=== PATIENT | female | born 2000 | race Hispanic/Latino ===

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

== ENCOUNTER 2019-02-19 18:21 | Emergency (ER) | payer SELFPAY ==
--- NOTE | 2019-02-19 19:42 | ER ---
Nurse's Notes [facility] Name: Nona Lee Age: 18 yrs Sex: Female : 2000 Arrival Date: 02/19/2019 Time: 18:31 Bed 10 Private MD: Diagnosis: Conjunctivitis Presentation: 02/19 18:58 Presenting complaint: Patient states: Has been suffering from allergies today, redness, lp1 swelling, tearing to both eyes. Transition of care: patient was not received from another setting of care. Onset of symptoms was February 19, 2019. Risk Assessment: Do you want to hurt yourself or someone else? Patient reports no desire to harm self or others. Initial Sepsis Screen: Does the patient meet any 2 criteria? No. Patient's initial sepsis screen is negative. Does the patient have a suspected source of infection? No. Patient's initial sepsis screen is negative. Care prior to arrival: None. 18:58 Method Of Arrival: Ambulatory lp1 18:58 Acuity: LUBNA 4 lp1 Triage Assessment: 19:02 General: Appears in no apparent distress. Behavior is calm, cooperative. EENT: Eyes lp1 clear drainage noted to both eyes, reddened . VP STRATEGIC PLANNING: 19:00 LMP 02/05/2019 lp1 Historical: - Allergies: 19:02 No Known Allergies; lp1 - Home Meds: 19:02 Claritin Oral [Active]; Zyrtec Oral [Active]; lp1 - PMHx: 19:02 Asthma; lp1 - PSHx: 19:02 clavicle surgey; Tonsillectomy; lp1 - Immunization history:: Adult Immunizations up to date. - Social history:: Smoking status: Patient/guardian denies using tobacco. - Ebola Screening: : No symptoms or risks identified at this time. Screenin:02 Abuse screen: Denies threats or abuse. Denies injuries from another. Nutritional lp1 screening: No deficits noted. Tuberculosis screening: No symptoms or risk factors identified. Fall Risk None identified. Assessment: 19:45 General: Appears in no apparent distress. comfortable, Behavior is calm, cooperative, aj1 appropriate for age. Pain: Complains of pain in right eye and left eye. Neuro: Level of Consciousness is awake, alert, obeys commands, Oriented to person, place, time, situation. Cardiovascular: Patient's skin is warm and dry. Respiratory: Airway is patent Respiratory effort is even, unlabored, Respiratory pattern is regular, symmetrical. GI: No signs and/or symptoms were reported involving the gastrointestinal system. : No signs and/or symptoms were reported regarding the genitourinary system. EENT: redness and tearing noted to bilateral eyes. Derm: No signs and/or symptoms reported regarding the dermatologic system. Skin is pink, warm \T\ dry. normal. Musculoskeletal: No signs and/or symptoms reported regarding the musculoskeletal system. Circulation, motion, and sensation intact. Vital Signs: 19:00 BP 141 / 80; Pulse 93; Resp 18; Temp 98.2; Pulse Ox 98% on R/A; Weight 58.97 kg; Height lp1 5 ft. 2 in. (157.48 cm); Pain 3/10; 19:00 Body Mass Index 23.78 (58.97 kg, 157.48 cm) lp1 Visual Acuity: 19:45 Left Eye Visual acuity 20/20, ; Right Eye Visual acuity 20/20, ; Without Lenses; aj1 ED Course: 18:31 Patient arrived in ED. mr 19:00 Triage completed. lp1 19:00 Arm band placed on left wrist. lp1 19:18 [facility] Staley [facility]. jr8 19:18 Von Weber MD is Attending Physician. jr8 19:26 Ninoska Simental, NORBERTO is Primary Nurse. aj1 19:45 Patient has correct armband on for positive identification. Bed in low position. aj1 19:45 No provider procedures requiring assistance completed. Patient did not have IV access aj1 during this emergency room visit. Administered Medications: 19:49 Drug: Decadron 10 mg Route: PO; lp1 20:22 Follow up: Response: No adverse reaction aj1 Outcome: 19:41 Discharge ordered by . jr8 20:21 Discharged to home ambulatory. aj1 20:21 Condition: good 20:21 Discharge instructions given to patient, Instructed on discharge instructions, follow up and referral plans. medication usage, Demonstrated understanding of instructions, follow-up care, medications, Prescriptions given X 1. 20:22 Patient left the ED. aj1 Signatures: Ninoska Simental RN RN aj1 Nena Knapp mr Jessica Leigh RN RN lp1 Goyo Staley PA PA jr8
--- NOTE | 2019-02-19 19:42 | EDPHYS ---
Physician Documentation [facility] Name: Nona Lee Age: 18 yrs Sex: Female : 2000 Arrival Date: 02/19/2019 Time: 18:31 Bed 10 Private MD: ED Physician Von Weber HPI: 02/19 19:36 This 18 yrs old Female presents to ER via Ambulatory with complaints of Eye jr8 Swelling, Redness of Eye. 19:36 The patient is experiencing redness, tearing. Onset: The symptoms/episode jr8 began/occurred this morning. Associated signs and symptoms: Pertinent negatives: fever, headache, runny nose. Patient does not utilize any form of vision correction. Pt reports itchiness and redness to BARBARA eyes since this morning. 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 - Social history:: Smoking status: Patient/guardian denies using tobacco. - Ebola Screening: : No symptoms or risks identified at this time. ROS: 19:38 Constitutional: Negative for fever, chills, and weight loss, ENT: Negative for injury, jr8 pain, and discharge, Neck: Negative for injury, pain, and swelling, Cardiovascular: Negative for chest pain, palpitations, and edema, Respiratory: Negative for shortness of breath, cough, wheezing, and pleuritic chest pain, Abdomen/GI: Negative for abdominal pain, nausea, vomiting, diarrhea, and constipation, MS/Extremity: Negative for injury and deformity, Skin: Negative for injury, rash, and discoloration, Neuro: Negative for headache, weakness, numbness, tingling, and seizure. 19:38 Eyes: Positive for itching, redness, Negative for blurry vision, photophobia, vision loss, visual disturbance. Exam: 19:38 Visual Acuity: I have reviewed the nursing documentation. jr8 19:38 Constitutional: This is a well developed, well nourished patient who is awake, alert, and in no acute distress. Head/Face: Normocephalic, atraumatic. ENT: Nares patent. No nasal discharge, no septal abnormalities noted. Tympanic membranes are normal and external auditory canals are clear. Oropharynx with no redness, swelling, or masses, exudates, or evidence of obstruction, uvula midline. Mucous membranes moist. Neck: Trachea midline, no thyromegaly or masses palpated, and no cervical lymphadenopathy. Supple, full range of motion without nuchal rigidity, or vertebral point tenderness. No Meningismus. Chest/axilla: Normal chest wall appearance and motion. Nontender with no deformity. No lesions are appreciated. Cardiovascular: Regular rate and rhythm with a normal S1 and S2. No gallops, murmurs, or rubs. Normal PMI, no JVD. No pulse deficits. Respiratory: Lungs have equal breath sounds bilaterally, clear to auscultation and percussion. No rales, rhonchi or wheezes noted. No increased work of breathing, no retractions or nasal flaring. Abdomen/GI: Soft, non-tender, with normal bowel sounds. No distension or tympany. No guarding or rebound. No evidence of tenderness throughout. 19:38 Eyes: Periorbital structures: appear normal, no abrasion, no cellulitis, no ecchymosis, no erythema, Pupils: equal, round, and reactive to light and accomodation, Extraocular movements: intact throughout, Conjunctiva: chemosis, that is mild, in right eye, in left eye, Corneas: are normal, Lids and lashes: appear normal. Vital Signs: 19:00 BP 141 / 80; Pulse 93; Resp 18; Temp 98.2; Pulse Ox 98% on R/A; Weight 58.97 kg; Height lp1 5 ft. 2 in. (157.48 cm); Pain 3/10; 19:00 Body Mass Index 23.78 (58.97 kg, 157.48 cm) lp1 Visual Acuity: 19:45 Left Eye Visual acuity 20/20, ; Right Eye Visual acuity 20/20, ; Without Lenses; aj1 MDM: 19:21 Patient medically screened. [facility] 19:39 Data reviewed: vital signs, nurses notes, and as a result, I will discharge patient. jr8 Data interpreted: Pulse oximetry: on room air is 98 %. Interpretation: normal. Counseling: I had a detailed discussion with the patient and/or guardian regarding: the historical points, exam findings, and any diagnostic results supporting the discharge/admit diagnosis. 02/19 19:36 Order name: Visual Acuity; Complete Time: 20:16 jr8 Administered Medications: 19:49 Drug: Decadron 10 mg Route: PO; lp1 20:22 Follow up: Response: No adverse reaction aj1 Disposition: 21:08 Co-signature as Attending Physician, Von Weber MD. rn Disposition: 02/19/19 19:41 Discharged to Home. Impression: Conjunctivitis. - Condition is Stable. - Discharge Instructions: Allergic Conjunctivitis, Adult, Bacterial Conjunctivitis, Viral Conjunctivitis. - Prescriptions for Gentamicin 0.3 % Ophthalmic Drops - instill 2 drop by OPHTHALMIC route every 4 hours; 1 bottle. - Medication Reconciliation Form, Thank You Letter, Antibiotic Education form. - Follow up: Private Physician; When: 2 - 3 days; Reason: Recheck today's complaints, Re-evaluation by your physician. - Problem is new. - Symptoms are unchanged. Signatures: Ninoska Simental RN RN aj1 Van Tobin MD MD cha Nieto, Roman, MD MD rn Pena, Laura, RN RN lp1 Goyo Staley PA PA jr8 Corrections: (The following items were deleted from the chart) 20:22 19:41 02/19/2019 19:41 Discharged to Home. Impression: Conjunctivitis. Condition is aj1 Stable. Forms are Medication Reconciliation Form, Thank You Letter, Antibiotic Education, Prescription Opioid Use. Follow up: Private Physician; When: 2 - 3 days; Reason: Recheck today's complaints, Re-evaluation by your physician. Problem is new. Symptoms are unchanged. jr8
[2019-02-19] MEDS ORDERED: dexAMETHasone 4 MG TAB ONE (19:46)
[2019-02-19 22:14] VITALS: BP 141/80; TEMP 98.2; O2SAT 98
== END 2019-02-19 20:22 | disposition home or self-care (01) ==
LOC: ER 18:21
DX: H10.9 Unspecified conjunctivitis (principal); J45.909 Unspecified asthma, uncomplicated
CPT/HCPCS: 99283; J8540

== ENCOUNTER 2020-02-18 09:45 | Emergency (ER) | payer OTHER, SELFPAY ==
--- OUTSIDE RECORDS SUMMARY | 2020-02-18 10:00 | XMS REPORT | Continuity of Care Document ---
:2000 Author Organization [facility] t Address [address] [place] [address] [address] [place] [address] Care Team Providers Name Role Phone Leidy León DO Attending Clinician Problems This patient has no known problems. Allergies, Adverse Reactions, Alerts This patient has no known allergies or adverse reactions. Medications This patient has no known medications. Procedures This patient has no known procedures. Encounters Start End Encounter Admission Attending Care Care Encounter Source Date/Time Date/Time Type Type Clinicians Facility Department ID 2019-07-19 2019-07-19 Emergency Mau [facility] [id number] 21:36:16 23:53:00 Monse Bergman [id number] [place] [id number] [place] [id number] Results This patient has no known results.
[2020-02-18] MEDS ORDERED: NA CHLORIDE 0.9% 1,000 ML ONE (10:42)
[2020-02-18 11:03] LABS: Absolute Lymphocytes (CBC) 1.2 K/uL (0.7-4.9); Basophils % 1.2 % (0-1.3); Hematocrit 42.6 % (36.0-45.0); Lymphocytes % 15.3 % (15.3-44.8); RBC Red Blood Cell Count 4.96 M/uL (3.86-4.86)
[2020-02-18 11:08] LABS: BUN Blood Urea Nitrogen 7 mg/dL (7-18); Bicarbonate 25 mmol/L (21-32); Glucose Level 91 mg/dL (74-106); Potassium 3.6 mmol/L (3.5-5.1); Sodium Level 141 mmol/L (136-145)
--- NOTE | 2020-02-18 12:20 | ER ---
Nurse's Notes [facility] Name: Nona Lee Age: 19 yrs Sex: Female : 2000 Arrival Date: 02/18/2020 Time: 09:47 Bed 14 Private MD: Diagnosis: Anorexia;Dehydration Presentation: 02/17 10:03 Chief complaint: Patient states: has been feeling very week and fainted on Monday, iw Monday and today, states she blacks out for a few seconds, not eating much for past 6 months, restrictive eating, not diagnosed with eating disorder. Coronavirus screen: At this time, the client does not indicate any symptoms associated with coronavirus-19. Ebola Screen: Patient negative for fever greater than or equal to 101.5 degrees Fahrenheit, and additional compatible Ebola Virus Disease symptoms Patient denies exposure to infectious person. Patient denies travel to an Ebola-affected area in the 21 days before illness onset. No symptoms or risks identified at this time. Initial Sepsis Screen: Does the patient meet any 2 criteria? No. Patient's initial sepsis screen is negative. Does the patient have a suspected source of infection? No. Patient's initial sepsis screen is negative. Risk Assessment: Do you want to hurt yourself or someone else? Patient reports no desire to harm self or others. Onset of symptoms was February 15, 2020. 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 - Social history:: Smoking status: Patient denies any tobacco usage or history of. - Family history:: not pertinent. - Hospitalizations: : No recent hospitalization is reported. Screenin:15 Abuse screen: Denies threats or abuse. Denies injuries from another. Nutritional ca1 screening: No deficits noted. Tuberculosis screening: No symptoms or risk factors identified. Fall Risk IV access (20 points). Assessment: 10:15 General: Appears in no apparent distress. comfortable, Behavior is calm, cooperative, ca1 appropriate for age. General:. Pain: Denies pain. Neuro: Level of Consciousness is awake, alert, obeys commands, Oriented to person, place, time, situation, Reports dizziness, since Monday. Cardiovascular: Heart tones S1 S2 present Capillary refill < 3 seconds Patient's skin is warm and dry. Respiratory: Airway is patent Respiratory effort is even, unlabored, Respiratory pattern is regular, symmetrical, Breath sounds are clear bilaterally. GI: Abdomen is flat, non-distended, Bowel sounds present X 4 quads. Abd is soft and non tender X 4 quads. : No signs and/or symptoms were reported regarding the genitourinary system. EENT: No signs and/or symptoms were reported regarding the EENT system. Derm: Skin is intact, is healthy with good turgor, Skin is pink, warm \T\ dry. Musculoskeletal: Circulation, motion, and sensation intact. Capillary refill < 3 seconds. 11:10 Reassessment: Patient appears in no apparent distress at this time. Patient and/or ca1 family updated on plan of care and expected duration. Pain level reassessed. Patient is alert, oriented x 3, equal unlabored respirations, skin warm/dry/pink. 12:00 Reassessment: Patient appears in no apparent distress at this time. Patient and/or ca1 family updated on plan of care and expected duration. Pain level reassessed. Patient is alert, oriented x 3, equal unlabored respirations, skin warm/dry/pink. 13:00 Reassessment: Patient appears in no apparent distress at this time. Patient and/or ca1 family updated on plan of care and expected duration. Pain level reassessed. Patient is alert, oriented x 3, equal unlabored respirations, skin warm/dry/pink. Vital Signs: 10:03 BP 128 / 74; Pulse 70; Resp 16; Temp 98.6; Pulse Ox 100% on R/A; iw 11:10 BP 118 / 73; Pulse 64; Resp 18 S; Pulse Ox 100% on R/A; ca1 12:00 BP 128 / 78; Pulse 63; Resp 15 S; Pulse Ox 100% on R/A; ca1 13:00 BP 121 / 71; Pulse 59; Resp 15 S; Pulse Ox 100% on R/A; ca1 ED Course: 09:47 Patient arrived in ED. ag5 10:07 Triage completed. iw 10:08 Tamanna Ribeiro, RN is Primary Nurse. ca1 10:08 Arm band placed on. iw 10:10 Von Weber MD is Attending Physician. rn 10:15 Patient has correct armband on for positive identification. Bed in low position. Call ca1 light in reach. Side rails up X2. Pulse ox on. NIBP on. Door closed. Noise minimized. Lights dimmed. Warm blanket given. 10:35 No provider procedures requiring assistance completed. Initial lab(s) drawn, by me, ca1 sent to lab. Inserted saline lock: 20 gauge in left antecubital area, using aseptic technique. Blood collected. 13:10 IV discontinued, intact, bleeding controlled, No redness/swelling at site. Pressure ca1 dressing applied. Administered Medications: 10:40 Drug: NS 0.9% 1000 ml Route: IV; Rate: 1000 ml; Site: left antecubital; ca1 12:00 Follow up: Response: No adverse reaction; IV Status: Completed infusion; IV Intake: ca1 1000ml Intake: 12:00 IV: 1000ml; Total: 1000ml. ca1 Outcome: 12:19 Discharge ordered by . rn 13:10 Discharged to home ambulatory, with family. ca1 13:10 Condition: stable 13:10 Discharge instructions given to patient, Instructed on discharge instructions, follow up and referral plans. Demonstrated understanding of instructions, follow-up care. 13:17 Patient left the ED. ca1 Signatures: China León RN RN Von Weber MD MD rn Acob, Cheryl, RN RN ca1 Azar Aranda ag5 Corrections: (The following items were deleted from the chart) 19:44 13:30 IV discontinued, intact, bleeding controlled, No redness/swelling at site. ca1 Pressure dressing applied, ca1
--- NOTE | 2020-02-18 12:20 | EDPHYS ---
Physician Documentation [facility] Name: Nona Lee Age: 19 yrs Sex: Female : 2000 Arrival Date: 02/18/2020 Time: 09:47 Bed 14 Private MD: ED Physician Von Weber HPI: 02/17 11:14 This 19 yrs old Female presents to ER via Ambulatory with complaints of rn General Weakness, Nausea/Vomiting. 11:14 This 19 yrs old Female presents to ER via Ambulatory with complaints of rn General Weakness, anorexia. 11:14 Reports generalized weakness, no vomiting/diarrhea, has not been eating much for 6 rn months, mother states as a result of father teasing her about her weight. Takes in very little calories. Doesn't drink much water. Reports syncope over the weekend. . Severity of symptoms: At their worst the symptoms were moderate in the emergency department the symptoms are unchanged. The patient has not experienced similar symptoms in the past. The patient has not recently seen a physician. 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 - Social history:: Smoking status: Patient denies any tobacco usage or history of. - Family history:: not pertinent. - Hospitalizations: : No recent hospitalization is reported. ROS: 11:14 Constitutional: Negative for fever, chills, +30-40 pound weight loss over 6 months rn Eyes: Negative for injury, pain, redness, and discharge, Cardiovascular: Negative for chest pain, palpitations, and edema, Respiratory: Negative for shortness of breath, cough, wheezing, and pleuritic chest pain, Abdomen/GI: Negative for abdominal pain, diarrhea, and constipation, MS/Extremity: Negative for injury and deformity, Skin: Negative for injury, rash, and discoloration, Neuro: Negative for headache, numbness, tingling, and seizure. Exam: 11:14 Constitutional: This is a well developed, well nourished patient who is awake, alert, rn and in no acute distress. Head/Face: Normocephalic, atraumatic. ENT: dry MM Cardiovascular: Regular rate and rhythm. No pulse deficits. Respiratory: No increased work of breathing, no retractions or nasal flaring. Abdomen/GI: Soft, non-tender Skin: Warm, dry MS/ Extremity: Pulses equal, no cyanosis. Neurovascular intact. Full, normal range of motion. Equal circumference. Neuro: Awake and alert, GCS 15, oriented to person, place, time, and situation. Cranial nerves II-XII grossly intact. Motor strength 5/5 in all extremities. Sensory grossly intact. Cerebellar exam normal. Normal gait. Vital Signs: 10:03 BP 128 / 74; Pulse 70; Resp 16; Temp 98.6; Pulse Ox 100% on R/A; iw 11:10 BP 118 / 73; Pulse 64; Resp 18 S; Pulse Ox 100% on R/A; ca1 12:00 BP 128 / 78; Pulse 63; Resp 15 S; Pulse Ox 100% on R/A; ca1 13:00 BP 121 / 71; Pulse 59; Resp 15 S; Pulse Ox 100% on R/A; ca1 MDM: 10:10 Patient medically screened. rn 12:18 Differential Diagnosis anorexia, malnourishment, dehydration. Data reviewed: vital rn signs, nurses notes, lab test result(s), EKG, and as a result, I will discharge patient. Counseling: I had a detailed discussion with the patient and/or guardian regarding: the historical points, exam findings, and any diagnostic results supporting the discharge/admit diagnosis, lab results, the need for outpatient follow up, to return to the emergency department if symptoms worsen or persist or if there are any questions or concerns that arise at home. Special discussion: I discussed with the patient/guardian in detail that at this point there is no indication for admission to the hospital. It is understood, however, that if the symptoms persist or worsen the patient needs to return immediately for re-evaluation. ED course: Had long discussion regarding anorexia/malnourishment and need for quality caloric intake, given IVF, feels better, normal vitals. . 02/17 10:24 Order name: CBC with Diff; Complete Time: 11:12 rn 02/17 10:24 Order name: Basic Metabolic Panel; Complete Time: 11:12 rn 02/17 10:24 Order name: EKG; Complete Time: 10:25 rn 02/17 11:05 Order name: Urine Dipstick--Ancillary (enter results) bd 02/17 11:05 Order name: Urine --Ancillary (enter results) bd 02/17 10:24 Order name: IV Start; Complete Time: 10:35 rn 02/17 10:24 Order name: Urine Dipstick-Ancillary (obtain specimen); Complete Time: 10:41 rn 02/17 10:24 Order name: Urine Test (obtain specimen); Complete Time: 10:41 rn 02/17 10:24 Order name: EKG - Nurse/Tech; Complete Time: 10:52 rn Administered Medications: 10:40 Drug: NS 0.9% 1000 ml Route: IV; Rate: 1000 ml; Site: left antecubital; ca1 12:00 Follow up: Response: No adverse reaction; IV Status: Completed infusion; IV Intake: ca1 1000ml Disposition: 02/18/20 12:19 Discharged to Home. Impression: Anorexia, Dehydration. - Condition is Stable. - Discharge Instructions: Anorexia Nervosa, Dehydration, Adult, Malnutrition. - Medication Reconciliation Form, Thank You Letter, Antibiotic Education, Prescription Opioid Use form. - Follow up: Private Physician; When: As needed; Reason: Recheck today's complaints, Re-evaluation by your physician. - Problem is an ongoing problem. - Symptoms have improved. Signatures: Dispatcher [employer] EDChina Gonzalez RN RN iw Von Weber MD MD rn AcobTamanna RN RN ca1 Corrections: (The following items were deleted from the chart) 13:17 12:19 02/18/2020 12:19 Discharged to Home. Impression: Anorexia; Dehydration. Condition ca1 is Stable. Forms are Medication Reconciliation Form, Thank You Letter, Antibiotic Education, Prescription Opioid Use. Follow up: Private Physician; When: As needed; Reason: Recheck today's complaints, Re-evaluation by your physician. Problem is an ongoing problem. Symptoms have improved. rn
[2020-02-18 13:54] VITALS: TEMP 98.6; O2SAT 100
[2020-02-18 13:56] VITALS: BP 118/73
[2020-02-18 13:58] LABS: Urine Blood TRACE (NEG); Urine Glucose NEGATIVE (NEG); Urine Protein NEGATIVE (NEG); Urine Specific Gravity 1.025 (1.005-1.030); Urine pH 8.5 (5.0-7.0)
--- NOTE | 2020-02-20 07:09 | EKG ---
Test Date: 2020-02-18 Test Time: 10:50:03 Fly Raiser Lockstitch: BARBARA MEASUREMENT RESULTS: Intervals: Rate: 61 KS: 126 QRSD: 84 QT: 392 QTc: 394 [place]: P: -22 KS: 126 QRS: 79 T: 29 INTERPRETIVE STATEMENTS: Normal sinus rhythm ST abnormality, possible digitalis effect Abnormal ECG No previous ECG available for comparison Electronically Signed On 02-20-20 07:04:22 CDT by Andres Ge
== END 2020-02-18 13:17 | disposition home or self-care (01) ==
LOC: ER 09:45
DX: R63.0 Anorexia (principal); E86.0 Dehydration; F41.9 Anxiety disorder, unspecified
CPT/HCPCS: 36415; 80048; 81003; 81025; 85025; 93005; 96360; 99284; J7030

== ENCOUNTER 2020-03-11 06:33 | Day surgery (SDC) | payer OTHER, SELFPAY ==
[2020-03-09 15:49] LABS: Absolute Lymphocytes (CBC) 2.2 K/uL (0.7-4.9); Basophils % 0.8 % (0-1.3); Hematocrit 41.2 % (36.0-45.0); Lymphocytes % 30.2 % (15.3-44.8); MPV 9.6 fL (7.6-11.3); RBC Red Blood Cell Count 4.75 M/uL (3.86-4.86)
[2020-03-09 16:46] LABS: BUN Blood Urea Nitrogen 8 mg/dL (7-18); Bicarbonate 28 mmol/L (21-32); Glucose Level 79 mg/dL (74-106); Potassium 3.6 mmol/L (3.5-5.1); Sodium Level 140 mmol/L (136-145)
--- OUTSIDE RECORDS SUMMARY | 2020-03-11 06:37 | XMS REPORT | Continuity of Care Document ---
:2000 Author Organization [facility] t Address [address] [place] [address] Care Team Providers Name Role Phone Leidy [...] Facility Department ID 2019-07-19 2019-07-19 Emergency Mau VTJOSE R [id number] 21:36:16 23:53:00 Monse Bergman [id number] [place] [id number] [place] [id number] Results This patient has no known results.
[2020-03-11 06:55] LABS: Specific Gravity 1.025 (1.005-1.030)
[2020-03-11] MEDS ORDERED: Ringers Lactate 1,000 ML IV ONE (06:57)
[2020-03-11] MEDS ORDERED: CEFAZOLIN/SWI 1gm 1 GM/10 ML SYR ONE (06:57)
[2020-03-11] MEDS ORDERED: MIDAZOLAM HCL 2 MG/2 ML INJ ONE ×2 (07:27→08:46)
[2020-03-11] MEDS ORDERED: METHYLENE BLUE 0.5% 10 ML AMP ONE (07:47)
--- NOTE | 2020-03-11 08:27 | RAD REPORT ---
EXAM DESCRIPTION: US - Brst,Preop NL Wire Init w/Guid - 03/11/2020 8:19 am CLINICAL HISTORY: NDL LOC X2 MASSESright breast mass COMPARISON: BREAST/AXILLA, COMPLETE dated 02/14/2020 TECHNIQUE: Patient presents for ultrasound-guided needle localization of 2 previously detailed solid breast masses. Consent was obtained as part of the surgical consent. The procedure was discussed in detail with the patient. Preliminary imaging identified the 2 masses. An approximately 11 millimeter mass is present in the pe riareolar 7 o'clock right breast. An adjacent larger 18 millimeter mass is present in the periareolar 8 o'clock right breast. Right breast was prepped and draped in the usual sterile fashion. Needle localization performed from a lateral approach. The smaller more inferiorly positioned mass was localized first. From a lateral a pproach under direct sonographic visualization the skin and deeper tissues were anesthetized with 1% lidocaine. A 5 centimeter [place] mammo lock needle was advanced under ultrasound guidance. The needle penetrated the lateral aspect of the mass and was extended through the medial margin. Hookwire was se t. Also from a lateral approach the second lesion was localized with skin and deeper tissues anesthetize d with 1% lidocaine. A [place] 5 cm mammo lock needle was advanced. The mass penetrated the lateral mar gin an extended through the medial margin. Hookwire was set. Patient tolerated procedure without difficulty. The patient was transferred to the surgical holding a jseus for pending excisional biopsy. IMPRESSION: Successful ultrasound-guided needle localization of 2 right breast masses as detailed.
[2020-03-11] MEDS ORDERED: KETOROLAC 30 MG/ML INJ ONE (08:45)
[2020-03-11] MEDS ORDERED: FENTANYL CITR 100 MCG/2 ML ONE (08:45)
[2020-03-11] MEDS ORDERED: LIDOCAINE 2% MPF 5 ML VIAL ONE (08:45)
[2020-03-11] MEDS ORDERED: propofoL 200 MG/20 ML VIAL IV ONE (08:45)
[2020-03-11] MEDS ORDERED: ONDANSETRON 4 MG/2 ML VIAL ONE (08:46)
[2020-03-11] MEDS ORDERED: dexAMETHasone 4 MG/ML VIAL ONE (08:46)
--- NOTE | 2020-03-11 09:16 | RAD REPORT ---
EXAM DESCRIPTION: US - Breast Pre Op Wire Additional - 03/11/2020 8:19 am CLINICAL HISTORY: NEEDLE LOC X 2 MASSES, preoperative needle localization of 2 lesions COMPARISON: Breast ultrasound February 13 TECHNIQUE: Patient presents for preoperative ultrasound-guided localization of 2 right breast masses in the periareolar region measuring approximately 11 mm and 18 mm. The localization procedure for both masses detailed in the initial report. IMPRESSION: Right breast needle localization x2. Full procedure detailed in the initial lesion repor t.
--- NOTE | 2020-03-11 10:01 | P.BOP ---
Preoperative diagnosis: tender two right breast masses Postoperative diagnosis: same Primary procedure: 1. Excisional biopsy tender R upper outer breast mass 9 o'clock needle loc Secondary procedure: 2. Excisional biopsy tender R lower outer breast mass 7 o'clock needle loc Sales Marketing Director: Nancy Sultana (Tomasz) Estimated blood loss: <10cc Specimen: masses x 2 Findings: as above Anesthesia: General Complications: None Transferred to: Recovery Room Condition: Good
[2020-03-11 10:23] VITALS: O2SAT 100
--- NOTE | 2020-03-11 10:29 | RAD REPORT ---
EXAM DESCRIPTION: US - Surgical Specimen - 03/11/2020 10:11 am FINDINGS: Sonographic evaluation was performed of the breast biopsy specimen that was localized to t he 7 o'clock periareolar right breast. Specimen contains the mass in question.
--- NOTE | 2020-03-11 10:30 | RAD REPORT ---
EXAM DESCRIPTION: US - Surgical Specimen - 03/11/2020 10:11 am FINDINGS: Sonographic evaluation was performed of the breast biopsy specimen obtained in the 9 o'renée ck region of the periareolar right breast. The specimen contains the mass in question.
[2020-03-11] MEDS ORDERED: NA CHLORIDE 0.9% 1,000 ML ONE (10:34)
--- NOTE | 2020-03-11 10:37 | DS ---
Diagnosis: Tender 2 right breast masses. Procedure: Excisional biopsy of right upper quadrant and right lower quadrant breast masses with nee dle localization. Disposition: Home. Activity: As tolerated, no heavy lifting. Plan: Follow up in my office in 1 week. Call for appointment at [phone]. Keep area dry for 48 miguel rs, then may shower. Keep Steri-Strip intact. Medications: Include Tylenol No.3 q.4 hours p.r.n. pain, Bactrim DS p.o. b.i.d. JUAN CARLOS/OLGA Voice ID: [id number] Report ID: [id number]
--- NOTE | 2020-03-11 10:58 | OP ---
Date of Procedure: 03/11/2020 Surgeon: Angel Burgos MD Icu Tech: Nancy Sultana. Preoperative Diagnosis: Tender 2 right breast masses, enlarging. Postoperative Diagnosis: Tender 2 right breast masses, enlarging. Procedures: 1.Excisional biopsy of tender right upper outer quadrant breast mass approximately 9 o'clock needle localized. 2.Excisional biopsy of tender right lower outer quadrant breast mass approximately 7 o'clock needle localized. Specimen: Masses x2. Anesthesia: General plus local. Indications: This is the case of a female, who comes to us with very tender enlarging masses. She h ad experience with masses before grows, very large. These are starting to grow the same way, increas ing in size monthly. She wants them excised. We used a needle localization by radiologist this morn ing to localize the areas of concern. She understands the benefits, alternatives, and risks of biops y which include, but not limited to infection, bleeding, damage to adjacent structures, anesthesia co mplication, nonhealing wound, chronic tenderness, recurrence, VT, and even . She also understan ds this may not relieve the symptoms. She might need more than one surgical intervention. She under stood, signed a consent. Procedure In Detail: The area of concern was previously marked. The patient went this morning to [facility]. Dr. To was kind enough to put 2 different needles to localize 2 different masses . The patient was brought to the OR making sure the needles were intact. The patient was brought to the operating room and placed in supine position. Anesthesia was done without complication. The ar ea was prepped and draped in the usual sterile fashion. We were careful with the needle to make sure when we touch it, we do not dislodge them. After the area was prepped and draped in sterile fashion , we made an incision on the breast, made an incision large enough to be able to accommodate 2 needle s. Incision was carried down to breast tissue. We went to the 7 o'clock mass first. It was well de lineated mass. The mass was removed with the needle, sent to the radiologist. Then, we went for the right upper quadrant about 9-10 o'clock area. Once again, we found the mass very well delineated an d the needle coming once again through the area. At that moment, we sent that as specimen 2. Area w as irrigated and hemostasis was obtained. The area was covered with a combination of 2-0 chromic and a 4-0 PDS and needles within the specimen. The patient tolerated the procedure well. The area was covered with sterile dressings. BOWEN Voice ID: [id number] Report ID: [id number]
[2020-03-11 11:39] VITALS: BP 124/66; TEMP 97.9
== END 2020-03-11 11:39 | disposition home or self-care (01) ==
LOC: OR 06:33
PROVIDERS: ATTEND Surgery
PROC: 0HBT0ZZ Excision of Right Breast, Open Approach (ICD-10-PCS; principal; 2020-03-11 08:15)
DX: D24.1 Benign neoplasm of right breast (principal); Z20.828 Contact with and (suspected) exposure to other viral communicable diseases
CPT/HCPCS: 85025; 80048; 36415; 81025; 88305; 19286; 76098 ×2; 19285; 19125; 19126; U0002; J2704; J1100; J2250; J3010; J0690; J7120; J7030; J2405

== ENCOUNTER 2020-08-30 21:02 | Emergency (ER) | payer OTHER, SELFPAY ==
--- OUTSIDE RECORDS SUMMARY | 2020-08-30 21:05 | XMS REPORT | Continuity of Care Document ---
:2000 Author Organization [facility] t Address [address] [place] [place] [address] Care Team Providers Name Role Phone Leidy [...] Facility Department ID 2019-07-19 2019-07-19 Emergency Mau [facility] [id number] 21:36:16 23:53:00 Monse Bergman [id number] Petty [id number] [place] [id number] [id number] Results This patient has no known results.
[2020-08-30 21:22] LABS: Urine Blood 3+ (Negative); Urine Glucose Negative (Negative); Urine Protein Negative (Negative); Urine Specific Gravity >=1.030 (1.005-1.030)
[2020-08-30 21:26] LABS: Absolute Lymphocytes (CBC) 1.8 K/uL (0.7-4.9); Basophils % 0.8 % (0-1.3); Hematocrit 37.8 % (36.0-45.0); Lymphocytes % 26.1 % (15.3-44.8); MPV 9.2 fL (7.6-11.3); RBC Red Blood Cell Count 4.44 M/uL (3.86-4.86)
[2020-08-30 21:32] LABS: Protime INR 0.96
[2020-08-30 21:52] LABS: ALT/SGPT 31 U/L (12-78); AST/SGOT 16 U/L (15-37); Albumin 3.8 g/dL (3.4-5.0); Alkaline Phosphatase 102 U/L (45-117); BUN Blood Urea Nitrogen 9 mg/dL (7-18); Bicarbonate 19 mmol/L (21-32); Bilirubin Direct < 0.1 mg/dL (0-0.2); Bilirubin Total 0.3 mg/dL (0.2-1.0); Glucose Level 165 mg/dL (74-106); Magnesium 1.9 mg/dL (1.8-2.4); NT PRO-BNP 57 pg/mL (<125); Protein, Total 6.8 g/dL (6.4-8.2); Sodium Level 139 mmol/L (136-145); Troponin (Emerg Dept Use Only) < 0.02 ng/mL (0.0-0.045)
[2020-08-30 21:52] LABS: Barbiturates NEGATIVE (NEGATIVE); Benzodiazepines NEGATIVE (NEGATIVE); Cocaine NEGATIVE (NEGATIVE); METHAMPHETAM NEGATIVE (NEGATIVE); Methadone NEGATIVE (NEGATIVE); Opiates NEGATIVE (NEGATIVE); Phencyclidine NEGATIVE (NEGATIVE); THC Cannibis POSITIVE (NEGATIVE)
[2020-08-30 21:53] LABS: Potassium 2.9 mmol/L (3.5-5.1)
[2020-08-30 21:59] LABS: Urine Specific Gravity/Preg >1.030 (1.005-1.030)
[2020-08-30] MEDS ORDERED: LORazepam 2 MG/ML VIAL ONE (22:00)
--- NOTE | 2020-08-30 23:11 | ER ---
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 Pt states taking pot browny earlier and is unsure of other ingredients are in there. Coronavirus screen: Client denies travel out of the [place] in the last 14 days. Client presents with at least one sign or symptom that may indicate coronavirus-19. Ebola Screen: Patient negative for fever greater than or equal to 101.5 degrees Fahrenheit, and additional compatible Ebola Virus Disease symptoms Patient denies exposure to infectious person. Risk Assessment: Do you want to hurt yourself or someone else? Patient reports no desire to harm self or others. Onset of symptoms was August 30, 2020. 21:04 Method Of Arrival: EMS: [facility] 21:04 Acuity: LUBNA 3 21:07 Initial Sepsis Screen: Does the patient meet any 2 criteria? HR > 90 bpm. Does the patient have a suspected source of infection? No. Patient's initial sepsis screen is negative. 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 - Social history:: Smoking status: Patient denies any tobacco usage or history of. Screenin:09 Abuse screen: Denies threats or abuse. Denies injuries from another. Nutritional wh screening: No deficits noted. Tuberculosis screening: No symptoms or risk factors identified. Fall Risk None identified. 21:46 VAN Screening: Arm Drift: Patient shows no arm weakness. Visual Disturbance: No visual wh disturbance noted. Aphasia: No aphasia noted. Neglect: No neglect noted. Assessment: 21:10 General: Appears in no apparent distress. Behavior is anxious. Pain: Complains of pain wh in chest Quality of pain is described as pressure. Neuro: Level of Consciousness is awake, alert, obeys commands, Oriented to person, place, time, situation, Appropriate for age. Cardiovascular: Capillary refill < 3 seconds Rhythm is sinus tachycardia. Cardiovascular: Reports palpitations. Respiratory: Airway is patent Respiratory effort is even, unlabored, Respiratory pattern is regular, symmetrical. GI: Abdomen is flat, non-distended. : No signs and/or symptoms were reported regarding the genitourinary system. EENT: No signs and/or symptoms were reported regarding the EENT system. Derm: Skin is intact, is healthy with good turgor, Skin is pink, warm \T\ dry. normal. Musculoskeletal: Circulation, motion, and sensation intact. 21:30 Reassessment: Provider at bedside assessing Pt when Pt C/O left sided weakness, Code Stroke was activated. 21:40 Reassessment: patient sent to CT scan. [facility] 22:00 Reassessment: MD Sosa at bedside assessing Pt. 08/31 00:13 Reassessment: Patient appears in no apparent distress at this time. Patient and/or family updated on plan of care and expected duration. Pain level reassessed. Patient is alert, oriented x 3, equal unlabored respirations, skin warm/dry/pink. Report given to Judit THORNTON. Vital Signs: 08/30 21:07 BP 133 / 82; Pulse 104; Resp 20; Temp 98.2; Pulse Ox 100% ; Weight 54.43 kg; Height 5 wh ft. 2 in. (157.48 cm); 22:00 BP 137 / 67; Pulse 114; Resp 18; Pulse Ox 100% on R/A; 23:00 BP 137 / 66; Pulse 115; Resp 18; Pulse Ox 100% on R/A; 08/31 00:13 BP 124 / 62; Pulse 113; Resp 18; Pulse Ox 100% on R/A; 08/30 21:07 Body Mass Index 21.95 (54.43 kg, 157.48 cm) NIH Stroke Scale Scores: 08/30 21:46 NIHSS Score: 0 ED Course: 21:04 Patient arrived in ED. 21:06 Triage completed. 21:07 Raymundo Rose PA is PHCP. [facility] 21:07 Guanako Sosa MD is Attending Physician. [facility] 21:09 Jayla Brewer, RN is Primary Nurse. 21:10 Patient has correct armband on for positive identification. Bed in low position. Call light in reach. Side rails up X 1. desk monitor on. Pulse ox on. NIBP on. 21:10 Arm band placed on right wrist. 21:15 Inserted saline lock: 22 gauge in right antecubital area, using aseptic technique. [facility] Blood collected. 21:28 No provider procedures requiring assistance completed. [facility] 21:42 XRAY Chest (1 view) In Process Unspecified. EDMS 21:49 CT Stroke Brain w/o Contrast In Process Unspecified. EDMS 23:01 Initiated transfer at [facility] with Anne Marie Dockery. Call was connected to HARDEEP Mann, provider of pt for further questioning regarding the diagnosis. 23:08 Anne Marie Dockery called back with admin approval. The pt is going to [facility] tt3 ER. The accepting physician is Dr. Hawley. Nurse to call report to . Face sheet and MOT faxed to per Anne Marie's request. 08/31 00:36 Patient transferred, IV remains in place. Administered Medications: 08/30 21:59 Drug: Ativan (LORazepam) 1 mg Route: IVP; Site: right antecubital; [facility] 08/31 00:14 Follow up: Response: No adverse reaction; RASS: Alert and Calm (0) 08/30 21:59 Drug: K-Lyte (potassium) Effervescent Tablet 50 mEq Route: PO; [facility] 08/31 00:14 Follow up: Response: No adverse reaction Outcome: 08/30 23:11 ER care complete, transfer ordered by . [facility] 08/31 00:35 Transferred by ground EMS to [facility], Transfer form completed. X-rays sent w/ patient. Note: Report given to [facility] Condition: stable Instructed on the need for transfer. 00:37 Patient left the ED. NIH Stroke Scale - NIH Stroke Score Date: 08/30/2020 Time: 21:46 Total Score = 0 1a. Level of Consciousness (LOC) - 0(Alert) 1b. Level of Consciousness (LOC) (Year \T\ Age) - 0(Both) 1c. LOC Commands (Open \T\ Closes Eyes/Chemist Intern) - 0(Both) 2. Best Gaze (Lateral Gaze Paresis) - 0(Normal) 3. Visual Field Loss - 0(No visual loss) 4. Facial Palsy - 0(Normal) 5a. Left Arm: Motor (10-second hold) - 0(No drift) 5b. Right Arm: Motor (10-second hold) - 0(No drift) 6a. Left Leg: Motor (5-second hold - always test supine) - 0(No drift) 6b. Right Leg: Motor (5-second hold - always test supine) - 0(No drift) 7. Limb Ataxia (finger/nose \T\ heel/ruggiero - test with eyes open) - 0(Absent) 8. Sensory Loss (pinprick arms/legs/face) - 0(Normal) 9. Best Language: Aphasia (description/naming/reading) - 0(No aphasia) 10. Dysarthria (speech clarity - read or repeat words) - 0(Normal) 11. Extinction and Inattention (visual/tactile/auditory/spatial/personal) - 0(No abnormality) Initials: Signatures: Dispatcher [employer] Raymundo Sosa PA PA jmm Habalo, Winsy, RN RN Joseluis Lee RN RN [facility] Ramon Borrero tt3
--- NOTE | 2020-08-30 23:12 | EDPHYS ---
Physician Documentation [facility] Name: Nona Lee Age: 20 yrs Sex: Female : 2000 Arrival Date: 08/30/2020 Time: 21:04 Bed 2 Private MD: ED Physician Guanako Sosa HPI: 08/30 21:07 This 20 yrs old Female presents to ER via EMS with complaints of Palpitations. jmm 21:07 The patient presents with a history of heart racing. Onset: The symptoms/episode jmm began/occurred acutely, at 19:00. Duration: The patient or guardian reports a single episode, that is still ongoing. Modifying factors: The symptoms are aggravated by nothing. The symptoms are alleviated by nothing. This is a 20 year old female with a history of anxiety, asthma that presents to the ED with complaints of chest pressure, palpitations, and tingling/numbness to the left side of her body. Symptoms began at 7 pm. . 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 - Social history:: Smoking status: Patient denies any tobacco usage or history of. ROS: 21:07 Constitutional: Negative for fever, chills, and weight loss. jmm 21:07 Cardiovascular: Positive for chest pain, palpitations. 21:07 Neuro: Positive for tingling. 21:07 All other systems are negative. Exam: 21:07 Head/Face: atraumatic. Eyes: EOMI, no conjunctival erythema appreciated ENT: Moist jmm Mucus Membranes Neck: Trachea midline, Supple Chest/axilla: Normal chest wall appearance and motion. 21:07 Respiratory: Normal respirations, no respiratory distress appreciated Abdomen/GI: Non distended, soft Back: Normal ROM Skin: General appearance color normal MS/ Extremity: Moves all extremities, no obvious deformities appreciated, no edema noted to the lower extremities 21:07 Constitutional: The patient appears alert, awake, anxious. 21:07 Cardiovascular: Rate: tachycardic, Rhythm: regular. 21:07 Neuro: Orientation: is normal, Mentation: is normal, Memory: is normal. 21:07 Psych: Behavior/mood is pleasant, cooperative. Vital Signs: 21:07 BP 133 / 82; Pulse 104; Resp 20; Temp 98.2; Pulse Ox 100% ; Weight 54.43 kg; Height 5 wh ft. 2 in. (157.48 cm); 22:00 BP 137 / 67; Pulse 114; Resp 18; Pulse Ox 100% on R/A; wh 23:00 BP 137 / 66; Pulse 115; Resp 18; Pulse Ox 100% on R/A; 08/31 00:13 BP 124 / 62; Pulse 113; Resp 18; Pulse Ox 100% on R/A; 08/30 21:07 Body Mass Index 21.95 (54.43 kg, 157.48 cm) NIH Stroke Scale Scores: 08/30 21:46 NIHSS Score: 0 MDM: 21:36 Patient medically screened. [facility] 23:07 Data reviewed: vital signs, nurses notes. Counseling: I had a detailed discussion with bessy the patient and/or guardian regarding: the historical points, exam findings, and any diagnostic results supporting the discharge/admit diagnosis, lab results, radiology results, the need to transfer to another facility. ED course: I discussed the patient with Dr. Roberto whom accepted the [facility] neurosurgery. 23:13 ED course: Family requests [facility] for transfer. [facility] 08/30 21:07 Order name: Basic Metabolic Panel; Complete Time: 21:55 08/30 21:07 Order name: CBC with Diff; Complete Time: 21:44 08/30 21:07 Order name: LFT's; Complete Time: 21: 08/30 21:07 Order name: Magnesium; Complete Time: 21:55 08/30 21:07 Order name: NT PRO-BNP; Complete Time: 21:55 08/30 21:07 Order name: PT-INR; Complete Time: 21:59 08/30 21:07 Order name: Troponin (emerg Dept Use Only); Complete Time: 21:55 08/30 21:07 Order name: UDS; Complete Time: 21:55 08/30 21:22 Order name: Urine Dipstick-Ancillary; Complete Time: 21:41 [facility] 08/30 21:45 Order name: Urine --Ancillary (enter results); Complete Time: 22:02 tt3 08/30 21:47 Order name: D-Dimer; Complete Time: 21:59 EDMS 08/30 23:58 Order name: SARS-COV-2 RT PCR; Complete Time: 00:12 EDMS 08/30 21:07 Order name: XRAY Chest (1 view) 08/30 21:07 Order name: EKG; Complete Time: 21:09 08/30 21:07 Order name: Cardiac monitoring; Complete Time: 21:18 08/30 21:07 Order name: EKG - Nurse/Tech; Complete Time: 21:18 08/30 21:07 Order name: IV Saline Lock; Complete Time: 21: 08/30 21:07 Order name: Labs collected and sent; Complete Time: : 08/30 21:07 Order name: O2 Per Protocol; Complete Time: 21: 08/30 21:07 Order name: O2 Sat Monitoring; Complete Time: 21: 08/30 21:07 Order name: Urine Dipstick-Ancillary (obtain specimen); Complete Time: : 08/30 21:07 Order name: Urine Test (obtain specimen); Complete Time: : 08/30 21:37 Order name: CT Stroke Brain w/o Contrast [facility] Administered Medications: 21:59 Drug: Ativan (LORazepam) 1 mg Route: IVP; Site: right antecubital; mg2 08/31 00:14 Follow up: Response: No adverse reaction; RASS: Alert and Calm (0) 08/30 21:59 Drug: K-Lyte (potassium) Effervescent Tablet 50 mEq Route: PO; mg2 08/31 00:14 Follow up: Response: No adverse reaction Disposition: 04:24 Co-signature as Attending Physician, Guanako Sosa MD. [email or web address] Disposition: 08/30/20 23:11 Transfer ordered to [facility]. Diagnosis are Paresthesias, Posterior Fossa Cyst, Cerebellar Mass Effect. - Reason for transfer: Higher level of care. - Accepting physician is Dr. Jean Hawley. - Condition is Stable. - Problem is new. - Symptoms are unchanged. NIH Stroke Scale - NIH Stroke Score Date: 08/30/2020 Time: 21:46 Total Score = 0 1a. Level of Consciousness (LOC) - 0(Alert) 1b. Level of Consciousness (LOC) (Year \T\ Age) - 0(Both) 1c. LOC Commands (Open \T\ Closes Eyes/Able Bodied Tankerman) - 0(Both) 2. Best Gaze (Lateral Gaze Paresis) - 0(Normal) 3. Visual Field Loss - 0(No visual loss) 4. Facial Palsy - 0(Normal) 5a. Left Arm: Motor (10-second hold) - 0(No drift) 5b. Right Arm: Motor (10-second hold) - 0(No drift) 6a. Left Leg: Motor (5-second hold - always test supine) - 0(No drift) 6b. Right Leg: Motor (5-second hold - always test supine) - 0(No drift) 7. Limb Ataxia (finger/nose \T\ heel/ruggiero - test with eyes open) - 0(Absent) 8. Sensory Loss (pinprick arms/legs/face) - 0(Normal) 9. Best Language: Aphasia (description/naming/reading) - 0(No aphasia) 10. Dysarthria (speech clarity - read or repeat words) - 0(Normal) 11. Extinction and Inattention (visual/tactile/auditory/spatial/personal) - 0(No abnormality) Initials: Signatures: Dispatcher [employer] EDWV Raymundo Rose PA PA Jayla Gardiner RN RN Joseluis Lee RN RN [facility] Guanako Sosa MD MD [email or web address] Corrections: (The following items were deleted from the chart) 08/30 21:45 21:41 D-DIMER+COAG.LAB.BRZ ordered. EDMS EDMS 22:48 22:18 CORONAVIRUS+MR.LAB.BRZ ordered. EDMS EDMS 08/31 00:37 08/30 23:11 08/30/2020 23:11 Transfer ordered to [facility]. Diagnosis is Paresthesias; Posterior Fossa Cyst; Cerebellar Mass Effect. Reason for transfer: Higher level of care. Accepting physician is Dr. Jean Hawley. Condition is Stable. Problem is new. Symptoms are unchanged. [facility]
[2020-08-31 01:02] VITALS: TEMP 98.2; O2SAT 100
[2020-08-31 01:06] VITALS: BP 124/62
--- NOTE | 2020-08-31 08:31 | RAD REPORT ---
EXAM DESCRIPTION: RAD - Chest Single View - 08/30/2020 9:42 pm CLINICAL HISTORY: CHEST PAIN Chest pain. COMPARISON: No comparisons FINDINGS: Portable technique limits examination quality. The lungs are grossly clear. The heart is normal in size. Hardware plate noted right clavicle. IMPRESSION: No acute intrathoracic process suspected.
--- NOTE | 2020-08-31 10:47 | EKG ---
Test Date: 2020-08-30 Test Time: 21:03:14 Community Advocate: MEASUREMENT RESULTS: Intervals: Rate: 121 UT: 122 QRSD: 80 QT: 288 QTc: 408 [place]: P: 73 UT: 122 QRS: 87 T: -59 INTERPRETIVE STATEMENTS: Sinus tachycardia ST & T wave abnormality, consider inferior ischemia ST & T wave abnormality, consider anterolateral ischemia Abnormal ECG Compared to ECG 02/18/2020 10:50:03 Possible ischemia now present Sinus rhythm no longer present ST (T wave) deviation still present Electronically Signed On 08-31-20 10:46:35 CDT by Andres Ge
--- NOTE | 2020-08-31 10:47 | EKG ---
Test Date: 2020-08-30 Test Time: 22:28:59 Cost Clerk: MEASUREMENT RESULTS: Intervals: Rate: 109 ID: [id number] QRSD: 106 QT: 356 QTc: 479 [place]: P: 13 ID: [id number] QRS: -65 T: 25 INTERPRETIVE STATEMENTS: Sinus tachycardia Left anterior fascicular block Possible Anterolateral infarct, age undetermined Abnormal ECG Compared to ECG 08/30/2020 21:03:14 Left anterior fascicular block now present Myocardial infarct finding now present ST (T wave) deviation no longer present Possible ischemia no longer present Electronically Signed On 08-31-20 10:46:33 CDT by Andres Ge
--- NOTE | 2020-08-31 11:54 | RAD REPORT ---
EXAM DESCRIPTION: Ct Stroke Brain Wo Cont CLINICAL HISTORY: 20-year-old female with left-sided weakness. COMPARISON: None. TECHNIQUE: CT brain without contrast. This exam was performed according to our departmental dose opt imization program which includes use of automated exposure control, adjustment of the mA and/or kV ac cording to patient size and/or use of iterative reconstruction technique. FINDINGS: Large volume of cystic type hypoattenuation is identified at the level of the posterior fo ssa measuring 7.9 x 4.1 cm in transverse dimension and measuring approximately 5 cm in craniocaudal d imension. The collection is CSF in attenuation. There is mild remodeling of the adjacent calvarium an d small size of the LEFT cerebellum suggesting sequela of congenital injury or arachnoid cyst. Focal evaluation with MRI is recommended. Some mild mass effect on the cerebellum and LEFT perimesencephalic cistern. Additionally, there is descent of the cerebellar tonsils below the level of the foramen magnum by anderson roximately 16 mm suggestive of Chiari malformation. The ventricles, sulci, and cisterns are symmetric and unremarkable. The mckenzie-white matter different iation is preserved. There is no mass effect, midline shift, intra- or extra-axial fluid collection /acute hemorrhage. The osseous structures are unremarkable. The paranasal sinuses and mastoid air cells are clear. IMPRESSION: 1. No acute intracranial abnormalities. 2. Large volume of cystic type hypoattenuation is identified at the level of the posterior fossa me asuring 7.9 x 4.1 cm in transverse dimension and measuring approximately 5 cm in craniocaudal dimensi on. There is mild remodeling of the adjacent calvarium and small size of the LEFT cerebellum suggesti ng sequela of congenital injury or arachnoid cyst. Follow-up evaluation with MRI pre and postcontrast is recommended. 3. Additionally, there is descent of the cerebellar tonsils below the level of the foramen magnum b y approximately 16 mm suggestive of Chiari malformation. Focal evaluation with MRI is recommended. Electronically signed by: Jessica Lundy MD 08/30/2020 10:03 PM CDT Due to temporary technical issues with the PACS/Fluency reporting system, reports are being signed by the in house radiologist without review as a courtesy to ensure prompt reporting. The interpreting r adiologist is fully responsible for the content of the report.
== END 2020-08-31 00:37 | disposition short-term general hospital (02) ==
LOC: ER 21:02
DX: G93.0 Cerebral cysts (principal); G93.89 Other specified disorders of brain; Z20.822 Contact with and (suspected) exposure to COVID-19
CPT/HCPCS: 93005 ×2; 85025; 80048; 36415; 83735; 81025; 85610; 85379; 80076; 80307 ×8; 81003; 84484; 83880; 70450; 71045; U0003; 96374; 99285

== ENCOUNTER 2021-04-21 00:08 | Emergency (ER) | payer SELFPAY ==
--- OUTSIDE RECORDS SUMMARY | 2021-04-21 00:10 | XMS REPORT | Continuity of Care Document ---
:2000 Author Organization [facility] t Address [facility] [place] [address] Care Team Providers Name Role Phone PCP, DOES NOT HAVE A Primary Care Physician Unavailable GABRIEL Attending Clinician Unavailable Gui ALVARADO Attending Clinician Mariaelena RUIZ Attending Clinician Unavailable Leidy León DO Attending Clinician YOHANNES L Admitting Clinician Unavailable Advance Directives Directive Decision Effective Termination Comments Source Date Date Healthcare Agents on N/A Univ ersity FileNameRelation[facility] Agent Medical RelationshipCommunicationMarcleburne community hospital [facility] homel [facility] - Legal [phone] (Mobile) Problems Condition Condition Condition Status Onset Resolution Last Treating Co mments Source Name Details Category Date Date Treatment Clinician Date Numbness Numbness Disease Active Unive rs and and 617 ity of tingling tingling 00:00: [place] in left in left 00 Medical arm arm Branch 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 cyst 00 [place] Numbness Numbness Disease Active Unive rs 5-04 ity of 00:00: [place] 00 Medical Branch 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 00:00: [place] 00 Medical Branch Allergies, Adverse Reactions, Alerts Allergy Allergy Status Severity Reaction(s) Onset Inactive Treating Comm ents Source Name Type Date Date Clinician NO KNOWN Drug Active Univers ALLERGIE Class ity of [facility] [place] [facility] [place] Social History Social Habit Start Date Stop Date Quantity Comments Source Tobacco use and 2020-09-07 2020-09-07 Never used [place] [facility] exposure 00:00:00 00:00:00 Medical Branch Education 2020-09-07 2020-09-07 12 [facility] 00:00:00 00:00:00 Medical Branch Sex Assigned At [birth year] [facility] 00:00:00 00:00:00 Medical Branch Smoking Status Start Date Stop Date Source Never smoker [facility] Medical Branch Medications Ordered Filled Start Stop Current Ordering Indication Dosage Frequency Signature Comments Components Source Medication Medication Date Date Medication? Clinician (SIG) Name Name levETIRAcet Yes [id number] 750mg Take 1 Univers am (KEPPRA) 909 tablet by ity of 750 mg 00:00: mouth 2 [place] tablet 00 (two) Medical times Branch daily. levETIRAcet Yes [id number] 750mg Take 1 Univers am (KEPPRA) 9-09 tablet by ity of 750 mg 00:00: mouth 2 [place] tablet 00 (two) Medical times Branch daily. ondansetron Yes [id number] 4mg Take 1 Univers (ZOFRAN 6-23 tablet by ity of ODT) 4 mg 00:00: mouth [place] disintegrat 00 every 8 Medic al ing tablet (eight) Branch hours as needed for Nausea and Vomiting (N/V). ondansetron Yes [id number] 4mg Take 1 Univers (ZOFRAN 6-23 tablet by ity of ODT) 4 mg 00:00: mouth [place] disintegrat 00 every 8 Medic al ing tablet (eight) Branch hours as needed for Nausea and Vomiting (N/V). acetaminoph Yes [id number] 650mg Take 2 Univers en 325 mg 6-20 tablets by ity of tablet 00:00: mouth [place] 00 every 6 Medical (six) Branch hours as needed for Pain (scale 1-3) or Temp > 38.5 C. acetaminoph Yes [id number] 650mg Take 2 Univers en 325 mg 6-20 tablets by ity of tablet 00:00: mouth [place] 00 every 6 Medical (six) Branch hours as needed for Pain (scale 1-3) or Temp > 38.5 C. Procedures This patient has no known procedures. Encounters Start End Encounter Admission Attending Care Care Encounter Source Date/Time Date/Time Type Type Clinicians Facility Department ID 2021-04-19 2021-04-19 [id number] [facility] 12:11:00 12:11:00 berny FAUSTINy of [facility] [place] [facility] 2021-03-26 2021-03-26 Telephone Gui [facility] [id number] Univers 00:00:00 00:00:00 [facility] [id number] it y of CLEAR [id number] [facility] s BUCKEYE [id number] [place] [address] Branch OFFICE BUILDING 2021-03-16 2021-03-16 Telephone Gui [facility] [id number] [facility] 00:00:00 00:00:00 [facility] [id number] ity of [place] [id number] [facility] [id number] [place] [address] Branch 2020-08-31 2020-08-31 Emergency Elizabeth RUIZ [facility] [address] [facility] 00:51:00 11:46:00 ALBERT 2019-07-19 2019-07-19 Emergency Mau [facility] [id number] 21:36:16 23:53:00 Monse Bergman [id number] [place] [id number] [place] [id number] Results This patient has no known results.
[2021-04-21 01:22] LABS: Absolute Lymphocytes (CBC) 2.7 K/uL (0.7-4.9); Hematocrit 38.8 % (36.0-45.0); Lymphocytes % 30.8 % (15.3-44.8); MPV 9.1 fL (7.6-11.3); RBC Red Blood Cell Count 4.57 M/uL (3.86-4.86)
[2021-04-21 01:28] LABS: BUN Blood Urea Nitrogen 9 mg/dL (7-18); Bicarbonate 25 mmol/L (21-32); Glucose Level 107 mg/dL (74-106); Potassium 3.4 mmol/L (3.5-5.1); Sodium Level 142 mmol/L (136-145)
[2021-04-21] MEDS ORDERED: POTASSIUM CL SA 10 MEQ TAB PO ONE (01:36)
[2021-04-21 01:38] LABS: Urine Blood Negative (Negative); Urine Glucose Negative (Negative); Urine Protein Negative (Negative)
--- NOTE | 2021-04-21 02:05 | EDPHYS ---
Physician Documentation [facility] Name: Nona Lee Age: 20 yrs Sex: Female : 2000 Arrival Date: 04/21/2021 Time: 00:12 Bed 6 Private MD: BENITO Physician Van Tobin HPI: 04/21 01:06 This 20 yrs old Female presents to ER via EMS with complaints of seizure. jr8 01:06 This is a 20-year-old female that presented to the emergency room with onset of seizure jr8 just prior to arrival. Patient has a history of focal seizures and is currently on Keppra twice daily for them. 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 Patient stated that she will occasionally have breakthrough seizure but tonight mother stated that the seizure was different. Stated that she had focal shaking followed by grand mal like activity. Patient's mother also stated that she had mild postictal stage. Patient now back to baseline and without any complaints. Denies recent infections, trauma, headache or other neurologic findings.. 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 - Social history:: Smoking status: Patient denies any tobacco usage or history of. Patient/guardian denies using alcohol, street drugs. ROS: 01:06 Eyes: Negative for injury, pain, redness, and discharge, ENT: Negative for injury, jr8 pain, and discharge, Neck: Negative for injury, pain, and swelling, Cardiovascular: Negative for chest pain, palpitations, and edema, Respiratory: Negative for shortness of breath, cough, wheezing, and pleuritic chest pain, Abdomen/GI: Negative for abdominal pain, nausea, vomiting, diarrhea, and constipation, Back: Negative for injury and pain, MS/Extremity: Negative for injury and deformity, Skin: Negative for injury, rash, and discoloration. 01:06 Neuro: Positive for seizure activity. Exam: :06 Constitutional: This is a well developed, well nourished patient who is awake, alert, jr8 and in no acute distress. Eyes: Pupils equal round and reactive to light, extra-ocular motions intact. Lids and lashes normal. Conjunctiva and sclera are non-icteric and not injected. Cornea within normal limits. Periorbital areas with no swelling, redness, or edema. ENT: Nares patent. No nasal discharge, no septal abnormalities noted. Tympanic membranes are normal and external auditory canals are clear. Oropharynx with no redness, swelling, or masses, exudates, or evidence of obstruction, uvula midline. Mucous membranes moist. Neck: Trachea midline, no thyromegaly or masses palpated, and no cervical lymphadenopathy. Supple, full range of motion without nuchal rigidity, or vertebral point tenderness. No Meningismus. Cardiovascular: Regular rate and rhythm with a normal S1 and S2. No gallops, murmurs, or rubs. Normal PMI, no JVD. No pulse deficits. Respiratory: Lungs have equal breath sounds bilaterally, clear to auscultation and percussion. No rales, rhonchi or wheezes noted. No increased work of breathing, no retractions or nasal flaring. Abdomen/GI: Soft, non-tender, with normal bowel sounds. No distension or tympany. No guarding or rebound. No evidence of tenderness throughout. Back: No spinal tenderness. No costovertebral tenderness. Full range of motion. Skin: Warm, dry with normal turgor. Normal color with no rashes, no lesions, and no evidence of cellulitis. MS/ Extremity: Pulses equal, no cyanosis. Neurovascular intact. Full, normal range of motion. Neuro: Awake and alert, GCS 15, oriented to person, place, time, and situation. Cranial nerves II-XII grossly intact. Motor strength 5/5 in all extremities. Sensory grossly intact. Cerebellar exam normal. Normal gait. Vital Signs: 00:15 BP 137 / 77; Pulse 90; Resp 20 S; Temp 97.6(O); Pulse Ox 100% on R/A; Weight 56.7 kg bb (R); Height 5 ft. 2 in. (157.48 cm) (R); Pain 0/10; 01:38 BP 109 / 63; Pulse 72; Resp 16 S; Pulse Ox 99% on R/A; as6 01:39 BP 106 / 63; Pulse 63; Resp 16; Pulse Ox 100% on R/A; tw5 00:15 Body Mass Index 22.86 (56.70 kg, 157.48 cm) bb MDM: 00:16 Patient medically screened. 8 01:06 Data reviewed: vital signs, nurses notes, lab test result(s). Data interpreted: Pulse jr8 oximetry: on room air is 100 %. Interpretation: normal. Counseling: I had a detailed discussion with the patient and/or guardian regarding: the historical points, exam findings, and any diagnostic results supporting the discharge/admit diagnosis, lab results, the need for outpatient follow up, a neurologist. 02:04 ED course: Patient has remained hemodynamically stable and without seizure. Will jr8 discharge home to continue her Keppra and to follow-up with her neurologist. Knows to come back if she had worsening point time. Patient will also be with family for close observation of the next 24 to 48 hours.. 04/21 00:43 Order name: CBC with Diff; Complete Time: 01:34 jr8 04/21 00:43 Order name: Basic Metabolic Panel; Complete Time: 01:34 8 04/21 00:43 Order name: Urine Microscopic Only [facility] 04/21 01:37 Order name: Urine Dipstick-Ancillary; Complete Time: 02:04 EDIA 04/21 01:38 Order name: Urine --Ancillary (enter results) [facility] 04/21 01:39 Order name: Urine --Ancillary [facility] 04/21 00:43 Order name: IV; Complete Time: 00:45 jr8 04/21 00:43 Order name: Urine Dipstick-Ancillary (obtain specimen); Complete Time: 00:49 [facility] 04/21 00:43 Order name: Urine Test (obtain specimen); Complete Time: 00:50 jr8 Administered Medications: 01:38 Drug: Potassium Chloride 20 mEq Route: PO; tw5 02:03 Follow up: Response: No adverse reaction as6 Disposition: 07:03 Co-signature as Attending Physician, Van Tobin MD I agree with the assessment and karishma plan of care. Disposition Summary: 04/21/21 02:05 Discharge Ordered Location: Home jr8 Problem: new jr8 Symptoms: have improved jr8 Condition: Stable jr8 Diagnosis - Other seizures jr8 Followup: jr8 - With: Private Physician - When: 2 - 3 days - Reason: Recheck today's complaints, Continuance of care, Re-evaluation by your physician Discharge Instructions: - Discharge Summary Sheet jr8 - Seizure, Adult jr8 Forms: - Medication Reconciliation Form jr8 - Thank You Letter jr8 - Antibiotic Education jr8 - Prescription Opioid Use jr8 Signatures: Dispatcher [employer] EDVan Arcos MD MD cha Ballard, Brenda, RN RN Goyo Vazquez PA PA jr8 Bernice Contreras tw5 Guzman Elkins RN as6
--- NOTE | 2021-04-21 02:05 | ER ---
Nurse's Notes [facility] Name: Nona Lee Age: 20 yrs Sex: Female : 2000 Arrival Date: 04/21/2021 Time: 00:12 Bed 6 Private MD: Diagnosis: Other seizures Presentation: 04/21 00:15 Chief complaint: EMS states: they were toned out for report of pt having a seizure at bb home pt had brain surgery in November for a tumor this is the first time she has had a seizure since then. Coronavirus screen: At this time, the client does not indicate any symptoms associated with coronavirus-19. Ebola Screen: No symptoms or risks identified at this time. Initial Sepsis Screen: Does the patient meet any 2 criteria? No. Patient's initial sepsis screen is negative. Does the patient have a suspected source of infection? No. Patient's initial sepsis screen is negative. Risk Assessment: Do you want to hurt yourself or someone else? Patient reports no desire to harm self or others. Onset of symptoms was April 21, 2021. 00:15 Method Of Arrival: EMS: [facility] 00:15 Acuity: LUBNA 3 00:15 Care prior to arrival: Glucose check: 113. 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 - Social history:: Smoking status: Patient denies any tobacco usage or history of. Patient/guardian denies using alcohol, street drugs. Screenin:29 Abuse screen: Denies threats or abuse. Nutritional screening: No deficits noted. as6 Tuberculosis screening: No symptoms or risk factors identified. Fall Risk Secondary diagnosis (15 points) seizures, Total Richards Fall Scale indicates No Risk (0-24 pts). Assessment: 00:27 General: Appears in no apparent distress. comfortable, Behavior is calm, cooperative. as6 Pain: Denies pain. Neuro: Level of Consciousness is awake, alert, obeys commands, Oriented to person, place, time, situation, Moves all extremities. Full function. Cardiovascular: Capillary refill < 3 seconds Patient's skin is warm and dry. Respiratory: Airway is patent Trachea midline Respiratory effort is even, unlabored, Respiratory pattern is regular, symmetrical, Breath sounds are clear bilaterally. Derm: Skin is intact, is healthy with good turgor. 01:39 Reassessment: Patient states feeling better. Patient states symptoms have improved. tw5 Pain: Denies pain. Vital Signs: 00:15 BP 137 / 77; Pulse 90; Resp 20 S; Temp 97.6(O); Pulse Ox 100% on R/A; Weight 56.7 kg bb (R); Height 5 ft. 2 in. (157.48 cm) (R); Pain 0/10; 01:38 BP 109 / 63; Pulse 72; Resp 16 S; Pulse Ox 99% on R/A; as6 01:39 BP 106 / 63; Pulse 63; Resp 16; Pulse Ox 100% on R/A; tw5 00:15 Body Mass Index 22.86 (56.70 kg, 157.48 cm) bb ED Course: 00:12 Patient arrived in ED. as6 00:16 Goyo Staley PA is PHCP. jr8 00:16 Van Tobin MD is Attending Physician. jr8 00:17 Triage completed. bb 00:17 Arm band placed on Patient placed in an exam room, on a stretcher, on cardiac nurse, bb on pulse oximetry, seizure precautions implemented. 00:21 Guzman Elkins RN is Primary Nurse. as6 00:21 Inserted saline lock: 20 gauge in right antecubital area, using aseptic technique. as6 Blood collected. 00:29 Placed in gown. Bed in low position. Call light in reach. Side rails up X2. Adult w/ as6 patient. Seizure precautions initiated. monitor technician on. Pulse ox on. NIBP on. Warm blanket given. 01:42 Urine --Ancillary (enter results) Sent. tw5 02:16 No provider procedures requiring assistance completed. IV discontinued, intact, as6 bleeding controlled, No redness/swelling at site. Pressure dressing applied. Administered Medications: 01:38 Drug: Potassium Chloride 20 mEq Route: PO; tw5 02:03 Follow up: Response: No adverse reaction as6 Outcome: 02:05 Discharge ordered by . won 02:16 Discharged to home ambulatory, with family. as6 02:16 Condition: stable 02:16 Discharge instructions given to patient, Instructed on discharge instructions, follow up and referral plans. Demonstrated understanding of instructions, follow-up care. 02:17 Patient left the ED. as6 Signatures: Milli Spears RN RN Goyo Vazquez PA PA jr8 Bernice Contreras tw5 Guzman Elkins RN RN as6
[2021-04-21 02:22] LABS: Urine Bacteria <20 /HPF (<20); Urine RBC <5 /HPF (NONE SEEN); Urine Urothelial Cells <5 /HPF (NONE SEEN)
[2021-04-21 02:37] VITALS: TEMP 97.6
[2021-04-21 02:40] VITALS: BP 106/63; O2SAT 100
== END 2021-04-21 02:17 | disposition home or self-care (01) ==
LOC: ER 00:08
DX: R56.9 Unspecified convulsions (principal)
CPT/HCPCS: 36415; 80048; 81003; 81015; 81025; 85025; 99284

== ENCOUNTER 2022-01-08 21:26 | Emergency (ER) | payer SELFPAY ==
--- OUTSIDE RECORDS SUMMARY | 2022-01-08 21:29 | XMS REPORT | Continuity of Care Document ---
:2000 Author Organization [facility] t Address [address] [place] [place] [address] Care Team Providers Name Role Phone Luis Eduardo Myers DO Primary Care Physician JEANNINE SPEARS Attending Clinician Unavailable FELICITAS KHANNA Attending Clinician Unavailable Felicitas Khanna MD Attending Clinician ALBERT RUIZ Attending Clinician Unavailable Monse León DO Attending Clinician DEVIN SHEFFIELD Admitting Clinician Unavailable Payers Payer Name Policy Type Policy Number Effective Date Expiration Date S ource Problems Condition Condition Condition Status Onset Resolution Last Treating Co mments Source Name Details Category Date Date Treatment Clinician Date Seizure-li Seizure-li Disease Active U fracisco brock 4-11 ity of activity activity 00:00: [place] 00 Medical Branch Seizure Seizure Disease Active Univers disorder disorder 3-07 ity of 00:00: [place] 00 Medical Branch Numbness Numbness Disease Active Unive rs and and 6-17 ity of tingling tingling 00:00: [place] in left in left 00 Medical arm arm Branch 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:00: Alex s cyst cyst Medical Branch Numbness Numbness Disease Active Unive rs 5-04 ity of 00:00: [place] [facility] 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 00:00: [place] [facility] Allergies, Adverse Reactions, Alerts Allergy Allergy Status Severity Reaction(s) Onset Inactive Treating Comm ents Source Name Type Date Date Clinician NO KNOWN Drug Active Univers ALLERGIE Class ity of S [facility] [place] [facility] Social History Social Habit Start Date Stop Date Quantity Comments Source History SDOH University o f Alcohol Std [place] [facility] Drinks [facility] History SDOH University o f Alcohol Binge [place] [facility] al [facility] History SDPA University o f Alcohol Comment [place] Med ical [facility] Exposure to 2021-12-14 2021-12-24 Not sure [facility] SARS-CoV-2 00:00:00 15:02:00 [facility] (event) Branch Alcohol intake 2021-12-24 2021-12-24 Lifetime University of 00:00:00 00:00:00 non-drinker [facility] (finding) Branch Tobacco use and 2021-12-06 2021-12-06 Smokeless tobacco Un iversity of exposure 00:00:00 00:00:00 non-user [facility] [place] [facility] History SDOH 2021-09-10 2021-09-10 1 University o f Alcohol Frequency 00:00:00 00:00:00 [facility] edical Branch Education 2020-09-07 2020-09-07 12 [facility] 00:00:00 00:00:00 [facility] [place] [facility] Sex Assigned At [birth year] Universit y of 00:00:00 00:00:00 [facility] [place] [facility] Smoking Status Start Date Stop Date Source Never smoked tobacco [facility] Medications Ordered Filled Start Stop Current Ordering Indication Dosage Frequency Signature Comments Components Source Medication Medication Date Date Medication? Clinician (SIG) Name Name levETIRAcet 2021- No 750mg Take 750 Univers am (KEPPRA) 12-24 08-19 mg by ity of 750 mg 15:54: 00:00 mouth in [place] tablet 35 :00 the Medical morning Branch and 750 mg in the evening. levETIRAcet Yes [id number] 1000mg Take 1 Univers am (KEPPRA) 8-19 tablet by ity of 1,000 mg 00:00: mouth in [place] tablet 00 the Medical morning Branch and 1 tablet in the evening. levETIRAcet 2021-0 Yes [id number] 1000mg Take 1 Univers am (KEPPRA) 8-19 tablet by ity of 1,000 mg 00:00: mouth in [place] tablet 00 the Medical morning Branch and 1 tablet in the evening. levETIRAcet 2021-0 Yes [id number] 1000mg Take 1 Univers am (KEPPRA) 8-19 tablet by ity of 1,000 mg 00:00: mouth in [place] tablet 00 the Medical morning Branch and 1 tablet in the evening. SERTraline 2021-0 Yes [id number] 25mg Take 1 U nivers 25 mg 8-01 tablet by ity of tablet 00:00: mouth in [place] 00 the Medical morning. Branch SERTraline 2021-0 Yes [id number] 25mg Take 1 U nivers 25 mg 8-01 tablet by ity of tablet 00:00: mouth in [place] 00 the Medical morning. Branch SERTraline 2021-0 Yes [id number] 25mg Take 1 U nivers 25 mg 8-01 tablet by ity of tablet 00:00: mouth in [place] 00 the Medical morning. Branch ondansetron 2020-0 Yes [id number] 4mg Take 1 Univers (ZOFRAN 6-23 tablet by ity of ODT) 4 mg 00:00: mouth [place] disintegrat 00 every 8 Medic al ing tablet (eight) Branch hours as needed for Nausea and Vomiting (N/V). ondansetron 2020-0 Yes [id number] 4mg Take 1 Univers (ZOFRAN 6-23 tablet by ity of ODT) 4 mg 00:00: mouth [place] disintegrat 00 every 8 Medic al ing tablet (eight) Branch hours as needed for Nausea and Vomiting (N/V). ondansetron 2020-0 Yes [id number] 4mg Take 1 Univers (ZOFRAN 6-23 tablet by ity of ODT) 4 mg 00:00: mouth [place] disintegrat 00 every 8 Medic al ing tablet (eight) Branch hours as needed for Nausea and Vomiting (N/V). acetaminoph 2020-0 Yes [id number] 650mg Take 2 Univers en 325 mg 6-20 tablets by ity of tablet 00:00: mouth [place] 00 every 6 Medical (six) Branch hours as needed for Pain (scale 1-3) or Temp > 38.5 C. acetaminoph 2020-0 Yes [id number] 650mg Take 2 Univers en 325 mg 6-20 tablets by ity of tablet 00:00: mouth [place] 00 every 6 Medical (six) Branch hours as needed for Pain (scale 1-3) or Temp > 38.5 C. acetaminoph 2020-0 Yes [id number] 650mg Take 2 Univers en 325 mg 6-20 tablets by ity of tablet 00:00: mouth [place] 00 every 6 Medical (six) Branch hours as needed for Pain (scale 1-3) or Temp > 38.5 C. Immunizations Ordered Filled Immunization Date Status Comments [facility] e Immunization Name Name Influenza Virus 2021-08-20 Completed Universit y of Vaccine Quad IM, 00:00:00 [facility] dical Preserv and ABX Branch Free 6 MO-64 YRS Influenza Virus 2021-08-20 Completed Universit y of Vaccine [place] IM, 00:00:00 [place] Me dical Preserv and ABX Branch Free 6 MO-64 YRS Influenza Virus 2021-08-20 Completed Universit y of Vaccine Quad IM, 00:00:00 [place] Me dical Preserv and ABX Branch Free 6 MO-64 YRS Vital Signs Vital Name Observation Time Observation Value Comments Source Systolic blood 2021-12-24 20:21:00 107 mm[Hg] Univer sity of pressure [facility] [place] [facility] Diastolic blood 2021-12-24 20:21:00 66 mm[Hg] Unive [facility] Heart rate 2021-12-24 20:21:00 73 /min [facility] Body temperature 2021-12-24 20:21:00 36.83 Jenni Univ [facility] Body height 2021-12-24 20:21:00 154.9 cm [facility] Body weight 2021-12-24 20:21:00 54.522 kg [facility] BMI 2021-12-24 20:21:00 22.71 kg/m2 [facility] Oxygen saturation in 2021-12-24 20:21:00 100 /min [facility] Arterial blood by [facility] Pulse oximetry Branch Procedures This patient has no known procedures. Encounters Start End Encounter Admission Attending Care Care Encounter Source Date/Time Date/Time Type Type Clinicians Facility Department ID 2022-01-27 2022-01-27 Outpatient JEANNINE MUÑIZ [facility] [id number] Univers 14:40:00 14:40:00 [id number] [facility] 2022-01-06 2022-01-06 Outpatient R JEY [facility] [id number] [facility] 08:00:00 08:00:00 RUIQING [id number] [facility] 2022-01-03 2022-01-03 Telephone [facility] [id number] Univers 00:00:00 00:00:00 [place]ui[place] L SPECIALTY [id number] ity of [id number] [id number] Md fabian [address] 2021-12-24 2021-12-24 [facility] [id number] Univers 15:30:00 16:02:43 Visit Ruiqing L SPECIALTY [id number] it[id number] [phone] Md xenia[address] 2021-12-24 2021-12-24 [facility] [id number] [facility] 00:00:00 00:00:00 [place] L SPECIALTY [id number] [id number] [id number] Md xneia[address] 2020-08-31 2020-08-31 Emergency Elizabeth RUIZ [facility] [id number] [facility] 00:51:00 11:46:00 ALBERT 2019-07-19 2019-07-19 Emergency [facility] [id number] 21:36:16 23:53:00 Monse Bergman [id number] [place] [id number] [place] [id number] [id number] Results This patient has no known results.
[2022-01-08 22:05] LABS: Absolute Lymphocytes (CBC) 2.2 K/uL (0.7-4.9); Hematocrit 38.5 % (36.0-45.0); Lymphocytes % 30.1 % (15.3-44.8); MCV 87.6 fL (80-100); MPV 9.1 fL (7.6-11.3)
[2022-01-08] MEDS ORDERED: NA CHLORIDE 0.9% 1,000 ML ONE (22:13)
[2022-01-08] MEDS ORDERED: LEVETIRACETAM 500 MG/5 ML VIAL IV ONE (22:14)
[2022-01-08] MEDS ORDERED: NA CHLORIDE 0.9% 100 ML ONE (22:16)
[2022-01-08 22:20] LABS: Protime INR 0.97
[2022-01-08 22:22] LABS: Urine Blood Negative (Negative); Urine Glucose Negative (Negative); Urine Protein Negative (Negative); Urine Specific Gravity >=1.030 (1.005-1.030)
[2022-01-08 22:31] LABS: ALT/SGPT 28 U/L (12-78); AST/SGOT 15 U/L (15-37); Albumin 3.7 g/dL (3.4-5.0); Alkaline Phosphatase 100 U/L (45-117); BUN Blood Urea Nitrogen 11 mg/dL (7-18); Bicarbonate 27 mmol/L (21-32); Bilirubin Direct 0.1 mg/dL (0-0.2); Bilirubin Total 0.4 mg/dL (0.2-1.0); Glomerular Filtration Rate 132 ml/min (=/>90); Glucose Level 96 mg/dL (74-106); Potassium 3.5 mmol/L (3.5-5.1); Protein, Total 6.7 g/dL (6.4-8.2); Sodium Level 141 mmol/L (136-145)
[2022-01-08 22:38] LABS: Barbiturates NEGATIVE (NEGATIVE); Benzodiazepines NEGATIVE (NEGATIVE); Cocaine NEGATIVE (NEGATIVE); METHAMPHETAM NEGATIVE (NEGATIVE); Methadone NEGATIVE (NEGATIVE); Opiates NEGATIVE (NEGATIVE); Phencyclidine NEGATIVE (NEGATIVE); THC Cannibis NEGATIVE (NEGATIVE)
--- NOTE | 2022-01-08 22:56 | RAD REPORT ---
EXAM DESCRIPTION: CT - Head Brain Wo Cont - 01/08/2022 10:45 pm CLINICAL HISTORY: Seizure disorder, history of tumor COMPARISON: <Comparisons> TECHNIQUE: All CT scans are performed using dose optimization technique as appropriate and may inclu de automated exposure control or mA/KV adjustment according to patient size. FINDINGS: No intracranial hemorrhage, hydrocephalus or extra-axial fluid collection.No areas of brai n edema or evidence of midline shift. Surgical changes from left occipital craniotomy. Arachnoid cyst versus postoperative changes along the left occipital lobe is unchanged. Chiari 1 malformation. The paranasal sinuses and mastoids are clear.\ IMPRESSION: No acute intracranial abnormality. No significant change compared with 08/30/2020.
--- NOTE | 2022-01-08 23:12 | ER ---
Nurse's Notes [facility] Name: Nona Lee Age: 21 yrs Sex: Female : 2000 Arrival Date: 01/08/2022 Time: 21:28 Bed 5 Private MD: Diagnosis: Epileptic seizures related to external causes;Epileptic seizures related to external causes, not intractable Presentation: 01/08 21:31 Chief complaint: Parent and/or Guardian states: Couple seizures today with last one ke1 lasting around 20 mn. Coronavirus screen: Vaccine status: Patient reports receiving the 2nd dose of the covid vaccine. Ebola Screen: No symptoms or risks identified at this time. Initial Sepsis Screen: Does the patient meet any 2 criteria? No. Patient's initial sepsis screen is negative. Does the patient have a suspected source of infection? No. Patient's initial sepsis screen is negative. Risk Assessment: Do you want to hurt yourself or someone else? Patient reports no desire to harm self or others. Onset of symptoms was January 08, 2022 at 17:00. 21:31 Method Of Arrival: EMS: [facility] 21:31 Acuity: LUBNA 3 ke1 21:40 Care prior to arrival: Medication(s) given: Ativan 2 mg IV at 2054. ke1 Triage Assessment: 21:34 General: Appears in no apparent distress. Behavior is flat, unable to speak. Pain: ke1 Denies pain. EENT: Oral mucosa is moist. EENT:. Neuro: Level of Consciousness is awake, alert, Oriented to person, place, time, situation. Cardiovascular: Rhythm is sinus rhythm. Respiratory: Airway is patent Trachea midline Respiratory effort is even, unlabored, Respiratory pattern is regular, symmetrical. GI: Abdomen is flat. Derm: Skin is intact. Musculoskeletal: Range of motion: intact in all extremities. Historical: - Allergies: 21:33 No Known Allergies; ke1 - PMHx: 21:33 Anxiety; Asthma; BRAIN TUMOR; Breast tumors; ke1 - PSHx: 21:33 brain surgery; Lumpectomy of breast; ke1 - Immunization history:: Adult Immunizations Client reports receiving the 2nd dose of the Covid vaccine. - Social history:: Smoking status: Patient denies any tobacco usage or history of. - Family history:: not pertinent. Screenin:37 Abuse screen: Denies threats or abuse. Nutritional screening: No deficits noted. ke1 Tuberculosis screening: No symptoms or risk factors identified. Fall Risk No fall in past 12 months (0 pts). Secondary diagnosis (15 points) seizures, IV access (20 points). Ambulatory Aid- None/Bed Rest/Nurse Assist (0 pts). Gait- Normal/Bed Rest/Wheelchair (0 pts) Mental Status- Oriented to own ability (0 pts). Total Richards Fall Scale indicates Low Risk Score (25-44 pts). Fall prevention measures have been instituted. Side Rails Up X 2 Placed close to Nursing Station Frequent Obs/Assesments occuring Family Present and informed to notify staff if they need to leave bedside As available Patient and Family Educated on Fall Prevention Program and strategies. Assessment: 22:24 Reassessment: Regained control of her voice, able to speak now Patient states symptoms ke1 have improved. 23:30 Reassessment: Patient denies pain at this time. Patient states feeling better. Patient ke1 states symptoms have improved. Vital Signs: 21:31 BP 113 / 68; Pulse 79; Resp 23; Temp 98.6; Pulse Ox 100% on R/A; Weight 52.16 kg; ke1 Height 5 ft. 2 in. (157.48 cm); 22:25 BP 100 / 60; Pulse 69; Resp 18; Pulse Ox 99% ; ke1 21:31 Body Mass Index 21.03 (52.16 kg, 157.48 cm) ke1 ED Course: 21:28 Patient arrived in ED. ds4 21:30 Liang Gomez, RN is Primary Nurse. ke1 21:33 Triage completed. ke1 21:37 Fall risk band placed. Placed in gown. Bed in low position. Call light in reach. Side ke1 rails up X 1. Side rails up X2. Adult w/ patient. Seizure precautions initiated. 21:39 Arm band placed on left wrist. ke1 21:40 Van Tobin MD is Attending Physician. karishma 21:43 Maintain EMS IV. Dressing intact. Site clean \T\ dry. Gauge \T\ site: 20 G L AC. ke 1 21:47 EKG done, by ED staff, reviewed by Van Tobin MD. zm 22:47 CT Head Brain wo Cont In Process Unspecified. EDMS 23:28 No provider procedures requiring assistance completed. IV discontinued. ke1 Administered Medications: 22:10 Drug: NS 0.9% 1000 ml Route: IV; Rate: 1 bolus; Site: left antecubital; ke1 23:15 Follow up: IV Status: Completed infusion ke1 22:10 Drug: Keppra (levETIRAcetam) 1000 mg Route: IV; Rate: per protocol; Site: left ke1 antecubital; 22:25 Follow up: Response: No adverse reaction; IV Status: Completed infusion ke1 Medication: 23:28 VIS not applicable for this client. ke1 Outcome: 23:11 Discharge ordered by MD. schwarz 23:28 Discharged to home ambulatory. ke1 23:28 Condition: good 23:28 Discharge instructions given to patient. 23:30 Patient left the ED. ke1 Signatures: Dispatcher [employer] EDVan Arcos MD MD cha Swanson, Donovan ds4 Liang Gomez RN RN ke1 Estefany Burgos
--- NOTE | 2022-01-08 23:12 | EDPHYS ---
Physician Documentation [facility] Name: Nona Lee Age: 21 yrs Sex: Female : 2000 Arrival Date: 01/08/2022 Time: 21:28 Bed 5 Private MD: Van Snyder HPI: 01/08 22:10 This 21 yrs old Female presents to ER via EMS with complaints of two seizure karishma today. 22:10 The patient presents after having a single isolated seizure. Character of seizure(s): karishma Loss of consciousness: the patient experienced loss of consciousness, Motor activity: generalized. Seizure onset: just prior to arrival. Context: the seizure(s) was witnessed, by family, mother, occurred at home, occurred while the patient was standing, Contributing factors: unknown. Seizure Hx: Cause: brain tumor, Last seizure: The patient's last seizure was approximately 2 week(s) ago. Associated injury: The patient did not suffer any apparent associated injury. EMS care: none, Ativan, 2 mg(s), IV. Current symptoms: Currently, the patient is not experiencing any symptoms. The patient has not experienced similar symptoms in the past. Historical: - Allergies: 21:33 No Known Allergies; ke1 - PMHx: 21:33 Anxiety; Asthma; BRAIN TUMOR; Breast tumors; ke1 - PSHx: 21:33 brain surgery; Lumpectomy of breast; ke1 - Immunization history:: Adult Immunizations Client reports receiving the 2nd dose of the Covid vaccine. - Social history:: Smoking status: Patient denies any tobacco usage or history of. - Family history:: not pertinent. ROS: 22:10 Constitutional: Negative for fever, chills, and weight loss, Eyes: Negative for injury, karishma pain, redness, and discharge, ENT: Negative for injury, pain, and discharge, Neck: Negative for injury, pain, and swelling, Cardiovascular: Negative for chest pain, palpitations, and edema, Respiratory: Negative for shortness of breath, cough, wheezing, and pleuritic chest pain, Abdomen/GI: Negative for abdominal pain, nausea, vomiting, diarrhea, and constipation, Back: Negative for injury and pain, : Negative for injury, bleeding, discharge, and swelling, MS/Extremity: Negative for injury and deformity, Skin: Negative for injury, rash, and discoloration, Psych: Negative for depression, anxiety, suicide ideation, homicidal ideation, and hallucinations, Allergy/Immunology: Negative for hives, rash, and allergies, Endocrine: Negative for neck swelling, polydipsia, polyuria, polyphagia, and marked weight changes, Hematologic/Lymphatic: Negative for swollen nodes, abnormal bleeding, and unusual bruising. 22:10 Neuro: Positive for seizure activity, x 2 at home. Exam: 22:12 Constitutional: This is a well developed, well nourished patient who is awake, alert, karishma and in no acute distress. Head/Face: Normocephalic, atraumatic. Eyes: Pupils equal round and reactive to light, extra-ocular motions intact. Lids and lashes normal. Conjunctiva and sclera are non-icteric and not injected. Cornea within normal limits. Periorbital areas with no swelling, redness, or edema. ENT: Nares patent. No nasal discharge, no septal abnormalities noted. Tympanic membranes are normal and external auditory canals are clear. Oropharynx with no redness, swelling, or masses, exudates, or evidence of obstruction, uvula midline. Mucous membranes moist. Neck: Trachea midline, no thyromegaly or masses palpated, and no cervical lymphadenopathy. Supple, full range of motion without nuchal rigidity, or vertebral point tenderness. No Meningismus. Chest/axilla: Normal chest wall appearance and motion. Nontender with no deformity. No lesions are appreciated. Cardiovascular: Regular rate and rhythm with a normal S1 and S2. No gallops, murmurs, or rubs. Normal PMI, no JVD. No pulse deficits. Respiratory: Lungs have equal breath sounds bilaterally, clear to auscultation and percussion. No rales, rhonchi or wheezes noted. No increased work of breathing, no retractions or nasal flaring. Abdomen/GI: Soft, non-tender, with normal bowel sounds. No distension or tympany. No guarding or rebound. No evidence of tenderness throughout. Back: No spinal tenderness. No costovertebral tenderness. Full range of motion. Skin: Warm, dry with normal turgor. Normal color with no rashes, no lesions, and no evidence of cellulitis. MS/ Extremity: Pulses equal, no cyanosis. Neurovascular intact. Full, normal range of motion. Neuro: Awake and alert, GCS 15, oriented to person, place, time, and situation. Cranial nerves II-XII grossly intact. Motor strength 5/5 in all extremities. Sensory grossly intact. Cerebellar exam normal. Normal gait. Psych: Awake, alert, with orientation to person, place and time. Behavior, mood, and affect are within normal limits. 22:12 ECG was reviewed by the Attending Physician. Vital Signs: 21:31 BP 113 / 68; Pulse 79; Resp 23; Temp 98.6; Pulse Ox 100% on R/A; Weight 52.16 kg; ke1 Height 5 ft. 2 in. (157.48 cm); 22:25 BP 100 / 60; Pulse 69; Resp 18; Pulse Ox 99% ; ke1 21:31 Body Mass Index 21.03 (52.16 kg, 157.48 cm) ke1 MDM: 21:40 Patient medically screened. karishma 22:13 Differential diagnosis: cerebral vascular accident, cardiac arrhythmia, seizure, TIA. karishma Data reviewed: vital signs, nurses notes, lab test result(s), EKG, radiologic studies, CT scan, plain films. Data reviewed: lab test result(s), EKG, radiologic studies. Data interpreted: traffic monitor specialist: rate is 79 beats/min, rhythm is regular, Pulse oximetry: on room air is 100 %. Test interpretation: by ED physician or midlevel provider: ECG. Counseling: I had a detailed discussion with the patient and/or guardian regarding: the historical points, exam findings, and any diagnostic results supporting the discharge/admit diagnosis, lab results, radiology results, the need for outpatient follow up, for definitive care, a family practitioner, a neurologist. 01/08 21:41 Order name: Acetaminophen; Complete Time: 23:11 [facility] 01/08 21:41 Order name: Basic Metabolic Panel; Complete Time: 23:11 [facility] 01/08 21:41 Order name: CBC with Diff; Complete Time: 22:09 [facility] 01/08 21:41 Order name: ETOH Level; Complete Time: 23:11 [facility] 01/08 21:41 Order name: Hepatic Function; Complete Time: 23:11 [facility] 01/08 21:41 Order name: PT-INR; Complete Time: 23:11 [facility] 01/08 21:41 Order name: Ptt, Activated; Complete Time: 23:11 [facility] 01/08 21:41 Order name: Salicylate; Complete Time: 23:11 [facility] 01/08 21:41 Order name: Urine Drug Screen; Complete Time: 23:11 [facility] 01/08 21:41 Order name: CT Head Brain wo Cont; Complete Time: 23:11 [facility] 01/08 22:23 Order name: Urine Dipstick-Ancillary; Complete Time: 23:11 EDMS 01/08 21:41 Order name: EKG; Complete Time: 21:43 [facility] 01/08 21:41 Order name: EKG - Nurse/Tech; Complete Time: 21:46 [facility] 01/08 21:41 Order name: IV Saline Lock; Complete Time: 21:43 [facility] 01/08 21:41 Order name: Labs collected and sent; Complete Time: 22:00 [facility] 01/08 21:41 Order name: Suicide Screening ([place]); Complete Time: 22:00 [facility] 01/08 21:41 Order name: Urine Dipstick-Ancillary (obtain specimen); Complete Time: 22:22 [facility] 01/08 21:41 Order name: Urine Test (obtain specimen); Complete Time: 22:22 [facility] 01/08 21:41 Order name: Seizure Precautions; Complete Time: :43 [facility] EC:12 Rate is 81 beats/min. Rhythm is regular. QRS [place] is Normal. CA interval is normal. QRS karishma interval is normal. QT interval is normal. No Q waves. T waves are Normal. No ST changes noted. Clinical impression: Normal ECG, NSR w/ Non-specific ST/T Changes, and No evidence of ischemia. Interpreted by me. Reviewed by me. Administered Medications: 22:10 Drug: NS 0.9% 1000 ml Route: IV; Rate: 1 bolus; Site: left antecubital; ke 23:15 Follow up: IV Status: Completed infusion ke1 22:10 Drug: Keppra (levETIRAcetam) 1000 mg Route: IV; Rate: per protocol; Site: left [facility] antecubital; 22:25 Follow up: Response: No adverse reaction; IV Status: Completed infusion ke1 Disposition Summary: 01/08/22 23:11 Discharge Ordered Location: Home karishma Problem: new karishma Symptoms: have improved karishma Condition: Stable karishma Diagnosis - Epileptic seizures related to external causes karishma - Epileptic seizures related to external causes, not intractable karishma Followup: karishma - With: Private Physician - When: 2 - 3 days - Reason: Recheck today's complaints, Re-evaluation by your physician Discharge Instructions: - Discharge Summary Sheet karishma - Seizure, Adult karishma - Seizure, Adult, [id number] karishma Forms: - Medication Reconciliation Form karishma - Thank You Letter karishma - Antibiotic Education karishma - Prescription Opioid Use karishma Prescriptions: - Keppra 500 mg Oral Tablet - take 2 tablet by ORAL route every 12 hours; 60 tablet; Refills: 0, Product karishma Selection Permitted Signatures: Dispatcher [employer] Van Vela MD MD cha Ebrottie, Kouassi RN RN ke1
[2022-01-09 00:32] VITALS: TEMP 98.6
[2022-01-09 00:34] VITALS: BP 100/60; O2SAT 99
--- NOTE | 2022-01-10 11:33 | EKG ---
Test Date: 2022-01-08 Test Time: 21:32:14 Nps: TAMMY MEASUREMENT RESULTS: Intervals: Rate: 81 NE: 142 QRSD: 86 QT: 340 QTc: 394 [place]: P: 33 NE: 142 QRS: 84 T: 16 INTERPRETIVE STATEMENTS: Normal sinus rhythm Normal ECG Compared to ECG 08/30/2020 22:28:59 Sinus tachycardia no longer present Left anterior fascicular block no longer present Myocardial infarct finding no longer present Electronically Signed On 01-10-22 11:32:35 CDT by Andres Ge
== END 2022-01-08 23:30 | disposition home or self-care (01) ==
LOC: ER 21:26
DX: G40.509 Epileptic seizures related to external causes, not intractable, without status epilepticus (principal); C71.9 Malignant neoplasm of brain, unspecified
CPT/HCPCS: 36415; 70450; 80048; 80076; 80307; 80320; 80329; 81003; 85025; 85610; 85730; 93005; 96361; 96374; 99284; J1953; J7030

== ENCOUNTER 2022-01-16 14:30 | Emergency (ER) | payer SELFPAY ==
--- OUTSIDE RECORDS SUMMARY | 2022-01-16 14:33 | XMS REPORT | Continuity of Care Document ---
:2000 Author Organization [facility] t Address 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 00:00: [place] [facility] Allergies, Adverse Reactions, Alerts Allergy Allergy Status Severity Reaction(s) Onset Inactive Treating Comm ents Source Name Type Date Date Clinician NO KNOWN Drug Active Univers ALLERGIE Class ity of S [facility] Social History Social Habit Start Date Stop Date Quantity Comments Source History SDOH University o f Alcohol Std [place] [facility] Drinks Branch History SDOH University o f Alcohol Binge [place] [facility] al Branch History SDKY University o f Alcohol Comment [place] [facility] ical [facility] Exposure to 2021-12-14 2021-12-24 Not sure University SARS-CoV-2 00:00:00 15:02:00 [facility] (event) Branch Alcohol intake 2021-12-24 2021-12-24 Lifetime University of 00:00:00 00:00:00 non-drinker [facility] (finding) Branch Tobacco use and 2021-12-06 2021-12-06 Smokeless tobacco Un iversity of exposure 00:00:00 00:00:00 non-user [facility] History SDOH 2021-09-10 2021-09-10 1 University o f Alcohol Frequency 00:00:00 00:00:00 [facility] edical Branch Education 2020-09-07 2020-09-07 12 [facility] 00:00:00 00:00:00 [facility] Sex Assigned At [birth year] Universit y of 00:00:00 00:00:00 [facility] Smoking Status Start Date Stop Date Source Never smoked tobacco [facility] Medications Ordered Filled Start Stop Current Ordering Indication Dosage Frequency Signature Comments Components Source Medication Medication Date Date Medication? Clinician (SIG) Name Name levETIRAcet 2021- No 750mg Take 750 Univers am (KEPPRA) 8 08-19 mg by ity of 750 mg 15:54: 00:00 mouth in [place] tablet 35 :00 the Medical morning Branch and 750 mg in the evening. levETIRAcet Yes [id number] 1000mg Take 1 Univers am (KEPPRA) 8-19 tablet by ity of 1,000 mg 00:00: mouth in [place] tablet 00 the Medical morning Branch and 1 tablet in the evening. levETIRAcet 2021-0 Yes [id number] 1000mg Take 1 Univers am (KEPPRA) 8-19 tablet by ity of 1,000 mg 00:00: mouth in [place] tablet 00 the Medical morning Branch and 1 tablet in the evening. levETIRAcet 2021-0 Yes [id number] 1000mg Take 1 Univers am (KEPPRA) 8-19 tablet by ity of 1,000 mg 00:00: mouth in [place] tablet 00 the Medical morning Branch and 1 tablet in the evening. SERTraline 2021-0 Yes [id number] 25mg Take 1 U nivers 25 mg 8-01 tablet by ity of tablet 00:00: mouth in [place] 00 the Medical morning. Branch SERTraline 2021-0 Yes [id number] 25mg Take 1 U nivers 25 mg 8-01 tablet by ity of tablet 00:00: mouth in [place] 00 the Medical morning. Branch SERTraline 2021-0 Yes [id number] 25mg Take 1 U nivers 25 mg 8-01 tablet by ity of tablet 00:00: mouth in [place] 00 the Medical morning. Branch ondansetron 2020-0 Yes [id number] 4mg Take 1 Univers (ZOFRAN 6-23 tablet by ity of ODT) 4 mg 00:00: mouth [place] disintegrat 00 every 8 Medic al ing tablet (eight) Branch hours as needed for Nausea and Vomiting (N/V). ondansetron 2020-0 Yes [id number] 4mg Take 1 Univers (ZOFRAN 6-23 tablet by ity of ODT) 4 mg 00:00: mouth [place] disintegrat 00 every 8 Medic al ing tablet (eight) Branch hours as needed for Nausea and Vomiting (N/V). ondansetron 2020-0 Yes [id number] 4mg Take 1 Univers (ZOFRAN 6-23 tablet by ity of ODT) 4 mg 00:00: mouth [place] disintegrat 00 every 8 Medic al ing tablet (eight) Branch hours as needed for Nausea and Vomiting (N/V). acetaminoph 2020-0 Yes [id number] 650mg Take 2 Univers en 325 mg 6-20 tablets by ity of tablet 00:00: mouth [place] 00 every 6 Medical (six) Branch hours as needed for Pain (scale 1-3) or Temp > 38.5 C. acetaminoph 2020-0 Yes [id number] 650mg Take 2 Univers en 325 mg 6-20 tablets by ity of tablet 00:00: mouth [place] 00 every 6 Medical (six) Branch hours as needed for Pain (scale 1-3) or Temp > 38.5 C. acetaminoph 2020-0 Yes [id number] 650mg Take 2 Univers en 325 mg 6-20 tablets by ity of tablet 00:00: mouth [place] 00 every 6 Medical (six) Branch hours as needed for Pain (scale 1-3) or Temp > 38.5 C. Immunizations Ordered Filled Immunization Date Status Comments [facility] e Immunization Name Name Influenza Virus 2021-08-20 Completed Universit y of Vaccine Quad IM, 00:00:00 [facility] dical Preserv and ABX Branch Free 6 MO-64 YRS Influenza Virus 2021-08-20 Completed Universit y of Vaccine [facility] IM, 00:00:00 [place] Me dical Preserv and ABX Branch Free 6 MO-64 YRS Influenza Virus 2021-08-20 Completed Universit y of Vaccine [facility] IM, 00:00:00 [place] Me dical Preserv and ABX Branch Free 6 MO-64 YRS Vital Signs Vital Name Observation Time Observation Value Comments Source Systolic blood 2021-12-24 20:21:00 107 mm[Hg] Univer sity of pressure [facility] Diastolic blood 2021-12-24 20:21:00 66 [facility][Hg] [facility] 2021-12-24 20:21:00 73 /min [facility] Body temperature 2021-12-24 20:21:00 36.83 Jenni [facility] Body height 2021-12-24 20:21:00 154.9 cm [facility] Body weight 2021-12-24 20:21:00 54.522 kg [facility] BMI 2021-12-24 20:21:00 22.71 kg/m2 [facility] Oxygen saturation in 2021-12-24 20:21:00 100 /min [facility] Arterial blood by [facility] Pulse oximetry Branch Procedures This patient has no known procedures. Encounters Start End Encounter Admission Attending Care Care Encounter Source Date/Time Date/Time Type Type Clinicians Facility Department ID 2022-01-27 2022-01-27 Outpatient JEANNINE MUÑIZ [facility] [id number] Univers 14:40:00 14:40:00 [id number] [facility] 2022-01-06 2022-01-06 Outpatient R JEY [facility] [id number] [facility] [place] [facility] 08:00:00 08:00:00 RUIQING [id number] [facility] 2022-01-03 2022-01-03 Telephone [facility] [id number] [facility] [place] [facility] 00:00:00 00:00:00 Ruiqing L SPECIALTY [id number] ity of [id number] [place] [id number] [address] 2021-12-24 2021-12-24 [facility] [id number] Univers 15:30:00 16:02:43 Visit Ruiqing L SPECIALTY [id number] ity [id number] [id number] [address] 2021-12-24 2021-12-24 [facility] [id number] [facility] [place] [facility] 00:00:00 00:00:00 Ruiqing L SPECIALTY [id number] it[id number] [id number] [address] 2020-08-31 2020-08-31 Emergency Elizabeth RUIZ [facility] [id number] [facility] 00:51:00 11:46:00 ALBERT 2019-07-19 2019-07-19 Emergency [facility] [id number] 21:36:16 23:53:00 Monse Bergman [id number] [place] [id number] [place] [phone] [id number] Results This patient has no known results.
[2022-01-16] MEDS ORDERED: NA CHLORIDE 0.9% 1,000 ML ONE (15:21)
[2022-01-16 15:23] LABS: Absolute Lymphocytes (CBC) 1.8 K/uL (0.7-4.9); Hematocrit 40.3 % (36.0-45.0); Lymphocytes % 25.9 % (15.3-44.8); MCV 86.3 fL (80-100); MPV 8.4 fL (7.6-11.3); RBC Red Blood Cell Count 4.67 M/uL (3.86-4.86)
[2022-01-16 15:38] LABS: Albumin 3.9 g/dL (3.4-5.0); Bilirubin Total 0.6 mg/dL (0.2-1.0); Potassium 3.4 mmol/L (3.5-5.1); Protein, Total 7.1 g/dL (6.4-8.2)
[2022-01-16 16:31] LABS: Urine Blood Negative (Negative); Urine Glucose Negative (Negative); Urine Protein Negative (Negative)
[2022-01-16 16:45] LABS: Urine Mucus Slight /HPF (None Seen); Urine RBC <5 /HPF (None Seen)
--- NOTE | 2022-01-16 17:34 | ER ---
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 18 G IV to RAC, 2 mg Ativan given, pt post-ictal upon arrival to ED, VSS. Coronavirus screen: Vaccine status: Patient reports receiving the 2nd dose of the covid vaccine. Ebola Screen: No symptoms or risks identified at this time. Initial Sepsis Screen: Does the patient meet any 2 criteria? No. Patient's initial sepsis screen is negative. Does the patient have a suspected source of infection? No. Patient's initial sepsis screen is negative. Risk Assessment: Do you want to hurt yourself or someone else? Patient reports no desire to harm self or others. 14:44 Method Of Arrival: EMS: [facility] 14:44 Acuity: LUBNA 3 ph 14:46 Note Was seen in ED approx 2 weeks ago, DR Tobin increased keppra dose at that time ph but pt did not want to take increased dose until seeing her neurologist. Onset of symptoms was January 16, 2022. Triage Assessment: 14:48 General: Appears in no apparent distress. Behavior is cooperative, appropriate for age. ph Pain: Denies pain. Neuro: Level of Consciousness is awake, Oriented to person, place, Seizure activity reported prior to arrival. Patient is post-ictal at this time. Cardiovascular: Capillary refill < 3 seconds in bilateral fingers Patient's skin is warm and dry. Respiratory: Airway is patent Respiratory effort is even, unlabored. Derm: Skin is healthy with good turgor, Skin is pink, warm \T\ dry. Historical: - Allergies: 14:47 No Known Allergies; ph - Home Meds: 14:47 B3 [Active]; Keppra Oral [Active]; ph - PMHx: 14:47 Anxiety; Asthma; BRAIN TUMOR; Breast tumors; ph - PSHx: 14:47 brain surgery; Lumpectomy of breast; ph - Immunization history:: Adult Immunizations up to date. - Social history:: Smoking status: Patient denies any tobacco usage or history of. Screenin:45 Abuse screen: Denies threats or abuse. Denies injuries from another. Nutritional ko1 screening: No deficits noted. Tuberculosis screening: No symptoms or risk factors identified. Fall Risk Secondary diagnosis (15 points) seizures, Assessment: 14:45 General: Appears in no apparent distress. Behavior is drowsy, flat, quiet, Reports. ko1 Neuro: Seizure activity reported prior to arrival. Cardiovascular: No deficits noted. Respiratory: No deficits noted. GI: No deficits noted. : No deficits noted. EENT: No deficits noted. Derm: No deficits noted. Musculoskeletal: No deficits noted. 16:00 Reassessment: Patient appears in no apparent distress at this time. Patient and/or ph family updated on plan of care and expected duration. Pain level reassessed. Vital Signs: 14:35 BP 98 / 70; Pulse 99; Resp 14; Pulse Ox 99% ; Pain 0/10; ko1 14:44 BP 102 / 45; Pulse 91; Resp 14; Temp 97.8; Pulse Ox 98% on R/A; Weight 52.16 kg; Height ph 5 ft. 2 in. (157.48 cm); Pain 0/10; 15:00 BP 102 / 45; Pulse 90; Pulse Ox 97% ; ko1 15:30 BP 98 / 55; Pulse 82; Pulse Ox 98% ; ko1 16:38 BP 104 / 62; Pulse 67; Pulse Ox 96% ; ko1 14:44 Body Mass Index 21.03 (52.16 kg, 157.48 cm) ph ED Course: 14:34 Patient arrived in ED. eb 14:38 Sarah Tran FNP-C is PHCP. snw 14:38 Van Tobin MD is Attending Physician. snw 14:43 Vickie Jessica, NORBERTO is Primary Nurse. ph 14:45 No provider procedures requiring assistance completed. ko1 14:46 Triage completed. ph 14:48 Arm band placed on Patient placed in an exam room. ph 14:49 Patient has correct armband on for positive identification. Bed in low position. Call ph light in reach. Side rails up X2. Seizure precautions initiated. Pulse ox on. NIBP on. 15:11 CBC with Diff Sent. ko1 15:11 CMP Sent. ko1 15:11 Lipase Sent. ko1 16:05 Assisted with bedpan. ko1 16:33 Urine Microscopic Only Sent. ko1 17:01 Urine --Ancillary (enter results) Sent. ko1 17:50 IV discontinued, intact, bleeding controlled, No redness/swelling at site. Pressure ko1 dressing applied. Administered Medications: 15:12 Drug: NS 0.9% 1000 ml Route: IV; Rate: 1 bolus; Site: right antecubital; ko1 16:00 Follow up: IV Status: Completed infusion; IV converted to saline lock ko1 17:41 Drug: Potassium Effervescent Tablet 25 mEq Route: PO; ko1 18:00 Follow up: Response: No adverse reaction ph Medication: 14:45 VIS not applicable for this client. ko1 Intake: 14:45 IV: 1000ml (IV Fluid); Total: 1000ml. ko1 Output: 16:38 Urine: 350ml (Voided); Total: 350ml. ko1 Outcome: 17:33 Discharge ordered by . rosa 17:50 Discharged to home via wheelchair. ko1 17:50 Condition: improved 17:50 Discharge instructions given to patient, family, Instructed on discharge instructions, follow up and referral plans. Demonstrated understanding of instructions, follow-up care. 17:53 Patient left the ED. ko1 Signatures: Sarah Tran FNP-C LGSW-Vickie Sánchez, RN RN Kandy Gao Kathy, RN RN ko1
--- NOTE | 2022-01-16 17:34 | EDPHYS ---
Physician Documentation [facility] Name: Nona Lee Age: 21 yrs Sex: Female : 2000 Arrival Date: 01/16/2022 Time: 14:34 Bed 13 Private MD: ED Physician Van Tobin HPI: 01/16 14:59 This 21 yrs old Female presents to ER via EMS with complaints of seizure. snw 14:59 The patient presents after having a single isolated seizure, that lasted 10 minute(s), snw the episode(s) was witnessed, by family, mother. Character of seizure(s): Loss of consciousness: the patient experienced loss of consciousness, Motor activity: focal activity, of the right hand and left hand, blank stare, Incontinence: Apnea: the patient did not experience apnea, Circulation: the patient did not experience evidence of pulse disturbance, Eye movements: are unknown. Seizure onset: pt has been having more episodes of seizures that are lasting longer. Context: the seizure(s) was witnessed, by family, mother, occurred at home, occurred while the patient was sitting, Contributing factors: pt takes 2gm of Keppra daily, is not taking additional doseage given in ED at last episode 2nd to fear of side effects. Seizure Hx: Cause: brain tumor. Current symptoms: slow to respond. The patient has experienced similar episodes in the past, and the symptoms today are exactly the same. appt with Neuro on the . Historical: - Allergies: 14:47 No Known Allergies; ph - Home Meds: 14:47 B3 [Active]; Keppra Oral [Active]; ph - PMHx: 14:47 Anxiety; Asthma; BRAIN TUMOR; Breast tumors; ph - PSHx: 14:47 brain surgery; Lumpectomy of breast; ph - Immunization history:: Adult Immunizations up to date. - Social history:: Smoking status: Patient denies any tobacco usage or history of. ROS: 15:17 Constitutional: Negative for fever, chills, and weight loss, Eyes: Negative for injury, snw pain, redness, and discharge, ENT: Negative for injury, pain, and discharge, Neck: Negative for injury, pain, and swelling, Cardiovascular: Negative for chest pain, palpitations, and edema, Respiratory: Negative for shortness of breath, cough, wheezing, and pleuritic chest pain, Abdomen/GI: Negative for abdominal pain, nausea, vomiting, diarrhea, and constipation, Back: Negative for injury and pain, : Negative for injury, bleeding, discharge, and swelling, MS/Extremity: Negative for injury and deformity, Skin: Negative for injury, rash, and discoloration. 15:17 Neuro: Positive for seizure activity, focal hand movements with decreased level of responsiveness. Exam: 15:17 Head/Face: Normocephalic, atraumatic. snw 15:17 ENT: Nares patent. No nasal discharge, no septal abnormalities noted. Tympanic membranes are normal and external auditory canals are clear. Oropharynx with no redness, swelling, or masses, exudates, or evidence of obstruction, uvula midline. Mucous membranes moist. Neck: Trachea midline, no thyromegaly or masses palpated, and no cervical lymphadenopathy. Supple, full range of motion without nuchal rigidity, or vertebral point tenderness. No Meningismus. Chest/axilla: Normal chest wall appearance and motion. Nontender with no deformity. No lesions are appreciated. Cardiovascular: Regular rate and rhythm with a normal S1 and S2. No gallops, murmurs, or rubs. Normal PMI, no JVD. No pulse deficits. Respiratory: Lungs have equal breath sounds bilaterally, clear to auscultation and percussion. No rales, rhonchi or wheezes noted. No increased work of breathing, no retractions or nasal flaring. Abdomen/GI: Soft, non-tender, with normal bowel sounds. No distension or tympany. No guarding or rebound. No evidence of tenderness throughout. Back: No spinal tenderness. No costovertebral tenderness. Full range of motion. Skin: Warm, dry with normal turgor. Normal color with no rashes, no lesions, and no evidence of cellulitis. MS/ Extremity: Pulses equal, no cyanosis. Neurovascular intact. Full, normal range of motion. Psych: Awake, alert, with orientation to person, place and time. Behavior, mood, and affect are within normal limits. 15:17 Constitutional: The patient appears in no acute distress, awake, slow to respond but watchful and obeys commands 15:17 Eyes: open, appears fatigued. 15:17 Neuro: Orientation: unable to test, Mentation: slow to respond, Memory: is normal, Motor: is normal, seizure activity, is not displayed by the patient, is not currently displayed, but the patient is post-ictal. Vital Signs: 14:35 BP 98 / 70; Pulse 99; Resp 14; Pulse Ox 99% ; Pain 0/10; ko1 14:44 BP 102 / 45; Pulse 91; Resp 14; Temp 97.8; Pulse Ox 98% on R/A; Weight 52.16 kg; Height ph 5 ft. 2 in. (157.48 cm); Pain 0/10; 15:00 BP 102 / 45; Pulse 90; Pulse Ox 97% ; ko1 15:30 BP 98 / 55; Pulse 82; Pulse Ox 98% ; ko1 16:38 BP 104 / 62; Pulse 67; Pulse Ox 96% ; ko1 14:44 Body Mass Index 21.03 (52.16 kg, 157.48 cm) ph MDM: 14:39 Patient medically screened. snw 15:19 Data reviewed: vital signs, nurses notes. Data interpreted: Pulse oximetry: on room air snw is 98 %. Interpretation: normal. Counseling: I had a detailed discussion with the patient and/or guardian regarding: the historical points, exam findings, and any diagnostic results supporting the discharge/admit diagnosis. 17:35 Response to treatment: the patient's symptoms have markedly improved after treatment. snw Special discussion: Based on the history and exam findings, there is no indication for further emergent testing or inpatient evaluation. I discussed with the patient/guardian the need to see the neurologist for further evaluation of the symptoms. I discussed with the patient/guardian the need to see the primary care provider for further evaluation of the symptoms. 01/16 14:51 Order name: CBC with Diff; Complete Time: 15:31 snw 01/16 14:51 Order name: CMP; Complete Time: 15:41 snw 01/16 14:51 Order name: Lipase; Complete Time: 15:41 snw 01/16 14:51 Order name: Urine Microscopic Only; Complete Time: 17:12 snw 01/16 16:32 Order name: Urine Dipstick-Ancillary; Complete Time: 17:12 EDMS 01/16 16:49 Order name: Urine --Ancillary (enter results); Complete Time: 18:20 eb 01/16 14:51 Order name: IV Saline Lock; Complete Time: 14:56 snw 01/16 14:51 Order name: Labs collected and sent; Complete Time: 15:11 snw 01/16 14:51 Order name: Urine Test (obtain specimen); Complete Time: 16:33 snw Administered Medications: 15:12 Drug: NS 0.9% 1000 ml Route: IV; Rate: 1 bolus; Site: right antecubital; ko1 16:00 Follow up: IV Status: Completed infusion; IV converted to saline lock ko1 17:41 Drug: Potassium Effervescent Tablet 25 mEq Route: PO; ko1 18:00 Follow up: Response: No adverse reaction ph Disposition Summary: 01/16/22 17:33 Discharge Ordered Location: Home snw Condition: Stable snw Diagnosis - Other seizures snw - Hypokalemia snw Followup: snw - With: Emergency Department - When: As needed - Reason: Worsening of condition Followup: snw - With: Private Physician - When: 2 - 3 days - Reason: Recheck today's complaints, Continuance of care, Re-evaluation by your physician Discharge Instructions: - Discharge Summary Sheet snw - Potassium Content of Foods snw - Seizure, Adult snw Forms: - Medication Reconciliation Form snw - Thank You Letter snw - Antibiotic Education snw - Prescription Opioid Use snw Signatures: Dispatcher [employer] Sarah Woodward FNP-C SURGICAL INSTRUMENT MAKER-Csnw Vickie Jessica, RN RN Raissa Stephenson RN RN ko1
[2022-01-16] MEDS ORDERED: POTASSIUM 25 MEQ EFFERV TAB ONE (17:48)
[2022-01-16 19:03] VITALS: TEMP 97.8
[2022-01-16 19:13] VITALS: BP 104/62; O2SAT 96
== END 2022-01-16 17:53 | disposition home or self-care (01) ==
LOC: ER 14:30
DX: G40.89 Other seizures (principal); E87.6 Hypokalemia
CPT/HCPCS: 36415; 80053; 81003; 81015; 81025; 83690; 85025; 96360; 99284; J7030

== ENCOUNTER 2022-01-21 19:14 | Emergency (ER) | payer BC ==
--- OUTSIDE RECORDS SUMMARY | 2022-01-21 19:17 | XMS REPORT | Continuity of Care Document ---
:2000 Author Organization [facility] t Address [address] 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 00:00: [place] [facility] Allergies, Adverse Reactions, Alerts Allergy Allergy Status Severity Reaction(s) Onset Inactive Treating Comm ents Source Name Type Date Date Clinician NO KNOWN Drug Active Univers ALLERGIE Class ity of S [facility] Social History Social Habit Start Date Stop Date Quantity Comments Source History SDOH University o f Alcohol Std [place] [facility] Drinks Branch History SDOH University o f Alcohol Binge [place] [facility] History SDMI University o f Alcohol Comment [place] [facility] Exposure to 2021-12-14 2021-12-24 Not sure University SARS-CoV-2 00:00:00 15:02:00 [facility] (event) Branch Alcohol intake 2021-12-24 2021-12-24 Lifetime University of 00:00:00 00:00:00 non-drinker [facility] (finding) Branch Tobacco use and 2021-12-06 2021-12-06 Smokeless tobacco Un iversity of exposure 00:00:00 00:00:00 non-user [facility] History SDOH 2021-09-10 2021-09-10 1 University o f Alcohol Frequency 00:00:00 00:00:[address] [facility] edical Branch Education 2020-09-07 2020-09-07 12 [facility] 00:00:00 00:00:00 [facility] Sex Assigned At [birth year] Universit y of 00:00:00 00:00:00 [facility] Smoking Status Start Date Stop Date Source Never smoked tobacco [facility] Medications Ordered Filled Start Stop Current Ordering Indication Dosage Frequency Signature Comments Components Source Medication Medication Date Date Medication? Clinician (SIG) Name Name levETIRAcet 2021- No 750mg Take 750 Univers am (KEPPRA) 8 08-19 mg by ity of 750 mg 15:54: 00:00 mouth in [place] tablet 35 :00 the Medical morning Branch and 750 mg in the evening. levETIRAcet Yes [id number] 1000mg Take 1 Univers am (KEPPRA) 8-19 tablet by ity of 1,000 mg 00:00: mouth in [place] tablet 00 the Medical morning Branch and 1 tablet in the evening. levETIRAcet 2021-0 Yes [id number] 1000mg Take 1 Univers am (KEPPRA) 8-19 tablet by ity of 1,000 mg 00:00: mouth in [place] tablet 00 the Medical morning Branch and 1 tablet in the evening. levETIRAcet 2021-0 Yes [id number] 1000mg Take 1 Univers am (KEPPRA) 8-19 tablet by ity of 1,000 mg 00:00: mouth in [place] tablet 00 the Medical morning Branch and 1 tablet in the evening. SERTraline 2021-0 Yes [id number] 25mg Take 1 U nivers 25 mg 8-01 tablet by ity of tablet 00:00: mouth in [place] 00 the Medical morning. Branch SERTraline 2021-0 Yes [id number] 25mg Take 1 U nivers 25 mg 8-01 tablet by ity of tablet 00:00: mouth in [place] 00 the Medical morning. Branch SERTraline 2021-0 Yes [id number] 25mg Take 1 U nivers 25 mg 8-01 tablet by ity of tablet 00:00: mouth in [place] 00 the Medical morning. Branch ondansetron 2020-0 Yes [id number] 4mg Take 1 Univers (ZOFRAN 6-23 tablet by ity of ODT) 4 mg 00:00: mouth [place] disintegrat 00 every 8 Medic al ing tablet (eight) Branch hours as needed for Nausea and Vomiting (N/V). ondansetron 2020-0 Yes [id number] 4mg Take 1 Univers (ZOFRAN 6-23 tablet by ity of ODT) 4 mg 00:00: mouth [place] disintegrat 00 every 8 Medic al ing tablet (eight) Branch hours as needed for Nausea and Vomiting (N/V). ondansetron 2020-0 Yes [id number] 4mg Take 1 Univers (ZOFRAN 6-23 tablet by ity of ODT) 4 mg 00:00: mouth [place] disintegrat 00 every 8 Medic al ing tablet (eight) Branch hours as needed for Nausea and Vomiting (N/V). acetaminoph 2020-0 Yes [id number] 650mg Take 2 Univers en 325 mg 6-20 tablets by ity of tablet 00:00: mouth [place] 00 every 6 Medical (six) Branch hours as needed for Pain (scale 1-3) or Temp > 38.5 C. acetaminoph 2020-0 Yes [id number] 650mg Take 2 Univers en 325 mg 6-20 tablets by ity of tablet 00:00: mouth [place] 00 every 6 Medical (six) Branch hours as needed for Pain (scale 1-3) or Temp > 38.5 C. acetaminoph 2020-0 Yes [id number] 650mg Take 2 Univers en 325 mg 6-20 tablets by ity of tablet 00:00: mouth [place] 00 every 6 Medical (six) Branch hours as needed for Pain (scale 1-3) or Temp > 38.5 C. Immunizations Ordered Filled Immunization Date Status Comments [facility] e Immunization Name Name Influenza Virus 2021-08-20 Completed Universit y of Vaccine Quad IM, 00:00:[address] [facility] dical Preserv and ABX Branch Free 6 MO-64 YRS Influenza Virus 2021-08-20 Completed Universit y of Vaccine [place] IM, 00:00:00 [place] Me dical Preserv and ABX Branch Free 6 MO-64 YRS Influenza Virus 2021-08-20 Completed Universit y of Vaccine Quad IM, 00:00:00 [place] Me dical Preserv and ABX Branch Free 6 MO-64 YRS Vital Signs Vital Name Observation Time Observation Value Comments Source Systolic blood 2021-12-24 20:21:00 107 mm[Hg] Univer sity of pressure [facility] Diastolic blood 2021-12-24 20:21:00 66 mm[facility]Hg] [facility] 2021-12-24 20:21:00 73 /min [facility] Body temperature 2021-12-24 20:21:00 36.83 [facility] Body height 2021-12-24 20:21:00 154.9 cm [facility] Body weight 2021-12-24 20:21:00 54.522 kg [facility] BMI 2021-12-24 20:21:00 22.71 kg/m2 [facility] Oxygen saturation in 2021-12-24 20:21:00 100 /min [facility] Arterial blood by [facility] Pulse oximetry Branch Procedures This patient has no known procedures. Encounters Start End Encounter Admission Attending Care Care Encounter Source Date/Time Date/Time Type Type Clinicians Facility Department ID 2022-01-27 2022-01-27 Outpatient JEANNINE MUÑIZ [facility] [id number] Univers 14:40:00 14:40:00 [id number] [facility] 2022-01-06 2022-01-06 Outpatient R JEY [facility] [id number] [facility] 08:00:00 08:00:00 RUIQING [id number] [facility] 2022-01-03 2022-01-03 Telephone [facility] [id number] [facility] 00:00:00 00:00:00 Ruiqing L SPECIALTY [id number] [id number] [phone] [address] 2021-12-24 2021-12-24 [facility] [id number] Univers 15:30:00 16:02:43 Visit Ruiqing L SPECIALTY [id number] [id number] [phone] [address] 2021-12-24 2021-12-24 [facility] [id number] [facility] 00:00:00 00:00:00 [place]ui[place] L SPECIALTY [id number] [id number] [id number] [address] 2020-08-31 2020-08-31 Emergency Elizabeth RUIZ [facility] 111[address] [facility] 00:51:00 11:46:00 ALBERT 2019-07-19 2019-07-19 Emergency [facility] [id number] 21:36:16 23:53:00 Monse Bergman [id number] [place] [id number] [place] [id number] [id number] Results This patient has no known results.
[2022-01-21] MEDS ORDERED: NA CHLORIDE 0.9% 100 ML ONE (19:56)
[2022-01-21] MEDS ORDERED: NA CHLORIDE 0.9% 1,000 ML ONE (19:56)
[2022-01-21] MEDS ORDERED: LEVETIRACETAM 500 MG/5 ML VIAL IV ONE (19:56)
[2022-01-21 20:13] LABS: Protime INR 0.97
[2022-01-21 20:17] LABS: Absolute Lymphocytes (CBC) 2.1 K/uL (0.7-4.9); Hematocrit 39.4 % (36.0-45.0); Lymphocytes % 27.1 % (15.3-44.8); MPV 9.5 fL (7.6-11.3); RBC Red Blood Cell Count 4.47 M/uL (3.86-4.86)
[2022-01-21] MEDS ORDERED: VALPROATE NA 500 MG/5 ML INJ IV ONE (20:36)
[2022-01-21] MEDS ORDERED: NA CHLORIDE 0.9% 50 ML ONE (20:38)
[2022-01-21 20:54] LABS: Albumin 4.1 g/dL (3.4-5.0); Bilirubin Direct 0.1 mg/dL (0-0.2); Bilirubin Total 0.4 mg/dL (0.2-1.0); Potassium 3.3 mmol/L (3.5-5.1); Protein, Total 7.2 g/dL (6.4-8.2)
[2022-01-21 21:20] LABS: Urine Blood Negative (Negative); Urine Glucose Negative (Negative); Urine Protein Negative (Negative); Urine Specific Gravity 1.015 (1.005-1.030)
--- NOTE | 2022-01-21 21:47 | RAD REPORT ---
EXAM DESCRIPTION: CT - Head Brain Wo Cont - 01/21/2022 9:30 pm CLINICAL HISTORY: Headache, classic migraine COMPARISON: <Comparisons> TECHNIQUE: All CT scans are performed using dose optimization technique as appropriate and may inclu de automated exposure control or mA/KV adjustment according to patient size. FINDINGS: No intracranial hemorrhage, hydrocephalus or extra-axial fluid collection.No areas of brai n edema or evidence of midline shift. Status post left-sided suboccipital craniotomy. CSF attenuation collection posterior to the cerebellum on the left-side may represent a resection cavity or arachnoi d cyst. 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 This may be as a result of mass effect by the CSF collection. The finding is unchanged, however. . The paranasal sinuses and mastoids are clear. The calvarium is intact. IMPRESSION: No acute intracranial abnormality. No change compared with 01/08/2022.
[2022-01-21 22:03] LABS: Barbiturates NEGATIVE (NEGATIVE); Benzodiazepines POSITIVE (NEGATIVE); Cocaine NEGATIVE (NEGATIVE); METHAMPHETAM NEGATIVE (NEGATIVE); Methadone NEGATIVE (NEGATIVE); Opiates NEGATIVE (NEGATIVE); Phencyclidine NEGATIVE (NEGATIVE); THC Cannibis NEGATIVE (NEGATIVE)
[2022-01-21 22:13] LABS: Urine Specific Gravity/Preg 1.015 (1.005-1.030)
--- NOTE | 2022-01-21 22:28 | ER ---
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 jb4 Pt seized for 10minutes with EMS. Given 10mg of versed, 2mg of Ativan. Has a 22g in the RAC, 20g in the LAC. BGL 116. B/p 100/64. Coronavirus screen: At this time, the client does not indicate any symptoms associated with coronavirus-19. Ebola Screen: No symptoms or risks identified at this time. Initial Sepsis Screen: Does the patient meet any 2 criteria? No. Patient's initial sepsis screen is negative. Does the patient have a suspected source of infection? No. Patient's initial sepsis screen is negative. Risk Assessment: Do you want to hurt yourself or someone else? Patient reports no desire to harm self or others. Onset of symptoms was January 21, 2022. Transition of care: patient was not received from another setting of care. 19:16 Method Of Arrival: EMS: [facility] 19:16 Acuity: LUBNA 3 jb4 Historical: - Allergies: 19:19 No Known Allergies; jb4 - Home Meds: 19:18 B3 [Active]; Keppra Oral 2500 mg daily [Active]; jb4 - PMHx: 19:18 Anxiety; Asthma; BRAIN TUMOR; Breast tumors; jb4 - PSHx: 19:18 brain surgery; Lumpectomy of breast; jb4 - Immunization history:: Adult Immunizations up to date. - Family history:: not pertinent. Screenin:19 Abuse screen: Denies threats or abuse. Nutritional screening: No deficits noted. jb4 Tuberculosis screening: No symptoms or risk factors identified. Fall Risk IV access (20 points). Gait- Impaired (20 pts.). Total Richards Fall Scale indicates Low Risk Score (25-44 pts). Fall prevention measures have been instituted. Side Rails Up X 2 Placed close to Nursing Station Frequent Obs/Assesments occuring Family Present and informed to notify staff if they need to leave bedside As available Patient and Family Educated on Fall Prevention Program and strategies. Assessment: 19:19 General: Appears in no apparent distress. comfortable, Behavior is calm, cooperative. jb4 Pain: Denies pain. Neuro: Barrera Agitation-Sedation Scale (RASS): -1 Drowsy Level of Consciousness is alert, obeys commands, lethargic, Oriented to person, place, time, situation. Cardiovascular: Patient's skin is warm and dry. Respiratory: Airway is patent Respiratory effort is even, unlabored, Respiratory pattern is regular, symmetrical. GI: No signs and/or symptoms were reported involving the gastrointestinal system. : No signs and/or symptoms were reported regarding the genitourinary system. EENT: No signs and/or symptoms were reported regarding the EENT system. Derm: Skin is intact, Skin is pink, warm \T\ dry. Musculoskeletal: Circulation, motion, and sensation intact. Range of motion: intact in all extremities. 20:00 Reassessment: Pt is resting in bed with eyes closed, respirations are even and jb4 unlabored with no s/s of pain or distress noted. 21:00 Reassessment: Patient appears in no apparent distress at this time. No changes from jb4 previously documented assessment. Patient and/or family updated on plan of care and expected duration. Pain level reassessed. 22:00 Reassessment: Patient appears in no apparent distress at this time. No changes from jb4 previously documented assessment. Patient and/or family updated on plan of care and expected duration. Pain level reassessed. 23:00 Reassessment: Patient appears in no apparent distress at this time. Patient and/or jb4 family updated on plan of care and expected duration. Pain level reassessed. Patient is alert, oriented x 3, equal unlabored respirations, skin warm/dry/pink. Vital Signs: 19:16 BP 112 / 65; Pulse 73; Resp 16; Temp 98.7; Pulse Ox 100% on R/A; Weight 54.43 kg (R); jb4 Height 5 ft. 1 in. (154.94 cm) (R); Pain 0/10; 20:00 BP 113 / 67; Pulse 75; Resp 24; Pulse Ox 100% on R/A; jb4 21:00 BP 111 / 69; Pulse 86; Resp 18; Pulse Ox 100% on R/A; jb4 22:15 BP 106 / 76; Pulse 88; Resp 21; Pulse Ox 100% on R/A; jb4 22:45 BP 102 / 69; Pulse 77; Resp 16; Pulse Ox 100% on R/A; jb4 19:16 Body Mass Index 22.67 (54.43 kg, 154.94 cm) jb4 ED Course: 19:15 Patient arrived in ED. jb4 19:18 Triage completed. jb4 19:19 Van Tobin MD is Attending Physician. [facility] 19:19 Arm band placed on right wrist. jb4 19:19 Patient has correct armband on for positive identification. Bed in low position. Call [facility] light in reach. Side rails up X 1. Client placed on continuous cardiac and pulse oximetry monitoring. NIBP monitoring applied. 19:45 Sherwin Arzate, NORBERTO is Primary Nurse. jb4 19:52 Acetaminophen Sent. vc1 19:52 Basic Metabolic Panel Sent. vc1 19:52 CBC with Diff Sent. vc1 19:52 ETOH Level Sent. vc1 19:52 Hepatic Function Sent. vc1 19:52 PT-INR Sent. vc1 19:52 Ptt, Activated Sent. vc1 19:53 Salicylate Sent. vc1 19:53 Initial lab(s) drawn, by me, sent to lab. EKG done, by ED staff, reviewed by Van Tobin MD. Maintain EMS IV. Dressing intact. Good blood return noted. Site clean \T\ dry. 19:54 Side rails up X2. Warm blanket given. receiving teller on. Pulse ox on. NIBP on. [facility] 21:24 Urine --Ancillary (enter results) Sent. [facility] 21:24 Urine Drug Screen Sent. [facility] 21:32 CT Head Brain wo Cont In Process Unspecified. EDMS 22:27 Stef Puga MD is Referral Physician. [facility] 23:09 No provider procedures requiring assistance completed. IV discontinued, intact, jb4 bleeding controlled, No redness/swelling at site. Pressure dressing applied. Administered Medications: 20:09 Drug: Keppra (levETIRAcetam) 1000 mg Route: IV; Rate: per protocol; Site: right jb4 antecubital; 20:10 Drug: NS 0.9% 1000 ml Route: IV; Rate: 1 bolus; Site: right antecubital; jb4 20:32 Drug: Depacon (valproic acid) 500 mg Volume: 5 ml; Route: IV; Rate: calculated rate; jb4 Site: right antecubital; Medication: 19:19 VIS not applicable for this client. jb4 Outcome: 22:27 Discharge ordered by . karishma 23:09 Discharged to home via wheelchair, with family. jb4 23:09 Condition: stable 23:09 Discharge instructions given to patient, family, Instructed on discharge instructions, follow up and referral plans. medication usage, Demonstrated understanding of instructions, follow-up care, medications, Prescriptions given X 2. 23:09 Patient left the ED. jb4 Signatures: Dispatcher [employer] EDMS Van Tobin MD MD cha Bryson, James, RN RN [email or web address] Lin Burgos [facility] Jocelin Dawkins RN RN vc1 Corrections: (The following items were deleted from the chart) 23:09 20:45 BP 102 / 69; Pulse 77bpm; Resp 16bpm; Pulse Ox 100% RA; jb4 jb4
--- NOTE | 2022-01-21 22:28 | EDPHYS ---
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 karishma 21:23 The patient presents after having a single isolated seizure, that lasted 2 minute(s). karishma Character of seizure(s): Loss of consciousness: the patient experienced loss of consciousness, Motor activity: generalized, Incontinence: none, Apnea: the patient did not experience apnea, Circulation: the patient did not experience evidence of pulse disturbance. Seizure onset: just prior to arrival. Context: the seizure(s) was witnessed, by family. Seizure Hx: Seizure medications: Keppra. Associated injury: The patient did not suffer any apparent associated injury. EMS care: Ativan, Valium. Current symptoms: Currently, the patient is not experiencing any symptoms. The patient has experienced similar episodes in the past, multiple times. Historical: - Allergies: 19:19 No Known Allergies; jb4 - Home Meds: 19:18 B3 [Active]; Keppra Oral 2500 mg daily [Active]; jb4 - PMHx: 19:18 Anxiety; Asthma; BRAIN TUMOR; Breast tumors; jb4 - PSHx: 19:18 brain surgery; Lumpectomy of breast; jb4 - Immunization history:: Adult Immunizations up to date. - Family history:: not pertinent. ROS: 21:23 Constitutional: Negative for fever, chills, and weight loss, Eyes: Negative for injury, karishma pain, redness, and discharge, ENT: Negative for injury, pain, and discharge, Neck: Negative for injury, pain, and swelling, Cardiovascular: Negative for chest pain, palpitations, and edema, Respiratory: Negative for shortness of breath, cough, wheezing, and pleuritic chest pain, Abdomen/GI: Negative for abdominal pain, nausea, vomiting, diarrhea, and constipation, Back: Negative for injury and pain, : Negative for injury, bleeding, discharge, and swelling, MS/Extremity: Negative for injury and deformity, Skin: Negative for injury, rash, and discoloration, Psych: Negative for depression, anxiety, suicide ideation, homicidal ideation, and hallucinations, Allergy/Immunology: Negative for hives, rash, and allergies, Endocrine: Negative for neck swelling, polydipsia, polyuria, polyphagia, and marked weight changes, Hematologic/Lymphatic: Negative for swollen nodes, abnormal bleeding, and unusual bruising. 21:23 Neuro: Positive for seizure activity. Exam: 21:23 Constitutional: This is a well developed, well nourished patient who is awake, alert, karishma and in no acute distress. Head/Face: Normocephalic, atraumatic. Eyes: Pupils equal round and reactive to light, extra-ocular motions intact. Lids and lashes normal. Conjunctiva and sclera are non-icteric and not injected. Cornea within normal limits. Periorbital areas with no swelling, redness, or edema. ENT: Nares patent. No nasal discharge, no septal abnormalities noted. Tympanic membranes are normal and external auditory canals are clear. Oropharynx with no redness, swelling, or masses, exudates, or evidence of obstruction, uvula midline. Mucous membranes moist. Neck: Trachea midline, no thyromegaly or masses palpated, and no cervical lymphadenopathy. Supple, full range of motion without nuchal rigidity, or vertebral point tenderness. No Meningismus. Chest/axilla: Normal chest wall appearance and motion. Nontender with no deformity. No lesions are appreciated. Cardiovascular: Regular rate and rhythm with a normal S1 and S2. No gallops, murmurs, or rubs. Normal PMI, no JVD. No pulse deficits. Respiratory: Lungs have equal breath sounds bilaterally, clear to auscultation and percussion. No rales, rhonchi or wheezes noted. No increased work of breathing, no retractions or nasal flaring. Abdomen/GI: Soft, non-tender, with normal bowel sounds. No distension or tympany. No guarding or rebound. No evidence of tenderness throughout. Back: No spinal tenderness. No costovertebral tenderness. Full range of motion. Pelvic Exam: Normal external genitalia. Speculum exam with closed cervical os, no discharge or bleeding noted. Bimanual exam with normal adnexa, no adnexal or cervical motion tenderness. Normal uterus. Female : Normal external genitalia. Skin: Warm, dry with normal turgor. Normal color with no rashes, no lesions, and no evidence of cellulitis. MS/ Extremity: Pulses equal, no cyanosis. Neurovascular intact. Full, normal range of motion. Psych: Awake, alert, with orientation to person, place and time. Behavior, mood, and affect are within normal limits. 21:23 Neuro: Orientation: is normal, Mentation: is normal, appropriate for stated age, no acute changes, Memory: is normal, appropriate for stated age, no acute changes, Cranial nerves: grossly normal, Cerebellar function: is grossly normal, is grossly normal based on the patient's age, no acute changes, Motor: is normal, is grossly normal based on the patient's age, no acute changes, moves all fours, strength is 5/5 in all extremities, Sensation: is normal, no obvious gross deficits, appropriate Gait: not tested. Deep tendon reflexes are 2+ (normal) in the bilateral brachioradialis, bicep, tricep and patellar and Achilles tendons, Babinski testing is normal, seizure activity, is not displayed by the patient. 21:29 ECG was reviewed by the Attending Physician. [facility] Vital Signs: 19:16 BP 112 / 65; Pulse 73; Resp 16; Temp 98.7; Pulse Ox 100% on R/A; Weight 54.43 kg (R); jb4 Height 5 ft. 1 in. (154.94 cm) (R); Pain 0/10; 20:00 BP 113 / 67; Pulse 75; Resp 24; Pulse Ox 100% on R/A; jb4 21:00 BP 111 / 69; Pulse 86; Resp 18; Pulse Ox 100% on R/A; jb4 22:15 BP 106 / 76; Pulse 88; Resp 21; Pulse Ox 100% on R/A; jb4 22:45 BP 102 / 69; Pulse 77; Resp 16; Pulse Ox 100% on R/A; jb4 19:16 Body Mass Index 22.67 (54.43 kg, 154.94 cm) [facility] MDM: 19:19 Patient medically screened. [facility] 21:26 Differential diagnosis: drug overdose, cardiac arrhythmia, seizure. Data reviewed: [facility] vital signs, nurses notes, EMS record, lab test result(s), EKG, radiologic studies, CT scan. Data interpreted: pheresis specialist: rate is 73 beats/min, rhythm is regular, Pulse oximetry: on room air is 100 %. Test interpretation: by ED physician or midlevel provider: ECG, plain radiologic studies. Counseling: I had a detailed discussion with the patient and/or guardian regarding: the historical points, exam findings, and any diagnostic results supporting the discharge/admit diagnosis, lab results, radiology results, the need for outpatient follow up, for definitive care, 01/21 19:20 Order name: Acetaminophen; Complete Time: :16 [facility] 01/21 19:20 Order name: Basic Metabolic Panel; Complete Time: : [facility] 01/21 19:20 Order name: CBC with Diff; Complete Time: : [facility] 01/21 19:20 Order name: ETOH Level; Complete Time: : [facility] 01/21 19:20 Order name: Hepatic Function; Complete Time: : [facility] 01/21 19:20 Order name: PT-INR; Complete Time: : [facility] 01/21 19:20 Order name: Ptt, Activated; Complete Time: : [facility] 01/21 19:20 Order name: Salicylate; Complete Time: : [facility] 01/21 19:20 Order name: Urine Drug Screen; Complete Time: 22:23 [facility] 01/21 20:12 Order name: CT Head Brain wo Cont; Complete Time: 22:23 [facility] 01/21 21:20 Order name: Urine Dipstick-Ancillary; Complete Time: 22:23 EDMS 01/21 21:20 Order name: Urine --Ancillary (enter results); Complete Time: 22:23 ds4 01/21 19:20 Order name: EKG; Complete Time: 19:21 [facility] 01/21 19:20 Order name: EKG - Nurse/Tech; Complete Time: 19:52 [facility] 01/21 19:20 Order name: IV Saline Lock; Complete Time: 19:22 [facility] 01/21 19:20 Order name: Labs collected and sent; Complete Time: 19:52 [facility] 01/21 19:20 Order name: Urine Dipstick-Ancillary (obtain specimen); Complete Time: 21:24 [facility] 01/21 19:20 Order name: Urine Test (obtain specimen); Complete Time: 21:24 [facility] 01/21 19:20 Order name: Seizure Precautions; Complete Time: 19:47 [facility] 01/21 22:25 Order name: PO challenge: juice; Complete Time: 22:37 [facility] EC:29 Rate is 71 beats/min. Rhythm is regular. QRS [place] is Normal. [place] interval is normal. QRS karishma interval is normal. QT interval is normal. No Q waves. T waves are Normal. No ST changes noted. Clinical impression: NSR w/ Non-specific ST/T Changes and No evidence of ischemia. Administered Medications: 20:09 Drug: Keppra (levETIRAcetam) 1000 mg Route: IV; Rate: per protocol; Site: right jb4 antecubital; 20:10 Drug: NS 0.9% 1000 ml Route: IV; Rate: 1 bolus; Site: right antecubital; jb4 20:32 Drug: Depacon (valproic acid) 500 mg Volume: 5 ml; Route: IV; Rate: calculated rate; jb4 Site: right antecubital; Disposition Summary: 01/21/22 22:27 Discharge Ordered Location: Home karishma Problem: new karishma Symptoms: have improved karishma Condition: Stable karishma Diagnosis - Epileptic seizures related to external causes, not intractable karishma - Hypokalemia karishma Followup: karishma - With: Private Physician - When: 2 - 3 days - Reason: Recheck today's complaints, Continuance of care, Re-evaluation by your physician Followup: karishma - With: - When: 2 - 3 days - Reason: Recheck today's complaints, Re-evaluation by your physician Discharge Instructions: - Discharge Summary Sheet karishma - Seizure, Adult karishma - Seizure, Adult, [id number] karishma Forms: - Medication Reconciliation Form karishma - Thank You Letter karishma - Antibiotic Education karishma - Prescription Opioid Use karishma Prescriptions: - Depakote 500 mg Oral Tablet - take 1 tablet by ORAL route every 12 hours; 60 tablet; Refills: 0, Product karishma Selection Permitted - Keppra 500 mg Oral Tablet - take 2 tablet by ORAL route every 12 hours; 60 tablet; Refills: 0, Product karishma Selection Permitted Signatures: Dispatcher [employer] Van Vela MD MD cha Bryson, James RN RN jb4 Corrections: (The following items were deleted from the chart) 19:22 19:20 Suicide Screening ([place]) ordered. [facility]
[2022-01-23 07:30] VITALS: TEMP 98.7; O2SAT 100
[2022-01-23 07:42] VITALS: BP 102/69
== END 2022-01-21 23:09 | disposition home or self-care (01) ==
LOC: ER 19:14
DX: G40.509 Epileptic seizures related to external causes, not intractable, without status epilepticus (principal); E87.6 Hypokalemia
CPT/HCPCS: 93005; 85025; 80048; 36415; 80320; 80329 ×2; 81025; 85610; 80076; 85730; 81003; 80307; 70450; 96375; 96374; 99285; J1953; J7030

== ENCOUNTER 2022-03-31 19:54 | Observation (INO) | payer BC ==
[2022-03-31] MEDS ORDERED: LEVETIRACETAM 500 MG/5 ML VIAL IV ONE (20:00)
--- OUTSIDE RECORDS SUMMARY | 2022-03-31 20:00 | XMS REPORT | Continuity of Care Document ---
:2000 Author Organization [facility] t Address [address] [place] [place] [address] Care Team Providers Name Role Phone Axel Sandoval MD Primary Care Physician TRISTEN PAUL Attending Clinician Unavailable AXEL SANDOVAL Attending Clinician Unavailable JEANNINE SHELL Attending Clinician Unavailable Axel Sandoval MD Attending Clinician CARMEN ZUÑGIA Attending Clinician Unavailable Jennifer Dennison MD Attending Clinician Sarthak Stern MD Attending Clinician Carmen Zuñiga MD Attending Clinician Jeannine Shell MD Attending Clinician 2, [facility] Lab Attending Clinician Unavailable Monet Goodwin MD Attending Clinician Jagdish THORNTON, Mike Bajwa Attending Clinician Unavailable Tristen Paul MD Attending Clinician BILLY HEARD Attending Clinician Unavailable BILLY HEARD Attending Clinician Unavailable Christina ALVARADO, Cecilia Cuenca Attending Clinician SY TIMMONS Attending Clinician Unavailable Mayo Henry MD Attending Clinician Sy Timmons MD Attending Clinician ROSY GOODE Attending Clinician Unavailable Shine ALVARADO, Rosy Attending Clinician Felicitas Khanna MD Attending Clinician FELICITAS KHANNA Attending Clinician Unavailable MONSE CHAVEZ Attending Clinician Unavailable Monse Chavez DO Attending Clinician JUSTIN CORTEZ Attending Clinician Unavailable Justin Cortez DO Attending Clinician BÁRBARA GILLIS Attending Clinician Unavailable Pcp-Lab Attending Clinician Unavailable Bárbara Gillis MD Attending Clinician Perla Knight MD Attending Clinician Doctor Unassigned, [place] Attending Clinician Unavailable KAVITHA MAC Attending Clinician Unavailable Kavitha Mac MD Attending Clinician THALIA NICHOLE Attending Clinician Unavailable Dionisio SECTIONIZERThalia Attending Clinician Luis Eduardo Myers DO Attending Clinician Lilo Hicks MD Attending Clinician LILO HICKS Attending Clinician Unavailable Kristy THORNTON, Carleen Gold Attending Clinician Unavailable Ranjit Robb MD Attending Clinician Only, Adc Test Attending Clinician Unavailable Neeraj Bryant MD Attending Clinician [phone] CECILIA VASQUEZ Attending Clinician Unavailable MILLY RIOS Attending Clinician Unavailable Milly Huerta Attending Clinician [phone] ALBERT RUIZ Attending Clinician Unavailable CARMEN ZUÑIGA Admitting Clinician Unavailable Carmen Zuñiga MD Admitting Clinician GITA HUNT Admitting Clinician Unavailable SY TIMMONS Admitting Clinician Unavailable Sy Timmons MD Admitting Clinician MONSE CHAVEZ Admitting Clinician Unavailable JUSTIN CORTEZ Admitting Clinician Unavailable Ranjit Robb MD Admitting Clinician JEANNINE SHELL Admitting Clinician Unavailable CECILIA VASQUEZ Admitting Clinician Unavailable TRISTEN PAUL Admitting Clinician Unavailable DEVIN SHEFFIELD Admitting Clinician Unavailable Payers Payer Name Policy Type Policy Number Effective Date Expiration Date S ource [employer] [place] [id number] 2021 EMPLOYEE PLAN 00:00:00 [employer] [place] [id number] 2022 WOMEN 00:00:00 [employer] [place] [id number] 2021 00:00:00 Problems Condition Condition Condition Status Onset Resolution Last Treating Co mments Source Name Details Category Date Date Treatment Clinician Date Seizure Seizure Disease Active 2021-05 Univers 1-13 ity of 00:00: [place] [facility] Syncope Syncope Disease Active 2021-05 Univers and and 0-05 ity of collapse collapse 00:00: [place] [facility] Branch Tremor Tremor Disease Active 2021-05 Univers 0-05 ity of 00:00: [place] [facility] Branch Dizziness Dizziness Disease Active 2021-05 Uni vers and and 0-05 ity of giddiness giddiness 00:00: [facility] s Medical Branch 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 palpitatio palpitatio 0-05 it y of ns ns 00:00: [place] 00 Medical Branch Anxiety Anxiety Disease Active 2021-05 Univers and and 0-05 ity of depression [place] Weakness Weakness Disease Active Unive rs 9-25 ity of 00:00: [place] 00 Medical Branch Seizure-li Seizure-li Disease Active U fracisco ke ke 4-11 ity of activity activity 00:00: [place] [facility] 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 3-07 ity of 00:00: [place] 00 Medical Branch Seizure Seizure Disease Active Univers disorder disorder 3-07 ity of 00:00: [place] 00 Medical Branch Numbness Numbness Disease Active Unive rs and and 6-17 ity of tingling tingling 00:00: [place] of both of both 00 Medical upper upper Branch extremitie extremitie s s 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 Social History Social Habit Start Date Stop Date Quantity Comments Source History SDOH University o f Alcohol Std [place] [facility] History SDOH University o f Alcohol Binge [place] [facility] History SDOH University o f Alcohol Comment [place] [facility] Exposure to 2022-03-07 2022-03-17 Not sure University SARS-CoV-2 00:00:00 13:56:00 [facility] (event) Branch Alcohol intake 2022-02-15 2022-02-15 Lifetime University of 00:00:00 00:00:00 non-drinker [facility] (finding) Branch Tobacco use and 2021-12-06 2021-12-06 Smokeless tobacco Un iversity of exposure 00:00:00 00:00:00 non-user [place] [facility] History SDOH 2021-09-10 2021-09-10 1 University o f Alcohol Frequency 00:00:00 00:00:00 [place] M edical [facility] Education 2020-09-07 2020-09-07 12 University of 00:00:00 00:00:00 [facility] Sex Assigned At [birth year] Universit y of 00:00:00 00:00:00 [facility] Smoking Status Start Date Stop Date Source Tobacco [facility] unknown Branch Never smoked tobacco [facility] Medications Ordered Filled Start Stop Current Ordering Indication Dosage Frequency Signature Comments Components Source Medication Medication Date Date Medication? Clinician (SIG) Name Name pantoprazol 2021-05 Yes 40mg 40 mg, Univ ers e 1-14 Oral, ity of (PROTONIX) 15:00: DAILY, [place] EC tablet 00 First dose Medi michael 40 mg on Mon Branch 03/21/22 at 0900, Until Discontinu ed, Routine levETIRAcet 2021-05 Yes 1500mg 1,500 mg, Univers am (KEPPRA) -14 Oral, BID, it y of tablet 14:00: First dose [place] 1,500 mg 00 on [facility] 03/21/22 Branch at 0800, Until Discontinu ed, Routine heparin 2021-05 Yes 5000U 5,000 Univers (porcine) 1-14 Units, ity of injection 14:00: [place] 5,000 Units 00 us, Q12H, Med ical First dose Branch on [facility] 03/21/22 at 0800, Until Discontinu ed, Routine levETIRAcet 2021-05 No 1500mg 1,500 mg, Univers am (KEPPRA) -14 14 IV ity of in NACL 06:15: 06:01 Piggyback, [place] as (ISO-OS) 00 :00 ONCE, 1 Medical 1,500 dose, On Branch mg/100 mL [facility] RTU 03/21/22 at 0015, Administer over 15 Minutes, 100 mL topiramate 2021-05 Yes 25mg 25 mg, Unive rs (TOPAMAX) 1-14 Oral, BID, ity of tablet 25 05:45: [place] [facility] on [facility] 03/20/22 Branch at 2345, Until Discontinu ed, Routine
membership counselor approving Restricted medication : CARMEN ZUÑIGA lacosamide 2021-05 Yes 50mg 50 mg, Unive rs (VIMPAT) 1-14 Oral, BID, ity o f tablet 50 04:00: [place] 00 on [facility] 03/20/22 Branch at 2200, Until Discontinu ed, Routine
membership counselor approving Restricted medication : CARMEN ZUÑIGA NaCl 0.9% 2021-05 Yes 1000mL at 75 Unive rs (NS) IV 1-14 mL/hr, IV ity of infusion 04:00: [place] 1,000 mL 00 CONTINUOUS Medic al , Starting Branch on [facility] 03/20/22 at 2200, Until Discontinu ed, Routine LORazepam 2021-05 Yes 2mg 2 mg, Slow Un ramses (ATIVAN) 05-21 IV Push, ity of injection 2 03:59: PRN, 5 [place] mg 33 doses, Medical Starting Branch on [facility] 03/20/22 at 2159, Until Discontinu ed, Routine, Seizures acetaminoph 2021-05 Yes 650mg 650 mg, Un ramses en -14 Oral, ity of (TYLENOL) 03:52: Q6HPRN, [place] tablet 650 20 Starting Medic al mg on [facility] Branch 03/20/22 at 2152, Until Discontinu ed, Routine, Pain (scale 4-6) docusate 2021-05 Yes 100mg 100 mg, Unive rs (COLACE) -14 Oral, ity of capsule 100 03:52: QDAILYPRN, [place] mg 20 Starting Medical on [facility] Branch 03/20/22 at 2152, Until Discontinu ed, Routine, Constipati on NaCl 0.9% 2021-05- No 1000mL at 999 Uni vers (NS) bolus 05-21 11-14 mL/hr, ity of infusion 00:15: 00:00 1,000 mL, [place] as 1,000 mL 00 :00 IV Medical Infusion, Branch ONCE, 1 dose, On [facility] 03/20/22 at 1815, STAT LORazepam 2021-05- No 2mg 2 mg, Slow U nivers (ATIVAN) 05-20 IV Push, ity of injection 2 23:45: 23:43 ONCE, 1 [place] mg 00 :00 dose, On [facility] 03/20/22 at 1745, STAT lacosamide 2021-05 Yes [id number] 50mg Take 1 U nivers (VIMPAT) 50 1-10 tablet by ity of mg tablet 00:00: [place] the Medical morning Branch and 1 tablet in the evening. lacosamide 2021-05 Yes [id number] 50mg Take 1 U nivers (VIMPAT) 50 1-10 tablet by ity of mg tablet 00:00: [place] 00 the Medical morning Branch and 1 tablet in the evening. lacosamide 2021-05 Yes [id number] 50mg Take 1 U nivers (VIMPAT) 50 1-10 tablet by ity of mg tablet 00:00: [place] the [place] and 1 tablet in the evening. lacosamide 2021-05 Yes [id number] 50mg Take 1 U nivers (VIMPAT) 50 1-10 tablet by ity of mg tablet 00:00: [place] 00 the Medical morning Branch and 1 tablet in the evening. lacosamide 2021-05 Yes [id number] 50mg Take 1 U nivers (VIMPAT) 50 1-10 tablet by ity of mg tablet 00:00: [place] 00 the Medical morning Branch and 1 tablet in the evening. lacosamide 2021-05 Yes [id number] 50mg Take 1 U nivers (VIMPAT) 50 1-10 tablet by ity of mg tablet 00:00: [place] the Medical morning Branch and 1 tablet in the evening. topiramate 2021-05 Yes [id number] 25mg Take 1 Univers 25 mg 1-03 tablet by ity of tablet 00:00: mouth in [place] 00 the Medical morning Branch and 1 tablet in the evening. topiramate 2021-05 Yes [id number] 25mg Take 1 Univers 25 mg 1-03 tablet by ity of tablet 00:00: mouth in [place] 00 the Medical morning Branch and 1 tablet in the evening. topiramate 2021-05 Yes [id number] 25mg Take 1 Univers 25 mg 1-03 tablet by ity of tablet 00:00: mouth in [place] 00 the Medical morning Branch and 1 tablet in the evening. topiramate 2021-05 Yes [id number] 25mg Take 1 Univers 25 mg 1-03 tablet by ity of tablet 00:00: mouth in [place] 00 the Medical morning Branch and 1 tablet in the evening. topiramate 2021-05 Yes [id number] 25mg Take 1 Univers 25 mg 1-03 tablet by ity of tablet 00:00: mouth in [place] 00 the Medical morning Branch and 1 tablet in the evening. topiramate 2021-05 Yes [id number] 25mg Take 1 Univers 25 mg 1-03 tablet by ity of tablet 00:00: mouth in [place] 00 the Medical morning Branch and 1 tablet in the evening. topiramate 2021-05 Yes [id number] 25mg Take 1 Univers 25 mg 1-03 tablet by ity of tablet 00:00: mouth in [place] 00 the Medical morning Branch and 1 tablet in the evening. topiramate 2021-05 Yes [id number] 25mg Take 1 Univers 25 mg 1-03 tablet by ity of tablet 00:00: mouth in [address] and 1 tablet in the evening. topiramate 2021-05 Yes [id number] 25mg Take 1 Univers 25 mg 1-03 tablet by ity of tablet 00:00: mouth in [address] and 1 tablet in the evening. topiramate Yes 25mg 25 mg, Unive rs (TOPAMAX) 01-31 Oral, ity of tablet 25 17:30: DAILY, [place] mg 00 First dose Medical on [facility] 01/31/22 at 1230, Until Discontinu ed, Routine
membership counselor approving Restricted medication : CECILIA VASQUEZ SERTraline Yes 25mg 25 mg, Unive rs (ZOLOFT) 01-31 Oral, ity of tablet 25 14:00: DAILY, [place] mg 00 First dose Medical on [facility] 01/31/22 at 0900, Until Discontinu ed, Routine foLIC acid Yes 1mg 1 mg, Univer s (FOLATE) 01-31 Oral, ity of tablet 1 mg 14:00: DAILY, [place] First dose Medical on [facility] 01/31/22 at 0900, Until Discontinu ed, Routine heparin Yes 5000U 5,000 Univers (porcine) 01-31 Units, ity of injection 13:00: [place] 5,000 Units 00 us, Q12H, Med ica First dose Branch on [facility] 01/31/22 at 0800, Until Discontinu ed, Routine levETIRAcet Yes 1500mg 1,500 mg, Univers am (KEPPRA) 01-31 Oral, BID, it y of tablet 13:00: First dose [place] 1,500 mg 00 on [facility] 01/31/22 at Branch 0800, Until Discontinu ed, Routine acetaminoph Yes 650mg 650 mg, Un ramses en 01-31 Oral, ity of (TYLENOL) 04:06: Q6HPRN, [place] tablet 650 49 Starting Medic al [facility] 01/30/22 at 2306, Until Discontinu ed, Routine, Pain (scale 4-6) docusate Yes 100mg 100 mg, Unive rs (COLACE) 01-31 Oral, ity of capsule 100 04:06: QDAILYPRN, [place] mg 48 Starting Medical on [facility] 01/30/22 at 2306, Until Discontinu ed, Routine, Constipati on ondansetron 0 Yes 4mg 4 mg, Unive rs (ZOFRAN-ODT 01-31 Oral, ity of ) 04:06: Q8HPRN, [place] disintegrat 36 Starting Medi michael ing tablet on [facility] 4 mg 01/30/22 at 2306, Until Discontinu ed, Routine, Nausea and Vomiting (N/V) acetaminoph Yes 650mg 650 mg, Un ramses en 01-31 Oral, ity of (TYLENOL) 04:06: Q6HPRN, [place] tablet 650 15 Starting Medic al mg on [facility] 01/30/22 at 2306, Until Discontinu ed, Routine, Pain (scale 1-3), Temp > 38.5 C LORazepam 2021- No .5mg 0.5 mg, Univ ers (ATIVAN) 01-31 Slow IV ity of injection 01:30: 00:35 Push, [place] 0.5 mg 00 :00 ONCE, 1 Medical dose, On [facility] 01/30/22 at 2030, STAT
Is the medication being used for status epilepticu s? No topiramate 2022- Yes [id number] 25mg Take 1 Univers 25 mg 01-31 tablet by ity of tablet 00:00: 04:59 mouth in [place] 00 :00 [facility] for 180 days. topiramate 2022- Yes [id number] 25mg Take 1 Univers 25 mg -31 07- tablet by ity of tablet 00:00: 04:59 mouth in [place] 00 :00 [facility] for 180 days. topiramate 2022- Yes [id number] 25mg Take 1 Univers 25 mg 01-31 tablet by ity of tablet 00:00: 04:59 mouth in [place] 00 :00 [facility] for 180 days. topiramate 2022- Yes [id number] 25mg Take 1 Univers 25 mg 9-26 03-26 tablet by ity of tablet 00:00: 04:59 mouth in [place] 00 :00 the Medical morning Branch for 180 days. topiramate 2022- Yes [id number] 25mg Take 1 Univers 25 mg 9-26 03-26 tablet by ity of tablet 00:00: 04:59 mouth in [place] 00 :00 the Medical morning Branch for 180 days. topiramate 2022- Yes [id number] 25mg Take 1 Univers 25 mg 9-26 03-26 tablet by ity of tablet 00:00: 04:59 mouth in [place] 00 :00 the Medical morning Branch for 180 days. topiramate 2022- Yes [id number] 25mg Take 1 Univers 25 mg 9-26 03-26 tablet by ity of tablet 00:00: 04:59 mouth in [place] 00 :00 the Medical morning Branch for 180 days. topiramate 2022- Yes [id number] 25mg Take 1 Univers 25 mg 9-26 03-26 tablet by ity of tablet 00:00: 04:59 mouth in [place] 00 :00 the Medical morning Branch for 180 days. topiramate 2022- Yes [id number] 25mg Take 1 Univers 25 mg 9-26 03-26 tablet by ity of tablet 00:00: 04:59 mouth in [place] 00 :00 the Medical morning Branch for 180 days. topiramate 2022- Yes [id number] 25mg Take 1 Univers 25 mg 9-26 03-26 tablet by ity of tablet 00:00: 04:59 mouth in [place] 00 :00 the [facility] morning Branch for 180 days. topiramate 2022- Yes [id number] 25mg Take 1 Univers 25 mg 9-26 03-26 tablet by ity of tablet 00:00: 04:59 mouth in [place] 00 :00 the Medical morning Branch for 180 days. topiramate 2021- No [id number] 25mg Take 1 Univers 25 mg 9-26 11-03 tablet by ity of tablet 00:00: 00:00 mouth in [place] 00 :00 the Medical morning Branch for 180 days. topiramate 2021- No [id number] 25mg Take 1 Univers 25 mg 01-31 tablet by ity of tablet 00:00: 00:00 mouth in [place] 00 :00 the [facility] for 180 days. levETIRAcet 2021- No 1000mg 1,000 mg, Univers am (KEPPRA) 01-31 IV ity of in NACL 00:00: 23:38 Piggyback, Christiano as (ISO-OS) 00 :00 ONCE, 1 Medical 1,000 dose, On Branch mg/100 mL [place] RTU 01/30/22 at 1900, Administer over 15 Minutes, 100 mL NaCl 0.9% 2021- No 1000mL at 999 Uni vers (NS) bolus 01-30 mL/hr, ity of infusion 22:30: 23:15 1,000 mL, [place] 1,000 mL 00 :00 IV Medical Infusion, Branch ONCE, 1 dose, On 01/30/22 at 1730, ALEKSANDAR LORazepam 2021- No .5mg 0.5 mg, Univ ers (ATIVAN) 01-30 Slow IV ity of injection 22:00: 21:59 Push, [place] 0.5 mg 00 :00 ONCE, 1 Medical dose, On Branch 01/30/22 at 1700, STAT
Is the medication being used for status epilepticu s? No levETIRAcet 2022- Yes [id number] 1500mg Take 2 Univers am 750 mg 01-27 tablets by ity of tablet 00:00: 04:59 mouth in [place] 00 :00 the [facility] and 2 tablets in the evening. Do all this for 180 days. foLIC acid 2022- Yes [id number] 1mg Take 1 Univers 1 mg tablet 01-27 tablet by it y of 00:00: 04:59 mouth in [place] 00 :00 the [facility] for 180 days. levETIRAcet 2022- Yes [id number] 1500mg Take 2 Univers am 750 mg 01-27 tablets by ity of tablet 00:00: 04:59 mouth in [place] 00 :00 [facility] and 2 tablets in the evening. Do all this for 180 days. foLIC acid 2022- Yes [id number] 1mg Take 1 Univers 1 mg tablet 01-27 tablet by it y of 00:00: 04:59 mouth in [place] 00 :00 the [facility] for 180 days. levETIRAcet 2022- Yes [id number] 1500mg Take 2 Univers am 750 mg 01-27 tablets by ity of tablet 00:00: 04:59 mouth in [place] 00 :00 the [facility] Branch and 2 tablets in the evening. Do all this for 180 days. foLIC acid 2022- Yes [id number] 1mg Take 1 Univers 1 mg tablet 01-27 tablet by it y of 00:00: 04:59 mouth in [place] 00 :00 the [facility] for 180 days. levETIRAcet 2022- Yes [id number] 1500mg Take 2 Univers am 750 mg 01-27 tablets by ity of tablet 00:00: 04:59 mouth in [place] 00 :00 the [facility] and 2 tablets in the evening. Do all this for 180 days. foLIC acid 2022- Yes [id number] 1mg Take 1 Univers 1 mg tablet 01-27 tablet by it y of 00:00: 04:59 mouth in [place] 00 :00 the [facility] for 180 days. levETIRAcet 2022- Yes [id number] 1500mg Take 2 Univers am 750 mg 01-27 tablets by ity of tablet 00:00: 04:59 mouth in [place] 00 :00 the [facility] and 2 tablets in the evening. Do all this for 180 days. foLIC acid 2022- Yes [id number] 1mg Take 1 Univers 1 mg tablet 01-27 tablet by it y of 00:00: 04:59 mouth in [place] 00 :00 the [facility] for 180 days. levETIRAcet 2022- Yes [id number] 1500mg Take 2 Univers am 750 mg 01-27 tablets by ity of tablet 00:00: 04:59 mouth in [place] 00 :00 the [facility] and 2 tablets in the evening. Do all this for 180 days. foLIC acid 2022- Yes [id number] 1mg Take 1 Univers 1 mg tablet 01-27 tablet by it y of 00:00: 04:59 mouth in [place] 00 :00 the [facility] for 180 days. levETIRAcet 2022- Yes [id number] 1500mg Take 2 Univers am 750 mg 01-27 tablets by ity of tablet 00:00: 04:59 mouth in [place] 00 :00 the [facility] and 2 tablets in the evening. Do all this for 180 days. foLIC acid 2022- Yes [id number] 1mg Take 1 Univers 1 mg tablet 01-27 tablet by it y of 00:00: 04:59 mouth in [place] 00 :00 the [facility] for 180 days. levETIRAcet 2022- Yes [id number] 1500mg Take 2 Univers am 750 mg 01-27 tablets by ity of tablet 00:00: 04:59 mouth in [place] 00 :00 [facility] and 2 tablets in the evening. Do all this for 180 days. foLIC acid 2022- Yes [id number] 1mg Take 1 Univers 1 mg tablet 01-27 tablet by it y of 00:00: 04:59 mouth in [place] 00 :00 [facility] for 180 days. levETIRAcet 2022- Yes [id number] 1500mg Take 2 Univers am 750 mg 01-27 tablets by ity of tablet 00:00: 04:59 mouth in [place] 00 :00 [facility] and 2 tablets in the evening. Do all this for 180 days. foLIC acid 2022- Yes [id number] 1mg Take 1 Univers 1 mg tablet 01-27 tablet by it y of 00:00: 04:59 mouth in [place] 00 :00 [facility] for 180 days. levETIRAcet 2022- Yes [id number] 1500mg Take 2 Univers am 750 mg 01-27 tablets by ity of tablet 00:00: 04:59 mouth in [place] 00 :00 [facility] and 2 tablets in the evening. Do all this for 180 days. foLIC acid 2022- Yes [id number] 1mg Take 1 Univers 1 mg tablet 01-27 tablet by it y of 00:00: 04:59 mouth in [place] 00 :00 [facility] for 180 days. levETIRAcet 2022- Yes [id number] 1500mg Take 2 Univers am 750 mg 01-27 tablets by ity of tablet 00:00: 04:59 mouth in [place] 00 :00 the [facility] and 2 tablets in the evening. Do all this for 180 days. foLIC acid 2022- Yes [id number] 1mg Take 1 Univers 1 mg tablet 01-27 tablet by it y of 00:00: 04:59 mouth in [place] 00 :00 the [facility] for 180 days. levETIRAcet 2022- Yes [id number] 1500mg Take 2 Univers am 750 mg 01-27 tablets by ity of tablet 00:00: 04:59 mouth in [place] 00 :00 the [facility] and 2 tablets in the evening. Do all this for 180 days. foLIC acid 2022- Yes [id number] 1mg Take 1 Univers 1 mg tablet 01-27 tablet by it y of 00:00: 04:59 mouth in [place] 00 :00 the [facility] for 180 days. levETIRAcet 2022- Yes [id number] 1500mg Take 2 Univers am 750 mg 01-27 tablets by ity of tablet 00:00: 04:59 mouth in [place] 00 :00 [facility] and 2 tablets in the evening. Do all this for 180 days. foLIC acid 2022- Yes [id number] 1mg Take 1 Univers 1 mg tablet 01-27 tablet by it y of 00:00: 04:59 mouth in [place] 00 :00 the [facility] for 180 days. levETIRAcet 2022- Yes [id number] 1500mg Take 2 Univers am 750 mg 01-27 tablets by ity of tablet 00:00: 04:59 mouth in [place] 00 :00 the [facility] and 2 tablets in the evening. Do all this for 180 days. foLIC acid 2022- Yes [id number] 1mg Take 1 Univers 1 mg tablet 01-27 tablet by it y of 00:00: 04:59 mouth in [place] 00 :00 the [facility] for 180 days. levETIRAcet 2022- Yes [id number] 1500mg Take 2 Univers am 750 mg 01-27 tablets by ity of tablet 00:00: 04:59 mouth in [place] 00 :00 the Medical morning Branch and 2 tablets in the evening. Do all this for 180 days. foLIC acid 2022- Yes [id number] 1mg Take 1 Univers 1 mg tablet 01-27 tablet by it y of 00:00: 04:59 mouth in [place] 00 :00 the [facility] for 180 days. levETIRAcet 2022- Yes [id number] 1500mg Take 2 Univers am 750 mg 01-27 tablets by ity of tablet 00:00: 04:59 mouth in [place] 00 :00 the [facility] morning Branch and 2 tablets in the evening. Do all this for 180 days. foLIC acid 2022- Yes [id number] 1mg Take 1 Univers 1 mg tablet 01-27 tablet by it y of 00:00: 04:59 mouth in [place] 00 :00 the [facility] for 180 days. levETIRAcet 2022- Yes [id number] 1500mg Take 2 Univers am 750 mg 01-27 tablets by ity of tablet 00:00: 04:59 mouth in [place] 00 :00 the [facility] and 2 tablets in the evening. Do all this for 180 days. foLIC acid 2022- Yes [id number] 1mg Take 1 Univers 1 mg tablet 01-27 tablet by it y of 00:00: 04:59 mouth in [place] 00 :00 the [facility] for 180 days. levETIRAcet 2022- Yes [id number] 1500mg Take 2 Univers am 750 mg 01-27 tablets by ity of tablet 00:00: 04:59 mouth in [place] 00 :00 the [facility] morning Branch and 2 tablets in the evening. Do all this for 180 days. foLIC acid 2022- Yes [id number] 1mg Take 1 Univers 1 mg tablet 01-27 tablet by it y of 00:00: 04:59 mouth in [place] 00 :00 the [facility] morning [facility] for 180 days. levETIRAcet 2022- Yes [id number] 1500mg Take 2 Univers am 750 mg 01-27 tablets by ity of tablet 00:00: 04:59 mouth in [place] 00 :00 the Medical morning Branch and 2 tablets in the evening. Do all this for 180 days. foLIC acid 2022- Yes [id number] 1mg Take 1 Univers 1 mg tablet 01-27 tablet by it y of 00:00: 04:59 mouth in [place] 00 :00 the [facility] morning Branch for 180 days. levETIRAcet 2022- Yes [id number] 1500mg Take 2 Univers am 750 mg 01-27 tablets by ity of tablet 00:00: 04:59 mouth in [place] 00 :00 the [facility] morning Branch and 2 tablets in the evening. Do all this for 180 days. foLIC acid 2022- Yes [id number] 1mg Take 1 Univers 1 mg tablet 01-27 tablet by it y of 00:00: 04:59 mouth in [place] 00 :00 the [facility] for 180 days. levETIRAcet 2022- Yes [id number] 1500mg Take 2 Univers am 750 mg 01-27 tablets by ity of tablet 00:00: 04:59 mouth in [place] 00 :00 the [facility] and 2 tablets in the evening. Do all this for 180 days. foLIC acid 2022- Yes [id number] 1mg Take 1 Univers 1 mg tablet 01-27 tablet by it y of 00:00: 04:59 mouth in [place] 00 :00 the [facility] for 180 days. levETIRAcet 2022- Yes [id number] 1500mg Take 2 Univers am 750 mg 01-27 tablets by ity of tablet 00:00: 04:59 mouth in [place] 00 :00 the [facility] and 2 tablets in the evening. Do all this for 180 days. foLIC acid 2022- Yes [id number] 1mg Take 1 Univers 1 mg tablet 01-27 tablet by it y of 00:00: 04:59 mouth in [place] 00 :00 the [facility] for 180 days. levETIRAcet 2022- Yes [id number] 1500mg Take 2 Univers am 750 mg 01-27 tablets by ity of tablet 00:00: 04:59 mouth in [place] 00 :00 the Medical morning Branch and 2 tablets in the evening. Do all this for 180 days. foLIC acid 2022- Yes [id number] 1mg Take 1 Univers 1 mg tablet 01-27 tablet by it y of 00:00: 04:59 mouth in [place] 00 :00 the [facility] for 180 days. levETIRAcet 2022- Yes [id number] 1500mg Take 2 Univers am 750 mg 01-27 tablets by ity of tablet 00:00: 04:59 mouth in [place] 00 :00 the [facility] and 2 tablets in the evening. Do all this for 180 days. foLIC acid 2022- Yes [id number] 1mg Take 1 Univers 1 mg tablet 01-27 tablet by it y of 00:00: 04:59 mouth in [place] 00 :00 the [facility] for 180 days. levETIRAcet 2022- Yes [id number] 1500mg Take 2 Univers am 750 mg 01-27 tablets by ity of tablet 00:00: 04:59 mouth in [place] 00 :00 [facility] and 2 tablets in the evening. Do all this for 180 days. foLIC acid 2022- Yes [id number] 1mg Take 1 Univers 1 mg tablet 01-27 tablet by it y of 00:00: 04:59 mouth in [place] 00 :00 [facility] for 180 days. levETIRAcet 2021- No 750mg Take 750 Univers am (KEPPRA) 8-19 08-19 mg by ity of 750 mg 15:54: 00:00 mouth in [place] tablet 35 :00 [facility] and 750 mg in the evening. levETIRAcet 2021-0 Yes [id number] 1000mg Take 1 Univers am (KEPPRA) 8-19 tablet by ity of 1,000 mg 00:00: mouth in [place] tablet 00 [facility] and 1 tablet in the evening. levETIRAcet 2021-0 Yes [id number] 1000mg Take 1 Univers am (KEPPRA) 8-19 tablet by ity of 1,000 mg 00:00: mouth in [place] tablet 00 [facility] and 1 tablet in the evening. levETIRAcet 2021-0 Yes [id number] 1000mg Take 1 Univers am (KEPPRA) - tablet by ity of 1,000 mg 00:00: mouth in [place] tablet 00 the Medical morning Branch and 1 tablet in the evening. levETIRAcet 2021-2021- No [id number] 1000mg Take 1 Univers am (KEPPRA) 12-24 tablet by it y of 1,000 mg 00:00: 00:[place]00 [place] Medical morning Branch and 1 tablet in the evening. levETIRAcet 2021-2021- No [id number] 1000mg Take 1 Univers am (KEPPRA) 12-24 tablet by it y of 1,000 mg 00:00: 00:[place] :00 the [facility] morning Branch and 1 tablet in the evening. levETIRAcet 2021- No [id number] 1000mg Take 1 Univers am (KEPPRA) 12-24 tablet by it y of 1,000 mg 00:00: 00:00 [place] :00 the [facility] morning Branch and 1 tablet in the evening. SERTraline Yes [id number] 25mg Take 1 U nivers 25 mg 8-01 tablet by ity of tablet 00:00: mouth in [place] 00 the Medical morning. Branch SERTraline Yes [id number] 25mg Take 1 U nivers 25 mg 8-01 tablet by ity of tablet 00:00: mouth in [place] 00 the Medical morning. Branch SERTraline 0 Yes [id number] 25mg Take 1 U nivers 25 mg 8-01 tablet by ity of tablet 00:00: mouth in [place] 00 the Medical morning. Branch SERTraline 0 Yes [id number] 25mg Take 1 U nivers 25 mg 8-01 tablet by ity of tablet 00:00: mouth in [place] 00 the Medical morning. Branch SERTraline 0 Yes [id number] 25mg Take 1 U nivers 25 mg 8-01 tablet by ity of tablet 00:00: mouth in [place] 00 the Medical morning. Branch SERTraline 0 Yes [id number] 25mg Take 1 U nivers 25 mg 8-01 tablet by ity of tablet 00:00: mouth in [place] 00 the Medical morning. Branch SERTraline 2021-0 Yes [id number] 25mg Take 1 U nivers 25 mg 8-01 tablet by ity of tablet 00:00: mouth in [place] 00 the Medical morning. Branch SERTraline 0 Yes [id number] 25mg Take 1 U nivers 25 mg 8-01 tablet by ity of tablet 00:00: mouth in [place] 00 the Medical morning. Branch SERTraline 0 Yes [id number] 25mg Take 1 U nivers 25 mg 8-01 tablet by ity of tablet 00:00: mouth in [place] 00 the Medical morning. Branch SERTraline 2021-0 Yes [id number] 25mg Take 1 U nivers 25 mg 8-01 tablet by ity of tablet 00:00: mouth in [place] 00 the Medical morning. Branch SERTraline 0 Yes [id number] 25mg Take 1 U nivers 25 mg 8-01 tablet by ity of tablet 00:00: mouth in [place] 00 the Medical morning. Branch SERTraline 0 Yes [id number] 25mg Take 1 U nivers 25 mg 8-01 tablet by ity of tablet 00:00: mouth in [place] 00 the Medical morning. Branch SERTraline 2021-2021- No [id number] 25mg Take 1 Univers 25 mg 8-01 10-05 tablet by ity of tablet 00:00: 00:00 mouth in [place] 00 :00 the Medical morning. Branch SERTraline 2021-2021- No [id number] 25mg Take 1 Univers 25 mg 8-01 10-05 tablet by ity of tablet 00:00: 00:00 mouth in [place] 00 :00 the Medical morning. [facility] ondansetron Yes [id number] 4mg Take 1 Univers (ZOFRAN 6-23 tablet by ity of ODT) 4 mg 00:00: mouth [place] disintegrat 00 every 8 Medic al ing tablet (eight) Branch hours as needed for Nausea and Vomiting (N/V). ondansetron Yes [id number] 4mg Take 1 Univers (ZOFRAN 6-23 tablet by ity of ODT) 4 mg 00:00: mouth [place] disintegrat 00 every 8 Medic al ing tablet (eight) Branch hours as needed for Nausea and Vomiting (N/V). ondansetron Yes [id number] 4mg Take 1 Univers (ZOFRAN 6-23 tablet by ity of ODT) 4 mg 00:00: mouth [place] disintegrat 00 every 8 Medic al ing tablet (eight) Branch hours as needed for Nausea and Vomiting (N/V). ondansetron 2021-0 Yes [id number] 4mg Take 1 Univers (ZOFRAN 6-23 tablet by ity of ODT) 4 mg 00:00: mouth [place] disintegrat 00 every 8 Medic al ing tablet (eight) Branch hours as needed for Nausea and Vomiting (N/V). ondansetron 2020-0 Yes [id number] 4mg Take 1 Univers (ZOFRAN 6-23 tablet by ity of ODT) 4 mg 00:00: mouth [place] disintegrat 00 every 8 Medic al ing tablet (eight) Branch hours as needed for Nausea and Vomiting (N/V). ondansetron 2020-0 Yes [id number] 4mg Take 1 Univers (ZOFRAN 6-23 tablet by ity of ODT) 4 mg 00:00: mouth [place] disintegrat 00 every 8 Medic al ing tablet (eight) Branch hours as needed for Nausea and Vomiting (N/V). ondansetron 2020-0 Yes [id number] 4mg Take 1 Univers (ZOFRAN 6-23 tablet by ity of ODT) 4 mg 00:00: mouth [place] disintegrat 00 every 8 Medic al ing tablet (eight) Branch hours as needed for Nausea and Vomiting (N/V). ondansetron 2020-0 Yes [id number] 4mg Take 1 Univers (ZOFRAN 6-23 tablet by ity of ODT) 4 mg 00:00: mouth [place] disintegrat 00 every 8 Medic al ing tablet (eight) Branch hours as needed for Nausea and Vomiting (N/V). ondansetron 2020-0 Yes [id number] 4mg Take 1 Univers (ZOFRAN 6-23 tablet by ity of ODT) 4 mg 00:00: mouth [place] disintegrat 00 every 8 Medic al ing tablet (eight) Branch hours as needed for Nausea and Vomiting (N/V). ondansetron 2021-0 Yes [id number] 4mg Take 1 Univers (ZOFRAN 6-23 tablet by ity of ODT) 4 mg 00:00: mouth [place] disintegrat 00 every 8 Medic al ing tablet (eight) Branch hours as needed for Nausea and Vomiting (N/V). ondansetron 2021-0 Yes [id number] 4mg Take 1 Univers (ZOFRAN 6-23 tablet by ity of ODT) 4 mg 00:00: mouth [place] disintegrat 00 every 8 Medic al ing tablet (eight) Branch hours as needed for Nausea and Vomiting (N/V). ondansetron 2021-0 Yes [id number] 4mg Take 1 Univers (ZOFRAN 6-23 tablet by ity of ODT) 4 mg 00:00: mouth [place] disintegrat 00 every 8 Medic al ing tablet (eight) Branch hours as needed for Nausea and Vomiting (N/V). ondansetron 2021-0 Yes [id number] 4mg Take 1 Univers (ZOFRAN 6-23 tablet by ity of ODT) 4 mg 00:00: mouth [place] disintegrat 00 every 8 Medic al ing tablet (eight) Branch hours as needed for Nausea and Vomiting (N/V). ondansetron 2021-0 Yes [id number] 4mg Take 1 Univers (ZOFRAN 6-23 tablet by ity of ODT) 4 mg 00:00: mouth [place] disintegrat 00 every 8 Medic al ing tablet (eight) Branch hours as needed for Nausea and Vomiting (N/V). ondansetron 2021-0 Yes [id number] 4mg Take 1 Univers (ZOFRAN 6-23 tablet by ity of ODT) 4 mg 00:00: mouth [place] disintegrat 00 every 8 Medic al ing tablet (eight) Branch hours as needed for Nausea and Vomiting (N/V). ondansetron 2021-0 Yes [id number] 4mg Take 1 Univers (ZOFRAN 6-23 tablet by ity of ODT) 4 mg 00:00: mouth [place] disintegrat 00 every 8 Medic al ing tablet (eight) Branch hours as needed for Nausea and Vomiting (N/V). ondansetron 2021-0 Yes [id number] 4mg Take 1 Univers (ZOFRAN 6-23 tablet by ity of ODT) 4 mg 00:00: mouth [place] disintegrat 00 every 8 Medic al ing tablet (eight) Branch hours as needed for Nausea and Vomiting (N/V). ondansetron 2021-0 Yes [id number] 4mg Take 1 Univers (ZOFRAN 6-23 tablet by ity of ODT) 4 mg 00:00: mouth [place] disintegrat 00 every 8 Medic al ing tablet (eight) Branch hours as needed for Nausea and Vomiting (N/V). ondansetron 2021-0 Yes [id number] 4mg Take 1 Univers (ZOFRAN 6-23 tablet by ity of ODT) 4 mg 00:00: mouth [place] disintegrat 00 every 8 Medic al ing tablet (eight) Branch hours as needed for Nausea and Vomiting (N/V). ondansetron 2021-0 Yes [id number] 4mg Take 1 Univers (ZOFRAN 6-23 tablet by ity of ODT) 4 mg 00:00: mouth [place] disintegrat 00 every 8 Medic al ing tablet (eight) Branch hours as needed for Nausea and Vomiting (N/V). ondansetron 2021-0 Yes [id number] 4mg Take 1 Univers (ZOFRAN 6-23 tablet by ity of ODT) 4 mg 00:00: mouth [place] disintegrat 00 every 8 Medic al ing tablet (eight) Branch hours as needed for Nausea and Vomiting (N/V). ondansetron 2021-0 Yes [id number] 4mg Take 1 Univers (ZOFRAN 6-23 tablet by ity of ODT) 4 mg 00:00: mouth [place] disintegrat 00 every 8 Medic al ing tablet (eight) Branch hours as needed for Nausea and Vomiting (N/V). ondansetron 2021-0 Yes [id number] 4mg Take 1 Univers (ZOFRAN 6-23 tablet by ity of ODT) 4 mg 00:00: mouth [place] disintegrat 00 every 8 Medic al ing tablet (eight) Branch hours as needed for Nausea and Vomiting (N/V). ondansetron 2021-0 Yes [id number] 4mg Take 1 Univers (ZOFRAN 6-23 tablet by ity of ODT) 4 mg 00:00: mouth [place] disintegrat 00 every 8 Medic al ing tablet (eight) Branch hours as needed for Nausea and Vomiting (N/V). ondansetron 2021-0 Yes [id number] 4mg Take 1 Univers (ZOFRAN 6-23 tablet by ity of ODT) 4 mg 00:00: mouth [place] disintegrat 00 every 8 Medic al ing tablet (eight) Branch hours as needed for Nausea and Vomiting (N/V). ondansetron 2021-0 Yes [id number] 4mg Take 1 Univers (ZOFRAN 6-23 tablet by ity of ODT) 4 mg 00:00: mouth [place] disintegrat 00 every 8 Medic al ing tablet (eight) Branch hours as needed for Nausea and Vomiting (N/V). ondansetron 2021-0 Yes [id number] 4mg Take 1 Univers (ZOFRAN 6-23 tablet by ity of ODT) 4 mg 00:00: mouth [place] disintegrat 00 every 8 Medic al ing tablet (eight) Branch hours as needed for Nausea and Vomiting (N/V). ondansetron 2021-0 Yes [id number] 4mg Take 1 Univers (ZOFRAN 6-23 tablet by ity of ODT) 4 mg 00:00: mouth [place] disintegrat 00 every 8 Medic al ing tablet (eight) Branch hours as needed for Nausea and Vomiting (N/V). acetaminoph 2020-0 Yes [id number] 650mg Take 2 Univers en 325 mg 6-20 tablets by ity of tablet 00:00: mouth [place] 00 every 6 Medical (six) Branch hours as needed for Pain (scale 1-3) or Temp > 38.5 C. acetaminoph 1-0 Yes [id number] 650mg Take 2 Univers en 325 mg 6-20 tablets by ity of tablet 00:00: mouth [place] 00 every 6 Medical (six) Branch hours as needed for Pain (scale 1-3) or Temp > 38.5 C. acetaminoph 2021-0 Yes [id number] 650mg Take 2 Univers en 325 mg 6-20 tablets by ity of tablet 00:00: mouth [place] 00 every 6 Medical (six) Branch hours as needed for Pain (scale 1-3) or Temp > 38.5 C. acetaminoph 2021-0 Yes [id number] 650mg Take 2 Univers en 325 mg 6-20 tablets by ity of tablet 00:00: mouth [place] 00 every 6 Medical (six) Branch hours as needed for Pain (scale 1-3) or Temp > 38.5 C. acetaminoph 2021-0 Yes [id number] 650mg Take 2 Univers en 325 mg 6-20 tablets by ity of tablet 00:00: mouth [place] 00 every 6 Medical (six) Branch hours as needed for Pain (scale 1-3) or Temp > 38.5 C. acetaminoph 2021-0 Yes [id number] 650mg Take 2 Univers en 325 mg 6-20 tablets by ity of tablet 00:00: mouth [place] 00 every 6 Medical (six) Branch hours as needed for Pain (scale 1-3) or Temp > 38.5 C. acetaminoph 2021-0 Yes [id number] 650mg Take 2 Univers en 325 mg 6-20 tablets by ity of tablet 00:00: mouth [place] 00 every 6 Medical (six) Branch hours as needed for Pain (scale 1-3) or Temp > 38.5 C. acetaminoph 2021-0 Yes [id number] 650mg Take 2 Univers en 325 mg 6-20 tablets by ity of tablet 00:00: mouth [place] 00 every 6 Medical (six) Branch hours as needed for Pain (scale 1-3) or Temp > 38.5 C. acetaminoph 2021-0 Yes [id number] 650mg Take 2 Univers en 325 mg 6-20 tablets by ity of tablet 00:00: mouth [place] 00 every 6 Medical (six) Branch hours as needed for Pain (scale 1-3) or Temp > 38.5 C. acetaminoph 2021-0 Yes [id number] 650mg Take 2 Univers en 325 mg 6-20 tablets by ity of tablet 00:00: mouth [place] 00 every 6 Medical (six) Branch hours as needed for Pain (scale 1-3) or Temp > 38.5 C. acetaminoph 2021-0 Yes [id number] 650mg Take 2 Univers en 325 mg 6-20 tablets by ity of tablet 00:00: mouth [place] 00 every 6 Medical (six) Branch hours as needed for Pain (scale 1-3) or Temp > 38.5 C. acetaminoph 2021-0 Yes [id number] 650mg Take 2 Univers en 325 mg 6-20 tablets by ity of tablet 00:00: mouth [place] 00 every 6 Medical (six) Branch hours as needed for Pain (scale 1-3) or Temp > 38.5 C. acetaminoph 2021-0 Yes [id number] 650mg Take 2 [facility] en 325 mg 6-20 tablets by ity of tablet 00:00: mouth [place] 00 every 6 Medical (six) Branch hours as needed for Pain (scale 1-3) or Temp > 38.5 C. acetaminoph 2021-0 Yes [id number] 650mg Take 2 Univers en 325 mg 6-20 tablets by ity of tablet 00:00: mouth [place] 00 every 6 Medical (six) Branch hours as needed for Pain (scale 1-3) or Temp > 38.5 C. acetaminoph 2021-0 Yes [id number] 650mg Take 2 Univers en 325 mg 6-20 tablets by ity of tablet 00:00: mouth [place] 00 every 6 Medical (six) Branch hours as needed for Pain (scale 1-3) or Temp > 38.5 C. acetaminoph 2021-0 Yes [id number] 650mg Take 2 Univers en 325 mg 6-20 tablets by ity of tablet 00:00: mouth [place] 00 every 6 Medical (six) Branch hours as needed for Pain (scale 1-3) or Temp > 38.5 C. acetaminoph 2021-0 Yes [id number] 650mg Take 2 Univers en 325 mg 6-20 tablets by ity of tablet 00:00: mouth [place] 00 every 6 Medical (six) Branch hours as needed for Pain (scale 1-3) or Temp > 38.5 C. acetaminoph 2021-0 Yes [id number] 650mg Take 2 Univers en 325 mg 6-20 tablets by ity of tablet 00:00: mouth [place] 00 every 6 Medical (six) Branch hours as needed for Pain (scale 1-3) or Temp > 38.5 C. acetaminoph 2021-0 Yes [id number] 650mg Take 2 Univers en 325 mg 6-20 tablets by ity of tablet 00:00: mouth [place] 00 every 6 Medical (six) Branch hours as needed for Pain (scale 1-3) or Temp > 38.5 C. acetaminoph 2021-0 Yes [id number] 650mg Take 2 [facility] en 325 mg 6-20 tablets by ity of tablet 00:00: mouth [place] 00 every 6 Medical (six) Branch hours as needed for Pain (scale 1-3) or Temp > 38.5 C. acetaminoph 2021-0 Yes [id number] 650mg Take 2 Univers en 325 mg 6-20 tablets by ity of tablet 00:00: mouth [place] 00 every 6 Medical (six) Branch hours as needed for Pain (scale 1-3) or Temp > 38.5 C. acetaminoph 2020-0 Yes [id number] 650mg Take 2 Univers en 325 mg 6-20 tablets by ity of tablet 00:00: [facility] 00 every 6 Medical (six) Branch hours as needed for Pain (scale 1-3) or Temp > 38.5 C. acetaminoph 2020-0 Yes [id number] 650mg Take 2 Univers en 325 mg 6-20 tablets by ity of tablet 00:00: mouth [place] 00 every 6 Medical (six) Branch hours as needed for Pain (scale 1-3) or Temp > 38.5 C. acetaminoph 2020-0 Yes [id number] 650mg Take 2 Univers en 325 mg 6-20 tablets by ity of tablet 00:00: [facility] 00 every 6 Medical (six) Branch hours as needed for Pain (scale 1-3) or Temp > 38.5 C. acetaminoph 2020-0 Yes [id number] 650mg Take 2 Univers en 325 mg 6-20 tablets by ity of tablet 00:00: [facility] 00 every 6 Medical (six) Branch hours as needed for Pain (scale 1-3) or Temp > 38.5 C. acetaminoph 2020-0 Yes [id number] 650mg Take 2 Univers en 325 mg 6-20 tablets by ity of tablet 00:00: [facility] 00 every 6 Medical (six) Branch hours as needed for Pain (scale 1-3) or Temp > 38.5 C. acetaminoph 2020-0 Yes [id number] 650mg Take 2 Univers en 325 mg 6-20 tablets by ity of tablet 00:00: [facility] 00 every 6 Medical (six) Branch hours as needed for Pain (scale 1-3) or Temp > 38.5 C. acetaminoph 2020-0 Yes [id number] 650mg Take 2 Univers en 325 mg 6-20 tablets by ity of tablet 00:00: [facility] 00 every 6 Medical (six) Branch hours as needed for Pain (scale 1-3) or Temp > 38.5 C. Immunizations Ordered Filled Immunization Date Status Comments [facility] e Immunization Name Name Influenza Virus 2022-02-22 Completed Universit y of Vaccine Quad ID 00:00:00 [place] [facility] ical 18-64 YRS Branch Influenza Virus 2022-02-22 Completed Universit y of Vaccine Quad ID 00:00:00 [facility] ical 18-64 YRS Branch Influenza Virus 2022-02-22 Completed Universit y of Vaccine Quad ID 00:00:00 [facility] ical 18-64 YRS Branch Influenza Virus 2021-08-20 Completed Universit y of Vaccine Quad IM, 00:00:00 [place] [facility] dical Preserv and ABX Branch Free 6 MO-64 YRS Influenza Virus 2021-08-20 Completed Universit y of Vaccine Quad IM, 00:00:00 [place] [facility]ical Preserv and ABX Branch Free 6 MO-64 YRS Influenza Virus 2021-08-20 Completed Universit y of Vaccine Quad IM, 00:00:00 [place] Me dical Preserv and ABX Branch Free 6 MO-64 YRS Influenza Virus 2021-08-20 Completed Universit y of Vaccine Quad IM, 00:00:00 [place] Me dical Preserv and ABX Branch Free 6 MO-64 YRS Influenza Virus 2021-08-20 Completed Universit y of Vaccine Quad IM, 00:00:00 [place] Me dical Preserv and ABX Branch Free 6 MO-64 YRS Influenza Virus 2021-08-20 Completed Universit y of Vaccine Quad IM, 00:00:00 [place] Me dical Preserv and ABX Branch Free 6 MO-64 YRS Influenza Virus 2021-08-20 Completed Universit y of Vaccine Quad IM, 00:00:00 [place] Me dical Preserv and ABX Branch Free 6 MO-64 YRS Influenza Virus 2021-08-20 Completed Universit y of Vaccine Quad IM, 00:00:00 [place] Me dical Preserv and ABX Branch Free 6 MO-64 YRS Influenza Virus 2021-08-20 Completed Universit y of Vaccine Quad IM, 00:00:00 [place] Me dical Preserv and ABX Branch Free 6 MO-64 YRS Influenza Virus 2021-08-20 Completed Universit y of Vaccine Quad IM, 00:00:00 [place] Me dical Preserv and ABX Branch Free 6 MO-64 YRS Influenza Virus 2021-08-20 Completed Universit y of Vaccine Quad IM, 00:00:00 [place] Me dical Preserv and ABX Branch Free 6 MO-64 YRS Influenza Virus 2021-08-20 Completed Universit y of Vaccine Quad IM, 00:00:00 [place] Me dical Preserv and ABX Branch Free 6 MO-64 YRS Influenza Virus 2021-08-20 Completed Universit y of Vaccine Quad IM, 00:00:00 [place] Me dical Preserv and ABX Branch Free 6 MO-64 YRS Influenza Virus 2021-08-20 Completed Universit y of Vaccine Quad IM, 00:00:00 [place] Me dical Preserv and ABX Branch Free 6 MO-64 YRS Influenza Virus 2021-08-20 Completed Universit y of Vaccine Quad IM, 00:00:00 [place] Me dical Preserv and ABX Branch Free 6 MO-64 YRS Influenza Virus 2021-08-20 Completed Universit y of Vaccine Quad IM, 00:00:00 [place] Me dical Preserv and ABX Branch Free 6 MO-64 YRS Influenza Virus 2021-08-20 Completed Universit y of Vaccine Quad IM, 00:00:00 [place] Me dical Preserv and ABX Branch Free 6 MO-64 YRS Influenza Virus 2021-08-20 Completed Universit y of Vaccine Quad IM, 00:00:00 [place] Me dical Preserv and ABX Branch Free 6 MO-64 YRS Influenza Virus 2021-08-20 Completed Universit y of Vaccine Quad IM, 00:00:00 [place] Me dical Preserv and ABX Branch Free 6 MO-64 YRS Influenza Virus 2021-08-20 Completed Universit y of Vaccine Quad IM, 00:00:00 [place] Me dical Preserv and ABX Branch Free 6 MO-64 YRS Influenza Virus 2021-08-20 Completed Universit y of Vaccine Quad IM, 00:00:00 [place] Me dical Preserv and ABX Branch Free 6 MO-64 YRS Influenza Virus 2021-08-20 Completed Universit y of Vaccine Quad IM, 00:00:00 [place] Me dical Preserv and ABX Branch Free 6 MO-64 YRS Influenza Virus 2021-08-20 Completed Universit y of Vaccine Quad IM, 00:00:00 [place] Me dical Preserv and ABX Branch Free 6 MO-64 YRS Influenza Virus 2021-08-20 Completed Universit y of Vaccine Quad IM, 00:00:00 [place] Me dical Preserv and ABX Branch Free 6 MO-64 YRS Influenza Virus 2021-08-20 Completed Universit y of Vaccine Quad IM, 00:00:00 [place] Me dical Preserv and ABX Branch Free 6 MO-64 YRS Influenza Virus 2021-08-20 Completed Universit y of Vaccine Quad IM, 00:00:00 [place] Me dical Preserv and ABX Branch Free 6 MO-64 YRS Influenza Virus 2021-08-20 Completed Universit y of Vaccine Quad IM, 00:00:00 [place] Me dical Preserv and ABX Branch Free 6 MO-64 YRS Influenza Virus 2021-08-20 Completed Universit y of Vaccine Quad IM, 00:00:00 [place] [facility]ical Preserv and ABX Branch Free 6 MO-64 YRS SARS-COV-2 COVID-19 2020-03-25 Completed Unive rsity of MODERNA 0.25ML 00:00:00 [place] [facility] BOOSTER VACCINE Branch SARS-COV-2 COVID-19 2020-03-25 Completed Unive rsity of MODERNA 0.25ML 00:00:00 [place] [facility] BOOSTER VACCINE Branch SARS-COV-2 COVID-19 2020-03-25 Completed Unive rsity of MODERNA 0.25ML 00:00:00 [place] [facility] BOOSTER VACCINE Branch SARS-COV-2 COVID-19 2020-03-04 Completed Unive rsity of MODERNA 0.25ML 00:00:00 [place] [facility] BOOSTER VACCINE Branch SARS-COV-2 COVID-19 2020-03-04 Completed Unive rsity of MODERNA 0.25ML 00:00:00 [place] [facility]i [facility] BOOSTER VACCINE Branch SARS-COV-2 COVID-19 2020-03-04 Completed Unive rsity of MODERNA 0.25ML 00:00:00 [place] [facility] BOOSTER VACCINE Branch Vital Signs Vital Name Observation Time Observation Value Comments Source Systolic blood 2022-03-21 21:18:00 104 mm[Hg] Univer sity of pressure [place] [facility] Diastolic blood 2022-03-21 21:18:00 54 mm[Hg] Unive rsity of pressure [place] [facility] Heart rate 2022-03-21 21:18:00 71 [facility] Body temperature 2022-03-21 21:18:00 36.72 [facility] Respiratory rate 2022-03-21 21:18:00 14 /min [facility] O[facility] saturation in 2022-03-21 21:18:00 99 /min [facility] Arterial blood by [place] [facility] Pulse oximetry Branch Body weight 2022-03-21 03:13:00 57 kg [facility] of [place] [facility] BMI 2022-03-21 03:13:00 22.26 kg/m2 [facility] of [place] [facility] Systolic blood 2022-03-17 20:03:00 125 mm[Hg] Univer sity of pressure [place] [facility] Diastolic blood 2022-03-17 20:03:00 81 mm[Hg] [facility]ive [facility] Heart rate 2022-03-17 20:03:00 85 /min [facility] Body temperature 2022-03-17 20:03:00 37.06 Jenni [facility] Respiratory rate 2022-03-17 20:03:00 18 /min [facility] Oxygen saturation in 2022-03-17 20:03:00 99 /min University of Arterial blood by [facility] Pulse oximetry Branch Systolic blood 2022-02-09 16:17:00 127 mm[Hg] Univer [facility] Diastolic blood 2022-02-09 16:17:00 71 mm[Hg] Unive rs[facility] Heart rate 2022-02-09 16:17:00 84 /min [facility] [place] [facility] Respiratory rate 2022-02-09 16:17:00 18 /min [facility] [place] [facility] Body weight 2022-02-09 16:17:00 52.617 kg [facility] [place] [facility] BMI 2022-02-09 16:17:00 21.92 kg/m2 [facility] [place] [facility] Oxygen saturation in 2022-02-09 16:17:00 99 /min University of Arterial blood by [place] [facility] Pulse oximetry Branch Systolic blood 2022-01-31 21:12:00 110 mm[Hg] Univer [facility] Diastolic blood 2022-01-31 21:12:00 59 mm[Hg] [facility] Heart rate 2022-01-31 21:12:00 79 /min [facility] Body temperature 2022-01-31 21:12:00 36.33 Jenni [facility] [place] [facility] Respiratory rate 2022-01-31 21:12:00 16 /min [facility] [place] [facility] Oxygen saturation in 2022-01-31 21:12:00 97 /min University of Arterial blood by [place] [facility] michael Pulse oximetry Branch Body height 2022-01-31 02:57:00 154.9 cm [facility] [place] [facility] Body weight 2022-01-31 02:57:00 54.432 kg [facility] [place] [facility] BMI 2022-01-31 02:57:00 22.67 kg/m2 [facility] [place] [facility] Systolic blood 2022-01-28 18:12:00 120 mm[Hg] Univer [facility] Diastolic blood 2022-01-28 18:12:00 77 mm[Hg] [facility] Heart rate 2022-01-28 18:12:00 82 /min [facility] [place] [facility] Respiratory rate 2022-01-28 18:12:00 17 /min [facility] [place] [facility] Oxygen saturation in 2022-01-28 18:12:00 99 /min University of Arterial blood by [facility] Pulse oximetry Branch Body temperature 2022-01-28 18:07:00 36.61 Jenni [facility] [place] [facility] Body height 2022-01-28 18:07:00 154.9 cm [facility] [place] [facility] Body weight 2022-01-28 18:07:00 54.568 kg [facility] [place] [facility] BMI 2022-01-28 18:07:00 22.73 kg/m2 [facility] [place] [facility] Systolic blood 2022-01-27 19:39:00 120 mm[Hg] [facility] Diastolic blood 2022-01-27 19:39:00 75 mm[Hg] [facility] Heart rate 2022-01-27 19:39:00 78 /min [facility] [place] [facility] Body temperature 2022-01-27 19:39:00 36.78 Jenni [facility] [place] [facility] Respiratory rate 2022-01-27 19:39:00 18 /min [facility] [place] [facility] Body height 2022-01-27 19:39:00 154.9 cm [facility] [place] [facility] Body weight 2022-01-27 19:39:00 54.795 kg [facility] [place] [facility] BMI 2022-01-27 19:39:00 22.82 kg/m2 Universi ty [facility] Oxygen saturation in 2022-01-27 19:39:00 98 /min University of Arterial blood by [facility] Pulse oximetry Branch Systolic blood 2021-12-24 20:21:00 107 mm[Hg] Univer sity of pressure [facility] Diastolic blood 2021-12-24 20:21:00 66 mm[Hg] Unive rsity of pressure [facility] Heart rate 2021-12-24 20:21:00 73 /min Universi [facility] Body temperature 2021-12-24 20:21:00 36.83 Jenni [facility] Body height 2021-12-24 20:21:00 154.9 cm Universi [facility] Body weight 2021-12-24 20:21:00 54.522 kg Universi [facility] BMI 2021-12-24 20:21:00 22.71 kg/m2 Universi [facility] Oxygen saturation in 2021-12-24 20:21:00 100 /min University of Arterial blood by [facility] Pulse oximetry Branch Procedures Procedure Date / Time Performing Source Performed Clinician [facility] BASIC METABOLIC PANEL (NA, K, 2022-03-21 Chantel Muñoz [facility] CL, CO2, GLUCOSE, BUN, 10:40:00 [facility] CREATININE, CA) CBC WITH DIFF 2022-03-21 [facility] 10:40:00 [facility] ELECTROENCEPHALOGRAM 2022-03-21 [facility] EKG-12 LEAD 2022-03-20 Jennifer Dennison [facility] exas 23:14:14 Medical Branch PHOSPHORUS 2022-03-20 [facility] 23:07:00 Medical Branch MAGNESIUM 2022-03-20 [facility] 23:07:00 [facility] TEST, SERUM 2022-03-20 Jennifer Dennison [facility] 23:07:00 [facility] COMP. METABOLIC PANEL ([id number]) 2022-03-20 Jennifer [facility]ison [facility] 23:07:00 Medical Branch CBC WITH DIFF 2022-03-20 Jennifer Dennison [facility] exas 23:07:00 [facility] KEPPRA (LEVETIRACETAM) 2022-03-20 Jennifer Dennison [facility] 23:07:00 [facility] HOSPITAL ADMISSION 2022-03-20 Doctor Unassigned, [facility] 06:01:00 [facility] ELECTROENCEPHALOGRAM 2022-01-31 Monet [facility] 00:00:00 [facility] POCT TEST 2022-01-30 Monse Chavez [facility] 23:11:00 [facility] URINALYSIS 2022-01-30 Monse Chavez [facility] 23:08:00 [facility] URINE DRUG (IMMUNOASSAY) - 2022-01-30 [facility] COMPREHENSIVE DRUG SCREEN W/O 23:08:00 Wy dical [facility] REFLEX COVID-19 (ID NOW RAPID 2022-01-30 [facility] TESTING) 22:13:00 [facility] LAB ONLY COVID INTERPRETATION 2022-01-30 [facility] 22:13:00 [facility] PHOSPHORUS 2022-01-30 [facility] 21:49:00 [facility] MAGNESIUM 2022-01-30 [facility] 21:49:00 [facility] TEST, SERUM 2022-01-30 [facility] 21:49:00 [facility] COMP. METABOLIC PANEL ([id number]) 2022-01-30 Monse Chavez [facility] 21:49:00 [facility] ETHANOL 2022-01-30 [facility] [place] 21:49:00 Medical Branch CBC WITH DIFF 2022-01-30 Monse Chavez [facility] 21:49:00 [facility] KEPPRA (LEVETIRACETAM) 2022-01-30 [facility] 21:49:00 [facility] LACTIC ACID WHOLE BLOOD 2022-01-30 Monse Chavez [facility] 21:48:00 [facility] POCT GLUCOSE (AUTOMATED) 2022-01-30 [facility] 21:46:00 [facility] CONSENT/REFUSAL FOR DIAGNOSIS 2022-01-30 Doctor Unassigned, [facility] AND TREATMENT 21:37:27 [facility] HOSPITAL ADMISSION 2022-01-30 Doctor Unassigned, [facility] 05:01:00 [facility] Encounters Start End Encounter Admission Attending Care Care Encounter Source Date/Time Date/Time Type Type Clinicians Facility Department ID 2021-03-08 Emergency [facility] [id number] Univers [facility] 2022-05-20 2022-05-20 Outpatient R FIDEL [facility] [id number] Univers 15:40:00 15:40:00 AXEL [facility] 2022-04-05 2022-04-05 Outpatient JEANNINE MUÑIZ [facility] [id number] Univers 17:00:00 17:00:00 [facility] 2022-03-30 2022-03-30 [facility] 1.2.840.114 [id number] Univers 00:00:00 00:00:00 Axel SANCHEZ 350.1.13.10 [facility] 4.2.7.2.686 [facility] [id number] Wy dical NAL 044 [facility] 2022-03-20 2022-03-21 Outpatient X [facility] [place] [id number] Univers 16:50:00 17:54:00 [facility] 2022-03-20 2022-03-21 Emergency Jennifer Dennison 1.2.840 .114 [id number] Univers 16:50:00 17:54:00 Sarthak Stern 350.1.13.10 [facility] 4.2.7.2.686 [place] [phone] [facility] 098 [facility] 2022-03-17 2022-03-17 Outpatient JEANNINE MUÑIZ [facility] [id number] Univers 14:00:00 14:47:08 ity [facility] 2022-03-17 2022-03-17 Office Jeannine Shell [facility] 1.2.840.114 [id number] Univers 14:00:00 14:47:08 Visit S PRIMARY 350.1.13.10 it y [place] [id number] [facility] 092 [facility] 2022-03-14 2022-03-14 Outpatient R FIDEL [facility] [id number] Univers 14:00:00 15:23:47 AXEL bahena [facility] 2022-03-14 2022-03-14 [facility], Adc Lab [facility] 1.2.840.114 [id number] Univers 14:00:00 14:15:00 Visit Axel Sandoval 350.1.13.10 ity of [facility] 4.[place] [id number] Wy dical NAL 353 [facility] 2022-03-10 2022-03-10 Telephone Goodwin [facility] 1.2.840.114 [id number] Univers 00:00:00 00:00:00 Monet PRIMARY 350.1.13.10 i ty [place] [id number] [facility] 092 [facility] 2022-03-08 2022-03-08 Telephone Fidel [facility] 1.2.840.114 [id number] Univers 00:00:00 00:00:00 Axel SANCHEZ 350.1.13.10 i ty of [place] [id number] Wy dical NAL 044 [facility] 2022-03-03 2022-03-03 Telephone SHAUNA Dubon 1.2.571.245 [id number] Univers 00:00:00 00:00:00 Mike RAI 350.1.13.10 i ty of [facility] 4.2.7.2.686 [place] as [id number] [facility] 082 [facility] 2022-02-22 2022-02-22 Telephone Gui [facility] 1.2.840.114 [id number] Univers 00:00:00 00:00:00 [facility] 350.1.13.10 it y [place] [id number] [address] OFFICE BUILDING 2022-02-15 2022-02-15 [facility] 2, Adc Lab [facility] 1.2.840.114 [id number] Univers 08:45:00 08:45:19 Visit Axel Sandoval 350.1.13.10 ity of [facility] 4.2.7[place]2.[place] [id number] Wy dical NAL 353 Branch [facility] 2022-02-15 2022-02-15 [facility] [id number] Univers 08:45:00 08:45:00 AXEL ena [facility] 2022-02-14 2022-02-14 Telephone [facility] 1.2.840.114 [id number] Univers 00:00:00 00:00:00 [facility] 350.1.13.10 it y [place] [id number] [address] OFFICE BUILDING 2022-02-11 2022-02-12 Emergency X BILLY HEARD [facility] ERT [id number] Univers 17:11:00 00:31:00 BILLY HEARD [facility] 2022-02-09 2022-02-09 Outpatient [facility] [id number] Univers 11:20:00 12:43:12 AXEL josef [facility] 2022-02-09 2022-02-09 [facility] 1.2.840.114 [id number] Univers 11:20:00 12:43:12 Visit Axel SANCHEZ 350.1.13.10 i ty of [place] 4.2.7.2.686 [place] [id number] Wy dical NAL 044 Branch [facility] 2022-02-03 2022-02-03 Telephone [facility] 1.2.989.359 [id number] Univers 00:00:00 00:00:00 Cecilia PRIMARY 350.1.13.10 i ty of [facility] CARE 4.2.[place].2.[place] [id number] Wy dical 2 [facility] 2022-01-30 2022-01-31 Outpatient X SY TIMMONS [facility] [place] [id number] Univers 16:38:00 17:47:[address] [facility] 2022-01-30 2022-01-31 Emergency CarlMayo 1.2.840. 114 [id number] Univers 16:38:00 17:47:00 Sy Timmons 350.1.13.10 ity of [facility] 4.2.7.2.686 [place] as [id number] [address] 2022-01-28 2022-01-28 Outpatient R SHINE [facility] [id number] Univers 13:00:00 13:46:25 ROSY bahena o f [facility] 2022-01-28 2022-01-28 Office [facility] 1.2.840.114 [id number] Univers 13:00:00 13:46:25 Visit Rosy SANCHEZ 350.1.13.10 ity of [place].2.7.[place] [facility] [id number] Wy dicil NAL 059 [facility] 2022-01-27 2022-01-27 Office [facility] 1.2.840.114 [id number] Univers 14:40:00 15:20:00 Visit S [facility] 350.1.13.10 i ty of CL[place]ICS [place].2.[place] [id number] [address] 2022-01-27 2022-01-27 Outpatient R JEANNINE SHELL [facility] [id number] Univers 14:40:00 14:40:00 ity [facility] 2022-01-03 2022-01-03 Telephone Jey [facility] 1.2.772.513 [id number] Univers 00:00:00 00:00:00 Felicitas L SPECIALTY 350.1.13.10 ity of [place].2.[place] AT [id number] Wy dical [address] 2021-12-24 2021-12-24 Outpatient R JEY [facility] [id number] Univers 15:30:00 16:02:43 RUIQING ity [facility] 2021-12-24 2021-12-24 [facility] 1.2.840.114 [id number] Univers 15:30:00 16:02:43 Visit Ruiqing L SPECIALTY 350.1.13.10 ity of [place] [id number] Wy fabian [address] 2021-12-24 2021-12-24 Telephone [facility] 1.2.582.978 [id number] Univers 00:00:00 00:00:00 Ruiqing L SPECIALTY 350.1.13.10 it[place] [id number] Wy fabian [address] 2021-12-20 2021-12-20 Emergency [facility] [id number] Univers 11:12:00 13:24:00 MONSE ity [facility] 2021-12-20 2021-12-20 Emergency [facility] 1.2.840.114 [id number] Univers 11:12:00 13:24:00 Monse SANCHEZ 350.1.13.10 ity [facility] 4.2.7.2.[address] [place] [id number] 2021-12-15 2021-12-15 Emergency X [facility] ERT [id number] Univers 13:47:00 15:39:00 JUSTIN josef [facility] 2021-12-15 2021-12-15 Emergency [facility] 1.2.976.546 [id number] Univers 13:47:00 15:39:00 Justin SANCHEZ 350.1.13.10 i ty of [place] 4.2.7.2.686 [facility] [id number] [address] 2021-12-06 2021-12-06 Outpatient Agustin GILLIS [facility] [id number] Univers 15:00:00 17:10:27 BÁRBARA [facility]y [facility] 2021-12-06 2021-12-06 [facility] Pcp-Lab [facility] 1.2.840.114 [id number] Univers 15:00:00 15:15:00 Visit Bárbara Gillis PRIMARY 350.1.13.10 ity of [place] [id number] Wy dical [address] [facility] 2021-12-06 2021-12-06 Outpatient Agustin GILLIS [facility] [id number] Univers 10:30:00 12:03:40 BÁRBARA bahena [facility] 2021-12-06 2021-12-06 Office Perla Knight [facility] 1.2.840 .114 [id number] Univers 10:30:00 12:03:40 Visit Bárbara Gillis PRIMARY 350.1.13.10 ity of [place]2.[place] [id number] Wy dical [address] [facility] 2021-12-06 2021-12-06 Orders Doctor SHAUNA 1.2.840.114 [id number] Univers 00:00:00 00:00:00 Only Unassigned, FREDI 350.1.13.10 ity of [place] [facility] 4.2.7.2.686 [place] [id number] [address] 2021-10-13 2021-10-13 Office Gui [facility] 1.2.840.114 [id number] Univers 11:15:00 11:27:34 Visit [facility] 350.1.13.10 it y of [place] 4[place]2.[place].2.[place] [id number] [address] OFFICE BUILDING 2021-10-13 2021-10-13 Outpatient Agustin PAUL [facility] [id number] Univers 11:15:00 11:15:00 TRISTEN bernyena [facility] 2021-10-13 2021-10-13 Outpatient Agustin MAC [facility] [id number] Univers 09:00:00 09:28:03 KAVITHA bahena [facility] 2021-10-13 2021-10-13 Office [facility] 1.2.840.114 [id number] Univers 09:00:00 09:28:03 Visit Kavitha Elam [facility]S 350.1.13.10 it [facility] [place].2.[place] [id number] [facility] [place] [address] [facility] 2021-10-13 2021-10-13 Outpatient [facility] [id number] Univers 09:00:00 09:28:03 KAVITHA arrietaena [facility] 2021-10-13 2021-10-13 Orders Doctor SHAUNA 1.2.840.114 [id number] Univers 00:00:00 00:00:00 Only Unassigned, FREDI 350.1.13.10 ity of [place] [facility] 4.2.7.2.686 [place] as [id number] [facility] 00[address] [facility] 2021-09-15 2021-09-15 Outpatient [facility] [id number] Univers 09:23:28 23:59:00 THALIA ity [facility] 2021-09-15 2021-09-15 Outpatient Agustin [facility] [id number] Univers 09:23:28 23:59:00 THALIA ity [facility] 2021-09-15 2021-09-15 [facility] 1.2.840.114 [id number] Univers 09:23:28 23:59:00 Encounter Thalia SANCHEZ 350.1.13.10 ity [facility] 4.2.7.[address] [place] [address] [id number] [facility] 804 [facility] 2021-09-15 2021-09-15 Outpatient Agustin NICHOLE [facility] [id number] Univers 09:22:55 09:22:55 THALIA ity [facility] 2021-09-15 2021-09-15 [facility] 1.2.840.114 [id number] Univers 09:22:55 09:22:55 Encounter Thalia SANCHEZ 350.1.13.10 ity [facility] 4.2.7.2.686 [facility] [id number] [facility] 804 [facility] 2021-09-10 2021-09-10 Outpatient R JEY [facility] [id number] Univers 11:30:00 12:02:08 [facility]ING [facility] 2021-09-10 2021-09-10 Office [facility] 1.2.840.114 [id number] Univers 11:30:00 12:02:08 Visit Felicitas SPECIALTY 350.1.13.10 ity [place] [id number] Wy fabina VICTOREna 092 [facility] 2021-09-10 2021-09-10 Outpatient R JEY [facility] [id number] Univers 11:30:00 11:30:00 [facility]ING [facility] 2021-09-10 2021-09-10 Outpatient Agustin [facility] [id number] Univers 08:30:00 09:08:59 THALIA [facility] 2021-09-10 2021-09-10 Office Dionisio [facility] 1.2.840.114 [id number] Univers 08:30:00 09:08:59 Visit Thalia [facility] 350.1.13.10 ity of CL[place]ICS 4[place]2.[place] [id number] [facility] 196 [facility] 2021-08-31 2021-08-31 Office Luis Eduardo Myers [facility] 1.2.840.1 [id number] Univers 16:00:00 16:53:33 Visit Lilo Hicks PRIMARY 350.1.13.10 ity of [place] [id number] Wy fabian [address] [facility] 2021-08-31 2021-08-31 Outpatient Agustin HICKS [facility] [id number] Univers 16:00:00 16:53:33 LILO bahena [facility] 2021-08-31 2021-08-31 Outpatient Agustin HICKS [facility] [id number] Univers 16:00:00 16:00:00 LILO bahena [facility] 2021-08-23 2021-08-23 Transition MILTON Wagner 1.2.840.114 [id number] Univers 00:00:00 00:00:00 of Care Carleen KEYESY 350.1.13.10 i ty of [place] [id number] [facility] [address] 2021-08-16 2021-08-20 Hospital Jeannine Shell 1.2.840.114 [id number] Univers 08:26:00 11:30:00 Encounter RobbRox louiskareen RAI 350.1.13.[address] [facility] 4.2.7.2.686 [place] [id number] [facility] 098 Branch 2021-08-16 2021-08-16 Outpatient R JEANNINE SHELL [facility] [id number] Univers 08:30:00 08:30:[address] [facility] 2021-08-16 2021-08-16 Outpatient R JEANNINE SHELL [facility] [id number] Univers 08:30:00 08:30:[address] [facility] 2021-08-16 2021-08-16 Outpatient R JEANNINE SHELL [facility] [id number] Univers 08:30:00 08:30:[address] [facility] 2021-08-16 2021-08-16 Outpatient R JEANNINE SHELL [facility] [place] [id number] Univers 08:30:00 08:30:00 ity [facility] 2021-08-13 2021-08-13 Laboratory Only, Adc Test [facility] 1.2.840. 114 [id number] Univers 08:00:00 08:15:00 Only Jeannine Shell 350.1.13.10 ity [facility] 4.2.7.2.[place] [id number] [facility] [address] 2021-08-13 2021-08-13 Outpatient R JEANNINE SHELL [facility] [id number] Univers 08:00:00 08:00:00 ity [facility] 2021-08-11 2021-08-11 Telephone Gui [facility] 1.2.840.114 [id number] Univers 00:00:00 00:00:00 [facility] 350.1.13.10 it y of [place] [id number] [facility] [address] OFFICE BUILDING 2021-08-10 2021-08-10 Telephone [facility] 1.2.634.169 [id number] Univers 00:00:00 00:00:00 Cecilia LOPEZ 350.1.13.10 i ty of [facility] 4.2.7.2.[place] [id number] [address] 2021-08-10 2021-08-10 [facility] 1.2.840.114 [id number] Univers 00:00:00 00:00:00 Monet PRIMARY 350.1.13.10 i ty of [place] 4[place]2.7.2.[place] [id number] [address] 2021-08-06 2021-08-06 Patient Brooks [facility] 1.2.840.114 [id number] Univers 00:00:00 00:00:00 Secure [facility] 350.1.13.10 ity of Neeraj Mathew [place] 4.2.7.2.686 [facility] [id number] [place] [address] Branch OFFICE BUILDING 2021-08-03 2021-08-03 Hospital [facility] 1.2.840.114 [id number] Univers 14:07:56 23:59:00 Encounter Cecilia SANCHEZ 350.1.13.10 ity of [place] [id number] [facility] [address] 2021-08-03 2021-08-03 Outpatient R [facility] [id number] Univers 14:07:56 23:59:00 CECILIA bahena o rosetta [facility] 2021-07-16 2021-07-16 Telephone Brooks [place] 1.2.632.029 [id number] Univers 00:00:00 00:00:00 FREDI Sims 350.1.13.10 i ty of Neeraj Carmona [facility] 4.2.7.2.686 [facility] [id number] [facility] 00[address] 2021-07-15 2021-07-15 Outpatient R VASQUEZ, [facility] [id number] Univers 13:00:00 23:59:00 CECILIA arrietaena cifuentes [facility] 2021-07-15 2021-07-15 [facility] [id number] Univers 13:00:00 13:00:00 CECILIA cifuentes [facility] 2021-07-15 2021-07-15 [facility] 1.2.235.990 [id number] Univers 00:00:00 00:00:00 [facility] 350.1.13.10 i ty of [place] [id number] [place] [address] Branch OFFICE BUILDING 2021-07-06 2021-07-06 Outpatient R VASQUEZ, [facility] [id number] Univers 13:00:00 14:35:18 CECILIA cifuentes [facility] 2021-07-06 2021-07-06 Office de Lui Monet [facility] [id number] Univers 13:00:00 14:35:18 Visit Cecilia Vasquez PRIMARY 350.1.13.1 0 it[id number] [id number] Wy dical [address] 2021-07-06 2021-07-06 Outpatient R CHRISTINA [facility] [id number] Univers 13:00:00 14:35:18 CECILIA cifuentes [facility] 2021-04-19 2021-04-19 Outpatient R [facility] EHA [id number] Univers 12:11:00 23:59:00 RAMIN, ity of MILLY [facility] 2021-04-19 2021-04-19 [facility] 1.2.840.114 [id number] Univers 12:11:00 23:59:00 Encounter ramin, PRIMARY 350.1.13.10 [place] [phone] [address] 2021-03-26 2021-03-26 [facility] 1.2.840.114 [id number] Univers 00:00:00 00:00:00 Tristen HEALTH 350.1.13.10 [place] [id number] [address] OFFICE BUILDING 2021-03-24 2021-03-24 [facility]phone [facility] 1.2.840.114 [id number] Univers 00:00:00 00:00:00 Tristen HEALTH 350.1.13.10 [place] [id number] [place] [id number] [facility] OFFICE [facility]ING 2021-03-16 2021-03-16 [facility]phone [facility] 1.2.840.114 [id number] Univers 00:00:00 00:00:00 Tristen SPECIALTY 350.1.13.10 [place] [id number] [address] 2021-03-11 2021-03-11 Telephone [facility] 1.2.840.114 [id number] Univers 00:00:00 00:00:00 Thalia C HEALTH 350.1.13.10 i [place] [id number] [address] OFFICE BUILDING 2021-01-14 2021-01-14 [facility]phone [facility] 1.2.840.114 [id number] Univers 00:00:00 00:00:00 Thalia C Health 350.1.13.10 [place] [phone] [address] Office Building 2020-11-12 2020-11-12 Outpatient Agustin PAUL [facility] [id number] Univers 10:00:00 10:00:00 TRISTEN bahena [facility] 2020-10-30 2020-10-30 Outpatient Agustin PAUL [facility] [id number] Univers 13:00:00 13:24:19 TRISTEN bahena [facility] 2020-10-30 2020-10-30 Outpatient R [facility] [id number] Univers 13:00:00 13:00:00 [facility] 2020-10-22 2020-10-22 Emergency X [facility] ERT [id number] Univers 12:07:00 12:07:00 [facility] 2020-10-12 2020-10-12 Emergency X [facility] ERT [id number] Univers 19:23:00 19:23:00 [facility] 2020-09-07 2020-09-09 Outpatient X GUI [facility] SNS [id number] Univers 10:28:00 16:20:00 TRISTEN bahena [facility] 2020-09-07 2020-09-07 Emergency X [facility] ERT [id number] Univers 10:22:00 10:22:00 [facility] 2020-08-31 2020-08-31 [facility] 00:51:00 11:46:00 ALBERT 2019-07-19 2019-07-19 [facility] 1.2.840.114 [id number] 21:36:16 23:53:00 Monse Sanchez 350.1.13.10 [place] 4.2.7.2.686 [place] [id number] 2019-07-19 2019-07-19 [facility] [id number] Univers 21:22:00 21:22:00 MONSE ena [facility] Results Test Description Test Time Test Comments Results Result Comments Source CBC WITH DIFF 2022-03-21 11:33:07 Test Item Value Reference Range Interpretation Comme nts WBC (test code = 6690-2) See_Comment L [A utomated message] The system which ge nerated this result transmit angel reference range: 4.30 - 1 1.10 10*3/?L. The reference r vimal was not used to interpr et this result as normal/abnor mal. RBC (test code = 789-8) See_Comment L [Au tomated message] The system which ge nerated this result transmit angel reference range: 3.93 - 5 .25 10*6/?L. The reference r vimal was not used to interpr et this result as normal/abnor mal. HGB (test code = 718-7) 11.9 g/dL 11.6-15.0 HCT (test code = 4544-3) 32.3 % 35.7-45.2 L MCV (test code = 787-2) 85.7 fL 80.6-95.5 MCH (test code = 785-6) 31.6 pg 25.9-32.8 MCHC (test code = 786-4) 36.8 g/dL 31.6-35.1 H RDW-SD (test code = 07589-5) 38.1 fL 39.0-49.9 L RDW-CV (test code = 788-0) 12.4 % 12.0-15.5 PLT (test code = 777-3) See_Comment [Au tomated message] The system which [employer] nerated this result transmit angel reference range: 166 - 35 8 10*3/?L. The reference range was not used to interpret th is result as normal/abnormal . MPV (test code = 55313-6) 10.6 fL 9.5-12.9 NRBC/100 WBC (test code = See_Comment [ Automated message] The 9482972734) system which [employer] nerated this result transmit angel reference range: 0.0 - 10 .0 /100 WBCs. The reference r vimal was not used to interpr et this result as normal/abnor mal. NRBC x10^3 (test code = See_Comment [Au tomated message] The 1900917244) system which [employer] nerated this result transmit angel reference range: 10*3/?L. The reference range was not u sed to interpret this result as normal/abnormal . GRAN MAT (NEUT) % (test code 42.2 % = 770-8) IMM GRAN % (test code = 0.30 % 2660553275) LYMPH % (test code = 736-9) 40.3 % MONO % (test code = 5905-5) 14.6 % EOS % (test code = 713-8) 2.0 % BASO % (test code = 706-2) 0.6 % GRAN MAT x10^3(ANC) (test 1.48 10*3/uL 1.88-7.09 L code = 8325587141) IMM GRAN x10^3 (test code = 0.00-0.06 2968064153) LYMPH x10^3 (test code = 1.41 10*3/uL 1.32-3.29 731-0) MONO x10^3 (test code = 0.51 10*3/uL 0.33-0.92 742-7) EOS x10^3 (test code = 0.07 10*3/uL 0.03-0.39 711-2) BASO x10^3 (test code = 0.01-0.07 704-7) REACT LYMPHS (test code = Rare 8742103317) Lab Interpretation (test Abnormal code = 86778-7) [facility] METABOLIC PANEL (NA, K, CL, CO2, GLUCOSE, BUN, CREATININE, CA)2022-03-21 11:20:02 Test Item Value Reference Range Interpretation Comments NA (test code = 139 mmol/L 135-145 3388907287) K (test code = 3.8 mmol/L 3.5-5.0 4243801500) CL (test code = 113 mmol/L 98-108 H 3479812025) CO2 TOTAL (test code = 18 mmol/L 23-31 L 5132215351) AGAP (test code = 2-16 1552001752) BUN (test code = 8 mg/dL 7-23 7974595113) GLUCOSE (test code = 92 mg/dL 70-110 4309296181) CREATININE (test code = 0.56 mg/dL 0.50-1.04 5988873704) CALCIUM (test code = 8.1 mg/dL 8.6-10.6 L 2915361370) eGFR (test code = mL/min/1.73m2 1690287442) LIA (test code = LIA) Association of Glomerular Filtration Rate (GFR) and Staging of Kidney Disease* + --+ --+ ------+| GFR (mL/min/1.73 m2) ?| With Kidney Damage ?| ?Without Kidney Damage+ --------+ --------+ +| ?>90 ?| ?Stage one ?| ? Normal ?+ ---+ ---+ -------+| ?60-89 ?| ?Stage two ?| ? Decreased GFR ? + --+ --+ ------+| ?30-59 ?| ?Stage three ?| ? Stage three ? + --+ --+ ------+| ?15-29 ?| ?Stage four ? | ? Stage four ?+ ---+ ---+ -------+| ?<15 (or dialysis) ? ?| ?Stage five ? | ? Stage five ?+ ---+ ---+ -------+ *Each stage assumes the associated GFR level has been in effect for at least three months. ?Stages 1 to 5, with or without kidney disease, indicate chronic kidney disease. Notes: Determination of stages one and two (with eGFR >59mL/min/1.73 m2) requires estimation of kidney damage for at least three months as defined by structural or functional abnormalities of the kidney, manifested by either:Pathological abnormalities or Markers of kidney damage (including abnormalities in the composition of the blood or urine or abnormalities in imaging tests). Lab Interpretation Abnormal (test code = 81837-5) [facility] [id number] 04:23:39 Test Item Value Reference Range Interpretation Comments MAGNESIUM (test code = 8766963620) 2.2 mg/dL 1.7-2.4 Lab Interpretation (test code = Normal 39278-9) [facility]osphorus [id number] 04:23:39 Test Item Value Reference Range Interpretation Comments PHOSPHORUS (test code = 1953439785) 3.4 mg/dL 2.5-5.0 Lab Interpretation (test code = Normal 35539-7) [facility] AntonioCB WITH [id number] 23:51:10 Test Item Value Reference Range Interpretation Comments WBC (test code = See_Comment L [Automated 0290-2) message] The sy stem which generated this result transmitted reference range : 4.30 - 11.10 10*3/?L. The reference range was not used to interpret this result as normal/abnormal . RBC (test code = See_Comment [Automated 029-8) message] The sy stem which generated this result transmitted reference range : 3.93 - 5.25 10*6/?L. The reference range was not used to interpret this result as normal/abnormal . HGB (test code = 13.4 g/dL 11.6-15.0 718-7) HCT (test code = 36.2 % 35.7-45.2 4544-3) MCV (test code = 86.6 fL 80.6-95.5 787-2) MCH (test code = 32.1 pg 25.9-32.8 785-6) MCHC (test code = 37.0 g/dL 31.6-35.1 H 786-4) RDW-SD (test code = 38.6 fL 39.0-49.9 L 48434-8) RDW-CV (test code = 12.5 % 12.0-15.5 788-0) PLT (test code = See_Comment [Automated 777-3) message] The sy stem which generated this result transmitted reference range : 166 - 358 10*3/ ?L. The reference r vimal was not used to interpret this result as normal/abnormal . MPV (test code = 10.4 fL 9.5-12.9 62480-1) NRBC/100 WBC (test See_Comment [Automat ed code = 8228201984) message] The system which generated this result transmitted reference range : 0.0 - 10.0 /100 WBCs. The refer ence range was not u sed to interpret th is result as normal/abnormal . NRBC x10^3 (test code See_Comment [Auto mated = 2719186390) message] The s ystem which generated this result transmitted reference range : 10*3/?L. The reference range was not used to interpret this result as normal/abnormal . GRAN MAT (NEUT) % 49.0 % (test code = 770-8) IMM GRAN % (test code 0.30 % = 5347022756) LYMPH % (test code = 35.0 % 736-9) MONO % (test code = 13.3 % 5905-5) EOS % (test code = 1.6 % 713-8) BASO % (test code = 0.8 % 706-2) GRAN MAT x10^3(ANC) 1.85 10*3/uL 1.88-7.09 L (test code = 0888357634) IMM GRAN x10^3 (test 0.00-0.06 code = 9341564990) LYMPH x10^3 (test code 1.32 10*3/uL 1.32-3.29 = 731-0) MONO x10^3 (test code 0.50 10*3/uL 0.33-0.92 = 742-7) EOS x10^3 (test code = 0.06 10*3/uL 0.03-0.39 711-2) BASO x10^3 (test code 0.03 10*3/uL 0.01-0.07 = 704-7) Lab Interpretation Abnormal (test code = 68057-2) [facility] Antonio[facility]PPRA (LEVETIRACETAM)2022-03-20 23:49:30 Test Item Value Reference Range Interpretation Comments KEPPRA (test code = 34 ug/mL 12-46 4744361189) LIA (test code = LIA) Therapeutic range: 12-46 ?g/mL ? ?Toxic: Not well established.Test developed and characteristics determined by [facility] Laboratory Services. Lab Interpretation Normal (test code = 71351-5) [facility] Antonio[facility]REG[facility] TEST, [id number] 23:45:17 Test Item Value Reference Range Interpretation Comments PREG SERUM (test code Negative = 4889385629) LIA (test code = LIA) Less than 10 IU/L. ?If low titer or ectopic is suspected, resubmit specimen in 48-72 hours. [facility] AntonioCOM. METABOLIC PANEL (20168)2022-03-20 23:45:07 Test Item Value Reference Range Interpretation Comments NA (test code = 140 mmol/L 135-145 8569381335) K (test code = 3.6 mmol/L 3.5-5.0 3413200927) CL (test code = 108 mmol/L 98-108 4406724809) CO2 TOTAL (test code 24 mmol/L 23-31 = 8318042748) AGAP (test code = 2-16 0001077564) BUN (test code = 10 mg/dL 7-23 3961758555) GLUCOSE (test code = 82 mg/dL 70-110 0922753721) CREATININE (test code 0.62 mg/dL 0.50-1.04 = 4882887386) TOTAL BILI (test code 1.1 mg/dL 0.1-1.1 = 2930498259) CALCIUM (test code = 8.8 mg/dL 8.6-10.6 3742838302) T PROTEIN (test code 6.9 g/dL 6.3-8.2 = 7547806142) ALBUMIN (test code = 4.4 g/dL 3.5-5.0 6437405411) ALK PHOS (test code = 78 U/L 34-122 5118662474) ALTv (test code = 19 U/L 5-35 1742-6) AST(SGOT) (test code 21 U/L 13-40 = 4258408824) eGFR (test code = mL/min/1.73m2 9071299157) LIA (test code = LIA) Association of Glomerular Filtration Rate (GFR) and Staging of Kidney Disease* + + +- +| GFR (mL/min/1.73 m2) ?| With Kidney Damage ?| ?Without Kidney Damage+ ------+ ----+ ------+| ?>90 ?| ?Stage one ?| ? Normal ?+ -+ + -+| ?60-89 ?| ?Stage two ?| ? Decreased GFR ? + + +- +| ?30-59 ?| ?Stage three ?| ? Stage three ? + + +- +| ?15-29 ?| ?Stage four ? | ? Stage four ?+ -+ + -+| ?<15 (or dialysis) ? ?| ?Stage five ? | ? Stage five ?+ -+ + -+ *Each stage assumes the associated GFR level has been in effect for at least three months. ?Stages 1 to 5, with or without kidney disease, indicate chronic kidney disease. Notes: Determination of stages one and two (with eGFR >59mL/min/1.73 m2) requires estimation of kidney damage for at least three months as defined by structural or functional abnormalities of the kidney, manifested by either:Pathological abnormalities or Markers of kidney damage (including abnormalities in the composition of the blood or urine or abnormalities in imaging tests). [facility] [id number] 23:11:00 Test Item Value Reference Range Interpretation Comments POCT PREG (test code = 1605) negative On board controls acceptable with present C Line (test code = 3574) POCT PREG LOT # (test code = 3575) [id number] POCT PREG TEST DATE (test code = 3576) Lab Interpretation (test code = Normal 94528-7) [facility] TEST, [id number] 22:55:05 Test Item Value Reference Range Interpretation Comments PREG SERUM (test code Negative = 8982654150) LIA (test code = LIA) Less than 10 IU/L. ?If low titer or ectopic is suspected, resubmit specimen in 48-72 hours. [facility] AntonioPO[facility] GLUCOSE (AUTOMATED)2022-01-30 21:48:29 Test Item Value Reference Range Interpretation Comments POCT GLU (test code = 6854371913) 96 mg/dL 70-110 Lab Interpretation (test code = Normal 39835-9) [facility]"
[2022-03-31] MEDS ORDERED: LORazepam 2 MG/ML VIAL ONE (20:01)
[2022-03-31] MEDS ORDERED: NA CHLORIDE 0.9% 100 ML IV ONE (20:01)
[2022-03-31 20:24] LABS: Absolute Lymphocytes (CBC) 2.4 K/uL (0.7-4.9); Lymphocytes % 31.3 % (15.3-44.8); MCV 89.1 fL (80-100); MPV 8.4 fL (7.6-11.3); RBC Red Blood Cell Count 4.37 M/uL (3.86-4.86)
[2022-03-31 20:45] LABS: Albumin 4.2 g/dL (3.4-5.0); Bilirubin Direct 0.2 mg/dL (0-0.2); Bilirubin Total 0.6 mg/dL (0.2-1.0); Magnesium 2.2 mg/dL (1.8-2.4); Potassium 3.5 mmol/L (3.5-5.1); Protein, Total 7.4 g/dL (6.4-8.2)
--- NOTE | 2022-03-31 21:00 | RAD REPORT ---
EXAM DESCRIPTION: CT - Head Brain Wo Cont - 03/31/2022 8:38 pm CLINICAL HISTORY: Seizure COMPARISON: January 2022 TECHNIQUE: Computed axial tomography of the head was obtained. IV contrast was not requested. All CT scans are performed using dose optimization technique as appropriate and may include automated exposure control or mA/KV adjustment according to patient size. FINDINGS: Left suboccipital craniotomy. Cerebellar tonsils extend through the foramen magnum compatible with Arnold-Chiari malformation. 8.2 centimeter fluid collection left posterior fossais unchanged presumably an arachnoid cyst. This s hould be compared to pre surgery exam. An intracranial bleed is not seen . The ventricles are normal in caliber. Fluid within the sinuses/ mastoids is not seen. IMPRESSION: No acute intracranial abnormality is seen. If patient's symptoms persist MRI of the brain would be recommended.
--- NOTE | 2022-03-31 22:47 | P.HP ---
Certification for Inpatient Patient admitted to: Observation With expected LOS: <2 Midnights Patient will require the following post-hospital care: None Practitioner: I am a practitioner with admitting privileges, knowledge of patient current condition, hospital course, and medical plan of care. Services: Services provided to patient in accordance with Admission requirements found in Title 42 Section 412.3 of the Code of Federal Regulations Patient History Date of Service: 04/01/22 Reason for admission: Epilepsy History of Present Illness: Patient is a 21-year-old female with past medical history of epilepsy, asthma, and anxiety who presented to the ED after experiencing multiple seizures today. 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 Following the operation, she has had recurrent seizures. She has been taking Keppra and Topamax daily, however her seizures have not been under control. Her neurologist recently started her on Vimpat in addition to Keppra and has been tapering down her Topamax. Today was the last day of her Topamax taper. Mother reports that she had 3 seizures today, the longest one lasting 15-20 minutes. EMS gave 2 doses of 0.5 versed which resolved status epilepticus. Upon arrival to ED, she had another seizure lasting 2 minutes and was given 2 mg ativan and stopped her seizure. Labs are unremarkable and head CT is negative for acute findings. Vital signs stable. She has not had another seizure. She is post ictal/sleepy but arousable and is answering questions appropriately. She received 1000 mg keppra. ED provider wishes admit patient for observation. Allergies No Known Allergies Allergy (Verified 05/14/18 15:39) Home Medications: Fluoxetine HCl [Prozac] 40 mg PO DAILY 03/09/20 Codeine/APAP [Tylenol W/Codeine #3 tab] 1 tab PO Q4HP PRN #20 tab 03/11/20 Sulfamethoxazole/Trimethoprim [Bactrim Ds Tablet] 1 each PO BID #10 tablet 03/11/20 - Past Medical/Surgical History Diabetic: No -: Epilepsy -: Asthma -: Anxiety -: Arachnoid Cyst -: Lumpectomy -: Left suboccipital craniotomy Psychosocial/ Personal History: Patient lives at home with her parents. - Family History Family History: Reviewed- Non-Contributory - Social History Smoking Status: Never smoker Alcohol use: No CD- Drugs: No Caffeine use: Yes Place of Residence: Home Review of Systems Neurological: As per HPI Physical Examination - Physical Exam General: In no apparent distress, Other (Sleepy but arousable) HEENT: Atraumatic, PERRLA, EOMI, Sclerae nonicteric Neck: Supple, 2+ carotid pulse no bruit Respiratory: Clear to auscultation bilaterally, Normal air movement Cardiovascular: Regular rate/rhythm, Normal S1 S2 Gastrointestinal: Normal bowel sounds, No tenderness Musculoskeletal: No tenderness Integumentary: No rashes Neurological: Normal speech, Sensation intact - Studies Laboratory Data (last 24 hrs) 03/31/22 20:09: Sodium 141, Potassium 3.5, BUN 10, Creatinine 0.87, Glucose 96, Magnesium 2.2, Total Bilirubin 0.6, AST 14 L, ALT 30, Alkaline Phosphatase 100 03/31/22 20:09: WBC 7.80, Hgb 14.0, Hct 39.0, Plt Count 279 Assessment and Plan - Problems (Diagnosis) (1) Epilepsy with status epilepticus, not intractable Current Visit: Yes Status: Acute Qualifiers: Epilepsy type: due to external causes Qualified Code(s): G40.501 - Epileptic seizures related to external causes, not intractable, with status epilepticus - Plan Breakthrough seizures likely secondary to weaning/transition of medications. Monitor patient overnight with seizure precautions in place. Ativan ordered as needed for seizure activity. Received a loading dose of Keppra in the ED. Resume home seizure medications in the morning. UDS pending. Monitor and replete electrolytes per protocol. Lovenox for DVT prophylaxis. Full code. Neurologist is Hemant Shell MD at [facility]. Discharge Plan: Home Plan to discharge in: 24 Hours - Advance Directives Does patient have a Living Will: No Does patient have a Durable POA for Healthcare: No - Code Status/Comfort Care Code Status Assessed: Yes (Full) Critical Care: No Time Spent Managing Pts Care (In Minutes): 50
--- NOTE | 2022-03-31 22:48 | ER ---
Nurse's Notes [facility] – [place], [place] Name: Nona Lee Age: 21 yrs Sex: Female : 2000 Arrival Date: 03/31/2022 Time: 19:57 Bed 16 Private MD: Diagnosis: Epileptic seizures related to external causes, not intractable, without status epilepticus Presentation: 03/31 20:08 Chief complaint: EMS states: "arrived home and was told that patient was having a em6 seizure at 1850 for 20 mins gave her 0.4 mg of versed IN when arrived and she started seizing again at 1942 until 1947 gave her another 0.4 mg of versed. She has history of seizures. BGL 93. vs 128/69 spo 94 RA pulse 91. she was able to nod for yes or no". Coronavirus screen: Client denies travel out of the [place] in the last 14 days. Ebola Screen: Patient negative for fever greater than or equal to 101.5 degrees Fahrenheit, and additional compatible Ebola Virus Disease symptoms. Initial Sepsis Screen: Does the patient meet any 2 criteria? No. Patient's initial sepsis screen is negative. Does the patient have a suspected source of infection? No. Patient's initial sepsis screen is negative. Risk Assessment: Do you want to hurt yourself or someone else? Unable to obtain. Onset of symptoms was March 31, 2022 at 18:50. 20:08 Method Of Arrival: EMS: [facility] em6 20:08 Acuity: LUBNA 2 as6 Triage Assessment: 19:50 General: Appears uncomfortable. 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 - Family history:: not pertinent. - Social history:: Smoking status: unknown. - Hospitalizations: : No recent hospitalization is reported. Screenin:08 Abuse screen: Denies threats or abuse. Nutritional screening: No deficits noted. em6 Tuberculosis screening: No symptoms or risk factors identified. Fall Risk No fall in past 12 months (0 pts). Secondary diagnosis (15 points) seizures, IV access (20 points). Ambulatory Aid- None/Bed Rest/Nurse Assist (0 pts). Gait- Impaired (20 pts.). Mental Status- Overestimates/Forgets Limitations (15 pts.). Total Richards Fall Scale indicates High Risk Score (45 or more points). Fall prevention measures have been instituted. Side Rails Up X 2 Placed Close to Nursing Station Frequent Obs/Assessments Occuring Family Present and informed to notify staff if the need to leave the bedside As available patient and family educated on Fall Prevention Program and Strategies. Assessment: 19:50 General: Behavior is inappropriate for age. Pain: Unable to use pain scale. FLACC scale em6 score is 0 out of 10. post seizure. Neuro: Level of Consciousness is post ictal, Oriented to none Pupils are PERRLA, Seizure activity Patient is post-ictal at this time. Cardiovascular: Heart tones present Capillary refill < 3 seconds Patient's skin is warm and dry. Rhythm is sinus rhythm. Respiratory: Airway is patent Respiratory effort is even, unlabored, Respiratory pattern is regular, symmetrical, Breath sounds are clear bilaterally. GI: Abdomen is non-distended, Bowel sounds present X 4 quads. Abd is soft and non tender X 4 quads. : No signs and/or symptoms were reported regarding the genitourinary system. EENT: No signs and/or symptoms were reported regarding the EENT system. Derm: No signs and/or symptoms reported regarding the dermatologic system. Musculoskeletal: No signs and/or symptoms reported regarding the musculoskeletal system. 19:54 Reassessment: provider at bedside. new orders given see mar. Neuro: Seizure activity em6 noted at this time. Seizure lasted approximately 2 minutes. Respiratory: Airway is patent Respiratory effort is even, unlabored, Respiratory pattern is regular, symmetrical. 20:30 Reassessment: No changes from previously documented assessment. Neuro: Level of em6 Consciousness is post ictal, Pupils are PERRLA. Respiratory: Airway is patent Respiratory effort is even, unlabored, Respiratory pattern is regular, symmetrical, Breath sounds are clear bilaterally. 20:50 Neuro: Level of Consciousness is awake, alert, obeys commands, Oriented to person. em6 20:50 Reassessment: Patient and/or family updated on plan of care and expected duration. Pain em6 level reassessed. Respiratory: Airway is patent Respiratory effort is even, unlabored, Respiratory pattern is regular, symmetrical. 21:30 Reassessment: No changes from previously documented assessment. Neuro: Level of em6 Consciousness is awake, alert, obeys commands, Oriented to person. Respiratory: Airway is patent Respiratory effort is even, unlabored, Respiratory pattern is regular, symmetrical. 22:30 Reassessment: Patient and/or family updated on plan of care and expected duration. Pain em6 level reassessed. Neuro: Level of Consciousness is awake, alert, obeys commands, Oriented to person, place, time, situation. Respiratory: Airway is patent Respiratory effort is even, unlabored, Respiratory pattern is regular, symmetrical. 22:58 Reassessment: gave report to pancho Campbell. he will continue plan of care. em6 23:18 Reassessment: Oxygen 98% on RA , NC stopped. ke1 Vital Signs: 20:08 BP 120 / 76; Pulse 67; Resp 22; Temp 98.4; Pulse Ox 94% on R/A; Weight 52.16 kg; Height em6 5 ft. 1 in. (154.94 cm); 20:15 BP 124 / 77; Pulse 62; Resp 20; Pulse Ox 100% on 2 lpm NC; em6 21:15 BP 102 / 57; Pulse 54; Resp 19; Pulse Ox 100% on 2 lpm NC; em6 22:30 BP 101 / 64; Pulse 60; Resp 22; Pulse Ox 100% on 2 lpm NC; em6 23:17 BP 106 / 49; Pulse 64; Resp 20; Pulse Ox 97% on R/A; Pain 0/10; ke1 20:08 Body Mass Index 21.73 (52.16 kg, 154.94 cm) em6 Tippo Coma Score: 19:50 Eye Response: spontaneous(4). Verbal Response: confused(4). Motor Response: withdraws em6 from pain(4). Total: 12. 20:50 Eye Response: spontaneous(4). Verbal Response: confused(4). Motor Response: obeys em6 commands(6). Total: 14. 22:30 Eye Response: spontaneous(4). Verbal Response: oriented(5). Motor Response: obeys em6 commands(6). Total: 15. ED Course: 19:50 Placed in gown. Bed in low position. Call light in reach. Side rails up X2. Adult w/ em6 patient. Seizure precautions initiated. classroom monitor on. Pulse ox on. NIBP on. Warm blanket given. 19:57 Patient arrived in ED. wm 20:00 Arm band placed on. em6 20:02 Von Weber MD is Attending Physician. rn 20:04 Inserted saline lock: 20 gauge in left antecubital area, using aseptic technique. Blood as6 collected. 20:08 Daniella Burgos, RN is Primary Nurse. em6 20:16 Triage completed. em6 20:40 CT Head Brain wo Cont In Process Unspecified. EDMS 22:22 Garry Sanchez MD is Hospitalizing Provider. rn 22:55 Transitioned onto hospital bed and relocated to room sixteen. Seizure precautions mw2 maintained. 23:00 Assisted to bathroom. mw2 04/01 08:26 Urine --Ancillary (enter results) Sent. ko1 Administered Medications: 03/31 20:02 Drug: Ativan (LORazepam) 2 mg Route: IVP; Site: left antecubital; as6 20:30 Follow up: Response: No adverse reaction em6 20:03 Drug: Keppra (levETIRAcetam) 1000 mg Route: IV; Rate: calculated rate; Site: left as6 antecubital; 20:18 Follow up: Response: No adverse reaction; IV Status: Completed infusion; IV Intake: em6 100ml 20:18 Follow up: Response: No adverse reaction; IV Status: Completed infusion; IV Intake: em6 100ml Intake: 20:18 IV: 100ml; Total: 100ml. em6 20:18 IV: 100ml; Total: 200ml. em6 Outcome: 22:22 Decision to Hospitalize by Provider. rn 04/01 14:40 Patient left the ED. kr3 Signatures: Dispatcher [employer] EDMS Von Weber MD MD rn [place], MyKena mw2 Winnie Arthur Ashby, RN RN as6 Pancho Gomez RN RN ke1 Rima Oscar RN RN kr3 Daniella Burgos, NORBERTO RN em6 Raissa Chapman RN RN ko1 Corrections: (The following items were deleted from the chart) 03/31 20:17 20:16 Home Meds: levitiracetam; em6 em6 20:48 20:00 General: Behavior is inappropriate for age, em6 em6 20:48 20:00 Pain: Unable to use pain scale. FLACC scale score is 0 out of 10. post seizure em6em6 20:48 20:00 Neuro: Level of Consciousness is post ictal, Oriented to none Pupils are PERRLA, em6 em6 20:48 20:00 Cardiovascular: Heart tones present Capillary refill < 3 seconds Patient's skin em6 is warm and dry. Rhythm is sinus rhythm em6 20:48 20:00 Respiratory: Airway is patent Respiratory effort is even, unlabored, Respiratory em6 pattern is regular, symmetrical, Breath sounds are clear bilaterally. em6 20:48 20:00 GI: Abdomen is non-distended, Bowel sounds present X 4 quads. Abd is soft and non em6 tender X 4 quads. em6 20:48 20:00 : No signs and/or symptoms were reported regarding the genitourinary system. em6em6 20:48 20:00 EENT: No signs and/or symptoms were reported regarding the EENT system. em6 em6 20:48 20:00 Derm: No signs and/or symptoms reported regarding the dermatologic system. em6 em6 20:48 20:00 Musculoskeletal: No signs and/or symptoms reported regarding the musculoskeletal em6 system. em6 20:50 19:50 Neuro: Level of Consciousness is post ictal, Oriented to none Pupils are PERRLA, em6 em6 21:19 20:08 Acuity: LUBNA 1 em6 as6 21:26 20:50 Neuro: Level of Consciousness is awake, alert, obeys commands, Oriented to em6 person, em6 21:26 20:50 Respiratory: Airway is patent Respiratory effort is even, unlabored, Respiratory em6 pattern is regular, symmetrical, em6 21:26 20:50 Reassessment: Patient and/or family updated on plan of care and expected em6 duration. Pain level reassessed. em6 22:50 21:00 Response: No adverse reaction; IV Status: Completed infusion; IV Intake: 100ml em6em6 22:59 22:58 Reassessment: gave report to em6 em6
--- NOTE | 2022-03-31 22:48 | EDPHYS ---
Physician Documentation [facility] Name: Nona Lee Age: 21 yrs Sex: Female : 2000 Arrival Date: 03/31/2022 Time: 19:57 Bed 16 Private MD: ED Physician Von Weber HPI: 03/31 20:03 This 21 yrs old Female presents to ER via Unassigned with complaints of rn Seizure. 20:03 The patient presents with a history of multiple seizures, a total of 3. Character of rn seizure(s): Motor activity: generalized, Incontinence: none, Apnea: the patient did not experience apnea, Circulation: the patient did not experience evidence of pulse disturbance. Seizure onset: today. Associated injury: The patient did not suffer any apparent associated injury. Current symptoms: confusion, decreased level of consciousness. The patient has experienced similar episodes in the past. The patient has been recently seen by a physician:. EMS and mother report atleast 3 seizures that began today in last 1.5 hours, longest one lasted approx 15-20 min, given 2 doses of 0.5 mg versed by EMS with resolution of seizures. Mother reports taking keppra and "another seizure medication" that is new and just finished taper/wean off of topamax. No fever. Has been acting ok. Has hx of brain tumors and had surgery a year ago at [facility].. 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 - Family history:: not pertinent. - Social history:: Smoking status: unknown. - Hospitalizations: : No recent hospitalization is reported. ROS: 20:03 Unable to obtain ROS due to altered mental status. rn Exam: 20:03 Constitutional: This is a well developed, well nourished patient who post-ictal rn Head/Face: Normocephalic, atraumatic. Eyes: Pupils equal round and reactive to light ENT: No oral bleeding Cardiovascular: Regular rate and rhythm. No pulse deficits. Respiratory: No increased work of breathing, no retractions or nasal flaring. Abdomen/GI: Soft, non-tender, non-distended Skin: Warm, dry MS/ Extremity: Pulses equal, no cyanosis. Neurovascular intact. Full, normal range of motion. Equal circumference. Neuro: Somnolent/post-ictal, nods head to some questions 21:20 ECG was reviewed by the Attending Physician. rn Vital Signs: 20:08 BP 120 / 76; Pulse 67; Resp 22; Temp 98.4; Pulse Ox 94% on R/A; Weight 52.16 kg; Height em6 5 ft. 1 in. (154.94 cm); 20:15 BP 124 / 77; Pulse 62; Resp 20; Pulse Ox 100% on 2 lpm NC; em6 21:15 BP 102 / 57; Pulse 54; Resp 19; Pulse Ox 100% on 2 lpm NC; em6 22:30 BP 101 / 64; Pulse 60; Resp 22; Pulse Ox 100% on 2 lpm NC; em6 23:17 BP 106 / 49; Pulse 64; Resp 20; Pulse Ox 97% on R/A; Pain 0/10; ke1 20:08 Body Mass Index 21.73 (52.16 kg, 154.94 cm) em6 Sushma Coma Score: 19:50 Eye Response: spontaneous(4). Verbal Response: confused(4). Motor Response: withdraws em6 from pain(4). Total: 12. 20:50 Eye Response: spontaneous(4). Verbal Response: confused(4). Motor Response: obeys em6 commands(6). Total: 14. 22:30 Eye Response: spontaneous(4). Verbal Response: oriented(5). Motor Response: obeys em6 commands(6). Total: 15. MDM: 20:02 Patient medically screened. rn 20:03 ED course: Pt began to have another seizure shortly after arrival, generalized, given 2 rn mg ativan and seizure stopped after approx 2 min. . 22:19 Differential diagnosis: seizure. Data reviewed: vital signs, nurses notes, lab test rn result(s), EKG, radiologic studies, CT scan, and as a result, I will admit patient. Counseling: I had a detailed discussion with the patient and/or guardian regarding: the historical points, exam findings, and any diagnostic results supporting the discharge/admit diagnosis, lab results, radiology results, the need for further work-up and treatment in the hospital. Response to treatment: the patient's symptoms have markedly improved after treatment, and as a result, I will admit patient. Admission orders: after a detailed discussion of the patient's condition and case, the admit orders are written by me. ED course: Pt without further seizures, no acute findings on CT head or bloodwork. Had atleast 3 seizures today with one lasting about 15-20 min. Most likely 2/2 wean/transition to new medication. Offered transfer to [facility] just for continuity of care, mother would rather stay here, told her ok given no need for surgery, just had medications changed, and stable. . 03/31 20:03 Order name: CBC with Diff; Complete Time: 20:39 03/31 20:03 Order name: Basic Metabolic Panel; Complete Time: 20:46 03/31 20:03 Order name: Urine Microscopic Only; Complete Time: 23:32 03/31 20:03 Order name: Magnesium; Complete Time: 20:46 03/31 20:03 Order name: LFT's; Complete Time: 20:46 03/31 20:22 Order name: Glucose, Ancillary Testing; Complete Time: 20:39 EDDC 03/31 20:03 Order name: CT Head Brain wo Cont; Complete Time: 21:04 03/31 20:03 Order name: IV Start; Complete Time: 20:03 03/31 22:27 Order name: SARS RAPID; Complete Time: 23:32 tw5 03/31 23:05 Order name: Urine Dipstick-Ancillary; Complete Time: 23:32 EDMS 03/31 23:06 Order name: Urine --Ancillary (enter results) wm 03/31 23:19 Order name: Urine --Ancillary; Complete Time: 23:32 EDDC 03/31 20:03 Order name: Urine Dipstick-Ancillary (obtain specimen); Complete Time: 23:16 rn 03/31 20:03 Order name: Urine Test (obtain specimen); Complete Time: 23:16 rn 03/31 20:03 Order name: Glucose Level; Complete Time: 20:18 03/31 20:03 Order name: Cardiac monitoring; Complete Time: 20: rn 03/31 20:03 Order name: O2 Sat Monitoring; Complete Time: 20: rn 03/31 20: Order name: O2 Per Protocol; Complete Time: 20: rn EC:20 Rate is 70 beats/min. Rhythm is regular. QRS Oxford is Normal. SD interval is normal. QRS rn interval is normal. QT interval is normal. No Q waves. T waves are Normal. No ST changes noted. Clinical impression: Normal ECG. Interpreted by me. Reviewed by me. Administered Medications: 20:02 Drug: Ativan (LORazepam) 2 mg Route: IVP; Site: left antecubital; as6 20:30 Follow up: Response: No adverse reaction em6 20:03 Drug: Keppra (levETIRAcetam) 1000 mg Route: IV; Rate: calculated rate; Site: left as6 antecubital; 20:18 Follow up: Response: No adverse reaction; IV Status: Completed infusion; IV Intake: em6 100ml 20:18 Follow up: Response: No adverse reaction; IV Status: Completed infusion; IV Intake: em6 100ml Disposition Summary: 03/31/22 22:22 Hospitalization Ordered Hospitalization Status: Observation rn Provider: Garry Sanchez rn Condition: Stable rn Problem: an ongoing problem rn Symptoms: have improved rn Bed/Room Type: Standard rn Location: [facility] ER HOLD(03/31/22 22:40) Room Assignment: ERHOLD-(03/31/22 22:40) Diagnosis - Epileptic seizures related to external causes, not intractable, without status rn epilepticus Forms: - Medication Reconciliation Form rn - SBAR form rn Signatures: Dispatcher [employer] EDVon Gil MD MD rn Marsh, Wendy Guzman Elkins RN RN as6 Daniella Burgos RN RN em6 Shilpa Munson PA-C PA-C sb4 Corrections: (The following items were deleted from the chart) 20:17 20:16 Home Meds: levitiracetam; em6 em6 22:40 22:22 Telemetry/MedSurg (observation) rn 22:40 22:22 rn
[2022-03-31 23:05] LABS: Urine Blood Negative (Negative); Urine Glucose Negative (Negative); Urine Protein Negative (Negative); Urine Specific Gravity >=1.030 (1.005-1.030); Urine pH 5.5 (5.0-7.0)
[2022-03-31 23:13] LABS: Urine Bacteria <20 /HPF (<20); Urine Mucus Slight /HPF (None Seen); Urine RBC <5 /HPF (None Seen)
[2022-03-31 23:18] LABS: SARS-CoV-2 Antigen Rapid Res Negative (Negative)
[2022-03-31 23:19] LABS: Urine Specific Gravity/Preg >1.030 (1.005-1.030)
[2022-04-01] MEDS ORDERED: ONDANSETRON 4 MG/2 ML VIAL IV PRN (02:16)
[2022-04-01] MEDS ORDERED: LORazepam 2 MG/ML VIAL IV PRN (02:16)
[2022-04-01] MEDS ORDERED: ACETAMINOPHEN 325 MG TABLET PO PRN (02:16)
[2022-04-01 04:11] VITALS: TEMP 97.8
[2022-04-01] MEDS ORDERED: NA CHLORIDE 0.9% 1,000 ML IV SCH (08:00)
[2022-04-01] MEDS ORDERED: levETIRAcetam 500 MG TAB ONE ×2 (08:32→13:34)
[2022-04-01] MEDS ORDERED: NA CHLORIDE 0.9% 1,000 ML ONE (08:32)
[2022-04-01] MEDS ORDERED: levETIRAcetam 500 MG TAB PO SCH ×3 (09:00→13:00)
[2022-04-01] MEDS ORDERED: LACOSAMIDE 50 MG TABLET PO SCH ×2 (13:00→21:00)
[2022-04-01] MEDS ORDERED: LACOSAMIDE 50 MG TABLET ONE (13:34)
[2022-04-01 14:42] VITALS: BP 110/62
--- NOTE | 2022-04-01 15:18 | CON ---
Chief Complaint: Seizures. History Of Present Illness: Ms. Lee is a 21-year-old, right-handed, patient with a hist ory of arachnoid cyst surgically treated in October 2020, who has its localization-related complex parti al seizures following surgery. She has comorbidities of asthma, anxiety. She was having medications adjusted by her current neurologist with the goal of decreasing and stopping Topamax as in the futur e she may become and this medication is likely due to increase the risk of neural tube defec ts and therefore, it was planned to be stopped, but then she would continue in the meantime. Keppra 750 mg 2 twice daily and Vimpat started a week ago at 50 mg twice daily. She reports after stopping the Topamax, she apparently had a total of about 3 seizures. One while at home, and her mother an ssed the episodes of the 3 seizures. One lasted a few minutes and 1 lasted a total of about 15-20 mi nutes. The emergency medical services in the field gave Versed 0.5 mg twice and that did stop an stoney oing seizure. However, she had a 4th seizure while in hospital, that one lasted about 2 minutes and she received Ativan 2 mg, which stopped the seizures. In addition, she was given 1000 mg of Keppra a nd then kept for observation. Since that dosage of Keppra was given, she has not had an additional s eizure. Past Medical History: As above. Past Surgical History: Lumpectomy, left suboccipital craniotomy. Allergies: NO KNOWN DRUG ALLERGIES. Home Medications: Prozac 40 mg daily, Tylenol with Codeine every 4 hours as needed, Bactrim DS 1 twi ce daily. Social History: Patient lives at home with parents. No IV drugs. No cocaine. No marijuana. No al cohol consumption. Family History: Noncontributory. Review of Systems: Aside from her recent seizures, she denies any fevers, chills, nausea, vomiting, myalgias, arthralgia s, rash, headache, weight change. No psychiatric issues. No gastrointestinal or genitourinary issue s. Physical Examination: Vital Signs: Blood pressure 107/59, pulse 68, respiratory rate 16, temperature 97.8, oxygen saturati on 98%. General: Ms. Lee is resting in bed comfortably. She is in no significant distress. HEENT: She is normocephalic, atraumatic. Her sclerae are anicteric. Oropharynx is pink and moist. Neck: Supple. Chest: Clear. Heart: Regular. Extremities: Show no edema, cyanosis, or clubbing. Neurologic: Alert and oriented to person, place, time, and situation. She has no expressive or rece ptive aphasias. Cranial nerves 2 through 12 intact by examination. Motor examination, she has sophia l bulk and tone. Upper and lower extremities strength 5/5. Sensory exam intact in upper and lower e xtremities. Coordination intact in upper and lower extremities. Reflexes 2+ symmetric. Diagnostic Data: Her head CT scan shows no acute ischemic or hemorrhagic change. There is a left arita boccipital craniotomy. 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 She has an 8.2 cm blood collection in the left posterior fossa and that h as been unchanged from January [address] scan of the head was done. She did not have a n EEG or brain MRI since the recent set of seizures. Assessment: Ms. Lee is a 21-year-old patient with anxiety, treated with Prozac and a posterior f roger arachnoid cyst surgically treated and subsequent seizures. She has been on Vimpat 50 mg twice d aily a week now and Keppra 750 mg tablets 2 twice daily. The regimen did include starting about 3 mo nths ago, Topamax 25 mg twice daily, but she did lose a lot of weight and does try to become and so that medication was stopped just prior to these seizures. Plan: 1.Increase Vimpat to 100 mg twice daily, Continue Keppra the 750 mg tablets 2 or 1500 mg twice daily . Do not restart Topamax. 2.At least 30 minutes of brisk exercise daily. 3.8 hours of restorative sleep at night. 4.Maintain a seizure diary and follow up in Dr. Puga's clinic within a month. TRAE/OLGA Voice ID: [id number] Report ID: [id number]
--- NOTE | 2022-04-01 21:59 | P.DS ---
Admission Date: 03/31/22 Discharge Date: 04/01/22 Disposition: ROUTINE DISCHARGE Discharge Condition: GOOD Reason for Admission: Epilepsy Brief History of Present Illness: 21-year-old female with past medical history of epilepsy, asthma, and anxiety who presented to the ED after experiencing multiple seizures today. A subarachnoid cyst was discovered about a year and a half ago and she had a suboccipital craniotomy at [facility] shortly after. Following the operation, she has had recurrent seizures. She has been taking Keppra and Topamax daily, however her seizures have not been under control. Her neurologist recently started her on Vimpat in addition to Keppra and has been tapering down her Topamax. Today was the last day of her Topamax taper. Mother reports that she had 3 seizures today, the longest one lasting 15-20 minutes. EMS gave 2 doses of 0.5 versed which resolved status epilepticus. Upon arrival to ED, she had another seizure lasting 2 minutes and was given 2 mg ativan and stopped her seizure. Labs are unremarkable and head CT is negative for acute findings. Vital signs stable. She has not had another seizure. She is post ictal/sleepy but arousable and is answering questions appropriately. She received 1000 mg keppra. ED provider wishes admit patient for observation. Hospital Course: Problem List Epilepsy with status epilepticus Seizure disorder s/p arachnoid cyst removal Patient presented after multiple seizures. She was given benzodiazepines and keppra. She improved and did not have any further seizure activity. CT head did not reveal any acute findings/changes. Dr. Puga was consulted and evaluated the patient. Recommended to continue keppra 1500mg twice a day, increase vimpat to 100mg twice daily start folic acid 1mg daily. Follow up with Dr. Puga in a few weeks. Vital Signs/Physical Exam: Temp Pulse Resp BP Pulse Ox 97.8 F 72 16 110/62 100 04/01/22 04:00 04/01/22 12:00 04/01/22 12:00 04/01/22 12:00 04/01/22 12:00 General: Alert, In no apparent distress, Oriented x3 HEENT: EOMI, Sclerae nonicteric Neck: Supple, No LAD Respiratory: Clear to auscultation bilaterally, Normal air movement Cardiovascular: No edema, Regular rate/rhythm Gastrointestinal: Soft and benign, Non-distended, No tenderness Musculoskeletal: No contractures, No tenderness Integumentary: No rashes, No significant lesion Neurological: Normal speech, Normal affect Laboratory Data at Discharge: WBC 7.80 K/uL (4.3-10.9) 03/31/22 20:09 Hgb 14.0 g/dL (12.0-15.0) 03/31/22 20:09 Hct 39.0 % (36.0-45.0) 03/31/22 20:09 Plt Count 279 K/uL (152-406) 03/31/22 20:09 Sodium 141 mmol/L (136-145) 03/31/22 20:09 Potassium 3.5 mmol/L (3.5-5.1) 03/31/22 20:09 BUN 10 mg/dL (7-18) 03/31/22 20:09 Creatinine 0.87 mg/dL (0.55-1.3) 03/31/22 20:09 Glucose 96 mg/dL (74-106) 03/31/22 20:09 Magnesium 2.2 mg/dL (1.8-2.4) 03/31/22 20:09 Total Bilirubin 0.6 mg/dL (0.2-1.0) 03/31/22 20:09 AST 14 U/L (15-37) L 03/31/22 20:09 ALT 30 U/L (12-78) 03/31/22 20:09 Alkaline Phosphatase 100 U/L (45-117) 03/31/22 20:09 Home Medications: Folic Acid 1 mg PO DAILY 30 Days #30 tab 04/01/22 Lacosamide [Vimpat] 100 mg PO BID 30 Days #60 tab 04/01/22 diazePAM [Diastat Acudial] 1 each RC ONCE PRN #1 kit 04/01/22 New Medications: diazePAM [Diastat Acudial] 1 each RC ONCE PRN #1 kit PRN Reason: Seizures Folic Acid 1 mg PO DAILY 30 Days #30 tab Lacosamide [Vimpat] 100 mg PO BID 30 Days #60 tab Physician Discharge Instructions: Patient presented after multiple seizures. She was given benzodiazepines and keppra. She improved and did not have any further seizure activity. CT head did not reveal any acute findings/changes. Dr. Puga was consulted and evaluated the patient. Recommended to continue keppra 1500mg twice a day, increase vimpat to 100mg twice daily start folic acid 1mg daily. Follow up with Dr. Puga in a few weeks. Followup: Stef Puga MD [ASSOCIATE-ACTIVE - CAN ADMIT] - Unknown,U [Primary Care Provider] - Time spent managing pt's care (in minutes): 45
[2022-04-02 05:22] VITALS: O2SAT 97
--- NOTE | 2022-04-04 12:59 | EKG ---
Test Date: 2022-03-31 Test Time: 20:10:08 Helpdesk Analyst: GARTH MEASUREMENT RESULTS: Intervals: Rate: 70 NC: 132 QRSD: 84 QT: 360 QTc: 388 [place]: P: 42 NC: 132 QRS: 81 T: 10 INTERPRETIVE STATEMENTS: Normal sinus rhythm with sinus arrhythmia Normal ECG Compared to ECG 01/21/2022 19:51:15 T-wave abnormality no longer present Electronically Signed On 04-04-22 12:52:50 [employer] by Darrel Tay
== END 2022-04-01 14:45 | disposition home or self-care (01) ==
LOC: ER 19:54 → ERHOLD 22:40
PROVIDERS: ADMIT Hospitalist; ATTEND Hospitalist
DX: G40.501 Epileptic seizures related to external causes, not intractable, with status epilepticus (principal); J45.909 Unspecified asthma, uncomplicated; F41.9 Anxiety disorder, unspecified; Z20.822 Contact with and (suspected) exposure to COVID-19
CPT/HCPCS: 93005; 85025; 80048; 36415; 83735; 81025; 82947; 80076; 70450; 96375; 96374; 99285; 87811; J1953; J7030; G0378 ×2; 81003; 81015

== ENCOUNTER 2022-04-26 20:50 | Emergency (ER) | payer BC ==
--- OUTSIDE RECORDS SUMMARY | 2022-04-26 20:56 | XMS REPORT | Continuity of Care Document ---
:2000 Author Organization [facility] t Address Formerly [facility] [place] [place] [address] Care Team Providers Name Role Phone AXEL PARRA Primary Care Physician Unavailable TRISTEN PAUL Attending Clinician Unavailable AXEL PARRA Attending Clinician Unavailable JEANNINE SHELL Attending Clinician Unavailable Angélica THORNTON, Kathryn Sandoval Attending Clinician Felicitas Khanna MD Attending Clinician Maggi Gar Attending Clinician Unknown, Attending Attending Clinician Unavailable MAGGI RITCHIE Attending Clinician Unavailable FELICITAS KHANNA Attending Clinician Unavailable Jeannine Shell MD Attending Clinician Axel Parra MD Attending Clinician CARMEN TALBERT Attending Clinician Unavailable Juma ALVARADO, Jennifer De Leon Attending Clinician Sarthak Stern MD Attending Clinician Carmen Talbert MD Attending Clinician 2, [facility] Lab Attending Clinician Unavailable Monet Goodwin MD Attending Clinician Jagdish THORNTON, Mike Bajwa Attending Clinician Unavailable Gui ALVARADO, Tristen Attending Clinician BILLY HEARD Attending Clinician Unavailable BILLY HEARD Attending Clinician Unavailable Christina ALVARADO, Cecilia Cuenca Attending Clinician SY TIMMONS Attending Clinician Unavailable Mayo Henry MD Attending Clinician Sy Timmons MD Attending Clinician ROSY GOODE Attending Clinician Unavailable Shine ALVARADO, Rosy Attending Clinician MONSE CHAVEZ Attending Clinician Unavailable Monse Chavez DO Attending Clinician JUSTIN BARRETO Attending Clinician Unavailable Justin Barreto DO Attending Clinician BÁRBARA GILLIS Attending Clinician Unavailable Pcp-Lab Attending Clinician Unavailable Bárbara Gillis MD Attending Clinician Perla Knight MD Attending Clinician Doctor Unassigned, [place] Attending Clinician Unavailable KAVITHA MAC Attending Clinician Unavailable Kavitha Mac MD Attending Clinician THALIA NICHOLE Attending Clinician Unavailable Thalia Anne Attending Clinician Luis Eduardo Myers DO Attending Clinician Lilo Mendieta MD Attending Clinician LILO MENDIETA Attending Clinician Unavailable Carleen Wagner RN Attending Clinician Unavailable Ranjit Robb MD Attending Clinician Only, Adc Test Attending Clinician Unavailable Brooks Sims MD, Ulises Whitt Attending Clinician [phone] CECILIA VASQUEZ Attending Clinician Unavailable MILLY RIOS Attending Clinician Unavailable Milly Huerta Attending Clinician [phone] ALBERT RUIZ Attending Clinician Unavailable FELICITAS KHANNA Admitting Clinician Unavailable Felicitas Khanna MD Admitting Clinician JEANNINE SHELL Admitting Clinician Unavailable CARMEN TALBERT Admitting Clinician Unavailable Carmen Talbert MD Admitting Clinician GITA HUNT Admitting Clinician Unavailable SY TIMMONS Admitting Clinician Unavailable Sy Timmons MD Admitting Clinician MONSE CHAVEZ Admitting Clinician Unavailable JUSTIN BARRETO Admitting Clinician Unavailable Ranjit Robb MD Admitting Clinician CECILIA VASQUEZ Admitting Clinician Unavailable TRISTEN PAUL Admitting Clinician Unavailable DEVIN SHEFFIELD Admitting Clinician Unavailable Payers Payer Name Policy Type Policy Number Effective Date Expiration Date S ource [facility] [place] [id number] 2021 EMPLOYEE PLAN 00:00:00 [place] [id number] 2022 WOMEN 00:00:00 [facility] [place] [id number] 2021 00:00:00 Problems Condition Condition Condition Status Onset Resolution Last Treating Co mments Source Name Details Category Date Date Treatment Clinician Date Seizure Seizure Disease Active 2021-05 Univers 1-13 ity of 00:00: [place] [facility] Syncope Syncope Disease Active 2021-05 Univers and and 0-05 ity of collapse collapse 00:00: [place] [facility] Tremor Tremor Disease Active 2021-05 Univers 0-05 ity of 00:00: [place] [facility] Dizziness Dizziness Disease Active 2021-05 Uni vers and and 0-05 ity of gidd[place] g[place]iness [place] 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 palpitatio palpitatio 0-05 it y of ns ns 00:00: [place] [facility] Anxiety Anxiety Disease Active 2021-05 Univers and and 0-05 ity of depression depression 00:00: [place] [facility] Weakness Weakness Disease Active Unive rs 9-25 ity of 00:00: [place] [facility] Seizure-li Seizure-li Disease Active U fracisco brock ke 4-11 ity of activity activity 00:00: Medical Branch 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 3-07 ity of 00:00: [place] 00 Medical Branch Seizure Seizure Disease Active Univers disorder disorder 3-07 ity of 00:00: [place] [facility] Numbness Numbness Disease Active Unive [...] Active Univers ALLERGIE Class ity of S [place] [facility] Social History Social Habit Start Date Stop Date Quantity Comments Source History of Passive smoker University of tobacco use [place] [facility] History SDOH University o f Alcohol Std [place] [facility] Drinks [facility] History SDOH University o f Alcohol Binge [place] [facility] History SDOH University o f Alcohol Comment [place] [facility] Exposure to 2022-04-08 2022-04-18 Not sure University of SARS-CoV-2 00:00:00 08:42:00 [place] [facility] (event) [facility] Tobacco use and 2022-04-18 2022-04-18 Smokeless tobacco Un iversity of exposure 00:00:00 00:00:00 non-user [place] [facility] Alcohol intake 2022-04-18 2022-04-18 Lifetime University of 00:00:00 00:00:00 non-drinker [place] [facility] (finding) Branch History SDOH 2021-09-10 2021-09-10 1 University o f Alcohol Frequency 00:00:00 00:00:00 [place] [facility] Education 2020-09-07 2020-09-07 12 University of 00:00:00 00:00:00 [facility] Sex Assigned At [birth year] Universit y of 00:00:00 00:00:00 [facility] Smoking Status Start Date Stop Date Source Never smoked tobacco [facility] Tobacco smoking consumption [facility] Branch Medications Ordered Filled Start Stop Current Ordering Indication Dosage Frequency Signature Comments Components Source Medication Medication Date Date Medication? Clinician (SIG) Name Name oseltamivir 2021-05- Yes [id number] 75mg Take 1 Univers (TAMIFLU) 2-15 - capsule by ity of 75 mg 00:00: 05:59 mouth in [place] capsule 00 :00 the [facility] morning [place] and 1 capsule in the evening. Do all this for 5 days. oseltamivir 2021-05- Yes [id number] 75mg Take 1 Univers (TAMIFLU) 2-15 - capsule by ity of 75 mg 00:00: 05:59 mouth in [place] capsule 00 :00 the [facility] morning [place] and 1 capsule in the evening. Do all this for 5 days. oseltamivir 2021-05- Yes [id number] 75mg Take 1 Univers (TAMIFLU) 2-15 04-27 capsule by ity of 75 mg 00:00: 05:59 mouth in [place] capsule 00 :00 the [facility] morning [place] and 1 capsule in the evening. Do all this for 5 days. foLIC acid 2021-05 Yes 1mg 1 mg, Univer s (FOLATE) 2-13 Oral, ity of tablet 1 mg 15:00: [place] Medical on [facility] 04/19/22 at 0900, Until Discontinu ed, Routine heparin 2021-05 Yes 5000U 5,000 Univers (porcine) 2-13 Units, ity of injection 02:00: [place] 5,000 Units 00 us, Q12H, Med ical First dose Branch on Mon04/18/22 at 2000, Until Discontinu ed, Routine acetaminoph 2021-05 Yes 650mg 650 mg, Un ramses en 2-12 Oral, ity of (TYLENOL) 16:31: Q6HPRN, [place] tablet 650 46 Starting Medic al mg on Mon [place] 04/18/22 at 1031, Until Discontinu ed, Routine, Pain (scale 1-3) LORazepam 2021-05 Yes 2mg 2 mg, Slow Un ramses (ATIVAN) 2-12 IV Push, ity of injection 2 16:30: PRN - SEE [place] mg 39 INSTRUCTIO Medical NS, 2 Branch doses, Starting on 04/18/22 at 1030, Until Discontinu ed, STAT, For seizure lasting two minutes or longer. lacosamide 2021-05 Yes [id number] 50mg Take 1 U nivers (VIMPAT) 50 2-08 tablet by ity of mg tablet 00:00: mouth [place] 00 every 8 Medical (eight) Branch hours. lacosamide 2021-05 Yes [id number] 50mg Take 1 U nivers (VIMPAT) 50 2-08 tablet by ity of mg tablet 00:00: mouth [place] 00 every 8 Medical (eight) Branch hours. lacosamide 2021-05- No [id number] 50mg Take 1 Univers (VIMPAT) 50 2-08 12-15 tablet by it y of mg tablet 00:00: 00:00 mouth [place] 00 :00 every 8 Medical (eight) Branch hours. lacosamide 2021-05 Yes [id number] 50mg Take 1 U nivers (VIMPAT) 50 2-07 tablet by ity of mg tablet 00:00: mouth [place] 00 every 8 Medical (eight) Branch hours. lacosamide 2021-05- No [id number] 50mg Take 1 Univers (VIMPAT) 50 2-07 12-08 tablet by it y of mg tablet 00:00: 00:00 mouth [place] 00 :00 every 8 Medical (eight) Branch hours. lacosamide 2021-05- No [id number] 50mg Take 1 Univers (VIMPAT) 50 2-07 12-08 tablet by it y of mg tablet 00:00: 00:00 mouth [place] 00 :00 every 8 Medical (eight) Branch hours. lacosamide 2021-05 Yes [id number] 50mg Take 1 U nivers (VIMPAT) 50 1-30 tablet by ity of mg tablet 00:00: mouth [place] 00 every 8 Medical (eight) Branch hours. lacosamide 2021-05- No [id number] 50mg Take 1 Univers (VIMPAT) 50 1-30 12-07 tablet by it y of mg tablet 00:00: 00:00 mouth [place] 00 :00 every 8 Medical (eight) Branch hours. gadobenate 2021-05- No [id number] .2mL/kg 0.2 mL/kg, [facility] dimeglumine 06-06 Intravenou i ty of (MULTIHANCE 00:00: 23:52 s, ONCE, 1 [place] -10 mL) 00 :00 dose, On Medical injection Tue Branch 0.2 mL/kg 04/05/22 at 1800, Routine pantoprazol 2021-05 Yes 40mg 40 mg, Univ ers e -14 Oral, ity of (PROTONIX) 15:00: DAILY, [place] EC tablet 00 First dose Medi michael 40 mg on [facility] Branch 03/21/22 at 0900, Until Discontinu ed, Routine levETIRAcet 2021-05 Yes 1500mg 1,500 mg, Univers am (KEPPRA) 14 Oral, BID, it y of tablet 14:00: First dose [place] 1,500 mg 00 on [facility] 03/21/22 Branch at 0800, Until Discontinu ed, Routine heparin 2021-05 Yes 5000U 5,000 Univers (porcine) 14 Units, ity of injection 14:00: [place] 5,000 Units 00 us, Q12H, Med ical First dose Branch on [facility] 03/21/22 at 0800, Until Discontinu ed, Routine levETIRAcet 2021-05- No 1500mg 1,500 mg, Univers am (KEPPRA) 05-21 IV ity of in NACL 06:15: 06:01 Piggyback, [place] (ISO-OS) 00 :00 ONCE, 1 Medical 1,500 dose, On Branch mg/100 mL [facility] RTU 03/21/22 at 0015, Administer over 15 Minutes, 100 mL topiramate 2021-05 Yes 25mg 25 mg, Unive rs (TOPAMAX) 1-14 Oral, BID, ity of tablet 25 05:45: First dose [place] mg 00 on [facility] 03/20/22 Branch at 2345, Until Discontinu ed, Routine
interior design faculty member approving Restricted medication : CARMEN TALBERT lacosamide 2021-05 Yes 50mg 50 mg, Unive rs (VIMPAT) 1-14 Oral, BID, ity o f tablet 50 04:00: First dose [place] mg 00 on [facility] 03/20/22 Branch at 2200, Until Discontinu ed, Routine
interior design faculty member approving Restricted medication : CARMEN TALBERT NaCl 0.9% 2021-05 Yes 1000mL at 75 Unive rs (NS) IV 1-14 mL/hr, IV ity of infusion 04:00: Infusion, [place] 1,000 mL 00 CONTINUOUS Medic al , Starting Branch on [place] 03/20/22 at 2200, Until Discontinu ed, Routine LORazepam 2021-05 Yes 2mg 2 mg, Slow Un ramses (ATIVAN) 1-14 IV Push, ity of injection 2 03:59: PRN, 5 [place] mg 33 doses, Medical Starting Branch on [place] 03/20/22 at 2159, Until Discontinu ed, Routine, Seizures acetaminoph 2021-05 Yes 650mg 650 mg, Un ramses en 1-14 Oral, ity of (TYLENOL) 03:52: Q6HPRN, [place] tablet 650 20 Starting Medic al mg on [facility] 03/20/22 at 2152, Until Discontinu ed, Routine, Pain (scale 4-6) docusate 2021-05 Yes 100mg 100 mg, Unive rs (COLACE) 1-14 Oral, ity of capsule 100 03:52: QDAILYPRN, [place] mg 20 Starting Medical on [facility] 03/20/22 at 2152, Until Discontinu ed, Routine, Constipati on NaCl 0.9% 2021-05- No 1000mL at 999 Uni vers (NS) bolus 1-14 11-14 mL/hr, ity of infusion 00:15: 00:00 1,000 mL, [place] 1,000 mL 00 :00 IV Medical Infusion, Branch ONCE, 1 dose, On [place] 03/20/22 at 1815, STAT LORazepam 2021-05- No 2mg 2 mg, Slow U nivers (ATIVAN) 05-2013 IV Push, ity of injection 2 23:45: 23:43 ONCE, 1 [place] mg 00 :00 dose, On [facility] 03/20/22 at 1745, STAT lacosamide 2021-05 Yes [id number] 50mg Take 1 U nivers (VIMPAT) 50 1-10 tablet by ity of mg tablet 00:00: [place] 00 the [facility] Branch and 1 tablet in the evening. lacosamide 2021-05 Yes [id number] 50mg Take 1 U nivers (VIMPAT) 50 1-10 tablet by ity of mg tablet 00:00: [place] 00 the Medical morning Branch and 1 tablet in the evening. lacosamide 2021-05 Yes [id number] 50mg Take 1 U nivers (VIMPAT) 50 1-10 tablet by ity of mg tablet 00:00: [place] 00 the Medical morning Branch and 1 tablet in the evening. lacosamide 2021-05 Yes [id number] 50mg Take 1 U nivers (VIMPAT) 50 1-10 tablet by ity of mg tablet 00:00: [place] 00 the Medical morning Branch and 1 tablet in the evening. lacosamide 2021-05 Yes [id number] 50mg Take 1 U nivers (VIMPAT) 50 1-10 tablet by ity of mg tablet 00:00: [place] 00 the Medical morning Branch and 1 tablet in the evening. lacosamide 2021-05 Yes [id number] 50mg Take 1 U nivers (VIMPAT) 50 1-10 tablet by ity of mg tablet 00:00: [place] 00 the Medical morning Branch and 1 tablet in the evening. lacosamide 2021-05 Yes [id number] 50mg Take 1 U nivers (VIMPAT) 50 1-10 tablet by ity of mg tablet 00:00: [place] 00 the Medical morning Branch and 1 tablet in the evening. lacosamide 2021-05- No [id number] 50mg Take 1 Univers (VIMPAT) 50 1-10 11-30 tablet by it y of mg tablet 00:00: 00:00 mouth in [place] 00 :00 the Medical morning Branch and 1 tablet in the evening. topiramate 2021-05 Yes [id number] 25mg Take 1 Univers 25 mg 1-03 tablet by ity of tablet 00:00: mouth in [place] 00 the Medical morning Branch and 1 tablet in the evening. topiramate 2021-05 Yes [id number] 25mg Take 1 Univers 25 mg 1-03 tablet by ity of tablet 00:00: mouth in 00 the Medical morning Branch and 1 tablet in the evening. topiramate 2021-05 Yes [id number] 25mg Take 1 Univers 25 mg 1-03 tablet by ity of tablet 00:00: mouth in [place] 00 the Medical morning Branch and 1 tablet in the evening. topiramate 2021-05 Yes [id number] 25mg Take 1 Univers 25 mg 1-03 tablet by ity of tablet 00:00: mouth in [place] 00 the Medical morning Branch and 1 tablet in the evening. topiramate 2021-05 Yes [id number] 25mg Take 1 Univers 25 mg 1-03 tablet by ity of tablet 00:00: mouth in [place] 00 the Medical morning Branch and 1 tablet in the evening. topiramate 2021-05 Yes [id number] 25mg Take 1 Univers 25 mg 1-03 tablet by ity of tablet 00:00: mouth in [place] 00 the Medical morning Branch and 1 tablet in the evening. topiramate 2021-05 Yes [id number] 25mg Take 1 Univers 25 mg 1-03 tablet by ity of tablet 00:00: mouth in [place] 00 the Medical morning Branch and 1 tablet in the evening. topiramate 2021-05 Yes [id number] 25mg Take 1 Univers 25 mg 1-03 tablet by ity of tablet 00:00: mouth in [place] 00 the Medical morning Branch and 1 tablet in the evening. topiramate 2021-05 Yes [id number] 25mg Take 1 Univers 25 mg 1-03 tablet by ity of tablet 00:00: mouth in [place] 00 the Medical morning Branch and 1 tablet in the evening. topiramate 2021-05 Yes [id number] 25mg Take 1 Univers 25 mg 1-03 tablet by ity of tablet 00:00: mouth in [place] 00 the Medical morning Branch and 1 tablet in the evening. topiramate 2021-05 Yes [id number] 25mg Take 1 Univers 25 mg 1-03 tablet by ity of tablet 00:00: mouth in [place] 00 the Medical morning Branch and 1 tablet in the evening. topiramate 2021- Yes [id number] 25mg Take 1 Univers 25 mg 1-03 tablet by ity of tablet 00:00: mouth in [place] [address] the Medical morning Branch and 1 tablet in the evening. topiramate 2021- Yes [id number] 25mg Take 1 Univers 25 mg 1-03 tablet by ity of tablet 00:00: mouth in [place] 00 the [facility] morning Branch and 1 tablet in the evening. topiramate 2021-05 Yes [id number] 25mg Take 1 Univers 25 mg 1-03 tablet by ity of tablet 00:00: mouth in [place] 00 the [facility] morning Branch and 1 tablet in the evening. topiramate 2021-05- No [id number] 25mg Take 1 Univers 25 mg 1-03 12-15 tablet by ity of tablet 00:00: 00:00 mouth in [place] 00 :00 the [facility] and 1 tablet in the evening. topiramate Yes 25mg 25 mg, Unive rs (TOPAMAX) 01-31 Oral, ity of tablet 25 17:30: DAILY, [place] mg 00 First dose Medical on [facility] 01/31/22 at 1230, Until Discontinu ed, Routine
interior design faculty member approving Restricted medication : CECILIA VASQUEZ SERTraline Yes 25mg 25 mg, Unive rs (ZOLOFT) 01-31 Oral, ity of tablet 25 14:00: DAILY, [place] mg 00 First dose Medical on [facility] 01/31/22 at 0900, Until Discontinu ed, Routine foLIC acid Yes 1mg 1 mg, Univer s (FOLATE) 01-31 Oral, ity of tablet 1 mg 14:00: DAILY, [place] 00 First dose Medical on [facility] 01/31/22 at 0900, Until Discontinu ed, Routine heparin 0 Yes 5000U 5,000 Univers (porcine) 01-31 Units, ity of injection 13:00: [place] 5,000 Units 00 us, Q12H, Med ical First dose Branch on [facility] 01/31/22 at 0800, Until Discontinu ed, Routine levETIRAcet Yes 1500mg 1,500 mg, Univers am (KEPPRA) 01-31 Oral, BID, it y of tablet 13:00: First dose [place] 1,500 mg 00 on [facility] 01/31/22 at Branch 0800, Until Discontinu ed, Routine acetaminoph 0 Yes 650mg 650 mg, Un ramses en 01-31 Oral, ity of (TYLENOL) 04:06: Q6HPRN, [place] tablet 650 49 Starting Medic al mg on [facility] 01/30/22 at 2306, Until Discontinu ed, Routine, Pain (scale 4-6) docusate Yes 100mg 100 mg, Unive rs (COLACE) 01-31 Oral, ity of capsule 100 04:06: QDAILYPRN, [place] mg 48 Starting Medical on [facility] 01/30/22 at 2306, Until Discontinu ed, Routine, Constipati on ondansetron Yes 4mg 4 mg, Unive rs (ZOFRAN-ODT 01-31 Oral, ity of ) 04:06: Q8HPRN, [place] disintegrat 36 Starting Medi michael ing tablet on [facility] 4 mg 01/30/22 at 2306, Until Discontinu ed, Routine, Nausea and Vomiting (N/V) acetaminoph Yes 650mg 650 mg, Un ramses en 01-31 Oral, ity of (TYLENOL) 04:06: Q6HPRNAvery, [place] tablet 650 15 Starting Medic al mg on [facility] 01/30/22 at 2306, Until Discontinu ed, Routine, Pain (scale 1-3), Temp > 38.5 C LORazepam 2021- No .5mg 0.5 mg, Univ ers (ATIVAN) 01-31 Slow IV ity of injection 01:30: 00:35 Push, [place] 0.5 mg 00 :00 ONCE, 1 Medical dose, On Branch [place] 01/30/22 at 2030, STAT
Is the medication being used for status epilepticu s? No topiramate 2022- Yes [id number] 25mg Take 1 Univers 25 mg 01-31 tablet by ity of tablet 00:00: 04:59 mouth in [place] 00 :00 the Medical morning [place] for 180 days. topiramate 2022- Yes [id number] 25mg Take 1 Univers 25 mg 01-31 tablet by ity of tablet 00:00: 04:59 mouth in [place] 00 :00 the [facility] for 180 days. topiramate 2022- Yes [id number] 25mg Take 1 Univers 25 mg 01-31 tablet by ity of tablet 00:00: 04:59 mouth in [place] 00 :00 the Medical morning Branch for 180 days. topiramate 2021-2022- Yes [id number] 25mg Take 1 Univers 25 mg 9-26 03-26 tablet by ity of tablet 00:00: 04:59 mouth in [place] 00 :00 the Medical morning Branch for 180 days. topiramate 2021-2022- Yes [id number] 25mg Take 1 Univers 25 mg 9-26 03-26 tablet by ity of tablet 00:00: 04:59 mouth in [place] 00 :00 the Medical morning Branch for 180 days. topiramate 2021-2022- Yes [id number] 25mg Take 1 Univers 25 mg 9-26 03-26 tablet by ity of tablet 00:00: 04:59 mouth in [place] 00 :00 the [facility] morning Branch for 180 days. topiramate 2022- Yes [id number] 25mg Take 1 Univers 25 mg 9-26 03-26 tablet by ity of tablet 00:00: 04:59 mouth in [place] 00 :00 the [facility] morning Branch for 180 days. topiramate 2022- Yes [id number] 25mg Take 1 Univers 25 mg 9-26 03-26 tablet by ity of tablet 00:00: 04:59 mouth in [place] 00 :00 the [facility] morning Branch for 180 days. topiramate 2021-2022- Yes [id number] 25mg Take 1 Univers 25 mg 9-26 03-26 tablet by ity of tablet 00:00: 04:59 mouth in [place] 00 :00 the Medical morning Branch for 180 days. topiramate 2021-2022- Yes [id number] 25mg Take 1 Univers 25 mg 9-26 03-26 tablet by ity of tablet 00:00: 04:59 mouth in [place] 00 :00 the Medical morning Branch for 180 days. topiramate 2021-0 2022- Yes [id number] 25mg Take 1 Univers 25 mg 9-26 03-26 tablet by ity of tablet 00:00: 04:59 mouth in [place] 00 :00 the Medical morning Branch for 180 days. topiramate 2021-2021- No [id number] 25mg Take 1 Univers 25 mg 9-26 11-03 tablet by ity of tablet 00:00: 00:00 mouth in [place] 00 :00 the Medical morning Branch for 180 days. topiramate 2021- No [id number] 25mg Take 1 Univers 25 mg 01-31 tablet by ity of tablet 00:00: 00:00 mouth in [place] 00 :00 the [facility] for 180 days. levETIRAcet 2021- No 1000mg [...] status epilepticu s? No levETIRAcet 2022- Yes [id number] 1500mg Take 2 Univers am 750 mg 01-27 tablets by ity of tablet 00:00: 04:59 mouth in [place] 00 :00 the [facility] and 2 tablets in the evening. Do all this for 180 days. foLIC acid 2022- Yes [id number] 1mg Take 1 Univers 1 mg tablet 01-27 tablet by it y of 00:00: 04:59 mouth in [place] 00 :00 [facility] for 180 days. levETIRAcet 2022- Yes [id number] 1500mg Take 2 Univers am 750 mg 01-27 tablets by ity of tablet 00:00: 04:59 mouth in [place] 00 :00 the Medical morning Branch and 2 tablets in the evening. Do all this for 180 days. foLIC acid 2022- Yes [id number] 1mg Take 1 Univers 1 mg tablet 01-27 tablet by it y of 00:00: 04:59 mouth in [place] 00 :00 the [facility] for 180 days. levETIRAcet 2022- Yes [id number] 1500mg Take 2 Univers am 750 mg 01-27 tablets by ity of tablet 00:00: 04:59 mouth in [place] 00 :00 the [facility] and 2 tablets in the evening. Do all this for 180 days. foLIC acid 2022- Yes [id number] 1mg Take 1 Univers 1 mg tablet 01-27 tablet by it y of 00:00: 04:59 mouth in [place] 00 :00 the [facility] for 180 days. levETIRAcet 2022- Yes [id number] 1500mg Take 2 Univers am 750 mg 01-27 tablets by ity of tablet 00:00: 04:59 mouth in [place] 00 :00 the [facility] and 2 tablets in the evening. Do all this for 180 days. foLIC acid 2022- Yes [id number] 1mg Take 1 Univers 1 mg tablet 01-27 tablet by it y of 00:00: 04:59 mouth in [place] 00 :00 the [facility] for 180 days. levETIRAcet 2022- Yes [id number] 1500mg Take 2 Univers am 750 mg 01-27 tablets by ity of tablet 00:00: 04:59 mouth in [place] 00 :00 the [facility] and 2 tablets in the evening. Do all this for 180 days. foLIC acid 2022- Yes [id number] 1mg Take 1 Univers 1 mg tablet 01-27 tablet by it y of 00:00: 04:59 mouth in [place] 00 :00 the [facility] for 180 days. levETIRAcet 2022- Yes [id number] 1500mg Take 2 Univers am 750 mg 01-27 tablets by ity of tablet 00:00: 04:59 mouth in [place] 00 :00 the [facility] and 2 tablets in the evening. Do all this for 180 days. foLIC acid 2022- Yes [id number] 1mg Take 1 Univers 1 mg tablet 01-27 tablet by it y of 00:00: 04:59 mouth in [place] 00 :00 the [facility] for 180 days. levETIRAcet 2022- Yes [id number] 1500mg Take 2 Univers am 750 mg 01-27 tablets by ity of tablet 00:00: 04:59 mouth in [place] 00 :00 the [facility] morning Branch and 2 tablets in the evening. Do all this for 180 days. foLIC acid 2022- Yes [id number] 1mg Take 1 Univers 1 mg tablet 01-27 tablet by it y of 00:00: 04:59 mouth in [place] 00 :00 the [facility] for 180 days. levETIRAcet 2022- Yes [id number] 1500mg Take 2 Univers am 750 mg 01-27 tablets by ity of tablet 00:00: 04:59 mouth in [place] 00 :00 the [facility] and 2 tablets in the evening. Do all this for 180 days. foLIC acid 2022- Yes [id number] 1mg Take 1 [facility] 1 mg tablet 01-27 tablet by it y of 00:00: 04:59 mouth in [place] 00 :00 the [facility] for 180 days. levETIRAcet 2022- Yes [id number] 1500mg Take 2 [facility] am 750 mg 01-27 tablets by ity of tablet 00:00: 04:59 mouth in [place] 00 :00 the [facility] Branch and 2 tablets in the evening. Do all this for 180 days. foLIC acid 2022- Yes [id number] 1mg Take 1 [facility] 1 mg tablet 01-27 tablet by it y of 00:00: 04:59 mouth in [place] 00 :00 the [facility] for 180 days. levETIRAcet 2022- Yes [id number] 1500mg Take 2 [facility] am 750 mg 01-27 tablets by ity of tablet 00:00: 04:59 mouth in [place] 00 :00 the [facility] morning Branch and 2 tablets in the evening. Do all this for 180 days. foLIC acid 2022- Yes [id number] 1mg Take 1 [facility] 1 mg tablet 01-27 tablet by it y of 00:00: 04:59 mouth in [place] 00 :00 the [facility] morning [place] for 180 days. levETIRAcet 2022- Yes [id number] 1500mg Take 2 [facility] am 750 mg 01-27 tablets by ity of tablet 00:00: 04:59 mouth in [place] 00 :00 the [facility] morning Branch and 2 tablets in the evening. Do all this for 180 days. foLIC acid 2022- Yes [id number] 1mg Take 1 [facility] 1 mg tablet 01-27 tablet by it y of 00:00: 04:59 mouth in [place] 00 :00 the [facility] for 180 days. levETIRAcet 2022- Yes [id number] 1500mg Take 2 [facility] am 750 mg 01-27 tablets by ity of tablet 00:00: 04:59 mouth in [place] 00 :00 the [facility] and 2 tablets in the evening. Do all this for 180 days. foLIC acid 2022- Yes [id number] 1mg Take 1 [facility] 1 mg tablet 01-27 tablet by it y of 00:00: 04:59 mouth in [place] 00 :00 the [facility] for 180 days. levETIRAcet 2022- Yes [id number] 1500mg Take 2 [facility] am 750 mg 01-27 tablets by ity of tablet 00:00: 04:59 mouth in [place] 00 :00 the [facility] and 2 tablets in the evening. Do all this for 180 days. foLIC acid 2022- Yes [id number] 1mg Take 1 [facility] 1 mg tablet 01-27 tablet by it y of 00:00: 04:59 mouth in [place] 00 :00 the [facility] for 180 days. levETIRAcet 2022- Yes [id number] 1500mg Take 2 [facility] am 750 mg 01-27 tablets by ity of tablet 00:00: 04:59 mouth in [place] 00 :00 the [facility] and 2 tablets in the evening. Do all this for 180 days. foLIC acid 2022- Yes [id number] 1mg Take 1 [facility] 1 mg tablet 01-27 tablet by it y of 00:00: 04:59 mouth in [place] 00 :00 the [facility] for 180 days. levETIRAcet 2022- Yes [id number] 1500mg Take 2 [facility] am 750 mg 01-27 tablets by ity of tablet 00:00: 04:59 mouth in [place] 00 :00 the [facility] and 2 tablets in the evening. Do all this for 180 days. foLIC acid 2022- Yes [id number] 1mg Take 1 [facility] 1 mg tablet 01-27 tablet by it y of 00:00: 04:59 mouth in [place] 00 :00 [facility] for 180 days. levETIRAcet 2022- Yes [id number] 1500mg Take 2 [facility] am 750 mg 01-27 tablets by ity of tablet 00:00: 04:59 mouth in [place] 00 :00 [facility] and 2 tablets in the evening. Do all this for 180 days. foLIC acid 2022- Yes [id number] 1mg Take 1 [facility] 1 mg tablet 01-27 tablet by it y of 00:00: 04:59 mouth in [place] 00 :00 [facility] for 180 days. levETIRAcet 2022- Yes [id number] 1500mg Take 2 [facility] am 750 mg 01-27 tablets by ity of tablet 00:00: 04:59 mouth in [place] 00 :00 [facility] and 2 tablets in the evening. Do all this for 180 days. foLIC acid 2022- Yes [id number] 1mg Take 1 [facility] 1 mg tablet 01-27 tablet by it y of 00:00: 04:59 mouth in [place] 00 :00 [facility] for 180 days. levETIRAcet 2022- Yes [id number] 1500mg Take 2 [facility] am 750 mg 01-27 tablets by ity of tablet 00:00: 04:59 mouth in [place] 00 :00 [facility] and 2 tablets in the evening. Do all this for 180 days. foLIC acid 2022- Yes [id number] 1mg Take 1 [facility] 1 mg tablet 01-27 tablet by it y of 00:00: 04:59 mouth in [place] 00 :00 [facility] for 180 days. levETIRAcet 2022- Yes [id number] 1500mg Take 2 [facility] am 750 mg 01-27 tablets by ity of tablet 00:00: 04:59 mouth in [place] 00 :00 the [facility] morning Branch and 2 tablets in the evening. Do all this for 180 days. foLIC acid 2022- Yes [id number] 1mg Take 1 [facility] 1 mg tablet 01-27 tablet by it y of 00:00: 04:59 mouth in [place] 00 :00 the [facility] for 180 days. levETIRAcet 2022- Yes [id number] 1500mg Take 2 [facility] am 750 mg 01-27 tablets by ity of tablet 00:00: 04:59 mouth in [place] 00 :00 the [facility] and 2 tablets in the evening. Do all this for 180 days. foLIC acid 2022- Yes [id number] 1mg Take 1 [facility] 1 mg tablet 01-27 tablet by it y of 00:00: 04:59 mouth in [place] 00 :00 the [facility] for 180 days. levETIRAcet 2022- Yes [id number] 1500mg Take 2 [facility] am 750 mg 01-27 tablets by ity of tablet 00:00: 04:59 mouth in [place] 00 :00 the [facility] and 2 tablets in the evening. Do all this for 180 days. foLIC acid 2022- Yes [id number] 1mg Take 1 [facility] 1 mg tablet 01-27 tablet by it y of 00:00: 04:59 mouth in [place] 00 :00 the [facility] for 180 days. levETIRAcet 2022- Yes [id number] 1500mg Take 2 [facility] am 750 mg 01-27 tablets by ity of tablet 00:00: 04:59 mouth in [place] 00 :00 the [facility] Branch and 2 tablets in the evening. Do all this for 180 days. foLIC acid 2022- Yes [id number] 1mg Take 1 [facility] 1 mg tablet 01-27 tablet by it y of 00:00: 04:59 mouth in [place] 00 :00 the [facility] for 180 days. levETIRAcet 2022- Yes [id number] 1500mg Take 2 [facility] am 750 mg 9-22 03-22 tablets by ity of tablet 00:00: 04:59 mouth in [place] 00 :00 the Medical morning Branch and 2 tablets in the evening. Do all this for 180 days. foLIC acid 2022- Yes [id number] 1mg Take 1 [facility] 1 mg tablet 01-27 tablet by it y of 00:00: 04:59 mouth in [place] 00 :00 the [facility] morning Branch for 180 days. levETIRAcet 2022- Yes [id number] 1500mg Take 2 [facility] am 750 mg 01-27 tablets by ity of tablet 00:00: 04:59 mouth in [place] 00 :00 the [facility] morning Branch and 2 tablets in the evening. Do all this for 180 days. foLIC acid 2022- Yes [id number] 1mg Take 1 [facility] 1 mg tablet 01-27 tablet by it y of 00:00: 04:59 mouth in [place] 00 :00 the [facility] for 180 days. levETIRAcet 2022- Yes [id number] 1500mg Take 2 [facility] am 750 mg 01-27 tablets by ity of tablet 00:00: 04:59 mouth in [place] 00 :00 the [facility] and 2 tablets in the evening. Do all this for 180 days. foLIC acid 2022- Yes [id number] 1mg Take 1 [facility] 1 mg tablet 01-27 tablet by it y of 00:00: 04:59 mouth in [place] 00 :00 the [facility] for 180 days. levETIRAcet 2022- Yes [id number] 1500mg Take 2 [facility] am 750 mg 01-27 tablets by ity of tablet 00:00: 04:59 mouth in [place] 00 :00 the [facility] morning Branch and 2 tablets in the evening. Do all this for 180 days. foLIC acid 2022- Yes [id number] 1mg Take 1 [facility] 1 mg tablet 01-27 tablet by it y of 00:00: 04:59 mouth in [place] 00 :00 the [facility] for 180 days. levETIRAcet 2022- Yes [id number] 1500mg Take 2 [facility] am 750 mg 01-27 tablets by ity of tablet 00:00: 04:59 mouth in [place] 00 :00 the Medical morning Branch and 2 tablets in the evening. Do all this for 180 days. foLIC acid 2022- Yes [id number] 1mg Take 1 [facility] 1 mg tablet 01-27 tablet by it y of 00:00: 04:59 mouth in [place] 00 :00 the [facility] for 180 days. levETIRAcet 2022- Yes [id number] 1500mg Take 2 [facility] am 750 mg 01-27 tablets by ity of tablet 00:00: 04:59 mouth in [place] 00 :00 the [facility] and 2 tablets in the evening. Do all this for 180 days. foLIC acid 2022- Yes [id number] 1mg Take 1 [facility] 1 mg tablet 01-27 tablet by it y of 00:00: 04:59 mouth in [place] 00 :00 the [facility] for 180 days. levETIRAcet 2022- Yes [id number] 1500mg Take 2 [facility] am 750 mg 01-27 tablets by ity of tablet 00:00: 04:59 mouth in [place] 00 :00 the [facility] and 2 tablets in the evening. Do all this for 180 days. foLIC acid 2022- Yes [id number] 1mg Take 1 [facility] 1 mg tablet 01-27 tablet by it y of 00:00: 04:59 mouth in [place] 00 :00 the [facility] for 180 days. levETIRAcet 2022- Yes [id number] 1500mg Take 2 [facility] am 750 mg 01-27 tablets by ity of tablet 00:00: 04:59 mouth in [place] 00 :00 the [facility] and 2 tablets in the evening. Do all this for 180 days. foLIC acid 2022- Yes [id number] 1mg Take 1 [facility] 1 mg tablet 01-27 tablet by it y of 00:00: 04:59 mouth in [place] 00 :00 the [facility] for 180 days. levETIRAcet 2021- No [id number] 1500mg Take 2 [facility] am 750 mg 01-27 12-15 tablets by ity of tablet 00:00: 00:00 mouth in [place] 00 :00 the [facility] and 2 tablets in the evening. Do all this for 180 days. foLIC acid 2021- No [id number] 1mg Take 1 [facility] 1 mg tablet 01-2715 tablet by it y of 00:00: 00:00 mouth in [place] 00 :00 the Medical morning Branch for 180 days. levETIRAcet 2021- No 750mg Take 750 [facility] am (KEPPRA) 12-24 08-19 mg by ity of 750 mg 15:54: 00:00 mouth in [place] tablet 35 :00 the Medical morning Branch and 750 mg in the evening. levETIRAcet Yes [id number] 1000mg Take 1 [facility] am (KEPPRA) 12-24 tablet by ity of 1,000 mg 00:00: mouth in [place] tablet 00 the Medical morning Branch and 1 tablet in the evening. levETIRAcet Yes [id number] 1000mg Take 1 [facility] am (KEPPRA) 12-24 tablet by ity of 1,000 mg 00:00: mouth in [place] tablet 00 the Medical morning Branch and 1 tablet in the evening. levETIRAcet Yes [id number] 1000mg Take 1 [facility] am (KEPPRA) 12-24 tablet by ity of 1,000 mg 00:00: mouth in [place] tablet 00 the Medical morning Branch and 1 tablet in the evening. levETIRAcet 2021- No [id number] 1000mg Take 1 [facility] am (KEPPRA) 12-24 tablet by it y of 1,000 mg 00:00: 00:00 [place] tablet 00 :00 the [facility] morning Branch and 1 tablet in the evening. levETIRAcet 2021- No [id number] 1000mg Take 1 [facility] am (KEPPRA) 12-24 tablet by it y of 1,000 mg 00:00: 00:00 [place] tablet 00 :00 the [facility] morning Branch and 1 tablet in the evening. levETIRAcet 2021- No [id number] 1000mg Take 1 [facility] am (KEPPRA) 12-24 tablet by it y of 1,000 mg 00:00: 00:00 [place] tablet 00 :00 the [facility] morning Branch and 1 tablet in the evening. SERTraline 2022-0 Yes [id number] 25mg Take 1 U nivers 25 mg 8-01 tablet by ity of tablet 00:00: mouth in [place] 00 the Medical morning. Branch SERTraline 2021-0 Yes [id number] 25mg Take 1 U nivers 25 mg 8-01 tablet by ity of tablet 00:00: mouth in [place] 00 the Medical morning. Branch SERTraline 2021-0 Yes [id number] 25mg Take 1 U nivers 25 mg 8-01 tablet by ity of tablet 00:00: mouth in [place] 00 the Medical morning. Branch SERTraline 2021-0 Yes [id number] 25mg Take 1 U nivers 25 mg 8-01 tablet by ity of tablet 00:00: mouth in [place] 00 the Medical morning. Branch SERTraline 2021-0 Yes [id number] 25mg Take 1 U nivers 25 mg 8-01 tablet by ity of tablet 00:00: mouth in [place] 00 the Medical morning. Branch SERTraline 2021-0 Yes [id number] 25mg Take 1 U nivers 25 mg 8-01 tablet by ity of tablet 00:00: mouth in [place] 00 the Medical morning. Branch SERTraline 2021-0 Yes [id number] 25mg Take 1 U nivers 25 mg 8-01 tablet by ity of tablet 00:00: mouth in [place] 00 the Medical morning. Branch SERTraline 2021-0 Yes [id number] 25mg Take 1 U nivers 25 mg 8-01 tablet by ity of tablet 00:00: mouth in [place] 00 the Medical morning. Branch SERTraline 2021-0 Yes [id number] 25mg Take 1 U nivers 25 mg 8-01 tablet by ity of tablet 00:00: mouth in [place] 00 the Medical morning. Branch SERTraline 2021-0 Yes [id number] 25mg Take 1 U nivers 25 mg 8-01 tablet by ity of tablet 00:00: mouth in [place] 00 the Medical morning. Branch SERTraline 2021-0 Yes [id number] 25mg Take 1 U nivers 25 mg 8-01 tablet by ity of tablet 00:00: mouth in [place] 00 the Medical morning. Branch SERTraline 2021-0 Yes [id number] 25mg Take 1 U nivers 25 mg 8-01 tablet by ity of tablet 00:00: mouth in [place] 00 the Medical morning. Branch SERTraline 2021- No [id number] 25mg Take 1 [facility] 25 mg 12-0605 tablet by ity of tablet 00:00: 00:00 mouth in [place] 00 :00 the Medical morning. Branch SERTraline 2021- No [id number] 25mg Take 1 [facility] 25 mg 12-06 1005 tablet by ity of tablet 00:00: 00:00 mouth in [place] 00 :00 the Medical morning. Branch ondansetron Yes [id number] 4mg Take 1 [facility] (ZOFRAN 6-23 tablet by ity of ODT) 4 mg 00:00: mouth [place] disintegrat 00 every 8 Medic al ing tablet (eight) Branch hours as needed for Nausea and Vomiting (N/V). ondansetron Yes [id number] 4mg Take 1 [facility] (ZOFRAN 6-23 tablet by ity of ODT) 4 mg 00:00: mouth [place] disintegrat 00 every 8 Medic al ing tablet (eight) Branch hours as needed for Nausea and Vomiting (N/V). ondansetron Yes [id number] 4mg Take 1 [facility] (ZOFRAN 6-23 tablet by ity of ODT) 4 mg 00:00: mouth [place] disintegrat 00 every 8 Medic al ing tablet (eight) Branch hours as needed for Nausea and Vomiting (N/V). ondansetron Yes [id number] 4mg Take 1 [facility] (ZOFRAN 6-23 tablet by ity of ODT) 4 mg 00:00: mouth [place] disintegrat 00 every 8 Medic al ing tablet (eight) Branch hours as needed for Nausea and Vomiting (N/V). ondansetron Yes [id number] 4mg Take 1 [facility] (ZOFRAN 6-23 tablet by ity of ODT) 4 mg 00:00: mouth [place] disintegrat 00 every 8 Medic al ing tablet (eight) Branch hours as needed for Nausea and Vomiting (N/V). ondansetron Yes [id number] 4mg Take 1 [facility] (ZOFRAN 6-23 tablet by ity of ODT) 4 mg 00:00: mouth [place] disintegrat 00 every 8 Medic al ing tablet (eight) Branch hours as needed for Nausea and Vomiting (N/V). ondansetron 2021-0 Yes [id number] 4mg Take 1 [facility] (ZOFRAN 6-23 tablet by ity of ODT) 4 mg 00:00: mouth [place] disintegrat 00 every 8 Medic al ing tablet (eight) Branch hours as needed for Nausea and Vomiting (N/V). ondansetron 202-0 Yes [id number] 4mg Take 1 [facility] (ZOFRAN 6-23 tablet by ity of ODT) 4 mg 00:00: mouth [place] disintegrat 00 every 8 Medic al ing tablet (eight) Branch hours as needed for Nausea and Vomiting (N/V). ondansetron 2020-0 Yes [id number] 4mg Take 1 [facility] (ZOFRAN 6-23 tablet by ity of ODT) 4 mg 00:00: mouth [place] disintegrat 00 every 8 Medic al ing tablet (eight) Branch hours as needed for Nausea and Vomiting (N/V). ondansetron 2020-0 Yes [id number] 4mg Take 1 [facility] (ZOFRAN 6-23 tablet by ity of ODT) 4 mg 00:00: mouth [place] disintegrat 00 every 8 Medic al ing tablet (eight) Branch hours as needed for Nausea and Vomiting (N/V). ondansetron 2020-0 Yes [id number] 4mg Take 1 [facility] (ZOFRAN 6-23 tablet by ity of ODT) 4 mg 00:00: mouth [place] disintegrat 00 every 8 Medic al ing tablet (eight) Branch hours as needed for Nausea and Vomiting (N/V). ondansetron 2020-0 Yes [id number] 4mg Take 1 [facility] (ZOFRAN 6-23 tablet by ity of ODT) 4 mg 00:00: mouth [place] disintegrat 00 every 8 Medic al ing tablet (eight) Branch hours as needed for Nausea and Vomiting (N/V). ondansetron 2020-0 Yes [id number] 4mg Take 1 [facility] (ZOFRAN 6-23 tablet by ity of ODT) 4 mg 00:00: mouth [place] disintegrat 00 every 8 Medic al ing tablet (eight) Branch hours as needed for Nausea and Vomiting (N/V). ondansetron 2020-0 Yes [id number] 4mg Take 1 [facility] (ZOFRAN 6-23 tablet by ity of ODT) 4 mg 00:00: mouth [place] disintegrat 00 every 8 Medic al ing tablet (eight) Branch hours as needed for Nausea and Vomiting (N/V). ondansetron 2021-0 Yes [id number] 4mg Take 1 [facility] (ZOFRAN 6-23 tablet by ity of ODT) 4 mg 00:00: mouth [place] disintegrat 00 every 8 Medic al ing tablet (eight) Branch hours as needed for Nausea and Vomiting (N/V). ondansetron 2021-0 Yes [id number] 4mg Take 1 [facility] (ZOFRAN 6-23 tablet by ity of ODT) 4 mg 00:00: mouth [place] disintegrat 00 every 8 Medic al ing tablet (eight) Branch hours as needed for Nausea and Vomiting (N/V). ondansetron 2021-0 Yes [id number] 4mg Take 1 [facility] (ZOFRAN 6-23 tablet by ity of ODT) 4 mg 00:00: mouth [place] disintegrat 00 every 8 Medic al ing tablet (eight) Branch hours as needed for Nausea and Vomiting (N/V). ondansetron 2021-0 Yes [id number] 4mg Take 1 [facility] (ZOFRAN 6-23 tablet by ity of ODT) 4 mg 00:00: mouth [place] disintegrat 00 every 8 Medic al ing tablet (eight) Branch hours as needed for Nausea and Vomiting (N/V). ondansetron 2021-0 Yes [id number] 4mg Take 1 [facility] (ZOFRAN 6-23 tablet by ity of ODT) 4 mg 00:00: mouth [place] disintegrat 00 every 8 Medic al ing tablet (eight) Branch hours as needed for Nausea and Vomiting (N/V). ondansetron 2021-0 Yes [id number] 4mg Take 1 [facility] (ZOFRAN 6-23 tablet by ity of ODT) 4 mg 00:00: mouth [place] disintegrat 00 every 8 Medic al ing tablet (eight) Branch hours as needed for Nausea and Vomiting (N/V). ondansetron 2021-0 Yes [id number] 4mg Take 1 [facility] (ZOFRAN 6-23 tablet by ity of ODT) 4 mg 00:00: mouth [place] disintegrat 00 every 8 Medic al ing tablet (eight) Branch hours as needed for Nausea and Vomiting (N/V). ondansetron 2021-0 Yes [id number] 4mg Take 1 [facility] (ZOFRAN 6-23 tablet by ity of ODT) 4 mg 00:00: mouth [place] disintegrat 00 every 8 Medic al ing tablet (eight) Branch hours as needed for Nausea and Vomiting (N/V). ondansetron 2021-0 Yes [id number] 4mg Take 1 [facility] (ZOFRAN 6-23 tablet by ity of ODT) 4 mg 00:00: mouth [place] disintegrat 00 every 8 Medic al ing tablet (eight) Branch hours as needed for Nausea and Vomiting (N/V). ondansetron 202-0 Yes [id number] 4mg Take 1 [facility] (ZOFRAN 6-23 tablet by ity of ODT) 4 mg 00:00: mouth [place] disintegrat 00 every 8 Medic al ing tablet (eight) Branch hours as needed for Nausea and Vomiting (N/V). ondansetron 2020-0 Yes [id number] 4mg Take 1 [facility] (ZOFRAN 6-23 tablet by ity of ODT) 4 mg 00:00: mouth [place] disintegrat 00 every 8 Medic al ing tablet (eight) Branch hours as needed for Nausea and Vomiting (N/V). ondansetron 2020-0 Yes [id number] 4mg Take 1 [facility] (ZOFRAN 6-23 tablet by ity of ODT) 4 mg 00:00: mouth [place] disintegrat 00 every 8 Medic al ing tablet (eight) Branch hours as needed for Nausea and Vomiting (N/V). ondansetron 2021-0 Yes [id number] 4mg Take 1 [facility] (ZOFRAN 6-23 tablet by ity of ODT) 4 mg 00:00: mouth [place] disintegrat 00 every 8 Medic al ing tablet (eight) Branch hours as needed for Nausea and Vomiting (N/V). ondansetron 2021-0 Yes [id number] 4mg Take 1 [facility] (ZOFRAN 6-23 tablet by ity of ODT) 4 mg 00:00: mouth [place] disintegrat 00 every 8 Medic al ing tablet (eight) Branch hours as needed for Nausea and Vomiting (N/V). ondansetron 2021-0 Yes [id number] 4mg Take 1 [facility] (ZOFRAN 6-23 tablet by ity of ODT) 4 mg 00:00: mouth [place] disintegrat 00 every 8 Medic al ing tablet (eight) Branch hours as needed for Nausea and Vomiting (N/V). ondansetron 2020-0 Yes [id number] 4mg Take 1 [facility] (ZOFRAN 6-23 tablet by ity of ODT) 4 mg 00:00: mouth [place] disintegrat 00 every 8 Medic al ing tablet (eight) Branch hours as needed for Nausea and Vomiting (N/V). ondansetron 2020-0 Yes [id number] 4mg Take 1 [facility] (ZOFRAN 6-23 tablet by ity of ODT) 4 mg 00:00: mouth [place] disintegrat 00 every 8 Medic al ing tablet (eight) Branch hours as needed for Nausea and Vomiting (N/V). ondansetron 2020-0 Yes [id number] 4mg Take 1 [facility] (ZOFRAN 6-23 tablet by ity of ODT) 4 mg 00:00: mouth [place] disintegrat 00 every 8 Medic al ing tablet (eight) Branch hours as needed for Nausea and Vomiting (N/V). ondansetron 2020-0 Yes [id number] 4mg Take 1 [facility] (ZOFRAN 6-23 tablet by ity of ODT) 4 mg 00:00: mouth [place] disintegrat 00 every 8 Medic al ing tablet (eight) Branch hours as needed for Nausea and Vomiting (N/V). ondansetron 2020-0 2- No [id number] 4mg Take 1 [facility] (ZOFRAN 6-23 12-15 tablet by ity of ODT) 4 mg 00:00: 00:00 mouth [place] disintegrat 00 :00 every 8 Medic al ing tablet (eight) Branch hours as needed for Nausea and Vomiting (N/V). acetaminoph 1-0 Yes [id number] 650mg Take 2 [facility] en 325 mg 6-20 tablets by ity of tablet 00:00: mouth [place] 00 every 6 Medical (six) Branch hours as needed for Pain (scale 1-3) or Temp > 38.5 C. acetaminoph 2021-0 Yes [id number] 650mg Take 2 [facility] en 325 mg 6-20 tablets by ity of tablet 00:00: mouth [place] 00 every 6 Medical (six) Branch hours as needed for Pain (scale 1-3) or Temp > 38.5 C. acetaminoph 2021-0 Yes [id number] 650mg Take 2 [facility] en 325 mg 6-20 tablets by ity of tablet 00:00: mouth [place] 00 every 6 Medical (six) Branch hours as needed for Pain (scale 1-3) or Temp > 38.5 C. acetaminoph 2021-0 Yes [id number] 650mg Take 2 [facility] en 325 mg 6-20 tablets by ity of tablet 00:00: mouth [place] 00 every 6 Medical (six) Branch hours as needed for Pain (scale 1-3) or Temp > 38.5 C. acetaminoph 2021-0 Yes [id number] 650mg Take 2 [facility] en 325 mg 6-20 tablets by ity of tablet 00:00: mouth [place] 00 every 6 Medical (six) Branch hours as needed for Pain (scale 1-3) or Temp > 38.5 C. acetaminoph 2021-0 Yes [id number] 650mg Take 2 [facility] en 325 mg 6-20 tablets by ity of tablet 00:00: mouth [place] 00 every 6 Medical (six) Branch hours as needed for Pain (scale 1-3) or Temp > 38.5 C. acetaminoph 2021-0 Yes [id number] 650mg Take 2 [facility] en 325 mg 6-20 tablets by ity of tablet 00:00: mouth [place] 00 every 6 Medical (six) Branch hours as needed for Pain (scale 1-3) or Temp > 38.5 C. acetaminoph 2021-0 Yes [id number] 650mg Take 2 [facility] en 325 mg 6-20 tablets by ity of tablet 00:00: mouth [place] 00 every 6 Medical (six) Branch hours as needed for Pain (scale 1-3) or Temp > 38.5 C. acetaminoph 2021-0 Yes [id number] 650mg Take 2 [facility] en 325 mg 6-20 tablets by ity of tablet 00:00: mouth [place] 00 every 6 Medical (six) Branch hours as needed for Pain (scale 1-3) or Temp > 38.5 C. acetaminoph 2021-0 Yes [id number] 650mg Take 2 [facility] en 325 mg 6-20 tablets by ity of tablet 00:00: mouth [place] 00 every 6 Medical (six) Branch hours as needed for Pain (scale 1-3) or Temp > 38.5 C. acetaminoph 2021-0 Yes [id number] 650mg Take 2 [facility] en 325 mg 6-20 tablets by ity of tablet 00:00: mouth [place] 00 every 6 Medical (six) Branch hours as needed for Pain (scale 1-3) or Temp > 38.5 C. acetaminoph 2021-0 Yes [id number] 650mg Take 2 [facility] en 325 mg 6-20 tablets by ity of tablet 00:00: mouth [place] 00 every 6 Medical (six) Branch hours as needed for Pain (scale 1-3) or Temp > 38.5 C. acetaminoph 2021-0 Yes [id number] 650mg Take 2 [facility] en 325 mg 6-20 tablets by ity of tablet 00:00: mouth [place] 00 every 6 Medical (six) Branch hours as needed for Pain (scale 1-3) or Temp > 38.5 C. acetaminoph 2021-0 Yes [id number] 650mg Take 2 [facility] en 325 mg 6-20 tablets by ity of tablet 00:00: mouth [place] 00 every 6 Medical (six) Branch hours as needed for Pain (scale 1-3) or Temp > 38.5 C. acetaminoph 2021-0 Yes [id number] 650mg Take 2 [facility] en 325 mg 6-20 tablets by ity of tablet 00:00: mouth [place] 00 every 6 Medical (six) Branch hours as needed for Pain (scale 1-3) or Temp > 38.5 C. acetaminoph 2021-0 Yes [id number] 650mg Take 2 [facility] en 325 mg 6-20 tablets by ity of tablet 00:00: mouth [place] 00 every 6 Medical (six) Branch hours as needed for Pain (scale 1-3) or Temp > 38.5 C. acetaminoph 2021-0 Yes [id number] 650mg Take 2 [facility] en 325 mg 6-20 tablets by ity of tablet 00:00: mouth [place] 00 every 6 Medical (six) Branch hours as needed for Pain (scale 1-3) or Temp > 38.5 C. acetaminoph 2021-0 Yes [id number] 650mg Take 2 [facility] en 325 mg 6-20 tablets by ity of tablet 00:00: mouth [place] 00 every 6 Medical (six) Branch hours as needed for Pain (scale 1-3) or Temp > 38.5 C. acetaminoph 2021-0 Yes [id number] 650mg Take 2 [facility] en 325 mg 6-20 tablets by ity of tablet 00:00: mouth [place] 00 every 6 Medical (six) Branch hours as needed for Pain (scale 1-3) or Temp > 38.5 C. acetaminoph 2021-0 Yes [id number] 650mg Take 2 [facility] en 325 mg 6-20 tablets by ity of tablet 00:00: mouth [place] 00 every 6 Medical (six) Branch hours as needed for Pain (scale 1-3) or Temp > 38.5 C. acetaminoph 2021-0 Yes [id number] 650mg Take 2 Univers en 325 mg 6-20 tablets by ity of tablet 00:00: mouth [place] 00 every 6 Medical (six) Branch hours as needed for Pain (scale 1-3) or Temp > 38.5 C. acetaminoph 2021-0 Yes [id number] 650mg Take 2 Univers en 325 mg 6-20 tablets by ity of tablet 00:00: mouth [place] 00 every 6 Medical (six) Branch hours as needed for Pain (scale 1-3) or Temp > 38.5 C. acetaminoph 202-0 Yes [id number] 650mg Take 2 Univers en 325 mg 6-20 tablets by ity of tablet 00:00: mouth [place] 00 every 6 Medical (six) Branch hours as needed for Pain (scale 1-3) or Temp > 38.5 C. acetaminoph 2021-0 Yes [id number] 650mg Take 2 Univers en 325 mg 6-20 tablets by ity of tablet 00:00: mouth [place] 00 every 6 Medical (six) Branch hours as needed for Pain (scale 1-3) or Temp > 38.5 C. acetaminoph 2021-0 Yes [id number] 650mg Take 2 Univers en 325 mg 6-20 tablets by ity of tablet 00:00: mouth [place] 00 every 6 Medical (six) Branch hours as needed for Pain (scale 1-3) or Temp > 38.5 C. acetaminoph 2021-0 Yes [id number] 650mg Take 2 Univers en 325 mg 6-20 tablets by ity of tablet 00:00: mouth [place] 00 every 6 Medical (six) Branch hours as needed for Pain (scale 1-3) or Temp > 38.5 C. acetaminoph 2021-0 Yes [id number] 650mg Take 2 Univers en 325 mg 6-20 tablets by ity of tablet 00:00: mouth [place] 00 every 6 Medical (six) Branch hours as needed for Pain (scale 1-3) or Temp > 38.5 C. acetaminoph Yes [id number] 650mg Take 2 Univers en 325 mg 6-20 tablets by ity of tablet 00:00: mouth [place] 00 every 6 Medical (six) Branch hours as needed for Pain (scale 1-3) or Temp > 38.5 C. acetaminoph Yes [id number] 650mg Take 2 Univers en 325 mg 6-20 tablets by ity of tablet 00:00: mouth [place] 00 every 6 Medical (six) Branch hours as needed for Pain (scale 1-3) or Temp > 38.5 C. acetaminoph Yes [id number] 650mg Take 2 Univers en 325 mg 6-20 tablets by ity of tablet 00:00: mouth [place] 00 every 6 Medical (six) Branch hours as needed for Pain (scale 1-3) or Temp > 38.5 C. acetaminoph Yes [id number] 650mg Take 2 Univers en 325 mg 6-20 tablets by ity of tablet 00:00: mouth [place] 00 every 6 Medical (six) Branch hours as needed for Pain (scale 1-3) or Temp > 38.5 C. acetaminoph Yes [id number] 650mg Take 2 Univers en 325 mg 6-20 tablets by ity of tablet 00:00: mouth [place] 00 every 6 Medical (six) Branch hours as needed for Pain (scale 1-3) or Temp > 38.5 C. acetaminoph Yes [id number] 650mg Take 2 Univers en 325 mg 6-20 tablets by ity of tablet 00:00: mouth [place] 00 every 6 Medical (six) Branch hours as needed for Pain (scale 1-3) or Temp > 38.5 C. acetaminoph 2020 2021- No [id number] 650mg Take 2 Univers en 325 mg 6-20 12-15 tablets by ity of tablet 00:00: 00:00 mouth [place] 00 :00 every 6 Medical (six) Branch hours as needed for Pain (scale 1-3) or Temp > 38.5 C. Immunizations Ordered Filled Immunization Date Status Comments [facility] e Immunization Name Name Influenza Virus 2022-02-22 Completed Universit y of Vaccine Quad ID 00:00:00 [facility] 18-64 YRS Branch Influenza Virus 2022-02-22 Completed Universit y of Vaccine Quad ID 00:00:00 [facility] 18-64 YRS Branch Influenza Virus 2022-02-22 Completed Universit y of Vaccine Quad ID 00:00:00 [facility] [place] [facility] 18-64 YRS Branch Influenza Virus 2022-02-22 Completed Universit y of Vaccine Quad ID 00:00:00 [facility] [place] [facility] 18-64 YRS Branch Influenza Virus 2022-02-22 Completed Universit y of Vaccine Quad ID 00:00:00 [facility] [place] [facility] 18-64 YRS Branch Influenza Virus 2022-02-22 Completed Universit y of Vaccine Quad ID 00:00:00 [facility] 18-64 YRS Branch Influenza Virus 2022-02-22 Completed Universit y of Vaccine Quad ID 00:00:00 [facility] 18-64 YRS Branch Influenza Virus 2022-02-22 Completed Universit y of Vaccine Quad ID 00:00:00 [facility] 18-64 YRS Branch Influenza Virus 2022-02-22 Completed Universit y of Vaccine Quad ID 00:00:00 [facility] [place] ica 18-64 YRS Branch Influenza Virus 2022-02-22 Completed Universit y of Vaccine Quad ID 00:00:00 [facility] 18-64 YRS Branch Influenza Virus 2022-02-22 Completed Universit y of Vaccine Quad ID 00:00:00 [facility] [place] ica 18-64 YRS Branch Influenza Virus 2022-02-22 Completed Universit y of Vaccine Quad ID 00:00:00 [facility] 18-64 YRS Branch Influenza Virus 2021-08-20 Completed Universit y of Vaccine Quad IM, 00:00:00 [place] Me dical Preserv and ABX Branch Free 6 MO-64 YRS Influenza Virus 2021-08-20 Completed Universit y of Vaccine Quad IM, 00:00:00 [place] Me dical Preserv and ABX Branch Free 6 MO-64 YRS Influenza Virus 2021-08-20 Completed Universit y of Vaccine Quad IM, 00:00:00 [place] Me dical Preserv and ABX Branch Free [...] Completed Unive rsity of MODERNA 0.25ML 00:00:00 [place] Medi michael BOOSTER VACCINE Branch Vital Signs Vital Name Observation Time Observation Value Comments Source Systolic blood 2022-04-21 23:35:00 113 mm[Hg] Univer sity of pressure [facility] Diastolic blood 2022-04-21 23:35:00 73 mm[Hg] Unive rsity of pressure [facility] Heart rate 2022-04-21 23:35:00 93 /min Universi ty [facility] Body temperature 2022-04-21 23:35:00 37.61 Jenni Univ ersity of [facility] Respiratory rate 2022-04-21 23:35:00 18 /min Univ ersity of [facility] Body height 2022-04-21 23:35:00 154.9 cm [facility] Body weight 2022-04-21 23:35:00 52.617 kg [facility] BMI 2022-04-21 23:35:00 21.92 kg/m2 [facility] Oxygen saturation in 2022-04-21 23:35:00 98 /min University Arterial blood by [facility] Pulse oximetry Branch Systolic blood 2022-04-21 13:32:00 111 mm[Hg] Univer sity of pressure [facility] Diastolic blood 2022-04-21 13:32:00 55 mm[Hg] Unive rsity of pressure [facility] Heart rate 2022-04-21 13:32:00 73 /min Universi ty [facility] Body temperature 2022-04-21 13:32:00 36.72 Jenni Univ ersity of [place] [facility] Respiratory rate 2022-04-21 13:32:00 16 /min Univ ersity of [place] [facility] Oxygen saturation in 2022-04-21 13:32:00 100 /min University of Arterial blood by [facility] michael Pulse oximetry Branch Body height 2022-04-18 14:40:00 154.9 cm Universi ty of [place] [facility] Body weight 2022-04-18 14:40:00 52.164 kg Universi ty of [place] [facility] BMI 2022-04-18 14:40:00 21.73 kg/m2 Universi ty of [place] [facility] Systolic blood 2022-03-21 21:18:00 104 mm[Hg] Univer sity of pressure [place] [facility] Diastolic blood 2022-03-21 21:18:00 54 mm[Hg] Unive rsity of pressure [place] [facility] Heart rate 2022-03-21 21:18:00 71 /min Universi ty of [place] [facility] Body temperature 2022-03-21 21:18:00 36.72 Jenni Univ ersity of [place] [facility] Respiratory rate 2022-03-21 21:18:00 14 /min Univ ersity of [place] [facility] Oxygen saturation in 2022-03-21 21:18:00 99 /min University of Arterial blood by [facility] michael Pulse oximetry Branch Body weight 2022-03-21 03:13:00 57 kg Universi ty of [place] [facility] BMI 2022-03-21 03:13:00 22.26 kg/m2 [...] 99 /min University of Arterial blood by [facility] michael Pulse oximetry Branch Systolic blood 2022-02-09 16:17:00 127 mm[Hg] Univer sity of pressure [place] [facility] Diastolic blood 2022-02-09 16:17:00 71 mm[Hg] Unive rsity of pressure [place] [facility] Heart rate 2022-02-09 16:17:00 84 /min Universi ty of [place] [facility] Respiratory rate 2022-02-09 16:17:00 18 /min Univ ersity of [place] [facility] Body weight 2022-02-09 16:17:00 52.617 kg Universi ty of [place] [facility] BMI 2022-02-09 16:17:00 21.92 kg/m2 Universi ty of [place] [facility] Oxygen saturation in 2022-02-09 16:17:00 99 /min University of Arterial blood by [place] [employer] michael Pulse oximetry Branch Systolic blood 2022-01-31 21:12:00 110 mm[Hg] Univer sity of pressure [place] [facility] Diastolic blood 2022-01-31 21:12:00 59 mm[Hg] Unive rsity of pressure [place] [facility] Heart rate 2022-01-31 21:12:00 79 /min Universi ty of [place] [facility] Body temperature 2022-01-31 21:12:00 36.33 Jenni Univ ersity of [place] [facility] Respiratory rate 2022-01-31 21:12:00 16 /min Univ ersity of [place] [facility] Oxygen saturation in 2022-01-31 21:12:00 97 /min University of Arterial blood by [place] [employer] michael Pulse oximetry Branch Body height 2022-01-31 02:57:00 154.9 cm Universi ty of [place] [facility] Body weight 2022-01-31 02:57:00 54.432 kg Universi ty of [place] [facility] BMI 2022-01-31 02:57:00 22.67 kg/m2 Universi ty of [place] [facility] Systolic blood 2022-01-28 18:12:00 120 mm[Hg] Univer sity of pressure [place] [facility] Diastolic blood 2022-01-28 18:12:00 77 mm[Hg] Unive rsity of pressure [place] [facility] Heart rate 2022-01-28 18:12:00 82 /min Universi ty of [place] [facility] Respiratory rate 2022-01-28 18:12:00 17 /min Univ ersity of [place] [facility] Oxygen saturation in 2022-01-28 18:12:00 99 /min University of Arterial blood by [facility] Pulse oximetry Branch Body temperature 2022-01-28 18:07:00 36.61 Jenni Univ ersity of [place] [facility] Body height 2022-01-28 18:07:00 154.9 cm Universi ty of [place] [facility] Body weight 2022-01-28 18:07:00 54.568 kg Universi ty of [place] [facility] BMI 2022-01-28 18:07:00 22.73 kg/m2 Universi ty of [place] [facility] Systolic blood 2022-01-27 19:39:00 120 mm[Hg] Univer sity of pressure [place] [facility] Diastolic blood 2022-01-27 19:39:00 75 mm[Hg] Unive rsity of pressure [place] [facility] Heart rate 2022-01-27 19:39:00 78 /min Universi ty of [place] [facility] Body temperature 2022-01-27 19:39:00 36.78 Jenni Univ ersity of [place] [facility] Respiratory rate 2022-01-27 19:39:00 18 /min Univ ersity of [place] [facility] Body height 2022-01-27 19:39:00 154.9 cm Universi ty of [place] [facility] Body weight 2022-01-27 19:39:00 54.795 kg Universi ty of [place] [facility] BMI 2022-01-27 19:39:00 22.82 kg/m2 Universi ty of [place] [facility] Oxygen saturation in 2022-01-27 19:39:00 98 /min University of Arterial blood by [facility] Pulse oximetry Branch Systolic blood 2021-12-24 20:21:00 107 mm[Hg] Univer sity of pressure [place] [facility] Diastolic blood 2021-12-24 20:21:00 66 mm[Hg] Unive rsity of pressure [place] [facility] Heart rate 2021-12-24 20:21:00 73 /min Universi ty of [place] [facility] Body temperature 2021-12-24 20:21:00 36.83 Jenni Univ ersity of [place] [facility] Body height 2021-12-24 20:21:00 154.9 cm Universi ty of [place] [facility] Body weight 2021-12-24 20:21:00 54.522 kg Universi ty of [place] [facility] BMI 2021-12-24 20:21:00 22.71 kg/m2 [facility] Medical Branch Oxygen saturation in 2021-12-24 20:21:00 100 /min [facility] blood by [facility] Pulse oximetry Branch Procedures Procedure Date / Time Performing Source Performed Clinician POCT MOLECULAR FLU 2022-04-21 Unknown, Attending [facility] 23:44:00 Medical Branch POCT MOLECULAR STREP 2022-04-21 Unknown, Attending [facility] 23:42:00 Medical Branch CONSENT/REFUSAL FOR DIAGNOSIS 2022-04-05 Doctor Unassigned, [facility] AND TREATMENT 22:56:01 [facility] [place] ASSIGNMENT OF BENEFITS 2022-04-05 Doctor Unassigned, [facility] 22:55:42 [place] [facility]YSIS [facility] 11:[facility]00 [facility] BASIC METABOLIC PANEL (NA, K, 2022-03-21 [facility], CO2, GLUCOSE, BUN, 10:40:00 [facility] ran CREATININE, CA) CBC WITH DIFF 2022-03-21 [facility] 10:40:00 [facility] Branch ELECTROENCEPHALOGRAM 2022-03-21 [facility] 00:00:00 [facility] Branch EKG-12 LEAD 2022-03-20 Jennifer Dennison [facility] 23:14:14 Medical Branch PHOSPHORUS 2022-03-20 [facility] 23:07:00 [facility] Branch MAGNESIUM 2022-03-20 [facility] 23:07:00 [facility] TEST, SERUM 2022-03-20 Jennifer Dennison [facility] 23:07:00 [facility] COMP. METABOLIC PANEL ([id number]) 2022-03-20 Jennifer Dennison [facility] 23:07:00 Medical Branch CBC WITH DIFF 2022-03-[address] [facility] 23:07:00 [facility] Branch KEPPRA (LEVETIRACETAM) 2022-03-20 Jennifer Dennison [facility] 23:07:00 Medical Branch HOSPITAL ADMISSION 2022-03-20 Doctor Unassigned, [facility] 06:01:00 [place] [facility] ELECTROENCEPHALOGRAM 2022-01-31 Goodwin Monet [facility] 00:00:00 [facility] POCT TEST 2022-01-30 Monse Chavez [facility] 23:11:00 [facility] URINALYSIS 2022-01-30 Monse Chavez [facility] 23:08:00 [facility] URINE DRUG (IMMUNOASSAY) - 2022-01-30 [facility] COMPREHENSIVE DRUG SCREEN W/O 23:08:00 Ok dical [place] REFLEX COVID-19 (ID NOW RAPID 2022-01-30 [facility] TESTING) 22:13:00 [facility] LAB ONLY COVID INTERPRETATION 2022-01-30 [facility] 22:13:00 [facility] PHOSPHORUS 2022-01-30 [facility] 21:49:00 [facility] MAGNESIUM 2022-01-30 [facility] 21:49:00 [facility] TEST, SERUM 2022-01-30 [facility] 21:49:00 [facility] COMP. METABOLIC PANEL ([id number]) 2022-01-30 Monse Chavez [facility] 21:49:00 [facility] ETHANOL 2022-01-30 [facility] 21:49:00 [facility] CBC WITH DIFF 2022-01-30 Monse Chavez [facility] 21:49:00 [facility] KEPPRA (LEVETIRACETAM) 2022-01-30 [facility] 21:49:00 [facility] LACTIC ACID WHOLE BLOOD 2022-01-30 Monse Chavez [facility] 21:48:00 [facility] POCT GLUCOSE (AUTOMATED) 2022-01-30 [facility] 21:46:00 [facility] CONSENT/REFUSAL FOR DIAGNOSIS 2022-01-30 Doctor Unassigned, [facility] AND TREATMENT 21:37:27 [place] [facility] HOSPITAL ADMISSION 2022-01-30 Doctor Unassigned, [facility] 05:01:00 [place] [facility] Encounters Start End Encounter Admission Attending Care Care Encounter Source Date/Time Date/Time Type Type Clinicians Facility Department ID 2021-03-08 Emergency [facility] [id number] Univers 03:04:[address] [facility] 2022-05-20 2022-05-20 Outpatient R FIDEL [facility] [id number] Univers 15:40:00 15:40:[address] [facility] 2022-04-28 2022-04-28 Outpatient R JEANNINE SHELL [facility] [id number] Univers 15:00:00 15:00:[address] [facility] 2022-04-22 2022-04-22 Transition MILTON Lindsay 1.2.840.114 [id number] Univers 00:00:00 00:00:00 of Care Kathryn GUTIERREZ [id number] i [id number] [id number] [address] 2022-04-22 2022-04-[address] [facility] [id number] Univers 00:00:00 00:00:00 Ruiqing L SPECIALTY [id number] ity [id number] [id number] Ok xenialilly HOANG 092 [facility] 2022-04-21 2022-04-21 Urgent AriesMaggi sandoval [facility] 1.2.840.114 [id number] Univers 17:40:00 18:00:00 Care Unknown, Attending HEALTH 350.1.13.10 ity of [place] 4.2.7.2.686 Christaino as DICK?BLEA [id number] Ok xenialilly CHONG [address] [place] MEDICAL OFFICE BUILDING 2022-04-21 2022-04-21 Outpatient R CHAU [facility] [id number] Univers 17:40:00 17:40:[address] [facility] 2022-04-18 2022-04-21 Inpatient R JEY [facility] [place] [id number] Univers 08:05:00 12:15:[address] [facility] 2022-04-18 2022-04-21 [facility] Jeannine Shell 1.2.840.114 [id number] Univers 08:05:00 12:15:00 Encounter Felicitas Khanna 350.1.13.10 ity of [facility] 4.2.7.2.686 Christiano as [id number] [facility] [address] [place] 2022-04-13 2022-04-13 Telephone Jeannine Shell [facility] 1.2.840.114 [id number] Univers 00:00:00 00:00:00 S PRIMARY [id number] it y [id number] [id number] [facility] 2022-04-13 2022-04-13 Tele[address] Jeannine Shell [facility] 1.2.840.114 [id number] Univers 00:00:00 00:00:00 S PRIMARY 350.1.13.10 it y [id number] [id number] [place] dic[address] 2022-04-06 2022-04-06 Telephone Jeannine Shell [facility] 1.2.840.114 [id number] Univers 00:00:00 00:00:00 S PRIMARY [id number] it y [id number] [id number] [address] 2022-04-05 2022-04-05 Outpatient R JEANNINE SHELL [facility] [id number] Univers 16:57:56 23:59:00 ity of [facility] 2022-04-05 2022-04-05 [facility] Jeannine Shell [facility] 1.2.840.114 [id number] Univers 16:57:56 23:59:00 Encounter S LAURA 350.1.13.10 ity of [place] 4.2.[place].2.[place] [id number] [facility] 804 Branch 2022-03-30 2022-03-30 [facility] 1.2.840.114 [id number] Univers 00:00:00 00:00:00 Axel SANCHEZ 350.1.13.10 i ty of [place] 4.2.7.2.[place] [id number] Me dical NAL 044 [facility] 2022-03-20 2022-03-21 Outpatient X [facility] [place] [id number] Univers 16:50:00 17:54:00 [facility] 2022-03-20 2022-03-21 Emergency Jennifer Dennison 1.2.840 .114 [id number] Univers 16:50:00 17:54:00 Sarthak Stern [facility].13.10 [facility] 4.2.7.2.686 [place] [id number] [facility] 0[address] [place] 2022-03-17 2022-03-17 Outpatient R JEANNINE SHELL [facility] [id number] Univers 14:00:00 14:47:08 [facility] [place] [facility] 2022-03-17 2022-03-17 Office Jeannine Shell [facility] 1.2.840.114 [id number] Univers 14:00:00 14:47:08 Visit S PRIMARY 350.1.13.10 it y [place] [id number] Ok dicsd [address] [place] [address] 2022-03-14 2022-03-14 Outpatient R FIDEL [facility] [id number] Univers 14:00:00 15:23:47 AXEL [facility] 2022-03-14 2022-03-14 Insulation Applicator 2, Adc Lab [facility] 1.2.840.114 [id number] Univers 14:00:00 14:15:00 Visit Axel Parra [facility].1.13.10 [facility] [place] [id number] Ok dical NAL 353 [facility] 2022-03-10 2022-03-[address] [facility] 1.2.840.114 [id number] Univers 00:00:00 00:00:00 Monet PRIMARY 350.1.13.10 i ty of [place] 4[place]2.[place] [id number] Ok dical [address] [place] 2022-03-08 2022-03-[address] [facility] 1.2.840.114 [id number] Univers 00:00:00 00:00:00 Axel SANCHEZ 350.1.13.10 i ty of [place] 4.2.[place].2.[place] [id number] [facility] 044 [facility] 2022-03-03 2022-03-03 Telephone Jagdish SHAUNA [id number] Univers 00:00:00 00:00:00 Mike RAI 350.1.13.10 i ty of [facility] 4.2.7.2.686 Christiano as [id number] [address] 2022-02-22 2022-02-[address] [facility] 1.2.840.114 [id number] Univers 00:00:00 00:00:00 [facility] 350.1.13.10 it y of [place] [id number] [address] OFFICE [facility] 2022-02-15 2022-02-15 Insulation Applicator 2, Adc Lab [facility] 1.2.840.114 [id number] Univers 08:45:00 08:45:19 Visit Axel Parra 350.1.13.10 ity [facility] 4.2.[place].2.[place] [id number] [facility] 353 [facility] 2022-02-15 2022-02-15 Outpatient R FIDEL [facility] [id number] Univers 08:45:00 08:45:[address] [facility] 2022-02-14 2022-02-[address] [facility] 1.2.840.114 [id number] Univers 00:00:00 00:00:00 [facility] 350.1.13.10 it y of [place] [id number] [address] OFFICE BUILDING 2022-02-11 2022-02-12 Emergency X BILLY HEARD [facility] ERT 1 [id number] Univers 17:11:00 00:31:[address] [facility] 2022-02-09 2022-02-09 Outpatient R BENITOMARLON [facility] [id number] Univers 11:20:00 12:43:[address] [facility] 2022-02-09 2022-02-[address] [facility] 1.2.840.114 [id number] Univers 11:20:00 12:43:12 Visit Axel SANCHEZ 350.1.13.10 i ty of [place] 4.2.[place].2.[place] [id number] Ok dical NAL 044 [facility] 2022-02-03 2022-02-03 [facility] [id number] Univers 00:00:00 00:00:00 Cecilia LOPEZ 350.1.13.10 i ty of [facility] 4.2.7.2.[place] [id number] Ok dical [address] [place] 2022-01-30 2022-01-31 Outpatient X SY TIMMONS [facility] [place] [id number] Univers 16:38:00 17:47:00 ity of [facility] 2022-01-30 2022-01-31 Emergency [facility] 1.2.840. 114 [id number] Univers 16:38:00 17:47:00 Sy Timmons 350.1.13.10 ity of [facility] 4.2.7.2.686 Christiano as [id number] [facility] 0[address] [place] 2022-01-28 2022-01-28 Outpatient R SHINE [facility] [id number] Univers 13:00:00 13:46:25 ROSY bahena o f [facility] 2022-01-28 2022-01-28 Office [facility] 1.2.840.114 [id number] Univers 13:00:00 13:46:25 Visit Rosy SANCHEZ 350.1.13.10 ity of [place] 4.2[place] [id number] Ok dical NAL 059 [facility] 2022-01-27 2022-01-27 Office Jeannine Shell 1.2.840.114 [id number] Univers 14:40:00 15:20:00 Visit S HEALTH 350.1.13.10 i ty of [facility] 4.2.7.2.[place] [id number] [address] 2022-01-27 2022-01-27 Outpatient R JEANNINE SHELL [facility] [id number] Univers 14:40:00 14:40:[address] [facility] 2022-01-03 2022-01-03 Telephone [facility] [id number] Univers 00:00:00 00:00:00 Ruiqing L SPECIALTY 350.1.13.10 ity [place] AT [id number] [address] 2021-12-24 2021-12-24 [facility] [id number] Univers 15:30:00 16:02:43 RUIQING [facility] and [facility] 2021-12-24 2021-12-24 Office [facility] 1.2.840.114 [id number] Univers 15:30:00 16:02:43 Visit Ruiqing L SPECIALTY 350.1.13.10 it[place] of [place] AT [phone] [address] 2021-12-24 2021-12-24 Telephone [facility] 1.2.361.145 [id number] Univers 00:00:00 00:00:00 Ruiqing L SPECIALTY 350.1.13.10 ity of CARE 4.2.7.2.686 [facility] AT [phone] [address] 2021-12-20 2021-12-20 [facility] [id number] Univers 11:12:00 13:24:[address] [facility] 2021-12-20 2021-12-20 Emergency [facility] 1.2.840.114 [id number] Univers 11:12:00 13:24:00 Monse SANCHEZ 350.1.13.10 ity of [place] 4.2.7.2.686 [place] [facility] [id number] [facility] [address] 2021-12-15 2021-12-15 Emergency X , [facility] ERT [id number] Univers 13:47:00 15:39:00 JUSTIN ity of [facility] 2021-12-15 2021-12-15 Emergency [facility] 1.2.708.730 [id number] Univers 13:47:00 15:39:00 Justin SANCHEZ 350.1.13.10 i ty of [place] 4.2.7.2.686 [place] J[place]IN [id number] [facility] [address] 2021-12-06 2021-12-06 Outpatient [facility] [id number] Univers 15:00:00 17:10:27 BÁRBARA itena [facility] 2021-12-06 2021-12-06 Insulation Applicator Pcp-Lab [facility] 1.2.840.114 [id number] Univers 15:00:00 15:15:00 Visit Aniyah Bárbara Bajwa PRIMARY 350.1.13.10 it[place] of [place].2.[place] [id number] Me dical [address] 2021-12-06 2021-12-06 Outpatient Agustin GILLIS [facility] [id number] Univers 10:30:00 12:03:40 [address] bahena [facility] 2021-12-06 2021-12-06 Office Perla Knight [facility] 1.2.840 .114 [id number] Univers 10:30:00 12:03:40 Visit Bárbara Gillis PRIMARY 350.1.13.10 it[place] of [place] 4.2.7.2.686 [place] [id number] Ok dical [address] 2021-12-06 2021-12-06 Orders Doctor VILLATORO 1.2.840.114 [id number] Univers 00:00:00 00:00:00 Only Unassigned, FREDI 350.1.13.10 ity of [place] [facility] 4.2.7.2.686 Christiano as [phone] [facility] [address] 2021-10-13 2021-10-13 Office [facility] 1.2.840.114 [id number] Univers 11:15:00 11:27:34 Visit Tristen SONI 350.1.13.10 it y of CLEAR 4.2.7.2.686 Alex garibay [place] [phone] [facility] [address] OFFICE BUILDING 2021-10-13 2021-10-13 Outpatient R GUI [facility] [id number] Univers 11:15:00 11:15:[address] [facility] 2021-10-13 2021-10-13 Outpatient Agustin MAC [facility] [id number] Univers 09:00:00 09:28:[address] [facility] 2021-10-13 2021-10-13 Office [facility] 1.2.840.114 [id number] Univers 09:00:00 09:28:03 Visit Kavitha Elam WOMEN'S 350.1.13.10 it y of [place] [phone] [facility] [place] [address] FRIENDSWO OD 2021-10-13 2021-10-13 Outpatient Agustin MAC [facility] [id number] Univers 09:00:00 09:28:[address] [facility] 2021-10-13 2021-10-13 Orders Doctor VILLATORO 1.2.840.114 [id number] Univers 00:00:00 00:00:00 Only Unassigned, FREDI 350.1.13.10 ity of [place] [facility] 4.2.7.2.686 [place] as [id number] [place] [address] [address] 2021-09-15 2021-09-15 Outpatient Agustin NICHOLE [facility] [id number] Univers 09:23:28 23:59:[address] [facility] 2021-09-15 2021-09-15 Outpatient Agustin NICHOLE [facility] [id number] Univers 09:23:28 23:59:[address] [facility] 2021-09-15 2021-09-15 [facility] 1.2.840.114 [id number] Univers 09:23:28 23:59:00 Encounter Thalia SANCHEZ 350.1.13.10 ity of [facility] 4.2.7.2.686 [place] [facility] [id number] [facility] [address] [place] 2021-09-15 2021-09-15 Outpatient [facility] [id number] Univers 09:22:55 09:22:[address] [facility] 2021-09-15 2021-09-15 [facility] 1.2.840.114 [id number] Univers 09:22:55 09:22:55 Encounter Thalia SANCHEZ 350.1.13.10 ity of [place] 4.2.7.2.686 [facility] [id number] [facility] [address] [place] 2021-09-10 2021-09-10 Outpatient Agustin [facility] [id number] Univers 11:30:00 12:02:[address] [facility] 2021-09-10 2021-09-10 Office [facility] 1.2.840.114 [id number] Univers 11:30:00 12:02:08 Visit Felicitas L SPECIALTY 350.1.13.10 ity of CARE 4.2.7.2.686 [facility] AT [phone] Ok xenialilly [address] 2021-09-10 2021-09-10 Outpatient Agustin [facility] [id number] Univers 11:30:00 11:30:[address] [facility] 2021-09-10 2021-09-10 Outpatient Agustin [facility] [id number] Univers 08:30:00 09:08:[address] [facility] 2021-09-10 2021-09-10 Office Dionisio [facility] 1.2.840.114 [id number] Univers 08:30:00 09:08:59 Visit Thalia Maria [facility] 350.1.13.10 ity of CLINICS 4.2.7.2.686 [place] [id number] [facility] [address] 2021-08-31 2021-08-31 Office Luis Eduardo Myers [facility] 1.2.840.1 [id number] Univers 16:00:00 16:53:33 Visit Lilo Mendieta PRIMARY 350.1.13.10 ity of [facility] 4.2.7.2.686 [place] [id number] Ok dical [address] 2021-08-31 2021-08-31 Outpatient R ROSAMAMTANATALYA [facility] [id number] Univers 16:00:00 16:53:[address] [facility] 2021-08-31 2021-08-31 Outpatient R GAYATRI [facility] [id number] Univers 16:00:00 16:00:00 LILO [facility] 2021-08-23 2021-08-23 Transition LY WagnerMarco 1.2.840.114 [id number] Univers 00:00:00 00:00:00 of Care Carleen GUTIERREZ 350.1.13.10 i ty of [place] 4.2.7.2.686 [place] [id number] [facility] [address] 2021-08-16 2021-08-20 Hospital Jeannine Shell 1.2.840.114 [id number] Univers 08:26:00 11:30:00 Encounter RobbVinay louistianna RAI 350.1.13.10 ity [facility] 4.2.7.2.686 [place] as [id number] [facility] [address] 2021-08-16 2021-08-16 Outpatient R JEANNINE SHELL [facility] [id number] Univers 08:30:00 08:30:00 ity of [facility] 2021-08-16 2021-08-16 Outpatient R JEANNINE SHELL [facility] [id number] Univers 08:30:00 08:30:[address] [facility] 2021-08-16 2021-08-16 Outpatient R JEANNINE SHELL [facility] [id number] Univers 08:30:00 08:30:[address] [facility] 2021-08-16 2021-08-16 Outpatient R JEANNINE SHELL [facility] [place] [id number] Univers 08:30:00 08:30:00 ity of [facility] 2021-08-13 2021-08-13 Laboratory Only, Adc Test [facility] 1.2.840. 114 [id number] Univers 08:00:00 08:15:00 Only Jeannine Shell Maryjo SANCHEZ 350.1.13.10 ity of [facility] 4.2.7.2.686 [place] [phone] [place] [address] [address] 2021-08-13 2021-08-13 Outpatient R JEANNINE SHELL [facility] [id number] Univers 08:00:00 08:00:00 ity of [facility] 2021-08-11 2021-08-[address] [facility] 1.2.840.114 [id number] Univers 00:00:00 00:00:00 [facility] 350.1.13.10 it y of [place].2.[place].2.686 [place] [id number] [address] OFFICE BUILDING 2021-08-10 2021-08-[address] [facility] 1.2.526.559 [id number] Univers 00:00:00 00:00:00 Cecilia PRIMARY 350.1.13.10 i ty of [place] C[place] 4.2.7.2.686 [place] [id number] [address] 2021-08-10 2021-08-[address] [facility] 1.2.840.114 [id number] Univers 00:00:00 00:00:00 Monet PRIMARY 350.1.13.10 i ty of [place] 4.2.7.2.686 [place] [id number] [address] 2021-08-06 2021-08-[address] [facility] 1.2.840.114 [id number] Univers 00:00:00 00:00:00 Secure [facility] 350.1.13.10 ity of [place].7.2.686 [place] [id number] [place] [address] [place] OFFICE BUILDING 2021-08-03 2021-08-03 Outpatient [facility] [id number] Univers 14:07:56 23:59:00 CECILIA bahena o f [facility] 2021-08-03 2021-08-03 Hospital [facility] 1.2.840.114 [id number] Univers 14:07:56 23:59:00 Encounter Cecilia SANCHEZ 350.1.13.10 ity of [place] 4.2.7.2.686 [facility] [phone] [facility] [address] 2021-07-16 2021-07-16 Telephone Brooks VILLATORO 1.2.725.532 [id number] Univers 00:00:00 00:00:00 FREDI Sims 350.1.13.10 i ty of [facility] 4.2.7.2.686 [facility] [id number] [facility] [address] 2021-07-15 2021-07-15 Outpatient [facility] [id number] Univers 13:00:00 23:59:00 CECILIA comer [facility] 2021-07-15 2021-07-15 Outpatient R [facility] [id number] Univers 13:00:00 13:00:00 CECILIA comer [facility] 2021-07-15 2021-07-15 [facility] 1.2.186.014 [id number] Univers 00:00:00 00:00:00 [facility] 350.1.13.10 i ty of [place] 4.2.7.2.686 [facility] [phone] [place] [address] [address] OFFICE BUILDING 2021-07-06 2021-07-06 Outpatient R [facility] [id number] Univers 13:00:00 14:35:18 CECILIA sargent [facility] 2021-07-06 2021-07-06 Office Monet Goodwin [facility] 1.2.84 0.114 [id number] Univers 13:00:00 14:35:18 Visit Cecilia Vasquez 350.1.13.1 0 ity of CARE 4.2.7.2.686 [facility] [id number] Ok dicsd [address] [place] 2021-07-06 2021-07-06 Outpatient R [facility] [id number] Univers 13:00:00 14:35:18 CECILIA ity o f [facility] 2021-04-19 2021-04-19 Outpatient R [facility] EHA [id number] Univers 12:11:00 23:59:00 RAMIN, ity of [place] [facility] 2021-04-19 2021-04-19 [facility] 1.2.840.114 [id number] Univers 12:11:00 23:59:00 Encounter ramin, PRIMARY 350.1.13.10 [facility] 4.2.7.2.686 [place] [id number] [facility] [address] [place] 2021-03-26 2021-03-26 Telephone [facility] 1.2.840.114 [id number] Univers 00:00:00 00:00:00 Tristen HEALTH 350.1.13.10 it y of [place].2.7.2.686 [place] [id number] [facility] [address] [place] OFFICE BUILDING 2021-03-24 2021-03-24 Telephone [facility] 1.2.840.114 [id number] Univers 00:00:00 00:00:00 Tristen HEALTH 350.1.13.10 it y of [place] 4.2.7.2.686 [place] [id number] [facility] [address] [place] OFFICE BUILDING 2021-03-16 2021-03-16 Telephone [facility] 1.2.840.114 [id number] Univers 00:00:00 00:00:00 Tristen SPECIALTY 350.1.13.10 ity of [place] 4.2.7.2.686 [place] [id number] [facility] [address] [place] 2021-03-11 2021-03-11 Telephone [facility] 1.2.840.114 [id number] Univers 00:00:00 00:00:00 Thalia C HEALTH 350.1.13.10 i ty of [place] 4.2.[place].2.686 [place] [id number] [address] OFFICE BUILDING 2021-01-14 2021-01-[address] [facility] 1.2.840.114 [id number] Univers 00:00:00 00:00:00 Thalia Maria [facility] 350.1.13.10 i ty of [place] 4.2.7.2.686 Alex [place] [id number] [address] Office Building 2020-11-12 2020-11-12 [facility] [id number] Univers 10:00:00 10:00:00 [facility] 2020-10-30 2020-10-30 Outpatient [facility] [id number] Univers 13:00:00 13:24:19 [facility] 2020-10-30 2020-10-30 Outpatient R [facility] [id number] Univers 13:00:00 13:00:[address] [facility] 2020-10-22 2020-10-[address] [facility] ERT [id number] Univers 12:07:00 12:07:[address] [facility] 2020-10-12 2020-10-[address] [facility] ERT [id number] Univers 19:23:00 19:23:00 [facility] 2020-09-07 2020-09-09 Outpatient [facility] SNS [id number] Univers 10:28:00 16:20:00 [facility] 2020-09-07 2020-09-[address] [facility] ERT [id number] Univers 10:22:00 10:22:[address] [facility] 2020-08-31 2020-08-31 Emergency E [facility] 111[address] [facility] 00:51:00 11:46:00 ALBERT 2019-07-19 2019-07-19 Emergency [facility] 1.2.840.114 [id number] 21:36:16 23:53:00 Monse Sanchez 350.1.13.10 [place] 4.2.7.2.686 [place] [id number] 4 2019-07-19 2019-07-19 Emergency X KATHY [facility] ERT [id number] Univers 21:22:00 21:22:[address] [facility] Results Test Description Test Time Test Comments Results Result Comments Source POCT MOLECULAR FLU 2022-04-21 23:56:46 Test Item Value Reference Range Interpretation Comme nts POCT Molecular FluA (test code = 18494-2) Negative Negative POCT Molecular FluB (test code = 53778-2) Negative Negative Lab Interpretation (test code = 47953-9) Normal [facility] [id number] 23:50:02 Test Item Value Reference Range Interpretation Comments POCT Molecular Strep (test code = Negative Negative 27975-4) Lab Interpretation (test code = Normal 81261-2) [facility] WITH [id number] 11:33:07 Test Item Value Reference Range Interpretation Comments WBC (test code = See_Comment L [Automated 8490-2) message] The sy stem which generated this result transmitted reference range : 4.30 - 11.10 10*3/?L. The reference range was not used to interpret this result as normal/abnormal . RBC (test code = See_Comment L [Automated 929-8) message] The sy stem which generated this result transmitted reference range : 3.93 - 5.25 10*6/?L. The reference range was not used to interpret this result as normal/abnormal . HGB (test code = 11.9 g/dL 11.6-15.0 718-7) HCT (test code = 32.3 % 35.7-45.2 L 4544-3) MCV (test code = 85.7 fL 80.6-95.5 787-2) MCH (test code = 31.6 pg 25.9-32.8 785-6) MCHC (test code = 36.8 g/dL 31.6-35.1 H 786-4) RDW-SD (test code = 38.1 fL 39.0-49.9 L 37616-0) RDW-CV (test code = 12.4 % 12.0-15.5 788-0) PLT (test code = See_Comment [Automated 777-3) message] The sy stem which generated this result transmitted reference range : 166 - 358 10*3/ ?L. The reference r vimal was not used to interpret this result as normal/abnormal . MPV (test code = 10.6 fL 9.5-12.9 80112-0) NRBC/100 WBC (test See_Comment [Automat ed code = 6320397326) message] The system which generated this result transmitted reference range : 0.0 - 10.0 /100 WBCs. The refer ence range was not u sed to interpret th is result as normal/abnormal . NRBC x10^3 (test code See_Comment [Auto mated = 1999521704) message] The s ystem which generated this result transmitted reference range : 10*3/?L. The reference range was not used to interpret this result as normal/abnormal . GRAN MAT (NEUT) % 42.2 % (test code = 770-8) IMM GRAN % (test code 0.30 % = 2139777330) LYMPH % (test code = 40.3 % 736-9) MONO % (test code = 14.6 % 5905-5) EOS % (test code = 2.0 % 713-8) BASO % (test code = 0.6 % 706-2) GRAN MAT x10^3(ANC) 1.48 10*3/uL 1.88-7.09 L (test code = 0773396773) IMM GRAN x10^3 (test 0.00-0.06 code = 8004859997) LYMPH x10^3 (test code 1.41 10*3/uL 1.32-3.29 = 731-0) MONO x10^3 (test code 0.51 10*3/uL 0.33-0.92 = 742-7) EOS x10^3 (test code = 0.07 10*3/uL 0.03-0.39 711-2) BASO x10^3 (test code 0.01-0.07 = 704-7) REACT LYMPHS (test Rare code = 8181193515) Lab Interpretation Abnormal (test code = 10302-3) [facility] METABOLIC PANEL (NA, K, CL, CO2, GLUCOSE, BUN, CREATININE, CA)2022-03-21 11:20:02 Test Item Value Reference Range Interpretation Comments NA (test code = 139 mmol/L 135-145 0850362246) K (test code = 3.8 mmol/L 3.5-5.0 1440709112) CL (test code = 113 mmol/L 98-108 H 2706187760) CO2 TOTAL (test code = 18 mmol/L 23-31 L 9438918302) AGAP (test code = 2-16 1905656865) BUN (test code = 8 mg/dL 7-23 6195600242) GLUCOSE (test code = 92 mg/dL 70-110 4511996174) CREATININE (test code = 0.56 mg/dL 0.50-1.04 1907520921) CALCIUM (test code = 8.1 mg/dL 8.6-10.6 L 0162681384) eGFR (test code = mL/min/1.73m2 7942682060) LIA (test code = LIA) Association of [...] tests). Lab Interpretation Abnormal (test code = 23355-9) [facility] Center[facility] [id number] 04:23:39 Test Item Value Reference Range Interpretation Comments MAGNESIUM (test code = 1608326290) 2.2 mg/dL 1.7-2.4 Lab Interpretation (test code = Normal 77977-2) [facility] CenterPhosphorus [id number] 04:23:39 Test Item Value Reference Range Interpretation Comments PHOSPHORUS (test code = 4864326293) 3.4 mg/dL 2.5-5.0 Lab Interpretation (test code = Normal 28383-6) [facility] CenterCBC WITH [id number] 23:51:10 Test Item Value Reference Range Interpretation Comments WBC (test code = See_Comment L [Automated 5990-2) message] The sy stem which generated this result transmitted reference range : 4.30 - 11.10 10*3/?L. The reference range was not used to interpret this result as normal/abnormal . RBC (test code = See_Comment [Automated 339-8) message] The sy stem which generated this [...] (test code = 38.6 fL 39.0-49.9 L 91113-5) RDW-CV (test code = 12.5 % 12.0-15.5 788-0) PLT (test code = See_Comment [Automated 777-3) message] The sy stem which generated this result transmitted reference range : 166 - 358 10*3/ ?L. The reference r vimal was not used to interpret this result as normal/abnormal . MPV (test code = 10.4 fL 9.5-12.9 24060-7) NRBC/100 WBC (test See_Comment [Automat ed code = 9722673032) message] The system which generated this result transmitted reference range : 0.0 - 10.0 /100 WBCs. The refer ence range was not u sed to interpret th is result as normal/abnormal . NRBC x10^3 (test code See_Comment [Auto mated = 1463077250) message] The s ystem which generated this result transmitted reference range : 10*3/?L. The reference range was not used to interpret this result as normal/abnormal . GRAN MAT (NEUT) % 49.0 % (test code = 770-8) IMM GRAN % (test code 0.30 % = 3826275040) LYMPH % (test code = 35.0 % 736-9) MONO % (test code = 13.3 % 5905-5) EOS % (test code = 1.6 % 713-8) BASO % (test code = 0.8 % 706-2) GRAN MAT x10^3(ANC) 1.85 10*3/uL 1.88-7.09 L (test code = 9527239030) IMM GRAN x10^3 (test 0.00-0.06 code = 9191792097) LYMPH x10^3 (test code 1.32 10*3/uL 1.32-3.29 = 731-0) MONO x10^3 (test code 0.50 10*3/uL 0.33-0.92 = 742-7) EOS x10^3 (test code = 0.06 10*3/uL 0.03-0.39 711-2) BASO x10^3 (test code 0.03 10*3/uL 0.01-0.07 = 704-7) Lab Interpretation Abnormal (test code = 48404-7) [facility] CenterKEPPRA (LEVETIRACETAM)2022-03-20 23:49:30 Test Item Value Reference Range Interpretation Comments KEPPRA (test code = 34 ug/mL 12-46 0480310628) LIA (test code = LIA) Therapeutic range: 12-46 ?g/mL ? ?Toxic: Not well established.Test developed and characteristics determined by [facility] Laboratory Services. Lab Interpretation Normal (test code = 03913-6) [facility] CenterPREGNANCY TEST, [id number] 23:45:17 Test Item Value Reference Range Interpretation Comments PREG SERUM (test code Negative = 6623755789) LIA (test code = LIA) Less than 10 IU/L. ?If low titer or ectopic is suspected, resubmit specimen in 48-72 hours. [facility]. METABOLIC PANEL (71451)2022-03-20 23:45:07 Test Item Value Reference Range Interpretation Comments NA (test code = 140 mmol/L 135-145 5583362570) K (test code = 3.6 mmol/L 3.5-5.0 0555278052) CL (test code = 108 mmol/L 98-108 0810769833) CO2 TOTAL (test code 24 mmol/L 23-31 = 2959625816) AGAP (test code = 2-16 4919686310) BUN (test code = 10 mg/dL 7-23 5976091357) GLUCOSE (test code = 82 mg/dL 70-110 5783937646) CREATININE (test code 0.62 mg/dL 0.50-1.04 = 5767865706) TOTAL BILI (test code 1.1 mg/dL 0.1-1.1 = 8680695542) CALCIUM (test code = 8.8 mg/dL 8.6-10.6 0107180922) T PROTEIN (test code 6.9 g/dL 6.3-8.2 = 9302687559) ALBUMIN (test code = 4.4 g/dL 3.5-5.0 0535424416) ALK PHOS (test code = 78 U/L 34-122 3660982284) ALTv (test code = 19 U/L 5-35 1742-6) AST(SGOT) (test code 21 U/L 13-40 = 4845185631) eGFR (test code = mL/min/1.73m2 4659033295) LIA (test code = LIA) Association of [...] or urine or abnormalities in imaging tests). [facility] [id number] 23:11:00 Test Item Value Reference Range Interpretation Comments POCT PREG (test code = 1605) negative On board controls acceptable with present C Line (test code = 3574) POCT PREG LOT # (test code = 3575) [id number] POCT PREG TEST DATE (test code = 3576) Lab Interpretation (test code = Normal 10778-8) [facility]REG[facility]Y TEST, [id number] 22:55:05 Test Item Value Reference Range Interpretation Comments PREG SERUM (test code Negative = 6835851077) LIA (test code = LIA) Less than 10 IU/L. ?If low titer or ectopic is suspected, resubmit specimen in 48-72 hours. [facility] GLUCOSE (AUTOMATED)2022-01-30 21:48:29 Test Item Value Reference Range Interpretation Comments POCT GLU (test code = 6345301792) 96 mg/dL 70-110 Lab Interpretation (test code = Normal 65485-2) [facility]"
[2022-04-26] MEDS ORDERED: HYDROCODONE/CHLORPHEN 5 ML/OSYR ONE (21:34)
[2022-04-26 21:41] LABS: Urine Blood Negative (Negative); Urine Glucose Negative (Negative); Urine Protein Negative (Negative); Urine pH 6.5 (5.0-7.0)
--- NOTE | 2022-04-26 22:11 | RAD REPORT ---
EXAM DESCRIPTION: RAD - Chest Pa And Lat (2 Views) - 04/26/2022 10:06 pm CLINICAL HISTORY: COUGH Chest pain. COMPARISON: Chest Single View dated 08/30/2020 FINDINGS: The lungs are clear. The heart is normal in size. No displaced fractures. Right clavicular hardware. IMPRESSION: No acute or concerning finding suspected.
[2022-04-26 22:16] LABS: SARS-COV-2 RT PCR NEGATIVE (NEGATIVE)
--- NOTE | 2022-04-26 22:45 | ER ---
Nurse's Notes [facility] Name: Nona Lee Age: 21 yrs Sex: Female : 2000 Arrival Date: 04/26/2022 Time: 20:52 Bed 11 Private MD: Diagnosis: Cough Presentation: 04/26 21:01 Chief complaint: Patient states: COUGH A FEW DAYS. NOW HAVING LEFT SIDED PAIN WITH jj7 COUGHING AND TAKING DEEP BREATHS. Coronavirus screen: At this time, the client does not indicate any symptoms associated with coronavirus-19. Ebola Screen: No symptoms or risks identified at this time. Initial Sepsis Screen: Does the patient meet any 2 criteria? No. Patient's initial sepsis screen is negative. Does the patient have a suspected source of infection? No. Patient's initial sepsis screen is negative. Risk Assessment: Do you want to hurt yourself or someone else? Patient reports no desire to harm self or others. Onset of symptoms was April 26, 2022. 21:01 Method Of Arrival: Ambulatory j7 21:01 Acuity: LUBNA 4 jj7 Triage Assessment: 21:05 General: Appears in no apparent distress. comfortable, Behavior is calm, cooperative, jj7 appropriate for age. Respiratory: Reports cough that is productive, dry. 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 - Social history:: Smoking status: Patient denies any tobacco usage or history of. Patient/guardian denies using alcohol, street drugs. Screenin:11 [facility] ED Fall Risk Assessment (Adult) History of falling in the last 3 months, jj7 including since admission No falls in past 3 months (0 pts) Confusion or Disorientation No (0 pts) Intoxicated or Sedated No (0 pts) Impaired Gait Yes (1 pt) Mobility Assist Device Used No (0 pt) Altered Elimination No (0 pt) Score/Fall Risk Level 0 - 2 = Low Risk. Humpty Dumpty Scale Fall Assessment Tool (age< 18yrs) Age 13 years and above (1 pt) Gender Female (1 pt) Diagnosis Other diagnosis (1 pt) Cognitive Impairments Oriented to own ability (1 pt) Environmental Factors Patient placed in bed (2 pts) Response to Surgery/Sedation/Anesthesia More than 48 hours/ None (1 pt) Medication Usage Other medications/ None (1 pt) Fall Risk Score/ Level Low Fall Risk: </= 11 points Maintained a safe environment: Age specific bed with railing, Bed in low position\\T\\ wheels locked, Assess need for siderail use, Locks on, Rm \\T\\ paths clutter \\T\\ obstacle free, Proper lighting, Call light, personal item w/in reach, Alarms as needed. Abuse screen: Denies threats or abuse. Nutritional screening: No deficits noted. Tuberculosis screening: No symptoms or risk factors identified. Fall Risk No fall in past 12 months (0 pts). Assessment: 21:11 Pain:. Respiratory: Reports cough that is productive, dry. Respiratory: Airway is jj7 patent Respiratory effort is even, unlabored, Breath sounds are clear bilaterally. EENT: No deficits noted. 21:24 General: Reports "Around noon I started to feel a sharp pain on my left side when I tw5 cough. It has been getting worse as the day goes on. It is now a dull constant ache, expect when I cough it becomes so sharp I have to brace my side.". Respiratory: Breath sounds are clear bilaterally. in right upper lobe, left upper lobe, left posterior upper lobe, right posterior upper lobe, left posterior lower lobe and right posterior middle lobe. Vital Signs: 21:01 BP 126 / 68; Pulse 68; Resp 18; Temp 98.5; Pulse Ox 100% ; Weight 53.98 kg; Height 5 j7 ft. 1 in. (154.94 cm); Pain 4/10; 21:01 Body Mass Index 22.48 (53.98 kg, 154.94 cm) jj7 ED Course: 20:52 Patient arrived in ED. jj6 20:54 Van Thomas PA is PHCP. cp 21:05 Triage completed. jj7 21:05 Arm band placed on left wrist. jj7 21:11 Patient has correct armband on for positive identification. Bed in low position. Call jj7 light in reach. Adult w/ patient. 21:11 No provider procedures requiring assistance completed. jj7 21:17 Dominga Waldrop MD is Attending Physician. claudy 21:18 Bernice Contreras is Primary Nurse. tw5 21:24 Door closed. Noise minimized. Lights dimmed. tw5 21:36 COVID-19/FLU A+B Sent. tw5 22:07 XRAY Chest Pa And Lat (2 Views) In Process Unspecified. EDMS 22:54 Patient did not have IV access during this emergency room visit. tw5 Administered Medications: 21:36 Drug: Tussionex Pennkinetic ER (chlorpheniramine-hydrocodone) Suspension 5 ml Route: PO;tw5 22:54 Follow up: Response: No adverse reaction; Pain is decreased; RASS: Alert and Calm (0) tw5 Medication: 21:11 VIS not applicable for this client. jj7 Outcome: 22:45 Discharge ordered by . cp 22:54 Discharged to home ambulatory. tw5 22:54 Condition: stable 22:54 Condition: improved 22:54 Discharge instructions given to patient. 22:54 Instructed on discharge instructions, follow up and referral plans. medication usage, Demonstrated understanding of instructions, follow-up care, medications, Prescriptions given X 2. 22:55 Patient left the ED. tw5 Signatures: Dispatcher [employer] EDWY Van Thomas PA PA cp Wood, Tiffany tw5 Alexus Bautista jj6 Fouzia Simental RN RN jj7
--- NOTE | 2022-04-26 22:45 | EDPHYS ---
Physician Documentation [facility] Name: Nona Lee Age: 21 yrs Sex: Female : 2000 Arrival Date: 04/26/2022 Time: 20:52 Bed 11 Private MD: ED Physician Dominga Waldrop HPI: 04/26 21:33 This 21 yrs old Female presents to ER via Ambulatory with complaints of Sore cp Throat, Cough, Left side pain. 21:33 The patient or guardian reports cough, that is intermittent, with productive sputum, cp that is green. 21:33 Onset: The symptoms/episode began/occurred 4 day(s) ago. Associated signs and symptoms: cp Pertinent positives: chest pain, with cough, with breathing, left lower lateral rib area, sore throat, Pertinent negatives: diarrhea, ear ache, fever, vomiting. Severity of symptoms: in the emergency department the symptoms are unchanged despite home interventions. 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 - Social history:: Smoking status: Patient denies any tobacco usage or history of. Patient/guardian denies using alcohol, street drugs. ROS: 21:35 Constitutional: Positive for chills, Negative for body aches, fever, poor PO intake. cp 21:35 Respiratory: Positive for cough, with green sputum, Negative for shortness of breath, cp wheezing. 21:35 Abdomen/GI: Negative for vomiting, diarrhea, constipation. 21:35 Eyes: Negative for injury, pain, redness, and discharge. cp 21:35 ENT: Positive for sore throat, Negative for drainage from ear(s), ear pain, difficulty swallowing, difficulty handling secretions. 21:35 Cardiovascular: Positive for chest pain, of the left lower lateral rib area. 21:35 : Negative for urinary symptoms. 21:35 Skin: Negative for rash. 21:35 Neuro: Negative for altered mental status, dizziness, headache, syncope, weakness. 21:35 All other systems are negative. cp Exam: 21:40 Constitutional: The patient appears in no acute distress, alert, awake, non-toxic, well cp developed, well nourished. 21:40 Head/Face: Normocephalic, atraumatic. cp 21:40 Eyes: Periorbital structures: appear normal, Conjunctiva: normal, no exudate, no cp injection, Sclera: no appreciated abnormality, Lids and lashes: appear normal, bilaterally. 21:40 ENT: External ear(s): are unremarkable, Ear canal(s): are normal, clear, TM's: dullness, bilaterally, Nose: is normal, Mouth: Lips: moist, Oral mucosa: moist, Posterior pharynx: Airway: no evidence of obstruction, patent, Tonsils: with erythema, no enlargement, no exudate, swelling, is not appreciated, erythema, that is mild, exudate, is not appreciated. 21:40 Neck: ROM/movement: is normal, is supple, without pain, no range of motions limitations, no meningismus, Lymph nodes: no appreciated lymphadenopathy. 21:40 Chest/axilla: Inspection: normal, Palpation: crepitus, is not appreciated, tenderness, that is mild, of the left lower lateral rib area. 21:40 Cardiovascular: Rate: normal, Rhythm: regular, Edema: is not appreciated, JVD: is not appreciated. 21:40 Respiratory: the patient does not display signs of respiratory distress, Respirations: normal, no use of accessory muscles, no retractions, labored breathing, is not present, Breath sounds: are clear throughout, no decreased breath sounds, rhonchi, no stridor, no wheezing. 21:40 Abdomen/GI: Inspection: abdomen appears normal, Bowel sounds: active, all quadrants, Palpation: abdomen is soft and non-tender, in all quadrants. 21:40 Back: CVA tenderness, is absent. 21:40 Skin: cellulitis, is not appreciated, no rash present. 21:40 Neuro: Orientation: to person, place \T\ time. Mentation: is normal, Motor: moves all fours, strength is normal, Sensation: is normal. 21:40 Musculoskeletal/extremity: DVT Exam: No signs of deep vein thrombosis. cp Vital Signs: 21:01 BP 126 / 68; Pulse 68; Resp 18; Temp 98.5; Pulse Ox 100% ; Weight 53.98 kg; Height 5 jj7 ft. 1 in. (154.94 cm); Pain 4/10; 21:01 Body Mass Index 22.48 (53.98 kg, 154.94 cm) jj7 MDM: 21:17 Patient medically screened. cp 22:45 Data reviewed: vital signs, nurses notes, lab test result(s), radiologic studies, plain cp films. 22:45 Differential diagnosis: bronchitis, flu, viral URI, pneumonia, less likely PE. Test cp interpretation: by ED physician or midlevel provider: plain radiologic studies. Counseling: I had a detailed discussion with the patient and/or guardian regarding: the historical points, exam findings, and any diagnostic results supporting the discharge/admit diagnosis, lab results, radiology results, to return to the emergency department if symptoms worsen or persist or if there are any questions or concerns that arise at home. Response to treatment: the patient's symptoms have markedly improved after treatment, and as a result, I will discharge patient. 22:45 ED course: VSS. Cough improved with meds. Patient appears non-toxic and no signs of cp respiratory distress. Chest xray negative for pneumonia. Will discharge to home for continued monitoring. 04/26 21:28 Order name: COVID-19/FLU A+B; Complete Time: 22:42 cp 04/26 22:42 Interpretation: Reviewed. 04/26 21:41 Order name: Urine --Ancillary (enter results); Complete Time: 22:42 ds4 04/26 21:28 Order name: XRAY Chest Pa And Lat (2 Views); Complete Time: 22:15 cp 04/26 22:15 Interpretation: Report reviewed. 04/26 21:28 Order name: Urine Dipstick-Ancillary (obtain specimen); Complete Time: 21:41 cp 04/26 21:41 Order name: Urine Dipstick-Ancillary; Complete Time: 22:15 EDMS 04/26 21:28 Order name: Urine Test (obtain specimen); Complete Time: 21:41 cp Administered Medications: 21:36 Drug: Tussionex Pennkinetic ER (chlorpheniramine-hydrocodone) Suspension 5 ml Route: PO;tw5 22:54 Follow up: Response: No adverse reaction; Pain is decreased; RASS: Alert and Calm (0) tw5 Disposition Summary: 04/26/22 22:45 Discharge Ordered Location: Home cp Problem: new cp Symptoms: have improved cp Condition: Stable cp Diagnosis - Cough cp Followup: cp - With: Private Physician - When: 2 - 3 days - Reason: Worsening of condition Discharge Instructions: - Discharge Summary Sheet cp - Viral Respiratory Infection cp - Cough, Adult cp Forms: - Medication Reconciliation Form cp - Thank You Letter cp - Antibiotic Education cp - Prescription Opioid Use cp Prescriptions: - albuterol sulfate 90 mcg/actuation Inhalation HFA aerosol inhaler - inhale 1 puff by INHALATION route every 4-6 hours; 1 Inhaler; Refills: 0, cp Product Selection Permitted - Bromfed DM 2-30-10 mg/5 mL Oral syrup - take 10 milliliter by ORAL route every 6 hours; 180 milliliter; Refills: 0, cp Product Selection Permitted Signatures: Dispatcher [employer] EDMS Van Thomas PA PA cp Wood, Tiffany tw5 Fouzia Simental RN RN jj7
[2022-04-26 23:01] VITALS: BP 126/68; TEMP 98.5; O2SAT 100
== END 2022-04-26 22:55 | disposition home or self-care (01) ==
LOC: ER 20:50
DX: R05.9 Cough, unspecified (principal); Z20.822 Contact with and (suspected) exposure to COVID-19
CPT/HCPCS: 81025; 81003; 0240U; 71046; 99284

== ENCOUNTER 2022-09-21 18:14 | Emergency (ER) | payer BC ==
--- OUTSIDE RECORDS SUMMARY | 2022-09-21 18:27 | XMS REPORT | Continuity of Care Document ---
:2000 Author Organization [facility] t Address [address] [place] [address] [place] [id number] Care Team Providers Name Role Phone AXEL PARRA Primary Care Physician Unavailable LESLEY LI Attending Clinician Unavailable AXEL PARRA Attending Clinician Unavailable KEITH GARCIA Attending Clinician Unavailable JEANNINE SHELL Attending Clinician Unavailable KAVITHA MAC Attending Clinician Unavailable TRISTEN MESSER Attending Clinician Unavailable THALIA NICHOLE Attending Clinician Unavailable Axel Parra MD Attending Clinician Lesley Li MD Attending Clinician BROOKS SEGURA Attending Clinician Unavailable 2, Adc Lab Attending Clinician Unavailable Key SMALLS Attending Clinician Unavailable Key Martínez Attending Clinician Anusha Lainez MD Attending Clinician Lab, Ang - Db Attending Clinician Unavailable ANA BOLES Attending Clinician Unavailable Ana Rodriguez Attending Clinician Doctor Unassigned, The Silos Attending Clinician Unavailable Tristen Messer MD Attending Clinician Suleman ALVARADO, Jeannine S Attending Clinician Angélica THORNTON, Kathryn Carlin Attending Clinician Jey ALVARADO, Felicitas Gold Attending Clinician Unknown, Attending Attending Clinician Unavailable Maggi Gar Attending Clinician MAGGI EMANUEL Attending Clinician Unavailable FELICITAS KHANNA Attending Clinician Unavailable CARMEN TALBERT Attending Clinician Unavailable Juma ALVARADO, Jennifer De Leon Attending Clinician Jarred ALVARADO, Sarthak Elam Attending Clinician Gali ALVARADO, Carmen Attending Clinician Goodwin MD, Monet Attending Clinician Jagdish THORNTON, Mike Bajwa Attending Clinician Unavailable BILLY HEARD Attending Clinician Unavailable BILLY HEARD [...] Clinician Unavailable Bárbara Gillis MD Attending Clinician Antonia ALVARADO, Perla Attending Clinician Kavitha Mac MD Attending Clinician Dionisio CONDE, Thalia Maria Attending Clinician Luis Eduardo Myers DO Attending Clinician Lilo Mendieta MD Attending Clinician LILO MENDIETA Attending Clinician Unavailable Kristy THORNTON, Carleen Gold Attending Clinician Unavailable Ranjit Robb MD Attending Clinician Only, Adc Test Attending Clinician Unavailable Brooks Sims MD, Ulises Whitt Attending Clinician [phone] CECILIA VASQUEZ Attending Clinician Unavailable GABRIEL, MILLY Attending Clinician Unavailable Milly Huerta Attending Clinician [phone] ALBERT RUIZ Attending Clinician Unavailable Key SMALLS Admitting Clinician Unavailable FELICITAS KHANNA Admitting Clinician Unavailable Felicitas Khanna MD Admitting Clinician JEANNINE SHELL Admitting Clinician Unavailable CARMEN TALBERT Admitting Clinician Unavailable Carmen Talbert MD Admitting Clinician GITA HUNT Admitting Clinician Unavailable SY TIMMONS Admitting Clinician Unavailable Sy Timmons MD Admitting Clinician MONSE CHAVEZ Admitting Clinician Unavailable JUSTIN BARRETO Admitting Clinician Unavailable Ranjit Robb MD Admitting Clinician CECILIA VASQUEZ Admitting Clinician Unavailable TRISTEN MESSER Admitting Clinician Unavailable DEVIN SHEFFIELD Admitting Clinician Unavailable Payers Payer Name Policy Type Policy Number Effective Date Expiration Date S ource [employer] [place] [id number] 2021 EMPLOYEE PLAN 00:00:00 [place] [id number] 2022 WOMEN 00:00:00 BCBS [facility] [id number] 2021 00:00:00 Problems Condition Condition Condition Status Onset Resolution Last Treating Co mments Source Name Details Category Date Date Treatment Clinician Date Disease Active Univers control control 09-13 ity of counseling [place] [facility] Excessive, Excessive, Disease Active U nivers frequent frequent 09-13 ity of and and 00:00: [place] irregular irregular 00 Medi michael menstruati menstruati Br anch on on Superficia Superficia Disease Active U nivers l bruising l bruising 5-09 it y of 00:00: [place] 00 Medical Branch Seizure Seizure Disease Active 2021-05 Univers 1-13 ity of 00:00: [place] [facility] Syncope Syncope Disease Active 2021-05 Univers and and 0-05 ity of collapse collapse 00:00: [place] [facility] Tremor Tremor Disease Active 2021-05 Univers 0-05 ity of 00:00: [place] [facility] Dizziness Dizziness Disease Active 2021-05 Uni vers and and 0-05 ity of giddiness giddiness [place] 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 palpitatio palpitatio 0-05 it y of ns ns 00:00: [place] [facility] Anxiety Anxiety Disease Active 2021-05 Univers and and 0-05 ity of depression depression [place] [facility] [place] Weakness Weakness Disease Active Unive rs 9-25 ity of 00:00: [place] [facility] Seizure-li Seizure-li Disease Active U fracisco ke ke 4-11 ity of activity activity 00:00: [place] [facility] 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 3-07 ity of 00:00: [place] [facility] Seizure Seizure Disease Active Univers disorder disorder 3-07 ity of 00:00: [place] [facility] Numbness Numbness Disease Active Unive rs and and 6-17 ity of tingling tingling 00:00: [place] of both of both 00 Medical upper upper Branch extremitie extremitie s s 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 [place] [facility] Numbness Numbness Disease Active Unive rs 5-04 ity of 00:00: [place] [facility] 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 00:00: [place] [facility] Allergies, Adverse Reactions, Alerts Allergy Allergy Status Severity Reaction(s) Onset Inactive Treating Comm ents Source Name Type Date Date Clinician NO KNOWN Drug Active Univers ALLERGIE Class ity of S [facility] Family History Family Member Diagnosis Comments Start Date Stop Date Source M[facility] Maternal Hypertension University o f grandmother [facility] Natural mother Heart [facility] Natural mother Hypertension Universi ty of [facility] Natural mother Other - see Universit y of comments [facility] Family member Cancer [facility] Family member Diabetes [facility] Social History Social Habit Start Date Stop Date Quantity Comments Source History of Passive smoker University of tobacco use [facility] History SDOH University o f Alcohol Std [place] [facility] History SDOH University o f Alcohol Binge [place] [facility] History SDOH University o f Alcohol Comment [place] [facility] Alcohol intake 2022-09-16 2022-09-16 Lifetime University of 00:00:00 00:00:00 non-drinker [facility] (finding) [place] Exposure to 2022-09-03 2022-09-13 Not sure [facility] SARS-CoV-2 00:00:00 13:21:00 [facility] (event) Branch Tobacco use and 2022-04-18 2022-04-18 Smokeless tobacco Un iversity of exposure 00:00:00 00:00:00 non-user [facility] History SDOH 2021-09-10 2021-09-10 1 University o f Alcohol Frequency 00:00:00 00:00:00 [place] [facility] Education 2020-09-07 2020-09-07 12 [place] of 00:00:00 00:00:00 [facility] Sex Assigned At [birth year] Universit y of 00:00:00 00:00:00 [facility] Smoking Status Start Date Stop Date Source Never smoked tobacco [facility] Tobacco smoking consumption [facility] unknown Branch Medications Ordered Filled Start Stop Current Ordering Indication Dosage Frequency Signature Comments Components Source Medication Medication Date Date Medication? Clinician (SIG) Name Name ergocalcife Yes [id number] Take 1 Univers rol, 5-15 capsule by ity of vitamin d2, 00:00: mouth [place] 1,250 mcg 00 weekly. Medical (50,000 Branch unit) capsule norgestimat Yes [id number] 1{tbl} Take 1 Univers e-ethinyl 5-12 tablet by ity o f estradioL 00:00: [place] 0.25-35 00 the Medical mg-mcg per morning. Branc h tablet norgestimat 2023-0 Yes [id number] 1{tbl} Take 1 Univers e-ethinyl 5-12 tablet by ity o f estradioL 00:00: mouth in [facility] 0.25-35 00 the Medical mg-mcg per morning. Branc h tablet norgestimat 2023-0 Yes [id number] 1{tbl} Take 1 Univers e-ethinyl 5-12 tablet by ity o f estradioL 00:00: mouth in [facility] 0.25-35 00 the Medical mg-mcg per morning. Branc h tablet phenytoin 3-0 Yes 100mg Take 100 Uni vers sodium 5-09 mg by ity of extended 13:29: mouth in [place] (DILANTIN 56 the Medical ORAL) morning. Branch phenytoin 2023-0 Yes 100mg Take 100 Uni vers sodium 5-09 mg by ity of extended 13:29: mouth in [place] (DILANTIN 56 the Medical ORAL) morning. Branch phenytoin 2023-0 Yes 100mg Take 100 Uni vers sodium 5-09 mg by ity of extended 13:29: mouth in [place] (DILANTIN 56 the Medical ORAL) morning. Branch phenytoin 2023-0 Yes 100mg Take 100 Uni vers sodium 5-09 mg by ity of extended 13:29: mouth in [place] (DILANTIN 56 the Medical ORAL) morning. Branch phenytoin 2023-0 Yes 100mg Take 100 Uni vers sodium 5-09 mg by ity of extended 13:29: mouth in [place] (DILANTIN 56 the Medical ORAL) morning. Branch phenytoin 2023-0 Yes 100mg Take 100 Uni vers sodium 5-09 mg by ity of extended 13:29: mouth in [place] (DILANTIN 56 the Medical ORAL) morning. Branch ergocalcife 2023-0 Yes [id number] Take 1 Univers rol, 5-05 capsule by ity of vitamin d2, 00:00: mouth [place] 1,250 mcg 00 weekly. Medical (50,000 Branch unit) capsule calcium 3-0 Yes [id number] 1{tbl} Take 1 Un ramses carbonate 5-05 tablet by ity o f (CALCIUM 00:00: mouth in [place] 500) 500 mg 00 the Medical calcium morning. Branch (1,250 mg) chewable tablet ergocalcife 2023-0 Yes [id number] Take 1 Univers rol, 5-05 capsule by ity of vitamin d2, 00:00: mouth [place] 1,250 mcg 00 weekly. Medical (50,000 Branch unit) capsule calcium 2023-0 Yes [id number] 1{tbl} Take 1 Un ramses carbonate 5-05 tablet by ity o f (CALCIUM 00:00: mouth in [place] 500) 500 mg 00 the Medical calcium morning. Branch (1,250 mg) chewable tablet ergocalcife 2023-0 Yes [id number] Take 1 Univers rol, 5-05 capsule by ity of vitamin d2, 00:00: mouth [place] 1,250 mcg 00 weekly. Medical (50,000 Branch unit) capsule calcium 2023-0 Yes [id number] 1{tbl} Take 1 Un ramses carbonate 5-05 tablet by ity o f (CALCIUM 00:00: mouth in [place] 500) 500 mg 00 the Medical calcium morning. Branch (1,250 mg) chewable tablet ergocalcife 2023-0 Yes [id number] Take 1 Univers rol, 5-05 capsule by ity of vitamin d2, 00:00: mouth [place] 1,250 mcg 00 weekly. Medical (50,000 Branch unit) capsule calcium 2023-0 Yes [id number] 1{tbl} Take 1 Un ramses carbonate 5-05 tablet by ity o f (CALCIUM 00:00: mouth in [place] 500) 500 mg 00 the Medical calcium morning. Branch (1,250 mg) chewable tablet ergocalcife 2023-0 Yes [id number] Take 1 Univers rol, 5-05 capsule by ity of vitamin d2, 00:00: mouth [place] 1,250 mcg 00 weekly. Medical (50,000 Branch unit) capsule calcium 2023-0 Yes [id number] 1{tbl} Take 1 Un ramses carbonate 5-05 tablet by ity o f (CALCIUM 00:00: mouth in [place] 500) 500 mg 00 the Medical calcium morning. Branch (1,250 mg) chewable tablet ergocalcife 2023-0 Yes [id number] Take 1 Univers rol, 5-05 capsule by ity of vitamin d2, 00:00: mouth [place] 1,250 mcg 00 weekly. Medical (50,000 Branch unit) capsule calcium 2023-0 Yes [id number] 1{tbl} Take 1 Un ramses carbonate 5-05 tablet by ity o f (CALCIUM 00:00: mouth in [place] 500) 500 mg 00 the Medical calcium morning. Branch (1,250 mg) chewable tablet calcium 2022-0 Yes [id number] 1{tbl} Take 1 Un ramses carbonate 5-05 tablet by ity o f (CALCIUM 00:00: mouth in [place] 500) 500 mg 00 the Medical calcium morning. Branch (1,250 mg) chewable tablet ergocalcife 2022-0 3- No [id number] Take 1 Univers rol, 5-05 05-15 capsule by ity of vitamin d2, 00:00: [place] 1,250 mcg 00 :00 weekly. Medical (50,000 Branch unit) capsule NaCl 0.9% 2022-0 2022- No 1000mL at 999 Uni vers (NS) bolus 08-26-21 mL/hr, ity of infusion 19:45: 21:40 1,000 mL, [place] 1,000 mL 00 :00 IV Medical Infusion, Branch ONCE, 1 dose, On 08/26/22 at 1445, STAT levETIRAcet 2022-0 2022- No 1000mg 1,000 mg, Univers am (KEPPRA) 08-26 IV ity of in NACL 19:00: 19:48 Piggyback, [place] (ISO-OS) 00 :00 ONCE, 1 Medical 1,000 dose, On Branch mg/100 mL Fri RTU 08/26/22 at 1400, Administer over 15 Minutes, 100 mL levETIRAcet 3-0 Yes 500mg Take 1 Uni vers am 500 mg 4-20 tablet by ity o f tablet 14:09: mouth in [place] [address] the Medical morning Branch and 1 tablet in the evening. levETIRAcet 2023-0 Yes 500mg Take 1 Uni vers am 500 mg 4-20 tablet by ity o f tablet 14:09: mouth in [place] [address] the Medical morning Branch and 1 tablet in the evening. levETIRAcet 2023-0 Yes 500mg Take 1 Uni vers am 500 mg 4-20 tablet by ity o f tablet 14:09: mouth in [place] [address] the Medical morning Branch and 1 tablet in the evening. levETIRAcet 2023-0 Yes 500mg Take 1 Uni vers am 500 mg 4-20 tablet by ity o f tablet 14:09: mouth in [address] and 1 tablet in the evening. levETIRAcet 2023-0 Yes 500mg Take 1 Uni vers am 500 mg 4-20 tablet by ity o f tablet 14:09: mouth in [address] and 1 tablet in the evening. levETIRAcet 2023-0 Yes 500mg Take 1 Uni vers am 500 mg 4-20 tablet by ity o f tablet 14:09: mouth in [address] and 1 tablet in the evening. levETIRAcet 2023-0 Yes 500mg Take 1 Uni vers am 500 mg 4-20 tablet by ity o f tablet 14:09: mouth in [address] and 1 tablet in the evening. levETIRAcet 2023-0 Yes 500mg Take 1 Uni vers am 500 mg 4-20 tablet by ity o f tablet 14:09: mouth in [address] and 1 tablet in the evening. levETIRAcet 2023-0 Yes 500mg Take 1 Uni vers am 500 mg 4-20 tablet by ity o f tablet 14:09: mouth in [address] and 1 tablet in the evening. levETIRAcet 2023-0 Yes 500mg Take 1 Uni vers am 500 mg 4-20 tablet by ity o f tablet 14:09: mouth in [address] and 1 tablet in the evening. levETIRAcet 2023-0 Yes 500mg Take 1 Uni vers am 500 mg 4-20 tablet by ity o f tablet 14:09: mouth in [address] and 1 tablet in the evening. levETIRAcet 2023-0 Yes 500mg Take 1 Uni vers am 500 mg 4-20 tablet by ity o f tablet 14:09: mouth in [address] and 1 tablet in the evening. escitalopra 2023-0 Yes [id number] 10mg Take 1 Univers m oxalate 4-20 tablet by ity o f 10 mg 00:00: mouth in [place] tablet 00 the Medical morning. Branch Take 1/2 tablet by mouth in the morning for the 1st week prior to transition ing to full dose. escitalopra 2023-0 Yes [id number] 10mg Take 1 Univers m oxalate 4-20 tablet by ity o f 10 mg 00:00: mouth in [place] tablet 00 the Medical morning. Branch Take 1/2 tablet by mouth in the morning for the 1st week prior to transition ing to full dose. escitalopra 3-0 Yes [id number] 10mg Take 1 Univers m oxalate 4-20 tablet by ity o f 10 mg 00:00: mouth in [place] tablet 00 the Medical morning. Branch Take 1/2 tablet by mouth in the morning for the 1st week prior to transition ing to full dose. escitalopra 3-0 Yes [id number] 10mg Take 1 Univers m oxalate 4-20 tablet by ity o f 10 mg 00:00: mouth in [place] tablet 00 the Medical morning. Branch Take 1/2 tablet by mouth in the morning for the 1st week prior to transition ing to full dose. escitalopra 3-0 Yes [id number] 10mg Take 1 Univers m oxalate 4-20 tablet by ity o f 10 mg 00:00: mouth in [place] tablet 00 the Medical morning. Branch Take 1/2 tablet by mouth in the morning for the 1st week prior to transition ing to full dose. escitalopra 3-0 Yes [id number] 10mg Take 1 Univers m oxalate 4-20 tablet by ity o f 10 mg 00:00: mouth in [place] tablet 00 the Medical morning. Branch Take 1/2 tablet by mouth in the morning for the 1st week prior to transition ing to full dose. escitalopra 3-0 Yes [id number] 10mg Take 1 Univers m oxalate 4-20 tablet by ity o f 10 mg 00:00: mouth in [place] tablet 00 the Medical morning. Branch Take 1/2 tablet by mouth in the morning for the 1st week prior to transition ing to full dose. escitalopra 3-0 Yes [id number] 10mg Take 1 Univers m oxalate 4-20 tablet by ity o f 10 mg 00:00: mouth in [place] tablet 00 the Medical morning. Branch Take 1/2 tablet by mouth in the morning for the 1st week prior to transition ing to full dose. escitalopra 3-0 Yes [id number] 10mg Take 1 Univers m oxalate 4-20 tablet by ity o f 10 mg 00:00: mouth in [place] tablet 00 the Medical morning. Branch Take 1/2 tablet by mouth in the morning for the 1st week prior to transition ing to full dose. escitalopra 2022-0 Yes [id number] 10mg Take 1 Univers m oxalate 4-20 tablet by ity o f 10 mg 00:00: mouth in [place] tablet 00 the Medical morning. Branch Take 1/2 tablet by mouth in the morning for the 1st week prior to transition ing to full dose. escitalopra 2022-0 Yes [id number] 10mg Take 1 Univers m oxalate 4-20 tablet by ity o f 10 mg 00:00: mouth in [place] tablet 00 the Medical morning. Branch Take 1/2 tablet by mouth in the morning for the 1st week prior to transition ing to full dose. diazePAM 2022-0 2022- Yes [id number] 10mg Take 1 U nivers (VALIUM) 10 4-11 -12 tablet by it y of mg tablet 00:00: 04:59 [place] :[place] now for 1 Medical dose. Branch diazePAM 2022-0 2022- No [id number] 10mg Take 1 U nivers (VALIUM) 10 4-03 11-12 tablet by it y of mg tablet 00:00: 04:59 mouth [place] :00 now for 1 Medical dose. Branch diazePAM 2022-2022- No [id number] 10mg Take 1 U nivers (VALIUM) 10 4-11 -12 tablet by it y of mg tablet 00:00: 04:59 [place] :00 now for 1 Medical dose. Branch levETIRAcet 2022-0 Yes 500mg Take 1 Uni vers am (KEPPRA) 4-07 tablet by ity of 500 mg 14:35: mouth in [place] tablet 57 the Medical morning Branch and 1 tablet in the evening. levETIRAcet 2022-0 Yes 500mg Take 1 Uni vers am (KEPPRA) 4-07 tablet by ity of 500 mg 14:35: mouth in [place] tablet 57 the Medical morning Branch and 1 tablet in the evening. levETIRAcet 2022-0 Yes 500mg Take 1 Uni vers am (KEPPRA) 4-07 tablet by ity of 500 mg 14:35: mouth in [place] tablet 57 the Medical morning Branch and 1 tablet in the evening. levETIRAcet 2022-0 Yes 500mg Take 1 Uni vers am (KEPPRA) 4-07 tablet by ity of 500 mg 14:35: mouth in [place] tablet 57 the Medical morning Branch and 1 tablet in the evening. levETIRAcet 3-0 Yes 500mg Take 1 Uni vers am (KEPPRA) 4-07 tablet by ity of 500 mg 14:35: mouth in [place] tablet 57 the Medical morning Branch and 1 tablet in the evening. norgestimat 2023-0 Yes [id number] 1{tbl} Take 1 Univers e-ethinyl 4-07 tablet by ity o f estradioL 00:00: [place] ([place]THO 00 the Medical TRI-CYCLEN morning. Bran h LO, 28,) 0.18/0.215/ 0.25 mg-25 mcg tablet norgestimat 2023-0 Yes [id number] 1{tbl} Take 1 Univers e-ethinyl 4-07 tablet by ity o f estradioL 00:00: [place] (ORTHO 00 the Medical TRI-CYCLEN morning. Bran h LO, 28,) 0.18/0.215/ 0.25 mg-25 mcg tablet norgestimat 3-0 Yes [id number] 1{tbl} Take 1 Univers e-ethinyl 4-07 tablet by ity o f estradioL 00:00: [place] (ORTHO 00 the Medical TRI-CYCLEN morning. Branc h LO, 28,) 0.18/0.215/ 0.25 mg-25 mcg tablet norgestimat 3-0 Yes [id number] 1{tbl} Take 1 Univers e-ethinyl 4-07 tablet by ity o f estradioL 00:00: [place] ([place]TH[place] 00 the Medical TRI-CYCLEN morning. Bran h LO, 28,) 0.18/0.215/ 0.25 mg-25 mcg tablet norgestimat 3-0 Yes [id number] 1{tbl} Take 1 Univers e-ethinyl 4-07 tablet by ity o f estradioL 00:00: [place] ([place]THO 00 the Medical TRI-CYCLEN morning. Branc h LO, 28,) 0.18/0.215/ 0.25 mg-25 mcg tablet norgestimat 3-0 Yes [id number] 1{tbl} Take 1 Univers e-ethinyl 4-07 tablet by ity o f estradioL 00:00: [place] ([place]TH[place] 00 the -CYCLE morning. [facility], 28,) 0.18/0.215/ 0.25 mg-25 mcg tablet norgestimat 2023-0 Yes [id number] 1{tbl} Take 1 Univers e-ethinyl 4-07 tablet by ity o f estradioL 00:00: [place] ([place]TH[place] 00 the -CYCLE morning. [facility], 28,) 0.18/0.215/ 0.25 mg-25 mcg tablet norgestimat 2023-0 Yes [id number] 1{tbl} Take 1 Univers e-ethinyl 4-07 tablet by ity o f estradioL 00:00: [place] ([place]TH[place] 00 the CYCLE morning. [facility], 28,) 0.18/0.215/ 0.25 mg-25 mcg tablet norgestimat 2023-0 Yes [id number] 1{tbl} Take 1 Univers e-ethinyl 4-07 tablet by ity o f estradioL 00:00: [place] ([place]TH[place] 00 the CYCLE morning. [facility], 28,) 0.18/0.215/ 0.25 mg-25 mcg tablet norgestimat 2023-0 Yes [id number] 1{tbl} Take 1 Univers e-ethinyl 4-07 tablet by ity o f estradioL 00:00: [place] ([place]TH[place] 00 the CYCLE morning. [facility], 28,) 0.18/0.215/ 0.25 mg-25 mcg tablet norgestimat 2023-0 Yes [id number] 1{tbl} Take 1 Univers e-ethinyl 4-07 tablet by ity o f estradioL 00:00: [place] ([place]TH[place] the CYCLE morning. [facility], 28,) 0.18/0.215/ 0.25 mg-25 mcg tablet norgestimat 2023-0 Yes [id number] 1{tbl} Take 1 Univers e-ethinyl 4-07 tablet by ity o f estradioL 00:00: [place] ([place]TH[place] 00 the Medical TRI-CYCLEN morning. [facility], 28,) 0.18/0.215/ 0.25 mg-25 mcg tablet norgestimat 3-0 Yes [id number] 1{tbl} Take 1 Univers e-ethinyl 4-07 tablet by ity o f estradioL 00:00: [facility] the Medical TRI-CYCLEN morning. [facility], 28,) 0.18/0.215/ 0.25 mg-25 mcg tablet norgestimat 3-0 Yes [id number] 1{tbl} Take 1 Univers e-ethinyl 4-07 tablet by ity o f estradioL 00:00: [facility] ([facility] the Medical TRI-CYCLEN morning. [facility], 28,) 0.18/0.215/ 0.25 mg-25 mcg tablet norgestimat 3-0 2023- No [id number] 1{tbl} Take 1 Univers e-ethinyl 4-07 05-12 tablet by ity of estradioL 00:00: 00:00 mouth in [place] (ORTHO 00 :00 the Medical TRI-CYCLEN morning. [facility], 28,) 0.18/0.215/ 0.25 mg-25 mcg tablet norgestimat 2022-0 3- No [id number] 1{tbl} Take 1 Univers e-ethinyl 4-07 05-12 tablet by ity of estradioL 00:00: 00:00 mouth in [place] (ORTHO 00 :00 the Medical TRI-CYCLEN morning. [facility], 28,) 0.18/0.215/ 0.25 mg-25 mcg tablet No known 2022-0 No No known Unive rs medications 1-25 medication it y of 21:43: s [address] No known 2022-0 No No known Unive rs medications 1-25 medication it y of 21:43: s [address] No known 2022-0 No No known Unive rs medications 1-25 medication it y of 21:43: s [address] No known 2021-1 No No known Unive rs medications 2-22 medication it y of 15:02: s [address] No known 2021-05 No No known Unive rs medications 2-22 medication it y of 15:02: s [address] No known 2021-05 No No known Unive rs medications 2-22 medication it y of 15:02: s [address] No known 2021-05 No No known Unive rs medications 2-22 medication it y of 14:26: s [place] 30 [facility] No known 2021-05 No No known Unive rs medications 2-15 medication it y of 17:38: s [place] 11 [facility] oseltamivir 2021-05- No [id number] 75mg Take 1 Univers (TAMIFLU) 2-15 - capsule by ity of 75 mg 00:00: 05:59 mouth in [place] capsule 00 :00 the [facility] and 1 capsule in the evening. Do all this for 5 days. oseltamivir 2021-05- No [id number] 75mg Take 1 Univers (TAMIFLU) 2-15 - capsule by ity of 75 mg 00:00: 05:59 mouth in [place] capsule 00 :00 the [facility] and 1 capsule in the evening. Do all this for 5 days. oseltamivir 2021-05- No [id number] 75mg Take 1 Univers (TAMIFLU) 2-15 - capsule by ity of 75 mg 00:00: 05:59 mouth in [place] capsule 00 :00 the [facility] and 1 capsule in the evening. Do all this for 5 days. foLIC acid 2021-05 Yes 1mg 1 mg, Univer s (FOLATE) 2-13 Oral, ity of tablet 1 mg 15:00: [place] First dose Medical on Mon [place] 04/19/22 at 0900, Until Discontinu ed, Routine heparin 2021-05 Yes 5000U 5,000 Univers (porcine) 2-13 Units, ity of injection 02:00: [place] 5,000 Units 00 us, Q12H, Med ical First dose Branch on Mon04/18/22 at 2000, Until Discontinu ed, Routine acetaminoph 2021-05 Yes 650mg 650 mg, Un ramses en 2-12 Oral, ity of (TYLENOL) 16:31: Q6HPRN, [place] tablet 650 46 Starting Medic al mg on Mon12/22 at 1031, Until Discontinu ed, Routine, Pain (scale 1-3) LORazepam 2021-05 Yes 2mg 2 mg, Slow Un ramses (ATIVAN) 2-12 IV Push, ity of injection 2 16:30: PRN - SEE [place] mg 39 INSTRUCTIO Medical NS, 2 Branch doses, Starting on Mon04/18/22 at 1030, Until Discontinu ed, STAT, For seizure lasting two minutes or longer. lacosamide 2021-05 Yes [id number] 50mg Take 1 U nivers (VIMPAT) 50 2-08 tablet by ity of mg tablet 00:00: mouth [place] 00 every 8 Medical (eight) Branch hours. lacosamide 2021-05 Yes [id number] 50mg Take 1 U nivers (VIMPAT) 50 2-08 tablet by ity of mg tablet 00:00: mouth [place] 00 every 8 Medical (eight) Branch hours. lacosamide 2021-05- No [id number] 50mg Take 1 Univers (VIMPAT) 50 2-08 12-15 tablet by it y of mg tablet 00:00: 00:00 mouth [place] 00 :00 every 8 Medical (eight) Branch hours. lacosamide 2021-05 Yes [id number] 50mg Take 1 U nivers (VIMPAT) 50 2-07 tablet by ity of mg tablet 00:00: mouth [place] 00 every 8 Medical (eight) Branch hours. lacosamide 2021-05- No [id number] 50mg Take 1 Univers (VIMPAT) 50 2-07 12-08 tablet by it y of mg tablet 00:00: 00:00 mouth [place] 00 :00 every 8 Medical (eight) Branch hours. lacosamide 2021-05- No [id number] 50mg Take 1 Univers (VIMPAT) 50 2-07 12-08 tablet by it y of mg tablet 00:00: 00:00 mouth [place] 00 :00 every 8 Medical (eight) Branch hours. lacosamide 2021-05 Yes [id number] 50mg Take 1 U nivers (VIMPAT) 50 1-30 tablet by ity of mg tablet 00:00: mouth [place] 00 every 8 Medical (eight) Branch hours. lacosamide 2021-05- No [id number] 50mg Take 1 Univers (VIMPAT) 50 30 04-13 tablet by it y of mg tablet 00:00: 00:00 mouth [place] 00 :00 every 8 Medical (eight) Branch hours. gadobenate 2021-05- No [id number] .2mL/kg 0.2 mL/kg, Univers dimeglumine 06-06 Intravenou i ty of (MULTIHANCE 00:00: 23:52 s, ONCE, 1 [place] -10 mL) 00 :00 dose, On Medical injection Tue Branch 0.2 mL/kg 04/05/22 at 1800, Routine pantoprazol 2021-05 Yes 40mg 40 mg, Univ ers e -14 Oral, ity of (PROTONIX) 15:00: DAILY, [place] EC tablet 00 First dose Medi michael 40 mg on [facility] Branch 03/21/22 at 0900, Until Discontinu ed, Routine levETIRAcet 2021-05 Yes 1500mg 1,500 mg, Univers am (KEPPRA) 14 Oral, BID, it y of tablet 14:00: First dose [place] 1,500 mg 00 on [facility] 03/21/22 Branch at 0800, Until Discontinu ed, Routine heparin 2021-05 Yes 5000U 5,000 Univers (porcine) -14 Units, ity of injection 14:00: [place] 5,000 Units 00 us, Q12H, Med ical First dose Branch on [facility] 03/21/22 at 0800, Until Discontinu ed, Routine levETIRAcet 2021-05- No 1500mg 1,500 mg, Univers am (KEPPRA) -14 1114 IV ity of in NACL 06:15: 06:01 Piggyback, [place] (ISO-OS) 00 :00 ONCE, 1 Medical 1,500 dose, On Branch mg/100 mL [facility] RTU 03/21/22 at 0015, Administer over 15 Minutes, 100 mL topiramate 2021-05 Yes 25mg 25 mg, Unive rs (TOPAMAX) 1-14 Oral, BID, ity of tablet 25 05:45: First dose [place] mg 00 on [facility] 03/20/22 Branch at 2345, Until Discontinu ed, Routine
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
job change crew member approving Restricted medication : CARMEN TALBERT NaCl 0.9% 2021-05 Yes 1000mL at 75 Unive rs (NS) IV 1-14 mL/hr, IV ity of infusion 04:00: [place] 1,000 mL 00 CONTINUOUS Medic al , Starting Branch on [place] 03/20/22 at 2200, Until Discontinu ed, Routine LORazepam 2021-05 Yes 2mg 2 mg, Slow Un ramses (ATIVAN) -14 IV Push, ity of injection 2 03:59: PRN, 5 [place] mg 33 doses, Medical Starting Branch on [place] 03/20/22 at 2159, Until Discontinu ed, Routine, Seizures acetaminoph 2021-05 Yes 650mg 650 mg, Un ramses en -14 Oral, ity of (TYLENOL) 03:52: Q6HPRN, [place] tablet 650 20 Starting Medic al mg on [facility] 03/20/22 at 2152, Until Discontinu ed, Routine, Pain (scale 4-6) docusate 2021-05 Yes 100mg 100 mg, Unive rs (COLACE) 1-14 Oral, ity of capsule 100 03:52: QDAILYPRN, [place] mg 20 Starting Medical on [facility] 03/20/22 at 2152, Until Discontinu ed, Routine, Constipati on NaCl 0.9% 2021-05- No 1000mL at 999 Uni vers (NS) bolus -14 11-14 mL/hr, ity of infusion 00:15: 00:00 1,000 mL, [place] 1,000 mL 00 :00 IV Medical Infusion, Branch ONCE, 1 dose, On [place] 03/20/22 at 1815, STAT LORazepam 2021-05- No 2mg 2 mg, Slow U nivers (ATIVAN) 05-20-13 IV Push, ity of injection 2 23:45: 23:43 ONCE, 1 [place] mg 00 :00 dose, On [facility] [place] [facility] 03/20/22 at 1745, STAT lacosamide 2021-05 Yes [id number] 50mg Take 1 U nivers (VIMPAT) 50 1-10 tablet by ity of mg tablet 00:00: mouth [place] 00 the Medical morning Branch and 1 tablet in the evening. lacosamide 2021-05 Yes [id number] 50mg Take 1 U nivers (VIMPAT) 50 1-10 tablet by ity of mg tablet 00:00: [place] 00 the Medical morning Branch and 1 tablet in the evening. lacosamide 2021-05 Yes [id number] 50mg Take 1 U nivers (VIMPAT) 50 1-10 tablet by ity of mg tablet 00:00: [place] 00 the Medical morning Branch and 1 tablet in the evening. lacosamide 2021-05 Yes [id number] 50mg Take 1 U nivers (VIMPAT) 50 1-10 tablet by ity of mg tablet 00:00: [place] 00 the Medical morning Branch and 1 tablet in the evening. lacosamide 2021-05 Yes [id number] 50mg Take 1 U nivers (VIMPAT) 50 1-10 tablet by ity of mg tablet 00:00: [place] 00 the Medical morning Branch and 1 tablet in the evening. lacosamide 2021-05 Yes [id number] 50mg Take 1 U nivers (VIMPAT) 50 1-10 tablet by ity of mg tablet 00:00: [place] 00 the Medical morning Branch and 1 tablet in the evening. lacosamide 2021-05 Yes [id number] 50mg Take 1 U nivers (VIMPAT) 50 1-10 tablet by ity of mg tablet 00:00: [place] 00 the Medical morning Branch and 1 tablet in the evening. lacosamide 2021-05- No [id number] 50mg Take 1 Univers (VIMPAT) 50 1-10 11-30 tablet by it y of mg tablet 00:00: 00:00 mouth in [place] 00 :00 the Medical morning Branch and 1 tablet in the evening. topiramate 2021-05 Yes [id number] 25mg Take 1 Univers 25 mg 1-03 tablet by ity of tablet 00:00: mouth in [place] 00 the Medical morning Branch and 1 tablet in the evening. topiramate 2021-05 Yes [id number] 25mg Take 1 Univers 25 mg 1-03 tablet by ity of tablet 00:00: mouth in [place] 00 the Medical morning Branch and 1 tablet in the evening. topiramate 2021-05 Yes [id number] 25mg Take 1 Univers 25 mg 1-03 tablet by ity of tablet 00:00: mouth in [place] 00 the Medical morning Branch and 1 tablet in the evening. topiramate 2021-05 Yes [id number] 25mg Take 1 Univers 25 mg 1-03 tablet by ity of tablet 00:00: mouth in [place] 00 the Medical morning Branch and 1 tablet in the evening. topiramate 2021-05 Yes [id number] 25mg Take 1 Univers 25 mg 1-03 tablet by ity of tablet 00:00: mouth in [place] [address] the Medical morning Branch and 1 tablet in the evening. topiramate 2021-05 Yes [id number] 25mg Take 1 Univers 25 mg 1-03 tablet by ity of tablet 00:00: mouth in [place] [address] the Medical morning Branch and 1 tablet in the evening. topiramate 2021-05 Yes [id number] 25mg Take 1 Univers 25 mg 1-03 tablet by ity of tablet 00:00: mouth in [place] [address] the Medical morning Branch and 1 tablet in the evening. topiramate 2021-05 Yes [id number] 25mg Take 1 Univers 25 mg 1-03 tablet by ity of tablet 00:00: mouth in [place] 00 the Medical morning Branch and 1 tablet in the evening. topiramate 2021- Yes [id number] 25mg Take 1 Univers 25 mg 1-03 tablet by ity of tablet 00:00: mouth in [place] [address] the Medical morning Branch and 1 tablet in the evening. topiramate 2021- Yes [id number] 25mg Take 1 Univers 25 mg 1-03 tablet by ity of tablet 00:00: mouth in [place] [address] the Medical morning Branch and 1 tablet in the evening. topiramate 2021- Yes [id number] 25mg Take 1 Univers 25 mg 1-03 tablet by ity of tablet 00:00: mouth in [place] [address] the Medical morning Branch and 1 tablet in the evening. topiramate 2021- Yes [id number] 25mg Take 1 Univers 25 mg 1-03 tablet by ity of tablet 00:00: mouth in [place] 00 the Medical morning Branch and 1 tablet in the evening. topiramate 2021-05 Yes [id number] 25mg Take 1 Univers 25 mg 1-03 tablet by ity of tablet 00:00: mouth in [place] 00 the Medical morning Branch and 1 tablet in the evening. topiramate 2021-05 Yes [id number] 25mg Take 1 Univers 25 mg 1-03 tablet by ity of tablet 00:00: mouth in [place] 00 the [facility] morning Branch and 1 tablet in the evening. topiramate 2021-05- No [id number] 25mg Take 1 Univers 25 mg 1-03 12-15 tablet by ity of tablet 00:00: 00:00 mouth in [place] 00 :00 the [facility] morning Branch and 1 tablet in the evening. topiramate 0 Yes 25mg 25 mg, Unive rs (TOPAMAX) 01-31 Oral, ity of tablet 25 17:30: DAILY, [place] mg 00 First dose Medical on [facility] 01/31/22 at 1230, Until Discontinu ed, Routine
job change crew member approving Restricted medication : CECILIA VASQUEZ SERTraline Yes 25mg 25 mg, Unive rs (ZOLOFT) 01-31 Oral, ity of tablet 25 14:00: DAILY, [place] mg 00 First dose Medical on [facility] 01/31/22 at 0900, Until Discontinu ed, Routine foLIC acid 0 Yes 1mg 1 mg, Univer s (FOLATE) 01-31 Oral, ity of tablet 1 mg 14:00: DAILY, [place] 00 First dose Medical on [facility] 01/31/22 at 0900, Until Discontinu ed, Routine heparin 2021-0 Yes 5000U 5,000 Univers (porcine) 01-31 Units, ity of injection 13:00: [place] 5,000 Units 00 us, Q12H, Med ical First dose Branch on [facility] 01/31/22 at 0800, Until Discontinu ed, Routine levETIRAcet 2021-0 Yes 1500mg 1,500 mg, Univers am (KEPPRA) 01-31 Oral, BID, it y of tablet 13:00: First dose [place] 1,500 mg 00 on Mon Medical 01/31/22 at Branch 0800, Until Discontinu ed, Routine acetaminoph 0 Yes 650mg 650 mg, Un ramses en 01-31 Oral, ity of (TYLENOL) 04:06: Q6HPRN, [place] tablet 650 49 Starting Medic al mg on [facility] 01/30/22 at 2306, Until Discontinu ed, Routine, Pain (scale 4-6) docusate 0 Yes 100mg 100 mg, Unive rs (COLACE) 01-31 Oral, ity of capsule 100 04:06: QDAILYPRN, [place] mg 48 Starting Medical on [facility] 01/30/22 at 2306, Until Discontinu ed, Routine, Constipati on ondansetron 0 Yes 4mg 4 mg, Unive rs (ZOFRAN-ODT 01-31 Oral, ity of ) 04:06: Q8HPRN, [place] disintegrat 36 Starting Medi michael ing tablet on [facility] 4 mg 01/30/22 at 2306, Until Discontinu ed, Routine, Nausea and Vomiting (N/V) acetaminoph Yes 650mg 650 mg, Un ramses en 01-31 Oral, ity of (TYLENOL) 04:06: Q6HPRN, [place] tablet 650 15 Starting Medic al mg on [facility] 01/30/22 at 2306, Until Discontinu ed, Routine, Pain (scale 1-3), Temp > 38.5 C LORazepam 2021- No .5mg 0.5 mg, Univ ers (ATIVAN) 01-31 Slow IV ity of injection 01:30: 00:35 Push, [place] 0.5 mg 00 :00 ONCE, 1 Medical dose, On [facility] 01/30/22 at 2030, STAT
Is the medication being used for status epilepticu s? No topiramate 2022- No [id number] 25mg Take 1 Univers 25 mg 01-31 tablet by ity of tablet 00:00: 04:59 mouth in [place] 00 :00 the Medical morning Branch for 180 days. topiramate 2022- No [id number] 25mg Take 1 Univers 25 mg 01-31 tablet by ity of tablet 00:00: 04:59 mouth in [place] 00 :00 the Medical morning Branch for 180 days. topiramate 2022-0 2023- No [id number] 25mg Take 1 Univers 25 mg 9-26 03-26 tablet by ity of tablet 00:00: 04:59 mouth in [place] 00 :00 the [facility] morning Branch for 180 days. topiramate 2022-0 2023- No [id number] 25mg Take 1 Univers 25 mg 9-26 03-26 tablet by ity of tablet 00:00: 04:59 mouth in [place] 00 :00 the [facility] morning Branch for 180 days. topiramate 2022-0 2023- No [id number] 25mg Take 1 Univers 25 mg 9-26 03-26 tablet by ity of tablet 00:00: 04:59 mouth in [place] 00 :00 the [facility] [place] [facility] ER Branch for 180 days. topiramate 2022-0 2023- No [id number] 25mg Take 1 Univers 25 mg 9-26 03-26 tablet by ity of tablet 00:00: 04:59 mouth in [place] 00 :00 the [facility] [place] [facility] for 180 days. topiramate 2022-0 2023- No [id number] 25mg Take 1 Univers 25 mg 9-26 03-26 tablet by ity of tablet 00:00: 04:59 mouth in [place] 00 :00 the [facility] [place] [facility] for 180 days. topiramate 2022-0 2023- No [id number] 25mg Take 1 Univers 25 mg 9-26 03-26 tablet by ity of tablet 00:00: 04:59 mouth in [place] 00 :00 the [facility] [place] [facility] for 180 days. topiramate 2022-0 2023- No [id number] 25mg Take 1 Univers 25 mg 9-26 03-26 tablet by ity of tablet 00:00: 04:59 mouth in [place] 00 :00 the [facility] morning Branch for 180 days. topiramate 2022-0 2023- No [id number] 25mg Take 1 Univers 25 mg 9-26 03-26 tablet by ity of tablet 00:00: 04:59 mouth in [place] 00 :00 the [facility] morning Branch for 180 days. topiramate 2022-0 2023- No [id number] 25mg Take 1 Univers 25 mg 9-26 03-26 tablet by ity of tablet 00:00: 04:59 mouth in [place] 00 :00 the [facility] [place] [facility] for 180 days. topiramate 2021-2021- No [id number] 25mg Take 1 Univers 25 mg 01-31 tablet by ity of tablet 00:00: 00:00 mouth in [place] 00 :00 the [facility] [place] [facility] for 180 days. topiramate 2021-0 2021- No [id number] 25mg Take 1 Univers 25 mg 01-31 tablet by ity of tablet 00:00: 00:00 mouth in [place] 00 :00 the [facility] [place] [facility] for 180 days. levETIRAcet 2021- No 1000mg 1,000 mg, Univers am (KEPPRA) 01-31 IV ity of in NACL 00:00: 23:38 Piggyback, [place] (ISO-OS) 00 :00 ONCE, 1 Medical 1,000 dose, On Branch mg/100 mL [place] RTU 01/30/22 at 1900, Administer over 15 Minutes, 100 mL NaCl 0.9% 2021- No 1000mL at 999 Uni vers (NS) bolus 01-30 mL/hr, ity of infusion 22:30: 23:15 1,000 mL, [place] 1,000 mL 00 :00 IV Medical Infusion, Branch ONCE, 1 dose, On 01/30/22 at 1730, ALEKSANDAR LORazepam No .5mg 0.5 mg, Univ ers (ATIVAN) 01-30 Slow IV ity of injection 22:00: 21:59 Push, [place] 0.5 mg 00 :00 ONCE, 1 Medical dose, On Branch 01/30/22 at 1700, STAT
Is the medication being used for status epilepticu s? No levETIRAcet 2022- No [id number] 1500mg Take 2 Univers am 750 mg 01-27 tablets by ity of tablet 00:00: 04:59 mouth in [place] 00 :00 the [facility] [place] [facility] ER Branch and 2 tablets in the evening. Do all this for 180 days. foLIC acid 2022- No [id number] 1mg Take 1 Univers 1 mg tablet 01-27 tablet by it y of 00:00: 04:59 mouth in [place] 00 :00 [facility] for 180 days. levETIRAcet 2021-2022- No [id number] 1500mg Take 2 Univers am 750 mg 01-27 tablets by ity of tablet 00:00: 04:59 mouth in [place] 00 :00 [facility] and 2 tablets in the evening. Do all this for 180 days. foLIC acid 2021-2022- No [id number] 1mg Take 1 Univers 1 mg tablet 01-27 tablet by it y of 00:00: 04:59 mouth in [place] 00 :00 [facility] for 180 days. levETIRAcet 2021-0 2022- No [id number] 1500mg Take 2 Univers am 750 mg 01-27 tablets by ity of tablet 00:00: 04:59 mouth in [place] 00 :00 [facility] and 2 tablets in the evening. Do all this for 180 days. foLIC acid 2021-2022- No [id number] 1mg Take 1 Univers 1 mg tablet 01-27 tablet by it y of 00:00: 04:59 mouth in [place] 00 :00 [facility] for 180 days. levETIRAcet 2021-0 2022- No [id number] 1500mg Take 2 Univers am 750 mg 01-27 tablets by ity of tablet 00:00: 04:59 mouth in [place] 00 :00 [facility] and 2 tablets in the evening. Do all this for 180 days. foLIC acid 2022- No [id number] 1mg Take 1 Univers 1 mg tablet 01-27 tablet by it y of 00:00: 04:59 mouth in [place] 00 :00 [facility] for 180 days. levETIRAcet 2021-0 2022- No [id number] 1500mg Take 2 Univers am 750 mg 01-27 tablets by ity of tablet 00:00: 04:59 mouth in [place] 00 :00 [facility] and 2 tablets in the evening. Do all this for 180 days. foLIC acid 2021-2022- No [id number] 1mg Take 1 Univers 1 mg tablet 01-27 tablet by it y of 00:00: 04:59 mouth in [place] 00 :00 [facility] for 180 days. levETIRAcet 2022022- No [id number] 1500mg Take 2 Univers am 750 mg 01-27 tablets by ity of tablet 00:00: 04:59 mouth in [place] 00 :00 the [facility] morning Branch and 2 tablets in the evening. Do all this for 180 days. foLIC acid 2022- No [id number] 1mg Take 1 Univers 1 mg tablet 01-27 tablet by it y of 00:00: 04:59 mouth in [place] 00 :00 the [facility] [place] [facility] for 180 days. levETIRAcet 2022- No [id number] 1500mg Take 2 Univers am 750 mg 01-27 tablets by ity of tablet 00:00: 04:59 mouth in [place] 00 :00 the [facility] [place] [facility] and 2 tablets in the evening. Do all this for 180 days. foLIC acid 2022- No [id number] 1mg Take 1 Univers 1 mg tablet 01-27 tablet by it y of 00:00: 04:59 mouth in [place] 00 :00 the [facility] [place] [facility] for 180 days. levETIRAcet 2022- No [id number] 1500mg Take 2 Univers am 750 mg 01-27 tablets by ity of tablet 00:00: 04:59 mouth in [place] 00 :00 the [facility] [place] [facility] and 2 tablets in the evening. Do all this for 180 days. foLIC acid 2022- No [id number] 1mg Take 1 Univers 1 mg tablet 01-27 tablet by it y of 00:00: 04:59 mouth in [place] 00 :00 the [facility] [place] [facility] for 180 days. levETIRAcet 2022- No [id number] 1500mg Take 2 Univers am 750 mg 01-27 tablets by ity of tablet 00:00: 04:59 mouth in [place] 00 :00 the [facility] [place] [facility] and 2 tablets in the evening. Do all this for 180 days. foLIC acid 2022- No [id number] 1mg Take 1 Univers 1 mg tablet 01-27 tablet by it y of 00:00: 04:59 mouth in [place] 00 :00 the [facility] [place] [facility] for 180 days. levETIRAcet 2022- No [id number] 1500mg Take 2 Univers am 750 mg 01-27 tablets by ity of tablet 00:00: 04:59 mouth in [place] 00 :00 the Medical morning Branch and 2 tablets in the evening. Do all this for 180 days. foLIC acid 2022- No [id number] 1mg Take 1 Univers 1 mg tablet 01-27 tablet by it y of 00:00: 04:59 mouth in [place] 00 :00 the [facility] morning Branch for 180 days. levETIRAcet 2021-2022- No [id number] 1500mg Take 2 Univers am 750 mg 01-27 tablets by ity of tablet 00:00: 04:59 mouth in [place] 00 :00 the [facility] morning Branch and 2 tablets in the evening. Do all this for 180 days. foLIC acid 2022- No [id number] 1mg Take 1 Univers 1 mg tablet 01-27 tablet by it y of 00:00: 04:59 mouth in [place] 00 :00 the [facility] [place] [facility] for 180 days. levETIRAcet 2022- No [id number] 1500mg Take 2 Univers am 750 mg 01-27 tablets by ity of tablet 00:00: 04:59 mouth in [place] 00 :00 the [facility] morning Branch and 2 tablets in the evening. Do all this for 180 days. foLIC acid 2022- No [id number] 1mg Take 1 Univers 1 mg tablet 01-27 tablet by it y of 00:00: 04:59 mouth in [place] 00 :00 the [facility] [place] [facility] for 180 days. levETIRAcet 2022- No [id number] 1500mg Take 2 Univers am 750 mg 01-27 tablets by ity of tablet 00:00: 04:59 mouth in [place] 00 :00 the [facility] morning Branch and 2 tablets in the evening. Do all this for 180 days. foLIC acid 2022- No [id number] 1mg Take 1 Univers 1 mg tablet 01-27 tablet by it y of 00:00: 04:59 mouth in [place] 00 :00 the [facility] [place] [facility] for 180 days. levETIRAcet 2021-0 2022- No [id number] 1500mg Take 2 Univers am 750 mg 01-27 tablets by ity of tablet 00:00: 04:59 mouth in [place] 00 :00 the [facility] [place] [facility] ER Branch and 2 tablets in the evening. Do all this for 180 days. foLIC acid 2021-2022- No [id number] 1mg Take 1 Univers 1 mg tablet 01-27 tablet by it y of 00:00: 04:59 mouth in [place] 00 :00 the [facility] [place] [facility] for 180 days. levETIRAcet 2021-0 2022- No [id number] 1500mg Take 2 Univers am 750 mg 01-27 tablets by ity of tablet 00:00: 04:59 mouth in [place] 00 :00 the [facility] [place] [facility] and 2 tablets in the evening. Do all this for 180 days. foLIC acid 2021-2022- No [id number] 1mg Take 1 Univers 1 mg tablet 01-27 tablet by it y of 00:00: 04:59 mouth in [place] 00 :00 the [facility] [place] [facility] for 180 days. levETIRAcet 2021-0 2022- No [id number] 1500mg Take 2 Univers am 750 mg 01-27 tablets by ity of tablet 00:00: 04:59 mouth in [place] 00 :00 the [facility] [place] [facility] and 2 tablets in the evening. Do all this for 180 days. foLIC acid 2022- No [id number] 1mg Take 1 Univers 1 mg tablet 01-27 tablet by it y of 00:00: 04:59 mouth in [place] 00 :00 the [facility] [place] [facility] for 180 days. levETIRAcet 2021-0 2022- No [id number] 1500mg Take 2 Univers am 750 mg 01-27 tablets by ity of tablet 00:00: 04:59 mouth in [place] 00 :00 the [facility] [place] [facility] and 2 tablets in the evening. Do all this for 180 days. foLIC acid 2021-0 2022- No [id number] 1mg Take 1 Univers 1 mg tablet 01-27 tablet by it y of 00:00: 04:59 mouth in [place] 00 :00 the [facility] [place] [facility] for 180 days. levETIRAcet 2021-0 2022- No [id number] 1500mg Take 2 Univers am 750 mg 01-27 tablets by ity of tablet 00:00: 04:59 mouth in [place] 00 :00 the [facility] [place] [facility] and 2 tablets in the evening. Do all this for 180 days. foLIC acid 2022- No [id number] 1mg Take 1 Univers 1 mg tablet 01-27 tablet by it y of 00:00: 04:59 mouth in [place] 00 :00 the [facility] [place] [facility] for 180 days. levETIRAcet 2022- No [id number] 1500mg Take 2 Univers am 750 mg 01-27 tablets by ity of tablet 00:00: 04:59 mouth in [place] 00 :00 the [facility] [place] [facility] and 2 tablets in the evening. Do all this for 180 days. foLIC acid 2022- No [id number] 1mg Take 1 Univers 1 mg tablet 01-27 tablet by it y of 00:00: 04:59 mouth in [place] 00 :00 the [facility] [place] [facility] for 180 days. levETIRAcet 2022- No [id number] 1500mg Take 2 Univers am 750 mg 01-27 tablets by ity of tablet 00:00: 04:59 mouth in [place] 00 :00 the [facility] [place] [facility] and 2 tablets in the evening. Do all this for 180 days. foLIC acid 2022- No [id number] 1mg Take 1 Univers 1 mg tablet 01-27 tablet by it y of 00:00: 04:59 mouth in [place] 00 :00 the [facility] [place] [facility] for 180 days. levETIRAcet 2022- No [id number] 1500mg Take 2 Univers am 750 mg 01-27 tablets by ity of tablet 00:00: 04:59 mouth in [place] 00 :00 the [facility] [place] [facility] and 2 tablets in the evening. Do all this for 180 days. foLIC acid 2022- No [id number] 1mg Take 1 Univers 1 mg tablet 01-27 tablet by it y of 00:00: 04:59 mouth in [place] 00 :00 the [facility] [place] [facility] for 180 days. levETIRAcet 2022- No [id number] 1500mg Take 2 Univers am 750 mg 01-27 tablets by ity of tablet 00:00: 04:59 mouth in [place] 00 :00 the [facility] [place] [facility] and 2 tablets in the evening. Do all this for 180 days. foLIC acid 2022- No [id number] 1mg Take 1 Univers 1 mg tablet 01-27 tablet by it y of 00:00: 04:59 mouth in [place] 00 :00 the [facility] morning [place] for 180 days. levETIRAcet 2021-2022- No [id number] 1500mg Take 2 Univers am 750 mg 01-27 tablets by ity of tablet 00:00: 04:59 mouth in [place] 00 :00 the [facility] morning Branch and 2 tablets in the evening. Do all this for 180 days. foLIC acid 2022- No [id number] 1mg Take 1 Univers 1 mg tablet 01-27 tablet by it y of 00:00: 04:59 mouth in [place] 00 :00 the [facility] [place] [facility] for 180 days. levETIRAcet 2021-0 2022- No [id number] 1500mg Take 2 Univers am 750 mg 01-27 tablets by ity of tablet 00:00: 04:59 mouth in [place] 00 :00 the [facility] [place] [facility] [facility] and 2 tablets in the evening. Do all this for 180 days. foLIC acid 2022- No [id number] 1mg Take 1 [facility] 1 mg tablet 01-27 tablet by it y of 00:00: 04:59 mouth in [place] 00 :00 the [facility] for 180 days. levETIRAcet 2021-2022- No [id number] 1500mg Take 2 [facility] am 750 mg 01-27 tablets by ity of tablet 00:00: 04:59 mouth in [place] 00 :00 the [facility] and 2 tablets in the evening. Do all this for 180 days. foLIC acid 2022- No [id number] 1mg Take 1 [facility] 1 mg tablet 01-27 tablet by it y of 00:00: 04:59 mouth in [place] 00 :00 the [facility] for 180 days. levETIRAcet 2021-2022- No [id number] 1500mg Take 2 [facility] am 750 mg 01-27 tablets by ity of tablet 00:00: 04:59 mouth in [place] 00 :00 the [facility] morning Branch and 2 tablets in the evening. Do all this for 180 days. foLIC acid 2021-2022- No [id number] 1mg Take 1 [facility] 1 mg tablet 01-27 tablet by it y of 00:00: 04:59 mouth in [place] 00 :00 the [facility] for 180 days. levETIRAcet 2021-2022- No [id number] 1500mg Take 2 [facility] am 750 mg 01-27 tablets by ity of tablet 00:00: 04:59 mouth in [place] 00 :00 [facility] and 2 tablets in the evening. Do all this for 180 days. foLIC acid 2022- No [id number] 1mg Take 1 [facility] 1 mg tablet 01-27 tablet by it y of 00:00: 04:59 mouth in [place] 00 :00 [facility] for 180 days. levETIRAcet 2021-0 2022- No [id number] 1500mg Take 2 [facility] am 750 mg 01-27 tablets by ity of tablet 00:00: 04:59 mouth in [place] 00 :00 [facility] and 2 tablets in the evening. Do all this for 180 days. foLIC acid 2022- No [id number] 1mg Take 1 [facility] 1 mg tablet 01-27 tablet by it y of 00:00: 04:59 mouth in [place] 00 :00 [facility] for 180 days. levETIRAcet 2021-0 2022- No [id number] 1500mg Take 2 [facility] am 750 mg 01-27 tablets by ity of tablet 00:00: 04:59 mouth in [place] 00 :00 [facility] and 2 tablets in the evening. Do all this for 180 days. foLIC acid 2022- No [id number] 1mg Take 1 [facility] 1 mg tablet 01-27 tablet by it y of 00:00: 04:59 mouth in [place] 00 :00 [facility] for 180 days. levETIRAcet 2021-0 2022- No [id number] 1500mg Take 2 [facility] am 750 mg 01-27 tablets by ity of tablet 00:00: 04:59 mouth in [place] 00 :00 [facility] and 2 tablets in the evening. Do all this for 180 days. foLIC acid 2022- No [id number] 1mg Take 1 [facility] 1 mg tablet 01-27 tablet by it y of 00:00: 04:59 mouth in [place] 00 :00 [facility] for 180 days. levETIRAcet 2022021- No [id number] 1500mg Take 2 [facility] am 750 mg 01-27-15 tablets by ity of tablet 00:00: 00:00 mouth in [place] 00 :00 the Medical morning Branch and 2 tablets in the evening. Do all this for 180 days. foLIC acid 2021- No [id number] 1mg Take 1 [facility] 1 mg tablet 01-2715 tablet by it y of 00:00: 00:00 mouth in [place] 00 :00 the [facility] morning Branch for 180 days. levETIRAcet 2021- No 750mg Take 750 [facility] am (KEPPRA) 12-24 08-19 mg by ity of 750 mg 15:54: 00:00 mouth in [place] tablet 35 :00 the Medical morning Branch and 750 mg in the evening. levETIRAcet Yes [id number] 1000mg Take 1 [facility] am (KEPPRA) 12-24 tablet by ity of 1,000 mg 00:00: mouth in [place] tablet 00 the Medical morning Branch and 1 tablet in the evening. levETIRAcet Yes [id number] 1000mg Take 1 [facility] am (KEPPRA) 12-24 tablet by ity of 1,000 mg 00:00: mouth in [place] tablet 00 the Medical morning Branch and 1 tablet in the evening. levETIRAcet Yes [id number] 1000mg Take 1 [facility] am (KEPPRA) 12-24 tablet by ity of 1,000 mg 00:00: mouth in [place] tablet 00 the Medical morning Branch and 1 tablet in the evening. levETIRAcet 2021- No [id number] 1000mg Take 1 [facility] am (KEPPRA) 12-24 tablet by it y of 1,000 mg 00:00: 00:[place] :00 the [facility] morning [facility] and 1 tablet in the evening. levETIRAcet 2021- No [id number] 1000mg Take 1 [facility] am (KEPPRA) 12-24 tablet by it y of 1,000 mg 00:00: 00:[place] 00 :00 the [facility] morning [facility] and 1 tablet in the evening. levETIRAcet 2021- No [id number] 1000mg Take 1 [facility] am (KEPPRA) 12-24 tablet by it y of 1,000 mg 00:00: 00:00 mouth in [facility] tablet 00 :00 the Medical morning Branch and 1 tablet in the evening. SERTraline 2021-0 Yes [id number] 25mg Take 1 U nivers 25 mg 8-01 tablet by ity of tablet 00:00: mouth in [place] 00 the Medical morning. Branch SERTraline 2021-0 Yes [id number] 25mg Take 1 U nivers 25 mg 8-01 tablet by ity of tablet 00:00: mouth in [place] 00 the Medical morning. Branch SERTraline 2021-0 Yes [id number] 25mg Take 1 U nivers 25 mg 8-01 tablet by ity of tablet 00:00: mouth in [place] 00 the Medical morning. Branch SERTraline 2021-0 Yes [id number] 25mg Take 1 U nivers 25 mg 8-01 tablet by ity of tablet 00:00: mouth in [place] 00 the Medical morning. Branch SERTraline 2021-0 Yes [id number] 25mg Take 1 U nivers 25 mg 8-01 tablet by ity of tablet 00:00: mouth in [place] the Medical morning. Branch SERTraline 2021-0 Yes [id number] 25mg Take 1 U nivers 25 mg 8-01 tablet by ity of tablet 00:00: mouth in [place] 00 the Medical morning. Branch SERTraline 2021-0 Yes [id number] 25mg Take 1 U nivers 25 mg 8-01 tablet by ity of tablet 00:00: mouth in [place] 00 the Medical morning. Branch SERTraline 2021-0 Yes [id number] 25mg Take 1 U nivers 25 mg 8-01 tablet by ity of tablet 00:00: mouth in [place] 00 the Medical morning. Branch SERTraline 2021-0 Yes [id number] 25mg Take 1 U nivers 25 mg 8-01 tablet by ity of tablet 00:00: mouth in [place] 00 the Medical morning. Branch SERTraline 2021-0 Yes [id number] 25mg Take 1 U nivers 25 mg 8-01 tablet by ity of tablet 00:00: mouth in [place] 00 the Medical morning. Branch SERTraline 2021-0 Yes [id number] 25mg Take 1 U nivers 25 mg 8-01 tablet by ity of tablet 00:00: mouth in [place] 00 the Medical morning. Branch SERTraline 0 Yes [id number] 25mg Take 1 U nivers 25 mg 8-01 tablet by ity of tablet 00:00: mouth in [place] 00 the Medical morning. Branch SERTraline 2021- No [id number] 25mg Take 1 [facility] 25 mg 8- 10-05 tablet by ity of tablet 00:00: 00:00 mouth in [place] 00 :00 the Medical morning. Branch SERTraline 2021- No [id number] 25mg Take 1 [facility] 25 mg 8- 10-05 tablet by ity of tablet 00:00: 00:00 mouth in [place] 00 :00 the Medical morning. Branch ondansetron 0 Yes [id number] 4mg Take 1 [facility] (ZOFRAN 6-23 tablet by ity of ODT) 4 mg 00:00: mouth [place] disintegrat 00 every 8 Medic al ing tablet (eight) Branch hours as needed for Nausea and Vomiting (N/V). ondansetron 2020-0 Yes [id number] 4mg Take 1 [facility] (ZOFRAN 6-23 tablet by ity of ODT) 4 mg 00:00: mouth [place] disintegrat 00 every 8 Medic al ing tablet (eight) Branch hours as needed for Nausea and Vomiting (N/V). ondansetron 2020-0 Yes [id number] 4mg Take 1 [facility] (ZOFRAN 6-23 tablet by ity of ODT) 4 mg 00:00: mouth [place] disintegrat 00 every 8 Medic al ing tablet (eight) Branch hours as needed for Nausea and Vomiting (N/V). ondansetron 2020-0 Yes [id number] 4mg Take 1 [facility] (ZOFRAN 6-23 tablet by ity of ODT) 4 mg 00:00: mouth [place] disintegrat 00 every 8 Medic al ing tablet (eight) Branch hours as needed for Nausea and Vomiting (N/V). ondansetron 2020-0 Yes [id number] 4mg Take 1 [facility] (ZOFRAN 6-23 tablet by ity of ODT) 4 mg 00:00: mouth [place] disintegrat 00 every 8 Medic al ing tablet (eight) Branch hours as needed for Nausea and Vomiting (N/V). ondansetron 2020-0 Yes [id number] 4mg Take 1 [facility] (ZOFRAN 6-23 tablet by ity of ODT) 4 mg 00:00: mouth [place] disintegrat 00 every 8 Medic al ing tablet (eight) Branch hours as needed for Nausea and Vomiting (N/V). ondansetron 2020-0 Yes [id number] 4mg Take 1 [facility] (ZOFRAN 6-23 tablet by ity of ODT) 4 mg 00:00: mouth [place] disintegrat 00 every 8 Medic al ing tablet (eight) Branch hours as needed for Nausea and Vomiting (N/V). ondansetron 2020-0 Yes [id number] 4mg Take 1 [facility] (ZOFRAN 6-23 tablet by ity of ODT) 4 mg 00:00: mouth [place] disintegrat 00 every 8 Medic al ing tablet (eight) Branch hours as needed for Nausea and Vomiting (N/V). ondansetron 2020-0 Yes [id number] 4mg Take 1 [facility] (ZOFRAN 6-23 tablet by ity of ODT) 4 mg 00:00: mouth [place] disintegrat 00 every 8 Medic al ing tablet (eight) Branch hours as needed for Nausea and Vomiting (N/V). ondansetron 2020-0 Yes [id number] 4mg Take 1 [facility] (ZOFRAN 6-23 tablet by ity of ODT) 4 mg 00:00: mouth [place] disintegrat 00 every 8 Medic al ing tablet (eight) Branch hours as needed for Nausea and Vomiting (N/V). ondansetron 2020-0 Yes [id number] 4mg Take 1 [facility] (ZOFRAN 6-23 tablet by ity of ODT) 4 mg 00:00: mouth [place] disintegrat 00 every 8 Medic al ing tablet (eight) Branch hours as needed for Nausea and Vomiting (N/V). ondansetron 2021-0 Yes [id number] 4mg Take 1 [facility] (ZOFRAN 6-23 tablet by ity of ODT) 4 mg 00:00: mouth [place] disintegrat 00 every 8 Medic al ing tablet (eight) Branch hours as needed for Nausea and Vomiting (N/V). ondansetron 1-0 Yes [id number] 4mg Take 1 [facility] (ZOFRAN 6-23 tablet by ity of ODT) 4 mg 00:00: mouth [place] disintegrat 00 every 8 Medic al ing tablet (eight) Branch hours as needed for Nausea and Vomiting (N/V). ondansetron 1-0 Yes [id number] 4mg Take 1 [facility] (ZOFRAN 6-23 tablet by ity of ODT) 4 mg 00:00: mouth [place] disintegrat 00 every 8 Medic al ing tablet (eight) Branch hours as needed for Nausea and Vomiting (N/V). ondansetron 202-0 Yes [id number] 4mg Take 1 [facility] (ZOFRAN 6-23 tablet by ity of ODT) 4 mg 00:00: mouth [place] disintegrat 00 every 8 Medic al ing tablet (eight) Branch hours as needed for Nausea and Vomiting (N/V). ondansetron 2020-0 Yes [id number] 4mg Take 1 [facility] (ZOFRAN 6-23 tablet by ity of ODT) 4 mg 00:00: mouth [place] disintegrat 00 every 8 Medic al ing tablet (eight) Branch hours as needed for Nausea and Vomiting (N/V). ondansetron 2020-0 Yes [id number] 4mg Take 1 [facility] (ZOFRAN 6-23 tablet by ity of ODT) 4 mg 00:00: mouth [place] disintegrat 00 every 8 Medic al ing tablet (eight) Branch hours as needed for Nausea and Vomiting (N/V). ondansetron 2020-0 Yes [id number] 4mg Take 1 [facility] (ZOFRAN 6-23 tablet by ity of ODT) 4 mg 00:00: mouth [place] disintegrat 00 every 8 Medic al ing tablet (eight) Branch hours as needed for Nausea and Vomiting (N/V). ondansetron 1-0 Yes [id number] 4mg Take 1 [facility] (ZOFRAN 6-23 tablet by ity of ODT) 4 mg 00:00: mouth [place] disintegrat 00 every 8 Medic al ing tablet (eight) Branch hours as needed for Nausea and Vomiting (N/V). ondansetron 2021-0 Yes [id number] 4mg Take 1 [facility] (ZOFRAN 6-23 tablet by ity of ODT) 4 mg 00:00: mouth [place] disintegrat 00 every 8 Medic al ing tablet (eight) Branch hours as needed for Nausea and Vomiting (N/V). ondansetron 1-0 Yes [id number] 4mg Take 1 [facility] (ZOFRAN 6-23 tablet by ity of ODT) 4 mg 00:00: mouth [place] disintegrat 00 every 8 Medic al ing tablet (eight) Branch hours as needed for Nausea and Vomiting (N/V). ondansetron 202-0 Yes [id number] 4mg Take 1 [facility] (ZOFRAN 6-23 tablet by ity of ODT) 4 mg 00:00: mouth [place] disintegrat 00 every 8 Medic al ing tablet (eight) Branch hours as needed for Nausea and Vomiting (N/V). ondansetron 2020-0 Yes [id number] 4mg Take 1 [facility] (ZOFRAN 6-23 tablet by ity of ODT) 4 mg 00:00: mouth [place] disintegrat 00 every 8 Medic al ing tablet (eight) Branch hours as needed for Nausea and Vomiting (N/V). ondansetron 2020-0 Yes [id number] 4mg Take 1 [facility] (ZOFRAN 6-23 tablet by ity of ODT) 4 mg 00:00: mouth [place] disintegrat 00 every 8 Medic al ing tablet (eight) Branch hours as needed for Nausea and Vomiting (N/V). ondansetron 2020-0 Yes [id number] 4mg Take 1 [facility] (ZOFRAN 6-23 tablet by ity of ODT) 4 mg 00:00: mouth [place] disintegrat 00 every 8 Medic al ing tablet (eight) Branch hours as needed for Nausea and Vomiting (N/V). ondansetron 2020-0 Yes [id number] 4mg Take 1 [facility] (ZOFRAN 6-23 tablet by ity of ODT) 4 mg 00:00: mouth [place] disintegrat 00 every 8 Medic al ing tablet (eight) Branch hours as needed for Nausea and Vomiting (N/V). ondansetron 2020-0 Yes [id number] 4mg Take 1 [facility] (ZOFRAN 6-23 tablet by ity of ODT) 4 mg 00:00: mouth [place] disintegrat 00 every 8 Medic al ing tablet (eight) Branch hours as needed for Nausea and Vomiting (N/V). ondansetron 2020-0 Yes [id number] 4mg Take 1 [facility] (ZOFRAN 6-23 tablet by ity of ODT) 4 mg 00:00: mouth [place] disintegrat 00 every 8 Medic al ing tablet (eight) Branch hours as needed for Nausea and Vomiting (N/V). ondansetron 2020-0 Yes [id number] 4mg Take 1 [facility] (ZOFRAN 6-23 tablet by ity of ODT) 4 mg 00:00: mouth [place] disintegrat 00 every 8 Medic al ing tablet (eight) Branch hours as needed for Nausea and Vomiting (N/V). ondansetron 2020-0 Yes [id number] 4mg Take 1 [facility] (ZOFRAN 6-23 tablet by ity of ODT) 4 mg 00:00: mouth [place] disintegrat 00 every 8 Medic al ing tablet (eight) Branch hours as needed for Nausea and Vomiting (N/V). ondansetron 2020-0 Yes [id number] 4mg Take 1 [facility] (ZOFRAN 6-23 tablet by ity of ODT) 4 mg 00:00: mouth [place] disintegrat 00 every 8 Medic al ing tablet (eight) Branch hours as needed for Nausea and Vomiting (N/V). ondansetron 2020-0 Yes [id number] 4mg Take 1 [facility] (ZOFRAN 6-23 tablet by ity of ODT) 4 mg 00:00: mouth [place] disintegrat 00 every 8 Medic al ing tablet (eight) Branch hours as needed for Nausea and Vomiting (N/V). ondansetron 2020-0 Yes [id number] 4mg Take 1 [facility] (ZOFRAN 6-23 tablet by ity of ODT) 4 mg 00:00: mouth [place] disintegrat 00 every 8 Medic al ing tablet (eight) Branch hours as needed for Nausea and Vomiting (N/V). ondansetron 2020-0 2022- No [id number] 4mg Take 1 [facility] (ZOFRAN 6-23 12-15 tablet by ity of ODT) 4 mg 00:00: 00:00 mouth [place] disintegrat 00 :00 every 8 Medic al ing tablet (eight) Branch hours as needed for Nausea and Vomiting (N/V). acetaminoph 2020-0 Yes [id number] 650mg Take 2 [facility] en 325 mg 6-20 tablets by ity of tablet 00:00: mouth [place] 00 every 6 Medical (six) Branch hours as needed for Pain (scale 1-3) or Temp > 38.5 C. acetaminoph 2021-0 Yes [id number] 650mg Take 2 [facility] en 325 mg 6-20 tablets by ity of tablet 00:00: mouth [place] 00 every 6 Medical (six) Branch hours as needed for Pain (scale 1-3) or Temp > 38.5 C. acetaminoph 2021-0 Yes [id number] 650mg Take 2 [facility] en 325 mg 6-20 tablets by ity of tablet 00:00: mouth [place] 00 every 6 Medical (six) Branch hours as needed for Pain (scale 1-3) or Temp > 38.5 C. acetaminoph 2021-0 Yes [id number] 650mg Take 2 [facility] en 325 mg 6-20 tablets by ity of tablet 00:00: mouth [place] 00 every 6 Medical (six) Branch hours as needed for Pain (scale 1-3) or Temp > 38.5 C. acetaminoph 2021-0 Yes [id number] 650mg Take 2 [facility] en 325 mg 6-20 tablets by ity of tablet 00:00: mouth [place] 00 every 6 Medical (six) Branch hours as needed for Pain (scale 1-3) or Temp > 38.5 C. acetaminoph 2021-0 Yes [id number] 650mg Take 2 [facility] en 325 mg 6-20 tablets by ity of tablet 00:00: mouth [place] 00 every 6 Medical (six) Branch hours as needed for Pain (scale 1-3) or Temp > 38.5 C. acetaminoph 2021-0 Yes [id number] 650mg Take 2 [facility] en 325 mg 6-20 tablets by ity of tablet 00:00: mouth [place] 00 every 6 Medical (six) Branch hours as needed for Pain (scale 1-3) or Temp > 38.5 C. acetaminoph 2021-0 Yes [id number] 650mg Take 2 [facility] en 325 mg 6-20 tablets by ity of tablet 00:00: mouth [place] 00 every 6 Medical (six) Branch hours as needed for Pain (scale 1-3) or Temp > 38.5 C. acetaminoph 2021-0 Yes [id number] 650mg Take 2 [facility] en 325 mg 6-20 tablets by ity of tablet 00:00: mouth [place] 00 every 6 Medical (six) Branch hours as needed for Pain (scale 1-3) or Temp > 38.5 C. acetaminoph 2021-0 Yes [id number] 650mg Take 2 [facility] en 325 mg 6-20 tablets by ity of tablet 00:00: mouth [place] 00 every 6 Medical (six) Branch hours as needed for Pain (scale 1-3) or Temp > 38.5 C. acetaminoph 2021-0 Yes [id number] 650mg Take 2 [facility] en 325 mg 6-20 tablets by ity of tablet 00:00: mouth [place] 00 every 6 Medical (six) Branch hours as needed for Pain (scale 1-3) or Temp > 38.5 C. acetaminoph 2021-0 Yes [id number] 650mg Take 2 [facility] en 325 mg 6-20 tablets by ity of tablet 00:00: mouth [place] 00 every 6 Medical (six) Branch hours as needed for Pain (scale 1-3) or Temp > 38.5 C. acetaminoph 2021-0 Yes [id number] 650mg Take 2 [facility] en 325 mg 6-20 tablets by ity of tablet 00:00: mouth [place] 00 every 6 Medical (six) Branch hours as needed for Pain (scale 1-3) or Temp > 38.5 C. acetaminoph 2021-0 Yes [id number] 650mg Take 2 [facility] en 325 mg 6-20 tablets by ity of tablet 00:00: mouth [place] 00 every 6 Medical (six) Branch hours as needed for Pain (scale 1-3) or Temp > 38.5 C. acetaminoph 2021-0 Yes [id number] 650mg Take 2 [facility] en 325 mg 6-20 tablets by ity of tablet 00:00: mouth [place] 00 every 6 Medical (six) Branch hours as needed for Pain (scale 1-3) or Temp > 38.5 C. acetaminoph 2021-0 Yes [id number] 650mg Take 2 [facility] en 325 mg 6-20 tablets by ity of tablet 00:00: mouth [place] 00 every 6 Medical (six) Branch hours as needed for Pain (scale 1-3) or Temp > 38.5 C. acetaminoph 2021-0 Yes [id number] 650mg Take 2 [facility] en 325 mg 6-20 tablets by ity of tablet 00:00: mouth [place] 00 every 6 Medical (six) Branch hours as needed for Pain (scale 1-3) or Temp > 38.5 C. acetaminoph 2021-0 Yes [id number] 650mg Take 2 [facility] en 325 mg 6-20 tablets by ity of tablet 00:00: mouth [place] 00 every 6 Medical (six) Branch hours as needed for Pain (scale 1-3) or Temp > 38.5 C. acetaminoph 2021-0 Yes [id number] 650mg Take 2 [facility] en 325 mg 6-20 tablets by ity of tablet 00:00: mouth [place] 00 every 6 Medical (six) Branch hours as needed for Pain (scale 1-3) or Temp > 38.5 C. acetaminoph 2021-0 Yes [id number] 650mg Take 2 [facility] en 325 mg 6-20 tablets by ity of tablet 00:00: mouth [place] 00 every 6 Medical (six) Branch hours as needed for Pain (scale 1-3) or Temp > 38.5 C. acetaminoph 2021-0 Yes [id number] 650mg Take 2 [facility] en 325 mg 6-20 tablets by ity of tablet 00:00: mouth [place] 00 every 6 Medical (six) Branch hours as needed for Pain (scale 1-3) or Temp > 38.5 C. acetaminoph 202-0 Yes [id number] 650mg Take 2 [facility] en 325 mg 6-20 tablets by ity of tablet 00:00: mouth [place] 00 every 6 Medical (six) Branch hours as needed for Pain (scale 1-3) or Temp > 38.5 C. acetaminoph 2021-0 Yes [id number] 650mg Take 2 [facility] en 325 mg 6-20 tablets by ity of tablet 00:00: mouth [place] 00 every 6 Medical (six) Branch hours as needed for Pain (scale 1-3) or Temp > 38.5 C. acetaminoph 2021-0 Yes [id number] 650mg Take 2 [facility] en 325 mg 6-20 tablets by ity of tablet 00:00: mouth [place] 00 every 6 Medical (six) Branch hours as needed for Pain (scale 1-3) or Temp > 38.5 C. acetaminoph 2021-0 Yes [id number] 650mg Take 2 [facility] en 325 mg 6-20 tablets by ity of tablet 00:00: mouth [place] 00 every 6 Medical (six) Branch hours as needed for Pain (scale 1-3) or Temp > 38.5 C. acetaminoph 2021-0 Yes [id number] 650mg Take 2 [facility] en 325 mg 6-20 tablets by ity of tablet 00:00: mouth [place] 00 every 6 Medical (six) Branch hours as needed for Pain (scale 1-3) or Temp > 38.5 C. acetaminoph 0 Yes [id number] 650mg Take 2 [facility] en 325 mg 6-20 tablets by ity of tablet 00:00: mouth [place] 00 every 6 Medical (six) Branch hours as needed for Pain (scale 1-3) or Temp > 38.5 C. acetaminoph 0 Yes [id number] 650mg Take 2 [facility] en 325 mg 6-20 tablets by ity of tablet 00:00: mouth [place] 00 every 6 Medical (six) Branch hours as needed for Pain (scale 1-3) or Temp > 38.5 C. acetaminoph Yes [id number] 650mg Take 2 [facility] en 325 mg 6-20 tablets by ity of tablet 00:00: mouth [place] 00 every 6 Medical (six) Branch hours as needed for Pain (scale 1-3) or Temp > 38.5 C. acetaminoph 0 Yes [id number] 650mg Take 2 [facility] en 325 mg 6-20 tablets by ity of tablet 00:00: mouth [place] 00 every 6 Medical (six) Branch hours as needed for Pain (scale 1-3) or Temp > 38.5 C. acetaminoph 0 Yes [id number] 650mg Take 2 [facility] en 325 mg 6-20 tablets by ity of tablet 00:00: mouth [place] 00 every 6 Medical (six) Branch hours as needed for Pain (scale 1-3) or Temp > 38.5 C. acetaminoph 0 Yes [id number] 650mg Take 2 [facility] en 325 mg 6-20 tablets by ity of tablet 00:00: mouth [place] 00 every 6 Medical (six) Branch hours as needed for Pain (scale 1-3) or Temp > 38.5 C. acetaminoph 0 Yes [id number] 650mg Take 2 [facility] en 325 mg 6-20 tablets by ity of tablet 00:00: mouth [place] 00 every 6 Medical (six) Branch hours as needed for Pain (scale 1-3) or Temp > 38.5 C. acetaminoph 202-0 2022- No [id number] 650mg Take 2 [facility] en 325 mg 6-20 12-15 tablets by ity of tablet 00:00: 00:00 mouth [place] 00 :00 every 6 Medical (six) Branch hours as needed for Pain (scale 1-3) or Temp > 38.5 C. Immunizations Ordered Immunization Filled Immunization Date Status Commen ts Source Name Name Influenza Virus 2022-02-22 Completed [facility] 18-64 00:00:[facility] Influenza Virus 2022-02-22 Completed [facility] Vaccine [facility] ID 18-64 00:00:00 [facility] Influenza Virus 2022-02-22 Completed [facility] of Vaccine [facility] ID 18-64 00:00:00 [facility] Influenza Virus 2022-02-22 Completed [facility] of Vaccine [facility] ID 18-64 00:00:00 [facility] Influenza Virus 2022-02-22 Completed [facility] of Vaccine [facility] ID 18-64 00:00:00 [facility] Influenza Virus 2022-02-22 Completed [facility] of Vaccine [facility] ID 18-64 00:00:00 [facility] Influenza Virus 2022-02-22 Completed [facility] of Vaccine [facility] ID 18-64 00:00:00 [facility] Influenza Virus 2022-02-22 Completed [facility] of Vaccine [facility] ID 18-64 00:00:00 [facility] Influenza Virus 2022-02-22 Completed [facility] of Vaccine [facility] ID 18-64 00:00:00 [facility] Influenza Virus 2022-02-22 Completed [facility] of Vaccine [facility] ID 18-64 00:00:00 [facility] Influenza Virus 2022-02-22 Completed [facility] of Vaccine [facility] ID 18-64 00:00:00 [facility] Influenza Virus 2022-02-22 Completed [facility] of Vaccine [facility] ID 18-64 00:00:00 [facility] Influenza Virus 2022-02-22 Completed [facility] of Vaccine [facility] ID 18-64 00:00:00 [facility] Influenza Virus 2022-02-22 Completed [facility] of Vaccine [facility] ID 18-64 00:00:00 [facility] Influenza Virus 2022-02-22 Completed [facility] of Vaccine [facility] ID 18-64 00:00:00 [facility] Influenza Virus 2022-02-22 Completed [facility] of Vaccine [facility] ID 18-64 00:00:00 [facility] Influenza Virus 2022-02-22 Completed [facility] of Vaccine [facility] ID 18-64 00:00:00 [facility] Influenza Virus 2022-02-22 Completed [facility] of Vaccine [facility] ID 18-64 00:00:00 [facility] Influenza Virus 2022-02-22 Completed [facility] of Vaccine [facility] ID 18-64 00:00:00 [facility] Influenza Virus 2022-02-22 Completed [facility] of Vaccine [facility] ID 18-64 00:00:00 [facility] Influenza Virus 2022-02-22 Completed [facility] of Vaccine Quad ID 18-64 00:00:00 [facility] Influenza Virus 2022-02-22 Completed [facility] Vaccine [facility] ID 18-64 00:00:00 [facility] Influenza Virus 2022-02-22 Completed [facility] Vaccine [facility] ID 18-64 00:00:00 [facility] Influenza Virus 2022-02-22 Completed [facility] Vaccine [facility] ID 18-64 00:00:00 [facility] Influenza Virus 2022-02-22 Completed [facility] of Vaccine Quad ID 18-64 00:00:00 [facility] Influenza Virus 2022-02-22 Completed [facility] of Vaccine Quad ID 18-64 00:00:00 [facility] Influenza Virus 2022-02-22 Completed [facility] Vaccine Quad ID 18-64 00:00:00 [facility] Influenza Virus 2022-02-22 Completed [facility] of Vaccine Quad ID 18-64 00:00:00 [facility] Influenza Virus 2022-02-22 Completed [facility] of Vaccine Quad ID 18-64 00:00:00 [facility] Influenza Virus 2022-02-22 Completed [facility] of Vaccine Quad ID 18-64 00:00:00 [facility] [facility] Influenza Virus 2022-02-22 Completed [facility] ID 18-64 00:00:00 [facility] Influenza Virus 2022-02-22 Completed [facility] 18-64 00:00:00 [facility] Influenza Virus 2022-02-22 Completed [facility] ID 18-64 00:00:00 [facility] Influenza Virus 2022-02-22 Completed [facility] ID 18-64 00:00:00 [facility] Influenza Virus 2022-02-22 Completed [facility] ID 18-64 00:00:00 [facility] Influenza Virus 2022-02-22 Completed [facility] ID 18-64 00:00:00 [facility] Influenza Virus 2022-02-22 Completed [facility] ID 18-64 00:00:00 [facility] Influenza Virus 2022-02-22 Completed [facility] ID 18-64 00:00:00 [facility] Influenza Virus 2022-02-22 Completed [facility] ID 18-64 00:00:00 [facility] Influenza Virus 2022-02-22 Completed [facility] ID 18-64 00:00:00 [facility] Influenza Virus 2022-02-22 Completed [facility] ID 18-64 00:00:00 [facility] Influenza Virus 2022-02-22 Completed [facility] ID 18-64 00:00:00 [facility] Influenza Virus 2022-02-22 Completed [facility] ID 18-64 00:00:00 [facility] Influenza Virus 2022-02-22 Completed [facility] ID 18-64 00:00:00 [facility] Influenza Virus 2022-02-22 Completed [facility] ID 18-64 00:00:00 [facility] Influenza Virus 2021-08-20 Completed [facility], 00:00:00 [place] [facility] ABX Free Bran ch 6 MO-64 YRS Influenza Virus 2021-08-20 Completed [facility], 00:00:00 [place] [facility] Preserv and ABX Free Bran ch 6 MO-64 YRS Influenza Virus 2021-08-20 Completed [facility], 00:00:00 [place] [facility] Preserv and ABX Free Bran ch 6 MO-64 YRS Influenza Virus 2021-08-20 Completed [facility], 00:00:00 [place] [facility] Preserv and ABX Free Bran ch 6 MO-64 YRS Influenza Virus 2021-08-20 Completed [facility], 00:00:00 [place] [facility] Preserv and ABX Free Bran ch 6 MO-64 YRS Influenza Virus 2021-08-20 Completed [facility], 00:00:00 [place] [facility] Preserv and ABX Free Bran ch 6 MO-64 YRS Influenza Virus 2021-08-20 Completed [facility], 00:00:00 [place] [facility] Preserv and ABX Free Bran ch 6 MO-64 YRS Influenza Virus 2021-08-20 Completed [facility], 00:00:00 [place] [facility] Preserv and ABX Free Bran ch 6 MO-64 YRS Influenza Virus 2021-08-20 Completed [facility], 00:00:00 [place] [facility] Preserv and ABX Free Bran ch 6 MO-64 YRS Influenza Virus 2021-08-20 Completed [facility], 00:00:00 [place] [facility] Preserv and ABX Free Bran ch 6 MO-64 YRS Influenza Virus 2021-08-20 Completed [facility], 00:00:00 [place] [facility] Preserv and ABX Free Bran ch 6 MO-64 YRS Influenza Virus 2021-08-20 Completed [facility], 00:00:00 [place] [facility] Preserv and ABX Free Bran ch 6 MO-64 YRS Influenza Virus 2021-08-20 Completed [facility], 00:00:00 [place] [facility] Preserv and ABX Free Bran ch 6 MO-64 YRS Influenza Virus 2021-08-20 Completed [facility], 00:00:00 [place] [facility] Preserv and ABX Free Bran ch 6 MO-64 YRS Influenza Virus 2021-08-20 Completed [facility], 00:00:00 [place] [facility] Preserv and ABX Free Bran ch 6 MO-64 YRS Influenza Virus 2021-08-20 Completed [facility], 00:00:00 [place] [facility] Preserv and ABX Free Bran ch 6 MO-64 YRS Influenza Virus 2021-08-20 Completed [facility], 00:00:00 [place] [facility] Preserv and ABX Free Bran ch 6 MO-64 YRS Influenza Virus 2021-08-20 Completed [facility], 00:00:00 [place] [facility] Preserv and ABX Free Bran ch 6 MO-64 YRS Influenza Virus 2021-08-20 Completed [facility], 00:00:00 [place] [facility] Preserv and ABX Free Bran ch 6 MO-64 YRS Influenza Virus 2021-08-20 Completed [facility], 00:00:00 [place] [facility] Preserv and ABX Free Bran ch 6 MO-64 YRS Influenza Virus 2021-08-20 Completed [facility], 00:00:00 [place] [facility] Preserv and ABX Free Bran ch 6 MO-64 YRS Influenza Virus 2021-08-20 Completed [facility], 00:00:00 [place] [facility] Preserv and ABX Free Bran ch 6 MO-64 YRS Influenza Virus 2021-08-20 Completed [facility], 00:00:00 [place] [facility] Preserv and ABX Free Bran ch 6 MO-64 YRS Influenza Virus 2021-08-20 Completed [facility], 00:00:00 [place] [facility] Preserv and ABX Free Bran ch 6 MO-64 YRS Influenza Virus 2021-08-20 Completed [facility], 00:00:00 [place] [facility] Preserv and ABX Free Bran ch 6 MO-64 YRS Influenza Virus 2021-08-20 Completed [facility], 00:00:00 [place] [facility] Preserv and ABX Free Bran ch 6 MO-64 YRS Influenza Virus 2021-08-20 Completed [facility], 00:00:00 [place] [facility] Preserv and ABX Free Bran ch 6 MO-64 YRS Influenza Virus 2021-08-20 Completed [facility], 00:00:00 [place] [facility] Preserv and ABX Free Bran ch 6 MO-64 YRS Influenza Virus 2021-08-20 Completed [facility], 00:00:00 [place] [facility] Preserv and ABX Free Bran ch 6 MO-64 YRS Influenza Virus 2021-08-20 Completed [facility], 00:00:00 [place] [facility] Preserv and ABX Free Bran ch 6 MO-64 YRS Influenza Virus 2021-08-20 Completed [facility], 00:00:00 [place] [facility] Preserv and ABX Free Bran ch 6 MO-64 YRS Influenza Virus 2021-08-20 Completed [facility], 00:00:00 [place] [facility] Preserv and ABX Free Bran ch 6 MO-64 YRS Influenza Virus 2021-08-20 Completed [facility], 00:00:00 [place] [facility] Preserv and ABX Free Bran ch 6 MO-64 YRS Influenza Virus 2021-08-20 Completed [facility], 00:00:00 [place] [facility] Preserv and ABX Free Bran ch 6 MO-64 YRS Influenza Virus 2021-08-20 Completed [facility], 00:00:00 [place] [facility] Preserv and ABX Free Bran ch 6 MO-64 YRS Influenza Virus 2021-08-20 Completed [facility], 00:00:00 [place] [facility] Preserv and ABX Free Bran ch 6 MO-64 YRS Influenza Virus 2021-08-20 Completed [facility], 00:00:00 [place] [facility] Preserv and ABX Free Bran ch 6 MO-64 YRS Influenza Virus 2021-08-20 Completed [facility], 00:00:00 [place] [facility] Preserv and ABX Free Bran ch 6 MO-64 YRS Influenza Virus 2021-08-20 Completed [facility], 00:00:00 [place] [facility] Preserv and ABX Free Bran ch 6 MO-64 YRS Influenza Virus 2021-08-20 Completed [facility], 00:00:00 [place] [facility] Preserv and ABX Free Bran ch 6 MO-64 YRS Influenza Virus 2021-08-20 Completed [facility], 00:00:00 [place] [facility] Preserv and ABX Free Bran ch 6 MO-64 YRS Influenza Virus 2021-08-20 Completed [facility], 00:00:00 [place] [facility] Preserv and ABX Free Bran ch 6 MO-64 YRS Influenza Virus 2021-08-20 Completed [facility], 00:00:00 [place] [facility] Preserv and ABX Free Bran ch 6 MO-64 YRS Influenza Virus 2021-08-20 Completed [facility], 00:00:00 [place] [facility] Preserv and ABX Free Bran ch 6 MO-64 YRS Influenza Virus 2021-08-20 Completed [facility], 00:00:00 [place] [facility] Preserv and ABX Free Bran ch 6 MO-64 YRS Influenza Virus 2021-08-20 Completed [facility], 00:00:00 [place] [facility] Preserv and ABX Free Bran ch 6 MO-64 YRS Influenza Virus 2021-08-20 Completed [facility], 00:00:00 [place] [facility] Preserv and ABX Free Bran ch 6 MO-64 YRS Influenza Virus 2021-08-20 Completed [facility], 00:00:00 [place] [facility] Preserv and ABX Free Bran ch 6 MO-64 YRS Influenza Virus 2021-08-20 Completed [facility], 00:00:00 [place] [facility] Preserv and ABX Free Bran ch 6 MO-64 YRS Influenza Virus 2021-08-20 Completed [facility], 00:00:00 [place] [facility] Preserv and ABX Free Bran ch 6 MO-64 YRS Influenza Virus 2021-08-20 Completed [facility], 00:00:00 [place] [facility] Preserv and ABX Free Bran ch 6 MO-64 YRS Influenza Virus 2021-08-20 Completed [facility], 00:00:00 [place] [facility] Preserv and ABX Free Bran ch 6 MO-64 YRS Influenza Virus 2021-08-20 Completed [facility], 00:00:00 [place] [facility] Preserv and ABX Free Bran ch 6 MO-64 YRS Influenza Virus 2021-08-20 Completed [facility], 00:00:00 [place] [facility] Preserv and ABX Free Bran ch 6 MO-64 YRS Influenza Virus 2021-08-20 Completed [facility], 00:00:00 [place] [facility] Preserv and ABX Free Bran ch 6 MO-64 YRS Influenza Virus 2021-08-20 Completed [facility], 00:00:00 [place] [facility] Preserv and ABX Free Bran ch 6 MO-64 YRS Influenza Virus 2021-08-20 Completed [facility], 00:00:00 [place] [facility] Preserv and ABX Free Bran ch 6 MO-64 YRS Influenza Virus 2021-08-20 Completed [facility], 00:00:00 [place] [facility] Preserv and ABX Free Bran ch 6 MO-64 YRS Influenza Virus 2021-08-20 Completed [facility], 00:00:00 [place] [facility] Preserv and ABX Free Bran ch 6 MO-64 YRS Influenza Virus 2021-08-20 Completed [facility], 00:00:00 [place] [facility] Preserv and ABX Free Bran ch 6 MO-64 YRS Influenza Virus 2021-08-20 Completed [facility], 00:00:00 [place] [facility] Preserv and ABX Free Bran ch 6 MO-64 YRS Influenza Virus 2021-08-20 Completed [facility], 00:00:00 [place] [facility] Preserv and ABX Free Bran ch 6 MO-64 YRS Influenza Virus 2021-08-20 Completed [facility], 00:00:00 [place] [facility] Preserv and ABX Free Bran ch 6 MO-64 YRS Influenza Virus 2021-08-20 Completed [facility], 00:00:00 [place] [facility] Preserv and ABX Free Bran ch 6 MO-64 YRS Influenza Virus 2021-08-20 Completed [facility], 00:00:00 [place] [facility] Preserv and ABX Free Bran ch 6 MO-64 YRS Influenza Virus 2021-08-20 Completed [facility], 00:00:00 [place] [facility] Preserv and ABX Free Bran ch 6 MO-64 YRS Influenza Virus 2021-08-20 Completed [facility], 00:00:00 [place] [facility] Preserv and ABX Free Bran ch 6 MO-64 YRS Influenza Virus 2021-08-20 Completed [facility], 00:00:00 [place] [facility] Preserv and ABX Free Bran ch 6 MO-64 YRS Influenza Virus 2021-08-20 Completed [facility], 00:00:00 [place] [facility] Preserv and ABX Free Bran ch 6 MO-64 YRS Influenza Virus 2021-08-20 Completed [facility], 00:00:00 [place] [facility] Preserv and ABX Free Bran ch 6 MO-64 YRS SARS-COV-2 COVID-19 2020-06-05 Completed [facility] of VACCINE - (MODERNA) 00:00:00 [facility] SARS-COV-2 COVID-19 2020-06-05 Completed [facility]ive [facility] of VACCINE - (MODERNA) 00:00:00 [facility] SARS-COV-2 COVID-19 2020-06-05 Completed [facility] of VACCINE - (MODERNA) 00:00:00 [facility] SARS-COV-2 COVID-19 2020-06-05 Completed [facility] of VACCINE - (MODERNA) 00:00:00 [facility] SARS-COV-2 COVID-19 2020-06-05 Completed [facility]ive [facility]ity of VACCINE - (MODERNA) 00:00:00 [facility] SARS-COV-2 COVID-19 2020-06-05 Completed [facility]ive [facility]ity of VACCINE - (MODERNA) 00:00:00 [facility] SARS-COV-2 COVID-19 2020-06-05 Completed [facility]ive [facility]ity of VACCINE - (MODERNA) 00:00:00 [facility] SARS-COV-2 COVID-19 2020-06-05 Completed [facility] of VACCINE - (MODERNA) 00:00:00 [facility] SARS-COV-2 COVID-19 2020-06-05 Completed [facility]ity of VACCINE - (MODERNA) 00:00:00 [facility] SARS-COV-2 COVID-19 2020-06-05 Completed [facility]ity of VACCINE - (MODERNA) 00:00:00 [facility] SARS-COV-2 COVID-19 2020-06-05 Completed [facility] of VACCINE - (MODERNA) 00:00:00 [facility] SARS-COV-2 COVID-19 2020-06-05 Completed [facility] of VACCINE - (MODERNA) 00:00:00 [facility] SARS-COV-2 COVID-19 2020-06-05 Completed [facility] of VACCINE - (MODERNA) 00:00:00 [facility] SARS-COV-2 COVID-19 2020-06-05 Completed [facility] of VACCINE - (MODERNA) 00:00:00 [facility] SARS-COV-2 COVID-19 2020-06-05 Completed [facility] of VACCINE - (MODERNA) 00:00:00 [facility] SARS-COV-2 COVID-19 2020-06-05 Completed [facility] of VACCINE - (MODERNA) 00:00:00 [facility] SARS-COV-2 COVID-19 2020-06-05 Completed [facility] of VACCINE - (MODERNA) 00:00:00 [facility] SARS-COV-2 COVID-19 2020-06-05 Completed [facility] of VACCINE - (MODERNA) 00:00:00 [facility] SARS-COV-2 COVID-19 2020-06-05 Completed [facility] of VACCINE - (MODERNA) 00:00:00 [facility] SARS-COV-2 COVID-19 2020-06-05 Completed [facility] of VACCINE - (MODERNA) 00:00:00 [facility] SARS-COV-2 COVID-19 2020-06-05 Completed [facility] of VACCINE - (MODERNA) 00:00:00 [facility] SARS-COV-2 COVID-19 2020-06-05 Completed [facility] of VACCINE - (MODERNA) 00:00:00 [facility] SARS-COV-2 COVID-19 2020-06-05 Completed [facility] of VACCINE - (MODERNA) 00:00:00 [facility] SARS-COV-2 COVID-19 2020-06-05 Completed [facility]ive rsity of VACCINE - (MODERNA) 00:00:00 [facility] SARS-COV-2 COVID-19 2020-06-05 Completed [facility] of VACCINE - (MODERNA) 00:00:00 [facility] SARS-COV-2 COVID-19 2020-05-06 Completed [facility] of VACCINE - (MODERNA) 00:00:00 [facility] SARS-COV-2 COVID-19 2020-05-06 Completed [facility]ity of VACCINE - (MODERNA) 00:00:00 [facility] SARS-COV-2 COVID-19 2020-05-06 Completed [facility] of VACCINE - (MODERNA) 00:00:00 [facility] SARS-COV-2 COVID-19 2020-05-06 Completed [facility] of VACCINE - (MODERNA) 00:00:00 [facility] SARS-COV-2 COVID-19 2020-05-06 Completed [facility] of VACCINE - (MODERNA) 00:00:00 [facility] SARS-COV-2 COVID-19 2020-05-06 Completed [facility] of VACCINE - (MODERNA) 00:00:00 [facility] SARS-COV-2 COVID-19 2020-05-06 Completed [facility] of VACCINE - (MODERNA) 00:00:00 [facility] SARS-COV-2 COVID-19 2020-05-06 Completed [facility] of VACCINE - (MODERNA) 00:00:00 [facility] SARS-COV-2 COVID-19 2020-05-06 Completed [facility] of VACCINE - (MODERNA) 00:00:00 [facility] SARS-COV-2 COVID-19 2020-05-06 Completed [facility] of VACCINE - (MODERNA) 00:00:00 [facility] SARS-COV-2 COVID-19 2020-05-06 Completed [facility] of VACCINE - (MODERNA) 00:00:00 [facility] SARS-COV-2 COVID-19 2020-05-06 Completed [facility] of VACCINE - (MODERNA) 00:00:00 [facility] SARS-COV-2 COVID-19 2020-05-06 Completed [facility] of VACCINE - (MODERNA) 00:00:00 [facility] SARS-COV-2 COVID-19 2020-05-06 Completed [facility] of VACCINE - (MODERNA) 00:00:00 [facility] SARS-COV-2 COVID-19 2020-05-06 Completed [facility] of VACCINE - (MODERNA) 00:00:00 [facility] SARS-COV-2 COVID-19 2020-05-06 Completed [facility] of VACCINE - (MODERNA) 00:00:00 [facility] SARS-COV-2 COVID-19 2020-05-06 Completed [facility] of VACCINE - (MODERNA) 00:00:00 [facility] SARS-COV-2 COVID-19 2020-05-06 Completed [facility] of VACCINE - (MODERNA) 00:00:00 [facility] SARS-COV-2 COVID-19 2020-05-06 Completed [facility] of VACCINE - (MODERNA) 00:00:00 [facility] SARS-COV-2 COVID-19 2020-05-06 Completed [facility] of VACCINE - (MODERNA) 00:00:00 [facility] SARS-COV-2 COVID-19 2020-05-06 Completed [facility] of VACCINE - (MODERNA) 00:00:00 [facility] SARS-COV-2 COVID-19 2020-05-06 Completed [facility] of VACCINE - (MODERNA) 00:00:00 [facility] SARS-COV-2 COVID-19 2020-05-06 Completed [facility]ity of VACCINE - (MODERNA) 00:00:00 [facility] SARS-COV-2 COVID-19 2020-05-06 Completed [facility] of VACCINE - (MODERNA) 00:00:00 [facility] SARS-COV-2 COVID-19 2020-05-06 Completed [facility] of VACCINE - (MODERNA) 00:00:00 [facility] SARS-COV-2 COVID-19 2020-03-25 Completed Unive rsity [...] rsity of MODERNA 0.25ML 00:00:00 [place] [facility]ACC[facility] SARS-COV-2 COVID-19 2020-03-25 Completed [...] Completed [facility]ive rsity of MODERNA 0.25ML 00:00:00 [place] [facility]ACC[facility] HEPATITIS A 2017-06-02 Completed [facility] 00:00:00 [facility] HPV9 2017-06-02 Completed [facility] 00:00:00 [facility] Meningococcal 2017-06-02 Completed [facility] Polysaccharide 00:00:00 [place] [facility] (groups A, C, Y and Branc h W-135) conjugate vaccine (MCV4P) HEPATITIS A 2017-06-02 Completed [facility] 00:00:00 [facility] HPV9 2017-06-02 Completed [facility] of 00:00:00 [facility] Meningococcal 2017-06-02 Completed [facility] Polysaccharide 00:00:00 [place] [facility] (groups A, C, Y and Branc h W-135) conjugate vaccine (MCV4P) HEPATITIS A 2017-06-02 Completed [facility] 00:00:00 [facility] HPV9 2017-06-02 Completed [facility] 00:00:00 [facility] Meningococcal 2017-06-02 Completed [facility] Polysaccharide 00:00:00 [place] [facility] (groups A, C, Y and Branc h W-135) conjugate vaccine (MCV4P) HEPATITIS A 2017-06-02 Completed [facility] 00:00:00 [facility] HPV9 2017-06-02 Completed [facility] 00:00:00 [facility] Meningococcal 2017-06-02 Completed [facility] Polysaccharide 00:00:00 [place] [facility] (groups A, C, Y and Branc h W-135) conjugate vaccine (MCV4P) HEPATITIS A 2017-06-02 Completed [facility] 00:00:00 [facility] HPV9 2017-06-02 Completed [facility] 00:00:00 [facility] Meningococcal 2017-06-02 Completed [facility] Polysaccharide 00:00:00 [place] [facility] (groups A, C, Y and Branc h W-135) conjugate vaccine (MCV4P) HEPATITIS A 2017-06-02 Completed [facility] 00:00:00 [facility] HPV9 2017-06-02 Completed [facility] 00:00:00 [facility] Meningococcal 2017-06-02 Completed [facility] Polysaccharide 00:00:00 [place] [facility] (groups A, C, Y and Branc h W-135) conjugate vaccine (MCV4P) HEPATITIS A 2017-06-02 Completed [facility] 00:00:00 [facility] HPV9 2017-06-02 Completed [facility] 00:00:00 [facility] Meningococcal 2017-06-02 Completed [facility] Polysaccharide 00:00:00 [place] [facility] (groups A, C, Y and Branc h W-135) conjugate vaccine (MCV4P) HEPATITIS A 2017-06-02 Completed [facility] 00:00:00 [facility] HPV9 2017-06-02 Completed [facility] 00:00:00 [facility] Meningococcal 2017-06-02 Completed [facility] Polysaccharide 00:00:00 [place] [facility] (groups A, C, Y and Branc h W-135) conjugate vaccine (MCV4P) HEPATITIS A 2017-06-02 Completed [facility] 00:00:00 [facility] HPV9 2017-06-02 Completed [facility] 00:00:00 [facility] Meningococcal 2017-06-02 Completed [facility] Polysaccharide 00:00:00 [place] [facility] (groups A, C, Y and Branc h W-135) conjugate vaccine (MCV4P) HEPATITIS A 2017-06-02 Completed [facility] 00:00:00 [facility] HPV9 2017-06-02 Completed [facility] 00:00:00 [facility] Meningococcal 2017-06-02 Completed [facility] Polysaccharide 00:00:00 [place] [facility] (groups A, C, Y and Branc h W-135) conjugate vaccine (MCV4P) HEPATITIS A 2017-06-02 Completed [facility] 00:00:00 [facility] HPV9 2017-06-02 Completed [facility] 00:00:00 [facility] Meningococcal 2017-06-02 Completed [facility] Polysaccharide 00:00:00 [place] [facility] (groups A, C, Y and Branc h W-135) conjugate vaccine (MCV4P) HEPATITIS A 2017-06-02 Completed [facility] 00:00:00 [facility] HPV9 2017-06-02 Completed [facility] 00:00:00 [facility] Meningococcal 2017-06-02 Completed [facility] Polysaccharide 00:00:00 [place] [facility] (groups A, C, Y and Branc h W-135) conjugate vaccine (MCV4P) HEPATITIS A 2017-06-02 Completed [facility] 00:00:00 [facility] HPV9 2017-06-02 Completed [facility] 00:00:00 [facility] Meningococcal 2017-06-02 Completed [facility] Polysaccharide 00:00:00 [place] [facility] (groups A, C, Y and Branc h W-135) conjugate vaccine (MCV4P) HEPATITIS A 2017-06-02 Completed [facility] 00:00:00 [facility] HPV9 2017-06-02 Completed [facility] 00:00:00 [facility] Meningococcal 2017-06-02 Completed [facility] Polysaccharide 00:00:00 [place] [facility] (groups A, C, Y and Branc h W-135) conjugate vaccine (MCV4P) HEPATITIS A 2017-06-02 Completed [facility] 00:00:00 [facility] HPV9 2017-06-02 Completed [facility] 00:00:00 [facility] Meningococcal 2017-06-02 Completed [facility] Polysaccharide 00:00:00 [place] [facility] (groups A, C, Y and Branc h W-135) conjugate vaccine (MCV4P) HEPATITIS A 2017-06-02 Completed [facility] 00:00:00 [facility] HPV9 2017-06-02 Completed [facility] 00:00:00 [facility] Meningococcal 2017-06-02 Completed [facility] Polysaccharide 00:00:00 [place] [facility] (groups A, C, Y and Branc h W-135) conjugate vaccine (MCV4P) HEPATITIS A 2017-06-02 Completed [facility] 00:00:00 [facility] [facility] HPV9 2017-06-02 Completed [facility] 00:00:00 [facility] Meningococcal 2017-06-02 Completed [facility] Polysaccharide 00:00:00 [facility] (groups A, C, Y and Branc h W-135) conjugate vaccine (MCV4P) HEPATITIS A 2017-06-02 Completed [facility] 00:00:00 [facility] HPV9 2017-06-02 Completed [facility] 00:00:00 [facility] Meningococcal 2017-06-02 Completed [facility] Polysaccharide 00:00:00 [facility] (groups A, C, Y and Branc h W-135) conjugate vaccine (MCV4P) HEPATITIS A 2017-06-02 Completed [facility] 00:00:00 [facility] HPV9 2017-06-02 Completed [facility] 00:00:00 [facility] Meningococcal 2017-06-02 Completed [facility] Polysaccharide 00:00:00 [facility] (groups A, C, Y and Branc h W-135) conjugate vaccine (MCV4P) HEPATITIS A 2017-06-02 Completed [facility] 00:00:00 [facility] HPV9 2017-06-02 Completed [facility] 00:00:00 [facility] Meningococcal 2017-06-02 Completed [facility] Polysaccharide 00:00:00 [facility] (groups A, C, Y and Branc h W-135) conjugate vaccine (MCV4P) HEPATITIS A 2017-06-02 Completed [facility] 00:00:00 [facility] HPV9 2017-06-02 Completed [facility] 00:00:00 [facility] Meningococcal 2017-06-02 Completed [facility] Polysaccharide 00:00:00 [facility] (groups A, C, Y and Branc h W-135) conjugate vaccine (MCV4P) HEPATITIS A 2017-06-02 Completed [facility] 00:00:00 [facility] HPV9 2017-06-02 Completed [facility] 00:00:00 [facility] Meningococcal 2017-06-02 Completed [facility] Polysaccharide 00:00:00 [facility] (groups A, C, Y and Branc h W-135) conjugate vaccine (MCV4P) HEPATITIS A 2017-06-02 Completed [facility] 00:00:00 [facility] HPV9 2017-06-02 Completed [facility] 00:00:00 [facility] Meningococcal 2017-06-02 Completed [facility] Polysaccharide 00:00:00 [facility] (groups A, C, Y and Branc h W-135) conjugate vaccine (MCV4P) HEPATITIS A 2017-06-02 Completed [facility] 00:00:00 [facility] HPV9 2017-06-02 Completed [facility] 00:00:00 [facility] Meningococcal 2017-06-02 Completed [facility] Polysaccharide 00:00:00 [facility] (groups A, C, Y and Branc h W-135) conjugate vaccine (MCV4P) HEPATITIS A 2017-06-02 Completed [facility] 00:00:00 [facility] HPV9 2017-06-02 Completed [facility] 00:00:00 [facility] Meningococcal 2017-06-02 Completed [facility] Polysaccharide 00:00:00 [facility] (groups A, C, Y and Branc h W-135) conjugate vaccine (MCV4P) HPV 2011-12-29 Completed [facility] 00:00:00 [facility] HPV 2011-12-29 Completed [facility] 00:00:00 [facility] HPV 2011-12-29 Completed [facility] 00:00:00 [facility] HPV 2011-12-29 Completed [facility] 00:00:00 [facility] HPV 2011-12-29 Completed [facility] 00:00:00 [facility] HPV 2011-12-29 Completed [facility] 00:00:00 [facility] HPV 2011-12-29 Completed [facility] 00:00:00 [facility] HPV 2011-12-29 Completed [facility] 00:00:00 [facility] HPV 2011-12-29 Completed [facility] 00:00:00 [facility] HPV 2011-12-29 Completed [facility] 00:00:00 [facility] HPV 2011-12-29 Completed [facility] 00:00:00 [facility] HPV 2011-12-29 Completed [facility] 00:00:00 [facility] HPV 2011-12-29 Completed [facility] 00:00:00 [facility] HPV 2011-12-29 Completed [facility] 00:00:00 [facility] HPV 2011-12-29 Completed [facility] 00:00:00 [facility] HPV 2011-12-29 Completed [facility] 00:00:00 [facility] HPV 2011-12-29 Completed [facility] 00:00:00 [facility] HPV 2011-12-29 Completed [facility] 00:00:00 [facility] HPV 2011-12-29 Completed [facility] 00:00:00 [facility] HPV 2011-12-29 Completed [facility] 00:00:00 [facility] HPV 2011-12-29 Completed [facility] 00:00:00 [facility] HPV 2011-12-29 Completed [facility] 00:00:00 [facility] HPV 2011-12-29 Completed [facility] 00:00:00 [facility] HPV 2011-12-29 Completed [facility] 00:00:00 [facility] HPV 2011-12-29 Completed [facility] 00:00:00 [facility] HEPATITIS A 2011-10-26 Completed [facility] 00:00:00 [facility] HPV 2011-10-26 Completed [facility] 00:00:00 [facility] Meningococcal 2011-10-26 Completed [facility] Polysaccharide 00:00:00 [place] [facility] (groups A, C, Y and Branc h W-135) conjugate vaccine (MCV4P) TDAP 2011-10-26 Completed [facility] 00:00:00 [facility] Varicella 2011-10-26 Completed [facility] (varivax)(chicken 00:00:00 [facility] HEPATITIS A 2011-10-26 Completed [facility] 00:00:00 [facility] HPV 2011-10-26 Completed [facility] 00:00:00 [facility] Meningococcal 2011-10-26 Completed [facility] Polysaccharide 00:00:00 [facility] (groups A, C, Y and Branc h W-135) conjugate vaccine (MCV4P) TDAP 2011-10-26 Completed [facility] 00:00:00 [facility] Varicella 2011-10-26 Completed [facility] (varivax)(chicken 00:00:00 [place] [facility] HEPATITIS A 2011-10-26 Completed [facility] 00:00:00 [facility] HPV 2011-10-26 Completed [facility] 00:00:00 [facility] Meningococcal 2011-10-26 Completed [facility] Polysaccharide 00:00:00 [facility] (groups A, C, Y and Branc h W-135) conjugate vaccine (MCV4P) TDAP 2011-10-26 Completed [facility] 00:00:00 [facility] Varicella 2011-10-26 Completed [facility] (varivax)(chicken 00:00:00 [place] [facility] HEPATITIS A 2011-10-26 Completed [facility] 00:00:00 [facility] HPV 2011-10-26 Completed [facility] 00:00:00 [facility] Meningococcal 2011-10-26 Completed [facility] Polysaccharide 00:00:00 [facility] (groups A, C, Y and Branc h W-135) conjugate vaccine (MCV4P) TDAP 2011-10-26 Completed [facility] 00:00:00 [facility] Varicella 2011-10-26 Completed [facility] (varivax)(chicken 00:00:00 [place] [facility] HEPATITIS A 2011-10-26 Completed [facility] 00:00:00 [facility] HPV 2011-10-26 Completed [facility] 00:00:00 [facility] Meningococcal 2011-10-26 Completed [facility] Polysaccharide 00:00:00 [facility] (groups A, C, Y and Branc h W-135) conjugate vaccine (MCV4P) TDAP 2011-10-26 Completed [facility] 00:00:00 [facility] Varicella 2011-10-26 Completed [facility] (varivax)(chicken 00:00:00 [place] [facility] HEPATITIS A 2011-10-26 Completed [facility] 00:00:00 [facility] HPV 2011-10-26 Completed [facility] 00:00:00 [facility] Meningococcal 2011-10-26 Completed [facility] Polysaccharide 00:00:00 [place] [facility] (groups A, C, Y and Branc h W-135) conjugate vaccine (MCV4P) TDAP 2011-10-26 Completed [facility] 00:00:00 [facility] Varicella 2011-10-26 Completed [facility] (varivax)(chicken 00:00:00 [place] [facility] HEPATITIS A 2011-10-26 Completed [facility] 00:00:00 [facility] HPV 2011-10-26 Completed [facility] 00:00:00 [facility] Meningococcal 2011-10-26 Completed [facility] Polysaccharide 00:00:00 [place] [facility] (groups A, C, Y and Branc h W-135) conjugate vaccine (MCV4P) TDAP 2011-10-26 Completed [facility] 00:00:00 [facility] Varicella 2011-10-26 Completed [facility] (varivax)(chicken 00:00:00 [place] [facility] HEPATITIS A 2011-10-26 Completed [facility] 00:00:00 [facility] HPV 2011-10-26 Completed [facility] 00:00:00 [facility] Meningococcal 2011-10-26 Completed [facility] Polysaccharide 00:00:00 [place] [facility] (groups A, C, Y and Branc h W-135) conjugate vaccine (MCV4P) TDAP 2011-10-26 Completed [facility] 00:00:00 [facility] Varicella 2011-10-26 Completed [facility] (varivax)(chicken 00:00:00 [place] [facility] HEPATITIS A 2011-10-26 Completed [facility] 00:00:00 [facility] HPV 2011-10-26 Completed [facility] 00:00:00 [facility] Meningococcal 2011-10-26 Completed [facility] Polysaccharide 00:00:00 [place] [facility] (groups A, C, Y and Branc h W-135) conjugate vaccine (MCV4P) TDAP 2011-10-26 Completed [facility] 00:00:00 [facility] Varicella 2011-10-26 Completed [facility] (varivax)(chicken 00:00:00 [place] [facility] HEPATITIS A 2011-10-26 Completed [facility] 00:00:00 [facility] HPV 2011-10-26 Completed [facility] 00:00:00 [facility] Meningococcal 2011-10-26 Completed [facility] Polysaccharide 00:00:00 [place] [facility] (groups A, C, Y and Branc h W-135) conjugate vaccine (MCV4P) TDAP 2011-10-26 Completed [facility] 00:00:00 [facility] Varicella 2011-10-26 Completed [facility] (varivax)(chicken 00:00:00 [place] [facility] HEPATITIS A 2011-10-26 Completed [facility] 00:00:00 [facility] HPV 2011-10-26 Completed [facility] 00:00:00 [facility] Meningococcal 2011-10-26 Completed [facility] Polysaccharide 00:00:00 [place] [facility] (groups A, C, Y and Branc h W-135) conjugate vaccine (MCV4P) TDAP 2011-10-26 Completed [facility] 00:00:00 [facility] Varicella 2011-10-26 Completed [facility] (varivax)(chicken 00:00:00 [place] [facility] HEPATITIS A 2011-10-26 Completed [facility] 00:00:00 [facility] HPV 2011-10-26 Completed [facility] 00:00:00 [facility] Meningococcal 2011-10-26 Completed [facility] Polysaccharide 00:00:00 [place] [facility] (groups A, C, Y and Branc h W-135) conjugate vaccine (MCV4P) TDAP 2011-10-26 Completed [facility] 00:00:00 [facility] Varicella 2011-10-26 Completed [facility] (varivax)(chicken 00:00:00 [place] [facility] HEPATITIS A 2011-10-26 Completed [facility] 00:00:00 [facility] HPV 2011-10-26 Completed [facility] 00:00:00 [facility] Meningococcal 2011-10-26 Completed [facility] Polysaccharide 00:00:00 [place] [facility] (groups A, C, Y and Branc h W-135) conjugate vaccine (MCV4P) TDAP 2011-10-26 Completed [facility] 00:00:00 [facility] Varicella 2011-10-26 Completed [facility] (varivax)(chicken 00:00:00 [place] [facility] HEPATITIS A 2011-10-26 Completed [facility] 00:00:00 [facility] HPV 2011-10-26 Completed [facility] 00:00:00 [facility] Meningococcal 2011-10-26 Completed [facility] Polysaccharide 00:00:00 [facility]ichael (groups A, C, Y and Branc h W-135) conjugate vaccine (MCV4P) TDAP 2011-10-26 Completed [facility] 00:00:00 [facility] Varicella 2011-10-26 Completed [facility] (varivax)(chicken 00:00:00 [place] [facility] HEPATITIS A 2011-10-26 Completed [facility] 00:00:00 [facility] HPV 2011-10-26 Completed [facility] 00:00:00 [facility] Meningococcal 2011-10-26 Completed [facility] Polysaccharide 00:00:00 [facility] (groups A, C, Y and Branc h W-135) conjugate vaccine (MCV4P) TDAP 2011-10-26 Completed [facility] 00:00:00 [facility] Varicella 2011-10-26 Completed [facility] (varivax)(chicken 00:00:00 [place] [facility] HEPATITIS A 2011-10-26 Completed [facility] 00:00:00 [facility] HPV 2011-10-26 Completed [facility] 00:00:00 [facility] Meningococcal 2011-10-26 Completed [facility] Polysaccharide 00:00:00 [facility] (groups A, C, Y and Branc h W-135) conjugate vaccine (MCV4P) TDAP 2011-10-26 Completed [facility] 00:00:00 [facility] Varicella 2011-10-26 Completed [facility] (varivax)(chicken 00:00:00 [place] [facility] HEPATITIS A 2011-10-26 Completed [facility] 00:00:00 [facility] HPV 2011-10-26 Completed [facility] 00:00:00 [facility] Meningococcal 2011-10-26 Completed [facility] Polysaccharide 00:00:00 [place] [facility] (groups A, C, Y and Branc h W-135) conjugate vaccine (MCV4P) TDAP 2011-10-26 Completed [facility] 00:00:00 [facility] Varicella 2011-10-26 Completed [facility] (varivax)(chicken 00:00:00 [place] [facility] HEPATITIS A 2011-10-26 Completed [facility] 00:00:00 [facility] HPV 2011-10-26 Completed [facility] 00:00:00 [facility] Meningococcal 2011-10-26 Completed [facility] Polysaccharide 00:00:00 [place] [facility] (groups A, C, Y and Branc h W-135) conjugate vaccine (MCV4P) TDAP 2011-10-26 Completed [facility] 00:00:00 [facility] Varicella 2011-10-26 Completed [facility] (varivax)(chicken 00:00:00 [place] [facility] HEPATITIS A 2011-10-26 Completed [facility] 00:00:00 [facility] HPV 2011-10-26 Completed [facility] 00:00:00 [facility] Meningococcal 2011-10-26 Completed [facility] Polysaccharide 00:00:00 [place] [facility] (groups A, C, Y and Branc h W-135) conjugate vaccine (MCV4P) TDAP 2011-10-26 Completed [facility] 00:00:00 [facility] Varicella 2011-10-26 Completed [facility] (varivax)(chicken 00:00:00 [place] [facility]ox[facility] HEPATITIS A 2011-10-26 Completed [facility] 00:00:00 [facility] HPV 2011-10-26 Completed [facility] 00:00:00 [facility] Meningococcal 2011-10-26 Completed [facility] Polysaccharide 00:00:00 [place] [facility] (groups A, C, Y and Branc h W-135) conjugate vaccine (MCV4P) TDAP 2011-10-26 Completed [facility] 00:00:00 [facility] Varicella 2011-10-26 Completed [facility] (varivax)(chicken 00:00:00 [place] [facility]ox[facility] HEPATITIS A 2011-10-26 Completed [facility] 00:00:00 [facility] HPV 2011-10-26 Completed [facility] 00:00:00 [facility] Meningococcal 2011-10-26 Completed [facility] Polysaccharide 00:00:00 [place] [facility] (groups A, C, Y and Branc h W-135) conjugate vaccine (MCV4P) TDAP 2011-10-26 Completed [facility] 00:00:00 [facility] Varicella 2011-10-26 Completed [facility] (varivax)(chicken 00:00:00 [place] [facility] pox[facility] HEPATITIS A 2011-10-26 Completed [facility] 00:00:00 [facility] HPV 2011-10-26 Completed [facility] 00:00:00 [facility] Meningococcal 2011-10-26 Completed [facility] Polysaccharide 00:00:00 [place] [facility] (groups A, C, Y and Branc h W-135) conjugate vaccine (MCV4P) TDAP 2011-10-26 Completed [facility] 00:00:00 [facility] Varicella 2011-10-26 Completed [facility] (varivax)(chicken 00:00:00 [place] [facility] pox[facility] HEPATITIS A 2011-10-26 Completed [facility] 00:00:00 [facility] HPV 2011-10-26 Completed [facility] 00:00:00 [facility] Meningococcal 2011-10-26 Completed [facility] Polysaccharide 00:00:00 [place] [facility] (groups A, C, Y and Branc h W-135) conjugate vaccine (MCV4P) TDAP 2011-10-26 Completed [facility] 00:00:00 [facility] Varicella 2011-10-26 Completed [facility] (varivax)(chicken 00:00:00 [place] [facility]ox[facility] HEPATITIS A 2011-10-26 Completed [facility] 00:00:00 [facility] HPV 2011-10-26 Completed [facility] 00:00:00 [facility] Meningococcal 2011-10-26 Completed [facility] Polysaccharide 00:00:00 [place] [facility] (groups A, C, Y and Branc h W-135) conjugate vaccine (MCV4P) TDAP 2011-10-26 Completed [facility] 00:00:00 [facility] Varicella 2011-10-26 Completed [facility] (varivax)(chicken 00:00:00 [place] [facility] HEPATITIS A 2011-10-26 Completed [facility] 00:00:00 [facility] HPV 2011-10-26 Completed [facility] 00:00:00 [facility] Meningococcal 2011-10-26 Completed [facility] Polysaccharide 00:00:00 [place] [facility] (groups A, C, Y and Branc h W-135) conjugate vaccine (MCV4P) TDAP 2011-10-26 Completed [facility] 00:00:00 [facility] Varicella 2011-10-26 Completed [facility] (varivax)(chicken 00:00:00 [facility] H1n1 Vaccine 2009-05-28 Completed University o f 00:00:00 [facility] H1n1 Vaccine 2009-05-28 Completed University o f 00:00:00 [facility] H1n1 Vaccine 2009-05-28 Completed University o f 00:00:00 [facility] H1n1 Vaccine 2009-05-28 Completed [facility] o f 00:00:00 [facility] H1n1 Vaccine 2009-05-28 Completed University o f 00:00:00 [facility] H1n1 Vaccine 2009-05-28 Completed University o f 00:00:00 [facility] H1n1 Vaccine 2009-05-28 Completed [facility] o f 00:00:00 [facility] H1n1 Vaccine 2009-05-28 Completed [facility] o f 00:00:00 [facility] H1n1 Vaccine 2009-05-28 Completed University o f 00:00:00 [facility] H1n1 Vaccine 2009-05-28 Completed [facility] o f 00:00:00 [facility] H1n1 Vaccine 2009-05-28 Completed [facility] o f 00:00:00 [facility] H1n1 Vaccine 2009-05-28 Completed [facility] o f 00:00:00 [facility] H1n1 Vaccine 2009-05-28 Completed University o f 00:00:00 [facility] H1n1 Vaccine 2009-05-28 Completed [facility] o f 00:00:00 [facility] H1n1 Vaccine 2009-05-28 Completed [facility] o f 00:00:00 [facility] H1n1 Vaccine 2009-05-28 Completed [facility] o f 00:00:00 [facility] H1n1 Vaccine 2009-05-28 Completed [facility] o f 00:00:00 [facility] H1n1 Vaccine 2009-05-28 Completed [facility] o f 00:00:00 [facility] H1n1 Vaccine 2009-05-28 Completed [facility] o f 00:00:00 [facility] H1n1 Vaccine 2009-05-28 Completed [facility] o f 00:00:00 [facility] H1n1 Vaccine 2009-05-28 Completed University o f 00:00:00 [facility] H1n1 Vaccine 2009-05-28 Completed [facility] o f 00:00:00 [facility] H1n1 Vaccine 2009-05-28 Completed [facility] o f 00:00:00 [facility] H1n1 Vaccine 2009-05-28 Completed [facility] o f 00:00:00 [facility] H1n1 Vaccine 2009-05-28 Completed [facility] o f 00:00:00 [facility] Influenza Virus 2009-01-22 Completed Universit y of Vaccine - Whole 00:00:00 [facility] Influenza Virus 2009-01-22 Completed Universit y of Vaccine - Whole 00:00:00 [facility] Influenza Virus 2009-01-22 Completed Universit y of Vaccine - Whole 00:00:00 [facility] Influenza Virus 2009-01-22 Completed [facility]it y of Vaccine - Whole 00:00:00 [facility] Influenza Virus 2009-01-22 Completed [facility]it y of Vaccine - Whole 00:00:00 [facility] Influenza Virus 2009-01-22 Completed [facility] y of Vaccine - Whole 00:00:00 [facility] Influenza Virus 2009-01-22 Completed [facility] y of Vaccine - Whole 00:00:00 [facility] Influenza Virus 2009-01-22 Completed [facility] y of Vaccine - Whole 00:00:00 [facility] Influenza Virus 2009-01-22 Completed [facility] y of Vaccine - Whole 00:00:00 [facility] Influenza Virus 2009-01-22 Completed [facility] y of Vaccine - Whole 00:00:00 [facility] Influenza Virus 2009-01-22 Completed [facility] y of Vaccine - Whole 00:00:00 [facility] Influenza Virus 2009-01-22 Completed [facility] y of Vaccine - Whole 00:00:00 [facility] Influenza Virus 2009-01-22 Completed [facility] y of Vaccine - Whole 00:00:00 [facility] Influenza Virus 2009-01-22 Completed [facility] y of Vaccine - Whole 00:00:00 [facility] Influenza Virus 2009-01-22 Completed [facility] y of Vaccine - Whole 00:00:00 [facility] Influenza Virus 2009-01-22 Completed [facility] y of Vaccine - Whole 00:00:00 [facility] Influenza Virus 2009-01-22 Completed [facility] y of Vaccine - Whole 00:00:00 [facility] Influenza Virus 2009-01-22 Completed [facility] y of Vaccine - Whole 00:00:00 [facility] Influenza Virus 2009-01-22 Completed [facility] y of Vaccine - Whole 00:00:00 [facility] Influenza Virus 2009-01-22 Completed Univers[facility] y of Vaccine - Whole 00:00:00 [facility] Influenza Virus 2009-01-22 Completed Univers[facility] y of Vaccine - Whole 00:00:00 [facility] Influenza Virus 2009-01-22 Completed [facility] y of Vaccine - Whole 00:00:00 [facility] Influenza Virus 2009-01-22 Completed [facility] Vaccine - Whole 00:00:00 [place] [facility] Influenza Virus 2009-01-22 Completed [facility] Vaccine - Whole 00:00:00 [facility] Influenza Virus 2009-01-22 Completed [facility] Vaccine - Whole 00:00:00 [facility] DTaP, Unspecified 2003-06-24 Completed [facility] Formulation 00:00:00 [facility] MMR 2003-06-24 Completed [facility] 00:00:00 [facility] IPV 2003-06-24 Completed [facility] 00:00:00 [facility] DTaP, Unspecified 2003-06-24 Completed [facility] Formulation 00:00:00 [facility] MMR 2003-06-24 Completed [facility] 00:00:00 [facility] IPV 2003-06-24 Completed [facility] of 00:00:00 [facility] DTaP, Unspecified 2003-06-24 Completed [facility] Formulation 00:00:00 [facility] MMR 2003-06-24 Completed [facility] 00:00:00 [facility] IPV 2003-06-24 Completed [facility] 00:00:00 [facility] DTaP, Unspecified 2003-06-24 Completed [facility] Formulation 00:00:00 [facility] MMR 2003-06-24 Completed [facility] 00:00:00 [facility] IPV 2003-06-24 Completed [facility] 00:00:00 [facility] DTaP, Unspecified 2003-06-24 Completed [facility] Formulation 00:00:00 [facility] MMR 2003-06-24 Completed [facility] 00:00:00 [facility] IPV 2003-06-24 Completed [facility] 00:00:00 [facility] DTaP, Unspecified 2003-06-24 Completed [facility] Formulation 00:00:00 [facility] MMR 2003-06-24 Completed [facility] 00:00:00 [facility] IPV 2003-06-24 Completed [facility] 00:00:00 [facility] DTaP, Unspecified 2003-06-24 Completed [facility] Formulation 00:00:00 [facility] MMR 2003-06-24 Completed [facility] 00:00:00 [facility] IPV 2003-06-24 Completed [facility] 00:00:00 [facility] DTaP, Unspecified 2003-06-24 Completed [facility] Formulation 00:00:00 [facility] MMR 2003-06-24 Completed [facility] 00:00:00 [facility] IPV 2003-06-24 Completed [facility] 00:00:00 [facility] DTaP, Unspecified 2003-06-24 Completed [facility] Formulation 00:00:00 [facility] MMR 2003-06-24 Completed [facility] 00:00:00 [facility] IPV 2003-06-24 Completed [facility] 00:00:00 [facility] DTaP, Unspecified 2003-06-24 Completed [facility] Formulation 00:00:00 [facility] MMR 2003-06-24 Completed [facility] of 00:00:00 [facility] IPV 2003-06-24 Completed [facility] 00:00:00 [facility] DTaP, Unspecified 2003-06-24 Completed [facility] Formulation 00:00:00 [facility] MMR 2003-06-24 Completed [facility] of 00:00:00 [facility] IPV 2003-06-24 Completed [facility] 00:00:00 [facility] DTaP, Unspecified 2003-06-24 Completed [facility] Formulation 00:00:00 [facility] MMR 2003-06-24 Completed [facility] of 00:00:00 [facility] IPV 2003-06-24 Completed [facility] of 00:00:00 [facility] DTaP, Unspecified 2003-06-24 Completed [facility] Formulation 00:00:00 [facility] MMR 2003-06-24 Completed [facility] of 00:00:00 [facility] IPV 2003-06-24 Completed [facility] 00:00:00 [facility] DTaP, Unspecified 2003-06-24 Completed [facility] Formulation 00:00:00 [facility] MMR 2003-06-24 Completed [facility] of 00:00:00 [facility] IPV 2003-06-24 Completed [facility] 00:00:00 [facility] DTaP, Unspecified 2003-06-24 Completed [facility] Formulation 00:00:00 [facility] MMR 2003-06-24 Completed [facility] of 00:00:00 [facility] IPV 2003-06-24 Completed [facility] 00:00:00 [facility] DTaP, Unspecified 2003-06-24 Completed [facility] Formulation 00:00:00 [facility] MMR 2003-06-24 Completed [facility] of 00:00:00 [facility] IPV 2003-06-24 Completed [facility] 00:00:00 [facility] DTaP, Unspecified 2003-06-24 Completed [facility] Formulation 00:00:00 [facility] MMR 2003-06-24 Completed [facility] of 00:00:00 [facility] IPV 2003-06-24 Completed [facility] 00:00:00 [facility] DTaP, Unspecified 2003-06-24 Completed [facility] Formulation 00:00:00 [facility] MMR 2003-06-24 Completed [facility] of 00:00:00 [facility] IPV 2003-06-24 Completed [facility] 00:00:00 [facility] DTaP, Unspecified 2003-06-24 Completed [facility] Formulation 00:00:00 [facility] MMR 2003-06-24 Completed [facility] of 00:00:00 [facility] IPV 2003-06-24 Completed [facility] of 00:00:00 [facility] DTaP, Unspecified 2003-06-24 Completed [facility] Formulation 00:00:00 [facility] MMR 2003-06-24 Completed [facility] of 00:00:00 [facility] IPV 2003-06-24 Completed [facility] of 00:00:00 [facility] DTaP, Unspecified 2003-06-24 Completed [facility] Formulation 00:00:00 [facility] MMR 2003-06-24 Completed [facility] of 00:00:00 [facility] IPV 2003-06-24 Completed [facility] of 00:00:00 [facility] DTaP, Unspecified 2003-06-24 Completed [facility] Formulation 00:00:00 [facility] MMR 2003-06-24 Completed [facility] of 00:00:00 [facility] IPV 2003-06-24 Completed [facility] 00:00:00 [facility] DTaP, Unspecified 2003-06-24 Completed [facility] Formulation 00:00:00 [facility] MMR 2003-06-24 Completed [facility] of 00:00:00 [facility] IPV 2003-06-24 Completed [facility] of 00:00:00 [facility] DTaP, Unspecified 2003-06-24 Completed [facility] Formulation 00:00:00 [facility] MMR 2003-06-24 Completed [facility] of 00:00:00 [facility] IPV 2003-06-24 Completed [facility] 00:00:00 [facility] DTaP, Unspecified 2003-06-24 Completed [facility] Formulation 00:00:00 [facility] MMR 2003-06-24 Completed [facility] of 00:00:00 [facility] IPV 2003-06-24 Completed [facility] of 00:00:00 [facility] DTaP, Unspecified 2000-10-18 Completed [facility] Formulation 00:00:00 [facility] HIB 4 Dose Schedule 2000-10-18 Completed Unive rsity of 00:00:00 [facility] DTaP, Unspecified 2000-10-18 Completed [facility] Formulation 00:00:00 [facility] HIB 4 Dose Schedule 2000-10-18 Completed Unive rsity of 00:00:00 [facility] DTaP, Unspecified 2000-10-18 Completed [facility] Formulation 00:00:00 [facility] HIB 4 Dose Schedule 2000-10-18 Completed Unive rsity of 00:00:00 [facility] DTaP, Unspecified 2000-10-18 Completed [facility] Formulation 00:00:00 [facility] HIB 4 Dose Schedule 2000-10-18 Completed Unive rsity of 00:00:00 [facility] DTaP, Unspecified 2000-10-18 Completed [facility] Formulation 00:00:00 [facility] HIB 4 Dose Schedule 2000-10-18 Completed Unive rsity of 00:00:00 [facility] DTaP, Unspecified 2000-10-18 Completed [facility] Formulation 00:00:00 [facility] HIB 4 Dose Schedule 2000-10-18 Completed Unive rsity of 00:00:00 [facility] DTaP, Unspecified 2000-10-18 Completed [facility] of Formulation 00:00:00 [facility] HIB 4 Dose Schedule 2000-10-18 Completed Unive rsity of 00:00:00 [facility] DTaP, Unspecified 2000-10-18 Completed [facility] Formulation 00:00:00 [facility] HIB 4 Dose Schedule 2000-10-18 Completed Unive rsity of 00:00:00 [facility] DTaP, Unspecified 2000-10-18 Completed [facility] of Formulation 00:00:00 [facility] HIB 4 Dose Schedule 2000-10-18 Completed Unive rsity of 00:00:00 [facility] DTaP, Unspecified 2000-10-18 Completed [facility] Formulation 00:00:00 [facility] HIB 4 Dose Schedule 2000-10-18 Completed Unive rsity of 00:00:00 [facility] DTaP, Unspecified 2000-10-18 Completed [facility] Formulation 00:00:00 [facility] HIB 4 Dose Schedule 2000-10-18 Completed Unive rsity of 00:00:00 [facility] DTaP, Unspecified 2000-10-18 Completed [facility] Formulation 00:00:00 [facility] HIB 4 Dose Schedule 2000-10-18 Completed Unive rsity of 00:00:00 [facility] DTaP, Unspecified 2000-10-18 Completed [facility] Formulation 00:00:00 [facility] HIB 4 Dose Schedule 2000-10-18 Completed Unive rsity of 00:00:00 [facility] DTaP, Unspecified 2000-10-18 Completed [facility] Formulation 00:00:00 [facility] HIB 4 Dose Schedule 2000-10-18 Completed Unive rsity of 00:00:00 [facility] DTaP, Unspecified 2000-10-18 Completed [facility] Formulation 00:00:00 [facility] HIB 4 Dose Schedule 2000-10-18 Completed Unive rsity of 00:00:00 [facility] DTaP, Unspecified 2000-10-18 Completed [facility] Formulation 00:00:00 [facility] HIB 4 Dose Schedule 2000-10-18 Completed Unive rsity of 00:00:00 [facility] DTaP, Unspecified 2000-10-18 Completed [facility] Formulation 00:00:00 [facility] HIB 4 Dose Schedule 2000-10-18 Completed Unive rsity of 00:00:00 [facility] DTaP, Unspecified 2000-10-18 Completed [facility] Formulation 00:00:00 [facility] HIB 4 Dose Schedule 2000-10-18 Completed Unive rsity of 00:00:00 [facility] DTaP, Unspecified 2000-10-18 Completed [facility] Formulation 00:00:00 [facility] HIB 4 Dose Schedule 2000-10-18 Completed Unive rsity of 00:00:00 [facility] DTaP, Unspecified 2000-10-18 Completed [facility] Formulation 00:00:00 [facility] HIB 4 Dose Schedule 2000-10-18 Completed Unive rsity of 00:00:00 [facility] DTaP, Unspecified 2000-10-18 Completed [facility] it[facility] of Formulation 00:00:00 [facility] HIB 4 Dose Schedule 2000-10-18 Completed Unive rsity of 00:00:00 [facility] DTaP, Unspecified 2000-10-18 Completed [facility] Formulation 00:00:00 [facility] HIB 4 Dose Schedule 2000-10-18 Completed Unive rsity of 00:00:00 [facility] DTaP, Unspecified 2000-10-18 Completed [facility] of Formulation 00:00:00 [facility] HIB 4 Dose Schedule 2000-10-18 Completed Unive rsity of 00:00:00 [facility] DTaP, Unspecified 2000-10-18 Completed [facility] of Formulation 00:00:00 [facility] HIB 4 Dose Schedule 2000-10-18 Completed Unive rsity of 00:00:00 [facility] DTaP, Unspecified 2000-10-18 Completed [facility] Formulation 00:00:00 [facility] HIB 4 Dose Schedule 2000-10-18 Completed Unive rsity of 00:00:00 [facility] MMR 2000-07-03 Completed [facility] of 00:00:00 [facility] IPV 2000-07-03 Completed [facility] of 00:00:00 [facility] Varicella 2000-07-03 Completed [facility] of (varivax)(chicken 00:00:00 [facility] MMR 2000-07-03 Completed [facility] 00:00:00 [facility] IPV 2000-07-03 Completed [facility] 00:00:00 [facility] Varicella 2000-07-03 Completed [facility] (varivax)(chicken 00:00:00 [facility] MMR 2000-07-03 Completed [facility] 00:00:00 [facility] IPV 2000-07-03 Completed [facility] 00:00:00 [facility] Varicella 2000-07-03 Completed [facility] (varivax)(chicken 00:00:00 [facility] MMR 2000-07-03 Completed [facility] 00:00:00 [facility] IPV 2000-07-03 Completed [facility] 00:00:00 [facility] Varicella 2000-07-03 Completed [facility] (varivax)(chicken 00:00:00 [facility] MMR 2000-07-03 Completed [facility] 00:00:00 [facility] IPV 2000-07-03 Completed [facility] 00:00:00 [facility] Varicella 2000-07-03 Completed [facility] (varivax)(chicken 00:00:00 [facility] MMR 2000-07-03 Completed [facility] 00:00:00 [facility] IPV 2000-07-03 Completed [facility] 00:00:00 [facility] Varicella 2000-07-03 Completed [facility] (varivax)(chicken 00:00:00 [facility] MMR 2000-07-03 Completed [facility] of 00:00:00 [facility] IPV 2000-07-03 Completed [facility] 00:00:00 [facility] Varicella 2000-07-03 Completed [facility] (varivax)(chicken 00:00:00 [place] [facility] MMR 2000-07-03 Completed [facility] of 00:00:00 [facility] IPV 2000-07-03 Completed [facility] of 00:00:00 [facility] Varicella 2000-07-03 Completed [facility] (varivax)(chicken 00:00:00 [place] [facility] MMR 2000-07-03 Completed [facility] 00:00:00 [facility] IPV 2000-07-03 Completed [facility] 00:00:00 [facility] Varicella 2000-07-03 Completed [facility] (varivax)(chicken 00:00:00 [place] [facility] MMR 2000-07-03 Completed [facility] of 00:00:00 [facility] IPV 2000-07-03 Completed [facility] 00:00:00 [facility] Varicella 2000-07-03 Completed [facility] (varivax)(chicken 00:00:00 [facility] MMR 2000-07-03 Completed [facility] 00:00:00 [facility] IPV 2000-07-03 Completed [facility] 00:00:00 [facility] Varicella 2000-07-03 Completed [facility] (varivax)(chicken 00:00:00 [place] [facility] MMR 2000-07-03 Completed [facility] 00:00:00 [facility] IPV 2000-07-03 Completed [facility] 00:00:00 [facility] Varicella 2000-07-03 Completed [facility] (varivax)(chicken 00:00:00 [facility] MMR 2000-07-03 Completed [facility] 00:00:00 [facility] IPV 2000-07-03 Completed [facility] of 00:00:00 [facility] Varicella 2000-07-03 Completed [facility] (varivax)(chicken 00:00:00 [facility] MMR 2000-07-03 Completed [facility] 00:00:00 [facility] IPV 2000-07-03 Completed [facility] 00:00:00 [facility] Varicella 2000-07-03 Completed [facility] (varivax)(chicken 00:00:00 [place] [facility] MMR 2000-07-03 Completed [facility] 00:00:00 [facility] IPV 2000-07-03 Completed [facility] of 00:00:00 [facility] Varicella 2000-07-03 Completed [facility] (varivax)(chicken 00:00:00 [place] [facility] MMR 2000-07-03 Completed [facility] 00:00:00 [facility] IPV 2000-07-03 Completed [facility] 00:00:00 [facility] Varicella 2000-07-03 Completed [facility] (varivax)(chicken 00:00:00 [place] [facility] MMR 2000-07-03 Completed [facility] of 00:00:00 [facility] IPV 2000-07-03 Completed [facility] of 00:00:00 [facility] Varicella 2000-07-03 Completed [facility] (varivax)(chicken 00:00:00 [place] [facility] MMR 2000-07-03 Completed [facility] 00:00:00 [facility] IPV 2000-07-03 Completed [facility] of 00:00:00 [facility] Varicella 2000-07-03 Completed [facility] (varivax)(chicken 00:00:00 [place] [facility] MMR 2000-07-03 Completed [facility] 00:00:00 [facility] IPV 2000-07-03 Completed [facility] of 00:00:00 [facility] Varicella 2000-07-03 Completed [facility] (varivax)(chicken 00:00:00 [place] [facility] MMR 2000-07-03 Completed [facility] 00:00:00 [facility] IPV 2000-07-03 Completed [facility] 00:00:00 [facility] Varicella 2000-07-03 Completed [facility] (varivax)(chicken 00:00:00 [place] [facility] MMR 2000-07-03 Completed [facility] 00:00:00 [facility] IPV 2000-07-03 Completed [facility] 00:00:00 [facility] Varicella 2000-07-03 Completed [facility] (varivax)(chicken 00:00:00 [place] [facility] MMR 2000-07-03 Completed [facility] 00:00:00 [facility] IPV 2000-07-03 Completed [facility] 00:00:00 [facility] Varicella 2000-07-03 Completed [facility] (varivax)(chicken 00:00:00 [place] [facility] MMR 2000-07-03 Completed [facility] 00:00:00 [facility] IPV 2000-07-03 Completed [facility] 00:00:00 [facility] Varicella 2000-07-03 Completed [facility] (varivax)(chicken 00:00:00 [place] [facility] MMR 2000-07-03 Completed [facility] 00:00:00 [facility] IPV 2000-07-03 Completed [facility] 00:00:00 [facility] Varicella 2000-07-03 Completed [facility] (varivax)(chicken 00:00:00 [place] [facility] MMR 2000-07-03 Completed [facility] 00:00:00 [facility] IPV 2000-07-03 Completed [facility] 00:00:00 [facility] Varicella 2000-07-03 Completed [facility] of (varivax)(chicken 00:00:00 [facility] edical pox) Branch DTaP, Unspecified 2000-03-21 Completed Univers ity of Formulation 00:00:00 [facility] Hep B, Adol or Pedi 2000-03-21 Completed Unive rsity of Dosage 00:00:00 [facility] HIB 4 Dose Schedule 2000-03-21 Completed Unive rsity of 00:00:00 [facility] DTaP, Unspecified 2000-03-21 Completed [facility] of Formulation 00:00:00 [facility] Hep B, Adol or Pedi 2000-03-21 Completed Unive rsity of Dosage 00:00:00 [facility] HIB 4 Dose Schedule 2000-03-21 Completed Unive rsity of 00:00:00 [facility] DTaP, Unspecified 2000-03-21 Completed [facility] Formulation 00:00:00 [facility] Hep B, Adol or Pedi 2000-03-21 Completed Unive rsity of Dosage 00:00:00 [facility] HIB 4 Dose Schedule 2000-03-21 Completed Unive rsity of 00:00:00 [facility] DTaP, Unspecified 2000-03-21 Completed [facility] ity [facility] Formulation 00:00:00 [facility] Hep B, Adol or Pedi 2000-03-21 Completed Unive rsity of Dosage 00:00:00 [facility] HIB 4 Dose Schedule 2000-03-21 Completed Unive rsity of 00:00:00 [facility] DTaP, Unspecified 2000-03-21 Completed [facility]y [facility] Formulation 00:00:00 [facility] Hep B, Adol or Pedi 2000-03-21 Completed Unive rsity of Dosage 00:00:00 [facility] HIB 4 Dose Schedule 2000-03-21 Completed Unive rsity of 00:00:00 [facility] DTaP, Unspecified 2000-03-21 Completed [facility] it[facility] Formulation 00:00:00 [facility] Hep B, Adol or Pedi 2000-03-21 Completed Unive rsity of Dosage 00:00:00 [facility] HIB 4 Dose Schedule 2000-03-21 Completed Unive rsity of 00:00:00 [facility] DTaP, Unspecified 2000-03-21 Completed [facility] Formulation 00:00:00 [facility] Hep B, Adol or Pedi 2000-03-21 Completed Unive rsity of Dosage 00:00:00 [facility] HIB 4 Dose Schedule 2000-03-21 Completed Unive rsity of 00:00:00 [facility] DTaP, Unspecified 2000-03-21 Completed [facility] Formulation 00:00:00 [facility] Hep B, Adol or Pedi 2000-03-21 Completed Unive rsity of Dosage 00:00:00 [facility] HIB 4 Dose Schedule 2000-03-21 Completed Unive rsity of 00:00:00 [facility] DTaP, Unspecified 2000-03-21 Completed [facility] it[facility] Formulation 00:00:00 [facility] Hep B, Adol or Pedi 2000-03-21 Completed Unive rsity of Dosage 00:00:00 [facility] HIB 4 Dose Schedule 2000-03-21 Completed [facility] 00:00:00 [facility] DTaP, Unspecified 2000-03-21 Completed [facility] 00:00:00 [facility] Hep B, Adol or Pedi 2000-03-21 Completed [facility] Dosage 00:00:00 [facility] HIB 4 Dose Schedule 2000-03-21 Completed [facility] 00:00:00 [facility] DTaP, Unspecified 2000-03-21 Completed [facility] 00:00:00 [facility] Hep B, Adol or Pedi 2000-03-21 Completed [facility] Dosage 00:00:00 [facility] HIB 4 Dose Schedule 2000-03-21 Completed [facility] 00:00:00 [facility] DTaP, Unspecified 2000-03-21 Completed [facility] 00:00:00 [facility] Hep B, Adol or Pedi 2000-03-21 Completed [facility] Dosage 00:00:00 [facility] HIB 4 Dose Schedule 2000-03-21 Completed [facility] 00:00:00 [facility] DTaP, Unspecified 2000-03-21 Completed [facility] 00:00:00 [facility] Hep B, Adol or Pedi 2000-03-21 Completed [facility] Dosage 00:00:00 [facility] HIB 4 Dose Schedule 2000-03-21 Completed [facility] 00:00:00 [facility] DTaP, Unspecified 2000-03-21 Completed [facility] 00:00:00 [facility] Hep B, Adol or Pedi 2000-03-21 Completed [facility] Dosage 00:00:00 [facility] HIB 4 Dose Schedule 2000-03-21 Completed [facility] 00:00:00 [facility] DTaP, Unspecified 2000-03-21 Completed [facility] 00:00:00 [facility] Hep B, Adol or Pedi 2000-03-21 Completed [facility] Dosage 00:00:00 [facility] HIB 4 Dose Schedule 2000-03-21 Completed [facility] 00:00:00 [facility] DTaP, Unspecified 2000-03-21 Completed [facility] 00:00:00 [facility] Hep B, Adol or Pedi 2000-03-21 Completed [facility] Dosage 00:00:00 [facility] HIB 4 Dose Schedule 2000-03-21 Completed [facility] 00:00:00 [facility] DTaP, Unspecified 2000-03-21 Completed [facility] 00:00:00 [facility] Hep B, Adol or Pedi 2000-03-21 Completed [facility] Dosage 00:00:00 [facility] HIB 4 Dose Schedule 2000-03-21 Completed [facility] 00:00:00 [facility] DTaP, Unspecified 2000-03-21 Completed [facility] 00:00:00 [facility] Hep B, Adol or Pedi 2000-03-21 Completed [facility] Dosage 00:00:00 [facility] HIB 4 Dose Schedule 2000-03-21 Completed [facility] 00:00:00 [facility] DTaP, Unspecified 2000-03-21 Completed [facility] 00:00:00 [facility] Hep B, Adol or Pedi 2000-03-21 Completed [facility] Dosage 00:00:00 [facility] HIB 4 Dose Schedule 2000-03-21 Completed [facility] 00:00:00 [facility] DTaP, Unspecified 2000-03-21 Completed [facility] 00:00:00 [facility] Hep B, Adol or Pedi 2000-03-21 Completed [facility] Dosage 00:00:00 [facility] HIB 4 Dose Schedule 2000-03-21 Completed [facility] 00:00:00 [facility] DTaP, Unspecified 2000-03-21 Completed [facility] 00:00:00 [facility] Hep B, Adol or Pedi 2000-03-21 Completed [facility] Dosage 00:00:00 [facility] HIB 4 Dose Schedule 2000-03-21 Completed [facility] 00:00:00 [facility] DTaP, Unspecified 2000-03-21 Completed [facility] 00:00:00 [facility] Hep B, Adol or Pedi 2000-03-21 Completed [facility] Dosage 00:00:00 [facility] HIB 4 Dose Schedule 2000-03-21 Completed [facility] 00:00:00 [facility] DTaP, Unspecified 2000-03-21 Completed [facility] 00:00:00 [facility] Hep B, Adol or Pedi 2000-03-21 Completed [facility] Dosage 00:00:00 [facility] HIB 4 Dose Schedule 2000-03-21 Completed [facility] 00:00:00 [facility] DTaP, Unspecified 2000-03-21 Completed [facility] 00:00:00 [facility] Hep B, Adol or Pedi 2000-03-21 Completed [facility] Dosage 00:00:00 [facility] HIB 4 Dose Schedule 2000-03-21 Completed [facility] 00:00:00 [facility] DTaP, Unspecified 2000-03-21 Completed [facility] 00:00:00 [facility] Hep B, Adol or Pedi 2000-03-21 Completed [facility] Dosage 00:00:00 [facility] HIB 4 Dose Schedule 2000-03-21 Completed [facility] 00:00:00 [facility] DTaP, Unspecified 1999 Completed [facility] 00:00:00 [facility] Hep B, Adol or Pedi 1999 Completed [facility] Dosage 00:00:00 [facility] HIB 4 Dose Schedule 1999 Completed [facility] 00:00:00 [facility] IPV 1999 Completed [facility] 00:00:00 [facility] DTaP, Unspecified 1999 Completed [facility] 00:00:00 [facility] Hep B, Adol or Pedi 1999 Completed [facility] Dosage 00:00:00 [facility] HIB 4 Dose Schedule 1999 Completed [facility] 00:00:00 [facility] IPV 1999 Completed [facility] 00:00:00 [facility] DTaP, Unspecified 1999 Completed [facility] 00:00:00 [facility] Hep B, Adol or Pedi 1999 Completed [facility] Dosage 00:00:00 [facility] HIB 4 Dose Schedule 1999 Completed [facility] 00:00:00 [facility] IPV 1999 Completed [facility] 00:00:00 [facility] DTaP, Unspecified 1999 Completed [facility] 00:00:00 [facility] Hep B, Adol or Pedi 1999 Completed [facility] Dosage 00:00:00 [facility] HIB 4 Dose Schedule 1999 Completed [facility] 00:00:00 [facility] IPV 1999 Completed [facility] 00:00:00 [facility] DTaP, Unspecified 1999 Completed [facility] 00:00:00 [facility] Hep B, Adol or Pedi 1999 Completed [facility] Dosage 00:00:00 [facility] HIB 4 Dose Schedule 1999 Completed [facility] 00:00:00 [facility] IPV 1999 Completed [facility] 00:00:00 [facility] DTaP, Unspecified 1999 Completed [facility] 00:00:00 [facility] Hep B, Adol or Pedi 1999 Completed [facility] Dosage 00:00:00 [facility] HIB 4 Dose Schedule 1999 Completed [facility] 00:00:00 [facility] IPV 1999 Completed [facility] 00:00:00 [facility] DTaP, Unspecified 1999 Completed [facility] 00:00:00 [facility] Hep B, Adol or Pedi 1999 Completed [facility] Dosage 00:00:00 [facility] HIB 4 Dose Schedule 1999 Completed [facility] 00:00:00 [facility] IPV 1999 Completed [facility] 00:00:00 [facility] DTaP, Unspecified 1999 Completed [facility] 00:00:00 [facility] Hep B, Adol or Pedi 1999 Completed [facility] Dosage 00:00:00 [facility] HIB 4 Dose Schedule 1999 Completed [facility] 00:00:00 [facility] IPV 1999 Completed [facility] 00:00:00 [facility] DTaP, Unspecified 1999 Completed [facility] 00:00:00 [facility] Hep B, Adol or Pedi 1999 Completed [facility] Dosage 00:00:00 [facility] HIB 4 Dose Schedule 1999 Completed [facility] 00:00:00 [facility] IPV 1999 Completed [facility] 00:00:00 [facility] DTaP, Unspecified 1999 Completed [facility] 00:00:00 [facility] Hep B, Adol or Pedi 1999 Completed [facility] Dosage 00:00:00 [facility] HIB 4 Dose Schedule 1999 Completed [facility] 00:00:00 [facility] IPV 1999 Completed [facility] 00:00:00 [facility] DTaP, Unspecified 1999 Completed [facility] 00:00:00 [facility] Hep B, Adol or Pedi 1999 Completed [facility] Dosage 00:00:00 [facility] HIB 4 Dose Schedule 1999 Completed [facility] 00:00:00 [facility] IPV 1999 Completed [facility] 00:00:00 [facility] DTaP, Unspecified 1999 Completed [facility] 00:00:00 [facility] Hep B, Adol or Pedi 1999 Completed [facility] Dosage 00:00:00 [facility] HIB 4 Dose Schedule 1999 Completed [facility] 00:00:00 [facility] IPV 1999 Completed [facility] 00:00:00 [facility] DTaP, Unspecified 1999 Completed [facility] 00:00:00 [facility] Hep B, Adol or Pedi 1999 Completed [facility] Dosage 00:00:00 [facility] HIB 4 Dose Schedule 1999 Completed [facility] 00:00:00 [facility] IPV 1999 Completed [facility] 00:00:00 [facility] DTaP, Unspecified 1999 Completed [facility] 00:00:00 [facility] Hep B, Adol or Pedi 1999 Completed [facility] Dosage 00:00:00 [facility] HIB 4 Dose Schedule 1999 Completed [facility] 00:00:00 [facility] IPV 1999 Completed [facility] 00:00:00 [facility] DTaP, Unspecified 1999 Completed [facility] 00:00:00 [facility] Hep B, Adol or Pedi 1999 Completed [facility] Dosage 00:00:00 [facility] HIB 4 Dose Schedule 1999 Completed [facility] 00:00:00 [facility] IPV 1999 Completed [facility] 00:00:00 [facility] DTaP, Unspecified 1999 Completed [facility] 00:00:00 [facility] Hep B, Adol or Pedi 1999 Completed [facility] Dosage 00:00:00 [facility] HIB 4 Dose Schedule 1999 Completed [facility] 00:00:00 [facility] IPV 1999 Completed [facility] 00:00:00 [facility] DTaP, Unspecified 1999 Completed [facility] 00:00:00 [facility] Hep B, Adol or Pedi 1999 Completed [facility] Dosage 00:00:00 [facility] HIB 4 Dose Schedule 1999 Completed [facility] 00:00:00 [facility] IPV 1999 Completed [facility] 00:00:00 [facility] DTaP, Unspecified 1999 Completed [facility] 00:00:00 [facility] Hep B, Adol or Pedi 1999 Completed [facility] Dosage 00:00:00 [facility] HIB 4 Dose Schedule 1999 Completed [facility] 00:00:00 [facility] IPV 1999 Completed [facility] 00:00:00 [facility] DTaP, Unspecified 1999 Completed [facility] 00:00:00 [facility] Hep B, Adol or Pedi 1999 Completed [facility] Dosage 00:00:00 [facility] HIB 4 Dose Schedule 1999 Completed [facility] 00:00:00 [facility] IPV 1999 Completed [facility] 00:00:00 [facility] DTaP, Unspecified 1999 Completed [facility] 00:00:00 [facility] Hep B, Adol or Pedi 1999 Completed [facility] Dosage 00:00:00 [facility] HIB 4 Dose Schedule 1999 Completed [facility] 00:00:00 [facility] IPV 1999 Completed [facility] 00:00:00 [facility] DTaP, Unspecified 1999 Completed [facility] Form[facility] 00:00:00 [facility] Hep B, Adol or Pedi 1999 Completed [facility] Dosage 00:00:00 [facility] HIB 4 Dose Schedule 1999 Completed [facility] 00:00:00 [facility] IPV 1999 Completed [facility] 00:00:00 [facility] DTaP, Unspecified 1999 Completed [facility] 00:00:00 [facility] Hep B, Adol or Pedi 1999 Completed [facility] Dosage 00:00:00 [facility] HIB 4 Dose Schedule 1999 Completed [facility] 00:00:00 [facility] IPV 1999 Completed [facility] 00:00:00 [facility] DTaP, Unspecified 1999 Completed [facility] 00:00:00 [facility] Hep B, Adol or Pedi 1999 Completed [facility] Dosage 00:00:00 [facility] HIB 4 Dose Schedule 1999 Completed [facility] 00:00:00 [facility] IPV 1999 Completed [facility] 00:00:00 [facility] DTaP, Unspecified 1999 Completed [facility] 00:00:00 [facility] Hep B, Adol or Pedi 1999 Completed [facility] Dosage 00:00:00 [facility] HIB 4 Dose Schedule 1999 Completed [facility] 00:00:00 [facility] IPV 1999 Completed [facility] 00:00:00 [facility] DTaP, Unspecified 1999 Completed [facility] 00:00:00 [facility] Hep B, Adol or Pedi 1999 Completed [facility] Dosage 00:00:00 [facility] HIB 4 Dose Schedule 1999 Completed [facility] 00:00:00 [facility] IPV 1999 Completed [facility] 00:00:00 [facility] DTaP, Unspecified 1999 Completed [facility] 00:00:00 [facility] Hep B, Adol or Pedi 1999 Completed [facility] Dosage 00:00:00 [facility] HIB 4 Dose Schedule 1999 Completed [facility] 00:00:00 [facility] IPV 1999 Completed [facility] 00:00:00 [facility] DTaP, Unspecified 1999 Completed [facility] 00:00:00 [facility] Hep B, Adol or Pedi 1999 Completed [facility] Dosage 00:00:00 [facility] HIB 4 Dose Schedule 1999 Completed [facility] 00:00:00 [facility] IPV 1999 Completed [facility] 00:00:00 [facility] DTaP, Unspecified 1999 Completed [facility] 00:00:00 [facility] Hep B, Adol or Pedi 1999 Completed [facility] Dosage 00:00:00 [facility] HIB 4 Dose Schedule 1999 Completed [facility] 00:00:00 [facility] IPV 1999 Completed [facility] 00:00:00 [facility] DTaP, Unspecified 1999 Completed [facility] 00:00:00 [facility] Hep B, Adol or Pedi 1999 Completed [facility] Dosage 00:00:00 [facility] HIB 4 Dose Schedule 1999 Completed [facility] 00:00:00 [facility] IPV 1999 Completed [facility] 00:00:00 [facility] DTaP, Unspecified 1999 Completed [facility] Form[facility] 00:00:00 [facility] Hep B, Adol or Pedi 1999 Completed [facility] Dosage 00:00:00 [facility] HIB 4 Dose Schedule 1999 Completed [facility] 00:00:00 [facility] IPV 1999 Completed [facility] 00:00:00 [facility] DTaP, Unspecified 1999 Completed [facility] Form[facility] 00:00:00 [facility] Hep B, Adol or Pedi 1999 Completed [facility] Dosage 00:00:00 [facility] HIB 4 Dose Schedule 1999 Completed [facility] 00:00:00 [facility] IPV 1999 Completed [facility] 00:00:00 [facility] DTaP, Unspecified 1999 Completed [facility] Form[facility] 00:00:00 [facility] Hep B, Adol or Pedi 1999 Completed [facility] Dosage 00:00:00 [facility] HIB 4 Dose Schedule 1999 Completed [facility] 00:00:00 [facility] IPV 1999 Completed [facility] 00:00:00 [facility] DTaP, Unspecified 1999 Completed [facility] Form[facility] 00:00:00 [facility] Hep B, Adol or Pedi 1999 Completed [facility] Dosage 00:00:00 [facility] HIB 4 Dose Schedule 1999 Completed [facility] 00:00:00 [facility] IPV 1999 Completed [facility] 00:00:00 [facility] DTaP, Unspecified 1999 Completed [facility] Form[facility] 00:00:00 [facility] Hep B, Adol or Pedi 1999 Completed [facility] Dosage 00:00:00 [facility] HIB 4 Dose Schedule 1999 Completed [facility] 00:00:00 [facility] IPV 1999 Completed [facility] 00:00:00 [facility] DTaP, Unspecified 1999 Completed [facility] 00:00:00 [facility] Hep B, Adol or Pedi 1999 Completed [facility] Dosage 00:00:00 [facility] HIB 4 Dose Schedule 1999 Completed [facility] 00:00:00 [facility] IPV 1999 Completed [facility] 00:00:00 [facility] DTaP, Unspecified 1999 Completed [facility] Form[facility] 00:00:00 [facility] Hep B, Adol or Pedi 1999 Completed [facility] Dosage 00:00:00 [facility] HIB 4 Dose Schedule 1999 Completed [facility] 00:00:00 [facility] IPV 1999 Completed [facility] 00:00:00 [facility] DTaP, Unspecified 1999 Completed [facility] 00:00:00 [facility] Hep B, Adol or Pedi 1999 Completed [facility] Dosage 00:00:00 [facility] HIB 4 Dose Schedule 1999 Completed [facility] 00:00:00 [facility] IPV 1999 Completed [facility] 00:00:00 [facility] DTaP, Unspecified 1999 Completed [facility] Form[facility] 00:00:00 [facility] Hep B, Adol or Pedi 1999 Completed [facility] Dosage 00:00:00 [facility] HIB 4 Dose Schedule 1999 Completed [facility] 00:00:00 [facility] IPV 1999 Completed [facility] 00:00:00 [facility] DTaP, Unspecified 1999 Completed [facility] 00:00:00 [facility] Hep B, Adol or Pedi 1999 Completed [facility] Dosage 00:00:00 [facility] HIB 4 Dose Schedule 1999 Completed [facility] 00:00:00 [facility] IPV 1999 Completed [facility] 00:00:00 [facility] DTaP, Unspecified 1999 Completed [facility] 00:00:00 [facility] Hep B, Adol or Pedi 1999 Completed [facility] Dosage 00:00:00 [facility] HIB 4 Dose Schedule 1999 Completed [facility] 00:00:00 [facility] IPV 1999 Completed [facility] 00:00:00 [facility] DTaP, Unspecified 1999 Completed [facility] Form[facility] 00:00:00 [facility] Hep B, Adol or Pedi 1999 Completed [facility] Dosage 00:00:00 [facility] HIB 4 Dose Schedule 1999 Completed [facility] 00:00:00 [facility] IPV 1999 Completed [facility] 00:00:00 [facility] DTaP, Unspecified 1999 Completed [facility] 00:00:00 [facility] Hep B, Adol or Pedi 1999 Completed [facility] Dosage 00:00:00 [facility] HIB 4 Dose Schedule 1999 Completed [facility] 00:00:00 [facility] IPV 1999 Completed [facility] 00:00:00 [facility] DTaP, Unspecified 1999 Completed [facility] 00:00:00 [facility] Hep B, Adol or Pedi 1999 Completed [facility] Dosage 00:00:00 [facility] HIB 4 Dose Schedule 1999 Completed [facility] 00:00:00 [facility] IPV 1999 Completed [facility] 00:00:00 [facility] DTaP, Unspecified 1999 Completed [facility] 00:00:00 [facility] Hep B, Adol or Pedi 1999 Completed [facility] Dosage 00:00:00 [facility] HIB 4 Dose Schedule 1999 Completed [facility] 00:00:00 [facility] IPV 1999 Completed [facility] 00:00:00 [facility] DTaP, Unspecified 1999 Completed [facility] 00:00:00 [facility] Hep B, Adol or Pedi 1999 Completed [facility] Dosage 00:00:00 [facility] HIB 4 Dose Schedule 1999 Completed [facility] 00:00:00 [facility] IPV 1999 Completed [facility] 00:00:00 [facility] DTaP, Unspecified 1999 Completed [facility] 00:00:00 [facility] Hep B, Adol or Pedi 1999 Completed [facility] Dosage 00:00:00 [facility] HIB 4 Dose Schedule 1999 Completed [facility] 00:00:00 [facility] IPV 1999 Completed [facility] 00:00:00 [facility] DTaP, Unspecified 1999 Completed [facility] 00:00:00 [facility] Hep B, Adol or Pedi 1999 Completed [facility] Dosage 00:00:00 [facility] HIB 4 Dose Schedule 1999 Completed [facility] 00:00:00 [facility] IPV 1999 Completed [facility] 00:00:00 [facility] Branch DTaP, Unspecified 1999 Completed [facility]y of Formulation 00:00:00 [facility] Hep B, Adol or Pedi 1999 Completed Unive rsity of Dosage 00:00:00 [facility] HIB 4 Dose Schedule 1999 Completed Unive rsity of 00:00:00 [facility] IPV 1999 Completed University of 00:00:00 [facility] DTaP, Unspecified 1999 Completed [facility] Formulation 00:00:00 [facility] Hep B, Adol or Pedi 1999 Completed Unive rsity of Dosage 00:00:00 [facility] HIB 4 Dose Schedule 1999 Completed Unive rsity of 00:00:00 [facility] IPV 1999 Completed University of 00:00:00 [facility] DTaP, Unspecified 1999 Completed [facility] Formulation 00:00:00 [facility] Hep B, Adol or Pedi 1999 Completed Unive rsity of Dosage 00:00:00 [facility] HIB 4 Dose Schedule 1999 Completed [facility]ity of 00:00:00 [place] [facility] IPV 1999 Completed University of 00:00:00 [facility] Hep B, Adol or Pedi 1999 Completed Unive rsity of Dosage 00:00:00 [facility] Hep B, Adol or Pedi 1999 Completed Unive rsity of Dosage 00:00:00 [facility] Hep B, Adol or Pedi 1999 Completed Unive rsity of Dosage 00:00:00 [facility] Hep B, Adol or Pedi 1999 Completed Unive rsity of Dosage 00:00:00 [facility] Hep B, Adol or Pedi 1999 Completed Unive rsity of Dosage 00:00:00 [facility] Hep B, Adol or Pedi 1999 Completed Unive rsity of Dosage 00:00:00 [facility] Hep B, Adol or Pedi 1999 Completed Unive rsity of Dosage 00:00:00 [facility] Hep B, Adol or Pedi 1999 Completed Unive rsity of Dosage 00:00:00 [facility] Hep B, Adol or Pedi 1999 Completed Unive rsity of Dosage 00:00:00 [facility] Hep B, Adol or Pedi 1999 Completed Unive rsity of Dosage 00:00:00 [facility] Hep B, Adol or Pedi 1999 Completed Unive rsity of Dosage 00:00:00 [facility] Hep B, Adol or Pedi 1999 Completed Unive rsity of Dosage 00:00:00 [facility] Hep B, Adol or Pedi 1999 Completed Unive rsity of Dosage 00:00:00 [facility] Hep B, Adol or Pedi 1999 Completed Unive rsity of Dosage 00:00:00 [facility] Hep B, Adol or Pedi 1999 Completed Unive rsity of Dosage 00:00:00 [facility] Hep B, Adol or Pedi 1999 Completed Unive rsity of Dosage 00:00:00 [facility] Hep B, Adol or Pedi 1999 Completed Unive rsity of Dosage 00:00:00 [facility] Hep B, Adol or Pedi 1999 Completed Unive rsity of Dosage 00:00:00 [facility] Hep B, Adol or Pedi 1999 Completed Unive rsity of Dosage 00:00:00 [facility] Hep B, Adol or Pedi 1999 Completed Unive rsity of Dosage 00:00:00 [facility] Hep B, Adol or Pedi 1999 Completed Unive rsity of Dosage 00:00:00 [facility] Hep B, Adol or Pedi 1999 Completed Unive rsity of Dosage 00:00:00 [facility] Hep B, Adol or Pedi 1999 Completed Unive rsity of Dosage 00:00:00 [facility] Hep B, Adol or Pedi 1999 Completed Unive rsity of Dosage 00:00:00 [facility] Hep B, Adol or Pedi 1999 Completed Unive rsity of Dosage 00:00:00 [facility] Vital Signs Vital Name Observation Time Observation Value Comments Source Systolic blood 2022-09-16 13:15:00 114 mm[Hg] Univer sity of pressure [facility] Diastolic blood 2022-09-16 13:15:00 69 mm[Hg] Unive rs[facility] of pressure [facility] Heart rate 2022-09-16 13:15:00 81 /min [facility] [place] [facility] Body temperature 2022-09-16 13:15:00 37.17 Jenni [facility] [place] [facility] Respiratory rate 2022-09-16 13:15:00 18 /min [facility] [place] [facility] Body height 2022-09-16 13:15:00 154.9 cm [facility] [place] [facility] Body weight 2022-09-16 13:15:00 52.617 kg [facility] [place] [facility] BMI 2022-09-16 13:15:00 21.92 kg/m2 [facility] [place] [facility] Systolic blood 2022-09-13 18:27:00 139 mm[Hg] [facility] pressure [facility] Diastolic blood 2022-09-13 18:27:00 67 mm[Hg] [facility] pressure [facility] Heart rate 2022-09-13 18:27:00 70 /min [facility] [place] [facility] Respiratory rate 2022-09-13 18:27:00 18 /min [facility] [place] [facility] Body height 2022-09-13 18:27:00 154.9 cm [facility] [place] [facility] Body weight 2022-09-13 18:27:00 53.252 kg [facility] [place] [facility] BMI 2022-09-13 18:27:00 22.18 kg/m2 [facility] [place] [facility] Oxygen saturation in 2022-09-13 18:27:00 99 /min University of Arterial blood by [facility] Pulse oximetry Branch Systolic blood 2022-08-26 21:19:19 116 mm[Hg] [facility]iver s[facility] of pressure [facility] Diastolic blood 2022-08-26 21:19:19 75 mm[Hg] [facility] rs[facility] pressure [facility] Heart rate 2022-08-26 21:19:19 79 /min [facility] [place] [facility] Respiratory rate 2022-08-26 21:19:19 23 /min [facility] [place] [facility] Oxygen saturation in 2022-08-26 21:19:19 100 /min [facility]terial blood by [place] [facility]xim[facility] Body temperature 2022-08-26 18:23:00 36.78 Jenni [facility] [place] [facility] Body height 2022-08-26 18:23:00 160 cm [facility] [place] [facility] Body weight 2022-08-26 18:23:00 54.432 kg [facility] [place] [facility] BMI 2022-08-26 18:23:00 21.26 kg/m2 [facility] [place] [facility] Systolic blood 2022-08-12 19:31:00 104 mm[Hg] [facility] pressure [facility] Diastolic blood 2022-08-12 19:31:00 71 mm[Hg] [facility] pressure [facility] Heart rate 2022-08-12 19:31:00 73 /min [facility] [place] [facility] Respiratory rate 2022-08-12 19:31:00 18 /min [facility] [place] [facility] Body height 2022-08-12 19:31:00 154.9 cm [facility] Body weight 2022-08-12 19:31:00 54.432 kg [facility] BMI 2022-08-12 19:31:00 22.67 kg/m2 [facility] [place] [facility] Oxygen saturation in 2022-08-12 19:31:00 97 /min University of Arterial blood by [facility] Pulse oximetry Branch Systolic blood 2022-07-01 19:01:00 131 mm[Hg] Univer [facility]ity of pressure [facility] Diastolic blood 2022-07-01 19:01:00 77 mm[Hg] [facility]ive rs[facility] of pressure [facility] Heart rate 2022-07-01 19:01:00 74 /min [facility] [place] [facility] Respiratory rate 2022-07-01 19:01:00 18 /min [facility] Body weight 2022-07-01 19:01:00 53.071 kg [facility] [place] [facility] BMI 2022-07-01 19:01:00 22.11 kg/m2 [facility] [place] [facility] Oxygen saturation in 2022-07-01 19:01:00 98 /min University of Arterial blood by [facility] Pulse oximetry Branch Systolic blood 2022-04-28 20:26:00 122 mm[Hg] Univer [facility] of pressure [facility] Diastolic blood 2022-04-28 20:26:00 73 mm[Hg] [facility]ive rs[facility] of pressure [facility] Heart rate 2022-04-28 20:26:00 92 /min [facility] [place] [facility] Body temperature 2022-04-28 20:26:00 36.56 Jenni [facility] [place] [facility] Respiratory rate 2022-04-28 20:26:00 18 /min [facility] [place] [facility] Body height 2022-04-28 20:26:00 154.9 cm [facility] [place] [facility] Body weight 2022-04-28 20:26:00 54.432 kg [facility] [place] [facility] BMI 2022-04-28 20:26:00 22.67 kg/m2 [facility] Oxygen saturation in 2022-04-28 20:26:00 99 /min [facility] Arterial blood by [place] [facility] Pulse oximetry Branch Systolic blood 2022-04-21 23:35:00 113 mm[Hg] Univer sity of pressure [facility] Diastolic blood 2022-04-21 23:35:00 73 mm[Hg] Unive rs[facility] of pressure [facility] Heart rate 2022-04-21 23:35:00 93 /min [facility] Body temperature 2022-04-21 23:35:00 37.61 Jenni [facility] [place] [facility] Respiratory rate 2022-04-21 23:35:00 18 /min [facility] [place] [facility] Body height 2022-04-21 23:35:00 154.9 cm [facility] Body weight 2022-04-21 23:35:00 52.617 kg [facility] BMI 2022-04-21 23:35:00 21.92 kg/m2 [facility] Oxygen saturation in 2022-04-21 23:35:00 98 /min University of Arterial blood by [employer] michael Pulse oximetry Branch Systolic blood 2022-04-21 13:32:00 111 mm[Hg] Univer sity of pressure [facility] Diastolic blood 2022-04-21 13:32:00 55 mm[Hg] [facility]ive rs[facility] of pressure [facility] Heart rate 2022-04-21 13:32:00 73 /min [facility] Body temperature 2022-04-21 13:32:00 36.72 Jenni [facility] [place] [facility] Respiratory rate 2022-04-21 13:32:00 16 /min [facility] Oxygen saturation in 2022-04-21 13:32:00 100 /min University of Arterial blood by [facility] michael Pulse oximetry Branch Body height 2022-04-18 14:40:00 154.9 cm [facility] Body weight 2022-04-18 14:40:00 52.164 kg [facility] BMI 2022-04-18 14:40:00 21.73 kg/m2 [facility] Systolic blood 2022-03-21 21:18:00 104 mm[Hg] [facility]iver [facility] pressure [facility] Diastolic blood 2022-03-21 21:18:00 54 mm[Hg] [facility]ive rs[facility] of pressure [facility] Heart rate 2022-03-21 21:18:00 71 /min [facility] Body temperature 2022-03-21 21:18:00 36.72 Jenni [facility] [place] [facility] Respiratory rate 2022-03-21 21:18:00 14 /min [facility] [place] [facility] Oxygen saturation in 2022-03-21 21:18:00 99 /min [facility] of Arterial blood by [facility] michael Pulse oximetry Branch Body weight 2022-03-21 03:13:00 57 kg [facility] BMI 2022-03-21 03:13:00 22.26 kg/m2 [facility] Oxygen saturation in 2022-03-17 20:03:00 99 /min [facility] of Arterial blood by [facility] michael Pulse oximetry Branch Systolic blood 2022-03-17 20:03:00 125 mm[Hg] Univer s[facility] of pressure [facility] Diastolic blood 2022-03-17 20:03:00 81 mm[Hg] [facility] rs[facility] pressure [facility] Heart rate 2022-03-17 20:03:00 85 /min [facility] [place] [facility] Body temperature 2022-03-17 20:03:00 37.06 Jenni [facility] [place] [facility] Respiratory rate 2022-03-17 20:03:00 18 /min [facility] [place] [facility] Systolic blood 2022-02-09 16:17:00 127 mm[Hg] [...] 99 /min [facility] Arterial blood by [place] [facility] Pulse oximetry Branch Systolic blood 2022-01-31 21:12:00 110 mm[Hg] [facility] pressure [facility] Diastolic blood 2022-01-31 21:12:00 59 mm[Hg] [facility] rs[facility] of pressure [facility] Heart rate 2022-01-31 21:12:00 79 /min [facility] Body temperature 2022-01-31 21:12:00 36.33 Jenni [facility] [place] [facility] Respiratory rate 2022-01-31 21:12:00 16 /min [facility] Oxygen saturation in 2022-01-31 21:12:00 97 /min [facility] Arterial blood by [place] [facility] Pulse oximetry Branch Body height 2022-01-31 [...] 2022-01-28 18:12:00 17 /min [facility] [place] [facility] Oxygen saturation in 2022-01-28 18:12:00 99 /min [facility] of Arterial blood by [facility] Pulse oximetry Branch Body temperature 2022-01-28 18:07:00 36.61 Jenni [facility] [place] [facility] Body height 2022-01-28 18:07:00 154.9 cm [facility] Body weight 2022-01-28 18:07:00 54.568 kg [facility] BMI 2022-01-28 18:07:00 22.73 kg/m2 [facility] Systolic blood 2022-01-27 19:39:00 120 mm[Hg] Univer [facility] pressure [facility] Diastolic blood 2022-01-27 19:39:00 75 mm[Hg] [facility] rs[facility] pressure [facility] Heart rate 2022-01-27 19:39:00 78 /min [facility] Body temperature 2022-01-27 19:39:00 36.78 Jenni [facility] [place] [facility] Respiratory rate 2022-01-27 19:39:00 18 /min [facility] Body height 2022-01-27 19:39:00 154.9 cm [facility] Body weight 2022-01-27 19:39:00 54.795 kg [facility] BMI 2022-01-27 19:39:00 22.82 kg/m2 [facility] Oxygen saturation in 2022-01-27 19:39:00 98 /min [facility] of Arterial blood by [facility] Pulse oximetry Branch Systolic blood 2021-12-24 20:21:00 107 mm[Hg] Univer sity of pressure [facility] Diastolic blood 2021-12-24 20:21:00 66 mm[Hg] [facility]ive [facility] of pressure [facility] Heart rate 2021-12-24 20:21:00 73 /min [facility] Body temperature 2021-12-24 20:21:00 36.83 Jenni [facility] [place] [facility] Body height 2021-12-24 20:21:00 154.9 cm [facility] Body weight 2021-12-24 20:21:00 54.522 kg [facility] BMI 2021-12-24 20:21:00 22.71 kg/m2 [facility] Oxygen saturation in 2021-12-24 20:21:00 100 /min [facility] Arterial blood by [facility] Pulse oximetry Branch Systolic blood 2022-08-26 21:19:19 116 mm[Hg] [facility] pressure [facility] Diastolic blood 2022-08-26 21:19:19 75 mm[Hg] [facility] pressure [facility] Heart rate 2022-08-26 21:19:19 79 /min [facility] Respiratory rate 2022-08-26 21:19:19 23 /min [facility] Oxygen saturation in 2022-08-26 21:19:19 100 /min [facility] of Arterial blood by [facility] Pulse oximetry Branch Body temperature 2022-08-26 18:23:00 36.78 Jenni [facility] Body height 2022-08-26 18:23:00 160 cm [facility] Body weight 2022-08-26 18:23:00 54.432 kg [facility] BMI 2022-08-26 18:23:00 21.26 kg/m2 [facility] Systolic blood 2022-05-26 20:08:00 123 mm[Hg] [facility] of pressure [facility] Diastolic blood 2022-05-26 20:08:00 71 mm[Hg] [facility] rs[facility] of pressure [facility] Heart rate 2022-05-26 20:08:00 89 /min [facility] Respiratory rate 2022-05-26 20:08:00 18 /min [facility] Body height 2022-05-26 20:08:00 154.9 cm [facility] Body weight 2022-05-26 20:08:00 52.935 kg [facility] BMI 2022-05-26 20:08:00 22.05 kg/m2 [facility] Body temperature 2022-04-28 20:26:00 36.56 Jenni [facility] Oxygen saturation in 2022-04-28 20:26:00 99 /min [facility] Arterial blood by [facility] Pulse oximetry Branch Procedures Procedure Date / Time Performing Source Performed Clinician POCT TEST 2022-09-16 Lesley Li [facility] [facility] [place] 00:00:00 [facility] URINALYSIS 2022-08-26 [place]alls [facility] [place] 19:48:00 [facility] POCT TEST 2022-08-26 Key Smalls [facility] [facility] [place] 19:48:00 [facility] URINALYSIS 2022-08-26 Key Smalls [facility] [place] 19[place]48:00 [facility] POCT TEST 2022-08-26 Key Smalls [facility] [facility] [place] 19:48:00 [facility] XR CHEST 1 VW 2022-08-26 Key Smalls [place] [facility] [place] 19:16:24 [facility] XR CHEST 1 VW 2022-08-26 Key Smalls [facility] [place] 19:16:24 [facility] COMP. METABOLIC PANEL (83987) 2022-08-26 Key Smalls [facility] [place] 18:52:00 [facility] CBC WITH DIFF 2022-08-26 Key Smalls [place] [facility] [place] 18[place]52:00 [facility] CBC WITH DIFF 2022-08-26 Key Smalls [facility] [place] 18:52:00 [facility] COMP. METABOLIC PANEL ([id number]) 2022-08-26 Key Smalls [facility] [place] 18:52:00 [facility] HCV ANTIBODY 2022-08-17 Fidel [facility] ex 12:57:00 Medical Branch VITAMIN D, 25-OH 2022-08-17 Fidel [facility] 12:57:00 [facility] COMP. METABOLIC PANEL ([id number]) 2022-08-17 [facility] 12[facility]57[facility]00 [facility] FOLLICLE STIMULATING HORMONE 2022-08-17 Axel Parra [facility] 12:57:00 Medical Branch TESTOSTERONE, FEMALE/CHILDREN 2022-08-17 Axel Parra [facility] 12:57:00 Medical Branch CORTISOL AM 2022-08-[address] [facility] [place] 12:57:00 [facility] GC & CHLAMYDIA AMPLIFIED 2022-08-17 Axel Parra [facility] ASSAY 12:57:00 [facility] VITAMIN B12, LEVEL 2022-08-17 Axel Parra [facility] 12:57:00 [facility] VITAMIN B6, PLASMA 2022-08-17 Axel Parra [facility] 12:57:00 [facility] VITAMIN B1 (THIAMINE), WHOLE 2022-08-17 Axel Parra [facility] BLOOD 12:57:00 [facility] IRON 2022-08-[address] [facility] ex 12:57:00 [facility] FERRITIN SERUM 2022-08-17 Axel Parra [facility] 12:57:00 [facility] LUTEINIZING HORMONE SERUM 2022-08-17 Axel Parra [facility] 12:57:00 [facility] VITAMIN B6, PLASMA 2022-08-17 Axel Parra [facility] 12:57:00 [facility] FERRITIN SERUM 2022-08-17 Axel Parra [facility] 12:57:00 Medical Branch CORTISOL AM 2022-08-17 Axel Parra [facility] 12:57:00 [facility] IRON PANEL 2022-08-[address] [facility] ex 12:57:00 [facility] VITAMIN B12, LEVEL 2022-08-17 Axel Parra [facility] 12:57:00 [facility] COMP. METABOLIC PANEL ([id number]) 2022-08-17 Axel Parra [facility] 12:57:00 [facility] FOLLICLE STIMULATING HORMONE 2022-08-17 Axel Parra [facility] 12:57:00 [facility] LUTEINIZING HORMONE SERUM 2022-08-17 Axel Parra [facility] 12:57:00 [facility] CBC WITH DIFF 2022-08-[address] [facility] [place] 12:57:00 Medical Branch HCV ANTIBODY 2022-08-[address] [facility] [place] 12:57:00 Medical Branch GC & CHLAMYDIA AMPLIFIED 2022-08-17 Axel Parra [facility] ASSAY 12:57:00 Medical Branch TESTOSTERONE, FEMALE/CHILDREN 2022-08-17 [facility] 12[facility]57:00 [facility] Branch VITAMIN D, 25-OH 2022-08-17 Axel Parra [facility] 12:57:00 Medical Branch VITAMIN B1 (THIAMINE), WHOLE 2022-08-17 [facility] 12:57:00 [facility] Branch POCT TEST 2022-08-12 [facility] 20:56:00 [facility] REFERRAL- REQUEST/RESPONSE 2022-08-11 Doctor Unassigned, [facility] [place] 05:01:00 [facility] REFERRAL- REQUEST/RESPONSE 2022-08-11 Doctor Unassigned, [facility] [place] 05:01:00 [facility] PSYCHIATRY CLINIC PATIENT 2022-05-26 Doctor Unassigned, [facility] [place] INFORMATION 06:01:00 [facility] EXTERNAL PROVIDER RECORDS 2022-05-04 Doctor Unassigned, [facility] [place] 06:01:00 [facility] EXTERNAL PROVIDER RECORDS 2022-05-04 Doctor Unassigned, [facility] [place] 06:01:00 [facility] POCT MOLECULAR FLU 2022-04-21 Unknown, Attending [facility] 23:44:00 Medical Branch POCT MOLECULAR FLU 2022-04-21 Unknown, Attending [facility] 23:44:00 Medical Branch POCT MOLECULAR STREP 2022-04-21 Unknown, [facility] 23:42:00 Medical [facility] POCT MOLECULAR STREP 2022-04-21 Unknown, [facility] 23:42:00 [facility] EPILEPSY MONITORING 2022-04-19 [facility] [place] [facility] HOSPITAL ADMISSION 2022-04-18 Doctor Unassigned, [facility] 06:01:00 [facility] EPILEPSY MONITORING UNIT 2022-04-18 Doctor Unassigned, [facility] DOCUMENTATION 06:01:00 [facility] [place] MR BRAIN W WO CONTRAST WITH 2022-04-05 Roxane [facility] NEUROQUANT 23:56:00 Latoshaclarence [facility] CONSENT/REFUSAL FOR DIAGNOSIS 2022-04-05 Doctor Unassigned, [facility] AND TREATMENT 22:56:01 [facility] [place] CONSENT/REFUSAL FOR DIAGNOSIS 2022-04-05 Doctor Unassigned, [facility]AT[facility] 22:56:01 [facility] ASSIGNMENT OF BENEFITS 2022-04-05 Doctor Unassigned, [facility] 22:55:42 [facility] ASSIGNMENT OF BENEFITS 2022-04-05 Doctor Unassigned, [facility] 22:55:42 [facility] PATIENT QUESTIONNAIRE 2022-04-05 Doctor Marciessigned, [facility] 06:01:00 [facility] [place] URINALYSIS 2022-03-21 Toni [facility] 11:42:00 Medical Branch URINE DRUG (LCMSMS) - 2022-03-21 Toni [facility] COMPREHENSIVE DRUG PANEL 11:42:00 Medical Branch [facility]YSIS [facility]22-03-21 [facility] BASIC METABOLIC PANEL (NA, K, 2022-03-21 Chantel Muñoz [facility] CL, CO2, GLUCOSE, BUN, 10:40:00 [facility] CREATININE, CA) CBC WITH DIFF 2022-03-21 Toni [facility] xa 10:40:00 Medical Branch CBC WITH DIFF 2022-03-21 Toni [facility] xa 10:40:00 Medical Branch BASIC METABOLIC PANEL (NA, K, 2022-03-21 Chantel Muñoz [facility] CL, CO2, GLUCOSE, BUN, 10:40:00 [facility] CREATININE, CA) ELECTROENCEPHALOGRAM 2022-03-21 Toni [facility] 00:00:00 Medical Branch ELECTROENCEPHALOGRAM 2022-03-21 Toni [facility] 00:00:00 Medical Branch EKG-12 LEAD 2022-03-20 Jennifer [facility] 23:14:14 [facility]ORUS [facility]03-[facility] [place] 23:[facility]UM [facility]03-[facility] 23:[facility] TEST, SERUM 2022-03-20 Jennifer Dennison [facility] 23:07:00 Medical Branch COMP. METABOLIC PANEL ([id number]) 2022-03-20 Jennifer Dennison [facility] 23:07:00 Medical Branch CBC WITH DIFF 2022-03-[address] [facility] [place] 23:07:00 Medical Branch KEPPRA (LEVETIRACETAM) 2022-03-20 Jennifer Dennison [facility] 23:07:00 Medical Branch KEPPRA (LEVETIRACETAM) 2022-03-20 Jennifer Dennison [facility] 23:07:00 Medical Branch COMP. METABOLIC PANEL ([id number]) 2022-03-20 Jennifer Dennison [facility] 23:07:00 Medical Branch CBC WITH DIFF 2022-03-[address] [facility] [place] 23:07:00 [facility] TEST, SERUM 2022-03-20 Jennifer Dennison [facility] 23:07:00 Medical Branch MAGNESIUM 2022-03-20 [facility] [place] 23:07:00 [facility] PHOSPHORUS 2022-03-20 [facility] 23:07[facility]00 [facility] HB ECG ROUTINE & RHYTHM STRIP 2022-03-20 Jennifer Dennison [facility] 22:57:05 [facility] [place] HOSPITAL ADMISSION 2022-03-20 Doctor Unassigned, [facility] 06:01:00 [facility] [facility] ADMISSION 2022-03-20 Doctor Unassigned, [facility] 06:01:00 [employer] THYROID STIMULATING HORMONE 2022-03-14 Axel Parra [facility] 20:01:00 [facility] Branch FREE T3 2022-03-14 Fidel [facility] 20:01:00 Medical Branch FREE T4 2022-03-14 Fidel [facility] 20:01:00 Medical Branch ELECTROENCEPHALOGRAM 2022-01-31 Monet Goodwin [facility] 00:00:00 [facility] POCT TEST 2022-01-30 Monse Chavez [facility] 23:11:00 [facility] URINALYSIS 2022-01-30 Monse Chavez [facility] 23:08:00 [facility] URINE DRUG (IMMUNOASSAY) - 2022-01-30 [facility] COMPREHENSIVE DRUG SCREEN W/O 23:08:00 Id dical Branch REFLEX COVID-19 (ID NOW RAPID 2022-01-30 [facility] TESTING) 22:13:00 [facility] LAB ONLY COVID INTERPRETATION 2022-01-30 [facility] 22:13:00 [facility] PHOSPHORUS 2022-01-30 [facility] 21:49:00 [facility] MAGNESIUM 2022-01-30 [facility] 21:49:00 [facility] TEST, SERUM 2022-01-30 [facility] 21:49:00 [facility] COMP. METABOLIC PANEL (76511) 2022-01-30 Monse Chavez [facility] 21:49:00 [facility] ETHANOL 2022-01-30 [facility] xas 21:49:00 [facility] CBC WITH DIFF 2022-01-30 Monse Chavez [facility] 21:49:00 [facility] KEPPRA (LEVETIRACETAM) 2022-01-30 [facility] 21:49:00 [facility] LACTIC ACID WHOLE BLOOD 2022-01-30 Monse Chavez [facility] 21:48:00 [facility] POCT GLUCOSE (AUTOMATED) 2022-01-30 [facility] 21:46:00 [facility] CONSENT/REFUSAL FOR DIAGNOSIS 2022-01-30 Doctor Unassigned, [facility] AND TREATMENT 21:37:27 [facility] ADMISSION 2022-01-30 Doctor Unassigned, [facility] 05:01:00 [facility] Encounters Start End Encounter Admission Attending Care Care Encounter Source Date/Time Date/Time Type Type Clinicians Facility Department ID 2021-03-08 Emergency [facility] [id number] Univers 03:04:24 ity [facility] 2023-03-24 2023-03-24 Outpatient R ADUM, [facility] [id number] Univers 13:00:00 13:00:00 LESLEY bahena [facility] 2022-11-04 2022-11-04 Outpatient R FIDEL, [facility] [id number] Univers 13:00:00 13:00:00 AXEL bahena [facility] 2022-10-26 2022-10-26 [facility] [id number] Univers 15:40:00 15:40:00 PETER josef [facility] 2022-09-20 2022-09-[address] [facility], [facility] [id number] Univers 11:00:00 11:00:00 LESLEY bahena [facility] 2022-09-19 2022-09-19 Telephone [facility] 1.2.840.114 1 [id number] Univers 00:00:00 00:00:00 Axel SANCHEZ 350.1.13.10 i ty of [place] [id number] Me dical NAL 044 [facility] 2022-09-16 2022-09-16 [facility] 1.2.840.114 [id number] Univers 09:30:00 09:30:00 Visit Lesley SANCHEZ 350.1.13.10 it[place] of [place] [id number] Me dical NAL 134 [facility] 2022-09-16 2022-09-16 Outpatient R AD, [facility] [id number] Univers 09:30:00 08:49:34 LESLEY ena [facility] 2022-09-14 2022-09-14 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, 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1.13.10 i ty of [place] [id number] [facility] 044 [facility] 2022-09-08 2022-09-08 Telephone [facility] 1.2.840.114 [id number] Univers 00:00:00 00:00:00 Axel SANCHEZ 350.1.13.10 i ty of [place] [id number] Id dical NAL 044 [facility] 2022-08-26 2022-08-26 Emergency X Key SMALLS [facility] ERT [id number] Univers 13:24:00 16:44:00 ity of [facility] 2022-08-26 2022-08-26 Emergency [facility] [place] 1.2.840.8 [id number] Univers 13:24:00 16:44:00 Myra 72846.1.1 ity of 3.104.2.7 [place] .3.114337 Medica l .8 [place] 2022-08-26 2022-08-26 Telephone Fatou, 1.2.840.5 [id number] Univers 00:00:00 00:00:00 Anusha 19294.1.1 it y of 3.104.2.7 [place] .3.727638 Medica l .8 [place] 2022-08-26 2022-08-26 Travel 1.2.840.1 1.2.476.671 [id number] [id number] Univers 00:00:00 00:00:00 36753.1.1 350.1.13.10 ity of 3.104.2.7 4.[place].7.3.698 [place] .3.681796 084.8 Medica l .8 [place] 2022-08-25 2022-08-25 Outpatient R JOSE [facility] [id number] Univers 14:15:00 14:38:30 TRANSON ity of [facility] 2022-08-25 2022-08-25 Travel 1.2.840.1 1.2.299.060 [id number] Univers 00:00:00 00:00:00 86230.1.1 350.1.13.10 ity of 3.104.2.7 4.2.7.3.698 [place] .3.103745 084.8 Medica l .8 [place] 2022-08-17 2022-08-17 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, [facility] 1.2.840.1 14 [id number] Univers 07:30:00 08:08:45 Visit Fidel [facility] 350.1.13.10 ity of [place] 4.2.7.2.686 Christiano as DICK?BLEA [id number] Id fabian [address] MEDICAL OFFICE BUILDING 2022-08-17 2022-08-17 Outpatient [facility] 1044 [id number] Univers 07:30:00 07:30:00 AXEL ity of [facility] 2022-08-17 2022-08-17 Travel 1.2.840.1 1.2.650.656 [id number] [id number] Univers 00:00:00 00:00:00 34255.1.1 350.1.13.10 ity of 3.104.2.7 4.2.7.3.698 [place] .3.482474 084.8 Medica l .8 [place] 2022-08-12 2022-08-12 Office Ramana 1.2.840.6 [id number] Univers 16:00:00 16:00:00 Visit Ana 57220.1.1 ity of 3.104.2.7 [place] .3.592164 Medica l .8 [place] 2022-08-12 2022-08-12 Outpatient R RAMANA [facility] [id number] Univers 16:00:00 14:51:59 AAN ity of [facility] 2022-08-12 2022-08-12 Travel 1.2.840.1 1.2.465.968 [id number] [id number] Univers 00:00:00 00:00:00 30767.1.1 350.1.13.10 ity of 3.104.2.7 4.2.7.3.698 [place] .3.959879 084.8 Medica l .8 [place] 2022-08-11 2022-08-11 Telephone Fidel 1.2.840.4 [id number] Univers 00:00:00 00:00:00 Axel 65190.1.1 ity of 3.104.2.7 [place] .3.933099 Medica l .8 [place] 2022-08-11 2022-08-11 Orders Doctor 1.2.840.4 [id number] [id number] Univers 00:00:00 00:00:00 Only Unassigned, 52355.1.1 ity of [place] 3.104.2.7 [place] .3.418899 Medica l .8 [place] 2022-08-10 2022-08-10 Telephone Gui 1.2.840.0 [id number] Univers 00:00:00 00:00:00 Tristen 82446.1.1 ity of 3.104.2.7 [place] .3.890842 Medica l .8 [place] 2022-07-26 2022-07-26 Telephone Jeannine Shell 1.2.840.3 [id number] Univers 00:00:00 00:00:00 S 77476.1.1 ity of 3.104.2.7 [place] .3.182607 Medica l .8 [place] 2022-07-01 2022-07-01 Outpatient R FIDEL [facility] [id number] Univers 13:00:00 13:57:50 AXEL bahena [facility] 2022-07-01 2022-07-01 Office Fidel, 1.2.840.3 [id number] Univers 13:00:00 13:57:50 Visit Peter 43183.1.1 ity of 3.104.2.7 [place] .3.411349 Medica l .8 [place] 2022-07-01 2022-07-01 Travel 1.2.840.1 1.2.877.050 4395 [id number] Univers 00:00:00 00:00:00 24784.1.1 350.1.13.10 ity of 3.104.2.7 4.2.7.3.698 [place] .3.444669 084.8 Medica l .8 [place] 2022-05-26 2022-05-26 [facility] [id number] Univers 14:15:00 14:54:05 TRANSON ity [facility] 2022-05-26 2022-05-26 Travel 1.2.840.1 1.2.348.069 9246 [id number] Univers 00:00:00 00:00:00 52997.1.1 350.1.13.10 ity of 3.104.2.7 4.2.7.3.698 [place] .3.600347 084.8 Medica l .8 [place] 2022-05-26 2022-05-26 Orders Doctor SHAUNA 1.2.840.114 [id number] Univers 00:00:00 00:00:00 Only Unassigned, FREDI 350.1.13.10 ity of [place] 4.2.7.2.686 Christiano as [id number] [address] 2022-05-20 2022-05-20 Out[facility] [id number] [id number] Univers 15:40:00 15:40:00 AXEL ity [facility] 2022-05-04 2022-05-04 Orders Doctor 1.2.840.4 [id number] Univers 00:00:00 00:00:00 Only Unassigned, 74032.1.1 ity of [place] 3.104.2.7 [place] .3.883957 Medica l .8 [place] 2022-04-28 2022-04-28 Office Jeannine Shell 1.2.840.4 [id number] Univers 15:00:00 15:20:00 Visit S 36337.1.1 ity of 3.104.2.7 [place] .3.306886 Medica l .8 [place] 2022-04-28 2022-04-28 Outpatient R JEANNINE SHELL [facility] [id number] Univers 15:00:00 15:00:00 ity of [facility] 2022-04-28 2022-04-28 Letter Jeannine Shell 1.2.840.7 [id number] Univers 00:00:00 00:00:00 (Out) S 36649.1.1 ity of 3.104.2.7 [place] .3.499622 Medica l .8 [place] 2022-04-27 2022-04-27 Telephone Fidel, 1.2.840.8 [id number] Univers 00:00:00 00:00:00 Peter 22936.1.1 ity of 3.104.2.7 [place] .3.640829 Medica l .8 [place] 2022-04-22 2022-04-22 Transition Lindsay, 1.2.840.1 [id number] Univers 00:00:00 00:00:00 of Care Kathryn M 57947.1.1 ity of 3.104.2.7 [place] .3.542926 Medica l .8 [place] 2022-04-22 2022-04-22 Telephone Sun, 1.2.840.6 [id number] Univers 00:00:00 00:00:00 Felicitas L 62982.1.1 it y of 3.104.2.7 [place] .3.960391 Medica l .8 [place] 2022-04-21 2022-04-21 Urgent Unknown, Attending 1.2.840.1 [id number] Univers 17:40:00 18:04:41 Care Maggi Emanuel 90756.1.1 ity of 3.104.2.7 [place] .3.451531 Medica l .8 [place] 2022-04-21 2022-04-21 Outpatient R CHAU [facility] [id number] Univers 17:40:00 17:40:00 RANIA ity of [facility] 2022-04-18 2022-04-21 Inpatient R JEY [facility] [id number] Univers 08:05:00 12:15:00 RUMARYING ity of [facility] 2022-04-18 2022-04-21 [facility] Jeannine Shell S 1.2.840.1 [id number] Univers 08:05:00 12:15:00 Encounter Noah Khannaharper L 73813.1.1 ity of 3.104.2.7 [place] .3.475928 Medica l .8 [place] 2022-04-18 2022-04-18 Travel 1.2.840.1 1.2.293.923 9102 [id number] Univers 00:00:00 00:00:00 62715.1.1 350.1.13.10 ity of 3.104.2.7 4.2.7.3.698 [place] .3.344386 084.8 Medica l .8 [place] 2022-04-13 2022-04-13 Telephone Jeannine Shell 1.2.840.8 [id number] Univers 00:00:00 00:00:00 S 43917.1.1 ity of 3.104.2.7 [place] .3.656978 Medica l .8 [place] 2022-04-13 2022-04-13 Telephone Jeannine Shell 1.2.840.8 [id number] Univers 00:00:00 00:00:00 S 62111.1.1 ity of 3.104.2.7 [place] .3.140751 Medica l .8 [place] 2022-04-06 2022-04-06 Telephone Jeannine Shell 1.2.840.4 [id number] Univers 00:00:00 00:00:00 S 55870.1.1 ity of 3.104.2.7 [place] .3.481161 Medica l .8 [place] 2022-04-05 2022-04-05 Outpatient R SULEMANJEANNINE [facility] [id number] Univers 16:57:56 23:59:00 ity of [facility] 2022-04-05 2022-04-05 Hospital Jeannine Shell 1.2.840.0 [id number] Univers 16:57:56 23:59:00 Encounter S 20539.1.1 it y of 3.104.2.7 [place] .3.626485 Medica l .8 [place] 2022-03-30 2022-03-30 Telephone Fidel, 1.2.840.8 [id number] Univers 00:00:00 00:00:00 Peter 84744.1.1 ity of 3.104.2.7 [place] .3.386667 Medica l .8 [place] 2022-03-20 2022-03-21 Outpatient [facility] [place] [id number] Univers 16:50:00 17:54:00 CARMEN ity of [facility] 2022-03-20 2022-03-21 Emergency Jennifer Dennison 1.2.840.1 [id number] Univers 16:50:00 17:54:00 Sarthak Stern 84984.1.1 ity of [place] 3.104.2.7 [place] .3.642866 Medica l .8 [place] 2022-03-17 2022-03-17 Outpatient R SULEMAN JEANNINE [facility] [id number] Univers 14:00:00 14:47:08 ity of [facility] 2022-03-17 2022-03-17 Office Jeannine Shell 1.2.840.4 [id number] Univers 14:00:00 14:47:08 Visit S 17807.1.1 ity of 3.104.2.7 [place] .3.991352 Medica l .8 [place] 2022-03-17 2022-03-17 Travel 1.2.840.1 1.2.188.995 6559 [id number] Univers 00:00:00 00:00:00 41291.1.1 350.1.13.10 ity of 3.104.2.7 4.2.7.3.698 [place] .3.856709 084.8 Medica l .8 [place] 2022-03-14 2022-03-14 Outpatient R FIDEL, [facility] 1042 [id number] [facility] 14:00:00 15:23:47 PETER ity of [facility] 2022-03-14 2022-03-14 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 Axel Parra 1.2.840.1 [id number] [facility] 14:00:00 15:23:47 Visit 2, Adc Lab 55513.1.1 i ty of 3.104.2.7 [place] .3.635085 Medica l .8 [place] 2022-03-14 2022-03-14 Travel 1.2.840.1 1.2.004.119 1618 [id number] Univers 00:00:00 00:00:00 29488.1.1 350.1.13.10 ity of 3.104.2.7 4.2.7.3.698 [place] .3.815367 084.8 Medica l .8 [place] 2022-03-10 2022-03-10 Telephone Goodwin, 1.2.840.5 [id number] Univers 00:00:00 00:00:00 Monet 46466.1.1 ity of 3.104.2.7 [place] .3.764688 Medica l .8 [place] 2022-03-08 2022-03-08 Telephone Fidel, 1.2.840.5 [id number] Univers 00:00:00 00:00:00 Axel 76029.1.1 ity of 3.104.2.7 [place] .3.720207 Medica l .8 [place] 2022-03-03 2022-03-03 Telephone Jagdish, 1.2.840.9 [id number] Univers 00:00:00 00:00:00 Elsylviaza A 03090.1.1 ity of 3.104.2.7 [place] .3.312154 Medica l .8 [place] 2022-02-222022-02-22 Telephone [facility] 1.2.840.114 [id number] Univers 00:00:00 00:00:00 [facility] 350.1.13.10 it y [place] SAM[place] [id number] [address] OFFICE [facility] 2022-02-15 2022-02-15 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, Adc Lab [facility] 1.2.840.114 [id number] Univers 08:45:00 08:45:19 Visit Axel Parra 350.1.13.10 ity of [facility] 4.2.[place].2.[place] 590.6432648 Id dical NAL 353 [facility] 2022-02-15 2022-02-15 Outpatient [facility] 1042 [id number] Univers 08:45:00 08:45:00 AXEL bahena [facility] 2022-02-14 2022-02-14 Telephone [facility] 1.2.840.114 [id number] Univers 00:00:00 00:00:00 [facility] 350.1.13.10 it y of [place] [id number] [address] 2022-02-11 2022-02-12 Emergency X BILLY HEARD [facility] ERT 1 [id number] Univers 17:11:00 00:31:00 BILLY HEARD [facility] 2022-02-09 2022-02-09 Outpatient R FIDEL [facility] [id number] [id number] Univers 11:20:00 12:43:12 AXEL bahena [facility] 2022-02-09 2022-02-09 Office [facility] 1.2.840.114 [id number] Univers 11:20:00 12:43:12 Visit Axel HERRERAJOSEPH 350.1.13.10 i ty of [place] 4.2.7.2.686 [place] 204.2001551 Id dical NAL 044 [facility] 2022-02-03 2022-02-03 [facility]phone [facility] 1.2.287.677 9733 [id number] Univers 00:00:00 00:00:00 Cecilia PRIMARY 350.1.13.10 i ty of [facility] 4.2.7.2.[place] 342.0836208 Id dicnd 0[address] [place] 2022-01-30 2022-01-31 Outpatient X SY TIMMONS [facility] [place] [id number] Univers 16:38:00 17:47:00 ity of [facility] 2022-01-30 2022-01-31 Emergency [facility] 1.2.840. 114 [id number] Univers 16:38:00 17:47:00 Sy Timmons 350.1.13.10 ity of [facility] 4.2.7.2.686 Christiano as [id number] [address] 2022-01-28 2022-01-28 Outpatient [facility] [id number] Univers 13:00:00 13:46:25 ROSY bahena o f [facility] 2022-01-28 2022-01-28 Office [facility] 1.2.840.114 [id number] Univers 13:00:00 13:46:25 Visit Rosy SANCHEZ 350.1.13.10 ity [facility] 4.2.7.2.[place] [id number] [place] [id number] [facility] 2022-01-27 2022-01-27 Office Jeannine Shell [facility] 1.2.840.114 [id number] Univers 14:40:00 15:20:00 Visit [facility] 350.1.13.10 i ty of CL[place] [id number] [address] 2022-01-27 2022-01-27 Outpatient R JEANNINE SHELL [facility] [id number] Univers 14:40:00 14:40:00 ity of [facility] 2022-01-03 2022-01-03 Telephone [facility] 1.2.734.847 1512 7543 Univers 00:00:00 00:00:00 Felicitas Gold SPECIALTY 350.1.13.10 ity of [place] CENTER AT [id number] Id fabian HOANG [address] [place] [address] 2021-12-24 2021-12-24 Outpatient [facility] [id number] Univers 15:30:00 16:02:43 RUIQING ity [facility] 2021-12-24 2021-12-24 Office [facility] 1.2.840.114 [id number] Univers 15:30:00 16:02:43 Visit Ruiqing L SPECIALTY 350.1.13.10 ity of [place].2.[place] CENTER AT [id number] Id fabian HOANG [address] [place] [address] 2021-12-24 2021-12-24 Telephone [facility] 1.2.490.013 [id number] Univers 00:00:00 00:00:00 Ruiqing L SPECIALTY 350.1.13.10 ity of CARE 4.2.7.2.686 [facility] [id number] Id fabian HOANG [address] [place] [address] 2021-12-20 2021-12-20 Emergency X [facility] ERT [id number] Univers 11:12:00 13:24:00 MONSE bahena [facility] 2021-12-20 2021-12-20 Emergency [facility] 1.2.840.114 [id number] Univers 11:12:00 13:24:00 Monse SANCHEZ 350.1.13.10 ity [facility] 4.2.7.2.686 [facility] [id number] [address] 2021-12-15 2021-12-15 Emergency X [facility] ERT [id number] Univers 13:47:00 15:39:00 JUSTIN josef [facility] 2021-12-15 2021-12-15 Emergency [facility] 1.2.146.529 [id number] Univers 13:47:00 15:39:00 Justin SANCHEZ 350.1.13.10 i ty of [facility] 4.2.7.2.686 [facility] [id number] [address] 2021-12-06 2021-12-06 Outpatient R GILLIS, [facility] [id number] Univers 15:00:00 17:10:27 BÁRBARA bahena [facility] 2021-12-06 2021-12-06 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 Pcp-Lab [facility] 1.2.840.114 [id number] Univers 15:00:00 15:15:00 Visit Bárbara Gillis PRIMARY 350.1.13.10 ity of [place] [id number] Id dical [address] 2021-12-06 2021-12-06 Outpatient Agustin GILLIS [facility] [id number] Univers 10:30:00 12:03:40 BÁRBARA bahena [facility] 2021-12-06 2021-12-06 Office Perla Knight [facility] 1.2.840 .114 [id number] Univers 10:30:00 12:03:40 Visit Bárbara Gillis PRIMARY 350.1.13.10 ity of [place] 4[place].2.[place] [id number] Id dical [address] 2021-12-06 2021-12-06 Orders Doctor SHAUNA 1.2.840.114 [id number] Univers 00:00:00 00:00:00 Only Unassigned, FREDI 350.1.13.10 ity of [place] [facility] 4.2.7.2.686 [place] as [id number] [place] [address] [place] 2021-10-13 2021-10-13 Office Gui [facility] 1.2.840.114 [id number] Univers 11:15:00 11:27:34 Visit [facility] 350.1.13.10 it y of [place] [id number] [facility] [address] OFFICE BUILDING 2021-10-13 2021-10-13 Outpatient Agustin MESSER [facility] [id number] Univers 11:15:00 11:15:00 TRISTEN bahena [facility] 2021-10-13 2021-10-13 Outpatient Agustin MAC [facility] [id number] Univers 09:00:00 09:28:03 KAVITHA bahena [facility] 2021-10-13 2021-10-13 Office [facility] 1.2.840.114 [id number] Univers 09:00:00 09:28:03 Visit Kavitha Elam WOMEN'S 350.1.13.10 it y of [facility] 4.2.7.2.[place] [id number] [facility] [place] [address] [place] FRIENDSWO OD 2021-10-13 2021-10-13 Outpatient R [facility] [id number] Univers 09:00:00 09:28:03 KAVITHA bahena [facility] 2021-10-13 2021-10-13 Orders Doctor SHAUNA 1.2.840.114 [id number] Univers 00:00:00 00:00:00 Only Unassigned, FREDI 350.1.13.10 ity of [facility] 4.2.7.2.686 [place] [phone] [facility] [address] 2021-09-15 2021-09-15 Outpatient [facility] [id number] Univers 09:23:28 23:59:00 THALIA bahena [facility] 2021-09-15 2021-09-15 Outpatient [facility] [id number] Univers 09:23:28 23:59:00 THALIA ity [facility] 2021-09-15 2021-09-15 [facility] 1.2.840.114 [id number] Univers 09:23:28 23:59:00 Encounter Thalia SANCHEZ 350.1.13.10 ity [facility] 4.2.7.2.686 [facility] [phone] [facility] [address] 2021-09-15 2021-09-15 Outpatient [facility] [id number] Univers 09:22:55 09:22:55 THALIA ity [facility] 2021-09-15 2021-09-15 [facility] 1.2.840.114 [id number] Univers 09:22:55 09:22:55 Encounter Thalia SANCHEZ 350.1.13.10 ity [facility] [place] [id number] [facility] [address] 2021-09-10 2021-09-10 Outpatient Agustin KHANNA [facility] [id number] Univers 11:30:00 12:02:08 RUIQING ity [facility] 2021-09-10 2021-09-10 [facility] 1.2.840.114 [id number] Univers 11:30:00 12:02:08 [facility] 350.1.13.10 [place] [facility] [phone] [facility] HOANG 092 [facility] 2021-09-10 2021-09-10 Outpatient Agustin KHANNA [facility] [id number] Univers 11:30:00 11:30:00 [facility] 2021-09-10 2021-09-10 Outpatient Agustin NICHOLE [facility] [id number] Univers 08:30:00 09:08:59 [facility] 2021-09-10 2021-09-10 Office Dionisio [facility] 1.2.840.114 [id number] Univers 08:30:00 09:08:59 Visit [facility] 350.1.13.10 ity of [facility] 4[place] [phone] [facility] [address] 2021-08-31 2021-08-31 Office Luis Eduardo Myers [facility] 1.2.840.1 [id number] Univers 16:00:00 16:53:33 Visit Lilo Mendieta [facility] 350.1.13.10 [place] [id number] Id fabian [address] 2021-08-31 2021-08-31 Outpatient Agustin MENDIETA [facility] [id number] Univers 16:00:00 16:53:33 LILO itena [facility] 2021-08-31 2021-08-31 Outpatient Agustin MENDIETA [facility] [id number] Univers 16:00:00 16:00:00 LILO ity of [facility] 2021-08-23 2021-08-23 Transition MILTON Wagner 1.2.840.114 [id number] Univers 00:00:00 00:00:00 of Care Carleen GUTIERREZ 350.1.13.10 i ty of [place] [phone] [facility] [address] 2021-08-16 2021-08-20 Hospital Jeannine Shell 1.2.840.114 [id number] Univers 08:26:00 11:30:00 Encounter Ranjit Robb FREDI 350.1.13.10 ity [facility] 4.2.7.2.686 [place] as [phone] [facility] [address] 2021-08-16 2021-08-16 Outpatient R JEANNINE SHELL [facility] [id number] Univers 08:30:00 08:30:00 ity of [facility] 2021-08-16 2021-08-16 Outpatient R JEANNINE SHELL [facility] [id number] Univers 08:30:00 08:30:00 ity of [facility] 2021-08-16 2021-08-16 Outpatient R JEANNINE SHELL [facility] [id number] Univers 08:30:00 08:30:00 ity of [facility] 2021-08-16 2021-08-16 Outpatient R JEANNINE SHELL [facility] [place] [id number] Univers 08:30:00 08:30:00 ity [facility] 2021-08-13 2021-08-13 Laboratory Only, Adc Test [facility] 1.2.840. 114 [id number] Univers 08:00:00 08:15:00 Only Jeannine Shell 350.1.13.10 ity [facility] [place] [phone] [facility] [address] 2021-08-13 2021-08-13 Outpatient R JEANNINE SHELL [facility] [id number] Univers 08:00:00 08:00:00 ity [facility] 2021-08-11 2021-08-11 Telephone Gui [facility] 1.2.840.114 [id number] Univers 00:00:00 00:00:00 [facility] 350.1.13.10 [place] [phone] [facility] [address] OFFICE BUILDING 2021-08-10 2021-08-10 Telephone [facility] [id number] Univers 00:00:00 00:00:00 Cecilia PRIMARY 350.1.13.10 i ty of [place] [id number] [address] 2021-08-10 2021-08-10 [facility] 1.2.840.114 [id number] Univers 00:00:00 00:00:00 Monet PRIMARY 350.1.13.10 i ty [place] [id number] [address] 2021-08-06 2021-08-06 Patient Brooks [facility] 1.2.840.114 [id number] Univers 00:00:00 00:00:00 Secure MsZACHARIAH Elias 350.1.13.10 ity of [place] 4.2.7.2.686 T exjose guadalupe [place] [phone] [facility] [address] OFFICE BUILDING 2021-08-03 2021-08-03 [facility] [id number] Univers 14:07:56 23:59:00 CECILIA arrietay o f [facility] 2021-08-03 2021-08-03 Hospital [facility] 1.2.840.114 [id number] Univers 14:07:56 23:59:00 Encounter Cecilia SANCHEZ 350.1.13.10 ity of [place] [id number] [place] [address] [address] 2021-07-16 2021-07-16 Telephone Brooks [place] [id number] Univers 00:00:00 00:00:00 FREDI Sims 350.1.13.10 i ty of [facility] 4.2.7.2.686 [place] [id number] [facility] [address] 2021-07-15 2021-07-15 Outpatient R CHRISTINA [facility] [id number] Univers 13:00:00 23:59:00 CECILIA cifuentes [facility] 2021-07-15 2021-07-15 Outpatient R CHRISTINA [facility] [id number] Univers 13:00:00 13:00:00 CECILIA cifuentes [facility] 2021-07-15 2021-07-15 [facility] [id number] Univers 00:00:00 00:00:00 [facility] 350.1.13.10 i ty of [place]2.[place] [id number] [place] [address] [address] OFFICE BUILDING 2021-07-06 2021-07-06 Outpatient R CHRISTINA [facility] [id number] Univers 13:00:00 14:35:18 CECILIA cifuentes [facility] 2021-07-06 2021-07-06 Office de Monet Poe [facility] 1.2.84 0.114 [id number] Univers 13:00:00 14:35:18 Visit Cecilia Vasquez PRIMARY 350.1.13.1 0 ity of [place] [id number] [place] [address] [place] 2021-07-06 2021-07-06 Outpatient Agustin VASQUEZ [facility] [id number] Univers 13:00:00 14:35:18 CECILIA cifuentes [facility] 2021-04-19 2021-04-19 Outpatient R [facility] [id number] Univers 12:11:00 23:59:00 RAMIN, ity of [place] [facility] 2021-04-19 2021-04-19 [facility] 1.2.840.114 [id number] Univers 12:11:00 23:59:00 Encounter ramin, PRIMARY 350.1.13.10 ity of [place] [id number] [address] 2021-03-26 2021-03-26 Telephone Gui IDJOSE R 1.2.840.114 [id number] Univers 00:00:00 00:00:00 Tristen HEALTH 350.1.13.10 it y [place] [id number] [address] OFFICE BUILDING 2021-03-24 2021-03-24 [facility] 1.2.840.114 [id number] Univers 00:00:00 00:00:00 Tristen HEALTH 350.1.13.10 it y [place] [id number] [place] [address] [place] OFFICE BUILDING 2021-03-16 2021-03-16 Telephone Gui IDJOSE R 1.2.840.114 [id number] Univers 00:00:00 00:00:00 Tristen SPECIALTY 350.1.13.10 it[place] of [place] [id number] [address] 2021-03-11 2021-03-11 Telephone [facility] 1.2.840.114 [id number] Univers 00:00:00 00:00:00 Thalia C HEALTH 350.1.13.10 i ty of [place] [id number] [address] OFFICE BUILDING 2021-01-14 2021-01-14 Telephone [facility] 1.2.840.114 [id number] Univers 00:00:00 00:00:00 Thalia C Health 350.1.13.10 i ty [place] [phone] [address] Office Building 2020-11-12 2020-11-12 Outpatient Agutsin MESSER IDJOSE R [facility] [id number] Univers 10:00:00 10:00:00 TRISTEN itena [facility] 2020-10-30 2020-10-30 [facility] [id number] Univers 13:00:00 13:24:19 TRISTEN [facility] 2020-10-30 2020-10-30 Outpatient R [facility] [id number] Univers 13:00:00 13:00:00 [facility] 2020-10-22 2020-10-22 Emergency X [facility] ERT [id number] Univers 12:07:00 12:07:00 [facility] 2020-10-12 2020-10-12 Emergency X [facility] ERT [id number] Univers 19:23:00 19:23:00 [facility] 2020-09-07 2020-09-09 [facility] SNS [id number] Univers 10:28:00 16:20:00 TRISTEN [facility] 2020-09-07 2020-09-07 Emergency X [facility] ERT [id number] Univers 10:22:00 10:22:00 [facility] 2020-08-31 2020-08-31 [facility] [facility] 00:51:00 11:46:00 ALBERT 2019-07-19 2019-07-19 Emergency [facility] 1.2.840.114 [id number] 21:36:16 23:53:00 Monse Sanchez 350.1.13.10 [place] 4.2.7.2.686 [place] [id number] 084 2019-07-19 2019-07-19 Emergency [facility] [id number] Univers 21:22:00 21:22:00 MONSE [facility] Results Test Description Test Time Test Comments Results Result Comments Source POCT TEST 2022-09-16 13:30:00 Test Item Value Reference Range Interpretation Comme nts POCT PREG (test code = 1605) Negative On board controls acceptable with C Line (test code = 3574) Yes POCT PREG LOT # (test code = 3575) POCT PREG TEST DATE (test code = 3576) [id number] 13:30:00 Test Item Value Reference Range Interpretation Comments POCT PREG (test code = 1605) Negative On board controls acceptable with C Yes Line (test code = 3574) POCT PREG LOT # (test code = 3575) POCT PREG TEST DATE (test code = 3576) [facility] [id number] 19:48:00 Test Item Value Reference Range Interpretation Comments POCT PREG (test code = 1605) Negative On board controls acceptable with Present C Line (test code = 3574) POCT PREG LOT # (test code = HCG [id number]) POCT PREG TEST DATE (test 06/07/2023 code = 3576) Lab Interpretation (test code = Normal 94566-8) [facility] [id number] 19:48:00 Test Item Value Reference Range Interpretation Comments POCT PREG (test code = 1605) Negative On board controls acceptable with Present C Line (test code = 3574) POCT PREG LOT # (test code = HCG 20110908) POCT PREG TEST DATE (test 06/07/2023 code = 3576) Lab Interpretation (test code = Normal 56096-3) [facility] [id number] 19:48:00 Test Item Value Reference Range Interpretation Comments POCT PREG (test code = 1605) Negative On board controls acceptable with Present C Line (test code = 3574) POCT PREG LOT # (test code = HCG 20110908) POCT PREG TEST DATE (test 06/07/2023 code = 3576) Lab Interpretation (test code = Normal 12493-0) [facility]. METABOLIC PANEL ([id number])2022-08-26 19:44:55 Test Item Value Reference Range Interpretation Comments NA (test code = 137 mmol/L 135-145 7625630438) K (test code = 3.6 mmol/L 3.5-5.0 8439980657) CL (test code = 101 mmol/L 98-108 5594025380) CO2 TOTAL (test code = 25 mmol/L 23-31 7197273671) AGAP (test code = 11 2-16 6520253249) BUN (test code = 9 mg/dL 7-23 9745715831) GLUCOSE (test code = 175 mg/dL 70-110 H 1739052184) CREATININE (test code = 0.51 mg/dL 0.50-1.04 1579643979) TOTAL BILI (test code = 0.7 mg/dL 0.1-1.2 4835249728) CALCIUM (test code = 8.8 mg/dL 8.6-10.6 8172083203) T PROTEIN (test code = 7.0 g/dL 6.3-8.2 9492095840) ALBUMIN (test code = 4.5 g/dL 3.5-5.0 5780708866) ALK PHOS (test code = 66 U/L 34-122 2179163855) ALTv (test code = 21 U/L 5-35 1742-6) AST(SGOT) (test code = 22 U/L 13-40 7452829207) eGFR (test code = 149.4 mL/min/1.73m2 1416349954) LIA (test code = LIA) Association of [...] tests). Lab Interpretation Abnormal (test code = 94912-1) [facility]. METABOLIC PANEL ([id number])2022-08-26 19:44:55 Test Item Value Reference Range Interpretation Comments NA (test code = 137 mmol/L 135-145 2713229145) K (test code = 3.6 mmol/L 3.5-5.0 4172313495) CL (test code = 101 mmol/L 98-108 5905064962) CO2 TOTAL (test code = 25 mmol/L 23-31 5781169237) AGAP (test code = 11 2-16 1280209754) BUN (test code = 9 mg/dL 7-23 0529906403) GLUCOSE (test code = 175 mg/dL 70-110 H 2750862600) CREATININE (test code = 0.51 mg/dL 0.50-1.04 4849143994) TOTAL BILI (test code = 0.7 mg/dL 0.1-1.8 9379486955) CALCIUM (test code = 8.8 mg/dL 8.6-10.6 3603911464) T PROTEIN (test code = 7.0 g/dL 6.3-8.2 3780668463) ALBUMIN (test code = 4.5 g/dL 3.5-5.0 1443017951) ALK PHOS (test code = 66 U/L 34-122 9520546033) ALTv (test code = 21 U/L 5-35 1742-6) AST(SGOT) (test code = 22 U/L 13-40 8920736503) eGFR (test code = 149.4 mL/min/1.73m2 9863156586) LIA (test code = LIA) Association of [...] tests). Lab Interpretation Abnormal (test code = 94796-9) [facility]. METABOLIC PANEL ([id number])2022-08-26 19:44:55 Test Item Value Reference Range Interpretation Comments NA (test code = 137 mmol/L 135-145 1420060387) K (test code = 3.6 mmol/L 3.5-5.0 4967806623) CL (test code = 101 mmol/L 98-108 2544926950) CO2 TOTAL (test code = 25 mmol/L 23-31 5475938579) AGAP (test code = 11 2-16 4902251873) BUN (test code = 9 mg/dL 7-23 2847565546) GLUCOSE (test code = 175 mg/dL 70-110 H 5755381929) CREATININE (test code = 0.51 mg/dL 0.50-1.04 4080111443) TOTAL BILI (test code = 0.7 mg/dL 0.1-1.2 9726938516) CALCIUM (test code = 8.8 mg/dL 8.6-10.6 9125129059) T PROTEIN (test code = 7.0 g/dL 6.3-8.2 7895853936) ALBUMIN (test code = 4.5 g/dL 3.5-5.0 4355234181) ALK PHOS (test code = 66 U/L 34-122 5282379811) ALTv (test code = 21 U/L 1742-6) AST(SGOT) (test code = 22 U/L 1340 8841273527) eGFR (test code = 149.4 mL/min/1.73m2 5096568838) LIA (test code = LIA) Association of [...] tests). Lab Interpretation Abnormal (test code = 61108-6) [facility] WITH [id number] 19:26:31 Test Item Value Reference Range Interpretation Comments WBC (test code = 6.08 See_Comment [Automated 7314-2) message] The sy stem which generated this result transmitted reference range : 4.30 - 11.10 10*3/?L. The reference range was not used to interpret this result as normal/abnormal . RBC (test code = 4.33 See_Comment [Automated 025-6) message] The sy stem which generated this result transmitted reference range : 3.93 - 5.25 10*6/?L. The reference range was not used to interpret this result as normal/abnormal . HGB (test code = 13.3 g/dL 11.6-15.0 718-7) HCT (test code = 36.0 % 35.7-45.2 4544-3) MCV (test code = 83.1 fL 80.6-95.5 787-2) MCH (test code = 30.7 pg 25.9-32.8 785-6) MCHC (test code = 36.9 g/dL 31.6-35.1 H 786-4) RDW-SD (test code = 35.8 fL 39.0-49.9 L 64245-3) RDW-CV (test code = 11.9 % 12.0-15.5 L 788-0) PLT (test code = 229 See_Comment [Automated 777-3) message] The sy stem which generated this result transmitted reference range : 166 - 358 10*3/ ?L. The reference r vimal was not used to interpret this result as normal/abnormal . MPV (test code = 11.1 fL 9.5-12.9 96611-3) NRBC/100 WBC (test 0.0 See_Comment [Automat ed code = 3297721042) message] The system which generated this result transmitted reference range : 0.0 - 10.0 /100 WBCs. The refer ence range was not u sed to interpret th is result as normal/abnormal . NRBC x10^3 (test code See_Comment [Auto mated = 2425214798) message] The s ystem which generated this result transmitted reference range : 10*3/?L. The reference range was not used to interpret this result as normal/abnormal . GRAN MAT (NEUT) % 68.8 % (test code = 770-8) IMM GRAN % (test code 0.30 % = 9886305044) LYMPH % (test code = 24.5 % 736-9) MONO % (test code = 4.9 % 5905-5) EOS % (test code = 0.8 % 713-8) BASO % (test code = 0.7 % 706-2) GRAN MAT x10^3(ANC) 4.18 10*3/uL 1.88-7.09 (test code = 6761526568) IMM GRAN x10^3 (test 0.00-0.06 code = 2098839881) LYMPH x10^3 (test code 1.49 10*3/uL 1.32-3.29 = 731-0) MONO x10^3 (test code 0.30 10*3/uL 0.33-0.92 L = 742-7) EOS x10^3 (test code = 0.05 10*3/uL 0.03-0.39 711-2) BASO x10^3 (test code 0.04 10*3/uL 0.01-0.07 = 704-7) Lab Interpretation Abnormal (test code = 11694-6) [facility] WITH [id number] 19:26:31 Test Item Value Reference Range Interpretation Comments WBC (test code = 6.08 See_Comment [Automated 4390-2) message] The sy stem which generated this result transmitted reference range : 4.30 - 11.10 10*3/?L. The reference range was not used to interpret this result as normal/abnormal . RBC (test code = 4.33 See_Comment [Automated 099-8) message] The sy stem which generated this result transmitted reference range : 3.93 - 5.25 10*6/?L. The reference range was not used to interpret this result as normal/abnormal . HGB (test code = 13.3 g/dL 11.6-15.0 718-7) HCT (test code = 36.0 % 35.7-45.2 4544-3) MCV (test code = 83.1 fL 80.6-95.5 787-2) MCH (test code = 30.7 pg 25.9-32.8 785-6) MCHC (test code = 36.9 g/dL 31.6-35.1 H 786-4) RDW-SD (test code = 35.8 fL 39.0-49.9 L 83434-7) RDW-CV (test code = 11.9 % 12.0-15.5 L 788-0) PLT (test code = 229 See_Comment [Automated 107-3) message] The sy stem which generated this result transmitted reference range : 166 - 358 10*3/ ?L. The reference r vimal was not used to interpret this result as normal/abnormal . MPV (test code = 11.1 fL 9.5-12.9 51184-3) NRBC/100 WBC (test 0.0 See_Comment [Automat ed code = 5585697645) message] The system which generated this result transmitted reference range : 0.0 - 10.0 /100 WBCs. The refer ence range was not u sed to interpret th is result as normal/abnormal . NRBC x10^3 (test code See_Comment [Auto mated = 0880456084) message] The s ystem which generated this result transmitted reference range : 10*3/?L. The reference range was not used to interpret this result as normal/abnormal . GRAN MAT (NEUT) % 68.8 % (test code = 770-8) IMM GRAN % (test code 0.30 % = 0686418214) LYMPH % (test code = 24.5 % 736-9) MONO % (test code = 4.9 % 5905-5) EOS % (test code = 0.8 % 713-8) BASO % (test code = 0.7 % 706-2) GRAN MAT x10^3(ANC) 4.18 10*3/uL 1.88-7.09 (test code = 3705008725) IMM GRAN x10^3 (test 0.00-0.06 code = 0668019216) LYMPH x10^3 (test code 1.49 10*3/uL 1.32-3.29 = 731-0) MONO x10^3 (test code 0.30 10*3/uL 0.33-0.92 L = 742-7) EOS x10^3 (test code = 0.05 10*3/uL 0.03-0.39 711-2) BASO x10^3 (test code 0.04 10*3/uL 0.01-0.07 = 704-7) Lab Interpretation Abnormal (test code = 66920-4) [facility] WITH [id number] 19:26:31 Test Item Value Reference Range Interpretation Comments WBC (test code = 6.08 See_Comment [Automated 6690-2) message] The sy stem which generated this result transmitted reference range : 4.30 - 11.10 10*3/?L. The reference range was not used to interpret this result as normal/abnormal . RBC (test code = 4.33 See_Comment [Automated 789-8) message] The sy stem which generated this result transmitted reference range : 3.93 - 5.25 10*6/?L. The reference range was not used to interpret this result as normal/abnormal . HGB (test code = 13.3 g/dL 11.6-15.0 718-7) HCT (test code = 36.0 % 35.7-45.2 4544-3) MCV (test code = 83.1 fL 80.6-95.5 787-2) MCH (test code = 30.7 pg 25.9-32.8 785-6) MCHC (test code = 36.9 g/dL 31.6-35.1 H 786-4) RDW-SD (test code = 35.8 fL 39.0-49.9 L 24604-1) RDW-CV (test code = 11.9 % 12.0-15.5 L 788-0) PLT (test code = 229 See_Comment [Automated 777-3) message] The sy stem which generated this result transmitted reference range : 166 - 358 10*3/ ?L. The reference r vimal was not used to interpret this result as normal/abnormal . MPV (test code = 11.1 fL 9.5-12.9 12243-5) NRBC/100 WBC (test 0.0 See_Comment [Automat ed code = 1159484105) message] The system which generated this result transmitted reference range : 0.0 - 10.0 /100 WBCs. The refer ence range was not u sed to interpret th is result as normal/abnormal . NRBC x10^3 (test code See_Comment [Auto mated = 1573718239) message] The s ystem which generated this result transmitted reference range : 10*3/?L. The reference range was not used to interpret this result as normal/abnormal . GRAN MAT (NEUT) % 68.8 % (test code = 770-8) IMM GRAN % (test code 0.30 % = 5240194052) LYMPH % (test code = 24.5 % 736-9) MONO % (test code = 4.9 % 5905-5) EOS % (test code = 0.8 % 713-8) BASO % (test code = 0.7 % 706-2) GRAN MAT x10^3(ANC) 4.18 10*3/uL 1.88-7.09 (test code = 9145971096) IMM GRAN x10^3 (test 0.00-0.06 code = 8425381533) LYMPH x10^3 (test code 1.49 10*3/uL 1.32-3.29 = 731-0) MONO x10^3 (test code 0.30 10*3/uL 0.33-0.92 L = 742-7) EOS x10^3 (test code = 0.05 10*3/uL 0.03-0.39 711-2) BASO x10^3 (test code 0.04 10*3/uL 0.01-0.07 = 704-7) Lab Interpretation Abnormal (test code = 48695-9) [facility]/[id number] 22:14:00 Test Item Value Reference Range Interpretation Comments TESTOS (test 29 ng/dL 9-55 REFERENCE INTER ROXANNE: code = 2986-8) Testosterone by Senior Product Analyst FemalesPremenop ausal ?9-55 ng/dLPostmenopa usal 5-32 ng/dL INTERPRET MARYANA INFORMATION: Te stosterone by Senior Product Analyst Free or bioavailable te stosterone measurements ma y provide supportive info rmation. For individuals on testosterone-arita ppressing hormone therapi es (e.g., antiandrogens o r estrogens), refer to cisgen millie female reference inter vals. For a complete set of all established ref erence intervals, refe r to ltd.[employer] /Tests/Pub/008 1058. This test was developed and its perform ance characteristics determined by [employer]. It has not been cleared or approved by the [place] Food and Drug Administration. This test was performed in a CLIA certified laboratory and is intended for clinical purposes.Perfor med By: [employer] [place] [address] [id number] Director: Inocente cain MD, PhD [facility], FEMALE/[id number] 22:14:00 Test Item Value Reference Range Interpretation Comments TESTOS (test 29 ng/dL 9-55 REFERENCE INTER ROXANNE: code = 2986-8) Testosterone by Senior Product Analyst FemalesPremenop ausal ?9-55 ng/dLPostmenopa usal 5-32 ng/dL INTERPRET MARYANA INFORMATION: Te stosterone by Senior Product Analyst Free or bioavailable te stosterone measurements ma y provide supportive info rmation. For individuals on testosterone-arita ppressing hormone therapi es (e.g., antiandrogens o r estrogens), refer to cisgen millie female reference inter vals. For a complete set of all established ref erence intervals, refe r to ltd.[employer] /Tests/Pub/008 1058. This test was developed and its perform ance characteristics determined by [employer]. It has not been cleared or approved by the [place] Food and Drug Administration. This test was performed in a CLIA certified laboratory and is intended for clinical purposes.Perfor med By: [employer] [place] [address] [id number] Director: Inocente cain MD, PhD [facility], FEMALE/[id number] 22:14:00 Test Item Value Reference Range Interpretation Comments TESTOS (test 29 ng/dL 9-55 REFERENCE INTER ROXANNE: code = 2986-8) Testosterone by Senior Product Analyst FemalesPremenop ausal ?9-55 ng/dLPostmenopa usal 5-32 ng/dL INTERPRET MARYANA INFORMATION: Te stosterone by Senior Product Analyst Free or bioavailable te stosterone measurements ma y provide supportive info rmation. For individuals on testosterone-arita ppressing hormone therapi es (e.g., antiandrogens o r estrogens), refer to cisgen millie female reference inter vals. For a complete set of all established ref erence intervals, refe r to ltd.[employer] /Tests/Pub/008 1058. This test was developed and its perform ance characteristics determined by [employer]. It has not been cleared or approved by the [place] Food and Drug Administration. This test was performed in a CLIA certified laboratory and is intended for clinical purposes.Perfor med By: [address] [id number] Director: Inocente cain MD, PhD [facility] Center[facility]IT[facility]IN B1 (THIAMINE), WHOLE [id number] 15:20:23 Test Item Value Reference Range Interpretation Comments Vitamin B1, Whole 124 nmol/L 70-180 INTERPRETI VE INFORMATION: Blood (test code = Vitamin B 1, Whole Blood 23715-2) This assay jackeline ures the concentration o f thiamine diphosphate (TD P), the primary active form of vitamin B1. Kishore roximately 90 percent of v itamin B1 present in whol e blood is TDP. Thiamine a nd thiamine monoph osphate, which comprise the remaining 10 pe rcent, are not measured. T his test was developed a nd its performance characteristics determined by [facility]. I t has not been cleared or approved by the [place] Food and Drug Administration. This test was performed i n a CLIA certified labor atory and is intended for clinical purposes.Perfor med By: [address] [id number] aboratory Director: Juanjose Phillips MD, PhD [facility] (THIAMINE), WHOLE [id number] 15:20:23 Test Item Value Reference Range Interpretation Comments Vitamin B1, Whole 124 nmol/L 70-180 INTERPRETI VE INFORMATION: Blood (test code = Vitamin B 1, Whole Blood 07310-8) This assay jackeline ures the concentration o f thiamine diphosphate (TD P), the primary active form of vitamin B1. Kishore roximately 90 percent of v itamin B1 present in whol e blood is TDP. Thiamine a nd thiamine monoph osphate, which comprise the remaining 10 pe rcent, are not measured. T his test was developed a nd its performance characteristics determined by [facility]. I t has not been cleared or approved by the [place] Food and Drug Administration. This test was performed i n a CLIA certified labor atory and is intended for clinical purposes.Perfor med By: [address] [id number] aboratory Director: Juanjose Phillips MD, PhD [facility] (THIAMINE), WHOLE [id number] 15:20:23 Test Item Value Reference Range Interpretation Comments Vitamin B1, Whole 124 nmol/L 70-180 INTERPRETI VE INFORMATION: Blood (test code = Vitamin B 1, Whole Blood 57588-7) This assay jackeline ures the concentration o f thiamine diphosphate (TD P), the primary active form of vitamin B1. Kishore roximately 90 percent of v itamin B1 present in whol e blood is TDP. Thiamine a nd thiamine monoph osphate, which comprise the remaining 10 pe rcent, are not measured. T his test was developed a nd its performance characteristics determined by [facility]. I t has not been cleared or approved by the [place] Food and Drug Administration. This test was performed i n a CLIA certified labor atory and is intended for clinical purposes.Perfor med By: [facility] [employer] [address] [id number] aboratory Director: Juanjose Phillips MD, PhD [facility] Center[facility]IT[facility] B6, [id number] 04:08:01 Test Item Value Reference Range Interpretation Comments VIT B6 (test 31.4 nmol/L 20.0-125.0 INTERPRETIVE IN FORMATION: code = 85614-5) Vitamin B6 ( Pyridoxal 5-Phosphate) Py ridoxal 5'-phosphate me asured in a specimen collec angel following an 8- hour or overnight fast accurately indicates vitam in B6 nutritional sta tus. Non-fasting spe cimen concentration r eflects recent vitamin intake. This test was d eveloped and its perform ance characteristics determined by [facility]. It has not been cl eared or approved by the [place] Food and Drug Admini stration. This test was p erformed in a CLIA certifie d laboratory and is intended for clinical purposes.Perfor med By: [employer] [address] [place], [place] [address]Dlwdcda ory Director: Juanjose Phillips MD, PhD [facility], [id number] 04:08:01 Test Item Value Reference Range Interpretation Comments VIT B6 (test 31.4 nmol/L 20.0-125.0 INTERPRETIVE IN FORMATION: code = 04883-9) Vitamin B6 ( Pyridoxal 5-Phosphate) Py ridoxal 5'-phosphate me asured in a specimen collec angel following an 8- hour or overnight fast accurately indicates vitam in B6 nutritional sta tus. Non-fasting spe cimen concentration r eflects recent vitamin intake. This test was d eveloped and its perform ance characteristics determined by [facility]. It has not been cl eared or approved by the [place] Food and Drug Admini stration. This test was p erformed in a CLIA certifie d laboratory and is intended for clinical purposes.Perfor med By: [facility] [employer] [address] [address]Cfkehxd or Director: Juanjose Phillips MD, PhD [facility], [id number] 04:08:01 Test Item Value Reference Range Interpretation Comments VIT B6 (test 31.4 nmol/L 20.0-125.0 INTERPRETIVE IN FORMATION: code = 78076-9) Vitamin B6 ( Pyridoxal 5-Phosphate) Py ridoxal 5'-phosphate me asured in a specimen collec angel following an 8- hour or overnight fast accurately indicates vitam in B6 nutritional sta tus. Non-fasting spe cimen concentration r eflects recent vitamin intake. This test was d eveloped and its perform ance characteristics determined by [facility]. It has not been cl eared or approved by the [place] Food and Drug Admini stration. This test was p erformed in a CLIA certifie d laboratory and is intended for clinical purposes.Perfor med By: [facility] [employer] [address] [place], [place] [address]Uonziko or Director: Juanjose Phillips MD, PhD [facility] D, [id number] 01:41:48 Test Item Value Reference Range Interpretation Comments VIT D 25OH (test code = 18 ng/mL 25-80 L 05972-0) LIA (test code = LIA) Deficiency: <20 ng/mLInsufficiency: 20-24 ng/mLOptimal: 25-80 ng/mL Lab Interpretation (test Abnormal code = 71044-7) [facility], [id number] 01:41:48 Test Item Value Reference Range Interpretation Comments VIT D 25OH (test code = 18 ng/mL 25-80 L 05159-6) LIA (test code = LIA) Deficiency: <20 ng/mLInsufficiency: 20-24 ng/mLOptimal: 25-80 ng/mL Lab Interpretation (test Abnormal code = 88716-9) [facility], [id number] 01:41:48 Test Item Value Reference Range Interpretation Comments VIT D 25OH (test code = 18 ng/mL 25-80 L 98502-6) LIA (test code = LIA) Deficiency: <20 ng/mLInsufficiency: 20-24 ng/mLOptimal: 25-80 ng/mL Lab Interpretation (test Abnormal code = 11724-5) [facility] B12, [id number] 21:49:56 Test Item Value Reference Range Interpretation Comments VIT B12 (test code = 400 pg/mL 240-930 6807132562) LIA (test code = LIA) Biotin has been reported to cause a positive bias, interpret results relative to patient's use of biotin. Lab Interpretation (test Normal code = 43183-0) [facility] B12, [id number] 21:49:56 Test Item Value Reference Range Interpretation Comments VIT B12 (test code = 400 pg/mL 240-930 6827465103) LIA (test code = LIA) Biotin has been reported to cause a positive bias, interpret results relative to patient's use of biotin. Lab Interpretation (test Normal code = 81068-2) [facility] B12, [id number] 21:49:56 Test Item Value Reference Range Interpretation Comments VIT B12 (test code = 400 pg/mL 240-930 6183537508) LIA (test code = LIA) Biotin has been reported to cause a positive bias, interpret results relative to patient's use of biotin. Lab Interpretation (test Normal code = 90205-4) [facility]LL[facility] [id number] 21:28:58 Test Item Value Reference Range Interpretation Comments FSH (test code = 3.63 mIU/mL 1097875963) LIA (test code = FSH Reference Ranges LIA) Follicular Phase: ? ? ? 3.8-8.8 mIU/mLMid-cycle Peak: ? 4.5-22.85 mIU/mLLuteal Phase: ? 1.7-5.1 mIU/mLPost-menopause female: ?16.7-113.6 mIU/mLAdult male: ? 1.2-19 mIU/mL [facility] CenterLUTEINIZING HORMONE [id number] 21:28:58 Test Item Value Reference Range Interpretation Comments LH (test code = 5.92 mIU/mL 2356363859) LIA (test code = LH Reference Ranges: LIA) Menstrating Female ? ? Follicular phase ? ? 2.1-10.9 mIU/mL ? ? Mid-cycle peak ? ? ? 19.1-103.0 mIU/mL ? ? Luteal phase ? 1.2-12.8 mIU/mL Post-menopausal female ? ?10.8-58.6 mIU/mL Adule Male ?1.2-8.6 mIU/mL [facility] [id number] 21:28:58 Test Item Value Reference Range Interpretation Comments FSH (test code = 3.63 mIU/mL 7629751539) LIA (test code = FSH Reference Ranges LIA) Follicular Phase: ? ? ? 3.8-8.8 mIU/mLMid-cycle Peak: ? 4.5-22.85 mIU/mLLuteal Phase: ? 1.7-5.1 mIU/mLPost-menopause female: ?16.7-113.6 mIU/mLAdult male: ? 1.2-19 mIU/mL [facility] BranchL[facility] [id number] 21:28:58 Test Item Value Reference Range Interpretation Comments LH (test code = 5.92 mIU/mL 2926781095) LIA (test code = LH Reference Ranges: LIA) Menstrating Female ? ? Follicular phase ? ? 2.1-10.9 mIU/mL ? ? Mid-cycle peak ? ? ? 19.1-103.0 mIU/mL ? ? Luteal phase ? 1.2-12.8 mIU/mL Post-menopausal female ? ?10.8-58.6 mIU/mL Adule Male ?1.2-8.6 mIU/mL [facility] [id number] 21:28:58 Test Item Value Reference Range Interpretation Comments LH (test code = 5.92 mIU/mL 2727915822) LIA (test code = LH Reference Ranges: LIA) Menstrating Female ? ? Follicular phase ? ? 2.1-10.9 mIU/mL ? ? Mid-cycle peak ? ? ? 19.1-103.0 mIU/mL ? ? Luteal phase ? 1.2-12.8 mIU/mL Post-menopausal female ? ?10.8-58.6 mIU/mL Adule Male ?1.2-8.6 mIU/mL [facility] [id number] 21:28:58 Test Item Value Reference Range Interpretation Comments FSH (test code = 3.63 mIU/mL 5483469909) LIA (test code = FSH Reference Ranges LIA) Follicular Phase: ? ? ? 3.8-8.8 mIU/mLMid-cycle Peak: ? 4.5-22.85 mIU/mLLuteal Phase: ? 1.7-5.1 mIU/mLPost-menopause female: ?16.7-113.6 mIU/mLAdult male: ? 1.2-19 mIU/mL [facility] CenterHCV [id number] 21:21:09 Test Item Value Reference Range Interpretation Comments HCV Ab (test code = 77522-7) Negative HCV Semi-Quantitative (test code = 0.01 00389-9) [facility] Center[facility] [id number] 21:21:09 Test Item Value Reference Range Interpretation Comments HCV Ab (test code = 30989-9) Negative HCV Semi-Quantitative (test code = 0.01 48110-2) [facility] Center[facility] [id number] 21:21:09 Test Item Value Reference Range Interpretation Comments HCV Ab (test code = 64624-3) Negative HCV Semi-Quantitative (test code = 0.01 02053-2) [facility] CenterCORTISOL [id number] 21:00:45 Test Item Value Reference Range Interpretation Comments JAKY AM (test code = 10.5 ug/dL 4.5-23.0 4996716450) LIA (test code = LIA) Biotin has been reported to cause a positive bias, interpret results relative to patient's use of biotin. Lab Interpretation (test Normal code = 79793-3) [facility] CenterCORTISOL [id number] 21:00:45 Test Item Value Reference Range Interpretation Comments JAKY AM (test code = 10.5 ug/dL 4.5-23.0 7741930347) LIA (test code = LIA) Biotin has been reported to cause a positive bias, interpret results relative to patient's use of biotin. Lab Interpretation (test Normal code = 06746-6) [facility] [id number] 21:00:45 Test Item Value Reference Range Interpretation Comments JAKY AM (test code = 10.5 ug/dL 4.5-23.0 5419835590) LIA (test code = LIA) Biotin has been reported to cause a positive bias, interpret results relative to patient's use of biotin. Lab Interpretation (test Normal code = 48171-4) [facility] [id number] 20:23:21 Test Item Value Reference Range Interpretation Comments FERRITIN (test code = 16.4 ng/mL 6.0-137.0 1256658615) LIA (test code = LIA) Biotin has been reported to cause a negative bias, interpret results relative to patient's use of biotin. Lab Interpretation (test Normal code = 68616-9) [facility] [id number] 20:23:21 Test Item Value Reference Range Interpretation Comments FERRITIN (test code = 16.4 ng/mL 6.0-137.0 4551915960) LIA (test code = LIA) Biotin has been reported to cause a negative bias, interpret results relative to patient's use of biotin. Lab Interpretation (test Normal code = 50548-9) [facility] [id number] 20:23:21 Test Item Value Reference Range Interpretation Comments FERRITIN (test code = 16.4 ng/mL 6.0-137.0 1757655827) LIA (test code = LIA) Biotin has been reported to cause a negative bias, interpret results relative to patient's use of biotin. Lab Interpretation (test Normal code = 10828-9) [facility] [id number] 19:56:57 Test Item Value Reference Range Interpretation Comments IRON (test code = 0155079216) 112 ug/dL 50-160 TIBC (test code = 4511399972) 461 ug/dL 250-410 H % FE SAT (test code = 2941207671) 24 % 20-50 Lab Interpretation (test code = Abnormal 65525-6) [facility] [id number] 19:56:57 Test Item Value Reference Range Interpretation Comments IRON (test code = 6743266139) 112 ug/dL 50-160 TIBC (test code = 5920372459) 461 ug/dL 250-410 H % FE SAT (test code = 5633511184) 24 % 20-50 Lab Interpretation (test code = Abnormal 62902-0) [facility] [id number] 19:56:57 Test Item Value Reference Range Interpretation Comments IRON (test code = 6644814125) 112 ug/dL 50-160 TIBC (test code = 0657261148) 461 ug/dL 250-410 H % FE SAT (test code = 4970957627) 24 % 20-50 Lab Interpretation (test code = Abnormal 81423-3) [facility]. METABOLIC PANEL (12937)2022-08-17 19:47:51 Test Item Value Reference Range Interpretation Comments NA (test code = 139 mmol/L 135-145 6310369399) K (test code = 4.0 mmol/L 3.5-5.0 5741133428) CL (test code = 103 mmol/L 98-108 0456665063) CO2 TOTAL (test code 23 mmol/L 23-31 = 8702520208) AGAP (test code = 13 2-16 9375445715) BUN (test code = 11 mg/dL 7-23 2126809081) GLUCOSE (test code = 85 mg/dL 70-110 3490623066) CREATININE (test code 0.54 mg/dL 0.50-1.04 = 1726242700) TOTAL BILI (test code 1.0 mg/dL 0.1-1.1 = 3072258787) CALCIUM (test code = 9.3 mg/dL 8.6-10.6 0447570419) T PROTEIN (test code 7.5 g/dL 6.3-8.2 = 6912423955) ALBUMIN (test code = 4.7 g/dL 3.5-5.0 0583538140) ALK PHOS (test code = 71 U/L 34-122 8208119972) ALTv (test code = 16 U/L 5-35 1742-6) AST(SGOT) (test code 19 U/L 13-40 = 5662694554) eGFR (test code = 139.9 mL/min/1.73m2 1547661087) LIA (test code = LIA) Association of [...] or urine or abnormalities in imaging tests). [facility] CenterIRON20[facility] 19:47:30 Test Item Value Reference Range Interpretation Comments IRON (test code = 5014298563) 111 ug/dL 50-160 Lab Interpretation (test code = Normal 42187-4) [facility]47[facility]30 Test Item Value Reference Range Interpretation Comments IRON (test code = 4723109780) 111 ug/dL 50-160 Lab Interpretation (test code = Normal 65494-8) [facility] 19:47:30 Test Item Value Reference Range Interpretation Comments IRON (test code = 2080509190) 111 ug/dL 50-160 Lab Interpretation (test code = Normal 35253-5) [facility] WITH [id number] 19:05:16 Test Item Value Reference Range Interpretation Comments WBC (test code = 6.01 See_Comment [Automated 4990-2) message] The sy stem which generated this result transmitted reference range : 4.30 - 11.10 10*3/?L. The reference range was not used to interpret this result as normal/abnormal . RBC (test code = 4.80 See_Comment [Automated 969-8) message] The sy stem which generated this result transmitted reference range : 3.93 - 5.25 10*6/?L. The reference range was not used to interpret this result as normal/abnormal . HGB (test code = 14.6 g/dL 11.6-15.0 718-7) HCT (test code = 40.7 % 35.7-45.2 4544-3) MCV (test code = 84.8 fL 80.6-95.5 787-2) MCH (test code = 30.4 pg 25.9-32.8 785-6) MCHC (test code = 35.9 g/dL 31.6-35.1 H 786-4) RDW-SD (test code = 35.6 fL 39.0-49.9 L 08796-4) RDW-CV (test code = 11.7 % 12.0-15.5 L 788-0) PLT (test code = 226 See_Comment [Automated 847-3) message] The sy stem which generated this result transmitted reference range : 166 - 358 10*3/ ?L. The reference r vimal was not used to interpret this result as normal/abnormal . MPV (test code = 11.2 fL 9.5-12.9 60177-7) NRBC/100 WBC (test 0.0 See_Comment [Automat ed code = 1244783256) message] The system which generated this result transmitted reference range : 0.0 - 10.0 /100 WBCs. The refer ence range was not u sed to interpret th is result as normal/abnormal . NRBC x10^3 (test code See_Comment [Auto mated = 9934864650) message] The s ystem which generated this result transmitted reference range : 10*3/?L. The reference range was not used to interpret this result as normal/abnormal . GRAN MAT (NEUT) % 65.4 % (test code = 770-8) IMM GRAN % (test code 0.20 % = 7029332994) LYMPH % (test code = 26.6 % 736-9) MONO % (test code = 6.0 % 5905-5) EOS % (test code = 1.0 % 713-8) BASO % (test code = 0.8 % 706-2) GRAN MAT x10^3(ANC) 3.93 10*3/uL 1.88-7.09 (test code = 7085457314) IMM GRAN x10^3 (test 0.00-0.06 code = 3453222142) LYMPH x10^3 (test code 1.60 10*3/uL 1.32-3.29 = 731-0) MONO x10^3 (test code 0.36 10*3/uL 0.33-0.92 = 742-7) EOS x10^3 (test code = 0.06 10*3/uL 0.03-0.39 711-2) BASO x10^3 (test code 0.05 10*3/uL 0.01-0.07 = 704-7) Lab Interpretation Abnormal (test code = 30209-9) [facility] [id number] 20:56:00 Test Item Value Reference Range Interpretation Comments POCT PREG (test code = 1605) Negative On board controls acceptable with C Yes Line (test code = 3574) POCT PREG LOT # (test code = 3575) POCT PREG TEST DATE (test code = 3576) Lab Interpretation (test code = Normal 47600-6) [facility] MOLECULAR [id number] 23:56:46 Test Item Value Reference Range Interpretation Comments POCT Molecular FluA (test code = Negative Negative 88016-7) POCT Molecular FluB (test code = Negative Negative 93461-8) Lab Interpretation (test code = Normal 42487-0) [facility] MOLECULAR [id number] 23:56:46 Test Item Value Reference Range Interpretation Comments POCT Molecular FluA (test code = Negative Negative 86431-8) POCT Molecular FluB (test code = Negative Negative 65355-7) Lab Interpretation (test code = Normal 37948-9) [facility] MOLECULAR [id number] 23:56:46 Test Item Value Reference Range Interpretation Comments POCT Molecular FluA (test code = Negative Negative 51995-3) POCT Molecular FluB (test code = Negative Negative 71563-1) Lab Interpretation (test code = Normal 54127-2) [facility] MOLECULAR [id number] 23:50:02 Test Item Value Reference Range Interpretation Comments POCT Molecular Strep (test code = Negative Negative 62211-3) Lab Interpretation (test code = Normal 69112-9) [facility] MOLECULAR [id number] 23:50:02 Test Item Value Reference Range Interpretation Comments POCT Molecular Strep (test code = Negative Negative 07928-7) Lab Interpretation (test code = Normal 26274-5) [facility] MOLECULAR [id number] 23:50:02 Test Item Value Reference Range Interpretation Comments POCT Molecular Strep (test code = Negative Negative 59690-5) Lab Interpretation (test code = Normal 08642-8) [facility] WITH [id number] 11:33:07 Test Item Value Reference Range Interpretation Comments WBC (test code = See_Comment L [Automated 6690-2) message] The sy stem which generated this result transmitted reference range : 4.30 - 11.10 10*3/?L. The reference range was not used to interpret this result as normal/abnormal . RBC (test code = See_Comment L [Automated 789-8) message] The sy stem which generated this [...] (test code = 38.1 fL 39.0-49.9 L 90505-5) RDW-CV (test code = 12.4 % 12.0-15.5 788-0) PLT (test code = See_Comment [Automated 777-3) message] The sy stem which generated this result transmitted reference range : 166 - 358 10*3/ ?L. The reference r vimal was not used to interpret this result as normal/abnormal . MPV (test code = 10.6 fL 9.5-12.9 02729-3) NRBC/100 WBC (test See_Comment [Automat ed code = 2716454666) message] The system which generated this result transmitted reference range : 0.0 - 10.0 /100 WBCs. The refer ence range was not u sed to interpret th is result as normal/abnormal . NRBC x10^3 (test code See_Comment [Auto mated = 6181180985) message] The s ystem which generated this result transmitted reference range : 10*3/?L. The reference range was not used to interpret this result as normal/abnormal . GRAN MAT (NEUT) % 42.2 % (test code = 770-8) IMM GRAN % (test code 0.30 % = 2017301448) LYMPH % (test code = 40.3 % 736-9) MONO % (test code = 14.6 % 5905-5) EOS % (test code = 2.0 % 713-8) BASO % (test code = 0.6 % 706-2) GRAN MAT x10^3(ANC) 1.48 10*3/uL 1.88-7.09 L (test code = 7110748835) IMM GRAN x10^3 (test 0.00-0.06 code = 6504245506) LYMPH x10^3 (test code 1.41 10*3/uL 1.32-3.29 = 731-0) MONO x10^3 (test code 0.51 10*3/uL 0.33-0.92 = 742-7) EOS x10^3 (test code = 0.07 10*3/uL 0.03-0.39 711-2) BASO x10^3 (test code 0.01-0.07 = 704-7) REACT LYMPHS (test Rare code = 8391074994) Lab Interpretation Abnormal (test code = 77093-4) [facility] WITH [id number] 11:33:07 Test Item Value Reference Range Interpretation Comments WBC (test code = See_Comment L [Automated 5390-2) message] The sy stem which generated this result transmitted reference range : 4.30 - 11.10 10*3/?L. The reference range was not used to interpret this result as normal/abnormal . RBC (test code = See_Comment L [Automated 429-8) message] The sy stem which generated this [...] (test code = 38.1 fL 39.0-49.9 L 63591-6) RDW-CV (test code = 12.4 % 12.0-15.5 788-0) PLT (test code = See_Comment [Automated 777-3) message] The sy stem which generated this result transmitted reference range : 166 - 358 10*3/ ?L. The reference r vimal was not used to interpret this result as normal/abnormal . MPV (test code = 10.6 fL 9.5-12.9 65369-9) NRBC/100 WBC (test See_Comment [Automat ed code = 9788197228) message] The system which generated this result transmitted reference range : 0.0 - 10.0 /100 WBCs. The refer ence range was not u sed to interpret th is result as normal/abnormal . NRBC x10^3 (test code See_Comment [Auto mated = 8469107393) message] The s ystem which generated this result transmitted reference range : 10*3/?L. The reference range was not used to interpret this result as normal/abnormal . GRAN MAT (NEUT) % 42.2 % (test code = 770-8) IMM GRAN % (test code 0.30 % = 4024238605) LYMPH % (test code = 40.3 % 736-9) MONO % (test code = 14.6 % 5905-5) EOS % (test code = 2.0 % 713-8) BASO % (test code = 0.6 % 706-2) GRAN MAT x10^3(ANC) 1.48 10*3/uL 1.88-7.09 L (test code = 4278482060) IMM GRAN x10^3 (test 0.00-0.06 code = 0884126411) LYMPH x10^3 (test code 1.41 10*3/uL 1.32-3.29 = 731-0) MONO x10^3 (test code 0.51 10*3/uL 0.33-0.92 = 742-7) EOS x10^3 (test code = 0.07 10*3/uL 0.03-0.39 711-2) BASO x10^3 (test code 0.01-0.07 = 704-7) REACT LYMPHS (test Rare code = 8843203468) Lab Interpretation Abnormal (test code = 05077-4) [facility] WITH [id number] 11:33:07 Test Item Value Reference Range Interpretation Comments WBC (test code = See_Comment L [Automated 6690-2) message] The sy stem which generated this result transmitted reference range : 4.30 - 11.10 10*3/?L. The reference range was not used to interpret this result as normal/abnormal . RBC (test code = See_Comment L [Automated 789-8) message] The sy stem which generated this [...] (test code = 38.1 fL 39.0-49.9 L 55268-7) RDW-CV (test code = 12.4 % 12.0-15.5 788-0) PLT (test code = See_Comment [Automated 777-3) message] The sy stem which generated this result transmitted reference range : 166 - 358 10*3/ ?L. The reference r vimal was not used to interpret this result as normal/abnormal . MPV (test code = 10.6 fL 9.5-12.9 09609-9) NRBC/100 WBC (test See_Comment [Automat ed code = 2454125715) message] The system which generated this result transmitted reference range : 0.0 - 10.0 /100 WBCs. The refer ence range was not u sed to interpret th is result as normal/abnormal . NRBC x10^3 (test code See_Comment [Auto mated = 3432939984) message] The s ystem which generated this result transmitted reference range : 10*3/?L. The reference range was not used to interpret this result as normal/abnormal . GRAN MAT (NEUT) % 42.2 % (test code = 770-8) IMM GRAN % (test code 0.30 % = 4702895666) LYMPH % (test code = 40.3 % 736-9) MONO % (test code = 14.6 % 5905-5) EOS % (test code = 2.0 % 713-8) BASO % (test code = 0.6 % 706-2) GRAN MAT x10^3(ANC) 1.48 10*3/uL 1.88-7.09 L (test code = 0248683628) IMM GRAN x10^3 (test 0.00-0.06 code = 4606934017) LYMPH x10^3 (test code 1.41 10*3/uL 1.32-3.29 = 731-0) MONO x10^3 (test code 0.51 10*3/uL 0.33-0.92 = 742-7) EOS x10^3 (test code = 0.07 10*3/uL 0.03-0.39 711-2) BASO x10^3 (test code 0.01-0.07 = 704-7) REACT LYMPHS (test Rare code = 8784153136) Lab Interpretation Abnormal (test code = 97860-5) [facility] METABOLIC PANEL (NA, K, CL, CO2, GLUCOSE, BUN, CREATININE, CA)2022-03-21 11:20:02 Test Item Value Reference Range Interpretation Comments NA (test code = 139 mmol/L 135-145 3558442941) K (test code = 3.8 mmol/L 3.5-5.0 4388516235) CL (test code = 113 mmol/L 98-108 H 9353270986) CO2 TOTAL (test code = 18 mmol/L 23-31 L 0596320295) AGAP (test code = 2-16 9381138839) BUN (test code = 8 mg/dL 7-23 2556929228) GLUCOSE (test code = 92 mg/dL 70-110 2893720925) CREATININE (test code = 0.56 mg/dL 0.50-1.04 5118842332) CALCIUM (test code = 8.1 mg/dL 8.6-10.6 L 3127784083) eGFR (test code = mL/min/1.73m2 1910638529) LIA (test code = LIA) Association of [...] tests). Lab Interpretation Abnormal (test code = 90633-8) [facility] METABOLIC PANEL (NA, K, CL, CO2, GLUCOSE, BUN, CREATININE, CA)2022-03-21 11:20:02 Test Item Value Reference Range Interpretation Comments NA (test code = 139 mmol/L 135-145 6095184641) K (test code = 3.8 mmol/L 3.5-5.0 9009914780) CL (test code = 113 mmol/L 98-108 H 4752288840) CO2 TOTAL (test code = 18 mmol/L 23-31 L 8313871136) AGAP (test code = 2-16 3559384973) BUN (test code = 8 mg/dL 7-23 2563533021) GLUCOSE (test code = 92 mg/dL 70-110 1445925145) CREATININE (test code = 0.56 mg/dL 0.50-1.04 9859499408) CALCIUM (test code = 8.1 mg/dL 8.6-10.6 L 4876244976) eGFR (test code = mL/min/1.73m2 5576415149) LIA (test code = LIA) Association of [...] tests). Lab Interpretation Abnormal (test code = 99653-4) [facility] METABOLIC PANEL (NA, K, CL, CO2, GLUCOSE, BUN, CREATININE, CA)2022-03-21 11:20:02 Test Item Value Reference Range Interpretation Comments NA (test code = 139 mmol/L 135-145 3417713056) K (test code = 3.8 mmol/L 3.5-5.0 0370665631) CL (test code = 113 mmol/L 98-108 H 2053875833) CO2 TOTAL (test code = 18 mmol/L 23-31 L 9237652966) AGAP (test code = 2-16 2998205664) BUN (test code = 8 mg/dL 7-23 1976607568) GLUCOSE (test code = 92 mg/dL 70-110 8522663649) CREATININE (test code = 0.56 mg/dL 0.50-1.04 2294456611) CALCIUM (test code = 8.1 mg/dL 8.6-10.6 L 3451525850) eGFR (test code = mL/min/1.73m2 6164258638) LIA (test code = LIA) Association of [...] tests). Lab Interpretation Abnormal (test code = 85466-9) [facility] [id number] 04:23:39 Test Item Value Reference Range Interpretation Comments MAGNESIUM (test code = 6497139487) 2.2 mg/dL 1.7-2.4 Lab Interpretation (test code = Normal 59863-7) [facility] [id number] 04:23:39 Test Item Value Reference Range Interpretation Comments PHOSPHORUS (test code = 5732851501) 3.4 mg/dL 2.5-5.0 Lab Interpretation (test code = Normal 22127-5) [facility] [id number] 04:23:39 Test Item Value Reference Range Interpretation Comments PHOSPHORUS (test code = 5819879375) 3.4 mg/dL 2.5-5.0 Lab Interpretation (test code = Normal 72430-1) [facility] [id number] 04:23:39 Test Item Value Reference Range Interpretation Comments MAGNESIUM (test code = 3439898527) 2.2 mg/dL 1.7-2.4 Lab Interpretation (test code = Normal 79241-5) [facility] [id number] 04:23:39 Test Item Value Reference Range Interpretation Comments PHOSPHORUS (test code = 6124926585) 3.4 mg/dL 2.5-5.0 Lab Interpretation (test code = Normal 75250-0) [facility] [id number] 04:23:39 Test Item Value Reference Range Interpretation Comments MAGNESIUM (test code = 4770217884) 2.2 mg/dL 1.7-2.4 Lab Interpretation (test code = Normal 61770-2) [facility] WITH [id number] 23:51:10 Test Item Value Reference Range Interpretation Comments WBC (test code = See_Comment L [Automated 9890-2) message] The sy stem which generated this result transmitted reference range : 4.30 - 11.10 10*3/?L. The reference range was not used to interpret this result as normal/abnormal . RBC (test code = See_Comment [Automated 089-8) message] The sy stem which generated this [...] (test code = 38.6 fL 39.0-49.9 L 71356-9) RDW-CV (test code = 12.5 % 12.0-15.5 788-0) PLT (test code = See_Comment [Automated 777-3) message] The sy stem which generated this result transmitted reference range : 166 - 358 10*3/ ?L. The reference r vimal was not used to interpret this result as normal/abnormal . MPV (test code = 10.4 fL 9.5-12.9 09431-1) NRBC/100 WBC (test See_Comment [Automat ed code = 0884302337) message] The system which generated this result transmitted reference range : 0.0 - 10.0 /100 WBCs. The refer ence range was not u sed to interpret th is result as normal/abnormal . NRBC x10^3 (test code See_Comment [Auto mated = 0067794236) message] The s ystem which generated this result transmitted reference range : 10*3/?L. The reference range was not used to interpret this result as normal/abnormal . GRAN MAT (NEUT) % 49.0 % (test code = 770-8) IMM GRAN % (test code 0.30 % = 6132605273) LYMPH % (test code = 35.0 % 736-9) MONO % (test code = 13.3 % 5905-5) EOS % (test code = 1.6 % 713-8) BASO % (test code = 0.8 % 706-2) GRAN MAT x10^3(ANC) 1.85 10*3/uL 1.88-7.09 L (test code = 3080234118) IMM GRAN x10^3 (test 0.00-0.06 code = 4228277364) LYMPH x10^3 (test code 1.32 10*3/uL 1.32-3.29 = 731-0) MONO x10^3 (test code 0.50 10*3/uL 0.33-0.92 = 742-7) EOS x10^3 (test code = 0.06 10*3/uL 0.03-0.39 711-2) BASO x10^3 (test code 0.03 10*3/uL 0.01-0.07 = 704-7) Lab Interpretation Abnormal (test code = 96383-9) [facility])2022-03-20 23:49:30 Test Item Value Reference Range Interpretation Comments KEPPRA (test code = 34 ug/mL 12-46 3132557353) LIA (test code = LIA) Therapeutic range: 12-46 ?g/mL ? ?Toxic: Not well established.Test developed and characteristics determined by [facility]. Lab Interpretation Normal (test code = 57707-0) [facility] 23:49:30 Test Item Value Reference Range Interpretation Comments KEPPRA (test code = 34 ug/mL 12-46 7300384288) LIA (test code = LIA) Therapeutic range: 12-46 ?g/mL ? ?Toxic: Not well established.Test developed and characteristics determined by [facility]. Lab Interpretation Normal (test code = 88538-4) [facility]LEV[facility]2022-03-20 23:49:30 Test Item Value Reference Range Interpretation Comments KEPPRA (test code = 34 ug/mL 12-46 6293382416) LIA (test code = LIA) Therapeutic range: 12-46 ?g/mL ? ?Toxic: Not well established.Test developed and characteristics determined by [facility]. Lab Interpretation Normal (test code = 80386-9) [facility], [id number] 23:45:17 Test Item Value Reference Range Interpretation Comments PREG SERUM (test code Negative = 6439324848) LIA (test code = LIA) Less than 10 IU/L. ?If low titer or ectopic is suspected, resubmit specimen in 48-72 hours. [facility], [id number] 23:45:17 Test Item Value Reference Range Interpretation Comments PREG SERUM (test code Negative = 6555878408) LIA (test code = LIA) Less than 10 IU/L. ?If low titer or ectopic is suspected, resubmit specimen in 48-72 hours. [facility], [id number] 23:45:17 Test Item Value Reference Range Interpretation Comments PREG SERUM (test code Negative = 8857780750) LIA (test code = LIA) Less than 10 IU/L. ?If low titer or ectopic is suspected, resubmit specimen in 48-72 hours. [facility]. METABOLIC PANEL ([id number])2022-03-20 23:45:07 Test Item Value Reference Range Interpretation Comments NA (test code = 140 mmol/L 135-145 7793110955) K (test code = 3.6 mmol/L 3.5-5.0 8257329582) CL (test code = 108 mmol/L 98-108 4747885112) CO2 TOTAL (test code 24 mmol/L 23-31 = 0589543635) AGAP (test code = 2-16 1439816110) BUN (test code = 10 mg/dL 7-23 7151937445) GLUCOSE (test code = 82 mg/dL 70-110 5100295865) CREATININE (test code 0.62 mg/dL 0.50-1.04 = 1652419940) TOTAL BILI (test code 1.1 mg/dL 0.1-1.1 = 0580075053) CALCIUM (test code = 8.8 mg/dL 8.6-10.6 9990816938) T PROTEIN (test code 6.9 g/dL 6.3-8.2 = 6018977574) ALBUMIN (test code = 4.4 g/dL 3.5-5.0 8787052916) ALK PHOS (test code = 78 U/L 34-122 6547392799) ALTv (test code = 19 U/L 5-35 1742-6) AST(SGOT) (test code 21 U/L 13-40 = 0712323659) eGFR (test code = mL/min/1.73m2 6317888482) LIA (test code = LIA) Association of [...] or urine or abnormalities in imaging tests). [facility]. METABOLIC PANEL ([id number])2022-03-20 23:45:07 Test Item Value Reference Range Interpretation Comments NA (test code = 140 mmol/L 135-145 5035312333) K (test code = 3.6 mmol/L 3.5-5.0 0054161227) CL (test code = 108 mmol/L 98-108 6970507542) CO2 TOTAL (test code 24 mmol/L 23-31 = 3366021775) AGAP (test code = 2-16 1275923850) BUN (test code = 10 mg/dL 7-23 8343884943) GLUCOSE (test code = 82 mg/dL 70-110 0166530345) CREATININE (test code 0.62 mg/dL 0.50-1.04 = 0482515404) TOTAL BILI (test code 1.1 mg/dL 0.1-1.1 = 5066570160) CALCIUM (test code = 8.8 mg/dL 8.6-10.6 6963000635) T PROTEIN (test code 6.9 g/dL 6.3-8.2 = 1005453687) ALBUMIN (test code = 4.4 g/dL 3.5-5.0 3659370601) ALK PHOS (test code = 78 U/L 34-122 0384533692) ALTv (test code = 19 U/L 5-35 1742-6) AST(SGOT) (test code 21 U/L 13-40 = 6840207421) eGFR (test code = mL/min/1.73m2 2068071485) LIA (test code = LIA) Association of [...] or urine or abnormalities in imaging tests). [facility]. METABOLIC PANEL ([id number])2022-03-20 23:45:07 Test Item Value Reference Range Interpretation Comments NA (test code = 140 mmol/L 135-145 3749566186) K (test code = 3.6 mmol/L 3.5-5.0 8463796331) CL (test code = 108 mmol/L 98-108 6639090535) CO2 TOTAL (test code 24 mmol/L 23-31 = 4879253451) AGAP (test code = 2-16 6103972992) BUN (test code = 10 mg/dL 7-23 6817174615) GLUCOSE (test code = 82 mg/dL 70-110 4231343695) CREATININE (test code 0.62 mg/dL 0.50-1.04 = 7585596561) TOTAL BILI (test code 1.1 mg/dL 0.1-1.1 = 1183158689) CALCIUM (test code = 8.8 mg/dL 8.6-10.6 5445115591) T PROTEIN (test code 6.9 g/dL 6.3-8.2 = 6530259140) ALBUMIN (test code = 4.4 g/dL 3.5-5.0 3274369242) ALK PHOS (test code = 78 U/L 34-122 1619267574) ALTv (test code = 19 U/L 5-35 1742-6) AST(SGOT) (test code 21 U/L 13-40 = 4723393915) eGFR (test code = mL/min/1.73m2 7114432816) LIA (test code = LIA) Association of [...] or urine or abnormalities in imaging tests). [facility] [id number] 23:11:00 Test Item Value Reference Range Interpretation Comments POCT PREG (test code = 1605) negative On board controls acceptable with present C Line (test code = 3574) POCT PREG LOT # (test code = 3575) [id number] POCT PREG TEST DATE (test code = 3576) Lab Interpretation (test code = Normal 31208-6) [facility], [id number] 22:55:05 Test Item Value Reference Range Interpretation Comments PREG SERUM (test code Negative = 6758845565) LIA (test code = LIA) Less than 10 IU/L. ?If low titer or ectopic is suspected, resubmit specimen in 48-72 hours. [facility] GLUCOSE (AUTOMATED)2022-01-30 21:48:29 Test Item Value Reference Range Interpretation Comments POCT GLU (test code = 2244016298) 96 mg/dL 70-110 Lab Interpretation (test code = Normal 18273-1) [facility]"
[2022-09-21] MEDS ORDERED: LORazepam 2 MG/ML VIAL ONE (18:34)
[2022-09-21] MEDS ORDERED: LEVETIRACETAM 500 MG/5 ML VIAL IV ONE ×2 (18:48→19:42)
[2022-09-21] MEDS ORDERED: ONDANSETRON 4 MG/2 ML VIAL ONE (18:49)
[2022-09-21] MEDS ORDERED: NA CHLORIDE 0.9% 0 ML ONE (18:49)
[2022-09-21] MEDS ORDERED: FOSPHENYTOIN PE 500 MG/10 ML VIAL ONE (18:50)
[2022-09-21] MEDS ORDERED: NA CHLORIDE 0.9% 1,000 ML ONE (18:50)
[2022-09-21] MEDS ORDERED: NA CHLORIDE 0.9% 100 ML ONE ×3 (18:51→19:43)
[2022-09-21] MEDS ORDERED: DIPHENHYDRAMINE 50 MG/ML VIAL ONE (19:36)
[2022-09-21] MEDS ORDERED: VALPROATE NA 500 MG/5 ML INJ IV ONE (19:36)
--- NOTE | 2022-09-21 19:37 | RAD REPORT ---
EXAM DESCRIPTION: RADChest Single View09/21/2022 7:23 pm CLINICAL HISTORY: COUGH COMPARISON: Chest Pa And Lat (2 Views) dated 04/26/2022; Chest Single View dated 08/30/2020 TECHNIQUE: Portable AP view of the chest. FINDINGS: The lungs are clear. Reactive airway changes. No pneumothorax or effusion. The cardiomedia stinal contours are unremarkable. IMPRESSION: Reactive airway changes or viral infection without evidence of focal pneumonia.
[2022-09-21 20:18] LABS: Absolute Lymphocytes (CBC) 2.3 K/uL (0.7-4.9); Hematocrit 35.9 % (36.0-45.0); Lymphocytes % 34.6 % (15.3-44.8); MCV 86.6 fL (80-100); MPV 8.9 fL (7.6-11.3); RBC Red Blood Cell Count 4.14 M/uL (3.86-4.86)
[2022-09-21 20:19] LABS: Protime INR 1.05
[2022-09-21 20:43] LABS: Albumin 3.7 g/dL (3.4-5.0); Bilirubin Direct 0.1 mg/dL (0-0.2); Bilirubin Indirect, Calculated 0.2 mg/dL (0.2-0.8); Bilirubin Total 0.3 mg/dL (0.2-1.0); Magnesium 1.9 mg/dL (1.6-2.4); Potassium 3.5 mEq/L (3.5-5.1); Protein, Total 6.6 g/dL (6.4-8.2); Troponin High Sensitivity 3.1 pg/mL (<58.9)
--- NOTE | 2022-09-21 20:58 | RAD REPORT ---
EXAM DESCRIPTION: CT - Head Brain Wo Cont - 09/21/2022 8:25 pm CLINICAL HISTORY: SEIZURE COMPARISON: Head Brain Wo Cont dated 03/31/2022; Head Brain Wo Cont dated 01/21/2022 TECHNIQUE: Noncontrast head CT images ad were obtained without IV contrast. Multiplanar reformats we re generated and reviewed. All CT scans are performed using dose optimization technique as appropriate and may include automated exposure control or mA/KV adjustment according to patient size. FINDINGS: No intracranial hemorrhage, mass, or edema. Midline structures are unremarkable. Normal ventricular caliber for age. Mayen-white matter differentiation is preserved, without evidence of acute infarct. Stable sequelae of left suboccipital craniotomy. Stable left posterior fossa extra-axial fluid collec tion. No other abnormal extra-axial fluid collections. Mastoid air cells and visualized portions of the paranasal sinuses are clear. No acute bony findings. IMPRESSION: No evidence of an acute intracranial process. Stable chronic findings as above.
--- NOTE | 2022-09-21 21:05 | ER ---
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 Coronavirus screen: At this time, the client does not indicate any symptoms associated with coronavirus-19. Ebola Screen: Patient negative for fever greater than or equal to 101.5 degrees Fahrenheit, and additional compatible Ebola Virus Disease symptoms Patient denies exposure to infectious person. Patient denies travel to an Ebola-affected area in the 21 days before illness onset. No symptoms or risks identified at this time. Initial Sepsis Screen: Does the patient meet any 2 criteria? No. Patient's initial sepsis screen is negative. Does the patient have a suspected source of infection? No. Patient's initial sepsis screen is negative. Risk Assessment: Do you want to hurt yourself or someone else?. Onset of symptoms was September 21, 2022. 18:19 Method Of Arrival: Carried iw 18:19 Acuity: LUBNA 2 iw Triage Assessment: 19:00 General: Appears in no apparent distress. comfortable, Behavior is calm, cooperative, vc1 appropriate for age. Pain: Denies pain. EENT: No deficits noted. No signs and/or symptoms were reported regarding the EENT system. Neuro: Level of Consciousness is awake, obeys commands, lethargic, Oriented to person, place, time, situation, Appropriate for age. Cardiovascular: No deficits noted. Respiratory: Airway is patent Respiratory effort is even, unlabored, Respiratory pattern is regular, symmetrical. GI: No deficits noted. No signs and/or symptoms were reported involving the gastrointestinal system. : No deficits noted. No signs and/or symptoms were reported regarding the genitourinary system. Derm: No deficits noted. No signs and/or symptoms reported regarding the dermatologic system. Musculoskeletal: No deficits noted. No signs and/or symptoms reported regarding the musculoskeletal system. Historical: - Allergies: 21:12 Fosphenytoin; vc1 - PMHx: 18:20 Anxiety; Asthma; BRAIN TUMOR; Breast tumors; iw - PSHx: 18:20 brain surgery; Lumpectomy of breast; RIGHTCLAVICLE; Tonsillectomy; iw - Immunization history:: Adult Immunizations Adult Immunizations up to date. - Social history:: Smoking status: Patient denies any tobacco usage or history of. - Family history:: not pertinent. Screenin:16 [facility] ED Fall Risk Assessment (Adult) History of falling in the last 3 months, sg5 including since admission Yes- physiologic fall (2 pts). Abuse screen: Denies threats or abuse. Nutritional screening: No deficits noted. Tuberculosis screening: No symptoms or risk factors identified. Assessment: 19:15 Reassessment: Assumed care from Dominga Cheng RN. vc1 19:16 General: Appears comfortable, Behavior is drowsy, quiet. Pain: Denies pain. Neuro: sg5 Level of Consciousness is awake, alert, obeys commands, Oriented to person, place, time, situation, Appropriate for age. Cardiovascular: Capillary refill < 3 seconds. Respiratory: Airway is patent Respiratory effort is even, unlabored. GI: No signs and/or symptoms were reported involving the gastrointestinal system. : No signs and/or symptoms were reported regarding the genitourinary system. EENT: No signs and/or symptoms were reported regarding the EENT system. Derm: No signs and/or symptoms reported regarding the dermatologic system. Musculoskeletal: No signs and/or symptoms reported regarding the musculoskeletal system. Vital Signs: 18:19 BP 135 / 84; Pulse 79; Resp 16; Pulse Ox 100% on R/A; iw 19:00 BP 107 / 59; Pulse 61; Resp 21; Pulse Ox 100% ; vc1 19:19 BP 106 / 59; Pulse 70; Resp 16; Pulse Ox 98% on R/A; sg5 20:00 BP 122 / 82; Pulse 68; Resp 19; Pulse Ox 100% ; vc1 21:05 BP 101 / 48; Pulse 68; Resp 16; Pulse Ox 100% ; vc1 Sushma Coma Score: 21:02 Eye Response: spontaneous(4). Motor Response: obeys commands(6). Verbal Response: vc1 oriented(5). Total: 15. ED Course: 18:17 Patient arrived in ED. sg5 18:18 Van Tobin MD is Attending Physician. karishma 18:20 Triage completed. iw 18:20 Arm band placed on. iw 18:37 Dominga Cheng, RN is Primary Nurse. sg5 19:16 Patient has correct armband on for positive identification. Bed in low position. Call sg5 light in reach. Side rails up X2. Adult w/ patient. Valuables Given to family. Seizure precautions initiated. 19:16 Inserted saline lock: 20 gauge in left hand, using aseptic technique. sg5 19:25 XRAY Chest (1 view) In Process Unspecified. EDMS 20:09 Troponin HS Sent. rv1 20:10 PT-INR Sent. rv1 20:10 NT PRO-BNP Sent. rv1 20:10 Magnesium Sent. rv1 20:10 LFT's Sent. rv1 20:10 CBC with Diff Sent. rv1 20:10 Basic Metabolic Panel Sent. rv1 20:26 CT Head Brain wo Cont In Process Unspecified. EDMS 20:49 Attending Physician role handed off by Van Tobin MD sp3 20:49 Momo Robb MD is Attending Physician. sp3 21:04 Stef Puga MD is Referral Physician. sp3 21:12 No provider procedures requiring assistance completed. IV discontinued, intact, vc1 bleeding controlled, No redness/swelling at site. Pressure dressing applied. Administered Medications: 19:35 Discontinued: Fosphenytoin IVPB 1 grams IVPB once; (mix in 50 to 100mL NS) karishma 18:30 Drug: Ativan IVP 1 mg Route: IVP; Site: left wrist; nj1 19:00 Follow up: Response: No adverse reaction; Marked relief of symptoms vc1 18:38 Not Given (Duplicate Order): Ativan IVP 1 mg IVP once sg5 18:38 Not Given (Duplicate Order): Keppra IV 1000 mg IV at per protocol once sg5 19:00 Drug: NS 0.9% IV 1000 ml Route: IV; Rate: 1 bolus; Site: left hand; sg5 19:00 Drug: Ondansetron IVP 4 mg Route: IVP; Site: left hand; sg5 19:30 Follow up: Response: No adverse reaction; Marked relief of symptoms; Nausea is decreasedvc1 19:00 Drug: Keppra IV 1000 mg Route: IV; Rate: per protocol; Site: left hand; sg5 19:24 Follow up: IV Status: Completed infusion sg5 19:24 Drug: Fosphenytoin IVPB 1 grams Route: IVPB; Site: left hand; sg5 19:39 Follow up: Response: Adverse reaction, Physician notified vc1 19:39 Drug: diphenhydrAMINE IVP 25 mg Route: IVP; Site: right hand; vc1 20:00 Follow up: Response: No adverse reaction; Marked relief of symptoms vc1 19:46 Not Given (Physician Discretion): Depacon IV 500 mg 5 ml IV at calculated rate once vc1 19:46 Drug: Keppra IV 1000 mg Route: IV; Rate: per protocol; Site: right hand; vc1 Medication: 19:16 VIS not applicable for this client. sg5 Outcome: 21:04 Discharge ordered by . sp3 21:12 Discharged to home ambulatory, with family. vc1 21:12 Condition: good 21:12 Discharge instructions given to patient, Instructed on discharge instructions, follow up and referral plans. medication usage, Demonstrated understanding of instructions, follow-up care, medications, Prescriptions given X 1. 21:13 Patient left the ED. vc1 Signatures: Dispatcher [employer] EDIL Van Tobin MD MD cha Williams, Irene RN RN iw Momo Robb MD MD sp3 Jocelin Dawkins RN RN vc1 Afshan Valderrama rv1 Dominga Cheng RN RN sg5 Nai Lundberg RN RN nj1 Corrections: (The following items were deleted from the chart) 21:12 18:20 Allergies: No Known Allergies; vc1
--- NOTE | 2022-09-21 21:05 | EDPHYS ---
Physician Documentation [facility] Name: Nona Lee Age: 22 yrs Sex: Female : 2000 Arrival Date: 09/21/2022 Time: 18:14 Bed 19 Private MD: ED Physician Momo Robb HPI: 09/21 19:49 This 22 yrs old Female presents to ER via Carried with complaints of Seizure. karishma 19:49 The patient presents after having a single isolated seizure, that lasted 20 minute(s). karishma Character of seizure(s): Loss of consciousness: the patient experienced loss of consciousness, prolonged. Seizure onset: just prior to arrival. Context: the seizure(s) was witnessed, by family. Seizure Hx: the patient has no previous seizure history. Associated injury: The patient did not suffer any apparent associated injury. Current symptoms: decreased level of consciousness, is sleeping but easy to arouse. The patient has experienced similar episodes in the past, multiple times. Historical: - Allergies: 21:12 Fosphenytoin; vc1 - PMHx: 18:20 Anxiety; Asthma; BRAIN TUMOR; Breast tumors; iw - PSHx: 18:20 brain surgery; Lumpectomy of breast; RIGHTCLAVICLE; Tonsillectomy; iw - Immunization history:: Adult Immunizations Adult Immunizations up to date. - Social history:: Smoking status: Patient denies any tobacco usage or history of. - Family history:: not pertinent. ROS: 19:49 Constitutional: Negative for fever, chills, and weight loss, Eyes: Negative for injury, karishma pain, redness, and discharge, ENT: Negative for injury, pain, and discharge, Neck: Negative for injury, pain, and swelling, Cardiovascular: Negative for chest pain, palpitations, and edema, Respiratory: Negative for shortness of breath, cough, wheezing, and pleuritic chest pain, Abdomen/GI: Negative for abdominal pain, nausea, vomiting, diarrhea, and constipation, Back: Negative for injury and pain, : Negative for injury, bleeding, discharge, and swelling, MS/Extremity: Negative for injury and deformity, Skin: Negative for injury, rash, and discoloration, Neuro: Negative for headache, weakness, numbness, tingling, and seizure, Psych: Negative for depression, anxiety, suicide ideation, homicidal ideation, and hallucinations, Allergy/Immunology: Negative for hives, rash, and allergies, Endocrine: Negative for neck swelling, polydipsia, polyuria, polyphagia, and marked weight changes, Hematologic/Lymphatic: Negative for swollen nodes, abnormal bleeding, and unusual bruising. Exam: 19:49 Constitutional: This is a well developed, well nourished patient who is awake, alert, karishma and in no acute distress. Head/Face: Normocephalic, atraumatic. Eyes: Pupils equal round and reactive to light, extra-ocular motions intact. Lids and lashes normal. Conjunctiva and sclera are non-icteric and not injected. Cornea within normal limits. Periorbital areas with no swelling, redness, or edema. ENT: Nares patent. No nasal discharge, no septal abnormalities noted. Tympanic membranes are normal and external auditory canals are clear. Oropharynx with no redness, swelling, or masses, exudates, or evidence of obstruction, uvula midline. Mucous membranes moist. Neck: Trachea midline, no thyromegaly or masses palpated, and no cervical lymphadenopathy. Supple, full range of motion without nuchal rigidity, or vertebral point tenderness. No Meningismus. Chest/axilla: Normal chest wall appearance and motion. Nontender with no deformity. No lesions are appreciated. Cardiovascular: Regular rate and rhythm with a normal S1 and S2. No gallops, murmurs, or rubs. Normal PMI, no JVD. No pulse deficits. Respiratory: Lungs have equal breath sounds bilaterally, clear to auscultation and percussion. No rales, rhonchi or wheezes noted. No increased work of breathing, no retractions or nasal flaring. Abdomen/GI: Soft, non-tender, with normal bowel sounds. No distension or tympany. No guarding or rebound. No evidence of tenderness throughout. Back: No spinal tenderness. No costovertebral tenderness. Full range of motion. Skin: Warm, dry with normal turgor. Normal color with no rashes, no lesions, and no evidence of cellulitis. MS/ Extremity: Pulses equal, no cyanosis. Neurovascular intact. Full, normal range of motion. Neuro: Awake and alert, GCS 15, oriented to person, place, time, and situation. Cranial nerves II-XII grossly intact. Motor strength 5/5 in all extremities. Sensory grossly intact. Cerebellar exam normal. Normal gait. Psych: Awake, alert, with orientation to person, place and time. Behavior, mood, and affect are within normal limits. Vital Signs: 18:19 BP 135 / 84; Pulse 79; Resp 16; Pulse Ox 100% on R/A; iw 19:00 BP 107 / 59; Pulse 61; Resp 21; Pulse Ox 100% ; vc1 19:19 BP 106 / 59; Pulse 70; Resp 16; Pulse Ox 98% on R/A; sg5 20:00 BP 122 / 82; Pulse 68; Resp 19; Pulse Ox 100% ; vc1 21:05 BP 101 / 48; Pulse 68; Resp 16; Pulse Ox 100% ; vc1 Sushma Coma Score: 21:02 Eye Response: spontaneous(4). Motor Response: obeys commands(6). Verbal Response: vc1 oriented(5). Total: 15. MDM: 18:18 Patient medically screened. karishma 19:54 Differential diagnosis: cerebral vascular accident, drug overdose, seizure. Data [facility] reviewed: vital signs, nurses notes, EMS record, lab test result(s), EKG, radiologic studies, CT scan, plain films. Consideration of Admission/Observation Escalation of care including admission/observation considered. 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 I considered the following discharge prescriptions or medication management in the emergency department Medications were administered in the Emergency Department. See MAR. Test considered but Not performed: MRI: no mri head. Care significantly affected by the following chronic conditions: anxiety , asthma brain tumors. 09/21 18:19 Order name: Basic Metabolic Panel; Complete Time: 20:49 [facility] 09/21 18:19 Order name: CBC with Diff; Complete Time: 20:29 [facility] 09/21 18:19 Order name: LFT's; Complete Time: 20:49 [facility] 09/21 18:19 Order name: Magnesium; Complete Time: 20:49 [facility] 09/21 18:19 Order name: NT PRO-BNP; Complete Time: 20:49 [facility] 09/21 18:19 Order name: PT-INR; Complete Time: 20:29 [facility] 09/21 18:19 Order name: Troponin HS; Complete Time: 20:49 [facility] 09/21 19:48 Order name: Dilantin; Complete Time: 20:49 [facility] 09/21 18:19 Order name: XRAY Chest (1 view); Complete Time: 19:47 [facility] 09/21 19:01 Order name: CT Head Brain wo Cont; Complete Time: 21:03 [facility] 09/21 18:19 Order name: EKG; Complete Time: 18:20 [facility] 09/21 18:19 Order name: Cardiac monitoring; Complete Time: 20:03 [facility] 09/21 18:19 Order name: EKG - Nurse/Tech; Complete Time: 21:06 [facility] 09/21 18:19 Order name: IV Saline Lock; Complete Time: 20:03 [facility] 09/21 18:19 Order name: Labs collected and sent; Complete Time: 20:12 [facility] 09/21 18:19 Order name: O2 Per Protocol; Complete Time: 20:03 [facility] 09/21 18:19 Order name: O2 Sat Monitoring; Complete Time: 20:03 [facility] 09/21 18:19 Order name: Seizure Precautions; Complete Time: 18:33 [facility] Administered Medications: 19:35 Discontinued: Fosphenytoin IVPB 1 grams IVPB once; (mix in 50 to 100mL NS) [facility] 18:30 Drug: Ativan IVP 1 mg Route: IVP; Site: left wrist; nj1 19:00 Follow up: Response: No adverse reaction; Marked relief of symptoms vc1 18:38 Not Given (Duplicate Order): Ativan IVP 1 mg IVP once sg5 18:38 Not Given (Duplicate Order): Keppra IV 1000 mg IV at per protocol once sg5 19:00 Drug: NS 0.9% IV 1000 ml Route: IV; Rate: 1 bolus; Site: left hand; sg5 19:00 Drug: Ondansetron IVP 4 mg Route: IVP; Site: left hand; sg5 19:30 Follow up: Response: No adverse reaction; Marked relief of symptoms; Nausea is decreasedvc1 19:00 Drug: Keppra IV 1000 mg Route: IV; Rate: per protocol; Site: left hand; sg5 19:24 Follow up: IV Status: Completed infusion sg5 19:24 Drug: Fosphenytoin IVPB 1 grams Route: IVPB; Site: left hand; sg5 19:39 Follow up: Response: Adverse reaction, Physician notified vc1 19:39 Drug: diphenhydrAMINE IVP 25 mg Route: IVP; Site: right hand; vc1 20:00 Follow up: Response: No adverse reaction; Marked relief of symptoms vc1 19:46 Not Given (Physician Discretion): Depacon IV 500 mg 5 ml IV at calculated rate once vc1 19:46 Drug: Keppra IV 1000 mg Route: IV; Rate: per protocol; Site: right hand; vc1 Disposition Summary: 09/21/22 21:04 Discharge Ordered Location: Home sp3 Problem: new sp3 Symptoms: have improved sp3 Condition: Stable sp3 Diagnosis - Epileptic seizures related to external causes, not intractable sp3 Followup: karishma - With: Private Physician - When: 2 - 3 days - Reason: Recheck today's complaints, Continuance of care, Re-evaluation by your physician Followup: karishma - With: - When: 2 - 3 days - Reason: Recheck today's complaints, Continuance of care, Re-evaluation by your physician Discharge Instructions: - Discharge Summary Sheet karishma - Seizure, Adult karishma - Seizure, Adult, [id number] Forms: - Medication Reconciliation Form sp3 - Thank You Letter sp3 - Antibiotic Education sp3 - Prescription Opioid Use sp3 Prescriptions: - Keppra 750 mg Oral Tablet - take 1 tablet by ORAL route every 12 hours; 60 tablet; Refills: 0, Product karishma Selection Permitted Signatures: Dispatcher [employer] Van Vela MD MD cha Williams, Irene RN Momo Nielson MD MD sp3 Jocelin Dawkins RN RN vc1 Dominga Cheng RN RN sg5 Nai Lundberg RN RN nj1 Corrections: (The following items were deleted from the chart) 21:12 18:20 Allergies: No Known Allergies; vc1
[2022-09-21 22:10] VITALS: O2SAT 100
[2022-09-21 22:12] VITALS: BP 101/48
--- NOTE | 2022-09-22 11:22 | EKG ---
Test Date: 2022-09-21 Test Time: 20:44:56 Project Engineer: RV MEASUREMENT RESULTS: Intervals: Rate: 81 VA: 138 QRSD: 76 QT: 362 QTc: 420 Kaycee: P: 66 VA: 138 QRS: 86 T: 21 INTERPRETIVE STATEMENTS: Sinus rhythm with marked sinus arrhythmia Otherwise normal ECG Compared to ECG 09/21/2022 20:44:17 T-wave abnormality no longer present Electronically Signed On 09-22-22 11:20:03 CDT by Andres Ge
--- NOTE | 2022-09-22 11:22 | EKG ---
Test Date: 2022-09-21 Test Time: 20:44:17 Toe Sewer: RV MEASUREMENT RESULTS: Intervals: Rate: 62 RI: 134 QRSD: 78 QT: 398 QTc: 403 Wilson: P: 61 RI: 134 QRS: 85 T: 20 INTERPRETIVE STATEMENTS: Normal sinus rhythm with sinus arrhythmia Nonspecific T wave abnormality Abnormal ECG Compared to ECG 08/06/2022 21:11:05 Possible ischemia no longer present T-wave abnormality still present Electronically Signed On 09-22-22 11:20:04 CDT by Andres Ge
== END 2022-09-21 21:13 | disposition home or self-care (01) ==
LOC: ER 18:14
DX: G40.509 Epileptic seizures related to external causes, not intractable, without status epilepticus (principal); Z88.8 Allergy status to other drugs, medicaments and biological substances
CPT/HCPCS: 85025; 80048; 36415; 83735; 85610; 80076; 80185; 84484; 83880; 70450; 71045; Q2009; J1953 ×2; J1200; J2405; J7030; 93005

== ENCOUNTER 2022-10-08 20:52 | Emergency (ER) | payer BC ==
--- OUTSIDE RECORDS SUMMARY | 2022-10-08 21:09 | XMS REPORT | Continuity of Care Document ---
:2000 Author Organization [facility] t Address [address] [facility] [address] [place] [id number] Care Team Providers Name Role Phone Axel Parra MD Primary Care Physician LESLEY LI Attending Clinician Unavailable AXEL PARRA Attending Clinician Unavailable KEITH GARCIA Attending Clinician Unavailable JEANNINE SHELL Attending Clinician Unavailable KAVITHA MAC Attending Clinician Unavailable TRISTEN PAUL Attending Clinician Unavailable Russ THORNTON, Jesenia De Leon Attending Clinician Unavailable MAGGI RITCHIE Attending Clinician Unavailable Unknown, Attending Attending Clinician Unavailable Maggi Gar Attending Clinician Thalia Anne Attending Clinician THALIA NICHOLE Attending Clinician Unavailable Axel Parra MD Attending Clinician Lesley Li MD Attending Clinician Doctor Unassigned, [place] Attending Clinician Unavailable BROOKS SEGURA Attending Clinician Unavailable 2, Adc Lab Attending Clinician Unavailable Key SMALLS Attending Clinician Unavailable Serina PAC, K Myra Attending Clinician Fatou ALVARADO, Anusha Attending Clinician Lab, Ang - Db Attending Clinician Unavailable ANA BOLES Attending Clinician Unavailable Ana Rodriguez Attending Clinician Gui ALVARADO, Tristen Attending Clinician Suleman ALVARADO, Jeannine S Attending Clinician Angélica THORNTON, Kathryn Carlin Attending Clinician Jey ALVARADO, Felicitas Gold Attending Clinician FELICITAS KHANNA Attending Clinician Unavailable CARMEN TALBERT [...] Clinician Unavailable Shine ALVARADO, Rosy Attending Clinician MOSNE CHAVEZ Attending Clinician Unavailable Monse Chavez DO Attending Clinician JUSTIN BARRETO Attending Clinician Unavailable Justin Barreto DO Attending Clinician BÁRBARA GILLIS Attending Clinician Unavailable Pcp-Lab Attending Clinician Unavailable Bárbara Gillis MD Attending Clinician Antonia ALVARADO, Perla Attending Clinician Kavitha Mac MD Attending Clinician Luis Eduardo Myers DO Attending Clinician Lilo Mendieta MD Attending Clinician LILO MENDIETA Attending Clinician Unavailable Kristy THORNTON, Carleen L Attending Clinician Unavailable Ranjit Robb MD Attending Clinician Only, Adc Test Attending Clinician Unavailable Brooks Sims MD, Neeraj Whitt Attending Clinician [phone] CECILIA VASQUEZ Attending Clinician Unavailable MILLY RIOS Attending Clinician Unavailable Milly Huerta Attending Clinician [phone] ALBERT RUIZ Attending Clinician Unavailable Key SMALLS [...] Date Expiration Date S ource [employer] [place] [id number] 2021 EMPLOYEE PLAN 00:00:00 [place] [id number] 2022 WOMEN 00:00:00 [employer] [place] [id number] 2021 00:00:00 Problems Condition Condition Condition Status [...] on on Superficia Superficia Disease Active U rossyers l bruising l bruising 5-09 it y of 00:00: [place] 00 [facility] Seizure Seizure Disease Active 2021-05 Univers 1-13 ity of 00:00: [place] [facility] Syncope Syncope Disease Active 2021-05 Univers and and 0-05 ity of collapse collapse 00:00: [place] [facility] Tremor Tremor Disease Active 2021-05 Univers 0-05 ity of 00:00: [place] [facility] Dizziness Dizziness Disease Active 2021-05 Uni [...] Unive rs 9-25 ity of 00:00: [place] [facility] Seizure-li Seizure-li Disease Active U [place] ke ke 4-11 ity of activity activity 00:00: [place] 00 [facility] 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 3-07 ity of 00:00: [place] [facility] Seizure Seizure Disease Active Univers disorder disorder 3-07 ity of 00:00: [place] 00 Medical Branch Numbness Numbness Disease Active Unive rs and and 6-17 ity of tingling tingling 00:00: [place] of both of both 00 Medical upper upper Branch extremitie extremitie s s 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 [place] Numbness Numbness Disease Active Unive rs 5-04 ity of 00:00: [place] [facility] 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 00:00: [place] 00 Medical Branch Allergies, Adverse Reactions, Alerts Allergy Allergy Status Severity Reaction(s) Onset Inactive Treating Comm ents Source Name Type Date Date Clinician DIVALPRO DRUG Active Other-Cmnt Univ ers EX INGREDI 10-07 ity of SODIUM 00:00: [place] 00 Medical Branch FOSPHENY DRUG Active Rash Univers TOIN INGREDI 10-07 ity of 00:00: [place] 00 Medical Branch Divalpro Propensi Active Other - See Joint U nivers ex ty to comments 10-07 swelling ity of Sodium adverse 00:00: [place] reaction 00 Medical s Branch Fospheny Propensi Active Rash Univer s toin ty to 10-07 ity of adverse 00:00: [place] reaction 00 Medical s Branch NO KNOWN Drug Active Univers ALLERGIE Class ity of S [facility] Family History Family Member Diagnosis Comments Start Date Stop Date Source Maternal Other - see University of grandfather comments [facility] Maternal Hypertension University o f grandmother [facility] Natural mother Heart [facility] Natural mother Hypertension Universi ty of [facility] Natural mother Other - see Universit y of comments [facility] Family member Cancer [facility] Family member Diabetes [facility] Social History Social Habit Start Date Stop Date Quantity Comments Source History of Passive smoker University of tobacco use [place] [facility] History SDAK University o f Alcohol Std [place] [facility] Drinks [facility] History SDOH University o f Alcohol Binge [place] [facility] History SDOH University o f Alcohol Comment [place] [facility] Alcohol intake 2022-10-07 2022-10-07 Lifetime University of 00:00:00 00:00:00 non-drinker [facility] (finding) Branch Exposure to 2022-09-03 2022-09-13 Not sure University of SARS-CoV-2 00:00:00 13:21:00 [facility] (event) Branch Tobacco use and 2022-04-18 2022-04-18 Smokeless tobacco Un iversity of exposure 00:00:00 00:00:00 non-user [place] [facility] [place] History SDOH 2021-09-10 2021-09-10 1 University o f Alcohol Frequency 00:00:00 00:00:00 [place] [facility] Education 2020-09-07 2020-09-07 12 University of 00:00:00 00:00:00 [facility] Sex Assigned At [birth year] Universit y of 00:00:00 00:00:00 [facility] Smoking Status Start Date Stop Date Source Never smoked tobacco [facility] [place] Tobacco smoking consumption [facility] Branch Medications Ordered Filled Start Stop Current Ordering Indication Dosage Frequency Signature Comments Components Source Medication Medication Date Date Medication? Clinician (SIG) Name Name escitalopra Yes [id number] 20mg Take 1 Univers m oxalate 6-03 tablet by ity o f 20 mg 00:00: mouth in [place] tablet 00 the Medical morning. Branch escitalopra Yes [id number] 20mg Take 1 Univers m oxalate 6-03 tablet by ity o f 20 mg 00:00: mouth in [place] tablet 00 the Medical morning. Branch LORazepam 2022- No [id number] 1mg 1 mg, Un ramses (ATIVAN) 09-30 Oral, ity of tablet 1 mg 20:00: 15:02 [place]CE[place] 1 [place] dose, On Medical Fri Branch 09/30/22 at 1500, Routine ergocalcife 3-0 Yes [id number] Take 1 Univers rol, 5-15 capsule by ity of vitamin d2, 00:00: mouth [place] 1,250 mcg 00 weekly. Medical (50,000 Branch unit) capsule ergocalcife 2023-0 Yes [id number] Take 1 Univers rol, 5-15 capsule by ity of vitamin d2, 00:00: mouth [place] 1,250 mcg 00 weekly. Medical (50,000 Branch unit) capsule ergocalcife 2023-0 Yes [id number] Take 1 Univers rol, 5-15 capsule by ity of vitamin d2, 00:00: mouth [place] 1,250 mcg 00 weekly. Medical (50,000 Branch unit) capsule ergocalcife 2023-0 Yes [id number] Take 1 Univers rol, 5-15 capsule by ity of vitamin d2, 00:00: mouth [place] 1,250 mcg 00 weekly. Medical (50,000 Branch unit) capsule ergocalcife 2023-0 Yes [id number] Take 1 Univers rol, 5-15 capsule by ity of vitamin d2, 00:00: mouth [place] 1,250 mcg 00 weekly. Medical (50,000 Branch unit) capsule ergocalcife 2023-0 Yes [id number] Take 1 Univers rol, 5-15 capsule by ity of vitamin d2, 00:00: mouth [place] 1,250 mcg 00 weekly. Medical (50,000 Branch unit) capsule ergocalcife 2022-0 Yes [id number] Take 1 Univers rol, 5-15 capsule by ity of vitamin d2, 00:00: mouth [place] 1,250 mcg 00 weekly. Medical (50,000 Branch unit) capsule norgestimat 2022-0 Yes [id number] 1{tbl} Take 1 Univers e-ethinyl 5-12 tablet by ity o f estradioL 00:00: [place] 0.25-35 00 the Medical mg-mcg per morning. Branc h tablet norgestimat 2022-0 Yes [id number] 1{tbl} Take 1 Univers e-ethinyl 5-12 tablet by ity o f estradioL 00:00: [place] 0.25-35 00 the Medical mg-mcg per morning. Branc h tablet norgestimat 2022-0 Yes [id number] 1{tbl} Take 1 Univers e-ethinyl 5-12 tablet by ity o f estradioL 00:00: [place] 0.25-35 00 the Medical mg-mcg per morning. Branc h tablet norgestimat 2022-0 Yes [id number] 1{tbl} Take 1 Univers e-ethinyl 5-12 tablet by ity o f estradioL 00:00: [place] 0.25-35 00 the Medical mg-mcg per morning. Branc h tablet norgestimat 2022-0 Yes [id number] 1{tbl} Take 1 Univers e-ethinyl 5-12 tablet by ity o f estradioL 00:00: [place] 0.25-35 00 the Medical mg-mcg per morning. Branc h tablet norgestimat 2022-0 Yes [id number] 1{tbl} Take 1 Univers e-ethinyl 5-12 tablet by ity o f estradioL 00:00: [place] 0.25-35 00 the Medical mg-mcg per morning. Branc h tablet norgestimat 2022-0 Yes [id number] 1{tbl} Take 1 Univers e-ethinyl 5-12 tablet by ity o f estradioL 00:00: [place] 0.25-35 00 the Medical mg-mcg per morning. Branc h tablet norgestimat 2023-0 Yes [id number] 1{tbl} Take 1 Univers e-ethinyl 5-12 tablet by ity o f estradioL 00:00: mouth in [facility] 0.25-35 00 the Medical mg-mcg per morning. Branc h tablet norgestimat 2023-0 Yes [id number] 1{tbl} Take 1 Univers e-ethinyl 5-12 tablet by ity o f estradioL 00:00: mouth in [facility] 0.25-35 00 the Medical mg-mcg per morning. Branc h tablet norgestimat 2023-0 Yes [id number] 1{tbl} Take 1 Univers e-ethinyl 5-12 tablet by ity o f estradioL 00:00: mouth in [facility] 0.25-35 00 the Medical mg-mcg per morning. Branc h tablet phenytoin 2023-0 Yes 100mg Take 100 Uni vers sodium 5-09 mg by ity of extended 13:29: mouth in [place] (DILANTIN 56 the Medical ORAL) morning. Branch phenytoin 2023-0 Yes 100mg Take 100 Uni vers sodium 5-09 mg by ity of extended 13:29: mouth in [place] (DILANTIN 56 the Medical ORAL) morning. Branch phenytoin 2023-0 Yes 100mg Take 100 Uni vers sodium 5-09 mg by ity of extended 13:29: mouth in [place] (DILANTIN 56 the Medical ORAL) morning. Branch phenytoin 2023-0 Yes 100mg Take 100 Uni vers sodium 5-09 mg by ity of extended 13:29: mouth in [place] (DILANTIN 56 the Medical ORAL) morning. Branch phenytoin 2023-0 Yes 100mg Take 100 Uni vers sodium 5-09 mg by ity of extended 13:29: mouth in [place] (DILANTIN 56 the Medical ORAL) morning. Branch phenytoin 2023-0 Yes 100mg Take 100 Uni vers sodium 5-09 mg by ity of extended 13:29: mouth in [place] (DILANTIN 56 the Medical ORAL) morning. Branch phenytoin 2023-0 Yes 100mg Take 100 Uni vers sodium 5-09 mg by ity of extended 13:29: mouth in [place] (DILANTIN 56 the Medical ORAL) morning. Branch phenytoin 2023-0 Yes 100mg Take 100 Uni vers sodium 5-09 mg by ity of extended 13:29: mouth in [place] (DILANTIN 56 the Medical ORAL) morning. Branch phenytoin 2023-0 Yes 100mg Take 100 Uni vers sodium 5-09 mg by ity of extended 13:29: mouth in [place] (DILANTIN 56 the Medical ORAL) morning. Branch phenytoin 2023-0 Yes 100mg Take 100 Uni vers sodium 5-09 mg by ity of extended 13:29: mouth in [place] (DILANTIN 56 the Medical ORAL) morning. Branch phenytoin 2023-0 Yes 100mg Take 100 Uni vers sodium 5-09 mg by ity of extended 13:29: mouth in [place] (DILANTIN 56 the Medical ORAL) morning. Branch phenytoin 2023-0 Yes 100mg Take 100 Uni vers sodium 5-09 mg by ity of extended 13:29: mouth in [place] (DILANTIN 56 the Medical ORAL) morning. Branch phenytoin 2023-0 Yes 100mg Take 100 Uni vers sodium 5-09 mg by ity of extended 13:29: mouth in [place] (DILANTIN 56 the Medical ORAL) morning. Branch ergocalcife 2023-0 Yes [id number] Take 1 Univers rol, 5-05 capsule by ity of vitamin d2, 00:00: mouth [place] 1,250 mcg 00 weekly. Medical (50,000 Branch unit) capsule calcium 2023-0 Yes [id number] 1{tbl} Take 1 Un ramses carbonate 5-05 tablet by ity o f (CALCIUM 00:00: mouth in [place] 500) 500 mg 00 the Medical calcium morning. Branch (1,250 mg) chewable tablet ergocalcife 2023-0 Yes [id number] Take 1 Univers rol, 5-05 capsule by ity of vitamin d2, 00:00: mouth [place] 1,250 mcg 00 weekly. Medical (50,000 Branch unit) capsule calcium 2023-0 Yes [id number] 1{tbl} Take 1 Un ramses carbonate 5-05 tablet by ity o f (CALCIUM 00:00: mouth in [place] 500) 500 mg 00 the Medical calcium morning. Branch (1,250 mg) chewable tablet ergocalcife 2023-0 Yes [id number] Take 1 Univers rol, 5-05 capsule by ity of vitamin d2, 00:00: mouth [place] 1,250 mcg 00 weekly. Medical (50,000 Branch unit) capsule calcium 2023-0 Yes [id number] 1{tbl} Take 1 Un ramses carbonate 5-05 tablet by ity o f (CALCIUM 00:00: mouth in [place] 500) 500 mg 00 the Medical calcium morning. Branch (1,250 mg) chewable tablet ergocalcife 2023-0 Yes [id number] Take 1 Univers rol, 5-05 capsule by ity of vitamin d2, 00:00: mouth [place] 1,250 mcg 00 weekly. Medical (50,000 Branch unit) capsule calcium 2023-0 Yes [id number] 1{tbl} Take 1 Un ramses carbonate 5-05 tablet by ity o f (CALCIUM 00:00: mouth in [place] 500) 500 mg 00 the Medical calcium morning. Branch (1,250 mg) chewable tablet ergocalcife 2023-0 Yes [id number] Take 1 Univers rol, 5-05 capsule by ity of vitamin d2, 00:00: mouth [place] 1,250 mcg 00 weekly. Medical (50,000 Branch unit) capsule calcium 2023-0 Yes [id number] 1{tbl} Take 1 Un ramses carbonate 5-05 tablet by ity o f (CALCIUM 00:00: mouth in [place] 500) 500 mg 00 the Medical calcium morning. Branch (1,250 mg) chewable tablet ergocalcife 2023-0 Yes [id number] Take 1 Univers rol, 5-05 capsule by ity of vitamin d2, 00:00: mouth [place] 1,250 mcg 00 weekly. Medical (50,000 Branch unit) capsule calcium 2023-0 Yes [id number] 1{tbl} Take 1 Un ramses carbonate 5-05 tablet by ity o f (CALCIUM 00:00: mouth in [place] 500) 500 mg 00 the Medical calcium morning. Branch (1,250 mg) chewable tablet calcium 2023-0 Yes [id number] 1{tbl} Take 1 Un ramses carbonate 5-05 tablet by ity o f (CALCIUM 00:00: mouth in [place] 500) 500 mg 00 the Medical calcium morning. Branch (1,250 mg) chewable tablet calcium 2023-0 Yes [id number] 1{tbl} Take 1 Un ramses carbonate 5-05 tablet by ity o f (CALCIUM 00:00: mouth in [place] 500) 500 mg 00 the Medical calcium morning. Branch (1,250 mg) chewable tablet calcium 2023-0 Yes [id number] 1{tbl} Take 1 Un ramses carbonate 5-05 tablet by ity o f (CALCIUM 00:00: mouth in [place] 500) 500 mg 00 the Medical calcium morning. Branch (1,250 mg) chewable tablet calcium 2023-0 Yes [id number] 1{tbl} Take 1 Un ramses carbonate 5-05 tablet by ity o f (CALCIUM 00:00: mouth in [place] 500) 500 mg 00 the Medical calcium morning. Branch (1,250 mg) chewable tablet calcium 2023-0 Yes [id number] 1{tbl} Take 1 Un ramses carbonate 5-05 tablet by ity o f (CALCIUM 00:00: mouth in [place] 500) 500 mg 00 the Medical calcium morning. Branch (1,250 mg) chewable tablet calcium 2023-0 Yes [id number] 1{tbl} Take 1 Un ramses carbonate 5-05 tablet by ity o f (CALCIUM 00:00: mouth in [place] 500) 500 mg 00 the Medical calcium morning. Branch (1,250 mg) chewable tablet calcium 2023-0 Yes [id number] 1{tbl} Take 1 Un ramses carbonate 5-05 tablet by ity o f (CALCIUM 00:00: mouth in [place] 500) 500 mg 00 the Medical calcium morning. Branch (1,250 mg) chewable tablet calcium 2023-0 Yes [id number] 1{tbl} Take 1 Un ramses carbonate 5-05 tablet by ity o f (CALCIUM 00:00: mouth in [place] 500) 500 mg 00 the Medical calcium morning. Branch (1,250 mg) chewable tablet ergocalcife 2023-0 2023- No [id number] Take 1 Univers rol, 5-05 05-15 capsule by ity of vitamin d2, 00:00: 00:00 [place] 1,250 mcg 00 :00 weekly. Medical (50,000 Branch unit) capsule ergocalcife 2023-0 2023- No [id number] Take 1 Univers rol, 5-05 05-15 capsule by ity of vitamin d2, 00:00: 00:00 [place] 1,250 mcg 00 :00 weekly. Medical (50,000 Branch unit) capsule NaCl 0.9% 2022-0 3- No 1000mL at 999 Uni vers (NS) bolus 08-26-21 mL/hr, ity of infusion 19:45: 21:40 1,000 mL, [place] 1,000 mL 00 :00 IV Medical Infusion, Branch ONCE, 1 dose, On 08/26/22 at 1445, STAT levETIRAcet 3-0 2023- No 1000mg 1,000 mg, Univers am (KEPPRA) 08-26 IV ity of in NACL 19:00: 19:48 Piggyback, [place] as (ISO-OS) 00 :00 ONCE, 1 Medical 1,000 dose, On mg/100 mL Fri RTU 08/26/22 at 1400, Administer over 15 Minutes, 100 mL levETIRAcet 2023-0 Yes 500mg Take 1 Uni vers am 500 mg 4-20 tablet by ity o f tablet 14:09: mouth in [address] morning [place] and 1 tablet in the evening. levETIRAcet 2023-0 Yes 500mg Take 1 Uni vers am 500 mg 4-20 tablet by ity o f tablet 14:09: mouth in [address] morning [place] and 1 tablet in the evening. levETIRAcet 2023-0 Yes 500mg Take 1 Uni vers am 500 mg 4-20 tablet by ity o f tablet 14:09: mouth in [address] and 1 tablet in the evening. levETIRAcet 2023-0 Yes 500mg Take 1 Uni vers am 500 mg 4-20 tablet by ity o f tablet 14:09: mouth in [address] morning [place] and 1 tablet in the evening. levETIRAcet 2023-0 Yes 500mg Take 1 Uni vers am 500 mg 4-20 tablet by ity o f tablet 14:09: mouth in [address] morning [place] and 1 tablet in the evening. levETIRAcet 2023-0 Yes 500mg Take 1 Uni vers am 500 mg 4-20 tablet by ity o f tablet 14:09: mouth in [address] morning [place] and 1 tablet in the evening. levETIRAcet 2023-0 Yes 500mg Take 1 Uni vers am 500 mg 4-20 tablet by ity o f tablet 14:09: mouth in [address] morning [place] and 1 tablet in the evening. levETIRAcet 2023-0 Yes 500mg Take 1 Uni vers am 500 mg 4-20 tablet by ity o f tablet 14:09: mouth in [place] [address] the [facility] Branch and 1 tablet in the evening. levETIRAcet 2023-0 Yes 500mg Take 1 Uni vers am 500 mg 4-20 tablet by ity o f tablet 14:09: mouth in [place] [address] the [facility] Branch and 1 tablet in the evening. levETIRAcet 2023-0 Yes 500mg Take 1 Uni vers am 500 mg 4-20 tablet by ity o f tablet 14:09: mouth in [place] [address] the [facility] and 1 tablet in the evening. levETIRAcet 2023-0 Yes 500mg Take 1 Uni vers am 500 mg 4-20 tablet by ity o f tablet 14:09: mouth in [address] and 1 tablet in the evening. levETIRAcet 2023-0 Yes 500mg Take 1 Uni vers am 500 mg 4-20 tablet by ity o f tablet 14:09: mouth in [address] and 1 tablet in the evening. levETIRAcet 2023-0 Yes 500mg Take 1 Uni vers am 500 mg 4-20 tablet by ity o f tablet 14:09: mouth in [address] and 1 tablet in the evening. levETIRAcet 2023-0 Yes 500mg Take 1 Uni vers am 500 mg 4-20 tablet by ity o f tablet 14:09: mouth in [address] and 1 tablet in the evening. levETIRAcet 2023-0 Yes 500mg Take 1 Uni vers am 500 mg 4-20 tablet by ity o f tablet 14:09: mouth in [address] and 1 tablet in the evening. levETIRAcet 2023-0 Yes 500mg Take 1 Uni vers am 500 mg 4-20 tablet by ity o f tablet 14:09: mouth in [address] and 1 tablet in the evening. levETIRAcet 2023-0 Yes 500mg Take 1 Uni vers am 500 mg 4-20 tablet by ity o f tablet 14:09: mouth in [address] morning [place] and 1 tablet in the evening. levETIRAcet 2023-0 Yes 500mg Take 1 Uni vers am 500 mg 4-20 tablet by ity o f tablet 14:09: mouth in [place] 24 the Medical morning Branch and 1 tablet in the evening. levETIRAcet 2023-0 Yes 500mg Take 1 Uni vers am 500 mg 4-20 tablet by ity o f tablet 14:09: mouth in [place] 24 the Medical morning Branch and 1 tablet in the evening. escitalopra 2023-0 Yes [id number] 10mg Take 1 Univers m oxalate 4-20 tablet by ity o f 10 mg 00:00: mouth in [place] tablet 00 the Medical morning. Branch Take 1/2 tablet by mouth in the morning for the 1st week prior to transition ing to full dose. escitalopra 2023-0 Yes [id number] 10mg Take 1 Univers m oxalate 4-20 tablet by ity o f 10 mg 00:00: mouth in [place] tablet 00 the Medical morning. Branch Take 1/2 tablet by mouth in the morning for the 1st week prior to transition ing to full dose. escitalopra 2023-0 Yes [id number] 10mg Take 1 Univers m oxalate 4-20 tablet by ity o f 10 mg 00:00: mouth in [place] tablet 00 the Medical morning. Branch Take 1/2 tablet by mouth in the morning for the 1st week prior to transition ing to full dose. escitalopra 2023-0 Yes [id number] 10mg Take 1 Univers m oxalate 4-20 tablet by ity o f 10 mg 00:00: mouth in [place] tablet 00 the Medical morning. Branch Take 1/2 tablet by mouth in the morning for the 1st week prior to transition ing to full dose. escitalopra 2023-0 Yes [id number] 10mg Take 1 Univers m oxalate 4-20 tablet by ity o f 10 mg 00:00: mouth in [place] tablet 00 the Medical morning. Branch Take 1/2 tablet by mouth in the morning for the 1st week prior to transition ing to full dose. escitalopra 2023-0 Yes [id number] 10mg Take 1 Univers m oxalate 4-20 tablet by ity o f 10 mg 00:00: mouth in [place] tablet 00 the Medical morning. Branch Take 1/2 tablet by mouth in the morning for the 1st week prior to transition ing to full dose. escitalopra 2023-0 Yes [id number] 10mg Take 1 Univers m oxalate 4-20 tablet by ity o f 10 mg 00:00: mouth in [place] tablet 00 the Medical morning. Branch Take 1/2 tablet by mouth in the morning for the 1st week prior to transition ing to full dose. escitalopra 2023-0 Yes [id number] 10mg Take 1 Univers m oxalate 4-20 tablet by ity o f 10 mg 00:00: mouth in [place] tablet 00 the Medical morning. Branch Take 1/2 tablet by mouth in the morning for the 1st week prior to transition ing to full dose. escitalopra 2023-0 Yes [id number] 10mg Take 1 Univers m oxalate 4-20 tablet by ity o f 10 mg 00:00: mouth in [place] tablet 00 the Medical morning. Branch Take 1/2 tablet by mouth in the morning for the 1st week prior to transition ing to full dose. escitalopra 3-0 Yes [id number] 10mg Take 1 Univers m oxalate 4-20 tablet by ity o f 10 mg 00:00: mouth in [place] tablet 00 the Medical morning. Branch Take 1/2 tablet by mouth in the morning for the 1st week prior to transition ing to full dose. escitalopra 3-0 Yes [id number] 10mg Take 1 Univers m oxalate 4-20 tablet by ity o f 10 mg 00:00: mouth in [place] tablet 00 the Medical morning. Branch Take 1/2 tablet by mouth in the morning for the 1st week prior to transition ing to full dose. escitalopra 3-0 Yes [id number] 10mg Take 1 Univers m oxalate 4-20 tablet by ity o f 10 mg 00:00: mouth in [place] tablet 00 the Medical morning. Branch Take 1/2 tablet by mouth in the morning for the 1st week prior to transition ing to full dose. escitalopra 3-0 Yes [id number] 10mg Take 1 Univers m oxalate 4-20 tablet by ity o f 10 mg 00:00: mouth in [place] tablet 00 the Medical morning. Branch Take 1/2 tablet by mouth in the morning for the 1st week prior to transition ing to full dose. escitalopra 2023-0 Yes [id number] 10mg Take 1 Univers m oxalate 4-20 tablet by ity o f 10 mg 00:00: mouth in [place] tablet 00 the Medical morning. Branch Take 1/2 tablet by mouth in the morning for the 1st week prior to transition ing to full dose. escitalopra Yes [id number] 10mg Take 1 Univers m oxalate 4-20 tablet by ity o f 10 mg 00:00: mouth in [place] tablet 00 the Medical morning. Branch Take 1/2 tablet by mouth in the morning for the 1st week prior to transition ing to full dose. escitalopra Yes [id number] 10mg Take 1 Univers m oxalate 4-20 tablet by ity o f 10 mg 00:00: mouth in [place] tablet 00 the Medical morning. Branch Take 1/2 tablet by mouth in the morning for the 1st week prior to transition ing to full dose. escitalopra 2022- No [id number] 10mg Take 1 Univers m oxalate 4-20 06-03 tablet by ity of 10 mg 00:00: 00:00 mouth in [place] tablet 00 :00 the Medical morning. Branch Take 1/2 tablet by mouth in the morning for the 1st week prior to transition ing to full dose. diazePAM 2022- Yes [id number] 10mg Take 1 U nivers (VALIUM) 10 4-11 04-12 tablet by it y of mg tablet 00:00: 04:59 mouth [place] 00 :00 now for 1 Medical dose. Branch diazePAM 2022- No [id number] 10mg Take 1 U nivers (VALIUM) 10 4-11 04-12 tablet by it y of mg tablet 00:00: 04:59 mouth [place] 00 :00 now for 1 Medical dose. Branch diazePAM 2022- No [id number] 10mg Take 1 U nivers (VALIUM) 10 4-11 04-12 tablet by it y of mg tablet 00:00: 04:59 mouth [place] 00 :00 now for 1 Medical dose. Branch levETIRAcet Yes 500mg Take 1 Uni vers am (KEPPRA) 4-07 tablet by ity of 500 mg 14:35: mouth in [place] tablet 57 the Medical morning Branch and 1 tablet in the evening. levETIRAcet 0 Yes 500mg Take 1 Uni vers am (KEPPRA) 4-07 tablet by ity of 500 mg 14:35: mouth in [place] tablet 57 the Medical morning Branch and 1 tablet in the evening. levETIRAcet 2023-0 Yes 500mg Take 1 Uni vers am (KEPPRA) 4-07 tablet by ity of 500 mg 14:35: mouth in [place] tablet 57 the Medical morning Branch and [...] tablet in the evening. norgestimat 2023-0 Yes [id number] 1{tbl} Take 1 Univers e-ethinyl 4-07 tablet by ity o f estradioL 00:00: [place] (ORTH[place] 00 the Medical TRI-CYCLEN morning. Bran h LO, 28,) 0.18/0.215/ 0.25 mg-25 mcg tablet norgestimat 2023-0 Yes [id number] 1{tbl} Take 1 Univers e-ethinyl 4-07 tablet by ity o f estradioL 00:00: [place] ([place]TH[place] 00 the Medical TRI-CYCLEN morning. Bran h LO, 28,) 0.18/0.215/ 0.25 mg-25 mcg tablet norgestimat 2023-0 Yes [id number] 1{tbl} Take 1 Univers e-ethinyl 4-07 tablet by ity o f estradioL 00:00: [place] ([place]TH[place] 00 the Medical TRI-CYCLEN morning. Bran h LO, 28,) 0.18/0.215/ 0.25 mg-25 mcg tablet norgestimat 2023-0 Yes [id number] 1{tbl} Take 1 Univers e-ethinyl 4-07 tablet by ity o f estradioL 00:00: [place] ([place]TH[place] 00 the Medical TRI-CYCLEN morning. Bran h LO, 28,) 0.18/0.215/ 0.25 mg-25 mcg tablet norgestimat 2023-0 Yes [id number] 1{tbl} Take 1 Univers e-ethinyl 4-07 tablet by ity o f estradioL 00:00: [place] ([place]TH[place] the TRI-CYCLEN morning. [facility], 28,) 0.18/0.215/ 0.25 mg-25 mcg tablet norgestimat 2023-0 Yes [id number] 1{tbl} Take 1 Univers e-ethinyl 4-07 tablet by ity o f estradioL 00:00: [place] ([place]TH[place] 00 the TRI-CYCLEN morning. [facility], 28,) 0.18/0.215/ 0.25 mg-25 mcg tablet norgestimat 2023-0 Yes [id number] 1{tbl} Take 1 Univers e-ethinyl 4-07 tablet by ity o f estradioL 00:00: [place] ([place]TH[place] the -CYCLE morning. [facility], 28,) 0.18/0.215/ 0.25 mg-25 mcg tablet norgestimat 2023-0 Yes [id number] 1{tbl} Take 1 Univers e-ethinyl 4-07 tablet by ity o f estradioL 00:00: [place] ([place]TH[place] 00 the -CYCLE morning. [facility], 28,) 0.18/0.215/ 0.25 mg-25 mcg tablet norgestimat 2023-0 Yes [id number] 1{tbl} Take 1 Univers e-ethinyl 4-07 tablet by ity o f estradioL 00:00: [place] (ORTHO 00 the CYCLE morning. [facility], 28,) 0.18/0.215/ 0.25 mg-25 mcg tablet norgestimat 2023-0 Yes [id number] 1{tbl} Take 1 [facility] e-ethinyl 4-07 tablet by ity o f estradioL 00:00: [place] ([place]TH[place] 00 the -CYCLEN morning. [facility], 28,) 0.18/0.215/ 0.25 mg-25 mcg tablet norgestimat 2023-0 Yes [id number] 1{tbl} Take 1 [facility] e-ethinyl 4-07 tablet by ity o f estradioL 00:00: [place] ([place]THO 00 the Medical TRI-CYCLEN morning. [facility], 28,) 0.18/0.215/ 0.25 mg-25 mcg tablet norgestimat 2023-0 Yes [id number] 1{tbl} Take 1 [facility] e-ethinyl 4-07 tablet by ity o f estradioL 00:00: [place] (ORTHO 00 the Medical TRI-CYCLEN morning. [facility], 28,) 0.18/0.215/ 0.25 mg-25 mcg tablet norgestimat 2023-0 Yes [id number] 1{tbl} Take 1 [facility] e-ethinyl 4-07 tablet by ity o f estradioL 00:00: [place] (ORTHO 00 the Medical TRI-CYCLEN morning. [facility], 28,) 0.18/0.215/ 0.25 mg-25 mcg tablet norgestimat 2023-0 Yes [id number] 1{tbl} Take 1 Univers e-ethinyl 4-07 tablet by ity o f estradioL 00:00: [place] (ORTHO 00 the Medical TRI-CYCLEN morning. [facility], 28,) 0.18/0.215/ 0.25 mg-25 mcg tablet norgestimat 3-0 2023- No [id number] 1{tbl} Take 1 Univers e-ethinyl 4-07 05-12 tablet by ity of estradioL 00:00: 00:00 mouth in [place] (ORTHO 00 :00 the Medical TRI-CYCLEN morning. [facility], 28,) 0.18/0.215/ 0.25 mg-25 mcg tablet norgestimat 2023-0 2023- No [id number] 1{tbl} Take 1 Univers e-ethinyl 4-07 05-12 tablet by ity of estradioL 00:00: 00:00 mouth in [place] (ORTHO 00 :00 the Medical TRI-CYCLEN morning. [facility], 28,) 0.18/0.215/ 0.25 mg-25 mcg tablet norgestimat 2023-0 2023- No [id number] 1{tbl} Take 1 Univers e-ethinyl 4-07 05-12 tablet by ity of estradioL 00:00: 00:00 mouth in [place] (ORTHO 00 :00 the Medical TRI-CYCLEN morning. [facility] h LO, 28,) 0.18/0.215/ 0.25 mg-25 mcg tablet No known No No known Unive rs medications 1-25 medication it y of 21:43: s [address] No known 2022- No No known Unive rs medications 1-25 medication it y of 21:43: [address] No known 2022- No No known Unive rs medications 1-25 medication it y of 21:43: [address] No known 2021-05 No No known Unive rs medications 2-22 medication it y of 15:02: [address] No known 2021-05 No No known Unive rs medications 2-22 medication it y of 15:02: [address] No known 2021-05 No No known Unive rs medications 2-22 medication it y of 15:02: [address] No known 2021-05 No No known Unive rs medications 2-22 medication it y of 14:26: [address] No known 2021-05 No No known Unive rs medications 2-15 medication it y of 17:38: s [address] oseltamivir 2021-05- No [id number] 75mg Take 1 Univers (TAMIFLU) 2-15 - capsule by ity of 75 mg 00:00: 05:59 mouth in [place] capsule 00 :00 the Medical morning Branch and 1 capsule in the evening. Do all this for 5 days. oseltamivir 2021-05- No [id number] 75mg Take 1 Univers (TAMIFLU) 2-15 - capsule by ity of 75 mg 00:00: 05:59 mouth in [place] capsule 00 :00 the Medical morning Branch and 1 capsule in the evening. Do all this for 5 days. oseltamivir 2021-05- No [id number] 75mg Take 1 Univers (TAMIFLU) 2-15 - capsule by ity of 75 mg 00:00: 05:59 mouth in [place] capsule 00 :00 the Medical morning Branch and 1 capsule in the evening. Do all this for 5 days. foLIC acid 2022-1 Yes 1mg 1 mg, Univer s (FOLATE) 2-13 Oral, ity of tablet 1 mg 15:00: DAILY[place] 00 First dose Medical on Mon04/19/22 at 0900, Until Discontinu ed, Routine heparin 2021-05 Yes 5000U 5,000 Univers (porcine) 2-13 Units, ity of injection 02:00: [place] 5,000 Units 00 us, Q12H, Med ical First dose Branch on Mon04/18/22 at 2000, Until Discontinu ed, Routine acetaminoph 2021-05 Yes 650mg 650 mg, Un ramses en 2-12 Oral, ity of (TYLENOL) 16:31: Q6HPRN, [place] tablet 650 46 Starting Medic al mg on Mon04/18/22 at 1031, Until Discontinu ed, Routine, Pain (scale 1-3) LORazepam 2021-05 Yes 2mg 2 mg, Slow Un ramses (ATIVAN) 2-12 IV Push, ity of injection 2 16:30: PRN - SEE [place] mg 39 INSTRUCTIO Medical NS, 2 Branch doses, Starting on Mon04/18/22 at 1030, Until Discontinu ed, STAT, For seizure lasting two minutes or longer. lacosamide 2021-05 Yes [id number] 50mg Take 1 U nivers (VIMPAT) 50 2-08 tablet by ity of mg tablet 00:00: mouth [place] 00 every 8 Medical (eight) Branch hours. lacosamide 2021-05 Yes [id number] 50mg Take 1 U nivers (VIMPAT) 50 2-08 tablet by ity of mg tablet 00:00: mouth [place] 00 every 8 Medical (eight) Branch hours. lacosamide 2021-05- No [id number] 50mg Take 1 Univers (VIMPAT) 50 2-08 12-15 tablet by it y of mg tablet 00:00: 00:00 mouth [place] 00 :00 every 8 Medical (eight) Branch hours. lacosamide 2021-05 Yes [id number] 50mg Take 1 U nivers (VIMPAT) 50 2-07 tablet by ity of mg tablet 00:00: mouth [place] 00 every 8 Medical (eight) Branch hours. lacosamide 2021-05- No [id number] 50mg Take 1 Univers (VIMPAT) 50 06-14- tablet by it y of mg tablet 00:00: 00:00 mouth [place] 00 :00 every 8 Medical (eight) Branch hours. lacosamide 2021-05- No [id number] 50mg Take 1 Univers (VIMPAT) 50 06-14 12-08 tablet by it y of mg tablet 00:00: 00:00 mouth [place] 00 :00 every 8 Medical (eight) Branch hours. lacosamide 2021-05 Yes [id number] 50mg Take 1 U nivers (VIMPAT) 50 1-30 tablet by ity of mg tablet 00:00: mouth [place] 00 every 8 Medical (eight) Branch hours. lacosamide 2021-05- No [id number] 50mg Take 1 Univers (VIMPAT) 50 1-30 04-13 tablet by it y of mg tablet 00:00: 00:00 mouth [place] 00 :00 every 8 Medical (eight) Branch hours. gadobenate 2021-05- No [id number] .2mL/kg 0.2 mL/kg, [facility] dimeglumine 06-06 Intravenou i ty of (MULTIHANCE 00:00: 23:52 s, ONCE, 1 [place] -10 mL) 00 :00 dose, On Medical injection [facility] 0.2 mL/kg 04/05/22 at 1800, Routine pantoprazol 2021-05 Yes 40mg 40 mg, Univ ers e 1-14 Oral, ity of (PROTONIX) 15:00: DAILY, [place] EC tablet 00 First dose Medi michael 40 mg on [facility] Branch 03/21/22 at 0900, Until Discontinu ed, Routine levETIRAcet 2021-05 Yes 1500mg 1,500 mg, Univers am (KEPPRA) 1-14 Oral, BID, it y of tablet 14:00: First dose [place] 1,500 mg 00 on [facility] 03/21/22 Branch at 0800, Until Discontinu ed, Routine heparin 2021-05 Yes 5000U 5,000 Univers (porcine) 1-14 Units, ity of injection 14:00: [place] 5,000 Units 00 us, Q12H, Med ical First dose Branch on [facility] 03/21/22 at 0800, Until Discontinu ed, Routine levETIRAcet 2021-05 1500mg 1,500 mg, Univers am (KEPPRA) 05-21 IV ity of in NACL 06:15: 06:01 Piggyback, [place] (ISO-OS) 00 :00 ONCE, 1 Medical 1,500 dose, On Branch mg/100 mL Mon RTU 03/21/22 at 0015, Administer over 15 Minutes, 100 mL topiramate 2021-05 Yes 25mg 25 mg, Unive rs (TOPAMAX) -14 Oral, BID, ity of tablet 25 05:45: First dose [place] mg 00 on [facility] 03/20/22 Branch at 2345, Until Discontinu ed, Routine
seafood service team member approving Restricted medication : CARMEN TALBERT lacosamide 2021-05 Yes 50mg 50 mg, Unive rs (VIMPAT) 05-21 Oral, BID, ity o f tablet 50 04:00: First dose [place] mg 00 on [facility] 03/20/22 Branch at 2200, Until Discontinu ed, Routine
seafood service team member approving Restricted medication : ACRMEN TALBERT NaCl 0.9% 2021-05 Yes 1000mL at 75 Unive rs (NS) IV 1-14 mL/hr, IV ity of infusion 04:00: Infusion[place] 1,000 mL 00 CONTINUOUS Medic al , Starting Branch on [place] 03/20/22 at 2200, Until Discontinu ed, Routine LORazepam 2021-05 Yes 2mg 2 mg, Slow Un ramses (ATIVAN) 05-21 IV Push, ity of injection 2 03:59: PRN, 5 [place] mg 33 doses, Medical Starting Branch on [place] 03/20/22 at 2159, Until Discontinu ed, Routine, Seizures acetaminoph 2021-05 Yes 650mg 650 mg, Un ramses en -14 Oral, ity of (TYLENOL) 03:52: Q6HPRN, [place] tablet 650 20 Starting Medic al mg on [place] Branch 03/20/22 at 2152, Until Discontinu ed, Routine, Pain (scale 4-6) docusate 2021-05 Yes 100mg 100 mg, Unive rs (COLACE) -14 Oral, ity of capsule 100 03:52: QDAILYPRN, [place] mg 20 Starting Medical on [place] Branch 03/20/22 at 2152, Until Discontinu ed, Routine, Constipati on NaCl 0.9% 2021-05 No 1000mL at 999 Uni vers (NS) bolus -14 11-14 mL/hr, ity of infusion 00:15: 00:00 1,000 mL, [place] 1,000 mL 00 :00 IV Medical Infusion, Branch ONCE, 1 dose, On [place] 03/20/22 at 1815, STAT LORazepam 2021-05- No 2mg 2 mg, Slow U nivers (ATIVAN) 05-2013 IV Push, ity of injection 2 23:45: 23:43 ONCE, 1 [place] mg 00 :00 dose, On Medical [facility] 03/20/22 at 1745, STAT lacosamide 2021-05 Yes [id number] 50mg Take 1 U nivers (VIMPAT) 50 1-10 tablet by ity of mg tablet 00:00: [place] the Medical morning Branch and 1 tablet in the evening. lacosamide 2021-05 Yes [id number] 50mg Take 1 U nivers (VIMPAT) 50 1-10 tablet by ity of mg tablet 00:00: [place] the Medical morning Branch and 1 tablet in the evening. lacosamide 2021-05 Yes [id number] 50mg Take 1 U nivers (VIMPAT) 50 1-10 tablet by ity of mg tablet 00:00: [place] the Medical morning Branch and 1 tablet in the evening. lacosamide 2021-05 Yes [id number] 50mg Take 1 U nivers (VIMPAT) 50 1-10 tablet by ity of mg tablet 00:00: [place] 00 the Medical morning Branch and 1 tablet in the evening. lacosamide 2021-05 Yes [id number] 50mg Take 1 U nivers (VIMPAT) 50 1-10 tablet by ity of mg tablet 00:00: [place] 00 the Medical morning Branch and 1 tablet in the evening. lacosamide 2021-05 Yes [id number] 50mg Take 1 U nivers (VIMPAT) 50 1-10 tablet by ity of mg tablet 00:00: [place] 00 the Medical morning Branch and 1 tablet in the evening. lacosamide 2021-05 Yes [id number] 50mg Take 1 U nivers (VIMPAT) 50 1-10 tablet by ity of mg tablet 00:00: mouth in [facility] the Medical morning Branch and 1 tablet in the evening. lacosamide 2021-05- No [id number] 50mg Take 1 Univers (VIMPAT) 50 1-10 11-30 tablet by it y of mg tablet 00:00: 00:00 mouth in [place] 00 :00 the Medical morning Branch and 1 tablet in the evening. topiramate 2021-05 Yes [id number] 25mg Take 1 Univers 25 mg 1-03 tablet by ity of tablet 00:00: mouth in [place] 00 the Medical morning Branch and 1 tablet in the evening. topiramate 2021-05 Yes [id number] 25mg Take 1 Univers 25 mg 1-03 tablet by ity of tablet 00:00: mouth in [place] 00 the Medical morning Branch and 1 tablet in the evening. topiramate 2021-05 Yes [id number] 25mg Take 1 Univers 25 mg 1-03 tablet by ity of tablet 00:00: mouth in [place] 00 the Medical morning Branch and 1 tablet in the evening. topiramate 2021-05 Yes [id number] 25mg Take 1 Univers 25 mg 1-03 tablet by ity of tablet 00:00: mouth in [place] 00 the Medical morning Branch and 1 tablet in the evening. topiramate 2021-05 Yes [id number] 25mg Take 1 Univers 25 mg 1-03 tablet by ity of tablet 00:00: mouth in [place] 00 the Medical morning Branch and 1 tablet in the evening. topiramate 2021-05 Yes [id number] 25mg Take 1 Univers 25 mg 1-03 tablet by ity of tablet 00:00: mouth in [place] 00 the Medical morning Branch and 1 tablet in the evening. topiramate 2021-05 Yes [id number] 25mg Take 1 Univers 25 mg 1-03 tablet by ity of tablet 00:00: mouth in [place] 00 the Medical morning Branch and 1 tablet in the evening. topiramate 2021-05 Yes [id number] 25mg Take 1 Univers 25 mg 1-03 tablet by ity of tablet 00:00: mouth in [place] [address] the Medical morning [place] and 1 tablet in the evening. topiramate 2021-05 Yes [id number] 25mg Take 1 Univers 25 mg 1-03 tablet by ity of tablet 00:00: mouth in [place] 00 the Medical morning [place] and 1 tablet in the evening. topiramate 2021-05 Yes [id number] 25mg Take 1 Univers 25 mg 1-03 tablet by ity of tablet 00:00: mouth in [place] [address] the Medical morning Branch and 1 tablet in the evening. topiramate 2021-05 Yes [id number] 25mg Take 1 Univers 25 mg 1-03 tablet by ity of tablet 00:00: mouth in [place] 00 the Medical morning Branch and 1 tablet in the evening. topiramate 2021-05 Yes [id number] 25mg Take 1 Univers 25 mg 1-03 tablet by ity of tablet 00:00: mouth in [place] [address] the Medical morning [place] and 1 tablet in the evening. topiramate 2021-05 Yes [id number] 25mg Take 1 Univers 25 mg 1-03 tablet by ity of tablet 00:00: mouth in [place] [address] the Medical morning [place] and 1 tablet in the evening. topiramate 2021-05 Yes [id number] 25mg Take 1 Univers 25 mg 1-03 tablet by ity of tablet 00:00: mouth in [place] [address] the [facility] morning [place] and 1 tablet in the evening. topiramate 2021-05- No [id number] 25mg Take 1 Univers 25 mg 1-03 12-15 tablet by ity of tablet 00:00: 00:00 mouth in [place] 00 :00 the [facility] morning [place] and 1 tablet in the evening. topiramate Yes 25mg 25 mg, Unive rs (TOPAMAX) 01-31 Oral, ity of tablet 25 17:30: DAILY, [place] mg 00 First dose Medical on [facility] 01/31/22 at 1230, Until Discontinu ed, Routine
seafood service team member approving Restricted medication : CECILIA VASQUEZ SERTraline Yes 25mg 25 mg, Unive rs (ZOLOFT) 01-31 Oral, ity of tablet 25 14:00: DAILY, [place] mg 00 First dose Medical on [facility] 01/31/22 at 0900, Until Discontinu ed, Routine foLIC acid 2022-0 Yes 1mg 1 mg, Univer s (FOLATE) 01-31 Oral, ity of tablet 1 mg 14:00: DAILY, [place] 00 First dose Medical on [facility] 01/31/22 at 0900, Until Discontinu ed, Routine heparin 2021-0 Yes 5000U 5,000 Univers (porcine) 01-31 Units, ity of injection 13:00: [place] 5,000 Units 00 us, Q12H, Med ical First dose Branch on Mon01/31/22 at 0800, Until Discontinu ed, Routine levETIRAcet 0 Yes 1500mg 1,500 mg, Univers am (KEPPRA) 01-31 Oral, BID, it y of tablet 13:00: First dose [place] 1,500 mg 00 on [facility] 01/31/22 at Branch 0800, Until Discontinu ed, Routine acetaminoph 0 Yes 650mg 650 mg, Un ramses en 01-31 Oral, ity of (TYLENOL) 04:06: Q6HPRTawanda [place] tablet 650 49 Starting Medic al mg on [facility] 01/30/22 at 2306, Until Discontinu ed, Routine, Pain (scale 4-6) docusate 0 Yes 100mg 100 mg, Unive rs (COLACE) 01-31 Oral, ity of capsule 100 04:06: QDAILYPRNTawanda mg 48 Starting Medical on [facility] 01/30/22 at 2306, Until Discontinu ed, Routine, Constipati on ondansetron 0 Yes 4mg 4 mg, Unive rs (ZOFRAN-ODT 01-31 Oral, ity of ) 04:06: Q8HPRTawanda Lara disintegrat 36 Starting Medi michael ing tablet on [facility] 4 mg 01/30/22 at 2306, Until Discontinu ed, Routine, Nausea and Vomiting (N/V) acetaminoph 2021-0 Yes 650mg 650 mg, Un ramses en 01-31 Oral, ity of (TYLENOL) 04:06: Q6HPTawanda [place] tablet 650 15 Starting Medic al mg on [facility] 01/30/22 at 2306, Until Discontinu ed, Routine, Pain (scale 1-3), Temp > 38.5 C LORazepam 2021-0 2022- No .5mg 0.5 mg, Univ ers (ATIVAN) 01-31 Slow IV ity of injection 01:30: 00:35 Push, [place] 0.5 mg 00 :00 ONCE, 1 Medical dose, On Branch 01/30/22 at 2030, STAT
Is the medication being used for status epilepticu s? No topiramate 2021-2022- No [id number] 25mg Take 1 Univers 25 mg -31 07- tablet by ity of tablet 00:00: 04:59 mouth in [place] 00 :00 the [facility] for 180 days. topiramate 2021-0 2022- No [id number] 25mg Take 1 Univers 25 mg -31 07- tablet by ity of tablet 00:00: 04:59 mouth in [place] 00 :00 the [facility] for 180 days. topiramate 2021-0 2022- No [id number] 25mg Take 1 Univers 25 mg -31 07- tablet by ity of tablet 00:00: 04:59 mouth in [place] 00 :00 the [facility] for 180 days. topiramate 2021-0 2022- No [id number] 25mg Take 1 Univers 25 mg -31 07-26 tablet by ity of tablet 00:00: 04:59 mouth in [place] 00 :00 the [facility] for 180 days. topiramate 2021-0 2022- No [id number] 25mg Take 1 Univers 25 mg 9-31 07-26 tablet by ity of tablet 00:00: 04:59 mouth in [place] 00 :00 the [facility] for 180 days. topiramate 2021-0 3- No [id number] 25mg Take 1 Univers 25 mg 9-26 -26 tablet by ity of tablet 00:00: 04:59 mouth in [place] 00 :00 the [facility] for 180 days. topiramate 2022-0 3- No [id number] 25mg Take 1 Univers 25 mg 9-26 -26 tablet by ity of tablet 00:00: 04:59 mouth in [place] 00 :00 the [facility] for 180 days. topiramate 2-0 3- No [id number] 25mg Take 1 Univers 25 mg 9-26 -26 tablet by ity of tablet 00:00: 04:59 mouth in [place] 00 :00 the [facility] for 180 days. topiramate 2021-0 3- No [id number] 25mg Take 1 Univers 25 mg 9-26 03-26 tablet by ity of tablet 00:00: 04:59 mouth in [place] 00 :00 [facility] for 180 days. topiramate 2021-0 3- No [id number] 25mg Take 1 Univers 25 mg 9-26 03-26 tablet by ity of tablet 00:00: 04:59 mouth in [place] 00 :00 the [facility] for 180 days. topiramate 2021-0 3- No [id number] 25mg Take 1 Univers 25 mg 9-26 03-26 tablet by ity of tablet 00:00: 04:59 mouth in [place] 00 :00 [facility] for 180 days. topiramate 2021-0 2- No [id number] 25mg Take 1 Univers 25 mg 9-26 11-03 tablet by ity of tablet 00:00: 00:00 mouth in [place] 00 :00 [facility] for 180 days. topiramate 2021-0 2021- No [id number] 25mg Take 1 Univers 25 mg 9-26 -03 tablet by ity of tablet 00:00: 00:00 mouth in [place] 00 :00 [facility] for 180 days. levETIRAcet 2021- No [...] status epilepticu s? No levETIRAcet 2022- No [id number] 1500mg Take 2 Univers am 750 mg 01-27 tablets by ity of tablet 00:00: 04:59 mouth in [place] 00 :00 [facility] and 2 tablets in the evening. Do all this for 180 days. foLIC acid 2022- No [id number] 1mg Take 1 Univers 1 mg tablet 01-27 tablet by it y of 00:00: 04:59 mouth in [place] 00 :00 [facility] for 180 days. levETIRAcet 2022- No [id number] 1500mg Take 2 Univers am 750 mg 01-27 tablets by ity of tablet 00:00: 04:59 mouth in [place] 00 :00 [facility] and 2 tablets in the evening. Do all this for 180 days. foLIC acid 2022- No [id number] 1mg Take 1 Univers 1 mg tablet 01-27 tablet by it y of 00:00: 04:59 mouth in [place] 00 :00 [facility] for 180 days. levETIRAcet 2022- No [id number] 1500mg Take 2 Univers am 750 mg 01-27 tablets by ity of tablet 00:00: 04:59 mouth in [place] 00 :00 [facility] and 2 tablets in the evening. Do all this for 180 days. foLIC acid 2022- No [id number] 1mg Take 1 Univers 1 mg tablet 01-27 tablet by it y of 00:00: 04:59 mouth in [place] 00 :00 [facility] for 180 days. levETIRAcet 2022- No [id number] 1500mg Take 2 Univers am 750 mg 01-27 tablets by ity of tablet 00:00: 04:59 mouth in [place] 00 :00 [facility] and 2 tablets in the evening. Do all this for 180 days. foLIC acid 2022- No [id number] 1mg Take 1 Univers 1 mg tablet 01-27 tablet by it y of 00:00: 04:59 mouth in [place] 00 :00 the [facility] morning [place] for 180 days. levETIRAcet 2022- No [id number] 1500mg Take 2 Univers am 750 mg 01-27 tablets by ity of tablet 00:00: 04:59 mouth in [place] 00 :00 the [facility] morning Branch and 2 tablets in the evening. Do all this for 180 days. foLIC acid 2022- No [id number] 1mg Take 1 Univers 1 mg tablet 01-27 tablet by it y of 00:00: 04:59 mouth in [place] 00 :00 the [facility] for 180 days. levETIRAcet 2022- No [id number] 1500mg Take 2 Univers am 750 mg 01-27 tablets by ity of tablet 00:00: 04:59 mouth in [place] 00 :00 the [facility] and 2 tablets in the evening. Do all this for 180 days. foLIC acid 2022- No [id number] 1mg Take 1 Univers 1 mg tablet 01-27 tablet by it y of 00:00: 04:59 mouth in [place] 00 :00 the [facility] for 180 days. levETIRAcet 2022- No [id number] 1500mg Take 2 Univers am 750 mg 01-27 tablets by ity of tablet 00:00: 04:59 mouth in [place] 00 :00 the [facility] and 2 tablets in the evening. Do all this for 180 days. foLIC acid 2022- No [id number] 1mg Take 1 Univers 1 mg tablet 01-27 tablet by it y of 00:00: 04:59 mouth in [place] 00 :00 the [facility] for 180 days. levETIRAcet 2021-2022- No [id number] 1500mg Take 2 Univers am 750 mg 01-27 tablets by ity of tablet 00:00: 04:59 mouth in [place] 00 :00 [facility] [facility] [place] and 2 tablets in the evening. Do all this for 180 days. foLIC acid 2022- No [id number] 1mg Take 1 [facility] 1 mg tablet 01-27 tablet by it y of 00:00: 04:59 mouth in [place] 00 :00 [facility] for 180 days. levETIRAcet 2021-2022- No [id number] 1500mg Take 2 [facility] am 750 mg 01-27 tablets by ity of tablet 00:00: 04:59 mouth in [place] 00 :00 [facility] and 2 tablets in the evening. Do all this for 180 days. foLIC acid 2022- No [id number] 1mg Take 1 [facility] 1 mg tablet 01-27 tablet by it y of 00:00: 04:59 mouth in [place] 00 :00 [facility] for 180 days. levETIRAcet 2021-2022- No [id number] 1500mg Take 2 [facility] am 750 mg 01-27 tablets by ity of tablet 00:00: 04:59 mouth in [place] 00 :00 [facility] and 2 tablets in the evening. Do all this for 180 days. foLIC acid 2022- No [id number] 1mg Take 1 [facility] 1 mg tablet 01-27 tablet by it y of 00:00: 04:59 mouth in [place] 00 :00 [facility] for 180 days. levETIRAcet 2021-2022- No [id number] 1500mg Take 2 [facility] am 750 mg 01-27 tablets by ity of tablet 00:00: 04:59 mouth in [place] 00 :00 [facility] and 2 tablets in the evening. Do all this for 180 days. foLIC acid 2022- No [id number] 1mg Take 1 [facility] 1 mg tablet 01-27 tablet by it y of 00:00: 04:59 mouth in [place] 00 :00 [facility] for 180 days. levETIRAcet 2021-0 2022- No [id number] 1500mg Take 2 [facility] am 750 mg 01-27 tablets by ity of tablet 00:00: 04:59 mouth in [place] 00 :00 [facility] and 2 tablets in the evening. Do all this for 180 days. foLIC acid 2022- No [id number] 1mg Take 1 [facility] 1 mg tablet 01-27 tablet by it y of 00:00: 04:59 mouth in [place] 00 :00 [facility] for 180 days. levETIRAcet 2022- No [id number] 1500mg Take 2 [facility] am 750 mg 01-27 tablets by ity of tablet 00:00: 04:59 mouth in [place] 00 :00 the [facility] [place] and 2 tablets in the evening. Do all this for 180 days. foLIC acid 2022- No [id number] 1mg Take 1 [facility] 1 mg tablet 01-27 tablet by it y of 00:00: 04:59 mouth in [place] 00 :00 [facility] for 180 days. levETIRAcet 2022- No [id number] 1500mg Take 2 [facility] am 750 mg 01-27 tablets by ity of tablet 00:00: 04:59 mouth in [place] 00 :00 [facility] and 2 tablets in the evening. Do all this for 180 days. foLIC acid 2022- No [id number] 1mg Take 1 [facility] 1 mg tablet 01-27 tablet by it y of 00:00: 04:59 mouth in [place] 00 :00 [facility] for 180 days. levETIRAcet 2022- No [id number] 1500mg Take 2 [facility] am 750 mg 01-27 tablets by ity of tablet 00:00: 04:59 mouth in [place] 00 :00 [facility] and 2 tablets in the evening. Do all this for 180 days. foLIC acid 2022- No [id number] 1mg Take 1 [facility] 1 mg tablet 01-27 tablet by it y of 00:00: 04:59 mouth in [place] 00 :00 [facility] for 180 days. levETIRAcet 2022- No [id number] 1500mg Take 2 [facility] am 750 mg 01-27 tablets by ity of tablet 00:00: 04:59 mouth in [place] 00 :00 [facility] and 2 tablets in the evening. Do all this for 180 days. foLIC acid 2022- No [id number] 1mg Take 1 [facility] 1 mg tablet 01-27 tablet by it y of 00:00: 04:59 mouth in [place] 00 :00 [facility] for 180 days. levETIRAcet 2022- No [id number] 1500mg Take 2 [facility] am 750 mg 01-27 tablets by ity of tablet 00:00: 04:59 mouth in [place] 00 :00 the [facility] and 2 tablets in the evening. Do all this for 180 days. foLIC acid 2022- No [id number] 1mg Take 1 [facility] 1 mg tablet 01-27 tablet by it y of 00:00: 04:59 mouth in [place] 00 :00 the [facility] [place] for 180 days. levETIRAcet 2022- No [id number] 1500mg Take 2 [facility] am 750 mg 01-27 tablets by ity of tablet 00:00: 04:59 mouth in [place] 00 :00 the [facility] morning Branch and 2 tablets in the evening. Do all this for 180 days. foLIC acid 2022- No [id number] 1mg Take 1 [facility] 1 mg tablet 01-27 tablet by it y of 00:00: 04:59 mouth in [place] 00 :00 the [facility] [place] for 180 days. levETIRAcet 2022- No [id number] 1500mg Take 2 [facility] am 750 mg 01-27 tablets by ity of tablet 00:00: 04:59 mouth in [place] 00 :00 the [facility] [place] and 2 tablets in the evening. Do all this for 180 days. foLIC acid 2022- No [id number] 1mg Take 1 [facility] 1 mg tablet 01-27 tablet by it y of 00:00: 04:59 mouth in [place] 00 :00 the [facility] [place] for 180 days. levETIRAcet 2022- No [id number] 1500mg Take 2 [facility] am 750 mg 01-27 tablets by ity of tablet 00:00: 04:59 mouth in [place] 00 :00 the [facility] [place] and 2 tablets in the evening. Do all this for 180 days. foLIC acid 2022- No [id number] 1mg Take 1 [facility] 1 mg tablet 01-27 tablet by it y of 00:00: 04:59 mouth in [place] 00 :00 the [facility] [place] for 180 days. levETIRAcet 2022- No [id number] 1500mg Take 2 [facility] am 750 mg 01-27 tablets by ity of tablet 00:00: 04:59 mouth in [place] 00 :00 the [facility] morning Branch and 2 tablets in the evening. Do all this for 180 days. foLIC acid 2021-0 2022- No [id number] 1mg Take 1 [facility] 1 mg tablet 01-27 tablet by it y of 00:00: 04:59 mouth in [place] 00 :00 [facility] for 180 days. levETIRAcet 2021-0 2022- No [id number] 1500mg Take 2 [facility] am 750 mg 01-27 tablets by ity of tablet 00:00: 04:59 mouth in [place] 00 :00 [facility] and 2 tablets in the evening. Do all this for 180 days. foLIC acid 2021-0 2022- No [id number] 1mg Take 1 [facility] 1 mg tablet 01-27 tablet by it y of 00:00: 04:59 mouth in [place] 00 :00 [facility] for 180 days. levETIRAcet 2021-0 2022- No [id number] 1500mg Take 2 [facility] am 750 mg 01-27 tablets by ity of tablet 00:00: 04:59 mouth in [place] 00 :00 [facility] and 2 tablets in the evening. Do all this for 180 days. foLIC acid 2021-2022- No [id number] 1mg Take 1 [facility] 1 mg tablet 01-27 tablet by it y of 00:00: 04:59 mouth in [place] 00 :00 [facility] for 180 days. levETIRAcet 2021-0 2022- No [id number] 1500mg Take 2 [facility] am 750 mg 01-27 tablets by ity of tablet 00:00: 04:59 mouth in [place] 00 :00 [facility] and 2 tablets in the evening. Do all this for 180 days. foLIC acid 2021-0 2022- No [id number] 1mg Take 1 [facility] 1 mg tablet 01-27 tablet by it y of 00:00: 04:59 mouth in [place] 00 :00 [facility] for 180 days. levETIRAcet 2021-0 3- No [id number] 1500mg Take 2 [facility] am 750 mg 01-27 tablets by ity of tablet 00:00: 04:59 mouth in [place] 00 :00 [facility] and 2 tablets in the evening. Do all this for 180 days. foLIC acid 2022- No [id number] 1mg Take 1 [facility] 1 mg tablet 01-27 tablet by it y of 00:00: 04:59 mouth in [place] 00 :00 the [facility] [place] for 180 days. levETIRAcet 2022- No [id number] 1500mg Take 2 [facility] am 750 mg 01-27 tablets by ity of tablet 00:00: 04:59 mouth in [place] 00 :00 the [facility] [place] and 2 tablets in the evening. Do all this for 180 days. foLIC acid 2022- No [id number] 1mg Take 1 [facility] 1 mg tablet 01-27 tablet by it y of 00:00: 04:59 mouth in [place] 00 :00 the [facility] [place] for 180 days. levETIRAcet 2022- No [id number] 1500mg Take 2 [facility] am 750 mg 01-27 tablets by ity of tablet 00:00: 04:59 mouth in [place] 00 :00 [facility] and 2 tablets in the evening. Do all this for 180 days. foLIC acid 2022- No [id number] 1mg Take 1 [facility] 1 mg tablet 01-27 tablet by it y of 00:00: 04:59 mouth in [place] 00 :00 the [facility] [place] for 180 days. levETIRAcet 2022- No [id number] 1500mg Take 2 [facility] am 750 mg 01-27 tablets by ity of tablet 00:00: 04:59 mouth in [place] 00 :00 [facility] and 2 tablets in the evening. Do all this for 180 days. foLIC acid 2022- No [id number] 1mg Take 1 [facility] 1 mg tablet 01-27 tablet by it y of 00:00: 04:59 mouth in [place] 00 :00 the [facility] [place] for 180 days. levETIRAcet 2022- No [id number] 1500mg Take 2 [facility] am 750 mg 01-27 tablets by ity of tablet 00:00: 04:59 mouth in [place] 00 :00 [facility] and 2 tablets in the evening. Do all this for 180 days. foLIC acid 2022- No [id number] 1mg Take 1 [facility] 1 mg tablet 01-27 tablet by it y of 00:00: 04:59 mouth in [place] 00 :00 the [facility] [place] for 180 days. levETIRAcet 2022- No [id number] 1500mg Take 2 [facility] am 750 mg 01-27 tablets by ity of tablet 00:00: 04:59 mouth in [place] 00 :00 the [facility] and 2 tablets in the evening. Do all this for 180 days. foLIC acid 2022- No [id number] 1mg Take 1 [facility] 1 mg tablet 01-27 tablet by it y of 00:00: 04:59 mouth in [place] 00 :00 the [facility] [place] for 180 days. levETIRAcet 2021- No [id number] 1500mg Take 2 [facility] am 750 mg 01-2715 tablets by ity of tablet 00:00: 00:00 mouth in [place] 00 :00 the [facility] [place] and 2 tablets in the evening. Do all this for 180 days. foLIC acid 2021- No [id number] 1mg Take 1 [facility] 1 mg tablet 01-27 tablet by it y of 00:00: 00:00 mouth in [place] 00 :00 the [facility] [place] for 180 days. levETIRAcet 2021- No 750mg Take 750 [facility] am (KEPPRA) 8-19 08-19 mg by ity of 750 mg 15:54: 00:00 mouth in [place] tablet 35 :00 the [facility] [place] and 750 mg in the evening. levETIRAcet 2021-0 Yes [id number] 1000mg Take 1 [facility] am (KEPPRA) 8-19 tablet by ity of 1,000 mg 00:00: mouth in [place] tablet 00 [facility] and 1 tablet in the evening. levETIRAcet 2021-0 Yes [id number] 1000mg Take 1 [facility] am (KEPPRA) 8-19 tablet by ity of 1,000 mg 00:00: mouth in [place] tablet 00 [facility] and 1 tablet in the evening. levETIRAcet 2021-0 Yes [id number] 1000mg Take 1 [facility] am (KEPPRA) 8-19 tablet by ity of 1,000 mg 00:00: mouth in [place] tablet 00 [facility] and 1 tablet in the evening. levETIRAcet 2021- No [id number] 1000mg Take 1 [facility] am (KEPPRA) 12-24 tablet by it y of 1,000 mg 00:00: 00:00 [place] tablet 00 :00 the [facility] morning [facility] and 1 tablet in the evening. levETIRAcet 2021- No [id number] 1000mg Take 1 [facility] am (KEPPRA) 12-24 tablet by it y of 1,000 mg 00:00: 00:00 [place] 00 :00 the [facility] morning [facility] and 1 tablet in the evening. levETIRAcet 2021- No [id number] 1000mg Take 1 [facility] am (KEPPRA) 12-24 tablet by it y of 1,000 mg 00:00: 00:00 [place] tablet 00 :00 the [facility] morning [facility] and 1 tablet in the evening. SERTraline 2021-0 Yes [id number] 25mg Take 1 U nivers 25 mg 8-01 tablet by ity of tablet 00:00: mouth in [place] 00 the Medical morning. Branch SERTraline 0 Yes [id number] 25mg Take 1 U nivers 25 mg 8-01 tablet by ity of tablet 00:00: mouth in [place] 00 the Medical morning. Branch SERTraline 0 Yes [id number] 25mg Take 1 U nivers 25 mg 8-01 tablet by ity of tablet 00:00: mouth in [place] 00 the Medical morning. Branch SERTraline 0 Yes [id number] 25mg Take 1 U nivers 25 mg 8-01 tablet by ity of tablet 00:00: mouth in [place] 00 the Medical morning. Branch SERTraline 2021-0 Yes [id number] 25mg Take 1 U nivers 25 mg 8-01 tablet by ity of tablet 00:00: mouth in [place] 00 the Medical morning. Branch SERTraline 2021-0 Yes [id number] 25mg Take 1 U nivers 25 mg 8-01 tablet by ity of tablet 00:00: mouth in [place] 00 the Medical morning. Branch SERTraline 2021-0 Yes [id number] 25mg Take 1 U nivers 25 mg 8-01 tablet by ity of tablet 00:00: mouth in [place] 00 the Medical morning. Branch SERTraline 2021-0 Yes [id number] 25mg Take 1 U nivers 25 mg 8-01 tablet by ity of tablet 00:00: mouth in [place] 00 the Medical morning. Branch SERTraline 2021-0 Yes [id number] 25mg Take 1 U nivers 25 mg 8-01 tablet by ity of tablet 00:00: mouth in [place] 00 the Medical morning. Branch SERTraline 2021-0 Yes [id number] 25mg Take 1 U nivers 25 mg 8-01 tablet by ity of tablet 00:00: mouth in [place] 00 the Medical morning. Branch SERTraline 2021-0 Yes [id number] 25mg Take 1 U nivers 25 mg 8-01 tablet by ity of tablet 00:00: mouth in [place] 00 the Medical morning. Branch SERTraline 2021-0 Yes [id number] 25mg Take 1 U nivers 25 mg 8-01 tablet by ity of tablet 00:00: mouth in [place] 00 the Medical morning. Branch SERTraline 2021-0 2021- No [id number] 25mg Take 1 [facility] 25 mg 8-01 10-05 tablet by ity of tablet 00:00: 00:00 mouth in [place] 00 :00 the Medical morning. Branch SERTraline 2021-0 2- No [id number] 25mg Take 1 [facility] 25 mg 8-01 10-05 tablet by ity of tablet 00:00: 00:00 mouth in [place] 00 :00 the Medical morning. Branch ondansetron 2020-0 Yes [id number] 4mg Take 1 [facility] (ZOFRAN 6-23 tablet by ity of ODT) 4 mg 00:00: mouth [place] disintegrat 00 every 8 Medic al ing tablet (eight) Branch hours as needed for Nausea and Vomiting (N/V). ondansetron 2020-0 Yes [id number] 4mg Take 1 [facility] (ZOFRAN 6-23 tablet by ity of ODT) 4 mg 00:00: mouth [place] disintegrat 00 every 8 Medic al ing tablet (eight) Branch hours as needed for Nausea and Vomiting (N/V). ondansetron 2020-0 Yes [id number] 4mg Take 1 [facility] (ZOFRAN 6-23 tablet by ity of ODT) 4 mg 00:00: mouth [place] disintegrat 00 every 8 Medic al ing tablet (eight) Branch hours as needed for Nausea and Vomiting (N/V). ondansetron 2021-0 Yes [id number] 4mg Take 1 [facility] (ZOFRAN 6-23 tablet by ity of ODT) 4 mg 00:00: mouth [place] disintegrat 00 every 8 Medic al ing tablet (eight) Branch hours as needed for Nausea and Vomiting (N/V). ondansetron 2021-0 Yes [id number] 4mg Take 1 [facility] (ZOFRAN 6-23 tablet by ity of ODT) 4 mg 00:00: mouth [place] disintegrat 00 every 8 Medic al ing tablet (eight) Branch hours as needed for Nausea and Vomiting (N/V). ondansetron 2021-0 Yes [id number] 4mg Take 1 [facility] (ZOFRAN 6-23 tablet by ity of ODT) 4 mg 00:00: mouth [place] disintegrat 00 every 8 Medic al ing tablet (eight) Branch hours as needed for Nausea and Vomiting (N/V). ondansetron 2021-0 Yes [id number] 4mg Take 1 [facility] (ZOFRAN 6-23 tablet by ity of ODT) 4 mg 00:00: mouth [place] disintegrat 00 every 8 Medic al ing tablet (eight) Branch hours as needed for Nausea and Vomiting (N/V). ondansetron 2021-0 Yes [id number] 4mg Take 1 [facility] (ZOFRAN 6-23 tablet by ity of ODT) 4 mg 00:00: mouth [place] disintegrat 00 every 8 Medic al ing tablet (eight) Branch hours as needed for Nausea and Vomiting (N/V). ondansetron 2021-0 Yes [id number] 4mg Take 1 [facility] (ZOFRAN 6-23 tablet by ity of ODT) 4 mg 00:00: mouth [place] disintegrat 00 every 8 Medic al ing tablet (eight) Branch hours as needed for Nausea and Vomiting (N/V). ondansetron 2021-0 Yes [id number] 4mg Take 1 [facility] (ZOFRAN 6-23 tablet by ity of ODT) 4 mg 00:00: mouth [place] disintegrat 00 every 8 Medic al ing tablet (eight) Branch hours as needed for Nausea and Vomiting (N/V). ondansetron 2021-0 Yes [id number] 4mg Take 1 [facility] (ZOFRAN 6-23 tablet by ity of ODT) 4 mg 00:00: mouth [place] disintegrat 00 every 8 Medic al ing tablet (eight) Branch hours as needed for Nausea and Vomiting (N/V). ondansetron 2020-0 Yes [id number] 4mg Take 1 [facility] (ZOFRAN 6-23 tablet by ity of ODT) 4 mg 00:00: mouth [place] disintegrat 00 every 8 Medic al ing tablet (eight) Branch hours as needed for Nausea and Vomiting (N/V). ondansetron 2020-0 Yes [id number] 4mg Take 1 [facility] (ZOFRAN 6-23 tablet by ity of ODT) 4 mg 00:00: mouth [place] disintegrat 00 every 8 Medic al ing tablet (eight) Branch hours as needed for Nausea and Vomiting (N/V). ondansetron 2020-0 Yes [id number] 4mg Take 1 [facility] (ZOFRAN 6-23 tablet by ity of ODT) 4 mg 00:00: mouth [place] disintegrat 00 every 8 Medic al ing tablet (eight) Branch hours as needed for Nausea and Vomiting (N/V). ondansetron 2020-0 Yes [id number] 4mg Take 1 [facility] (ZOFRAN 6-23 tablet by ity of ODT) 4 mg 00:00: mouth [place] disintegrat 00 every 8 Medic al ing tablet (eight) Branch hours as needed for Nausea and Vomiting (N/V). ondansetron 2020-0 Yes [id number] 4mg Take 1 [facility] (ZOFRAN 6-23 tablet by ity of ODT) 4 mg 00:00: mouth [place] disintegrat 00 every 8 Medic al ing tablet (eight) Branch hours as needed for Nausea and Vomiting (N/V). ondansetron 2020-0 Yes [id number] 4mg Take 1 [facility] (ZOFRAN 6-23 tablet by ity of ODT) 4 mg 00:00: mouth [place] disintegrat 00 every 8 Medic al ing tablet (eight) Branch hours as needed for Nausea and Vomiting (N/V). ondansetron 2020-0 Yes [id number] 4mg Take 1 [facility] (ZOFRAN 6-23 tablet by ity of ODT) 4 mg 00:00: mouth [place] disintegrat 00 every 8 Medic al ing tablet (eight) Branch hours as needed for Nausea and Vomiting (N/V). ondansetron 2021-0 Yes [id number] 4mg Take 1 [facility] (ZOFRAN 6-23 tablet by ity of ODT) 4 mg 00:00: mouth [place] disintegrat 00 every 8 Medic al ing tablet (eight) Branch hours as needed for Nausea and Vomiting (N/V). ondansetron 2021-0 Yes [id number] 4mg Take 1 [facility] (ZOFRAN 6-23 tablet by ity of ODT) 4 mg 00:00: mouth [place] disintegrat 00 every 8 Medic al ing tablet (eight) Branch hours as needed for Nausea and Vomiting (N/V). ondansetron 2021-0 Yes [id number] 4mg Take 1 [facility] (ZOFRAN 6-23 tablet by ity of ODT) 4 mg 00:00: mouth [place] disintegrat 00 every 8 Medic al ing tablet (eight) Branch hours as needed for Nausea and Vomiting (N/V). ondansetron 1-0 Yes [id number] 4mg Take 1 [facility] (ZOFRAN 6-23 tablet by ity of ODT) 4 mg 00:00: mouth [place] disintegrat 00 every 8 Medic al ing tablet (eight) Branch hours as needed for Nausea and Vomiting (N/V). ondansetron 1-0 Yes [id number] 4mg Take 1 [facility] (ZOFRAN 6-23 tablet by ity of ODT) 4 mg 00:00: mouth [place] disintegrat 00 every 8 Medic al ing tablet (eight) Branch hours as needed for Nausea and Vomiting (N/V). ondansetron 2021-0 Yes [id number] 4mg Take 1 [facility] (ZOFRAN 6-23 tablet by ity of ODT) 4 mg 00:00: mouth [place] disintegrat 00 every 8 Medic al ing tablet (eight) Branch hours as needed for Nausea and Vomiting (N/V). ondansetron 2021-0 Yes [id number] 4mg Take 1 [facility] (ZOFRAN 6-23 tablet by ity of ODT) 4 mg 00:00: mouth [place] disintegrat 00 every 8 Medic al ing tablet (eight) Branch hours as needed for Nausea and Vomiting (N/V). ondansetron 2021-0 Yes [id number] 4mg Take 1 [facility] (ZOFRAN 6-23 tablet by ity of ODT) 4 mg 00:00: mouth [place] disintegrat 00 every 8 Medic al ing tablet (eight) Branch hours as needed for Nausea and Vomiting (N/V). ondansetron 2021-0 Yes [id number] 4mg Take 1 [facility] (ZOFRAN 6-23 tablet by ity of ODT) 4 mg 00:00: mouth [place] disintegrat 00 every 8 Medic al ing tablet (eight) Branch hours as needed for Nausea and Vomiting (N/V). ondansetron 202-0 Yes [id number] 4mg Take 1 [facility] (ZOFRAN 6-23 tablet by ity of ODT) 4 mg 00:00: mouth [place] disintegrat 00 every 8 Medic al ing tablet (eight) Branch hours as needed for Nausea and Vomiting (N/V). ondansetron 2020-0 Yes [id number] 4mg Take 1 [facility] (ZOFRAN 6-23 tablet by ity of ODT) 4 mg 00:00: mouth [place] disintegrat 00 every 8 Medic al ing tablet (eight) Branch hours as needed for Nausea and Vomiting (N/V). ondansetron 2020-0 Yes [id number] 4mg Take 1 [facility] (ZOFRAN 6-23 tablet by ity of ODT) 4 mg 00:00: mouth [place] disintegrat 00 every 8 Medic al ing tablet (eight) Branch hours as needed for Nausea and Vomiting (N/V). ondansetron 2020-0 Yes [id number] 4mg Take 1 [facility] (ZOFRAN 6-23 tablet by ity of ODT) 4 mg 00:00: mouth [place] disintegrat 00 every 8 Medic al ing tablet (eight) Branch hours as needed for Nausea and Vomiting (N/V). ondansetron 2021-0 Yes [id number] 4mg Take 1 [facility] (ZOFRAN 6-23 tablet by ity of ODT) 4 mg 00:00: mouth [place] disintegrat 00 every 8 Medic al ing tablet (eight) Branch hours as needed for Nausea and Vomiting (N/V). ondansetron 1-0 Yes [id number] 4mg Take 1 [facility] (ZOFRAN 6-23 tablet by ity of ODT) 4 mg 00:00: mouth [place] disintegrat 00 every 8 Medic al ing tablet (eight) Branch hours as needed for Nausea and Vomiting (N/V). ondansetron 2- No [id number] 4mg Take 1 [facility] (ZOFRAN 6-23 12-15 tablet by ity of ODT) 4 mg 00:00: 00:00 mouth [place] disintegrat 00 :00 every 8 Medic al ing tablet (eight) Branch hours as needed for Nausea and Vomiting (N/V). acetaminoph 2020-0 Yes [id number] 650mg Take 2 [facility] en 325 mg 6-20 tablets by ity of tablet 00:00: mouth [place] 00 every 6 Medical (six) Branch hours as needed for Pain (scale 1-3) or Temp > 38.5 C. acetaminoph 2020-0 Yes [id number] 650mg Take 2 [facility] en 325 mg 6-20 tablets by ity of tablet 00:00: mouth [place] 00 every 6 Medical (six) Branch hours as needed for Pain (scale 1-3) or Temp > 38.5 C. acetaminoph 2020-0 Yes [id number] 650mg Take 2 [facility] en 325 mg 6-20 tablets by ity of tablet 00:00: mouth [place] 00 every 6 Medical (six) Branch hours as needed for Pain (scale 1-3) or Temp > 38.5 C. acetaminoph 2020-0 Yes [id number] 650mg Take 2 [facility] en 325 mg 6-20 tablets by ity of tablet 00:00: mouth [place] 00 every 6 Medical (six) Branch hours as needed for Pain (scale 1-3) or Temp > 38.5 C. acetaminoph 2020-0 Yes [id number] 650mg Take 2 [facility] en 325 mg 6-20 tablets by ity of tablet 00:00: mouth [place] 00 every 6 Medical (six) Branch hours as needed for Pain (scale 1-3) or Temp > 38.5 C. acetaminoph 2020-0 Yes [id number] 650mg Take 2 [facility] en 325 mg 6-20 tablets by ity of tablet 00:00: mouth [place] 00 every 6 Medical (six) Branch hours as needed for Pain (scale 1-3) or Temp > 38.5 C. acetaminoph 2020-0 Yes [id number] 650mg Take 2 [facility] en 325 mg 6-20 tablets by ity of tablet 00:00: mouth [place] 00 every 6 Medical (six) Branch hours as needed for Pain (scale 1-3) or Temp > 38.5 C. acetaminoph 2021-0 Yes [id number] 650mg Take 2 [facility] en 325 mg 6-20 tablets by ity of tablet 00:00: mouth [place] 00 every 6 Medical (six) Branch hours as needed for Pain (scale 1-3) or Temp > 38.5 C. acetaminoph 2021-0 Yes [id number] 650mg Take 2 [facility] en 325 mg 6-20 tablets by ity of tablet 00:00: mouth [place] 00 every 6 Medical (six) Branch hours as needed for Pain (scale 1-3) or Temp > 38.5 C. acetaminoph 2021-0 Yes [id number] 650mg Take 2 [facility] en 325 mg 6-20 tablets by ity of tablet 00:00: mouth [place] 00 every 6 Medical (six) Branch hours as needed for Pain (scale 1-3) or Temp > 38.5 C. acetaminoph 2021-0 Yes [id number] 650mg Take 2 [facility] en 325 mg 6-20 tablets by ity of tablet 00:00: mouth [place] 00 every 6 Medical (six) Branch hours as needed for Pain (scale 1-3) or Temp > 38.5 C. acetaminoph 2021-0 Yes [id number] 650mg Take 2 [facility] en 325 mg 6-20 tablets by ity of tablet 00:00: mouth [place] 00 every 6 Medical (six) Branch hours as needed for Pain (scale 1-3) or Temp > 38.5 C. acetaminoph 2021-0 Yes [id number] 650mg Take 2 [facility] en 325 mg 6-20 tablets by ity of tablet 00:00: mouth [place] 00 every 6 Medical (six) Branch hours as needed for Pain (scale 1-3) or Temp > 38.5 C. acetaminoph 2021-0 Yes [id number] 650mg Take 2 [facility] en 325 mg 6-20 tablets by ity of tablet 00:00: mouth [place] 00 every 6 Medical (six) Branch hours as needed for Pain (scale 1-3) or Temp > 38.5 C. acetaminoph 2021-0 Yes [id number] 650mg Take 2 [facility] en 325 mg 6-20 tablets by ity of tablet 00:00: mouth [place] 00 every 6 Medical (six) Branch hours as needed for Pain (scale 1-3) or Temp > 38.5 C. acetaminoph 2021-0 Yes [id number] 650mg Take 2 [facility] en 325 mg 6-20 tablets by ity of tablet 00:00: mouth [place] 00 every 6 Medical (six) Branch hours as needed for Pain (scale 1-3) or Temp > 38.5 C. acetaminoph 2021-0 Yes [id number] 650mg Take 2 [facility] en 325 mg 6-20 tablets by ity of tablet 00:00: mouth [place] 00 every 6 Medical (six) Branch hours as needed for Pain (scale 1-3) or Temp > 38.5 C. acetaminoph 2021-0 Yes [id number] 650mg Take 2 [facility] en 325 mg 6-20 tablets by ity of tablet 00:00: mouth [place] 00 every 6 Medical (six) Branch hours as needed for Pain (scale 1-3) or Temp > 38.5 C. acetaminoph 2021-0 Yes [id number] 650mg Take 2 [facility] en 325 mg 6-20 tablets by ity of tablet 00:00: mouth [place] 00 every 6 Medical (six) Branch hours as needed for Pain (scale 1-3) or Temp > 38.5 C. acetaminoph 2021-0 Yes [id number] 650mg Take 2 [facility] 325 mg 6-20 tablets by ity of tablet 00:00: mouth [place] 00 every 6 Medical (six) Branch hours as needed for Pain (scale 1-3) or Temp > 38.5 C. acetaminoph 2021-0 Yes [id number] 650mg Take 2 [facility] 325 mg 6-20 tablets by ity of tablet 00:00: mouth [place] 00 every 6 Medical (six) Branch hours as needed for Pain (scale 1-3) or Temp > 38.5 C. acetaminoph 2021-0 Yes [id number] 650mg Take 2 [facility] 325 mg 6-20 tablets by ity of tablet 00:00: mouth [place] 00 every 6 Medical (six) Branch hours as needed for Pain (scale 1-3) or Temp > 38.5 C. acetaminoph 2021-0 Yes [id number] 650mg Take 2 [facility] 325 mg 6-20 tablets by ity of tablet 00:00: mouth [place] 00 every 6 Medical (six) Branch hours as needed for Pain (scale 1-3) or Temp > 38.5 C. acetaminoph 2021-0 Yes [id number] 650mg Take 2 [facility] 325 mg 6-20 tablets by ity of tablet 00:00: mouth [place] 00 every 6 Medical (six) Branch hours as needed for Pain (scale 1-3) or Temp > 38.5 C. acetaminoph 2021-0 Yes [id number] 650mg Take 2 [facility] 325 mg 6-20 tablets by ity of tablet 00:00: mouth [place] 00 every 6 Medical (six) Branch hours as needed for Pain (scale 1-3) or Temp > 38.5 C. acetaminoph 2021-0 Yes [id number] 650mg Take 2 [facility] 325 mg 6-20 tablets by ity of tablet 00:00: mouth [place] 00 every 6 Medical (six) Branch hours as needed for Pain (scale 1-3) or Temp > 38.5 C. acetaminoph 2021-0 Yes [id number] 650mg Take 2 [facility] 325 mg 6-20 tablets by ity of tablet 00:00: mouth [place] 00 every 6 Medical (six) Branch hours as needed for Pain (scale 1-3) or Temp > 38.5 C. acetaminoph 2021-0 Yes [id number] 650mg Take 2 [facility] 325 mg 6-20 tablets by ity of tablet 00:00: mouth [place] 00 every 6 Medical (six) Branch hours as needed for Pain (scale 1-3) or Temp > 38.5 C. acetaminoph 2021-0 Yes [id number] 650mg Take 2 [facility] 325 mg 6-20 tablets by ity of tablet 00:00: mouth [place] 00 every 6 Medical (six) Branch hours as needed for Pain (scale 1-3) or Temp > 38.5 C. acetaminoph 2021-0 Yes [id number] 650mg Take 2 [facility] 325 mg 6-20 tablets by ity of tablet 00:00: mouth [place] 00 every 6 Medical (six) Branch hours as needed for Pain (scale 1-3) or Temp > 38.5 C. acetaminoph 2021-0 Yes [id number] 650mg Take 2 [facility] 325 mg 6-20 tablets by ity of tablet 00:00: mouth [place] 00 every 6 Medical (six) Branch hours as needed for Pain (scale 1-3) or Temp > 38.5 C. acetaminoph 2020-0 Yes [id number] 650mg Take 2 [facility] 325 mg 6-20 tablets by ity of tablet 00:00: mouth [place] 00 every 6 Medical (six) Branch hours as needed for Pain (scale 1-3) or Temp > 38.5 C. acetaminoph 2020-0 Yes [id number] 650mg Take 2 [facility] 325 mg 6-20 tablets by ity of tablet 00:00: mouth [place] 00 every 6 Medical (six) Branch hours as needed for Pain (scale 1-3) or Temp > 38.5 C. acetaminoph 2020-0 2022- No [id number] 650mg Take 2 [facility] en 325 mg [...] y of Vaccine [facility] ID [id number] 00:00:00 [place] [facility] Y[facility] Influenza Virus 2022-02-22 [...] Unive rsity of VACCINE - (MODERNA) 00:00:00 [facility] SARS-COV-2 COVID-19 2020-06-05 Completed Unive rsity of VACCINE - (MODERNA) 00:00:00 [facility] SARS-COV-2 COVID-19 2020-06-05 Completed Unive rsity of VACCINE - (MODERNA) 00:00:00 [facility] SARS-COV-2 COVID-19 2020-06-05 Completed Unive rsity of VACCINE - (MODERNA) 00:00:00 [facility] SARS-COV-2 COVID-19 2020-06-05 Completed Unive rsity of VACCINE - (MODERNA) 00:00:00 [facility] SARS-COV-2 COVID-19 2020-06-05 Completed Unive rsity of VACCINE - (MODERNA) 00:00:00 [facility] SARS-COV-2 COVID-19 2020-06-05 Completed Unive rsity of VACCINE - (MODERNA) 00:00:00 [facility] SARS-COV-2 COVID-19 2020-06-05 Completed Unive rsity of VACCINE - (MODERNA) 00:00:00 [facility] SARS-COV-2 COVID-19 2020-06-05 Completed Unive rsity of VACCINE - (MODERNA) 00:00:00 [facility] SARS-COV-2 COVID-19 2020-06-05 Completed Unive rsity of VACCINE - (MODERNA) 00:00:00 [facility] SARS-COV-2 COVID-19 2020-06-05 Completed Unive rsity of VACCINE - (MODERNA) 00:00:00 [facility] SARS-COV-2 COVID-19 2020-06-05 Completed Unive rsity of VACCINE - (MODERNA) 00:00:00 [facility] SARS-COV-2 COVID-19 2020-06-05 Completed Unive rsity of VACCINE - (MODERNA) 00:00:00 [facility] SARS-COV-2 COVID-19 2020-06-05 Completed Unive rsity of VACCINE - (MODERNA) 00:00:00 [facility] SARS-COV-2 COVID-19 2020-06-05 Completed Unive rsity of VACCINE - (MODERNA) 00:00:00 [facility] SARS-COV-2 COVID-19 2020-06-05 Completed Unive rsity of VACCINE - (MODERNA) 00:00:00 [facility] SARS-COV-2 COVID-19 2020-06-05 Completed Unive rsity of VACCINE - (MODERNA) 00:00:00 [facility] SARS-COV-2 COVID-19 2020-06-05 Completed Unive rs[facility] of VACCINE - (MODERNA) 00:00:00 [facility] SARS-COV-2 COVID-19 2020-06-05 Completed Unive rsity of VACCINE - (MODERNA) 00:00:00 [facility] SARS-COV-2 COVID-19 2020-06-05 Completed Unive rsity of VACCINE - (MODERNA) 00:00:00 [facility] SARS-COV-2 COVID-19 2020-06-05 Completed Unive rsity of VACCINE - (MODERNA) 00:00:00 [facility] SARS-COV-2 COVID-19 2020-06-05 Completed Unive rsity of VACCINE - (MODERNA) 00:00:00 [facility] SARS-COV-2 COVID-19 2020-06-05 Completed Unive rsity of VACCINE - (MODERNA) 00:00:00 [facility] SARS-COV-2 COVID-19 2020-06-05 Completed Unive rsity of VACCINE - (MODERNA) 00:00:00 [facility] SARS-COV-2 COVID-19 2020-06-05 Completed Unive rsity of VACCINE - (MODERNA) 00:00:00 [facility] SARS-COV-2 COVID-19 2020-06-05 Completed Unive rsity of VACCINE - (MODERNA) 00:00:00 [facility] SARS-COV-2 COVID-19 2020-06-05 Completed Un[facility] rs[facility] of VACCINE - (MODERNA) 00:00:00 [facility] SARS-COV-2 COVID-19 2020-06-05 Completed Unive rsity of VACCINE - (MODERNA) 00:00:00 [facility] SARS-COV-2 COVID-19 2020-06-05 Completed Unive rsity of VACCINE - (MODERNA) 00:00:00 [facility] SARS-COV-2 COVID-19 2020-06-05 Completed Unive rsity of VACCINE - (MODERNA) 00:00:00 [facility] SARS-COV-2 COVID-19 2020-06-05 Completed Unive rs[facility] of VACCINE - (MODERNA) 00:00:00 [facility] SARS-COV-2 COVID-19 2020-06-05 Completed Unive rsity of VACCINE - (MODERNA) 00:00:00 [facility] SARS-COV-2 COVID-19 2020-05-06 Completed Unive rsity of VACCINE - (MODERNA) 00:00:00 [facility] SARS-COV-2 COVID-19 2020-05-06 Completed Unive rsity of VACCINE - (MODERNA) 00:00:00 [facility] SARS-COV-2 COVID-19 2020-05-06 Completed Unive rsity of VACCINE - (MODERNA) 00:00:00 [facility] SARS-COV-2 COVID-19 2020-05-06 Completed Unive rs[facility] of VACCINE - (MODERNA) 00:00:00 [facility] SARS-COV-2 COVID-19 2020-05-06 Completed Unive rsity of VACCINE - (MODERNA) 00:00:00 [facility] SARS-COV-2 COVID-19 2020-05-06 Completed Unive rsity of VACCINE - (MODERNA) 00:00:00 [facility] SARS-COV-2 COVID-19 2020-05-06 Completed Unive rs[facility] of VACCINE - (MODERNA) 00:00:00 [facility] SARS-COV-2 COVID-19 2020-05-06 Completed [facility] of VACCINE - (MODERNA) 00:00:00 [facility] SARS-COV-2 COVID-19 2020-05-06 Completed Unive rs[facility] of VACCINE - (MODERNA) 00:00:00 [facility] SARS-COV-2 COVID-19 2020-05-06 Completed Unive rs[facility] of VACCINE - (MODERNA) 00:00:00 [facility] SARS-COV-2 COVID-19 2020-05-06 Completed Unive rsity of VACCINE - (MODERNA) 00:00:00 [facility] SARS-COV-2 COVID-19 2020-05-06 Completed Unive rs[facility] of VACCINE - (MODERNA) 00:00:00 [facility] SARS-COV-2 COVID-19 2020-05-06 Completed Unive rs[facility] of VACCINE - (MODERNA) 00:00:00 [facility] SARS-COV-2 COVID-19 2020-05-06 Completed Unive rs[facility] of VACCINE - (MODERNA) 00:00:00 [facility] SARS-COV-2 COVID-19 2020-05-06 Completed Unive rs[facility] of VACCINE - (MODERNA) 00:00:00 [facility] SARS-COV-2 COVID-19 2020-05-06 Completed Unive rsity of VACCINE - (MODERNA) 00:00:00 [facility] SARS-COV-2 COVID-19 2020-05-06 Completed Unive rsity of VACCINE - (MODERNA) 00:00:00 [facility] SARS-COV-2 COVID-19 2020-05-06 Completed Unive rsity of VACCINE - (MODERNA) 00:00:00 [facility] SARS-COV-2 COVID-19 2020-05-06 Completed Unive rsity of VACCINE - (MODERNA) 00:00:00 [facility] SARS-COV-2 COVID-19 2020-05-06 Completed Un[facility] rs[facility] of VACCINE - (MODERNA) 00:00:00 [facility] SARS-COV-2 COVID-19 2020-05-06 Completed Un[facility] rs[facility] of VACCINE - (MODERNA) 00:00:00 [facility] SARS-COV-2 COVID-19 2020-05-06 Completed Un[facility] rs[facility] of VACCINE - (MODERNA) 00:00:00 [facility] SARS-COV-2 COVID-19 2020-05-06 Completed Unive rs[facility] of VACCINE - (MODERNA) 00:00:00 [facility] SARS-COV-2 COVID-19 2020-05-06 Completed Unive rs[facility] of VACCINE - (MODERNA) 00:00:00 [facility] SARS-COV-2 COVID-19 2020-05-06 Completed Unive rsity of VACCINE - (MODERNA) 00:00:00 [facility] SARS-COV-2 COVID-19 2020-05-06 Completed [facility] rs[facility] of VACCINE - (MODERNA) 00:00:00 [facility] SARS-COV-2 COVID-19 2020-05-06 Completed Unive rs[facility] of VACCINE - (MODERNA) 00:00:00 [facility] SARS-COV-2 COVID-19 2020-05-06 Completed Unive rsity of VACCINE - (MODERNA) 00:00:00 [facility] SARS-COV-2 COVID-19 2020-05-06 Completed Unive rs[facility] of VACCINE - (MODERNA) 00:00:00 [facility] SARS-COV-2 COVID-19 2020-05-06 Completed Unive rs[facility] of VACCINE - (MODERNA) 00:00:00 [facility] SARS-COV-2 COVID-19 2020-05-06 Completed Unive rs[facility] of VACCINE - (MODERNA) 00:00:00 [facility] SARS-COV-2 COVID-19 2020-05-06 Completed Un[facility] rsity of VACCINE - (MODERNA) 00:00:00 [facility] SARS-COV-2 COVID-19 2020-03-25 Completed Unive rsity of [...] Completed Unive rsity of MODERNA 0.25ML 00:00:00 [place] [facility] BOOSTER VACCINE Branch HEPATITIS A 2017-06-02 Completed [facility] 00:00:00 [facility] HPV9 2017-06-02 Completed [facility] of 00:00:00 [facility] Meningococcal 2017-06-02 Completed [facility] Polysaccharide 00:00:00 [place] [facility] (groups A, C, Y and Branc h W-135) conjugate vaccine (MCV4P) HEPATITIS A 2017-06-02 Completed [facility] of 00:00:00 [facility] HPV9 2017-06-02 Completed [facility] 00:00:00 [facility] Meningococcal 2017-06-02 Completed [facility] Polysaccharide 00:00:00 [place] [facility] (groups A, C, Y and Branc h W-135) conjugate vaccine (MCV4P) HEPATITIS A 2017-06-02 Completed [facility] of 00:00:00 [facility] HPV9 2017-06-02 Completed [facility] 00:00:00 [facility] Meningococcal 2017-06-02 Completed [facility] Polysaccharide 00:00:00 [place] [facility] (groups A, C, Y and Branc h W-135) conjugate vaccine (MCV4P) HEPATITIS A 2017-06-02 Completed [facility] of 00:00:00 [facility] HPV9 2017-06-02 Completed [facility] 00:00:00 [facility] Meningococcal 2017-06-02 Completed [facility] of Polysaccharide 00:00:00 [place] [facility] (groups A, C, Y and Branc h W-135) conjugate vaccine (MCV4P) HEPATITIS A 2017-06-02 Completed [facility] of 00:00:00 [facility] HPV9 2017-06-02 Completed [facility] 00:00:00 [facility] Meningococcal 2017-06-02 Completed [facility] Polysaccharide 00:00:00 [place] [facility] (groups A, C, Y and Branc h W-135) conjugate vaccine (MCV4P) HEPATITIS A 2017-06-02 Completed [facility] 00:00:00 [facility] HPV9 2017-06-02 Completed [facility] 00:00:00 [facility] Meningococcal 2017-06-02 Completed [facility] Polysaccharide 00:00:00 [place] [facility] (groups A, C, Y and Branc h W-135) conjugate vaccine (MCV4P) HEPATITIS A 2017-06-02 Completed [facility] 00:00:00 [facility] HPV9 2017-06-02 Completed [facility] 00:00:00 [facility] Meningococcal 2017-06-02 Completed [facility] Polysaccharide 00:00:00 [place] [facility] (groups A, C, Y and Branc h W-135) conjugate vaccine (MCV4P) HEPATITIS A 2017-06-02 Completed [facility] 00:00:00 [facility] HPV9 2017-06-02 Completed [facility] 00:00:00 [facility] Meningococcal 2017-06-02 Completed [facility] Polysaccharide 00:00:00 [place] [facility] (groups A, C, Y and Branc h W-135) conjugate vaccine (MCV4P) HEPATITIS A 2017-06-02 Completed [facility] 00:00:00 [facility] HPV9 2017-06-02 Completed [facility] 00:00:00 [facility] Meningococcal 2017-06-02 Completed [facility] Polysaccharide 00:00:00 [place] [facility] (groups A, C, Y and Branc h W-135) conjugate vaccine (MCV4P) HEPATITIS A 2017-06-02 Completed [facility] 00:00:00 [facility] HPV9 2017-06-02 Completed [facility] of 00:00:00 [facility] Meningococcal 2017-06-02 Completed [facility] of Polysaccharide 00:00:00 [place] [facility] (groups A, C, Y and Branc h W-135) conjugate vaccine (MCV4P) HEPATITIS A 2017-06-02 Completed [facility] 00:00:00 [facility] HPV9 2017-06-02 Completed [facility] 00:00:00 [facility] Meningococcal 2017-06-02 Completed University of Polysaccharide 00:00:00 [place] [facility] (groups A, C, Y and Branc h W-135) conjugate vaccine (MCV4P) HEPATITIS A 2017-06-02 Completed [facility] 00:00:00 [facility] HPV9 2017-06-02 Completed [facility] 00:00:00 [facility] Meningococcal 2017-06-02 Completed [facility] Polysaccharide 00:00:00 [place] [facility] (groups A, C, Y and Branc h W-135) conjugate vaccine (MCV4P) HEPATITIS A 2017-06-02 Completed [facility] 00:00:00 [facility] HPV9 2017-06-02 Completed [facility] 00:00:00 [facility] Meningococcal 2017-06-02 Completed [facility] Polysaccharide 00:00:00 [place] [facility] (groups A, C, Y and Branc h W-135) conjugate vaccine (MCV4P) HEPATITIS A 2017-06-02 Completed [facility] 00:00:00 [facility] HPV9 2017-06-02 Completed [facility] 00:00:00 [facility] Meningococcal 2017-06-02 Completed [facility] Polysaccharide 00:00:00 [place] [facility] (groups A, C, Y and Branc h W-135) conjugate vaccine (MCV4P) HEPATITIS A 2017-06-02 Completed [facility] 00:00:00 [facility] HPV9 2017-06-02 Completed [facility] 00:00:00 [facility] Meningococcal 2017-06-02 Completed [facility] Polysaccharide 00:00:00 [place] [facility] (groups A, C, Y and Branc h W-135) conjugate vaccine (MCV4P) HEPATITIS A 2017-06-02 Completed [facility] 00:00:00 [facility] HPV9 2017-06-02 Completed [facility] of 00:00:00 [facility] Meningococcal 2017-06-02 Completed [facility] of Polysaccharide 00:00:00 [place] [facility] (groups A, C, Y and Branc h W-135) conjugate vaccine (MCV4P) HEPATITIS A 2017-06-02 Completed [facility] 00:00:00 [facility] HPV9 2017-06-02 Completed [facility] 00:00:00 [facility] Meningococcal 2017-06-02 Completed [facility] of Polysaccharide 00:00:00 [place] [facility] (groups A, C, Y and Branc h W-135) conjugate vaccine (MCV4P) HEPATITIS A 2017-06-02 Completed [facility] 00:00:00 [facility] HPV9 2017-06-02 Completed [facility] of 00:00:00 [facility] Meningococcal 2017-06-02 Completed [facility] of Polysaccharide 00:00:00 [place] [facility] (groups A, C, Y and Branc h W-135) conjugate vaccine (MCV4P) HEPATITIS A 2017-06-02 Completed [facility] 00:00:00 [facility] HPV9 2017-06-02 Completed [facility] 00:00:00 [facility] Meningococcal 2017-06-02 Completed [facility] of Polysaccharide 00:00:00 [place] [facility] (groups A, C, Y and Branc h W-135) conjugate vaccine (MCV4P) HEPATITIS A 2017-06-02 Completed [facility] 00:00:00 [facility] HPV9 2017-06-02 Completed [facility] 00:00:00 [facility] Meningococcal 2017-06-02 Completed [facility] Polysaccharide 00:00:00 [place] [facility] (groups A, C, Y and Branc h W-135) conjugate vaccine (MCV4P) HEPATITIS A 2017-06-02 Completed [facility] 00:00:00 [facility] HPV9 2017-06-02 Completed [facility] 00:00:00 [facility] Meningococcal 2017-06-02 Completed [facility] of Polysaccharide 00:00:00 [place] [facility] (groups A, C, Y and Branc h W-135) conjugate vaccine (MCV4P) HEPATITIS A 2017-06-02 Completed [facility] 00:00:00 [facility] HPV9 2017-06-02 Completed [facility] 00:00:00 [facility] Meningococcal 2017-06-02 Completed [facility] of Polysaccharide 00:00:00 [place] [facility] (groups A, C, Y and Branc h W-135) conjugate vaccine (MCV4P) HEPATITIS A 2017-06-02 Completed [facility]00 [facility] 2017-06-02 Completed [facility] 00:00:00 [facility] Meningococcal 2017-06-02 Completed [facility] of Polysaccharide 00:00:00 [place] [facility] (groups A, C, Y and Branc h W-135) conjugate vaccine (MCV4P) HEPATITIS A 2017-06-02 Completed [facility] 00:00:00 [facility] HPV9 2017-06-02 Completed [facility] of 00:00:00 [facility] Meningococcal 2017-06-02 Completed [facility] of Polysaccharide 00:00:00 [place] [facility] (groups A, C, Y and Branc h W-135) conjugate vaccine (MCV4P) HEPATITIS A 2017-06-02 Completed [facility] 00:00:00 [facility] HPV9 2017-06-02 Completed [facility] 00:00:00 [facility] Meningococcal 2017-06-02 Completed [facility] of Polysaccharide 00:00:00 [place] [facility] (groups A, C, Y and Branc h W-135) conjugate vaccine (MCV4P) HEPATITIS A 2017-06-02 Completed [facility] 00:00:00 [facility] HPV9 2017-06-02 Completed [facility] 00:00:00 [facility] Meningococcal 2017-06-02 Completed [facility] of Polysaccharide 00:00:00 [place] [facility] (groups A, C, Y and Branc h W-135) conjugate vaccine (MCV4P) HEPATITIS A 2017-06-02 Completed [facility] 00:00:00 [facility] HPV9 2017-06-02 Completed [facility] 00:00:00 [facility] Meningococcal 2017-06-02 Completed [facility] of Polysaccharide 00:00:00 [place] [facility] (groups A, C, Y and Branc h W-135) conjugate vaccine (MCV4P) HEPATITIS A 2017-06-02 Completed [facility] 00:00:00 [facility] HPV9 2017-06-02 Completed [facility] 00:00:00 [facility] Meningococcal 2017-06-02 Completed University of Polysaccharide 00:00:00 [place] [facility] (groups A, C, Y and Branc h W-135) conjugate vaccine (MCV4P) HEPATITIS A 2017-06-02 Completed [facility] 00:00:00 [facility] HPV9 2017-06-02 Completed [facility] 00:00:00 [facility] Meningococcal 2017-06-02 Completed [facility] of Polysaccharide 00:00:00 [place] [facility] (groups A, C, Y and Branc h W-135) conjugate vaccine (MCV4P) HEPATITIS A 2017-06-02 Completed [facility] 00:00:00 [place] [facility] HPV9 2017-06-02 Completed [facility] 00:00:00 [facility] Meningococcal 2017-06-02 Completed [facility] of Polysaccharide 00:00:00 [place] [facility] (groups A, C, Y and Branc h W-135) conjugate vaccine (MCV4P) HEPATITIS A 2017-06-02 Completed [facility] 00:00:00 [place] [facility] HPV9 2017-06-02 Completed [facility] 00:00:00 [facility] Meningococcal 2017-06-02 Completed [facility] of Polysaccharide 00:00:00 [place] [facility] (groups A, C, Y and Branc h W-135) conjugate vaccine (MCV4P) HEPATITIS A 2017-06-02 Completed [facility] 00:00:00 [place] [facility] HPV9 2017-06-02 Completed [facility] 00:00:00 [facility] Meningococcal 2017-06-02 Completed [facility] of Polysaccharide 00:00:00 [place] [facility] (groups A, C, Y and Branc h W-135) conjugate vaccine (MCV4P) HPV 2011-12-29 Completed [facility] 00:00:00 [place] [facility] HPV 2011-12-29 Completed [facility] [...] Branch HPV 2011-12-29 Completed [facility] 00:00:00 [facility] HPV 2011-12-29 Completed [facility] of 00:00:00 [facility] HPV 2011-12-29 Completed [facility] 00:00:00 [facility] HPV 2011-12-29 Completed [facility] of 00:00:00 [facility] HPV 2011-12-29 Completed [facility] 00:00:00 [facility] HPV 2011-12-29 Completed [facility] of 00:00:00 [facility] HPV 2011-12-29 Completed [facility] 00:00:00 [facility] HPV 2011-12-29 Completed [facility] of 00:00:00 [facility] HPV 2011-12-29 Completed [facility] 00:00:00 [facility] HPV 2011-12-29 Completed [facility] of 00:00:00 [facility] HPV 2011-12-29 Completed [facility] 00:00:00 [facility] HPV 2011-12-29 Completed [facility] 00:00:00 [facility] HPV 2011-12-29 Completed [facility] 00:00:00 [facility] HPV 2011-12-29 Completed [facility] 00:00:00 [facility] HPV 2011-12-29 Completed [facility] 00:00:00 [facility] HPV 2011-12-29 Completed [facility] 00:00:00 [facility] HPV 2011-12-29 Completed [facility] 00:00:00 [facility] HEPATITIS A 2011-10-26 Completed [facility] 00:00:00 [facility] HPV 2011-10-26 Completed [facility] 00:00:00 [facility] Meningococcal 2011-10-26 Completed [facility] Polysaccharide 00:00:00 [place] [facility] (groups A, C, Y and Branc h W-135) conjugate vaccine (MCV4P) TDAP 2011-10-26 Completed [facility] 00:00:00 [facility] Varicella 2011-10-26 Completed University of (varivax)(chicken 00:00:00 [place] [facility] pox) [facility] HEPATITIS A 2011-10-26 Completed [facility] 00:00:00 [facility] HPV 2011-10-26 Completed [facility] 00:00:00 [facility] Meningococcal 2011-10-26 Completed [facility] Polysaccharide 00:00:00 [place] [facility] (groups A, C, Y and Branc h W-135) conjugate vaccine (MCV4P) TDAP 2011-10-26 Completed [facility] 00:00:00 [facility] Varicella 2011-10-26 Completed [facility] (varivax)(chicken 00:00:00 [place] [facility] pox) [facility] HEPATITIS A 2011-10-26 Completed [facility] 00:00:00 [facility] HPV 2011-10-26 Completed [facility] 00:00:00 [facility] Meningococcal 2011-10-26 Completed [facility] Polysaccharide 00:00:00 [facility] (groups A, C, Y and Branc h W-135) conjugate vaccine (MCV4P) TDAP 2011-10-26 Completed [facility] 00:00:00 [facility] Varicella 2011-10-26 Completed [facility] (varivax)(chicken 00:00:00 [facility] pox) Branch HEPATITIS A 2011-10-26 Completed [facility] 00:00:00 [facility] HPV 2011-10-26 Completed [facility] 00:00:00 [facility] Meningococcal 2011-10-26 Completed [facility] Polysaccharide 00:00:00 [facility] (groups A, C, Y and Branc h W-135) conjugate vaccine (MCV4P) TDAP 2011-10-26 Completed [facility] 00:00:00 [facility] Varicella 2011-10-26 Completed [facility] (varivax)(chicken 00:00:00 [facility] pox) [facility] HEPATITIS A 2011-10-26 Completed [facility] 00:00:00 [facility] HPV 2011-10-26 Completed [facility] 00:00:00 [facility] Meningococcal 2011-10-26 Completed [facility] Polysaccharide 00:00:00 [facility] (groups A, C, Y and Branc h W-135) conjugate vaccine (MCV4P) TDAP 2011-10-26 Completed [facility] 00:00:00 [facility] Varicella 2011-10-26 Completed [facility] (varivax)(chicken 00:00:00 [facility] pox) [facility] HEPATITIS A 2011-10-26 Completed [facility] 00:00:00 [facility] HPV 2011-10-26 Completed [facility] 00:00:00 [facility] Meningococcal 2011-10-26 Completed [facility] Polysaccharide 00:00:00 [facility] (groups A, C, Y and Branc h W-135) conjugate vaccine (MCV4P) TDAP 2011-10-26 Completed [facility] 00:00:00 [facility] Varicella 2011-10-26 Completed [facility] (varivax)(chicken 00:00:00 [place] [facility] pox) [facility] HEPATITIS A 2011-10-26 Completed [facility] 00:00:00 [facility] HPV 2011-10-26 Completed [facility] 00:00:00 [facility] Meningococcal 2011-10-26 Completed [facility] Polysaccharide 00:00:00 [facility] (groups A, C, Y and Branc h W-135) conjugate vaccine (MCV4P) TDAP 2011-10-26 Completed [facility] 00:00:00 [facility] Varicella 2011-10-26 Completed [facility] (varivax)(chicken 00:00:00 [facility] pox) Branch HEPATITIS A 2011-10-26 Completed [facility] 00:00:00 [facility] HPV 2011-10-26 Completed [facility] 00:00:00 [facility] Meningococcal 2011-10-26 Completed [facility] Polysaccharide 00:00:00 [facility] (groups A, C, Y and Branc h W-135) conjugate vaccine (MCV4P) TDAP 2011-10-26 Completed [facility] 00:00:00 [facility] Varicella 2011-10-26 Completed [facility] (varivax)(chicken 00:00:00 [facility] pox) Branch HEPATITIS A 2011-10-26 Completed [facility] 00:00:00 [facility] HPV 2011-10-26 Completed [facility] 00:00:00 [facility] Meningococcal 2011-10-26 Completed [facility] Polysaccharide 00:00:00 [facility] (groups A, C, Y and Branc h W-135) conjugate vaccine (MCV4P) TDAP 2011-10-26 Completed [facility] 00:00:00 [facility] Varicella 2011-10-26 Completed [facility] (varivax)(chicken 00:00:00 [facility] pox) Branch HEPATITIS A 2011-10-26 Completed [facility] 00:00:00 [facility] HPV 2011-10-26 Completed [facility] 00:00:00 [facility] Meningococcal 2011-10-26 Completed [facility] Polysaccharide 00:00:00 [facility] (groups A, C, Y and Branc h W-135) conjugate vaccine (MCV4P) TDAP 2011-10-26 Completed [facility] 00:00:00 [facility] Varicella 2011-10-26 Completed [facility] (varivax)(chicken 00:00:00 [place] [facility] pox) [facility] HEPATITIS A 2011-10-26 Completed [facility] 00:00:00 [facility] HPV 2011-10-26 Completed [facility] 00:00:00 [facility] Meningococcal 2011-10-26 Completed [facility] Polysaccharide 00:00:00 [facility] (groups A, C, Y and Branc h W-135) conjugate vaccine (MCV4P) TDAP 2011-10-26 Completed [facility] 00:00:00 [facility] Varicella 2011-10-26 Completed [facility] (varivax)(chicken 00:00:00 [facility] pox) Branch HEPATITIS A 2011-10-26 Completed [facility] 00:00:00 [facility] HPV 2011-10-26 Completed [facility] 00:00:00 [facility] Meningococcal 2011-10-26 Completed [facility] Polysaccharide 00:00:00 [facility] (groups A, C, Y and Branc h W-135) conjugate vaccine (MCV4P) TDAP 2011-10-26 Completed [facility] 00:00:00 [facility] Varicella 2011-10-26 Completed [facility] (varivax)(chicken 00:00:00 [facility] pox) Branch HEPATITIS A 2011-10-26 Completed [facility] 00:00:00 [facility] HPV 2011-10-26 Completed [facility] 00:00:00 [facility] Meningococcal 2011-10-26 Completed [facility] Polysaccharide 00:00:00 [facility] (groups A, C, Y and Branc h W-135) conjugate vaccine (MCV4P) TDAP 2011-10-26 Completed [facility] 00:00:00 [facility] Varicella 2011-10-26 Completed [facility] (varivax)(chicken 00:00:00 [facility] pox) [facility] HEPATITIS A 2011-10-26 Completed [facility] 00:00:00 [facility] HPV 2011-10-26 Completed [facility] 00:00:00 [facility] Meningococcal 2011-10-26 Completed [facility] Polysaccharide 00:00:00 [facility] (groups A, C, Y and Branc h W-135) conjugate vaccine (MCV4P) TDAP 2011-10-26 Completed [facility] 00:00:00 [facility] Varicella 2011-10-26 Completed [facility] (varivax)(chicken 00:00:00 [place] [facility] pox) [facility] HEPATITIS A 2011-10-26 Completed [facility] 00:00:00 [facility] HPV 2011-10-26 Completed [facility] 00:00:00 [facility] Meningococcal 2011-10-26 Completed [facility] Polysaccharide 00:00:00 [facility] (groups A, C, Y and Branc h W-135) conjugate vaccine (MCV4P) TDAP 2011-10-26 Completed [facility] 00:00:00 [facility] Varicella 2011-10-26 Completed [facility] (varivax)(chicken 00:00:00 [place] [facility] pox) Branch HEPATITIS A 2011-10-26 Completed [facility] 00:00:00 [facility] HPV 2011-10-26 Completed [facility] 00:00:00 [facility] Meningococcal 2011-10-26 Completed [facility] Polysaccharide 00:00:00 [facility] (groups A, C, Y and Branc h W-135) conjugate vaccine (MCV4P) TDAP 2011-10-26 Completed [facility] 00:00:00 [facility] Varicella 2011-10-26 Completed [facility] (varivax)(chicken 00:00:00 [facility] pox) Branch HEPATITIS A 2011-10-26 Completed [facility] 00:00:00 [facility] HPV 2011-10-26 Completed [facility] 00:00:00 [facility] Meningococcal 2011-10-26 Completed [facility] Polysaccharide 00:00:00 [facility] (groups A, C, Y and Branc h W-135) conjugate vaccine (MCV4P) TDAP 2011-10-26 Completed [facility] 00:00:00 [facility] Varicella 2011-10-26 Completed [facility] (varivax)(chicken 00:00:00 [place] [facility] pox) Branch HEPATITIS A 2011-10-26 Completed [facility] 00:00:00 [facility] HPV 2011-10-26 Completed [facility] 00:00:00 [facility] Meningococcal 2011-10-26 Completed [facility] Polysaccharide 00:00:00 [facility] (groups A, C, Y and Branc h W-135) conjugate vaccine (MCV4P) TDAP 2011-10-26 Completed [facility] 00:00:00 [facility] Varicella 2011-10-26 Completed [facility] (varivax)(chicken 00:00:00 [place] [facility] pox) Branch HEPATITIS A 2011-10-26 Completed [facility] 00:00:00 [facility] HPV 2011-10-26 Completed [facility] 00:00:00 [facility] Meningococcal 2011-10-26 Completed [facility] Polysaccharide 00:00:00 [facility] (groups A, C, Y and Branc h W-135) conjugate vaccine (MCV4P) TDAP 2011-10-26 Completed [facility] 00:00:00 [facility] Varicella 2011-10-26 Completed [facility] (varivax)(chicken 00:00:00 [place] [facility] pox) Branch HEPATITIS A 2011-10-26 Completed [facility] 00:00:00 [facility] HPV 2011-10-26 Completed [facility] 00:00:00 [facility] Meningococcal 2011-10-26 Completed [facility] Polysaccharide 00:00:00 [facility] (groups A, C, Y and Branc h W-135) conjugate vaccine (MCV4P) TDAP 2011-10-26 Completed [facility] 00:00:00 [facility] Varicella 2011-10-26 Completed [facility] (varivax)(chicken 00:00:00 [facility] pox) Branch HEPATITIS A 2011-10-26 Completed [facility] 00:00:00 [facility] HPV 2011-10-26 Completed [facility] 00:00:00 [facility] Meningococcal 2011-10-26 Completed [facility] Polysaccharide 00:00:00 [facility] (groups A, C, Y and Branc h W-135) conjugate vaccine (MCV4P) TDAP 2011-10-26 Completed [facility] 00:00:00 [facility] Varicella 2011-10-26 Completed [facility] (varivax)(chicken 00:00:00 [facility] pox) Branch HEPATITIS A 2011-10-26 Completed [facility] 00:00:00 [facility] HPV 2011-10-26 Completed [facility] 00:00:00 [facility] Meningococcal 2011-10-26 Completed [facility] Polysaccharide 00:00:00 [facility] (groups A, C, Y and Branc h W-135) conjugate vaccine (MCV4P) TDAP 2011-10-26 Completed [facility] 00:00:00 [facility] Varicella 2011-10-26 Completed [facility] (varivax)(chicken 00:00:00 [place] [facility] pox) Branch HEPATITIS A 2011-10-26 Completed [facility] 00:00:00 [facility] HPV 2011-10-26 Completed [facility] 00:00:00 [facility] Meningococcal 2011-10-26 Completed [facility] Polysaccharide 00:00:00 [facility] (groups A, C, Y and Branc h W-135) conjugate vaccine (MCV4P) TDAP 2011-10-26 Completed [facility] 00:00:00 [facility] Varicella 2011-10-26 Completed [facility] (varivax)(chicken 00:00:00 [facility] pox) Branch HEPATITIS A 2011-10-26 Completed [facility] 00:00:00 [facility] HPV 2011-10-26 Completed [facility] 00:00:00 [facility] Meningococcal 2011-10-26 Completed [facility] Polysaccharide 00:00:00 [facility] michael (groups A, C, Y and Branc h W-135) conjugate vaccine (MCV4P) TDAP 2011-10-26 Completed [facility] 00:00:00 [facility] Varicella 2011-10-26 Completed [facility] (varivax)(chicken 00:00:00 [place] [facility] pox) Branch HEPATITIS A 2011-10-26 Completed [facility] 00:00:00 [facility] HPV 2011-10-26 Completed [facility] 00:00:00 [facility] Meningococcal 2011-10-26 Completed [facility] Polysaccharide 00:00:00 [facility] michael (groups A, C, Y and Branc h W-135) conjugate vaccine (MCV4P) TDAP 2011-10-26 Completed [facility] 00:00:00 [facility] Varicella 2011-10-26 Completed [facility] (varivax)(chicken 00:00:00 [place] [facility] pox) Branch HEPATITIS A 2011-10-26 Completed [facility] 00:00:00 [facility] HPV 2011-10-26 Completed [facility] 00:00:00 [facility] Meningococcal 2011-10-26 Completed [facility] Polysaccharide 00:00:00 [facility] michael (groups A, C, Y and Branc h W-135) conjugate vaccine (MCV4P) TDAP 2011-10-26 Completed [facility] 00:00:00 [facility] Varicella 2011-10-26 Completed [facility] (varivax)(chicken 00:00:00 [place] [facility] pox) Branch HEPATITIS A 2011-10-26 Completed [facility] 00:00:00 [facility] HPV 2011-10-26 Completed [facility] 00:00:00 [facility] Meningococcal 2011-10-26 Completed [facility] Polysaccharide 00:00:00 [facility] (groups A, C, Y and Branc h W-135) conjugate vaccine (MCV4P) TDAP 2011-10-26 Completed [facility] 00:00:00 [facility] Varicella 2011-10-26 Completed [facility] (varivax)(chicken 00:00:00 [place] [facility] pox) Branch HEPATITIS A 2011-10-26 Completed [facility] 00:00:00 [facility] HPV 2011-10-26 Completed [facility] 00:00:00 [facility] Meningococcal 2011-10-26 Completed [facility] Polysaccharide 00:00:00 [facility] (groups A, C, Y and Branc h W-135) conjugate vaccine (MCV4P) TDAP 2011-10-26 Completed [facility] 00:00:00 [facility] Varicella 2011-10-26 Completed [facility] (varivax)(chicken 00:00:00 [facility] pox) Branch HEPATITIS A 2011-10-26 Completed [facility] 00:00:00 [facility] HPV 2011-10-26 Completed [facility] 00:00:00 [facility] Meningococcal 2011-10-26 Completed [facility] Polysaccharide 00:00:00 [facility] (groups A, C, Y and Branc h W-135) conjugate vaccine (MCV4P) TDAP 2011-10-26 Completed [facility] 00:00:00 [facility] Varicella 2011-10-26 Completed [facility] (varivax)(chicken 00:00:00 [place] [facility] pox) Branch HEPATITIS A 2011-10-26 Completed [facility] 00:00:00 [facility] HPV 2011-10-26 Completed [facility] 00:00:00 [facility] Meningococcal 2011-10-26 Completed [facility] Polysaccharide 00:00:00 [facility] (groups A, C, Y and Branc h W-135) conjugate vaccine (MCV4P) TDAP 2011-10-26 Completed [facility] 00:00:00 [facility] Varicella 2011-10-26 Completed [facility] (varivax)(chicken 00:00:00 [place] [facility] pox) Branch HEPATITIS A 2011-10-26 Completed [facility] 00:00:00 [facility] HPV 2011-10-26 Completed [facility] 00:00:00 [facility] Meningococcal 2011-10-26 Completed [facility] Polysaccharide 00:00:00 [facility] (groups A, C, Y and Branc h W-135) conjugate vaccine (MCV4P) TDAP 2011-10-26 Completed [facility] 00:00:00 [facility] Varicella 2011-10-26 Completed [facility] (varivax)(chicken 00:00:00 [place] [facility] pox) Branch HEPATITIS A 2011-10-26 Completed [facility] 00:00:00 [facility] HPV 2011-10-26 Completed [facility] 00:00:00 [facility] Meningococcal 2011-10-26 Completed [facility] Polysaccharide 00:00:00 [facility] michael (groups A, C, Y and Branc h W-135) conjugate vaccine (MCV4P) TDAP 2011-10-26 Completed [facility] 00:00:00 [facility] Varicella 2011-10-26 Completed [facility] (varivax)(chicken 00:00:00 [place] [facility] pox) [place] H1n1 Vaccine 2009-05-28 Completed [facility] f 00:00:00 [facility] H1n1 Vaccine 2009-05-28 Completed [facility] f 00:00:00 [facility] H1n1 Vaccine 2009-05-28 Completed [facility] f 00:00:00 [facility] H1n1 Vaccine 2009-05-28 Completed [facility] f 00:00:00 [facility] H1n1 Vaccine 2009-05-28 Completed [facility] f 00:00:00 [facility] H1n1 Vaccine 2009-05-28 Completed [facility] f 00:00:00 [facility] H1n1 Vaccine 2009-05-28 Completed [facility] f 00:00:00 [facility] H1n1 Vaccine 2009-05-28 Completed [facility] f 00:00:00 [facility] H1n1 Vaccine 2009-05-28 Completed [facility] f 00:00:00 [facility] H1n1 Vaccine 2009-05-28 Completed [facility] f 00:00:00 [facility] H1n1 Vaccine 2009-05-28 Completed [facility] f 00:00:00 [facility] H1n1 Vaccine 2009-05-28 Completed [facility] f 00:00:00 [facility] H1n1 Vaccine 2009-05-28 Completed [facility] f 00:00:00 [facility] H1n1 Vaccine 2009-05-28 Completed [facility] f 00:00:00 [facility] H1n1 Vaccine 2009-05-28 Completed [facility] f 00:00:00 [facility] H1n1 Vaccine 2009-05-28 Completed [facility] f 00:00:00 [facility] H1n1 Vaccine 2009-05-28 Completed [facility] f 00:00:00 [facility] H1n1 Vaccine 2009-05-28 Completed [facility] o f 00:00:00 [facility] H1n1 Vaccine 2009-05-28 Completed [facility] f 00:00:00 [facility] H1n1 Vaccine 2009-05-28 Completed [facility] f 00:00:00 [facility] H1n1 Vaccine 2009-05-28 Completed [facility] f 00:00:00 [facility] H1n1 Vaccine 2009-05-28 Completed [facility] f 00:00:00 [facility] H1n1 Vaccine 2009-05-28 Completed [facility] f 00:00:00 [facility] H1n1 Vaccine 2009-05-28 Completed [facility] f 00:00:00 [facility] H1n1 Vaccine 2009-05-28 Completed [facility] f 00:00:00 [facility] H1n1 Vaccine 2009-05-28 Completed [facility] f 00:00:00 [facility] H1n1 Vaccine 2009-05-28 Completed [facility] f 00:00:00 [facility] H1n1 Vaccine 2009-05-28 Completed [facility] f 00:00:00 [facility] H1n1 Vaccine 2009-05-28 Completed [facility] f 00:00:00 [facility] H1n1 Vaccine 2009-05-28 Completed [facility] f 00:00:00 [facility] H1n1 Vaccine 2009-05-28 Completed [facility] f 00:00:00 [facility] H1n1 Vaccine 2009-05-28 Completed [facility] f 00:00:00 [facility] Influenza Virus 2009-01-22 Completed [facility] y of Vaccine - Whole 00:00:00 [facility] Influenza Virus 2009-01-22 Completed [facility] y of Vaccine - Whole 00:00:00 [facility] Influenza Virus 2009-01-22 Completed [facility] y of Vaccine - Whole 00:00:00 [facility] Influenza Virus 2009-01-22 Completed [facility] y of Vaccine - Whole 00:00:00 [facility] Influenza Virus 2009-01-22 Completed [facility] y of Vaccine - Whole 00:00:00 [facility] Influenza Virus 2009-01-22 Completed [facility] y of Vaccine - Whole 00:00:00 [facility] Influenza Virus 2009-01-22 Completed [facility] y of Vaccine - Whole 00:00:00 [facility] Influenza Virus 2009-01-22 Completed [facility] y of Vaccine - Whole 00:00:00 [facility] Influenza Virus 2009-01-22 Completed [facility] y of Vaccine - Whole 00:00:00 [facility] Influenza Virus 2009-01-22 Completed [facility] y of Vaccine - Whole 00:00:00 [facility] Influenza Virus 2009-01-22 Completed [facility] y of Vaccine - Whole 00:00:00 [facility] Influenza Virus 2009-01-22 Completed [facility] y of Vaccine - Whole 00:00:00 [facility] Influenza Virus 2009-01-22 Completed [facility] y of Vaccine - Whole 00:00:00 [facility] Influenza Virus 2009-01-22 Completed [facility] y of Vaccine - Whole 00:00:00 [facility] Influenza Virus 2009-01-22 Completed [facility] y of Vaccine - Whole 00:00:00 [facility] Influenza Virus 2009-01-22 Completed [facility] y of Vaccine - Whole 00:00:00 [facility] Influenza Virus 2009-01-22 Completed [facility] y of Vaccine - Whole 00:00:00 [facility] Influenza Virus 2009-01-22 Completed [facility] y of Vaccine - Whole 00:00:00 [facility] Influenza Virus 2009-01-22 Completed [facility] y of Vaccine - Whole 00:00:00 [facility] Influenza Virus 2009-01-22 Completed [facility] y of Vaccine - Whole 00:00:00 [facility] Influenza Virus 2009-01-22 Completed [facility] y of Vaccine - Whole 00:00:00 [facility] Influenza Virus 2009-01-22 Completed [facility] y of Vaccine - Whole 00:00:00 [facility] Influenza Virus 2009-01-22 Completed [facility] y of Vaccine - Whole 00:00:00 [facility] Influenza Virus 2009-01-22 Completed [facility] y of Vaccine - Whole 00:00:00 [facility] Influenza Virus 2009-01-22 Completed [facility] y of Vaccine - Whole 00:00:00 [facility] Influenza Virus 2009-01-22 Completed [facility] y of Vaccine - Whole 00:00:00 [facility] Influenza Virus 2009-01-22 Completed [facility] y of Vaccine - Whole 00:00:00 [facility] Influenza Virus 2009-01-22 Completed [facility] y of Vaccine - Whole 00:00:00 [facility] Influenza Virus 2009-01-22 Completed [facility] y of Vaccine - Whole 00:00:00 [facility] Influenza Virus 2009-01-22 Completed [facility] y of Vaccine - Whole 00:00:00 [facility] Influenza Virus 2009-01-22 Completed [facility] y of Vaccine - Whole 00:00:00 [facility] Influenza Virus 2009-01-22 Completed [facility] y of Vaccine - Whole 00:00:00 [facility] DTaP, Unspecified 2003-06-24 Completed Univers ity of Formulation 00:00:00 [facility] MMR 2003-06-24 Completed [facility] 00:00:00 [facility] IPV 2003-06-24 Completed [facility] 00:00:00 [facility] DTaP, Unspecified 2003-06-24 Completed Univers [facility]y of Formulation 00:00:00 [facility] MMR 2003-06-24 Completed [facility] 00:00:00 [facility] IPV 2003-06-24 Completed [facility] 00:00:00 [facility] DTaP, Unspecified 2003-06-24 Completed Univers [facility]y of Formulation 00:00:00 [facility] MMR 2003-06-24 Completed [facility] 00:00:00 [facility] IPV 2003-06-24 Completed [facility] 00:00:00 [facility] DTaP, Unspecified 2003-06-24 Completed Univers [facility]y of Formulation 00:00:00 [facility] MMR 2003-06-24 Completed [facility] 00:00:00 [facility] IPV 2003-06-24 Completed [facility] 00:00:00 [facility] DTaP, Unspecified 2003-06-24 Completed Univers ity of Formulation 00:00:00 [facility] MMR 2003-06-24 Completed [facility] 00:00:00 [facility] IPV 2003-06-24 Completed [facility] 00:00:00 [facility] DTaP, Unspecified 2003-06-24 Completed Univers [facility]y of Formulation 00:00:00 [facility] MMR 2003-06-24 Completed [facility] 00:00:00 [facility] IPV 2003-06-24 Completed [facility] 00:00:00 [facility] DTaP, Unspecified 2003-06-24 Completed Univers ity of Formulation 00:00:00 [facility] MMR 2003-06-24 Completed [facility] 00:00:00 [facility] IPV 2003-06-24 Completed [facility] 00:00:00 [facility] DTaP, Unspecified 2003-06-24 Completed Univers ity of Formulation 00:00:00 [facility] MMR 2003-06-24 Completed [facility] 00:[facility]:00 [facility] [facility]24 Com[facility] 00[facility]00[facility]00 [facility] DTaP, Unspecified 2003-06-24 Completed [facility] Formulation 00:00:00 [facility] MMR 2003-06-24 Completed [facility] 00:00:00 [facility] IPV 2003-06-24 Completed [facility] 00:00:00 [facility] DTaP, Unspecified 2003-06-24 Completed [facility] Formulation 00:00:00 [facility] MMR 2003-06-24 Completed [facility] 00:00:00 [facility] IPV 2003-06-24 Completed [facility] 00:00:00 [facility] DTaP, Unspecified 2003-06-24 Completed [facility] Formulation 00:00:00 [facility] MMR 2003-06-24 Completed [facility] 00:00:00 [facility] IPV 2003-06-24 Completed [facility] 00:00:00 [facility] DTaP, Unspecified 2003-06-24 Completed [facility] Formulation 00:00:00 [facility] MMR 2003-06-24 Completed [facility] 00:00:00 [facility] IPV 2003-06-24 Completed [facility] 00:00:00 [facility] DTaP, Unspecified 2003-06-24 Completed [facility] Formulation 00:00:00 [facility] MMR 2003-06-24 Completed [facility] 00:00:00 [facility] IPV 2003-06-24 Completed [facility] 00:00:00 [facility] DTaP, Unspecified 2003-06-24 Completed [facility] Formulation 00:00:00 [facility] MMR 2003-06-24 Completed [facility] 00:00:00 [facility] IPV 2003-06-24 Completed [facility] 00:00:00 [facility] DTaP, Unspecified 2003-06-24 Completed [facility] Formulation 00:00:00 [facility] MMR 2003-06-24 Completed [facility] 00:00:00 [facility] IPV 2003-06-24 Completed [facility] 00:00:00 [facility] DTaP, Unspecified 2003-06-24 Completed [facility] Formulation 00:00:00 [facility] MMR 2003-06-24 Completed [facility] 00:00:00 [facility] IPV 2003-06-24 Completed [facility] 00:00:00 [facility] DTaP, Unspecified 2003-06-24 Completed [facility] Formulation 00:00:00 [facility] MMR 2003-06-24 Completed [facility] 00:00:00 [facility] IPV 2003-06-24 Completed [facility] 00:00:00 [facility] DTaP, Unspecified 2003-06-24 Completed [facility] Formulation 00:00:00 [facility] MMR 2003-06-24 Completed [facility] 00:00:00 [facility] IPV 2003-06-24 Completed [facility] 00:00:00 [facility] DTaP, Unspecified 2003-06-24 Completed [facility] Formulation 00:00:00 [facility] MMR 2003-06-24 Completed [facility] 00:00:00 [facility] IPV 2003-06-24 Completed [facility] 00:00:00 [facility] DTaP, Unspecified 2003-06-24 Completed [facility] Formulation 00:00:00 [facility] MMR 2003-06-24 Completed [facility] 00:00:00 [facility] IPV 2003-06-24 Completed [facility] 00:00:00 [facility] DTaP, Unspecified 2003-06-24 Completed [facility] Formulation 00:00:00 [facility] MMR 2003-06-24 Completed [facility] 00:00:00 [facility] IPV 2003-06-24 Completed [facility] 00:00:00 [facility] DTaP, Unspecified 2003-06-24 Completed [facility] Formulation 00:00:00 [facility] MMR 2003-06-24 Completed [facility] 00:00:00 [facility] IPV 2003-06-24 Completed [facility] 00:00:00 [facility] DTaP, Unspecified 2003-06-24 Completed [facility] Formulation 00:00:00 [facility] MMR 2003-06-24 Completed [facility] 00:00:00 [facility] IPV 2003-06-24 Completed [facility] 00:00:00 [facility] DTaP, Unspecified 2003-06-24 Completed [facility] Formulation 00:00:00 [facility] MMR 2003-06-24 Completed [facility] 00:00:00 [facility] IPV 2003-06-24 Completed [facility] 00:00:00 [facility] DTaP, Unspecified 2003-06-24 Completed [facility] Formulation 00:00:00 [facility] MMR 2003-06-24 Completed [facility] 00:00:00 [facility] IPV 2003-06-24 Completed [facility] 00:00:00 [facility] DTaP, Unspecified 2003-06-24 Completed [facility] Formulation 00:00:00 [facility] MMR 2003-06-24 Completed [facility] 00:00:00 [facility] IPV 2003-06-24 Completed [facility] 00:00:00 [facility] DTaP, Unspecified 2003-06-24 Completed [facility] Formulation 00:00:00 [facility] MMR 2003-06-24 Completed [facility] 00:00:00 [facility] IPV 2003-06-24 Completed [facility] 00:00:00 [facility] DTaP, Unspecified 2003-06-24 Completed [facility] Formulation 00:00:00 [facility] MMR 2003-06-24 Completed [facility] 00:00:00 [facility] IPV 2003-06-24 Completed [facility] 00:00:00 [facility] DTaP, Unspecified 2003-06-24 Completed [facility] Formulation 00:00:00 [facility] MMR 2003-06-24 Completed [facility] 00:00:00 [facility] IPV 2003-06-24 Completed [facility] 00:00:00 [facility] DTaP, Unspecified 2003-06-24 Completed [facility] Formulation 00:00:00 [facility] MMR 2003-06-24 Completed [facility] 00:00:00 [facility] IPV 2003-06-24 Completed [facility] 00:00:00 [facility] DTaP, Unspecified 2003-06-24 Completed [facility] Formulation 00:00:00 [facility] MMR 2003-06-24 Completed [facility] 00:00:00 [facility] IPV 2003-06-24 Completed [facility] 00:00:00 [facility] DTaP, Unspecified 2003-06-24 Completed [facility] Formulation 00:00:00 [facility] MMR 2003-06-24 Completed [facility] 00:00:00 [facility] IPV 2003-06-24 Completed [facility] 00:00:00 [facility] DTaP, Unspecified 2000-10-18 Completed [facility] Formulation 00:00:00 [facility] HIB 4 Dose Schedule 2000-10-18 Completed [facility] rs[facility] of 00:00:00 [facility] DTaP, Unspecified 2000-10-18 Completed [facility] [...] 2000-10-18 Completed [facility] Formulation 00:00:00 [facility] HIB 4 Dose Schedule 2000-10-18 Completed [facility]ive rs[facility] of 00:00:00 [facility] DTaP, Unspecified 2000-10-18 Completed [facility] Formulation 00:00:00 [facility] HIB 4 Dose Schedule 2000-10-18 Completed [facility]ive rs[facility] of 00:00:00 [facility] DTaP, Unspecified 2000-10-18 Completed [facility] Formulation 00:00:00 [facility] HIB 4 Dose Schedule 2000-10-18 Completed [facility] rs[facility] of 00:00:00 [facility] DTaP, Unspecified 2000-10-18 Completed [facility] Formulation 00:00:00 [facility] HIB 4 Dose Schedule 2000-10-18 Completed [facility] rs[facility] of 00:00:00 [facility] DTaP, Unspecified 2000-10-18 Completed [facility] Formulation 00:00:00 [facility] HIB 4 Dose Schedule 2000-10-18 Completed [facility]ive rs[facility] of 00:00:00 [facility] DTaP, Unspecified 2000-10-18 Completed [facility] Formulation 00:00:00 [facility] HIB 4 Dose Schedule 2000-10-18 Completed [facility]ive rs[facility] of 00:00:00 [facility] DTaP, Unspecified 2000-10-18 Completed [facility] Formulation 00:00:00 [facility] HIB 4 Dose Schedule 2000-10-18 Completed [facility] rs[facility] of 00:00:00 [facility] DTaP, Unspecified 2000-10-18 Completed [facility] Formulation 00:00:00 [facility] HIB 4 Dose Schedule 2000-10-18 Completed [facility] rs[facility] of 00:00:00 [facility] DTaP, Unspecified 2000-10-18 Completed [facility] Formulation 00:00:00 [facility] HIB 4 Dose Schedule 2000-10-18 Completed [facility]ive rsity of 00:00:00 [facility] DTaP, Unspecified 2000-10-18 Completed [facility] Formulation 00:00:00 [facility] HIB 4 Dose Schedule 2000-10-18 Completed [facility]ive rs[facility] of 00:00:00 [facility] DTaP, Unspecified 2000-10-18 Completed [facility] Formulation 00:00:00 [facility] HIB 4 Dose Schedule 2000-10-18 Completed [facility] rs[facility] of 00:00:00 [facility] DTaP, Unspecified 2000-10-18 Completed [facility] Formulation 00:00:00 [facility] HIB 4 Dose Schedule 2000-10-18 Completed [facility]ive rs[facility] of 00:00:00 [facility] DTaP, Unspecified 2000-10-18 Completed [facility] Formulation 00:00:00 [facility] HIB 4 Dose Schedule 2000-10-18 Completed Unive rsity of 00:00:00 [facility] DTaP, Unspecified 2000-10-18 Completed [facility] Formulation 00:00:00 [facility] HIB 4 Dose Schedule 2000-10-18 Completed [facility]ive rs[facility] of 00:00:00 [facility] DTaP, Unspecified 2000-10-18 Completed [facility] Formulation 00:00:00 [facility] HIB 4 Dose Schedule 2000-10-18 Completed [facility]ive rs[facility] of 00:00:00 [facility] DTaP, Unspecified 2000-10-18 Completed [facility] Formulation 00:00:00 [facility] HIB 4 Dose Schedule 2000-10-18 Completed [facility]ive rsity of 00:00:00 [facility] DTaP, Unspecified 2000-10-18 Completed [facility] Formulation 00:00:00 [facility] HIB 4 Dose Schedule 2000-10-18 Completed [facility]ive rs[facility] of 00:00:00 [facility] DTaP, Unspecified 2000-10-18 Completed [facility] Formulation 00:00:00 [facility] HIB 4 Dose Schedule 2000-10-18 Completed [facility]ive rsity of 00:00:00 [facility] DTaP, Unspecified 2000-10-18 Completed [facility] Formulation 00:00:00 [facility] HIB 4 Dose Schedule 2000-10-18 Completed [facility]ive rsity of 00:00:00 [facility] DTaP, Unspecified 2000-10-18 Completed [facility] Formulation 00:00:00 [facility] HIB 4 Dose Schedule 2000-10-18 Completed [facility]ive rsity of 00:00:00 [facility] DTaP, Unspecified 2000-10-18 Completed [facility] Formulation 00:00:00 [facility] HIB 4 Dose Schedule 2000-10-18 Completed [facility]ive rsity of 00:00:00 [facility] DTaP, Unspecified 2000-10-18 Completed [facility] Formulation 00:00:00 [facility] HIB 4 Dose Schedule 2000-10-18 Completed [facility]ive rsity of 00:00:00 [facility] DTaP, Unspecified 2000-10-18 Completed [facility] Formulation 00:00:00 [facility] HIB 4 Dose Schedule 2000-10-18 Completed [facility]ive rsity of 00:00:00 [facility] DTaP, Unspecified 2000-10-18 Completed [facility] Formulation 00:00:00 [facility] HIB 4 Dose Schedule 2000-10-18 Completed [facility]ive rsity of 00:00:00 [facility] DTaP, Unspecified 2000-10-18 Completed [facility] Formulation 00:00:00 [facility] HIB 4 Dose Schedule 2000-10-18 Completed [facility]ive rsity of 00:00:00 [facility] DTaP, Unspecified 2000-10-18 Completed [facility] Formulation 00:00:00 [facility] HIB 4 Dose Schedule 2000-10-18 Completed [facility] rs[facility] of 00:00:00 [facility] DTaP, Unspecified 2000-10-18 Completed [facility] Formulation 00:00:00 [facility] HIB 4 Dose Schedule 2000-10-18 Completed [facility] rs[facility] of 00:00:00 [facility] DTaP, Unspecified 2000-10-18 Completed [facility] Formulation 00:00:00 [facility] HIB 4 Dose Schedule 2000-10-18 Completed [facility]ive rsity of 00:00:00 [facility] MMR 2000-07-03 Completed [facility] 00:00:00 [facility] IPV 2000-07-03 Completed [facility] 00:00:00 [facility] Varicella 2000-07-03 Completed [facility] (varivax)(chicken 00:00:00 [place] [facility] MMR 2000-07-03 Completed [facility] 00:00:00 [facility] IPV 2000-07-03 Completed [facility] 00:00:00 [facility] Varicella 2000-07-03 Completed [facility] (varivax)(chicken 00:00:00 [place] [facility] MMR 2000-07-03 Completed [facility] 00:00:00 [facility] IPV 2000-07-03 Completed [facility] 00:00:00 [facility] Varicella 2000-07-03 Completed [facility] (varivax)(chicken 00:00:00 [place] [facility] MMR 2000-07-03 Completed [facility] 00:00:00 [facility] IPV 2000-07-03 Completed [facility] 00:00:00 [facility] Varicella 2000-07-03 Completed [facility] (varivax)(chicken 00:00:00 [place] [facility] MMR 2000-07-03 Completed [facility] 00:00:00 [facility] IPV 2000-07-03 Completed [facility] 00:00:00 [facility] Varicella 2000-07-03 Completed [facility] (varivax)(chicken 00:00:00 [place] [facility] MMR 2000-07-03 Completed [facility] 00:00:00 [facility] IPV 2000-07-03 Completed [facility] 00:00:00 [facility] Varicella 2000-07-03 Completed [facility] (varivax)(chicken 00:00:00 [place] [facility] MMR 2000-07-03 Completed [facility] 00:00:00 [facility] IPV 2000-07-03 Completed [facility] 00:00:00 [facility] Varicella 2000-07-03 Completed [facility] (varivax)(chicken 00:00:00 [place] [facility] MMR 2000-07-03 Completed [facility] 00:00:00 [facility] IPV 2000-07-03 Completed [facility] 00:00:00 [facility] Varicella 2000-07-03 Completed [facility] (varivax)(chicken 00:00:00 [place] [facility] MMR 2000-07-03 Completed [facility] 00:00:00 [facility] IPV 2000-07-03 Completed [facility] 00:00:00 [facility] Varicella 2000-07-03 Completed [facility] (varivax)(chicken 00:00:00 [place] [facility] MMR 2000-07-03 Completed [facility] 00:00:00 [facility] IPV 2000-07-03 Completed [facility] 00:00:00 [facility] Varicella 2000-07-03 Completed [facility] (varivax)(chicken 00:00:00 [place] [facility] MMR 2000-07-03 Completed [facility] 00:00:00 [facility] IPV 2000-07-03 Completed [facility] 00:00:00 [facility] Varicella 2000-07-03 Completed [facility] (varivax)(chicken 00:00:00 [place] [facility] MMR 2000-07-03 Completed [facility] 00:00:00 [facility] IPV 2000-07-03 Completed [facility] 00:00:00 [facility] Varicella 2000-07-03 Completed [facility] (varivax)(chicken 00:00:00 [place] [facility] MMR 2000-07-03 Completed [facility] 00:00:00 [facility] IPV 2000-07-03 Completed [facility] 00:00:00 [facility] Varicella 2000-07-03 Completed [facility] (varivax)(chicken 00:00:00 [place] [facility] MMR 2000-07-03 Completed [facility] 00:00:00 [facility] IPV 2000-07-03 Completed [facility] 00:00:00 [facility] Varicella 2000-07-03 Completed [facility] (varivax)(chicken 00:00:00 [place] [facility] MMR 2000-07-03 Completed [facility] 00:00:00 [facility] IPV 2000-07-03 Completed [facility] 00:00:00 [facility] Varicella 2000-07-03 Completed [facility] (varivax)(chicken 00:00:00 [place] [facility] MMR 2000-07-03 Completed [facility] 00:00:00 [facility] IPV 2000-07-03 Completed [facility] 00:00:00 [facility] Varicella 2000-07-03 Completed [facility] (varivax)(chicken 00:00:00 [place] [facility] MMR 2000-07-03 Completed [facility] 00:00:00 [facility] IPV 2000-07-03 Completed [facility] 00:00:00 [facility] Varicella 2000-07-03 Completed [facility] (varivax)(chicken 00:00:00 [place] [facility] MMR 2000-07-03 Completed [facility] 00:00:00 [facility] IPV 2000-07-03 Completed [facility] 00:00:00 [facility] Varicella 2000-07-03 Completed [facility] (varivax)(chicken 00:00:00 [place] [facility] MMR 2000-07-03 Completed [facility] 00:00:00 [facility] IPV 2000-07-03 Completed [facility] 00:00:00 [facility] Varicella 2000-07-03 Completed [facility] (varivax)(chicken 00:00:00 [place] [facility] MMR 2000-07-03 Completed [facility] 00:00:00 [facility] IPV 2000-07-03 Completed [facility] 00:00:00 [facility] Varicella 2000-07-03 Completed [facility] (varivax)(chicken 00:00:00 [place] [facility] MMR 2000-07-03 Completed [facility] 00:00:00 [facility] IPV 2000-07-03 Completed [facility] 00:00:00 [facility] Varicella 2000-07-03 Completed [facility] (varivax)(chicken 00:00:00 [place] [facility] MMR 2000-07-03 Completed [facility] 00:00:00 [facility] IPV 2000-07-03 Completed [facility] 00:00:00 [facility] Varicella 2000-07-03 Completed [facility] (varivax)(chicken 00:00:00 [place] [facility] MMR 2000-07-03 Completed [facility] 00:00:00 [facility] IPV 2000-07-03 Completed [facility] 00:00:00 [facility] Varicella 2000-07-03 Completed [facility] (varivax)(chicken 00:00:00 [place] [facility] MMR 2000-07-03 Completed [facility] 00:00:00 [facility] IPV 2000-07-03 Completed [facility] 00:00:00 [facility] Varicella 2000-07-03 Completed [facility] (varivax)(chicken 00:00:00 [place] [facility] MMR 2000-07-03 Completed [facility] 00:00:00 [facility] IPV 2000-07-03 Completed [facility] 00:00:00 [facility] Varicella 2000-07-03 Completed [facility] (varivax)(chicken 00:00:00 [place] [facility] MMR 2000-07-03 Completed [facility] 00:00:00 [facility] IPV 2000-07-03 Completed [facility] 00:00:00 [facility] Varicella 2000-07-03 Completed [facility] (varivax)(chicken 00:00:00 [place] [facility] MMR 2000-07-03 Completed [facility] 00:00:00 [facility] IPV 2000-07-03 Completed [facility] 00:00:00 [facility] Varicella 2000-07-03 Completed [facility] (varivax)(chicken 00:00:00 [place] [facility] MMR 2000-07-03 Completed [facility] 00:00:00 [facility] IPV 2000-07-03 Completed [facility] 00:00:00 [facility] Varicella 2000-07-03 Completed [facility] (varivax)(chicken 00:00:00 [place] [facility] MMR 2000-07-03 Completed [facility] 00:00:00 [facility] IPV 2000-07-03 Completed [facility] 00:00:00 [facility] Varicella 2000-07-03 Completed [facility] (varivax)(chicken 00:00:00 [place] [facility] MMR 2000-07-03 Completed [facility] 00:00:00 [facility] IPV 2000-07-03 Completed [facility] 00:00:00 [facility] Varicella 2000-07-03 Completed [facility] (varivax)(chicken 00:00:00 [place] [facility] MMR 2000-07-03 Completed [facility] 00:00:00 [facility] IPV 2000-07-03 Completed [facility] 00:00:00 [facility] Varicella 2000-07-03 Completed [facility] (varivax)(chicken 00:00:00 [place] [facility] MMR 2000-07-03 Completed [facility] 00:00:00 [facility] IPV 2000-07-03 Completed [facility] 00:00:00 [facility] Varicella 2000-07-03 Completed [facility] (varivax)(chicken 00:00:00 [place] [facility] DTaP, Unspecified 2000-03-21 Completed [facility] Formulation 00:00:00 [facility] Hep B, Adol or Pedi 2000-03-21 Completed Unive rsity of Dosage 00:00:00 [facility] HIB 4 Dose Schedule 2000-03-21 Completed [facility] rs[facility] of 00:00:00 [facility] DTaP, Unspecified 2000-03-21 Completed [facility] Formulation 00:00:00 [facility] Hep B, Adol or Pedi 2000-03-21 Completed [facility]ive rs[facility] of Dosage 00:00:00 [facility] HIB 4 Dose Schedule 2000-03-21 Completed [facility] of 00:00:00 [facility] DTaP, Unspecified 2000-03-21 Completed [facility] Formulation 00:00:00 [facility] Hep B, Adol or Pedi 2000-03-21 Completed [facility] rs[facility] of Dosage 00:00:00 [facility] HIB 4 Dose Schedule 2000-03-21 Completed [facility] of 00:00:00 [facility] DTaP, Unspecified 2000-03-21 Completed [facility] Formulation 00:00:00 [facility] Hep B, Adol or Pedi 2000-03-21 Completed [facility] of Dosage 00:00:00 [facility] HIB 4 Dose Schedule 2000-03-21 Completed [facility] 00:00:00 [facility] DTaP, Unspecified 2000-03-21 Completed [facility] Formulation 00:00:00 [facility] Hep B, Adol or Pedi 2000-03-21 Completed [facility] of Dosage 00:00:00 [facility] HIB 4 Dose Schedule 2000-03-21 Completed [facility] 00:00:00 [facility] DTaP, Unspecified 2000-03-21 Completed [facility] Formulation 00:00:00 [facility] Hep B, Adol or Pedi 2000-03-21 Completed [facility] of Dosage 00:00:00 [facility] HIB 4 Dose Schedule 2000-03-21 Completed [facility] 00:00:00 [facility] DTaP, Unspecified 2000-03-21 Completed [facility] Formulation 00:00:00 [facility] Hep B, Adol or Pedi 2000-03-21 Completed [facility] Dosage 00:00:00 [facility] [facility] HIB 4 Dose Schedule 2000-03-21 Completed [facility] 00:00:00 [facility] DTaP, Unspecified 2000-03-21 Completed [facility] Form[facility] 00:00:00 [facility] Hep B, Adol or Pedi 2000-03-21 Completed [facility] Dosage 00:00:00 [facility] HIB 4 Dose Schedule 2000-03-21 Completed [facility] 00:00:00 [facility] DTaP, Unspecified 2000-03-21 Completed [facility] 00:00:00 [facility] Hep B, Adol or Pedi 2000-03-21 Completed [facility] Dosage 00:00:00 [facility] HIB 4 Dose Schedule 2000-03-21 Completed [facility] 00:00:00 [facility] DTaP, Unspecified 2000-03-21 Completed [facility] 00:00:00 [facility] Hep B, Adol or Pedi 2000-03-21 Completed [facility] Dosage 00:00:00 [facility] HIB 4 Dose Schedule 2000-03-21 Completed [facility] 00:00:00 [facility] DTaP, Unspecified 2000-03-21 Completed [facility] 00:00:00 [facility] Hep B, Adol or Pedi 2000-03-21 Completed [facility] Dosage 00:00:00 [facility] HIB 4 Dose Schedule 2000-03-21 Completed [facility] 00:00:00 [facility] DTaP, Unspecified 2000-03-21 Completed [facility] Form[facility] 00:00:00 [facility] Hep B, Adol or Pedi 2000-03-21 Completed [facility] Dosage 00:00:00 [facility] HIB 4 Dose Schedule 2000-03-21 Completed [facility] 00:00:00 [facility] DTaP, Unspecified 2000-03-21 Completed [facility] Form[facility] 00:00:00 [facility] Hep B, Adol or Pedi 2000-03-21 Completed [facility] Dosage 00:00:00 [facility] HIB 4 Dose Schedule 2000-03-21 Completed [facility] 00:00:00 [facility] DTaP, Unspecified 2000-03-21 Completed [facility] Form[facility] 00:00:00 [facility] Hep B, Adol or Pedi 2000-03-21 Completed [facility] Dosage 00:00:00 [facility] HIB 4 Dose Schedule 2000-03-21 Completed [facility] 00:00:00 [facility] DTaP, Unspecified 2000-03-21 Completed [facility] 00:00:00 [facility] Hep B, Adol or Pedi 2000-03-21 Completed [facility] Dosage 00:00:00 [facility] HIB 4 Dose Schedule 2000-03-21 Completed [facility] 00:00:00 [facility] DTaP, Unspecified 2000-03-21 Completed [facility] 00:00:00 [facility] Hep B, Adol or Pedi 2000-03-21 Completed [facility] Dosage 00:00:00 [facility] HIB 4 Dose Schedule 2000-03-21 Completed [facility] 00:00:00 [facility] DTaP, Unspecified 2000-03-21 Completed [facility] Form[facility] 00:00:00 [facility] Hep B, Adol or Pedi 2000-03-21 Completed [facility] Dosage 00:00:00 [facility] HIB 4 Dose Schedule 2000-03-21 Completed [facility] 00:00:00 [facility] DTaP, Unspecified 2000-03-21 Completed [facility] 00:00:00 [facility] Hep B, Adol or Pedi 2000-03-21 Completed [facility] Dosage 00:00:00 [facility] HIB 4 Dose Schedule 2000-03-21 Completed [facility] 00:00:00 [facility] DTaP, Unspecified 2000-03-21 Completed [facility] 00:00:00 [facility] Hep B, Adol or Pedi 2000-03-21 Completed [facility] Dosage 00:00:00 [facility] HIB 4 Dose Schedule 2000-03-21 Completed [facility] 00:00:00 [facility] DTaP, Unspecified 2000-03-21 Completed [facility] Form[facility] 00:00:00 [facility] Hep B, Adol or Pedi 2000-03-21 Completed [facility] Dosage 00:00:00 [facility] HIB 4 Dose Schedule 2000-03-21 Completed [facility] 00:00:00 [facility] DTaP, Unspecified 2000-03-21 Completed [facility] 00:00:00 [facility] Hep B, Adol or Pedi 2000-03-21 Completed [facility] Dosage 00:00:00 [facility] HIB 4 Dose Schedule 2000-03-21 Completed [facility] 00:00:00 [facility] DTaP, Unspecified 2000-03-21 Completed [facility] 00:00:00 [facility] Hep B, Adol or Pedi 2000-03-21 Completed [facility] Dosage 00:00:00 [facility] HIB 4 Dose Schedule 2000-03-21 Completed [facility] 00:00:00 [facility] DTaP, Unspecified 2000-03-21 Completed [facility] Form[facility] 00:00:00 [facility] Hep B, Adol or Pedi 2000-03-21 Completed [facility] Dosage 00:00:00 [facility] HIB 4 Dose Schedule 2000-03-21 Completed [facility] 00:00:00 [facility] DTaP, Unspecified 2000-03-21 Completed [facility] Form[facility] 00:00:00 [facility] Hep B, Adol or Pedi 2000-03-21 Completed [facility] Dosage 00:00:00 [facility] HIB 4 Dose Schedule 2000-03-21 Completed [facility] 00:00:00 [facility] DTaP, Unspecified 2000-03-21 Completed [facility] Form[facility] 00:00:00 [facility] Hep B, Adol or Pedi 2000-03-21 Completed [facility] Dosage 00:00:00 [facility] HIB 4 Dose Schedule 2000-03-21 Completed [facility] 00:00:00 [facility] DTaP, Unspecified 2000-03-21 Completed [facility] Form[facility] 00:00:00 [facility] Hep B, Adol or Pedi 2000-03-21 Completed [facility] Dosage 00:00:00 [facility] HIB 4 Dose Schedule 2000-03-21 Completed [facility] 00:00:00 [facility] DTaP, Unspecified 2000-03-21 Completed [facility] Form[facility] 00:00:00 [facility] Hep B, Adol or Pedi 2000-03-21 Completed [facility] Dosage 00:00:00 [facility] HIB 4 Dose Schedule 2000-03-21 Completed [facility] 00:00:00 [facility] DTaP, Unspecified 2000-03-21 Completed [facility] Form[facility] 00:00:00 [facility] Hep B, Adol or Pedi 2000-03-21 Completed [facility] Dosage 00:00:00 [facility] HIB 4 Dose Schedule 2000-03-21 Completed [facility] 00:00:00 [facility] DTaP, Unspecified 2000-03-21 Completed [facility] Form[facility] 00:00:00 [facility] Hep B, Adol or Pedi 2000-03-21 Completed [facility] Dosage 00:00:00 [facility] HIB 4 Dose Schedule 2000-03-21 Completed [facility] 00:00:00 [facility] DTaP, Unspecified 2000-03-21 Completed [facility] 00:00:00 [facility] Hep B, Adol or Pedi 2000-03-21 Completed [facility] Dosage 00:00:00 [facility] HIB 4 Dose Schedule 2000-03-21 Completed [facility] 00:00:00 [facility] DTaP, Unspecified 2000-03-21 Completed [facility] 00:00:00 [facility] Hep B, Adol or Pedi 2000-03-21 Completed [facility] Dosage 00:00:00 [facility] HIB 4 Dose Schedule 2000-03-21 Completed [facility] 00:00:00 [facility] DTaP, Unspecified 2000-03-21 Completed [facility] Form[facility] 00:00:00 [facility] Hep B, Adol or Pedi 2000-03-21 Completed [facility] Dosage 00:00:00 [facility] HIB 4 Dose Schedule 2000-03-21 Completed [facility] 00:00:00 [facility] DTaP, Unspecified 1999 Completed [facility] Form[facility] 00:00:00 [facility] Hep B, Adol or Pedi 1999 Completed [facility] Dosage 00:00:00 [facility] HIB 4 Dose Schedule 1999 Completed [facility] 00:00:00 [facility] IPV 1999 Completed [facility] 00:00:00 [facility] DTaP, Unspecified 1999 Completed [facility] Form[facility] 00:00:00 [facility] Hep B, Adol or Pedi 1999 Completed [facility] Dosage 00:00:00 [facility] HIB 4 Dose Schedule 1999 Completed [facility] 00:00:00 [facility] IPV 1999 Completed [facility] 00:00:00 [facility] DTaP, Unspecified 1999 Completed [facility] Formulation 00:00:00 [facility] Hep B, Adol or Pedi 1999 Completed [facility] Dosage 00:00:00 [facility] HIB 4 Dose Schedule 1999 Completed [facility] 00:00:00 [facility] IPV 1999 Completed [facility] 00:00:00 [facility] DTaP, Unspecified 1999 Completed [facility] Formulation 00:00:00 [facility] Hep B, Adol or Pedi 1999 Completed [facility] Dosage 00:00:00 [facility] HIB 4 Dose Schedule 1999 Completed [facility] 00:00:00 [facility] IPV 1999 Completed [facility] 00:00:00 [facility] DTaP, Unspecified 1999 Completed [facility] Form[facility] 00:00:00 [facility] Hep B, Adol or Pedi 1999 Completed [facility] Dosage 00:00:00 [facility] HIB 4 Dose Schedule 1999 Completed [facility] 00:00:00 [facility] IPV 1999 Completed [facility] 00:00:00 [facility] DTaP, Unspecified 1999 Completed [facility] Formulation 00:00:00 [facility] Hep B, Adol or Pedi 1999 Completed [facility] Dosage 00:00:00 [facility] HIB 4 Dose Schedule 1999 Completed [facility] 00:00:00 [facility] IPV 1999 Completed [facility] 00:00:00 [facility] DTaP, Unspecified 1999 Completed [facility] Formulation 00:00:00 [facility] Hep B, Adol or Pedi 1999 Completed [facility] Dosage 00:00:00 [facility] HIB 4 Dose Schedule 1999 Completed [facility] 00:00:00 [facility] IPV 1999 Completed [facility] 00:00:00 [facility] DTaP, Unspecified 1999 Completed [facility] Formulation 00:00:00 [facility] Hep B, Adol or Pedi 1999 Completed [facility] Dosage 00:00:00 [facility] HIB 4 Dose Schedule 1999 Completed [facility] 00:00:00 [facility] IPV 1999 Completed [facility] 00:00:00 [facility] DTaP, Unspecified 1999 Completed [facility] Formulation 00:00:00 [facility] Hep B, Adol or Pedi 1999 Completed [facility] Dosage 00:00:00 [facility] HIB 4 Dose Schedule 1999 Completed [facility] 00:00:00 [facility] IPV 1999 Completed [facility] 00:00:00 [facility] DTaP, Unspecified 1999 Completed [facility] Formulation 00:00:00 [facility] Hep B, Adol or Pedi 1999 Completed [facility] Dosage 00:00:00 [facility] HIB 4 Dose Schedule 1999 Completed [facility] 00:00:00 [facility] IPV 1999 Completed [facility] 00:00:00 [facility] DTaP, Unspecified 1999 Completed [facility] Formulation 00:00:00 [facility] Hep B, Adol or Pedi 1999 Completed [facility] Dosage 00:00:00 [facility] HIB 4 Dose Schedule 1999 Completed [facility] 00:00:00 [facility] IPV 1999 Completed [facility] 00:00:00 [facility] DTaP, Unspecified 1999 Completed [facility] Formulation 00:00:00 [facility] Hep B, Adol or Pedi 1999 Completed [facility] Dosage 00:00:00 [facility] HIB 4 Dose Schedule 1999 Completed [facility] 00:00:00 [facility] IPV 1999 Completed [facility] 00:00:00 [facility] DTaP, Unspecified 1999 Completed [facility] Formulation 00:00:00 [facility] Hep B, Adol or Pedi 1999 Completed [facility] Dosage 00:00:00 [facility] HIB 4 Dose Schedule 1999 Completed [facility] 00:00:00 [facility] IPV 1999 Completed [facility] 00:00:00 [facility] DTaP, Unspecified 1999 Completed [facility] Formulation 00:00:00 [facility] Hep B, Adol or Pedi 1999 Completed [facility] Dosage 00:00:00 [facility] HIB 4 Dose Schedule 1999 Completed [facility] 00:00:00 [facility] IPV 1999 Completed [facility] 00:00:00 [facility] DTaP, Unspecified 1999 Completed [facility] Formulation 00:00:00 [facility] Hep B, Adol or Pedi 1999 Completed [facility] Dosage 00:00:00 [facility] HIB 4 Dose Schedule 1999 Completed [facility] 00:00:00 [facility] IPV 1999 Completed [facility] 00:00:00 [facility] DTaP, Unspecified 1999 Completed [facility] Formulation 00:00:00 [facility] Hep B, Adol or Pedi 1999 Completed [facility] Dosage 00:00:00 [facility] HIB 4 Dose Schedule 1999 Completed [facility] 00:00:00 [facility] IPV 1999 Completed [facility] 00:00:00 [facility] DTaP, Unspecified 1999 Completed [facility] Formulation 00:00:00 [facility] Hep B, Adol or Pedi 1999 Completed [facility] Dosage 00:00:00 [facility] HIB 4 Dose Schedule 1999 Completed [facility] 00:00:00 [facility] IPV 1999 Completed [facility] 00:00:00 [facility] DTaP, Unspecified 1999 Completed [facility] Formulation 00:00:00 [facility] Hep B, Adol or Pedi 1999 Completed [facility] Dosage 00:00:00 [facility] HIB 4 Dose Schedule 1999 Completed [facility] 00:00:00 [facility] IPV 1999 Completed [facility] 00:00:00 [facility] DTaP, Unspecified 1999 Completed [facility] Formulation 00:00:00 [facility] Hep B, Adol or Pedi 1999 Completed [facility] Dosage 00:00:00 [facility] HIB 4 Dose Schedule 1999 Completed [facility] 00:00:00 [facility] IPV 1999 Completed [facility] 00:00:00 [facility] DTaP, Unspecified 1999 Completed [facility] Formulation 00:00:00 [facility] Hep B, Adol or Pedi 1999 Completed [facility] Dosage 00:00:00 [facility] HIB 4 Dose Schedule 1999 Completed [facility] 00:00:00 [facility] IPV 1999 Completed [facility] 00:00:00 [facility] DTaP, Unspecified 1999 Completed [facility] Formulation 00:00:00 [facility] Hep B, Adol or Pedi 1999 Completed [facility] Dosage 00:00:00 [facility] HIB 4 Dose Schedule 1999 Completed [facility] 00:00:00 [facility] IPV 1999 Completed [facility] 00:00:00 [facility] DTaP, Unspecified 1999 Completed [facility] Formulation 00:00:00 [facility] Hep B, Adol or Pedi 1999 Completed [facility] Dosage 00:00:00 [facility] HIB 4 Dose Schedule 1999 Completed [facility] 00:00:00 [facility] IPV 1999 Completed [facility] 00:00:00 [facility] DTaP, Unspecified 1999 Completed [facility] Formulation 00:00:00 [facility] Hep B, Adol or Pedi 1999 Completed [facility] Dosage 00:00:00 [facility] HIB 4 Dose Schedule 1999 Completed [facility] 00:00:00 [facility] IPV 1999 Completed [facility] 00:00:00 [facility] DTaP, Unspecified 1999 Completed [facility] Formulation 00:00:00 [facility] Hep B, Adol or Pedi 1999 Completed [facility] Dosage 00:00:00 [facility] HIB 4 Dose Schedule 1999 Completed [facility] 00:00:00 [facility] IPV 1999 Completed [facility] 00:00:00 [facility] DTaP, Unspecified 1999 Completed [facility] Formulation 00:00:00 [facility] Hep B, Adol or Pedi 1999 Completed [facility] Dosage 00:00:00 [facility] HIB 4 Dose Schedule 1999 Completed [facility] 00:00:00 [facility] IPV 1999 Completed [facility] 00:00:00 [facility] DTaP, Unspecified 1999 Completed [facility] Formulation 00:00:00 [facility] Hep B, Adol or Pedi 1999 Completed [facility] Dosage 00:00:00 [facility] HIB 4 Dose Schedule 1999 Completed [facility] 00:00:00 [facility] IPV 1999 Completed [facility] 00:00:00 [facility] DTaP, Unspecified 1999 Completed [facility] Formulation 00:00:00 [facility] Hep B, Adol or Pedi 1999 Completed [facility] Dosage 00:00:00 [facility] HIB 4 Dose Schedule 1999 Completed [facility] 00:00:00 [facility] IPV 1999 Completed [facility] 00:00:00 [facility] DTaP, Unspecified 1999 Completed [facility] Formulation 00:00:00 [facility] Hep B, Adol or Pedi 1999 Completed [facility] Dosage 00:00:00 [facility] HIB 4 Dose Schedule 1999 Completed [facility] 00:00:00 [facility] IPV 1999 Completed [facility] 00:00:00 [facility] DTaP, Unspecified 1999 Completed [facility] Formulation 00:00:00 [facility] Hep B, Adol or Pedi 1999 Completed [facility] Dosage 00:00:00 [facility] HIB 4 Dose Schedule 1999 Completed [facility] 00:00:00 [facility] IPV 1999 Completed [facility] 00:00:00 [facility] DTaP, Unspecified 1999 Completed [facility] Formulation 00:00:00 [facility] Hep B, Adol or Pedi 1999 Completed [facility] Dosage 00:00:00 [facility] HIB 4 Dose Schedule 1999 Completed [facility] 00:00:00 [facility] IPV 1999 Completed [facility] 00:00:00 [facility] DTaP, Unspecified 1999 Completed [facility] Formulation 00:00:00 [facility] Hep B, Adol or Pedi 1999 Completed [facility] Dosage 00:00:00 [facility] HIB 4 Dose Schedule 1999 Completed [facility] 00:00:00 [facility] IPV 1999 Completed [facility] 00:00:00 [facility] DTaP, Unspecified 1999 Completed [facility] Formulation 00:00:00 [facility] Hep B, Adol or Pedi 1999 Completed [facility] Dosage 00:00:00 [facility] HIB 4 Dose Schedule 1999 Completed [facility] 00:00:00 [facility] IPV 1999 Completed [facility] 00:00:00 [facility] DTaP, Unspecified 1999 Completed [facility] Formulation 00:00:00 [facility] Hep B, Adol or Pedi 1999 Completed [facility] Dosage 00:00:00 [facility] HIB 4 Dose Schedule 1999 Completed [facility] 00:00:00 [facility] IPV 1999 Completed [facility] 00:00:00 [facility] DTaP, Unspecified 1999 Completed [facility] Formulation 00:00:00 [facility] Hep B, Adol or Pedi 1999 Completed [facility] Dosage 00:00:00 [facility] HIB 4 Dose Schedule 1999 Completed [facility] 00:00:00 [facility] IPV 1999 Completed [facility] 00:00:00 [facility] DTaP, Unspecified 1999 Completed [facility] Formulation 00:00:00 [facility] Hep B, Adol or Pedi 1999 Completed [facility] Dosage 00:00:00 [facility] HIB 4 Dose Schedule 1999 Completed [facility] 00:00:00 [facility] IPV 1999 Completed [facility] 00:00:00 [facility] DTaP, Unspecified 1999 Completed [facility] Form[facility] 00:00:00 [facility] Hep B, Adol or Pedi 1999 Completed [facility] Dosage 00:00:00 [facility] HIB 4 Dose Schedule 1999 Completed [facility] 00:00:00 [facility] IPV 1999 Completed [facility] 00:00:00 [facility] DTaP, Unspecified 1999 Completed [facility] Formulation 00:00:00 [facility] Hep B, Adol or Pedi 1999 Completed [facility] Dosage 00:00:00 [facility] HIB 4 Dose Schedule 1999 Completed [facility] 00:00:00 [facility] IPV 1999 Completed [facility] 00:00:00 [facility] DTaP, Unspecified 1999 Completed [facility] Formulation 00:00:00 [facility] Hep B, Adol or Pedi 1999 Completed [facility] Dosage 00:00:00 [facility] HIB 4 Dose Schedule 1999 Completed [facility] 00:00:00 [facility] IPV 1999 Completed [facility] 00:00:00 [facility] DTaP, Unspecified 1999 Completed Univers ity of Formulation 00:00:00 [facility] Hep B, Adol or Pedi 1999 Completed Unive rsity of Dosage 00:00:00 [facility] HIB 4 Dose Schedule 1999 Completed [facility] 00:00:00 [facility] IPV 1999 Completed [facility] 00:00:00 [facility] DTaP, Unspecified 1999 Completed [facility] ity [facility] Formulation 00:00:00 [facility] Hep B, Adol or Pedi 1999 Completed [facility]ity of Dosage 00:00:00 [facility] HIB 4 Dose Schedule 1999 Completed [facility]ity of 00:00:00 [facility] IPV 1999 Completed [facility] 00:00:00 [facility] DTaP, Unspecified 1999 Completed [facility] ity of Formulation 00:00:00 [facility] Hep B, Adol or Pedi 1999 Completed [facility]ive [facility]ity of Dosage 00:00:00 [facility] HIB 4 Dose Schedule 1999 Completed [facility]ity of 00:00:00 [facility] IPV 1999 Completed [facility] 00:00:00 [facility] DTaP, Unspecified 1999 Completed [facility] ity of Formulation 00:00:00 [facility] Hep B, Adol or Pedi 1999 Completed [facility]ive [facility]ity of Dosage 00:00:00 [facility] HIB 4 Dose Schedule 1999 Completed [facility] of 00:00:00 [facility] IPV 1999 Completed [facility] 00:00:00 [facility] DTaP, Unspecified 1999 Completed [facility] ity of Formulation 00:00:00 [facility] Hep B, Adol or Pedi 1999 Completed [facility]ive rsity of Dosage 00:00:00 [facility] HIB 4 Dose Schedule 1999 Completed [facility] of 00:00:00 [facility] IPV 1999 Completed [facility] 00:00:00 [facility] DTaP, Unspecified 1999 Completed [facility] ity of Formulation 00:00:00 [facility] Hep B, Adol or Pedi 1999 Completed [facility]ive rsity of Dosage 00:00:00 [facility] HIB 4 Dose Schedule 1999 Completed [facility] of 00:00:00 [facility] IPV 1999 Completed [facility] 00:00:00 [facility] DTaP, Unspecified 1999 Completed [facility] it[facility] of Formulation 00:00:00 [facility] Hep B, Adol or Pedi 1999 Completed [facility]ity of Dosage 00:00:00 [facility] HIB 4 Dose Schedule 1999 Completed [facility] of 00:00:00 [facility] IPV 1999 Completed [facility] 00:00:00 [facility] DTaP, Unspecified 1999 Completed [facility] ity of Formulation 00:00:00 [facility] Hep B, Adol or Pedi 1999 Completed [facility]ive [facility]ity of Dosage 00:00:00 [facility] HIB 4 Dose Schedule 1999 Completed [facility]ity of 00:00:00 [facility] IPV 1999 Completed [facility] 00:00:00 [facility] DTaP, Unspecified 1999 Completed [facility] ity of Formulation 00:00:00 [facility] Hep B, Adol or Pedi 1999 Completed [facility]ity of Dosage 00:00:00 [facility] HIB 4 Dose Schedule 1999 Completed [facility] of 00:00:00 [facility] IPV 1999 Completed [facility] 00:00:00 [facility] DTaP, Unspecified 1999 Completed [facility] of Formulation 00:00:00 [facility] Hep B, Adol or Pedi 1999 Completed [facility] of Dosage 00:00:00 [facility] HIB 4 Dose Schedule 1999 Completed [facility] of 00:00:00 [facility] IPV 1999 Completed [facility] 00:00:00 [facility] DTaP, Unspecified 1999 Completed [facility] ity of Formulation 00:00:00 [facility] Hep B, Adol or Pedi 1999 Completed [facility] of Dosage 00:00:00 [facility] HIB 4 Dose Schedule 1999 Completed [facility] of 00:00:00 [facility] IPV 1999 Completed [facility] 00:00:00 [facility] DTaP, Unspecified 1999 Completed [facility] ity of Formulation 00:00:00 [facility] Hep B, Adol or Pedi 1999 Completed [facility] of Dosage 00:00:00 [facility] HIB 4 Dose Schedule 1999 Completed [facility] of 00:00:00 [facility] IPV 1999 Completed [facility] 00:00:00 [facility] DTaP, Unspecified 1999 Completed [facility] of Formulation 00:00:00 [facility] Hep B, Adol or Pedi 1999 Completed [facility]ive [facility]ity of Dosage 00:00:00 [facility] HIB 4 Dose Schedule 1999 Completed [facility] of 00:00:00 [facility] IPV 1999 Completed [facility] 00:00:00 [facility] DTaP, Unspecified 1999 Completed [facility] ity of Formulation 00:00:00 [facility] Hep B, Adol or Pedi 1999 Completed [facility]ity of Dosage 00:00:00 [facility] HIB 4 Dose Schedule 1999 Completed [facility] of 00:00:00 [facility] IPV 1999 Completed [facility] 00:00:00 [facility] DTaP, Unspecified 1999 Completed [facility] ity of Formulation 00:00:00 [facility] Hep B, Adol or Pedi 1999 Completed [facility]ive rsity of Dosage 00:00:00 [facility] HIB 4 Dose Schedule 1999 Completed [facility] of 00:00:00 [facility] IPV 1999 Completed [facility] 00:00:00 [facility] DTaP, Unspecified 1999 Completed [facility] ity of Formulation 00:00:00 [facility] Hep B, Adol or Pedi 1999 Completed [facility]ive [facility]ity of Dosage 00:00:00 [facility] HIB 4 Dose Schedule 1999 Completed [facility]ity of 00:00:00 [facility] IPV 1999 Completed [facility] 00:00:00 [facility] DTaP, Unspecified 1999 Completed [facility] ity of Formulation 00:00:00 [facility] Hep B, Adol or Pedi 1999 Completed [facility]ive [facility]ity of Dosage 00:00:00 [facility] HIB 4 Dose Schedule 1999 Completed [facility] of 00:00:00 [facility] IPV 1999 Completed [facility] 00:00:00 [facility] DTaP, Unspecified 1999 Completed [facility]y of Formulation 00:00:00 [facility] Hep B, Adol or Pedi 1999 Completed [facility] of Dosage 00:00:00 [facility] HIB 4 Dose Schedule 1999 Completed [facility]ity of 00:00:00 [facility] IPV 1999 Completed [facility] 00:00:00 [facility] DTaP, Unspecified 1999 Completed [facility]y of Formulation 00:00:00 [facility] Hep B, Adol or Pedi 1999 Completed [facility] of Dosage 00:00:00 [facility] HIB 4 Dose Schedule 1999 Completed [facility] of 00:00:00 [facility] IPV 1999 Completed [facility] 00:00:00 [facility] DTaP, Unspecified 1999 Completed [facility] ity of Formulation 00:00:00 [facility] Hep B, Adol or Pedi 1999 Completed [facility] of Dosage 00:00:00 [facility] HIB 4 Dose Schedule 1999 Completed [facility] of 00:00:00 [facility] IPV 1999 Completed [facility] 00:00:00 [facility] DTaP, Unspecified 1999 Completed [facility]y of Formulation 00:00:00 [facility] Hep B, Adol or Pedi 1999 Completed [facility] of Dosage 00:00:00 [facility] HIB 4 Dose Schedule 1999 Completed [facility] of 00:00:00 [facility] IPV 1999 Completed [facility] 00:00:00 [facility] DTaP, Unspecified 1999 Completed [facility] ity of Formulation 00:00:00 [facility] Hep B, Adol or Pedi 1999 Completed [facility] of Dosage 00:00:00 [facility] HIB 4 Dose Schedule 1999 Completed [facility] of 00:00:00 [facility] IPV 1999 Completed [facility] 00:00:00 [facility] DTaP, Unspecified 1999 Completed [facility] of Formulation 00:00:00 [facility] Hep B, Adol or Pedi 1999 Completed [facility] of Dosage 00:00:00 [facility] HIB 4 Dose Schedule 1999 Completed [facility] of 00:00:00 [facility] IPV 1999 Completed [facility] 00:00:00 [facility] DTaP, Unspecified 1999 Completed [facility] ity of Formulation 00:00:00 [facility] Hep B, Adol or Pedi 1999 Completed [facility]ive [facility]ity of Dosage 00:00:00 [facility] HIB 4 Dose Schedule 1999 Completed [facility] of 00:00:00 [facility] IPV 1999 Completed [facility] 00:00:00 [facility] DTaP, Unspecified 1999 Completed [facility] ity of Formulation 00:00:00 [facility] Hep B, Adol or Pedi 1999 Completed [facility] of Dosage 00:00:00 [facility] HIB 4 Dose Schedule 1999 Completed [facility] of 00:00:00 [facility] IPV 1999 Completed [facility] 00:00:00 [facility] DTaP, Unspecified 1999 Completed [facility] ity of Formulation 00:00:00 [facility] Hep B, Adol or Pedi 1999 Completed [facility]ive rsity of Dosage 00:00:00 [facility] HIB 4 Dose Schedule 1999 Completed [facility] of 00:00:00 [facility] IPV 1999 Completed [facility] 00:00:00 [facility] Hep B, Adol or Pedi [...] 1999 Completed [facility] of Dosage 00:00:00 [facility] Hep B, Adol or Pedi 1999 Completed [facility] of Dosage 00:00:00 [facility] Hep B, Adol or Pedi 1999 Completed [facility] of Dosage 00:00:00 [facility] Hep B, Adol or Pedi 1999 Completed [facility]ive [facility] of Dosage 00:00:00 [facility] Vital Signs Vital Name Observation Time Observation Value Comments Source BMI 2022-10-08 01:10:00 22.39 kg/m2 [facility]i ty of [facility] Oxygen saturation in 2022-10-08 01:10:00 98 /min University of Arterial blood by [facility] Pulse oximetry Branch Systolic blood 2022-10-08 01:10:00 119 mm[Hg] Univer sity of pressure [facility] Diastolic blood 2022-10-08 01:10:00 69 mm[Hg] Unive rsity of pressure [facility] Heart rate 2022-10-08 01:10:00 111 /min [facility]i ty of [facility] Body temperature 2022-10-08 01:10:00 36.83 Jenni Univ ers[facility] of [facility] Respiratory rate 2022-10-08 01:10:00 17 /min Univ ersity of [facility] Body weight 2022-10-08 01:10:00 53.751 kg [facility] Systolic blood 2022-09-16 13:15:00 114 mm[Hg] Univer sity of pressure [facility] Diastolic blood 2022-09-16 13:15:00 69 mm[Hg] Unive rsity of pressure [facility] Heart rate 2022-09-16 13:15:00 81 /min [facility] of [facility] Body temperature 2022-09-16 13:15:00 37.17 Jenni Univ ers[facility] of [facility] Respiratory rate 2022-09-16 13:15:00 18 /min Univ ersity of [facility] Body height 2022-09-16 13:15:00 154.9 cm Universi [facility] of [facility] Body weight 2022-09-16 13:15:00 52.617 kg [facility] of [facility] BMI 2022-09-16 13:15:00 21.92 kg/m2 [facility] Systolic blood 2022-09-13 18:27:00 139 mm[Hg] Univer [facility]ity of pressure [facility] Diastolic blood 2022-09-13 18:27:00 67 mm[Hg] [facility]ive [facility] of pressure [facility] Heart rate 2022-09-13 18:27:00 70 /min [facility] Respiratory rate 2022-09-13 18:27:00 18 /min [facility] ers[facility] of [facility] Body height 2022-09-13 18:27:00 154.9 cm [facility] Body weight 2022-09-13 18:27:00 53.252 kg [facility] BMI 2022-09-13 18:27:00 22.18 kg/m2 [facility] Oxygen saturation in 2022-09-13 18:27:00 99 /min University of Arterial blood by [facility] Pulse oximetry Branch Systolic blood 2022-08-26 21:19:19 116 mm[Hg] Univer sity of pressure [facility] Diastolic blood 2022-08-26 21:19:19 75 mm[Hg] Unive rsity of pressure [facility] Heart rate 2022-08-26 21:19:19 79 /min [facility] Respiratory rate 2022-08-26 21:19:19 23 /min [facility] of [facility] Oxygen saturation in 2022-08-26 21:19:19 100 /min [facility] of Arterial blood by [facility] Pulse oxim[facility] Body temperature 2022-08-26 18:23:00 36.78 Jenni [facility] Body height 2022-08-26 18:23:00 160 cm [facility] Body weight 2022-08-26 18:23:00 54.432 kg [facility] BMI 2022-08-26 18:23:00 21.26 kg/m2 [facility] Systolic blood 2022-08-12 19:31:00 104 mm[Hg] Univer [facility]ity of pressure [facility] Diastolic blood 2022-08-12 19:31:00 71 mm[Hg] Unive rsity of pressure [facility] Heart rate 2022-08-12 19:31:00 73 /min [facility] Respiratory rate 2022-08-12 19:31:00 18 /min [facility] Body height 2022-08-12 19:31:00 154.9 cm [facility] Body weight 2022-08-12 19:31:00 54.432 kg [facility] BMI 2022-08-12 19:31:00 22.67 kg/m2 [facility] Oxygen saturation in 2022-08-12 19:31:00 97 /min [facility] of Arterial blood by [facility] Pulse oxim[facility] Systolic blood 2022-07-01 19:01:00 131 mm[Hg] Univer [facility]ity of pressure [facility] Diastolic blood 2022-07-01 19:01:00 77 mm[Hg] Unive rs[facility] of pressure [facility] Heart rate 2022-07-01 19:01:00 74 /min [facility] Respiratory rate 2022-07-01 19:01:00 18 /min [facility] Body weight 2022-07-01 19:01:00 53.071 kg [facility] BMI 2022-07-01 19:01:00 22.11 kg/m2 [facility] Oxygen saturation in 2022-07-01 19:01:00 98 /min [facility] of Arterial blood by [facility] Pulse oximetry [facility] Systolic blood 2022-04-28 20:26:00 122 mm[Hg] Univer [facility]ity of pressure [facility] Diastolic blood 2022-04-28 20:26:00 73 mm[Hg] Unive rsity of pressure [facility] Heart rate 2022-04-28 20:26:00 92 /min [facility] Body temperature 2022-04-28 20:26:00 36.56 Jenni [facility] Respiratory rate 2022-04-28 20:26:00 18 /min [facility] of [facility] Body height 2022-04-28 20:26:00 154.9 cm [facility] Body weight 2022-04-28 20:26:00 54.432 kg [facility] BMI 2022-04-28 20:26:00 22.67 kg/m2 [facility] Oxygen saturation in 2022-04-28 20:26:00 99 /min [facility] Systolic blood 2022-04-21 23:35:00 113 mm[Hg] Univer [facility]ity of pressure [facility] Diastolic blood 2022-04-21 23:35:00 73 mm[Hg] Unive rsity of pressure [facility] Heart rate 2022-04-21 23:35:00 93 /min [facility] Body temperature 2022-04-21 23:35:00 37.61 Jenni [facility] Respiratory rate 2022-04-21 23:35:00 18 /min [facility] Body height 2022-04-21 23:35:00 154.9 cm [facility] Body weight 2022-04-21 23:35:00 52.617 kg [facility] BMI 2022-04-21 23:35:00 21.92 kg/m2 [facility] Oxygen saturation in 2022-04-21 23:35:00 98 /min [facility] Arterial blood by [facility] [employer] [facility] P[facility] Systolic blood 2022-04-21 13:32:00 111 mm[Hg] Univer [facility]ity of pressure [facility] Diastolic blood 2022-04-21 13:32:00 55 mm[Hg] Unive rsity of pressure [facility] Heart rate 2022-04-21 13:32:00 73 /min [facility] Body temperature 2022-04-21 13:32:00 36.72 Jenni [facility] Respiratory rate 2022-04-21 13:32:00 16 /min [facility] Oxygen saturation in 2022-04-21 13:32:00 100 /min [facility] Arterial blood by [facility] [employer] [facility] Body height 2022-04-18 14:40:00 154.9 cm [facility] Body weight 2022-04-18 14:40:00 52.164 kg [facility] BMI 2022-04-18 14:40:00 21.73 kg/m2 [facility] Systolic blood 2022-03-21 21:18:00 104 [...] 99 /min [facility] of Arterial blood by [facility]ichael Pulse oximetry Branch Body [...] 99 /min [facility] of Arterial blood by [facility] Pulse oximetry Branch Systolic blood 2022-02-09 16:17:00 [...] 99 /min [facility] of Arterial blood by [facility] Pulse oxim[facility] Branch Systolic blood 2022-01-31 21:12:00 110 mm[Hg] Univer sity of pressure [facility] Diastolic blood 2022-01-31 21:12:00 59 mm[Hg] Unive rsity of pressure [facility] Heart rate 2022-01-31 21:12:00 79 /min [facility] Body temperature 2022-01-31 21:12:00 36.33 Jenni [facility] Respiratory rate 2022-01-31 21:12:00 16 /min [facility] Oxygen saturation in 2022-01-31 21:12:00 97 /min [facility] of Arterial blood by [facility] P[facility] Body height 2022-01-31 02:57:00 154.9 cm [facility] Body weight 2022-01-31 02:57:00 54.432 kg [facility] BMI 2022-01-31 02:57:00 22.67 kg/m2 [facility] Systolic blood 2022-01-28 18:12:00 120 mm[Hg] Univer [facility]ity of pressure [facility] Diastolic blood 2022-01-28 18:12:00 77 mm[Hg] Unive rsity of pressure [facility] Heart rate 2022-01-28 18:12:00 82 /min [facility] Respiratory rate 2022-01-28 18:12:00 17 /min [facility] Oxygen saturation in 2022-01-28 18:12:00 99 /min [facility] of Arterial blood by [facility] Pulse oxim[facility] Body temperature 2022-01-28 18:07:00 36.61 Jenni [facility] Body height 2022-01-28 18:07:00 154.9 cm [facility] Body weight 2022-01-28 18:07:00 54.568 kg [facility] BMI 2022-01-28 18:07:00 22.73 kg/m2 [facility] Systolic blood 2022-01-27 19:39:00 120 mm[Hg] Univer [facility]ity of pressure [facility] Diastolic blood 2022-01-27 19:39:00 75 mm[Hg] Unive rsity of pressure [facility] Heart rate 2022-01-27 19:39:00 78 /min [facility] Body temperature 2022-01-27 19:39:00 36.78 Jenni [facility] Respiratory rate 2022-01-27 19:39:00 18 /min [facility] Body height 2022-01-27 19:39:00 154.9 cm [facility] Body weight 2022-01-27 19:39:00 54.795 kg [facility] BMI 2022-01-27 19:39:00 22.82 kg/m2 [facility] Oxygen saturation in 2022-01-27 19:39:00 98 /min [facility] Systolic blood 2021-12-24 20:21:00 107 mm[Hg] Univer [facility]ity of pressure [facility] Diastolic blood 2021-12-24 20:21:00 66 mm[Hg] Unive rsity of pressure [facility] Heart rate 2021-12-24 20:21:00 73 /min [facility] Body temperature 2021-12-24 20:21:00 36.83 Jenni [facility] Body height 2021-12-24 20:21:00 154.9 cm [facility] Body weight 2021-12-24 20:21:00 54.522 kg [facility] BMI 2021-12-24 20:21:00 22.71 kg/m2 [facility] Oxygen saturation in 2021-12-24 20:21:00 100 /min [facility] Systolic blood 2022-10-08 01:10:00 119 mm[Hg] Univer [facility]ity of pressure [facility] Diastolic blood 2022-10-08 01:10:00 69 mm[Hg] [facility] of pressure [facility] Heart rate 2022-10-08 01:10:00 111 /min [facility] Body temperature 2022-10-08 01:10:00 36.83 Jenni [facility] Respiratory rate 2022-10-08 01:10:00 17 /min [facility] Body weight 2022-10-08 01:10:00 53.751 kg [facility] BMI 2022-10-08 01:10:00 22.39 kg/m2 [facility] Oxygen saturation in 2022-10-08 01:10:00 98 /min [facility] of Arterial blood by [employer] [facility]ichael P[facility] Body height 2022-09-16 13:15:00 154.9 cm [facility] Systolic blood 2022-08-26 21:19:19 116 mm[Hg] Univer [facility]ity of pressure [facility] Diastolic blood 2022-08-26 21:19:19 75 mm[Hg] Unive [facility]ity of pressure [facility] Heart rate 2022-08-26 21:19:19 79 /min [facility] Respiratory rate 2022-08-26 21:19:19 23 /min [facility] Oxygen saturation in 2022-08-26 21:19:19 100 /min [facility] Arterial blood by [place] [employer] [facility] Body temperature 2022-08-26 18:23:00 36.78 Jenni [facility] Body height 2022-08-26 18:23:00 160 cm [facility] Body weight 2022-08-26 18:23:00 54.432 kg [facility] BMI 2022-08-26 18:23:00 21.26 kg/m2 [facility] Systolic blood 2022-05-26 20:08:00 123 mm[Hg] Univer [facility]ity of pressure [facility] Diastolic blood 2022-05-26 20:08:00 71 mm[Hg] Unive rsity of pressure [facility] Heart rate 2022-05-26 20:08:00 89 /min [facility] Respiratory rate 2022-05-26 20:08:00 18 /min [facility] Body height 2022-05-26 20:08:00 154.9 cm [facility] Body weight 2022-05-26 20:08:[address] [facility] BMI 2022-05-26 20:08:00 22.05 kg/m2 [facility] Body temperature 2022-04-28 20:26:00 36.56 Jenni [facility] Oxygen saturation in 2022-04-28 20:26:00 99 /min [facility] blood by [facility] Pulse oximetry Branch Procedures Procedure Date / Time Performing Source Performed Clinician MR CERVICAL SPINE WO CONTRAST 2022-09-30 Thalia Nichole [facility] 16:26:00 [facility] MR CERVICAL SPINE WO CONTRAST 2022-09-30 Thalia Nichole [facility] 16:26:00 [facility] MR BRAIN WO CONTRAST 2022-09-30 Dionisio Thalia C [facility] 15:50:00 [facility] MR BRAIN WO CONTRAST 2022-09-30 Thalia Nichole [facility] 15:50:00 [facility] GC & CHLAMYDIA AMPLIFIED 2022-09-16 Adum, [facility] ASSAY 13:30:00 [facility] TRICHOMONAS AMPLIFIED ASSAY 2022-09-16 Adum, [facility] 13:30:00 [facility] CONSENT FOR CONTRACEPTION 2022-09-16 Doctor Unassigned, [facility] 05:01:00 [place] [facility] CONSENT FOR CONTRACEPTION 2022-09-16 Doctor Unassigned, [facility] 05:01:00 [place] [facility] POCT TEST 2022-09-16 Ad, [facility] 00:00:00 [facility] POCT TEST 2022-09-16 Ad, [facility] 00:00:00 [facility] VITAMIN D, 25-OH 2022-09-14 Fidel [facility] 13:07:00 [facility] CBC WITH DIFF 2022-09-14 Fidel [facility] exas 13:07:00 [facility] COMP. METABOLIC PANEL (58293) 2022-09-14 Axel Parra [facility] 13:07:00 [facility] PROTHROMBIN TIME / INR 2022-09-14 Fidel [facility] 13:07:00 [facility] ACTIVATED PARTIAL THRMPLAS 2022-09-14 [facility] 13:07:00 Medical Branch SEDIMENTATION RATE 2022-09-14 [facility] 13:07:00 Medical Branch C-REACTIVE PROTEIN 2022-09-14 [facility] [place] 13:07:00 Medical Branch KEPPRA (LEVETIRACETAM) 2022-09-14 [facility] 13:07:00 Medical Branch PHENYTOIN FREE 2022-09-14 [facility] 13:07:00 Medical Branch URINALYSIS 2022-08-26 SerinaKey [facility] [place] 19:48:00 Medical Branch POCT TEST 2022-08-26 SerinaKey [facility] 19:48:00 Medical Branch URINALYSIS 2022-08-26 Serina [facility] [place] 19:48:00 Medical Branch POCT TEST 2022-08-26 SerinaKey [facility] 19:48:00 Medical Branch XR CHEST 1 VW 2022-08-26 SerinaKey [facility] [place] 19:16:24 Medical Branch XR CHEST 1 VW 2022-08-[facility] 19:16[facility]24 Medical Branch COMP. METABOLIC PANEL (02805) 2022-08-26 Key Smalls Un [facility] 18:52:00 Medical Branch CBC WITH DIFF 2022-08-26 Key Smalls [facility] [place] 18:52:00 Medical Branch CBC WITH DIFF 2022-08-26 Key Smalls [facility] xa 18:52:00 Medical Branch COMP. METABOLIC PANEL ([id number]) 2022-08-26 Key Smalls Un [facility] 18:52:00 Medical Branch EMERGENCY SERVICES AGREEMENTS 2022-08-26 Doctor Unassigned, [facility] AND AUTHORIZATIONS 05:01:00 [place] Medical [facility] EMERGENCY DEPARTMENT 2022-08-26 Doctor Unassigned, [facility] DOCUMENTS 05:01:00 [place] [facility] HCV ANTIBODY 2022-08-17 [facility] 12:57:00 [facility] VITAMIN D, 25-OH 2022-08-17 Axel Parra [facility] 12:57:00 Medical Branch CBC WITH DIFF 2022-08-17 Fidel [facility] ex 12:57:00 Medical Branch COMP. METABOLIC PANEL ([id number]) 2022-08-17 Axel Parra [facility] 12:57:00 [facility] FOLLICLE STIMULATING HORMONE 2022-08-17 Axel Parra [facility] 12:57:00 [facility] TESTOSTERONE, FEMALE/CHILDREN 2022-08-17 Axel Parra [facility] 12:57:00 Medical Branch CORTISOL AM 2022-08-17 Fidel [facility] 12:57:00 Medical Branch GC & CHLAMYDIA AMPLIFIED 2022-08-17 Axel Parra [facility] ASSAY 12:57:00 [facility] VITAMIN B12, LEVEL 2022-08-17 Axel Parra [facility] 12:57:00 [facility] VITAMIN B6, PLASMA 2022-08-17 [facility] 12:57:00 [facility] VITAMIN B1 (THIAMINE), WHOLE 2022-08-17 Axel Parra [facility] BLOOD 12:57:00 [facility] IRON 2022-08-17 Fidel [facility] ex 12:57:00 [facility] FERRITIN SERUM 2022-08-17 Axel Parra [facility] 12:57:00 [facility] LUTEINIZING HORMONE SERUM 2022-08-17 Axel Parra [facility] 12:57:00 [facility] VITAMIN B6, PLASMA 2022-08-17 Fidel [facility] 12:57:00 [facility] FERRITIN SERUM 2022-08-17 Fidel [facility] ex 12:57:00 Medical Branch CORTISOL AM 2022-08-17 Fidel [facility] ex 12:57:00 Medical Branch IRON PANEL 2022-08-17 Fidel [facility] ex 12:57:00 [facility] VITAMIN B12, LEVEL 2022-08-17 Fidel [facility] 12:57:00 [facility] COMP. METABOLIC PANEL ([id number]) 2022-08-17 Axel Parra [facility] 12:57:00 [facility] FOLLICLE STIMULATING HORMONE 2022-08-17 [facility] 12:57:00 [facility] LUTEINIZING HORMONE SERUM 2022-08-17 Axel Parra [facility] 12:57:00 Medical Branch CBC WITH DIFF 2022-08-17 Axel Parra [facility] exas 12:57:00 [facility] HCV ANTIBODY 2022-08-17 Axel Parra [facility] exas 12:57:00 [facility] GC & CHLAMYDIA AMPLIFIED 2022-08-17 Axel Parra [facility] ASSAY 12:57:00 [facility] TESTOSTERONE, FEMALE/CHILDREN 2022-08-17 Axel Parra [facility] 12:57:00 [facility] VITAMIN D, 25-OH 2022-08-17 Axel Parra [facility] 12:57:00 [facility] VITAMIN B1 (THIAMINE), WHOLE 2022-08-17 [facility] BLOOD 12:57:00 [facility] POCT TEST 2022-08-12 [facility] 20:56:00 [facility] POCT TEST 2022-08-12 [facility] 20:56:00 Medical Branch REFERRAL- REQUEST/RESPONSE 2022-08-11 Doctor Unassigned, [facility] [place] 05:01:00 [place] [facility] REFERRAL- REQUEST/RESPONSE 2022-08-11 Doctor Unassigned, [facility] [place] 05:01:00 [place] [facility] PSYCHIATRY CLINIC PATIENT 2022-05-26 Doctor Unassigned, [facility] INFORMATION 06:01:00 [place] [facility] EXTERNAL PROVIDER RECORDS 2022-05-04 Doctor Unassigned, [facility] [place] 06:01:00 [place] [facility] EXTERNAL PROVIDER RECORDS 2022-05-04 Doctor Unassigned, [facility] [place] 06:01:00 [place] [facility] POCT MOLECULAR FLU 2022-04-21 Unknown, Attending [facility] 23:44:00 Medical Branch POCT MOLECULAR FLU 2022-04-21 Unknown, Attending [facility] 23:44:00 Medical Branch POCT MOLECULAR STREP 2022-04-21 Unknown, Attending [facility] 23:42:00 Medical Branch POCT MOLECULAR STREP 2022-04-21 Unknown, Attending [facility] 23:42:00 Medical Branch EPILEPSY MONITORING 2022-04-19 [facility] 00:00:00 Medical Branch HOSPITAL ADMISSION 2022-04-18 Doctor Unassigned, [facility] 06:01:00 [place] [facility] EPILEPSY MONITORING UNIT 2022-04-18 Doctor Unassigned, [facility] DOCUMENTATION 06:01:00 [place] [facility] MR BRAIN W WO CONTRAST WITH 2022-04-05 Roxane [facility] NEUROQUANT 23:56[facility]00 [facility]USAL FOR [facility]AG[facility]IS 2022-04-05 Doctor Unassigned, [facility] AND TREATMENT 22:56:01 [place] [facility] CONSENT/REFUSAL FOR DIAGNOSIS 2022-04-05 Doctor Unassigned, [facility] AND TREATMENT 22:56:01 [place] [facility] ASSIGNMENT OF BENEFITS 2022-04-05 Doctor Unassigned, [facility] 22:55:42 [place] [facility] ASSIGNMENT OF BENEFITS 2022-04-05 Doctor Unassigned, [facility] 22:55:42 [place] [facility] PATIENT QUESTIONNAIRE 2022-04-05 Doctor Unassigned, [facility] 06:01:00 [place] [facility] [place] URINALYSIS 2022-03-21 [facility] 11:[facility]00 Medical Branch URINE DRUG (LCMSMS) - 2022-03-21 Toni [facility] COMPREHENSIVE DRUG PANEL 11:42:00 Medical Branch URINALYSIS 2022-03-21 Toni [facility] 11:42:00 Medical Branch BASIC METABOLIC PANEL (NA, K, 2022-03-21 Chantel Muñoz [facility] CL, CO2, GLUCOSE, BUN, 10:40:00 Medical B ranch CREATININE, CA) CBC WITH DIFF 2022-03-21 Toni [facility] 10:40:00 Medical Branch CBC WITH DIFF 2022-03-21 Toni [facility] 10:40:00 Medical Branch BASIC METABOLIC PANEL (NA, K, 2022-03-21 Muñoz [facility] CL, CO2, GLUCOSE, BUN, 10:40:00 Medical B ranch CREATININE, CA) ELECTROENCEPHALOGRAM 2022-03-21 [facility] ELECTROENCEPHALOGRAM 2022-03-21 [facility] 00:[facility]00 [facility] EKG-12 LEAD 2022-03-20 Juma [facility] ex 23:14:14 Medical Branch PHOSPHORUS 2022-03-20 [facility] 23:07[facility]00 Medical Branch MAGNESIUM 2022-03-20 [facility] 23:07[facility]00 [facility] TEST, SERUM 2022-03-20 Jennifer Dennison [facility] 23:07:00 [facility] COMP. METABOLIC PANEL ([id number]) 2022-03-20 Jennifer Dennison [facility] 23:07:00 Medical Branch CBC WITH DIFF 2022-03-20 Jennifer Dennison [facility] ex 23:07:00 Medical Branch KEPPRA (LEVETIRACETAM) 2022-03-20 Jennifer Dennison [facility] 23:07:00 Medical Branch KEPPRA (LEVETIRACETAM) 2022-03-20 Jennifer Dennison [facility] 23:07:00 [facility] COMP. METABOLIC PANEL ([id number]) 2022-03-20 Jennifer Dennison [facility] 23:07:00 [facility] CBC WITH DIFF 2022-03-20 Jennifer Dennison [facility] 23:07:00 [facility] TEST, SERUM 2022-03-20 Jennifer Dennison [facility] 23:07:00 Medical Branch MAGNESIUM 2022-03-20 [facility] 23:07[facility]00 [facility] Branch PHOSPHORUS 2022-03-20 [facility] 23:07[facility]00 [facility] HB ECG ROUTINE & RHYTHM STRIP 2022-03-20 Jennifer Dennison [facility] 22:57:05 [facility] HOSPITAL ADMISSION 2022-03-20 Doctor Unassigned, [facility] 06:01:00 [place] [facility] HOSPITAL ADMISSION 2022-03-20 Doctor Unassigned, [facility] 06:01:00 [place] [facility] THYROID STIMULATING HORMONE 2022-03-14 Axel Parra [facility] 20:01:00 [facility] FREE T3 2022-03-14 [facility] 20:01:00 [facility] FREE T4 2022-03-14 [facility] exas 20:01:00 [facility] ELECTROENCEPHALOGRAM 2022-01-31 Monet Goodwin [facility] 00:00:00 [facility] POCT TEST 2022-01-30 Monse Chavez [facility] 23:11:00 [facility] URINALYSIS 2022-01-30 Monse Chavez [facility] 23:08:00 [facility] URINE DRUG (IMMUNOASSAY) - 2022-01-30 Mayo Henry [facility] COMPREHENSIVE DRUG SCREEN W/O 23:08:00 [place] dical Branch REFLEX COVID-19 (ID NOW RAPID 2022-01-30 Mayo Henry [facility] TESTING) 22:13:00 [facility] LAB ONLY COVID INTERPRETATION 2022-01-30 Mayo Henry [facility] 22:13:00 [facility] PHOSPHORUS 2022-01-30 [facility] 21:49:00 [facility] MAGNESIUM 2022-01-30 [facility] 21:49:00 [facility] TEST, SERUM 2022-01-30 Mayo Henry [facility] 21:49:00 [facility] COMP. METABOLIC PANEL ([id number]) 2022-01-30 Monse Chavez [facility] 21:49:00 [facility] ETHANOL 2022-01-30 Mayo Henry [facility] [place]as 21:49:00 [facility] CBC WITH DIFF 2022-01-30 Monse Chavez [facility] 21:49:00 [facility] KEPPRA (LEVETIRACETAM) 2022-01-30 Mayo Henry [facility] 21:49:00 [facility] LACTIC ACID WHOLE BLOOD 2022-01-30 Monse Chavez [facility] 21:48:00 [facility] POCT GLUCOSE (AUTOMATED) 2022-01-30 [facility] 21:46:00 [facility] CONSENT/REFUSAL FOR DIAGNOSIS 2022-01-30 Doctor Unassigned, [facility] AND TREATMENT 21:37:27 [place] [facility] HOSPITAL ADMISSION 2022-01-30 Doctor Unassigned, [facility] 05:01:00 [place] [facility] Plan of Care Planned Activity Planned Date Details Comments Source Encounters Start End Encounter Admission Attending Care Care Encounter Source Date/Time Date/Time Type Type Clinicians Facility Department ID 2021-03-08 Emergency [facility] [id number] Univers 03:04:[address] [facility] 2023-03-24 2023-03-24 Outpatient R EDWARD [facility] [id number] Univers 13:00:00 13:00:00 LESLEY [facility] 2022-11-04 2022-11-04 [id number] Univers 13:00:00 13:00:00 AXEL [facility] 2022-10-26 2022-10-26 [facility] [id number] Univers 15:40:00 15:40:00 AXEL [facility] 2022-10-08 2022-10-08 Telephone SHAUNA Solano 1.2.240.472 [id number] Univers 00:00:00 00:00:00 Jesenia RAI 350.1.13.10 ity [facility] 4.2.7.2.686 Christiano as [id number] [address] 2022-10-07 2022-10-07 Outpatient R CHAU [facility] [id number] Univers 20:00:00 20:16:50 MAGGI [facility] 2022-10-07 2022-10-07 Urgent Unknown, Attending 1.2.840.1 [id number] Univers 20:00:00 20:16:50 Maggi Durán 85287.1.1 ity 3.104.2.7 [place] .3.774749 Medica l [address] 2022-10-07 2022-10-07 Travel 1.2.840.1 1.2.200.615 [id number] Univers 00:00:00 00:00:00 13560.1.1 350.1.13.10 ity of 3.104.2.7 [place].3.698 [place] .3.907473 084.8 Medica l .[address] [place] 2022-09-30 2022-09-30 [facility], 1.2.840.0 [id number] Univers 08:45:17 23:59:00 Encounter Thalia Maria 98440.1.1 i ty of 3.104.2.7 [place] .3.368740 Medica l .8 [place] 2022-09-30 2022-09-30 Outpatient [facility] [id number] Univers 08:44:41 08:44:[address] [facility] 2022-09-30 2022-09-30 [facility], 1.2.840.5 [id number] Univers 08:44:41 08:44:41 Encounter Thalia Maria 29309.1.1 i ty of 3.104.2.7 [place] .3.598144 Medica l .8 [place] 2022-09-27 2022-09-27 Patient Justinkelsie, 1.2.840.6 [id number] Univers 00:00:00 00:00:00 Secure Msg Axel 43456.1.1 i ty of 3.104.2.7 [place] .3.105839 Medica l .8 [place] 2022-09-20 2022-09-20 Outpatient R EDWARD [facility] [id number] Univers 11:00:00 11:00:[address] [facility] 2022-09-19 2022-09-19 Telephone Edkelsie, 1.2.840.7 [id number] Univers 00:00:00 00:00:00 Peter 09754.1.1 ity of 3.104.2.7 [place] .3.976423 Medica l .8 [place] 2022-09-16 2022-09-16 Office Adcharisma, 1.2.840.4 [id number] Univers 09:30:00 09:30:00 Visit Lesley Gold 99727.1.1 ity of 3.104.2.7 [place] .3.993942 Medica l .8 [place] 2022-09-16 2022-09-16 Outpatient R EDWARD, [facility] [id number] Univers 09:30:00 08:49:[address] [facility] 2022-09-16 2022-09-16 Orders Doctor 1.2.840.5 [id number] Univers 00:00:00 00:00:00 Only Unassigned, 92031.1.1 ity of [place] 3.104.2.7 [place] .3.647180 Medica l .[address] [place] [address] 2022-09-14 2022-09-14 Music Producer Axel Parra 1.2.840.1 [id number] Univers 08:15:00 09:12:31 Visit 2, Adc Lab 61327.1.1 i ty of 3.104.2.7 [place] .3.887199 Medica l .[address] [place] [address] 2022-09-14 2022-09-14 [facility] [id number] Univers 08:15:00 08:15:[address] [facility] 2022-09-13 2022-09-13 Outpatient [facility] [id number] Univers 13:20:00 14:05:[address] [facility] 2022-09-13 2022-09-13 Office Lupe Parra.2.840.4 [id number] Univers 13:20:00 14:05:53 Visit Axel 73652.1.1 ity of 3.104.2.7 [place] .3.285087 Medica l [address] [place] [address] 2022-09-13 2022-09-13 Travel 1.2.840.1 1.2.747.688 [id number] Univers 00:00:00 00:00:00 59875.1.1 350.1.13.10 ity of 3.104.2.7 4[place].7.3.698 [place] .3.012036 084.8 Medica l .8 Branch 2022-09-08 2022-09-08 Telephone Edrisakobrooke, 1.2.840.2 [id number] Univers 00:00:00 00:00:00 Peter 86638.1.1 ity of 3.104.2.7 [place] .3.876203 Medica l .8 Branch 2022-08-26 2022-08-26 Emergency X SERINA, K RUST ERT [id number] Univers 13:24:00 16:44:00 ity of [facility] 2022-08-26 2022-08-26 Emergency Serina, K 1.2.840.3 [id number] Univers 13:24:00 16:44:00 Myra 21368.1.1 ity of 3.104.2.7 [place] .3.910686 Medica l .8 Branch 2022-08-26 2022-08-26 Telephone Fatou, 1.2.840.4 [id number] Univers 00:00:00 00:00:00 Anusha 38414.1.1 it y of 3.104.2.7 [place] .3.205271 Medica l .8 Branch 2022-08-26 2022-08-26 Travel 1.2.840.1 1.2.363.384 [id number] Univers 00:00:00 00:00:00 68445.1.1 350.1.13.10 ity of 3.104.2.7 4.[place].7.3.698 [place] .3.933522 084.8 Medica l .8 [place] 2022-08-25 2022-08-25 Outpatient R JOSE, [facility] [id number] Univers 14:15:00 14:38:30 TRANSON ity of [facility] 2022-08-25 2022-08-25 Travel 1.2.840.1 1.2.592.871 [id number] Univers 00:00:00 00:00:00 84588.1.1 350.1.13.10 ity of 3.104.2.7 4.2.7.3.698 [place] .3.780672 084.8 Medica l .8 [place] 2022-08-17 2022-08-17 Music Producer Axel Parra 1.2.840.1 [id number] Univers 07:30:00 08:08:45 [place] 7[address].1.1 ity of 3.104.2.7 [place] .3.934501 Medica l .8 [place] 2022-08-17 2022-08-17 Outpatient [facility] [id number] [facility] 07:30:00 07:30:[address] [facility] 2022-08-17 2022-08-17 Travel 1.2.840.1 1.2.594.867 [id number] [facility] 00:00:00 00:00:00 26299.1.1 350.1.13.10 ity of 3.104.2.7 [place]7.3.698 [place] .3.924274 084.8 Medica l .8 [place] 2022-08-12 2022-08-12 Office Ramana 1.2.840.0 [id number] [facility] 16:00:00 16:00:00 Visit Ana 14537.1.1 ity of 3.104.2.7 [place] .3.013490 Medica l .8 [place] 2022-08-12 2022-08-12 [facility] [id number] Univers 16:00:00 14:51:[address] [facility] 2022-08-12 2022-08-12 Travel 1.2.840.1 1.2.218.215 [id number] Univers 00:00:00 00:00:00 76488.1.1 350.1.13.10 ity of 3.104.2.7 4.[place].7.3.698 [place] .3.034824 084.8 Medica l .8 [place] 2022-08-11 2022-08-11 Telephone Fidel 1.2.840.7 [id number] Univers 00:00:00 00:00:00 Peter 75470.1.1 ity of 3.104.2.7 [place] .3.576786 Medica l .8 Branch 2022-08-11 2022-08-11 Orders Doctor 1.2.840.1 [id number] Univers 00:00:00 00:00:00 Only Unassigned, 63466.1.1 ity of [place] 3.104.2.7 [place] .3.206538 Medica l .8 Branch 2022-08-10 2022-08-10 Telephone Gui, 1.2.840.5 [id number] Univers 00:00:00 00:00:00 Tristen 49397.1.1 ity of 3.104.2.7 [place] .3.296299 Medica l .8 [place] 2022-07-26 2022-07-26 Telephone Jeannine Shell 1.2.840.5 [id number] Univers 00:00:00 00:00:00 S 14648.1.1 ity of 3.104.2.7 [place] .3.805523 Medica l .8 [place] 2022-07-01 2022-07-01 Outpatient R FIDEL [facility] [id number] Univers 13:00:00 13:57:50 PETER ity of [facility] 2022-07-01 2022-07-01 Office Fidel, 1.2.840.0 [id number] Univers 13:00:00 13:57:50 Visit Axel 06239.1.1 ity of 3.104.2.7 [place] .3.845500 Medica l .8 [place] 2022-07-01 2022-07-01 Travel 1.2.840.1 1.2.248.466 [id number] Univers 00:00:00 00:00:00 75137.1.1 350.1.13.10 ity of 3.104.2.7 4.[place].7.3.698 [place] .3.799198 084.8 Medica l .8 [place] 2022-05-26 2022-05-26 [facility]patient [facility] [id number] Univers 14:15:00 14:54:05 TRANSON ity of [facility] 2022-05-26 2022-05-26 Travel 1.2.840.1 1.2.972.489 [id number] Univers 00:00:00 00:00:00 57187.1.1 350.1.13.10 ity of 3.104.2.7 4.[place].7.3.698 [place] .3.717899 084.8 Medica l .8 [place] 2022-05-26 2022-05-26 Orders Doctor SHAUNA 1.2.840.114 [id number] Univers 00:00:00 00:00:00 Only Unassigned, FREDI 350.1.13.10 ity of [place] [facility] 4.2.7.2.686 Christiano as [id number] [address] 2022-05-20 2022-05-20 [facility] [id number] Univers 15:40:00 15:40:[address] [facility] 2022-05-04 2022-05-04 Orders Doctor 1.2.840.3 [id number] Univers 00:00:00 00:00:00 Only Unassigned, 12294.1.1 ity of [place] 3.104.2.7 [place] .3.847921 Medica l .8 [place] 2022-04-28 2022-04-28 Office Jeannine Shell 1.2.840.2 [id number] Univers 15:00:00 15:20:00 Visit S 50277.1.1 ity of 3.104.2.7 [place] .3.169604 Medica l .8 [place] 2022-04-28 2022-04-28 Outpatient R JEANNINE SHELL [facility] [id number] Univers 15:00:00 15:00:00 ity of [facility] 2022-04-28 2022-04-28 Letter Jeannine Shell 1.2.840.8 [id number] Univers 00:00:00 00:00:00 (Out) S 44562.1.1 ity of 3.104.2.7 [place] .3.238250 Medica l .8 Branch 2022-04-27 2022-04-27 Telephone Fidel, 1.2.840.5 [id number] Univers 00:00:00 00:00:00 Peter 33309.1.1 ity of 3.104.2.7 [place] .3.797275 Medica l .8 Branch 2022-04-22 2022-04-22 Transition Lindsay, 1.2.840.5 [id number] Univers 00:00:00 00:00:00 of Care Kathryn M 09783.1.1 ity of 3.104.2.7 [place] .3.861592 Medica l .8 Branch 2022-04-22 2022-04-22 Telephone Jey, 1.2.840.6 [id number] Univers 00:00:00 00:00:00 Felicitas Gold 16432.1.1 it y of 3.104.2.7 [place] .3.841448 Medica [facility] .[facility] [place] 2022-04-21 2022-04-21 Urgent Unknown, Attending 1.2.840.1 [id number] Univers 17:40:00 18:04:41 Maggi Durán 74207.1.1 ity of 3.104.2.7 [place] .3.867929 Medica l .[facility] [place] 2022-04-21 2022-04-21 Outpatient R [facility] [id number] Univers 17:40:00 17:40:00 RANIA ity of [facility] 2022-04-18 2022-04-21 Inpatient R JEY ALJOSE R GEORGIE [id number] Univers 08:05:00 12:15:00 RUIQING ity of [facility] 2022-04-18 2022-04-21 [facility] Jeannine Shell 1.2.840.1 [id number] Univers 08:05:00 12:15:00 Encounter Felicitas Khanna 80583.1.1 ity of 3.104.2.7 [place] .3.849469 Medica l .[facility] [place] 2022-04-18 2022-04-18 Travel 1.2.840.1 1.2.743.154 [id number] Univers 00:00:00 00:00:00 79360.1.1 350.1.13.10 ity of 3.104.2.7 [place].3.698 [place]3.[place] 084.8 Med[place] l .8 [place] 2022-04-13 2022-04-13 Telephone Jeannine Shell 1.2.840.0 [id number] Univers 00:00:00 00:00:00 S 24034.1.1 ity of 3.104.2.7 [place] .3.019512 Medica l .8 [place] 2022-04-13 2022-04-13 Telephone Jeannine Shell 1.2.840.3 [id number] Univers 00:00:00 00:00:00 S 31847.1.1 ity of 3.104.2.7 [place] .3.948733 Medica l .8 [place] 2022-04-06 2022-04-06 Telephone Jeannine Shell 1.2.840.0 [id number] Univers 00:00:00 00:00:00 S 66645.1.1 ity of 3.104.2.7 [place] .3.854922 Medica l .8 [place] 2022-04-05 2022-04-05 Outpatient JEANNINE SHELL [facility] [id number] Univers 16:57:56 23:59:00 ity of [facility] 2022-04-05 2022-04-05 [facility] Jeannine Shell 1.2.840.3 [id number] Univers 16:57:56 23:59:00 Encounter S 24087.1.1 it y of 3.104.2.7 [place] .3.972312 Medica l .8 [place] 2022-03-30 2022-03-30 Telephone [place] 1.2.840.8 [id number] Univers 00:00:00 00:00:00 Peter 12265.1.1 ity of 3.104.2.7 [place] .3.734694 Medica l .8 [place] 2022-03-20 2022-03-21 Outpatient X GALI RUST GEORGIE [id number] Univers 16:50:00 17:54:00 CARMEN ity of [facility] 2022-03-20 2022-03-21 Emergency Jennfier Dennison 1.2.840.1 [id number] Univers 16:50:00 17:54:00 Sarthak Stern 11528.1.1 ity of Carmen Talbert 3.104.2.7 [place] .3.578626 Medica l .8 [place] 2022-03-17 2022-03-17 Outpatient R JEANNINE [facility]LL [facility] [id number] Univers 14:00:00 14:47:08 ity of [facility] 2022-03-17 2022-03-17 Office Jeannine Shell 1.2.840.9 [id number] Univers 14:00:00 14:47:08 Visit S 82627.1.1 ity of 3.104.2.7 [place] .3.793178 Medica l .8 [place] 2022-03-17 2022-03-17 Travel 1.2.840.1 1.2.420.374 [id number] Univers 00:00:00 00:00:00 88197.1.1 350.1.13.10 ity of 3.104.2.7 [place].3.698 [place] .3.798547 084.8 Med[place] l .8 [place] 2022-03-14 2022-03-14 Outpatient R FIDEL [facility] [id number] Univers 14:00:00 15:23:47 AXEL ity of [facility] 2022-03-14 2022-03-14 Music Producer Axel Parra 1.2.840.1 1023 [id number] Univers 14:00:00 15:23:47 Visit 2, Jennie Lab 01215.1.1 i ty of 3.104.2.7 [place] .3.937870 Medica l .8 [place] 2022-03-14 2022-03-14 Travel 1.2.840.1 1.2.373.122 [id number] Univers 00:00:00 00:00:00 25410.1.1 350.1.13.10 ity of 3.104.2.7 4.[place].7.3.698 [place] .3.933227 084.8 Medica l .8 [place] 2022-03-10 2022-03-10 Telephone Goodwin, 1.2.840.7 [id number] Univers 00:00:00 00:00:00 Monet 90190.1.1 ity of 3.104.2.7 [place] .3.138804 Medica l .8 [place] 2022-03-08 2022-03-08 Telephone Justinrisavioletta, 1.2.840.7 [id number] Univers 00:00:00 00:00:00 Axel 59020.1.1 ity of 3.104.2.7 [place] .3.769913 Medica l .8 [place] 2022-03-03 2022-03-03 Telephone Dubon, 1.2.840.3 [id number] Univers 00:00:00 00:00:00 Elneza A 28780.1.1 ity of 3.104.2.7 [place] .3.941267 Medica l .8 [place] 2022-02-22 2022-02-22 Telephone [facility] 1.2.840.114 [id number] Univers 00:00:00 00:00:00 [facility] 350.1.13.10 it y of [place] [phone] [place] [address] [address] OFFICE BUILDING 2022-02-15 2022-02-15 Music Producer 2, Adc Lab RUST 1.2.840.114 [id number] Univers 08:45:00 08:45:19 Visit Axel Parra 350.1.13.10 ity of [place].2.7.2.[place] 230.5945249 Oh dical NAL [address] BUILDING 2022-02-15 2022-02-15 Outpatient R FIDEL [facility] [id number] Univers 08:45:00 08:45:[address] [facility] 2022-02-14 2022-02-14 Telephone Gui RUST 1.2.840.114 [id number] Univers 00:00:00 00:00:00 [facility] 350.1.13.10 it y [place] [id number] [address] OFFICE BUILDING 2022-02-11 2022-02-12 Emergency X BILLY HEARD RUST ERT 1 [id number] Univers 17:11:00 00:31:[address] [facility] 2022-02-09 2022-02-09 Outpatient R FIDEL [facility] [id number] Univers 11:20:00 12:43:[address] [facility] 2022-02-09 2022-02-09 Office [facility] 1.2.840.114 [id number] Univers 11:20:00 12:43:12 Visit Axel SANCHEZ 350.1.13.10 i ty of [place].2.[place] [id number] [facility] NAL 044 [address] BUILDING 2022-02-03 2022-02-03 Telephone Vasquez, RUST 1.2.044.008 [id number] Univers 00:00:00 00:00:00 Cecilia PRIMARY 350.1.13.10 i ty of [facility] 4.2.[place].2.[place] 122.0225307 Oh dical 092 [address] 2022-01-30 2022-01-31 Outpatient X SY TIMMONS RUST GEORGIE [id number] Univers 16:38:00 17:47:00 ity of [facility] 2022-01-30 2022-01-31 Emergency [facility] 1.2.840. 114 [id number] Univers 16:38:00 17:47:00 Sy Timmons 350.1.13.10 ity of [facility] 4.2.7.2.686 Christiano as [id number] [facility] 098 [address] 2022-01-28 2022-01-28 Outpatient R SHINE [facility] [id number] Univers 13:00:00 13:46:25 RACHELLREJI ity o f [facility] 2022-01-28 2022-01-28 Office [facility] 1.2.840.114 [id number] Univers 13:00:00 13:46:25 Visit Rosy JAVIERJOSEPH 350.1.13.10 ity [facility] 4.2.[place].2.[place] [id number] Oh dical NAL 059 [facility] 2022-01-27 2022-01-27 Office Jeannine Shell [facility] 1.2.840.114 [id number] Univers 14:40:00 15:20:00 Visit [facility] 350.1.13.10 i ty [facility] [place] [id number] [address] 2022-01-27 2022-01-27 Outpatient R JEANNINE SHELL [facility] [id number] Univers 14:40:00 14:40:00 ity of [facility] 2022-01-03 2022-01-03 Telephone [facility] 1.2.030.757 [id number] Univers 00:00:00 00:00:00 Ruing L SPECIALTY 350.1.13.10 it[place] of [place] [phone] Oh xenialilly [address] 2021-12-24 2021-12-24 Outpatient R JEY [facility] [id number] Univers 15:30:00 16:02:43 RUIQING ity of [facility] 2021-12-24 2021-12-24 Office [facility] 1.2.840.114 [id number] Univers 15:30:00 16:02:43 Visit Barbraing L SPECIALTY 350.1.13.10 it[place] [id number] Oh diclilly VICTORY [address] [place] [address] 2021-12-24 2021-12-24 Telephone [facility] 1.2.429.632 [id number] Univers 00:00:00 00:00:00 Ruiqing L SPECIALTY 350.1.13.10 ity of CARE 4.2.7.2.686 [facility] AT [id number] Oh fabian HOANG [facility] 2021-12-20 2021-12-20 Emergency X KATHY RUST ERT [id number] Univers 11:12:00 13:24:[address] [facility] 2021-12-20 2021-12-20 Emergency [facility] 1.2.840.114 [id number] Univers 11:12:00 13:24:00 Monse Forbes LAURA 350.1.13.10 ity [facility] 4.2.7.2.686 [facility] [id number] [address] 2021-12-15 2021-12-15 Emergency X SINGER RUST ERT [id number] Univers 13:47:00 15:39:[address] [facility] 2021-12-15 2021-12-15 Emergency [facility] 1.2.961.358 [id number] Univers 13:47:00 15:39:00 Justin SANCHEZ 350.1.13.10 i ty [facility] 4.2.7.2.686 [facility] [id number] [address] 2021-12-06 2021-12-06 Outpatient Agustin GILLIS [facility] [id number] Univers 15:00:00 17:10:[address] [facility] 2021-12-06 2021-12-06 Music Producer Pcp-Lab RUST 1.2.840.114 [id number] Univers 15:00:00 15:15:00 Visit Bárbara Gillis 350.1.13.10 ity of CARE 4.2.7.2.686 [facility] [id number] Oh fabian [address] [place] [address] 2021-12-06 2021-12-06 Outpatient Agustin GILLIS [facility] [id number] Univers 10:30:00 12:03:[address] [facility] 2021-12-06 2021-12-06 Office Perla Knight RUST 1.2.840 .114 [id number] Univers 10:30:00 12:03:40 Visit Bárbara Gillis PRIMARY 350.1.13.10 ity of CARE 4.2.7.2.686 Alex GAITAN [id number] [facility] [address] [place] 2021-12-06 2021-12-06 Orders Doctor VILLATORO 1.2.840.114 [id number] Univers 00:00:00 00:00:00 Only Unassigned, FREDI 350.1.13.10 ity of [place] [facility] 4.2.7.2.686 Christiano as [id number] [place] [address] [address] 2021-10-13 2021-10-13 Office Gui RUST 1.2.840.114 [id number] Univers 11:15:00 11:27:34 Visit Tristen SONI 350.1.13.10 it y of [place] 4.2.7.2.686 Alex [place] [id number] [facility] [address] [place] OFFICE BUILDING 2021-10-13 2021-10-13 Outpatient Agustin PAUL [facility] [id number] Univers 11:15:00 11:15:[address] [facility] 2021-10-13 2021-10-13 Outpatient Agustin MAC [facility] [id number] Univers 09:00:00 09:28:[address] [facility] 2021-10-13 2021-10-13 Office Antoni RUST 1.2.840.114 [id number] Univers 09:00:00 09:28:03 Visit Kavitha Elam WOMEN'S 350.1.13.10 it y of [place] [id number] [facility] [place] [address] FRIENDSWO OD 2021-10-13 2021-10-13 Outpatient Agustin MAC [facility] [id number] Univers 09:00:00 09:28:[address] [facility] 2021-10-13 2021-10-13 Orders Doctor VILLATORO 1.2.840.114 [id number] Univers 00:00:00 00:00:00 Only Unassigned, FREDI 350.1.13.10 ity of [place] [facility] 4.2.7.2.686 Christiano [id number] [facility] [address] 2021-09-15 2021-09-15 Outpatient R DIONISIO [facility] [id number] Univers 09:23:28 23:59:[address] [facility] 2021-09-15 2021-09-15 Outpatient Agustin INCHOLE [facility] [id number] Univers 09:23:28 23:59:[address] [facility] 2021-09-15 2021-09-15 [facility] 1.2.840.114 [id number] Univers 09:23:28 23:59:00 Encounter Thalia ASNCHEZ 350.1.13.10 ity [facility] 4.2.7.2.686 [facility] [id number] [facility] [address] [place] 2021-09-15 2021-09-15 Outpatient Agustin NICHOLE [facility] [id number] Univers 09:22:55 09:22:[address] [facility] 2021-09-15 2021-09-15 [facility] 1.2.840.114 [id number] Univers 09:22:55 09:22:55 Encounter Thalia SANCHEZ 350.1.13.10 ity [facility] 4.2.7.2.686 [facility] [id number] [facility] 8[address] [place] 2021-09-10 2021-09-10 Outpatient Agustin KHANNA [facility] [id number] Univers 11:30:00 12:02:[address] [facility] 2021-09-10 2021-09-10 Office Jey RUST 1.2.840.114 [id number] Univers 11:30:00 12:02:08 Visit Felicitas L SPECIALTY 350.1.13.10 ity of [facility] 4.2.7.2.686 [facility] AT [id number] Oh fabian HOANG [address] [place] [address] 2021-09-10 2021-09-10 Outpatient Agustin KHANNA [facility] [id number] Univers 11:30:00 11:30:00 RUIQING ity of [facility] 2021-09-10 2021-09-10 Outpatient R DIONISIO [facility] [id number] Univers 08:30:00 09:08:[address] [facility] 2021-09-10 2021-09-10 Office ELDA Nichole 1.2.840.114 [id number] Univers 08:30:00 09:08:59 Visit Thalia [facility] 350.1.13.10 ity of CL[place] [id number] [facility] [address] 2021-08-31 2021-08-31 Office Luis Eduardo Myers RUST 1.2.840.1 14 [id number] Univers 16:00:00 16:53:33 Visit Lilo Mendieta [facility] 350.1.13.10 ity of [place] [id number] Oh dical [address] [place] 2021-08-31 2021-08-31 Outpatient R GAYATRI [facility] [id number] Univers 16:00:00 16:53:33 [facility] 2021-08-31 2021-08-31 Outpatient [facility] [id number] Univers 16:00:00 16:00:00 [facility] 2021-08-23 2021-08-23 Transition MILTON Wagner 1.2.840.114 [id number] Univers 00:00:00 00:00:00 of Care Carleen GUTIERREZ 350.1.13.10 i ty of [place]2.[place] [id number] [facility] [address] 2021-08-16 2021-08-20 Hospital Jeannine Shell 1.2.840.114 [id number] Univers 08:26:00 11:30:00 Encounter Ranjit Robb 350.1.13.10 ity of [facility] 4.2.7.2.686 Christiano as [id number] [facility] 098 [place] 2021-08-16 2021-08-16 Outpatient JEANNINE MUÑIZ [facility] [id number] Univers 08:30:00 08:30:00 ity of [facility] 2021-08-16 2021-08-16 Outpatient JEANNINE MUÑIZ [facility] [id number] Univers 08:30:00 08:30:00 ity of [facility] 2021-08-16 2021-08-16 Outpatient JEANNINE MUÑIZ [facility] [id number] Univers 08:30:00 08:30:00 ity of [facility] 2021-08-16 2021-08-16 Outpatient JEANNINE MUÑIZ RUST GEOR[place]IE [id number] Univers 08:30:00 08:30:[address] [facility] 2021-08-13 2021-08-13 Laboratory Only, Adc Test RUST 1..840. 114 [id number] Univers 08:00:00 08:15:00 Only Jeannine Shell [place] 350.1.13.10 ity [facility] 4.2.[place].2.[place] [id number] [facility] [address] 2021-08-13 2021-08-13 Outpatient JEANNINE MUÑIZ [facility] [id number] Univers 08:00:00 08:00:[address] [facility] 2021-08-11 2021-08-11 Telephone [facility] 1.2.840.114 [id number] Univers 00:00:00 00:00:00 [facility] 350.1.13.10 it y [place] [id number] [place] [address] [address] OFFICE BUILDING 2021-08-10 2021-08-10 Telephone Christina RUST 1.2.272.902 [id number] Univers 00:00:00 00:00:00 Cecilia PRIMARY 350.1.13.10 i ty of [facility] 4.2.[place].2.[place] [id number] [facility] 092 [address] 2021-08-10 2021-08-10 Telephone Goodwin RUST 1.2.840.114 [id number] Univers 00:00:00 00:00:00 Monet PRIMARY 350.1.13.10 i ty [place]2.[place] [id number] [facility] 0[address] 2021-08-06 2021-08-06 Patient Brooks RUST 1.2.840.114 [id number] Univers 00:00:00 00:00:00 Secure Msg Sims [facility] 350.1.13.10 ity of [facility] 4.2.7.2.686 [facility] [id number] [facility] [address] OFFICE BUILDING 2021-08-03 2021-08-03 Outpatient R VASQUEZ, [facility] [id number] Univers 14:07:56 23:59:00 CECILIA bahena o f [facility] 2021-08-03 2021-08-03 Hospital [facility] 1.2.840.114 [id number] Univers 14:07:56 23:59:00 Encounter Cecilia SANCHEZ 350.1.13.10 ity of [place] 4.2.7.2.686 [facility] [place] [id number] [facility] [address] 2021-07-16 2021-07-16 Telephone Brooks VILLATORO 1.2.351.319 [id number] Univers 00:00:00 00:00:00 Levi FREDI 350.1.13.10 i ty of [facility] 4.2.7.2.686 [place] [id number] [facility] 009 [address] 2021-07-15 2021-07-15 Outpatient R VASQUEZ, [facility] [id number] Univers 13:00:00 23:59:00 CECILIA sargent [facility] 2021-07-15 2021-07-15 Outpatient [facility] [id number] Univers 13:00:00 13:00:00 CECILIA sargent [facility] 2021-07-15 2021-07-15 Ni[facility] 1.2.294.930 [id number] Univers 00:00:00 00:00:00 Thalia Maria HEALTH 350.1.13.10 i ty [place] [id number] [facility] [address] [place] OFFICE BUILDING 2021-07-06 2021-07-06 Outpatient R CHRISTINA [facility] [id number] Univers 13:00:00 14:35:18 CECILIA cifuentes rosetta [facility] 2021-07-06 2021-07-06 Office de Monet Poe RUST 1.2.84 0.114 [id number] Univers 13:00:00 14:35:18 Visit Cecilia Vasquez PRIMARY 350.1.13.1 0 ity of [place] 4[place]2.[place] [id number] [facility] [address] [place] 2021-07-06 2021-07-06 Outpatient R CHRISTINA [facility] [id number] Univers 13:00:00 14:35:18 CECILIA cifuentes rosetta [facility] 2021-04-19 2021-04-19 Outpatient R [facility] EHA [id number] Univers 12:11:00 23:59:00 RAMIN, ity of [place] [facility] 2021-04-19 2021-04-19 [facility] 1.2.840.114 [id number] Univers 12:11:00 23:59:00 Encounter ramin, PRIMARY 350.1.13.10 ity of [place] C[place] 4.2.[place].2.[place] [id number] [facility] [address] [place] 2021-03-26 2021-03-26 Telephone Gui RUST 1.2.840.114 [id number] Univers 00:00:00 00:00:00 Tristen HEALTH 350.1.13.10 it y [place] [id number] [address] OFFICE BUILDING 2021-03-24 2021-03-24 Telephone [facility] 1.2.840.114 [id number] Univers 00:00:00 00:00:00 Tristen HEALTH 350.1.13.10 it y of [place] [id number] [facility] [address] OFFICE BUILDING 2021-03-16 2021-03-16 Telephone Gui RUST 1.2.840.114 [id number] Univers 00:00:00 00:00:00 Tristen SPECIALTY 350.1.13.10 ity of [place].2.[place] [id number] [address] 2021-03-11 2021-03-11 Telephone Dionisio RUST 1.2.840.114 [id number] Univers 00:00:00 00:00:00 Thalia C HEALTH 350.1.13.10 i ty of [place] [id number] [address] OFFICE BUILDING 2021-01-14 2021-01-14 Telephone Dionisio RUST 1.2.840.114 [id number] Univers 00:00:00 00:00:00 Thalia C Health 350.1.13.10 i ty [place] [id number] [address] Office [facility] 2020-11-12 2020-11-12 Outpatient R [facility] [id number] Univers 10:00:00 10:00:00 TRISTEN [facility] 2020-10-30 2020-10-30 Outpatient R [facility] [id number] Univers 13:00[facility]00 [facility]24[facility]-10-30 2020-10-30 Outpatient R [facility] [id number] Univers 13:00:00 13:00:[address] [facility] 2020-10-22 2020-10-22 Emergency X RUST ERT [id number] Univers 12:07:00 12:07:[address] [facility] 2020-10-12 2020-10-12 Emergency X RUST ERT [id number] Univers 19:23:00 19:23:[facility] 2020-09-07 2020-09-09 Outpatient X [facility] SNS [id number] Univers 10:28:00 16:20:[address] [facility] 2020-09-07 2020-09-07 Emergency X RUST ERT [id number] Univers 10:22:00 10:22:00 [facility] 2020-08-31 2020-08-31 Emergency E SARA, [facility] 1116 [facility] 00:51:00 11:46:00 ALBERT 2019-07-19 2019-07-19 Emergency [facility] 1.2.840.114 [id number] 21:36:16 23:53:00 Monse Sanchez 350.1.13.10 [place] 4.2.7.2.686 [place] [id number] 2019-07-19 2019-07-19 Emergency X [facility] ERT [id number] Univers 21:22:00 21:22:00 MONSE [facility] Results Test Description Test Time Test Comments Results Result Comments Source POCT TEST 2022-09-16 13:30:00 Test Item Value Reference Range Interpretation Comme nts POCT PREG (test code = 1605) Negative On board controls acceptable with C Line (test code = 3574) Yes POCT PREG LOT # (test code = 3575) PO[facility] PREG TEST DATE (test code = 3576[id number] 13:30:00 Test Item Value Reference Range Interpretation Comments POCT PREG (test code = 1605) Negative On board controls acceptable with C Yes Line (test code = 3574) POCT PREG LOT # (test code = 3575) POCT PREG TEST DATE (test code = 3576) [facility] [id number] 13:30:00 Test Item Value Reference Range Interpretation Comments POCT PREG (test code = 1605) Negative On board controls acceptable with C Yes Line (test code = 3574) POCT PREG LOT # (test code = 3575) POCT PREG TEST DATE (test code = 3576) [facility] [id number] 19:48:00 Test Item Value Reference Range Interpretation Comments POCT PREG (test code = 1605) Negative On board controls acceptable with Present C Line (test code = 3574) POCT PREG LOT # (test code = HCG [id number]) POCT PREG TEST DATE (test 06/07/2023 code = 3576) Lab Interpretation (test code = Normal 85986-1) General acute hospital [id number] 19:48:00 Test Item Value Reference Range Interpretation Comments POCT PREG (test code = 1605) Negative On board controls acceptable with Present C Line (test code = 3574) POCT PREG LOT # (test code = HCG [id number]) POCT PREG TEST DATE (test 06/07/2023 code = 3576) Lab Interpretation (test code = Normal 78790-8) General acute hospital [id number] 19:48:00 Test Item Value Reference Range Interpretation Comments POCT PREG (test code = 1605) Negative On board controls acceptable with Present C Line (test code = 3574) POCT PREG LOT # (test code = HCG [id number]) POCT PREG TEST DATE (test 06/07/2023 code = 3576) Lab Interpretation (test code = Normal 98639-0) [facility]. METABOLIC PANEL (52962)2022-08-26 19:44:55 Test Item Value Reference Range Interpretation Comments NA (test code = 137 mmol/L 135-145 8782700093) K (test code = 3.6 mmol/L 3.5-5.0 3603465812) CL (test code = 101 mmol/L 98-108 1941528210) CO2 TOTAL (test code = 25 mmol/L 23-31 1730055721) AGAP (test code = 11 2-16 1551136642) BUN (test code = 9 mg/dL 7-23 8978471607) GLUCOSE (test code = 175 mg/dL 70-110 H 7937732181) CREATININE (test code = 0.51 mg/dL 0.50-1.04 7234222457) TOTAL BILI (test code = 0.7 mg/dL 0.1-1.5 9275842661) CALCIUM (test code = 8.8 mg/dL 8.6-10.6 9321004731) T PROTEIN (test code = 7.0 g/dL 6.3-8.2 8221452627) ALBUMIN (test code = 4.5 g/dL 3.5-5.0 5327325881) ALK PHOS (test code = 66 U/L 34-122 5000783611) ALTv (test code = 21 U/L 5-35 1742-6) AST(SGOT) (test code = 22 U/L 13-40 1507082644) eGFR (test code = 149.4 mL/min/1.73m2 1537714171) LIA (test code = LIA) Association of [...] tests). Lab Interpretation Abnormal (test code = 99909-0) [facility]. METABOLIC PANEL ([id number])2022-08-26 19:44:55 Test Item Value Reference Range Interpretation Comments NA (test code = 137 mmol/L 135-145 2831153409) K (test code = 3.6 mmol/L 3.5-5.0 3438291330) CL (test code = 101 mmol/L 98-108 6285362021) CO2 TOTAL (test code = 25 mmol/L 23-31 3278368598) AGAP (test code = 11 2-16 4579448185) BUN (test code = 9 mg/dL 7-23 1091056524) GLUCOSE (test code = 175 mg/dL 70-110 H 3144339770) CREATININE (test code = 0.51 mg/dL 0.50-1.04 2290092515) TOTAL BILI (test code = 0.7 mg/dL 0.1-1.0 7444307114) CALCIUM (test code = 8.8 mg/dL 8.6-10.6 8611890457) T PROTEIN (test code = 7.0 g/dL 6.3-8.2 3503263419) ALBUMIN (test code = 4.5 g/dL 3.5-5.0 6964959015) ALK PHOS (test code = 66 U/L 34-122 5809388390) ALTv (test code = 21 U/L 5-35 1742-6) AST(SGOT) (test code = 22 U/L 13-40 3225971998) eGFR (test code = 149.4 mL/min/1.73m2 5393648101) LIA (test code = LIA) Association of [...] tests). Lab Interpretation Abnormal (test code = 44882-6) [facility]. METABOLIC PANEL ([id number])2022-08-26 19:44:55 Test Item Value Reference Range Interpretation Comments NA (test code = 137 mmol/L 135-145 5155391246) K (test code = 3.6 mmol/L 3.5-5.0 3616521927) CL (test code = 101 mmol/L 98-108 1536051228) CO2 TOTAL (test code = 25 mmol/L 23-31 1962592403) AGAP (test code = 11 2-16 5862074477) BUN (test code = 9 mg/dL 7-23 2247145828) GLUCOSE (test code = 175 mg/dL 70-110 H 7688670043) CREATININE (test code = 0.51 mg/dL 0.50-1.04 9472796569) TOTAL BILI (test code = 0.7 mg/dL 0.1-1.3 9596580119) CALCIUM (test code = 8.8 mg/dL 8.6-10.6 7718013602) T PROTEIN (test code = 7.0 g/dL 6.3-8.2 6830433615) ALBUMIN (test code = 4.5 g/dL 3.5-5.0 4158624939) ALK PHOS (test code = 66 U/L 34-122 8589818575) ALTv (test code = 21 U/L 5-35 1742-6) AST(SGOT) (test code = 22 U/L 13-40 8672185986) eGFR (test code = 149.4 mL/min/1.73m2 2548659723) LIA (test code = LIA) Association of [...] tests). Lab Interpretation Abnormal (test code = 86977-9) [facility] acute hospital WITH [id number] 19:26:31 Test Item Value Reference Range Interpretation Comments WBC (test code = 6.08 See_Comment [Automated 6769-2) message] The sy stem which generated this result transmitted reference range : 4.30 - 11.10 10*3/?L. The reference range was not used to interpret this result as normal/abnormal . RBC (test code = 4.33 See_Comment [Automated 890-8) message] The sy stem which generated this [...] (test code = 35.8 fL 39.0-49.9 L 38368-1) RDW-CV (test code = 11.9 % 12.0-15.5 L 788-0) PLT (test code = 229 See_Comment [Automated 777-3) message] The sy stem which generated this result transmitted reference range : 166 - 358 10*3/ ?L. The reference r vimal was not used to interpret this result as normal/abnormal . MPV (test code = 11.1 fL 9.5-12.9 99838-4) NRBC/100 WBC (test 0.0 See_Comment [Automat ed code = 2395710210) message] The system which generated this result transmitted reference range : 0.0 - 10.0 /100 WBCs. The refer ence range was not u sed to interpret th is result as normal/abnormal . NRBC x10^3 (test code See_Comment [Auto mated = 5569292982) message] The s ystem which generated this result transmitted reference range : 10*3/?L. The reference range was not used to interpret this result as normal/abnormal . GRAN MAT (NEUT) % 68.8 % (test code = 770-8) IMM GRAN % (test code 0.30 % = 8432301822) LYMPH % (test code = 24.5 % 736-9) MONO % (test code = 4.9 % 5905-5) EOS % (test code = 0.8 % 713-8) BASO % (test code = 0.7 % 706-2) GRAN MAT x10^3(ANC) 4.18 10*3/uL 1.88-7.09 (test code = 6575075891) IMM GRAN x10^3 (test 0.00-0.06 code = 1208156626) LYMPH x10^3 (test code 1.49 10*3/uL 1.32-3.29 = 731-0) MONO x10^3 (test code 0.30 10*3/uL 0.33-0.92 L = 742-7) EOS x10^3 (test code = 0.05 10*3/uL 0.03-0.39 711-2) BASO x10^3 (test code 0.04 10*3/uL 0.01-0.07 = 704-7) Lab Interpretation Abnormal (test code = 81052-4) [facility] acute hospital WITH [id number] 19:26:31 Test Item Value Reference Range Interpretation [...] (test code = 35.8 fL 39.0-49.9 L 69636-0) RDW-CV (test code = 11.9 % 12.0-15.5 L 788-0) PLT (test code = 229 See_Comment [Automated 777-3) message] The sy stem which generated this result transmitted reference range : 166 - 358 10*3/ ?L. The reference r vimal was not used to interpret this result as normal/abnormal . MPV (test code = 11.1 fL 9.5-12.9 32155-0) NRBC/100 WBC (test 0.0 See_Comment [Automat ed code = 9282369841) message] The system which generated this result transmitted reference range : 0.0 - 10.0 /100 WBCs. The refer ence range was not u sed to interpret th is result as normal/abnormal . NRBC x10^3 (test code See_Comment [Auto mated = 5528657126) message] The s ystem which generated this result transmitted reference range : 10*3/?L. The reference range was not used to interpret this result as normal/abnormal . GRAN MAT (NEUT) % 68.8 % (test code = 770-8) IMM GRAN % (test code 0.30 % = 7995870558) LYMPH % (test code = 24.5 % 736-9) MONO % (test code = 4.9 % 5905-5) EOS % (test code = 0.8 % 713-8) BASO % (test code = 0.7 % 706-2) GRAN MAT x10^3(ANC) 4.18 10*3/uL 1.88-7.09 (test code = 7232712084) IMM GRAN x10^3 (test 0.00-0.06 code = 4463065270) LYMPH x10^3 (test code 1.49 10*3/uL 1.32-3.29 = 731-0) MONO x10^3 (test code 0.30 10*3/uL 0.33-0.92 L = 742-7) EOS x10^3 (test code = 0.05 10*3/uL 0.03-0.39 711-2) BASO x10^3 (test code 0.04 10*3/uL 0.01-0.07 = 704-7) Lab Interpretation Abnormal (test code = 20580-6) General acute hospital WITH [id number] 19:26:31 Test Item Value Reference Range Interpretation Comments WBC (test code = 6.08 See_Comment [Automated 2697-2) message] The sy stem which generated this result transmitted reference range : 4.30 - 11.10 10*3/?L. The reference range was not used to interpret this result as normal/abnormal . RBC (test code = 4.33 See_Comment [Automated 154-8) message] The sy stem which generated this [...] (test code = 35.8 fL 39.0-49.9 L 73203-9) RDW-CV (test code = 11.9 % 12.0-15.5 L 788-0) PLT (test code = 229 See_Comment [Automated 777-3) message] The sy stem which generated this result transmitted reference range : 166 - 358 10*3/ ?L. The reference r vimal was not used to interpret this result as normal/abnormal . MPV (test code = 11.1 fL 9.5-12.9 61666-8) NRBC/100 WBC (test 0.0 See_Comment [Automat ed code = 4705985587) message] The system which generated this result transmitted reference range : 0.0 - 10.0 /100 WBCs. The refer ence range was not u sed to interpret th is result as normal/abnormal . NRBC x10^3 (test code See_Comment [Auto mated = 8905189384) message] The s ystem which generated this result transmitted reference range : 10*3/?L. The reference range was not used to interpret this result as normal/abnormal . GRAN MAT (NEUT) % 68.8 % (test code = 770-8) IMM GRAN % (test code 0.30 % = 1230336731) LYMPH % (test code = 24.5 % 736-9) MONO % (test code = 4.9 % 5905-5) EOS % (test code = 0.8 % 713-8) BASO % (test code = 0.7 % 706-2) GRAN MAT x10^3(ANC) 4.18 10*3/uL 1.88-7.09 (test code = 2104559559) IMM GRAN x10^3 (test 0.00-0.06 code = 2179858715) LYMPH x10^3 (test code 1.49 10*3/uL 1.32-3.29 = 731-0) MONO x10^3 (test code 0.30 10*3/uL 0.33-0.92 L = 742-7) EOS x10^3 (test code = 0.05 10*3/uL 0.03-0.39 711-2) BASO x10^3 (test code 0.04 10*3/uL 0.01-0.07 = 704-7) Lab Interpretation Abnormal (test code = 17028-1) [facility]/[id number] 22:14:00 Test Item Value Reference Range Interpretation Comments TESTOS (test 29 ng/dL 9-55 REFERENCE INTER ROXANNE: code = 2986-8) Testosterone by [employer] FemalesPremenop ausal ?9-55 ng/dLPostmenopa usal 5-32 ng/dL INTERPRET MARYANA INFORMATION: Te stosterone by [employer] Free or bioavailable te stosterone measurements ma ena provide supportive info rmation. For individuals on testosterone-arita ppressing hormone therapi es (e.g., antiandrogens o r estrogens), refer to cisgen millie female reference inter vals. For a complete set of all established ref erence intervals, refe r to ltd.[employer] /Tests/Pub/008 1058. This test was developed and its perform ance characteristics determined by [facility]. It has not been cleared or approved by the [place] Food and Drug Administration. This test was performed in a CLIA certified laboratory and is intended for clinical purposes.Perfor med By: [address] [place] [id number] Director: Inocente cain MD, PhD [facility]TEST[facility], FEMALE/[id number] 22:14:00 Test Item Value Reference Range Interpretation Comments TESTOS (test 29 ng/dL 9-55 REFERENCE INTER ROXANNE: code = 2986-8) Testosterone by [employer] Coordinator FemalesPremenop ausal ?9-55 ng/dLPostmenopa usal 5-32 ng/dL INTERPRET MARYANA INFORMATION: Te stosterone by [employer] Free or bioavailable te stosterone measurements ma y provide supportive info rmation. For individuals on testosterone-arita ppressing hormone therapi es (e.g., antiandrogens o r estrogens), refer to cisgen millie female reference inter vals. For a complete set of all established ref erence intervals, refe r to ltd.[employer] /Tests/Pub/008 1058. This test was developed and its perform ance characteristics determined by [facility]. It has not been cleared or approved by the [place] Food and Drug Administration. This test was performed in a CLIA certified laboratory and is intended for clinical purposes.Perfor med By: [employer] [place] [address], [place] [address]Iaulcadfvx Director: Inocente cain MD, PhD [facility]TEST[facility]ONE, FEMALE/[id number] 22:14:00 Test Item Value Reference Range Interpretation Comments TESTOS (test 29 ng/dL 9-55 REFERENCE INTER ROXANNE: code = 2986-8) Testosterone by [employer] Coordinator FemalesPremenop ausal ?9-55 ng/dLPostmenopa usal 5-32 ng/dL INTERPRET MARYANA INFORMATION: Te stosterone by [employer] Free or bioavailable te stosterone measurements mandeep sutherland provide supportive info rmation. For individuals on testosterone-arita ppressing hormone therapi es (e.g., antiandrogens o r estrogens), refer to cisgen millie female reference inter vals. For a complete set of all established ref erence intervals, refe r to ltd.[employer] /Tests/Pub/008 1058. This test was developed and its perform ance characteristics determined by [facility]. It has not been cleared or approved by the [place] Food and Drug Administration. This test was performed in a CLIA certified laboratory and is intended for clinical purposes.Perfor med By: [facility] [address] [place] [address], [place] [address]Qyqowzlswi Director: Inocente cain MD, PhD [facility] CenterTESTOSTERONE, FEMALE/[id number] 22:14:00 Test Item Value Reference Range Interpretation Comments TESTOS (test 29 ng/dL 9-55 REFERENCE INTER ROXANNE: code = 2986-8) Testosterone by [employer] Coordinator FemalesPremenop ausal ?9-55 ng/dLPostmenopa usal 5-32 ng/dL INTERPRET MARYANA INFORMATION: Te stosterone by [employer] Free or bioavailable te stosterone measurements ma y provide supportive info rmation. For individuals on testosterone-arita ppressing hormone therapi es (e.g., antiandrogens o r estrogens), refer to cisgen millie female reference inter vals. For a complete set of all established ref erence intervals, refe r to ltd.[employer] /Tests/Pub/008 1058. This test was developed and its perform ance characteristics determined by [facility]. It has not been cleared or approved by the [place] Food and Drug Administration. This test was performed in a CLIA certified laboratory and is intended for clinical purposes.Perfor med By: [address] [place], [place] [address]Mkrnxjlxot Director: Inocente cain MD, PhD [facility] CenterVIT[facility]IN B1 (THIAMINE), WHOLE [id number] 15:20:23 Test Item Value Reference Range Interpretation Comments Vitamin B1, Whole 124 nmol/L 70-180 INTERPRETI VE INFORMATION: Blood (test code = Vitamin B 1, Whole Blood 38806-2) This assay jackeline ures the concentration o f thiamine diphosphate (TD P), the primary active form of vitamin B1. Kishore roximately 90 percent of v itamin B1 present in whol e blood is TDP. Thiamine a nd thiamine monoph osphate, which comprise the remaining 10 pe rcent, are not measured. T his test was developed a nd its performance characteristics determined by [facility]. I t has not been cleared or approved by the [place] Food and Drug Administration. This test was performed i n a CLIA certified labor atory and is intended for clinical purposes.Perfor med By: [employer] [place], [place] [address]T aboratory Director: Juanjose Phillips MD, PhD [facility] (THIAMINE), WHOLE [id number] 15:20:23 Test Item Value Reference Range Interpretation Comments Vitamin B1, Whole 124 nmol/L 70-180 INTERPRETI VE INFORMATION: Blood (test code = Vitamin B 1, Whole Blood 63244-4) This assay jackeline ures the concentration o f thiamine diphosphate (TD P), the primary active form of vitamin B1. Kishore roximately 90 percent of v itamin B1 present in whol e blood is TDP. Thiamine a nd thiamine monoph osphate, which comprise the remaining 10 pe rcent, are not measured. T his test was developed a nd its performance characteristics determined by [facility]. I t has not been cleared or approved by the [place] Food and Drug Administration. This test was performed i n a CLIA certified labor atory and is intended for clinical purposes.Perfor med By: [place] [id number] aboratory Director: Juanjose Phillips MD, PhD [facility] (THIAMINE), WHOLE [id number] 15:20:23 Test Item Value Reference Range Interpretation Comments Vitamin B1, Whole 124 nmol/L 70-180 INTERPRETI VE INFORMATION: Blood (test code = Vitamin B 1, Whole Blood 02788-4) This assay jackeline ures the concentration o f thiamine diphosphate (TD P), the primary active form of vitamin B1. Kishore roximately 90 percent of v itamin B1 present in whol e blood is TDP. Thiamine a nd thiamine monoph osphate, which comprise the remaining 10 pe rcent, are not measured. T his test was developed a nd its performance characteristics determined by [facility]. I t has not been cleared or approved by the [place] Food and Drug Administration. This test was performed i n a CLIA certified labor atory and is intended for clinical purposes.Perfor med By: [address] [address]K aboratory Director: Juanjose Phillips MD, PhD [facility] (THIAMINE), WHOLE [id number] 15:20:23 Test Item Value Reference Range Interpretation Comments Vitamin B1, Whole 124 nmol/L 70-180 INTERPRETI VE INFORMATION: Blood (test code = Vitamin B 1, Whole Blood 30366-6) This assay jackeline ures the concentration o f thiamine diphosphate (TD P), the primary active form of vitamin B1. Kishore roximately 90 percent of v itamin B1 present in whol e blood is TDP. Thiamine a nd thiamine monoph osphate, which comprise the remaining 10 pe rcent, are not measured. T his test was developed a nd its performance characteristics determined by [facility]. I t has not been cleared or approved by the [place] Food and Drug Administration. This test was performed i n a CLIA certified labor atory and is intended for clinical purposes.Perfor med By: [address] [id number] aboratory Director: Juanjose Phillips MD, PhD [facility] B6, [id number] 04:08:01 Test Item Value Reference Range Interpretation Comments VIT B6 (test 31.4 nmol/L 20.0-125.0 INTERPRETIVE IN FORMATION: code = 70691-1) Vitamin B6 ( Pyridoxal 5-Phosphate) Py ridoxal 5'-phosphate me asured in a specimen collec angel following an 8- hour or overnight fast accurately indicates vitam in B6 nutritional sta tus. Non-fasting spe cimen concentration r eflects recent vitamin intake. This test was d eveloped and its perform ance characteristics determined by [facility]. It has not been cl eared or approved by the [place] Food and Drug Admini stration. This test was p erformed in a CLIA certifie d laboratory and is intended for clinical purposes.Perfor med By: [address] [address]Xsdvaos ory Director: Juanjose Phillips MD, PhD [facility] B6, [id number] 04:08:01 Test Item Value Reference Range Interpretation Comments VIT B6 (test 31.4 nmol/L 20.0-125.0 INTERPRETIVE IN FORMATION: code = 56097-2) Vitamin B6 ( Pyridoxal 5-Phosphate) Py ridoxal 5'-phosphate me asured in a specimen collec angel following an 8- hour or overnight fast accurately indicates vitam in B6 nutritional sta tus. Non-fasting spe cimen concentration r eflects recent vitamin intake. This test was d eveloped and its perform ance characteristics determined by [facility] ories. It has not been cl eared or approved by the US Food and Drug Admini stration. This test was p erformed in a CLIA certifie d laboratory and is intended for clinical purposes.Perfor med By: [facility] [employer] [address]Oqlkatd ory Director: Juanjose Phillips MD, PhD [facility], [id number] 04:08:01 Test Item Value Reference Range Interpretation Comments VIT B6 (test 31.4 nmol/L 20.0-125.0 INTERPRETIVE IN FORMATION: code = 36666-9) Vitamin B6 ( Pyridoxal 5-Phosphate) Py ridoxal 5'-phosphate me asured in a specimen collec angel following an 8- hour or overnight fast accurately indicates vitam in B6 nutritional sta tus. Non-fasting spe cimen concentration r eflects recent vitamin intake. This test was d eveloped and its perform ance characteristics determined by [facility]. It has not been cl eared or approved by the US Food and Drug Admini stration. This test was p erformed in a CLIA certifie d laboratory and is intended for clinical purposes.Perfor med By: [address] [address]Icjpgcd ory Director: Juanjose Phillips MD, PhD [facility], [id number] 04:08:01 Test Item Value Reference Range Interpretation Comments VIT B6 (test 31.4 nmol/L 20.0-125.0 INTERPRETIVE IN FORMATION: code = 18164-8) Vitamin B6 ( Pyridoxal 5-Phosphate) Py ridoxal 5'-phosphate me asured in a specimen collec angel following an 8- hour or overnight fast accurately indicates vitam in B6 nutritional sta tus. Non-fasting spe cimen concentration r eflects recent vitamin intake. This test was d lizabetheloped and its perform ance characteristics determined by [facility]. It has not been cl eared or approved by the US Food and Drug Admini stration. This test was p erformed in a CLIA certifie d laboratory and is intended for clinical purposes.Perfor med By: [facility] [employer] [address] [address]Yuhlwph ory Director: Juanjose Phillips MD, PhD [facility] D, [id number] 01:41:48 Test Item Value Reference Range Interpretation Comments VIT D 25OH (test code = 18 ng/mL 25-80 L 95837-6) LIA (test code = LIA) Deficiency: <20 ng/mLInsufficiency: 20-24 ng/mLOptimal: 25-80 ng/mL Lab Interpretation (test Abnormal code = 74345-2) [facility], [id number] 01:41:48 Test Item Value Reference Range Interpretation Comments VIT D 25OH (test code = 18 ng/mL 25-80 L 17706-1) LIA (test code = LIA) Deficiency: <20 ng/mLInsufficiency: 20-24 ng/mLOptimal: 25-80 ng/mL Lab Interpretation (test Abnormal code = 05115-1) [facility], [id number] 01:41:48 Test Item Value Reference Range Interpretation Comments VIT D 25OH (test code = 18 ng/mL 25-80 L 03229-0) LIA (test code = LIA) Deficiency: <20 ng/mLInsufficiency: 20-24 ng/mLOptimal: 25-80 ng/mL Lab Interpretation (test Abnormal code = 03926-4) [facility] B12, [id number] 21:49:56 Test Item Value Reference Range Interpretation Comments VIT B12 (test code = 400 pg/mL 240-930 6546802273) LIA (test code = LIA) Biotin has been reported to cause a positive bias, interpret results relative to patient's use of biotin. Lab Interpretation (test Normal code = 37851-1) [facility], [id number] 21:49:56 Test Item Value Reference Range Interpretation Comments VIT B12 (test code = 400 pg/mL 240-930 4163442023) LIA (test code = LIA) Biotin has been reported to cause a positive bias, interpret results relative to patient's use of biotin. Lab Interpretation (test Normal code = 77764-1) [facility], [id number] 21:49:56 Test Item Value Reference Range Interpretation Comments VIT B12 (test code = 400 pg/mL 240-930 3826730728) LIA (test code = LIA) Biotin has been reported to cause a positive bias, interpret results relative to patient's use of biotin. Lab Interpretation (test Normal code = 07835-9) [facility], [id number] 21:49:56 Test Item Value Reference Range Interpretation Comments VIT B12 (test code = 400 pg/mL 240-930 5867931367) LIA (test code = LIA) Biotin has been reported to cause a positive bias, interpret results relative to patient's use of biotin. Lab Interpretation (test Normal code = 67973-7) [facility] [id number] 21:28:58 Test Item Value Reference Range Interpretation Comments FSH (test code = 3.63 mIU/mL 4377951073) LIA (test code = FSH Reference Ranges LIA) Follicular Phase: ? ? ? 3.8-8.8 mIU/mLMid-cycle Peak: ? 4.5-22.85 mIU/mLLuteal Phase: ? 1.7-5.1 mIU/mLPost-menopause female: ?16.7-113.6 mIU/mLAdult male: ? 1.2-19 mIU/mL [facility] CenterLUTE[facility] HORM[facility] [id number] 21:28:58 Test Item Value Reference Range Interpretation Comments LH (test code = 5.92 mIU/mL 2440040935) LIA (test code = LH Reference Ranges: LIA) Menstrating Female ? ? Follicular phase ? ? 2.1-10.9 mIU/mL ? ? Mid-cycle peak ? ? ? 19.1-103.0 mIU/mL ? ? Luteal phase ? 1.2-12.8 mIU/mL Post-menopausal female ? ?10.8-58.6 mIU/mL Adule Male ?1.2-8.6 mIU/mL [facility] [id number] 21:28:58 Test Item Value Reference Range Interpretation Comments FSH (test code = 3.63 mIU/mL 3119928360) LIA (test code = FSH Reference Ranges LIA) Follicular Phase: ? ? ? 3.8-8.8 mIU/mLMid-cycle Peak: ? 4.5-22.85 mIU/mLLuteal Phase: ? 1.7-5.1 mIU/mLPost-menopause female: ?16.7-113.6 mIU/mLAdult male: ? 1.2-19 mIU/mL [facility] CenterLUTE[facility] HORM[facility] [id number] 21:28:58 Test Item Value Reference Range Interpretation Comments LH (test code = 5.92 mIU/mL 1487259725) LIA (test code = LH Reference Ranges: LIA) Menstrating Female ? ? Follicular phase ? ? 2.1-10.9 mIU/mL ? ? Mid-cycle peak ? ? ? 19.1-103.0 mIU/mL ? ? Luteal phase ? 1.2-12.8 mIU/mL Post-menopausal female ? ?10.8-58.6 mIU/mL Adule Male ?1.2-8.6 mIU/mL [facility] CenterLUTEINIZING HORMONE [id number] 21:28:58 Test Item Value Reference Range Interpretation Comments LH (test code = 5.92 mIU/mL 9090203649) LIA (test code = LH Reference Ranges: LIA) Menstrating Female ? ? Follicular phase ? ? 2.1-10.9 mIU/mL ? ? Mid-cycle peak ? ? ? 19.1-103.0 mIU/mL ? ? Luteal phase ? 1.2-12.8 mIU/mL Post-menopausal female ? ?10.8-58.6 mIU/mL Adule Male ?1.2-8.6 mIU/mL [facility] [id number] 21:28:58 Test Item Value Reference Range Interpretation Comments FSH (test code = 3.63 mIU/mL 9016851070) LIA (test code = FSH Reference Ranges LIA) Follicular Phase: ? ? ? 3.8-8.8 mIU/mLMid-cycle Peak: ? 4.5-22.85 mIU/mLLuteal Phase: ? 1.7-5.1 mIU/mLPost-menopause female: ?16.7-113.6 mIU/mLAdult male: ? 1.2-19 mIU/[facility] [id number] 21:28:58 Test Item Value Reference Range Interpretation Comments FSH (test code = 3.63 mIU/mL [id number]) LIA (test code = FSH Reference Ranges LIA) Follicular Phase: ? ? ? 3.8-8.8 mIU/mLMid-cycle Peak: ? 4.5-22.85 mIU/mLLuteal Phase: ? 1.7-5.1 mIU/mLPost-menopause female: ?16.7-113.6 mIU/mLAdult male: ? 1.2-19 mIU/mL [facility] CenterL[facility]ORM[facility] [id number] 21:28:58 Test Item Value Reference Range Interpretation Comments LH (test code = 5.92 mIU/mL 7614055451) LIA (test code = LH Reference Ranges: LIA) Menstrating Female ? ? Follicular phase ? ? 2.1-10.9 mIU/mL ? ? Mid-cycle peak ? ? ? 19.1-103.0 mIU/mL ? ? Luteal phase ? 1.2-12.8 mIU/mL Post-menopausal female ? ?10.8-58.6 mIU/mL Adule Male ?1.2-8.6 mIU/mL [facility] CenterH[facility] [id number] 21:21:09 Test Item Value Reference Range Interpretation Comments HCV Ab (test code = 83505-7) Negative HCV Semi-Quantitative (test code = 0.01 82192-5) [facility] [id number] 21:21:09 Test Item Value Reference Range Interpretation Comments HCV Ab (test code = 16114-5) Negative HCV Semi-Quantitative (test code = 0.01 82020-3) [facility] Center[facility] [id number] 21:21:09 Test Item Value Reference Range Interpretation Comments HCV Ab (test code = 54655-1) Negative HCV Semi-Quantitative (test code = 0.01 17730-0) [facility] [id number] 21:21:09 Test Item Value Reference Range Interpretation Comments HCV Ab (test code = 42320-9) Negative HCV Semi-Quantitative (test code = 0.01 29206-1) [facility] [id number] 21:00:45 Test Item Value Reference Range Interpretation Comments JAKY AM (test code = 10.5 ug/dL 4.5-23.0 6514180012) LIA (test code = LIA) Biotin has been reported to cause a positive bias, interpret results relative to patient's use of biotin. Lab Interpretation (test Normal code = 71464-9) [facility] [id number] 21:00:45 Test Item Value Reference Range Interpretation Comments JAKY AM (test code = 10.5 ug/dL 4.5-23.0 0408885228) LIA (test code = LIA) Biotin has been reported to cause a positive bias, interpret results relative to patient's use of biotin. Lab Interpretation (test Normal code = 67843-0) [facility] [id number] 21:00:45 Test Item Value Reference Range Interpretation Comments JAKY AM (test code = 10.5 ug/dL 4.5-23.0 6044260335) LIA (test code = LIA) Biotin has been reported to cause a positive bias, interpret results relative to patient's use of biotin. Lab Interpretation (test Normal code = 32741-5) [facility] [id number] 21:00:45 Test Item Value Reference Range Interpretation Comments JAKY AM (test code = 10.5 ug/dL 4.5-23.0 3856331370) LIA (test code = LIA) Biotin has been reported to cause a positive bias, interpret results relative to patient's use of biotin. Lab Interpretation (test Normal code = 20075-8) [id number]:23:21 Test Item Value Reference Range Interpretation Comments FERRITIN (test code = 16.4 ng/mL 6.0-137.0 0382712658) LIA (test code = LIA) Biotin has been reported to cause a negative bias, interpret results relative to patient's use of biotin. Lab Interpretation (test Normal code = 31602-8) [facility] [id number] 20:23:21 Test Item Value Reference Range Interpretation Comments FERRITIN (test code = 16.4 ng/mL 6.0-137.0 1591009674) LIA (test code = LIA) Biotin has been reported to cause a negative bias, interpret results relative to patient's use of biotin. Lab Interpretation (test Normal code = 40291-4) [facility] [id number] 20:23:21 Test Item Value Reference Range Interpretation Comments FERRITIN (test code = 16.4 ng/mL 6.0-137.0 8930126211) LIA (test code = LIA) Biotin has been reported to cause a negative bias, interpret results relative to patient's use of biotin. Lab Interpretation (test Normal code = 34840-9) [facility] [id number] 20:23:21 Test Item Value Reference Range Interpretation Comments FERRITIN (test code = 16.4 ng/mL 6.0-137.0 1494444099) LIA (test code = LIA) Biotin has been reported to cause a negative bias, interpret results relative to patient's use of biotin. Lab Interpretation (test Normal code = 87957-5) [facility] [id number] 19:56:57 Test Item Value Reference Range Interpretation Comments IRON (test code = 5524844124) 112 ug/dL 50-160 TIBC (test code = 3000270972) 461 ug/dL 250-410 H % FE SAT (test code = 5622445547) 24 % 20-50 Lab Interpretation (test code = Abnormal 21342-2) [facility]2023-04-12 19:56:57 Test Item Value Reference Range Interpretation Comments IRON (test code = 3196032183) 112 ug/dL 50-160 TIBC (test code = 2605882810) 461 ug/dL 250-410 H % FE SAT (test code = 7262415985) 24 % 20-50 Lab Interpretation (test code = Abnormal 10418-2) [facility]2023-04-12 19:56:57 Test Item Value Reference Range Interpretation Comments IRON (test code = 4597216065) 112 ug/dL 50-160 TIBC (test code = 1166910152) 461 ug/dL 250-410 H % FE SAT (test code = 5322869177) 24 % 20-50 Lab Interpretation (test code = Abnormal 29815-1) [id number] 19:56:57 Test Item Value Reference Range Interpretation Comments IRON (test code = 0888340272) 112 ug/dL 50-160 TIBC (test code = 9204004417) 461 ug/dL 250-410 H % FE SAT (test code = 2389262231) 24 % 20-50 Lab Interpretation (test code = Abnormal 24032-6) [facility]. METABOLIC PANEL (20818)2022-08-17 19:47:51 Test Item Value Reference Range Interpretation Comments NA (test code = 139 mmol/L 135-145 3074178705) K (test code = 4.0 mmol/L 3.5-5.0 0745826724) CL (test code = 103 mmol/L 98-108 8445553729) CO2 TOTAL (test code 23 mmol/L 23-31 = 5835862578) AGAP (test code = 13 2-16 0072873565) BUN (test code = 11 mg/dL 7-23 0267209316) GLUCOSE (test code = 85 mg/dL 70-110 3570489286) CREATININE (test code 0.54 mg/dL 0.50-1.04 = 1181667054) TOTAL BILI (test code 1.0 mg/dL 0.1-1.1 = 9307398879) CALCIUM (test code = 9.3 mg/dL 8.6-10.6 7898014362) T PROTEIN (test code 7.5 g/dL 6.3-8.2 = 5874837991) ALBUMIN (test code = 4.7 g/dL 3.5-5.0 5212287764) ALK PHOS (test code = 71 U/L 34-122 5811012340) ALTv (test code = 16 U/L 5-35 1742-6) AST(SGOT) (test code 19 U/L 13-40 = 9234753440) eGFR (test code = 139.9 mL/min/1.73m2 9511816018) LIA (test code = LIA) Association of [...] or urine or abnormalities in imaging tests). [place] [id number] 19:47:30 Test Item Value Reference Range Interpretation Comments IRON (test code = 9258638208) 111 ug/dL 50-160 Lab Interpretation (test code = Normal 35955-2) [place] [id number] 19:47:30 Test Item Value Reference Range Interpretation Comments IRON (test code = 4123340015) 111 ug/dL 50-160 Lab Interpretation (test code = Normal 01797-4) [place] [id number] 19:47:30 Test Item Value Reference Range Interpretation Comments IRON (test code = 1591306668) 111 ug/dL 50-160 Lab Interpretation (test code = Normal 55514-9) [place] [id number] 19:47:30 Test Item Value Reference Range Interpretation Comments IRON (test code = 2728722617) 111 ug/dL 50-160 Lab Interpretation (test code = Normal 34501-0) [facility] WITH [id number] 19:05:16 Test Item Value Reference Range Interpretation Comments WBC (test code = 6.01 See_Comment [Automated 6690-2) message] The sy stem which generated this result transmitted reference range : 4.30 - 11.10 10*3/?L. The reference range was not used to interpret this result as normal/abnormal . RBC (test code = 4.80 See_Comment [Automated 789-8) message] The sy stem [...] (test code = 35.6 fL 39.0-49.9 L 32190-3) RDW-CV (test code = 11.7 % 12.0-15.5 L 788-0) PLT (test code = 226 See_Comment [Automated 777-3) message] The sy stem which generated this result transmitted reference range : 166 - 358 10*3/ ?L. The reference r vimal was not used to interpret this result as normal/abnormal . MPV (test code = 11.2 fL 9.5-12.9 65823-9) NRBC/100 WBC (test 0.0 See_Comment [Automat ed code = 0555058717) message] The system which generated this result transmitted reference range : 0.0 - 10.0 /100 WBCs. The refer ence range was not u sed to interpret th is result as normal/abnormal . NRBC x10^3 (test code See_Comment [Auto mated = 6566888859) message] The s ystem which generated this result transmitted reference range : 10*3/?L. The reference range was not used to interpret this result as normal/abnormal . GRAN MAT (NEUT) % 65.4 % (test code = 770-8) IMM GRAN % (test code 0.20 % = 2043835818) LYMPH % (test code = 26.6 % 736-9) MONO % (test code = 6.0 % 5905-5) EOS % (test code = 1.0 % 713-8) BASO % (test code = 0.8 % 706-2) GRAN MAT x10^3(ANC) 3.93 10*3/uL 1.88-7.09 (test code = 2811610950) IMM GRAN x10^3 (test 0.00-0.06 code = 6593518260) LYMPH x10^3 (test code 1.60 10*3/uL 1.32-3.29 = 731-0) MONO x10^3 (test code 0.36 10*3/uL 0.33-0.92 = 742-7) EOS x10^3 (test code = 0.06 10*3/uL 0.03-0.39 711-2) BASO x10^3 (test code 0.05 10*3/uL 0.01-0.07 = 704-7) Lab Interpretation Abnormal (test code = 60925-7) [facility] acute hospital [id number] 20:56:00 Test Item Value Reference Range Interpretation Comments POCT PREG (test code = 1605) Negative On board controls acceptable with C Yes Line (test code = 3574) POCT PREG LOT # (test code = 3575) POCT PREG TEST DATE (test code = 3576) Lab Interpretation (test code = Normal 13472-4) [facility] acute hospital MOLECULAR [id number] 23:56:46 Test Item Value Reference Range Interpretation Comments POCT Molecular FluA (test code = Negative Negative 30266-0) POCT Molecular FluB (test code = Negative Negative 12676-6) Lab Interpretation (test code = Normal 72678-5) General acute hospital MOLECULAR [id number] 23:56:46 Test Item Value Reference Range Interpretation Comments POCT Molecular FluA (test code = Negative Negative 29584-3) POCT Molecular FluB (test code = Negative Negative 60234-9) Lab Interpretation (test code = Normal 97978-8) [facility] acute hospital MOLECULAR [id number] 23:56:46 Test Item Value Reference Range Interpretation Comments POCT Molecular FluA (test code = Negative Negative 22184-7) POCT Molecular FluB (test code = Negative Negative 76112-5) Lab Interpretation (test code = Normal 09186-8) [facility] acute hospital MOLECULAR [id number] 23:50:02 Test Item Value Reference Range Interpretation Comments POCT Molecular Strep (test code = Negative Negative 33871-2) Lab Interpretation (test code = Normal 04114-1) General acute hospital MOLECULAR [id number] 23:50:02 Test Item Value Reference Range Interpretation Comments POCT Molecular Strep (test code = Negative Negative 66331-1) Lab Interpretation (test code = Normal 22599-8) General acute hospital MOLECULAR [id number] 23:50:02 Test Item Value Reference Range Interpretation Comments POCT Molecular Strep (test code = Negative Negative 07655-0) Lab Interpretation (test code = Normal 52294-7) General acute hospital WITH [id number] 11:33:07 Test Item Value Reference Range Interpretation [...] (test code = 38.1 fL 39.0-49.9 L 23884-5) RDW-CV (test code = 12.4 % 12.0-15.5 788-0) PLT (test code = See_Comment [Automated 777-3) message] The sy stem which generated this result transmitted reference range : 166 - 358 10*3/ ?L. The reference r vimal was not used to interpret this result as normal/abnormal . MPV (test code = 10.6 fL 9.5-12.9 73592-1) NRBC/100 WBC (test See_Comment [Automat ed code = 8982897622) message] The system which generated this result transmitted reference range : 0.0 - 10.0 /100 WBCs. The refer ence range was not u sed to interpret th is result as normal/abnormal . NRBC x10^3 (test code See_Comment [Auto mated = 1991646239) message] The s ystem which generated this result transmitted reference range : 10*3/?L. The reference range was not used to interpret this result as normal/abnormal . GRAN MAT (NEUT) % 42.2 % (test code = 770-8) IMM GRAN % (test code 0.30 % = 8688474540) LYMPH % (test code = 40.3 % 736-9) MONO % (test code = 14.6 % 5905-5) EOS % (test code = 2.0 % 713-8) BASO % (test code = 0.6 % 706-2) GRAN MAT x10^3(ANC) 1.48 10*3/uL 1.88-7.09 L (test code = 6221230543) IMM GRAN x10^3 (test 0.00-0.06 code = 8281466754) LYMPH x10^3 (test code 1.41 10*3/uL 1.32-3.29 = 731-0) MONO x10^3 (test code 0.51 10*3/uL 0.33-0.92 = 742-7) EOS x10^3 (test code = 0.07 10*3/uL 0.03-0.39 711-2) BASO x10^3 (test code 0.01-0.07 = 704-7) REACT LYMPHS (test Rare code = 3342167960) Lab Interpretation Abnormal (test code = 63540-3) [facility] acute hospital WITH [id number] 11:33:07 Test Item Value Reference Range Interpretation [...] (test code = 38.1 fL 39.0-49.9 L 66633-5) RDW-CV (test code = 12.4 % 12.0-15.5 788-0) PLT (test code = See_Comment [Automated 777-3) message] The sy stem which generated this result transmitted reference range : 166 - 358 10*3/ ?L. The reference r vimal was not used to interpret this result as normal/abnormal . MPV (test code = 10.6 fL 9.5-12.9 40934-3) NRBC/100 WBC (test See_Comment [Automat ed code = 3903277932) message] The system which generated this result transmitted reference range : 0.0 - 10.0 /100 WBCs. The refer ence range was not u sed to interpret th is result as normal/abnormal . NRBC x10^3 (test code See_Comment [Auto mated = 1562502950) message] The s ystem which generated this result transmitted reference range : 10*3/?L. The reference range was not used to interpret this result as normal/abnormal . GRAN MAT (NEUT) % 42.2 % (test code = 770-8) IMM GRAN % (test code 0.30 % = 5692400755) LYMPH % (test code = 40.3 % 736-9) MONO % (test code = 14.6 % 5905-5) EOS % (test code = 2.0 % 713-8) BASO % (test code = 0.6 % 706-2) GRAN MAT x10^3(ANC) 1.48 10*3/uL 1.88-7.09 L (test code = 6741447716) IMM GRAN x10^3 (test 0.00-0.06 code = 8293220190) LYMPH x10^3 (test code 1.41 10*3/uL 1.32-3.29 = 731-0) MONO x10^3 (test code 0.51 10*3/uL 0.33-0.92 = 742-7) EOS x10^3 (test code = 0.07 10*3/uL 0.03-0.39 711-2) BASO x10^3 (test code 0.01-0.07 = 704-7) REACT LYMPHS (test Rare code = 9457496593) Lab Interpretation Abnormal (test code = 73570-1) [facility] acute hospital WITH [id number] 11:33:07 Test Item Value Reference Range Interpretation [...] (test code = 38.1 fL 39.0-49.9 L 96731-2) RDW-CV (test code = 12.4 % 12.0-15.5 788-0) PLT (test code = See_Comment [Automated 777-3) message] The sy stem which generated this result transmitted reference range : 166 - 358 10*3/ ?L. The reference r vimal was not used to interpret this result as normal/abnormal . MPV (test code = 10.6 fL 9.5-12.9 41319-9) NRBC/100 WBC (test See_Comment [Automat ed code = 7400098412) message] The system which generated this result transmitted reference range : 0.0 - 10.0 /100 WBCs. The refer ence range was not u sed to interpret th is result as normal/abnormal . NRBC x10^3 (test code See_Comment [Auto mated = 3252409155) message] The s ystem which generated this result transmitted reference range : 10*3/?L. The reference range was not used to interpret this result as normal/abnormal . GRAN MAT (NEUT) % 42.2 % (test code = 770-8) IMM GRAN % (test code 0.30 % = 1707936738) LYMPH % (test code = 40.3 % 736-9) MONO % (test code = 14.6 % 5905-5) EOS % (test code = 2.0 % 713-8) BASO % (test code = 0.6 % 706-2) GRAN MAT x10^3(ANC) 1.48 10*3/uL 1.88-7.09 L (test code = 1662024966) IMM GRAN x10^3 (test 0.00-0.06 code = 5003872547) LYMPH x10^3 (test code 1.41 10*3/uL 1.32-3.29 = 731-0) MONO x10^3 (test code 0.51 10*3/uL 0.33-0.92 = 742-7) EOS x10^3 (test code = 0.07 10*3/uL 0.03-0.39 711-2) BASO x10^3 (test code 0.01-0.07 = 704-7) REACT LYMPHS (test Rare code = 9064302828) Lab Interpretation Abnormal (test code = 66427-0) [facility] METABOLIC PANEL (NA, K, CL, CO2, GLUCOSE, BUN, CREATININE, CA)2022-03-21 11:20:02 Test Item Value Reference Range Interpretation Comments NA (test code = 139 mmol/L 135-145 3062385464) K (test code = 3.8 mmol/L 3.5-5.0 4820658748) CL (test code = 113 mmol/L 98-108 H 9045039219) CO2 TOTAL (test code = 18 mmol/L 23-31 L 4299013501) AGAP (test code = 2-16 4014820808) BUN (test code = 8 mg/dL 7-23 7489023923) GLUCOSE (test code = 92 mg/dL 70-110 1153292800) CREATININE (test code = 0.56 mg/dL 0.50-1.04 1562309367) CALCIUM (test code = 8.1 mg/dL 8.6-10.6 L 3747154397) eGFR (test code = mL/min/1.73m2 4760828533) LIA (test code = LIA) Association of [...] tests). Lab Interpretation Abnormal (test code = 91444-9) [facility] METABOLIC PANEL (NA, K, CL, CO2, GLUCOSE, BUN, CREATININE, CA)2022-03-21 11:20:02 Test Item Value Reference Range Interpretation Comments NA (test code = 139 mmol/L 135-145 7710948307) K (test code = 3.8 mmol/L 3.5-5.0 1644640510) CL (test code = 113 mmol/L 98-108 H 9688330219) CO2 TOTAL (test code = 18 mmol/L 23-31 L 3571704927) AGAP (test code = 2-16 5955555053) BUN (test code = 8 mg/dL 7-23 3440475501) GLUCOSE (test code = 92 mg/dL 70-110 3486738236) CREATININE (test code = 0.56 mg/dL 0.50-1.04 0276835233) CALCIUM (test code = 8.1 mg/dL 8.6-10.6 L 3446346101) eGFR (test code = mL/min/1.73m2 1596708737) LIA (test code = LIA) Association of [...] tests). Lab Interpretation Abnormal (test code = 52853-6) [facility] METABOLIC PANEL (NA, K, CL, CO2, GLUCOSE, BUN, CREATININE, CA)2022-03-21 11:20:02 Test Item Value Reference Range Interpretation Comments NA (test code = 139 mmol/L 135-145 7326355830) K (test code = 3.8 mmol/L 3.5-5.0 9572546014) CL (test code = 113 mmol/L 98-108 H 6813072724) CO2 TOTAL (test code = 18 mmol/L 23-31 L 1491160234) AGAP (test code = 2-16 4466539728) BUN (test code = 8 mg/dL 7-23 4079908638) GLUCOSE (test code = 92 mg/dL 70-110 9955630698) CREATININE (test code = 0.56 mg/dL 0.50-1.04 1636634771) CALCIUM (test code = 8.1 mg/dL 8.6-10.6 L 4512404869) eGFR (test code = mL/min/1.73m2 0113811177) LIA (test code = LIA) Association of [...] tests). Lab Interpretation Abnormal (test code = 99157-8) [facility]2022-11-14 04:23:39 Test Item Value Reference Range Interpretation Comments MAGNESIUM (test code = 0010286016) 2.2 mg/dL 1.7-2.4 Lab Interpretation (test code = Normal 49159-3) [facility]2022-11-14 04:23:39 Test Item Value Reference Range Interpretation Comments PHOSPHORUS (test code = 4498555557) 3.4 mg/dL 2.5-5.0 Lab Interpretation (test code = Normal 62507-6) [facility] [id number] 04:23:39 Test Item Value Reference Range Interpretation Comments PHOSPHORUS (test code = 8935517862) 3.4 mg/dL 2.5-5.0 Lab Interpretation (test code = Normal 77553-0) [facility]2022-11-14 04:23:39 Test Item Value Reference Range Interpretation Comments MAGNESIUM (test code = 6570585806) 2.2 mg/dL 1.7-2.4 Lab Interpretation (test code = Normal 03549-8) [facility]2022-11-14 04:23:39 Test Item Value Reference Range Interpretation Comments PHOSPHORUS (test code = 6922414811) 3.4 mg/dL 2.5-5.0 Lab Interpretation (test code = Normal 02304-6) [facility] [id number] 04:23:39 Test Item Value Reference Range Interpretation Comments MAGNESIUM (test code = 9401726309) 2.2 mg/dL 1.7-2.4 Lab Interpretation (test code = Normal 94765-2) [facility] [id number] 23:51:10 Test Item Value Reference Range Interpretation Comments WBC (test code = See_Comment L [Automated 2490-2) message] The sy stem which generated this result transmitted reference range : 4.30 - 11.10 10*3/?L. The reference range was not used to interpret this result as normal/abnormal . RBC (test code = See_Comment [Automated 789-8) message] The sy stem [...] (test code = 38.6 fL 39.0-49.9 L 85618-3) RDW-CV (test code = 12.5 % 12.0-15.5 788-0) PLT (test code = See_Comment [Automated 777-3) message] The sy stem which generated this result transmitted reference range : 166 - 358 10*3/ ?L. The reference r vimal was not used to interpret this result as normal/abnormal . MPV (test code = 10.4 fL 9.5-12.9 62452-5) NRBC/100 WBC (test See_Comment [Automat ed code = 1166124105) message] The system which generated this result transmitted reference range : 0.0 - 10.0 /100 WBCs. The refer ence range was not u sed to interpret th is result as normal/abnormal . NRBC x10^3 (test code See_Comment [Auto mated = 2548231898) message] The s ystem which generated this result transmitted reference range : 10*3/?L. The reference range was not used to interpret this result as normal/abnormal . GRAN MAT (NEUT) % 49.0 % (test code = 770-8) IMM GRAN % (test code 0.30 % = 0616804109) LYMPH % (test code = 35.0 % 736-9) MONO % (test code = 13.3 % 5905-5) EOS % (test code = 1.6 % 713-8) BASO % (test code = 0.8 % 706-2) GRAN MAT x10^3(ANC) 1.85 10*3/uL 1.88-7.09 L (test code = 3381826716) IMM GRAN x10^3 (test 0.00-0.06 code = 6465283467) LYMPH x10^3 (test code 1.32 10*3/uL 1.32-3.29 = 731-0) MONO x10^3 (test code 0.50 10*3/uL 0.33-0.92 = 742-7) EOS x10^3 (test code = 0.06 10*3/uL 0.03-0.39 711-2) BASO x10^3 (test code 0.03 10*3/uL 0.01-0.07 = 704-7) Lab Interpretation Abnormal (test code = 81507-4) [facility]30 Test Item Value Reference Range Interpretation Comments KEPPRA (test code = 34 ug/mL 12-46 3451006879) LIA (test code = LIA) Therapeutic range: 12-46 ?g/mL ? ?Toxic: Not well established.Test developed and characteristics determined by [facility]. Lab Interpretation Normal (test code = 43320-9) [facility] 23:49:30 Test Item Value Reference Range Interpretation Comments KEPPRA (test code = 34 ug/mL 12-46 1719628840) LIA (test code = LIA) Therapeutic range: 12-46 ?g/mL ? ?Toxic: Not well established.Test developed and characteristics determined by [facility]. Lab Interpretation Normal (test code = 45681-2) [facility] 23:49:30 Test Item Value Reference Range Interpretation Comments KEPPRA (test code = 34 ug/mL 12-46 8750740800) LIA (test code = LIA) Therapeutic range: 12-46 ?g/mL ? ?Toxic: Not well established.Test developed and characteristics determined by [facility]. Lab Interpretation Normal (test code = 17742-1) [facility] [id number] 23:45:17 Test Item Value Reference Range Interpretation Comments PREG SERUM (test code Negative = 4892977826) LIA (test code = LIA) Less than 10 IU/L. ?If low titer or ectopic is suspected, resubmit specimen in 48-72 hours. [facility] [id number] 23:45:17 Test Item Value Reference Range Interpretation Comments PREG SERUM (test code Negative = 6086145353) LIA (test code = LIA) Less than 10 IU/L. ?If low titer or ectopic is suspected, resubmit specimen in 48-72 hours. [facility] [id number] 23:45:17 Test Item Value Reference Range Interpretation Comments PREG SERUM (test code Negative = 4105171207) LIA (test code = LIA) Less than 10 IU/L. ?If low titer or ectopic is suspected, resubmit specimen in 48-72 hours. [facility]. METABOLIC PANEL ([id number])2022-03-20 23:45:07 Test Item Value Reference Range Interpretation Comments NA (test code = 140 mmol/L 135-145 4007846115) K (test code = 3.6 mmol/L 3.5-5.0 0187398769) CL (test code = 108 mmol/L 98-108 7954246141) CO2 TOTAL (test code 24 mmol/L 23-31 = 1232302278) AGAP (test code = 2-16 9701074766) BUN (test code = 10 mg/dL 7-23 2568960411) GLUCOSE (test code = 82 mg/dL 70-110 9516277092) CREATININE (test code 0.62 mg/dL 0.50-1.04 = 3345415862) TOTAL BILI (test code 1.1 mg/dL 0.1-1.1 = 5999445284) CALCIUM (test code = 8.8 mg/dL 8.6-10.6 4306624947) T PROTEIN (test code 6.9 g/dL 6.3-8.2 = 1255886680) ALBUMIN (test code = 4.4 g/dL 3.5-5.0 5584578346) ALK PHOS (test code = 78 U/L 34-122 6928761747) ALTv (test code = 19 U/L 5-35 2-6) AST(SGOT) (test code 21 U/L 13-40 = 7171998292) eGFR (test code = mL/min/1.73m2 1758924704) LIA (test code = LIA) Association of [...] or urine or abnormalities in imaging tests). [facility]. METABOLIC PANEL (51504)2022-03-20 23:45:07 Test Item Value Reference Range Interpretation Comments NA (test code = 140 mmol/L 135-145 0440713995) K (test code = 3.6 mmol/L 3.5-5.0 0496237096) CL (test code = 108 mmol/L 98-108 0647801892) CO2 TOTAL (test code 24 mmol/L 23-31 = 0949279054) AGAP (test code = 2-16 0834540996) BUN (test code = 10 mg/dL 7-23 7522639324) GLUCOSE (test code = 82 mg/dL 70-110 9910227712) CREATININE (test code 0.62 mg/dL 0.50-1.04 = 8873631113) TOTAL BILI (test code 1.1 mg/dL 0.1-1.1 = 2792606019) CALCIUM (test code = 8.8 mg/dL 8.6-10.6 1859849918) T PROTEIN (test code 6.9 g/dL 6.3-8.2 = 5332510337) ALBUMIN (test code = 4.4 g/dL 3.5-5.0 7055123832) ALK PHOS (test code = 78 U/L 34-122 4093725925) ALTv (test code = 19 U/L 5-35 1742-6) AST(SGOT) (test code 21 U/L 13-40 = 1679075739) eGFR (test code = mL/min/1.73m2 4606773818) LIA (test code = LIA) Association of [...] or urine or abnormalities in imaging tests). [facility]. METABOLIC PANEL ([id number])2022-03-20 23:45:07 Test Item Value Reference Range Interpretation Comments NA (test code = 140 mmol/L 135-145 4220896401) K (test code = 3.6 mmol/L 3.5-5.0 9236272671) CL (test code = 108 mmol/L 98-108 7938308310) CO2 TOTAL (test code 24 mmol/L 23-31 = 5291563233) AGAP (test code = 2-16 3266040224) BUN (test code = 10 mg/dL 7-23 9494010036) GLUCOSE (test code = 82 mg/dL 70-110 4137407714) CREATININE (test code 0.62 mg/dL 0.50-1.04 = 0566571781) TOTAL BILI (test code 1.1 mg/dL 0.1-1.1 = 4479672263) CALCIUM (test code = 8.8 mg/dL 8.6-10.6 [id number]) T PROTEIN (test code 6.9 g/dL 6.3-8.2 = [id number]) ALBUMIN (test code = 4.4 g/dL 3.5-5.0 0369052210) ALK PHOS (test code = 78 U/L 34-122 9374122965) ALTv (test code = 19 U/L 5-35 2-6) AST(SGOT) (test code 21 U/L 13-40 = 5436789738) eGFR (test code = mL/min/1.73m2 4977949473) LIA (test code = LIA) Association of [...] or urine or abnormalities in imaging tests). [facility] acute hospital [id number] 23:11:00 Test Item Value Reference Range Interpretation Comments POCT PREG (test code = 1605) negative On board controls acceptable with present C Line (test code = 3574) POCT PREG LOT # (test code = 3575) [id number] POCT PREG TEST DATE (test code = 3576) Lab Interpretation (test code = Normal 44072-2) [facility], [id number] 22:55:05 Test Item Value Reference Range Interpretation Comments PREG SERUM (test code Negative = [id number]) LIA (test code = LIA) Less than 10 IU/L. ?If low titer or ectopic is suspected, resubmit specimen in 48-72 hours. [facility]20[facility]-30 21:48:29 Test Item Value Reference Range Interpretation Comments POCT GLU (test code = [id number]) 96 mg/dL 70-110 Lab Interpretation (test code = Normal 91689-2) [facility]"
[2022-10-08 22:06] LABS: MCV 86.1 fL (80-100); MPV 8.6 fL (7.6-11.3); RBC Red Blood Cell Count 4.65 M/uL (3.86-4.86)
[2022-10-08] MEDS ORDERED: PHENYTOIN ER 100 MG CAP PO ONE (23:31)
--- NOTE | 2022-10-09 00:14 | EDPHYS ---
Physician Documentation [facility] Name: Nona Lee Age: 22 yrs Sex: Female : 2000 Arrival Date: 10/08/2022 Time: 20:52 Bed 8 Private MD: ED Physician Say Cruz HPI: 10/09 05:01 This 22 yrs old Female presents to ER via EMS with complaints of Probable kdr Seizure. 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 kdr She is on Dilantin and Keppra. Patient reportedly was recently documented as COVID-positive and then subsequently had a seizure. Patient denies missing any doses of her medications or any other precipitating factors. Patient is at her baseline at the time of initial interview. She did ultimately admit that she had not been taking her Dilantin for several days due to her nausea and vomiting. Onset: The symptoms/episode began/occurred suddenly, just prior to arrival. Severity of symptoms: At their worst the symptoms were incapacitating in the emergency department the symptoms have resolved. The patient has experienced similar episodes in the past, multiple times. The patient has not recently seen a physician. 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 - Social history:: Smoking status: Patient denies any tobacco usage or history of. ROS: 10/09 05:01 Constitutional: Negative for fever, chills, and weight loss, Eyes: Negative for injury, kdr pain, redness, and discharge, ENT: Negative for injury, pain, and discharge, Neck: Negative for injury, pain, and swelling, Cardiovascular: Negative for chest pain, palpitations, and edema, Respiratory: Negative for shortness of breath, cough, wheezing, and pleuritic chest pain, Abdomen/GI: Negative for abdominal pain, nausea, vomiting, diarrhea, and constipation, Back: Negative for injury and pain, : Negative for injury, bleeding, discharge, and swelling, MS/Extremity: Negative for injury and deformity, Skin: Negative for injury, rash, and discoloration, Psych: Negative for depression, anxiety, suicide ideation, homicidal ideation, and hallucinations, Allergy/Immunology: Negative for hives, rash, and allergies, Endocrine: Negative for neck swelling, polydipsia, polyuria, polyphagia, and marked weight changes, Hematologic/Lymphatic: Negative for swollen nodes, abnormal bleeding, and unusual bruising. Neuro: Positive for altered mental status, loss of consciousness, seizure activity. Exam: 05:01 Constitutional: This is a well developed, well nourished patient who is awake, alert, kdr and in no acute distress. Head/Face: Normocephalic, atraumatic. Eyes: Pupils equal round and reactive to light, extra-ocular motions intact. Lids and lashes normal. Conjunctiva and sclera are non-icteric and not injected. Cornea within normal limits. Periorbital areas with no swelling, redness, or edema. Neck: Trachea midline, no thyromegaly or masses palpated, and no cervical lymphadenopathy. Supple, full range of motion without nuchal rigidity, or vertebral point tenderness. No Meningismus. Chest/axilla: Normal chest wall appearance and motion. Nontender with no deformity. No lesions are appreciated. Cardiovascular: Regular rate and rhythm with a normal S1 and S2. No gallops, murmurs, or rubs. Normal PMI, no JVD. No pulse deficits. Respiratory: Lungs have equal breath sounds bilaterally, clear to auscultation and percussion. No rales, rhonchi or wheezes noted. No increased work of breathing, no retractions or nasal flaring. Abdomen/GI: Soft, non-tender, with normal bowel sounds. No distension or tympany. No guarding or rebound. No evidence of tenderness throughout. Back: No spinal tenderness. No costovertebral tenderness. Full range of motion. Skin: Warm, dry with normal turgor. Normal color with no rashes, no lesions, and no evidence of cellulitis. MS/ Extremity: Pulses equal, no cyanosis. Neurovascular intact. Full, normal range of motion. Neuro: Awake and alert, GCS 15, oriented to person, place, time, and situation. Cranial nerves II-XII grossly intact. Motor strength 5/5 in all extremities. Sensory grossly intact. Cerebellar exam normal. Normal gait. Psych: Awake, alert, with orientation to person, place and time. Behavior, mood, and affect are within normal limits. Vital Signs: 10/08 21:37 BP 108 / 69; Pulse 90; Resp 15; Temp 99.4; Pulse Ox 100% ; Weight 53.52 kg; Height 5 vc1 ft. 1 in. ; Pain 0/10; 22:00 BP 114 / 75; Pulse 92; Resp 26; Pulse Ox 100% on R/A; vc1 23:01 BP 109 / 76; Pulse 91; Resp 26; Pulse Ox 100% ; vc1 10/09 00:14 BP 109 / 73; Pulse 87; Resp 27; Pulse Ox 100% ; vc1 10/08 21:37 Body Mass Index 22.30 (53.52 kg, 154.94 cm) vc1 10/08 21:37 Pain Scale: Adult vc1 MDM: 00:13 Patient medically screened. kdr 05:01 Data reviewed: vital signs, nurses notes, lab test result(s). kdr 10/08 21:28 Order name: Dilantin; Complete Time: 23:09 kdr 10/08 21:30 Order name: CBC w/o diff; Complete Time: 23:09 kdr Administered Medications: 10/08 23:21 Not Given (Physician Discretion): Phenytoin IVPB 1 grams IVPB once ll3 23:27 Drug: Phenytoin PO 300 mg Route: PO; ll3 Disposition Summary: 10/09/22 00:13 Discharge Ordered Location: Home kdr Problem: new kdr Symptoms: have improved kdr Condition: Stable kdr Diagnosis - Other seizures kdr Followup: kdr - With: Private Physician - When: 2 - 3 days - Reason: If symptoms return, Further diagnostic work-up, Recheck today's complaints, Continuance of care, Re-evaluation by your physician Discharge Instructions: - Discharge Summary Sheet kdr - Seizure, Adult, Mraw-[id number] kdr Forms: - Medication Reconciliation Form kdr - Thank You Letter kdr Prescriptions: - Zofran 4 mg Oral Tablet - take 1 tablet by ORAL route every 4-6 hours As needed; 16 tablet; Refills: 0, kdr Product Selection Permitted Signatures: Dispatcher [employer] Say Paiz MD MD kdr Loubet, Lynsea RN RN ll3 Jocelin Dawkins RN RN vc1
--- NOTE | 2022-10-09 00:14 | ER ---
Nurse's Notes [facility] Name: Nona Lee Age: 22 yrs Sex: Female : 2000 Arrival Date: 10/08/2022 Time: 20:52 Bed 8 Private MD: Diagnosis: Other seizures Presentation: 10/08 21:37 Chief complaint: EMS states: We were called out for a seizure on a covid positive girl vc1 with a history of brain tumors, when we arrived she appeared post ictal. Coronavirus screen: Vaccine status: Patient reports receiving the 2nd dose of the covid vaccine. Modern Client denies travel out of the [place] in the last 14 days. Client presents with at least one sign or symptom that may indicate coronavirus-19. Client reports previous positive COVID test result. Ebola Screen: Patient negative for fever greater than or equal to 101.5 degrees Fahrenheit, and additional compatible Ebola Virus Disease symptoms Patient denies exposure to infectious person. Patient denies travel to an Ebola-affected area in the 21 days before illness onset. No symptoms or risks identified at this time. Initial Sepsis Screen: Does the patient meet any 2 criteria? No. Patient's initial sepsis screen is negative. Does the patient have a suspected source of infection? Yes: Other: covid positive. Risk Assessment: Do you want to hurt yourself or someone else? Patient reports no desire to harm self or others. Onset of symptoms was October 08, 2022. 21:37 Method Of Arrival: EMS: [facility] vc1 21:37 Acuity: LUBNA 3 vc1 21:37 Activity prior to arrival: seizure. vc1 Triage Assessment: 21:00 General: Appears in no apparent distress. comfortable, Behavior is calm, cooperative, vc1 appropriate for age. 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 - Social history:: Smoking status: Patient denies any tobacco usage or history of. Screenin:42 [facility] ED Fall Risk Assessment (Adult) History of falling in the last 3 months, vc1 including since admission Yes- physiologic fall (2 pts) Confusion or Disorientation No (0 pts) Intoxicated or Sedated No (0 pts) Impaired Gait No (0 pts) Mobility Assist Device Used No (0 pt) Altered Elimination No (0 pt) Score/Fall Risk Level 0 - 2 = Low Risk Oriented to surroundings, Maintained a safe environment, Educated pt \T\ family on fall prevention, incl call for assistance when getting out of bed. Abuse screen: Denies threats or abuse. Nutritional screening: No deficits noted. Tuberculosis screening: No symptoms or risk factors identified. Assessment: 22:09 Reassessment: Patient and/or family updated on plan of care and expected duration. Pain vc1 level reassessed. Patient is alert, oriented x 3, equal unlabored respirations, skin warm/dry/pink. Pain: Denies pain. Neuro: Level of Consciousness is awake, alert, obeys commands, Oriented to person, place, time, situation, Appropriate for age. 23:01 Reassessment: No changes from previously documented assessment. Patient and/or family vc1 updated on plan of care and expected duration. Pain level reassessed. Patient is alert, oriented x 3, equal unlabored respirations, skin warm/dry/pink. 10/09 00:14 Reassessment: No changes from previously documented assessment. Patient and/or family vc1 updated on plan of care and expected duration. Pain level reassessed. Patient is alert, oriented x 3, equal unlabored respirations, skin warm/dry/pink. Vital Signs: 10/08 21:37 BP 108 / 69; Pulse 90; Resp 15; Temp 99.4; Pulse Ox 100% ; Weight 53.52 kg; Height 5 vc1 ft. 1 in. ; Pain 0/10; 22:00 BP 114 / 75; Pulse 92; Resp 26; Pulse Ox 100% on R/A; vc1 23:01 BP 109 / 76; Pulse 91; Resp 26; Pulse Ox 100% ; vc1 10/09 00:14 BP 109 / 73; Pulse 87; Resp 27; Pulse Ox 100% ; vc1 10/08 21:37 Body Mass Index 22.30 (53.52 kg, 154.94 cm) vc1 10/08 21:37 Pain Scale: Adult vc1 ED Course: 10/08 20:53 Patient arrived in ED. sb4 20:57 Say Cruz MD is Attending Physician. kdr 21:37 Jocelin Dawkins, RN is Primary Nurse. vc1 21:40 Triage completed. vc1 21:42 Arm band placed on right wrist. vc1 21:42 Patient has correct armband on for positive identification. Bed in low position. Call vc1 light in reach. Client placed on continuous cardiac and pulse oximetry monitoring. NIBP monitoring applied. 10/09 00:27 No provider procedures requiring assistance completed. IV discontinued, intact, vc1 bleeding controlled, No redness/swelling at site. Pressure dressing applied. Administered Medications: 10/08 23:21 Not Given (Physician Discretion): Phenytoin IVPB 1 grams IVPB once ll3 23:27 Drug: Phenytoin PO 300 mg Route: PO; ll3 Medication: 21:42 VIS not applicable for this client. vc1 Outcome: 10/09 00:13 Discharge ordered by . kdr 00:27 Discharged to home ambulatory, with family. vc1 00:27 Condition: good 00:27 Discharge instructions given to patient, family, Instructed on discharge instructions, follow up and referral plans. medication usage, Demonstrated understanding of instructions, follow-up care, medications, Prescriptions given X 1. 00:28 Patient left the ED. vc1 Signatures: Say Cruz MD MD kdr Loubet, Lynsea RN RN ll3 Jocelin Dawkins RN RN vc1 Shilpa Munson, PA-C PA-C sb4
[2022-10-09 02:00] VITALS: O2SAT 100
[2022-10-09 02:01] VITALS: TEMP 99.4
[2022-10-09 02:04] VITALS: BP 109/73
== END 2022-10-09 00:28 | disposition home or self-care (01) ==
LOC: ER 20:52
DX: G40.89 Other seizures (principal); Z86.011 Personal history of benign neoplasm of the brain; Z88.8 Allergy status to other drugs, medicaments and biological substances
CPT/HCPCS: 36415; 80185; 85027; 99284

== ENCOUNTER 2022-12-14 15:02 | Emergency (ER) | payer BC ==
--- OUTSIDE RECORDS SUMMARY | 2022-12-14 15:31 | XMS REPORT | Continuity of Care Document ---
:2000 Author Organization [facility] t Address [address] [place] [address] [place] [id number] Care Team Providers Name Role Phone Axel Parra MD Primary Care Physician KAVITHA MAC Attending Clinician Unavailable TRISTEN MESSER Attending Clinician Unavailable LESLEY LI Attending Clinician Unavailable AXEL PARRA Attending Clinician Unavailable JUAN CASTREJON Attending Clinician Unavailable DO JUAN Attending Clinician Unavailable KEITH GARCIA Attending Clinician Unavailable ROSY RIOJAS Attending Clinician Unavailable Rosy Riojas MD Attending Clinician Axel Parra MD Attending Clinician Kavitha Mac MD Attending Clinician 2, Adc Lab Attending Clinician Unavailable KADY JEROME Attending Clinician Unavailable Kady Jerome MD Attending Clinician JEANNINE SHELL Attending Clinician Unavailable Lily Jon MD Attending Clinician Tristen Messer MD Attending Clinician Yue THORNTON, Barbara Bajwa Attending Clinician Unavailable ALANNAH VASQUEZ Attending Clinician Unavailable ALANNAH VASQUEZ Attending Clinician Unavailable Alannah Vasquez DO Attending Clinician Doctor Unassigned, [place] Attending Clinician Unavailable Russ THORNTON, Jesenia De Leon Attending Clinician Unavailable MAGGI EMANUEL Attending Clinician Unavailable Unknown, Attending Attending Clinician Unavailable Jenae SPLITTER HEAD, Maggi Attending Clinician Dionisio SPLITTER HEAD, Thalia C Attending Clinician THALIA NICHOLE Attending Clinician Unavailable Lesley Li MD Attending Clinician BROOKS SEGURA Attending Clinician Unavailable Key SMALLS Attending Clinician Unavailable Key Martínez Attending Clinician Anusha Lainez MD Attending Clinician Axel Parra MD Attending Clinician Lab, Ang - Db Attending Clinician Unavailable ANA BOLES Attending Clinician Unavailable Ramana GOMEZP, Ana Attending Clinician Suleman ALVARADO, Jeannine Sibley Attending Clinician Angélica THORNTON, Kathryn Carlin Attending Clinician Felicitas Khanna MD Attending Clinician FELICITAS KHANNA Attending Clinician Unavailable CARMEN TALBERT Attending Clinician Unavailable Jennifer Dennison MD Attending Clinician Sarthak Stern MD Attending Clinician Carmen Talbert MD Attending Clinician Monet Goodwin MD Attending Clinician Jagdish THORNTON, Mike Bajwa Attending Clinician Unavailable BILLY HEARD Attending Clinician Unavailable BILLY HEARD Attending Clinician Unavailable Christina ALVARADO, Cecilia Cuenca Attending Clinician SY TIMMONS Attending Clinician Unavailable Mayo Henry MD Attending Clinician Sy Timmons MD Attending Clinician MONSE CHAVEZ Attending Clinician Unavailable Monse Chavez DO Attending Clinician JUSTIN BARRETO Attending Clinician Unavailable Justin Barreto DO Attending Clinician BÁRBARA GILLIS Attending Clinician Unavailable Pcp-Lab Attending Clinician Unavailable Bárbara Gillis MD Attending Clinician Perla Knight MD Attending Clinician Luis Eduardo Myers DO Attending Clinician Lilo Mendieta MD Attending Clinician LILO MENDIETA Attending Clinician Unavailable Kristy THORNTON, Carleen Gold Attending Clinician Unavailable Ranjit Robb MD Attending Clinician Only, Adc Test Attending Clinician Unavailable Brooks Sims MD, Neeraj Whitt Attending Clinician [phone] CECILIA VASQUEZ Attending Clinician Unavailable MILLY RIOS Attending Clinician Unavailable Milly Huerta Attending Clinician [phone] ALBERT RUIZ Attending Clinician Unavailable KAVITHA MAC Admitting Clinician Unavailable Key SMALLS Admitting Clinician Unavailable [...] Policy Number Effective Date Expiration Date S [facility] [id number] 2021 EMPLOYEE PLAN 00:00:00 BC/BS PPO [id number] 2021 00:00:00 [employer] [place] [id number] 2022 WOMEN 00:00:00 [employer] [place] [id number] 2021 00:00:00 Problems Condition Condition Condition Status Onset Resolution Last Treating Co mments Source Name Details Category Date Date Treatment Clinician Date Questionab Questionab Disease Active U nivers le le 7-27 [place] 00 [facility] urogenital urogenital Br anch anomaly anomaly Muscle Muscle Disease Active Univers soreness soreness 6-30 ity of 00:: [place] [facility] Agoraphobi Agoraphobi Disease Active U nivers a a 6-30 ity of 00:00: [place] [facility] Stress at Stress at Disease Active Uni vers home home 6-30 ity of 00:00: [place] [facility] COVID-19 COVID-19 Disease Active Unive rs virus virus 6-07 [place] Acute Acute Disease Active [facility] respirator respirator 6-07 it y of y disease y disease 00:[place] due to due to 00 [facility] COVID-19 COVID-19 [place] virus virus SOBOE SOBOE Disease Active Univers (shortness (shortness 6-07 it y of of breath of breath 00:[place] exertion) exertion) Bran ch Nausea and Nausea and Disease Active U nivers vomiting vomiting 6-07 ity of in adult in adult 00:00: [place] [facility] Disease Active Univers control control 5-09 ity of counseling counseling [place] [facility] [place] Excessive, Excessive, Disease Active U nivers frequent frequent 5-09 ity of and and 00:00: [place] irregular irregular 00 Medi mackenzie menstruati menstruati Br anch on on Superficia Superficia Disease Active U nivers l bruising l bruising 5-09 it y of 00:00: [place] [facility] Seizure Seizure Disease Active 2021-05 [...] Branch Seizure-li Seizure-li Disease Active U fracisco brock ke 4-11 ity of activity activity 00:00: [place] [facility] 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 [place] ic seizure ic seizure 00 Me dical Branch Seizure Seizure Disease Active Univers disorder disorder 3-07 ity of 00:00: [place] [facility] Numbness Numbness Disease Active Unive rs and and 6-17 ity of tingling tingling 00:00: [place] of both of both 00 Medical upper upper Branch extremitie extremitie s s 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:[place] cyst cyst 00 [place] Numbness Numbness Disease Active Unive rs 5-04 ity of 00:00: [place] [facility] 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 00:00: [place] [facility] Allergies, Adverse Reactions, Alerts Allergy Allergy Status Severity Reaction(s) Onset Inactive Treating Comm ents Source Name Type Date Date Clinician FUROSEMI DRUG Active ITCHING Univers DE INGREDI 8-04 ity of 00:00: [place] [facility] Furosemi Propensi Active Other - See Numbness Univers de ty to comments 12-09 of ity of adverse 00:00: extremiti [place] reaction 00 es Medical s Branch DIVALPRO DRUG Active Other-Cmnt Univ ers EX [...] 00:00: [place] reaction 00 Medical s Branch Divalpro Propensi Active Other (See Joint Me thodi ex ty to Comments) 10-[address] Sodium adverse 00:00: Hospita reaction 00 l s to drug Fospheny Propensi Active Rash Method i toin ty to 10-07 st adverse 00:00: Hospita reaction 00 l s to drug NO KNOWN Drug Active Univers ALLERGIE Class ity of S [facility] Family History Family Member Diagnosis Comments Start Date Stop Date Source Natural [facility] Natural mother Heart disease [facility] Natural mother Hyperlipidemia [facility] Natural mother [facility] Natural mother Other - see comments [facility] Natural mother Coronary Heart Univer sity of Disease [facility] Maternal Other - see comments Univ ersity of grandfather [facility] Maternal Hypertension University o f grandmother [facility] Family member [facility] Family member [facility] Social History Social Habit Start Date Stop Date Quantity Comments Source History of tobacco Passive smoker Un iversity of use [place] [facility] [place] History SDOH University o f Alcohol Std Drinks [place] [facility] History SDOH University o f Alcohol Binge [place] [facility] History SDOH University o f Alcohol Comment [place] [facility] Gender identity [facility] Tobacco use and 2022-10-26 2022-10-26 Smokeless [facility] 00:[facility] 00:00:00 tobacco non-user Hospital Alcohol intake 2022-10-26 2022-10-26 Lifetime [facility] 00:[facility]:00 non-drinker Hospital (finding) History of Social 2022-10-26 2022-10-[address] function 00:00:00 00:00:00 Hospital Exposure to 2022-09-03 2022-09-13 Not sure [facility] SARS-CoV-2 (event) 00:00:00 13:21:00 [facility] History SDOH 2021-09-10 2021-09-10 1 University o f Alcohol Frequency 00:00:00 [facility]00:00 [facility] [place] Education 2020-09-07 2020-09-07 12 [facility] 00:00:00 00:00:00 [facility] Sex Assigned At [birth year] [facility] Smoking Status Start Date Stop Date Source Never smoked tobacco [facility] Tobacco smoking consumption [facility] Branch Medications Ordered Filled Start Stop Current Ordering Indication Dosage Frequency Signature Comments Components Source Medication Medication Date Date Medication? Clinician (SIG) Name Name escitalopra Yes [id number] 20mg Take 1 Univers m oxalate 12-14 tablet by ity o f 20 mg 00:00: mouth in [place] tablet 00 the Medical morning. [place] escitalopra Yes [id number] 20mg Take 1 Univers m oxalate 12-14 tablet by ity o f 20 mg 00:00: mouth in [place] tablet 00 the Medical morning. [place] furosemide Yes PRN, Univers (LASIX) 12-06 Starting ity of injection 21:50: on Mon [place] 00 12/06/22 at [facility] [address] [place] [address] Until Discontinu ed, Routine, Intra-op furosemide 2022- No PRN, Univer s (LASIX) 12-06 Starting ity of injection 21:50: 09:13 on [facility] 00 :46 12/06/22 at [facility] [id number] Until Mon12/07/22 at 0413, Routine, Intra-op LORazepam Yes PRN, Univers (ATIVAN) 12-06 Starting ity of tablet 19:17: on [facility] 14 12/06/22 at [id number] Until Discontinu ed, Routine, Intra-op LORazepam 2022- No PRN, Univers (ATIVAN) 12-06 Starting ity of tablet 19:17: 09:13 on Mon 14 :46 12/06/22 at Medical 1417, Branch Until Mon12/07/22 at 0413, Routine, Intra-op levETIRAcet 2022- No 500mg Q.5D Take 1 Me thodi am (KEPPRA) 10-[address] 500 MG 13:42: 00:00 (500 mg Hospita tablet 18 :00 total) by l mouth 2 (two) times a day. levETIRAcet 2023- Yes 500mg Q.5D Take 1 Me thodi am (KEPPRA) 10-[address] 500 MG 00:00: 04:59 (500 mg Hospita tablet 00 :00 total) by l mouth 2 (two) times a day. phenytoin 2023- Yes 300mg QD Take 3 Meth laura (DILANTIN) 10-[address] 100 MG ER 00:00: 04:59 (300 mg Hosp ed capsule 00 :00 total) by l mouth daily. iopamidol 2022- No [id number] 45mL 45 mL, Univers (ISOVUE 10-14 Intravenou ity o f 370-500 mL) 18:15: 17:22 s, ONCE, 1 [place] injection 00 :00 dose, On Medica l 45 mL Mon10/14/22 Branch at 1315, Routine Miscellaneo Yes [id number] U07.1/J06. [facility] 10-14 9: ity of Supply Kit 00:00: Dispense # [place] 00 1 [place] [facility] Respironic [place] s (okay for alternativ e brand) for nebulizer treatment Miscellaneo Yes [id number] U07.1/J06. [facility] 10-14 9: ity of Supply Kit 00:00: Dispense # [place] 00 1 [facility] for nebulizer treatment Miscellaneo Yes [id number] U07.1/J06. [facility] 10-14 9: ity of Supply Kit 00:00: Dispense # [place] 00 1 [facility] Medical Respironic Branch s (okay for alternativ e brand) for nebulizer treatment [place]iscellaneo 2023-0 Yes [id number] U07.1/J06. [facility] 10-14 9: ity of Supply Kit 00:00: Dispense # [place] 00 1 [place] Respironic Branch s (okay for alternativ e brand) for nebulizer treatment Miscellaneo 3-0 Yes [id number] U07.1/J06. [facility] 10-14 9: ity of Supply Kit 00:00: Dispense # [place] 00 1 [place] Respironic Branch s (okay for alternativ e brand) for nebulizer treatment Miscellaneo 3-0 Yes [id number] U07.1/J06. [facility] 10-14 9: ity of Supply Kit 00:00: Dispense # [place] 00 1 [place] Respironic Branch s (okay for alternativ e brand) for nebulizer treatment Miscellaneo 3-0 Yes [id number] U07.1/J06. [facility] 10-14 9: ity of Supply Kit 00:00: Dispense # [place] 00 1 [place] Respironic Branch s (okay for alternativ e brand) for nebulizer treatment Miscellaneo 3-0 Yes [id number] U07.1/J06. [facility] 10-14 9: ity of Supply Kit 00:00: Dispense # [place] 00 1 [facility] Respironic Branch s (okay for alternativ e brand) for nebulizer treatment Miscellaneo 2023-0 Yes [id number] U07.1/J06. [facility] 10-14 9: ity of Supply Kit 00:00: Dispense # [place] 00 1 [place] Respironic Branch s (okay for alternativ e brand) for nebulizer treatment Miscellaneo 2023-0 Yes [id number] U07.1/J06. [facility] 10-14 9: ity of Supply Kit 00:00: Dispense # [place] 00 1 [place] Respironic Branch s (okay for alternativ e brand) for nebulizer treatment Miscellaneo 2023-0 Yes [id number] U07.1/J06. [facility] 10-14 9: ity of Supply Kit 00:00: Dispense # [place] 00 1 [place] Respironic Branch s (okay for alternativ e brand) for nebulizer treatment Miscellaneo 2023-0 Yes [id number] U07.1/J06. [facility] 10-14 9: ity of Supply Kit 00:00: Dispense # [place] 00 1 [place] Respironic Branch s (okay for alternativ e brand) for nebulizer treatment Miscellaneo 2023-0 Yes [id number] U07.1/J06. [facility] 10-14 9: ity of Supply Kit 00:00: Dispense # [place] 00 1 [place] Respironic Branch s (okay for alternativ e brand) for nebulizer treatment Miscellaneo 2023-0 Yes [id number] U07.1/J06. [facility] 10-14 9: ity of Supply Kit 00:00: Dispense # [place] 00 1 [place] [facility] Respironic Branch s (okay for alternativ e brand) for nebulizer treatment Miscellaneo 2023-0 Yes [id number] U07.1/J06. [facility] 10-14 9: ity of Supply Kit 00:00: Dispense # [place] 00 1 [facility] Respironic Branch s (okay for alternativ e brand) for nebulizer treatment Miscellaneo 2023-0 Yes [id number] U07.1/J06. [facility] 10-14 9: ity of Supply Kit 00:00: Dispense # [place] 00 1 [facility] Respironic Branch s (okay for alternativ e brand) for nebulizer treatment Miscellaneo 2023-0 Yes [id number] U07.1/J06. [facility] 10-14 9: ity of Supply Kit 00:00: Dispense # [place] 00 1 [facility] Respironic Branch s (okay for alternativ e brand) for nebulizer treatment Miscellaneo 2023-0 Yes [id number] U07.1/J06. [facility] 10-14 9: ity of Supply Kit 00:00: Dispense # [place] 00 1 [place] [facility] Respironic Branch s (okay for alternativ e brand) for nebulizer treatment Miscellaneo 2022-0 Yes [id number] U07.1/J06. [facility] 10-14 9: ity of Supply Kit 00:00: Dispense # [place] 00 1 [place] [facility] Respironic Branch s (okay for alternativ e brand) for nebulizer treatment Miscellaneo 2022-0 Yes [id number] U07.1/J06. [facility] 10-14 9: ity of Supply Kit 00:00: Dispense # [place] 00 1 [place] Respironic Branch s (okay for alternativ e brand) for nebulizer treatment Miscellaneo 2022-0 Yes [id number] U07.1/J06. [facility] 10-14 9: ity of Supply Kit 00:00: Dispense # [place] 00 1 [facility] Resp[facility] s (okay for alternativ e brand) for nebulizer treatment Miscellaneo 2022-0 Yes [id number] U07.1/J06. [facility] 10-14 9: ity of Supply Kit 00:00: Dispense # [place] 00 1 [facility] Resp[facility] s (okay for alternativ e brand) for nebulizer treatment Miscellaneo 2022-0 Yes [id number] U07.1/J06. [facility] 10-14 9: ity of Supply Kit 00:00: Dispense # [place] 00 1 [place] [facility] Respiron[facility] Branch s (okay for alternativ e brand) for nebulizer treatment Miscellaneo 2022-0 Yes [id number] U07.1/J06. [facility] 10-14 9: ity of Supply Kit 00:00: Dispense # [place] 00 1 [facility] Respiron[facility] Branch s (okay for alternativ e brand) for nebulizer treatment Miscellaneo 2022-0 Yes [id number] U07.1/J06. [facility] 10-14 9: ity of Supply Kit 00:00: Dispense # [place] 00 1 [facility] Respiron[facility] Branch s (okay for alternativ e brand) for nebulizer treatment Miscellaneo 2022-0 Yes [id number] U07.1/J06. [facility] 10-14 9: ity of Supply Kit 00:00: Dispense # [place] 00 1 [place] [facility] Respiron[facility] Branch s (okay for alternativ e brand) for nebulizer treatment Miscellaneo Yes [id number] U07.1/J06. [facility] 10-14 9: ity of Supply Kit 00:00: Dispense # [place] 00 1 [facility] Respiron[facility] Branch s (okay for alternativ e brand) for nebulizer treatment Miscellaneo Yes [id number] U07.1/J06. [facility] 10-14 9: ity of Supply Kit 00:00: Dispense # [place] 00 1 [place] [facility] Respironic Branch s (okay for alternativ e brand) for nebulizer treatment Miscellaneo Yes [id number] U07.1/J06. [facility] 10-14 9: ity of Supply Kit 00:00: Dispense # [place] 00 1 [facility] Resp[facility] s (okay for alternativ e brand) for nebulizer treatment Miscellaneo 0 Yes [id number] U07.1/J06. [facility] 10-14 9: ity of Supply Kit 00:00: Dispense # [place] 00 1 [place] Respironic Branch s (okay for alternativ e brand) for nebulizer treatment nirmatrelvi 2022-0 Yes [id number] 3{tbl} Take 3 Univers r-ritonavir 6-07 tablets by it y of (PAXLOVID, 00:00: mouth in [place] EUA,) 300 00 the Medical mg (150 mg morning Branch x 2)-100 mg and 3 tablet tablets in the evening. acetaminoph 2022-0 Yes [id number] 1{tbl} Take 1 Univers en 6-07 tablet by ity of (TYLENOL) 00:00: mouth [place] 325 mg Cap 00 every 6 Medica l (six) Branch hours as needed for Fever. Magnesium 2022-0 Yes [id number] 1{tbl} Take 1 Univers 250 mg Tab 6-07 tablet by ity of 00:00: mouth in [place] 00 the Medical morning. Branch Zinc 2022-0 Yes [id number] 1{tbl} Take 1 Univ ers Gluconate 6-07 tablet by ity o f 100 mg Tab 00:00: mouth in [place] 00 the Medical morning. Branch ascorbic 2022-0 Yes [id number] 500mg Take 1 U nivers acid, 6-07 tablet by ity of vitamin C, 00:00: mouth in [place] as (VITAMIN C) 00 the Medical 500 mg morning. Branch tablet proMETHazin 2022-0 Yes [id number] 12.5mg Take 1 Univers e 12.5 mg 6-07 tablet by ity o f tablet 00:00: mouth [place] 00 every 4 Medical (four) Branch hours as needed for Nausea and Vomiting (N/V). ipratropium 2022-0 Yes [id number] .5mg Inhale 2.5 Univers 0.02 % 6-07 mL every 6 ity of nebulizer 00:00: (six) [place] solution 00 hours as Medical needed for Branch Wheezing or Shortness of Breath. albuterol 2022-0 Yes [id number] 2.5mg Inhale 3 Univers 2.5 mg /3 6-07 mL every 4 ity of mL (0.083 00:00: (four) [place] %) 00 hours as Medical nebulizer needed for Bran ch solution Wheezing or Shortness of Breath. albuterol 2022- Yes [id number] 2{puff} Inhale 2 Univers 90 6-07 Puffs ity of mcg/actuati 00:00: every 6 [place] on inhaler 00 (six) Medical hours as Branch needed for Wheezing or Shortness of Breath. nirmatrelvi 2022-0 Yes [id number] 3{tbl} Take 3 Univers r-ritonavir 6-07 tablets by it y of (PAXLOVID, 00:00: mouth in [place] EUA,) 300 00 the Medical mg (150 mg morning Branch x 2)-100 mg and 3 tablet tablets in the evening. acetaminoph 2022-0 Yes [id number] 1{tbl} Take 1 Univers en 6-07 tablet by ity of (TYLENOL) 00:00: mouth [place] 325 mg Cap 00 every 6 Medica l (six) Branch hours as needed for Fever. Magnesium 2022-0 Yes [id number] 1{tbl} Take 1 Univers 250 mg Tab 6-07 tablet by ity of 00:00: mouth in [place] 00 the Medical morning. Branch Zinc 2022-0 Yes [id number] 1{tbl} Take 1 Univ ers Gluconate 6-07 tablet by ity o f 100 mg Tab 00:00: mouth in [place] 00 the Medical morning. Branch ascorbic 2022-0 Yes [id number] 500mg Take 1 U nivers acid, 6-07 tablet by ity of vitamin C, 00:00: mouth in [place] as (VITAMIN C) 00 the Medical 500 mg morning. Branch tablet proMETHazin 0 Yes [id number] 12.5mg Take 1 Univers e 12.5 mg 6-07 tablet by ity o f tablet 00:00: mouth [place] 00 every 4 Medical (four) Branch hours as needed for Nausea and Vomiting (N/V). ipratropium Yes [id number] .5mg Inhale 2.5 Univers 0.02 % 6-07 mL every 6 ity of nebulizer 00:00: (six) [place] solution 00 hours as Medical needed for Branch Wheezing or Shortness of Breath. albuterol Yes [id number] 2.5mg Inhale 3 Univers 2.5 mg /3 6-07 mL every 4 ity of mL (0.083 00:00: (four) [place] %) 00 hours as Medical nebulizer needed for Bran ch solution Wheezing or Shortness of Breath. albuterol Yes [id number] 2{puff} Inhale 2 Univers 90 6-07 Puffs ity of mcg/actuati 00:00: every 6 [place] on inhaler 00 (six) Medical hours as Branch needed for Wheezing or Shortness of Breath. nirmatrelvi 0 Yes [id number] 3{tbl} Take 3 Univers r-ritonavir 6-07 tablets by it y of (PAXLOVID, 00:00: mouth in [place] EUA,) 300 00 the Medical mg (150 mg morning Branch x 2)-100 mg and 3 tablet tablets in the evening. acetaminoph 0 Yes [id number] 1{tbl} Take 1 Univers en 6-07 tablet by ity of (TYLENOL) 00:00: mouth [place] 325 mg Cap 00 every 6 Medica l (six) Branch hours as needed for Fever. Magnesium 2022-0 Yes [id number] 1{tbl} Take 1 Univers 250 mg Tab 6-07 tablet by ity of 00:00: mouth in [place] 00 the Medical morning. Branch Zinc 2022-0 Yes [id number] 1{tbl} Take 1 Univ ers Gluconate 6-07 tablet by ity o f 100 mg Tab 00:00: mouth in [place] 00 the Medical morning. Branch ascorbic 2022-0 Yes [id number] 500mg Take 1 U nivers acid, 6-07 tablet by ity of vitamin C, 00:00: mouth in [place] as (VITAMIN C) 00 the Medical 500 mg morning. Branch tablet proMETHazin Yes [id number] 12.5mg Take 1 Univers e 12.5 mg 6-07 tablet by ity o f tablet 00:00: mouth [place] 00 every 4 Medical (four) Branch hours as needed for Nausea and Vomiting (N/V). ipratropium Yes [id number] .5mg Inhale 2.5 Univers 0.02 % 6-07 mL every 6 ity of nebulizer 00:00: (six) [place] solution 00 hours as Medical needed for Branch Wheezing or Shortness of Breath. albuterol Yes [id number] 2.5mg Inhale 3 Univers 2.5 mg /3 6-07 mL every 4 ity of mL (0.083 00:00: (four) [place] %) 00 hours as Medical nebulizer needed for Bran ch solution Wheezing or Shortness of Breath. albuterol Yes [id number] 2{puff} Inhale 2 Univers 90 6-07 Puffs ity of mcg/actuati 00:00: every 6 [place] on inhaler 00 (six) Medical hours as Branch needed for Wheezing or Shortness of Breath. nirmatrelvi 2022-0 Yes [id number] 3{tbl} Take 3 Univers r-ritonavir 6-07 tablets by it y of (PAXLOVID, 00:00: mouth in [place] EUA,) 300 00 the Medical mg (150 mg morning Branch x 2)-100 mg and 3 tablet tablets in the evening. acetaminoph 2022-0 Yes [id number] 1{tbl} Take 1 Univers en 6-07 tablet by ity of (TYLENOL) 00:00: mouth [place] 325 mg Cap 00 every 6 Medica l (six) Branch hours as needed for Fever. Magnesium 2022-0 Yes [id number] 1{tbl} Take 1 Univers 250 mg Tab 6-07 tablet by ity of 00:00: mouth in [place] 00 the Medical morning. Branch Zinc 2022-0 Yes [id number] 1{tbl} Take 1 Univ ers Gluconate 6-07 tablet by ity o f 100 mg Tab 00:00: mouth in [place] 00 the Medical morning. Branch ascorbic 2022-0 Yes [id number] 500mg Take 1 U nivers acid, 6-07 tablet by ity of vitamin C, 00:00: mouth in [place] as (VITAMIN C) 00 the Medical 500 mg morning. Branch tablet proMETHazin Yes [id number] 12.5mg Take 1 Univers e 12.5 mg 6-07 tablet by ity o f tablet 00:00: mouth [place] 00 every 4 Medical (four) Branch hours as needed for Nausea and Vomiting (N/V). ipratropium Yes [id number] .5mg Inhale 2.5 Univers 0.02 % 6-07 mL every 6 ity of nebulizer 00:00: (six) [place] solution 00 hours as Medical needed for Branch Wheezing or Shortness of Breath. albuterol Yes [id number] 2.5mg Inhale 3 Univers 2.5 mg /3 6-07 mL every 4 ity of mL (0.083 00:00: (four) [place] %) 00 hours as Medical nebulizer needed for Bran ch solution Wheezing or Shortness of Breath. albuterol Yes [id number] 2{puff} Inhale 2 [facility] 90 6-07 Puffs ity of mcg/actuati 00:00: every 6 [place] as on inhaler 00 (six) Medical hours as Branch needed for Wheezing or Shortness of Breath. nirmatrelvi 0 Yes [id number] 3{tbl} Take 3 [facility] r-ritonavir 6-07 tablets by it y of (PAXLOVID, 00:00: mouth in [place] as EUA,) 300 00 the Medical mg (150 mg morning Branch x 2)-100 mg and 3 tablet tablets in the evening. acetaminoph 2023-0 Yes [id number] 1{tbl} Take 1 [facility] en 6-07 tablet by ity of (TYLENOL) 00:00: mouth [place] 325 mg Cap 00 every 6 Medica l (six) Branch hours as needed for Fever. Magnesium 2022-0 Yes [id number] 1{tbl} Take 1 [facility] 250 mg Tab 6-07 tablet by ity of 00:00: mouth in [place] 00 the Medical morning. Branch Zinc 2022-0 Yes [id number] 1{tbl} Take 1 [facility] ers Gluconate 6-07 tablet by ity o f 100 mg Tab 00:00: mouth in [place] 00 the Medical morning. Branch ascorbic 2022-0 Yes [id number] 500mg Take 1 [facility] nivers acid, 6-07 tablet by ity of vitamin C, 00:00: mouth in [place] as (VITAMIN C) 00 the Medical 500 mg morning. Branch tablet proMETHazin 0 Yes [id number] 12.5mg Take 1 [facility] e 12.5 mg 6-07 tablet by ity o f tablet 00:00: mouth [place] 00 every 4 Medical (four) Branch hours as needed for Nausea and Vomiting (N/V). ipratropium Yes [id number] .5mg Inhale 2.5 [facility] 0.02 % 6-07 mL every 6 ity of nebulizer 00:00: (six) [place] solution 00 hours as Medical needed for Branch Wheezing or Shortness of Breath. albuterol 0 Yes [id number] 2.5mg Inhale 3 [facility] 2.5 mg /3 6-07 mL every 4 ity of mL (0.083 00:00: (four) [place] %) 00 hours as Medical nebulizer needed for Bran ch solution Wheezing or Shortness of Breath. albuterol 0 Yes [id number] 2{puff} Inhale 2 [facility] 90 6-07 Puffs ity of mcg/actuati 00:00: every 6 [place] as on inhaler 00 (six) Medical hours as Branch needed for Wheezing or Shortness of Breath. nirmatrelvi 2022-0 Yes [id number] 3{tbl} Take 3 [facility] r-ritonavir 6-07 tablets by it y of (PAXLOVID, 00:00: mouth in [place] as EUA,) 300 00 the Medical mg (150 mg morning Branch x 2)-100 mg and 3 tablet tablets in the evening. acetaminoph 2022-0 Yes [id number] 1{tbl} Take 1 [facility] en 6-07 tablet by ity of (TYLENOL) 00:00: mouth [place] 325 mg Cap 00 every 6 Medica l (six) Branch hours as needed for Fever. Magnesium 2022-0 Yes [id number] 1{tbl} Take 1 [facility] 250 mg Tab 6-07 tablet by ity of 00:00: mouth in [place] 00 the Medical morning. Branch Zinc 2022-0 Yes [id number] 1{tbl} Take 1 [facility] ers Gluconate 6-07 tablet by ity o f 100 mg Tab 00:00: mouth in [place] 00 the Medical morning. Branch ascorbic 2022-0 Yes [id number] 500mg Take 1 [facility] nivers acid, 6-07 tablet by ity of vitamin C, 00:00: mouth in [place] as (VITAMIN C) 00 the Medical 500 mg morning. Branch tablet proMETHazin 2022-0 Yes [id number] 12.5mg Take 1 [facility] e 12.5 mg 6-07 tablet by ity o f tablet 00:00: mouth [place] 00 every 4 Medical (four) Branch hours as needed for Nausea and Vomiting (N/V). ipratropium 2022-0 Yes [id number] .5mg Inhale 2.5 [facility] 0.02 % 6-07 mL every 6 ity of nebulizer 00:00: (six) [place] solution 00 hours as Medical needed for Branch Wheezing or Shortness of Breath. albuterol 2022-0 Yes [id number] 2.5mg Inhale 3 [facility] 2.5 mg /3 6-07 mL every 4 ity of mL (0.083 00:00: (four) [place] %) 00 hours as Medical nebulizer needed for Bran ch solution Wheezing or Shortness of Breath. albuterol 2022-0 Yes [id number] 2{puff} Inhale 2 [facility] 90 6-07 Puffs ity of mcg/actuati 00:00: every 6 [place] on inhaler 00 (six) Medical hours as Branch needed for Wheezing or Shortness of Breath. nirmatrelvi 2022-0 Yes [id number] 3{tbl} Take 3 [facility] r-ritonavir 6-07 tablets by it y of (PAXLOVID, 00:00: mouth in [place] EUA,) 300 00 the Medical mg (150 mg morning Branch x 2)-100 mg and 3 tablet tablets in the evening. acetaminoph 2022-0 Yes [id number] 1{tbl} Take 1 [facility] en 6-07 tablet by ity of (TYLENOL) 00:00: mouth [place] 325 mg Cap 00 every 6 Medica l (six) Branch hours as needed for Fever. Magnesium 2022-0 Yes [id number] 1{tbl} Take 1 [facility] 250 mg Tab 6-07 tablet by ity of 00:00: mouth in [place] 00 the Medical morning. Branch Zinc 2022-0 Yes [id number] 1{tbl} Take 1 [facility] ers Gluconate 6-07 tablet by ity o f 100 mg Tab 00:00: mouth in [place] 00 the Medical morning. Branch ascorbic 2022-0 Yes [id number] 500mg Take 1 [facility] nivers acid, 6-07 tablet by ity of vitamin C, 00:00: mouth in [place] as (VITAMIN C) 00 the Medical 500 mg morning. Branch tablet proMETHazin Yes [id number] 12.5mg Take 1 [facility] e 12.5 mg 6-07 tablet by ity o f tablet 00:00: mouth [place] 00 every 4 Medical (four) Branch hours as needed for Nausea and Vomiting (N/V). ipratropium 0 Yes [id number] .5mg Inhale 2.5 [facility] 0.02 % 6-07 mL every 6 ity of nebulizer 00:00: (six) [place] solution 00 hours as Medical needed for Branch Wheezing or Shortness of Breath. albuterol 0 Yes [id number] 2.5mg Inhale 3 [facility] 2.5 mg /3 6-07 mL every 4 ity of mL (0.083 00:00: (four) [place] %) 00 hours as Medical nebulizer needed for Bran ch solution Wheezing or Shortness of Breath. albuterol Yes [id number] 2{puff} Inhale 2 [facility] 90 6-07 Puffs ity of mcg/actuati 00:00: every 6 [place] on inhaler 00 (six) Medical hours as Branch needed for Wheezing or Shortness of Breath. nirmatrelvi 2023-0 Yes [id number] 3{tbl} Take 3 [facility] r-ritonavir 6-07 tablets by it y of (PAXLOVID, 00:00: mouth in [place] EUA,) 300 00 the Medical mg (150 mg morning Branch x 2)-100 mg and 3 tablet tablets in the evening. acetaminoph 2022-0 Yes [id number] 1{tbl} Take 1 [facility] en 6-07 tablet by ity of (TYLENOL) 00:00: mouth [place] 325 mg Cap 00 every 6 Medica l (six) Branch hours as needed for Fever. Magnesium 2022-0 Yes [id number] 1{tbl} Take 1 [facility] 250 mg Tab 6-07 tablet by ity of 00:00: mouth in [place] 00 the Medical morning. Branch Zinc 2022-0 Yes [id number] 1{tbl} Take 1 [facility] ers Gluconate 6-07 tablet by ity o f 100 mg Tab 00:00: mouth in [place] 00 the Medical morning. Branch ascorbic 2022-0 Yes [id number] 500mg Take 1 [facility] nivers acid, 6-07 tablet by ity of vitamin C, 00:00: mouth in [place] as (VITAMIN C) 00 the Medical 500 mg morning. Branch tablet proMETHazin 2022-0 Yes [id number] 12.5mg Take 1 [facility] e 12.5 mg 6-07 tablet by ity o f tablet 00:00: mouth [place] 00 every 4 Medical (four) Branch hours as needed for Nausea and Vomiting (N/V). ipratropium 2022-0 Yes [id number] .5mg Inhale 2.5 [facility] 0.02 % 6-07 mL every 6 ity of nebulizer 00:00: (six) [place] solution 00 hours as Medical needed for Branch Wheezing or Shortness of Breath. albuterol 2022-0 Yes [id number] 2.5mg Inhale 3 [facility] 2.5 mg /3 6-07 mL every 4 ity of mL (0.083 00:00: (four) [place] %) 00 hours as Medical nebulizer needed for Bran ch solution Wheezing or Shortness of Breath. albuterol 2022-0 Yes [id number] 2{puff} Inhale 2 [facility] 90 6-07 Puffs ity of mcg/actuati 00:00: every 6 [place] on inhaler 00 (six) Medical hours as Branch needed for Wheezing or Shortness of Breath. nirmatrelvi 2022-0 Yes [id number] 3{tbl} Take 3 [facility] r-ritonavir 6-07 tablets by it y of (PAXLOVID, 00:00: mouth in [place] EUA,) 300 00 the Medical mg (150 mg morning Branch x 2)-100 mg and 3 tablet tablets in the evening. acetaminoph 2022-0 Yes [id number] 1{tbl} Take 1 [facility] en 6-07 tablet by ity of (TYLENOL) 00:00: mouth [place] 325 mg Cap 00 every 6 Medica l (six) Branch hours as needed for Fever. Magnesium 2022-0 Yes [id number] 1{tbl} Take 1 [facility] 250 mg Tab 6-07 tablet by ity of 00:00: mouth in [place] 00 the Medical morning. Branch Zinc 2022-0 Yes [id number] 1{tbl} Take 1 [facility] ers Gluconate 6-07 tablet by ity o f 100 mg Tab 00:00: mouth in [place] 00 the Medical morning. Branch ascorbic 2022-0 Yes [id number] 500mg Take 1 [facility] nivers acid, 6-07 tablet by ity of vitamin C, 00:00: mouth in [place] as (VITAMIN C) 00 the Medical 500 mg morning. Branch tablet proMETHazin 2022-0 Yes [id number] 12.5mg Take 1 [facility] e 12.5 mg 6-07 tablet by ity o f tablet 00:00: mouth [place] 00 every 4 Medical (four) Branch hours as needed for Nausea and Vomiting (N/V). ipratropium 2022-0 Yes [id number] .5mg Inhale 2.5 [facility] 0.02 % 6-07 mL every 6 ity of nebulizer 00:00: (six) [place] solution 00 hours as Medical needed for Branch Wheezing or Shortness of Breath. albuterol 2022-0 Yes [id number] 2.5mg Inhale 3 [facility] 2.5 mg /3 6-07 mL every 4 ity of mL (0.083 00:00: (four) [place] %) 00 hours as Medical nebulizer needed for Bran ch solution Wheezing or Shortness of Breath. albuterol 2022-0 Yes [id number] 2{puff} Inhale 2 [facility] 90 6-07 Puffs ity of mcg/actuati 00:00: every 6 [place] as on inhaler 00 (six) Medical hours as Branch needed for Wheezing or Shortness of Breath. nirmatrelvi 2022-0 Yes [id number] 3{tbl} Take 3 [facility] r-ritonavir 6-07 tablets by it y of (PAXLOVID, 00:00: mouth in [place] EUA,) 300 00 the Medical mg (150 mg morning Branch x 2)-100 mg and 3 tablet tablets in the evening. acetaminoph 2022-0 Yes [id number] 1{tbl} Take 1 [facility] en 6-07 tablet by ity of (TYLENOL) 00:00: mouth [place] 325 mg Cap 00 every 6 Medica l (six) Branch hours as needed for Fever. Magnesium 2022-0 Yes [id number] 1{tbl} Take 1 [facility] 250 mg Tab 6-07 tablet by ity of 00:00: mouth in [place] 00 the Medical morning. Branch Zinc 2022-0 Yes [id number] 1{tbl} Take 1 [facility] ers Gluconate 6-07 tablet by ity o f 100 mg Tab 00:00: mouth in [place] 00 the Medical morning. Branch ascorbic 2022-0 Yes [id number] 500mg Take 1 [facility] nivers acid, 6-07 tablet by ity of vitamin C, 00:00: mouth in [place] as (VITAMIN C) 00 the Medical 500 mg morning. Branch tablet proMETHazin 2022-0 Yes [id number] 12.5mg Take 1 [facility] e 12.5 mg 6-07 tablet by ity o f tablet 00:00: mouth [place] 00 every 4 Medical (four) Branch hours as needed for Nausea and Vomiting (N/V). ipratropium 2022-0 Yes [id number] .5mg Inhale 2.5 [facility] 0.02 % 6-07 mL every 6 ity of nebulizer 00:00: (six) [place] solution 00 hours as Medical needed for Branch Wheezing or Shortness of Breath. albuterol 2022-0 Yes [id number] 2.5mg Inhale 3 [facility] 2.5 mg /3 6-07 mL every 4 ity of mL (0.083 00:00: (four) [place] %) 00 hours as Medical nebulizer needed for Bran ch solution Wheezing or Shortness of Breath. albuterol 2022-0 Yes [id number] 2{puff} Inhale 2 [facility] 90 6-07 Puffs ity of mcg/actuati 00:00: every 6 [place] as on inhaler 00 (six) Medical hours as Branch needed for Wheezing or Shortness of Breath. nirmatrelvi 2022-0 Yes [id number] 3{tbl} Take 3 [facility] r-ritonavir 6-07 tablets by it y of (PAXLOVID, 00:00: mouth in [place] as EUA,) 300 00 the Medical mg (150 mg morning Branch x 2)-100 mg and 3 tablet tablets in the evening. acetaminoph 2022-0 Yes [id number] 1{tbl} Take 1 [facility] en 6-07 tablet by ity of (TYLENOL) 00:00: mouth [place] 325 mg Cap 00 every 6 Medica l (six) Branch hours as needed for Fever. Magnesium 2022-0 Yes [id number] 1{tbl} Take 1 [facility] 250 mg Tab 6-07 tablet by ity of 00:00: mouth in [place] 00 the Medical morning. Branch Zinc 2022-0 Yes [id number] 1{tbl} Take 1 [facility] ers Gluconate 6-07 tablet by ity o f 100 mg Tab 00:00: mouth in [place] 00 the Medical morning. Branch ascorbic 2022-0 Yes [id number] 500mg Take 1 [facility] nivers acid, 6-07 tablet by ity of vitamin C, 00:00: mouth in [place] as (VITAMIN C) 00 the Medical 500 mg morning. Branch tablet proMETHazin 2022-0 Yes [id number] 12.5mg Take 1 [facility] e 12.5 mg 6-07 tablet by ity o f tablet 00:00: mouth [place] 00 every 4 Medical (four) Branch hours as needed for Nausea and Vomiting (N/V). ipratropium 2022-0 Yes [id number] .5mg Inhale 2.5 [facility] 0.02 % 6-07 mL every 6 ity of nebulizer 00:00: (six) [place] solution 00 hours as Medical needed for Branch Wheezing or Shortness of Breath. albuterol 2022-0 Yes [id number] 2.5mg Inhale 3 [facility] 2.5 mg /3 6-07 mL every 4 ity of mL (0.083 00:00: (four) [place] %) 00 hours as Medical nebulizer needed for Bran ch solution Wheezing or Shortness of Breath. albuterol 0 Yes [id number] 2{puff} Inhale 2 [facility] 90 6-07 Puffs ity of mcg/actuati 00:00: every 6 [place] as on inhaler 00 (six) Medical hours as Branch needed for Wheezing or Shortness of Breath. nirmatrelvi 0 Yes [id number] 3{tbl} Take 3 [facility] r-ritonavir 6-07 tablets by it y of (PAXLOVID, 00:00: mouth in [place] as EUA,) 300 00 the Medical mg (150 mg morning Branch x 2)-100 mg and 3 tablet tablets in the evening. acetaminoph 2022-0 Yes [id number] 1{tbl} Take 1 [facility] en 6-07 tablet by ity of (TYLENOL) 00:00: mouth [place] 325 mg Cap 00 every 6 Medica l (six) Branch hours as needed for Fever. Magnesium 2022-0 Yes [id number] 1{tbl} Take 1 [facility] 250 mg Tab 6-07 tablet by ity of 00:00: mouth in [place] 00 the Medical morning. Branch Zinc 2022-0 Yes [id number] 1{tbl} Take 1 [facility] ers Gluconate 6-07 tablet by ity o f 100 mg Tab 00:00: mouth in [place] 00 the Medical morning. Branch ascorbic 2022-0 Yes [id number] 500mg Take 1 [facility] nivers acid, 6-07 tablet by ity of vitamin C, 00:00: mouth in [place] as (VITAMIN C) 00 the Medical 500 mg morning. Branch tablet proMETHazin 2022-0 Yes [id number] 12.5mg Take 1 [facility] e 12.5 mg 6-07 tablet by ity o f tablet 00:00: mouth [place] 00 every 4 Medical (four) Branch hours as needed for Nausea and Vomiting (N/V). ipratropium 2022-0 Yes [id number] .5mg Inhale 2.5 [facility] 0.02 % 6-07 mL every 6 ity of nebulizer 00:00: (six) [place] solution 00 hours as Medical needed for Branch Wheezing or Shortness of Breath. albuterol 2023-0 Yes [id number] 2.5mg Inhale 3 [facility] 2.5 mg /3 6-07 mL every 4 ity of mL (0.083 00:00: (four) [place] %) 00 hours as Medical nebulizer needed for Bran ch solution Wheezing or Shortness of Breath. albuterol 0 Yes [id number] 2{puff} Inhale 2 [facility] 90 6-07 Puffs ity of mcg/actuati 00:00: every 6 [place] as on inhaler 00 (six) Medical hours as Branch needed for Wheezing or Shortness of Breath. nirmatrelvi 0 Yes [id number] 3{tbl} Take 3 [facility] r-ritonavir 6-07 tablets by it y of (PAXLOVID, 00:00: mouth in [place] as EUA,) 300 00 the Medical mg (150 mg morning Branch x 2)-100 mg and 3 tablet tablets in the evening. acetaminoph 0 Yes [id number] 1{tbl} Take 1 [facility] en 6-07 tablet by ity of (TYLENOL) 00:00: mouth [place] 325 mg Cap 00 every 6 Medica l (six) Branch hours as needed for Fever. Magnesium 2022-0 Yes [id number] 1{tbl} Take 1 [facility] 250 mg Tab 6-07 tablet by ity of 00:00: mouth in [place] 00 the Medical morning. Branch Zinc 2022-0 Yes [id number] 1{tbl} Take 1 [facility] ers Gluconate 6-07 tablet by ity o f 100 mg Tab 00:00: mouth in [place] 00 the Medical morning. Branch ascorbic 2022-0 Yes [id number] 500mg Take 1 [facility] nivers acid, 6-07 tablet by ity of vitamin C, 00:00: mouth in [place] as (VITAMIN C) 00 the Medical 500 mg morning. Branch tablet proMETHazin 2022-0 Yes [id number] 12.5mg Take 1 [facility] e 12.5 mg 6-07 tablet by ity o f tablet 00:00: mouth [place] 00 every 4 Medical (four) Branch hours as needed for Nausea and Vomiting (N/V). ipratropium 0 Yes [id number] .5mg Inhale 2.5 [facility] 0.02 % 6-07 mL every 6 ity of nebulizer 00:00: (six) [place] solution 00 hours as Medical needed for Branch Wheezing or Shortness of Breath. albuterol 2022-0 Yes [id number] 2.5mg Inhale 3 [facility] 2.5 mg /3 6-07 mL every 4 ity of mL (0.083 00:00: (four) [place] %) 00 hours as Medical nebulizer needed for Bran ch solution Wheezing or Shortness of Breath. albuterol 2022-0 Yes [id number] 2{puff} Inhale 2 [facility] 90 6-07 Puffs ity of mcg/actuati 00:00: every 6 [place] as on inhaler 00 (six) Medical hours as Branch needed for Wheezing or Shortness of Breath. acetaminoph 2022-0 Yes [id number] 1{tbl} Take 1 [facility] en 6-07 tablet by ity of (TYLENOL) 00:00: mouth [place] 325 mg Cap 00 every 6 Medica l (six) Branch hours as needed for Fever. ascorbic 2022-0 Yes [id number] 500mg Take 1 U nivers acid, 6-07 tablet by ity of vitamin C, 00:00: mouth in [place] as (VITAMIN C) 00 the Medical 500 mg morning. Branch tablet ipratropium 2022-0 Yes [id number] .5mg Inhale 2.5 [facility] 0.02 % 6-07 mL every 6 ity of nebulizer 00:00: (six) [place] solution 00 hours as Medical needed for Branch Wheezing or Shortness of Breath. albuterol 2022-0 Yes [id number] 2.5mg Inhale 3 [facility] 2.5 mg /3 6-07 mL every 4 ity of mL (0.083 00:00: (four) [place] %) 00 hours as Medical nebulizer needed for Bran ch solution Wheezing or Shortness of Breath. albuterol 2022-0 Yes [id number] 2{puff} Inhale 2 [facility] 90 6-07 Puffs ity of mcg/actuati 00:00: every 6 [place] as on inhaler 00 (six) Medical hours as Branch needed for Wheezing or Shortness of Breath. acetaminoph 2022-0 Yes [id number] 1{tbl} Take 1 [facility] en 6-07 tablet by ity of (TYLENOL) 00:00: mouth [place] 325 mg Cap 00 every 6 Medica l (six) Branch hours as needed for Fever. ascorbic 2023-0 Yes [id number] 500mg Take 1 [facility] nivers acid, 6-07 tablet by ity of vitamin C, 00:00: mouth in [place] as (VITAMIN C) 00 the Medical 500 mg morning. Branch tablet ipratropium 3-0 Yes [id number] .5mg Inhale 2.5 [facility] 0.02 % 6-07 mL every 6 ity of nebulizer 00:00: (six) [place] solution 00 hours as Medical needed for Branch Wheezing or Shortness of Breath. albuterol 2022-0 Yes [id number] 2.5mg Inhale 3 [facility] 2.5 mg /3 6-07 mL every 4 ity of mL (0.083 00:00: (four) [place] %) 00 hours as Medical nebulizer needed for Bran ch solution Wheezing or Shortness of Breath. albuterol 2022-0 Yes [id number] 2{puff} Inhale 2 [facility] 90 6-07 Puffs ity of mcg/actuati 00:00: every 6 [place] as on inhaler 00 (six) Medical hours as Branch needed for Wheezing or Shortness of Breath. acetaminoph 2022-0 Yes [id number] 1{tbl} Take 1 [facility] en 6-07 tablet by ity of (TYLENOL) 00:00: mouth [place] 325 mg Cap 00 every 6 Medica l (six) Branch hours as needed for Fever. ascorbic 3-0 Yes [id number] 500mg Take 1 U nivers acid, 6-07 tablet by ity of vitamin C, 00:00: mouth in [place] as (VITAMIN C) 00 the Medical 500 mg morning. Branch tablet ipratropium 2022-0 Yes [id number] .5mg Inhale 2.5 [facility] 0.02 % 6-07 mL every 6 ity of nebulizer 00:00: (six) [place] solution 00 hours as Medical needed for Branch Wheezing or Shortness of Breath. albuterol 2022-0 Yes [id number] 2.5mg Inhale 3 [facility] 2.5 mg /3 6-07 mL every 4 ity of mL (0.083 00:00: (four) [place] %) 00 hours as Medical nebulizer needed for Bran ch solution Wheezing or Shortness of Breath. albuterol 2023-0 Yes [id number] 2{puff} Inhale 2 [facility] 90 6-07 Puffs ity of mcg/actuati 00:00: every 6 [place] as on inhaler 00 (six) Medical hours as Branch needed for Wheezing or Shortness of Breath. acetaminoph 2022-0 Yes [id number] 1{tbl} Take 1 [facility] en 6-07 tablet by ity of (TYLENOL) 00:00: mouth [place] 325 mg Cap 00 every 6 Medica l (six) Branch hours as needed for Fever. ascorbic 2022-0 Yes [id number] 500mg Take 1 U nivers acid, 6-07 tablet by ity of vitamin C, 00:00: mouth in [place] as (VITAMIN C) 00 the Medical 500 mg morning. Branch tablet ipratropium 2022-0 Yes [id number] .5mg Inhale 2.5 [facility] 0.02 % 6-07 mL every 6 ity of nebulizer 00:00: (six) [place] solution 00 hours as Medical needed for Branch Wheezing or Shortness of Breath. albuterol 2022-0 Yes [id number] 2.5mg Inhale 3 [facility] 2.5 mg /3 6-07 mL every 4 ity of mL (0.083 00:00: (four) [place] %) 00 hours as Medical nebulizer needed for Bran ch solution Wheezing or Shortness of Breath. albuterol 2022-0 Yes [id number] 2{puff} Inhale 2 [facility] 90 6-07 Puffs ity of mcg/actuati 00:00: every 6 [place] as on inhaler 00 (six) Medical hours as Branch needed for Wheezing or Shortness of Breath. acetaminoph 2022-0 Yes [id number] 1{tbl} Take 1 [facility] en 6-07 tablet by ity of (TYLENOL) 00:00: mouth [place] 325 mg Cap 00 every 6 Medica l (six) Branch hours as needed for Fever. ascorbic 3-0 Yes [id number] 500mg Take 1 U nivers acid, 6-07 tablet by ity of vitamin C, 00:00: mouth in [place] as (VITAMIN C) 00 the Medical 500 mg morning. Branch tablet ipratropium 2022-0 Yes [id number] .5mg Inhale 2.5 [facility] 0.02 % 6-07 mL every 6 ity of nebulizer 00:00: (six) [place] solution 00 hours as Medical needed for Branch Wheezing or Shortness of Breath. albuterol 2022-0 Yes [id number] 2.5mg Inhale 3 [facility] 2.5 mg /3 6-07 mL every 4 ity of mL (0.083 00:00: (four) [place] %) 00 hours as Medical nebulizer needed for Bran ch solution Wheezing or Shortness of Breath. albuterol 2022-0 Yes [id number] 2{puff} Inhale 2 [facility] 90 6-07 Puffs ity of mcg/actuati 00:00: every 6 [place] as on inhaler 00 (six) Medical hours as Branch needed for Wheezing or Shortness of Breath. acetaminoph 2022-0 Yes [id number] 1{tbl} Take 1 [facility] en 6-07 tablet by ity of (TYLENOL) 00:00: mouth [place] 325 mg Cap 00 every 6 Medica l (six) Branch hours as needed for Fever. ascorbic 2022-0 Yes [id number] 500mg Take 1 U nivers acid, 6-07 tablet by ity of vitamin C, 00:00: mouth in [place] as (VITAMIN C) 00 the Medical 500 mg morning. Branch tablet ipratropium 2022-0 Yes [id number] .5mg Inhale 2.5 [facility] 0.02 % 6-07 mL every 6 ity of nebulizer 00:00: (six) [place] solution 00 hours as Medical needed for Branch Wheezing or Shortness of Breath. albuterol 2022-0 Yes [id number] 2.5mg Inhale 3 [facility] 2.5 mg /3 6-07 mL every 4 ity of mL (0.083 00:00: (four) [place] %) 00 hours as Medical nebulizer needed for Bran ch solution Wheezing or Shortness of Breath. albuterol 2022-0 Yes [id number] 2{puff} Inhale 2 [facility] 90 6-07 Puffs ity of mcg/actuati 00:00: every 6 [place] as on inhaler 00 (six) Medical hours as Branch needed for Wheezing or Shortness of Breath. acetaminoph 2022-0 Yes [id number] 1{tbl} Take 1 [facility] en 6-07 tablet by ity of (TYLENOL) 00:00: mouth [place] 325 mg Cap 00 every 6 Medica l (six) Branch hours as needed for Fever. ascorbic 2023-0 Yes [id number] 500mg Take 1 U nivers acid, 6-07 tablet by ity of vitamin C, 00:00: mouth in [place] as (VITAMIN C) 00 the Medical 500 mg morning. Branch tablet ipratropium 3-0 Yes [id number] .5mg Inhale 2.5 [facility] 0.02 % 6-07 mL every 6 ity of nebulizer 00:00: (six) [place] solution 00 hours as Medical needed for Branch Wheezing or Shortness of Breath. albuterol 2022-0 Yes [id number] 2.5mg Inhale 3 [facility] 2.5 mg /3 6-07 mL every 4 ity of mL (0.083 00:00: (four) [place] %) 00 hours as Medical nebulizer needed for Bran ch solution Wheezing or Shortness of Breath. albuterol 2022-0 Yes [id number] 2{puff} Inhale 2 [facility] 90 6-07 Puffs ity of mcg/actuati 00:00: every 6 [place] as on inhaler 00 (six) Medical hours as Branch needed for Wheezing or Shortness of Breath. acetaminoph 2022-0 Yes [id number] 1{tbl} Take 1 [facility] en 6-07 tablet by ity of (TYLENOL) 00:00: mouth [place] 325 mg Cap 00 every 6 Medica l (six) Branch hours as needed for Fever. ascorbic 3-0 Yes [id number] 500mg Take 1 U nivers acid, 6-07 tablet by ity of vitamin C, 00:00: mouth in [place] as (VITAMIN C) 00 the Medical 500 mg morning. Branch tablet ipratropium 2022-0 Yes [id number] .5mg Inhale 2.5 [facility] 0.02 % 6-07 mL every 6 ity of nebulizer 00:00: (six) [place] solution 00 hours as Medical needed for Branch Wheezing or Shortness of Breath. albuterol 2022-0 Yes [id number] 2.5mg Inhale 3 [facility] 2.5 mg /3 6-07 mL every 4 ity of mL (0.083 00:00: (four) [place] %) 00 hours as Medical nebulizer needed for Bran ch solution Wheezing or Shortness of Breath. albuterol 2023-0 Yes [id number] 2{puff} Inhale 2 [facility] 90 6-07 Puffs ity of mcg/actuati 00:00: every 6 [place] as on inhaler 00 (six) Medical hours as Branch needed for Wheezing or Shortness of Breath. acetaminoph 2022-0 Yes [id number] 1{tbl} Take 1 [facility] en 6-07 tablet by ity of (TYLENOL) 00:00: mouth [place] 325 mg Cap 00 every 6 Medica l (six) Branch hours as needed for Fever. ascorbic 2022-0 Yes [id number] 500mg Take 1 U nivers acid, 6-07 tablet by ity of vitamin C, 00:00: mouth in [place] as (VITAMIN C) 00 the Medical 500 mg morning. Branch tablet ipratropium 2022-0 Yes [id number] .5mg Inhale 2.5 [facility] 0.02 % 6-07 mL every 6 ity of nebulizer 00:00: (six) [place] solution 00 hours as Medical needed for Branch Wheezing or Shortness of Breath. albuterol 2022-0 Yes [id number] 2.5mg Inhale 3 [facility] 2.5 mg /3 6-07 mL every 4 ity of mL (0.083 00:00: (four) [place] %) 00 hours as Medical nebulizer needed for Bran ch solution Wheezing or Shortness of Breath. albuterol 2022-0 Yes [id number] 2{puff} Inhale 2 [facility] 90 6-07 Puffs ity of mcg/actuati 00:00: every 6 [place] as on inhaler 00 (six) Medical hours as Branch needed for Wheezing or Shortness of Breath. acetaminoph 2022-0 Yes [id number] 1{tbl} Take 1 [facility] en 6-07 tablet by ity of (TYLENOL) 00:00: mouth [place] 325 mg Cap 00 every 6 Medica l (six) Branch hours as needed for Fever. ascorbic 3-0 Yes [id number] 500mg Take 1 U nivers acid, 6-07 tablet by ity of vitamin C, 00:00: mouth in [place] as (VITAMIN C) 00 the Medical 500 mg morning. Branch tablet ipratropium 2022-0 Yes [id number] .5mg Inhale 2.5 [facility] 0.02 % 6-07 mL every 6 ity of nebulizer 00:00: (six) [place] solution 00 hours as Medical needed for Branch Wheezing or Shortness of Breath. albuterol 2022-0 Yes [id number] 2.5mg Inhale 3 [facility] 2.5 mg /3 6-07 mL every 4 ity of mL (0.083 00:00: (four) [place] %) 00 hours as Medical nebulizer needed for Bran ch solution Wheezing or Shortness of Breath. albuterol 2022-0 Yes [id number] 2{puff} Inhale 2 [facility] 90 6-07 Puffs ity of mcg/actuati 00:00: every 6 [place] on inhaler 00 (six) Medical hours as Branch needed for Wheezing or Shortness of Breath. acetaminoph 2022-0 Yes [id number] 1{tbl} Take 1 [facility] en 6-07 tablet by ity of (TYLENOL) 00:00: mouth [place] 325 mg Cap 00 every 6 Medica l (six) Branch hours as needed for Fever. ascorbic 2022-0 Yes [id number] 500mg Take 1 U nivers acid, 6-07 tablet by ity of vitamin C, 00:00: mouth in [place] (VITAMIN C) 00 the Medical 500 mg morning. Branch tablet ipratropium 2022-0 Yes [id number] .5mg Inhale 2.5 [facility] 0.02 % 6-07 mL every 6 ity of nebulizer 00:00: (six) [place] solution 00 hours as Medical needed for Branch Wheezing or Shortness of Breath. albuterol 2022-0 Yes [id number] 2.5mg Inhale 3 [facility] 2.5 mg /3 6-07 mL every 4 ity of mL (0.083 00:00: (four) [place] %) 00 hours as Medical nebulizer needed for Bran ch solution Wheezing or Shortness of Breath. albuterol 2022-0 Yes [id number] 2{puff} Inhale 2 [facility] 90 6-07 Puffs ity of mcg/actuati 00:00: every 6 [place] on inhaler 00 (six) Medical hours as Branch needed for Wheezing or Shortness of Breath. acetaminoph 2022-0 Yes [id number] 1{tbl} Take 1 [facility] en 6-07 tablet by ity of (TYLENOL) 00:00: mouth [place] 325 mg Cap 00 every 6 Medica l (six) Branch hours as needed for Fever. ascorbic 2023-0 Yes [id number] 500mg Take 1 U nivers acid, 6-07 tablet by ity of vitamin C, 00:00: mouth in [place] (VITAMIN C) 00 the Medical 500 mg morning. Branch tablet ipratropium 3-0 Yes [id number] .5mg Inhale 2.5 [facility] 0.02 % 6-07 mL every 6 ity of nebulizer 00:00: (six) [place] solution 00 hours as Medical needed for Branch Wheezing or Shortness of Breath. albuterol 2022-0 Yes [id number] 2.5mg Inhale 3 [facility] 2.5 mg /3 6-07 mL every 4 ity of mL (0.083 00:00: (four) [place] %) 00 hours as Medical nebulizer needed for Bran ch solution Wheezing or Shortness of Breath. albuterol 2022-0 Yes [id number] 2{puff} Inhale 2 [facility] 90 6-07 Puffs ity of mcg/actuati 00:00: every 6 [place] on inhaler 00 (six) Medical hours as Branch needed for Wheezing or Shortness of Breath. acetaminoph 2022-0 Yes [id number] 1{tbl} Take 1 [facility] en 6-07 tablet by ity of (TYLENOL) 00:00: mouth [place] 325 mg Cap 00 every 6 Medica l (six) Branch hours as needed for Fever. ascorbic 3-0 Yes [id number] 500mg Take 1 U nivers acid, 6-07 tablet by ity of vitamin C, 00:00: mouth in [place] (VITAMIN C) 00 the Medical 500 mg morning. Branch tablet ipratropium 2022-0 Yes [id number] .5mg Inhale 2.5 [facility] 0.02 % 6-07 mL every 6 ity of nebulizer 00:00: (six) [place] solution 00 hours as Medical needed for Branch Wheezing or Shortness of Breath. albuterol 2022-0 Yes [id number] 2.5mg Inhale 3 [facility] 2.5 mg /3 6-07 mL every 4 ity of mL (0.083 00:00: (four) [place] %) 00 hours as Medical nebulizer needed for Bran ch solution Wheezing or Shortness of Breath. albuterol 2023-0 Yes [id number] 2{puff} Inhale 2 [facility] 90 6-07 Puffs ity of mcg/actuati 00:00: every 6 [place] on inhaler 00 (six) Medical hours as Branch needed for Wheezing or Shortness of Breath. acetaminoph 2022-0 Yes [id number] 1{tbl} Take 1 [facility] en 6-07 tablet by ity of (TYLENOL) 00:00: mouth [place] 325 mg Cap 00 every 6 Medica l (six) Branch hours as needed for Fever. ascorbic 2022-0 Yes [id number] 500mg Take 1 U nivers acid, 6-07 tablet by ity of vitamin C, 00:00: mouth in [place] (VITAMIN C) 00 the Medical 500 mg morning. Branch tablet ipratropium 2022-0 Yes [id number] .5mg Inhale 2.5 [facility] 0.02 % 6-07 mL every 6 ity of nebulizer 00:00: (six) [place] solution 00 hours as Medical needed for Branch Wheezing or Shortness of Breath. albuterol 2022-0 Yes [id number] 2.5mg Inhale 3 [facility] 2.5 mg /3 6-07 mL every 4 ity of mL (0.083 00:00: (four) [place] %) 00 hours as Medical nebulizer needed for Bran ch solution Wheezing or Shortness of Breath. albuterol 2022-0 Yes [id number] 2{puff} Inhale 2 [facility] 90 6-07 Puffs ity of mcg/actuati 00:00: every 6 [place] on inhaler 00 (six) Medical hours as Branch needed for Wheezing or Shortness of Breath. acetaminoph 2022-0 Yes [id number] 1{tbl} Take 1 [facility] en 6-07 tablet by ity of (TYLENOL) 00:00: mouth [place] 325 mg Cap 00 every 6 Medica l (six) Branch hours as needed for Fever. ascorbic 3-0 Yes [id number] 500mg Take 1 U nivers acid, 6-07 tablet by ity of vitamin C, 00:00: mouth in [place] (VITAMIN C) 00 the Medical 500 mg morning. Branch tablet ipratropium 2022-0 Yes [id number] .5mg Inhale 2.5 [facility] 0.02 % 6-07 mL every 6 ity of nebulizer 00:00: (six) [place] solution 00 hours as Medical needed for Branch Wheezing or Shortness of Breath. albuterol 2022-0 Yes [id number] 2.5mg Inhale 3 [facility] 2.5 mg /3 6-07 mL every 4 ity of mL (0.083 00:00: (four) [place] %) 00 hours as Medical nebulizer needed for Bran ch solution Wheezing or Shortness of Breath. albuterol 2022-0 Yes [id number] 2{puff} Inhale 2 [facility] 90 6-07 Puffs ity of mcg/actuati 00:00: every 6 [place] on inhaler 00 (six) Medical hours as Branch needed for Wheezing or Shortness of Breath. acetaminoph 2022-0 Yes [id number] 1{tbl} Take 1 [facility] en 6-07 tablet by ity of (TYLENOL) 00:00: mouth [place] 325 mg Cap 00 every 6 Medica l (six) Branch hours as needed for Fever. ascorbic 2022-0 Yes [id number] 500mg Take 1 [facility] nivers acid, 6-07 tablet by ity of vitamin C, 00:00: mouth in [place] (VITAMIN C) 00 the Medical 500 mg morning. Branch tablet ipratropium 2022-0 Yes [id number] .5mg Inhale 2.5 [facility] 0.02 % 6-07 mL every 6 ity of nebulizer 00:00: (six) [place] solution 00 hours as Medical needed for Branch Wheezing or Shortness of Breath. albuterol 2022-0 Yes [id number] 2.5mg Inhale 3 [facility] 2.5 mg /3 6-07 mL every 4 ity of mL (0.083 00:00: (four) [place] %) 00 hours as Medical nebulizer needed for Bran ch solution Wheezing or Shortness of Breath. albuterol 2022-0 Yes [id number] 2{puff} Inhale 2 [facility] 90 6-07 Puffs ity of mcg/actuati 00:00: every 6 [place] on inhaler 00 (six) Medical hours as Branch needed for Wheezing or Shortness of Breath. acetaminoph 2022-0 Yes [id number] 1{tbl} Take 1 [facility] en 6-07 tablet by ity of (TYLENOL) 00:00: mouth [place] 325 mg Cap 00 every 6 Medica l (six) Branch hours as needed for Fever. ascorbic 3-0 Yes [id number] 500mg Take 1 U nivers acid, 6-07 tablet by ity of vitamin C, 00:00: mouth in [place] (VITAMIN C) 00 the Medical 500 mg morning. Branch tablet ipratropium 2022-0 Yes [id number] .5mg Inhale 2.5 [facility] 0.02 % 6-07 mL every 6 ity of nebulizer 00:00: (six) [place] solution 00 hours as Medical needed for Branch Wheezing or Shortness of Breath. albuterol 2022-0 Yes [id number] 2.5mg Inhale 3 [facility] 2.5 mg /3 6-07 mL every 4 ity of mL (0.083 00:00: (four) [place] %) 00 hours as Medical nebulizer needed for Bran ch solution Wheezing or Shortness of Breath. albuterol 2022-0 Yes [id number] 2{puff} Inhale 2 [facility] 90 6-07 Puffs ity of mcg/actuati 00:00: every 6 [place] on inhaler 00 (six) Medical hours as Branch needed for Wheezing or Shortness of Breath. acetaminoph 2022-0 Yes [id number] 1{tbl} Take 1 [facility] en 6-07 tablet by ity of (TYLENOL) 00:00: mouth [place] 325 mg Cap 00 every 6 Medica l (six) Branch hours as needed for Fever. ascorbic 2022-0 Yes [id number] 500mg Take 1 [facility] nivers acid, 6-07 tablet by ity of vitamin C, 00:00: mouth in [place] (VITAMIN C) 00 the Medical 500 mg morning. Branch tablet albuterol 2022-0 Yes 2.5mg Inhale 3 [facility] (ACCUNEB) 6-07 mL (2.[address] 2.5 mg /3 00:00: total) [facility] mL (0.083 00 needed. l %) nebulizer solution albuterol 2022-0 Yes 2{puff} Q6H Inhale 2 M [facility]i 90 6-[address] mcg/actuati 00:00: every 6 [facility] inhaler 00 (six) l hours as needed. ascorbic 2022-0 Yes 500mg QD Take 1 [facility] acid, 6-[address] vitamin C, 00:00: (500 mg [facility] (VITAMIN C) 00 total) by l 500 MG mouth tablet every morning. ipratropium 3-0 Yes .5mg Inhale 2.5 [facility] (ATROVENT) 6-07 mL (0.[address] 0.02 % 00:00: total) as [facility] nebulizer 00 needed. l solution promethazin 3-0 Yes 12.5mg Take 1 [facility] 6-[address] (PHENERGAN) 00:00: (12.5 mg [facility] 12.5 MG 00 total) by l tablet mouth as needed. zinc 3-0 Yes 1{tbl} QD Take 1 [facility] gluconate 6-[address] 100 mg 00:00: [facility] tablet 00 every l morning. ipratropium 3-0 Yes [id number] .5mg Inhale 2.5 [facility] 0.02 % 6-07 mL every 6 ity of nebulizer 00:00: (six) [place] solution 00 hours as Medical needed for Branch Wheezing or Shortness of Breath. albuterol 3-0 Yes [id number] 2.5mg Inhale 3 [facility] 2.5 mg /3 6-07 mL every 4 ity of mL (0.083 00:00: (four) [place] %) 00 hours as Medical nebulizer needed for Bran ch solution Wheezing or Shortness of Breath. albuterol 3-0 Yes [id number] 2{puff} Inhale 2 [facility] 90 6-07 Puffs ity of mcg/actuati 00:00: every 6 [place] on inhaler 00 (six) Medical hours as Branch needed for Wheezing or Shortness of Breath. nirmatrelvi 3-0 Yes [id number] 3{tbl} Take 3 [facility] r-ritonavir 6-07 tablets by it y of (PAXLOVID, 00:00: mouth in [place] EUA,) 300 00 the Medical mg (150 mg morning Branch x 2)-100 mg and 3 tablet tablets in the evening. acetaminoph 2023-0 Yes [id number] 1{tbl} Take 1 [facility] en 6-07 tablet by ity of (TYLENOL) 00:00: mouth [place] 325 mg Cap 00 every 6 Medica l (six) Branch hours as needed for Fever. Magnesium 2023-0 Yes [id number] 1{tbl} Take 1 [facility] 250 mg Tab 6-07 tablet by ity of 00:00: mouth in [place] 00 the Medical morning. Branch Zinc 2022-0 Yes [id number] 1{tbl} Take 1 [facility] ers Gluconate 6-07 tablet by ity o f 100 mg Tab 00:00: mouth in [place] 00 the Medical morning. Branch ascorbic 2022-0 Yes [id number] 500mg Take 1 U nivers acid, 6-07 tablet by ity of vitamin C, 00:00: mouth in [place] (VITAMIN C) 00 the Medical 500 mg morning. Branch tablet proMETHazin 0 Yes [id number] 12.5mg Take 1 [facility] e 12.5 mg 6-07 tablet by ity o f tablet 00:00: mouth [place] 00 every 4 Medical (four) Branch hours as needed for Nausea and Vomiting (N/V). ipratropium Yes [id number] .5mg Inhale 2.5 [facility] 0.02 % 6-07 mL every 6 ity of nebulizer 00:00: (six) [place] solution 00 hours as Medical needed for Branch Wheezing or Shortness of Breath. albuterol Yes [id number] 2.5mg Inhale 3 [facility] 2.5 mg /3 6-07 mL every 4 ity of mL (0.083 00:00: (four) [place] %) 00 hours as Medical nebulizer needed for Bran ch solution Wheezing or Shortness of Breath. albuterol 0 Yes [id number] 2{puff} Inhale 2 [facility] 90 6-07 Puffs ity of mcg/actuati 00:00: every 6 [place] on inhaler 00 (six) Medical hours as Branch needed for Wheezing or Shortness of Breath. nirmatrelvi 2022-0 Yes [id number] 3{tbl} Take 3 [facility] r-ritonavir 6-07 tablets by it y of (PAXLOVID, 00:00: mouth in [place] EUA,) 300 00 the Medical mg (150 mg morning Branch x 2)-100 mg and 3 tablet tablets in the evening. acetaminoph 2022-0 Yes [id number] 1{tbl} Take 1 [facility] en 6-07 tablet by ity of (TYLENOL) 00:00: mouth [place] 325 mg Cap 00 every 6 Medica l (six) Branch hours as needed for Fever. Magnesium 0 Yes [id number] 1{tbl} Take 1 [facility] 250 mg Tab 6-07 tablet by ity of 00:00: mouth in [place] 00 the Medical morning. Branch Zinc 2022-0 Yes [id number] 1{tbl} Take 1 [facility] ers Gluconate 6-07 tablet by ity o f 100 mg Tab 00:00: mouth in [place] 00 the Medical morning. Branch ascorbic 2022-0 Yes [id number] 500mg Take 1 [facility] nivers acid, 6-07 tablet by ity of vitamin C, 00:00: mouth in [place] (VITAMIN C) 00 the Medical 500 mg morning. Branch tablet proMETHazin Yes [id number] 12.5mg Take 1 [facility] e 12.5 mg 6-07 tablet by ity o f tablet 00:00: mouth [place] 00 every 4 Medical (four) Branch hours as needed for Nausea and Vomiting (N/V). ipratropium Yes [id number] .5mg Inhale 2.5 [facility] 0.02 % 6-07 mL every 6 ity of nebulizer 00:00: (six) [place] solution 00 hours as Medical needed for Branch Wheezing or Shortness of Breath. albuterol Yes [id number] 2.5mg Inhale 3 [facility] 2.5 mg /3 6-07 mL every 4 ity of mL (0.083 00:00: (four) [place] %) 00 hours as Medical nebulizer needed for Bran ch solution Wheezing or Shortness of Breath. albuterol Yes [id number] 2{puff} Inhale 2 [facility] 90 6-07 Puffs ity of mcg/actuati 00:00: every 6 [place] on inhaler 00 (six) Medical hours as Branch needed for Wheezing or Shortness of Breath. nirmatrelvi 0 Yes [id number] 3{tbl} Take 3 [facility] r-ritonavir 6-07 tablets by it y of (PAXLOVID, 00:00: mouth in [place] EUA,) 300 00 the Medical mg (150 mg morning Branch x 2)-100 mg and 3 tablet tablets in the evening. acetaminoph 2023-0 Yes [id number] 1{tbl} Take 1 [facility] en 6-07 tablet by ity of (TYLENOL) 00:00: mouth [place] 325 mg Cap 00 every 6 Medica l (six) Branch hours as needed for Fever. Magnesium 2022-0 Yes [id number] 1{tbl} Take 1 [facility] 250 mg Tab 6-07 tablet by ity of 00:00: mouth in [place] 00 the Medical morning. Branch Zinc 2022-0 Yes [id number] 1{tbl} Take 1 [facility] ers Gluconate 6-07 tablet by ity o f 100 mg Tab 00:00: mouth in [place] 00 the Medical morning. Branch ascorbic 2022-0 Yes [id number] 500mg Take 1 U nivers acid, 6-07 tablet by ity of vitamin C, 00:00: mouth in [place] (VITAMIN C) 00 the Medical 500 mg morning. Branch tablet proMETHazin 2022-0 Yes [id number] 12.5mg Take 1 [facility] e 12.5 mg 6-07 tablet by ity o f tablet 00:00: mouth [place] 00 every 4 Medical (four) Branch hours as needed for Nausea and Vomiting (N/V). ipratropium 2022-0 Yes [id number] .5mg Inhale 2.5 [facility] 0.02 % 6-07 mL every 6 ity of nebulizer 00:00: (six) [place] solution 00 hours as Medical needed for Branch Wheezing or Shortness of Breath. albuterol 2022-0 Yes [id number] 2.5mg Inhale 3 [facility] 2.5 mg /3 6-07 mL every 4 ity of mL (0.083 00:00: (four) [place] %) 00 hours as Medical nebulizer needed for Bran ch solution Wheezing or Shortness of Breath. albuterol 2022-0 Yes [id number] 2{puff} Inhale 2 [facility] 90 6-07 Puffs ity of mcg/actuati 00:00: every 6 [place] on inhaler 00 (six) Medical hours as Branch needed for Wheezing or Shortness of Breath. nirmatrelvi 2022-0 Yes [id number] 3{tbl} Take 3 [facility] r-ritonavir 6-07 tablets by it y of (PAXLOVID, 00:00: mouth in [place] EUA,) 300 00 the Medical mg (150 mg morning Branch x 2)-100 mg and 3 tablet tablets in the evening. acetaminoph 2022-0 Yes [id number] 1{tbl} Take 1 [facility] en 6-07 tablet by ity of (TYLENOL) 00:00: mouth [place] 325 mg Cap 00 every 6 Medica l (six) Branch hours as needed for Fever. Magnesium 2022-0 Yes [id number] 1{tbl} Take 1 [facility] 250 mg Tab 6-07 tablet by ity of 00:00: mouth in [place] 00 the Medical morning. Branch Zinc 2022-0 Yes [id number] 1{tbl} Take 1 [facility] ers Gluconate 6-07 tablet by ity o f 100 mg Tab 00:00: mouth in [place] 00 the Medical morning. Branch ascorbic 2022-0 Yes [id number] 500mg Take 1 U nivers acid, 6-07 tablet by ity of vitamin C, 00:00: mouth in [place] (VITAMIN C) 00 the Medical 500 mg morning. Branch tablet proMETHazin 2022-0 Yes [id number] 12.5mg Take 1 [facility] e 12.5 mg 6-07 tablet by ity o f tablet 00:00: mouth [place] 00 every 4 Medical (four) Branch hours as needed for Nausea and Vomiting (N/V). ipratropium 0 Yes [id number] .5mg Inhale 2.5 [facility] 0.02 % 6-07 mL every 6 ity of nebulizer 00:00: (six) [place] solution 00 hours as Medical needed for Branch Wheezing or Shortness of Breath. albuterol 2022-0 Yes [id number] 2.5mg Inhale 3 [facility] 2.5 mg /3 6-07 mL every 4 ity of mL (0.083 00:00: (four) [place] %) 00 hours as Medical nebulizer needed for Bran ch solution Wheezing or Shortness of Breath. albuterol 2022-0 Yes [id number] 2{puff} Inhale 2 [facility] 90 6-07 Puffs ity of mcg/actuati 00:00: every 6 [place] on inhaler 00 (six) Medical hours as Branch needed for Wheezing or Shortness of Breath. nirmatrelvi 2022-0 Yes [id number] 3{tbl} Take 3 [facility] r-ritonavir 6-07 tablets by it y of (PAXLOVID, 00:00: mouth in [place] EUA,) 300 00 the Medical mg (150 mg morning Branch x 2)-100 mg and 3 tablet tablets in the evening. acetaminoph 2022-0 Yes [id number] 1{tbl} Take 1 [facility] en 6-07 tablet by ity of (TYLENOL) 00:00: mouth [place] 325 mg Cap 00 every 6 Medica l (six) Branch hours as needed for Fever. Magnesium 2022-0 Yes [id number] 1{tbl} Take 1 [facility] 250 mg Tab 6-07 tablet by ity of 00:00: mouth in [place] 00 the Medical morning. Branch Zinc 2022-0 Yes [id number] 1{tbl} Take 1 [facility] ers Gluconate 6-07 tablet by ity o f 100 mg Tab 00:00: mouth in [place] 00 the Medical morning. Branch ascorbic 2022-0 Yes [id number] 500mg Take 1 U nivers acid, 6-07 tablet by ity of vitamin C, 00:00: mouth in [place] (VITAMIN C) 00 the Medical 500 mg morning. Branch tablet proMETHazin 0 Yes [id number] 12.5mg Take 1 [facility] e 12.5 mg 6-07 tablet by ity o f tablet 00:00: mouth [place] 00 every 4 Medical (four) Branch hours as needed for Nausea and Vomiting (N/V). ipratropium 0 Yes [id number] .5mg Inhale 2.5 [facility] 0.02 % 6-07 mL every 6 ity of nebulizer 00:00: (six) [place] solution 00 hours as Medical needed for Branch Wheezing or Shortness of Breath. albuterol 0 Yes [id number] 2.5mg Inhale 3 [facility] 2.5 mg /3 6-07 mL every 4 ity of mL (0.083 00:00: (four) [place] %) 00 hours as Medical nebulizer needed for Bran ch solution Wheezing or Shortness of Breath. albuterol Yes [id number] 2{puff} Inhale 2 [facility] 90 6-07 Puffs ity of mcg/actuati 00:00: every 6 [place] on inhaler 00 (six) Medical hours as Branch needed for Wheezing or Shortness of Breath. nirmatrelvi 2022-0 Yes [id number] 3{tbl} Take 3 [facility] r-ritonavir 6-07 tablets by it y of (PAXLOVID, 00:00: mouth in [place] EUA,) 300 00 the Medical mg (150 mg morning Branch x 2)-100 mg and 3 tablet tablets in the evening. acetaminoph 2022-0 Yes [id number] 1{tbl} Take 1 [facility] en 6-07 tablet by ity of (TYLENOL) 00:00: mouth [place] 325 mg Cap 00 every 6 Medica l (six) Branch hours as needed for Fever. Magnesium 2022-0 Yes [id number] 1{tbl} Take 1 [facility] 250 mg Tab 6-07 tablet by ity of 00:00: mouth in [place] 00 the Medical morning. Branch Zinc 2022-0 Yes [id number] 1{tbl} Take 1 [facility] ers Gluconate 6-07 tablet by ity o f 100 mg Tab 00:00: mouth in [place] 00 the Medical morning. Branch ascorbic 2022-0 Yes [id number] 500mg Take 1 U nivers acid, 6-07 tablet by ity of vitamin C, 00:00: mouth in [place] (VITAMIN C) 00 the Medical 500 mg morning. Branch tablet proMETHazin 2022-0 Yes [id number] 12.5mg Take 1 [facility] e 12.5 mg 6-07 tablet by ity o f tablet 00:00: mouth [place] 00 every 4 Medical (four) Branch hours as needed for Nausea and Vomiting (N/V). ipratropium 2022-0 Yes [id number] .5mg Inhale 2.5 [facility] 0.02 % 6-07 mL every 6 ity of nebulizer 00:00: (six) [place] solution 00 hours as Medical needed for Branch Wheezing or Shortness of Breath. albuterol 2022-0 Yes [id number] 2.5mg Inhale 3 [facility] 2.5 mg /3 6-07 mL every 4 ity of mL (0.083 00:00: (four) [place] %) 00 hours as Medical nebulizer needed for Bran ch solution Wheezing or Shortness of Breath. albuterol 2022-0 Yes [id number] 2{puff} Inhale 2 [facility] 90 6-07 Puffs ity of mcg/actuati 00:00: every 6 [place] on inhaler 00 (six) Medical hours as Branch needed for Wheezing or Shortness of Breath. nirmatrelvi 2022-0 Yes [id number] 3{tbl} Take 3 [facility] r-ritonavir 6-07 tablets by it y of (PAXLOVID, 00:00: mouth in [place] EUA,) 300 00 the Medical mg (150 mg morning Branch x 2)-100 mg and 3 tablet tablets in the evening. acetaminoph 2022-0 Yes [id number] 1{tbl} Take 1 [facility] en 6-07 tablet by ity of (TYLENOL) 00:00: mouth [place] 325 mg Cap 00 every 6 Medica l (six) Branch hours as needed for Fever. Magnesium 2022-0 Yes [id number] 1{tbl} Take 1 [facility] 250 mg Tab 6-07 tablet by ity of 00:00: mouth in [place] 00 the Medical morning. Branch Zinc 2022-0 Yes [id number] 1{tbl} Take 1 [facility] ers Gluconate 6-07 tablet by ity o f 100 mg Tab 00:00: mouth in [place] 00 the Medical morning. Branch ascorbic 3-0 Yes [id number] 500mg Take 1 U nivers acid, 6-07 tablet by ity of vitamin C, 00:00: mouth in [place] as (VITAMIN C) 00 the Medical 500 mg morning. Branch tablet proMETHazin 2022-0 Yes [id number] 12.5mg Take 1 [facility] e 12.5 mg 6-07 tablet by ity o f tablet 00:00: mouth [place] 00 every 4 Medical (four) Branch hours as needed for Nausea and Vomiting (N/V). ipratropium 2022-0 Yes [id number] .5mg Inhale 2.5 [facility] 0.02 % 6-07 mL every 6 ity of nebulizer 00:00: (six) [place] solution 00 hours as Medical needed for Branch Wheezing or Shortness of Breath. albuterol 3-0 Yes [id number] 2.5mg Inhale 3 [facility] 2.5 mg /3 6-07 mL every 4 ity of mL (0.083 00:00: (four) [place] %) 00 hours as Medical nebulizer needed for Bran ch solution Wheezing or Shortness of Breath. albuterol 2022-0 Yes [id number] 2{puff} Inhale 2 [facility] 90 6-07 Puffs ity of mcg/actuati 00:00: every 6 [place] on inhaler 00 (six) Medical hours as Branch needed for Wheezing or Shortness of Breath. nirmatrelvi 2022- No [id number] 3{tbl} Take 3 [facility] r-ritonavir 6-07 06-30 tablets by i ty of (PAXLOVID, 00:00: 00:00 mouth in [facility],) 300 00 :00 the Medical mg (150 mg morning Branch x 2)-100 mg and 3 tablet tablets in the evening. Magnesium 2022- No [id number] 1{tbl} Take 1 [facility] 250 mg Tab 6-11 10-30 tablet by ity of 00:00: 00:00 mouth in [place] 00 :00 the Medical morning. Branch Zinc 2022- No [id number] 1{tbl} Take 1 [facility] vers Gluconate 6- 06-30 tablet by ity of 100 mg Tab 00:00: 00:00 mouth in [facility] 00 :00 the Medical morning. Branch proMETHazin 2022- No [id number] 12.5mg Take 1 [facility] e 12.5 mg 6-11 10-30 tablet by ity of tablet 00:00: 00:00 mouth [place] 00 :00 every 4 Medical (four) Branch hours as needed for Nausea and Vomiting (N/V). nirmatrelvi 2022- No [id number] 3{tbl} Take 3 [facility] r-ritonavir 6- 06-30 tablets by i ty of (PAXLOVID, 00:00: 00:00 mouth in [facility],) 300 00 :00 the Medical mg (150 mg morning Branch x 2)-100 mg and 3 tablet tablets in the evening. Magnesium 2022- No [id number] 1{tbl} Take 1 [facility] 250 mg Tab 6- 06-30 tablet by ity of 00:00: 00:00 mouth in [place] 00 :00 the Medical morning. Branch Zinc 2022- No [id number] 1{tbl} Take 1 [facility] vers Gluconate 6-07 06-30 tablet by ity of 100 mg Tab 00:00: 00:00 mouth in [facility] 00 :00 the Medical morning. Branch proMETHazin 2022- No [id number] 12.5mg Take 1 [facility] e 12.5 mg 6-11 10-30 tablet by ity of tablet 00:00: 00:00 mouth [place] 00 :00 every 4 Medical (four) Branch hours as needed for Nausea and Vomiting (N/V). nirmatrelvi 2022- No [id number] 3{tbl} Take 3 [facility] r-ritonavir 6-11 10-30 tablets by i ty of (PAXLOVID, 00:00: 00:00 mouth in [facility],) 300 00 :00 the Medical mg (150 mg morning Branch x 2)-100 mg and 3 tablet tablets in the evening. Magnesium 2022- No [id number] 1{tbl} Take 1 [facility] 250 mg Tab 10-12-30 tablet by ity of 00:00: 00:00 mouth in [place] 00 :00 the Medical morning. Branch Zinc 2022- No [id number] 1{tbl} Take 1 [facility] vers Gluconate -11 10-30 tablet by ity of 100 mg Tab 00:00: 00:00 mouth in [facility] 00 :00 the Medical morning. Branch proMETHazin 2022- No [id number] 12.5mg Take 1 [facility] e 12.5 mg -11 10-30 tablet by ity of tablet 00:00: 00:00 mouth [place] 00 :00 every 4 Medical (four) Branch hours as needed for Nausea and Vomiting (N/V). nirmatrelvi 2022- No [id number] 3{tbl} Take 3 [facility] r-ritonavir 6-11 10-30 tablets by i ty of (PAXLOVID, 00:00: 00:00 mouth in [facility],) 300 00 :00 the Medical mg (150 mg morning Branch x 2)-100 mg and 3 tablet tablets in the evening. Magnesium 2022- No [id number] 1{tbl} Take 1 [facility] 250 mg Tab 10-12-30 tablet by ity of 00:00: 00:00 mouth in [place] 00 :00 the Medical morning. Branch Zinc 2022- No [id number] 1{tbl} Take 1 [facility] vers Gluconate 6-11 10-30 tablet by ity of 100 mg Tab 00:00: 00:00 mouth in [place] 00 :00 the Medical morning. Branch proMETHazin 2022- No [id number] 12.5mg Take 1 [facility] e 12.5 mg 6-11 10-30 tablet by ity of tablet 00:00: 00:00 mouth [place] 00 :00 every 4 Medical (four) Branch hours as needed for Nausea and Vomiting (N/V). nirmatrelvi 2022- No [id number] 3{tbl} Take 3 [facility] r-ritonavir 6-11 10-30 tablets by i ty of (PAXLOVID, 00:00: 00:00 mouth in [place] EUA,) 300 00 :00 the Medical mg (150 mg morning Branch x 2)-100 mg and 3 tablet tablets in the evening. Magnesium 2022-2022- No [id number] 1{tbl} Take 1 [facility] 250 mg Tab 10-12-30 tablet by ity of 00:00: 00:00 mouth in [place] 00 :00 the Medical morning. Branch Zinc 2022- No [id number] 1{tbl} Take 1 [facility] vers Gluconate 6-11 10-30 tablet by ity of 100 mg Tab 00:00: 00:00 mouth in [place] 00 :00 the Medical morning. Branch proMETHazin 2022- No [id number] 12.5mg Take 1 [facility] e 12.5 mg 6-11 10-30 tablet by ity of tablet 00:00: 00:00 mouth [place] 00 :00 every 4 Medical (four) Branch hours as needed for Nausea and Vomiting (N/V). escitalopra Yes [id number] 20mg Take 1 [facility] m oxalate 6-03 tablet by ity o f 20 mg 00:00: mouth in [place] tablet 00 the Medical morning. Branch escitalopra Yes [id number] 20mg Take 1 [facility] m oxalate 6-03 tablet by ity o f 20 mg 00:00: mouth in [place] tablet 00 the Medical morning. Branch escitalopra 2023-0 Yes [id number] 20mg Take 1 [facility] m oxalate 6-03 tablet by ity o f 20 mg 00:00: mouth in [place] tablet 00 the Medical morning. Branch escitalopra 3-0 Yes [id number] 20mg Take 1 [facility] m oxalate 6-03 tablet by ity o f 20 mg 00:00: mouth in [place] tablet 00 the Medical morning. Branch escitalopra 2022-0 Yes [id number] 20mg Take 1 [facility] m oxalate 6-03 tablet by ity o f 20 mg 00:00: mouth in [place] tablet 00 the Medical morning. Branch escitalopra 2022-0 Yes [id number] 20mg Take 1 [facility] m oxalate 6-03 tablet by ity o f 20 mg 00:00: mouth in [place] tablet 00 the Medical morning. Branch escitalopra 2022-0 Yes [id number] 20mg Take 1 [facility] m oxalate 6-03 tablet by ity o f 20 mg 00:00: mouth in [place] tablet 00 the Medical morning. Branch escitalopra 2022-0 Yes [id number] 20mg Take 1 [facility] m oxalate 6-03 tablet by ity o f 20 mg 00:00: mouth in [place] tablet 00 the Medical morning. Branch escitalopra 2022-0 Yes [id number] 20mg Take 1 [facility] m oxalate 6-03 tablet by ity o f 20 mg 00:00: mouth in [place] tablet 00 the Medical morning. Branch escitalopra 2022-0 Yes [id number] 20mg Take 1 [facility] m oxalate 6-03 tablet by ity o f 20 mg 00:00: mouth in [place] tablet 00 the Medical morning. Branch escitalopra 2022-0 Yes [id number] 20mg Take 1 [facility] m oxalate 6-03 tablet by ity o f 20 mg 00:00: mouth in [place] tablet 00 the Medical morning. Branch escitalopra 3-0 Yes [id number] 20mg Take 1 [facility] m oxalate 6-03 tablet by ity o f 20 mg 00:00: mouth in [place] tablet 00 the Medical morning. Branch escitalopra 3-0 Yes [id number] 20mg Take 1 [facility] m oxalate 6-03 tablet by ity o f 20 mg 00:00: mouth in [place] tablet 00 the Medical morning. Branch escitalopra 3-0 Yes [id number] 20mg Take 1 [facility] m oxalate 6-03 tablet by ity o f 20 mg 00:00: mouth in [place] tablet 00 the Medical morning. Branch escitalopra 3-0 Yes [id number] 20mg Take 1 [facility] m oxalate 6-03 tablet by ity o f 20 mg 00:00: mouth in [place] tablet 00 the Medical morning. Branch escitalopra 2022-0 Yes [id number] 20mg Take 1 [facility] m oxalate 6-03 tablet by ity o f 20 mg 00:00: mouth in [place] tablet 00 the Medical morning. Branch escitalopra 3-0 Yes [id number] 20mg Take 1 [facility] m oxalate 6-03 tablet by ity o f 20 mg 00:00: mouth in [place] tablet 00 the Medical morning. Branch escitalopra 3-0 Yes [id number] 20mg Take 1 [facility] m oxalate 6-03 tablet by ity o f 20 mg 00:00: mouth in [place] tablet 00 the Medical morning. Branch escitalopra 2022-0 Yes [id number] 20mg Take 1 [facility] m oxalate 6-03 tablet by ity o f 20 mg 00:00: mouth in [place] tablet 00 the Medical morning. Branch escitalopra 2022-0 Yes [id number] 20mg Take 1 [facility] m oxalate 6-03 tablet by ity o f 20 mg 00:00: mouth in [place] tablet 00 the Medical morning. Branch escitalopra 2022-0 Yes [id number] 20mg Take 1 [facility] m oxalate 6-03 tablet by ity o f 20 mg 00:00: mouth in [place] tablet 00 the Medical morning. Branch escitalopra 2022-0 Yes [id number] 20mg Take 1 [facility] m oxalate 6-03 tablet by ity o f 20 mg 00:00: mouth in [place] tablet 00 the Medical morning. Branch escitalopra 3-0 Yes [id number] 20mg Take 1 [facility] m oxalate 6-03 tablet by ity o f 20 mg 00:00: mouth in [place] tablet 00 the Medical morning. Branch escitalopra 3-0 Yes [id number] 20mg Take 1 [facility] m oxalate 6-03 tablet by ity o f 20 mg 00:00: mouth in [place] tablet 00 the Medical morning. Branch escitalopra 3-0 Yes [id number] 20mg Take 1 [facility] m oxalate 6-03 tablet by ity o f 20 mg 00:00: mouth in [place] tablet 00 the Medical morning. Branch escitalopra 2023-0 Yes [id number] 20mg Take 1 [facility] m oxalate 6-03 tablet by ity o f 20 mg 00:00: mouth in [place] tablet 00 the Medical morning. Branch escitalopra 2022-0 Yes [id number] 20mg Take 1 [facility] m oxalate 6-03 tablet by ity o f 20 mg 00:00: mouth in [place] tablet 00 the Medical morning. Branch escitalopra 2022-0 Yes [id number] 20mg Take 1 [facility] m oxalate 6-03 tablet by ity o f 20 mg 00:00: mouth in [place] tablet 00 the Medical morning. Branch escitalopra 2022-0 Yes [id number] 20mg Take 1 [facility] m oxalate 6-03 tablet by ity o f 20 mg 00:00: mouth in [place] tablet 00 the Medical morning. Branch escitalopra 2022-0 Yes [id number] 20mg Take 1 [facility] m oxalate 6-03 tablet by ity o f 20 mg 00:00: mouth in [place] tablet 00 the Medical morning. Branch escitalopra 2022-0 Yes [id number] 20mg Take 1 [facility] m oxalate 6-03 tablet by ity o f 20 mg 00:00: mouth in [place] tablet 00 the Medical morning. Branch escitalopra 2022-0 Yes [id number] 20mg Take 1 [facility] m oxalate 6-03 tablet by ity o f 20 mg 00:00: mouth in [place] tablet 00 the Medical morning. Branch escitalopra 2022-0 Yes [id number] 20mg Take 1 [facility] m oxalate 6-03 tablet by ity o f 20 mg 00:00: mouth in [place] tablet 00 the Medical morning. Branch escitalopra 2022-0 Yes [id number] 20mg Take 1 [facility] m oxalate 6-03 tablet by ity o f 20 mg 00:00: mouth in [place] tablet 00 the Medical morning. Branch escitalopra 2022-0 Yes [id number] 20mg Take 1 [facility] m oxalate 6-03 tablet by ity o f 20 mg 00:00: mouth in [place] tablet 00 the Medical morning. Branch escitalopra 2022-0 Yes [id number] 20mg Take 1 [facility] m oxalate 6-03 tablet by ity o f 20 mg 00:00: mouth in [place] tablet 00 the Medical morning. Branch escitalopra 2022-0 Yes [id number] 20mg Take 1 [facility] m oxalate 6-03 tablet by ity o f 20 mg 00:00: mouth in [place] tablet 00 the Medical morning. [place] escitalopra 2022- Yes [id number] 20mg Take 1 [facility] m oxalate 6-03 tablet by ity o f 20 mg 00:00: mouth in [place] tablet 00 the Medical morning. [place] escitalopra 0 Yes 20mg QD Take 1 Meth [facility] (LEXAPRO) 6-03 tablet (20 st 20 MG 00:00: mg total) [facility] tablet [facility] by mouth l every morning. escitalopra 2022-2022- No [id number] 20mg Take 1 [facility] m oxalate 6-03 08-08 tablet by ity of 20 mg 00:00: 00:00 mouth in [place] tablet 00 :00 the Medical morning. [place] escitalopra 2022-2022- No [id number] 20mg Take 1 [facility] m oxalate 6-03 08-08 tablet by ity of 20 mg 00:00: 00:00 mouth in [place] tablet 00 :00 the Medical morning. [place] LORazepam 2022- No [id number] 1mg 1 mg, [facility] (ATIVAN) 09-30 05-26 Oral, ity of tablet 1 mg 20:00: 15:02 ONCE, 1 [place] 00 :00 dose, On Medical Fri Branch 09/30/22 at 1500, Routine ergocalcife 2023-0 Yes [id number] Take 1 [facility] rol, 5-15 capsule by ity of vitamin d2, 00:00: mouth [place] 1,250 mcg 00 weekly. Medical (50,000 Branch unit) capsule ergocalcife 2023-0 Yes [id number] Take 1 [facility] rol, 5-15 capsule by ity of vitamin d2, 00:00: mouth [place] 1,250 mcg 00 weekly. Medical (50,000 Branch unit) capsule ergocalcife 2023-0 Yes [id number] Take 1 [facility] rol, 5-15 capsule by ity of vitamin d2, 00:00: mouth [place] 1,250 mcg 00 weekly. Medical (50,000 Branch unit) capsule ergocalcife 2023-0 Yes [id number] Take 1 [facility] rol, 5-15 capsule by ity of vitamin d2, 00:00: mouth [place] 1,250 mcg 00 weekly. Medical (50,000 Branch unit) capsule ergocalcife 2023-0 Yes [id number] Take 1 [facility] rol, 5-15 capsule by ity of vitamin d2, 00:00: mouth [place] 1,250 mcg 00 weekly. Medical (50,000 Branch unit) capsule ergocalcife 2023-0 Yes [id number] Take 1 [facility] rol, 5-15 capsule by ity of vitamin d2, 00:00: mouth [place] 1,250 mcg 00 weekly. Medical (50,000 Branch unit) capsule ergocalcife 2023-0 Yes [id number] Take 1 [facility] rol, 5-15 capsule by ity of vitamin d2, 00:00: mouth [place] 1,250 mcg 00 weekly. Medical (50,000 Branch unit) capsule ergocalcife 2023-0 Yes [id number] Take 1 [facility] rol, 5-15 capsule by ity of vitamin d2, 00:00: mouth [place] 1,250 mcg 00 weekly. Medical (50,000 Branch unit) capsule ergocalcife 2023-0 Yes [id number] Take 1 [facility] rol, 5-15 capsule by ity of vitamin d2, 00:00: mouth [place] 1,250 mcg 00 weekly. Medical (50,000 Branch unit) capsule ergocalcife 2023-0 Yes [id number] Take 1 [facility] rol, 5-15 capsule by ity of vitamin d2, 00:00: mouth [place] 1,250 mcg 00 weekly. Medical (50,000 Branch unit) capsule ergocalcife 2023-0 Yes [id number] Take 1 [facility] rol, 5-15 capsule by ity of vitamin d2, 00:00: mouth [place] 1,250 mcg 00 weekly. Medical (50,000 Branch unit) capsule ergocalcife 2023-0 Yes [id number] Take 1 [facility] rol, 5-15 capsule by ity of vitamin d2, 00:00: mouth [place] 1,250 mcg 00 weekly. Medical (50,000 Branch unit) capsule ergocalcife 2023-0 Yes [id number] Take 1 [facility] rol, 5-15 capsule by ity of vitamin d2, 00:00: mouth [place] 1,250 mcg 00 weekly. Medical (50,000 Branch unit) capsule ergocalcife 2023-0 Yes [id number] Take 1 [facility] rol, 5-15 capsule by ity of vitamin d2, 00:00: mouth [place] 1,250 mcg 00 weekly. Medical (50,000 Branch unit) capsule ergocalcife 2023-0 Yes [id number] Take 1 [facility] rol, 5-15 capsule by ity of vitamin d2, 00:00: mouth [place] 1,250 mcg 00 weekly. Medical (50,000 Branch unit) capsule ergocalcife 2023-0 Yes [id number] Take 1 [facility] rol, 5-15 capsule by ity of vitamin d2, 00:00: mouth [place] 1,250 mcg 00 weekly. Medical (50,000 Branch unit) capsule ergocalcife 2023-0 Yes [id number] Take 1 [facility] rol, 5-15 capsule by ity of vitamin d2, 00:00: mouth [place] 1,250 mcg 00 weekly. Medical (50,000 Branch unit) capsule ergocalcife 2023-0 Yes [id number] Take 1 [facility] rol, 5-15 capsule by ity of vitamin d2, 00:00: mouth [place] 1,250 mcg 00 weekly. Medical (50,000 Branch unit) capsule ergocalcife 2023-0 Yes [id number] Take 1 [facility] rol, 5-15 capsule by ity of vitamin d2, 00:00: mouth [place] 1,250 mcg 00 weekly. Medical (50,000 Branch unit) capsule ergocalcife 2023-0 Yes [id number] Take 1 [facility] rol, 5-15 capsule by ity of vitamin d2, 00:00: mouth [place] 1,250 mcg 00 weekly. Medical (50,000 Branch unit) capsule ergocalcife 2023-0 Yes [id number] Take 1 [facility] rol, 5-15 capsule by ity of vitamin d2, 00:00: mouth [place] 1,250 mcg 00 weekly. Medical (50,000 Branch unit) capsule ergocalcife 2023-0 Yes [id number] Take 1 [facility] rol, 5-15 capsule by ity of vitamin d2, 00:00: mouth [place] 1,250 mcg 00 weekly. Medical (50,000 Branch unit) capsule ergocalcife 2023-0 Yes [id number] Take 1 [facility] rol, 5-15 capsule by ity of vitamin d2, 00:00: mouth [place] 1,250 mcg 00 weekly. Medical (50,000 Branch unit) capsule ergocalcife 2023-0 Yes [id number] Take 1 [facility] rol, 5-15 capsule by ity of vitamin d2, 00:00: mouth [place] 1,250 mcg 00 weekly. Medical (50,000 Branch unit) capsule ergocalcife 2023-0 Yes [id number] Take 1 [facility] rol, 5-15 capsule by ity of vitamin d2, 00:00: mouth [place] 1,250 mcg 00 weekly. Medical (50,000 Branch unit) capsule ergocalcife 2023-0 Yes [id number] Take 1 [facility] rol, 5-15 capsule by ity of vitamin d2, 00:00: mouth [place] 1,250 mcg 00 weekly. Medical (50,000 Branch unit) capsule ergocalcife 2023-0 Yes [id number] Take 1 [facility] rol, 5-15 capsule by ity of vitamin d2, 00:00: mouth [place] 1,250 mcg 00 weekly. Medical (50,000 Branch unit) capsule ergocalcife 2023-0 Yes [id number] Take 1 [facility] rol, 5-15 capsule by ity of vitamin d2, 00:00: mouth [place] 1,250 mcg 00 weekly. Medical (50,000 Branch unit) capsule ergocalcife 2023-0 Yes [id number] Take 1 [facility] rol, 5-15 capsule by ity of vitamin d2, 00:00: mouth [place] 1,250 mcg 00 weekly. Medical (50,000 Branch unit) capsule ergocalcife 2023-0 Yes [id number] Take 1 [facility] rol, 5-15 capsule by ity of vitamin d2, 00:00: mouth [place] 1,250 mcg 00 weekly. Medical (50,000 Branch unit) capsule ergocalcife 2023-0 Yes [id number] Take 1 [facility] rol, 5-15 capsule by ity of vitamin d2, 00:00: mouth [place] 1,250 mcg 00 weekly. Medical (50,000 Branch unit) capsule ergocalcife 2023-0 Yes [id number] Take 1 [facility] rol, 5-15 capsule by ity of vitamin d2, 00:00: mouth [place] 1,250 mcg 00 weekly. Medical (50,000 Branch unit) capsule ergocalcife 2023-0 Yes [id number] Take 1 [facility] rol, 5-15 capsule by ity of vitamin d2, 00:00: mouth [place] 1,250 mcg 00 weekly. Medical (50,000 Branch unit) capsule ergocalcife 2023-0 Yes [id number] Take 1 [facility] rol, 5-15 capsule by ity of vitamin d2, 00:00: mouth [place] 1,250 mcg 00 weekly. Medical (50,000 Branch unit) capsule ergocalcife 2023-0 Yes [id number] Take 1 [facility] rol, 5-15 capsule by ity of vitamin d2, 00:00: mouth [place] 1,250 mcg 00 weekly. Medical (50,000 Branch unit) capsule ergocalcife 2023-0 Yes [id number] Take 1 [facility] rol, 5-15 capsule by ity of vitamin d2, 00:00: mouth [place] 1,250 mcg 00 weekly. Medical (50,000 Branch unit) capsule ergocalcife 2023-0 Yes [id number] Take 1 [facility] rol, 5-15 capsule by ity of vitamin d2, 00:00: mouth [place] 1,250 mcg 00 weekly. Medical (50,000 Branch unit) capsule ergocalcife 2023-0 Yes [id number] Take 1 [facility] rol, 5-15 capsule by ity of vitamin d2, 00:00: mouth [place] 1,250 mcg 00 weekly. Medical (50,000 Branch unit) capsule ergocalcife 2023-0 Yes [id number] Take 1 [facility] rol, 5-15 capsule by ity of vitamin d2, 00:00: mouth [place] 1,250 mcg 00 weekly. Medical (50,000 Branch unit) capsule ergocalcife 2023-0 Yes [id number] Take 1 [facility] rol, 5-15 capsule by ity of vitamin d2, 00:00: mouth [place] 1,250 mcg 00 weekly. Medical (50,000 Branch unit) capsule ergocalcife 2023-0 Yes [id number] Take 1 [facility] rol, 5-15 capsule by ity of vitamin d2, 00:00: mouth [place] 1,250 mcg 00 weekly. Medical (50,000 Branch unit) capsule ergocalcife 2023-0 Yes [id number] Take 1 [facility] rol, 5-15 capsule by ity of vitamin d2, 00:00: mouth [place] 1,250 mcg 00 weekly. Medical (50,000 Branch unit) capsule ergocalcife 2023-0 Yes [id number] Take 1 [facility] rol, 5-15 capsule by ity of vitamin d2, 00:00: mouth [place] 1,250 mcg 00 weekly. Medical (50,000 Branch unit) capsule ergocalcife 2023-0 Yes [id number] Take 1 [facility] rol, 5-15 capsule by ity of vitamin d2, 00:00: mouth [place] 1,250 mcg 00 weekly. Medical (50,000 Branch unit) capsule ergocalcife 2023-0 Yes [id number] Take 1 [facility] rol, 5-15 capsule by ity of vitamin d2, 00:00: mouth [place] 1,250 mcg 00 weekly. Medical (50,000 Branch unit) capsule ergocalcife 2023-0 Yes [id number] Take 1 [facility] 5-[address] (VITAMIN 00:00: (50,000 Hospit a D2) 50,000 00 Units l unit total) by capsule mouth once a week. norgestimat 2022-0 Yes [id number] 1{tbl} Take 1 [facility] e-ethinyl 5-12 tablet by ity o f estradioL 00:00: [place] 0.25-35 00 the Medical mg-mcg per morning. Branc h tablet norgestimat 2022-0 Yes [id number] 1{tbl} Take 1 [facility] e-ethinyl 5-12 tablet by ity o f estradioL 00:00: [place] 0.25-35 00 the Medical mg-mcg per morning. Branc h tablet norgestimat 2022-0 Yes [id number] 1{tbl} Take 1 [facility] e-ethinyl 5-12 tablet by ity o f estradioL 00:00: mouth [place] 0.25-35 00 the Medical mg-mcg per morning. Branc h tablet norgestimat 2022-0 Yes [id number] 1{tbl} Take 1 [facility] e-ethinyl 5-12 tablet by ity o f estradioL 00:00: mouth [place] 0.25-35 00 the Medical mg-mcg per morning. Branc h tablet norgestimat 2022-0 Yes [id number] 1{tbl} Take 1 [facility] e-ethinyl 5-12 tablet by ity o f estradioL 00:00: mouth [place] 0.25-35 00 the Medical mg-mcg per morning. Branc h tablet norgestimat Yes [id number] 1{tbl} Take 1 [facility] e-ethinyl 5-12 tablet by ity o f estradioL 00:00: mouth [place] 0.25-35 00 the Medical mg-mcg per morning. Branc h tablet norgestimat Yes [id number] 1{tbl} Take 1 [facility] e-ethinyl 5-12 tablet by ity o f estradioL 00:00: mouth [place] 0.25-35 00 the Medical mg-mcg per morning. Branc h tablet norgestimat Yes [id number] 1{tbl} Take 1 [facility] e-ethinyl 5-12 tablet by ity o f estradioL 00:00: mouth [place] 0.25-35 00 the Medical mg-mcg per morning. Branc h tablet norgestimat Yes [id number] 1{tbl} Take 1 [facility] e-ethinyl 5-12 tablet by ity o f estradioL 00:00: mouth [place] 0.25-35 00 the Medical mg-mcg per morning. Branc h tablet norgestimat Yes [id number] 1{tbl} Take 1 [facility] e-ethinyl 5-12 tablet by ity o f estradioL 00:00: mouth [place] 0.25-35 00 the Medical mg-mcg per morning. Branc h tablet norgestimat 2022- No [id number] 1{tbl} Take 1 [facility] e-ethinyl 5-12 06-07 tablet by ity of estradioL 00:00: 00:00 mouth in [place] 0.25-35 00 :00 the Medical mg-mcg per morning. Branc h tablet norgestimat 2022- No [id number] 1{tbl} Take 1 [facility] e-ethinyl 5-12 06-07 tablet by ity of estradioL 00:00: 00:00 mouth in [place] 0.25-35 00 :00 the Medical mg-mcg per morning. Branc h tablet norgestimat 2022-0 2022- No [id number] 1{tbl} Take 1 [facility] e-ethinyl 5-12 06-07 tablet by ity of estradioL 00:00: 00:00 mouth [place] 0.25-35 00 :00 the Medical mg-mcg per morning. Branc h tablet norgestimat 2022-0 2022- No [id number] 1{tbl} Take 1 [facility] e-ethinyl 5-12 06-07 tablet by ity of estradioL 00:00: 00:00 mouth in [place] 0.25-35 00 :00 the Medical mg-mcg per morning. Branc h tablet norgestimat 2022-0 2022- No [id number] 1{tbl} Take 1 [facility] e-ethinyl 5-12 06-07 tablet by ity of estradioL 00:00: 00:00 mouth in [place] 0.25-35 00 :00 the Medical mg-mcg per morning. Branc h tablet norgestimat 2022-0 2022- No [id number] 1{tbl} Take 1 [facility] e-ethinyl 5-12 06-07 tablet by ity of estradioL 00:00: 00:00 mouth in [place] 0.25-35 00 :00 the Medical mg-mcg per morning. Branc h tablet norgestimat 2022-0 2022- No [id number] 1{tbl} Take 1 [facility] e-ethinyl 5-12 06-07 tablet by ity of estradioL 00:00: 00:00 mouth in [place] 0.25-35 00 :00 the Medical mg-mcg per morning. Branc h tablet phenytoin 2023-0 Yes 100mg Take 100 Uni vers sodium 5-09 mg by ity of extended 13:29: mouth in [place] (DILANTIN 56 the Medical ORAL) morning. Branch phenytoin 2023-0 Yes 100mg Take 100 [facility] vers sodium 5-09 mg by ity of extended 13:29: mouth in [place] (DILANTIN 56 the Medical ORAL) morning. Branch phenytoin 2023-0 Yes 100mg Take 100 [facility] vers sodium 5-09 mg by ity of extended 13:29: mouth in [place] (DILANTIN 56 the Medical ORAL) morning. Branch phenytoin 2023-0 Yes 100mg Take 100 [facility] vers sodium 5-09 mg by ity of extended 13:29: mouth in [place] (DILANTIN 56 the Medical ORAL) morning. Branch phenytoin 2023-0 Yes 100mg Take 100 [facility] vers sodium 5-09 mg by ity of extended 13:29: mouth in [place] (DILANTIN 56 the Medical ORAL) morning. Branch phenytoin 2023-0 Yes 100mg Take 100 [facility] vers sodium 5-09 mg by ity of extended 13:29: mouth in [place] (DILANTIN 56 the Medical ORAL) morning. Branch phenytoin 2023-0 Yes 100mg Take 100 [facility] vers sodium 5-09 mg by ity of extended 13:29: mouth in [place] (DILANTIN 56 the Medical ORAL) morning. Branch phenytoin 2023-0 Yes 100mg Take 100 [facility] vers sodium 5-09 mg by ity of extended 13:29: mouth in [place] (DILANTIN 56 the Medical ORAL) morning. Branch phenytoin 2023-0 Yes 100mg Take 100 [facility] vers sodium 5-09 mg by ity of extended 13:29: mouth in [place] (DILANTIN 56 the Medical ORAL) morning. Branch phenytoin 2023-0 Yes 100mg Take 100 [facility] vers sodium 5-09 mg by ity of extended 13:29: mouth in [place] (DILANTIN 56 the Medical ORAL) morning. Branch phenytoin 2023-0 Yes 100mg Take 100 [facility] vers sodium 5-09 mg by ity of extended 13:29: mouth in [place] (DILANTIN 56 the Medical ORAL) morning. Branch phenytoin 2023-0 Yes 100mg Take 100 [facility] vers sodium 5-09 mg by ity of extended 13:29: mouth in [place] (DILANTIN 56 the Medical ORAL) morning. Branch phenytoin 2023-0 Yes 100mg Take 100 [facility] vers sodium 5-09 mg by ity of extended 13:29: mouth in [place] (DILANTIN 56 the Medical ORAL) morning. Branch phenytoin 2023-0 Yes 100mg Take 100 [facility] vers sodium 5-09 mg by ity of extended 13:29: mouth in [place] (DILANTIN 56 the Medical ORAL) morning. Branch phenytoin 2023-0 Yes 100mg Take 100 [facility] vers sodium 5-09 mg by ity of extended 13:29: mouth in [place] (DILANTIN 56 the Medical ORAL) morning. Branch phenytoin 2023-0 Yes 100mg Take 100 [facility] vers sodium 5-09 mg by ity of extended 13:29: mouth in [place] (DILANTIN 56 the Medical ORAL) morning. Branch phenytoin 2023-0 Yes 100mg Take 100 [facility] vers sodium 5-09 mg by ity of extended 13:29: mouth in [place] (DILANTIN 56 the Medical ORAL) morning. Branch phenytoin 2023-0 Yes 100mg Take 100 [facility] vers sodium 5-09 mg by ity of extended 13:29: mouth in [place] (DILANTIN 56 the Medical ORAL) morning. Branch phenytoin 2023-0 Yes 100mg Take 100 [facility] vers sodium 5-09 mg by ity of extended 13:29: mouth in [place] (DILANTIN 56 the Medical ORAL) morning. Branch phenytoin 2023-0 Yes 100mg Take 100 [facility] vers sodium 5-09 mg by ity of extended 13:29: mouth in [place] (DILANTIN 56 the Medical ORAL) morning. Branch phenytoin 2023-0 Yes 100mg Take 100 [facility] vers sodium 5-09 mg by ity of extended 13:29: mouth in [place] (DILANTIN 56 the Medical ORAL) morning. Branch phenytoin 2023-0 Yes 100mg Take 100 [facility] vers sodium 5-09 mg by ity of extended 13:29: mouth in [place] (DILANTIN 56 the Medical ORAL) morning. Branch phenytoin 2023-0 Yes 100mg Take 100 [facility] vers sodium 5-09 mg by ity of extended 13:29: mouth in [place] (DILANTIN 56 the Medical ORAL) morning. Branch phenytoin 2023-0 Yes 100mg Take 100 [facility] vers sodium 5-09 mg by ity of extended 13:29: mouth in [place] (DILANTIN 56 the Medical ORAL) morning. Branch phenytoin 2023-0 Yes 100mg Take 100 [facility] vers sodium 5-09 mg by ity of extended 13:29: mouth in [place] (DILANTIN 56 the Medical ORAL) morning. Branch phenytoin 2023-0 Yes 100mg Take 100 [facility] vers sodium 5-09 mg by ity of extended 13:29: mouth in [place] (DILANTIN 56 the Medical ORAL) morning. Branch phenytoin 2023-0 Yes 100mg Take 100 [facility] vers sodium 5-09 mg by ity of extended 13:29: mouth in [place] (DILANTIN 56 the Medical ORAL) morning. Branch phenytoin 2023-0 Yes 100mg Take 100 [facility] vers sodium 5-09 mg by ity of extended 13:29: mouth in [place] (DILANTIN 56 the Medical ORAL) morning. Branch phenytoin 2023-0 Yes 100mg Take 100 [facility] vers sodium 5-09 mg by ity of extended 13:29: mouth in [place] (DILANTIN 56 the Medical ORAL) morning. Branch phenytoin 2023-0 Yes 100mg Take 100 [facility] vers sodium 5-09 mg by ity of extended 13:29: mouth in [place] (DILANTIN 56 the Medical ORAL) morning. Branch phenytoin 2023-0 Yes 100mg Take 100 [facility] vers sodium 5-09 mg by ity of extended 13:29: mouth in [place] (DILANTIN 56 the Medical ORAL) morning. Branch phenytoin 2023-0 Yes 100mg Take 100 [facility] vers sodium 5-09 mg by ity of extended 13:29: mouth in [place] (DILANTIN 56 the Medical ORAL) morning. Branch phenytoin 2023-0 Yes 100mg Take 100 [facility] vers sodium 5-09 mg by ity of extended 13:29: mouth in [place] (DILANTIN 56 the Medical ORAL) morning. Branch phenytoin 2023-0 Yes 100mg Take 100 [facility] vers sodium 5-09 mg by ity of extended 13:29: mouth in [place] (DILANTIN 56 the Medical ORAL) morning. Branch phenytoin 2023-0 Yes 100mg Take 100 [facility] vers sodium 5-09 mg by ity of extended 13:29: mouth in [place] (DILANTIN 56 the Medical ORAL) morning. Branch phenytoin 2023-0 Yes 100mg Take 100 [facility] vers sodium 5-09 mg by ity of extended 13:29: mouth in [place] (DILANTIN 56 the Medical ORAL) morning. Branch phenytoin 2023-0 Yes 100mg Take 100 Uni vers sodium 5-09 mg by ity of extended 13:29: mouth in [place] (DILANTIN 56 the Medical ORAL) morning. Branch phenytoin 2023-0 Yes 100mg Take 100 [facility] sodium 5-09 mg by ity of extended 13:29: mouth in [place] (DILANTIN 56 the Medical ORAL) morning. Branch phenytoin 2023-0 Yes 100mg Take 100 [facility] sodium 5-09 mg by ity of extended 13:29: mouth in [place] (DILANTIN 56 the Medical ORAL) morning. Branch phenytoin 2023-0 Yes 100mg Take 100 [facility] sodium 5-09 mg by ity of extended 13:29: mouth in [place] (DILANTIN 56 the Medical ORAL) morning. Branch phenytoin 2023-0 Yes 100mg Take 100 [facility] sodium 5-09 mg by ity of extended 13:29: mouth in [place] (DILANTIN 56 the Medical ORAL) morning. Branch phenytoin 2023-0 Yes 100mg Take 100 [facility] sodium 5-09 mg by ity of extended 13:29: mouth in [place] (DILANTIN 56 the Medical ORAL) morning. Branch phenytoin 2023-0 Yes 100mg Take 100 [facility] sodium 5-09 mg by ity of extended 13:29: mouth in [place] (DILANTIN 56 the Medical ORAL) morning. Branch phenytoin 2023-0 Yes 100mg Take 100 [facility] sodium 5-09 mg by ity of extended 13:29: mouth in [place] (DILANTIN 56 the Medical ORAL) morning. Branch phenytoin 2023-0 Yes 100mg Take 100 [facility] sodium 5-09 mg by ity of extended 13:29: mouth in [place] (DILANTIN 56 the Medical ORAL) morning. Branch phenytoin 2023-0 Yes 100mg Take 100 [facility] sodium 5-09 mg by ity of extended 13:29: mouth in [place] (DILANTIN 56 the Medical ORAL) morning. Branch phenytoin 2023-0 Yes 100mg Take 100 [facility] sodium 5-09 mg by ity of extended 13:29: mouth in [place] (DILANTIN 56 the Medical ORAL) morning. Branch phenytoin 2023-0 Yes 100mg Take 100 [facility] sodium 5-09 mg by ity of extended 13:29: mouth in [place] (DILANTIN 56 the Medical ORAL) morning. Branch phenytoin 2023-0 Yes 100mg Take 100 [facility] sodium 5-09 mg by ity of extended 13:29: mouth in [place] (DILANTIN 56 the Medical ORAL) morning. Branch phenytoin 2023-0 Yes 100mg Take 100 [facility] sodium 5-09 mg by ity of extended 13:29: mouth in [place] (DILANTIN 56 the Medical ORAL) morning. Branch phenytoin 2023-0 Yes 100mg Take 100 [facility] sodium 5-09 mg by ity of extended 13:29: mouth in [place] (DILANTIN 56 the Medical ORAL) morning. Branch ergocalcife 2023-0 Yes [id number] Take 1 [facility] rol, 5-05 capsule by ity of vitamin d2, 00:00: mouth [place] 1,250 mcg 00 weekly. Medical (50,000 Branch unit) capsule calcium 2023-0 Yes [id number] 1{tbl} Take 1 Un ramses carbonate 5-05 tablet by ity o f (CALCIUM 00:00: mouth in [place] 500) 500 mg 00 the Medical calcium morning. Branch (1,250 mg) chewable tablet ergocalcife 2023-0 Yes [id number] Take 1 [facility] rol, 5-05 capsule by ity of vitamin d2, 00:00: mouth [place] 1,250 mcg 00 weekly. Medical (50,000 Branch unit) capsule calcium 2023-0 Yes [id number] 1{tbl} Take 1 Un ramses carbonate 5-05 tablet by ity o f (CALCIUM 00:00: mouth in [place] 500) 500 mg 00 the Medical calcium morning. Branch (1,250 mg) chewable tablet ergocalcife 2023-0 Yes [id number] Take 1 [facility] rol, 5-05 capsule by ity of vitamin d2, 00:00: mouth [place] 1,250 mcg 00 weekly. Medical (50,000 Branch unit) capsule calcium 2023-0 Yes [id number] 1{tbl} Take 1 Un ramses carbonate 5-05 tablet by ity o f (CALCIUM 00:00: mouth in [place] 500) 500 mg 00 the Medical calcium morning. Branch (1,250 mg) chewable tablet ergocalcife 2023-0 Yes [id number] Take 1 [facility] rol, 5-05 capsule by ity of vitamin d2, 00:00: mouth [place] 1,250 mcg 00 weekly. Medical (50,000 Branch unit) capsule calcium 2023-0 Yes [id number] 1{tbl} Take 1 Un ramses carbonate 5-05 tablet by ity o f (CALCIUM 00:00: mouth in [place] 500) 500 mg 00 the Medical calcium morning. Branch (1,250 mg) chewable tablet ergocalcife 2023-0 Yes [id number] Take 1 [facility] rol, 5-05 capsule by ity of vitamin d2, 00:00: mouth [place] 1,250 mcg 00 weekly. Medical (50,000 Branch unit) capsule calcium 2023-0 Yes [id number] 1{tbl} Take 1 Un ramses carbonate 5-05 tablet by ity o f (CALCIUM 00:00: mouth in [place] 500) 500 mg 00 the Medical calcium morning. Branch (1,250 mg) chewable tablet ergocalcife 2023-0 Yes [id number] Take 1 [facility] rol, 5-05 capsule by ity of vitamin d2, 00:00: mouth [place] 1,250 mcg 00 weekly. Medical (50,000 Branch unit) capsule calcium 2023-0 Yes [id number] 1{tbl} Take 1 Un ramses carbonate 5-05 tablet by ity o f (CALCIUM 00:00: mouth in [place] 500) 500 mg 00 the Medical calcium morning. Branch (1,250 mg) chewable tablet calcium 2023-0 Yes [id number] 1{tbl} Take 1 Un ramses carbonate 5-05 tablet by ity o f (CALCIUM 00:00: mouth in [place] 500) 500 mg 00 the Medical calcium morning. Branch (1,250 mg) chewable tablet calcium 2023-0 Yes [id number] 1{tbl} Take 1 Un ramses carbonate 5-05 tablet by ity o f (CALCIUM 00:00: mouth in [place] 500) 500 mg 00 the Medical calcium morning. Branch (1,250 mg) chewable tablet calcium 2023-0 Yes [id number] 1{tbl} Take 1 Un ramses carbonate 5-05 tablet by ity o f (CALCIUM 00:00: mouth in [place] 500) 500 mg 00 the Medical calcium morning. Branch (1,250 mg) chewable tablet calcium 2023-0 Yes [id number] 1{tbl} Take 1 Un ramses carbonate 5-05 tablet by ity o f (CALCIUM 00:00: mouth in [place] 500) 500 mg 00 the Medical calcium morning. Branch (1,250 mg) chewable tablet calcium 2023-0 Yes [id number] 1{tbl} Take 1 Un ramses carbonate 5-05 tablet by ity o f (CALCIUM 00:00: mouth in [place] 500) 500 mg 00 the Medical calcium morning. Branch (1,250 mg) chewable tablet calcium 2023-0 Yes [id number] 1{tbl} Take 1 Un ramses carbonate 5-05 tablet by ity o f (CALCIUM 00:00: mouth in [place] 500) 500 mg 00 the Medical calcium morning. Branch (1,250 mg) chewable tablet calcium 2023-0 Yes [id number] 1{tbl} Take 1 Un ramses carbonate 5-05 tablet by ity o f (CALCIUM 00:00: mouth in [place] 500) 500 mg 00 the Medical calcium morning. Branch (1,250 mg) chewable tablet calcium 2023-0 Yes [id number] 1{tbl} Take 1 Un ramses carbonate 5-05 tablet by ity o f (CALCIUM 00:00: mouth in [place] 500) 500 mg 00 the Medical calcium morning. Branch (1,250 mg) chewable tablet calcium 2023-0 Yes [id number] 1{tbl} Take 1 Un ramses carbonate 5-05 tablet by ity o f (CALCIUM 00:00: mouth in [place] 500) 500 mg 00 the Medical calcium morning. Branch (1,250 mg) chewable tablet calcium 2023-0 Yes [id number] 1{tbl} Take 1 Un ramses carbonate 5-05 tablet by ity o f (CALCIUM 00:00: mouth in [place] 500) 500 mg 00 the Medical calcium morning. Branch (1,250 mg) chewable tablet calcium 2023-0 Yes [id number] 1{tbl} Take 1 Un ramses carbonate 5-05 tablet by ity o f (CALCIUM 00:00: mouth in [place] 500) 500 mg 00 the Medical calcium morning. Branch (1,250 mg) chewable tablet calcium 2023-0 Yes [id number] 1{tbl} Take 1 Un ramses carbonate 5-05 tablet by ity o f (CALCIUM 00:00: mouth in [place] 500) 500 mg 00 the Medical calcium morning. Branch (1,250 mg) chewable tablet calcium 2023-0 Yes [id number] 1{tbl} Take 1 Un ramses carbonate 5-05 tablet by ity o f (CALCIUM 00:00: mouth in [place] 500) 500 mg 00 the Medical calcium morning. Branch (1,250 mg) chewable tablet calcium 2023-0 Yes [id number] 1{tbl} Take 1 Un ramses carbonate 5-05 tablet by ity o f (CALCIUM 00:00: mouth in [place] 500) 500 mg 00 the Medical calcium morning. Branch (1,250 mg) chewable tablet calcium 2023-0 Yes [id number] 1{tbl} Take 1 Un ramses carbonate 5-05 tablet by ity o f (CALCIUM 00:00: mouth in [place] 500) 500 mg 00 the Medical calcium morning. Branch (1,250 mg) chewable tablet calcium 2023-0 Yes [id number] 1{tbl} Take 1 Un ramses carbonate 5-05 tablet by ity o f (CALCIUM 00:00: mouth in [place] 500) 500 mg 00 the Medical calcium morning. Branch (1,250 mg) chewable tablet calcium 2023-0 Yes [id number] 1{tbl} Take 1 Un ramses carbonate 5-05 tablet by ity o f (CALCIUM 00:00: mouth in [place] 500) 500 mg 00 the Medical calcium morning. Branch (1,250 mg) chewable tablet calcium 2023-0 Yes [id number] 1{tbl} Take 1 Un ramses carbonate 5-05 tablet by ity o f (CALCIUM 00:00: mouth in [place] 500) 500 mg 00 the Medical calcium morning. Branch (1,250 mg) chewable tablet calcium 2023-0 Yes [id number] 1{tbl} Take 1 Un ramses carbonate 5-05 tablet by ity o f (CALCIUM 00:00: mouth in [place] 500) 500 mg 00 the Medical calcium morning. Branch (1,250 mg) chewable tablet calcium 2023-0 Yes [id number] 1{tbl} Take 1 Un ramses carbonate 5-05 tablet by ity o f (CALCIUM 00:00: mouth in [place] 500) 500 mg 00 the Medical calcium morning. Branch (1,250 mg) chewable tablet calcium 2023-0 Yes [id number] 1{tbl} Take 1 Un ramses carbonate 5-05 tablet by ity o f (CALCIUM 00:00: mouth in [place] 500) 500 mg 00 the Medical calcium morning. Branch (1,250 mg) chewable tablet calcium 2023-0 Yes [id number] 1{tbl} Take 1 Un ramses carbonate 5-05 tablet by ity o f (CALCIUM 00:00: mouth in [place] 500) 500 mg 00 the Medical calcium morning. Branch (1,250 mg) chewable tablet calcium 2023-0 Yes [id number] 1{tbl} Take 1 Un ramses carbonate 5-05 tablet by ity o f (CALCIUM 00:00: mouth in [place] 500) 500 mg 00 the Medical calcium morning. Branch (1,250 mg) chewable tablet calcium 2023-0 Yes [id number] 1{tbl} Take 1 Un ramses carbonate 5-05 tablet by ity o f (CALCIUM 00:00: mouth in [place] 500) 500 mg 00 the Medical calcium morning. Branch (1,250 mg) chewable tablet calcium 2023-0 Yes [id number] 1{tbl} Take 1 Un ramses carbonate 5-05 tablet by ity o f (CALCIUM 00:00: mouth in [place] 500) 500 mg 00 the Medical calcium morning. Branch (1,250 mg) chewable tablet calcium 2023-0 Yes [id number] 1{tbl} Take 1 Un ramses carbonate 5-05 tablet by ity o f (CALCIUM 00:00: mouth in [place] 500) 500 mg 00 the Medical calcium morning. Branch (1,250 mg) chewable tablet calcium 2023-0 Yes [id number] 1{tbl} Take 1 Un ramses carbonate 5-05 tablet by ity o f (CALCIUM 00:00: mouth in [place] 500) 500 mg 00 the Medical calcium morning. Branch (1,250 mg) chewable tablet calcium 2023-0 Yes [id number] 1{tbl} Take 1 Un ramses carbonate 5-05 tablet by ity o f (CALCIUM 00:00: mouth in [place] 500) 500 mg 00 the Medical calcium morning. Branch (1,250 mg) chewable tablet calcium 2023-0 Yes [id number] 1{tbl} Take 1 Un ramses carbonate 5-05 tablet by ity o f (CALCIUM 00:00: mouth in [place] 500) 500 mg 00 the Medical calcium morning. Branch (1,250 mg) chewable tablet calcium 2023-0 Yes [id number] 1{tbl} Take 1 Un ramses carbonate 5-05 tablet by ity o f (CALCIUM 00:00: mouth in [place] 500) 500 mg 00 the Medical calcium morning. Branch (1,250 mg) chewable tablet calcium 2023-0 Yes [id number] 1{tbl} Take 1 Un ramses carbonate 5-05 tablet by ity o f (CALCIUM 00:00: mouth in [place] 500) 500 mg 00 the Medical calcium morning. Branch (1,250 mg) chewable tablet calcium 2023-0 Yes [id number] 1{tbl} Take 1 Un ramses carbonate 5-05 tablet by ity o f (CALCIUM 00:00: mouth in [place] 500) 500 mg 00 the Medical calcium morning. Branch (1,250 mg) chewable tablet calcium 2023-0 Yes [id number] 1{tbl} Take 1 Un ramses carbonate 5-05 tablet by ity o f (CALCIUM 00:00: mouth in [place] 500) 500 mg 00 the Medical calcium morning. Branch (1,250 mg) chewable tablet calcium 2023-0 Yes [id number] 1{tbl} Take 1 Un ramses carbonate 5-05 tablet by ity o f (CALCIUM 00:00: mouth in [place] 500) 500 mg 00 the Medical calcium morning. Branch (1,250 mg) chewable tablet calcium 2023-0 Yes [id number] 1{tbl} Take 1 Un ramses carbonate 5-05 tablet by ity o f (CALCIUM 00:00: mouth in [place] 500) 500 mg 00 the Medical calcium morning. Branch (1,250 mg) chewable tablet calcium 2023-0 Yes [id number] 1{tbl} Take 1 Un ramses carbonate 5-05 tablet by ity o f (CALCIUM 00:00: mouth in [place] 500) 500 mg 00 the Medical calcium morning. Branch (1,250 mg) chewable tablet calcium 2023-0 Yes [id number] 1{tbl} Take 1 Un ramses carbonate 5-05 tablet by ity o f (CALCIUM 00:00: mouth in [place] 500) 500 mg 00 the Medical calcium morning. Branch (1,250 mg) chewable tablet calcium 2023-0 Yes [id number] 1{tbl} Take 1 Un ramses carbonate 5-05 tablet by ity o f (CALCIUM 00:00: mouth in [place] 500) 500 mg 00 the Medical calcium morning. Branch (1,250 mg) chewable tablet calcium 2023-0 Yes [id number] 1{tbl} Take 1 Un ramses carbonate 5-05 tablet by ity o f (CALCIUM 00:00: mouth in [place] 500) 500 mg 00 the Medical calcium morning. Branch (1,250 mg) chewable tablet calcium 2023-0 Yes [id number] 1{tbl} Take 1 Un ramses carbonate 5-05 tablet by ity o f (CALCIUM 00:00: mouth in [place] 500) 500 mg 00 the Medical calcium morning. Branch (1,250 mg) chewable tablet calcium 2023-0 Yes [id number] 1{tbl} Take 1 Un ramses carbonate 5-05 tablet by ity o f (CALCIUM 00:00: mouth in [place] 500) 500 mg 00 the Medical calcium morning. Branch (1,250 mg) chewable tablet calcium 2023-0 Yes [id number] 1{tbl} Take 1 Un ramses carbonate 5-05 tablet by ity o f (CALCIUM 00:00: mouth in [place] 500) 500 mg 00 the Medical calcium morning. Branch (1,250 mg) chewable tablet calcium 2023-0 Yes [id number] 1{tbl} Take 1 Un ramses carbonate 5-05 tablet by ity o f (CALCIUM 00:00: mouth in [place] 500) 500 mg 00 the Medical calcium morning. Branch (1,250 mg) chewable tablet calcium 2023-0 Yes [id number] 1{tbl} Take 1 Un ramses carbonate 5-05 tablet by ity o f (CALCIUM 00:00: mouth in [place] 500) 500 mg 00 the Medical calcium morning. Branch (1,250 mg) chewable tablet calcium 2023-0 Yes [id number] 1{tbl} Take 1 Un ramses carbonate 5-05 tablet by ity o f (CALCIUM 00:00: mouth in [place] 500) 500 mg 00 the Medical calcium morning. Branch (1,250 mg) chewable tablet calcium 2023-0 Yes [id number] 1{tbl} Take 1 Un ramses carbonate 5-05 tablet by ity o f (CALCIUM 00:00: mouth in [place] 500) 500 mg 00 the Medical calcium morning. Branch (1,250 mg) chewable tablet calcium 2023-0 Yes 1250mg QD Chew 1 [facility] i carbonate 5-[address] (OS-MACKENZIE) 00:00: (1,250 mg [facility] 500 mg 00 total) l calcium every (1,250 mg) morning. chewable tablet ergocalcife 2023-0 2023- No [id number] Take 1 [facility] rol, 5-05 05-15 capsule by ity of vitamin d2, 00:00: 00:[place] 1,250 mcg 00 :00 weekly. Medical (50,000 Branch unit) capsule ergocalcife 2023-0 2023- No [id number] Take 1 [facility] rol, 5-05 05-15 capsule by ity of vitamin d2, 00:00: 00:00 [place] 1,250 mcg 00 :00 weekly. Medical (50,000 Branch unit) capsule NaCl 0.9% 2022-0 2022- No 1000mL at 999 Uni vers (NS) bolus 08-2621 mL/hr, ity of infusion 19:45: 21:40 1,000 [...] ity o f tablet 14:09: mouth in [address] and 1 tablet in the evening. levETIRAcet 2023-0 Yes 500mg Take 1 Uni vers am 500 mg 4-20 tablet by ity o f tablet 14:09: mouth in [address] and 1 tablet in the evening. levETIRAcet 2023-0 Yes 500mg Take 1 Uni vers am 500 mg 4-20 tablet by ity o f tablet 14:09: mouth in [address] and 1 tablet in the evening. levETIRAcet 2023-0 Yes 500mg Take 1 Uni vers am 500 mg 4-20 tablet by ity o f tablet 14:09: mouth in [address] and 1 tablet in the evening. levETIRAcet 2023-0 Yes 500mg Take 1 [facility] vers am 500 mg 4-20 tablet by ity o f tablet 14:09: mouth in [address] and 1 tablet in the evening. levETIRAcet 2023-0 Yes 500mg Take 1 [facility] vers am 500 mg 4-20 tablet by ity o f tablet 14:09: mouth in [address] and 1 tablet in the evening. levETIRAcet 2023-0 Yes 500mg Take 1 Uni vers am 500 mg 4-20 tablet by ity o f tablet 14:09: mouth in [place] [address] the Medical morning Branch and 1 tablet in the evening. levETIRAcet 2023-0 Yes 500mg Take 1 [facility] vers am 500 mg 4-20 tablet by ity o f tablet 14:09: mouth in [place] [address] the Medical morning Branch and 1 tablet in the evening. levETIRAcet 2023-0 Yes 500mg Take 1 Uni vers am 500 mg 4-20 tablet by ity o f tablet 14:09: mouth in [place] [address] the Medical morning Branch and 1 tablet in the evening. levETIRAcet 2023-0 Yes 500mg Take 1 Uni vers am 500 mg 4-20 tablet by ity o f tablet 14:09: mouth in [place] [address] the Medical morning Branch and 1 tablet in the evening. levETIRAcet 2023-0 Yes 500mg Take 1 Uni vers am 500 mg 4-20 tablet by ity o f tablet 14:09: mouth in [place] [address] the [facility] morning [place] and 1 tablet in the evening. levETIRAcet 2023-0 Yes 500mg Take 1 Uni vers am 500 mg 4-20 tablet by ity o f tablet 14:09: mouth in [place] [address] the Medical morning Branch and 1 tablet in the evening. levETIRAcet 2023-0 Yes 500mg Take 1 Uni vers am 500 mg 4-20 tablet by ity o f tablet 14:09: mouth in [place] [address] the Medical morning Branch and 1 tablet in the evening. levETIRAcet 2023-0 Yes 500mg Take 1 Uni vers am 500 mg 4-20 tablet by ity o f tablet 14:09: mouth in [place] [address] the Medical morning Branch and 1 tablet in the evening. levETIRAcet 2023-0 Yes 500mg Take 1 Uni vers am 500 mg 4-20 tablet by ity o f tablet 14:09: mouth in [place] [address] the Medical morning Branch and 1 tablet in the evening. levETIRAcet 2023-0 Yes 500mg Take 1 Uni vers am 500 mg 4-20 tablet by ity o f tablet 14:09: mouth in [place] [address] the Medical morning Branch and 1 tablet in the evening. levETIRAcet 2023-0 Yes 500mg Take 1 Uni vers am 500 mg 4-20 tablet by ity o f tablet 14:09: mouth in [place] [address] the Medical morning Branch and 1 tablet in the evening. levETIRAcet 2023-0 Yes 500mg Take 1 Uni vers am 500 mg 4-20 tablet by ity o f tablet 14:09: mouth in [place] [address] the Medical morning Branch and 1 tablet in the evening. levETIRAcet 2023-0 Yes 500mg Take 1 Uni vers am 500 mg 4-20 tablet by ity o f tablet 14:09: mouth in [place] [address] the Medical morning Branch and 1 tablet in the evening. levETIRAcet 2023-0 Yes 500mg Take 1 Uni vers am 500 mg 4-20 tablet by ity o f tablet 14:09: mouth in [place] [address] the Medical morning Branch and 1 tablet in the evening. levETIRAcet 2023-0 Yes 500mg Take 1 Uni vers am 500 mg 4-20 tablet by ity o f tablet 14:09: mouth in [place] [address] the Medical morning Branch and 1 tablet in the evening. levETIRAcet 2023-0 Yes 500mg Take 1 Uni vers am 500 mg 4-20 tablet by ity o f tablet 14:09: mouth in [place] [address] the Medical morning Branch and 1 tablet in the evening. levETIRAcet 2023-0 Yes 500mg Take 1 Uni vers am 500 mg 4-20 tablet by ity o f tablet 14:09: mouth in [address] Medical morning Branch and 1 tablet in the evening. levETIRAcet 2023-0 Yes 500mg Take 1 Uni vers am 500 mg 4-20 tablet by ity o f tablet 14:09: mouth in [place] [address] the Medical morning Branch and 1 tablet in the evening. levETIRAcet 2023-0 Yes 500mg Take 1 Uni vers am 500 mg 4-20 tablet by ity o f tablet 14:09: mouth in [place] [address] the Medical morning Branch and 1 tablet in the evening. levETIRAcet 2023-0 Yes 500mg Take 1 Uni vers am 500 mg 4-20 tablet by ity o f tablet 14:09: mouth in [place] [address] the Medical morning Branch and 1 tablet in the evening. levETIRAcet 2023-0 Yes 500mg Take 1 Uni vers am 500 mg 4-20 tablet by ity o f tablet 14:09: mouth in [place] [address] the Medical morning Branch and 1 tablet in the evening. levETIRAcet 2023-0 Yes 500mg Take 1 Uni vers am 500 mg 4-20 tablet by ity o f tablet 14:09: mouth in [place] [address] the Medical morning Branch and 1 tablet in the evening. levETIRAcet 2023-0 Yes 500mg Take 1 Uni vers am 500 mg 4-20 tablet by ity o f tablet 14:09: mouth in [place] [address] the Medical morning Branch and 1 tablet in the evening. levETIRAcet 2023-0 Yes 500mg Take 1 Uni vers am 500 mg 4-20 tablet by ity o f tablet 14:09: mouth in [place] [address] the Medical morning Branch and 1 tablet in the evening. levETIRAcet 2023-0 Yes 500mg Take 1 Uni vers am 500 mg 4-20 tablet by ity o f tablet 14:09: mouth in [place] [address] the [facility] and 1 tablet in the evening. levETIRAcet 2023-0 Yes 500mg Take 1 Uni vers am 500 mg 4-20 tablet by ity o f tablet 14:09: mouth in [place] [address] the [facility] and 1 tablet in the evening. levETIRAcet 2023-0 Yes 500mg Take 1 Uni vers am 500 mg 4-20 tablet by ity o f tablet 14:09: mouth in [place] [address] the [facility] morning [place] and 1 tablet in the evening. levETIRAcet 2023-0 Yes 500mg Take 1 Uni vers am 500 mg 4-20 tablet by ity o f tablet 14:09: mouth in [address] morning [place] and 1 tablet in the evening. levETIRAcet 2023-0 Yes 500mg Take 1 Uni vers am 500 mg 4-20 tablet by ity o f tablet 14:09: mouth in [place] [address] the [facility] morning Branch and 1 tablet in the evening. levETIRAcet 2023-0 Yes 500mg Take 1 Uni vers am 500 mg 4-20 tablet by ity o f tablet 14:09: mouth in [place] [address] the [facility] morning [place] and 1 tablet in the evening. levETIRAcet 2023-0 Yes 500mg Take 1 Uni vers am 500 mg 4-20 tablet by ity o f tablet 14:09: mouth in [place] [address] the Medical morning Branch and 1 tablet in the evening. levETIRAcet 2023-0 Yes 500mg Take 1 Uni vers am 500 mg 4-20 tablet by ity o f tablet 14:09: mouth in [place] [address] the Medical morning Branch and 1 tablet in the evening. levETIRAcet 2023-0 Yes 500mg Take 1 Uni vers am 500 mg 4-20 tablet by ity o f tablet 14:09: mouth in [place] [address] the Medical morning Branch and 1 tablet in the evening. levETIRAcet 2023-0 Yes 500mg Take 1 Uni vers am 500 mg 4-20 tablet by ity o f tablet 14:09: mouth in [place] [address] the [facility] morning Branch and 1 tablet in the evening. levETIRAcet 2023-0 Yes 500mg Take 1 Uni vers am 500 mg 4-20 tablet by ity o f tablet 14:09: mouth in [place] [address] the [facility] morning Branch and 1 tablet in the evening. levETIRAcet 2023-0 Yes 500mg Take 1 Uni vers am 500 mg 4-20 tablet by ity o f tablet 14:09: mouth in [place] [address] the [facility] morning Branch and 1 tablet in the evening. levETIRAcet 2023-0 Yes 500mg Take 1 Uni vers am 500 mg 4-20 tablet by ity o f tablet 14:09: mouth in [address] morning [place] and 1 tablet in the evening. levETIRAcet 2023-0 Yes 500mg Take 1 Uni vers am 500 mg 4-20 tablet by ity o f tablet 14:09: mouth in [address] and 1 tablet in the evening. levETIRAcet 2023-0 Yes 500mg Take 1 Uni vers am 500 mg 4-20 tablet by ity o f tablet 14:09: mouth in [address] morning [place] and 1 tablet in the evening. levETIRAcet 2023-0 Yes 500mg Take 1 Uni vers am 500 mg 4-20 tablet by ity o f tablet 14:09: mouth in [address] morning Branch and 1 tablet in the evening. levETIRAcet 2023-0 Yes 500mg Take 1 Uni vers am 500 mg 4-20 tablet by ity o f tablet 14:09: mouth in [address] morning Branch and 1 tablet in the evening. levETIRAcet 2023-0 Yes 500mg Take 1 Uni vers am 500 mg 4-20 tablet by ity o f tablet 14:09: mouth in [address] morning Branch and 1 tablet in the evening. levETIRAcet 2023-0 Yes 500mg Take 1 Uni vers am 500 mg 4-20 tablet by ity o f tablet 14:09: mouth in [address] and 1 tablet in the evening. levETIRAcet 2023-0 Yes 500mg Take 1 Uni vers am 500 mg 4-20 tablet by ity o f tablet 14:09: mouth in [address] and 1 tablet in the evening. levETIRAcet 2023-0 Yes 500mg Take 1 Uni vers am 500 mg 4-20 tablet by ity o f tablet 14:09: mouth in [address] and 1 tablet in the evening. levETIRAcet 2023-0 Yes 500mg Take 1 Uni vers am 500 mg 4-20 tablet by ity o f tablet 14:09: mouth in [address] and 1 tablet in the evening. levETIRAcet 2023-0 Yes 500mg Take 1 Uni vers am 500 mg 4-20 tablet by ity o f tablet 14:09: mouth in [address] and 1 tablet in the evening. levETIRAcet 2023-0 Yes 500mg Take 1 Uni vers am 500 mg 4-20 tablet by ity o f tablet 14:09: mouth in [address] and 1 tablet in the evening. levETIRAcet 2023-0 Yes 500mg Take 1 Uni vers am 500 mg 4-20 tablet by ity o f tablet 14:09: mouth in [address] and 1 tablet in the evening. levETIRAcet 2023-0 Yes 500mg Take 1 Uni vers am 500 mg 4-20 tablet by ity o f tablet 14:09: mouth in [address] and 1 tablet in the evening. levETIRAcet 2023-0 Yes 500mg Take 1 Uni vers am 500 mg 4-20 tablet by ity o f tablet 14:09: mouth in [address] and 1 tablet in the evening. escitalopra 2023-0 Yes [id number] 10mg Take 1 Univers m oxalate 4-20 tablet by ity o f 10 mg 00:00: mouth in [place] tablet 00 the Medical morning. Branch Take 1/2 tablet by mouth in the morning for the 1st week prior to transition ing to full dose. escitalopra 2023-0 Yes [id number] 10mg Take 1 Univers m oxalate 4-20 tablet by ity o f 10 mg 00:00: mouth in [place] tablet 00 the Medical morning. Branch Take 1/2 tablet by mouth in the morning for the 1st week prior to transition ing to full dose. escitalopra 2022-0 Yes [id number] 10mg Take 1 [facility] m oxalate 4-20 tablet by ity o f 10 mg 00:00: mouth in [place] tablet 00 the Medical morning. Branch Take 1/2 tablet by mouth in the morning for the 1st week prior to transition ing to full dose. escitalopra 2022-0 Yes [id number] 10mg Take 1 [facility] m oxalate 4-20 tablet by ity o f 10 mg 00:00: mouth in [place] tablet 00 the Medical morning. Branch Take 1/2 tablet by mouth in the morning for the 1st week prior to transition ing to full dose. escitalopra 2022-0 Yes [id number] 10mg Take 1 [facility] m oxalate 4-20 tablet by ity o f 10 mg 00:00: mouth in [place] tablet 00 the Medical morning. Branch Take 1/2 tablet by mouth in the morning for the 1st week prior to transition ing to full dose. escitalopra 2022-0 Yes [id number] 10mg Take 1 [facility] m oxalate 4-20 tablet by ity o f 10 mg 00:00: mouth in [place] tablet 00 the Medical morning. Branch Take 1/2 tablet by mouth in the morning for the 1st week prior to transition ing to full dose. escitalopra 2022-0 Yes [id number] 10mg Take 1 Univers m oxalate 4-20 tablet by ity o f 10 mg 00:00: mouth in [place] tablet 00 the Medical morning. Branch Take 1/2 tablet by mouth in the morning for the 1st week prior to transition ing to full dose. escitalopra 2022-0 Yes [id number] 10mg Take 1 [facility] m oxalate 4-20 tablet by ity o f 10 mg 00:00: mouth in [place] tablet 00 the Medical morning. Branch Take 1/2 tablet by mouth in the morning for the 1st week prior to transition ing to full dose. escitalopra 2022-0 Yes [id number] 10mg Take 1 [facility] m oxalate 4-20 tablet by ity o f 10 mg 00:00: mouth in [place] tablet 00 the Medical morning. Branch Take 1/2 tablet by mouth in the morning for the 1st week prior to transition ing to full dose. escitalopra 2023-0 Yes [id number] 10mg Take 1 [facility] m oxalate 4-20 tablet by ity o f 10 mg 00:00: mouth in [place] tablet 00 the Medical morning. Branch Take 1/2 tablet by mouth in the morning for the 1st week prior to transition ing to full dose. escitalopra 3-0 Yes [id number] 10mg Take 1 [facility] m oxalate 4-20 tablet by ity o f 10 mg 00:00: mouth in [place] tablet 00 the Medical morning. Branch Take 1/2 tablet by mouth in the morning for the 1st week prior to transition ing to full dose. escitalopra 3-0 Yes [id number] 10mg Take 1 [facility] m oxalate 4-20 tablet by ity o f 10 mg 00:00: mouth in [place] tablet 00 the Medical morning. Branch Take 1/2 tablet by mouth in the morning for the 1st week prior to transition ing to full dose. escitalopra 2022-0 Yes [id number] 10mg Take 1 [facility] m oxalate 4-20 tablet by ity o f 10 mg 00:00: mouth in [place] tablet 00 the Medical morning. Branch Take 1/2 tablet by mouth in the morning for the 1st week prior to transition ing to full dose. escitalopra 2022-0 Yes [id number] 10mg Take 1 [facility] m oxalate 4-20 tablet by ity o f 10 mg 00:00: mouth in [place] tablet 00 the Medical morning. Branch Take 1/2 tablet by mouth in the morning for the 1st week prior to transition ing to full dose. escitalopra 3-0 Yes [id number] 10mg Take 1 [facility] m oxalate 4-20 tablet by ity o f 10 mg 00:00: mouth in [place] tablet 00 the Medical morning. Branch Take 1/2 tablet by mouth in the morning for the 1st week prior to transition ing to full dose. escitalopra 3-0 Yes [id number] 10mg Take 1 [facility] m oxalate 4-20 tablet by ity o f 10 mg 00:00: mouth in [place] tablet 00 the Medical morning. Branch Take 1/2 tablet by mouth in the morning for the 1st week prior to transition ing to full dose. escitalopra 2023-0 2023- No [id number] 10mg Take 1 [facility] m oxalate 4-20 - tablet by ity of 10 mg 00:00: 00:00 mouth in [place] tablet 00 :00 the Medical morning. Branch Take 1/2 tablet by mouth in the morning for the 1st week prior to transition ing to full dose. escitalopra 2022- No [id number] 10mg Take 1 [facility] m oxalate 4-20 - tablet by ity of 10 mg 00:00: 00:00 mouth in [place] tablet 00 :00 the Medical morning. Branch Take 1/2 tablet by mouth in the morning for the 1st week prior to transition ing to full dose. escitalopra 2022- No [id number] 10mg Take 1 [facility] m oxalate 20 - tablet by ity of 10 mg 00:00: 00:00 mouth in [place] tablet 00 :00 the Medical morning. Branch Take 1/2 tablet by mouth in the morning for the 1st week prior to transition ing to full dose. escitalopra 2022- No [id number] 10mg Take 1 [facility] m oxalate 08-25- tablet by ity of 10 mg 00:00: 00:00 mouth in [place] tablet 00 :00 the Medical morning. Branch Take 1/2 tablet by mouth in the morning for the 1st week prior to transition ing to full dose. diazePAM 2022- No [id number] 10mg Take 1 U nivers (VALIUM) 10 4-11 04-12 tablet by it y of mg tablet 00:00: 04:59 mouth [place] 00 :00 now for 1 Medical dose. Branch diazePAM 2022- No [id number] 10mg Take 1 U nivers (VALIUM) 10 4-11 04-12 tablet by it y of mg tablet 00:00: 04:59 mouth once [place] 00 :00 now for 1 Medical dose. Branch diazePAM 2022- No [id number] 10mg Take 1 U nivers (VALIUM) 10 4-11 04-12 tablet by it y of mg tablet 00:00: 04:59 mouth [place] 00 :00 now for 1 Medical dose. [place] levETIRAcet Yes 500mg Take 1 Uni vers [...] ity of 500 mg 14:35: mouth in [place] tablet 57 the Medical morning Branch and 1 tablet in the evening. levETIRAcet 2023-0 Yes 500mg Take 1 Uni vers am (KEPPRA) 4-07 tablet by ity of 500 mg 14:35: mouth in [place] tablet 57 the Medical morning Branch and 1 tablet in the evening. norgestimat 2023-0 Yes [id number] 1{tbl} Take 1 Univers e-ethinyl 4-07 tablet by [place]y o f estradioL 00:00: [place] (ORTHO 00 the Medical TRI-CYCLEN morning. [facility] h , 28,) 0.18/0.215/ 0.25 mg-25 mcg tablet norgestimat 2023-0 Yes [id number] 1{tbl} Take 1 Univers e-ethinyl 4-07 tablet by ity o f estradioL 00:00: [place] ([place]THO 00 the Medical TRI-CYCLEN morning. [facility] h , 28,) 0.18/0.215/ 0.25 mg-25 mcg tablet norgestimat 2023-0 Yes [id number] 1{tbl} Take 1 [facility] e-ethinyl 4-07 tablet by ity o f estradioL 00:00: [place] (ORTHO 00 the Medical TRI-CYCLEN morning. Bran h [place], 28,) 0.18/0.215/ 0.25 mg-25 mcg tablet norgestimat 2023-0 Yes [id number] 1{tbl} Take 1 Univers e-ethinyl 4-07 tablet by ity o f estradioL 00:00: [place] (ORTHO 00 the Medical TRI-CYCLE morning. [facility], 28,) 0.18/0.215/ 0.25 mg-25 mcg tablet norgestimat 2023-0 Yes [id number] 1{tbl} Take 1 Univers e-ethinyl 4-07 tablet by ity o f estradioL 00:00: [place] (ORTHO 00 the -CYCLE morning. [facility], 28,) 0.18/0.215/ 0.25 mg-25 mcg tablet norgestimat 2023-0 Yes [id number] 1{tbl} Take 1 Univers e-ethinyl 4-07 tablet by ity o f estradioL 00:00: [place] (ORTHO 00 the -CYCLE. [facility], 28,) 0.18/0.215/ 0.25 mg-25 mcg tablet norgestimat 2023-0 Yes [id number] 1{tbl} Take 1 Univers e-ethinyl 4-07 tablet by ity o f estradioL 00:00: [place] (ORTHO 00 the -CYCLE morning. [facility], 28,) 0.18/0.215/ 0.25 mg-25 mcg tablet norgestimat 2023-0 Yes [id number] 1{tbl} Take 1 Univers e-ethinyl 4-07 tablet by ity o f estradioL 00:00: [place] (ORTHO 00 the CYCLE. [facility], 28,) 0.18/0.215/ 0.25 mg-25 mcg tablet norgestimat 2023-0 Yes [id number] 1{tbl} Take 1 [facility] e-ethinyl 4-07 tablet by ity o f estradioL 00:00: [place] (ORTHO 00 the CYCLE. [facility], 28,) 0.18/0.215/ 0.25 mg-25 mcg tablet norgestimat 2023-0 Yes [id number] 1{tbl} Take 1 [facility] e-ethinyl 4-07 tablet by ity o f estradioL 00:00: [place] ([place]THO 00 the Medical TRI-CYCLE morning. [facility] [place], 28,) 0.18/0.215/ 0.25 mg-25 mcg tablet norgestimat 2023-0 Yes [id number] 1{tbl} Take 1 Univers e-ethinyl 4-07 tablet by ity o f estradioL 00:00: [place] (ORTHO 00 the Medical TRI-CYCLEN morning. Bran [facility] [place], 28,) 0.18/0.215/ 0.25 mg-25 mcg tablet norgestimat 2023-0 Yes [id number] 1{tbl} Take 1 Univers e-ethinyl 4-07 tablet by ity o f estradioL 00:00: [place] (ORTHO 00 the Medical TRI-CYCLEN morning. Bran [facility] [place], 28,) 0.18/0.215/ 0.25 mg-25 mcg tablet norgestimat 2023-0 Yes [id number] 1{tbl} Take 1 Univers e-ethinyl 4-07 tablet by ity o f estradioL 00:00: [place] (ORTHO 00 the Medical TRI-CYCLEN morning. Bran h [place], 28,) 0.18/0.215/ 0.25 mg-25 mcg tablet norgestimat 2023-0 Yes [id number] 1{tbl} Take 1 [facility] e-ethinyl 4-07 tablet by ity o f estradioL 00:00: [place] (ORTHO 00 the Medical TRI-CYCLEN morning. Bran h [place], 28,) 0.18/0.215/ 0.25 mg-25 mcg tablet norgestimat 2023-0 2023- No [id number] 1{tbl} Take 1 Univers e-ethinyl 4-07 05-12 tablet by ity of estradioL 00:00: 00:00 mouth in [place] (ORTHO 00 :00 the Medical TRI-CYCLEN morning. Bran h [place], 28,) 0.18/0.215/ 0.25 mg-25 mcg tablet norgestimat 2023-0 2023- No [id number] 1{tbl} Take 1 Univers e-ethinyl 4-07 05-12 tablet by ity of estradioL 00:00: 00:00 mouth in [place] (ORTHO 00 :00 the Medical TRI-CYCLEN morning. Bran h [place], 28,) 0.18/0.215/ 0.25 mg-25 mcg tablet norgestimat 2022- No [id number] 1{tbl} Take 1 Univers e-ethinyl 4-07 -12 tablet by ity of estradioL 00:00: 00:00 mouth in [place] (ORTHO 00 :00 the Medical TRI-CYCLEN morning. [facility], 28,) 0.18/0.215/ 0.25 mg-25 mcg tablet No known No No known Unive rs medications 1-25 medication it y of 21:43: [address] No known No No known Unive rs medications 1-25 medication it y of 21:43: [address] No known No No known Unive rs medications 1-25 medication it y of 21:43: [address] No known 2021-05 No No known Unive rs medications 2-22 medication it y of 15:02: [address] No known 2021-05 No No known Unive rs medications 2-22 medication it y of 15:02: [address] No known 2021-05 No No known Unive rs medications 2-22 medication it y of 15:02: [address] No known 2021-05 No No known Unive rs medications 2-22 medication it y of 14:26: s [address] No known 2021-05 No No known Unive rs medications 2-15 medication it y of 17:38: s [address] oseltamivir 2021-05- No [id number] 75mg Take 1 Univers (TAMIFLU) 2-15 -21 capsule by ity of 75 mg 00:00: 05:59 mouth in [place] capsule 00 :00 the Medical morning Branch and 1 capsule in the evening. Do all this for 5 days. oseltamivir 2021-05- No [id number] 75mg Take 1 Univers (TAMIFLU) 2-15 12-21 capsule by ity of 75 mg 00:00: 05:59 mouth in [place] capsule 00 :00 the Medical morning Branch and 1 capsule in the evening. Do all this for 5 days. oseltamivir 2021-05- No [id number] 75mg Take 1 Univers (TAMIFLU) 2-15 12-21 capsule by ity of 75 mg 00:00: [...] 2-12 Oral, ity of (TYLENOL) 16:31: Q6HPRN, [place] tablet 650 46 Starting Medic al mg on Mon Branch 04/18/22 at 1031, Until Discontinu ed, Routine, Pain (scale 1-3) LORazepam 2021-05 Yes 2mg 2 mg, Slow Un ramses (ATIVAN) 2-12 IV Push, ity of injection 2 16:30: PRN - SEE [place] mg 39 INSTRUCT Medical NS, 2 Branch doses, Starting on Mon04/18/22 at 1030, Until Discontinu ed, STAT, For seizure lasting two minutes or longer. lacosamide 2021-05 Yes [id number] 50mg Take 1 U nivers (VIMPAT) 50 2-08 tablet by ity of mg tablet 00:00: mouth [place] 00 every 8 Medical (eight) Branch hours. lacosamide 2021-05 Yes [id number] 50mg Take 1 U nivers (VIMPAT) 50 2-08 tablet by ity of mg tablet 00:00: mouth [place] 00 every 8 Medical (eight) Branch hours. lacosamide 2021-05- No [id number] 50mg Take 1 Univers (VIMPAT) 50 2-08 12-15 tablet by it y of mg tablet 00:00: 00:00 mouth [place] 00 :00 every 8 Medical (eight) Branch hours. lacosamide 2021-05 Yes [id number] 50mg Take 1 U nivers (VIMPAT) 50 2-07 tablet by ity of mg tablet 00:00: mouth [place] 00 every 8 Medical (eight) Branch hours. lacosamide 2021-05- No [id number] 50mg Take 1 Univers (VIMPAT) 50 2-07 12-08 tablet by it y of mg tablet 00:00: 00:00 mouth [place] 00 :00 every 8 Medical (eight) Branch hours. lacosamide 2021-05- No [id number] 50mg Take 1 Univers (VIMPAT) 50 2- 12-08 tablet by it y of mg tablet 00:00: 00:00 mouth [place] 00 :00 every 8 Medical (eight) Branch hours. lacosamide 2021-05 Yes [id number] 50mg Take 1 U nivers (VIMPAT) 50 1-30 tablet by ity of mg tablet 00:00: mouth [place] 00 every 8 Medical (eight) Branch hours. lacosamide 2021-05- No [id number] 50mg Take 1 Univers (VIMPAT) 50 1-30 12- tablet by it y of mg tablet 00:00: 00:00 mouth [place] 00 :00 every 8 Medical (eight) Branch hours. gadobenate 2021-05- No [id number] .2mL/kg 0.2 mL/kg, [place] [facility] dimeglumine 06-06 Intravenou i ty of (MULTIHANCE 00:00: 23:52 s, ONCE, 1 [place] -10 mL) 00 :00 dose, On Medical injection [facility] 0.2 mL/kg 04/05/22 at 1800, Routine pantoprazol 2021-05 Yes 40mg 40 mg, Univ ers e 1-14 Oral, ity of (PROTONIX) 15:00: DAILY, [place] EC tablet 00 First dose Medi mackenzie 40 mg on [facility] Branch 03/21/22 at 0900, Until Discontinu ed, Routine levETIRAcet 2021-05 Yes 1500mg 1,500 mg, Univers am (KEPPRA) 1-14 Oral, BID, it y of tablet 14:00: First dose [place] 1,500 mg 00 on [facility] 03/21/22 Branch at 0800, Until Discontinu ed, Routine heparin 2021-05 Yes 5000U 5,000 Univers (porcine) 1-14 Units, ity of injection 14:00: Subcut[place]o [place] 5,000 Units 00 us, Q12H, Med ical First dose Branch on [facility] 03/21/22 at 0800, Until Discontinu ed, Routine levETIRAcet 2021-05- No 1500mg 1,500 mg, Univers am (KEPPRA) 1-14 11-14 IV ity of in NACL 06:15: 06:01 Piggyback, [place] (ISO-OS) 00 :00 ONCE, 1 Medical 1,500 dose, On Branch mg/100 mL [facility] RTU 03/21/22 at 0015, Administer over 15 Minutes, 100 mL topiramate 2021-05 Yes 25mg 25 mg, Unive rs (TOPAMAX) 1-14 Oral, BID, ity of tablet 25 05:45: First dose [place] mg 00 on [facility] 03/20/22 Branch at 2345, Until Discontinu ed, Routine
geography faculty member approving Restricted medication : CARMEN TALBERT lacosamide 2021-05 Yes 50mg 50 mg, Unive rs (VIMPAT) 1-14 Oral, BID, ity o f tablet 50 04:00: First dose [place] mg 00 on [facility] 03/20/22 Branch at 2200, Until Discontinu ed, Routine
geography faculty member approving Restricted medication : CARMEN TALBERT NaCl 0.9% 2021-05 Yes 1000mL at 75 Unive rs (NS) IV 1-14 mL/hr, IV ity of infusion 04:00: Infusion, [place] 1,000 mL 00 CONTINUOUS Medic al , Starting Branch on [place] 03/20/22 at 2200, Until Discontinu ed, Routine LORazepam 2021-05 Yes 2mg 2 mg, Slow Un ramses (ATIVAN) 1-14 IV Push, ity of injection 2 03:59: PRN, 5 [place] mg 33 doses, Medical Starting Branch on [place] 03/20/22 at 2159, Until Discontinu ed, Routine, Seizures acetaminoph 2021-05 Yes 650mg 650 mg, Un ramses en 1-14 Oral, ity of (TYLENOL) 03:52: Q6HPRN, [place] tablet 650 20 Starting Medic al mg on [place] Branch 03/20/22 at 2152, Until Discontinu ed, Routine, Pain (scale 4-6) docusate 2021-05 Yes 100mg 100 mg, Unive rs (COLACE) 05-21 Oral, ity of capsule 100 03:52: QDAILYPRN, [place] mg 20 Starting Medical on [facility] 03/20/22 at 2152, Until Discontinu ed, Routine, Constipati on NaCl 0.9% 2021-05- No 1000mL at 999 Uni vers (NS) bolus 05-21 1114 mL/hr, ity of infusion 00:15: 00:00 1,000 mL, [place] 1,000 mL 00 :00 IV Medical Infusion, Branch ONCE, 1 dose, On [place] 03/20/22 at 1815, STAT LORazepam 2021-05- No 2mg 2 mg, Slow U nivers (ATIVAN) 05-20 IV Push, ity of injection 2 23:45: 23:43 ONCE, 1 [place] mg 00 :00 dose, On Medical [facility] 03/20/22 at 1745, STAT lacosamide 2021-05 Yes [id number] 50mg Take 1 U nivers (VIMPAT) 50 1-10 tablet by ity of mg tablet 00:00: mouth [place] the Medical morning Branch and 1 tablet in the evening. lacosamide 2021-05 Yes [id number] 50mg Take 1 U nivers (VIMPAT) 50 1-10 tablet by ity of mg tablet 00:00: mouth [place] 00 the Medical morning Branch and 1 tablet in the evening. lacosamide 2021-05 Yes [id number] 50mg Take 1 U nivers (VIMPAT) 50 1-10 tablet by ity of mg tablet 00:00: [place] 00 the Medical morning Branch and 1 tablet in the evening. lacosamide 2021-05 Yes [id number] 50mg Take 1 U nivers (VIMPAT) 50 1-10 tablet by ity of mg tablet 00:00: [place] 00 the Medical morning Branch and 1 tablet in the evening. lacosamide 2021-05 Yes [id number] 50mg Take 1 U nivers (VIMPAT) 50 1-10 tablet by ity of mg tablet 00:00: [place] 00 the Medical morning Branch and 1 tablet in the evening. lacosamide 2021-05 Yes [id number] 50mg Take 1 U nivers (VIMPAT) 50 1-10 tablet by ity of mg tablet 00:00: [place] 00 the Medical morning Branch and 1 tablet in the evening. lacosamide 2021-05 Yes [id number] 50mg Take 1 U nivers (VIMPAT) 50 1-10 tablet by ity of mg tablet 00:00: [place] 00 the Medical morning Branch and 1 tablet in the evening. lacosamide 2021-05- No [id number] 50mg Take 1 Univers (VIMPAT) 50 1-10 11-30 tablet by it y of mg tablet 00:00: 00:00 mouth in [place] 00 :00 the Medical morning Branch and 1 tablet in the evening. topiramate 2021-05 Yes [id number] 25mg Take 1 Univers 25 mg 1-03 tablet by ity of tablet 00:00: mouth in [place] 00 the Medical morning Branch and 1 tablet in the evening. topiramate 2021-05 Yes [id number] 25mg Take 1 Univers 25 mg 1-03 tablet by ity of tablet 00:00: mouth in [place] 00 the Medical morning Branch and 1 tablet in the evening. topiramate 2021-05 Yes [id number] 25mg Take 1 Univers 25 mg 1-03 tablet by ity of tablet 00:00: mouth in [place] 00 the Medical morning Branch and 1 tablet in the evening. topiramate 2021-05 Yes [id number] 25mg Take 1 Univers 25 mg 1-03 tablet by ity of tablet 00:00: mouth in [place] 00 the Medical morning Branch and 1 tablet in the evening. topiramate 2021-05 Yes [id number] 25mg Take 1 Univers 25 mg 1-03 tablet by ity of tablet 00:00: mouth in [place] 00 the Medical morning Branch and 1 tablet in the evening. topiramate 2021-05 Yes [id number] 25mg Take 1 Univers 25 mg 1-03 tablet by ity of tablet 00:00: mouth in [place] 00 the Medical morning Branch and 1 tablet in the evening. topiramate 2022-1 Yes [id number] 25mg Take 1 Univers 25 mg 1-03 tablet by ity of tablet 00:00: mouth in [place] 00 the Medical morning Branch and 1 tablet in the evening. topiramate 2021-1 Yes [id number] 25mg Take 1 Univers 25 mg 1-03 tablet by ity of tablet 00:00: mouth in [place] 00 the Medical morning Branch and 1 tablet in the evening. topiramate 2021-1 Yes [id number] 25mg Take 1 Univers 25 mg 1-03 tablet by ity of tablet 00:00: mouth in [place] 00 the Medical morning Branch and 1 tablet in the evening. topiramate 2021-1 Yes [id number] 25mg Take 1 Univers 25 mg 1-03 tablet by ity of tablet 00:00: mouth in [place] 00 the Medical morning Branch and 1 tablet in the evening. topiramate 2021-1 Yes [id number] 25mg Take 1 Univers 25 mg 1-03 tablet by ity of tablet 00:00: mouth in [place] 00 the Medical morning Branch and 1 tablet in the evening. topiramate 2021- Yes [id number] 25mg Take 1 Univers 25 mg 1-03 tablet by ity of tablet 00:00: mouth in [place] [address] the Medical morning Branch and 1 tablet in the evening. topiramate 2021-1 Yes [id number] 25mg Take 1 Univers 25 mg 1-03 tablet by ity of tablet 00:00: mouth in [place] 00 the Medical morning [place] and 1 tablet in the evening. topiramate 2021-1 Yes [id number] 25mg Take 1 Univers 25 mg 1-03 tablet by ity of tablet 00:00: mouth in [place] 00 the Medical morning [place] and 1 tablet in the evening. topiramate 2021-05- No [id number] 25mg Take 1 Univers 25 mg 1-03 12-15 tablet by ity of tablet 00:00: 00:00 mouth in [place] 00 :00 the Medical morning [place] and 1 tablet in the evening. topiramate 2021-0 Yes 25mg 25 mg, Unive rs (TOPAMAX) 01-31 Oral, ity of tablet 25 17:30: DAILY, [place] mg 00 First dose Medical on Mon Branch 01/31/22 at 1230, Until Discontinu ed, Routine
geography faculty member approving Restricted medication : CECILIA VASQUEZ SERTraline 2021-0 Yes 25mg 25 mg, Unive rs (ZOLOFT) 01-31 Oral, ity of tablet 25 14:00: DAILY, [place] mg 00 First dose Medical on [facility] 01/31/22 at 0900, Until Discontinu ed, Routine foLIC acid 2021-0 Yes 1mg 1 mg, Univer s (FOLATE) 01-31 Oral, ity of tablet 1 mg 14:00: DAILY, [place] 00 First dose Medical on [facility] 01/31/22 at 0900, Until Discontinu ed, [...] First dose [place] 1,500 mg 00 on [facility] 01/31/22 at Branch 0800, Until Discontinu ed, Routine acetaminoph 2021-0 Yes 650mg 650 mg, Un ramses en 01-31 Oral, ity of (TYLENOL) 04:06: Q6HPRN [place] tablet 650 49 Starting Medic al mg on [facility] 01/30/22 at 2306, Until Discontinu ed, Routine, Pain (scale 4-6) docusate 2021-0 Yes 100mg 100 mg, Unive rs (COLACE) 01-31 Oral, ity of capsule 100 04:06: QDAILYPRN, [place] mg 48 Starting Medical on [facility] 01/30/22 at 2306, Until Discontinu ed, Routine, Constipati on ondansetron 2021-0 Yes 4mg 4 mg, Unive rs (ZOFRAN-ODT 01-31 Oral, ity of ) 04:06: Q8HPRN, [place] disintegrat 36 Starting Medi mackenzie ing tablet on [place] Branch 4 mg 01/30/22 at 2306, Until Discontinu ed, Routine, Nausea and Vomiting (N/V) acetaminoph 2021-0 Yes 650mg 650 mg, Un ramses en 01-31 Oral, ity of (TYLENOL) 04:06: Q6HPRN, [place] tablet 650 15 Starting Medic al mg on [place] Branch 01/30/22 at 2306, Until Discontinu ed, Routine, Pain (scale 1-3), Temp > 38.5 C LORazepam 2021- No .5mg 0.5 mg, Univ ers (ATIVAN) 01-31 Slow IV ity of injection 01:30: 00:35 Push, [place] 0.5 mg 00 :00 ONCE, 1 Medical dose, On Branch 01/30/22 at 2030, STAT
Is the medication being used for status epilepticu s? No topiramate 2021-2022- No [id number] 25mg Take 1 Univers 25 mg 9-26 03-26 tablet by ity of tablet 00:00: 04:59 mouth in [place] 00 :00 [facility] for 180 days. topiramate 2021-3- No [id number] 25mg Take 1 Univers 25 mg 9-26 03-26 tablet by ity of tablet 00:00: 04:59 mouth in [place] 00 :00 [facility] for 180 days. topiramate 2021-0 3- No [id number] 25mg Take 1 Univers 25 mg 9-26 03-26 tablet by ity of tablet 00:00: 04:59 mouth in [place] 00 :00 [facility] for 180 days. topiramate 2021-0 3- No [id number] 25mg Take 1 Univers 25 mg 9-26 03-26 tablet by ity of tablet 00:00: 04:59 mouth in [place] 00 :00 [facility] for 180 days. topiramate 2021-0 3- No [id number] 25mg Take 1 Univers 25 mg 9-26 03-26 tablet by ity of tablet 00:00: 04:59 mouth in [place] 00 :00 [facility] for 180 days. topiramate 2021-0 3- No [id number] 25mg Take 1 Univers 25 mg 9-26 03-26 tablet by ity of tablet 00:00: 04:59 mouth in [place] 00 :00 [facility] for 180 days. topiramate 2021-0 3- No [id number] 25mg Take 1 Univers 25 mg 9-26 03-26 tablet by ity of tablet 00:00: 04:59 mouth in [place] 00 :00 [facility] for 180 days. topiramate 2021-0 3- No [id number] 25mg Take 1 Univers 25 mg 9-26 03-26 tablet by ity of tablet 00:00: 04:59 mouth in [place] 00 :00 [facility] for 180 days. topiramate 2021-0 3- No [id number] 25mg Take 1 Univers 25 mg 9-26 03-26 tablet by ity of tablet 00:00: 04:59 mouth in [place] 00 :00 [facility] for 180 days. topiramate 2021-0 3- No [id number] 25mg Take 1 Univers 25 mg 9-26 03-26 tablet by ity of tablet 00:00: 04:59 mouth in [place] 00 :00 [facility] for 180 days. topiramate 2021-0 2022- No [id number] 25mg Take 1 Univers 25 mg 9-26 03-26 tablet by ity of tablet 00:00: 04:59 mouth in [place] 00 :00 [facility] for 180 days. topiramate 2021-0 2021- No [id number] 25mg Take 1 Univers 25 mg 9-26 11-03 tablet by ity of tablet 00:00: 00:00 mouth in [place] 00 :00 [facility] for 180 days. topiramate 2021-2021- No [id number] 25mg Take 1 Univers 25 mg 9-26 11-03 tablet by ity of tablet 00:00: 00:00 mouth in [place] 00 :00 [facility] for 180 days. levETIRAcet 2021- No 1000mg 1,000 mg, Univers am (KEPPRA) 01-31 IV ity of in NACL 00:00: 23:38 Piggyback, Christiano as (ISO-OS) 00 :00 ONCE, 1 Medical 1,000 dose, On Branch mg/100 mL Sun RTU 01/30/22 at 1900, Administer over 15 Minutes, 100 mL NaCl 0.9% 2021- No 1000mL at 999 Uni vers (NS) bolus 01-30- mL/hr, ity of infusion 22:30: 23:15 1,000 [...] status epilepticu s? No levETIRAcet 2022- No [id number] 1500mg Take 2 Univers am 750 mg 01-27 tablets by ity of tablet 00:00: 04:59 mouth in [place] 00 :00 [facility] and 2 tablets in the evening. Do all this for 180 days. foLIC acid 2022- No [id number] 1mg Take 1 Univers 1 mg tablet 01-27 tablet by it y of 00:00: 04:59 mouth in [place] 00 :00 [facility] for 180 days. levETIRAcet 2022- No [id number] 1500mg Take 2 Univers am 750 mg 01-27 tablets by ity of tablet 00:00: 04:59 mouth in [place] 00 :00 [facility] and 2 tablets in the evening. Do all this for 180 days. foLIC acid 2022- No [id number] 1mg Take 1 Univers 1 mg tablet 01-27 tablet by it y of 00:00: 04:59 mouth in [place] 00 :00 [facility] for 180 days. levETIRAcet 2022- No [id number] 1500mg Take 2 Univers am 750 mg 01-27 tablets by ity of tablet 00:00: 04:59 mouth in [place] 00 :00 [facility] and 2 tablets in the evening. Do all this for 180 days. foLIC acid 2022- No [id number] 1mg Take 1 Univers 1 mg tablet 01-27 tablet by it y of 00:00: 04:59 mouth in [place] 00 :00 [facility] for 180 days. levETIRAcet 2022- No [id number] 1500mg Take 2 Univers am 750 mg 01-27 tablets by ity of tablet 00:00: 04:59 mouth in [place] 00 :00 the [facility] morning Branch and 2 tablets in the evening. Do all this for 180 days. foLIC acid 2022- No [id number] 1mg Take 1 Univers 1 mg tablet 01-27 tablet by it y of 00:00: 04:59 mouth in [place] 00 :00 the [facility] for 180 days. levETIRAcet 2022- No [id number] 1500mg Take 2 Univers am 750 mg 01-27 tablets by ity of tablet 00:00: 04:59 mouth in [place] 00 :00 the [facility] morning Branch and 2 tablets in the evening. Do all this for 180 days. foLIC acid 2022- No [id number] 1mg Take 1 Univers 1 mg tablet 01-27 tablet by it y of 00:00: 04:59 mouth in [place] 00 :00 the [facility] for 180 days. levETIRAcet 2022- No [id number] 1500mg Take 2 Univers am 750 mg 01-27 tablets by ity of tablet 00:00: 04:59 mouth in [place] 00 :00 the [facility] and 2 tablets in the evening. Do all this for 180 days. foLIC acid 2022- No [id number] 1mg Take 1 Univers 1 mg tablet 01-27 tablet by it y of 00:00: 04:59 mouth in [place] 00 :00 the [facility] for 180 days. levETIRAcet 2022- No [id number] 1500mg Take 2 Univers am 750 mg 01-27 tablets by ity of tablet 00:00: 04:59 mouth in [place] 00 :00 the [facility] morning Branch and 2 tablets in the evening. Do all this for 180 days. foLIC acid 2022- No [id number] 1mg Take 1 Univers 1 mg tablet 01-27 tablet by it y of 00:00: 04:59 mouth in [place] 00 :00 the [facility] morning [place] for 180 days. levETIRAcet 2022- No [id number] 1500mg Take 2 Univers am 750 mg 01-27 tablets by ity of tablet 00:00: 04:59 mouth in [place] 00 :00 the [facility] morning Branch and 2 tablets in the evening. Do all this for 180 days. foLIC acid 2022- No [id number] 1mg Take 1 Univers 1 mg tablet 01-27 tablet by it y of 00:00: 04:59 mouth in [place] 00 :00 the [facility] for 180 days. levETIRAcet 2021-2022- No [id number] 1500mg Take 2 Univers am 750 mg 01-27 tablets by ity of tablet 00:00: 04:59 mouth in [place] 00 :00 the [facility] and 2 tablets in the evening. Do all this for 180 days. foLIC acid 2022- No [id number] 1mg Take 1 Univers 1 mg tablet 01-27 tablet by it y of 00:00: 04:59 mouth in [place] 00 :00 the [facility] for 180 days. levETIRAcet 2022- No [id number] 1500mg Take 2 Univers am 750 mg 01-27 tablets by ity of tablet 00:00: 04:59 mouth in [place] 00 :00 [facility] and 2 tablets in the evening. Do all this for 180 days. foLIC acid 2022- No [id number] 1mg Take 1 Univers 1 mg tablet 01-27 tablet by it y of 00:00: 04:59 mouth in [place] 00 :00 the [facility] for 180 days. levETIRAcet 2022- No [id number] 1500mg Take 2 Univers am 750 mg 01-27 tablets by ity of tablet 00:00: 04:59 mouth in [place] 00 :00 [facility] and 2 tablets in the evening. Do all this for 180 days. foLIC acid 2022- No [id number] 1mg Take 1 Univers 1 mg tablet 01-27 tablet by it y of 00:00: 04:59 mouth in [place] 00 :00 the [facility] for 180 days. levETIRAcet 2021-0 2022- No [id number] 1500mg Take 2 Univers am 750 mg 01-27 tablets by ity of tablet 00:00: 04:59 mouth in [place] 00 :00 [facility] and 2 tablets in the evening. Do all this for 180 days. foLIC acid 2022- No [id number] 1mg Take 1 Univers 1 mg tablet 01-27 tablet by it y of 00:00: 04:59 mouth in [place] 00 :00 [facility] for 180 days. levETIRAcet 2022- No [id number] 1500mg Take 2 Univers am 750 mg 01-27 tablets by ity of tablet 00:00: 04:59 mouth in [place] 00 :00 the [facility] and 2 tablets in the evening. Do all this for 180 days. foLIC acid 2022- No [id number] 1mg Take 1 Univers 1 mg tablet 01-27 tablet by it y of 00:00: 04:59 mouth in [place] 00 :00 [facility] for 180 days. levETIRAcet 2022- No [id number] 1500mg Take 2 Univers am 750 mg 01-27 tablets by ity of tablet 00:00: 04:59 mouth in [place] 00 :00 [facility] and 2 tablets in the evening. Do all this for 180 days. foLIC acid 2022- No [id number] 1mg Take 1 Univers 1 mg tablet 01-27 tablet by it y of 00:00: 04:59 mouth in [place] 00 :00 [facility] for 180 days. levETIRAcet 2022- No [id number] 1500mg Take 2 Univers am 750 mg 01-27 tablets by ity of tablet 00:00: 04:59 mouth in [place] 00 :00 [facility] and 2 tablets in the evening. Do all this for 180 days. foLIC acid 2022- No [id number] 1mg Take 1 Univers 1 mg tablet 01-27 tablet by it y of 00:00: 04:59 mouth in [place] 00 :00 [facility] for 180 days. levETIRAcet 2021-0 2022- No [id number] 1500mg Take 2 Univers am 750 mg 01-27 tablets by ity of tablet 00:00: 04:59 mouth in [place] 00 :00 [facility] and 2 tablets in the evening. Do all this for 180 days. foLIC acid 2022- No [id number] 1mg Take 1 Univers 1 mg tablet 01-27 tablet by it y of 00:00: 04:59 mouth in [place] 00 :00 the [facility] for 180 days. levETIRAcet 2022- No [id number] 1500mg Take 2 Univers am 750 mg 01-27 tablets by ity of tablet 00:00: 04:59 mouth in [place] 00 :00 the [facility] Branch and 2 tablets in the evening. Do all this for 180 days. foLIC acid 2022- No [id number] 1mg Take 1 Univers 1 mg tablet 01-27 tablet by it y of 00:00: 04:59 mouth in [place] 00 :00 the [facility] for 180 days. levETIRAcet 2022- No [id number] 1500mg Take 2 Univers am 750 mg 01-27 tablets by ity of tablet 00:00: 04:59 mouth in [place] 00 :00 the [facility] and 2 tablets in the evening. Do all this for 180 days. foLIC acid 2022- No [id number] 1mg Take 1 Univers 1 mg tablet 01-27 tablet by it y of 00:00: 04:59 mouth in [place] 00 :00 the [facility] for 180 days. levETIRAcet 2022- No [id number] 1500mg Take 2 Univers am 750 mg 01-27 tablets by ity of tablet 00:00: 04:59 mouth in [place] 00 :00 the [facility] and 2 tablets in the evening. Do all this for 180 days. foLIC acid 2022- No [id number] 1mg Take 1 Univers 1 mg tablet 01-27 tablet by it y of 00:00: 04:59 mouth in [place] 00 :00 the [facility] for 180 days. levETIRAcet 0 2022- No [id number] 1500mg Take 2 Univers am 750 mg 01-27 tablets by ity of tablet 00:00: 04:59 mouth in [place] 00 :00 the [facility] and 2 tablets in the evening. Do all this for 180 days. foLIC acid 2022- No [id number] 1mg Take 1 Univers 1 mg tablet 9-22 03-22 tablet by it y of 00:00: 04:59 mouth in [place] 00 :00 [facility] for 180 days. levETIRAcet 2021-2022- No [id number] 1500mg Take 2 Univers am 750 mg 01-27 tablets by ity of tablet 00:00: 04:59 mouth in [place] 00 :00 the [facility] and 2 tablets in the evening. Do all this for 180 days. foLIC acid 2022- No [id number] 1mg Take 1 Univers 1 mg tablet 01-27 tablet by it y of 00:00: 04:59 mouth in [place] 00 :00 the [facility] for 180 days. levETIRAcet 2021-2022- No [id number] 1500mg Take 2 Univers am 750 mg 01-27 tablets by ity of tablet 00:00: 04:59 mouth in [place] 00 :00 [facility] and 2 tablets in the evening. Do all this for 180 days. foLIC acid 2022- No [id number] 1mg Take 1 Univers 1 mg tablet 01-27 tablet by it y of 00:00: 04:59 mouth in [place] 00 :00 [facility] for 180 days. levETIRAcet 2021-2022- No [id number] 1500mg Take 2 Univers am 750 mg 01-27 tablets by ity of tablet 00:00: 04:59 mouth in [place] 00 :00 [facility] and 2 tablets in the evening. Do all this for 180 days. foLIC acid 2022- No [id number] 1mg Take 1 Univers 1 mg tablet 01-27 tablet by it y of 00:00: 04:59 mouth in [place] 00 :00 [facility] for 180 days. levETIRAcet 2021-2022- No [id number] 1500mg Take 2 Univers am 750 mg 01-27 tablets by ity of tablet 00:00: 04:59 mouth in [place] 00 :00 [facility] and 2 tablets in the evening. Do all this for 180 days. foLIC acid 2022- No [id number] 1mg Take 1 Univers 1 mg tablet 01-27 tablet by it y of 00:00: 04:59 mouth in [place] 00 :00 [facility] for 180 days. levETIRAcet 2022- No [id number] 1500mg Take 2 Univers am 750 mg 01-27 tablets by ity of tablet 00:00: 04:59 mouth in [place] 00 :00 the [facility] and 2 tablets in the evening. Do all this for 180 days. foLIC acid 2022- No [id number] 1mg Take 1 Univers 1 mg tablet 01-27 tablet by it y of 00:00: 04:59 mouth in [place] 00 :00 [facility] for 180 days. levETIRAcet 2022- No [id number] 1500mg Take 2 Univers am 750 mg 01-27 tablets by ity of tablet 00:00: 04:59 mouth in [place] 00 :00 [facility] and 2 tablets in the evening. Do all this for 180 days. foLIC acid 2022- No [id number] 1mg Take 1 Univers 1 mg tablet 01-27 tablet by it y of 00:00: 04:59 mouth in [place] 00 :00 [facility] for 180 days. levETIRAcet 2022- No [id number] 1500mg Take 2 Univers am 750 mg 01-27 tablets by ity of tablet 00:00: 04:59 mouth in [place] 00 :00 [facility] and 2 tablets in the evening. Do all this for 180 days. foLIC acid 2022- No [id number] 1mg Take 1 Univers 1 mg tablet 01-27 tablet by it y of 00:00: 04:59 mouth in [place] 00 :00 [facility] for 180 days. levETIRAcet 2022- No [id number] 1500mg Take 2 Univers am 750 mg 01-27 tablets by ity of tablet 00:00: 04:59 mouth in [place] 00 :00 [facility] and 2 tablets in the evening. Do all this for 180 days. foLIC acid 2022- No [id number] 1mg Take 1 Univers 1 mg tablet 01-27 tablet by it y of 00:00: 04:59 mouth in [place] 00 :00 [facility] for 180 days. levETIRAcet 2021-2022- No [id number] 1500mg Take 2 Univers am 750 mg 01-27- tablets by ity of tablet 00:00: 04:59 mouth in [place] 00 :00 the [facility] morning Branch and 2 tablets in the evening. Do all this for 180 days. foLIC acid 2022- No [id number] 1mg Take 1 Univers 1 mg tablet 01-27 tablet by it y of 00:00: 04:59 mouth in [place] 00 :00 the [facility] for 180 days. levETIRAcet 2022- No [id number] 1500mg Take 2 Univers am 750 mg 01-27 tablets by ity of tablet 00:00: 04:59 mouth in [place] 00 :00 the [facility] morning Branch and 2 tablets in the evening. Do all this for 180 days. foLIC acid 2022- No [id number] 1mg Take 1 Univers 1 mg tablet 01-27 tablet by it y of 00:00: 04:59 mouth in [place] 00 :00 the [facility] for 180 days. levETIRAcet 2021- No [id number] 1500mg Take 2 Univers am 750 mg 01-27 12-15 tablets by ity of tablet 00:00: 00:00 mouth in [place] 00 :00 the [facility] and 2 tablets in the evening. Do all this for 180 days. foLIC acid 2021- No [id number] 1mg Take 1 Univers 1 mg tablet 01-2715 tablet by it y of 00:00: 00:00 mouth in [place] 00 :00 the [facility] for 180 days. levETIRAcet 2021- No 750mg Take 750 Univers am (KEPPRA) 8-19 08-19 mg by ity of 750 mg 15:54: 00:00 mouth in [place] tablet 35 :00 the [facility] and 750 mg in the evening. levETIRAcet 2021-0 Yes [id number] 1000mg Take 1 Univers am (KEPPRA) 8-19 tablet by ity of 1,000 mg 00:00: mouth in [place] tablet 00 the [facility] morning [place] and 1 tablet in the evening. levETIRAcet 2021-0 Yes [id number] 1000mg Take 1 Univers am (KEPPRA) 8-19 tablet by ity of 1,000 mg 00:00: mouth in [place] tablet 00 the Medical morning Branch and 1 tablet in the evening. levETIRAcet 2021-0 Yes [id number] 1000mg Take 1 Univers am (KEPPRA) - tablet by ity of 1,000 mg 00:00: mouth in [place] tablet 00 the Medical morning Branch and 1 tablet in the evening. levETIRAcet 2021-0 2021- No [id number] 1000mg Take 1 Univers am (KEPPRA) 12-24 tablet by it y of 1,000 mg 00:00: 00:00 [place] tablet 00 :00 the [facility] morning Branch and 1 tablet in the evening. levETIRAcet 2021-0 2021- No [id number] 1000mg Take 1 Univers am (KEPPRA) 12-24 tablet by it y of 1,000 mg 00:00: 00:00 [place] tablet 00 :00 the [facility] morning Branch and 1 tablet in the evening. levETIRAcet 2021-2021- No [id number] 1000mg Take 1 Univers am (KEPPRA) 12-24 tablet by it y of 1,000 mg 00:00: 00:00 [place] tablet 00 :00 the [facility] morning Branch and 1 tablet in the evening. SERTraline 2021-0 Yes [id number] 25mg Take 1 U nivers 25 mg 8-01 tablet by ity of tablet 00:00: mouth in [place] 00 the Medical morning. Branch SERTraline 2021-0 Yes [id number] 25mg Take 1 U nivers 25 mg 8-01 tablet by ity of tablet 00:00: mouth in [place] 00 the Medical morning. Branch SERTraline 2021-0 Yes [id number] 25mg Take 1 U nivers 25 mg 8-01 tablet by ity of tablet 00:00: mouth in [place] 00 the Medical morning. Branch SERTraline 2021-0 Yes [id number] 25mg Take 1 U nivers 25 mg 8-01 tablet by ity of tablet 00:00: mouth in [place] 00 the Medical morning. Branch SERTraline 2021-0 Yes [id number] 25mg Take 1 U nivers 25 mg 8-01 tablet by ity of tablet 00:00: mouth in [place] 00 the Medical morning. Branch SERTraline 2021-0 Yes [id number] 25mg Take 1 U nivers 25 mg 8-01 tablet by ity of tablet 00:00: mouth in [place] 00 the Medical morning. Branch SERTraline 2021-0 Yes [id number] 25mg Take 1 U nivers 25 mg 8-01 tablet by ity of tablet 00:00: mouth in [place] 00 the Medical morning. Branch SERTraline 2021-0 Yes [id number] 25mg Take 1 U nivers 25 mg 8-01 tablet by ity of tablet 00:00: mouth in [place] 00 the Medical morning. Branch SERTraline 2021-0 Yes [id number] 25mg Take 1 U nivers 25 mg 8-01 tablet by ity of tablet 00:00: mouth in [place] 00 the Medical morning. Branch SERTraline 2021-0 Yes [id number] 25mg Take 1 U nivers 25 mg 8-01 tablet by ity of tablet 00:00: mouth in [place] 00 the Medical morning. Branch SERTraline 2021-0 Yes [id number] 25mg Take 1 U nivers 25 mg 8-01 tablet by ity of tablet 00:00: mouth in [place] 00 the Medical morning. Branch SERTraline 2021-0 Yes [id number] 25mg Take 1 U nivers 25 mg 8-01 tablet by ity of tablet 00:00: mouth in [place] 00 the Medical morning. Branch SERTraline 2021-0 2021- No [id number] 25mg Take 1 Univers 25 mg 8-01 10-05 tablet by ity of tablet 00:00: 00:00 mouth in [place] 00 :00 the Medical morning. Branch SERTraline 2021-0 2021- No [id number] 25mg Take 1 Univers 25 mg 8-01 10-05 tablet by ity of tablet 00:00: 00:00 mouth in [place] 00 :00 the Medical morning. Branch ondansetron 2020-0 Yes [id number] 4mg Take 1 Univers (ZOFRAN 6-23 tablet by ity of ODT) 4 mg 00:00: mouth [place] disintegrat 00 every 8 Medic al ing tablet (eight) Branch hours as needed for Nausea and Vomiting (N/V). ondansetron 2020-0 Yes [id number] 4mg Take 1 Univers (ZOFRAN 6-23 tablet by ity of ODT) 4 mg 00:00: mouth [place] disintegrat 00 every 8 Medic al ing tablet (eight) Branch hours as needed for Nausea and Vomiting (N/V). ondansetron 2021-0 Yes [id number] 4mg Take 1 Univers (ZOFRAN 6-23 tablet by ity of ODT) 4 mg 00:00: mouth [place] disintegrat 00 every 8 Medic al ing tablet (eight) Branch hours as needed for Nausea and Vomiting (N/V). ondansetron 2021-0 Yes [id number] 4mg Take 1 Univers (ZOFRAN 6-23 tablet by ity of ODT) 4 mg 00:00: mouth [place] disintegrat 00 every 8 Medic al ing tablet (eight) Branch hours as needed for Nausea and Vomiting (N/V). ondansetron 2021-0 Yes [id number] 4mg Take 1 Univers (ZOFRAN 6-23 tablet by ity of ODT) 4 mg 00:00: mouth [place] disintegrat 00 every 8 Medic al ing tablet (eight) Branch hours as needed for Nausea and Vomiting (N/V). ondansetron 2021-0 Yes [id number] 4mg Take 1 Univers (ZOFRAN 6-23 tablet by ity of ODT) 4 mg 00:00: mouth [place] disintegrat 00 every 8 Medic al ing tablet (eight) Branch hours as needed for Nausea and Vomiting (N/V). ondansetron 2021-0 Yes [id number] 4mg Take 1 Univers (ZOFRAN 6-23 tablet by ity of ODT) 4 mg 00:00: mouth [place] disintegrat 00 every 8 Medic al ing tablet (eight) Branch hours as needed for Nausea and Vomiting (N/V). ondansetron 2021-0 Yes [id number] 4mg Take 1 Univers (ZOFRAN 6-23 tablet by ity of ODT) 4 mg 00:00: mouth [place] disintegrat 00 every 8 Medic al ing tablet (eight) Branch hours as needed for Nausea and Vomiting (N/V). ondansetron 2021-0 Yes [id number] 4mg Take 1 Univers (ZOFRAN 6-23 tablet by ity of ODT) 4 mg 00:00: mouth [place] disintegrat 00 every 8 Medic al ing tablet (eight) Branch hours as needed for Nausea and Vomiting (N/V). ondansetron 2021-0 Yes [id number] 4mg Take 1 Univers (ZOFRAN 6-23 tablet by ity of ODT) 4 mg 00:00: mouth [place] disintegrat 00 every 8 Medic al ing tablet (eight) Branch hours as needed for Nausea and Vomiting (N/V). ondansetron 2020-0 Yes [id number] 4mg Take 1 Univers (ZOFRAN 6-23 tablet by ity of ODT) 4 mg 00:00: mouth [place] disintegrat 00 every 8 Medic al ing tablet (eight) Branch hours as needed for Nausea and Vomiting (N/V). ondansetron 2020-0 Yes [id number] 4mg Take 1 Univers (ZOFRAN 6-23 tablet by ity of ODT) 4 mg 00:00: mouth [place] disintegrat 00 every 8 Medic al ing tablet (eight) Branch hours as needed for Nausea and Vomiting (N/V). ondansetron 2020-0 Yes [id number] 4mg Take 1 Univers (ZOFRAN 6-23 tablet by ity of ODT) 4 mg 00:00: mouth [place] disintegrat 00 every 8 Medic al ing tablet (eight) Branch hours as needed for Nausea and Vomiting (N/V). ondansetron 2020-0 Yes [id number] 4mg Take 1 Univers (ZOFRAN 6-23 tablet by ity of ODT) 4 mg 00:00: mouth [place] disintegrat 00 every 8 Medic al ing tablet (eight) Branch hours as needed for Nausea and Vomiting (N/V). ondansetron 2020-0 Yes [id number] 4mg Take 1 Univers (ZOFRAN 6-23 tablet by ity of ODT) 4 mg 00:00: mouth [place] disintegrat 00 every 8 Medic al ing tablet (eight) Branch hours as needed for Nausea and Vomiting (N/V). ondansetron 2020-0 Yes [id number] 4mg Take 1 Univers (ZOFRAN 6-23 tablet by ity of ODT) 4 mg 00:00: mouth [place] disintegrat 00 every 8 Medic al ing tablet (eight) Branch hours as needed for Nausea and Vomiting (N/V). ondansetron 2020-0 Yes [id number] 4mg Take 1 Univers (ZOFRAN 6-23 tablet by ity of ODT) 4 mg 00:00: mouth [place] disintegrat 00 every 8 Medic al ing tablet (eight) Branch hours as needed for Nausea and Vomiting (N/V). ondansetron 2021-0 Yes [id number] 4mg Take 1 Univers (ZOFRAN 6-23 tablet by ity of ODT) 4 mg 00:00: mouth [place] disintegrat 00 every 8 Medic al ing tablet (eight) Branch hours as needed for Nausea and Vomiting (N/V). ondansetron 2021-0 Yes [id number] 4mg Take 1 Univers (ZOFRAN 6-23 tablet by ity of ODT) 4 mg 00:00: mouth [place] disintegrat 00 every 8 Medic al ing tablet (eight) Branch hours as needed for Nausea and Vomiting (N/V). ondansetron 2021-0 Yes [id number] 4mg Take 1 Univers (ZOFRAN 6-23 tablet by ity of ODT) 4 mg 00:00: mouth [place] disintegrat 00 every 8 Medic al ing tablet (eight) Branch hours as needed for Nausea and Vomiting (N/V). ondansetron 1-0 Yes [id number] 4mg Take 1 Univers (ZOFRAN 6-23 tablet by ity of ODT) 4 mg 00:00: mouth [place] disintegrat 00 every 8 Medic al ing tablet (eight) Branch hours as needed for Nausea and Vomiting (N/V). ondansetron 1-0 Yes [id number] 4mg Take 1 Univers (ZOFRAN 6-23 tablet by ity of ODT) 4 mg 00:00: mouth [place] disintegrat 00 every 8 Medic al ing tablet (eight) Branch hours as needed for Nausea and Vomiting (N/V). ondansetron 2021-0 Yes [id number] 4mg Take 1 Univers (ZOFRAN 6-23 tablet by ity of ODT) 4 mg 00:00: mouth [place] disintegrat 00 every 8 Medic al ing tablet (eight) Branch hours as needed for Nausea and Vomiting (N/V). ondansetron 2021-0 Yes [id number] 4mg Take 1 Univers (ZOFRAN 6-23 tablet by ity of ODT) 4 mg 00:00: mouth [place] disintegrat 00 every 8 Medic al ing tablet (eight) Branch hours as needed for Nausea and Vomiting (N/V). ondansetron 2021-0 Yes [id number] 4mg Take 1 Univers (ZOFRAN 6-23 tablet by ity of ODT) 4 mg 00:00: mouth [place] disintegrat 00 every 8 Medic al ing tablet (eight) Branch hours as needed for Nausea and Vomiting (N/V). ondansetron 2021-0 Yes [id number] 4mg Take 1 Univers (ZOFRAN 6-23 tablet by ity of ODT) 4 mg 00:00: mouth [place] disintegrat 00 every 8 Medic al ing tablet (eight) Branch hours as needed for Nausea and Vomiting (N/V). ondansetron 202-0 Yes [id number] 4mg Take 1 Univers (ZOFRAN 6-23 tablet by ity of ODT) 4 mg 00:00: mouth [place] disintegrat 00 every 8 Medic al ing tablet (eight) Branch hours as needed for Nausea and Vomiting (N/V). ondansetron 2020-0 Yes [id number] 4mg Take 1 Univers (ZOFRAN 6-23 tablet by ity of ODT) 4 mg 00:00: mouth [place] disintegrat 00 every 8 Medic al ing tablet (eight) Branch hours as needed for Nausea and Vomiting (N/V). ondansetron 2020-0 Yes [id number] 4mg Take 1 Univers (ZOFRAN 6-23 tablet by ity of ODT) 4 mg 00:00: mouth [place] disintegrat 00 every 8 Medic al ing tablet (eight) Branch hours as needed for Nausea and Vomiting (N/V). ondansetron 2020-0 Yes [id number] 4mg Take 1 Univers (ZOFRAN 6-23 tablet by ity of ODT) 4 mg 00:00: mouth [place] disintegrat 00 every 8 Medic al ing tablet (eight) Branch hours as needed for Nausea and Vomiting (N/V). ondansetron 2021-0 Yes [id number] 4mg Take 1 Univers (ZOFRAN 6-23 tablet by ity of ODT) 4 mg 00:00: mouth [place] disintegrat 00 every 8 Medic al ing tablet (eight) Branch hours as needed for Nausea and Vomiting (N/V). ondansetron 1-0 Yes [id number] 4mg Take 1 Univers (ZOFRAN 6-23 tablet by ity of ODT) 4 mg 00:00: mouth [place] disintegrat 00 every 8 Medic al ing tablet (eight) Branch hours as needed for Nausea and Vomiting (N/V). ondansetron 2020-0 Yes [id number] 4mg Take 1 Univers (ZOFRAN 6-23 tablet by ity of ODT) 4 mg 00:00: mouth [place] disintegrat 00 every 8 Medic al ing tablet (eight) Branch hours as needed for Nausea and Vomiting (N/V). ondansetron 0 2022- No [id number] 4mg Take 1 Univers (ZOFRAN 6-23 12-15 tablet by ity of ODT) 4 mg 00:00: 00:00 mouth [place] disintegrat 00 :00 every 8 Medic al ing tablet (eight) Branch hours as needed for Nausea and Vomiting (N/V). acetaminoph 2020-0 Yes [id number] 650mg Take 2 Univers en 325 mg 6-20 tablets by ity of tablet 00:00: mouth [place] 00 every 6 Medical (six) Branch hours as needed for Pain (scale 1-3) or Temp > 38.5 C. acetaminoph 2020-0 Yes [id number] 650mg Take 2 Univers en 325 mg 6-20 tablets by ity of tablet 00:00: mouth [place] 00 every 6 Medical (six) Branch hours as needed for Pain (scale 1-3) or Temp > 38.5 C. acetaminoph 2020-0 Yes [id number] 650mg Take 2 Univers en 325 mg 6-20 tablets by ity of tablet 00:00: mouth [place] 00 every 6 Medical (six) Branch hours as needed for Pain (scale 1-3) or Temp > 38.5 C. acetaminoph 2020-0 Yes [id number] 650mg Take 2 Univers en 325 mg 6-20 tablets by ity of tablet 00:00: mouth [place] 00 every 6 [facility] ([facility] Branch hours as needed for Pain (scale 1-3) or Temp > 38.5 C. acetaminoph 202-0 Yes [id number] 650mg Take 2 [facility] 325 mg 6-20 tablets by [facility] of tablet 00:00: mouth [place] 00 every 6 [facility] (six) Branch hours as needed for Pain (scale 1-3) or Temp > 38.5 C. acetaminoph 2020-0 Yes [id number] 650mg Take 2 [facility] 325 mg 6-20 tablets by ity of tablet 00:00: mouth [place] 00 every 6 [facility] (six) [facility] hours as needed for Pain (scale 1-3) or Temp > 38.5 C. acetaminoph 2021-0 Yes [id number] 650mg Take 2 [facility] 325 mg 6-20 tablets by ity of tablet 00:00: mouth [place] 00 every 6 [facility] (six) Branch hours as needed for Pain (scale 1-3) or Temp > 38.5 C. acetaminoph 2021-0 Yes [id number] 650mg Take 2 [facility] 325 mg 6-20 tablets by ity of tablet 00:00: mouth [place] 00 every 6 [facility] (six) [facility] hours as needed for Pain (scale 1-3) or Temp > 38.5 C. acetaminoph 2021-0 Yes [id number] 650mg Take 2 [facility] 325 mg 6-20 tablets by ity of tablet 00:00: mouth [place] 00 every 6 [facility] (six) [facility] hours as needed for Pain (scale 1-3) or Temp > 38.5 C. acetaminoph 2021-0 Yes [id number] 650mg Take 2 [facility] 325 mg 6-20 tablets by ity of tablet 00:00: mouth [place] 00 every 6 [facility] (six) [facility] hours as needed for Pain (scale 1-3) or Temp > 38.5 C. acetaminoph 2021-0 Yes [id number] 650mg Take 2 [facility] 325 mg 6-20 tablets by ity of tablet 00:00: mouth [place] 00 every 6 [facility] (six) [facility] hours as needed for Pain (scale 1-3) or Temp > 38.5 C. acetaminoph 2021-0 Yes [id number] 650mg Take 2 [facility] 325 mg 6-20 tablets by ity of tablet 00:00: mouth [place] 00 every 6 [facility] (six) [facility] hours as needed for Pain (scale 1-3) or Temp > 38.5 C. acetaminoph 2021-0 Yes [id number] 650mg Take 2 [facility] 325 mg 6-20 tablets by ity of tablet 00:00: mouth [place] 00 every 6 [facility] (six) [facility] hours as needed for Pain (scale 1-3) or Temp > 38.5 C. acetaminoph 2021-0 Yes [id number] 650mg Take 2 [facility] 325 mg 6-20 tablets by ity of tablet 00:00: mouth [place] 00 every 6 [facility] (six) [facility] hours as needed for Pain (scale 1-3) or Temp > 38.5 C. acetaminoph 2021-0 Yes [id number] 650mg Take 2 [facility] 325 mg 6-20 tablets by ity of tablet 00:00: mouth [place] 00 every 6 [facility] (six) [facility] hours as needed for Pain (scale 1-3) or Temp > 38.5 C. acetaminoph 2021-0 Yes [id number] 650mg Take 2 [facility] 325 mg 6-20 tablets by [facility]y of tablet 00:00: mouth [place] 00 every 6 [facility] (six) [facility] hours as needed for Pain (scale 1-3) or Temp > 38.5 C. acetaminoph 2021-0 Yes [id number] 650mg Take 2 [facility] 325 mg 6-20 tablets by ity of tablet 00:00: mouth [place] 00 every 6 [facility] (six) [facility] hours as needed for Pain (scale 1-3) or Temp > 38.5 C. acetaminoph 2021-0 Yes [id number] 650mg Take 2 [facility] 325 mg 6-20 tablets by ity of tablet 00:00: mouth [place] 00 every 6 [facility] (six) [facility] hours as needed for Pain (scale 1-3) or Temp > 38.5 C. acetaminoph 2021-0 Yes [id number] 650mg Take 2 [facility] 325 mg 6-20 tablets by ity of tablet 00:00: mouth [place] 00 every 6 [facility] (six) [facility] hours as needed for Pain (scale 1-3) or Temp > 38.5 C. acetaminoph 2021-0 Yes [id number] 650mg Take 2 [facility] 325 mg 6-20 tablets by ity of tablet 00:00: mouth [place] 00 every 6 [facility] (six) [facility] hours as needed for Pain (scale 1-3) or Temp > 38.5 C. acetaminoph 2021-0 Yes [id number] 650mg Take 2 [facility] 325 mg 6-20 tablets by ity of tablet 00:00: mouth [place] 00 every 6 [facility] (six) [facility] hours as needed for Pain (scale 1-3) or Temp > 38.5 C. acetaminoph 2021-0 Yes [id number] 650mg Take 2 [facility] 325 mg 6-20 tablets by ity of tablet 00:00: mouth [place] 00 every 6 [facility] (six) Branch hours as needed for Pain (scale 1-3) or Temp > 38.5 C. acetaminoph 2021-0 Yes [id number] 650mg Take 2 [facility] 325 mg 6-20 tablets by ity of tablet 00:00: mouth [place] 00 every 6 [facility] (six) [facility] hours as needed for Pain (scale 1-3) or Temp > 38.5 C. acetaminoph 2021-0 Yes [id number] 650mg Take 2 [facility] 325 mg 6-20 tablets by ity of tablet 00:00: mouth [place] 00 every 6 [facility] (six) [facility] hours as needed for Pain (scale 1-3) or Temp > 38.5 C. acetaminoph 2021-0 Yes [id number] 650mg Take 2 [facility] 325 mg 6-20 tablets by ity of tablet 00:00: mouth [place] 00 every 6 [facility] (six) [facility] hours as needed for Pain (scale 1-3) or Temp > 38.5 C. acetaminoph 2021-0 Yes [id number] 650mg Take 2 [facility] 325 mg 6-20 tablets by ity of tablet 00:00: mouth [place] 00 every 6 [facility] (six) Branch hours as needed for Pain (scale 1-3) or Temp > 38.5 C. acetaminoph 2021-0 Yes [id number] 650mg Take 2 [facility] 325 mg 6-20 tablets by ity of tablet 00:00: mouth [place] 00 every 6 [facility] (six) Branch hours as needed for Pain (scale 1-3) or Temp > 38.5 C. acetaminoph 2021-0 Yes [id number] 650mg Take 2 [facility] 325 mg 6-20 tablets by ity of tablet 00:00: mouth [place] 00 every 6 [facility] (six) Branch hours as needed for Pain (scale 1-3) or Temp > 38.5 C. acetaminoph 2021-0 Yes [id number] 650mg Take 2 [facility] 325 mg 6-20 tablets by ity of tablet 00:00: mouth [place] 00 every 6 [facility] (six) [facility] hours as needed for Pain (scale 1-3) or Temp > 38.5 C. acetaminoph 2021-0 Yes [id number] 650mg Take 2 [facility] 325 mg 6-20 tablets by ity of tablet 00:00: mouth [place] 00 every 6 [facility] (six) Branch hours as needed for Pain (scale 1-3) or Temp > 38.5 C. acetaminoph 2020-0 Yes [id number] 650mg Take 2 [facility] 325 mg 6-20 tablets by ity of tablet 00:00: mouth [place] 00 every 6 Medical (six) Branch hours as needed for Pain (scale 1-3) or Temp > 38.5 C. acetaminoph 2020-0 Yes [id number] 650mg Take 2 [facility] 325 mg 6-20 tablets by ity of tablet 00:00: mouth [place] 00 every 6 Medical (six) Branch hours as needed for Pain (scale 1-3) or Temp > 38.5 C. acetaminoph 2020-0 Yes [id number] 650mg Take 2 [facility] 325 mg 6-20 tablets by ity of tablet 00:00: mouth [place] 00 every 6 Medical (six) Branch hours as needed for Pain (scale 1-3) or Temp > 38.5 C. acetaminoph 0 2021- No [id number] 650mg Take 2 [facility] 325 mg [...] [facility], 00:00:00 [place] [facility] Preserv and ABX Free Bran [...] Unive rsity of VACCINE - (MODERNA) 00:00:00 [facility] SARS-COV-2 COVID-19 2020-06-05 Completed Unive rsity of VACCINE - (MODERNA) 00:00:00 [facility] SARS-COV-2 COVID-19 2020-06-05 Completed [facility] of VACCINE - (MODERNA) 00:00:00 [facility] SARS-COV-2 COVID-19 2020-06-05 Completed [facility] of VACCINE - (MODERNA) 00:00:00 [facility] SARS-COV-2 COVID-19 2020-06-05 Completed [facility] of VACCINE - (MODERNA) 00:00:00 [facility] SARS-COV-2 COVID-19 2020-06-05 Completed [facility] of VACCINE - (MODERNA) 00:00:00 [facility] SARS-COV-2 COVID-19 2020-06-05 Completed Unive [facility] of VACCINE - (MODERNA) 00:00:00 [facility] SARS-COV-2 COVID-19 2020-06-05 Completed [facility] of VACCINE - (MODERNA) 00:00:00 [facility] SARS-COV-2 COVID-19 2020-06-05 Completed [facility] of VACCINE - (MODERNA) 00:00:00 [facility] SARS-COV-2 COVID-19 2020-06-05 Completed [facility] of VACCINE - (MODERNA) 00:00:00 [facility] SARS-COV-2 COVID-19 2020-06-05 Completed [facility] of VACCINE - (MODERNA) 00:00:00 [facility] SARS-COV-2 COVID-19 2020-06-05 Completed [facility] of VACCINE - (MODERNA) 00:00:00 [facility] SARS-COV-2 COVID-19 2020-06-05 Completed [facility] of VACCINE - (MODERNA) 00:00:00 [facility] SARS-COV-2 COVID-19 2020-06-05 Completed [facility] of VACCINE - (MODERNA) 00:00:00 [facility] SARS-COV-2 COVID-19 2020-06-05 Completed [facility] of VACCINE - (MODERNA) 00:00:00 [facility] SARS-COV-2 COVID-19 2020-06-05 Completed Unive [facility] of VACCINE - (MODERNA) 00:00:00 [facility] SARS-COV-2 COVID-19 2020-06-05 Completed [facility] of VACCINE - (MODERNA) 00:00:00 [facility] SARS-COV-2 COVID-19 2020-06-05 Completed [facility] of VACCINE - (MODERNA) 00:00:00 [facility] SARS-COV-2 COVID-19 2020-06-05 Completed [facility] of VACCINE - (MODERNA) 00:00:00 [facility] SARS-COV-2 COVID-19 2020-06-05 Completed [facility] of VACCINE - (MODERNA) 00:00:00 [facility] SARS-COV-2 COVID-19 2020-06-05 Completed [facility] of VACCINE - (MODERNA) 00:00:00 [facility] SARS-COV-2 COVID-19 2020-06-05 Completed Un[facility] of VACCINE - (MODERNA) 00:00:00 [facility] SARS-COV-2 COVID-19 2020-06-05 Completed Un[facility] of VACCINE - (MODERNA) 00:00:00 [facility] SARS-COV-2 COVID-19 2020-06-05 Completed [facility] of VACCINE - (MODERNA) 00:00:00 [facility] SARS-COV-2 COVID-19 2020-06-05 Completed [facility] of VACCINE - (MODERNA) 00:00:00 [facility] SARS-COV-2 COVID-19 2020-06-05 Completed [facility] of VACCINE - (MODERNA) 00:00:00 [facility] SARS-COV-2 COVID-19 2020-06-05 Completed [facility] of VACCINE - (MODERNA) 00:00:00 [facility] SARS-COV-2 COVID-19 2020-06-05 Completed [facility] of VACCINE - (MODERNA) 00:00:00 [facility] SARS-COV-2 COVID-19 2020-06-05 Completed [facility] of VACCINE - (MODERNA) 00:00:00 [facility] SARS-COV-2 COVID-19 2020-06-05 Completed [facility] of VACCINE - (MODERNA) 00:00:00 [facility] SARS-COV-2 COVID-19 2020-06-05 Completed [facility] of VACCINE - (MODERNA) 00:00:00 [facility] SARS-COV-2 COVID-19 2020-06-05 Completed [facility] of VACCINE - (MODERNA) 00:00:00 [facility] SARS-COV-2 COVID-19 2020-06-05 Completed [facility] of VACCINE - (MODERNA) 00:00:00 [facility] SARS-COV-2 COVID-19 2020-06-05 Completed [facility] of VACCINE - (MODERNA) 00:00:00 [facility] SARS-COV-2 COVID-19 2020-06-05 Completed [facility]ive [facility] of VACCINE - (MODERNA) 00:00:00 [facility] SARS-COV-2 COVID-19 2020-06-05 Completed [facility] of VACCINE - (MODERNA) 00:00:00 [facility] SARS-COV-2 COVID-19 2020-06-05 Completed [facility] of VACCINE - (MODERNA) 00:00:00 [facility] SARS-COV-2 COVID-19 2020-06-05 Completed [facility] of VACCINE - (MODERNA) 00:00:00 [facility] SARS-COV-2 COVID-19 2020-06-05 Completed [facility] of VACCINE - (MODERNA) 00:00:00 [facility] SARS-COV-2 COVID-19 2020-06-05 Completed [facility] of VACCINE - (MODERNA) 00:00:00 [facility] SARS-COV-2 COVID-19 2020-06-05 Completed [facility] of VACCINE - (MODERNA) 00:00:00 [facility] SARS-COV-2 COVID-19 2020-06-05 Completed [facility] of VACCINE - (MODERNA) 00:00:00 [facility] SARS-COV-2 COVID-19 2020-06-05 Completed [facility] of VACCINE - (MODERNA) 00:00:00 [facility] SARS-COV-2 COVID-19 2020-06-05 Completed Un[facility] of VACCINE - (MODERNA) 00:00:00 [facility] SARS-COV-2 COVID-19 2020-06-05 Completed [facility] of VACCINE - (MODERNA) 00:00:00 [facility] SARS-COV-2 COVID-19 2020-06-05 Completed [facility] of VACCINE - (MODERNA) 00:00:00 [facility] SARS-COV-2 COVID-19 2020-06-05 Completed [facility] of VACCINE - (MODERNA) 00:00:00 [facility] SARS-COV-2 COVID-19 2020-06-05 Completed [facility] of VACCINE - (MODERNA) 00:00:00 [facility] SARS-COV-2 COVID-19 2020-06-05 Completed Un[facility] of VACCINE - (MODERNA) 00:00:00 [facility] SARS-COV-2 COVID-19 2020-06-05 Completed Unive rsity of VACCINE - (MODERNA) 00:00:00 [facility] SARS-COV-2 COVID-19 2020-06-05 Completed Unive rsity of VACCINE - (MODERNA) 00:00:00 [facility] SARS-COV-2 COVID-19 2020-06-05 Completed [facility] of VACCINE - (MODERNA) 00:00:00 [facility] SARS-COV-2 COVID-19 2020-06-05 Completed [facility] of VACCINE - (MODERNA) 00:00:00 [facility] SARS-COV-2 COVID-19 2020-06-05 Completed [facility] of VACCINE - (MODERNA) 00:00:00 [facility] SARS-COV-2 COVID-19 2020-06-05 Completed [facility] of VACCINE - (MODERNA) 00:00:00 [facility] SARS-COV-2 COVID-19 2020-06-05 Completed [facility] of VACCINE - (MODERNA) 00:00:00 [facility] SARS-COV-2 COVID-19 2020-06-05 Completed [facility] of VACCINE - (MODERNA) 00:00:00 [facility] SARS-COV-2 COVID-19 2020-06-05 Completed [facility] of VACCINE - (MODERNA) 00:00:00 [facility] SARS-COV-2 COVID-19 2020-06-05 Completed [facility] of VACCINE - (MODERNA) 00:00:00 [facility] SARS-COV-2 COVID-19 2020-06-05 Completed [facility] of VACCINE - (MODERNA) 00:00:00 [facility] SARS-COV-2 COVID-19 2020-06-05 Completed [facility] of VACCINE - (MODERNA) 00:00:00 [facility] SARS-COV-2 COVID-19 2020-06-05 Completed [facility] of VACCINE - (MODERNA) 00:00:00 [facility] SARS-COV-2 COVID-19 2020-06-05 Completed [facility] of VACCINE - (MODERNA) 00:00:00 [facility] SARS-COV-2 COVID-19 2020-06-05 Completed [facility] of VACCINE - (MODERNA) 00:00:00 [facility] SARS-COV-2 COVID-19 2020-06-05 Completed [facility] of VACCINE - (MODERNA) 00:00:00 [facility] SARS-COV-2 COVID-19 2020-06-05 Completed [facility] of VACCINE - (MODERNA) 00:00:00 [facility] SARS-COV-2 COVID-19 2020-06-05 Completed [facility] of VACCINE - (MODERNA) 00:00:00 [facility] SARS-COV-2 COVID-19 2020-06-05 Completed [facility] of VACCINE - (MODERNA) 00:00:00 [facility] SARS-COV-2 COVID-19 2020-06-05 Completed [facility] of VACCINE - (MODERNA) 00:00:00 [facility] SARS-COV-2 COVID-19 2020-06-05 Completed Un[facility] of VACCINE - (MODERNA) 00:00:00 [facility] SARS-COV-2 COVID-19 2020-05-06 Completed [facility] of VACCINE - (MODERNA) 00:00:00 [facility] SARS-COV-2 COVID-19 2020-05-06 Completed [facility] of VACCINE - (MODERNA) 00:00:00 [facility] SARS-COV-2 COVID-19 2020-05-06 Completed [facility] of VACCINE - (MODERNA) 00:00:00 [facility] SARS-COV-2 COVID-19 2020-05-06 Completed [facility] of VACCINE - (MODERNA) 00:00:00 [facility] SARS-COV-2 COVID-19 2020-05-06 Completed [facility] of VACCINE - (MODERNA) 00:00:00 [facility] SARS-COV-2 COVID-19 2020-05-06 Completed Unive rsity of VACCINE - (MODERNA) 00:00:00 [facility] SARS-COV-2 COVID-19 2020-05-06 Completed [facility] of VACCINE - (MODERNA) 00:00:00 [facility] SARS-COV-2 COVID-19 2020-05-06 Completed [facility] of VACCINE - (MODERNA) 00:00:00 [facility] SARS-COV-2 COVID-19 2020-05-06 Completed [facility] of VACCINE - (MODERNA) 00:00:00 [facility] SARS-COV-2 COVID-19 2020-05-06 Completed [facility] of VACCINE - (MODERNA) 00:00:00 [facility] SARS-COV-2 COVID-19 2020-05-06 Completed Unive [facility] of VACCINE - (MODERNA) 00:00:00 [facility] SARS-COV-2 COVID-19 2020-05-06 Completed [facility] of VACCINE - (MODERNA) 00:00:00 [facility] SARS-COV-2 COVID-19 2020-05-06 Completed [facility] of VACCINE - (MODERNA) 00:00:00 [facility] SARS-COV-2 COVID-19 2020-05-06 Completed [facility] of VACCINE - (MODERNA) 00:00:00 [facility] SARS-COV-2 COVID-19 2020-05-06 Completed [facility] of VACCINE - (MODERNA) 00:00:00 [facility] SARS-COV-2 COVID-19 2020-05-06 Completed [facility] of VACCINE - (MODERNA) 00:00:00 [facility] SARS-COV-2 COVID-19 2020-05-06 Completed [facility] of VACCINE - (MODERNA) 00:00:00 [facility] SARS-COV-2 COVID-19 2020-05-06 Completed [facility] of VACCINE - (MODERNA) 00:00:00 [facility] SARS-COV-2 COVID-19 2020-05-06 Completed Unive [facility]ity of VACCINE - (MODERNA) 00:00:00 [facility] SARS-COV-2 COVID-19 2020-05-06 Completed [facility] of VACCINE - (MODERNA) 00:00:00 [facility] SARS-COV-2 COVID-19 2020-05-06 Completed [facility] of VACCINE - (MODERNA) 00:00:00 [facility] SARS-COV-2 COVID-19 2020-05-06 Completed Unive [facility] of VACCINE - (MODERNA) 00:00:00 [facility] SARS-COV-2 COVID-19 2020-05-06 Completed [facility] of VACCINE - (MODERNA) 00:00:00 [facility] SARS-COV-2 COVID-19 2020-05-06 Completed [facility] of VACCINE - (MODERNA) 00:00:00 [facility] SARS-COV-2 COVID-19 2020-05-06 Completed Unive [facility]ity of VACCINE - (MODERNA) 00:00:00 [facility] SARS-COV-2 COVID-19 2020-05-06 Completed Unive [facility]ity of VACCINE - (MODERNA) 00:00:00 [facility] SARS-COV-2 COVID-19 2020-05-06 Completed Unive rsity of VACCINE - (MODERNA) 00:00:00 [facility] SARS-COV-2 COVID-19 2020-05-06 Completed Unive [facility] of VACCINE - (MODERNA) 00:00:00 [facility] SARS-COV-2 COVID-19 2020-05-06 Completed Unive [facility] of VACCINE - (MODERNA) 00:00:00 [facility] SARS-COV-2 COVID-19 2020-05-06 Completed Unive [facility]ity of VACCINE - (MODERNA) 00:00:00 [facility] SARS-COV-2 COVID-19 2020-05-06 Completed Unive [facility] of VACCINE - (MODERNA) 00:00:00 [facility] SARS-COV-2 COVID-19 2020-05-06 Completed Unive rsity of VACCINE - (MODERNA) 00:00:00 [facility] SARS-COV-2 COVID-19 2020-05-06 Completed Unive [facility] of VACCINE - (MODERNA) 00:00:00 [facility] SARS-COV-2 COVID-19 2020-05-06 Completed Unive [facility] of VACCINE - (MODERNA) 00:00:00 [facility] SARS-COV-2 COVID-19 2020-05-06 Completed Un[facility] of VACCINE - (MODERNA) 00:00:00 [facility] SARS-COV-2 COVID-19 2020-05-06 Completed [facility]ive [facility] of VACCINE - (MODERNA) 00:00:00 [facility] SARS-COV-2 COVID-19 2020-05-06 Completed Unive [facility]ity of VACCINE - (MODERNA) 00:00:00 [facility] SARS-COV-2 COVID-19 2020-05-06 Completed Unive [facility] of VACCINE - (MODERNA) 00:00:00 [facility] SARS-COV-2 COVID-19 2020-05-06 Completed Un[facility] of VACCINE - (MODERNA) 00:00:00 [facility] SARS-COV-2 COVID-19 2020-05-06 Completed [facility] of VACCINE - (MODERNA) 00:00:00 [facility] SARS-COV-2 COVID-19 2020-05-06 Completed [facility] of VACCINE - (MODERNA) 00:00:00 [facility] SARS-COV-2 COVID-19 2020-05-06 Completed [facility] of VACCINE - (MODERNA) 00:00:00 [facility] SARS-COV-2 COVID-19 2020-05-06 Completed [facility] of VACCINE - (MODERNA) 00:00:00 [facility] SARS-COV-2 COVID-19 2020-05-06 Completed [facility] of VACCINE - (MODERNA) 00:00:00 [facility] SARS-COV-2 COVID-19 2020-05-06 Completed [facility] of VACCINE - (MODERNA) 00:00:00 [facility] SARS-COV-2 COVID-19 2020-05-06 Completed [facility] of VACCINE - (MODERNA) 00:00:00 [facility] SARS-COV-2 COVID-19 2020-05-06 Completed [facility] of VACCINE - (MODERNA) 00:00:00 [facility] SARS-COV-2 COVID-19 2020-05-06 Completed [facility] of VACCINE - (MODERNA) 00:00:00 [facility] SARS-COV-2 COVID-19 2020-05-06 Completed [facility] of VACCINE - (MODERNA) 00:00:00 [facility] SARS-COV-2 COVID-19 2020-05-06 Completed [facility] of VACCINE - (MODERNA) 00:00:00 [facility] SARS-COV-2 COVID-19 2020-05-06 Completed [facility] of VACCINE - (MODERNA) 00:00:00 [facility] SARS-COV-2 COVID-19 2020-05-06 Completed [facility] of VACCINE - (MODERNA) 00:00:00 [facility] SARS-COV-2 COVID-19 2020-05-06 Completed [facility] of VACCINE - (MODERNA) 00:00:00 [facility] SARS-COV-2 COVID-19 2020-05-06 Completed [facility] of VACCINE - (MODERNA) 00:00:00 [facility] SARS-COV-2 COVID-19 2020-05-06 Completed [facility]ive [facility] of VACCINE - (MODERNA) 00:00:00 [facility] SARS-COV-2 COVID-19 2020-05-06 Completed [facility] of VACCINE - (MODERNA) 00:00:00 [facility] SARS-COV-2 COVID-19 2020-05-06 Completed [facility] of VACCINE - (MODERNA) 00:00:00 [facility] SARS-COV-2 COVID-19 2020-05-06 Completed [facility]ive [facility] of VACCINE - (MODERNA) 00:00:00 [facility] SARS-COV-2 COVID-19 2020-05-06 Completed Unive rsity of VACCINE - (MODERNA) 00:00:00 [facility] SARS-COV-2 COVID-19 2020-05-06 Completed [facility]ive [facility] of VACCINE - (MODERNA) 00:00:00 [facility] SARS-COV-2 COVID-19 2020-05-06 Completed [facility] of VACCINE - (MODERNA) 00:00:00 [facility] SARS-COV-2 COVID-19 2020-05-06 Completed [facility] of VACCINE - (MODERNA) 00:00:00 [facility] SARS-COV-2 COVID-19 2020-05-06 Completed Unive [facility] of VACCINE - (MODERNA) 00:00:00 [place] [facility] SARS-COV-2 COVID-19 2020-05-06 Completed Unive rsity of VACCINE - (MODERNA) 00:00:00 [facility] SARS-COV-2 COVID-19 2020-05-06 Completed [facility] of VACCINE - (MODERNA) 00:00:00 [facility] SARS-COV-2 COVID-19 2020-05-06 Completed [facility] of VACCINE - (MODERNA) 00:00:00 [facility] SARS-COV-2 COVID-19 2020-05-06 Completed Unive [facility] of VACCINE - (MODERNA) 00:00:00 [facility] SARS-COV-2 COVID-19 2020-05-06 Completed [facility]ive [facility] of VACCINE - (MODERNA) 00:00:00 [facility] SARS-COV-2 COVID-19 2020-05-06 Completed [facility] of VACCINE - (MODERNA) 00:00:00 [facility] SARS-COV-2 COVID-19 2020-05-06 Completed [facility] of VACCINE - (MODERNA) 00:00:00 [facility] SARS-COV-2 COVID-19 2020-03-25 Completed Unive rsity of MODERNA 0.25ML 00:00:00 [place] [facility] SARS-COV-2 COVID-19 2020-03-25 Completed Unive rsity of MODERNA 0.25ML 00:00:00 [place] [facility] SARS-COV-2 COVID-19 2020-03-25 Completed Unive [facility] of MODERNA 0.25ML 00:00:00 [place] [facility] SARS-COV-2 COVID-19 2020-03-25 Completed Unive [facility] of MODERNA 0.25ML 00:00:00 [place] [facility] SARS-COV-2 COVID-19 2020-03-25 Completed Unive [facility] of MODERNA 0.25ML 00:00:00 [place] [facility] SARS-COV-2 COVID-19 2020-03-25 Completed Unive [facility] of MODERNA 0.25ML 00:00:00 [place] [facility] SARS-COV-2 COVID-19 2020-03-25 Completed Unive [facility] of MODERNA 0.25ML 00:00:00 [place] [facility] SARS-COV-2 COVID-19 2020-03-25 Completed Unive [facility] of MODERNA 0.25ML 00:00:00 [place] [facility] SARS-COV-2 COVID-19 2020-03-25 Completed [facility] of MODERNA 0.25ML 00:00:00 [place] [facility] SARS-COV-2 COVID-19 2020-03-25 Completed [facility] of MODERNA 0.25ML 00:00:00 [place] [facility] SARS-COV-2 COVID-19 2020-03-25 Completed [facility] of MODERNA 0.25ML 00:00:00 [place] [facility] SARS-COV-2 COVID-19 2020-03-25 Completed [facility] of MODERNA 0.25ML 00:00:00 [place] [facility] VACCINE [facility] SARS-COV-2 COVID-19 2020-03-25 Completed [facility] MODERNA 0.25ML 00:00:00 [place] [facility] VACC[facility] SARS-COV-2 COVID-19 2020-03-25 Completed [facility] MODERNA 0.25ML 00:00:00 [place] [facility] VACCINE [facility] SARS-COV-2 COVID-19 2020-03-25 Completed [facility] MODERNA 0.25ML 00:00:00 [place] [facility] VACCINE [facility] SARS-COV-2 COVID-19 2020-03-25 Completed [facility] MODERNA 0.25ML 00:00:00 [place] [facility] VACCINE [facility] SARS-COV-2 COVID-19 2020-03-25 Completed [facility] MODERNA 0.25ML 00:00:00 [place] [facility]ER VACCINE [facility] SARS-COV-2 COVID-19 2020-03-25 Completed [facility] MODERNA 0.25ML 00:00:00 [place] [facility] VACCINE [facility] SARS-COV-2 COVID-19 2020-03-25 Completed [facility] MODERNA 0.25ML 00:00:00 [place] [facility] VACCINE [facility] SARS-COV-2 COVID-19 2020-03-25 Completed [facility] MODERNA 0.25ML 00:00:00 [place] [facility] VACCINE [facility] SARS-COV-2 COVID-19 2020-03-25 Completed [facility] MODERNA 0.25ML 00:00:00 [place] [facility] VACCINE [facility] SARS-COV-2 COVID-19 2020-03-25 Completed [facility] MODERNA 0.25ML 00:00:00 [place] [facility]ER VACCINE [facility] SARS-COV-2 COVID-19 2020-03-25 Completed [facility] MODERNA 0.25ML 00:00:00 [place] [facility]ER VACCINE [facility] SARS-COV-2 COVID-19 2020-03-25 Completed [facility] MODERNA 0.25ML 00:00:00 [place] [facility]ER VACCINE [facility] SARS-COV-2 COVID-19 2020-03-25 Completed [facility] MODERNA 0.25ML 00:00:00 [place] [facility] BOOSTER VACCINE [facility] SARS-COV-2 COVID-19 2020-03-25 Completed [facility] MODERNA 0.25ML 00:00:00 [place] [facility] BOOSTER VACCINE [facility] SARS-COV-2 COVID-19 2020-03-25 Completed [facility] MODERNA 0.25ML 00:00:00 [place] [facility]ER VACCINE [facility] SARS-COV-2 COVID-19 2020-03-25 Completed [facility] MODERNA 0.25ML 00:00:00 [place] [facility]ER VACCINE [facility] SARS-COV-2 COVID-19 2020-03-25 Completed [facility] MODERNA 0.25ML 00:00:00 [place] [facility]ER VACCINE [facility] SARS-COV-2 COVID-19 2020-03-25 Completed [facility] MODERNA 0.25ML 00:00:00 [place] [facility]ER VACCINE [facility] SARS-COV-2 COVID-19 2020-03-25 Completed [facility] MODERNA 0.25ML 00:00:00 [place] [facility]ER VACCINE [facility] SARS-COV-2 COVID-19 2020-03-25 Completed [facility] MODERNA 0.25ML 00:00:00 [place] [facility] BOOSTER VACCINE [facility] SARS-COV-2 COVID-19 2020-03-25 Completed [facility] MODERNA 0.25ML 00:00:00 [place] [facility]ER VACCINE [facility] SARS-COV-2 COVID-19 2020-03-25 Completed [facility] MODERNA 0.25ML 00:00:00 [place] [facility] BOOSTER VACCINE [facility] SARS-COV-2 COVID-19 2020-03-25 Completed [facility] MODERNA 0.25ML 00:00:00 [place] [facility]ER VACCINE [facility] SARS-COV-2 COVID-19 2020-03-25 Completed [facility] MODERNA 0.25ML 00:00:00 [place] [facility]ER VACCINE [facility] SARS-COV-2 COVID-19 2020-03-25 Completed [facility] MODERNA 0.25ML 00:00:00 [place] [facility] BOOSTER VACCINE [facility] SARS-COV-2 COVID-19 2020-03-25 Completed [facility] MODERNA 0.25ML 00:00:00 [place] [facility] BOOSTER VACCINE [facility] SARS-COV-2 COVID-19 2020-03-25 Completed [facility] MODERNA 0.25ML 00:00:00 [place] [facility]ER VACCINE [facility] SARS-COV-2 COVID-19 2020-03-25 Completed [facility] MODERNA 0.25ML 00:00:00 [place] [facility] BOOSTER VACCINE [facility] SARS-COV-2 COVID-19 2020-03-25 Completed [facility] MODERNA 0.25ML 00:00:00 [place] [facility] BOOSTER VACCINE [facility] SARS-COV-2 COVID-19 2020-03-25 Completed [facility] MODERNA 0.25ML 00:00:00 [place] [facility]ER VACCINE [facility] SARS-COV-2 COVID-19 2020-03-25 Completed [facility] MODERNA 0.25ML 00:00:00 [place] [facility]ER VACCINE [facility] SARS-COV-2 COVID-19 2020-03-25 Completed [facility] MODERNA 0.25ML 00:00:00 [place] [facility] BOOSTER VACCINE [facility] SARS-COV-2 COVID-19 2020-03-25 Completed [facility] MODERNA 0.25ML 00:00:00 [place] [facility]ER VACCINE [facility] SARS-COV-2 COVID-19 2020-03-25 Completed [facility] MODERNA 0.25ML 00:00:00 [place] [facility]ER VACCINE [facility] SARS-COV-2 COVID-19 2020-03-25 Completed [facility] MODERNA 0.25ML 00:00:00 [place] [facility]ER VACCINE [facility] SARS-COV-2 COVID-19 2020-03-25 Completed [facility] MODERNA 0.25ML 00:00:00 [place] [facility] BOOSTER VACCINE [facility] SARS-COV-2 COVID-19 2020-03-25 Completed [facility] MODERNA 0.25ML 00:00:00 [place] [facility] BOOSTER VACCINE [facility] SARS-COV-2 COVID-19 2020-03-25 Completed [facility] MODERNA 0.25ML 00:00:00 [place] [facility] BOOSTER VACCINE [facility] SARS-COV-2 COVID-19 2020-03-25 Completed [facility] MODERNA 0.25ML 00:00:00 [place] [facility] BOOSTER VACCINE [facility] SARS-COV-2 COVID-19 2020-03-25 Completed [facility] MODERNA 0.25ML 00:00:00 [place] [facility]ER VACCINE [facility] SARS-COV-2 COVID-19 2020-03-25 Completed [facility] MODERNA 0.25ML 00:00:00 [place] [facility]ER VACCINE [facility] SARS-COV-2 COVID-19 2020-03-25 Completed [facility] MODERNA 0.25ML 00:00:00 [place] [facility]ER VACCINE [facility] SARS-COV-2 COVID-19 2020-03-25 Completed [facility] MODERNA 0.25ML 00:00:00 [place] [facility]ER VACCINE [facility] SARS-COV-2 COVID-19 2020-03-25 Completed [facility] MODERNA 0.25ML 00:00:00 [place] [facility]ER VACCINE [facility] SARS-COV-2 COVID-19 2020-03-25 Completed [facility] MODERNA 0.25ML 00:00:00 [place] [facility] BOOSTER VACCINE [facility] SARS-COV-2 COVID-19 2020-03-25 Completed [facility] MODERNA 0.25ML 00:00:00 [place] [facility] VACCINE [facility] SARS-COV-2 COVID-19 2020-03-25 Completed [facility] MODERNA 0.25ML 00:00:00 [place] [facility]ER VACCINE [facility] SARS-COV-2 COVID-19 2020-03-25 Completed [facility] MODERNA 0.25ML 00:00:00 [place] [facility] VACCINE [facility] SARS-COV-2 COVID-19 2020-03-25 Completed [facility] MODERNA 0.25ML 00:00:00 [place] [facility] VACCINE [facility] SARS-COV-2 COVID-19 2020-03-25 Completed [facility] MODERNA 0.25ML 00:00:00 [place] [facility] VACCINE [facility] SARS-COV-2 COVID-19 2020-03-25 Completed [facility] MODERNA 0.25ML 00:00:00 [place] [facility] VACCINE [facility] SARS-COV-2 COVID-19 2020-03-25 Completed [facility] MODER[facility] 0.25ML 00:00:00 [place] [facility] VACCINE [facility] SARS-COV-2 COVID-19 2020-03-25 Completed [facility] MODERNA 0.25ML 00:00:00 [place] [facility]ER VACCINE [facility] SARS-COV-2 COVID-19 2020-03-25 Completed [facility] MODER[facility] 0.25ML 00:00:00 [place] [facility] VACCINE [facility] SARS-COV-2 COVID-19 2020-03-25 Completed [facility] MODERNA 0.25ML 00:00:00 [place] [facility]ER VACCINE [facility] SARS-COV-2 COVID-19 2020-03-25 Completed [facility] MODERNA 0.25ML 00:00:00 [place] [facility]ER VACCINE [facility] SARS-COV-2 COVID-19 2020-03-25 Completed [facility] MODERNA 0.25ML 00:00:00 [place] [facility] VACCINE [facility] SARS-COV-2 COVID-19 2020-03-25 Completed [facility]ER[facility] 0.25ML 00:00:00 [place] [facility] VACCINE [facility] SARS-COV-2 COVID-19 2020-03-25 Completed [facility] MODER[facility] 0.25ML 00:00:00 [place] [facility] VACCINE [facility] SARS-COV-2 COVID-19 2020-03-25 Completed [facility] MODER[facility] 0.25ML 00:00:00 [place] [facility]ER VACCINE [facility] SARS-COV-2 COVID-19 2020-03-25 Completed [facility] MODERNA 0.25ML 00:00:00 [place] [facility]ER VACCINE [facility] SARS-COV-2 COVID-19 2020-03-25 Completed [facility] MODERNA 0.25ML 00:00:00 [place] [facility] BOOSTER VACCINE [facility] SARS-COV-2 COVID-19 2020-03-25 Completed [facility] MODER[facility] 0.25ML 00:00:00 [place] [facility]ER VACCINE [facility] SARS-COV-2 COVID-19 2020-03-25 Completed [facility] MODER[facility] 0.25ML 00:00:00 [place] [facility] BOOSTER VACCINE [facility] SARS-COV-2 COVID-19 2020-03-25 Completed [facility] MODERNA 0.25ML 00:00:00 [place] [facility] BOOSTER VACCINE [facility] SARS-COV-2 COVID-19 2020-03-25 Completed [facility] MODERNA 0.25ML 00:00:00 [place] [facility] BOOSTER VACCINE [facility] SARS-COV-2 COVID-19 2020-03-25 Completed [facility] MODER[facility] 0.25ML 00:00:00 [place] [facility] BOOSTER VACCINE [facility] SARS-COV-2 COVID-19 2020-03-25 Completed [facility] MODERNA 0.25ML 00:00:00 [place] [facility] BOOSTER VACCINE [facility] SARS-COV-2 COVID-19 2020-03-25 Completed [facility] MODERNA 0.25ML 00:00:00 [place] [facility] BOOSTER VACCINE [facility] SARS-COV-2 COVID-19 2020-03-25 Completed [facility] MODERNA 0.25ML 00:00:00 [place] [facility] BOOSTER VACCINE [facility] SARS-COV-2 COVID-19 2020-03-25 Completed [facility] MODERNA 0.25ML 00:00:00 [place] [facility] BOOSTER VACCINE [facility] SARS-COV-2 COVID-19 2020-03-25 Completed [facility] MODERNA 0.25ML 00:00:00 [place] [facility] BOOSTER VACCINE [facility] SARS-COV-2 COVID-19 2020-03-25 Completed [facility] MODERNA 0.25ML 00:00:00 [place] [facility] BOOSTER VACCINE [facility] SARS-COV-2 COVID-19 2020-03-25 Completed [facility] MODERNA 0.25ML 00:00:00 [place] [facility] BOOSTER VACCINE [facility] SARS-COV-2 COVID-19 2020-03-25 Completed [facility] MODER[facility] 0.25ML 00:00:00 [place] [facility] BOOSTER VACCINE [facility] SARS-COV-2 COVID-19 2020-03-25 Completed [facility] MODERNA 0.25ML 00:00:00 [place] [facility] BOOSTER VACCINE [facility] SARS-COV-2 COVID-19 2020-03-25 Completed [facility] MODERNA 0.25ML 00:00:00 [place] [facility] BOOSTER VACCINE [facility] SARS-COV-2 COVID-19 2020-03-25 Completed [facility] MODERNA 0.25ML 00:00:00 [place] [facility] BOOSTER VACCINE [facility] SARS-COV-2 COVID-19 2020-03-04 Completed [facility] MODERNA 0.25ML 00:00:00 [place] [facility] BOOSTER VACCINE [facility] SARS-COV-2 COVID-19 2020-03-04 Completed [facility] MODERNA 0.25ML 00:00:00 [place] [facility] BOOSTER VACCINE [facility] SARS-COV-2 COVID-19 2020-03-04 Completed [facility] MODERNA 0.25ML 00:00:00 [place] [facility] BOOSTER VACCINE [facility] SARS-COV-2 COVID-19 2020-03-04 Completed [facility] MODERNA 0.25ML 00:00:00 [place] [facility] BOOSTER VACCINE [facility] SARS-COV-2 COVID-19 2020-03-04 Completed [facility] MODERNA 0.25ML 00:00:00 [place] [facility] BOOSTER VACCINE [facility] SARS-COV-2 COVID-19 2020-03-04 Completed [facility] MODERNA 0.25ML 00:00:00 [place] [facility] BOOSTER VACCINE [facility] SARS-COV-2 COVID-19 2020-03-04 Completed [facility] MODERNA 0.25ML 00:00:00 [place] [facility] BOOSTER VACCINE [facility] SARS-COV-2 COVID-19 2020-03-04 Completed [facility] MODERNA 0.25ML 00:00:00 [place] [facility] BOOSTER VACCINE [facility] SARS-COV-2 COVID-19 2020-03-04 Completed [facility] MODERNA 0.25ML 00:00:00 [place] [facility] BOOSTER VACCINE [facility] SARS-COV-2 COVID-19 2020-03-04 Completed [facility] MODERNA 0.25ML 00:00:00 [place] [facility] BOOSTER VACCINE [facility] SARS-COV-2 COVID-19 2020-03-04 Completed [facility] MODERNA 0.25ML 00:00:00 [place] [facility] BOOSTER VACCINE Branch SARS-COV-2 COVID-19 2020-03-04 Completed [facility] MODERNA 0.25ML 00:00:00 [place] [facility] BOOSTER VACCINE [facility] SARS-COV-2 COVID-19 2020-03-04 Completed [facility] MODERNA 0.25ML 00:00:00 [place] [facility] BOOSTER VACCINE Branch SARS-COV-2 COVID-19 2020-03-04 Completed [facility] MODERNA 0.25ML 00:00:00 [place] [facility] BOOSTER VACCINE [facility] SARS-COV-2 COVID-19 2020-03-04 Completed [facility] MODERNA 0.25ML 00:00:00 [place] [facility] BOOSTER VACCINE Branch SARS-COV-2 COVID-19 2020-03-04 Completed [facility] MODERNA 0.25ML 00:00:00 [place] [facility] BOOSTER VACCINE Branch SARS-COV-2 COVID-19 2020-03-04 Completed [facility] MODERNA 0.25ML 00:00:00 [place] [facility] BOOSTER VACCINE Branch SARS-COV-2 COVID-19 2020-03-04 Completed [facility] MODERNA 0.25ML 00:00:00 [place] [facility] BOOSTER VACCINE [facility] SARS-COV-2 COVID-19 2020-03-04 Completed [facility] MODERNA 0.25ML 00:00:00 [place] [facility] BOOSTER VACCINE Branch SARS-COV-2 COVID-19 2020-03-04 Completed [facility] MODERNA 0.25ML 00:00:00 [place] [facility] BOOSTER VACCINE Branch SARS-COV-2 COVID-19 2020-03-04 Completed [facility] MODERNA 0.25ML 00:00:00 [place] [facility] BOOSTER VACCINE Branch SARS-COV-2 COVID-19 2020-03-04 Completed [facility] MODERNA 0.25ML 00:00:00 [place] [facility] BOOSTER VACCINE [facility] SARS-COV-2 COVID-19 2020-03-04 Completed [facility] MODERNA 0.25ML 00:00:00 [place] [facility] BOOSTER VACCINE Branch SARS-COV-2 COVID-19 2020-03-04 Completed [facility] MODERNA 0.25ML 00:00:00 [place] [facility] BOOSTER VACCINE [facility] SARS-COV-2 COVID-19 2020-03-04 Completed [facility] MODERNA 0.25ML 00:00:00 [place] [facility] BOOSTER VACCINE [facility] SARS-COV-2 COVID-19 2020-03-04 Completed [facility] MODERNA 0.25ML 00:00:00 [place] [facility] BOOSTER VACCINE [facility] SARS-COV-2 COVID-19 2020-03-04 Completed [facility] MODERNA 0.25ML 00:00:00 [place] [facility] BOOSTER VACCINE [facility] SARS-COV-2 COVID-19 2020-03-04 Completed [facility] MODERNA 0.25ML 00:00:00 [place] [facility] BOOSTER VACCINE [facility] SARS-COV-2 COVID-19 2020-03-04 Completed [facility] MODERNA 0.25ML 00:00:00 [place] [facility] BOOSTER VACCINE [facility] SARS-COV-2 COVID-19 2020-03-04 Completed [facility] MODERNA 0.25ML 00:00:00 [place] [facility] BOOSTER VACCINE [facility] SARS-COV-2 COVID-19 2020-03-04 Completed [facility] MODERNA 0.25ML 00:00:00 [place] [facility] BOOSTER VACCINE [facility] SARS-COV-2 COVID-19 2020-03-04 Completed [facility] MODERNA 0.25ML 00:00:00 [place] [facility] BOOSTER VACCINE [facility] SARS-COV-2 COVID-19 2020-03-04 Completed [facility] MODERNA 0.25ML 00:00:00 [place] [facility] BOOSTER VACCINE [facility] SARS-COV-2 COVID-19 2020-03-04 Completed [facility] MODERNA 0.25ML 00:00:00 [place] [facility] BOOSTER VACCINE [facility] SARS-COV-2 COVID-19 2020-03-04 Completed [facility] MODERNA 0.25ML 00:00:00 [place] [facility] BOOSTER VACCINE [facility] SARS-COV-2 COVID-19 2020-03-04 Completed [facility] MODERNA 0.25ML 00:00:00 [place] [facility] BOOSTER VACCINE [facility] SARS-COV-2 COVID-19 2020-03-04 Completed [facility] MODERNA 0.25ML 00:00:00 [place] [facility] BOOSTER VACCINE [facility] SARS-COV-2 COVID-19 2020-03-04 Completed [facility] MODERNA 0.25ML 00:00:00 [place] [facility] BOOSTER VACCINE [facility] SARS-COV-2 COVID-19 2020-03-04 Completed [facility] MODERNA 0.25ML 00:00:00 [place] [facility] BOOSTER VACCINE [facility] SARS-COV-2 COVID-19 2020-03-04 Completed [facility] MODERNA 0.25ML 00:00:00 [place] [facility] BOOSTER VACCINE Branch SARS-COV-2 COVID-19 2020-03-04 Completed [facility] MODERNA 0.25ML 00:00:00 [place] [facility] BOOSTER VACCINE [facility] SARS-COV-2 COVID-19 2020-03-04 Completed [facility] MODERNA 0.25ML 00:00:00 [place] [facility] BOOSTER VACCINE [facility] SARS-COV-2 COVID-19 2020-03-04 Completed [facility] MODERNA 0.25ML 00:00:00 [place] [facility] BOOSTER VACCINE [facility] SARS-COV-2 COVID-19 2020-03-04 Completed [facility] MODERNA 0.25ML 00:00:00 [place] [facility] BOOSTER VACCINE [facility] SARS-COV-2 COVID-19 2020-03-04 Completed [facility] MODERNA 0.25ML 00:00:00 [place] [facility] BOOSTER VACCINE Branch SARS-COV-2 COVID-19 2020-03-04 Completed [facility] MODERNA 0.25ML 00:00:00 [place] [facility] BOOSTER VACCINE [facility] SARS-COV-2 COVID-19 2020-03-04 Completed [facility] MODERNA 0.25ML 00:00:00 [place] [facility] BOOSTER VACCINE [facility] SARS-COV-2 COVID-19 2020-03-04 Completed [facility] MODERNA 0.25ML 00:00:00 [place] [facility] BOOSTER VACCINE [facility] SARS-COV-2 COVID-19 2020-03-04 Completed [facility] MODERNA 0.25ML 00:00:00 [place] [facility] BOOSTER VACCINE [facility] SARS-COV-2 COVID-19 2020-03-04 Completed [facility] MODERNA 0.25ML 00:00:00 [place] [facility] BOOST[facility] VACCINE [facility] SARS-COV-2 COVID-19 2020-03-04 Completed [facility] MODERNA 0.25ML 00:00:00 [place] [facility] BOOSTER VACCINE [facility] SARS-COV-2 COVID-19 2020-03-04 Completed [facility] MODERNA 0.25ML 00:00:00 [place] [facility] BOOSTER VACCINE [facility] SARS-COV-2 COVID-19 2020-03-04 Completed [facility] MODERNA 0.25ML 00:00:00 [place] [facility] BOOSTER VACCINE [facility] SARS-COV-2 COVID-19 2020-03-04 Completed [facility] MODERNA 0.25ML 00:00:00 [place] [facility] BOOSTER VACCINE [facility] SARS-COV-2 COVID-19 2020-03-04 Completed [facility] MODERNA 0.25ML 00:00:00 [place] [facility] BOOST[facility] VACCINE [facility] SARS-COV-2 COVID-19 2020-03-04 Completed [facility] MODERNA 0.25ML 00:00:00 [place] [facility] VACCINE [facility] SARS-COV-2 COVID-19 2020-03-04 Completed [facility] MODERNA 0.25ML 00:00:00 [place] [facility] VACCINE [facility] SARS-COV-2 COVID-19 2020-03-04 Completed [facility] MODERNA 0.25ML 00:00:00 [place] [facility] VACCINE [facility] SARS-COV-2 COVID-19 2020-03-04 Completed [facility] MODERNA 0.25ML 00:00:00 [place] [facility] VACCINE [facility] SARS-COV-2 COVID-19 2020-03-04 Completed [facility] MODERNA 0.25ML 00:00:00 [place] [facility] VACCINE [facility] SARS-COV-2 COVID-19 2020-03-04 Completed [facility] MODERNA 0.25ML 00:00:00 [place] [facility] VACCINE [facility] SARS-COV-2 COVID-19 2020-03-04 Completed [facility] MODERNA 0.25ML 00:00:00 [place] [facility] VACCINE [facility] SARS-COV-2 COVID-19 2020-03-04 Completed [facility] MODERNA 0.25ML 00:00:00 [place] [facility] VACCINE [facility] SARS-COV-2 COVID-19 2020-03-04 Completed [facility] MODERNA 0.25ML 00:00:00 [place] [facility]ER VACCINE [facility] SARS-COV-2 COVID-19 2020-03-04 Completed [facility] MODERNA 0.25ML 00:00:00 [place] [facility] BOOSTER VACCINE [facility] SARS-COV-2 COVID-19 2020-03-04 Completed [facility] MODERNA 0.25ML 00:00:00 [place] [facility]ER VACCINE [facility] SARS-COV-2 COVID-19 2020-03-04 Completed [facility] MODERNA 0.25ML 00:00:00 [place] [facility]ER VACCINE [facility] SARS-COV-2 COVID-19 2020-03-04 Completed [facility] MODERNA 0.25ML 00:00:00 [place] [facility] BOOSTER VACCINE [facility] SARS-COV-2 COVID-19 2020-03-04 Completed [facility] MODERNA 0.25ML 00:00:00 [place] [facility]ER VACCINE [facility] SARS-COV-2 COVID-19 2020-03-04 Completed [facility] MODERNA 0.25ML 00:00:00 [place] [facility]ER VACCINE [facility] SARS-COV-2 COVID-19 2020-03-04 Completed [facility] MODERNA 0.25ML 00:00:00 [place] [facility] VACCINE [facility] SARS-COV-2 COVID-19 2020-03-04 Completed [facility] MODERNA 0.25ML 00:00:00 [place] [facility] BOOSTER VACCINE [facility] SARS-COV-2 COVID-19 2020-03-04 Completed [facility] MODERNA 0.25ML 00:00:00 [place] [facility] BOOSTER VACCINE [facility] SARS-COV-2 COVID-19 2020-03-04 Completed [facility] MODERNA 0.25ML 00:00:00 [place] [facility] VACCINE [facility] SARS-COV-2 COVID-19 2020-03-04 Completed [facility] MODERNA 0.25ML 00:00:00 [place] [facility]ER VACCINE [facility] SARS-COV-2 COVID-19 2020-03-04 Completed [facility] MODERNA 0.25ML 00:00:00 [place] [facility] BOOSTER VACCINE [facility] SARS-COV-2 COVID-19 2020-03-04 Completed [facility] MODERNA 0.25ML 00:00:00 [place] [facility] VACCINE [facility] SARS-COV-2 COVID-19 2020-03-04 Completed [facility] MODERNA 0.25ML 00:00:00 [place] [facility] VACCINE [facility] SARS-COV-2 COVID-19 2020-03-04 Completed [facility] MODERNA 0.25ML 00:00:00 [place] [facility] VACCINE [facility] SARS-COV-2 COVID-19 2020-03-04 Completed [facility] MODERNA 0.25ML 00:00:00 [place] [facility] BOOSTER VACCINE [facility] SARS-COV-2 COVID-19 2020-03-04 Completed [facility] MODERNA 0.25ML 00:00:00 [place] [facility] VACCINE [facility] SARS-COV-2 COVID-19 2020-03-04 Completed [facility] MODERNA 0.25ML 00:00:00 [place] [facility]ER VACCINE [facility] SARS-COV-2 COVID-19 2020-03-04 Completed [facility] MODERNA 0.25ML 00:00:00 [place] [facility] VACCINE [facility] SARS-COV-2 COVID-19 2020-03-04 Completed [facility] MODERNA 0.25ML 00:00:00 [place] [facility] BOOST[facility] VACCINE [facility] SARS-COV-2 COVID-19 2020-03-04 Completed [facility] of MODERNA 0.25ML 00:00:00 [place] [facility]ER VACCINE Branch SARS-COV-2 COVID-19 2020-03-04 Completed [facility] of MODERNA 0.25ML 00:00:00 [place] [facility] VACCINE [facility] SARS-COV-2 COVID-19 2020-03-04 Completed [facility] MODERNA 0.25ML 00:00:00 [place] [facility] VACCINE Branch SARS-COV-2 COVID-19 2020-03-04 Completed [facility] of MODERNA 0.25ML 00:00:00 [place] [facility] BOOSTER VACCINE Branch SARS-COV-2 COVID-19 2020-03-04 Completed [facility] MODERNA 0.25ML 00:00:00 [place] [facility] VACCINE [facility] SARS-COV-2 COVID-19 2020-03-04 Completed [facility] MODERNA 0.25ML 00:00:00 [place] [facility] VACCINE [facility] HEPATITIS A 2017-06-02 Completed [facility] 00:00:00 [facility] HPV9 2017-06-02 Completed [facility] 00:00:00 [facility] Meningococcal 2017-06-02 Completed [facility] Polysaccharide 00:00:00 [facility]enzie (groups A, C, Y and Branc h W-135) conjugate vaccine (MCV4P) HEPATITIS A 2017-06-02 Completed [facility] 00:00:00 [facility] HPV9 2017-06-02 Completed [facility] 00:00:00 [facility] Meningococcal 2017-06-02 Completed [facility] Polysaccharide 00:00:00 [place] [facility] (groups A, C, Y and Branc h W-135) conjugate vaccine (MCV4P) HEPATITIS A 2017-06-02 Completed [facility] 00:00:00 [facility] HPV9 2017-06-02 Completed [facility] 00:00:00 [facility] Meningococcal 2017-06-02 Completed [facility] Polysaccharide 00:00:00 [place] [facility] (groups A, C, Y and Branc h W-135) conjugate vaccine (MCV4P) HEPATITIS A 2017-06-02 Completed [facility] 00:00:00 [facility] HPV9 2017-06-02 Completed [facility] 00:00:00 [facility] Meningococcal 2017-06-02 Completed [facility] Polysaccharide 00:00:00 [place] [facility] (groups A, C, Y and Branc h W-135) conjugate vaccine (MCV4P) HEPATITIS A 2017-06-02 Completed [facility] 00:00:00 [facility] HPV9 2017-06-02 Completed [facility] 00:00:00 [facility] Meningococcal 2017-06-02 Completed [facility] Polysaccharide 00:00:00 [place] [facility] (groups A, C, Y and Branc h W-135) conjugate vaccine (MCV4P) HEPATITIS A 2017-06-02 Completed [facility] 00:00:00 [facility] HPV9 2017-06-02 Completed [facility] 00:00:00 [facility] Meningococcal 2017-06-02 Completed [facility] Polysaccharide 00:00:00 [facility] (groups A, C, Y and Branc h W-135) conjugate vaccine (MCV4P) HEPATITIS A 2017-06-02 Completed [facility] 00:00:00 [facility] HPV9 2017-06-02 Completed [facility] 00:00:00 [facility] Meningococcal 2017-06-02 Completed [facility] Polysaccharide 00:00:00 [facility] (groups A, C, Y and Branc h W-135) conjugate vaccine (MCV4P) HEPATITIS A 2017-06-02 Completed [facility] 00:00:00 [facility] HPV9 2017-06-02 Completed [facility] 00:00:00 [facility] Meningococcal 2017-06-02 Completed [facility] Polysaccharide 00:00:00 [facility] (groups A, C, Y and Branc h W-135) conjugate vaccine (MCV4P) HEPATITIS A 2017-06-02 Completed [facility] 00:00:00 [facility] HPV9 2017-06-02 Completed [facility] 00:00:00 [facility] Meningococcal 2017-06-02 Completed [facility] Polysaccharide 00:00:00 [facility] (groups A, C, Y and Branc h W-135) conjugate vaccine (MCV4P) HEPATITIS A 2017-06-02 Completed [facility] 00:00:00 [facility] HPV9 2017-06-02 Completed [facility] 00[facility]00 [place] [facility] M[facility]ococcal 2017-06-02 Completed [facility] Polysaccharide 00:00:00 [place] [facility] (groups A, C, Y and Branc h W-135) conjugate vaccine (MCV4P) HEPATITIS A 2017-06-02 Completed [facility] 00:00:00 [facility] HPV9 2017-06-02 Completed [facility] 00:00:00 [facility] Meningococcal 2017-06-02 Completed [facility] Polysaccharide 00:00:00 [place] [facility] (groups A, C, Y and Branc h W-135) conjugate vaccine (MCV4P) HEPATITIS A 2017-06-02 Completed [facility] 00:00:00 [facility] HPV9 2017-06-02 Completed [facility] 00:00:00 [facility] Meningococcal 2017-06-02 Completed [facility] Polysaccharide 00:00:00 [place] [facility] (groups A, C, Y and Branc h W-135) conjugate vaccine (MCV4P) HEPATITIS A 2017-06-02 Completed [facility] 00:00:00 [facility] HPV9 2017-06-02 Completed [facility] 00:00:00 [facility] Meningococcal 2017-06-02 Completed [facility] Polysaccharide 00:00:00 [place] [facility] (groups A, C, Y and Branc h W-135) conjugate vaccine (MCV4P) HEPATITIS A 2017-06-02 Completed [facility] 00:00:00 [facility] HPV9 2017-06-02 Completed [facility] 00:00:00 [facility] Meningococcal 2017-06-02 Completed [facility] Polysaccharide 00:00:00 [place] [facility] (groups A, C, Y and Branc h W-135) conjugate vaccine (MCV4P) HEPATITIS A 2017-06-02 Completed [facility] 00:00:00 [facility] HPV9 2017-06-02 Completed [facility] 00:00:00 [facility] Meningococcal 2017-06-02 Completed [facility] Polysaccharide 00:00:00 [place] [facility] (groups A, C, Y and Branc h W-135) conjugate vaccine (MCV4P) HEPATITIS A 2017-06-02 Completed [facility] 00:00:00 [facility] HPV9 2017-06-02 Completed [facility] 00:00:00 [facility] Meningococcal 2017-06-02 Completed [facility] Polysaccharide 00:00:00 [place] [facility] (groups A, C, Y and Branc h W-135) conjugate vaccine (MCV4P) HEPATITIS A 2017-06-02 Completed [facility] 00:00:00 [facility] HPV9 2017-06-02 Completed [facility] 00:00:00 [facility] Meningococcal 2017-06-02 Completed [facility] Polysaccharide 00:00:00 [place] [facility] (groups A, C, Y and Branc h W-135) conjugate vaccine (MCV4P) HEPATITIS A 2017-06-02 Completed [facility] 00:00:00 [facility] HPV9 2017-06-02 Completed [facility] 00:00:00 [facility] Meningococcal 2017-06-02 Completed [facility] Polysaccharide 00:00:00 [place] [facility] (groups A, C, Y and Branc h W-135) conjugate vaccine (MCV4P) HEPATITIS A 2017-06-02 Completed [facility] 00:00:00 [facility] HPV9 2017-06-02 Completed [facility] 00:00:00 [facility] Meningococcal 2017-06-02 Completed [facility] Polysaccharide 00:00:00 [place] [facility] (groups A, C, Y and Branc h W-135) conjugate vaccine (MCV4P) HEPATITIS A 2017-06-02 Completed [facility] 00:00:00 [facility] HPV9 2017-06-02 Completed [facility] 00:00:00 [facility] Meningococcal 2017-06-02 Completed [facility] Polysaccharide 00:00:00 [place] [facility] (groups A, C, Y and Branc h W-135) conjugate vaccine (MCV4P) HEPATITIS A 2017-06-02 Completed [facility] 00:00:00 [facility] HPV9 2017-06-02 Completed [facility] 00:00:00 [facility] Meningococcal 2017-06-02 Completed [facility] Polysaccharide 00:00:00 [place] [facility] (groups A, C, Y and Branc h W-135) conjugate vaccine (MCV4P) HEPATITIS A 2017-06-02 Completed [facility] 00:00:00 [facility] HPV9 2017-06-02 Completed [facility] 00:00:00 [facility] Meningococcal 2017-06-02 Completed [facility] Polysaccharide 00:00:00 [place] [facility] (groups A, C, Y and Branc h W-135) conjugate vaccine (MCV4P) HEPATITIS A 2017-06-02 Completed [facility] 00:00:00 [facility] HPV9 2017-06-02 Completed [facility] 00:00:00 [facility] Meningococcal 2017-06-02 Completed [facility] Polysaccharide 00:00:00 [place] [facility] (groups A, C, Y and Branc h W-135) conjugate vaccine (MCV4P) HEPATITIS A 2017-06-02 Completed [facility] 00:00:00 [facility] HPV9 2017-06-02 Completed [facility] 00:00:00 [facility] Meningococcal 2017-06-02 Completed [facility] Polysaccharide 00:00:00 [place] [facility] (groups A, C, Y and Branc h W-135) conjugate vaccine (MCV4P) HEPATITIS A 2017-06-02 Completed [facility] 00:00:00 [facility] HPV9 2017-06-02 Completed [facility] 00:00:00 [facility] Meningococcal 2017-06-02 Completed [facility] Polysaccharide 00:00:00 [place] [facility] (groups A, C, Y and Branc h W-135) conjugate vaccine (MCV4P) HEPATITIS A 2017-06-02 Completed [facility] 00:00:00 [facility] HPV9 2017-06-02 Completed [facility] 00:00:00 [facility] Meningococcal 2017-06-02 Completed [facility] Polysaccharide 00:00:00 [place] [facility] (groups A, C, Y and Branc h W-135) conjugate vaccine (MCV4P) HEPATITIS A 2017-06-02 Completed [facility] 00:00:00 [facility] HPV9 2017-06-02 Completed [facility] 00:00:00 [facility] Meningococcal 2017-06-02 Completed [facility] Polysaccharide 00:00:00 [place] [facility] (groups A, C, Y and Branc h W-135) conjugate vaccine (MCV4P) HEPATITIS A 2017-06-02 Completed [facility] 00:00:00 [facility] HPV9 2017-06-02 Completed [facility] 00:00:00 [facility] Meningococcal 2017-06-02 Completed [facility] Polysaccharide 00:00:00 [place] [facility] (groups A, C, Y and Branc h W-135) conjugate vaccine (MCV4P) HEPATITIS A 2017-06-02 Completed [facility] 00:00:00 [facility] HPV9 2017-06-02 Completed [facility] 00:00:00 [facility] Meningococcal 2017-06-02 Completed [facility] Polysaccharide 00:00:00 [place] [facility] (groups A, C, Y and Branc h W-135) conjugate vaccine (MCV4P) HEPATITIS A 2017-06-02 Completed [facility] 00:00:00 [facility] HPV9 2017-06-02 Completed [facility] 00:00:00 [facility] Meningococcal 2017-06-02 Completed [facility] Polysaccharide 00:00:00 [place] [facility] (groups A, C, Y and Branc h W-135) conjugate vaccine (MCV4P) HEPATITIS A 2017-06-02 Completed [facility] 00:00:00 [facility] HPV9 2017-06-02 Completed [facility] 00:00:00 [facility] Meningococcal 2017-06-02 Completed [facility] Polysaccharide 00:00:00 [place] [facility] (groups A, C, Y and Branc h W-135) conjugate vaccine (MCV4P) HEPATITIS A 2017-06-02 Completed [facility] 00:00:00 [facility] HPV9 2017-06-02 Completed [facility] 00:00:00 [facility] Meningococcal 2017-06-02 Completed [facility] Polysaccharide 00:00:00 [place] [facility] (groups A, C, Y and Branc h W-135) conjugate vaccine (MCV4P) HEPATITIS A 2017-06-02 Completed [facility] 00:00:00 [facility] HPV9 2017-06-02 Completed [facility] 00:00:00 [facility] Meningococcal 2017-06-02 Completed [facility] Polysaccharide 00:00:00 [place] [facility] (groups A, C, Y and Branc h W-135) conjugate vaccine (MCV4P) HEPATITIS A 2017-06-02 Completed [facility] 00:00:00 [facility] HPV9 2017-06-02 Completed [facility] 00:00:00 [facility] Meningococcal 2017-06-02 Completed [facility] Polysaccharide 00:00:00 [place] [facility] (groups A, C, Y and Branc h W-135) conjugate vaccine (MCV4P) HEPATITIS A 2017-06-02 Completed [facility] 00:00:00 [facility] HPV9 2017-06-02 Completed [facility] 00:00:00 [facility] Meningococcal 2017-06-02 Completed [facility] Polysaccharide 00:00:00 [place] [facility] (groups A, C, Y and Branc h W-135) conjugate vaccine (MCV4P) HEPATITIS A 2017-06-02 Completed [facility] 00:00:00 [facility] HPV9 2017-06-02 Completed [facility] 00:00:00 [facility] Meningococcal 2017-06-02 Completed [facility] Polysaccharide 00:00:00 [place] [facility] (groups A, C, Y and Branc h W-135) conjugate vaccine (MCV4P) HEPATITIS A 2017-06-02 Completed [facility] 00:00:00 [facility] HPV9 2017-06-02 Completed [facility] 00:00:00 [facility] Meningococcal 2017-06-02 Completed [facility] Polysaccharide 00:00:00 [place] [facility] (groups A, C, Y and Branc h W-135) conjugate vaccine (MCV4P) HEPATITIS A 2017-06-02 Completed [facility] 00:00:00 [facility] HPV9 2017-06-02 Completed [facility] 00:00:00 [facility] Meningococcal 2017-06-02 Completed [facility] Polysaccharide 00:00:00 [place] [facility] (groups A, C, Y and Branc h W-135) conjugate vaccine (MCV4P) HEPATITIS A 2017-06-02 Completed [facility] 00:00:00 [facility] HPV9 2017-06-02 Completed [facility] 00:00:00 [facility] Meningococcal 2017-06-02 Completed [facility] Polysaccharide 00:00:00 [place] [facility] (groups A, C, Y and Branc h W-135) conjugate vaccine (MCV4P) HEPATITIS A 2017-06-02 Completed [facility] 00:00:00 [facility] HPV9 2017-06-02 Completed [facility] 00:00:00 [facility] Meningococcal 2017-06-02 Completed [facility] Polysaccharide 00:00:00 [place] [facility] (groups A, C, Y and Branc h W-135) conjugate vaccine (MCV4P) HEPATITIS A 2017-06-02 Completed [facility] 00:00:00 [facility] HPV9 2017-06-02 Completed [facility] 00:00:00 [facility] Meningococcal 2017-06-02 Completed [facility] Polysaccharide 00:00:00 [place] [facility] (groups A, C, Y and Branc h W-135) conjugate vaccine (MCV4P) HEPATITIS A 2017-06-02 Completed [facility] 00:00:00 [facility] HPV9 2017-06-02 Completed [facility] 00:00:00 [facility] Meningococcal 2017-06-02 Completed [facility] Polysaccharide 00:00:00 [place] [facility] (groups A, C, Y and Branc h W-135) conjugate vaccine (MCV4P) HEPATITIS A 2017-06-02 Completed [facility] 00:00:00 [facility] HPV9 2017-06-02 Completed [facility] 00:00:00 [facility] Meningococcal 2017-06-02 Completed [facility] Polysaccharide 00:00:00 [place] [facility] (groups A, C, Y and Branc h W-135) conjugate vaccine (MCV4P) HEPATITIS A 2017-06-02 Completed [facility] 00:00:00 [facility] HPV9 2017-06-02 Completed [facility] 00:00:00 [facility] Meningococcal 2017-06-02 Completed [facility] Polysaccharide 00:00:00 [place] [facility] (groups A, C, Y and Branc h W-135) conjugate vaccine (MCV4P) HEPATITIS A 2017-06-02 Completed [facility] 00:00:00 [facility] HPV9 2017-06-02 Completed [facility] 00:00:00 [facility] Meningococcal 2017-06-02 Completed [facility] Polysaccharide 00:00:00 [place] [facility] (groups A, C, Y and Branc h W-135) conjugate vaccine (MCV4P) HEPATITIS A 2017-06-02 Completed [facility] 00:00:00 [facility] HPV9 2017-06-02 Completed [facility] 00:00:00 [facility] Meningococcal 2017-06-02 Completed [facility] Polysaccharide 00:00:00 [place] [facility] (groups A, C, Y and Branc h W-135) conjugate vaccine (MCV4P) HEPATITIS A 2017-06-02 Completed [facility] 00:00:00 [facility] HPV9 2017-06-02 Completed [facility] 00:00:00 [facility] Meningococcal 2017-06-02 Completed [facility] Polysaccharide 00:00:00 [place] [facility] (groups A, C, Y and Branc h W-135) conjugate vaccine (MCV4P) HEPATITIS A 2017-06-02 Completed [facility] 00:00:00 [facility] HPV9 2017-06-02 Completed [facility] 00:00:00 [facility] Meningococcal 2017-06-02 Completed [facility] Polysaccharide 00:00:00 [place] [facility] (groups A, C, Y and Branc h W-135) conjugate vaccine (MCV4P) HEPATITIS A 2017-06-02 Completed [facility] 00:00:00 [facility] HPV9 2017-06-02 Completed [facility] 00:00:00 [facility] Meningococcal 2017-06-02 Completed [facility] Polysaccharide 00:00:00 [place] [facility] (groups A, C, Y and Branc h W-135) conjugate vaccine (MCV4P) HEPATITIS A 2017-06-02 Completed [facility] 00:00:00 [facility] HPV9 2017-06-02 Completed [facility] 00:00:00 [facility] Meningococcal 2017-06-02 Completed [facility] Polysaccharide 00:00:00 [place] [facility] (groups A, C, Y and Branc h W-135) conjugate vaccine (MCV4P) HEPATITIS A 2017-06-02 Completed [facility] 00:00:00 [facility] HPV9 2017-06-02 Completed [facility] 00:00:00 [facility] Meningococcal 2017-06-02 Completed [facility] Polysaccharide 00:00:00 [place] [facility] (groups A, C, Y and Branc h W-135) conjugate vaccine (MCV4P) HEPATITIS A 2017-06-02 Completed [facility] 00:00:00 [facility] HPV9 2017-06-02 Completed [facility] 00:00:00 [facility] Meningococcal 2017-06-02 Completed [facility] Polysaccharide 00:00:00 [place] [facility] (groups A, C, Y and Branc h W-135) conjugate vaccine (MCV4P) HEPATITIS A 2017-06-02 Completed [facility] 00:00:00 [facility] HPV9 2017-06-02 Completed [facility] 00:00:00 [facility] Meningococcal 2017-06-02 Completed [facility] Polysaccharide 00:00:00 [place] [facility] (groups A, C, Y and Branc h W-135) conjugate vaccine (MCV4P) HEPATITIS A 2017-06-02 Completed [facility] 00:00:00 [facility] HPV9 2017-06-02 Completed [facility] 00:00:00 [facility] Meningococcal 2017-06-02 Completed [facility] Polysaccharide 00:00:00 [place] [facility] (groups A, C, Y and Branc h W-135) conjugate vaccine (MCV4P) HEPATITIS A 2017-06-02 Completed [facility] 00:00:00 [facility] HPV9 2017-06-02 Completed [facility] 00:00:00 [facility] Meningococcal 2017-06-02 Completed [facility] Polysaccharide 00:00:00 [place] [facility] (groups A, C, Y and Branc h W-135) conjugate vaccine (MCV4P) HEPATITIS A 2017-06-02 Completed [facility] 00:00:00 [facility] HPV9 2017-06-02 Completed [facility] 00:00:00 [facility] Meningococcal 2017-06-02 Completed [facility] Polysaccharide 00:00:00 [place] [facility] (groups A, C, Y and Branc h W-135) conjugate vaccine (MCV4P) HEPATITIS A 2017-06-02 Completed [facility] 00:00:00 [facility] HPV9 2017-06-02 Completed [facility] 00:00:00 [facility] Meningococcal 2017-06-02 Completed [facility] Polysaccharide 00:00:00 [place] [facility] (groups A, C, Y and Branc h W-135) conjugate vaccine (MCV4P) HEPATITIS A 2017-06-02 Completed [facility] 00:00:00 [facility] HPV9 2017-06-02 Completed [facility] 00:00:00 [facility] Meningococcal 2017-06-02 Completed [facility] Polysaccharide 00:00:00 [place] [facility] (groups A, C, Y and Branc h W-135) conjugate vaccine (MCV4P) HEPATITIS A 2017-06-02 Completed [facility] 00:00:00 [facility] HPV9 2017-06-02 Completed [facility] 00:00:00 [facility] Meningococcal 2017-06-02 Completed [facility] Polysaccharide 00:00:00 [place] [facility] (groups A, C, Y and Branc h W-135) conjugate vaccine (MCV4P) HEPATITIS A 2017-06-02 Completed [facility] 00:00:00 [facility] HPV9 2017-06-02 Completed [facility] 00:00:00 [facility] Meningococcal 2017-06-02 Completed [facility] Polysaccharide 00:00:00 [place] [facility] (groups A, C, Y and Branc h W-135) conjugate vaccine (MCV4P) HEPATITIS A 2017-06-02 Completed [facility] 00:00:00 [facility] HPV9 2017-06-02 Completed [facility] 00:00:00 [facility] Meningococcal 2017-06-02 Completed [facility] Polysaccharide 00:00:00 [place] [facility] (groups A, C, Y and Branc h W-135) conjugate vaccine (MCV4P) HEPATITIS A 2017-06-02 Completed [facility] 00:00:00 [facility] HPV9 2017-06-02 Completed [facility] 00:00:00 [facility] Meningococcal 2017-06-02 Completed [facility] Polysaccharide 00:00:00 [place] [facility] (groups A, C, Y and Branc h W-135) conjugate vaccine (MCV4P) HEPATITIS A 2017-06-02 Completed [facility] 00:00:00 [facility] HPV9 2017-06-02 Completed [facility] 00:00:00 [facility] Meningococcal 2017-06-02 Completed [facility] Polysaccharide 00:00:00 [place] [facility] (groups A, C, Y and Branc h W-135) conjugate vaccine (MCV4P) HEPATITIS A 2017-06-02 Completed [facility] 00:00:00 [facility] HPV9 2017-06-02 Completed [facility] 00:00:00 [facility] Meningococcal 2017-06-02 Completed [facility] Polysaccharide 00:00:00 [place] [facility] (groups A, C, Y and Branc h W-135) conjugate vaccine (MCV4P) HEPATITIS A 2017-06-02 Completed [facility] 00:00:00 [facility] HPV9 2017-06-02 Completed [facility] 00:00:00 [facility] Meningococcal 2017-06-02 Completed [facility] Polysaccharide 00:00:00 [place] [facility] (groups A, C, Y and Branc h W-135) conjugate vaccine (MCV4P) HEPATITIS A 2017-06-02 Completed [facility] 00:00:00 [facility] HPV9 2017-06-02 Completed [facility] 00:00:00 [facility] Meningococcal 2017-06-02 Completed [facility] Polysaccharide 00:00:00 [place] [facility] (groups A, C, Y and Branc h W-135) conjugate vaccine (MCV4P) HEPATITIS A 2017-06-02 Completed [facility] 00:00:00 [facility] HPV9 2017-06-02 Completed [facility] 00:00:00 [facility] Meningococcal 2017-06-02 Completed [facility] Polysaccharide 00:00:00 [place] [facility] (groups A, C, Y and Branc h W-135) conjugate vaccine (MCV4P) HEPATITIS A 2017-06-02 Completed [facility] 00:00:00 [facility] HPV9 2017-06-02 Completed [facility] 00:00:00 [facility] Meningococcal 2017-06-02 Completed [facility] Polysaccharide 00:00:00 [place] [facility] (groups A, C, Y and Branc h W-135) conjugate vaccine (MCV4P) HEPATITIS A 2017-06-02 Completed [facility] 00:00:00 [facility] HPV9 2017-06-02 Completed [facility] 00:00:00 [facility] Meningococcal 2017-06-02 Completed [facility] Polysaccharide 00:00:00 [place] [facility] (groups A, C, Y and Branc h W-135) conjugate vaccine (MCV4P) HEPATITIS A 2017-06-02 Completed [facility] 00:00:00 [facility] HPV9 2017-06-02 Completed [facility] 00:00:00 [facility] Meningococcal 2017-06-02 Completed [facility] Polysaccharide 00:00:00 [place] [facility] (groups A, C, Y and Branc h [...] Branch HPV 2011-12-29 Completed [facility] 00:00:00 [facility] HPV 2011-12-29 Completed [facility] 00:00:00 [facility] HPV 2011-12-29 Completed [facility] 00:00:00 [facility] HPV 2011-12-29 Completed [facility] 00:00:00 [facility] HPV 2011-12-29 Completed [facility] 00:00:00 [facility] HPV 2011-12-29 Completed [facility] 00:00:00 [facility] HPV 2011-12-29 Completed [facility] 00:00:00 [facility] HPV 2011-12-29 Completed [facility] 00:00:00 [facility] HPV 2011-12-29 Completed [facility] 00:00:00 [facility] HPV 2011-12-29 Completed [facility] 00:00:00 [facility] HPV 2011-12-29 Completed [facility] 00:00:00 [facility] HPV 2011-12-29 Completed [facility] 00:00:00 [facility] HPV 2011-12-29 Completed [facility] 00:00:00 [facility] HPV 2011-12-29 Completed [facility] 00:00:00 [facility] HPV 2011-12-29 Completed [facility] 00:00:00 [facility] HPV 2011-12-29 Completed [facility] 00:00:00 [facility] HPV 2011-12-29 Completed [facility] 00:00:00 [facility] HPV 2011-12-29 Completed [facility] 00:00:00 [facility] HPV 2011-12-29 Completed [facility] 00:00:00 [facility] HPV 2011-12-29 Completed [facility] 00:00:00 [facility] HPV 2011-12-29 Completed [facility] 00:00:00 [facility] HPV 2011-12-29 Completed [facility] 00:00:00 [facility] HPV 2011-12-29 Completed [facility] 00:00:00 [facility] HPV 2011-12-29 Completed [facility] 00:00:00 [facility] HEPATITIS A 2011-10-26 Completed [facility] 00:00:00 [facility] HPV 2011-10-26 Completed [facility] 00:00:00 [facility] Meningococcal 2011-10-26 Completed [facility] Polysaccharide 00:00:00 [facility]enzie (groups A, C, Y and Branc h W-135) conjugate vaccine (MCV4P) TDAP 2011-10-26 Completed [facility] 00:00:00 [facility] Varicella 2011-10-26 Completed [facility] (varivax)(chicken 00:00:00 [place] [facility] HEPATITIS A 2011-10-26 Completed [facility] 00:00:00 [facility] HPV 2011-10-26 Completed [facility] 00:00:00 [facility] Meningococcal 2011-10-26 Completed [facility] Polysaccharide 00:00:00 [place] [facility] (groups A, C, Y and Branc h W-135) conjugate vaccine (MCV4P) TDAP 2011-10-26 Completed [facility] 00:00:00 [facility] Varicella 2011-10-26 Completed [facility] (varivax)(chicken 00:00:00 [place] [facility] HEPATITIS A 2011-10-26 Completed [facility] 00:00:00 [facility] HPV 2011-10-26 Completed [facility] 00:00:00 [facility] Meningococcal 2011-10-26 Completed [facility] Polysaccharide 00:00:00 [place] [facility] (groups A, C, Y and Branc h W-135) conjugate vaccine (MCV4P) TDAP 2011-10-26 Completed [facility] 00:00:00 [facility] Varicella 2011-10-26 Completed [facility] (varivax)(chicken 00:00:00 [facility] edical pox) Branch HEPATITIS A 2011-10-26 Completed [facility] 00:00:00 [facility] HPV 2011-10-26 Completed [facility] 00:00:00 [facility] Meningococcal 2011-10-26 Completed [facility] Polysaccharide 00:00:00 [place] [facility] (groups A, C, Y and Branc h W-135) conjugate vaccine (MCV4P) TDAP 2011-10-26 Completed [facility] 00:00:00 [facility] Varicella 2011-10-26 Completed [facility] (varivax)(chicken 00:00:00 [place] [facility] HEPATITIS A 2011-10-26 Completed [facility] 00:00:00 [facility] HPV 2011-10-26 Completed [facility] 00:00:00 [facility] Meningococcal 2011-10-26 Completed [facility] Polysaccharide 00:00:00 [facility] (groups A, C, Y and Branc h W-135) conjugate vaccine (MCV4P) TDAP 2011-10-26 Completed [facility] 00:00:00 [facility] Varicella 2011-10-26 Completed [facility] (varivax)(chicken 00:00:00 [place] [facility]ox) [facility] HEPATITIS A 2011-10-26 Completed [facility] 00:00:00 [facility] HPV 2011-10-26 Completed [facility] 00:00:00 [facility] Meningococcal 2011-10-26 Completed [facility] Polysaccharide 00:00:00 [facility] (groups A, C, Y and Branc h W-135) conjugate vaccine (MCV4P) TDAP 2011-10-26 Completed [facility] 00:00:00 [facility] Varicella 2011-10-26 Completed [facility] (varivax)(chicken 00:00:00 [place] [facility] HEPATITIS A 2011-10-26 Completed [facility] 00:00:00 [facility] HPV 2011-10-26 Completed [facility] 00:00:00 [facility] Meningococcal 2011-10-26 Completed [facility] Polysaccharide 00:00:00 [facility] (groups A, C, Y and Branc h W-135) conjugate vaccine (MCV4P) TDAP 2011-10-26 Completed [facility] 00:00:00 [facility] Varicella 2011-10-26 Completed [facility] (varivax)(chicken 00:00:00 [facility] edical pox) Branch HEPATITIS A 2011-10-26 Completed [facility] 00:00:00 [facility] HPV 2011-10-26 Completed [facility] 00:00:00 [facility] Meningococcal 2011-10-26 Completed [facility] Polysaccharide 00:00:00 [facility] (groups A, C, Y and Branc h W-135) conjugate vaccine (MCV4P) TDAP 2011-10-26 Completed [facility] 00:00:00 [facility] Varicella 2011-10-26 Completed [facility] (varivax)(chicken 00:00:00 [place] [facility] HEPATITIS A 2011-10-26 Completed [facility] 00:00:00 [facility] HPV 2011-10-26 Completed [facility] 00:00:00 [facility] Meningococcal 2011-10-26 Completed [facility] Polysaccharide 00:00:00 [facility] (groups A, C, Y and Branc h W-135) conjugate vaccine (MCV4P) TDAP 2011-10-26 Completed [facility] 00:00:00 [facility] Varicella 2011-10-26 Completed [facility] (varivax)(chicken 00:00:00 [facility] edical pox) Branch HEPATITIS A 2011-10-26 Completed [facility] 00:00:00 [facility] HPV 2011-10-26 Completed [facility] 00:00:00 [facility] Meningococcal 2011-10-26 Completed [facility] Polysaccharide 00:00:00 [facility] (groups A, C, Y and Branc h W-135) conjugate vaccine (MCV4P) TDAP 2011-10-26 Completed [facility] 00:00:00 [facility] Varicella 2011-10-26 Completed [facility] (varivax)(chicken 00:00:00 [place] [facility] HEPATITIS A 2011-10-26 Completed [facility] 00:00:00 [facility] HPV 2011-10-26 Completed [facility] 00:00:00 [facility] Meningococcal 2011-10-26 Completed [facility] Polysaccharide 00:00:00 [facility] (groups A, C, Y and Branc h W-135) conjugate vaccine (MCV4P) TDAP 2011-10-26 Completed [facility] 00:00:00 [facility] Varicella 2011-10-26 Completed [facility] (varivax)(chicken 00:00:00 [place] [facility] p[facility]) Branch HEPATITIS A 2011-10-26 Completed [facility] 00:00:00 [facility] HPV 2011-10-26 Completed [facility] 00:00:00 [facility] Meningococcal 2011-10-26 Completed [facility] Polysaccharide 00:00:00 [facility] (groups A, C, Y and Branc h W-135) conjugate vaccine (MCV4P) TDAP 2011-10-26 Completed [facility] 00:00:00 [facility] Varicella 2011-10-26 Completed [facility] (varivax)(chicken 00:00:00 [place] [facility]) Branch HEPATITIS A 2011-10-26 Completed [facility] 00:00:00 [facility] HPV 2011-10-26 Completed [facility] 00:00:00 [facility] Meningococcal 2011-10-26 Completed [facility] Polysaccharide 00:00:00 [facility] (groups A, C, Y and Branc h W-135) conjugate vaccine (MCV4P) TDAP 2011-10-26 Completed [facility] 00:00:00 [facility] Varicella 2011-10-26 Completed [facility] (varivax)(chicken 00:00:00 [place] [facility] pox) Branch HEPATITIS A 2011-10-26 Completed [facility] 00:00:00 [facility] HPV 2011-10-26 Completed [facility] 00:00:00 [facility] Meningococcal 2011-10-26 Completed [facility] Polysaccharide 00:00:00 [facility] (groups A, C, Y and Branc h W-135) conjugate vaccine (MCV4P) TDAP 2011-10-26 Completed [facility] 00:00:00 [facility] Varicella 2011-10-26 Completed [facility] (varivax)(chicken 00:00:00 [place] [facility] p[facility]) Branch HEPATITIS A 2011-10-26 Completed [facility] 00:00:00 [facility] HPV 2011-10-26 Completed [facility] 00:00:00 [facility] Meningococcal 2011-10-26 Completed [facility] Polysaccharide 00:00:00 [facility] (groups A, C, Y and Branc h W-135) conjugate vaccine (MCV4P) TDAP 2011-10-26 Completed [facility] 00:00:00 [facility] Varicella 2011-10-26 Completed [facility] (varivax)(chicken 00:00:00 [place] [facility]) Branch HEPATITIS A 2011-10-26 Completed [facility] 00:00:00 [facility] HPV 2011-10-26 Completed [facility] 00:00:00 [facility] Meningococcal 2011-10-26 Completed [facility] Polysaccharide 00:00:00 [facility] (groups A, C, Y and Branc h W-135) conjugate vaccine (MCV4P) TDAP 2011-10-26 Completed [facility] 00:00:00 [facility] Varicella 2011-10-26 Completed [facility] (varivax)(chicken 00:00:00 [place] [facility]) Branch HEPATITIS A 2011-10-26 Completed [facility] 00:00:00 [facility] HPV 2011-10-26 Completed [facility] 00:00:00 [facility] Meningococcal 2011-10-26 Completed [facility] Polysaccharide 00:00:00 [facility] (groups A, C, Y and Branc h W-135) conjugate vaccine (MCV4P) TDAP 2011-10-26 Completed [facility] 00:00:00 [facility] Varicella 2011-10-26 Completed [facility] (varivax)(chicken 00:00:00 [place] [facility]) Branch HEPATITIS A 2011-10-26 Completed [facility] 00:00:00 [facility] HPV 2011-10-26 Completed [facility] 00:00:00 [facility] Meningococcal 2011-10-26 Completed [facility] Polysaccharide 00:00:00 [facility] (groups A, C, Y and Branc h W-135) conjugate vaccine (MCV4P) TDAP 2011-10-26 Completed [facility] 00:00:00 [facility] Varicella 2011-10-26 Completed [facility] (varivax)(chicken 00:00:00 [place] [facility] p[facility]) Branch HEPATITIS A 2011-10-26 Completed [facility] 00:00:00 [facility] HPV 2011-10-26 Completed [facility] 00:00:00 [facility] Meningococcal 2011-10-26 Completed [facility] Polysaccharide 00:00:00 [facility] (groups A, C, Y and Branc h W-135) conjugate vaccine (MCV4P) TDAP 2011-10-26 Completed [facility] 00:00:00 [facility] Varicella 2011-10-26 Completed [facility] (varivax)(chicken 00:00:00 [place] [facility] HEPATITIS A 2011-10-26 Completed [facility] 00:00:00 [facility] HPV 2011-10-26 Completed [facility] 00:00:00 [facility] Meningococcal 2011-10-26 Completed [facility] Polysaccharide 00:00:00 [facility] (groups A, C, Y and Branc h W-135) conjugate vaccine (MCV4P) TDAP 2011-10-26 Completed [facility] 00:00:00 [facility] Varicella 2011-10-26 Completed [facility] (varivax)(chicken 00:00:00 [place] [facility] HEPATITIS A 2011-10-26 Completed [facility] 00:00:00 [facility] HPV 2011-10-26 Completed [facility] 00:00:00 [facility] Meningococcal 2011-10-26 Completed [facility] Polysaccharide 00:00:00 [facility] (groups A, C, Y and Branc h W-135) conjugate vaccine (MCV4P) TDAP 2011-10-26 Completed [facility] 00:00:00 [facility] Varicella 2011-10-26 Completed [facility] (varivax)(chicken 00:00:00 [place] [facility]) [facility] HEPATITIS A 2011-10-26 Completed [facility] 00:00:00 [facility] HPV 2011-10-26 Completed [facility] 00:00:00 [facility] Meningococcal 2011-10-26 Completed [facility] Polysaccharide 00:00:00 [facility] (groups A, C, Y and Branc h W-135) conjugate vaccine (MCV4P) TDAP 2011-10-26 Completed [facility] 00:00:00 [facility] Varicella 2011-10-26 Completed [facility] (varivax)(chicken 00:00:00 [place] [facility] HEPATITIS A 2011-10-26 Completed [facility] 00:00:00 [facility] HPV 2011-10-26 Completed [facility] 00:00:00 [facility] Meningococcal 2011-10-26 Completed [facility] Polysaccharide 00:00:00 [facility] (groups A, C, Y and Branc h W-135) conjugate vaccine (MCV4P) TDAP 2011-10-26 Completed [facility] 00:00:00 [facility] Varicella 2011-10-26 Completed [facility] (varivax)(chicken 00:00:00 [place] [facility] HEPATITIS A 2011-10-26 Completed [facility] 00:00:00 [facility] HPV 2011-10-26 Completed [facility] 00:00:00 [facility] Meningococcal 2011-10-26 Completed [facility] Polysaccharide 00:00:00 [facility] (groups A, C, Y and Branc h W-135) conjugate vaccine (MCV4P) TDAP 2011-10-26 Completed [facility] 00:00:00 [facility] Varicella 2011-10-26 Completed [facility] (varivax)(chicken 00:00:00 [place] [facility] HEPATITIS A 2011-10-26 Completed [facility] 00:00:00 [facility] HPV 2011-10-26 Completed [facility] 00:00:00 [facility] Meningococcal 2011-10-26 Completed [facility] Polysaccharide 00:00:00 [facility]enzie (groups A, C, Y and Branc h W-135) conjugate vaccine (MCV4P) TDAP 2011-10-26 Completed [facility] 00:00:00 [facility] Varicella 2011-10-26 Completed [facility] (varivax)(chicken 00:00:00 [place] [facility] HEPATITIS A 2011-10-26 Completed [facility] 00:00:00 [facility] HPV 2011-10-26 Completed [facility] 00:00:00 [facility] Meningococcal 2011-10-26 Completed [facility] Polysaccharide 00:00:00 [facility] (groups A, C, Y and Branc h W-135) conjugate vaccine (MCV4P) TDAP 2011-10-26 Completed [facility] 00:00:00 [facility] Varicella 2011-10-26 Completed [facility] (varivax)(chicken 00:00:00 [place] [facility] Branch HEPATITIS A 2011-10-26 Completed [facility] 00:00:00 [facility] HPV 2011-10-26 Completed [facility] 00:00:00 [facility] Meningococcal 2011-10-26 Completed [facility] Polysaccharide 00:00:00 [place] [facility] (groups A, C, Y and Branc h W-135) conjugate vaccine (MCV4P) TDAP 2011-10-26 Completed [facility] 00:00:00 [facility] Varicella 2011-10-26 Completed [facility] (varivax)(chicken 00:00:00 [place] [facility] HEPATITIS A 2011-10-26 Completed [facility] 00:00:00 [facility] HPV 2011-10-26 Completed [facility] 00:00:00 [facility] Meningococcal 2011-10-26 Completed [facility] Polysaccharide 00:00:00 [facility] (groups A, C, Y and Branc h W-135) conjugate vaccine (MCV4P) TDAP 2011-10-26 Completed [facility] 00:00:00 [facility] Varicella 2011-10-26 Completed [facility] (varivax)(chicken 00:00:00 [place] [facility] Branch HEPATITIS A 2011-10-26 Completed [facility] 00:00:00 [facility] HPV 2011-10-26 Completed [facility] 00:00:00 [facility] Meningococcal 2011-10-26 Completed [facility] Polysaccharide 00:00:00 [facility] (groups A, C, Y and Branc h W-135) conjugate vaccine (MCV4P) TDAP 2011-10-26 Completed [facility] 00:00:00 [facility] Varicella 2011-10-26 Completed [facility] (varivax)(chicken 00:00:00 [place] [facility] Branch HEPATITIS A 2011-10-26 Completed [facility] 00:00:00 [facility] HPV 2011-10-26 Completed [facility] 00:00:00 [facility] Meningococcal 2011-10-26 Completed [facility] Polysaccharide 00:00:00 [facility] (groups A, C, Y and Branc h W-135) conjugate vaccine (MCV4P) TDAP 2011-10-26 Completed [facility] 00:00:00 [facility] Varicella 2011-10-26 Completed [facility] (varivax)(chicken 00:00:00 [place] [facility] HEPATITIS A 2011-10-26 Completed [facility] 00:00:00 [facility] HPV 2011-10-26 Completed [facility] 00:00:00 [facility] Meningococcal 2011-10-26 Completed [facility] Polysaccharide 00:00:00 [facility] (groups A, C, Y and Branc h W-135) conjugate vaccine (MCV4P) TDAP 2011-10-26 Completed [facility] 00:00:00 [facility] Varicella 2011-10-26 Completed [facility] (varivax)(chicken 00:00:00 [place] [facility] Branch HEPATITIS A 2011-10-26 Completed [facility] 00:00:00 [facility] HPV 2011-10-26 Completed [facility] 00:00:00 [facility] Meningococcal 2011-10-26 Completed [facility] Polysaccharide 00:00:00 [place] [facility] (groups A, C, Y and Branc h W-135) conjugate vaccine (MCV4P) TDAP 2011-10-26 Completed [facility] 00:00:00 [facility] Varicella 2011-10-26 Completed [facility] (varivax)(chicken 00:00:00 [place] [facility] Branch HEPATITIS A 2011-10-26 Completed [facility] 00:00:00 [facility] HPV 2011-10-26 Completed [facility] 00:00:00 [facility] Meningococcal 2011-10-26 Completed [facility] Polysaccharide 00:00:00 [facility] (groups A, C, Y and Branc h W-135) conjugate vaccine (MCV4P) TDAP 2011-10-26 Completed [facility] 00:00:00 [facility] Varicella 2011-10-26 Completed [facility] (varivax)(chicken 00:00:00 [place] [facility] Branch HEPATITIS A 2011-10-26 Completed [facility] 00:00:00 [facility] HPV 2011-10-26 Completed [facility] 00:00:00 [facility] Meningococcal 2011-10-26 Completed [facility] Polysaccharide 00:00:00 [facility] (groups A, C, Y and Branc h W-135) conjugate vaccine (MCV4P) TDAP 2011-10-26 Completed [facility] 00:00:00 [facility] Varicella 2011-10-26 Completed [facility] (varivax)(chicken 00:00:00 [place] [facility] p[facility]) Branch HEPATITIS A 2011-10-26 Completed [facility] 00:00:00 [facility] HPV 2011-10-26 Completed [facility] 00:00:00 [facility] Meningococcal 2011-10-26 Completed [facility] Polysaccharide 00:00:00 [facility] (groups A, C, Y and Branc h W-135) conjugate vaccine (MCV4P) TDAP 2011-10-26 Completed [facility] 00:00:00 [facility] Varicella 2011-10-26 Completed [facility] (varivax)(chicken 00:00:00 [place] [facility] p[facility] Branch HEPATITIS A 2011-10-26 Completed [facility] 00:00:00 [facility] HPV 2011-10-26 Completed [facility] 00:00:00 [facility] Meningococcal 2011-10-26 Completed [facility] Polysaccharide 00:00:00 [place] [facility] (groups A, C, Y and Branc h W-135) conjugate vaccine (MCV4P) TDAP 2011-10-26 Completed [facility] 00:00:00 [facility] Varicella 2011-10-26 Completed [facility] (varivax)(chicken 00:00:00 [place] [facility] p[facility] Branch HEPATITIS A 2011-10-26 Completed [facility] 00:00:00 [facility] HPV 2011-10-26 Completed [facility] 00:00:00 [facility] Meningococcal 2011-10-26 Completed [facility] Polysaccharide 00:00:00 [place] [facility] (groups A, C, Y and Branc h W-135) conjugate vaccine (MCV4P) TDAP 2011-10-26 Completed [facility] 00:00:00 [facility] Varicella 2011-10-26 Completed [facility] (varivax)(chicken 00:00:00 [place] [facility] p[facility] Branch HEPATITIS A 2011-10-26 Completed [facility] 00:00:00 [facility] HPV 2011-10-26 Completed [facility] 00:00:00 [facility] Meningococcal 2011-10-26 Completed [facility] Polysaccharide 00:00:00 [place] [facility] (groups A, C, Y and Branc h W-135) conjugate vaccine (MCV4P) TDAP 2011-10-26 Completed [facility] 00:00:00 [facility] Varicella 2011-10-26 Completed [facility] (varivax)(chicken 00:00:00 [place] [facility] pox) Branch HEPATITIS A 2011-10-26 Completed [facility] 00:00:00 [facility] HPV 2011-10-26 Completed [facility] 00:00:00 [facility] Meningococcal 2011-10-26 Completed [facility] Polysaccharide 00:00:00 [place] [facility] (groups A, C, Y and Branc h W-135) conjugate vaccine (MCV4P) TDAP 2011-10-26 Completed [facility] 00:00:00 [facility] Varicella 2011-10-26 Completed [facility] (varivax)(chicken 00:00:00 [place] [facility] Branch HEPATITIS A 2011-10-26 Completed [facility] 00:00:00 [facility] HPV 2011-10-26 Completed [facility] 00:00:00 [facility] Meningococcal 2011-10-26 Completed [facility] Polysaccharide 00:00:00 [place] [facility] (groups A, C, Y and Branc h W-135) conjugate vaccine (MCV4P) TDAP 2011-10-26 Completed [facility] 00:00:00 [facility] Varicella 2011-10-26 Completed [facility] (varivax)(chicken 00:00:00 [place] [facility] Branch HEPATITIS A 2011-10-26 Completed [facility] 00:00:00 [facility] HPV 2011-10-26 Completed [facility] 00:00:00 [facility] Meningococcal 2011-10-26 Completed [facility] Polysaccharide 00:00:00 [place] [facility] (groups A, C, Y and Branc h W-135) conjugate vaccine (MCV4P) TDAP 2011-10-26 Completed [facility] 00:00:00 [facility] Varicella 2011-10-26 Completed [facility] (varivax)(chicken 00:00:00 [place] [facility] Branch HEPATITIS A 2011-10-26 Completed [facility] 00:00:00 [facility] HPV 2011-10-26 Completed [facility] 00:00:00 [facility] Meningococcal 2011-10-26 Completed [facility] Polysaccharide 00:00:00 [place] [facility] (groups A, C, Y and Branc h W-135) conjugate vaccine (MCV4P) TDAP 2011-10-26 Completed [facility] 00:00:00 [facility] Varicella 2011-10-26 Completed [facility] (varivax)(chicken 00:00:00 [place] [facility] Branch HEPATITIS A 2011-10-26 Completed [facility] 00:00:00 [facility] HPV 2011-10-26 Completed [facility] 00:00:00 [facility] Meningococcal 2011-10-26 Completed [facility] Polysaccharide 00:00:00 [place] [facility] (groups A, C, Y and Branc h W-135) conjugate vaccine (MCV4P) TDAP 2011-10-26 Completed [facility] 00:00:00 [facility] Varicella 2011-10-26 Completed [facility] (varivax)(chicken 00:00:00 [place] [facility] pox) Branch HEPATITIS A 2011-10-26 Completed [facility] 00:00:00 [facility] HPV 2011-10-26 Completed [facility] 00:00:00 [facility] Meningococcal 2011-10-26 Completed [facility] Polysaccharide 00:00:00 [place] [facility] (groups A, C, Y and Branc h W-135) conjugate vaccine (MCV4P) TDAP 2011-10-26 Completed [facility] 00:00:00 [facility] Varicella 2011-10-26 Completed [facility] (varivax)(chicken 00:00:00 [place] [facility] pox) Branch HEPATITIS A 2011-10-26 Completed [facility] 00:00:00 [facility] HPV 2011-10-26 Completed [facility] 00:00:00 [facility] Meningococcal 2011-10-26 Completed [facility] Polysaccharide 00:00:00 [place] [facility] (groups A, C, Y and Branc h W-135) conjugate vaccine (MCV4P) TDAP 2011-10-26 Completed [facility] 00:00:00 [facility] Varicella 2011-10-26 Completed [facility] (varivax)(chicken 00:00:00 [place] [facility] pox) Branch HEPATITIS A 2011-10-26 Completed [facility] 00:00:00 [facility] HPV 2011-10-26 Completed [facility] 00:00:00 [facility] Meningococcal 2011-10-26 Completed [facility] Polysaccharide 00:00:00 [place] [facility] (groups A, C, Y and Branc h W-135) conjugate vaccine (MCV4P) TDAP 2011-10-26 Completed [facility] 00:00:00 [facility] Varicella 2011-10-26 Completed [facility] (varivax)(chicken 00:00:00 [place] [facility] pox) Branch HEPATITIS A 2011-10-26 Completed [facility] 00:00:00 [facility] HPV 2011-10-26 Completed [facility] 00:00:00 [facility] Meningococcal 2011-10-26 Completed [facility] Polysaccharide 00:00:00 [place] [facility] (groups A, C, Y and Branc h W-135) conjugate vaccine (MCV4P) TDAP 2011-10-26 Completed [facility] 00:00:00 [facility] Varicella 2011-10-26 Completed [facility] (varivax)(chicken 00:00:00 [place] [facility] pox) Branch HEPATITIS A 2011-10-26 Completed [facility] 00:00:00 [facility] HPV 2011-10-26 Completed [facility] 00:00:00 [facility] Meningococcal 2011-10-26 Completed [facility] Polysaccharide 00:00:00 [place] [facility] (groups A, C, Y and Branc h W-135) conjugate vaccine (MCV4P) TDAP 2011-10-26 Completed [facility] 00:00:00 [facility] Varicella 2011-10-26 Completed [facility] (varivax)(chicken 00:00:00 [place] [facility] pox) Branch HEPATITIS A 2011-10-26 Completed [facility] 00:00:00 [facility] HPV 2011-10-26 Completed [facility] 00:00:00 [facility] Meningococcal 2011-10-26 Completed [facility] Polysaccharide 00:00:00 [place] [facility] (groups A, C, Y and Branc h W-135) conjugate vaccine (MCV4P) TDAP 2011-10-26 Completed [facility] 00:00:00 [facility] Varicella 2011-10-26 Completed [facility] (varivax)(chicken 00:00:00 [place] [facility]) Branch HEPATITIS A 2011-10-26 Completed [facility] 00:00:00 [facility] HPV 2011-10-26 Completed [facility] 00:00:00 [facility] Meningococcal 2011-10-26 Completed [facility] Polysaccharide 00:00:00 [place] [facility] (groups A, C, Y and Branc h W-135) conjugate vaccine (MCV4P) TDAP 2011-10-26 Completed [facility] 00:00:00 [facility] Varicella 2011-10-26 Completed [facility] (varivax)(chicken 00:00:00 [place] [facility] pox) Branch HEPATITIS A 2011-10-26 Completed [facility] 00:00:00 [facility] HPV 2011-10-26 Completed [facility] 00:00:00 [facility] Meningococcal 2011-10-26 Completed [facility] Polysaccharide 00:00:00 [place] [facility] (groups A, C, Y and Branc h W-135) conjugate vaccine (MCV4P) TDAP 2011-10-26 Completed [facility] 00:00:00 [facility] Varicella 2011-10-26 Completed [facility] (varivax)(chicken 00:00:00 [place] [facility] HEPATITIS A 2011-10-26 Completed [facility] 00:00:00 [facility] HPV 2011-10-26 Completed [facility] 00[facility]00 [facility] [facility] 2011-10-26 Com[facility] Polysaccharide 00:00:00 [facility] (groups A, C, Y and Branc h W-135) conjugate vaccine (MCV4P) TDAP 2011-10-26 Completed [facility] 00:00:00 [facility] Varicella 2011-10-26 Completed [facility] (varivax)(chicken 00:00:00 [place] [facility] pox) [facility] HEPATITIS A 2011-10-26 Completed [facility] 00:00:00 [facility] HPV 2011-10-26 Completed [facility] 00:00:00 [facility] Meningococcal 2011-10-26 Completed [facility] Polysaccharide 00:00:00 [facility] (groups A, C, Y and Branc h W-135) conjugate vaccine (MCV4P) TDAP 2011-10-26 Completed [facility] 00:00:00 [facility] Varicella 2011-10-26 Completed [facility] (varivax)(chicken 00:00:00 [place] [facility] pox[facility] HEPATITIS A 2011-10-26 Completed [facility] 00:00:00 [facility] HPV 2011-10-26 Completed [facility] 00:00:00 [facility] Meningococcal 2011-10-26 Completed [facility] Polysaccharide 00:00:00 [facility] (groups A, C, Y and Branc h W-135) conjugate vaccine (MCV4P) TDAP 2011-10-26 Completed [facility] 00:00:00 [facility] Varicella 2011-10-26 Completed [facility] (varivax)(chicken 00:00:00 [place] [facility] HEPATITIS A 2011-10-26 Completed [facility] 00:00:00 [facility] HPV 2011-10-26 Completed [facility] 00:00:00 [facility] Meningococcal 2011-10-26 Completed [facility] Polysaccharide 00:00:00 [facility] (groups A, C, Y and Branc h W-135) conjugate vaccine (MCV4P) TDAP 2011-10-26 Completed [facility] 00:00:00 [facility] Varicella 2011-10-26 Completed [facility] (varivax)(chicken 00:00:00 [place] [facility] pox[facility] HEPATITIS A 2011-10-26 Completed [facility] 00:00:00 [facility] HPV 2011-10-26 Completed [facility] 00:00:00 [facility] Meningococcal 2011-10-26 Completed [facility] Polysaccharide 00:00:00 [facility] (groups A, C, Y and Branc h W-135) conjugate vaccine (MCV4P) TDAP 2011-10-26 Completed [facility] 00:00:00 [facility] Varicella 2011-10-26 Completed [facility] (varivax)(chicken 00:00:00 [place] [facility] pox[facility] HEPATITIS A 2011-10-26 Completed [facility] 00:00:00 [facility] HPV 2011-10-26 Completed [facility] 00:00:00 [facility] Meningococcal 2011-10-26 Completed [facility] Polysaccharide 00:00:00 [facility] (groups A, C, Y and Branc h W-135) conjugate vaccine (MCV4P) TDAP 2011-10-26 Completed [facility] 00:00:00 [facility] Varicella 2011-10-26 Completed [facility] (varivax)(chicken 00:00:00 [place] [facility] pox[facility] HEPATITIS A 2011-10-26 Completed [facility] 00:00:00 [facility] HPV 2011-10-26 Completed [facility] 00:00:00 [facility] Meningococcal 2011-10-26 Completed [facility] Polysaccharide 00:00:00 [facility] (groups A, C, Y and Branc h W-135) conjugate vaccine (MCV4P) TDAP 2011-10-26 Completed [facility] 00:00:00 [facility] Varicella 2011-10-26 Completed [facility] (varivax)(chicken 00:00:00 [place] [facility] pox[facility] HEPATITIS A 2011-10-26 Completed [facility] 00:00:00 [facility] HPV 2011-10-26 Completed [facility] 00:00:00 [facility] Meningococcal 2011-10-26 Completed [facility] Polysaccharide 00:00:00 [place] [facility] (groups A, C, Y and Branc h W-135) conjugate vaccine (MCV4P) TDAP 2011-10-26 Completed [facility] 00:00:00 [facility] Varicella 2011-10-26 Completed [facility] (varivax)(chicken 00:00:00 [place] [facility] pox[facility] HEPATITIS A 2011-10-26 Completed [facility] 00:00:00 [facility] HPV 2011-10-26 Completed [facility] 00:00:00 [facility] Meningococcal 2011-10-26 Completed [facility] Polysaccharide 00:00:00 [place] [facility] (groups A, C, Y and Branc h W-135) conjugate vaccine (MCV4P) TDAP 2011-10-26 Completed [facility] 00:00:00 [facility] Varicella 2011-10-26 Completed [facility] (varivax)(chicken 00:00:00 [place] [facility] pox[facility] HEPATITIS A 2011-10-26 Completed [facility] 00:00:00 [facility] HPV 2011-10-26 Completed [facility] 00:00:00 [facility] Meningococcal 2011-10-26 Completed [facility] Polysaccharide 00:00:00 [place] [facility] (groups A, C, Y and Branc h W-135) conjugate vaccine (MCV4P) TDAP 2011-10-26 Completed [facility] 00:00:00 [facility] Varicella 2011-10-26 Completed [facility] (varivax)(chicken 00:00:00 [place] [facility] pox) [facility] HEPATITIS A 2011-10-26 Completed [facility] 00:00:00 [facility] HPV 2011-10-26 Completed [facility] 00:00:00 [facility] Meningococcal 2011-10-26 Completed [facility] Polysaccharide 00:00:00 [facility] (groups A, C, Y and Branc h W-135) conjugate vaccine (MCV4P) TDAP 2011-10-26 Completed [facility] 00:00:00 [facility] Varicella 2011-10-26 Completed [facility] (varivax)(chicken 00:00:00 [place] [facility] pox[facility] HEPATITIS A 2011-10-26 Completed [facility] 00:00:00 [facility] HPV 2011-10-26 Completed [facility] 00:00:00 [facility] Meningococcal 2011-10-26 Completed [facility] Polysaccharide 00:00:00 [place] [facility] (groups A, C, Y and Branc h W-135) conjugate vaccine (MCV4P) TDAP 2011-10-26 Completed [facility] 00:00:00 [facility] Varicella 2011-10-26 Completed [facility] (varivax)(chicken 00:00:00 [place] [facility] pox[facility] HEPATITIS A 2011-10-26 Completed [facility] 00:00:00 [facility] HPV 2011-10-26 Completed [facility] 00:00:00 [facility] Meningococcal 2011-10-26 Completed [facility] Polysaccharide 00:00:00 [place] [facility] (groups A, C, Y and Branc h W-135) conjugate vaccine (MCV4P) TDAP 2011-10-26 Completed [facility] 00:00:00 [facility] Varicella 2011-10-26 Completed [facility] (varivax)(chicken 00:00:00 [place] [facility] pox[facility] HEPATITIS A 2011-10-26 Completed [facility] 00:00:00 [facility] HPV 2011-10-26 Completed [facility] 00:00:00 [facility] Meningococcal 2011-10-26 Completed [facility] Polysaccharide 00:00:00 [place] [facility] (groups A, C, Y and Branc h W-135) conjugate vaccine (MCV4P) TDAP 2011-10-26 Completed [facility] 00:00:00 [facility] Varicella 2011-10-26 Completed [facility] (varivax)(chicken 00:00:00 [place] [facility] pox[facility] HEPATITIS A 2011-10-26 Completed [facility] 00:00:00 [facility] HPV 2011-10-26 Completed [facility] 00:00:00 [facility] Meningococcal 2011-10-26 Completed [facility] Polysaccharide 00:00:00 [place] [facility] (groups A, C, Y and Branc h W-135) conjugate vaccine (MCV4P) TDAP 2011-10-26 Completed [facility] 00:00:00 [facility] Varicella 2011-10-26 Completed [facility] (varivax)(chicken 00:00:00 [place] [facility] pox[facility] HEPATITIS A 2011-10-26 Completed [facility] 00:00:00 [facility] HPV 2011-10-26 Completed [facility] 00:00:00 [facility] Meningococcal 2011-10-26 Completed [facility] Polysaccharide 00:00:00 [place] [facility] (groups A, C, Y and Branc h W-135) conjugate vaccine (MCV4P) TDAP 2011-10-26 Completed [facility] 00:00:00 [facility] Varicella 2011-10-26 Completed [facility] (varivax)(chicken 00:00:00 [place] [facility] pox[facility] HEPATITIS A 2011-10-26 Completed [facility] 00:00:00 [facility] HPV 2011-10-26 Completed [facility] 00:00:00 [facility] Meningococcal 2011-10-26 Completed [facility] Polysaccharide 00:00:00 [place] [facility] (groups A, C, Y and Branc h W-135) conjugate vaccine (MCV4P) TDAP 2011-10-26 Completed [facility] 00:00:00 [facility] Varicella 2011-10-26 Completed [facility] (varivax)(chicken 00:00:00 [place] [facility] pox[facility] HEPATITIS A 2011-10-26 Completed [facility] 00:00:00 [facility] HPV 2011-10-26 Completed [facility] 00:00:00 [facility] Meningococcal 2011-10-26 Completed [facility] Polysaccharide 00:00:00 [facility] (groups A, C, Y and Branc h W-135) conjugate vaccine (MCV4P) TDAP 2011-10-26 Completed [facility] 00:00:00 [facility] Varicella 2011-10-26 Completed [facility] (varivax)(chicken 00:00:00 [facility] edical pox) Branch HEPATITIS A 2011-10-26 Completed [facility] 00:00:00 [facility] HPV 2011-10-26 Completed [facility] 00:00:00 [facility] Meningococcal 2011-10-26 Completed [facility] Polysaccharide 00:00:00 [facility] (groups A, C, Y and Branc h W-135) conjugate vaccine (MCV4P) TDAP 2011-10-26 Completed [facility] 00:00:00 [facility] Varicella 2011-10-26 Completed [facility] (varivax)(chicken 00:00:00 [place] [facility] H1n1 Vaccine 2009-05-28 Completed [facility] f 00:00:00 [facility] H1n1 Vaccine 2009-05-28 Completed [facility] o f 00:00:00 [facility] H1n1 Vaccine 2009-05-28 Completed [facility] f 00:00:00 [facility] H1n1 Vaccine 2009-05-28 Completed [facility] f 00:00:00 [facility] H1n1 Vaccine 2009-05-28 Completed [facility] f 00:00:00 [facility] H1n1 Vaccine 2009-05-28 Completed [facility] f 00:00:00 [facility] H1n1 Vaccine 2009-05-28 Completed [facility] o f 00:00:00 [facility] H1n1 Vaccine 2009-05-28 Completed [facility] f 00:00:00 [facility] H1n1 Vaccine 2009-05-28 Completed [facility] f 00:00:00 [facility] H1n1 Vaccine 2009-05-28 Completed [facility] o f 00:00:00 [facility] H1n1 Vaccine 2009-05-28 Completed [facility] o f 00:00:00 [facility] H1n1 Vaccine 2009-05-28 Completed [facility] o f 00:00:00 [facility] H1n1 Vaccine 2009-05-28 Completed [facility] o f 00:00:00 [facility] H1n1 Vaccine 2009-05-28 Completed [facility] f 00:00:00 [facility] H1n1 Vaccine 2009-05-28 Completed [facility] o f 00:00:00 [facility] H1n1 Vaccine 2009-05-28 Completed [facility] f 00:00:00 [facility] H1n1 Vaccine 2009-05-28 Completed [facility] f 00:00:00 [facility] H1n1 Vaccine 2009-05-28 Completed [facility] o f 00:00:00 [facility] H1n1 Vaccine 2009-05-28 Completed [facility] o f 00:00:00 [facility] H1n1 Vaccine 2009-05-28 Completed [facility] o f 00:00:00 [facility] H1n1 Vaccine 2009-05-28 Completed [facility] o f 00:00:00 [facility] H1n1 Vaccine 2009-05-28 Completed [facility] o f 00:00:00 [facility] H1n1 Vaccine 2009-05-28 Completed [facility] f 00:00:00 [facility] H1n1 Vaccine 2009-05-28 Completed [facility] o f 00:00:00 [facility] H1n1 Vaccine 2009-05-28 Completed [facility] o f 00:00:00 [facility] H1n1 Vaccine 2009-05-28 Completed [facility] f 00:00:00 [facility] H1n1 Vaccine 2009-05-28 Completed [facility] f 00:00:00 [facility] H1n1 Vaccine 2009-05-28 Completed [facility] f 00:00:00 [facility] H1n1 Vaccine 2009-05-28 Completed [facility] o f 00:00:00 [facility] H1n1 Vaccine 2009-05-28 Completed [facility] f 00:00:00 [facility] H1n1 Vaccine 2009-05-28 Completed [facility] f 00:00:00 [facility] H1n1 Vaccine 2009-05-28 Completed [facility] o f 00:00:00 [facility] H1n1 Vaccine 2009-05-28 Completed [facility] o f 00:00:00 [facility] H1n1 Vaccine 2009-05-28 Completed [facility] f 00:00:00 [facility] H1n1 Vaccine 2009-05-28 Completed [facility] f 00:00:00 [facility] H1n1 Vaccine 2009-05-28 Completed [facility] f 00:00:00 [facility] H1n1 Vaccine 2009-05-28 Completed [facility] f 00:00:00 [facility] H1n1 Vaccine 2009-05-28 Completed [facility] f 00:00:00 [facility] H1n1 Vaccine 2009-05-28 Completed [facility] f 00:00:00 [facility] H1n1 Vaccine 2009-05-28 Completed [facility] o f 00:00:00 [facility] H1n1 Vaccine 2009-05-28 Completed [facility] o f 00:00:00 [facility] H1n1 Vaccine 2009-05-28 Completed [facility] f 00:00:00 [facility] H1n1 Vaccine 2009-05-28 Completed [facility] f 00:00:00 [facility] H1n1 Vaccine 2009-05-28 Completed [facility] f 00:00:00 [facility] H1n1 Vaccine 2009-05-28 Completed [facility] f 00:00:00 [facility] H1n1 Vaccine 2009-05-28 Completed [facility] 00:00:00 [facility] H1n1 Vaccine 2009-05-28 Completed [facility] f 00:00:00 [facility] H1n1 Vaccine 2009-05-28 Completed [facility] f 00:00:00 [facility] H1n1 Vaccine 2009-05-28 Completed [facility] f 00:00:00 [facility] H1n1 Vaccine 2009-05-28 Completed [facility] f 00:00:00 [facility] H1n1 Vaccine 2009-05-28 Completed [facility] f 00:00:00 [facility] H1n1 Vaccine 2009-05-28 Completed [facility] f 00:00:00 [facility] H1n1 Vaccine 2009-05-28 Completed [facility] f 00:00:00 [facility] H1n1 Vaccine 2009-05-28 Completed [facility] f 00:00:00 [facility] H1n1 Vaccine 2009-05-28 Completed [facility] f 00:00:00 [facility] H1n1 Vaccine 2009-05-28 Completed [facility] f 00:00:00 [facility] H1n1 Vaccine 2009-05-28 Completed [facility] f 00:00:00 [facility] H1n1 Vaccine 2009-05-28 Completed [facility] f 00:00:00 [facility] H1n1 Vaccine 2009-05-28 Completed [facility] 00:00:00 [facility] H1n1 Vaccine 2009-05-28 Completed [facility] f 00:00:00 [facility] H1n1 Vaccine 2009-05-28 Completed [facility] f 00:00:00 [facility] H1n1 Vaccine 2009-05-28 Completed [facility] f 00:00:00 [facility] H1n1 Vaccine 2009-05-28 Completed [facility] f 00:00:00 [facility] H1n1 Vaccine 2009-05-28 Completed [facility] f 00:00:00 [facility] H1n1 Vaccine 2009-05-28 Completed [facility] f 00:00:00 [facility] H1n1 Vaccine 2009-05-28 Completed [facility] f 00:00:00 [facility] H1n1 Vaccine 2009-05-28 Completed [facility] f 00:00:00 [facility] H1n1 Vaccine 2009-05-28 Completed [facility] f 00:00:00 [facility] H1n1 Vaccine 2009-05-28 Completed [facility] f 00:00:00 [facility] H1n1 Vaccine 2009-05-28 Completed [facility] f 00:00:00 [facility] Influenza Virus 2009-01-22 Completed Universit y of Vaccine - Whole 00:00:00 [facility] Influenza Virus 2009-01-22 Completed Universit y of Vaccine - Whole 00:00:00 [facility] Influenza Virus 2009-01-22 Completed [facility] y of Vaccine - Whole 00:00:00 [facility] Influenza Virus 2009-01-22 Completed [facility] y of Vaccine - Whole 00:00:00 [facility] Influenza Virus 2009-01-22 Completed [facility] y of Vaccine - Whole 00:00:00 [facility] Influenza Virus 2009-01-22 Completed [facility] y of Vaccine - Whole 00:00:00 [facility] Influenza Virus 2009-01-22 Completed [facility] y of Vaccine - Whole 00:00:00 [facility] Influenza Virus 2009-01-22 Completed [facility] y of Vaccine - Whole 00:00:00 [facility] Influenza Virus 2009-01-22 Completed [facility] y of Vaccine - Whole 00:00:00 [facility] Influenza Virus 2009-01-22 Completed [facility] y of Vaccine - Whole 00:00:00 [facility] Influenza Virus 2009-01-22 Completed [facility] y of Vaccine - Whole 00:00:00 [facility] Influenza Virus 2009-01-22 Completed [facility] y of Vaccine - Whole 00:00:00 [facility] Influenza Virus 2009-01-22 Completed [facility] y of Vaccine - Whole 00:00:00 [facility] Influenza Virus 2009-01-22 Completed [facility] y of Vaccine - Whole 00:00:00 [facility] Influenza Virus 2009-01-22 Completed [facility] y of Vaccine - Whole 00:00:00 [facility] Influenza Virus 2009-01-22 Completed [facility] y of Vaccine - Whole 00:00:00 [facility] Influenza Virus 2009-01-22 Completed [facility] y of Vaccine - Whole 00:00:00 [facility] Influenza Virus 2009-01-22 Completed [facility] y of Vaccine - Whole 00:00:00 [facility] Influenza Virus 2009-01-22 Completed [facility] y of Vaccine - Whole 00:00:00 [facility] Influenza Virus 2009-01-22 Completed [facility] y of Vaccine - Whole 00:00:00 [facility] Influenza Virus 2009-01-22 Completed [facility] y of Vaccine - Whole 00:00:00 [facility] Influenza Virus 2009-01-22 Completed [facility] y of Vaccine - Whole 00:00:00 [facility] Influenza Virus 2009-01-22 Completed [facility] y of Vaccine - Whole 00:00:00 [facility] Influenza Virus 2009-01-22 Completed [facility] y of Vaccine - Whole 00:00:00 [facility] Influenza Virus 2009-01-22 Completed [facility] y of Vaccine - Whole 00:00:00 [facility] Influenza Virus 2009-01-22 Completed [facility] y of Vaccine - Whole 00:00:00 [facility] Influenza Virus 2009-01-22 Completed [facility] y of Vaccine - Whole 00:00:00 [facility] Influenza Virus 2009-01-22 Completed [facility] y of Vaccine - Whole 00:00:00 [facility] Influenza Virus 2009-01-22 Completed [facility] y of Vaccine - Whole 00:00:00 [facility] Influenza Virus 2009-01-22 Completed [facility] y of Vaccine - Whole 00:00:00 [facility] Influenza Virus 2009-01-22 Completed [facility] y of Vaccine - Whole 00:00:00 [facility] Influenza Virus 2009-01-22 Completed [facility] y of Vaccine - Whole 00:00:00 [facility] Influenza Virus 2009-01-22 Completed [facility] y of Vaccine - Whole 00:00:00 [facility] Influenza Virus 2009-01-22 Completed [facility] y of Vaccine - Whole 00:00:00 [facility] Influenza Virus 2009-01-22 Completed [facility] y of Vaccine - Whole 00:00:00 [facility] Influenza Virus 2009-01-22 Completed [facility] y of Vaccine - Whole 00:00:00 [facility] Influenza Virus 2009-01-22 Completed [facility] y of Vaccine - Whole 00:00:00 [facility] Influenza Virus 2009-01-22 Completed [facility] y of Vaccine - Whole 00:00:00 [facility] Influenza Virus 2009-01-22 Completed [facility] y of Vaccine - Whole 00:00:00 [facility] Influenza Virus 2009-01-22 Completed [facility] y of Vaccine - Whole 00:00:00 [facility] Influenza Virus 2009-01-22 Completed [facility] y of Vaccine - Whole 00:00:00 [facility] Influenza Virus 2009-01-22 Completed [facility] y of Vaccine - Whole 00:00:00 [facility] Influenza Virus 2009-01-22 Completed [facility] y of Vaccine - Whole 00:00:00 [facility] Influenza Virus 2009-01-22 Completed [facility] y of Vaccine - Whole 00:00:00 [facility] Influenza Virus 2009-01-22 Completed [facility] y of Vaccine - Whole 00:00:00 [facility] Influenza Virus 2009-01-22 Completed [facility] y of Vaccine - Whole 00:00:00 [facility] Influenza Virus 2009-01-22 Completed [facility] y of Vaccine - Whole 00:00:00 [facility] Influenza Virus 2009-01-22 Completed [facility] y of Vaccine - Whole 00:00:00 [facility] Influenza Virus 2009-01-22 Completed [facility] y of Vaccine - Whole 00:00:00 [facility] Influenza Virus 2009-01-22 Completed [facility] y of Vaccine - Whole 00:00:00 [facility] Influenza Virus 2009-01-22 Completed [facility] y of Vaccine - Whole 00:00:00 [facility] Influenza Virus 2009-01-22 Completed [facility] y of Vaccine - Whole 00:00:00 [facility] Influenza Virus 2009-01-22 Completed [facility] y of Vaccine - Whole 00:00:00 [facility] Influenza Virus 2009-01-22 Completed [facility] y of Vaccine - Whole 00:00:00 [facility] Influenza Virus 2009-01-22 Completed [facility] y of Vaccine - Whole 00:00:00 [facility] Influenza Virus 2009-01-22 Completed [facility] y of Vaccine - Whole 00:00:00 [facility] Influenza Virus 2009-01-22 Completed [facility] y of Vaccine - Whole 00:00:00 [facility] Influenza Virus 2009-01-22 Completed [facility] y of Vaccine - Whole 00:00:00 [facility] Influenza Virus 2009-01-22 Completed [facility] y of Vaccine - Whole 00:00:00 [facility] Influenza Virus 2009-01-22 Completed [facility] y of Vaccine - Whole 00:00:00 [facility] Influenza Virus 2009-01-22 Completed [facility] y of Vaccine - Whole 00:00:00 [facility] Influenza Virus 2009-01-22 Completed [facility] y of Vaccine - Whole 00:00:00 [facility] Influenza Virus 2009-01-22 Completed [facility] y of Vaccine - Whole 00:00:00 [facility] Influenza Virus 2009-01-22 Completed [facility] - [facility] 00:00:00 [facility] Influenza Virus 2009-01-22 Completed [facility] Vaccine - Whole 00:00:00 [facility] Influenza Virus 2009-01-22 Completed [facility] Vaccine - Whole 00:00:00 [facility] Influenza Virus 2009-01-22 Completed [facility] Vaccine - Whole 00:00:00 [facility] Influenza Virus 2009-01-22 Completed [facility] Vaccine - Whole 00:00:00 [facility] Influenza Virus 2009-01-22 Completed [facility] Vaccine - Whole 00:00:00 [facility] Influenza Virus 2009-01-22 Completed [facility] Vaccine - Whole 00:00:00 [facility] DTaP, Unspecified 2003-06-24 Completed [facility] Formulation 00:00:00 [facility] MMR 2003-06-24 Completed [facility] 00:00:00 [facility] IPV 2003-06-24 Completed [facility] 00:00:00 [facility] DTaP, Unspecified 2003-06-24 Completed [facility] Formulation 00:00:00 [facility] MMR 2003-06-24 Completed [facility] 00:00:00 [facility] IPV 2003-06-24 Completed [facility] 00:00:00 [facility] DTaP, Unspecified 2003-06-24 Completed [facility] Formulation 00:00:00 [facility] MMR 2003-06-24 Completed [facility] 00:00:00 [facility] IPV 2003-06-24 Completed [facility] 00:00:00 [facility] DTaP, Unspecified 2003-06-24 Completed [facility] Formulation 00:00:00 [facility] MMR 2003-06-24 Completed [facility] 00:00:00 [facility] IPV 2003-06-24 Completed [facility] 00:00:00 [facility] DTaP, Unspecified 2003-06-24 Completed [facility] Formulation 00:00:00 [facility] MMR 2003-06-24 Completed [facility] 00:00:00 [facility] IPV 2003-06-24 Completed [facility] 00:00:00 [facility] DTaP, Unspecified 2003-06-24 Completed [facility] Formulation 00:00:00 [facility] MMR 2003-06-24 Completed [facility] 00:00:00 [facility] IPV 2003-06-24 Completed [facility] 00:00:00 [facility] DTaP, Unspecified 2003-06-24 Completed [facility] Formulation 00:00:00 [facility] MMR 2003-06-24 Completed [facility] 00:00:00 [facility] IPV 2003-06-24 Completed [facility] 00:00:00 [facility] DTaP, Unspecified 2003-06-24 Completed [facility] Formulation 00:00:00 [facility] MMR 2003-06-24 Completed [facility] 00:00:00 [facility] IPV 2003-06-24 Completed [facility] 00:00:00 [facility] DTaP, Unspecified 2003-06-24 Completed [facility] Formulation 00:00:00 [facility] MMR 2003-06-24 Completed [facility] 00:00:00 [facility] IPV 2003-06-24 Completed [facility] 00:00:00 [facility] DTaP, Unspecified 2003-06-24 Completed [facility] Formulation 00:00:00 [facility] MMR 2003-06-24 Completed [facility] 00:00:00 [facility] IPV 2003-06-24 Completed [facility] 00:00:00 [facility] DTaP, Unspecified 2003-06-24 Completed [facility] Formulation 00:00:00 [facility] MMR 2003-06-24 Completed [facility] 00:00:00 [facility] IPV 2003-06-24 Completed [facility] 00:00:00 [facility] DTaP, Unspecified 2003-06-24 Completed [facility] Formulation 00:00:00 [facility] MMR 2003-06-24 Completed [facility] 00:00:00 [facility] IPV 2003-06-24 Completed [facility] 00:00:00 [facility] DTaP, Unspecified 2003-06-24 Completed [facility] Formulation 00:00:00 [facility] MMR 2003-06-24 Completed [facility] 00:00:00 [facility] IPV 2003-06-24 Completed [facility] 00:00:00 [facility] DTaP, Unspecified 2003-06-24 Completed [facility] Formulation 00:00:00 [facility] MMR 2003-06-24 Completed [facility] 00:00:00 [facility] IPV 2003-06-24 Completed [facility] 00:00:00 [facility] DTaP, Unspecified 2003-06-24 Completed [facility] Formulation 00:00:00 [facility] MMR 2003-06-24 Completed [facility] 00:00:00 [facility] IPV 2003-06-24 Completed [facility] 00:00:00 [facility] DTaP, Unspecified 2003-06-24 Completed [facility] Formulation 00:00:00 [facility] MMR 2003-06-24 Completed [facility] 00:00:00 [facility] IPV 2003-06-24 Completed [facility] 00:00:00 [facility] DTaP, Unspecified 2003-06-24 Completed [facility] Formulation 00:00:00 [facility] MMR 2003-06-24 Completed [facility] 00:00:00 [facility] IPV 2003-06-24 Completed [facility] 00:00:00 [facility] DTaP, Unspecified 2003-06-24 Completed [facility] Formulation 00:00:00 [facility] MMR 2003-06-24 Completed [facility] 00:00:00 [facility] IPV 2003-06-24 Completed [facility] 00:00:00 [facility] DTaP, Unspecified 2003-06-24 Completed [facility] Formulation 00:00:00 [facility] MMR 2003-06-24 Completed [facility] 00:00:00 [facility] IPV 2003-06-24 Completed [facility] 00:00:00 [facility] DTaP, Unspecified 2003-06-24 Completed [facility] Formulation 00:00:00 [facility] MMR 2003-06-24 Completed [facility] 00:00:00 [facility] IPV 2003-06-24 Completed [facility] 00:00:00 [facility] DTaP, Unspecified 2003-06-24 Completed [facility] Formulation 00:00:00 [facility] MMR 2003-06-24 Completed [facility] 00:00:00 [facility] IPV 2003-06-24 Completed [facility] 00:00:00 [facility] DTaP, Unspecified 2003-06-24 Completed [facility] Formulation 00:00:00 [facility] MMR 2003-06-24 Completed [facility] 00:00:00 [facility] IPV 2003-06-24 Completed [facility] 00:00:00 [facility] DTaP, Unspecified 2003-06-24 Completed [facility] Formulation 00:00:00 [facility] MMR 2003-06-24 Completed [facility] 00:00:00 [facility] IPV 2003-06-24 Completed [facility] 00:00:00 [facility] DTaP, Unspecified 2003-06-24 Completed [facility] Formulation 00:00:00 [facility] MMR 2003-06-24 Completed [facility] 00:00:00 [facility] IPV 2003-06-24 Completed [facility] 00:00:00 [facility] DTaP, Unspecified 2003-06-24 Completed [facility] Formulation 00:00:00 [facility] MMR 2003-06-24 Completed [facility] 00:00:00 [facility] IPV 2003-06-24 Completed [facility] 00:00:00 [facility] DTaP, Unspecified 2003-06-24 Completed [facility] Formulation 00:00:00 [facility] MMR 2003-06-24 Completed [facility] 00:00:00 [facility] IPV 2003-06-24 Completed [facility] 00:00:00 [facility] DTaP, Unspecified 2003-06-24 Completed [facility] Formulation 00:00:00 [facility] MMR 2003-06-24 Completed [facility] 00:00:00 [facility] IPV 2003-06-24 Completed [facility] 00:00:00 [facility] DTaP, Unspecified 2003-06-24 Completed [facility] Formulation 00:00:00 [facility] MMR 2003-06-24 Completed [facility] 00:00:00 [facility] IPV 2003-06-24 Completed [facility] 00:00:00 [facility] DTaP, Unspecified 2003-06-24 Completed [facility] Formulation 00:00:00 [facility] MMR 2003-06-24 Completed [facility] 00:00:00 [facility] IPV 2003-06-24 Completed [facility] 00:00:00 [facility] DTaP, Unspecified 2003-06-24 Completed [facility] Formulation 00:00:00 [facility] MMR 2003-06-24 Completed [facility] 00:00:00 [facility] IPV 2003-06-24 Completed [facility] 00:00:00 [facility] DTaP, Unspecified 2003-06-24 Completed [facility] Formulation 00:00:00 [facility] MMR 2003-06-24 Completed [facility] 00:00:00 [facility] IPV 2003-06-24 Completed [facility] 00:00:00 [facility] DTaP, Unspecified 2003-06-24 Completed [facility] Formulation 00:00:00 [facility] MMR 2003-06-24 Completed [facility] 00:00:00 [facility] IPV 2003-06-24 Completed [facility] 00:00:00 [facility] DTaP, Unspecified 2003-06-24 Completed [facility] Formulation 00:00:00 [facility] MMR 2003-06-24 Completed [facility] 00:00:00 [facility] IPV 2003-06-24 Completed [facility] 00:00:00 [facility] DTaP, Unspecified 2003-06-24 Completed [facility] Formulation 00:00:00 [facility] MMR 2003-06-24 Completed [facility] 00:00:00 [facility] IPV 2003-06-24 Completed [facility] 00:00:00 [facility] DTaP, Unspecified 2003-06-24 Completed [facility] Formulation 00:00:00 [facility] MMR 2003-06-24 Completed [facility] 00:00:00 [facility] IPV 2003-06-24 Completed [facility] 00:00:00 [facility] DTaP, Unspecified 2003-06-24 Completed [facility] Formulation 00:00:00 [facility] MMR 2003-06-24 Completed [facility] 00:00:00 [facility] IPV 2003-06-24 Completed [facility] 00:00:00 [facility] DTaP, Unspecified 2003-06-24 Completed [facility] Formulation 00:00:00 [facility] MMR 2003-06-24 Completed [facility] 00:00:00 [facility] IPV 2003-06-24 Completed [facility] 00:00:00 [facility] DTaP, Unspecified 2003-06-24 Completed [facility] Formulation 00:00:00 [facility] MMR 2003-06-24 Completed [facility] 00:00:00 [facility] IPV 2003-06-24 Completed [facility] 00:00:00 [facility] DTaP, Unspecified 2003-06-24 Completed [facility] Formulation 00:00:00 [facility] MMR 2003-06-24 Completed [facility] 00:00:00 [facility] IPV 2003-06-24 Completed [facility] 00:00:00 [facility] DTaP, Unspecified 2003-06-24 Completed [facility] Formulation 00:00:00 [facility] MMR 2003-06-24 Completed [facility] 00:00:00 [facility] IPV 2003-06-24 Completed [facility] 00:00:00 [facility] DTaP, Unspecified 2003-06-24 Completed [facility] Formulation 00:00:00 [facility] MMR 2003-06-24 Completed [facility] 00:00:00 [facility] IPV 2003-06-24 Completed [facility] 00:00:00 [facility] DTaP, Unspecified 2003-06-24 Completed [facility] Formulation 00:00:00 [facility] MMR 2003-06-24 Completed [facility] 00:00:00 [facility] IPV 2003-06-24 Completed [facility] 00:00:00 [facility] DTaP, Unspecified 2003-06-24 Completed [facility] Formulation 00:00:00 [facility] MMR 2003-06-24 Completed [facility] 00:00:00 [facility] IPV 2003-06-24 Completed [facility] 00:00:00 [facility] DTaP, Unspecified 2003-06-24 Completed [facility] Formulation 00:00:00 [facility] MMR 2003-06-24 Completed [facility] 00:00:00 [facility] IPV 2003-06-24 Completed [facility] 00:00:00 [facility] DTaP, Unspecified 2003-06-24 Completed [facility] Formulation 00:00:00 [facility] MMR 2003-06-24 Completed [facility] 00:00:00 [facility] IPV 2003-06-24 Completed [facility] 00:00:00 [facility] DTaP, Unspecified 2003-06-24 Completed [facility] Formulation 00:00:00 [facility] MMR 2003-06-24 Completed [facility] 00:00:00 [facility] IPV 2003-06-24 Completed [facility] 00:00:00 [facility] DTaP, Unspecified 2003-06-24 Completed [facility] Formulation 00:00:00 [facility] MMR 2003-06-24 Completed [facility] 00:00:00 [facility] IPV 2003-06-24 Completed [facility] 00:00:00 [facility] DTaP, Unspecified 2003-06-24 Completed [facility] Formulation 00:00:00 [facility] MMR 2003-06-24 Completed [facility] 00:00:00 [facility] IPV 2003-06-24 Completed [facility] 00:00:00 [facility] DTaP, Unspecified 2003-06-24 Completed [facility] Formulation 00:00:00 [facility] MMR 2003-06-24 Completed [facility] 00:00:00 [facility] IPV 2003-06-24 Completed [facility] 00:00:00 [facility] DTaP, Unspecified 2003-06-24 Completed [facility] Formulation 00:00:00 [facility] MMR 2003-06-24 Completed [facility] 00:00:00 [facility] IPV 2003-06-24 Completed [facility] 00:00:00 [facility] DTaP, Unspecified 2003-06-24 Completed [facility] Formulation 00:00:00 [facility] MMR 2003-06-24 Completed [facility] 00:00:00 [facility] IPV 2003-06-24 Completed [facility] 00:00:00 [facility] DTaP, Unspecified 2003-06-24 Completed [facility] Formulation 00:00:00 [facility] MMR 2003-06-24 Completed [facility] 00:00:00 [facility] IPV 2003-06-24 Completed [facility] 00:00:00 [facility] DTaP, Unspecified 2003-06-24 Completed [facility] Formulation 00:00:00 [facility] MMR 2003-06-24 Completed [facility] 00:00:00 [facility] IPV 2003-06-24 Completed [facility] 00:00:00 [facility] DTaP, Unspecified 2003-06-24 Completed [facility] Formulation 00:00:00 [facility] MMR 2003-06-24 Completed [facility] 00:00:00 [facility] IPV 2003-06-24 Completed [facility] 00:00:00 [facility] DTaP, Unspecified 2003-06-24 Completed [facility] Formulation 00:00:00 [facility] MMR 2003-06-24 Completed [facility] 00:00:00 [facility] IPV 2003-06-24 Completed [facility] 00:00:00 [facility] DTaP, Unspecified 2003-06-24 Completed [facility] Formulation 00:00:00 [facility] MMR 2003-06-24 Completed [facility] 00:00:00 [facility] IPV 2003-06-24 Completed [facility] 00:00:00 [facility] DTaP, Unspecified 2003-06-24 Completed [facility] Formulation 00:00:00 [facility] MMR 2003-06-24 Completed [facility] 00:00:00 [facility] IPV 2003-06-24 Completed [facility] 00:00:00 [facility] DTaP, Unspecified 2003-06-24 Completed [facility] Formulation 00:00:00 [facility] MMR 2003-06-24 Completed [facility] 00:00:00 [facility] IPV 2003-06-24 Completed [facility] 00:00:00 [facility] DTaP, Unspecified 2003-06-24 Completed [facility] Formulation 00:00:00 [facility] MMR 2003-06-24 Completed [facility] 00:00:00 [facility] IPV 2003-06-24 Completed [facility] 00:00:00 [facility] DTaP, Unspecified 2003-06-24 Completed [facility] Formulation 00:00:00 [facility] MMR 2003-06-24 Completed [facility] 00:00:00 [facility] IPV 2003-06-24 Completed [facility] 00:00:00 [facility] DTaP, Unspecified 2003-06-24 Completed [facility] Formulation 00:00:00 [facility] MMR 2003-06-24 Completed [facility] 00:00:00 [facility] IPV 2003-06-24 Completed [facility] 00:00:00 [facility] DTaP, Unspecified 2003-06-24 Completed [facility] Formulation 00:00:00 [facility] MMR 2003-06-24 Completed [facility] 00:00:00 [facility] IPV 2003-06-24 Completed [facility] 00:00:00 [facility] DTaP, Unspecified 2003-06-24 Completed [facility] Formulation 00:00:00 [facility] MMR 2003-06-24 Completed [facility] 00:00:00 [facility] IPV 2003-06-24 Completed [facility] 00:00:00 [facility] DTaP, Unspecified 2003-06-24 Completed [facility] Formulation 00:00:00 [facility] MMR 2003-06-24 Completed [facility] 00:00:00 [facility] IPV 2003-06-24 Completed [facility] 00:00:00 [facility] DTaP, Unspecified 2003-06-24 Completed [facility] Formulation 00:00:00 [facility] MMR 2003-06-24 Completed [facility] 00:00:00 [facility] IPV 2003-06-24 Completed [facility] 00:00:00 [facility] DTaP, Unspecified 2003-06-24 Completed [facility] Formulation 00:00:00 [facility] MMR 2003-06-24 Completed [facility] 00:00:00 [facility] IPV 2003-06-24 Completed [facility] 00:00:00 [facility] DTaP, Unspecified 2003-06-24 Completed [facility] Formulation 00:00:00 [facility] MMR 2003-06-24 Completed [facility] 00:00:00 [facility] IPV 2003-06-24 Completed [facility] 00:00:00 [facility] DTaP, Unspecified 2003-06-24 Completed [facility] Formulation 00:00:00 [facility] MMR 2003-06-24 Completed [facility] 00:00:00 [facility] IPV 2003-06-24 Completed [facility] 00:00:00 [facility] DTaP, Unspecified 2003-06-24 Completed [facility] Formulation 00:00:00 [facility] MMR 2003-06-24 Completed [facility] 00:00:00 [facility] IPV 2003-06-24 Completed [facility] 00:00:00 [facility] DTaP, Unspecified 2003-06-24 Completed [facility] Formulation 00:00:00 [facility] MMR 2003-06-24 Completed [facility] 00:00:00 [facility] IPV 2003-06-24 Completed [facility] 00:00:00 [facility] DTaP, Unspecified 2000-10-18 Completed [facility] Formulation 00:00:00 [facility] HIB 4 Dose Schedule 2000-10-18 Completed Unive rsity of 00:00:00 [facility] DTaP, Unspecified 2000-10-18 Completed [facility] Formulation 00:00:00 [facility] HIB 4 Dose Schedule 2000-10-18 Completed Unive rsity of 00:00:00 [facility] DTaP, Unspecified 2000-10-18 Completed [facility] Formulation 00:00:00 [facility] HIB 4 Dose Schedule 2000-10-18 Completed [facility]ive rsity of 00:00:00 [facility] DTaP, Unspecified 2000-10-18 Completed [facility] Formulation 00:00:00 [facility] HIB 4 Dose Schedule 2000-10-18 Completed Unive rsity of 00:00:00 [facility] DTaP, Unspecified 2000-10-18 Completed [facility] Formulation 00:00:00 [facility] HIB 4 Dose Schedule 2000-10-18 Completed [facility]ive rsity of 00:00:00 [facility] DTaP, Unspecified 2000-10-18 Completed [facility] Formulation 00:00:00 [facility] HIB 4 Dose Schedule 2000-10-18 Completed [facility]ive rsity of 00:00:00 [facility] DTaP, Unspecified 2000-10-18 Completed [facility] Formulation 00:00:00 [facility] HIB 4 Dose Schedule 2000-10-18 Completed Unive rsity of 00:00:00 [facility] DTaP, Unspecified 2000-10-18 Completed [facility] Formulation 00:00:00 [facility] HIB 4 Dose Schedule 2000-10-18 Completed [facility]ive rsity of 00:00:00 [facility] DTaP, Unspecified 2000-10-18 Completed [facility] Formulation 00:00:00 [facility] HIB 4 Dose Schedule 2000-10-18 Completed [facility]ive rsity of 00:00:00 [facility] DTaP, Unspecified 2000-10-18 Completed [facility] Formulation 00:00:00 [facility] HIB 4 Dose Schedule 2000-10-18 Completed [facility]ive rsity of 00:00:00 [facility] DTaP, Unspecified 2000-10-18 Completed [facility] Formulation 00:00:00 [facility] HIB 4 Dose Schedule 2000-10-18 Completed Unive rsity of 00:00:00 [facility] DTaP, Unspecified 2000-10-18 Completed [facility] Formulation 00:00:00 [facility] HIB 4 Dose Schedule 2000-10-18 Completed [facility]ive rsity of 00:00:00 [facility] DTaP, Unspecified 2000-10-18 Completed [facility] Formulation 00:00:00 [facility] HIB 4 Dose Schedule 2000-10-18 Completed [facility]ive rsity of 00:00:00 [facility] DTaP, Unspecified 2000-10-18 Completed [facility] Formulation 00:00:00 [facility] HIB 4 Dose Schedule 2000-10-18 Completed [facility]ive rsity of 00:00:00 [facility] DTaP, Unspecified 2000-10-18 Completed [facility] Formulation 00:00:00 [facility] HIB 4 Dose Schedule 2000-10-18 Completed [facility]ive rsity of 00:00:00 [facility] DTaP, Unspecified 2000-10-18 Completed [facility] Formulation 00:00:00 [facility] HIB 4 Dose Schedule 2000-10-18 Completed [facility]ive rsity of 00:00:00 [facility] DTaP, Unspecified 2000-10-18 Completed [facility] Formulation 00:00:00 [facility] HIB 4 Dose Schedule 2000-10-18 Completed [facility] rsity of 00:00:00 [facility] DTaP, Unspecified 2000-10-18 Completed [facility] Formulation 00:00:00 [facility] HIB 4 Dose Schedule 2000-10-18 Completed [facility] rs[facility] of 00:00:00 [facility] DTaP, Unspecified 2000-10-18 Completed [facility] Formulation 00:00:00 [facility] HIB 4 Dose Schedule 2000-10-18 Completed [facility] rsity of 00:00:00 [facility] DTaP, Unspecified 2000-10-18 Completed [facility] Formulation 00:00:00 [facility] HIB 4 Dose Schedule 2000-10-18 Completed [facility] rsity of 00:00:00 [facility] DTaP, Unspecified 2000-10-18 Completed Univers ity [...] Schedule 2000-10-18 Completed Unive rsity of 00:00:00 [facility] DTaP, Unspecified 2000-10-18 Completed [facility] Formulation 00:00:00 [facility] HIB 4 Dose Schedule 2000-10-18 Completed [facility] of 00:00:00 [facility] DTaP, Unspecified 2000-10-18 Completed [facility] 00:00:00 [facility] HIB 4 Dose Schedule 2000-10-18 Completed [facility] 00:00:00 [facility] DTaP, Unspecified 2000-10-18 Completed [facility] 00:00:00 [facility] HIB 4 Dose Schedule 2000-10-18 Completed [facility] 00:00:00 [facility] DTaP, Unspecified 2000-10-18 Completed [facility] Form[facility] 00:00:00 [facility] HIB 4 Dose Schedule 2000-10-18 Completed [facility] of 00:00:00 [facility] DTaP, Unspecified 2000-10-18 Completed Univers [...] Schedule 2000-10-18 Completed [facility] 00:00:00 [facility] DTaP, Unspecified 2000-10-18 Completed [facility] Form[facility] 00:00:00 [facility] HIB 4 Dose Schedule 2000-10-18 Completed [facility] 00:00:00 [facility] DTaP, Unspecified 2000-10-18 Completed [facility] Formulation 00:00:00 [facility] HIB 4 Dose Schedule 2000-10-18 Completed [facility] 00:00:00 [facility] DTaP, Unspecified 2000-10-18 Completed [facility] Formulation 00:00:00 [facility] HIB 4 Dose Schedule 2000-10-18 Completed [facility] 00:00:00 [facility] DTaP, Unspecified 2000-10-18 Completed [facility] Form[facility] 00:00:00 [facility] HIB 4 Dose Schedule 2000-10-18 Completed [facility] 00:00:00 [facility] DTaP, Unspecified 2000-10-18 Completed [facility] Formulation 00:00:00 [facility] HIB 4 Dose Schedule 2000-10-18 Completed [facility] 00:00:00 [facility] DTaP, Unspecified 2000-10-18 Completed [facility] Formulation 00:00:00 [facility] HIB 4 Dose Schedule 2000-10-18 Completed [facility] 00:00:00 [facility] DTaP, Unspecified 2000-10-18 Completed [facility] Formulation 00:00:00 [facility] HIB 4 Dose Schedule 2000-10-18 Completed [facility] 00:00:00 [facility] DTaP, Unspecified 2000-10-18 Completed [facility] Formulation 00:00:00 [facility] HIB 4 Dose Schedule 2000-10-18 Completed [facility] 00:00:00 [facility] DTaP, Unspecified 2000-10-18 Completed Univers [...] Schedule 2000-10-18 Completed [facility] 00:00:00 [facility] DTaP, Unspecified 2000-10-18 Completed [facility] Formulation 00:00:00 [facility] HIB 4 Dose Schedule 2000-10-18 Completed [facility] 00:00:00 [facility] DTaP, Unspecified 2000-10-18 Completed [facility] Formulation 00:00:00 [facility] HIB 4 Dose Schedule 2000-10-18 Completed [facility] 00:00:00 [facility] DTaP, Unspecified 2000-10-18 Completed [facility] Formulation 00:00:00 [facility] HIB 4 Dose Schedule 2000-10-18 Completed [facility] 00:00:00 [facility] DTaP, Unspecified 2000-10-18 Completed [facility] Formulation 00:00:00 [facility] HIB 4 Dose Schedule 2000-10-18 Completed [facility] 00:00:00 [facility] DTaP, Unspecified 2000-10-18 Completed [facility] Formulation 00:00:00 [facility] HIB 4 Dose Schedule 2000-10-18 Completed [facility] 00:00:00 [facility] DTaP, Unspecified 2000-10-18 Completed [facility] Formulation 00:00:00 [facility] HIB 4 Dose Schedule 2000-10-18 [...] Schedule 2000-10-18 Completed [facility] 00:00:00 [facility] DTaP, Unspecified 2000-10-18 Completed [facility] Formulation 00:00:00 [facility] HIB 4 Dose Schedule 2000-10-18 Completed [facility] 00:00:00 [facility] DTaP, Unspecified 2000-10-18 Completed [facility] Formulation 00:00:00 [facility] HIB 4 Dose Schedule 2000-10-18 Completed [facility] 00:00:00 [facility] DTaP, Unspecified 2000-10-18 Completed [facility] Formulation 00:00:00 [facility] HIB 4 Dose Schedule 2000-10-18 Completed [facility] 00:00:00 [facility] DTaP, Unspecified 2000-10-18 Completed Univers [...] Schedule 2000-10-18 Completed [facility] 00:00:00 [facility] DTaP, Unspecified 2000-10-18 Completed [facility] Formulation 00:00:00 [facility] HIB 4 Dose Schedule 2000-10-18 Completed [facility] 00:00:00 [facility] DTaP, Unspecified 2000-10-18 Completed [facility] Formulation 00:00:00 [facility] HIB 4 Dose Schedule 2000-10-18 Completed [facility] 00:00:00 [facility] DTaP, Unspecified 2000-10-18 Completed [facility] Formulation 00:00:00 [facility] HIB 4 Dose Schedule 2000-10-18 Completed [facility] of 00:00:00 [facility] DTaP, Unspecified 2000-10-18 Completed [facility] Formulation 00:00:00 [facility] HIB 4 Dose Schedule 2000-10-18 Completed [facility] 00:00:00 [facility] DTaP, Unspecified 2000-10-18 Completed [facility] Formulation 00:00:00 [facility] HIB 4 Dose Schedule 2000-10-18 Completed [facility] of 00:00:00 [facility] DTaP, Unspecified 2000-10-18 Completed [facility] Formulation 00:00:00 [facility] HIB 4 Dose Schedule 2000-10-18 Completed [facility] 00:00:00 [facility] MMR 2000-07-03 Completed [facility] 00:00:00 [facility] IPV 2000-07-03 Completed [facility] 00:00:00 [facility] Varicella 2000-07-03 Completed [facility] (varivax)(chicken 00:00:00 [facility] MMR 2000-07-03 Completed [facility] 00:00:00 [facility] IPV 2000-07-03 Completed [facility] 00:00:00 [facility] Varicella 2000-07-03 Completed [facility] (varivax)(chicken 00:00:00 [facility] MMR 2000-07-03 Completed [facility] 00:00:00 [facility] IPV 2000-07-03 Completed [facility] 00:00:00 [facility] Varicella 2000-07-03 Completed [facility] (varivax)(chicken 00:00:00 [facility] MMR 2000-07-03 Completed [facility] 00:00:00 [facility] IPV 2000-07-03 Completed [facility] 00:00:00 [facility] Varicella 2000-07-03 Completed [facility] (varivax)(chicken 00:00:00 [facility] MMR 2000-07-03 Completed [facility] 00:00:00 [facility] IPV 2000-07-03 Completed [facility] 00:00:00 [facility] Varicella 2000-07-03 Completed [facility] (varivax)(chicken 00:00:00 [facility] MMR 2000-07-03 Completed [facility] 00:00:00 [facility] IPV 2000-07-03 Completed [facility] 00:00:00 [facility] Varicella 2000-07-03 Completed [facility] (varivax)(chicken 00:00:00 [facility] MMR 2000-07-03 Completed [facility] 00:00:00 [facility] IPV 2000-07-03 Completed [facility] 00:00:00 [facility] Varicella 2000-07-03 Completed [facility] (varivax)(chicken 00:00:00 [facility] MMR 2000-07-03 Completed [facility] 00:00:00 [facility] IPV 2000-07-03 Completed [facility] 00:00:00 [facility] Varicella 2000-07-03 Completed [facility] (varivax)(chicken 00:00:00 [place] [facility] MMR 2000-07-03 Completed [facility] 00:00:00 [facility] IPV 2000-07-03 Completed [facility] 00:00:00 [facility] Varicella 2000-07-03 Completed [facility] (varivax)(chicken 00:00:00 [facility] MMR 2000-07-03 Completed [facility] 00:00:00 [facility] IPV 2000-07-03 Completed [facility] 00:00:00 [facility] Varicella 2000-07-03 Completed [facility] (varivax)(chicken 00:00:00 [place] [facility] MMR 2000-07-03 Completed [facility] 00:00:00 [facility] IPV 2000-07-03 Completed [facility] 00:00:00 [facility] Varicella 2000-07-03 Completed [facility] (varivax)(chicken 00:00:00 [facility] MMR 2000-07-03 Completed [facility] 00:00:00 [facility] IPV 2000-07-03 Completed [facility] 00:00:00 [facility] Varicella 2000-07-03 Completed [facility] (varivax)(chicken 00:00:00 [facility] MMR 2000-07-03 Completed [facility] 00:00:00 [facility] IPV 2000-07-03 Completed [facility] 00:00:00 [facility] Varicella 2000-07-03 Completed [facility] (varivax)(chicken 00:00:00 [facility] MMR 2000-07-03 Completed [facility] 00:00:00 [facility] IPV 2000-07-03 Completed [facility] 00:00:00 [facility] Varicella 2000-07-03 Completed [facility] (varivax)(chicken 00:00:00 [facility] MMR 2000-07-03 Completed [facility] 00:00:00 [facility] IPV 2000-07-03 Completed [facility] 00:00:00 [facility] Varicella 2000-07-03 Completed [facility] (varivax)(chicken 00:00:00 [facility] MMR 2000-07-03 Completed [facility] 00:00:00 [facility] IPV 2000-07-03 Completed [facility] 00:00:00 [facility] Varicella 2000-07-03 Completed [facility] (varivax)(chicken 00:00:00 [facility] MMR 2000-07-03 Completed [facility] 00:00:00 [facility] IPV 2000-07-03 Completed [facility] 00:00:00 [facility] Varicella 2000-07-03 Completed [facility] (varivax)(chicken 00:00:00 [facility] MMR 2000-07-03 Completed [facility] 00:00:00 [facility] IPV 2000-07-03 Completed [facility] 00:00:00 [facility] Varicella 2000-07-03 Completed [facility] (varivax)(chicken 00:00:00 [facility] MMR 2000-07-03 Completed [facility] 00:00:00 [facility] IPV 2000-07-03 Completed [facility] of 00:00:00 [facility] Varicella 2000-07-03 Completed [facility] (varivax)(chicken 00:00:00 [facility] MMR 2000-07-03 Completed [facility] 00:00:00 [facility] IPV 2000-07-03 Completed [facility] 00:00:00 [facility] Varicella 2000-07-03 Completed [facility] (varivax)(chicken 00:00:00 [facility] MMR 2000-07-03 Completed [facility] 00:00:00 [facility] IPV 2000-07-03 Completed [facility] 00:00:00 [facility] Varicella 2000-07-03 Completed [facility] (varivax)(chicken 00:00:00 [facility] MMR 2000-07-03 Completed [facility] 00:00:00 [facility] IPV 2000-07-03 Completed [facility] 00:00:00 [facility] Varicella 2000-07-03 Completed [facility] (varivax)(chicken 00:00:00 [facility] MMR 2000-07-03 Completed [facility] 00:00:00 [facility] IPV 2000-07-03 Completed [facility] 00:00:00 [facility] Varicella 2000-07-03 Completed [facility] (varivax)(chicken 00:00:00 [facility] MMR 2000-07-03 Completed [facility] 00:00:00 [facility] IPV 2000-07-03 Completed [facility] 00:00:00 [facility] Varicella 2000-07-03 Completed [facility] (varivax)(chicken 00:00:00 [facility] MMR 2000-07-03 Completed [facility] 00:00:00 [facility] IPV 2000-07-03 Completed [facility] 00:00:00 [facility] Varicella 2000-07-03 Completed [facility] (varivax)(chicken 00:00:00 [facility] MMR 2000-07-03 Completed [facility] 00:00:00 [facility] IPV 2000-07-03 Completed [facility] 00:00:00 [facility] Varicella 2000-07-03 Completed [facility] (varivax)(chicken 00:00:00 [facility] MMR 2000-07-03 Completed [facility] 00:00:00 [facility] IPV 2000-07-03 Completed [facility] 00:00:00 [facility] Varicella 2000-07-03 Completed [facility] (varivax)(chicken 00:00:00 [facility] MMR 2000-07-03 Completed [facility] 00:00:00 [facility] IPV 2000-07-03 Completed [facility] 00:00:00 [facility] Varicella 2000-07-03 Completed [facility] (varivax)(chicken 00:00:00 [facility] MMR 2000-07-03 Completed [facility] 00:00:00 [facility] IPV 2000-07-03 Completed [facility] 00:00:00 [facility] Varicella 2000-07-03 Completed [facility] (varivax)(chicken 00:00:00 [place] [facility] MMR 2000-07-03 Completed [facility] 00:00:00 [facility] IPV 2000-07-03 Completed [facility] 00:00:00 [facility] Varicella 2000-07-03 Completed [facility] (varivax)(chicken 00:00:00 [facility] MMR 2000-07-03 Completed [facility] 00:00:00 [facility] IPV 2000-07-03 Completed [facility] 00:00:00 [facility] Varicella 2000-07-03 Completed [facility] (varivax)(chicken 00:00:00 [facility] MMR 2000-07-03 Completed [facility] 00:00:00 [facility] IPV 2000-07-03 Completed [facility] 00:00:00 [facility] Varicella 2000-07-03 Completed [facility] (varivax)(chicken 00:00:00 [facility] MMR 2000-07-03 Completed [facility] 00:00:00 [facility] IPV 2000-07-03 Completed [facility] 00:00:00 [facility] Varicella 2000-07-03 Completed [facility] (varivax)(chicken 00:00:00 [facility] MMR 2000-07-03 Completed [facility] 00:00:00 [facility] IPV 2000-07-03 Completed [facility] 00:00:00 [facility] Varicella 2000-07-03 Completed [facility] (varivax)(chicken 00:00:00 [facility] MMR 2000-07-03 Completed [facility] 00:00:00 [facility] IPV 2000-07-03 Completed [facility] 00:00:00 [facility] Varicella 2000-07-03 Completed [facility] (varivax)(chicken 00:00:00 [facility] MMR 2000-07-03 Completed [facility] 00:00:00 [facility] IPV 2000-07-03 Completed [facility] 00:00:00 [facility] Varicella 2000-07-03 Completed [facility] (varivax)(chicken 00:00:00 [facility] MMR 2000-07-03 Completed [facility] 00:00:00 [facility] IPV 2000-07-03 Completed [facility] 00:00:00 [facility] Varicella 2000-07-03 Completed [facility] (varivax)(chicken 00:00:00 [facility] MMR 2000-07-03 Completed [facility] 00:00:00 [facility] IPV 2000-07-03 Completed [facility] 00:00:00 [facility] Varicella 2000-07-03 Completed [facility] (varivax)(chicken 00:00:00 [facility] MMR 2000-07-03 Completed [facility] 00:00:00 [facility] IPV 2000-07-03 Completed [facility] 00:00:00 [facility] Varicella 2000-07-03 Completed [facility] (varivax)(chicken 00:00:00 [place] [facility] MMR 2000-07-03 Completed [facility] 00:00:00 [facility] IPV 2000-07-03 Completed [facility] 00:00:00 [facility] Varicella 2000-07-03 Completed [facility] (varivax)(chicken 00:00:00 [facility] MMR 2000-07-03 Completed [facility] 00:00:00 [facility] IPV 2000-07-03 Completed [facility] 00:00:00 [facility] Varicella 2000-07-03 Completed [facility] (varivax)(chicken 00:00:00 [place] [facility] MMR 2000-07-03 Completed [facility] 00:00:00 [facility] IPV 2000-07-03 Completed [facility] 00:00:00 [facility] Varicella 2000-07-03 Completed [facility] (varivax)(chicken 00:00:00 [place] [facility] MMR 2000-07-03 Completed [facility] 00:00:00 [facility] IPV 2000-07-03 Completed [facility] 00:00:00 [facility] Varicella 2000-07-03 Completed [facility] (varivax)(chicken 00:00:00 [place] [facility] MMR 2000-07-03 Completed [facility] 00:00:00 [facility] IPV 2000-07-03 Completed [facility] 00:00:00 [facility] Varicella 2000-07-03 Completed [facility] (varivax)(chicken 00:00:00 [place] [facility] MMR 2000-07-03 Completed [facility] 00:00:00 [facility] IPV 2000-07-03 Completed [facility] 00:00:00 [facility] Varicella 2000-07-03 Completed [facility] (varivax)(chicken 00:00:00 [place] [facility] MMR 2000-07-03 Completed [facility] 00:00:00 [facility] IPV 2000-07-03 Completed [facility] 00:00:00 [facility] Varicella 2000-07-03 Completed [facility] (varivax)(chicken 00:00:00 [place] [facility] MMR 2000-07-03 Completed [facility] 00:00:00 [facility] IPV 2000-07-03 Completed [facility] 00:00:00 [facility] Varicella 2000-07-03 Completed [facility] (varivax)(chicken 00:00:00 [facility] MMR 2000-07-03 Completed [facility] 00:00:00 [facility] IPV 2000-07-03 Completed [facility] 00:00:00 [facility] Varicella 2000-07-03 Completed [facility] (varivax)(chicken 00:00:00 [facility] MMR 2000-07-03 Completed [facility] 00:00:00 [facility] IPV 2000-07-03 Completed [facility] of 00:00:00 [facility] Varicella 2000-07-03 Completed [facility] (varivax)(chicken 00:00:00 [place] [facility] MMR 2000-07-03 Completed [facility] 00:00:00 [facility] IPV 2000-07-03 Completed [facility] 00:00:00 [facility] Varicella 2000-07-03 Completed [facility] (varivax)(chicken 00:00:00 [place] [facility] MMR 2000-07-03 Completed [facility] 00:00:00 [facility] IPV 2000-07-03 Completed [facility] 00:00:00 [facility] Varicella 2000-07-03 Completed [facility] (varivax)(chicken 00:00:00 [place] [facility] MMR 2000-07-03 Completed [facility] 00:00:00 [facility] IPV 2000-07-03 Completed [facility] 00:00:00 [facility] Varicella 2000-07-03 Completed [facility] (varivax)(chicken 00:00:00 [place] [facility] MMR 2000-07-03 Completed [facility] 00:00:00 [facility] IPV 2000-07-03 Completed [facility] 00:00:00 [facility] Varicella 2000-07-03 Completed [facility] (varivax)(chicken 00:00:00 [place] [facility] MMR 2000-07-03 Completed [facility] 00:00:00 [facility] IPV 2000-07-03 Completed [facility] 00:00:00 [facility] Varicella 2000-07-03 Completed [facility] (varivax)(chicken 00:00:00 [place] [facility] MMR 2000-07-03 Completed [facility] 00:00:00 [facility] IPV 2000-07-03 Completed [facility] 00:00:00 [facility] Varicella 2000-07-03 Completed [facility] (varivax)(chicken 00:00:00 [place] [facility] MMR 2000-07-03 Completed [facility] 00:00:00 [facility] IPV 2000-07-03 Completed [facility] 00:00:00 [facility] Varicella 2000-07-03 Completed [facility] (varivax)(chicken 00:00:00 [place] [facility] MMR 2000-07-03 Completed [facility] 00:00:00 [facility] IPV 2000-07-03 Completed [facility] 00:00:00 [facility] Varicella 2000-07-03 Completed [facility] (varivax)(chicken 00:00:00 [place] [facility] MMR 2000-07-03 Completed [facility] 00:00:00 [facility] IPV 2000-07-03 Completed [facility] 00:00:00 [facility] Varicella 2000-07-03 Completed [facility] (varivax)(chicken 00:00:00 [place] [facility] MMR 2000-07-03 Completed [facility] 00:00:00 [facility] IPV 2000-07-03 Completed [facility] 00:00:00 [facility] Varicella 2000-07-03 Completed [facility] (varivax)(chicken 00:00:00 [place] [facility] MMR 2000-07-03 Completed [facility] 00:00:00 [facility] IPV 2000-07-03 Completed [facility] 00:00:00 [facility] Varicella 2000-07-03 Completed [facility] (varivax)(chicken 00:00:00 [place] [facility] MMR 2000-07-03 Completed [facility] 00:00:00 [facility] IPV 2000-07-03 Completed [facility] 00:00:00 [facility] Varicella 2000-07-03 Completed [facility] (varivax)(chicken 00:00:00 [place] [facility] MMR 2000-07-03 Completed [facility] 00:00:00 [facility] IPV 2000-07-03 Completed [facility] 00:00:00 [facility] Varicella 2000-07-03 Completed [facility] (varivax)(chicken 00:00:00 [place] [facility] MMR 2000-07-03 Completed [facility] 00:00:00 [facility] IPV 2000-07-03 Completed [facility] 00:00:00 [facility] Varicella 2000-07-03 Completed [facility] (varivax)(chicken 00:00:00 [place] [facility] MMR 2000-07-03 Completed [facility] 00:00:00 [facility] IPV 2000-07-03 Completed [facility] 00:00:00 [facility] Varicella 2000-07-03 Completed [facility] (varivax)(chicken 00:00:00 [place] [facility] MMR 2000-07-03 Completed [facility] 00:00:00 [facility] IPV 2000-07-03 Completed [facility] 00:00:00 [facility] Varicella 2000-07-03 Completed [facility] (varivax)(chicken 00:00:00 [place] [facility] MMR 2000-07-03 Completed [facility] 00:00:00 [facility] IPV 2000-07-03 Completed [facility] 00:00:00 [facility] Varicella 2000-07-03 Completed [facility] (varivax)(chicken 00:00:00 [place] [facility] MMR 2000-07-03 Completed [facility] 00:00:00 [facility] IPV 2000-07-03 Completed [facility] 00:00:00 [facility] Varicella 2000-07-03 Completed [facility] (varivax)(chicken 00:00:00 [place] [facility] MMR 2000-07-03 Completed [facility] 00:00:00 [facility] IPV 2000-07-03 Completed [facility] 00:00:00 [facility] Varicella 2000-07-03 Completed [facility] (varivax)(chicken 00:00:00 [place] [facility] MMR 2000-07-03 Completed [facility] 00:00:00 [facility] IPV 2000-07-03 Completed [facility] 00:00:00 [facility] Varicella 2000-07-03 Completed [facility] (varivax)(chicken 00:00:00 [place] [facility] MMR 2000-07-03 Completed [facility] 00:00:00 [facility] IPV 2000-07-03 Completed [facility] 00:00:00 [facility] Varicella 2000-07-03 Completed [facility] (varivax)(chicken 00:00:00 [facility] edical pox) Branch DTaP, Unspecified 2000-03-21 Completed [facility] 00:00:00 [facility] Hep B, Adol or Pedi 2000-03-21 Completed [facility] Dosage 00:00:00 [facility] HIB 4 Dose Schedule 2000-03-21 Completed [facility] 00:00:00 [facility] DTaP, Unspecified 2000-03-21 Completed [facility] 00:00:00 [facility] Hep B, Adol or Pedi 2000-03-21 Completed [facility] Dosage 00:00:00 [facility] HIB 4 Dose Schedule 2000-03-21 Completed [facility] 00:00:00 [facility] DTaP, Unspecified 2000-03-21 Completed [facility] 00:00:00 [facility] Hep B, Adol or Pedi 2000-03-21 Completed [facility] Dosage 00:00:00 [facility] HIB 4 Dose Schedule 2000-03-21 Completed [facility] 00:00:00 [facility] DTaP, Unspecified 2000-03-21 Completed [facility] 00:00:00 [facility] Hep B, Adol or Pedi 2000-03-21 Completed [facility] Dosage 00:00:00 [facility] HIB 4 Dose Schedule 2000-03-21 Completed [facility] 00:00:00 [facility] DTaP, Unspecified 2000-03-21 Completed [facility] 00:00:00 [facility] Hep B, Adol or Pedi 2000-03-21 Completed [facility] Dosage 00:00:00 [facility] HIB 4 Dose Schedule 2000-03-21 Completed [facility] 00:00:00 [facility] DTaP, Unspecified 2000-03-21 Completed [facility] 00:00:00 [facility] Hep B, Adol or Pedi 2000-03-21 Completed [facility] Dosage 00:00:00 [facility] HIB 4 Dose Schedule 2000-03-21 Completed [facility] 00:00:00 [facility] DTaP, Unspecified 2000-03-21 Completed [facility] 00:00:00 [facility] Hep B, Adol or Pedi 2000-03-21 Completed [facility] Dosage 00:00:00 [facility] HIB 4 Dose Schedule 2000-03-21 Completed [facility] 00:00:00 [facility] DTaP, Unspecified 2000-03-21 Completed [facility] 00:00:00 [facility] Hep B, Adol or Pedi 2000-03-21 Completed [facility] Dosage 00:00:00 [facility] HIB 4 Dose Schedule 2000-03-21 Completed [facility] 00:00:00 [facility] DTaP, Unspecified 2000-03-21 Completed [facility] 00:00:00 [facility] Hep B, Adol or Pedi 2000-03-21 Completed [facility] Dosage 00:00:00 [facility] HIB 4 Dose Schedule 2000-03-21 Completed [facility] 00:00:00 [facility] DTaP, Unspecified 2000-03-21 Completed [facility] 00:00:00 [facility] Hep B, Adol or Pedi 2000-03-21 Completed [facility] Dosage 00:00:00 [facility] HIB 4 Dose Schedule 2000-03-21 Completed [facility] 00:00:00 [facility] DTaP, Unspecified 2000-03-21 Completed [facility] 00:00:00 [facility] Hep B, Adol or Pedi 2000-03-21 Completed [facility] Dosage 00:00:00 [facility] HIB 4 Dose Schedule 2000-03-21 Completed [facility] 00:00:00 [facility] DTaP, Unspecified 2000-03-21 Completed [facility] 00:00:00 [facility] Hep B, Adol or Pedi 2000-03-21 Completed [facility] Dosage 00:00:00 [facility] HIB 4 Dose Schedule 2000-03-21 Completed [facility] 00:00:00 [facility] DTaP, Unspecified 2000-03-21 Completed [facility] 00:00:00 [facility] Hep B, Adol or Pedi 2000-03-21 Completed [facility] Dosage 00:00:00 [facility] HIB 4 Dose Schedule 2000-03-21 Completed [facility] 00:00:00 [facility] DTaP, Unspecified 2000-03-21 Completed [facility] 00:00:00 [facility] Hep B, Adol or Pedi 2000-03-21 Completed [facility] Dosage 00:00:00 [facility] HIB 4 Dose Schedule 2000-03-21 Completed [facility] 00:00:00 [facility] DTaP, Unspecified 2000-03-21 Completed [facility] 00:00:00 [facility] Hep B, Adol or Pedi 2000-03-21 Completed [facility] Dosage 00:00:00 [facility] HIB 4 Dose Schedule 2000-03-21 Completed [facility] 00:00:00 [facility] DTaP, Unspecified 2000-03-21 Completed [facility] 00:00:00 [facility] Hep B, Adol or Pedi 2000-03-21 Completed [facility] Dosage 00:00:00 [facility] HIB 4 Dose Schedule 2000-03-21 Completed [facility] 00:00:00 [facility] DTaP, Unspecified 2000-03-21 Completed [facility] 00:00:00 [facility] Hep B, Adol or Pedi 2000-03-21 Completed [facility] Dosage 00:00:00 [facility] HIB 4 Dose Schedule 2000-03-21 Completed [facility] 00:00:00 [facility] DTaP, Unspecified 2000-03-21 Completed [facility] 00:00:00 [facility] Hep B, Adol or Pedi 2000-03-21 Completed [facility] Dosage 00:00:00 [facility] HIB 4 Dose Schedule 2000-03-21 Completed [facility] 00:00:00 [facility] DTaP, Unspecified 2000-03-21 Completed [facility] 00:00:00 [facility] Hep B, Adol or Pedi 2000-03-21 Completed [facility] Dosage 00:00:00 [facility] HIB 4 Dose Schedule 2000-03-21 Completed [facility] 00:00:00 [facility] DTaP, Unspecified 2000-03-21 Completed [facility] 00:00:00 [facility] Hep B, Adol or Pedi 2000-03-21 Completed [facility] Dosage 00:00:00 [facility] HIB 4 Dose Schedule 2000-03-21 Completed [facility] 00:00:00 [facility] DTaP, Unspecified 2000-03-21 Completed [facility] 00:00:00 [facility] Hep B, Adol or Pedi 2000-03-21 Completed [facility] Dosage 00:00:00 [facility] HIB 4 Dose Schedule 2000-03-21 Completed [facility] 00:00:00 [facility] DTaP, Unspecified 2000-03-21 Completed [facility] 00:00:00 [facility] Hep B, Adol or Pedi 2000-03-21 Completed [facility] Dosage 00:00:00 [facility] HIB 4 Dose Schedule 2000-03-21 Completed [facility] 00:00:00 [facility] DTaP, Unspecified 2000-03-21 Completed [facility] 00:00:00 [facility] Hep B, Adol or Pedi 2000-03-21 Completed [facility] Dosage 00:00:00 [facility] HIB 4 Dose Schedule 2000-03-21 Completed [facility] 00:00:00 [facility] DTaP, Unspecified 2000-03-21 Completed [facility] 00:00:00 [facility] Hep B, Adol or Pedi 2000-03-21 Completed [facility] Dosage 00:00:00 [facility] HIB 4 Dose Schedule 2000-03-21 Completed [facility] 00:00:00 [facility] DTaP, Unspecified 2000-03-21 Completed [facility] 00:00:00 [facility] Hep B, Adol or Pedi 2000-03-21 Completed [facility] Dosage 00:00:00 [facility] HIB 4 Dose Schedule 2000-03-21 Completed [facility] 00:00:00 [facility] DTaP, Unspecified 2000-03-21 Completed [facility] 00:00:00 [facility] Hep B, Adol or Pedi 2000-03-21 Completed [facility] Dosage 00:00:00 [facility] HIB 4 Dose Schedule 2000-03-21 Completed [facility] 00:00:00 [facility] DTaP, Unspecified 2000-03-21 Completed [facility] 00:00:00 [facility] Hep B, Adol or Pedi 2000-03-21 Completed [facility] Dosage 00:00:00 [facility] HIB 4 Dose Schedule 2000-03-21 Completed [facility] 00:00:00 [facility] DTaP, Unspecified 2000-03-21 Completed [facility] 00:00:00 [facility] Hep B, Adol or Pedi 2000-03-21 Completed [facility] Dosage 00:00:00 [facility] HIB 4 Dose Schedule 2000-03-21 Completed [facility] 00:00:00 [facility] DTaP, Unspecified 2000-03-21 Completed [facility] 00:00:00 [facility] Hep B, Adol or Pedi 2000-03-21 Completed [facility] Dosage 00:00:00 [facility] HIB 4 Dose Schedule 2000-03-21 Completed [facility] 00:00:00 [facility] DTaP, Unspecified 2000-03-21 Completed [facility] 00:00:00 [facility] Hep B, Adol or Pedi 2000-03-21 Completed [facility] Dosage 00:00:00 [facility] HIB 4 Dose Schedule 2000-03-21 Completed [facility] 00:00:00 [facility] DTaP, Unspecified 2000-03-21 Completed [facility] 00:00:00 [facility] Hep B, Adol or Pedi 2000-03-21 Completed [facility] Dosage 00:00:00 [facility] HIB 4 Dose Schedule 2000-03-21 Completed [facility] 00:00:00 [facility] DTaP, Unspecified 2000-03-21 Completed [facility] 00:00:00 [facility] Hep B, Adol or Pedi 2000-03-21 Completed [facility] Dosage 00:00:00 [facility] HIB 4 Dose Schedule 2000-03-21 Completed [facility] 00:00:00 [facility] DTaP, Unspecified 2000-03-21 Completed [facility] 00:00:00 [facility] Hep B, Adol or Pedi 2000-03-21 Completed [facility] Dosage 00:00:00 [facility] HIB 4 Dose Schedule 2000-03-21 Completed [facility] 00:00:00 [facility] DTaP, Unspecified 2000-03-21 Completed [facility] 00:00:00 [facility] Hep B, Adol or Pedi 2000-03-21 Completed [facility] Dosage 00:00:00 [facility] HIB 4 Dose Schedule 2000-03-21 Completed [facility] 00:00:00 [facility] DTaP, Unspecified 2000-03-21 Completed [facility] 00:00:00 [facility] Hep B, Adol or Pedi 2000-03-21 Completed [facility] Dosage 00:00:00 [facility] HIB 4 Dose Schedule 2000-03-21 Completed [facility] 00:00:00 [facility] DTaP, Unspecified 2000-03-21 Completed [facility] 00:00:00 [facility] Hep B, Adol or Pedi 2000-03-21 Completed [facility] Dosage 00:00:00 [facility] HIB 4 Dose Schedule 2000-03-21 Completed [facility] 00:00:00 [facility] DTaP, Unspecified 2000-03-21 Completed [facility] 00:00:00 [facility] Hep B, Adol or Pedi 2000-03-21 Completed [facility] Dosage 00:00:00 [facility] [place] HIB 4 Dose Schedule 2000-03-21 Completed [facility] 00:00:00 [facility] DTaP, Unspecified 2000-03-21 Completed [facility] 00:00:00 [facility] Hep B, Adol or Pedi 2000-03-21 Completed [facility] Dosage 00:00:00 [facility] HIB 4 Dose Schedule 2000-03-21 Completed [facility] 00:00:00 [facility] DTaP, Unspecified 2000-03-21 Completed [facility] 00:00:00 [facility] Hep B, Adol or Pedi 2000-03-21 Completed [facility] Dosage 00:00:00 [facility] HIB 4 Dose Schedule 2000-03-21 Completed [facility] 00:00:00 [facility] DTaP, Unspecified 2000-03-21 Completed [facility] 00:00:00 [facility] Hep B, Adol or Pedi 2000-03-21 Completed [facility] Dosage 00:00:00 [facility] HIB 4 Dose Schedule 2000-03-21 Completed [facility] 00:00:00 [facility] DTaP, Unspecified 2000-03-21 Completed [facility] 00:00:00 [facility] Hep B, Adol or Pedi 2000-03-21 Completed [facility] Dosage 00:00:00 [facility] HIB 4 Dose Schedule 2000-03-21 Completed [facility] 00:00:00 [facility] DTaP, Unspecified 2000-03-21 Completed [facility] 00:00:00 [facility] Hep B, Adol or Pedi 2000-03-21 Completed [facility] Dosage 00:00:00 [facility] HIB 4 Dose Schedule 2000-03-21 Completed [facility] 00:00:00 [facility] DTaP, Unspecified 2000-03-21 Completed [facility] 00:00:00 [facility] Hep B, Adol or Pedi 2000-03-21 Completed [facility] Dosage 00:00:00 [facility] HIB 4 Dose Schedule 2000-03-21 Completed [facility] 00:00:00 [facility] DTaP, Unspecified 2000-03-21 Completed [facility] 00:00:00 [facility] Hep B, Adol or Pedi 2000-03-21 Completed [facility] Dosage 00:00:00 [facility] HIB 4 Dose Schedule 2000-03-21 Completed [facility] 00:00:00 [facility] DTaP, Unspecified 2000-03-21 Completed [facility] 00:00:00 [facility] Hep B, Adol or Pedi 2000-03-21 Completed [facility] Dosage 00:00:00 [facility] HIB 4 Dose Schedule 2000-03-21 Completed [facility] 00:00:00 [facility] DTaP, Unspecified 2000-03-21 Completed [facility] 00:00:00 [facility] Hep B, Adol or Pedi 2000-03-21 Completed [facility] Dosage 00:00:00 [facility] HIB 4 Dose Schedule 2000-03-21 Completed [facility] 00:00:00 [facility] DTaP, Unspecified 2000-03-21 Completed [facility] 00:00:00 [facility] Hep B, Adol or Pedi 2000-03-21 Completed [facility] Dosage 00:00:00 [facility] HIB 4 Dose Schedule 2000-03-21 Completed [facility] 00:00:00 [facility] DTaP, Unspecified 2000-03-21 Completed [facility] 00:00:00 [facility] Hep B, Adol or Pedi 2000-03-21 Completed [facility] Dosage 00:00:00 [facility] HIB 4 Dose Schedule 2000-03-21 Completed [facility] 00:00:00 [facility] DTaP, Unspecified 2000-03-21 Completed [facility] 00:00:00 [facility] Hep B, Adol or Pedi 2000-03-21 Completed [facility] Dosage 00:00:00 [facility] HIB 4 Dose Schedule 2000-03-21 Completed [facility] 00:00:00 [facility] DTaP, Unspecified 2000-03-21 Completed [facility] 00:00:00 [facility] Hep B, Adol or Pedi 2000-03-21 Completed [facility] Dosage 00:00:00 [facility] HIB 4 Dose Schedule 2000-03-21 Completed [facility] 00:00:00 [facility] DTaP, Unspecified 2000-03-21 Completed [facility] 00:00:00 [facility] Hep B, Adol or Pedi 2000-03-21 Completed [facility] Dosage 00:00:00 [facility] HIB 4 Dose Schedule 2000-03-21 Completed [facility] 00:00:00 [facility] DTaP, Unspecified 2000-03-21 Completed [facility] 00:00:00 [facility] Hep B, Adol or Pedi 2000-03-21 Completed [facility] Dosage 00:00:00 [facility] HIB 4 Dose Schedule 2000-03-21 Completed [facility] 00:00:00 [facility] DTaP, Unspecified 2000-03-21 Completed [facility] 00:00:00 [facility] Hep B, Adol or Pedi 2000-03-21 Completed [facility] Dosage 00:00:00 [facility] HIB 4 Dose Schedule 2000-03-21 Completed [facility] 00:00:00 [facility] DTaP, Unspecified 2000-03-21 Completed [facility] 00:00:00 [facility] Hep B, Adol or Pedi 2000-03-21 Completed [facility] Dosage 00:00:00 [facility] HIB 4 Dose Schedule 2000-03-21 Completed [facility] 00:00:00 [facility] DTaP, Unspecified 2000-03-21 Completed [facility] 00:00:00 [facility] Hep B, Adol or Pedi 2000-03-21 Completed [facility] Dosage 00:00:00 [facility] HIB 4 Dose Schedule 2000-03-21 Completed [facility] 00:00:00 [facility] DTaP, Unspecified 2000-03-21 Completed [facility] 00:00:00 [facility] Hep B, Adol or Pedi 2000-03-21 Completed [facility] Dosage 00:00:00 [facility] HIB 4 Dose Schedule 2000-03-21 Completed [facility] 00:00:00 [facility] DTaP, Unspecified 2000-03-21 Completed [facility] 00:00:00 [facility] Hep B, Adol or Pedi 2000-03-21 Completed [facility] Dosage 00:00:00 [facility] [place] HIB 4 Dose Schedule 2000-03-21 Completed [facility] 00:00:00 [facility] DTaP, Unspecified 2000-03-21 Completed [facility] 00:00:00 [facility] Hep B, Adol or Pedi 2000-03-21 Completed [facility] Dosage 00:00:00 [facility] HIB 4 Dose Schedule 2000-03-21 Completed [facility] 00:00:00 [facility] DTaP, Unspecified 2000-03-21 Completed [facility] 00:00:00 [facility] Hep B, Adol or Pedi 2000-03-21 Completed [facility] Dosage 00:00:00 [facility] HIB 4 Dose Schedule 2000-03-21 Completed [facility] 00:00:00 [facility] DTaP, Unspecified 2000-03-21 Completed [facility] 00:00:00 [facility] Hep B, Adol or Pedi 2000-03-21 Completed [facility] Dosage 00:00:00 [facility] HIB 4 Dose Schedule 2000-03-21 Completed [facility] 00:00:00 [facility] DTaP, Unspecified 2000-03-21 Completed [facility] 00:00:00 [facility] Hep B, Adol or Pedi 2000-03-21 Completed [facility] Dosage 00:00:00 [facility] HIB 4 Dose Schedule 2000-03-21 Completed [facility] 00:00:00 [facility] DTaP, Unspecified 2000-03-21 Completed [facility] 00:00:00 [facility] Hep B, Adol or Pedi 2000-03-21 Completed [facility] Dosage 00:00:00 [facility] HIB 4 Dose Schedule 2000-03-21 Completed [facility] 00:00:00 [facility] DTaP, Unspecified 2000-03-21 Completed [facility] 00:00:00 [facility] Hep B, Adol or Pedi 2000-03-21 Completed [facility] Dosage 00:00:00 [facility] HIB 4 Dose Schedule 2000-03-21 Completed [facility] 00:00:00 [facility] DTaP, Unspecified 2000-03-21 Completed [facility] 00:00:00 [facility] Hep B, Adol or Pedi 2000-03-21 Completed [facility] Dosage 00:00:00 [facility] HIB 4 Dose Schedule 2000-03-21 Completed [facility] 00:00:00 [facility] DTaP, Unspecified 2000-03-21 Completed [facility] 00:00:00 [facility] Hep B, Adol or Pedi 2000-03-21 Completed [facility] Dosage 00:00:00 [facility] HIB 4 Dose Schedule 2000-03-21 Completed [facility] 00:00:00 [facility] DTaP, Unspecified 2000-03-21 Completed [facility] 00:00:00 [facility] Hep B, Adol or Pedi 2000-03-21 Completed [facility] Dosage 00:00:00 [facility] HIB 4 Dose Schedule 2000-03-21 Completed [facility] 00:00:00 [facility] DTaP, Unspecified 2000-03-21 Completed [facility] Form[facility] 00:00:00 [facility] Hep B, Adol or Pedi 2000-03-21 Completed [facility] Dosage 00:00:00 [facility] HIB 4 Dose Schedule 2000-03-21 Completed [facility] 00:00:00 [facility] DTaP, Unspecified 2000-03-21 Completed [facility] 00:00:00 [facility] Hep B, Adol or Pedi 2000-03-21 Completed [facility] Dosage 00:00:00 [facility] HIB 4 Dose Schedule 2000-03-21 Completed [facility] 00:00:00 [facility] DTaP, Unspecified 2000-03-21 Completed [facility] 00:00:00 [facility] Hep B, Adol or Pedi 2000-03-21 Completed [facility] Dosage 00:00:00 [facility] HIB 4 Dose Schedule 2000-03-21 Completed [facility] 00:00:00 [facility] DTaP, Unspecified 2000-03-21 Completed [facility] 00:00:00 [facility] Hep B, Adol or Pedi 2000-03-21 Completed [facility] Dosage 00:00:00 [facility] HIB 4 Dose Schedule 2000-03-21 Completed [facility] 00:00:00 [facility] DTaP, Unspecified 1999 Completed [facility] 00:00:00 [facility] Hep B, Adol or Pedi 1999 Completed [facility] Dosage 00:00:00 [facility] HIB 4 Dose Schedule 1999 Completed [facility] 00:00:00 [facility] IPV 1999 Completed [facility] 00:00:00 [facility] DTaP, Unspecified 1999 Completed [facility] 00:00:00 [facility] Hep B, Adol or Pedi 1999 Completed [facility] Dosage 00:00:00 [facility] HIB 4 Dose Schedule 1999 Completed [facility] 00:00:00 [facility] IPV 1999 Completed [facility] 00:00:00 [facility] DTaP, Unspecified 1999 Completed [facility] Form[facility] 00:00:00 [facility] Hep B, Adol or Pedi 1999 Completed [facility] Dosage 00:00:00 [facility] HIB 4 Dose Schedule 1999 Completed [facility] 00:00:00 [facility] IPV 1999 Completed [facility] 00:00:00 [facility] DTaP, Unspecified 1999 Completed [facility] 00:00:00 [facility] Hep B, Adol or Pedi 1999 Completed [facility] Dosage 00:00:00 [facility] HIB 4 Dose Schedule 1999 Completed [facility] 00:00:00 [facility] IPV 1999 Completed [facility] 00:00:00 [facility] DTaP, Unspecified 1999 Completed [facility] 00:00:00 [facility] Hep B, Adol or Pedi 1999 Completed [facility] Dosage 00:00:00 [facility] HIB 4 Dose Schedule 1999 Completed [facility] 00:00:00 [facility] IPV 1999 Completed [facility] 00:00:00 [facility] DTaP, Unspecified 1999 Completed [facility] 00:00:00 [facility] Hep B, Adol or Pedi 1999 Completed [facility] Dosage 00:00:00 [facility] HIB 4 Dose Schedule 1999 Completed [facility] 00:00:00 [facility] IPV 1999 Completed [facility] 00:00:00 [facility] DTaP, Unspecified 1999 Completed [facility] 00:00:00 [facility] Hep B, Adol or Pedi 1999 Completed [facility] Dosage 00:00:00 [facility] HIB 4 Dose Schedule 1999 Completed [facility] 00:00:00 [facility] IPV 1999 Completed [facility] 00:00:00 [facility] DTaP, Unspecified 1999 Completed [facility] 00:00:00 [facility] Hep B, Adol or Pedi 1999 Completed [facility] Dosage 00:00:00 [facility] HIB 4 Dose Schedule 1999 Completed [facility] 00:00:00 [facility] IPV 1999 Completed [facility] 00:00:00 [facility] DTaP, Unspecified 1999 Completed [facility] Formulation 00:00:00 [facility] Hep B, Adol or Pedi 1999 Completed [facility] Dosage 00:00:00 [facility] HIB 4 Dose Schedule 1999 Completed [facility] 00:00:00 [facility] IPV 1999 Completed [facility] 00:00:00 [facility] DTaP, Unspecified 1999 Completed [facility] 00:00:00 [facility] Hep B, Adol or Pedi 1999 Completed [facility] Dosage 00:00:00 [facility] HIB 4 Dose Schedule 1999 Completed [facility] 00:00:00 [facility] IPV 1999 Completed [facility] 00:00:00 [facility] DTaP, Unspecified 1999 Completed [facility] 00:00:00 [facility] Hep B, Adol or Pedi 1999 Completed [facility] Dosage 00:00:00 [facility] HIB 4 Dose Schedule 1999 Completed [facility] 00:00:00 [facility] IPV 1999 Completed [facility] 00:00:00 [facility] DTaP, Unspecified 1999 Completed [facility] 00:00:00 [facility] Hep B, Adol or Pedi 1999 Completed [facility] Dosage 00:00:00 [facility] HIB 4 Dose Schedule 1999 Completed [facility] 00:00:00 [facility] IPV 1999 Completed [facility] 00:00:00 [facility] DTaP, Unspecified 1999 Completed [facility] Form[facility] 00:00:00 [facility] Hep B, Adol or Pedi 1999 Completed [facility] Dosage 00:00:00 [facility] HIB 4 Dose Schedule 1999 Completed [facility] 00:00:00 [facility] IPV 1999 Completed [facility] 00:00:00 [facility] DTaP, Unspecified 1999 Completed [facility] 00:00:00 [facility] Hep B, Adol or Pedi 1999 Completed [facility] Dosage 00:00:00 [facility] HIB 4 Dose Schedule 1999 Completed [facility] 00:00:00 [facility] IPV 1999 Completed [facility] 00:00:00 [facility] DTaP, Unspecified 1999 Completed [facility] 00:00:00 [facility] Hep B, Adol or Pedi 1999 Completed [facility] Dosage 00:00:00 [facility] HIB 4 Dose Schedule 1999 Completed [facility] 00:00:00 [facility] IPV 1999 Completed [facility] 00:00:00 [facility] DTaP, Unspecified 1999 Completed [facility] 00:00:00 [facility] Hep B, Adol or Pedi 1999 Completed [facility] Dosage 00:00:00 [facility] HIB 4 Dose Schedule 1999 Completed [facility] 00:00:00 [facility] IPV 1999 Completed [facility] 00:00:00 [facility] DTaP, Unspecified 1999 Completed [facility] 00:00:00 [facility] Hep B, Adol or Pedi 1999 Completed [facility] Dosage 00:00:00 [facility] HIB 4 Dose Schedule 1999 Completed [facility] 00:00:00 [facility] IPV 1999 Completed [facility] 00:00:00 [facility] DTaP, Unspecified 1999 Completed [facility] 00:00:00 [facility] Hep B, Adol or Pedi 1999 Completed [facility] Dosage 00:00:00 [facility] HIB 4 Dose Schedule 1999 Completed [facility] 00:00:00 [facility] IPV 1999 Completed [facility] 00:00:00 [facility] DTaP, Unspecified 1999 Completed [facility] 00:00:00 [facility] Hep B, Adol or Pedi 1999 Completed [facility] Dosage 00:00:00 [facility] HIB 4 Dose Schedule 1999 Completed [facility] 00:00:00 [facility] IPV 1999 Completed [facility] 00:00:00 [facility] DTaP, Unspecified 1999 Completed [facility] 00:00:00 [facility] Hep B, Adol or Pedi 1999 Completed [facility] Dosage 00:00:00 [facility] HIB 4 Dose Schedule 1999 Completed [facility] 00:00:00 [facility] IPV 1999 Completed [facility] 00:00:00 [facility] DTaP, Unspecified 1999 Completed [facility] 00:00:00 [facility] Hep B, Adol or Pedi 1999 Completed [facility] Dosage 00:00:00 [facility] HIB 4 Dose Schedule 1999 Completed [facility] 00:00:00 [facility] IPV 1999 Completed [facility] 00:00:00 [facility] DTaP, Unspecified 1999 Completed [facility] 00:00:00 [facility] Hep B, Adol or Pedi 1999 Completed [facility] Dosage 00:00:00 [facility] HIB 4 Dose Schedule 1999 Completed [facility] 00:00:00 [facility] IPV 1999 Completed [facility] 00:00:00 [facility] DTaP, Unspecified 1999 Completed [facility] Form[facility] 00:00:00 [facility] Hep B, Adol or Pedi 1999 Completed [facility] Dosage 00:00:00 [facility] HIB 4 Dose Schedule 1999 Completed [facility] 00:00:00 [facility] IPV 1999 Completed [facility] 00:00:00 [facility] DTaP, Unspecified 1999 Completed [facility] 00:00:00 [facility] Hep B, Adol or Pedi 1999 Completed [facility] Dosage 00:00:00 [facility] HIB 4 Dose Schedule 1999 Completed [facility] 00:00:00 [facility] IPV 1999 Completed [facility] 00:00:00 [facility] DTaP, Unspecified 1999 Completed [facility] 00:00:00 [facility] Hep B, Adol or Pedi 1999 Completed [facility] Dosage 00:00:00 [facility] HIB 4 Dose Schedule 1999 Completed [facility] 00:00:00 [facility] IPV 1999 Completed [facility] 00:00:00 [facility] DTaP, Unspecified 1999 Completed [facility] 00:00:00 [facility] Hep B, Adol or Pedi 1999 Completed [facility] Dosage 00:00:00 [facility] HIB 4 Dose Schedule 1999 Completed [facility] 00:00:00 [facility] IPV 1999 Completed [facility] 00:00:00 [facility] DTaP, Unspecified 1999 Completed [facility] 00:00:00 [facility] Hep B, Adol or Pedi 1999 Completed [facility] Dosage 00:00:00 [facility] HIB 4 Dose Schedule 1999 Completed [facility] 00:00:00 [facility] IPV 1999 Completed [facility] 00:00:00 [facility] DTaP, Unspecified 1999 Completed [facility] 00:00:00 [facility] Hep B, Adol or Pedi 1999 Completed [facility] Dosage 00:00:00 [facility] HIB 4 Dose Schedule 1999 Completed [facility] 00:00:00 [facility] IPV 1999 Completed [facility] 00:00:00 [facility] DTaP, Unspecified 1999 Completed [facility] 00:00:00 [facility] Hep B, Adol or Pedi 1999 Completed [facility] Dosage 00:00:00 [facility] HIB 4 Dose Schedule 1999 Completed [facility] 00:00:00 [facility] IPV 1999 Completed [facility] 00:00:00 [facility] DTaP, Unspecified 1999 Completed [facility] 00:00:00 [facility] Hep B, Adol or Pedi 1999 Completed [facility] Dosage 00:00:00 [facility] HIB 4 Dose Schedule 1999 Completed [facility] 00:00:00 [facility] IPV 1999 Completed [facility] 00:00:00 [facility] DTaP, Unspecified 1999 Completed [facility] 00:00:00 [facility] Hep B, Adol or Pedi 1999 Completed [facility] Dosage 00:00:00 [facility] HIB 4 Dose Schedule 1999 Completed [facility] 00:00:00 [facility] IPV 1999 Completed [facility] 00:00:00 [facility] DTaP, Unspecified 1999 Completed [facility] 00:00:00 [facility] Hep B, Adol or Pedi 1999 Completed [facility] Dosage 00:00:00 [facility] HIB 4 Dose Schedule 1999 Completed [facility] 00:00:00 [facility] IPV 1999 Completed [facility] 00:00:00 [facility] DTaP, Unspecified 1999 Completed [facility] 00:00:00 [facility] Hep B, Adol or Pedi 1999 Completed [facility] Dosage 00:00:00 [facility] HIB 4 Dose Schedule 1999 Completed [facility] 00:00:00 [facility] IPV 1999 Completed [facility] 00:00:00 [facility] DTaP, Unspecified 1999 Completed [facility] 00:00:00 [facility] Hep B, Adol or Pedi 1999 Completed [facility] Dosage 00:00:00 [facility] HIB 4 Dose Schedule 1999 Completed [facility] 00:00:00 [facility] IPV 1999 Completed [facility] 00:00:00 [facility] DTaP, Unspecified 1999 Completed [facility] Form[facility] 00:00:00 [facility] Hep B, Adol or Pedi 1999 Completed [facility] Dosage 00:00:00 [facility] HIB 4 Dose Schedule 1999 Completed [facility] 00:00:00 [facility] IPV 1999 Completed [facility] 00:00:00 [facility] DTaP, Unspecified 1999 Completed [facility] 00:00:00 [facility] Hep B, Adol or Pedi 1999 Completed [facility] Dosage 00:00:00 [facility] HIB 4 Dose Schedule 1999 Completed [facility] 00:00:00 [facility] IPV 1999 Completed [facility] 00:00:00 [facility] DTaP, Unspecified 1999 Completed [facility] 00:00:00 [facility] Hep B, Adol or Pedi 1999 Completed [facility] Dosage 00:00:00 [facility] HIB 4 Dose Schedule 1999 Completed [facility] 00:00:00 [facility] IPV 1999 Completed [facility] 00:00:00 [facility] DTaP, Unspecified 1999 Completed [facility] 00:00:00 [facility] Hep B, Adol or Pedi 1999 Completed [facility] Dosage 00:00:00 [facility] HIB 4 Dose Schedule 1999 Completed [facility] 00:00:00 [facility] IPV 1999 Completed [facility] 00:00:00 [facility] DTaP, Unspecified 1999 Completed [facility] 00:00:00 [facility] Hep B, Adol or Pedi 1999 Completed [facility] Dosage 00:00:00 [facility] HIB 4 Dose Schedule 1999 Completed [facility] 00:00:00 [facility] IPV 1999 Completed [facility] 00:00:00 [facility] DTaP, Unspecified 1999 Completed [facility] 00:00:00 [facility] Hep B, Adol or Pedi 1999 Completed [facility] Dosage 00:00:00 [facility] HIB 4 Dose Schedule 1999 Completed [facility] 00:00:00 [facility] IPV 1999 Completed [facility] 00:00:00 [facility] DTaP, Unspecified 1999 Completed [facility] 00:00:00 [facility] Hep B, Adol or Pedi 1999 Completed [facility] Dosage 00:00:00 [facility] HIB 4 Dose Schedule 1999 Completed [facility] 00:00:00 [facility] IPV 1999 Completed [facility] 00:00:00 [facility] DTaP, Unspecified 1999 Completed [facility] 00:00:00 [facility] Hep B, Adol or Pedi 1999 Completed [facility] Dosage 00:00:00 [facility] HIB 4 Dose Schedule 1999 Completed [facility] 00:00:00 [facility] IPV 1999 Completed [facility] 00:00:00 [facility] DTaP, Unspecified 1999 Completed [facility] 00:00:00 [facility] Hep B, Adol or Pedi 1999 Completed [facility] Dosage 00:00:00 [facility] HIB 4 Dose Schedule 1999 Completed [facility] 00:00:00 [facility] IPV 1999 Completed [facility] 00:00:00 [facility] DTaP, Unspecified 1999 Completed [facility] 00:00:00 [facility] Hep B, Adol or Pedi 1999 Completed [facility] Dosage 00:00:00 [facility] HIB 4 Dose Schedule 1999 Completed [facility] 00:00:00 [facility] IPV 1999 Completed [facility] 00:00:00 [facility] DTaP, Unspecified 1999 Completed [facility] 00:00:00 [facility] Hep B, Adol or Pedi 1999 Completed [facility] Dosage 00:00:00 [facility] HIB 4 Dose Schedule 1999 Completed [facility] 00:00:00 [facility] IPV 1999 Completed [facility] 00:00:00 [facility] DTaP, Unspecified 1999 Completed [facility] 00:00:00 [facility] Hep B, Adol or Pedi 1999 Completed [facility] Dosage 00:00:00 [facility] HIB 4 Dose Schedule 1999 Completed [facility] 00:00:00 [facility] IPV 1999 Completed [facility] 00:00:00 [facility] DTaP, Unspecified 1999 Completed [facility] 00:00:00 [facility] Hep B, Adol or Pedi 1999 Completed [facility] Dosage 00:00:00 [facility] HIB 4 Dose Schedule 1999 Completed [facility] 00:00:00 [facility] IPV 1999 Completed [facility] 00:00:00 [facility] DTaP, Unspecified 1999 Completed [facility] 00:00:00 [facility] Hep B, Adol or Pedi 1999 Completed [facility] Dosage 00:00:00 [facility] HIB 4 Dose Schedule 1999 Completed [facility] 00:00:00 [facility] IPV 1999 Completed [facility] 00:00:00 [facility] DTaP, Unspecified 1999 Completed [facility] 00:00:00 [facility] Hep B, Adol or Pedi 1999 Completed [facility] Dosage 00:00:00 [facility] HIB 4 Dose Schedule 1999 Completed [facility] 00:00:00 [facility] IPV 1999 Completed [facility] 00:00:00 [facility] DTaP, Unspecified 1999 Completed [facility] 00:00:00 [facility] Hep B, Adol or Pedi 1999 Completed [facility] Dosage 00:00:00 [facility] HIB 4 Dose Schedule 1999 Completed [facility] 00:00:00 [facility] IPV 1999 Completed [facility] 00:00:00 [facility] DTaP, Unspecified 1999 Completed [facility] 00:00:00 [facility] Hep B, Adol or Pedi 1999 Completed [facility] Dosage 00:00:00 [facility] HIB 4 Dose Schedule 1999 Completed [facility] 00:00:00 [facility] IPV 1999 Completed [facility] 00:00:00 [facility] DTaP, Unspecified 1999 Completed [facility] 00:00:00 [facility] Hep B, Adol or Pedi 1999 Completed [facility] Dosage 00:00:00 [facility] HIB 4 Dose Schedule 1999 Completed [facility] 00:00:00 [facility] IPV 1999 Completed [facility] 00:00:00 [facility] DTaP, Unspecified 1999 Completed [facility] 00:00:00 [facility] Hep B, Adol or Pedi 1999 Completed [facility] Dosage 00:00:00 [facility] HIB 4 Dose Schedule 1999 Completed [facility] 00:00:00 [facility] IPV 1999 Completed [facility] 00:00:00 [facility] DTaP, Unspecified 1999 Completed [facility] 00:00:00 [facility] Hep B, Adol or Pedi 1999 Completed [facility] Dosage 00:00:00 [facility] HIB 4 Dose Schedule 1999 Completed [facility] 00:00:00 [facility] IPV 1999 Completed [facility] 00:00:00 [facility] DTaP, Unspecified 1999 Completed [facility] 00:00:00 [facility] Hep B, Adol or Pedi 1999 Completed [facility] Dosage 00:00:00 [facility] HIB 4 Dose Schedule 1999 Completed [facility] 00:00:00 [facility] IPV 1999 Completed [facility] 00:00:00 [facility] DTaP, Unspecified 1999 Completed [facility] 00:00:00 [facility] Hep B, Adol or Pedi 1999 Completed [facility] Dosage 00:00:00 [facility] HIB 4 Dose Schedule 1999 Completed [facility] 00:00:00 [facility] IPV 1999 Completed [facility] 00:00:00 [facility] DTaP, Unspecified 1999 Completed [facility] 00:00:00 [facility] Hep B, Adol or Pedi 1999 Completed [facility] Dosage 00:00:00 [facility] HIB 4 Dose Schedule 1999 Completed [facility] 00:00:00 [facility] IPV 1999 Completed [facility] 00:00:00 [facility] DTaP, Unspecified 1999 Completed [facility] 00:00:00 [facility] Hep B, Adol or Pedi 1999 Completed [facility] Dosage 00:00:00 [facility] HIB 4 Dose Schedule 1999 Completed [facility] 00:00:00 [facility] IPV 1999 Completed [facility] 00:00:00 [facility] DTaP, Unspecified 1999 Completed [facility] Form[facility] 00:00:00 [facility] Hep B, Adol or Pedi 1999 Completed [facility] Dosage 00:00:00 [facility] HIB 4 Dose Schedule 1999 Completed [facility] 00:00:00 [facility] IPV 1999 Completed [facility] 00:00:00 [facility] DTaP, Unspecified 1999 Completed [facility] 00:00:00 [facility] Hep B, Adol or Pedi 1999 Completed [facility] Dosage 00:00:00 [facility] HIB 4 Dose Schedule 1999 Completed [facility] 00:00:00 [facility] IPV 1999 Completed [facility] 00:00:00 [facility] DTaP, Unspecified 1999 Completed [facility] Form[facility] 00:00:00 [facility] Hep B, Adol or Pedi 1999 Completed [facility] Dosage 00:00:00 [facility] HIB 4 Dose Schedule 1999 Completed [facility] 00:00:00 [facility] IPV 1999 Completed [facility] 00:00:00 [facility] DTaP, Unspecified 1999 Completed [facility] Form[facility] 00:00:00 [facility] Hep B, Adol or Pedi 1999 Completed [facility] Dosage 00:00:00 [facility] HIB 4 Dose Schedule 1999 Completed [facility] 00:00:00 [facility] IPV 1999 Completed [facility] 00:00:00 [facility] DTaP, Unspecified 1999 Completed [facility] 00:00:00 [facility] Hep B, Adol or Pedi 1999 Completed [facility] Dosage 00:00:00 [facility] HIB 4 Dose Schedule 1999 Completed [facility] 00:00:00 [facility] IPV 1999 Completed [facility] 00:00:00 [facility] DTaP, Unspecified 1999 Completed [facility] Form[facility] 00:00:00 [facility] Hep B, Adol or Pedi 1999 Completed [facility] Dosage 00:00:00 [facility] HIB 4 Dose Schedule 1999 Completed [facility] 00:00:00 [facility] IPV 1999 Completed [facility] 00:00:00 [facility] DTaP, Unspecified 1999 Completed [facility] 00:00:00 [facility] Hep B, Adol or Pedi 1999 Completed [facility] Dosage 00:00:00 [facility] HIB 4 Dose Schedule 1999 Completed [facility] 00:00:00 [facility] IPV 1999 Completed [facility] 00:00:00 [facility] DTaP, Unspecified 1999 Completed [facility] 00:00:00 [facility] Hep B, Adol or Pedi 1999 Completed [facility] Dosage 00:00:00 [facility] HIB 4 Dose Schedule 1999 Completed [facility] 00:00:00 [facility] IPV 1999 Completed [facility] 00:00:00 [facility] DTaP, Unspecified 1999 Completed [facility] 00:00:00 [facility] Hep B, Adol or Pedi 1999 [...] 1999 Completed [facility] Dosage 00:00:00 [facility] HIB 4 Dose Schedule 1999 Completed [facility] 00:00:00 [facility] IPV 1999 Completed [facility] 00:00:00 [facility] DTaP, Unspecified 1999 Completed [facility] 00:00:00 [facility] Hep B, Adol or Pedi 1999 Completed [facility] Dosage 00:00:00 [facility] HIB 4 Dose Schedule 1999 Completed [facility] 00:00:00 [facility] IPV 1999 Completed [facility] 00:00:00 [facility] DTaP, Unspecified 1999 Completed [facility] 00:00:00 [facility] Hep B, Adol or Pedi 1999 Completed [facility] Dosage 00:00:00 [facility] HIB 4 Dose Schedule 1999 Completed [facility] 00:00:00 [facility] IPV 1999 Completed [facility] 00:00:00 [facility] DTaP, Unspecified 1999 Completed [facility] 00:00:00 [facility] Hep B, Adol or Pedi 1999 Completed [facility] Dosage 00:00:00 [facility] HIB 4 Dose Schedule 1999 Completed [facility] 00:00:00 [facility] IPV 1999 Completed [facility] 00:00:00 [facility] DTaP, Unspecified 1999 Completed [facility] 00:00:00 [facility] Hep B, Adol or Pedi 1999 Completed [facility] Dosage 00:00:00 [facility] HIB 4 Dose Schedule 1999 Completed [facility] 00:00:00 [facility] IPV 1999 Completed [facility] 00:00:00 [facility] DTaP, Unspecified 1999 Completed [facility] 00:00:00 [facility] Hep B, Adol or Pedi 1999 Completed [facility] Dosage 00:00:00 [facility] HIB 4 Dose Schedule 1999 Completed [facility] 00:00:00 [facility] IPV 1999 Completed [facility] 00:00:00 [facility] DTaP, Unspecified 1999 Completed [facility] 00:00:00 [facility] Hep B, Adol or Pedi 1999 Completed [facility] Dosage 00:00:00 [facility] HIB 4 Dose Schedule 1999 Completed [facility] 00:00:00 [facility] IPV 1999 Completed [facility] 00:00:00 [facility] DTaP, Unspecified 1999 Completed [facility] 00:00:00 [facility] Hep B, Adol or Pedi 1999 Completed [facility] Dosage 00:00:00 [facility] HIB 4 Dose Schedule 1999 Completed [facility] 00:00:00 [facility] IPV 1999 Completed [facility] 00:00:00 [facility] DTaP, Unspecified 1999 Completed [facility] 00:00:00 [facility] Hep B, Adol or Pedi 1999 Completed [facility] Dosage 00:00:00 [facility] HIB 4 Dose Schedule 1999 Completed [facility] 00:00:00 [facility] IPV 1999 Completed [facility] 00:00:00 [facility] DTaP, Unspecified 1999 Completed [facility] 00:00:00 [facility] Hep B, Adol or Pedi 1999 Completed [facility] Dosage 00:00:00 [facility] HIB 4 Dose Schedule 1999 Completed [facility] rsity of 00:00:00 [facility] IPV 1999 Completed [facility] 00:00:00 [facility] DTaP, Unspecified 1999 Completed [facility] ity of Formulation 00:00:00 [facility] Hep B, Adol or Pedi 1999 Completed Unive rsity of Dosage 00:00:00 [facility] HIB 4 Dose Schedule 1999 Completed [facility]ive [facility]ity of 00:00:00 [facility] IPV 1999 Completed [facility] 00:00:00 [facility] DTaP, Unspecified 1999 Completed [facility] Formulation 00:00:00 [facility] Hep B, Adol or Pedi 1999 Completed Unive rsity of Dosage 00:00:00 [facility] HIB 4 Dose Schedule 1999 Completed [facility]ive [facility]ity of 00:00:00 [facility] IPV 1999 Completed [facility] 00:00:00 [facility] DTaP, Unspecified 1999 Completed [facility] Formulation 00:00:00 [facility] Hep B, Adol or Pedi 1999 Completed Unive rsity of Dosage 00:00:00 [facility] HIB 4 Dose Schedule 1999 Completed Unive rsity of 00:00:00 [facility] IPV 1999 Completed [facility] 00:00:00 [facility] DTaP, Unspecified 1999 Completed [facility] Formulation 00:00:00 [facility] Hep B, Adol or Pedi 1999 Completed Unive rsity of Dosage 00:00:00 [facility] HIB 4 Dose Schedule 1999 Completed [facility]ive rsity of 00:00:00 [facility] IPV 1999 Completed [facility] 00:00:00 [facility] DTaP, Unspecified 1999 Completed [facility] Formulation 00:00:00 [facility] Hep B, Adol or Pedi 1999 Completed [facility]ive rsity of Dosage 00:00:00 [facility] HIB 4 Dose Schedule 1999 Completed [facility]ive [facility]ity of 00:00:00 [facility] IPV 1999 Completed [facility] 00:00:00 [facility] DTaP, Unspecified 1999 Completed [facility] Formulation 00:00:00 [facility] Hep B, Adol or Pedi 1999 Completed Unive [facility]ity of Dosage 00:00:00 [facility] HIB 4 Dose Schedule 1999 Completed [facility]ive [facility]ity of 00:00:00 [facility] IPV 1999 Completed [facility] 00:00:00 [facility] DTaP, Unspecified 1999 Completed [facility] Formulation 00:00:00 [facility] Hep B, Adol or Pedi 1999 Completed [facility]ive rsity of Dosage 00:00:00 [facility] HIB 4 Dose Schedule 1999 Completed [facility]ive [facility]ity of 00:00:00 [facility] IPV 1999 Completed [facility] 00:00:00 [facility] DTaP, Unspecified 1999 Completed [facility] Formulation 00:00:00 [facility] Hep B, Adol or Pedi 1999 Completed [facility]ive rsity of Dosage 00:00:00 [facility] HIB 4 Dose Schedule 1999 Completed [facility]ive [facility]ity of 00:00:00 [facility] IPV 1999 Completed [facility] 00:00:00 [facility] DTaP, Unspecified 1999 Completed [facility] Formulation 00:00:00 [facility] Hep B, Adol or Pedi 1999 Completed Unive rsity of Dosage 00:00:00 [facility] HIB 4 Dose Schedule 1999 Completed [facility]ive [facility]ity of 00:00:00 [facility] IPV 1999 Completed [facility] 00:00:00 [facility] DTaP, Unspecified 1999 Completed [facility] Formulation 00:00:00 [facility] Hep B, Adol or Pedi 1999 Completed [facility]ive rsity of Dosage 00:00:00 [facility] HIB 4 Dose Schedule 1999 Completed [facility]ive rsity of 00:00:00 [facility] IPV 1999 Completed [facility] 00:00:00 [facility] DTaP, Unspecified 1999 Completed [facility] Formulation 00:00:00 [facility] Hep B, Adol or Pedi 1999 Completed [facility]ive rsity of Dosage 00:00:00 [facility] HIB 4 Dose Schedule 1999 Completed [facility]ive [facility]ity of 00:00:00 [facility] IPV 1999 Completed [facility] 00:00:00 [facility] DTaP, Unspecified 1999 Completed [facility] Formulation 00:00:00 [facility] Hep B, Adol or Pedi 1999 Completed [facility]ive [facility]ity of Dosage 00:00:00 [facility] HIB 4 Dose Schedule 1999 Completed [facility]ive [facility]ity of 00:00:00 [facility] IPV 1999 Completed [facility] 00:00:00 [facility] DTaP, Unspecified 1999 Completed [facility] Formulation 00:00:00 [facility] Hep B, Adol or Pedi 1999 Completed [facility]ive rsity of Dosage 00:00:00 [facility] HIB 4 Dose Schedule 1999 Completed [facility]ive rsity of 00:00:00 [facility] IPV 1999 Completed [facility] 00:00:00 [facility] DTaP, Unspecified 1999 Completed [facility] Formulation 00:00:00 [facility] Hep B, Adol or Pedi 1999 Completed Unive [facility]ity of Dosage 00:00:00 [facility] HIB 4 Dose Schedule 1999 Completed Unive rsity of 00:00:00 [facility] IPV 1999 Completed [facility] 00:00:00 [facility] DTaP, Unspecified 1999 Completed [facility] Formulation 00:00:00 [facility] Hep B, Adol or Pedi 1999 Completed [facility]ive [facility]ity of Dosage 00:00:00 [facility] HIB 4 Dose Schedule 1999 Completed Unive rsity of 00:00:00 [facility] IPV 1999 Completed [facility] 00:00:00 [facility] DTaP, Unspecified 1999 Completed [facility] Formulation 00:00:00 [facility] Hep B, Adol or Pedi 1999 Completed [facility]ive rsity of Dosage 00:00:00 [facility] HIB 4 Dose Schedule 1999 Completed [facility]ive rsity of 00:00:00 [facility] IPV 1999 Completed [facility] 00:00:00 [facility] DTaP, Unspecified 1999 Completed [facility] Formulation 00:00:00 [facility] Hep B, Adol or Pedi 1999 Completed [facility]ive rsity of Dosage 00:00:00 [facility] HIB 4 Dose Schedule 1999 Completed [facility]ive rsity of 00:00:00 [facility] IPV 1999 Completed [facility] 00:00:00 [facility] DTaP, Unspecified 1999 Completed [facility] Formulation 00:00:00 [facility] Hep B, Adol or Pedi 1999 Completed [facility]ive [facility]ity of Dosage 00:00:00 [facility] HIB 4 Dose Schedule 1999 Completed [facility]ive rsity of 00:00:00 [facility] IPV 1999 Completed [facility] 00:00:00 [facility] DTaP, Unspecified 1999 Completed [facility] Formulation 00:00:00 [facility] Hep B, Adol or Pedi 1999 Completed Unive rsity of Dosage 00:00:00 [facility] HIB 4 Dose Schedule 1999 Completed [facility]ive rsity of 00:00:00 [facility] IPV 1999 Completed [facility] 00:00:00 [facility] DTaP, Unspecified 1999 Completed [facility] Formulation 00:00:00 [facility] Hep B, Adol or Pedi 1999 Completed Unive rsity of Dosage 00:00:00 [facility] HIB 4 Dose Schedule 1999 Completed [facility]ive rsity of 00:00:00 [facility] IPV 1999 Completed [facility] 00:00:00 [facility] DTaP, Unspecified 1999 Completed [facility] Formulation 00:00:00 [facility] Hep B, Adol or Pedi 1999 Completed Unive rsity of Dosage 00:00:00 [facility] HIB 4 Dose Schedule 1999 Completed [facility]ive rsity of 00:00:00 [facility] IPV 1999 Completed [facility] 00:00:00 [facility] DTaP, Unspecified 1999 Completed [facility] Formulation 00:00:00 [facility] Hep B, Adol or Pedi 1999 Completed Unive rsity of Dosage 00:00:00 [facility] HIB 4 Dose Schedule 1999 Completed Unive rsity of 00:00:00 [facility] IPV 1999 Completed [facility] 00:00:00 [facility] DTaP, Unspecified 1999 Completed [facility] Formulation 00:00:00 [facility] Hep B, Adol or Pedi 1999 Completed Unive rsity of Dosage 00:00:00 [facility] HIB 4 Dose Schedule 1999 Completed [facility]ive rsity of 00:00:00 [facility] IPV 1999 Completed [facility] 00:00:00 [facility] DTaP, Unspecified 1999 Completed [facility] Formulation 00:00:00 [facility] Hep B, Adol or Pedi 1999 Completed Unive rsity of Dosage 00:00:00 [facility] HIB 4 Dose Schedule 1999 Completed [facility]ive rsity of 00:00:00 [facility] IPV 1999 Completed [facility] 00:00:00 [facility] DTaP, Unspecified 1999 Completed [facility] Formulation 00:00:00 [facility] Hep B, Adol or Pedi 1999 Completed [facility]ive [facility]ity of Dosage 00:00:00 [facility] HIB 4 Dose Schedule 1999 Completed [facility]ive rsity of 00:00:00 [facility] IPV 1999 Completed [facility] 00:00:00 [facility] DTaP, Unspecified 1999 Completed [facility] Formulation 00:00:00 [facility] Hep B, Adol or Pedi 1999 Completed Unive rsity of Dosage 00:00:00 [facility] HIB 4 Dose Schedule 1999 Completed Unive rsity of 00:00:00 [facility] IPV 1999 Completed [facility] 00:00:00 [facility] DTaP, Unspecified 1999 Completed [facility] Formulation 00:00:00 [facility] Hep B, Adol or Pedi 1999 Completed Unive rsity of Dosage 00:00:00 [facility] HIB 4 Dose Schedule 1999 Completed Unive [facility]ity of 00:00:00 [facility] IPV 1999 Completed [facility] 00:00:00 [facility] DTaP, Unspecified 1999 Completed [facility] Formulation 00:00:00 [facility] Hep B, Adol or Pedi 1999 Completed [facility]ive rsity of Dosage 00:00:00 [facility] HIB 4 Dose Schedule 1999 Completed [facility]ive [facility]ity of 00:00:00 [facility] IPV 1999 Completed [facility] 00:00:00 [facility] DTaP, Unspecified 1999 Completed [facility] Formulation 00:00:00 [facility] Hep B, Adol or Pedi 1999 Completed Unive [facility]ity of Dosage 00:00:00 [facility] HIB 4 Dose Schedule 1999 Completed Unive [facility]ity of 00:00:00 [facility] IPV 1999 Completed [facility] 00:00:00 [facility] DTaP, Unspecified 1999 Completed [facility] Formulation 00:00:00 [facility] Hep B, Adol or Pedi 1999 Completed Unive rsity of Dosage 00:00:00 [facility] HIB 4 Dose Schedule 1999 Completed Unive [facility]ity of 00:00:00 [facility] IPV 1999 Completed [facility] 00:00:00 [facility] DTaP, Unspecified 1999 Completed [facility] Formulation 00:00:00 [facility] Hep B, Adol or Pedi 1999 Completed Unive [facility]ity of Dosage 00:00:00 [facility] HIB 4 Dose Schedule 1999 Completed Unive [facility]ity of 00:00:00 [facility] IPV 1999 Completed [facility] 00:00:00 [facility] DTaP, Unspecified 1999 Completed [facility] Formulation 00:00:00 [facility] Hep B, Adol or Pedi 1999 Completed Unive [facility]ity of Dosage 00:00:00 [facility] HIB 4 Dose Schedule 1999 Completed [facility]ive [facility]ity of 00:00:00 [facility] IPV 1999 Completed [facility] 00:00:00 [facility] DTaP, Unspecified 1999 Completed [facility] Formulation 00:00:00 [facility] Hep B, Adol or Pedi 1999 Completed Unive rsity of Dosage 00:00:00 [facility] HIB 4 Dose Schedule 1999 Completed Unive rsity of 00:00:00 [facility] IPV 1999 Completed [facility] 00:00:00 [facility] DTaP, Unspecified 1999 Completed [facility] Formulation 00:00:00 [facility] Hep B, Adol or Pedi 1999 Completed [facility]ive [facility]ity of Dosage 00:00:00 [facility] HIB 4 Dose Schedule 1999 Completed [facility]ive rsity of 00:00:00 [facility] IPV 1999 Completed [facility] 00:00:00 [facility] DTaP, Unspecified 1999 Completed [facility] Formulation 00:00:00 [facility] Hep B, Adol or Pedi 1999 Completed Unive rsity of Dosage 00:00:00 [facility] HIB 4 Dose Schedule 1999 Completed [facility]ive [facility]ity of 00:00:00 [facility] IPV 1999 Completed [facility] 00:00:00 [facility] DTaP, Unspecified 1999 Completed [facility] Formulation 00:00:00 [facility] Hep B, Adol or Pedi 1999 Completed [facility]ive rsity of Dosage 00:00:00 [facility] HIB 4 Dose Schedule 1999 Completed [facility]ive [facility]ity of 00:00:00 [facility] IPV 1999 Completed [facility] 00:00:00 [facility] DTaP, Unspecified 1999 Completed [facility] Formulation 00:00:00 [facility] Hep B, Adol or Pedi 1999 Completed Unive [facility]ity of Dosage 00:00:00 [facility] HIB 4 Dose Schedule 1999 Completed [facility]ive [facility]ity of 00:00:00 [facility] IPV 1999 Completed [facility] 00:00:00 [facility] DTaP, Unspecified 1999 Completed [facility] Formulation 00:00:00 [facility] Hep B, Adol or Pedi 1999 Completed Unive [facility]ity of Dosage 00:00:00 [facility] HIB 4 Dose Schedule 1999 Completed [facility]ive [facility]ity of 00:00:00 [facility] IPV 1999 Completed [facility] 00:00:00 [facility] DTaP, Unspecified 1999 Completed [facility] Formulation 00:00:00 [facility] Hep B, Adol or Pedi 1999 Completed Unive rsity of Dosage 00:00:00 [facility] HIB 4 Dose Schedule 1999 Completed [facility]ive [facility]ity of 00:00:00 [facility] IPV 1999 Completed [facility] 00:00:00 [facility] DTaP, Unspecified 1999 Completed [facility] Formulation 00:00:00 [facility] Hep B, Adol or Pedi 1999 Completed Unive [facility]ity of Dosage 00:00:00 [facility] HIB 4 Dose Schedule 1999 Completed Unive rsity of 00:00:00 [facility] IPV 1999 Completed [facility] 00:00:00 [facility] DTaP, Unspecified 1999 Completed [facility] Formulation 00:00:00 [facility] Hep B, Adol or Pedi 1999 Completed Unive rsity of Dosage 00:00:00 [facility] HIB 4 Dose Schedule 1999 Completed Unive [facility]ity of 00:00:00 [facility] IPV 1999 Completed [facility] 00:00:00 [facility] DTaP, Unspecified 1999 Completed [facility] Formulation 00:00:00 [facility] Hep B, Adol or Pedi 1999 Completed Unive [facility]ity of Dosage 00:00:00 [facility] HIB 4 Dose Schedule 1999 Completed Unive [facility]ity of 00:00:00 [facility] IPV 1999 Completed [facility] 00:00:00 [facility] DTaP, Unspecified 1999 Completed [facility] Formulation 00:00:00 [facility] Hep B, Adol or Pedi 1999 Completed Unive [facility]ity of Dosage 00:00:00 [facility] HIB 4 Dose Schedule 1999 Completed [facility]ive [facility] of 00:00:00 [facility] IPV 1999 Completed [facility] 00:00:00 [facility] DTaP, Unspecified 1999 Completed [facility] Formulation 00:00:00 [facility] Hep B, Adol or Pedi 1999 Completed Unive rsity of Dosage 00:00:00 [facility] HIB 4 Dose Schedule 1999 Completed [facility]ive [facility]ity of 00:00:00 [facility] IPV 1999 Completed [facility] 00:00:00 [facility] DTaP, Unspecified 1999 Completed [facility] Formulation 00:00:00 [facility] Hep B, Adol or Pedi 1999 Completed Unive [facility]ity of Dosage 00:00:00 [facility] HIB 4 Dose Schedule 1999 Completed Unive rsity of 00:00:00 [facility] IPV 1999 Completed [facility] 00:00:00 [facility] DTaP, Unspecified 1999 Completed [facility] Formulation 00:00:00 [facility] Hep B, Adol or Pedi 1999 Completed Unive rsity of Dosage 00:00:00 [facility] HIB 4 Dose Schedule 1999 Completed Unive rsity of 00:00:00 [facility] IPV 1999 Completed [facility] 00:00:00 [facility] DTaP, Unspecified 1999 Completed [facility] Formulation 00:00:00 [facility] Hep B, Adol or Pedi 1999 Completed Unive rsity of Dosage 00:00:00 [facility] HIB 4 Dose Schedule 1999 Completed [facility]ive [facility]ity of 00:00:00 [facility] IPV 1999 Completed [facility] 00:00:00 [facility] DTaP, Unspecified 1999 Completed [facility] Formulation 00:00:00 [facility] Hep B, Adol or Pedi 1999 Completed Unive rsity of Dosage 00:00:00 [facility] HIB 4 Dose Schedule 1999 Completed Unive [facility]ity of 00:00:00 [facility] IPV 1999 Completed [facility] 00:00:00 [facility] DTaP, Unspecified 1999 Completed [facility] Formulation 00:00:00 [facility] Hep B, Adol or Pedi 1999 Completed Unive rsity of Dosage 00:00:00 [facility] HIB 4 Dose Schedule 1999 Completed Unive [facility]ity of 00:00:00 [facility] IPV 1999 Completed [facility] 00:00:00 [facility] DTaP, Unspecified 1999 Completed [facility] Formulation 00:00:00 [facility] Hep B, Adol or Pedi 1999 Completed Unive rsity of Dosage 00:00:00 [facility] HIB 4 Dose Schedule 1999 Completed [facility]ive [facility]ity of 00:00:00 [facility] IPV 1999 Completed [facility] 00:00:00 [facility] DTaP, Unspecified 1999 Completed [facility] Formulation 00:00:00 [facility] Hep B, Adol or Pedi 1999 Completed Unive [facility]ity of Dosage 00:00:00 [facility] HIB 4 Dose Schedule 1999 Completed [facility]ive [facility]ity of 00:00:00 [facility] IPV 1999 Completed [facility] 00:00:00 [facility] DTaP, Unspecified 1999 Completed [facility] Formulation 00:00:00 [facility] Hep B, Adol or Pedi 1999 Completed [facility]ive rsity of Dosage 00:00:00 [facility] HIB 4 Dose Schedule 1999 Completed [facility]ive [facility]ity of 00:00:00 [facility] IPV 1999 Completed [facility] 00:00:00 [facility] DTaP, Unspecified 1999 Completed [facility] Formulation 00:00:00 [facility] Hep B, Adol or Pedi 1999 Completed [facility]ive rsity of Dosage 00:00:00 [facility] HIB 4 Dose Schedule 1999 Completed [facility]ive [facility]ity of 00:00:00 [facility] IPV 1999 Completed [facility] 00:00:00 [facility] DTaP, Unspecified 1999 Completed [facility] Formulation 00:00:00 [facility] Hep B, Adol or Pedi 1999 Completed [facility]ive [facility]ity of Dosage 00:00:00 [facility] HIB 4 Dose Schedule 1999 Completed Unive [facility]ity of 00:00:00 [facility] IPV 1999 Completed [facility] 00:00:00 [facility] DTaP, Unspecified 1999 Completed [facility] Formulation 00:00:00 [facility] Hep B, Adol or Pedi 1999 Completed Unive rsity of Dosage 00:00:00 [facility] HIB 4 Dose Schedule 1999 Completed [facility]ity of 00:00:00 [facility] IPV 1999 Completed [facility] 00:00:00 [facility] DTaP, Unspecified 1999 Completed [facility] Formulation 00:00:00 [facility] Hep B, Adol or Pedi 1999 Completed [facility]ive [facility]ity of Dosage 00:00:00 [facility] HIB 4 Dose Schedule 1999 Completed [facility]ive [facility]ity of 00:00:00 [facility] IPV 1999 Completed [facility] 00:00:00 [facility] DTaP, Unspecified 1999 Completed [facility] Formulation 00:00:00 [facility] Hep B, Adol or Pedi 1999 Completed [facility]ive [facility]ity of Dosage 00:00:00 [facility] HIB 4 Dose Schedule 1999 Completed [facility]ive [facility]ity of 00:00:00 [facility] IPV 1999 Completed [facility] 00:00:00 [facility] DTaP, Unspecified 1999 Completed [facility] Formulation 00:00:00 [facility] Hep B, Adol or Pedi 1999 Completed [facility]ive [facility]ity of Dosage 00:00:00 [facility] HIB 4 Dose Schedule 1999 Completed [facility]ity of 00:00:00 [facility] IPV 1999 Completed [facility] 00:00:00 [facility] DTaP, Unspecified 1999 Completed [facility] Formulation 00:00:00 [facility] Hep B, Adol or Pedi 1999 Completed [facility] of Dosage 00:00:00 [facility] HIB 4 Dose Schedule 1999 Completed [facility] of 00:00:00 [facility] IPV 1999 Completed [facility] 00:00:00 [facility] DTaP, Unspecified 1999 Completed [facility] Formulation 00:00:00 [facility] Hep B, Adol or Pedi 1999 Completed [facility]ity of Dosage 00:00:00 [facility] HIB 4 Dose Schedule 1999 Completed [facility]ity of 00:00:00 [facility] IPV 1999 Completed [facility] 00:00:00 [facility] DTaP, Unspecified 1999 Completed [facility] Formulation 00:00:00 [facility] Hep B, Adol or Pedi 1999 Completed [facility] of Dosage 00:00:00 [facility] HIB 4 Dose Schedule 1999 Completed [facility]ity of 00:00:00 [facility] IPV 1999 Completed [facility] 00:00:00 [facility] DTaP, Unspecified 1999 Completed [facility] Formulation 00:00:00 [facility] Hep B, Adol or Pedi 1999 Completed [facility]ive [facility]ity of Dosage 00:00:00 [facility] HIB 4 Dose Schedule 1999 Completed [...] 1999 Completed [facility]ity of Dosage 00:00:00 [facility] Hep B, Adol or Pedi 1999 Completed [facility]ive [facility]ity of Dosage 00:00:00 [facility] Hep B, Adol or Pedi 1999 Completed [facility] of Dosage 00:00:00 [facility] Hep B, Adol or Pedi 1999 Completed [facility]ity of Dosage 00:00:00 [facility] Hep B, Adol or Pedi 1999 Completed [facility] of Dosage 00:00:00 [facility] Hep B, Adol or Pedi 1999 Completed [facility] of Dosage 00:00:00 [facility] Hep B, Adol or Pedi 1999 Completed [facility]ity of Dosage 00:00:00 [facility] Hep B, Adol or Pedi 1999 Completed [facility] of Dosage 00:00:00 [facility] Hep B, Adol or Pedi 1999 Completed [facility] of Dosage 00:00:00 [facility] Vital Signs Vital Name Observation Time Observation Value Comments Source Systolic blood 2022-12-06 19:11:00 120 mm[Hg] Univer [facility]ity of pressure [facility] Diastolic blood 2022-12-06 19:11:00 74 mm[Hg] Unive rsity of pressure [facility] Heart rate 2022-12-06 19:11:00 63 /min [facility] Respiratory rate 2022-12-06 19:11:00 16 /[facility] Body height 2022-12-06 19:11:00 154.9 cm [facility] Body weight 2022-12-06 19:11:00 52.617 kg [facility] BMI 2022-12-06 19:11:00 21.92 kg/m2 [facility] Oxygen saturation in 2022-12-06 19:11:00 99 /min [facility] Arterial blood by [facility] Pulse oximetry Branch Systolic blood 2022-11-24 21:17:00 120 mm[Hg] Univer sity of pressure [facility] Diastolic blood 2022-11-24 21:17:00 74 mm[Hg] Unive rsity of pressure [facility] Heart rate 2022-11-24 21:17:00 73 /min [facility] Body temperature 2022-11-24 21:17:00 36.39 [facility] Respiratory rate 2022-11-24 21:17:00 18 /min [facility] Body height 2022-11-24 21:17:00 154.9 cm [facility] Body weight 2022-11-24 21:17:00 54.069 kg [facility] BMI 2022-11-24 21:17:00 22.52 kg/m2 [facility] Oxygen saturation in 2022-11-24 21:17:00 99 /min [facility] blood by [facility] Pulse oximetry Branch Systolic blood 2022-11-18 15:39:00 112 mm[Hg] [facility] Diastolic blood 2022-11-18 15:39:00 74 mm[Hg] [facility] Heart rate 2022-11-18 15:39:00 77 /min [facility] Body temperature 2022-11-18 15:39:00 36.83 Jenni [facility] Body height 2022-11-18 15:39:00 154.9 cm [facility] Body weight 2022-11-18 15:39:00 53.661 kg [facility] BMI 2022-11-18 15:39:00 22.35 kg/m2 [facility] Oxygen saturation in 2022-11-18 15:39:00 97 /min [facility] by [facility] Pulse oximetry Branch Systolic blood 2022-11-04 17:57:00 123 mm[Hg] [facility] Diastolic blood 2022-11-04 17:57:00 75 mm[Hg] [facility] Heart rate 2022-11-04 17:57:00 73 /min [facility] Body temperature 2022-11-04 17:57:00 36.11 Jenni [facility] Respiratory rate 2022-11-04 17:57:00 15 /min [facility] Body height 2022-11-04 17:57:00 154.9 cm [facility] Body weight 2022-11-04 17:57:00 52.844 kg [facility] BMI 2022-11-04 17:57:00 22.01 kg/m2 [facility] Oxygen saturation in 2022-11-04 17:57:00 98 /min [facility] Pulse oximetry Branch Heart rate 2022-10-30 01:56:00 73 /min [facility] Body temperature 2022-10-30 01:56:00 36.67 Jenni [facility] Respiratory rate 2022-10-30 01:56:00 18 /min [facility] Body height 2022-10-30 01:56:00 154.9 cm [facility] ealt Oxygen saturation in 2022-10-30 01:56:00 99 /min [facility] Arterial blood by Pulse oximetry Systolic blood 2022-10-30 01:56:00 121 mm[Hg] [facility] pressure Diastolic blood 2022-10-30 01:56:00 73 mm[Hg] [facility] Heart rate 2022-10-30 01:56:00 73 /min [facility] Body temperature 2022-10-30 01:56:00 36.67 Jenni [facility] Respiratory rate 2022-10-30 01:56:00 18 /min [facility] Body height 2022-10-30 01:56:00 154.9 cm [facility] ealt Oxygen saturation in 2022-10-30 01:56:00 99 /min [facility] Arterial blood by Pulse oximetry Systolic blood 2022-10-30 01:56:00 121 mm[Hg] [facility] pressure Diastolic blood 2022-10-30 01:56:00 73 mm[Hg] [facility] pressure Systolic blood 2022-10-21 20:19:00 119 mm[Hg] [facility] pressure [facility] Diastolic blood 2022-10-21 20:19:00 75 mm[Hg] [facility] Heart rate 2022-10-21 20:19:00 84 /min [facility] Body temperature 2022-10-21 20:19:00 36.33 Jenni [facility] Body height 2022-10-21 20:19:00 154.9 cm [facility] Body weight 2022-10-21 20:19:00 53.071 kg [facility] BMI 2022-10-21 20:19:00 22.11 kg/m2 [facility] Systolic blood 2022-10-19 19:18:00 131 mm[Hg] [facility] Diastolic blood 2022-10-19 19:18:00 81 mm[Hg] [facility] Heart rate 2022-10-19 19:18:00 83 /min [facility] Respiratory rate 2022-10-19 19:18:00 16 /min [facility] Body height 2022-10-19 19:18:00 154.9 cm [facility] Body weight 2022-10-19 19:18:00 53.071 kg [facility] BMI 2022-10-19 19:18:00 22.11 kg/m2 [facility] Oxygen saturation in 2022-10-19 19:18:00 99 /min [facility] Arterial blood by [facility] Pulse oximetry Branch Systolic blood 2022-10-14 15:18:00 108 mm[Hg] [facility] Diastolic blood 2022-10-14 15:18:00 69 mm[Hg] [facility] Heart rate 2022-10-14 15:18:00 65 /min [facility] Body temperature 2022-10-14 15:18:00 36.56 Jenni [facility] Respiratory rate 2022-10-14 15:18:00 17 /min [facility] Body height 2022-10-14 15:18:00 154.9 cm [facility] Body weight 2022-10-14 15:18:00 52.028 kg [facility] BMI 2022-10-14 15:18:00 21.67 kg/m2 [facility] Oxygen saturation in 2022-10-14 15:18:00 98 /min [facility] Systolic blood 2022-10-12 16:52:00 112 mm[Hg] [facility] Diastolic blood 2022-10-12 16:52:00 77 mm[Hg] [facility] Heart rate 2022-10-12 16:52:00 83 /min [facility] Body temperature 2022-10-12 16:52:00 36.44 Jenni [facility] Respiratory rate 2022-10-12 16:52:00 19 /min [facility] Body height 2022-10-12 16:52:00 154.9 cm [facility] Body weight 2022-10-12 16:52:00 52.436 kg [facility] BMI 2022-10-12 16:52:00 21.84 kg/m2 [facility] Oxygen saturation in 2022-10-12 16:52:00 97 /min [facility] by [facility] Pulse oximetry Branch Systolic blood 2022-10-08 01:10:00 119 mm[Hg] [facility] Diastolic blood 2022-10-08 01:10:00 69 mm[Hg] [facility] Heart rate 2022-10-08 01:10:00 111 /min [facility] Body temperature 2022-10-08 01:10:00 36.83 Jenni [facility] Respiratory rate 2022-10-08 01:10:00 17 /min [facility] Body weight 2022-10-08 01:10:00 53.751 kg [facility] BMI 2022-10-08 01:10:00 22.39 kg/m2 [facility] Oxygen saturation in 2022-10-08 01:10:00 98 /min [facility] by [facility] Pulse oximetry Branch Systolic blood 2022-09-16 13:15:00 114 mm[Hg] [facility] Diastolic blood 2022-09-16 13:15:00 69 mm[Hg] [facility] Heart rate 2022-09-16 13:15:00 81 /min [facility] Body temperature 2022-09-16 13:15:00 37.17 Jenni [facility] Respiratory rate 2022-09-16 13:15:00 18 /min [facility] Body height 2022-09-16 13:15:00 154.9 cm [facility] Body weight 2022-09-16 13:15:00 52.617 kg [facility] BMI 2022-09-16 13:15:00 21.92 kg/m2 [facility] Systolic blood 2022-09-13 18:27:00 139 mm[Hg] [facility] Diastolic blood 2022-09-13 18:27:00 67 mm[Hg] [facility] Heart rate 2022-09-13 18:27:00 70 /min [facility] Respiratory rate 2022-09-13 18:27:00 18 /min [facility] Body height 2022-09-13 18:27:00 154.9 cm [facility] Body weight 2022-09-13 18:27:00 53.252 kg [facility] BMI 2022-09-13 18:27:00 22.18 kg/m2 [facility] Oxygen saturation in 2022-09-13 18:27:00 99 /min [facility] [place] [facility] P[facility] Systolic blood 2022-08-26 21:19:19 116 mm[Hg] [facility] Diastolic blood 2022-08-26 21:19:19 75 mm[Hg] [facility] Heart rate 2022-08-26 21:19:19 79 /min [facility] Respiratory rate 2022-08-26 21:19:19 23 /min [facility] Oxygen saturation in 2022-08-26 21:19:19 100 /min [facility] [place] [facility] Pulse o[facility] Body temperature 2022-08-26 18:23:00 36.78 Jenni [facility] Body height 2022-08-26 18:23:00 160 cm [facility] Body weight 2022-08-26 18:23:00 54.432 kg [facility] BMI 2022-08-26 18:23:00 21.26 kg/m2 [facility] Systolic blood 2022-08-12 19:31:00 104 mm[Hg] [facility] Diastolic blood 2022-08-12 19:31:00 71 mm[Hg] [facility] Heart rate 2022-08-12 19:31:00 73 /min [facility] Respiratory rate 2022-08-12 19:31:00 18 /min [facility] Body height 2022-08-12 19:31:00 154.9 cm [facility] Body weight 2022-08-12 19:31:00 54.432 kg [facility] BMI 2022-08-12 19:31:00 22.67 kg/m2 [facility] Oxygen saturation in 2022-08-12 19:31:00 97 /min [facility] [place] [facility] Pulse oxim[facility] Systolic blood 2022-07-01 19:01:00 131 mm[Hg] [facility] Diastolic blood 2022-07-01 19:01:00 77 mm[Hg] [facility] Heart rate 2022-07-01 19:01:00 74 /min [facility] Respiratory rate 2022-07-01 19:01:00 18 /min [facility] Body weight 2022-07-01 19:01:00 53.071 kg [facility] BMI 2022-07-01 19:01:00 22.11 kg/m2 [facility] Oxygen saturation in 2022-07-01 19:01:00 98 /min [facility] [place] [facility] Pulse oximetry [facility] Systolic blood 2022-04-28 20:26:00 122 mm[Hg] [facility] Diastolic blood 2022-04-28 20:26:00 73 mm[Hg] [facility] Heart rate 2022-04-28 20:26:00 92 /min [facility] Body temperature 2022-04-28 20:26:00 36.56 Jenni [facility] Respiratory rate 2022-04-28 20:26:00 18 /min [facility] Body height 2022-04-28 20:26:00 154.9 cm [facility] Body weight 2022-04-28 20:26:00 54.432 kg [facility] BMI 2022-04-28 20:26:00 22.67 kg/m2 [facility] Oxygen saturation in 2022-04-28 20:26:00 99 /min [facility] by [facility] Pulse oximetry Branch Systolic blood 2022-04-21 23:35:00 113 mm[Hg] [facility] Diastolic blood 2022-04-21 23:35:00 73 mm[Hg] [facility] Heart rate 2022-04-21 23:35:00 93 /min [facility] Body temperature 2022-04-21 23:35:00 37.61 Jenni [facility] Respiratory rate 2022-04-21 23:35:00 18 /min [facility] Body height 2022-04-21 23:35:00 154.9 cm [facility] Body weight 2022-04-21 23:35:00 52.617 kg [facility] BMI 2022-04-21 23:35:00 21.92 kg/m2 [facility] Oxygen saturation in 2022-04-21 23:35:00 98 /min [facility] by [facility] Pulse oximetry Branch Systolic blood 2022-04-21 13:32:00 111 mm[Hg] [facility] Diastolic blood 2022-04-21 13:32:00 55 mm[Hg] [facility] Heart rate 2022-04-21 13:32:00 73 /min [facility] Body temperature 2022-04-21 13:32:00 36.72 Jenni [facility] Respiratory rate 2022-04-21 13:32:00 16 /min [facility] Oxygen saturation in 2022-04-21 13:32:00 100 /min [facility] by [facility] Pulse oximetry Branch Body height 2022-04-18 14:40:00 154.9 cm [facility] Body weight 2022-04-18 14:40:00 52.164 kg [facility] BMI 2022-04-18 14:40:00 21.73 kg/m2 [facility] Systolic blood 2022-03-21 21:18:00 104 mm[Hg] [facility] Diastolic blood 2022-03-21 21:18:00 54 mm[Hg] [facility] Heart rate 2022-03-21 21:18:00 71 /min [facility] Body temperature 2022-03-21 21:18:00 36.72 Jenni [facility] Respiratory rate 2022-03-21 21:18:00 14 /min [facility] Oxygen saturation in 2022-03-21 21:18:00 99 /min [facility] by [facility] Pulse oximetry Branch Body weight 2022-03-21 03:13:00 57 kg [facility] BMI 2022-03-21 03:13:00 22.26 kg/m2 [facility] Systolic blood 2022-03-17 20:03:00 125 mm[Hg] [facility] Diastolic blood 2022-03-17 20:03:00 81 mm[Hg] [facility] Heart rate 2022-03-17 20:03:00 85 /min [facility] Body temperature 2022-03-17 20:03:00 37.06 Jenni [facility] Respiratory rate 2022-03-17 20:03:00 18 /min [facility] Oxygen saturation in 2022-03-17 20:03:00 99 /min [facility] by [facility] Pulse oximetry Branch Systolic blood 2022-02-09 16:17:00 [...] 99 /min [facility] [place] [facility] P[facility] o[facility] Systolic blood 2022-01-31 21:12:00 110 mm[Hg] [facility] Diastolic blood 2022-01-31 21:12:00 59 mm[Hg] [facility] Heart rate 2022-01-31 21:12:00 79 /min [facility] Body temperature 2022-01-31 21:12:00 36.33 Jenni [facility] Respiratory rate 2022-01-31 21:12:00 16 /min [facility] Oxygen saturation in 2022-01-31 21:12:00 97 /min [facility] [place] [facility] P[facility] Body height 2022-01-31 02:57:00 154.9 cm [facility] Body weight 2022-01-31 02:57:00 54.432 kg [facility] BMI 2022-01-31 02:57:00 22.67 kg/m2 [facility] Systolic blood 2022-01-28 18:12:00 120 [...] [facility] Pulse oximetry Branch Body temperature 2022-01-28 18:07:00 36.61 Jenni [facility] Body height 2022-01-28 18:07:00 154.9 cm [facility] Body weight 2022-01-28 18:07:00 54.568 kg [facility] BMI 2022-01-28 18:07:00 22.73 kg/m2 [facility] Systolic blood 2022-01-27 19:39:00 120 mm[Hg] [facility] Diastolic blood 2022-01-27 19:39:00 75 mm[Hg] [facility] Heart rate 2022-01-27 19:39:00 78 /min [facility] [place] [facility] [place] Body temperature 2022-01-27 19:39:00 36.78 Jenni [facility] Respiratory rate 2022-01-27 19:39:00 18 /min [facility] Body height 2022-01-27 19:39:00 154.9 cm [facility] Body weight 2022-01-27 19:39:00 54.795 kg [facility] BMI 2022-01-27 19:39:00 22.82 kg/m2 [facility] Oxygen saturation in 2022-01-27 19:39:00 98 /min [facility] by [facility] Pulse oximetry Branch Systolic blood 2021-12-24 20:21:00 107 mm[Hg] [facility] Diastolic blood 2021-12-24 20:21:00 66 mm[Hg] [facility] Heart rate 2021-12-24 20:21:00 73 /min [facility] Body temperature 2021-12-24 20:21:00 36.83 Jenni [facility] Body height 2021-12-24 20:21:00 154.9 cm [facility] Body weight 2021-12-24 20:21:00 54.522 kg [facility] BMI 2021-12-24 20:21:00 22.71 kg/m2 [facility] Oxygen saturation in 2021-12-24 20:21:00 100 /min [facility] [place] [facility] Systolic blood 2022-12-06 19:11:00 120 mm[Hg] [facility] Diastolic blood 2022-12-06 19:11:00 74 mm[Hg] [facility] Heart rate 2022-12-06 19:11:00 63 /min [facility] Respiratory rate 2022-12-06 19:11:00 16 /min [facility] Body height 2022-12-06 19:11:00 154.9 cm [facility] Body weight 2022-12-06 19:11:00 52.617 kg [facility] BMI 2022-12-06 19:11:00 21.92 kg/m2 [facility] Oxygen saturation in 2022-12-06 19:11:00 99 /min [facility] by [facility] Pulse oximetry Branch Body temperature 2022-11-24 21:17:00 36.39 Jenni [facility] Systolic blood 2022-11-18 15:39:00 112 mm[Hg] [facility] Diastolic blood 2022-11-18 15:39:00 74 mm[Hg] [facility] Heart rate 2022-11-18 15:39:00 77 /min [facility] Body temperature 2022-11-18 15:39:00 36.83 Jenni [facility] Body height 2022-11-18 15:39:00 154.9 cm [facility] Body weight 2022-11-18 15:39:00 53.661 kg [facility] BMI 2022-11-18 15:39:00 22.35 kg/m2 [facility] Oxygen saturation in 2022-11-18 15:39:00 97 /min [facility] by [facility] Pulse oximetry Branch Respiratory rate 2022-11-04 17:57:00 15 /min [facility] Systolic blood 2022-10-27 20:36:00 118 mm[Hg] [facility]ity of pressure [facility] Diastolic blood 2022-10-27 20:36:00 67 mm[Hg] [facility]ive rsity of pressure [facility] Heart rate 2022-10-27 20:36:00 88 /min [facility] Respiratory rate 2022-10-27 20:36:00 20 /min [facility] Body height 2022-10-27 20:36:00 154.9 cm [facility] Body weight 2022-10-27 20:36:00 52.481 kg [facility] BMI 2022-10-27 20:36:00 21.86 kg/m2 [facility] Systolic blood 2022-10-26 17:34:00 114 mm[Hg] [facility] pressure Diastolic blood 2022-10-26 17:34:00 77 mm[Hg] [facility] pressure Heart rate 2022-10-26 17:34:00 88 /min [facility] Body temperature 2022-10-26 17:34:00 36.56 Jenni [facility] Body height 2022-10-26 17:34:00 154.9 cm [facility] Body weight 2022-10-26 17:34:00 53.071 kg [facility] BMI 2022-10-26 17:34:00 22.11 kg/m2 [facility] Systolic blood 2022-10-21 20:19:00 119 mm[Hg] [facility]ity of pressure [facility] Diastolic blood 2022-10-21 20:19:00 75 mm[Hg] [facility]ive rsity of pressure [facility] Heart rate 2022-10-21 20:19:00 84 /min [facility] Body temperature 2022-10-21 20:19:00 36.33 Jenni [facility] Body height 2022-10-21 20:19:00 154.9 cm [facility] Body weight 2022-10-21 20:19:00 53.071 kg [facility] BMI 2022-10-21 20:19:00 22.11 kg/m2 [facility] Respiratory rate 2022-10-19 19:18:00 16 /min [facility] Oxygen saturation in 2022-10-19 19:18:00 99 /min [facility] by [facility] Pulse oximetry Branch Systolic blood 2022-10-08 01:10:00 119 mm[Hg] [facility] Diastolic blood 2022-10-08 01:10:00 69 mm[Hg] [facility] Heart rate 2022-10-08 01:10:00 111 /min [facility] Body temperature 2022-10-08 01:10:00 36.83 Jenni [facility] Respiratory rate 2022-10-08 01:10:00 17 /min [facility] Body weight 2022-10-08 01:10:00 53.751 kg [facility] BMI 2022-10-08 01:10:00 22.39 kg/m2 [facility] Oxygen saturation in 2022-10-08 01:10:00 98 /min [facility] by [facility] Pulse oximetry Branch Body height 2022-09-16 13:15:00 154.9 cm [facility] Systolic blood 2022-08-26 21:19:19 116 mm[Hg] [facility] Diastolic blood 2022-08-26 21:19:19 75 mm[Hg] [facility] Heart rate 2022-08-26 21:19:19 79 /min [facility] Respiratory rate 2022-08-26 21:19:19 23 /min [facility] Oxygen saturation in 2022-08-26 21:19:19 100 /min [facility] by [facility] Pulse oximetry Branch Body temperature 2022-08-26 18:23:00 36.78 Jenni [facility] Body height 2022-08-26 18:23:00 160 cm [facility] Body weight 2022-08-26 18:23:00 54.432 kg [facility] BMI 2022-08-26 18:23:00 21.26 kg/m2 [facility] Systolic blood 2022-05-26 20:08:00 123 mm[Hg] [facility]iver [facility]ity of pressure [facility] Diastolic blood 2022-05-26 20:08:00 71 mm[Hg] Unive rsity of pressure [facility] Heart rate 2022-05-26 20:08:00 89 /min [facility] Respiratory rate 2022-05-26 20:08:00 18 /min [facility] 2022-05-26 20:08:00 154.9 cm [facility] Body weight 2022-05-26 20:08:00 52.935 kg [facility] BMI 2022-05-26 20:08:00 22.05 kg/m2 [facility] Body temperature 2022-04-28 20:26:00 36.56 Jenni [facility] Oxygen saturation in 2022-04-28 20:26:00 99 /min [facility] Arterial blood by [facility] Pulse oximetry Branch Procedures Procedure Date / Time Performing Source Performed Clinician MR PELVIS WO CONTRAST 2022-12-06 [facility] 22:48:20 Medical Branch MR ABDOMEN WO CONTRAST 2022-12-06 [facility] 22:46:56 [facility] REFERRAL- REQUEST/RESPONSE 2022-12-01 [facility] [place] [facility] HB ECG ROUTINE & RHYTHM STRIP 2022-11-18 Rosy Riojas [facility] 15:45:28 Medical Branch COMP. METABOLIC PANEL ([id number]) 2022-11-04 [facility] C-REACTIVE PROTEIN 2022-11-04 [facility] 18:58:00 Medical Branch SEDIMENTATION RATE 2022-11-04 [facility] [place] 18:58:00 [facility] US PELVIS COMPLETE NON-OB 2022-11-03 Kavitha Mac [facility] 00:28:00 Medical Branch ALCOHOL, MEDICAL USE ONLY 2022-10-30 Kady Jerome [facility] 03:08:00 CBC/DIFF 2022-10-30 Kady Jerome [facility] 03:08:00 CREATINE KINASE (CK) 2022-10-30 Kady Jerome [facility] 03:08:00 MAGNESIUM 2022-10-30 Kady Jerome [facility] 03:08:00 BETA-HCG, QUALITATIVE 2022-10-30 Kady Jerome [facility]th 03:08:00 COMPREHENSIVE METABOLIC PANEL 2022-10-30 Kady Jerome [facility] 03:08:00 CBC 2022-10-30 Kady Jerome [facility] 03:08:00 CT CHEST PULMONARY ANGIOGRAM 2022-10-14 Alannah Vasquez [facility] 17:21:[address] CHEST PULMONARY ANGIOGRAM 2022-10-14 Alannah Vasquez [facility] 17:21:[address] CHEST EXTERNAL STUDY 2022-10-14 Lily Jon [facility] 17:08:19 DME/SUPPLY JUSTIFICATION 2022-10-14 Doctor Unassigned, [facility] 05:01:00 [place] [facility] PATIENT QUESTIONNAIRE 2022-10-14 [facility] 05:01:00 [place] [facility] PHYSICIAN ORDERS 2022-10-14 Doctor Unassigned, [facility] 05:01:00 [place] [facility] XR CHEST 2 2022-10-12 [facility] exas 18:00:38 Medical Branch XR CHEST 2 2022-10-12 [facility] ex 18:00:38 Medical Branch COVID-19 (MOLECULAR TESTING 2022-10-08 Maggi Emanuel [facility] NUCLEIC ACID AMPLIFICATION) 01:13:00 Med ical Branch LAB ONLY COVID INTERPRETATION 2022-10-08 Maggi Emanuel [facility] 01:13:00 Medical Branch MR CERVICAL SPINE WO CONTRAST 2022-09-30 Thalia Nichole [facility] 16:26:00 Medical Branch MR CERVICAL SPINE WO CONTRAST 2022-09-30 Thalia Nichole [facility] 16:26:00 Medical Branch MR BRAIN WO CONTRAST 2022-09-30 Thalia Nichole [facility] 15:50:00 Medical Branch MR BRAIN WO CONTRAST 2022-09-30 Thalia Nichole [facility] 15:50:00 Medical Branch MRI SPINE EXTERNAL STUDY 2022-09-30 Mandeep Lilyena Tapia [facility] 15:33:37 PATIENT QUESTIONNAIRE 2022-09-30 [facility] 05:01:00 [place] [facility] [place] GC & CHLAMYDIA AMPLIFIED 2022-09-16 Adum, [facility] ASSAY 13:30:00 Medical Branch TRICHOMONAS AMPLIFIED ASSAY 2022-09-16 Adum, [facility] 13:30:00 Medical [place] CONSENT FOR CONTRACEPTION 2022-09-16 Doctor Unassigned, [facility] 05:01:00 [place] [facility] [place] CONSENT FOR CONTRACEPTION 2022-09-16 Doctor Unassigned, [facility] 05:01:00 [place] [facility] POCT TEST 2022-09-16 Ad, [facility] 00:00:00 Medical Branch POCT TEST 2022-09-16 Adum, [facility] 00:00:00 [facility] VITAMIN D, 25-[place] 2022-09-14 [facility] 13:07:00 [facility] CBC WITH DIFF 2022-09-14 [facility] 13:07:00 [facility] COMP. METABOLIC PANEL ([id number]) 2022-09-14 [facility] 13:07[facility]00 [facility] PROTHROMBIN TIME / INR 2022-09-14 Fidel [facility] 13:07:00 [facility] ACTIVATED PARTIAL THRMPLAS 2022-09-14 [facility] KALEB 13:07:00 [facility] SEDIMENTATION RATE 2022-09-14 [facility] 13:07:00 [facility] C-REACTIVE PROTEIN 2022-09-14 [facility] 13:07:00 [facility] KEPPRA (LEVETIRACETAM) 2022-09-14 [facility] 13:07:00 [facility] PHENYTOIN FREE 2022-09-14 [facility], [facility] [place] 13:07:00 Medical Branch URINALYSIS 2022-08-26 Key [place]alls [facility] [place] 19:48:00 Medical Branch POCT TEST 2022-08-26 Key Smalls [address] [facility] [place] 19:48:00 Medical Branch URINALYSIS 2022-08-26 [place]alls [facility] [place] 19:48:00 Medical Branch POCT TEST 2022-08-26 Key Smalls [facility] [place] 19:48:00 Medical Branch XR CHEST 1 VW 2022-08-26 Key Smalls Myra [facility] [place] 19:16:24 Medical Branch XR CHEST 1 VW 2022-08-26 [place]alls [facility] [place] 19:16:24 Medical Branch COMP. METABOLIC PANEL ([id number]) 2022-08-26 Key Smalls Un [facility] 18:52:00 Medical Branch CBC WITH DIFF 2022-08-26 Key Smalls Myra [facility] [place] 18:52:00 Medical Branch CBC WITH DIFF 2022-08-26 Key Smalls [facility] [place] 18:52:00 Medical Branch COMP. METABOLIC PANEL ([id number]) 2022-08-26 Key Smalls [facility] 18:52:00 Medical Branch EMERGENCY SERVICES AGREEMENTS 2022-08-26 Doctor Unassigned, [facility] AND AUTHORIZATIONS 05:01:00 [place] [facility] EMERGENCY DEPARTMENT 2022-08-26 Doctor Unassigned, [facility] DOCUMENTS 05:01:00 [place] [facility] HCV ANTIBODY 2022-08-17 Fidel [facility] exas 12:57:00 Medical Branch VITAMIN D, 25-[place] 2022-08-17 Fidel [facility] 12:57:00 Medical Branch CBC WITH DIFF 2022-08-17 [facility] 12:57[facility] Branch COMP. METABOLIC PANEL ([id number]) 2022-08-17 Axel Parra [facility] 12:57:00 Medical Branch FOLLICLE STIMULATING HORMONE 2022-08-17 Axel Parra [facility] 12:57:00 Medical Branch TESTOSTERONE, FEMALE/CHILDREN 2022-08-17 Axel Parra [facility] 12:57:00 Medical Branch CORTISOL AM 2022-08-17 Axel Parra [facility] exas 12:57:00 Medical Branch GC & CHLAMYDIA AMPLIFIED 2022-08-17 Axel Parra [facility] ASSAY 12:57:00 [facility] VITAMIN B12, LEVEL 2022-08-17 Axel Parra [facility] 12:57:00 [facility] Branch VITAMIN B6, PLASMA 2022-08-17 Axel Parra [facility] 12:57:00 [facility] Branch VITAMIN B1 (THIAMINE), WHOLE 2022-08-17 Axel Parra [facility] BLOOD 12:57:00 [facility] IRON 2022-08-17 Axel Parra [facility] ex 12:57:00 [facility] Branch FERRITIN SERUM 2022-08-17 Axel Parra [facility] 12:57:00 [facility] Branch LUTEINIZING HORMONE SERUM 2022-08-17 Axel Parra [facility] 12:57:00 [facility] Branch VITAMIN B6, PLASMA 2022-08-17 Axel Parra [facility] 12:57:00 [facility] Branch FERRITIN SERUM 2022-08-17 Axel Parra [facility] 12:57:00 Medical Branch CORTISOL AM 2022-08-17 Axel Parra [facility] 12:57:00 [facility] IRON PANEL 2022-08-17 Axel Parra [facility] 12:57:00 [facility] VITAMIN B12, LEVEL 2022-08-17 Axel Parra [facility] 12:57:00 [facility] Branch COMP. METABOLIC PANEL ([id number]) 2022-08-17 Axel Parra [facility] 12:57:00 [facility] Branch FOLLICLE STIMULATING HORMONE 2022-08-17 Axel Parra [facility] 12:57:00 [facility] Branch LUTEINIZING HORMONE SERUM 2022-08-17 Axel Parra [facility] 12:57:00 [facility] Branch CBC WITH DIFF 2022-08-17 Fidel [facility] exas 12:57:00 Medical Branch HCV ANTIBODY 2022-08-17 Axel Parra [facility] exas 12:57:00 Medical Branch GC & CHLAMYDIA AMPLIFIED 2022-08-17 Axel Parra [facility] ASSAY 12:57:00 Medical Branch TESTOSTERONE, FEMALE/CHILDREN 2022-08-17 [facility] 12:57:00 Medical Branch VITAMIN D, 25-[place] 2022-08-17 Axel Parra [facility] 12:57:00 Medical Branch VITAMIN B1 (THIAMINE), WHOLE 2022-08-17 [facility] 12:57:00 Medical Branch POCT TEST 2022-08-12 [facility] 20:56:00 Medical Branch POCT TEST 2022-08-12 Ramana [facility] 20:56:00 Medical Branch REFERRAL- REQUEST/RESPONSE 2022-08-11 Doctor Unassigned, [facility] [place] 05:01:00 [place] [facility] REFERRAL- REQUEST/RESPONSE 2022-08-11 Doctor Unassigned, [facility] [place] 05:01:00 [place] [facility] PSYCHIATRY CLINIC PATIENT 2022-05-26 Doctor Unassigned, [facility] [place] INFORMATION 06:01:00 [place] [facility] EXTERNAL PROVIDER RECORDS 2022-05-04 Doctor Unassigned, [facility] 06:01:00 [place] [facility] EXTERNAL PROVIDER RECORDS 2022-05-04 Doctor Unassigned, [facility] [place] 06:01:00 [place] [facility] POCT MOLECULAR FLU 2022-04-21 Unknown, Attending [facility] 23:44:00 Medical Branch POCT MOLECULAR FLU 2022-04-21 Unknown, Attending [facility] 23:44:00 Medical Branch POCT MOLECULAR STREP 2022-04-21 Unknown, Attending [facility] 23:42:00 Medical Branch POCT MOLECULAR STREP 2022-04-21 Unknown, Attending [facility] 23:42:00 Medical Branch EPILEPSY MONITORING 2022-04-19 [facility] [place] 00[facility] Medical Branch HOSPITAL ADMISSION 2022-04-18 Doctor Unassigned, [facility] 06:01:00 [place] [facility] EPILEPSY MONITORING UNIT 2022-04-18 Doctor Unassigned, [facility] DOCUMENTATION 06:01:00 [place] [facility] [place] MR BRAIN W WO CONTRAST WITH 2022-04-[address] [facility] NEUROQUANT 23:56:00 Yvan [facility] MRI HEAD EXTERNAL STUDY 2022-04-05 Lily Jon [facility] 23:17:20 CONSENT/REFUSAL FOR DIAGNOSIS 2022-04-05 Doctor Unassigned, [facility] AND TREATMENT 22:56:01 [place] [facility] CONSENT/REFUSAL FOR DIAGNOSIS 2022-04-05 Doctor Unassigned, [facility] AND TREATMENT 22:56:01 [place] [facility] ASSIGNMENT OF BENEFITS 2022-04-05 Doctor Unassigned, [facility] 22:55:42 [place] [facility] ASSIGNMENT OF BENEFITS 2022-04-05 Doctor Unassigned, [facility] 22:55:42 [place] [facility] [place] PATIENT QUESTIONNAIRE 2022-04-05 [facility] 06:01:00 [place] [facility] [place] URINALYSIS 2022-03-21 Toni [facility] 11:42:00 [facility] URINE DRUG (LCMSMS) - [facility]22[facility]03-[facility]PRE[facility] PANEL 11:42:00 [facility] URINALYSIS 2022-03-21 Toni [facility] 11:42:00 [facility] BASIC METABOLIC PANEL (NA, K, 2022-03-21 [facility]antel [facility], CO2, GLUCOSE, BUN, 10:40:00 Medical [place] ranch CREATININE, CA) CBC WITH DIFF 2022-03-21 Toni [facility] xa 10:40:00 Medical Branch CBC WITH DIFF 2022-03-[facility] 10:40[facility]00 Medical [place] BASIC METABOLIC PANEL (NA, K, 2022-03-21 Chantel Muñoz [facility] CL, CO2, GLUCOSE, BUN, 10:40:00 Medical [place] CREATININE, CA) ELECTROENCEPHALOGRAM 2022-03-21 Toni [facility] 00:00:00 [facility] ELECTROENCEPHALOGRAM 2022-03-21 Toni [facility] 00:00:00 Medical Branch EKG-12 LEAD 2022-03-20 Jennifer Dennison [facility] exas 23:14:14 Medical Branch PHOSPHORUS 2022-03-20 MuñozReplaced by [facility] xas 23:07:00 [facility] MAGNESIUM 2022-03-20 MuñozReplaced by [facility] xas 23:07:00 [facility] TEST, SERUM 2022-03-20 Jennifer Dennison [facility] 23:07:00 Medical Branch COMP. METABOLIC PANEL ([id number]) 2022-03-20 Jennifer Dennison [facility] 23:07:00 Medical Branch CBC WITH DIFF 2022-03-20 Jennifer Dennison [facility] ex 23:07:00 [facility] KEPPRA (LEVETIRACETAM) 2022-03-[address] [facility] 23:07:00 Medical Branch KEPPRA (LEVETIRACETAM) 2022-03-[address] [facility] 23:07:00 Medical Branch COMP. METABOLIC PANEL ([id number]) 2022-03-20 Jennifer Dennison [facility] 23:07:00 Medical Branch CBC WITH DIFF 2022-03-20 Jennifer Dennison [facility] ex 23:07:00 [facility] TEST, SERUM 2022-03-20 Jennifer Dennison [facility] 23:07:00 [facility] Branch MAGNESIUM 2022-03-20 [facility] 23:07:00 Medical Branch PHOSPHORUS 2022-03-20 MuñozReplaced by [facility] 23:07:00 [facility] HB ECG ROUTINE & RHYTHM STRIP 2022-03-20 Jennifer Dennison [facility] 22:57:05 [facility] HOSPITAL ADMISSION 2022-03-20 Doctor Unassigned, [facility] 06:01:00 [place] [facility] HOSPITAL ADMISSION 2022-03-20 Doctor Unassigned, [facility] 06:01:00 [place] [facility] THYROID STIMULATING HORMONE 2022-03-14 Axel Parra [facility] 20:01:00 [facility] FREE T3 2022-03-14 Axel Parra [facility] exas 20:01:00 [facility] FREE T4 2022-03-14 [place]00 [facility] ELECTROENCEPHALOGRAM 2022-01-31 [facility] 00:00:00 [facility] POCT TEST 2022-01-30 Monse Chavez [facility] 23:11:00 [facility] URINALYSIS 2022-01-30 Monse Chavez [facility] 23:08:00 [facility] URINE DRUG (IMMUNOASSAY) - 2022-01-30 Mayo Henry [facility] COMPREHENSIVE DRUG SCREEN W/O 23:08:00 Dc dical [place] REFLEX COVID-19 (ID NOW RAPID 2022-01-30 Mayo Henry [facility] TESTING) 22:13:00 [facility] LAB ONLY COVID INTERPRETATION 2022-01-30 Mayo Henry [facility] 22:13:00 [facility] PHOSPHORUS 2022-01-30 [facility] 21:49:00 [facility] MAGNESIUM 2022-01-30 [facility] 21:49:00 [facility] TEST, SERUM 2022-01-30 Mayo Henry [facility] 21:49:00 [facility] COMP. METABOLIC PANEL ([id number]) 2022-01-30 Monse Chavez [facility] 21:49:00 [facility] ETHANOL 2022-01-30 Mayo Henry [facility] xas 21:49:00 [facility] CBC WITH DIFF 2022-01-30 Monse Chavez [facility] 21:49:00 [facility] KEPPRA (LEVETIRACETAM) 2022-01-30 Mayo Henry [facility] 21:49:00 [facility] LACTIC ACID WHOLE BLOOD 2022-01-30 Monse Chavez [facility] 21:48:00 [facility] POCT GLUCOSE (AUTOMATED) 2022-01-30 [facility] 21:46:00 [facility] CONSENT/REFUSAL FOR DIAGNOSIS 2022-01-30 Doctor Unassigned, [facility] AND TREATMENT 21:37:27 [place] [facility] HOSPITAL ADMISSION 2022-01-30 Doctor Unassigned, [facility] 05:01:00 [place] [facility] Plan of Care Planned Activity Planned Date Details Comments Source Future Scheduled 2022-12-05 Hepatitis C [facility] Test 12:59:19 (procedure) [code = 972786869] Future Scheduled 2022-12-05 [facility] 12:59:19 malignant neoplasm of cervix (procedure) [code = 701047014] Future Scheduled 2022-12-05 COVID-19 VACCINE (5 - [facility] 12:59:19 Moderna series) [code = COVID-19 VACCINE (5 - Moderna series)] Future Scheduled 2022-12-05 [facility]FLUENZA [facility]ACCINE [facility] 12:59:19 [code = INFLUENZA VACCINE] Future Scheduled 2022-12-05 [facility] Test 12:59:19 Chlamydia trachomatis (procedure) [code = 090334480] Encounters Start End Encounter Admission Attending Care Care Encounter Source Date/Time Date/Time Type Type Clinicians Facility Department ID 2021-03-08 Emergency [facility] [id number] [facility]23-03-24 2023-03-24 Outpatient R ADUM, [facility] [id number] Univers 13:00:00 13:00:00 [facility] 2022-12-07 2022-12-07 [facility] Do, Juan 1.2.840.8 [id number] Univers 15:00:00 15:00:00 Encounter 79204.1.1 it y of 3.104.2.7 [place] .3.931038 Medica l .8 [place] 2022-12-06 2022-12-06 [facility] Do, Juan 1.2.840.9 [id number] Univers 12:42:52 23:59:00 Encounter 54133.1.1 it y of 3.104.2.7 [place] .3.028325 Medica l .8 [place] 2022-12-06 2022-12-06 Outpatient R DO, JUAN [facility] [id number] Univers 12:42:10 23:59:00 DO, JUAN ity [facility] 2022-12-06 2022-12-06 [facility] Do, Juan 1.2.840.0 [id number] Univers 12:42:10 23:59:00 Encounter 45742.1.1 it y of 3.104.2.7 [place] .3.005784 Medica l .8 [place] 2022-12-01 2022-12-01 [facility] Do, Juan 1.2.840.5 [id number] [facility] 15:00:00 15:00:00 Encounter 77712.1.1 it y of 3.104.2.7 [place] .3.293998 Medica l .8 [place] 2022-12-01 2022-12-01 Outpatient R DO, JUAN [facility] [id number] Univers 00:00:00 00:00:00 DO, JUAN ity [facility] 2022-12-01 2022-12-01 Travel 1.2.840.1 1.2.116.397 [id number] Univers 00:00:00 00:00:00 12979.1.1 350.1.13.10 ity of 3.104.2.7 [place].3.698 [place] .3.641163 084.8 Medica l .8 [place] 2022-11-24 2022-11-24 Outpatient R DO, [facility] [id number] Univers 16:00:00 16:58:52 DO, JUAN ity [facility] 2022-11-24 2022-11-24 [facility] Do, Juan 1.2.840.9 [id number] [facility] 16:00:00 16:58:52 Visit 28422.1.1 ity of 3.104.2.7 [place] .3.202974 Medica l .8 [place] 2022-11-24 2022-11-24 Travel 1.2.840.1 1.2.281.403 [id number] Univers 00:00:00 00:00:00 06399.1.1 350.1.13.10 ity of 3.104.2.7 [place].3.698 [place] .3.922212 084.8 Medica l .8 [place] 2022-11-21 2022-11-21 [facility] [id number] Univers 00:00:00 00:00:00 KAVITHA bahena of [facility] 2022-11-18 2022-11-18 Outpatient R SHINE, [facility] [id number] Univers 10:40:00 11:22:56 RACHELLREJI bernyena o f [facility] 2022-11-18 2022-11-18 Office Shine, 1.2.840.4 [id number] Univers 10:40:00 11:22:56 Visit Rosy 29215.1.1 ity of 3.104.2.7 [place] .3.013220 Medica l .8 [place] 2022-11-18 2022-11-18 Travel 1.2.840.1 1.2.995.767 [id number] Univers 00:00:00 00:00:00 44774.1.1 350.1.13.10 ity of 3.104.2.7 [place]7.3.698 [place] .3.532019 084.8 Medica l .8 [place] 2022-11-16 2022-11-16 Telephone Edmarlon, 1.2.840.7 [id number] Univers 00:00:00 00:00:00 Axel 12294.1.1 ity of 3.104.2.7 [place] .3.893523 Medica l .8 [place] 2022-11-14 2022-11-14 Telephone Edmarlon, 1.2.840.0 [id number] Univers 00:00:00 00:00:00 Axel 04491.1.1 ity of 3.104.2.7 [place] .3.587001 Medica l .8 [place] 2022-11-10 2022-11-10 Patient Muruthi, 1.2.840.3 [id number] Univers 00:00:00 00:00:00 Secure Msg Kavitha Elam 32881.1.1 i ty of 3.104.2.7 [place] .3.843487 Medica l .8 [place] 2022-11-04 2022-11-04 Open Tenter Operator Axel Parra 1.2.840.1 [id number] Univers 14:15:00 14:15:00 Visit 2, Adc Lab 51379.1.1 i ty of 3.104.2.7 [place] .3.095254 Medica l .8 [place] 2022-11-04 2022-11-04 [facility] [id number] Univers 14:15:00 14:08:18 AXEL ity of [facility] 2022-11-04 2022-11-04 Office [facility], 1.2.840.6 [id number] Univers 13:00:00 13:48:40 Visit Axel 62652.1.1 ity of 3.104.2.7 [place] .3.713791 Medica l .8 [place] 2022-11-04 2022-11-04 Travel 1.2.840.1 1.2.508.744 [id number] Univers 00:00:00 00:00:00 01148.1.1 350.1.13.10 ity of 3.104.2.[place].3.698 [place] .3.388375 084.8 Medica l .8 [place] 2022-11-02 2022-11-02 [facility] [id number] Univers 18:57:58 23:59:00 KAVITHA ity of [facility] 2022-11-02 2022-11-02 [facility], 1.2.840.3 [id number] Univers 18:57:58 23:59:00 Encounter Kavitha Elam 77637.1.1 it y of 3.104.2.7 [place] .3.551686 Medica l .8 [place] 2022-10-30 2022-10-30 Emergency BRUSATORI, [facility] 184 Yomi 01:58:00 04:28:00 [facility] 2022-10-30 2022-10-30 Emergency BrusatoriKOBE JESUS 1.2.840.114 [id number] Cel[place] 01:58:00 04:28:00 [facility] 350.1.13.43 [facility] .2.7.2.6869 [id number] 0920-06-22 2022-10-27 Outpatient R JOSE, [facility] [id number] Univers 15:45:00 16:02:02 KEITH arrietaena [facility] 2022-10-27 2022-10-27 Telephone Estefania, 1.2.840.9 [id number] Univers 00:00:00 00:00:00 Kavitha W 15562.1.1 ity of 3.104.2.7 [place] .3.077505 Medica l .8 [place] 2022-10-27 2022-10-27 Travel 1.2.840.1 1.2.806.874 [id number] Univers 00:00:00 00:00:00 76880.1.1 350.1.13.10 ity of 3.104.2.7 [place]7.3.698 [place] .3.796579 084.8 Medica l .8 [place] 2022-10-26 2022-10-26 [facility] Lily Jon 1.2.840.1 [id number] Methodi 16:11:28 23:59:00 Encounter Boyee 80701.1.[address] 3.430.2.7 Hospit a .3.928234 l .8 2022-10-26 2022-10-26 [facility] Lily Jon 1.2.840.1 [id number] Methodi 15:44:48 16:10:00 Encounter Boyee 46695.1.[address] 3.430.2.7 Hospit a .3.909519 l .8 2022-10-26 2022-10-26 [facility] Lily Jon 1.2.840.1 [id number] Methodi 15:21:08 15:43:00 Encounter Boyee 85355.1.[address] 3.430.2.7 Hospit a .3.692789 l .8 2022-10-26 2022-10-26 Outpatient R FIDEL [facility] [id number] Univers 15:40:00 15:40:00 AXEL bahena [facility] 2022-10-26 2022-10-26 [facility] Lily Jon 1.2.840.1 [id number] Methodi 15:08:37 15:20:00 Encounter Regina 54291.1.[address] 3.430.2.7 Hospit a .3.242286 l .8 2022-10-26 2022-10-26 [facility] Lily Jon 1.2.840.1 [id number] Methodi 15:02:06 15:07:00 Encounter Regnia 02820.1.[address] 3.430.2.7 Hospit a .3.910587 l .8 2022-10-26 2022-10-26 [facility] Lily Jon 1.2.840.1 [id number] Methodi 14:58:39 15:01:00 Encounter Regina 59341.1.[address] 3.430.2.7 Hospit a .3.597461 l .8 2022-10-26 2022-10-26 Office Lily Jon 1.2.840.1 [id number] Methodi 13:00:00 13:45:14 Visit Regina 89070.1.[address] 3.430.2.7 Hospit a .3.009018 l .8 2022-10-26 2022-10-26 Outpatient LILY JON [facility] [id number] [place] 00:00:00 00:00:[address] 2022-10-26 2022-10-26 Outpatient LILY JON [facility] [id number] [place] 00:00:00 00:00:[address] 2022-10-26 2022-10-26 Outpatient LILY JON [facility] [id number] [place] 00:00:00 00:00:[address] 2022-10-26 2022-10-26 Outpatient LILY JON [facility] [id number] [place] 00:00:00 00:00:[address] 2022-10-26 2022-10-26 Outpatient LILY JON [facility] [id number] [place] 00:00:00 00:00:[address] 2022-10-26 2022-10-26 Outpatient LILY JON [facility] [id number] [place] 00:00:00 00:00:[address] 2022-10-26 2022-10-26 Outpatient LILY JON [facility] 2100 [id number] [place] 00:00:00 00:00:[address] 2022-10-26 2022-10-26 Orders Lily Jon 1.2.840.1 [id number] [id number] Methodi 00:00:00 00:00:00 Only Regina 94686.1.[address] 3.430.2.7 Hospit a .3.298336 l .8 2022-10-25 2022-10-25 Travel 1.2.840.1 1.2.730.275 3766 24651 [facility] 00:00:00 00:00:00 62154.1.1 350.1.13.10 ity of 3.104.2.7 [place].3.698 [place] 084.8 Med[place] l .8 [place] 2022-10-21 2022-10-21 [facility] [id number] [facility] 15:30:00 15:54:47 KAVITHA itena of [facility] 2022-10-21 2022-10-21 Office Estefania, 1.2.840.2 [id number] [facility] 15:30:00 15:54:47 Visit Kavitha Elam 52052.1.1 ity of 3.104.2.7 [place] .3.857145 Medica l .8 [place] 2022-10-21 2022-10-21 Travel 1.2.840.1 1.2.792.721 7590 64527 [facility] 00:00:00 00:00:00 33951.1.1 350.1.13.10 ity of 3.104.2.7 4.[place].7.3.698 [place].570363 084.8 Med[place] l .8 [place] 2022-10-19 2022-10-19 [facility] [id number] Univers 14:15:00 15:04:09 TRISTEN ity of [facility] 2022-10-19 2022-10-19 Office Gui, 1.2.840.4 [id number] 1023 Univers 14:15:00 15:04:09 Visit Tristen 64426.1.1 ity of 3.104.2.7 [place] .3.240328 Medica l .8 [place] 2022-10-19 2022-10-19 Pre Visit Yue, 1.2.840.3 [id number] Univers 00:00:00 00:00:00 Outreach Barbara Bajwa 20455.1.1 ity of 3.104.2.7 [place] .3.278900 Medica l .8 [place] 2022-10-19 2022-10-19 Travel 1.2.840.1 1.2.651.102 7654 46395 Univers 00:00:00 00:00:00 38069.1.1 350.1.13.10 ity of 3.104.2.7 [place].7.3.698 [place] .3.487642 084.8 Med[place] l .8 [place] 2022-10-14 2022-10-14 Outpatient R ALANNAH VASQUEZ [facility] 10 [id number] Univers 11:32:33 23:59:00 ALANNAH VASQUEZ i ty of [facility] 2022-10-14 2022-10-14 Hospital Carlo, 1.2.840.8 [id number] [id number] Univers 11:32:33 23:59:00 Encounter Alannah 05099.1.1 it y of 3.104.2.7 [place] .3.639752 Medica l .8 [place] 2022-10-14 2022-10-14 Office Carlo, 1.2.840.9 [id number] 8704 Univers 10:30:00 11:08:49 Visit Alannah 21002.1.1 ity of 3.104.2.7 [place] .3.244974 Medica l .8 [place] 2022-10-14 2022-10-14 Telephone Carlo 1.2.840.0 [id number] 103 [id number] Univers 00:00:00 00:00:00 Christinelaith 17952.1.1 ity of 3.104.2.7 [place] .3.182254 Medica l .8 [place] 2022-10-14 2022-10-14 Travel 1.2.840.1 1.2.473.439 2995 05413 Univers 00:00:00 00:00:00 23102.1.1 350.1.13.10 ity of 3.104.2.7 4.[place].7.3.698 [place] .3.119604 084.8 Medica l .8 [place] 2022-10-12 2022-10-12 Hospital [place], 1.2.840.3 [id number] 1 [id number] Univers 12:40:20 23:59:00 Encounter Axel 19596.1.1 it y of 3.104.2.7 [place] .3.763392 Medica l .8 [place] 2022-10-12 2022-10-12 [facility] 1045 [id number] Univers 11:40:00 12:29:05 PETER ity of [facility] 2022-10-12 2022-10-12 Office [place], 1.2.840.5 [id number] 10 [id number] Univers 11:40:00 12:29:05 Visit Axel 80147.1.1 ity of 3.104.2.7 [place] .3.191593 Medica l .8 [place] 2022-10-12 2022-10-12 [facility], 1.2.840.1 [id number] Univers 00:00:00 00:00:00 Axel 56665.1.1 ity of 3.104.2.7 [place] .3.773174 Medica l .8 [place] 2022-10-12 2022-10-12 Patient Doctor 1.2.840.3 [id number] Univers 00:00:00 00:00:00 Secure Msg Unassigned, 04840.1.1 ity of [place] 3.104.2.7 [place] .3.095147 Medica l .8 [place] 2022-10-12 2022-10-12 Travel 1.2.840.1 1.2.220.614 0665 27416 Univers 00:00:00 00:00:00 25626.1.1 350.1.13.10 ity of 3.104.2.7 4.[place].7.3.698 [place] .3.561374 084.8 Medica l .8 [place] 2022-10-08 2022-10-08 Telephone Katy, 1.2.840.1 [id number] 103 [id number] Univers 00:00:00 00:00:00 Elissamarlonoswaldo T 60155.1.1 i ty of 3.104.2.7 [place] .3.984549 Medica l .8 [place] 2022-10-07 2022-10-07 Outpatient R JENAE [facility] [id number] Univers 20:00:00 20:16:50 MAGGI bahena [facility] 2022-10-07 2022-10-07 Urgent Unknown, Attending 1.2.840.1 50897 [id number] Univers 20:00:00 20:16:50 Maggi Durán 39707.1.1 ity of 3.104.2.7 [place] .3.651322 Medica l .8 [place] 2022-10-07 2022-10-07 Travel 1.2.840.1 1.2.659.149 0389 [id number] Univers 00:00:00 00:00:00 95173.1.1 350.1.13.10 ity of 3.104.2.7 4.[place].7.3.698 [place] .3.325820 084.8 Medica l .8 [place] 2022-09-30 2022-09-30 Hospital Nichole, 1.2.840.7 [id number] Univers 08:45:17 23:59:00 Encounter Thalia Maria 52316.1.1 i ty of 3.104.2.7 [place] .3.108974 Medica l .8 [place] 2022-09-30 2022-09-30 Outpatient [facility] [id number] Univers 08:44:41 08:44:41 THALIA itena [facility] 2022-09-30 2022-09-30 Hospital Nichole, 1.2.840.0 [id number] Univers 08:44:41 08:44:41 Encounter Thalia Maria 20295.1.1 i ty of 3.104.2.7 [place] .3.048340 Medica l .8 [place] 2022-09-27 2022-09-27 Patient Fidel, 1.2.840.5 [id number] Univers 00:00:00 00:00:00 Secure Msg Axel 57609.1.1 i ty of 3.104.2.7 [place] .3.003036 Medica l .8 [place] 2022-09-20 2022-09-20 Outpatient R ADGULF [facility] [id number] Univers 11:00:00 11:00:00 LESLEY josef [facility] 2022-09-19 2022-09-19 Telephone Fidel, 1.2.840.6 [id number] Univers 00:00:00 00:00:00 Axel 76419.1.1 ity of 3.104.2.7 [place] .3.581981 Medica l .8 [place] 2022-09-16 2022-09-16 Office Adum, 1.2.840.7 [id number] Univers 09:30:00 09:30:00 Visit Lesley Gold 38931.1.1 ity of 3.104.2.7 [place] .3.811457 Medica l .8 [place] 2022-09-16 2022-09-16 Outpatient R ADGULF [facility] [id number] Univers 09:30:00 08:49:34 LESLEY bahena [facility] 2022-09-16 2022-09-16 Orders Doctor 1.2.840.0 [id number] Univers 00:00:00 00:00:00 Only Unassigned, 44767.1.1 ity of [place] 3.104.2.7 [place] .3.011041 Medica l .8 [place] 2022-09-14 2022-09-14 Open Tenter Operator Axel Parra 1.2.840.1 1023 [id number] Univers 08:15:00 09:12:31 Visit 2, Adc Lab 17336.1.1 i ty of 3.104.2.7 [place] .3.030334 Medica l .8 [place] 2022-09-14 2022-09-14 Outpatient R EDMARLON, [facility] 1045 [id number] Univers 08:15:00 08:15:00 PETER ity [facility] 2022-09-13 2022-09-13 [facility] [id number] Univers 13:20:00 14:05:53 PETER ity [facility] 2022-09-13 2022-09-13 Office [place], 1.2.840.3 [id number] 10 [id number] Univers 13:20:00 14:05:53 Visit Axel 82275.1.1 ity of 3.104.2.7 [place] .3.044941 Medica l .8 [place] 2022-09-13 2022-09-13 Travel 1.2.840.1 1.2.172.843 0172 54536 Univers 00:00:00 00:00:00 19131.1.1 350.1.13.10 ity of 3.104.2.7 [place].7.3.698 [place] .3.182113 084.8 Med[place] l .8 [place] 2022-09-08 2022-09-08 Telephone [place], 1.2.840.9 [id number] Univers 00:00:00 00:00:00 Axel 84824.1.1 ity of 3.104.2.7 [place] .3.005437 Medica l .8 [place] 2022-08-26 2022-08-26 Emergency X Key SMALLS [facility] ERT [id number] Univers 13:24:00 16:44:00 ity of [facility] 2022-08-26 2022-08-26 Emergency Key Smalls 1.2.840.0 [id number] Univers 13:24:00 16:44:00 Myra 41569.1.1 ity of 3.104.2.7 [place] .3.825138 Medica l .8 [place] 2022-08-26 2022-08-26 Telephone Kley, 1.2.840.0 [id number] 102 [id number] Univers 00:00:00 00:00:00 Anusha 35348.1.1 it y of 3.104.2.7 [place] .3.925270 Medica l .8 [place] 2022-08-26 2022-08-26 Travel 1.2.840.1 1.2.408.073 5808 25374 Univers 00:00:00 00:00:00 17970.1.1 350.1.13.10 ity of 3.104.2.7 4.2.7.3.698 [place] .3.965263 084.8 Medica l .8 [place] 2022-08-25 2022-08-25 [facility] [id number] Univers 14:15:00 14:38:30 TRANSON ity of [facility] 2022-08-25 2022-08-25 Travel 1.2.840.1 1.2.839.012 8454 91636 Univers 00:00:00 00:00:00 36878.1.1 350.1.13.10 ity of 3.104.2.7 4.2.7.3.698 [place] .3.728304 084.8 Medica l .8 [place] 2022-08-23 2022-08-23 Transcribe Jeremy Parra2.840.1 [id number] Methodi 00:00:00 00:00:00 Orders Axel 09394.1.[address] 3.430.2.7 Hospit a .3.634492 l .8 2022-08-17 2022-08-17 Open Tenter Operator Axel Parra 1.2.840.1 1037 760803 [id number] Univers 07:30:00 08:08:45 Visit Lab, Rocco Clifton 35800.1.1 ity of 3.104.2.7 [place] .3.409037 Medica l .8 [place] 2022-08-17 2022-08-17 [facility] 1044 [id number] Univers 07:30:00 07:30:00 AXEL ity of [facility] 2022-08-17 2022-08-17 Travel 1.2.840.1 1.2.392.193 1089 17154 Univers 00:00:00 00:00:00 63106.1.1 350.1.13.10 ity of 3.104.2.7 4.2.7.3.698 [place] .3.239009 084.8 Medica l .8 [place] 2022-08-12 2022-08-12 Office Ramana, 1.2.840.2 [id number] Univers 16:00:00 16:00:00 Visit Ana 41851.1.1 ity of 3.104.2.7 [place] .3.330967 Medica l .8 [place] 2022-08-12 2022-08-12 Outpatient [facility] [id number] Univers 16:00:00 14:51:59 ANA bahena [facility] 2022-08-12 2022-08-12 Travel 1.2.840.1 1.2.485.487 6278 [id number] Univers 00:00:00 00:00:00 12682.1.1 350.1.13.10 ity of 3.104.2.7 4.2.7.3.698 [place] .3.828518 084.8 Medica l .8 [place] 2022-08-11 2022-08-11 Telephone Fidel, 1.2.840.4 [id number] Univers 00:00:00 00:00:00 Axel 74174.1.1 ity of 3.104.2.7 [place] .3.012321 Medica l .8 [place] 2022-08-11 2022-08-11 Orders Doctor 1.2.840.8 [id number] Univers 00:00:00 00:00:00 Only Unassigned, 66954.1.1 ity of [place] 3.104.2.7 [place] .3.133317 Medica l .8 [place] 2022-08-10 2022-08-10 Telephone Gui 1.2.840.9 [id number] Univers 00:00:00 00:00:00 Tristen 94859.1.1 ity of 3.104.2.7 [place] .3.468745 Medica l .8 [place] 2022-07-26 2022-07-26 Telephone Jeannine Shell 1.2.840.2 [id number] Univers 00:00:00 00:00:00 S 60479.1.1 ity of 3.104.2.7 [place] .3.070301 Medica l .8 [place] 2022-07-01 2022-07-01 [facility] 1043 [id number] Univers 13:00:00 13:57:50 AXEL ity [facility] 2022-07-01 2022-07-01 Office Fidel, 1.2.840.0 [id number] 99 [id number] Univers 13:00:00 13:57:50 Visit Axel 58727.1.1 ity of 3.104.2.7 [place] .3.182668 Medica l .8 [place] 2022-07-01 2022-07-01 Travel 1.2.840.1 1.2.032.362 4151 57082 Univers 00:00:00 00:00:00 31863.1.1 350.1.13.10 ity of 3.104.2.7 4.2.7.3.698 [place] .3.983085 084.8 Medica l .8 [place] 2022-05-26 2022-05-26 Outpatient R JOSE [facility] [id number] Univers 14:15:00 14:54:05 KEITH ity [facility] 2022-05-26 2022-05-26 Travel 1.2.840.1 1.2.624.180 4459 0874 Univers 00:00:00 00:00:00 11500.1.1 350.1.13.10 ity of 3.104.2.7 4.2.7.3.698 [place] .3.326064 084.8 Medica l .8 [place] 2022-05-26 2022-05-26 Orders Doctor SHAUNA 1.2.840.114 123173 [id number] Univers 00:00:00 00:00:00 Only Unassigned, FREDI 350.1.13.10 ity of [place] [facility] 4.2.7.2.686 Christiano as [id number] [facility] mackenzie 009 [place] 2022-05-20 2022-05-20 [facility] [id number] [id number] Univers 15:40:00 15:40:00 PETER ity of [facility] 2022-05-04 2022-05-04 Orders Doctor 1.2.840.2 [id number] Univers 00:00:00 00:00:00 Only Unassigned, 05371.1.1 ity of [place] 3.104.2.7 [place] .3.568676 Medica l .8 [place] 2022-04-28 2022-04-28 Office Jeannine Shell 1.2.840.9 [id number] Univers 15:00:00 15:20:00 Visit S 11811.1.1 ity of 3.104.2.7 [place] .3.784616 Medica l .8 [place] 2022-04-28 2022-04-28 Outpatient R JEANNINE SHELL [facility] [id number] Univers 15:00:00 15:00:00 ity of [facility] 2022-04-28 2022-04-28 Letter Jeannine Shell 1.2.840.1 [id number] Univers 00:00:00 00:00:00 (Out) S 68849.1.1 ity of 3.104.2.7 [place] .3.765758 Medica l .8 [place] 2022-04-27 2022-04-27 Telephone Fidel 1.2.840.7 [id number] Univers 00:00:00 00:00:00 Peter 67451.1.1 ity of 3.104.2.7 [place] .3.647323 Medica l .8 [place] 2022-04-22 2022-04-22 Transition Jeremy Lindsay2.840.4 [id number] 99 [id number] Univers 00:00:00 00:00:00 of Care Kathryn Carlin 54240.1.1 ity of 3.104.2.7 [place] .3.838616 Medica l .8 [place] 2022-04-22 2022-04-22 Telephone Lupe Khanna.2.840.5 [id number] [id number] Univers 00:00:00 00:00:00 Felicitas Gold 89227.1.1 it y of 3.104.2.7 [place] .3.868001 Medica l .8 [place] 2022-04-21 2022-04-21 Urgent Unknown, Attending 1.2.840.1 35639 [id number] Univers 17:40:00 18:04:41 Elmer Maggi Emanuel 57166.1.1 ity of 3.104.2.7 [place] .3.017663 Medica l .8 [place] 2022-04-21 2022-04-21 Outpatient R JENAE [facility] [id number] Univers 17:40:00 17:40:00 RANIA ity of [facility] 2022-04-18 2022-04-21 Inpatient R JEY [facility] [id number] Univers 08:05:00 12:15:00 RUIQING ity of [facility] 2022-04-18 2022-04-21 [facility] Jeannine Shell 1.2.840.1 [id number] Univers 08:05:00 12:15:00 Encounter Jey Felicitas Gold 27402.1.1 ity of 3.104.2.7 [place] .3.891769 Medica l .8 [place] 2022-04-18 2022-04-18 Travel 1.2.840.1 1.2.416.375 1713 3868 Univers 00:00:00 00:00:00 54317.1.1 350.1.13.10 ity of 3.104.2.7 4.2.7.3.698 [place] .3.136346 084.8 Medica l .8 [place] 2022-04-13 2022-04-13 Telephone Jeannine Shell 1.2.840.6 [id number] Univers 00:00:00 00:00:00 S 68015.1.1 ity of 3.104.2.7 [place] .3.089488 Medica l .8 [place] 2022-04-13 2022-04-13 Telephone Jeannine Shell 1.2.840.1 [id number] Univers 00:00:00 00:00:00 S 65206.1.1 ity of 3.104.2.7 [place] .3.759022 Medica l .8 [place] 2022-04-06 2022-04-06 Telephone Jeannine Shell 1.2.840.8 [id number] Univers 00:00:00 00:00:00 S 78966.1.1 ity of 3.104.2.7 [place] .3.493345 Medica l .8 [place] 2022-04-05 2022-04-05 Outpatient R JEANNINE SHELL [facility] [id number] Univers 16:57:56 23:59:00 ity of [facility] 2022-04-05 2022-04-05 [facility] Jeannine Shell 1.2.840.8 [id number] Univers 16:57:56 23:59:00 Encounter S 11733.1.1 it y of 3.104.2.7 [place] .3.347836 Medica l .8 [place] 2022-03-30 2022-03-30 Telephone Fidel, 1.2.840.9 [id number] Univers 00:00:00 00:00:00 Peter 64121.1.1 ity of 3.104.2.7 [place] .3.438287 Medica l .8 [place] 2022-03-20 2022-03-21 [facility] [id number] Univers 16:50:00 17:54:00 CARMEN ity of [facility] 2022-03-20 2022-03-21 Emergency Jennifer Dennison 1.2.840.1 80167 [id number] Univers 16:50:00 17:54:00 Sarthak Stern 97303.1.1 ity of Carmen Talbert 3.104.2.7 [place] .3.114863 Medica l .8 [place] 2022-03-17 2022-03-17 Outpatient R RAKELJEANNINE LOUIS [facility] [id number] Univers 14:00:00 14:47:08 ity of [facility] 2022-03-17 2022-03-17 Office Jeannine Shell 1.2.840.6 [id number] Univers 14:00:00 14:47:08 Visit S 44804.1.1 ity of 3.104.2.7 [place] .3.637948 Medica l .8 [place] 2022-03-17 2022-03-17 Travel 1.2.840.1 1.2.333.732 3717 4334 Univers 00:00:00 00:00:00 28508.1.1 350.1.13.10 ity of 3.104.2.7 4.[place].7.3.698 [place] .3.211258 084.8 Medica l .8 [place] 2022-03-14 2022-03-14 Outpatient R FIDEL [facility] 1042 [id number] Univers 14:00:00 15:23:47 AXEL ity of [facility] 2022-03-14 2022-03-14 Open Tenter Operator Axel Parra 1.2.840.1 1023 [id number] Univers 14:00:00 15:23:47 Visit 2, Adc Lab 63220.1.1 i ty of 3.104.2.7 [place] .3.343364 Medica l .8 [place] 2022-03-14 2022-03-14 Travel 1.2.840.1 1.2.195.884 2855 9487 Univers 00:00:00 00:00:00 46558.1.1 350.1.13.10 ity of 3.104.2.7 4.2.7.3.698 [place] .3.456371 084.8 Medica l .8 [place] 2022-03-10 2022-03-10 Telephone Goodwin, 1.2.840.0 [id number] Univers 00:00:00 00:00:00 Monet 79953.1.1 ity of 3.104.2.7 [place] .3.942710 Medica l .8 [place] 2022-03-08 2022-03-08 Telephone Fidel, 1.2.840.6 [id number] Univers 00:00:00 00:00:00 Axel 19135.1.1 ity of 3.104.2.7 [place] .3.712971 Medica l .8 [place] 2022-03-03 2022-03-03 Telephone Jagdish, 1.2.840.0 [id number] Univers 00:00:00 00:00:00 Mike Bajwa 87766.1.1 ity of 3.104.2.7 [place] .3.560689 Medica l .8 [place] 2022-02-22 2022-02-22 Telephone Gui [facility] 1.2.840.114 [id number] [id number] Univers 00:00:00 00:00:00 [facility] 350.1.13.10 it y [place] [id number] [address] OFFICE [facility] 2022-02-15 2022-02-15 Open Tenter Operator 2, Adc Lab [facility] 1.2.840.114 [id number] Univers 08:45:00 08:45:19 Visit Axel Parra 350.1.13.10 [facility] [place].2.[place] [id number] Dc dical NAL [address] [facility] 2022-02-15 2022-02-15 Outpatient R FIDEL [facility] 1042 [id number] Univers 08:45:00 08:45:00 AXEL ity of [facility] 2022-02-14 2022-02-14 [facility] 1.2.840.114 [id number] [id number] Univers 00:00:00 00:00:00 [facility] 350.1.13.10 it [place] [id number] [address] OFFICE BUILDING 2022-02-11 2022-02-12 Emergency X BILLY HEARD [facility] ERT 1 [id number] Univers 17:11:00 00:31:00 FÉLIX BILLY itena [facility] 2022-02-09 2022-02-09 Outpatient R FIDEL [facility] 1042 [id number] Univers 11:20:00 12:43:12 AXEL arrietaena [facility] 2022-02-09 2022-02-09 Office Fidel [facility] 1.2.840.114 [id number] [id number] Univers 11:20:00 12:43:12 Visit Axel SANCHEZ 350.1.13.10 i ty of [place] [id number] Dc dical NAL 044 [facility] 2022-02-03 2022-02-03 [facility]phone [facility] 1.2.892.448 4159 2858 Univers 00:00:00 00:00:00 Cecilia PRIMARY 350.1.13.[address] [facility] 4[place]2.7.2.[place] [id number] Dc dical 092 [place] 2022-01-30 2022-01-31 Outpatient X SY TIMMONS [facility] [place] [id number] Univers 16:38:00 17:47:00 ity [facility] 2022-01-30 2022-01-31 Emergency [facility] 1.2.840. 114 [id number] Univers 16:38:00 17:47:00 Sy Timmons 350.1.13.10 ity of [facility] 4.2.7.2.686 Christiano as [id number] [facility] 098 [place] 2022-01-28 2022-01-28 Outpatient R SHINE [facility] [id number] Univers 13:00:00 13:46:25 ROSY sargent [facility] 2022-01-28 2022-01-28 [facility] 1.2.840.114 [id number] Univers 13:00:00 13:46:25 Visit Rosy SANCHEZ 350.1.13.10 it[place] [id number] Dc dical NAL 059 [facility] 2022-01-27 2022-01-27 Office RakelJeannine louis [facility] 1.2.840.114 [id number] Univers 14:40:00 15:20:00 Visit S HEALTH 350.1.13.10 i ty [place] [id number] [address] 2022-01-27 2022-01-27 Outpatient R JEANNINE SHELL [facility] [id number] Univers 14:40:00 14:40:00 ity [facility] 2022-01-03 2022-01-03 Telephone [facility] [id number] Univers 00:00:00 00:00:00 Ruiqing L SPECIALTY 350.1.13.10 [place] [phone] [address] 2021-12-24 2021-12-24 Outpatient R JEY [facility] [id number] Univers 15:30:00 16:02:43 RUIQING ity [facility] 2021-12-24 2021-12-24 [facility] 1.2.840.114 [id number] Univers 15:30:00 16:02:43 Visit Ruiqing L SPECIALTY 350.1.13.10 [place] [phone] [address] 2021-12-24 2021-12-24 Telephone [facility] [id number] Univers 00:00:00 00:00:00 Ruiqing L SPECIALTY 350.1.13.10 [place] [id number] Dc fabian [address] 2021-12-20 2021-12-20 Emergency [facility] E[facility] [id number] Univers 11:12:00 13:24:00 MONSE ity [facility] 2021-12-20 2021-12-20 Emergency Kathy [facility] 1.2.840.114 [id number] Univers 11:12:00 13:24:00 Monse [place] 350.1.13.10 ity [place]2.686 [place] [facility] [phone] [address] 2021-12-15 2021-12-15 Emergency X [facility] ERT [id number] Univers 13:47:00 15:39:00 JUSTIN ity of [facility] 2021-12-15 2021-12-15 Emergency [facility] 1.2.954.535 [id number] Univers 13:47:00 15:39:00 Jsutin SANCHEZ 350.1.13.10 i ty of [place] 4.2.7.2.686 [id number] [address] 2021-12-06 2021-12-06 [facility] [id number] Univers 15:00:00 17:10:27 BÁRBARA ity of [facility] 2021-12-06 2021-12-06 Open Tenter Operator Pcp-Lab [facility] 1.2.840.114 [id number] Univers 15:00:00 15:15:00 Visit Lb Gillisn Garett PRIMARY 350.1.13.10 [place] [id number] Dc dical [address] 2021-12-06 2021-12-06 Outpatient [facility] [id number] Univers 10:30:00 12:03:40 BÁRBARA bahena of [facility] 2021-12-06 2021-12-06 Office Perla Knight [facility] 1.2.840 .114 [id number] Univers 10:30:00 12:03:40 Visit Bárbara Gillis PRIMARY 350.1.13.10 [place] [id number] Dc dical [address] 2021-12-06 2021-12-06 Orders Doctor VILLATORO 1.2.840.114 [id number] Univers 00:00:00 00:00:00 Only Unassigned, FREDI 350.1.13.10 ity of [place] [facility] 4.2.7.2.686 Christiano as [id number] [facility] [address] 2021-10-13 2021-10-13 Office [facility] 1.2.840.114 [id number] Univers 11:15:00 11:27:34 Visit Tristen SONI 350.1.13.10 it y of [place]2.7.2.686 [place] SAM[place] [id number] [address] OFFICE BUILDING 2021-10-13 2021-10-13 Outpatient R GUI [facility] [id number] Univers 11:15:00 11:15:00 TRISTEN bernyena [facility] 2021-10-13 2021-10-13 Outpatient Agustin MAC [facility] [id number] Univers 09:00:00 09:28:03 KAVITHA bahena [facility] 2021-10-13 2021-10-13 Office Estefania [facility] 1.2.840.114 [id number] Univers 09:00:00 09:28:03 Visit Kavitha Elam [facility] 350.1.13.10 it y of [place] [phone] [facility] [place] [address] FRIENDSWO OD 2021-10-13 2021-10-13 Outpatient Agustin MAC [facility] [id number] Univers 09:00:00 09:28:03 KAVITHA bahena [facility] 2021-10-13 2021-10-13 Orders Doctor VILLATORO 1.2.840.114 [id number] Univers 00:00:00 00:00:00 Only Unassigned, FREDI 350.1.13.10 ity of [place] [facility] 4.2.7.2.686 [place] as [phone] [address] 2021-09-15 2021-09-15 Outpatient Agustin NICHOLE [facility] [id number] Univers 09:23:28 23:59:00 THALIA josef [facility] 2021-09-15 2021-09-15 Outpatient Agustin NICHOLE [facility] [id number] Univers 09:23:28 23:59:00 THALIA bahena [facility] 2021-09-15 2021-09-15 [facility] 1.2.840.114 [id number] Univers 09:23:28 23:59:00 Encounter Thalia SANCHEZ 350.1.13.10 ity of [place] 4.2.7.2.686 [facility] [id number] [facility] [address] 2021-09-15 2021-09-15 [facility]patient [facility] [id number] Univers 09:22:55 09:22:55 THALIA ity [facility] 2021-09-15 2021-09-15 [facility] 1.2.840.114 [id number] Univers 09:22:55 09:22:55 Encounter Thalia SANCHEZ 350.1.13.10 ity [facility] 4.2.7.2.686 [facility] [id number] [facility] [address] 2021-09-10 2021-09-10 Outpatient Agustin KHANNA [facility] [id number] Univers 11:30:00 12:02:08 RUIQING ity [facility] 2021-09-10 2021-09-10 [facility] 1.2.840.114 [id number] Univers 11:30:00 12:02:08 Visit Felicitas ORDOÑEZ 350.1.13.10 ity of CARE 4.2.7.2.686 [facility] AT [id number] Dc xenialilly [address] 2021-09-10 2021-09-10 Outpatient Agustin KHANNA [facility] [id number] Univers 11:30:00 11:30:00 RUIQING ity [facility] 2021-09-10 2021-09-10 Outpatient [facility] [id number] Univers 08:30:00 09:08:59 THALIA itena [facility] 2021-09-10 2021-09-10 Office JUAN PABLO Nichole 1.2.840.114 [id number] Univers 08:30:00 09:08:59 Visit Thalia Maria [facility] 350.1.13.10 ity of CLINICS 4.2.7.2.686 [facility] [id number] [facility] [address] 2021-08-31 2021-08-31 Office Luis Eduardo Myers [facility] 1.2.840.1 [id number] Univers 16:00:00 16:53:33 Visit Lilo Mendieta PRIMARY 350.1.13.10 ity of [facility] [place] [id number] Dc dical [address] 2021-08-31 2021-08-31 Outpatient R GAYATRI [facility] [id number] Univers 16:00:00 16:53:33 ILLO ity [facility] 2021-08-31 2021-08-31 Outpatient R ROSARICARDO [facility] [id number] Univers 16:00:00 16:00:00 LILO ity [facility] 2021-08-23 2021-08-23 Transition Julioelizabeth MILTON 1.2.840.114 [id number] Univers 00:00:00 00:00:00 of Care Carleen GUTIERREZ 350.1.13.10 i ty of [place] [id number] [facility] [address] 2021-08-16 2021-08-20 Hospital Jeannine Shell 1.2.840.114 [id number] Univers 08:26:00 11:30:00 Encounter Ranjit Robb 350.1.13.10 ity of [facility] 4.2.7.2.686 Christiano as [id number] [facility] [address] 2021-08-16 2021-08-16 Outpatient R JEANNINE SHELL [facility] [id number] Univers 08:30:00 08:30:00 ity of [facility] 2021-08-16 2021-08-16 Outpatient R JEANNINE SHELL [facility] [id number] Univers 08:30:00 08:30:00 ity of [facility] 2021-08-16 2021-08-16 Outpatient R JEANNINE SHELL [facility] [id number] Univers 08:30:00 08:30:00 ity [facility] 2021-08-16 2021-08-16 Outpatient Agustin JEANNINE SHELL [facility] [id number] Univers 08:30:00 08:30:00 ity of [facility] 2021-08-13 2021-08-13 Laboratory Only, Adc Test [facility] 1.2.840. 114 [id number] Univers 08:00:00 08:15:00 Only Jeannine Shell Lani [place] 350.1.13.10 it[place] [id number] [address] 2021-08-13 2021-08-13 Outpatient Agustin JEANNINE SHELL [facility] [id number] Univers 08:00:00 08:00:00 ity of [facility] 2021-08-11 2021-08-11 Telephone Gui [facility] 1.2.840.114 [id number] Univers 00:00:00 00:00:00 [facility] 350.1.13.10 it [place] [id number] [address] OFFICE BUILDING 2021-08-10 2021-08-10 Telephone Christina [facility] 1.2.968.840 [id number] Univers 00:00:00 00:00:00 Cecilia PRIMARY 350.1.13.10 i ty of [place] [id number] [address] 2021-08-10 2021-08-10 Telephone Goodwin [facility] 1.2.840.114 [id number] Univers 00:00:00 00:00:00 Monet PRIMARY 350.1.13.10 i ty [place] [id number] [address] 2021-08-06 2021-08-06 Patient Brooks [facility] 1.2.840.114 [id number] Univers 00:00:00 00:00:00 [facility] 350.1.13.10 ity of [place] 4.2.7.2.686 [place] [id number] [address] OFFICE BUILDING 2021-08-03 2021-08-03 Outpatient R VASQUEZ, [facility] [id number] Univers 14:07:56 23:59:00 CECILIA arrietay o f [facility] 2021-08-03 2021-08-03 Hospital Vasquez, [facility] 1.2.840.114 [id number] Univers 14:07:56 23:59:00 Encounter Cecilia SANCHEZ 350.1.13.10 ity of [place] 4.2.7.2.686 [facility] [id number] [facility] [address] 2021-07-16 2021-07-16 Telephone Brooks VILLATORO 1.2.649.046 [id number] Univers 00:00:00 00:00:00 FREDI Sims 350.1.13.10 i ty of [facility] 4.2.7.2.686 [facility] [id number] [facility] [address] 2021-07-15 2021-07-15 Outpatient R VASQUEZ, [facility] [id number] Univers 13:00:00 23:59:00 CECILIA sargent [facility] 2021-07-15 2021-07-15 Outpatient R VASQUEZ, [facility] [id number] Univers 13:00:00 13:00:00 CECILIA cifuentes [facility] 2021-07-15 2021-07-15 [facility] 1.2.933.757 [id number] Univers 00:00:00 00:00:00 [facility] 350.1.13.10 i ty of [place] 4.2.7.2.686 [facility] [id number] [facility] [address] OFFICE BUILDING 2021-07-06 2021-07-06 Outpatient R VASQUEZ, [facility] [id number] Univers 13:00:00 14:35:18 CECILIA sargent [facility] 2021-07-06 2021-07-06 Office Monet Goodwin [facility] 1.2.84 0.114 [id number] Univers 13:00:00 14:35:18 Visit Cecilia Vasquez 350.1.13.1 0 it[place] [id number] [facility] [address] 2021-07-06 2021-07-06 Outpatient R CHRISTINA [facility] [id number] Univers 13:00:00 14:35:18 CECILIA ity o f [facility] 2021-04-19 2021-04-19 Outpatient R [facility] [id number] Univers 12:11:00 23:59:00 RAMIN, ity of [place] [facility] 2021-04-19 2021-04-19 [facility] 1.2.840.114 [id number] Univers 12:11:00 23:59:00 Encounter ramin, PRIMARY 350.1.13.10 ity of [facility] C[place] [id number] [facility] [address] 2021-03-26 2021-03-26 Telephone [facility] 1.2.840.114 [id number] Univers 00:00:00 00:00:00 Tristen HEALTH 350.1.13.10 it y [place] [id number] [facility] [address] OFFICE BUILDING 2021-03-24 2021-03-24 [facility]phone [facility] 1.2.840.114 [id number] Univers 00:00:00 00:00:00 Tristen HEALTH 350.1.13.10 it y [place] [id number] [facility] [address] OFFICE BUILDING 2021-03-16 2021-03-16 Telephone [facility] 1.2.840.114 [id number] Univers 00:00:00 00:00:00 Tristen SPECIALTY 350.1.13.10 [place] [id number] [address] 2021-03-11 2021-03-11 Telephone [facility] 1.2.840.114 [id number] Univers 00:00:00 00:00:00 Thalia HEALTH 350.1.13.10 i ty of [place] 4.2.7.2.686 [place] [id number] [address] OFFICE BUILDING 2021-01-14 2021-01-14 Telephone [facility] 1.2.840.114 [id number] Univers 00:00:00 00:00:00 Thalia [facility] 350..13.10 i ty of [place] 4.2.7.2.686 [place] [id number] [address] Office Building 2020-11-12 2020-11-12 [facility] [id number] Univers 10:00:00 10:00:00 [facility] 2020-10-30 2020-10-30 [facility] [id number] Univers 13:00:00 13:24:19 [facility] 2020-10-30 2020-10-30 Outpatient R [facility] [id number] Univers 13:00:00 13:00:00 [facility] 2020-10-22 2020-10-22 Emergency X [facility] ERT [id number] Univers 12:07:00 12:07:00 [facility] 2020-10-12 2020-10-12 Emergency X [facility] ERT [id number] Univers 19:23:00 19:23:00 [facility] 2020-09-07 2020-09-09 Outpatient X [facility] SNS [id number] Univers 10:28:00 16:20:00 [facility] 2020-09-07 2020-09-07 Emergency X [facility] ERT [id number] Univers 10:22:00 10:22:00 [facility] 2020-08-31 2020-08-31 Emergency Elizabeth RUIZ [facility] 1116 [facility] 00:51:00 11:46:00 ALEBRT 2019-07-19 2019-07-19 Emergency [facility] 1.2.840.114 [id number] 21:36:16 23:53:00 Monse Sanchez 350..13.10 [place] 4.2.7.2.686 [place] [id number] 084 2019-07-19 2019-07-19 Emergency X KATHY, [facility] ERT [id number] Univers 21:22:00 21:22:00 MONSE bahena [facility] Results Test Description Test Time Test Comments Results Result Comments Source POCT TEST 2022-09-16 13:30:00 Test Item Value Reference Range Interpretation Comme nts POCT PREG (test code = 1605) Negative On board controls acceptable with C Line (test code = 3574) Yes POCT PREG LOT # (test code = 3575) POCT PREG TEST DATE (test code = 3576) [id number] 13:30:00 Test Item Value Reference Range Interpretation Comments POCT PREG (test code = 1605) Negative On board controls acceptable with C Yes Line (test code = 3574) POCT PREG LOT # (test code = 3575) POCT PREG TEST DATE (test code = 3576) [facility] [id number] 13:30:00 Test Item Value Reference Range Interpretation Comments POCT PREG (test code = 1605) Negative On board controls acceptable with C Yes Line (test code = 3574) POCT PREG LOT # (test code = 3575) POCT PREG TEST DATE (test code = 3576) [facility] [id number] 13:30:00 Test Item Value Reference Range Interpretation Comments POCT PREG (test code = 1605) Negative On board controls acceptable with C Yes Line (test code = 3574) POCT PREG LOT # (test code = 3575) POCT PREG TEST DATE (test code = 3576) [facility] [id number] 13:30:00 Test Item Value Reference Range Interpretation Comments POCT PREG (test code = 1605) Negative On board controls acceptable with C Yes Line (test code = 3574) POCT PREG LOT # (test code = 3575) POCT PREG TEST DATE (test code = 3576) [facility] [id number] 13:30:00 Test Item Value Reference Range Interpretation Comments POCT PREG (test code = 1605) Negative On board controls acceptable with C Yes Line (test code = 3574) POCT PREG LOT # (test code = 3575) POCT PREG TEST DATE (test code = 3576) [facility] [id number] 13:30:00 Test Item Value Reference Range Interpretation Comments POCT PREG (test code = 1605) Negative On board controls acceptable with C Yes Line (test code = 3574) POCT PREG LOT # (test code = 3575) POCT PREG TEST DATE (test code = 3576) [facility] [id number] 13:30:00 Test Item Value Reference Range Interpretation Comments POCT PREG (test code = 1605) Negative On board controls acceptable with C Yes Line (test code = 3574) POCT PREG LOT # (test code = 3575) POCT PREG TEST DATE (test code = 3576) [facility] [id number] 13:30:00 Test Item Value Reference Range Interpretation Comments POCT PREG (test code = 1605) Negative On board controls acceptable with C Yes Line (test code = 3574) POCT PREG LOT # (test code = 3575) POCT PREG TEST DATE (test code = 3576) [facility] [id number] 19:48:00 Test Item Value Reference Range Interpretation Comments POCT PREG (test code = 1605) Negative On board controls acceptable with Present C Line (test code = 3574) POCT PREG LOT # (test code = HCG [id number]) POCT PREG TEST DATE (test 06/07/2023 code = 3576) Lab Interpretation (test code = Normal 74531-1) [facility] [id number] 19:48:00 Test Item Value Reference Range Interpretation Comments POCT PREG (test code = 1605) Negative On board controls acceptable with Present C Line (test code = 3574) POCT PREG LOT # (test code = HCG 201109085) POCT PREG TEST DATE (test 06/07/2023 code = 3576) Lab Interpretation (test code = Normal 07104-7) [facility] [id number] 19:48:00 Test Item Value Reference Range Interpretation Comments POCT PREG (test code = 1605) Negative On board controls acceptable with Present C Line (test code = 3574) POCT PREG LOT # (test code = HCG 20110908) POCT PREG TEST DATE (test 06/07/2023 code = 3576) Lab Interpretation (test code = Normal 17605-4) [facility]. METABOLIC PANEL ([id number])2022-08-26 19:44:55 Test Item Value Reference Range Interpretation Comments NA (test code = 137 mmol/L 135-145 8860104262) K (test code = 3.6 mmol/L 3.5-5.0 9694339365) CL (test code = 101 mmol/L 98-108 4192200081) CO2 TOTAL (test code = 25 mmol/L 23-31 8155692640) AGAP (test code = 11 2-16 9415940570) BUN (test code = 9 mg/dL 7-23 2459349365) GLUCOSE (test code = 175 mg/dL 70-110 H 1702525413) CREATININE (test code = 0.51 mg/dL 0.50-1.04 5944517017) TOTAL BILI (test code = 0.7 mg/dL 0.1-1.0 1987596570) CALCIUM (test code = 8.8 mg/dL 8.6-10.6 7579717056) T PROTEIN (test code = 7.0 g/dL 6.3-8.2 8786847701) ALBUMIN (test code = 4.5 g/dL 3.5-5.0 1962810419) ALK PHOS (test code = 66 U/L 34-122 9550917429) ALTv (test code = 21 U/L 5-35 1742-6) AST(SGOT) (test code = 22 U/L 13-40 2857360138) eGFR (test code = 149.4 mL/min/1.73m2 2501648738) LIA (test code = LIA) Association of [...] tests). Lab Interpretation Abnormal (test code = 57943-6) [facility]. METABOLIC PANEL ([id number])2022-08-26 19:44:55 Test Item Value Reference Range Interpretation Comments NA (test code = 137 mmol/L 135-145 0427056254) K (test code = 3.6 mmol/L 3.5-5.0 5607913259) CL (test code = 101 mmol/L 98-108 6422156436) CO2 TOTAL (test code = 25 mmol/L 23-31 8161575673) AGAP (test code = 11 2-16 0996963816) BUN (test code = 9 mg/dL 7-23 7141513082) GLUCOSE (test code = 175 mg/dL 70-110 H 4935061497) CREATININE (test code = 0.51 mg/dL 0.50-1.04 5480758834) TOTAL BILI (test code = 0.7 mg/dL 0.1-1.5 2074561609) CALCIUM (test code = 8.8 mg/dL 8.6-10.6 1734919762) T PROTEIN (test code = 7.0 g/dL 6.3-8.2 9169467091) ALBUMIN (test code = 4.5 g/dL 3.5-5.0 8761941648) ALK PHOS (test code = 66 U/L 34-122 2912197134) ALTv (test code = 21 U/L 5-35 1742-6) AST(SGOT) (test code = 22 U/L 13-40 2035910691) eGFR (test code = 149.4 mL/min/1.73m2 1956117318) LIA (test code = LIA) Association of [...] tests). Lab Interpretation Abnormal (test code = 07985-7) [facility]. METABOLIC PANEL ([id number])2022-08-26 19:44:55 Test Item Value Reference Range Interpretation Comments NA (test code = 137 mmol/L 135-145 0855725195) K (test code = 3.6 mmol/L 3.5-5.0 5951162604) CL (test code = 101 mmol/L 98-108 5001956036) CO2 TOTAL (test code = 25 mmol/L 23-31 8585669631) AGAP (test code = 11 2-16 2798190467) BUN (test code = 9 mg/dL 7-23 6977152392) GLUCOSE (test code = 175 mg/dL 70-110 H 9871897824) CREATININE (test code = 0.51 mg/dL 0.50-1.04 9545748764) TOTAL BILI (test code = 0.7 mg/dL 0.1-1.4 9087431817) CALCIUM (test code = 8.8 mg/dL 8.6-10.6 0050180282) T PROTEIN (test code = 7.0 g/dL 6.3-8.2 4544853406) ALBUMIN (test code = 4.5 g/dL 3.5-5.0 0487997086) ALK PHOS (test code = 66 U/L 34-122 0468420851) ALTv (test code = 21 U/L 5-35 1742-6) AST(SGOT) (test code = 22 U/L 13-40 9713046448) eGFR (test code = 149.4 mL/min/1.73m2 2274058499) LIA (test code = LIA) Association of [...] tests). Lab Interpretation Abnormal (test code = 51606-9) [facility] WITH [id number] 19:26:31 Test Item Value Reference Range Interpretation Comments WBC (test code = 6.08 See_Comment [Automated 1943-2) message] The sy stem which generated this result transmitted reference range : 4.30 - 11.10 10*3/?L. The reference range was not used to interpret this result as normal/abnormal . RBC (test code = 4.33 See_Comment [Automated 819-8) message] The sy stem which generated this [...] (test code = 35.8 fL 39.0-49.9 L 01248-3) RDW-CV (test code = 11.9 % 12.0-15.5 L 788-0) PLT (test code = 229 See_Comment [Automated 487-3) message] The sy stem which generated this result transmitted reference range : 166 - 358 10*3/ ?L. The reference r vimal was not used to interpret this result as normal/abnormal . MPV (test code = 11.1 fL 9.5-12.9 54066-9) NRBC/100 WBC (test 0.0 See_Comment [Automat ed code = 8405458605) message] The system which generated this result transmitted reference range : 0.0 - 10.0 /100 WBCs. The refer ence range was not u sed to interpret th is result as normal/abnormal . NRBC x10^3 (test code See_Comment [Auto mated = 3409609003) message] The s ystem which generated this result transmitted reference range : 10*3/?L. The reference range was not used to interpret this result as normal/abnormal . GRAN MAT (NEUT) % 68.8 % (test code = 770-8) IMM GRAN % (test code 0.30 % = 1502653044) LYMPH % (test code = 24.5 % 736-9) MONO % (test code = 4.9 % 5905-5) EOS % (test code = 0.8 % 713-8) BASO % (test code = 0.7 % 706-2) GRAN MAT x10^3(ANC) 4.18 10*3/uL 1.88-7.09 (test code = 9563317955) IMM GRAN x10^3 (test 0.00-0.06 code = 7361327430) LYMPH x10^3 (test code 1.49 10*3/uL 1.32-3.29 = 731-0) MONO x10^3 (test code 0.30 10*3/uL 0.33-0.92 L = 742-7) EOS x10^3 (test code = 0.05 10*3/uL 0.03-0.39 711-2) BASO x10^3 (test code 0.04 10*3/uL 0.01-0.07 = 704-7) Lab Interpretation Abnormal (test code = 36637-8) [facility] WITH [id number] 19:26:31 Test Item Value Reference Range Interpretation Comments WBC (test code = 6.08 See_Comment [Automated 6798-2) message] The sy stem which generated this [...] (test code = 35.8 fL 39.0-49.9 L 83915-3) RDW-CV (test code = 11.9 % 12.0-15.5 L 788-0) PLT (test code = 229 See_Comment [Automated 777-3) message] The sy stem which generated this result transmitted reference range : 166 - 358 10*3/ ?L. The reference r vimal was not used to interpret this result as normal/abnormal . MPV (test code = 11.1 fL 9.5-12.9 96178-6) NRBC/100 WBC (test 0.0 See_Comment [Automat ed code = 9370181164) message] The system which generated this result transmitted reference range : 0.0 - 10.0 /100 WBCs. The refer ence range was not u sed to interpret th is result as normal/abnormal . NRBC x10^3 (test code See_Comment [Auto mated = 1582619987) message] The s ystem which generated this result transmitted reference range : 10*3/?L. The reference range was not used to interpret this result as normal/abnormal . GRAN MAT (NEUT) % 68.8 % (test code = 770-8) IMM GRAN % (test code 0.30 % = 2355725711) LYMPH % (test code = 24.5 % 736-9) MONO % (test code = 4.9 % 5905-5) EOS % (test code = 0.8 % 713-8) BASO % (test code = 0.7 % 706-2) GRAN MAT x10^3(ANC) 4.18 10*3/uL 1.88-7.09 (test code = 3930559974) IMM GRAN x10^3 (test 0.00-0.06 code = 4864737165) LYMPH x10^3 (test code 1.49 10*3/uL 1.32-3.29 = 731-0) MONO x10^3 (test code 0.30 10*3/uL 0.33-0.92 L = 742-7) EOS x10^3 (test code = 0.05 10*3/uL 0.03-0.39 711-2) BASO x10^3 (test code 0.04 10*3/uL 0.01-0.07 = 704-7) Lab Interpretation Abnormal (test code = 31940-8) [facility] WITH [id number] 19:26:31 Test Item Value Reference Range Interpretation [...] (test code = 35.8 fL 39.0-49.9 L 97926-4) RDW-CV (test code = 11.9 % 12.0-15.5 L 788-0) PLT (test code = 229 See_Comment [Automated 777-3) message] The sy stem which generated this result transmitted reference range : 166 - 358 10*3/ ?L. The reference r vimal was not used to interpret this result as normal/abnormal . MPV (test code = 11.1 fL 9.5-12.9 50744-7) NRBC/100 WBC (test 0.0 See_Comment [Automat ed code = 3617261305) message] The system which generated this result transmitted reference range : 0.0 - 10.0 /100 WBCs. The refer ence range was not u sed to interpret th is result as normal/abnormal . NRBC x10^3 (test code See_Comment [Auto mated = 3772916077) message] The s ystem which generated this result transmitted reference range : 10*3/?L. The reference range was not used to interpret this result as normal/abnormal . GRAN MAT (NEUT) % 68.8 % (test code = 770-8) IMM GRAN % (test code 0.30 % = 9183395559) LYMPH % (test code = 24.5 % 736-9) MONO % (test code = 4.9 % 5905-5) EOS % (test code = 0.8 % 713-8) BASO % (test code = 0.7 % 706-2) GRAN MAT x10^3(ANC) 4.18 10*3/uL 1.88-7.09 (test code = 4503582779) IMM GRAN x10^3 (test 0.00-0.06 code = 8870468581) LYMPH x10^3 (test code 1.49 10*3/uL 1.32-3.29 = 731-0) MONO x10^3 (test code 0.30 10*3/uL 0.33-0.92 L = 742-7) EOS x10^3 (test code = 0.05 10*3/uL 0.03-0.39 711-2) BASO x10^3 (test code 0.04 10*3/uL 0.01-0.07 = 704-7) Lab Interpretation Abnormal (test code = 41826-3) [facility]/[id number] 22:14:00 Test Item Value Reference Range Interpretation Comments TESTOS (test 29 ng/dL 9-55 REFERENCE INTER ROXANNE: code = 2986-8) Testosterone by Pi[employer] Helper FemalesPremenop ausal ?9-55 ng/dLPostmenopa usal 5-32 ng/dL INTERPRET MARYANA INFORMATION: Te stosterone by [employer] Free or bioavailable te stosterone measurements ma y provide supportive info rmation. For individuals on testosterone-arita ppressing hormone therapi es (e.g., antiandrogens o r estrogens), refer to cisgen millie female reference inter vals. For a complete set of all established ref erence intervals, refe r to ltd.[email or web address] /Tests/Pub/008 1058. This test was developed and its perform ance characteristics determined by [employer]. It has not been cleared or approved by the [place] Food and Drug Administration. This test was performed in a CLIA certified laboratory and is intended for clinical purposes.Perfor med By: [facility] [place] [address] [id number] Director: Inocente cain MD, PhD [facility]/[id number] 22:14:00 Test Item Value Reference Range Interpretation Comments TESTOS (test 29 ng/dL 9-55 REFERENCE INTER ROXANNE: code = 2986-8) Testosterone by [employer] Hel[employer] FemalesPremenop ausal ?9-55 ng/dLPostmenopa usal 5-32 ng/dL INTERPRET MARYANA INFORMATION: Te stosterone by [employer] Free or bioavailable te stosterone measurements ma y provide supportive info rmation. For individuals on testosterone-arita ppressing hormone therapi es (e.g., antiandrogens o r estrogens), refer to cisgen millie female reference inter vals. For a complete set of all established ref erence intervals, refe r to l[email or web address] /Tests/Pub/008 1058. This test was developed and its perform ance characteristics determined by [employer]. It has not been cleared or approved by the [place] Food and Drug Administration. This test was performed in a CLIA certified laboratory and is intended for clinical purposes.Perfor med By: [facility] [place] [address] [id number] Director: Inocente cain MD, PhD [facility]/[id number] 22:14:00 Test Item Value Reference Range Interpretation Comments TESTOS (test 29 ng/dL 9-55 REFERENCE INTER ROXANNE: code = 2986-8) Testosterone by [employer] Hel[employer] FemalesPremenop ausal ?9-55 ng/dLPostmenopa usal 5-32 ng/dL INTERPRET MARYANA INFORMATION: Te stosterone by [employer] Free or bioavailable te stosterone measurements ma y provide supportive info rmation. For individuals on testosterone-arita ppressing hormone therapi es (e.g., antiandrogens o r estrogens), refer to cisgen millie female reference inter vals. For a complete set of all established ref erence intervals, refe r to ltd[employer] /Tests/Pub/008 1058. This test was developed and its perform ance characteristics determined by [employer]. It has not been cleared or approved by the [place] Food and Drug Administration. This test was performed in a CLIA certified laboratory and is intended for clinical purposes.Perfor med By: [facility] [place] [id number] Director: Inocente cain MD, PhD [facility]/[id number] 22:14:00 Test Item Value Reference Range Interpretation Comments TESTOS (test 29 ng/dL 9-55 REFERENCE INTER ROXANNE: code = 2986-8) Testosterone by Piper Helper FemalesPremenop ausal ?9-55 ng/dLPostmenopa usal 5-32 ng/dL INTERPRET MARYANA INFORMATION: Te stosterone by Piper Helper Free or bioavailable te stosterone measurements ma y provide supportive info rmation. For individuals on testosterone-arita ppressing hormone therapi es (e.g., antiandrogens o r estrogens), refer to cisgen millie female reference inter vals. For a complete set of all established ref erence intervals, refe r to ltd.[email or web address] /Tests/Pub/008 1058. This test was developed and its perform ance characteristics determined by [email or web address]. It has not been cleared or approved by the [place] Food and Drug Administration. This test was performed in a CLIA certified laboratory and is intended for clinical purposes.Perfor med By: [address] [id number] Director: Inocente cain MD, PhD [facility]/[id number] 22:14:00 Test Item Value Reference Range Interpretation Comments TESTOS (test 29 ng/dL 9-55 REFERENCE INTER ROXANNE: code = 2986-8) Testosterone by Piper Helper FemalesPremenop ausal ?9-55 ng/dLPostmenopa usal 5-32 ng/dL INTERPRET MARYANA INFORMATION: Te stosterone by [employer] Hel[employer] Free or bioavailable te stosterone measurements ma y provide supportive info rmation. For individuals on testosterone-arita ppressing hormone therapi es (e.g., antiandrogens o r estrogens), refer to cisgen millie female reference inter vals. For a complete set of all established ref erence intervals, refe r to ltd.[email or web address] /Tests/Pub/008 1058. This test was developed and its perform ance characteristics determined by [employer]. It has not been cleared or approved by the [place] Food and Drug Administration. This test was performed in a CLIA certified laboratory and is intended for clinical purposes.Perfor med By: [address] [id number] Director: Inocente cain MD, PhD [facility]/[id number] 22:14:00 Test Item Value Reference Range Interpretation Comments TESTOS (test 29 ng/dL 9-55 REFERENCE INTER ROXANNE: code = 2986-8) Testosterone by Piper Helper FemalesPremenop ausal ?9-55 ng/dLPostmenopa usal 5-32 ng/dL INTERPRET MARYANA INFORMATION: Te stosterone by Pi[employer] Hel[employer] Free or bioavailable te stosterone measurements ma y provide supportive info rmation. For individuals on testosterone-arita ppressing hormone therapi es (e.g., antiandrogens o r estrogens), refer to cisgen millie female reference inter vals. For a complete set of all established ref erence intervals, refe r to [employer] /Tests/Pub/008 1058. This test was developed and its perform ance characteristics determined by [employer]. It has not been cleared or approved by the [place] Food and Drug Administration. This test was performed in a CLIA certified laboratory and is intended for clinical purposes.Perfor med By: [employer] [place] [id number] Director: Inocente cain MD, PhD [facility]/[id number] 22:14:00 Test Item Value Reference Range Interpretation Comments TESTOS (test 29 ng/dL 9-55 REFERENCE INTER ROXANNE: code = 2986-8) Testosterone by Piper Helper FemalesPremenop ausal ?9-55 ng/dLPostmenopa usal 5-32 ng/dL INTERPRET MARYANA INFORMATION: Te stosterone by Pi[employer] Hel[employer] Free or bioavailable te stosterone measurements mandeep sutherland provide supportive info rmation. For individuals on testosterone-arita ppressing hormone therapi es (e.g., antiandrogens o r estrogens), refer to cisgen millie female reference inter vals. For a complete set of all established ref erence intervals, refe r to l[employer] /Tests/Pub/008 1058. This test was developed and its perform ance characteristics determined by [employer]. It has not been cleared or approved by the [place] Food and Drug Administration. This test was performed in a CLIA certified laboratory and is intended for clinical purposes.Perfor med By: [employer] [place] [id number] Director: Inocente cain MD, PhD [facility] (THIAMINE), WHOLE [id number] 15:20:23 Test Item Value Reference Range Interpretation Comments Vitamin B1, Whole 124 nmol/L 70-180 INTERPRETI VE INFORMATION: Blood (test code = Vitamin B 1, Whole Blood 79407-1) This assay jackeline ures the concentration o f thiamine diphosphate (TD P), the primary active form of vitamin B1. Kishore roximately 90 percent of v itamin B1 present in whol e blood is TDP. Thiamine a nd thiamine monoph osphate, which comprise the remaining 10 pe rcent, are not measured. T his test was developed a nd its performance characteristics determined by [facility]. I t has not been cleared or approved by the [place] Food and Drug Administration. This test was performed i n a CLIA certified labor atory and is intended for clinical purposes.Perfor med By: [address] [id number] aboratory Director: Juanjose Phillips MD, PhD [facility]THIAMINE[facility] WHOLE [id number] 15:20:23 Test Item Value Reference Range Interpretation Comments Vitamin B1, Whole 124 nmol/L 70-180 INTERPRETI VE INFORMATION: Blood (test code = Vitamin B 1, Whole Blood 51511-0) This assay jackeline ures the concentration o f thiamine diphosphate (TD P), the primary active form of vitamin B1. Kishore roximately 90 percent of v itamin B1 present in whol e blood is TDP. Thiamine a nd thiamine monoph osphate, which comprise the remaining 10 pe rcent, are not measured. T his test was developed a nd its performance characteristics determined by [facility]. I t has not been cleared or approved by the [place] Food and Drug Administration. This test was performed i n a CLIA certified labor atory and is intended for clinical purposes.Perfor med By: [address] [id number] aboratory Director: Juanjose Phillips MD, PhD [facility]THIAMINE), WHOLE [id number] 15:20:23 Test Item Value Reference Range Interpretation Comments Vitamin B1, Whole 124 nmol/L 70-180 INTERPRETI VE INFORMATION: Blood (test code = Vitamin B 1, Whole Blood 09420-6) This assay jackeline ures the concentration o f thiamine diphosphate (TD P), the primary active form of vitamin B1. Kishore roximately 90 percent of v itamin B1 present in whol e blood is TDP. Thiamine a nd thiamine monoph osphate, which comprise the remaining 10 pe rcent, are not measured. T his test was developed a nd its performance characteristics determined by [facility]. I t has not been cleared or approved by the [place] Food and Drug Administration. This test was performed i n a CLIA certified labor atory and is intended for clinical purposes.Perfor med By: [address] [id number] aboratory Director: Juanjose Phillips MD, PhD [facility]THIAMINE), WHOLE [id number] 15:20:23 Test Item Value Reference Range Interpretation Comments Vitamin B1, Whole 124 nmol/L 70-180 INTERPRETI VE INFORMATION: Blood (test code = Vitamin B 1, Whole Blood 88281-5) This assay jackeline ures the concentration o [...] is intended for clinical purposes.Perfor med By: [address] [id number] aboratory Director: Juanjose Phillips MD, PhD [facility]THIAMINE), WHOLE [id number] 15:20:23 Test Item Value Reference Range Interpretation Comments Vitamin B1, Whole 124 nmol/L 70-180 INTERPRETI VE INFORMATION: Blood (test code = Vitamin B 1, Whole Blood 91484-0) This assay jackeline ures the concentration o f thiamine diphosphate (TD P), the primary active form of vitamin B1. Kishore roximately 90 percent of v itamin B1 present in whol e blood is TDP. Thiamine a nd thiamine monoph osphate, which comprise the remaining 10 pe rcent, are not measured. T his test was developed a nd its performance characteristics determined by [facility]. I t has not been cleared or approved by the [place] Food and Drug Administration. This test was performed i n a CLIA certified labor atory and is intended for clinical purposes.Perfor med By: [address] [id number] aboratory Director: Juanjose Phillips MD, PhD [facility]THIAMINE[facility] WHOLE [id number] 15:20:23 Test Item Value Reference Range Interpretation Comments Vitamin B1, Whole 124 nmol/L 70-180 INTERPRETI VE INFORMATION: Blood (test code = Vitamin B 1, Whole Blood 28654-3) This assay jackeline ures the concentration o [...] is intended for clinical purposes.Perfor med By: [address] [id number] aboratory Director: Juanjose Phillips MD, PhD [facility] (THIAMINE), WHOLE [id number] 15:20:23 Test Item Value Reference Range Interpretation Comments Vitamin B1, Whole 124 nmol/L 70-180 INTERPRETI VE INFORMATION: Blood (test code = Vitamin B 1, Whole Blood 92477-2) This assay jackeline ures the concentration o f thiamine diphosphate (TD P), the primary active form of vitamin B1. Kishore roximately 90 percent of v itamin B1 present in whol e blood is TDP. Thiamine a nd thiamine monoph osphate, which comprise the remaining 10 pe rcent, are not measured. T his test was developed a nd its performance characteristics determined by [facility]. I t has not been cleared or approved by the [place] Food and Drug Administration. This test was performed i n a CLIA certified labor atory and is intended for clinical purposes.Perfor med By: [address] [address]S aboratory Director: Juanjose Phillips MD, PhD [facility], [id number] 04:08:01 Test Item Value Reference Range Interpretation Comments VIT B6 (test 31.4 nmol/L 20.0-125.0 INTERPRETIVE IN FORMATION: code = 15435-6) Vitamin B6 ( Pyridoxal 5-Phosphate) Py ridoxal 5'-phosphate me asured in a specimen collec angel following an 8- hour or overnight fast accurately indicates vitam in B6 nutritional sta tus. Non-fasting spe cimen concentration r eflects recent vitamin intake. This test was d eveloped and its perform ance characteristics determined by [employer]. It has not been cl eared or approved by the [place] Food and Drug Admini stration. This test was p erformed in a CLIA certifie d laboratory and is intended for clinical purposes.Perfor med By: [address] [id number] ory Director: Juanjose Phillips MD, PhD [facility], [id number] 04:08:01 Test Item Value Reference Range Interpretation Comments VIT B6 (test 31.4 nmol/L 20.0-125.0 INTERPRETIVE IN FORMATION: code = 00600-4) Vitamin B6 ( Pyridoxal 5-Phosphate) Py ridoxal 5'-phosphate me asured in a specimen collec angel following an 8- hour or overnight fast accurately indicates vitam in B6 nutritional sta tus. Non-fasting spe cimen concentration r eflects recent vitamin intake. This test was d eveloped and its perform ance characteristics determined by [facility]. It has not been cl eared or approved by the [place] Food and Drug Admini stration. This test was p erformed in a CLIA certifie d laboratory and is intended for clinical purposes.Perfor med By: [address] [address]Zsytqvj ory Director: Juanjose Phillips MD, PhD [facility], [id number] 04:08:01 Test Item Value Reference Range Interpretation Comments VIT B6 (test 31.4 nmol/L 20.0-125.0 INTERPRETIVE IN FORMATION: code = 88535-5) Vitamin B6 ( Pyridoxal 5-Phosphate) Py ridoxal 5'-phosphate me asured in a specimen collec angel following an 8- hour or overnight fast accurately indicates vitam in B6 nutritional sta tus. Non-fasting spe cimen concentration r eflects recent vitamin intake. This test was d eveloped and its perform ance characteristics determined by [facility]. It has not been cl eared or approved by the [place] Food and Drug Admini stration. This test was p erformed in a CLIA certifie d laboratory and is intended for clinical purposes.Perfor med By: [address] [address]Ulprwlf or Director: Juanjose Phillips MD, PhD [facility], [id number] 04:08:01 Test Item Value Reference Range Interpretation Comments VIT B6 (test 31.4 nmol/L 20.0-125.0 INTERPRETIVE IN FORMATION: code = 41633-1) Vitamin B6 ( Pyridoxal 5-Phosphate) Py ridoxal 5'-phosphate me asured in a specimen collec angel following an 8- hour or overnight fast accurately indicates vitam in B6 nutritional sta tus. Non-fasting spe cimen concentration r eflects recent vitamin intake. This test was d eveloped and its perform ance characteristics determined by [facility] [employer]. It has not been cl eared or approved by the [place] Food and Drug Admini stration. This test was p erformed in a CLIA certifie d laboratory and is intended for clinical purposes.Perfor med By: [address] [address]Enptwek or Director: Juanjose Phillips MD, PhD [facility], [id number] 04:08:01 Test Item Value Reference Range Interpretation Comments VIT B6 (test 31.4 nmol/L 20.0-125.0 INTERPRETIVE IN FORMATION: code = 29819-0) Vitamin B6 ( Pyridoxal 5-Phosphate) Py ridoxal 5'-phosphate me asured in a specimen collec angel following an 8- hour or overnight fast accurately indicates vitam in B6 nutritional sta tus. Non-fasting spe cimen concentration r eflects recent vitamin intake. This test was d eveloped and its perform ance characteristics determined by [facility]. It has not been cl eared or approved by the [place] Food and Drug Admini stration. This test was p erformed in a CLIA certifie d laboratory and is intended for clinical purposes.Perfor med By: [address] [address]Fntnkxd or Director: Juanjose Phillips MD, PhD [facility], [id number] 04:08:01 Test Item Value Reference Range Interpretation Comments VIT B6 (test 31.4 nmol/L 20.0-125.0 INTERPRETIVE IN FORMATION: code = 93123-8) Vitamin B6 ( Pyridoxal 5-Phosphate) Py ridoxal 5'-phosphate me asured in a specimen collec angel following an 8- hour or overnight fast accurately indicates vitam in B6 nutritional sta tus. Non-fasting spe cimen concentration r eflects recent vitamin intake. This test was d eveloped and its perform ance characteristics determined by [employer]. It has not been cl eared or approved by the US Food and Drug Admini stration. This test was p erformed in a CLIA certifie d laboratory and is intended for clinical purposes.Perfor med By: [facility] [address] [employer] [place], [place] [address]Yyuftxc or Director: Juanjose Phillips MD, PhD [facility], [id number] 04:08:01 Test Item Value Reference Range Interpretation Comments VIT B6 (test 31.4 nmol/L 20.0-125.0 INTERPRETIVE IN FORMATION: code = 95504-0) Vitamin B6 ( Pyridoxal 5-Phosphate) Py ridoxal 5'-phosphate me asured in a specimen collec angel following an 8- hour or overnight fast accurately indicates vitam in B6 nutritional sta tus. Non-fasting spe cimen concentration r eflects recent vitamin intake. This test was d eveloped and its perform ance characteristics determined by [facility]. It has not been cl eared or approved by the [place] Food and Drug Admini stration. This test was p erformed in a CLIA certifie d laboratory and is intended for clinical purposes.Perfor med By: [facility] [address] [employer] [place], [place] [address]Oyidtvc or Director: Juanjose Phillips MD, PhD [facility], [id number] 01:41:48 Test Item Value Reference Range Interpretation Comments VIT D 25OH (test code = 18 ng/mL 25-80 L 62605-8) LIA (test code = LIA) Deficiency: <20 ng/mLInsufficiency: 20-24 ng/mLOptimal: 25-80 ng/mL Lab Interpretation (test Abnormal code = 82661-1) [facility], [id number] 01:41:48 Test Item Value Reference Range Interpretation Comments VIT D 25OH (test code = 18 ng/mL 25-80 L 42623-1) LIA (test code = LIA) Deficiency: <20 ng/mLInsufficiency: 20-24 ng/mLOptimal: 25-80 ng/mL Lab Interpretation (test Abnormal code = 76574-5) [facility], [id number] 01:41:48 Test Item Value Reference Range Interpretation Comments VIT D 25OH (test code = 18 ng/mL 25-80 L 88739-9) LIA (test code = LIA) Deficiency: <20 ng/mLInsufficiency: 20-24 ng/mLOptimal: 25-80 ng/mL Lab Interpretation (test Abnormal code = 55398-2) [facility], [id number] 21:49:56 Test Item Value Reference Range Interpretation Comments VIT B12 (test code = 400 pg/mL 240-930 [id number]) LIA (test code = LIA) Biotin has been reported to cause a positive bias, interpret results relative to patient's use of biotin. Lab Interpretation (test Normal code = 55782-6) [facility], [id number] 21:49:56 Test Item Value Reference Range Interpretation Comments VIT B12 (test code = 400 pg/mL 240-930 [id number]) LIA (test code = LIA) Biotin has been reported to cause a positive bias, interpret results relative to patient's use of biotin. Lab Interpretation (test Normal code = 99924-7) [facility], [id number] 21:49:56 Test Item Value Reference Range Interpretation Comments VIT B12 (test code = 400 pg/mL 240-930 [id number]) LIA (test code = LIA) Biotin has been reported to cause a positive bias, interpret results relative to patient's use of biotin. Lab Interpretation (test Normal code = 90840-3) [facility], [id number] 21:49:56 Test Item Value Reference Range Interpretation Comments VIT B12 (test code = 400 pg/mL 240-930 [id number]) LIA (test code = LIA) Biotin has been reported to cause a positive bias, interpret results relative to patient's use of biotin. Lab Interpretation (test Normal code = 15024-2) [facility], [id number] 21:49:56 Test Item Value Reference Range Interpretation Comments VIT B12 (test code = 400 pg/mL 240-930 [id number]) LIA (test code = LIA) Biotin has been reported to cause a positive bias, interpret results relative to patient's use of biotin. Lab Interpretation (test Normal code = 79342-9) [facility], [id number] 21:49:56 Test Item Value Reference Range Interpretation Comments VIT B12 (test code = 400 pg/mL 240-930 [id number]) LIA (test code = LIA) Biotin has been reported to cause a positive bias, interpret results relative to patient's use of biotin. Lab Interpretation (test Normal code = 42485-6) [facility], [id number] 21:49:56 Test Item Value Reference Range Interpretation Comments VIT B12 (test code = 400 pg/mL 240-930 [id number]) LIA (test code = LIA) Biotin has been reported to cause a positive bias, interpret results relative to patient's use of biotin. Lab Interpretation (test Normal code = 43392-5) [facility] [id number] 21:28:58 Test Item Value Reference Range Interpretation Comments FSH (test code = 3.63 mIU/mL 6136839414) LIA (test code = FSH Reference Ranges LIA) Follicular Phase: ? ? ? 3.8-8.8 mIU/mLMid-cycle Peak: ? 4.5-22.85 mIU/mLLuteal Phase: ? 1.7-5.1 mIU/mLPost-menopause female: ?16.7-113.6 mIU/mLAdult male: ? 1.2-19 mIU/mL [facility] [id number] 21:28:58 Test Item Value Reference Range Interpretation Comments LH (test code = 5.92 mIU/mL [id number]) LIA (test code = LH Reference Ranges: LIA) Menstrating Female ? ? Follicular phase ? ? 2.1-10.9 mIU/mL ? ? Mid-cycle peak ? ? ? 19.1-103.0 mIU/mL ? ? Luteal phase ? 1.2-12.8 mIU/mL Post-menopausal female ? ?10.8-58.6 mIU/mL Adule Male ?1.2-8.6 mIU/mL [facility] [id number] 21:28:58 Test Item Value Reference Range Interpretation Comments FSH (test code = 3.63 mIU/mL [id number]) LIA (test code = FSH Reference Ranges LIA) Follicular Phase: ? ? ? 3.8-8.8 mIU/mLMid-cycle Peak: ? 4.5-22.85 mIU/mLLuteal Phase: ? 1.7-5.1 mIU/mLPost-menopause female: ?16.7-113.6 mIU/mLAdult male: ? 1.2-19 mIU/mL [facility] [id number] 21:28:58 Test Item Value Reference Range Interpretation Comments LH (test code = 5.92 mIU/mL [id number]) LIA (test code = LH Reference Ranges: LIA) Menstrating Female ? ? Follicular phase ? ? 2.1-10.9 mIU/mL ? ? Mid-cycle peak ? ? ? 19.1-103.0 mIU/mL ? ? Luteal phase ? 1.2-12.8 mIU/mL Post-menopausal female ? ?10.8-58.6 mIU/mL Adule Male ?1.2-8.6 mIU/mL [facility] [id number] 21:28:58 Test Item Value Reference Range Interpretation Comments LH (test code = 5.92 mIU/mL [id number]) LIA (test code = LH Reference Ranges: LIA) Menstrating Female ? ? Follicular phase ? ? 2.1-10.9 mIU/mL ? ? Mid-cycle peak ? ? ? 19.1-103.0 mIU/mL ? ? Luteal phase ? 1.2-12.8 mIU/mL Post-menopausal female ? ?10.8-58.6 mIU/mL Adule Male ?1.2-8.6 mIU/mL [facility] [id number] 21:28:58 Test Item Value Reference Range Interpretation Comments FSH (test code = 3.63 mIU/mL [id number]) LIA (test code = FSH Reference Ranges LIA) Follicular Phase: ? ? ? 3.8-8.8 mIU/mLMid-cycle Peak: ? 4.5-22.85 mIU/mLLuteal Phase: ? 1.7-5.1 mIU/mLPost-menopause female: ?16.7-113.6 mIU/mLAdult male: ? 1.2-19 mIU/mL [facility] [id number] 21:28:58 Test Item Value Reference Range Interpretation Comments FSH (test code = 3.63 mIU/mL [id number]) LIA (test code = FSH Reference Ranges LIA) Follicular Phase: ? ? ? 3.8-8.8 mIU/mLMid-cycle Peak: ? 4.5-22.85 mIU/mLLuteal Phase: ? 1.7-5.1 mIU/mLPost-menopause female: ?16.7-113.6 mIU/mLAdult male: ? 1.2-19 mIU/mL [facility] [id number] 21:28:58 Test Item Value Reference Range Interpretation Comments LH (test code = 5.92 mIU/mL [id number]) LIA (test code = LH Reference Ranges: LIA) Menstrating Female ? ? Follicular phase ? ? 2.1-10.9 mIU/mL ? ? Mid-cycle peak ? ? ? 19.1-103.0 mIU/mL ? ? Luteal phase ? 1.2-12.8 mIU/mL Post-menopausal female ? ?10.8-58.6 mIU/mL Adule Male ?1.2-8.6 mIU/mL [facility] [id number] 21:28:58 Test Item Value Reference Range Interpretation Comments FSH (test code = 3.63 mIU/mL [id number]) LIA (test code = FSH Reference Ranges LIA) Follicular Phase: ? ? ? 3.8-8.8 mIU/mLMid-cycle Peak: ? 4.5-22.85 mIU/mLLuteal Phase: ? 1.7-5.1 mIU/mLPost-menopause female: ?16.7-113.6 mIU/mLAdult male: ? 1.2-19 mIU/mL [facility] [id number] 21:28:58 Test Item Value Reference Range Interpretation Comments LH (test code = 5.92 mIU/mL [id number]) LIA (test code = LH Reference Ranges: LIA) Menstrating Female ? ? Follicular phase ? ? 2.1-10.9 mIU/mL ? ? Mid-cycle peak ? ? ? 19.1-103.0 mIU/mL ? ? Luteal phase ? 1.2-12.8 mIU/mL Post-menopausal female ? ?10.8-58.6 mIU/mL Adule Male ?1.2-8.6 mIU/mL [facility] [id number] 21:28:58 Test Item Value Reference Range Interpretation Comments FSH (test code = 3.63 mIU/mL [id number]) LIA (test code = FSH Reference Ranges LIA) Follicular Phase: ? ? ? 3.8-8.8 mIU/mLMid-cycle Peak: ? 4.5-22.85 mIU/mLLuteal Phase: ? 1.7-5.1 mIU/mLPost-menopause female: ?16.7-113.6 mIU/mLAdult male: ? 1.2-19 mIU/mL [facility] [id number] 21:28:58 Test Item Value Reference Range Interpretation Comments LH (test code = 5.92 mIU/mL [id number]) LIA (test code = LH Reference Ranges: LIA) Menstrating Female ? ? Follicular phase ? ? 2.1-10.9 mIU/mL ? ? Mid-cycle peak ? ? ? 19.1-103.0 mIU/mL ? ? Luteal phase ? 1.2-12.8 mIU/mL Post-menopausal female ? ?10.8-58.6 mIU/mL Adule Male ?1.2-8.6 mIU/mL [facility] [id number] 21:28:58 Test Item Value Reference Range Interpretation Comments FSH (test code = 3.63 mIU/mL [id number]) LIA (test code = FSH Reference Ranges LIA) Follicular Phase: ? ? ? 3.8-8.8 mIU/mLMid-cycle Peak: ? 4.5-22.85 mIU/mLLuteal Phase: ? 1.7-5.1 mIU/mLPost-menopause female: ?16.7-113.6 mIU/mLAdult male: ? 1.2-19 mIU/mL [facility] [id number] 21:28:58 Test Item Value Reference Range Interpretation Comments LH (test code = 5.92 mIU/mL [id number]) LIA (test code = LH Reference Ranges: LIA) Menstrating Female ? ? Follicular phase ? ? 2.1-10.9 mIU/mL ? ? Mid-cycle peak ? ? ? 19.1-103.0 mIU/mL ? ? Luteal phase ? 1.2-12.8 mIU/mL Post-menopausal female ? ?10.8-58.6 mIU/mL Adule Male ?1.2-8.6 mIU/mL [id number] 21:21:09 Test Item Value Reference Range Interpretation Comments HCV Ab (test code = 65793-9) Negative HCV Semi-Quantitative (test code = 0.01 12182-1) [facility] [id number] 21:21:09 Test Item Value Reference Range Interpretation Comments HCV Ab (test code = 42636-2) Negative HCV Semi-Quantitative (test code = 0.01 95395-1) [facility] [id number] 21:21:09 Test Item Value Reference Range Interpretation Comments HCV Ab (test code = 44019-7) Negative HCV Semi-Quantitative (test code = 0.01 86591-4) [facility] [id number] 21:21:09 Test Item Value Reference Range Interpretation Comments HCV Ab (test code = 10245-5) Negative HCV Semi-Quantitative (test code = 0.01 81525-3) [facility] [id number] 21:21:09 Test Item Value Reference Range Interpretation Comments HCV Ab (test code = 11317-7) Negative HCV Semi-Quantitative (test code = 0.01 82717-3) [facility] [id number] 21:21:09 Test Item Value Reference Range Interpretation Comments HCV Ab (test code = 01832-3) Negative HCV Semi-Quantitative (test code = 0.01 29935-3) [facility] [id number] 21:21:09 Test Item Value Reference Range Interpretation Comments HCV Ab (test code = 73631-6) Negative HCV Semi-Quantitative (test code = 0.01 41182-7) [facility] [id number] 21:00:45 Test Item Value Reference Range Interpretation Comments JAKY AM (test code = 10.5 ug/dL 4.5-23.0 1450815346) LIA (test code = LIA) Biotin has been reported to cause a positive bias, interpret results relative to patient's use of biotin. Lab Interpretation (test Normal code = 60540-7) [facility] [id number] 21:00:45 Test Item Value Reference Range Interpretation Comments JAKY AM (test code = 10.5 ug/dL 4.5-23.0 2596130432) LIA (test code = LIA) Biotin has been reported to cause a positive bias, interpret results relative to patient's use of biotin. Lab Interpretation (test Normal code = 87166-3) [facility] [id number] 21:00:45 Test Item Value Reference Range Interpretation Comments JAKY AM (test code = 10.5 ug/dL 4.5-23.0 0683471359) LIA (test code = LIA) Biotin has been reported to cause a positive bias, interpret results relative to patient's use of biotin. Lab Interpretation (test Normal code = 94589-8) [facility] [id number] 21:00:45 Test Item Value Reference Range Interpretation Comments JAKY AM (test code = 10.5 ug/dL 4.5-23.0 9477790316) LIA (test code = LIA) Biotin has been reported to cause a positive bias, interpret results relative to patient's use of biotin. Lab Interpretation (test Normal code = 03524-0) [facility] [id number] 21:00:45 Test Item Value Reference Range Interpretation Comments JAKY AM (test code = 10.5 ug/dL 4.5-23.0 7273037918) LIA (test code = LIA) Biotin has been reported to cause a positive bias, interpret results relative to patient's use of biotin. Lab Interpretation (test Normal code = 50652-1) [facility] [id number] 21:00:45 Test Item Value Reference Range Interpretation Comments JAKY AM (test code = 10.5 ug/dL 4.5-23.0 2913172217) LIA (test code = LIA) Biotin has been reported to cause a positive bias, interpret results relative to patient's use of biotin. Lab Interpretation (test Normal code = 06861-7) [facility] [id number] 21:00:45 Test Item Value Reference Range Interpretation Comments JAKY AM (test code = 10.5 ug/dL 4.5-23.0 9437726510) LIA (test code = LIA) Biotin has been reported to cause a positive bias, interpret results relative to patient's use of biotin. Lab Interpretation (test Normal code = 34726-3) [facility] [id number] 20:23:21 Test Item Value Reference Range Interpretation Comments FERRITIN (test code = 16.4 ng/mL 6.0-137.0 7275054322) LIA (test code = LIA) Biotin has been reported to cause a negative bias, interpret results relative to patient's use of biotin. Lab Interpretation (test Normal code = 23143-2) [facility] [id number] 20:23:21 Test Item Value Reference Range Interpretation Comments FERRITIN (test code = 16.4 ng/mL 6.0-137.0 5513748437) LIA (test code = LIA) Biotin has been reported to cause a negative bias, interpret results relative to patient's use of biotin. Lab Interpretation (test Normal code = 19751-7) [facility] [id number] 20:23:21 Test Item Value Reference Range Interpretation Comments FERRITIN (test code = 16.4 ng/mL 6.0-137.0 5904381653) LIA (test code = LIA) Biotin has been reported to cause a negative bias, interpret results relative to patient's use of biotin. Lab Interpretation (test Normal code = 88520-1) [place] [id number] 20:23:21 Test Item Value Reference Range Interpretation Comments FERRITIN (test code = 16.4 ng/mL 6.0-137.0 7521278691) LIA (test code = LIA) Biotin has been reported to cause a negative bias, interpret results relative to patient's use of biotin. Lab Interpretation (test Normal code = 61377-6) [facility] [id number] 20:23:21 Test Item Value Reference Range Interpretation Comments FERRITIN (test code = 16.4 ng/mL 6.0-137.0 5643744036) LIA (test code = LIA) Biotin has been reported to cause a negative bias, interpret results relative to patient's use of biotin. Lab Interpretation (test Normal code = 11678-1) [facility] [id number] 20:23:21 Test Item Value Reference Range Interpretation Comments FERRITIN (test code = 16.4 ng/mL 6.0-137.0 4587260023) LIA (test code = LIA) Biotin has been reported to cause a negative bias, interpret results relative to patient's use of biotin. Lab Interpretation (test Normal code = 61510-1) [facility] [id number] 20:23:21 Test Item Value Reference Range Interpretation Comments FERRITIN (test code = 16.4 ng/mL 6.0-137.0 1932849069) LIA (test code = LIA) Biotin has been reported to cause a negative bias, interpret results relative to patient's use of biotin. Lab Interpretation (test Normal code = 14679-5) [facility] [id number] 19:56:57 Test Item Value Reference Range Interpretation Comments IRON (test code = 5865743945) 112 ug/dL 50-160 TIBC (test code = 5301944174) 461 ug/dL 250-410 H % FE SAT (test code = 0785678122) 24 % 20-50 Lab Interpretation (test code = Abnormal 07796-0) [facility]2023-04-12 19:56:57 Test Item Value Reference Range Interpretation Comments IRON (test code = 0568821896) 112 ug/dL 50-160 TIBC (test code = 5744696304) 461 ug/dL 250-410 H % FE SAT (test code = 6919398986) 24 % 20-50 Lab Interpretation (test code = Abnormal 41109-7) [facility] [id number] 19:56:57 Test Item Value Reference Range Interpretation Comments IRON (test code = 5780722330) 112 ug/dL 50-160 TIBC (test code = 6996885959) 461 ug/dL 250-410 H % FE SAT (test code = 0711553935) 24 % 20-50 Lab Interpretation (test code = Abnormal 77183-4) [facility] [id number] 19:56:57 Test Item Value Reference Range Interpretation Comments IRON (test code = 4251519127) 112 ug/dL 50-160 TIBC (test code = 0405677806) 461 ug/dL 250-410 H % FE SAT (test code = 6265609526) 24 % 20-50 Lab Interpretation (test code = Abnormal 82286-8) [facility]2023-04-12 19:56:57 Test Item Value Reference Range Interpretation Comments IRON (test code = 4216430160) 112 ug/dL 50-160 TIBC (test code = 4274735390) 461 ug/dL 250-410 H % FE SAT (test code = 6266858529) 24 % 20-50 Lab Interpretation (test code = Abnormal 19879-1) [facility] [id number] 19:56:57 Test Item Value Reference Range Interpretation Comments IRON (test code = 7676059658) 112 ug/dL 50-160 TIBC (test code = 4170590775) 461 ug/dL 250-410 H % FE SAT (test code = 9622697252) 24 % 20-50 Lab Interpretation (test code = Abnormal 41054-3) [facility] [id number] 19:56:57 Test Item Value Reference Range Interpretation Comments IRON (test code = 8058050342) 112 ug/dL 50-160 TIBC (test code = 3982627323) 461 ug/dL 250-410 H % FE SAT (test code = 0294176255) 24 % 20-50 Lab Interpretation (test code = Abnormal 80582-3) [facility] METABOLIC PANEL (21261)2022-08-17 19:47:51 Test Item Value Reference Range Interpretation Comments NA (test code = 139 mmol/L 135-145 6698483948) K (test code = 4.0 mmol/L 3.5-5.0 2033556346) CL (test code = 103 mmol/L 98-108 1980911367) CO2 TOTAL (test code 23 mmol/L 23-31 = 2904010304) AGAP (test code = 13 2-16 9261997501) BUN (test code = 11 mg/dL 7-23 6231107656) GLUCOSE (test code = 85 mg/dL 70-110 0924080060) CREATININE (test code 0.54 mg/dL 0.50-1.04 = 0859504220) TOTAL BILI (test code 1.0 mg/dL 0.1-1.1 = 3798484234) CALCIUM (test code = 9.3 mg/dL 8.6-10.6 7816908431) T PROTEIN (test code 7.5 g/dL 6.3-8.2 = 4249504533) ALBUMIN (test code = 4.7 g/dL 3.5-5.0 7351246286) ALK PHOS (test code = 71 U/L 34-122 9817976894) ALTv (test code = 16 U/L 5-35 1742-6) AST(SGOT) (test code 19 U/L 13-40 = 1405306330) eGFR (test code = 139.9 mL/min/1.73m2 1184661732) LIA (test code = LIA) Association of [...] or urine or abnormalities in imaging tests). [place] 81118023-04-12 19:47:30 Test Item Value Reference Range Interpretation Comments IRON (test code = 8710670283) 111 ug/dL 50-160 Lab Interpretation (test code = Normal 74405-2) [place] [address]-04-12 19:47:30 Test Item Value Reference Range Interpretation Comments IRON (test code = 4326853597) 111 ug/dL 50-160 Lab Interpretation (test code = Normal 99215-1) [place] [address]-04-12 19:47:30 Test Item Value Reference Range Interpretation Comments IRON (test code = 0970989014) 111 ug/dL 50-160 Lab Interpretation (test code = Normal 27390-9) [facility] Test Item Value Reference Range Interpretation Comments IRON (test code = 5273939459) 111 ug/dL 50-160 Lab Interpretation (test code = Normal 11475-5) [facility]:47[facility] Test Item Value Reference Range Interpretation Comments IRON (test code = 8275503868) 111 ug/dL 50-160 Lab Interpretation (test code = Normal 20373-9) [place] 81118023-04-12 19:47:30 Test Item Value Reference Range Interpretation Comments IRON (test code = 6617331593) 111 ug/dL 50-160 Lab Interpretation (test code = Normal 53775-1) [place] [id number] 19:47:30 Test Item Value Reference Range Interpretation Comments IRON (test code = 5635784015) 111 ug/dL 50-160 Lab Interpretation (test code = Normal 71492-9) [facility] WITH [id number] 19:05:16 Test Item Value Reference Range Interpretation Comments WBC (test code = 6.01 See_Comment [Automated 2201-2) message] The sy stem which generated this result transmitted reference range : 4.30 - 11.10 10*3/?L. The reference range was not used to interpret this result as normal/abnormal . RBC (test code = 4.80 See_Comment [Automated 701-8) message] The sy stem which generated this [...] (test code = 35.6 fL 39.0-49.9 L 59378-0) RDW-CV (test code = 11.7 % 12.0-15.5 L 788-0) PLT (test code = 226 See_Comment [Automated 777-3) message] The sy stem which generated this result transmitted reference range : 166 - 358 10*3/ ?L. The reference r vimal was not used to interpret this result as normal/abnormal . MPV (test code = 11.2 fL 9.5-12.9 31187-5) NRBC/100 WBC (test 0.0 See_Comment [Automat ed code = 8538029731) message] The system which generated this result transmitted reference range : 0.0 - 10.0 /100 WBCs. The refer ence range was not u sed to interpret th is result as normal/abnormal . NRBC x10^3 (test code See_Comment [Auto mated = 2768256091) message] The s ystem which generated this result transmitted reference range : 10*3/?L. The reference range was not used to interpret this result as normal/abnormal . GRAN MAT (NEUT) % 65.4 % (test code = 770-8) IMM GRAN % (test code 0.20 % = 1494278631) LYMPH % (test code = 26.6 % 736-9) MONO % (test code = 6.0 % 5905-5) EOS % (test code = 1.0 % 713-8) BASO % (test code = 0.8 % 706-2) GRAN MAT x10^3(ANC) 3.93 10*3/uL 1.88-7.09 (test code = 4091634388) IMM GRAN x10^3 (test 0.00-0.06 code = 8762022891) LYMPH x10^3 (test code 1.60 10*3/uL 1.32-3.29 = 731-0) MONO x10^3 (test code 0.36 10*3/uL 0.33-0.92 = 742-7) EOS x10^3 (test code = 0.06 10*3/uL 0.03-0.39 711-2) BASO x10^3 (test code 0.05 10*3/uL 0.01-0.07 = 704-7) Lab Interpretation Abnormal (test code = 41227-7) [facility] [id number] 20:56:00 Test Item Value Reference Range Interpretation Comments POCT PREG (test code = 1605) Negative On board controls acceptable with C Yes Line (test code = 3574) POCT PREG LOT # (test code = 3575) POCT PREG TEST DATE (test code = 3576) Lab Interpretation (test code = Normal 61153-9) [facility] MOLECULAR [id number] 23:56:46 Test Item Value Reference Range Interpretation Comments POCT Molecular FluA (test code = Negative Negative 96210-4) POCT Molecular FluB (test code = Negative Negative 40581-3) Lab Interpretation (test code = Normal 38871-7) [facility] MOLECULAR [id number] 23:56:46 Test Item Value Reference Range Interpretation Comments POCT Molecular FluA (test code = Negative Negative 40172-9) POCT Molecular FluB (test code = Negative Negative 87480-8) Lab Interpretation (test code = Normal 79559-4) [facility] MOLECULAR [id number] 23:56:46 Test Item Value Reference Range Interpretation Comments POCT Molecular FluA (test code = Negative Negative 06165-8) POCT Molecular FluB (test code = Negative Negative 46194-7) Lab Interpretation (test code = Normal 30254-8) [facility] MOLECULAR [id number] 23:50:02 Test Item Value Reference Range Interpretation Comments POCT Molecular Strep (test code = Negative Negative 53996-0) Lab Interpretation (test code = Normal 91583-7) [facility] MOLECULAR [id number] 23:50:02 Test Item Value Reference Range Interpretation Comments POCT Molecular Strep (test code = Negative Negative 24189-4) Lab Interpretation (test code = Normal 40982-1) [facility] MOLECULAR [id number] 23:50:02 Test Item Value Reference Range Interpretation Comments POCT Molecular Strep (test code = Negative Negative 92886-9) Lab Interpretation (test code = Normal 34523-0) [facility] WITH [id number] 11:33:07 Test Item Value Reference Range Interpretation [...] (test code = 38.1 fL 39.0-49.9 L 23637-9) RDW-CV (test code = 12.4 % 12.0-15.5 788-0) PLT (test code = See_Comment [Automated 777-3) message] The sy stem which generated this result transmitted reference range : 166 - 358 10*3/ ?L. The reference r vimal was not used to interpret this result as normal/abnormal . MPV (test code = 10.6 fL 9.5-12.9 53594-8) NRBC/100 WBC (test See_Comment [Automat ed code = 6733526799) message] The system which generated this result transmitted reference range : 0.0 - 10.0 /100 WBCs. The refer ence range was not u sed to interpret th is result as normal/abnormal . NRBC x10^3 (test code See_Comment [Auto mated = 7016396710) message] The s ystem which generated this result transmitted reference range : 10*3/?L. The reference range was not used to interpret this result as normal/abnormal . GRAN MAT (NEUT) % 42.2 % (test code = 770-8) IMM GRAN % (test code 0.30 % = 5273679775) LYMPH % (test code = 40.3 % 736-9) MONO % (test code = 14.6 % 5905-5) EOS % (test code = 2.0 % 713-8) BASO % (test code = 0.6 % 706-2) GRAN MAT x10^3(ANC) 1.48 10*3/uL 1.88-7.09 L (test code = 3925256530) IMM GRAN x10^3 (test 0.00-0.06 code = 3945877347) LYMPH x10^3 (test code 1.41 10*3/uL 1.32-3.29 = 731-0) MONO x10^3 (test code 0.51 10*3/uL 0.33-0.92 = 742-7) EOS x10^3 (test code = 0.07 10*3/uL 0.03-0.39 711-2) BASO x10^3 (test code 0.01-0.07 = 704-7) REACT LYMPHS (test Rare code = 6646245649) Lab Interpretation Abnormal (test code = 33098-9) [facility] WITH [id number] 11:33:07 Test Item Value Reference Range Interpretation [...] (test code = 38.1 fL 39.0-49.9 L 67029-6) RDW-CV (test code = 12.4 % 12.0-15.5 788-0) PLT (test code = See_Comment [Automated 777-3) message] The sy stem which generated this result transmitted reference range : 166 - 358 10*3/ ?L. The reference r vimal was not used to interpret this result as normal/abnormal . MPV (test code = 10.6 fL 9.5-12.9 82081-7) NRBC/100 WBC (test See_Comment [Automat ed code = 1383325767) message] The system which generated this result transmitted reference range : 0.0 - 10.0 /100 WBCs. The refer ence range was not u sed to interpret th is result as normal/abnormal . NRBC x10^3 (test code See_Comment [Auto mated = 0675438535) message] The s ystem which generated this result transmitted reference range : 10*3/?L. The reference range was not used to interpret this result as normal/abnormal . GRAN MAT (NEUT) % 42.2 % (test code = 770-8) IMM GRAN % (test code 0.30 % = 1505577960) LYMPH % (test code = 40.3 % 736-9) MONO % (test code = 14.6 % 5905-5) EOS % (test code = 2.0 % 713-8) BASO % (test code = 0.6 % 706-2) GRAN MAT x10^3(ANC) 1.48 10*3/uL 1.88-7.09 L (test code = 1768275626) IMM GRAN x10^3 (test 0.00-0.06 code = 7467659006) LYMPH x10^3 (test code 1.41 10*3/uL 1.32-3.29 = 731-0) MONO x10^3 (test code 0.51 10*3/uL 0.33-0.92 = 742-7) EOS x10^3 (test code = 0.07 10*3/uL 0.03-0.39 711-2) BASO x10^3 (test code 0.01-0.07 = 704-7) REACT LYMPHS (test Rare code = 4579225907) Lab Interpretation Abnormal (test code = 89775-5) [facility] WITH [id number] 11:33:07 Test Item Value Reference Range Interpretation [...] (test code = 38.1 fL 39.0-49.9 L 68564-0) RDW-CV (test code = 12.4 % 12.0-15.5 788-0) PLT (test code = See_Comment [Automated 777-3) message] The sy stem which generated this result transmitted reference range : 166 - 358 10*3/ ?L. The reference r vimal was not used to interpret this result as normal/abnormal . MPV (test code = 10.6 fL 9.5-12.9 26701-0) NRBC/100 WBC (test See_Comment [Automat ed code = 0018138210) message] The system which generated this result transmitted reference range : 0.0 - 10.0 /100 WBCs. The refer ence range was not u sed to interpret th is result as normal/abnormal . NRBC x10^3 (test code See_Comment [Auto mated = 7757485405) message] The s ystem which generated this result transmitted reference range : 10*3/?L. The reference range was not used to interpret this result as normal/abnormal . GRAN MAT (NEUT) % 42.2 % (test code = 770-8) IMM GRAN % (test code 0.30 % = 7950686146) LYMPH % (test code = 40.3 % 736-9) MONO % (test code = 14.6 % 5905-5) EOS % (test code = 2.0 % 713-8) BASO % (test code = 0.6 % 706-2) GRAN MAT x10^3(ANC) 1.48 10*3/uL 1.88-7.09 L (test code = 9354607550) IMM GRAN x10^3 (test 0.00-0.06 code = 3890180703) LYMPH x10^3 (test code 1.41 10*3/uL 1.32-3.29 = 731-0) MONO x10^3 (test code 0.51 10*3/uL 0.33-0.92 = 742-7) EOS x10^3 (test code = 0.07 10*3/uL 0.03-0.39 711-2) BASO x10^3 (test code 0.01-0.07 = 704-7) REACT LYMPHS (test Rare code = 7458139066) Lab Interpretation Abnormal (test code = 38901-3) [facility] METABOLIC PANEL (NA, K, CL, CO2, GLUCOSE, BUN, CREATININE, CA)2022-03-21 11:20:02 Test Item Value Reference Range Interpretation Comments NA (test code = 139 mmol/L 135-145 5217095909) K (test code = 3.8 mmol/L 3.5-5.0 0140408881) CL (test code = 113 mmol/L 98-108 H 7990274270) CO2 TOTAL (test code = 18 mmol/L 23-31 L 0358649722) AGAP (test code = 2-16 5645357654) BUN (test code = 8 mg/dL 7-23 1933866301) GLUCOSE (test code = 92 mg/dL 70-110 4468578272) CREATININE (test code = 0.56 mg/dL 0.50-1.04 8030095137) CALCIUM (test code = 8.1 mg/dL 8.6-10.6 L 0962002872) eGFR (test code = mL/min/1.73m2 9051796862) LIA (test code = LIA) Association of [...] tests). Lab Interpretation Abnormal (test code = 30944-8) [facility] METABOLIC PANEL (NA, K, CL, CO2, GLUCOSE, BUN, CREATININE, CA)2022-03-21 11:20:02 Test Item Value Reference Range Interpretation Comments NA (test code = 139 mmol/L 135-145 1009734443) K (test code = 3.8 mmol/L 3.5-5.0 5395448736) CL (test code = 113 mmol/L 98-108 H 8152914472) CO2 TOTAL (test code = 18 mmol/L 23-31 L 4974918944) AGAP (test code = 2-16 0730279937) BUN (test code = 8 mg/dL 7-23 8893242439) GLUCOSE (test code = 92 mg/dL 70-110 4089619314) CREATININE (test code = 0.56 mg/dL 0.50-1.04 4783450783) CALCIUM (test code = 8.1 mg/dL 8.6-10.6 L 4872637458) eGFR (test code = mL/min/1.73m2 3500039966) LIA (test code = LIA) Association of [...] tests). Lab Interpretation Abnormal (test code = 72277-5) [facility] METABOLIC PANEL (NA, K, CL, CO2, GLUCOSE, BUN, CREATININE, CA)2022-03-21 11:20:02 Test Item Value Reference Range Interpretation Comments NA (test code = 139 mmol/L 135-145 6265836047) K (test code = 3.8 mmol/L 3.5-5.0 2758298355) CL (test code = 113 mmol/L 98-108 H 4463181557) CO2 TOTAL (test code = 18 mmol/L 23-31 L 4600408163) AGAP (test code = 2-16 1591291333) BUN (test code = 8 mg/dL 7-23 6784069344) GLUCOSE (test code = 92 mg/dL 70-110 8312328064) CREATININE (test code = 0.56 mg/dL 0.50-1.04 3103230210) CALCIUM (test code = 8.1 mg/dL 8.6-10.6 L 1713046695) eGFR (test code = mL/min/1.73m2 9022280822) LIA (test code = LIA) Association of [...] tests). Lab Interpretation Abnormal (test code = 65650-3) [facility] [id number] 04:23:39 Test Item Value Reference Range Interpretation Comments MAGNESIUM (test code = 4548976600) 2.2 mg/dL 1.7-2.4 Lab Interpretation (test code = Normal 60689-1) [facility] [id number] 04:23:39 Test Item Value Reference Range Interpretation Comments PHOSPHORUS (test code = 6497770832) 3.4 mg/dL 2.5-5.0 Lab Interpretation (test code = Normal 28620-8) [facility] [id number] 04:23:39 Test Item Value Reference Range Interpretation Comments PHOSPHORUS (test code = 8794429164) 3.4 mg/dL 2.5-5.0 Lab Interpretation (test code = Normal 01900-5) [facility] [id number] 04:23:39 Test Item Value Reference Range Interpretation Comments MAGNESIUM (test code = 4837707853) 2.2 mg/dL 1.7-2.4 Lab Interpretation (test code = Normal 30238-8) [facility] [id number] 04:23:39 Test Item Value Reference Range Interpretation Comments PHOSPHORUS (test code = 5465217635) 3.4 mg/dL 2.5-5.0 Lab Interpretation (test code = Normal 19549-7) [facility] [id number] 04:23:39 Test Item Value Reference Range Interpretation Comments MAGNESIUM (test code = 9773850874) 2.2 mg/dL 1.7-2.4 Lab Interpretation (test code = Normal 96222-9) [facility] WITH [id number] 23:51:10 Test Item Value Reference Range Interpretation Comments WBC (test code = See_Comment L [Automated 5490-2) message] The sy stem which generated this result transmitted reference range : 4.30 - 11.10 10*3/?L. The reference range was not used to interpret this result as normal/abnormal . RBC (test code = See_Comment [Automated 259-8) message] The sy stem which generated this [...] (test code = 38.6 fL 39.0-49.9 L 38461-6) RDW-CV (test code = 12.5 % 12.0-15.5 788-0) PLT (test code = See_Comment [Automated 777-3) message] The sy stem which generated this result transmitted reference range : 166 - 358 10*3/ ?L. The reference r vimal was not used to interpret this result as normal/abnormal . MPV (test code = 10.4 fL 9.5-12.9 02279-1) NRBC/100 WBC (test See_Comment [Automat ed code = 5666554685) message] The system which generated this result transmitted reference range : 0.0 - 10.0 /100 WBCs. The refer ence range was not u sed to interpret th is result as normal/abnormal . NRBC x10^3 (test code See_Comment [Auto mated = 3568174279) message] The s ystem which generated this result transmitted reference range : 10*3/?L. The reference range was not used to interpret this result as normal/abnormal . GRAN MAT (NEUT) % 49.0 % (test code = 770-8) IMM GRAN % (test code 0.30 % = 5074254591) LYMPH % (test code = 35.0 % 736-9) MONO % (test code = 13.3 % 5905-5) EOS % (test code = 1.6 % 713-8) BASO % (test code = 0.8 % 706-2) GRAN MAT x10^3(ANC) 1.85 10*3/uL 1.88-7.09 L (test code = 6514795956) IMM GRAN x10^3 (test 0.00-0.06 code = 3689853850) LYMPH x10^3 (test code 1.32 10*3/uL 1.32-3.29 = 731-0) MONO x10^3 (test code 0.50 10*3/uL 0.33-0.92 = 742-7) EOS x10^3 (test code = 0.06 10*3/uL 0.03-0.39 711-2) BASO x10^3 (test code 0.03 10*3/uL 0.01-0.07 = 704-7) Lab Interpretation Abnormal (test code = 51293-1) [facility] hospital ([facility])2022-03-20 23:49:30 Test Item Value Reference Range Interpretation Comments KEPPRA (test code = 34 ug/mL 12-46 3492101974) LIA (test code = LIA) Therapeutic range: 12-46 ?g/mL ? ?Toxic: Not well established.Test developed and characteristics determined by [facility]. Lab Interpretation Normal (test code = 47864-6) General acute hospital ([facility])2022-03-20 23:49:30 Test Item Value Reference Range Interpretation Comments KEPPRA (test code = 34 ug/mL 12-46 1658621780) LIA (test code = LIA) Therapeutic range: 12-46 ?g/mL ? ?Toxic: Not well established.Test developed and characteristics determined by [facility]. Lab Interpretation Normal (test code = 57953-4) [facility] 23:49:30 Test Item Value Reference Range Interpretation Comments KEPPRA (test code = 34 ug/mL 12-46 9879920184) LIA (test code = LIA) Therapeutic range: 12-46 ?g/mL ? ?Toxic: Not well established.Test developed and characteristics determined by [facility]. Lab Interpretation Normal (test code = 84236-7) [id number] 23:45:17 Test Item Value Reference Range Interpretation Comments PREG SERUM (test code Negative = 4256505608) LIA (test code = LIA) Less than 10 IU/L. ?If low titer or ectopic is suspected, resubmit specimen in 48-72 hours. [facility] [id number] 23:45:17 Test Item Value Reference Range Interpretation Comments PREG SERUM (test code Negative = 4821762093) LIA (test code = LIA) Less than 10 IU/L. ?If low titer or ectopic is suspected, resubmit specimen in 48-72 hours. [facility] [id number] 23:45:17 Test Item Value Reference Range Interpretation Comments PREG SERUM (test code Negative = 8491287326) LIA (test code = LIA) Less than 10 IU/L. ?If low titer or ectopic is suspected, resubmit specimen in 48-72 hours. [facility]. METABOLIC PANEL ([id number])2022-03-20 23:45:07 Test Item Value Reference Range Interpretation Comments NA (test code = 140 mmol/L 135-145 9328125403) K (test code = 3.6 mmol/L 3.5-5.0 7495268863) CL (test code = 108 mmol/L 98-108 3810570938) CO2 TOTAL (test code 24 mmol/L 23-31 = 0102964444) AGAP (test code = 2-16 0928856057) BUN (test code = 10 mg/dL 7-23 3487615710) GLUCOSE (test code = 82 mg/dL 70-110 4721371581) CREATININE (test code 0.62 mg/dL 0.50-1.04 = 0990088243) TOTAL BILI (test code 1.1 mg/dL 0.1-1.1 = 8265315979) CALCIUM (test code = 8.8 mg/dL 8.6-10.6 0689808056) T PROTEIN (test code 6.9 g/dL 6.3-8.2 = 4259235924) ALBUMIN (test code = 4.4 g/dL 3.5-5.0 9096085882) ALK PHOS (test code = 78 U/L 34-122 5945758203) ALTv (test code = 19 U/L 5-35 1742-6) AST(SGOT) (test code 21 U/L 13-40 = 7196552890) eGFR (test code = mL/min/1.73m2 7047908316) LIA (test code = LIA) Association of [...] or urine or abnormalities in imaging tests). [facility]. METABOLIC PANEL ([id number])2022-03-20 23:45:07 Test Item Value Reference Range Interpretation Comments NA (test code = 140 mmol/L 135-145 6392032898) K (test code = 3.6 mmol/L 3.5-5.0 8555868489) CL (test code = 108 mmol/L 98-108 9020702892) CO2 TOTAL (test code 24 mmol/L 23-31 = 9807683196) AGAP (test code = 2-16 9950665254) BUN (test code = 10 mg/dL 7-23 2020067290) GLUCOSE (test code = 82 mg/dL 70-110 2551522650) CREATININE (test code 0.62 mg/dL 0.50-1.04 = 6543246671) TOTAL BILI (test code 1.1 mg/dL 0.1-1.1 = 3859407071) CALCIUM (test code = 8.8 mg/dL 8.6-10.6 7045670691) T PROTEIN (test code 6.9 g/dL 6.3-8.2 = 2044822033) ALBUMIN (test code = 4.4 g/dL 3.5-5.0 7876626780) ALK PHOS (test code = 78 U/L 34-122 7536932800) ALTv (test code = 19 U/L 5-35 2-6) AST(SGOT) (test code 21 U/L 13-40 = 9616165721) eGFR (test code = mL/min/1.73m2 7114499623) LIA (test code = LIA) Association of [...] or urine or abnormalities in imaging tests). [facility]. METABOLIC PANEL ([id number])2022-03-20 23:45:07 Test Item Value Reference Range Interpretation Comments NA (test code = 140 mmol/L 135-145 6304484425) K (test code = 3.6 mmol/L 3.5-5.0 5618806391) CL (test code = 108 mmol/L 98-108 8468676634) CO2 TOTAL (test code 24 mmol/L 23-31 = 0722383985) AGAP (test code = 2-16 8688493221) BUN (test code = 10 mg/dL 7-23 8578571711) GLUCOSE (test code = 82 mg/dL 70-110 9502238821) CREATININE (test code 0.62 mg/dL 0.50-1.04 = 5575286218) TOTAL BILI (test code 1.1 mg/dL 0.1-1.1 = 4316845226) CALCIUM (test code = 8.8 mg/dL 8.6-10.6 3506632290) T PROTEIN (test code 6.9 g/dL 6.3-8.2 = 1547763785) ALBUMIN (test code = 4.4 g/dL 3.5-5.0 4554098414) ALK PHOS (test code = 78 U/L 34-122 0874009917) ALTv (test code = 19 U/L 5-35 1742-6) AST(SGOT) (test code 21 U/L 13-40 = 3180668263) eGFR (test code = mL/min/1.73m2 2918582976) LIA (test code = LIA) Association of [...] or urine or abnormalities in imaging tests). [facility] [id number] 23:11:00 Test Item Value Reference Range Interpretation Comments POCT PREG (test code = 1605) negative On board controls acceptable with present C Line (test code = 3574) POCT PREG LOT # (test code = 3575) [id number] POCT PREG TEST DATE (test code = 3576) Lab Interpretation (test code = Normal 87629-1) [facility] [id number] 22:55:05 Test Item Value Reference Range Interpretation Comments PREG SERUM (test code Negative = 5361052980) LIA (test code = LIA) Less than 10 IU/L. ?If low titer or ectopic is suspected, resubmit specimen in 48-72 hours. [facility] GLUCOSE (AUTOMATED)2022-01-30 21:48:29 Test Item Value Reference Range Interpretation Comments POCT GLU (test code = 1836329388) 96 mg/dL 70-110 Lab Interpretation (test code = Normal 80994-8) [facility] Date/Time Note Provider Source 2022-10-30 Formatting of this note might be differe nt from the original. Patsy Reed [facility] 04:20:49-00:[address] MD Garvin aw are. Pt is also wanted to leave AMA. RN educated patient risk. Pt verbalized understanding and still wants to go AMA. MD Garvin aware. AMA form signed. System Electronically signed by Patsy Reed at 10/30 4:22 AM CDT 2022-10-30 Formatting of this note might be differe nt from the original. Ignacia Srinivasan RN [facility] 01:57:07-00:00 Neeraj Saldaña [phone] Syst em "
[2022-12-14 15:38] LABS: Absolute Lymphocytes (CBC) 1.7 K/uL (0.7-4.9); Hematocrit 41.5 % (36.0-45.0); Lymphocytes % 27.2 % (15.3-44.8); MCV 86.4 fL (80-100); MPV 8.8 fL (7.6-11.3); Platelets 240 thou/uL (152-406)
--- NOTE | 2022-12-14 15:41 | RAD REPORT ---
EXAM DESCRIPTION: CT - Head Brain Wo Cont - 12/14/2022 3:28 pm CLINICAL HISTORY: SEIZURE COMPARISON: Head Brain Wo Cont dated 09/21/2022; Head Brain Wo Cont dated 03/31/2022 TECHNIQUE: All CT scans are performed using dose optimization technique as appropriate and may inclu de automated exposure control or mA/KV adjustment according to patient size. FINDINGS: No intracranial hemorrhage, hydrocephalus or extra-axial fluid collection.No areas of brai n edema or evidence of midline shift. Left-sided suboccipital craniotomy with unchanged large CSF att enuation collection along the left aspect of the cerebellar hemisphere. The paranasal sinuses and mastoids are clear. The calvarium is intact. IMPRESSION: No acute intracranial abnormality.
[2022-12-14] MEDS ORDERED: LORazepam 2 MG/ML VIAL ONE ×2 (15:53→17:18)
[2022-12-14 15:57] LABS: Albumin 3.9 g/dL (3.4-5.0); Bilirubin Total 0.2 mg/dL (0.2-1.0); Phenytoin (Dilantin) Level 3.9 mcg/mL (10.0-20.0); Potassium 3.4 mEq/L (3.5-5.1); Protein, Total 7.2 g/dL (6.4-8.2)
[2022-12-14] MEDS ORDERED: FOSPHENYTOIN PE 500 MG/10 ML VIAL ONE (17:22)
[2022-12-14] MEDS ORDERED: NA CHLORIDE 0.9% 100 ML ONE (17:22)
--- NOTE | 2022-12-14 18:25 | RAD REPORT ---
EXAM DESCRIPTION: MRI - Brain Wo Cont - 12/14/2022 6:15 pm CLINICAL HISTORY: seizure COMPARISON: Head Brain Wo Cont dated 09/21/2022; Head Brain Wo Cont dated 03/31/2022 TECHNIQUE: Sagittal T1-weighted images were obtained along with PD/heavily T2-weighted and T2-FLAIR images. Axial DWI and ADC mapping sequences were also obtained along with coronal heavily T2-weighted images were obtained. FINDINGS: No intracranial hemorrhage, mass or acute infarction. Signal voids are seen as a normal fi nding in the major intracranial vessels. No significant white matter disease. Large fluid intensity p osterior fossa structure measuring approximately 9.6 cm x 2.8 cm is unchanged since 09/21/2022. This results in some mild shift in the posterior cranial fossa from [id number], also similar. Prior lef t suboccipital craniotomy. Mastoid air cells and paranasal sinuses are clear. IMPRESSION: No acute intracranial abnormality. Unchanged fluid intensity posterior cranial fossa str ucture could represent post-operative changes or recurrent arachnoid cyst.
[2022-12-14] MEDS ORDERED: PHENYTOIN ER 100 MG CAP PO ONE (19:12)
--- NOTE | 2022-12-14 19:19 | EDPHYS ---
Physician Documentation [facility] Name: Nona Lee Age: 22 yrs Sex: Female : 2000 Arrival Date: 12/14/2022 Time: 15:02 Bed 15 Private MD: ED Physician Elba Rosen HPI: 12/14 15:31 This 22 yrs old Female presents to ER via Unassigned with complaints of sp3 seizures x 6. 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 She states no changes in medications or missed doses or any other new changes in her life. 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 She denies any other symptoms including headache, fever, URI symptoms, neck pain, chest pain, shortness of breath, back pain, abdominal pain, nausea, vomiting, diarrhea, rash, known sick contacts, travel history, new strange or new foods or any other known seizure threshold lowering events on ROS at this time. Patient had 1 witnessed seizure in the parking lot here at the hospital. She has had no seizures in her patient room. 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 She has had no further workup since then.. Historical: - Allergies: 15:48 Fosphenytoin; mb9 15:48 Lasix; mb9 - PMHx: 15:48 Anxiety; Asthma; BRAIN TUMOR; Breast tumors; seizures; mb9 - PSHx: 15:48 brain surgery; Lumpectomy of breast; RIGHTCLAVICLE; Tonsillectomy; mb9 - Immunization history:: Adult Immunizations up to date. - Social history:: Smoking status: Patient denies any tobacco usage or history of. Patient/guardian denies using alcohol. ROS: 15:35 Constitutional: Negative for fever, chills, and weight loss, Eyes: Negative for injury, sp3 pain, redness, and discharge, ENT: Negative for injury, pain, and discharge, Neck: Negative for injury, pain, and swelling, Cardiovascular: Negative for chest pain, palpitations, and edema, Respiratory: Negative for shortness of breath, cough, wheezing, and pleuritic chest pain, Abdomen/GI: Negative for abdominal pain, nausea, vomiting, diarrhea, and constipation, Back: Negative for injury and pain, MS/Extremity: Negative for injury and deformity, Skin: Negative for injury, rash, and discoloration, Psych: Negative for depression, anxiety, suicide ideation, homicidal ideation, and hallucinations, Allergy/Immunology: Negative for hives, rash, and allergies, Endocrine: Negative for neck swelling, polydipsia, polyuria, polyphagia, and marked weight changes, Hematologic/Lymphatic: Negative for swollen nodes, abnormal bleeding, and unusual bruising. 15:35 All other systems are negative. Exam: 15:35 Constitutional: This is a well developed, well nourished patient who is awake, alert, sp3 and in no acute distress. Head/Face: Normocephalic, atraumatic. Eyes: Pupils equal round and reactive to light, extra-ocular motions intact. Lids and lashes normal. Conjunctiva and sclera are non-icteric and not injected. Cornea within normal limits. Periorbital areas with no swelling, redness, or edema. ENT: Nares patent. No nasal discharge, no septal abnormalities noted. External auditory canals are clear. Oropharynx with no redness, swelling, or masses, exudates, or evidence of obstruction, uvula midline. Mucous membranes moist. Neck: Trachea midline, no thyromegaly or masses palpated, and no cervical lymphadenopathy. Supple, full range of motion without nuchal rigidity, or vertebral point tenderness. No Meningismus. Chest/axilla: Normal chest wall appearance and motion. Nontender with no deformity. No lesions are appreciated. Cardiovascular: Regular rate and rhythm with a normal S1 and S2. No gallops, murmurs, or rubs. Normal PMI, no JVD. No pulse deficits. Respiratory: Lungs have equal breath sounds bilaterally, clear to auscultation and percussion. No rales, rhonchi or wheezes noted. No increased work of breathing, no retractions or nasal flaring. Abdomen/GI: Soft, non-tender, with normal bowel sounds. No distension or tympany. No guarding or rebound. No evidence of tenderness throughout. Back: No spinal tenderness. No costovertebral tenderness. Full range of motion. Skin: Warm, dry with normal turgor. Normal color with no rashes, no lesions, and no evidence of cellulitis. MS/ Extremity: Pulses equal, no cyanosis. Neurovascular intact. Full, normal range of motion. Neuro: Awake and alert, GCS 15, oriented to person, place, time, and situation. Cranial nerves II-XII grossly intact. Motor strength 5/5 in all extremities. Sensory grossly intact. Cerebellar exam normal. Normal gait. Psych: Awake, alert, with orientation to person, place and time. Behavior, mood, and affect are within normal limits. 15:35 ECG was reviewed by the Attending Physician. EKG demonstrates normal sinus rhythm at 66 bpm with normal intervals, normal QRS, normal axis, normal axis ST segments without evidence of acute ischemia. There is an isolated inverted T in lead III which I think is lead placement. Vital Signs: 16:06 BP 114 / 73; Pulse 63; Resp 18; Temp 98.3; Pulse Ox 100% on R/A; mb9 16:06 Weight 52.16 kg; Height 5 ft. 4 in. ; Pain 0/10; mb9 16:07 BP 114 / 73; Pulse 63; Resp 18; Pulse Ox 100% on R/A; mb9 16:50 BP 102 / 60; Pulse 58; Resp 18; Pulse Ox 98% on R/A; mb9 18:52 BP 105 / 83; Pulse 72; Resp 18; Pulse Ox 100% on R/A; ld1 16:06 Body Mass Index 19.74 (52.16 kg, 162.56 cm) mb9 16:06 Pain Scale: Adult mb9 MDM: 15:13 Patient medically screened. sp3 15:36 Data reviewed: vital signs, nurses notes, lab test result(s), EKG, radiologic studies. sp3 ED course: 22-year-old female with known epileptic history who after a long period of not having seizures now has had 6 in 1 day. 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 At this time imaging is indicated and will consist of a CT scan of the head as well as MRI of the brain and entire spine. This has been coordinated with MRI will be performed while she is in ED patient. Laboratory values are also pending. Seizure precautions were in place and she has been administered 1 mg of Ativan IV. Will supplement with fosphenytoin and/or Keppra if needed. Currently she is seizure-free while she has been in the ED. She will be kept n.p.o. disposition will be based on workup and patient course. Dr. Puga is her neurologist with an additional neurologist in the [facility].. 17:04 ED course: Laboratory values reviewed and demonstrate no significant abnormality. CT sp3 scan of the head is normal. MRIs of the brain and entire spine are pending will be followed up by a different provider on signout.. 17:10 ED course: Dilantin level was 3.9 and so 1 g fosphenytoin will be administered to get sp3 patient therapeutic.. 12/14 15:15 Order name: CBC with Diff; Complete Time: 16:02 sp3 12/14 15:15 Order name: CMP; Complete Time: 16:02 sp3 12/14 15:15 Order name: Dilantin; Complete Time: 16:02 sp3 12/14 15:15 Order name: CT Head Brain wo Cont; Complete Time: 16:02 sp3 12/14 15:44 Order name: Brain Wo Cont; Complete Time: 18:52 EDMS 12/14 15:15 Order name: IV Saline Lock; Complete Time: 15:25 sp3 12/14 15:15 Order name: Labs collected and sent; Complete Time: 15:25 sp3 12/14 15:15 Order name: Pulse Ox Monitoring; Complete Time: 15:25 sp3 Administered Medications: 15:47 Drug: Ativan IVP 1 mg Route: IVP; Site: right antecubital; mb9 17:09 Drug: Ativan IVP 1 mg Route: IVP; Site: right antecubital; mb9 18:29 Follow up: Response: No adverse reaction mb9 18:37 Not Given (Physician Discretion): Ativan IVP 1 mg IVP once ld1 18:52 Not Given (Physician Discretion): Fosphenytoin IVPB 1 grams IVPB once; (mix in 50 to ld1 100mL NS) 19:05 Drug: Phenytoin Sodium Extended PO 300 mg Route: PO; mb9 19:39 Follow up: Response: No adverse reaction; Marked relief of symptoms pf1 Disposition Summary: 12/14/22 19:18 Discharge Ordered Location: Home cp3 Condition: Stable cp3 Diagnosis - Epileptic seizures related to external causes cp3 Followup: cp3 - With: Stef Puga MD - When: - Reason: Recheck today's complaints Discharge Instructions: - Discharge Summary Sheet cp3 - Seizure, Adult cp3 Forms: - Medication Reconciliation Form cp3 - Thank You Letter cp3 - Antibiotic Education cp3 - Prescription Opioid Use cp3 - Patient Portal Instructions cp3 Signatures: Dispatcher [employer] Elba Meraz MD MD cp3 Momo Robb MD MD sp3 Nena Lara RN RN mb9 Yasemin Arguello RN ld1 Gwendolyn Groves RN pf1 Corrections: (The following items were deleted from the chart) 15:49 15:48 PSHx: Appendectomy; mb9 mb9
--- NOTE | 2022-12-14 19:19 | ER ---
Nurse's Notes [facility] Name: Nona Lee Age: 22 yrs Sex: Female : 2000 Arrival Date: 12/14/2022 Time: 15:02 Bed 15 Private MD: Diagnosis: Epileptic seizures related to external causes Presentation: 12/14 16:06 Chief complaint: Patient states: 6 seizures today - pt reports having seizures at work mb9 today then 1 prior to ER visit. Pt takes dilantin and keppra daily for seizures. Reports having brain tumor and spinal tumor. Coronavirus screen: At this time, the client does not indicate any symptoms associated with coronavirus-19. Ebola Screen: No symptoms or risks identified at this time. Initial Sepsis Screen: Does the patient meet any 2 criteria? No. Patient's initial sepsis screen is negative. Does the patient have a suspected source of infection? No. Patient's initial sepsis screen is negative. Risk Assessment: Do you want to hurt yourself or someone else? Patient reports no desire to harm self or others. Onset of symptoms was December 14, 2022 at 16:07. 16:06 Method Of Arrival: Ambulatory mb9 16:06 Acuity: LUBNA 3 mb9 Triage Assessment: 16:07 General: Appears in no apparent distress. comfortable, Behavior is calm, cooperative, mb9 appropriate for age. Pain: Denies pain. EENT: No signs and/or symptoms were reported regarding the EENT system. Neuro: Seizure activity reported prior to arrival. Cardiovascular: Capillary refill < 3 seconds Patient's skin is warm and dry. Respiratory: Airway is patent Respiratory effort is even, unlabored. GI: Abdomen is flat, non-distended. : No signs and/or symptoms were reported regarding the genitourinary system. Derm: No signs and/or symptoms reported regarding the dermatologic system. Musculoskeletal: No signs and/or symptoms reported regarding the musculoskeletal system. Historical: - Allergies: 15:48 Fosphenytoin; mb9 15:48 Lasix; mb9 - PMHx: 15:48 Anxiety; Asthma; BRAIN TUMOR; Breast tumors; seizures; mb9 - PSHx: 15:48 brain surgery; Lumpectomy of breast; RIGHTCLAVICLE; Tonsillectomy; mb9 - Immunization history:: Adult Immunizations up to date. - Social history:: Smoking status: Patient denies any tobacco usage or history of. Patient/guardian denies using alcohol. Screenin:08 [facility] ED Fall Risk Assessment (Adult) History of falling in the last 3 months, mb9 including since admission No falls in past 3 months (0 pts). Abuse screen: Denies threats or abuse. Denies injuries from another. Nutritional screening: No deficits noted. Tuberculosis screening: No symptoms or risk factors identified. Assessment: 16:08 Reassessment: See triage assessment. mb9 17:00 Reassessment: Patient appears in no apparent distress at this time. No changes from ld1 previously documented assessment. Patient and/or family updated on plan of care and expected duration. Pain level reassessed. 18:52 Reassessment: No changes from previously documented assessment. Patient is alert, ld1 oriented x 3, equal unlabored respirations, skin warm/dry/pink. Vital Signs: 16:06 BP 114 / 73; Pulse 63; Resp 18; Temp 98.3; Pulse Ox 100% on R/A; mb9 16:06 Weight 52.16 kg; Height 5 ft. 4 in. ; Pain 0/10; mb9 16:07 BP 114 / 73; Pulse 63; Resp 18; Pulse Ox 100% on R/A; mb9 16:50 BP 102 / 60; Pulse 58; Resp 18; Pulse Ox 98% on R/A; mb9 18:52 BP 105 / 83; Pulse 72; Resp 18; Pulse Ox 100% on R/A; ld1 16:06 Body Mass Index 19.74 (52.16 kg, 162.56 cm) mb9 16:06 Pain Scale: Adult mb9 ED Course: 15:04 Patient arrived in ED. mb9 15:04 Momo Robb MD is Attending Physician. sp3 15:25 Nena Lara RN is Primary Nurse. mb9 15:29 CT Head Brain wo Cont In Process Unspecified. EDMS 15:40 No provider procedures requiring assistance completed. Inserted saline lock: 20 gauge mb9 in right antecubital area, using aseptic technique. Blood collected. 15:48 Arm band placed on. mb9 15:48 Placed in gown. Bed in low position. Call light in reach. Side rails up X 1. Client mb9 placed on continuous cardiac and pulse oximetry monitoring. NIBP monitoring applied. armature bander on. 16:07 Triage completed. mb9 18:17 Brain Wo Cont In Process Unspecified. EDMS 18:51 Attending Physician role handed off by Momo Robb MD cp3 18:51 Elba Rosen MD is Attending Physician. cp3 19:06 Report received from NORBERTO Hazel. mb9 19:17 Stef Puga MD is Referral Physician. cp3 19:37 Provided Education on: medication administration. pf1 19:37 IV discontinued, intact, bleeding controlled, No redness/swelling at site. Pressure pf1 dressing applied. Administered Medications: 15:47 Drug: Ativan IVP 1 mg Route: IVP; Site: right antecubital; mb9 17:09 Drug: Ativan IVP 1 mg Route: IVP; Site: right antecubital; mb9 18:29 Follow up: Response: No adverse reaction mb9 18:37 Not Given (Physician Discretion): Ativan IVP 1 mg IVP once ld1 18:52 Not Given (Physician Discretion): Fosphenytoin IVPB 1 grams IVPB once; (mix in 50 to ld1 100mL NS) 19:05 Drug: Phenytoin Sodium Extended PO 300 mg Route: PO; mb9 19:39 Follow up: Response: No adverse reaction; Marked relief of symptoms pf1 Medication: 16:08 VIS not applicable for this client. mb9 Outcome: 19:18 Discharge ordered by . cp3 19:37 Discharged to home ambulatory, with family. pf1 19:37 Condition: improved 19:37 Discharge instructions given to patient, family, Instructed on discharge instructions, follow up and referral plans. Demonstrated understanding of instructions, follow-up care. 19:39 Patient left the ED. pf1 Signatures: Dispatcher [employer] Elba Meraz MD MD cp3 Yasemin Arguello RN RN ld1 Momo Robb MD MD sp3 Nena Lara RN RN mb9 Gwendolyn Groves RN RN pf1 Corrections: (The following items were deleted from the chart) 15:49 15:48 PSHx: Appendectomy; mb9 mb9
[2022-12-14 20:01] VITALS: TEMP 98.3
[2022-12-14 20:05] VITALS: BP 105/83; O2SAT 100
--- NOTE | 2022-12-15 14:13 | EKG ---
Test Date: 2022-12-14 Test Time: 15:22:01 Tow Operator: CLARISSA MEASUREMENT RESULTS: Intervals: Rate: 66 CT: 144 QRSD: 84 QT: 386 QTc: 404 [place]: P: 39 CT: 144 QRS: 80 T: 28 INTERPRETIVE STATEMENTS: Normal sinus rhythm Normal ECG Compared to ECG 09/21/2022 20:44:56 Sinus arrhythmia no longer present Electronically Signed On 12-15-22 14:10:48 CDT by Darrel Tay
== END 2022-12-14 19:39 | disposition home or self-care (01) ==
LOC: ER 15:02
DX: G40.509 Epileptic seizures related to external causes, not intractable, without status epilepticus (principal); Z86.011 Personal history of benign neoplasm of the brain; Z88.8 Allergy status to other drugs, medicaments and biological substances
CPT/HCPCS: 85025; 36415; 80185; 80053; 70450; 70551; Q2009; 93005